=== PATIENT | female | born 1950 | race Caucasian/White ===

== ENCOUNTER 2022-09-12 08:32 | Outpatient (OUT) | payer MEDICARE, OTHER, SELFPAY ==
[2022-09-12 09:19] LABS: Basophils Absolute Auto 0.1 10^3/uL (0.0-0.1); Basophils Percent Auto 0.8 % (0.2-2.0); Eosinophils Percent Auto 0.2 % (0.9-7.0); Hematocrit 40.2 % (36.0-48.0); Hemoglobin 13.4 g/dL (12.0-16.0); Immature Granulocytes Abs Auto 0.03 10^3/uL (0.00-0.03); Immature Granulocytes Pct Auto 0.5 % (0.0-0.5); Lymphocytes Percent Auto 15.3 % (20.5-60.0); Mean Corpuscular HGB Conc 33.3 g/dL (29.9-35.2); Mean Corpuscular Hemoglobin 30.2 pg (26.7-34.0); Mean Corpuscular Volume 90.5 fL (81.0-99.0); Mean Platelet Volume 10.3 fL (9.5-13.5); Monocytes Absolute Auto 0.7 10^3/uL (0.3-0.8); Neutrophils Absolute Auto 4.8 10^3/uL (1.4-6.5); Neutrophils Percent Auto 73.2 % (43.0-75.0); Platelet Count 203 10^3/uL (150-450); Red Blood Count 4.44 10^6/uL (4.20-5.40); Red Cell Distribution Width 14.5 % (11.0-15.0); White Blood Count 6.6 10^3/uL (4.0-11.0)
--- NOTE | 2022-09-12 09:48 | MM_ITS ---
Patient: ALEXANDRA GARDNER Exam Date: 09/12/2022 : 1950 Gender:F Ordering : DR Danyell Kelly M.D. Admission #: [id number] Family : Order #: [id number] CLICK HERE TO VIEW EXAM RADIOLOGY REPORT PROCEDURE: MM TOMOSYNTHESIS SCREENING BI COMPARISON: MG MAMM SCREEN 3D [place] CAD, 05/22/2021. MG MAMM SCREEN [place] W CAD, 05/19/2018. MG MAMM SCREEN [place] W CAD, 05/16/2017. MG MAMM [place] SCRN W CAD DIG, 03/28/2015. INDICATIONS: Screening Calculator Name NCI Breast Cancer Risk Assessment Tool 5 Year Breast Cancer Risk 2.20% Lifetime Breast Cancer Risk 5.00% Personal Breast Cancer No Personal Ovarian Cancer No Treatments None Family Cancers None LOCATION: [facility] BREAST COMPOSITION: Scattered areas fibroglandular density. FINDINGS: DIAGNOSTIC CATEGORY 2--BENIGN FINDING: RIGHT BREAST: No significant suspicious finding. Stable asymmetries and lymph node. No significant change has occurred. LEFT BREAST: No significant suspicious finding. No significant change has occurred. RECOMMENDATIONS: ROUTINE MAMMOGRAM AND CLINICAL EVALUATION IN 12 MONTHS. PLEASE NOTE: A NORMAL MAMMOGRAM DOES NOT EXCLUDE THE POSSIBILITY OF BREAST CANCER. A CLINICALLY SUSPICIOUS PALPABLE LUMP SHOULD BE BIOPSIED. Dictated by: Valente Sandhu M.D. on 09/13/2022 at 15:37 Approved by: Valente Sandhu M.D. on 09/13/2022 at 15:41
--- NOTE | 2022-09-12 09:49 | XR_ITS ---
The [address] [address] Patient Name: ALEXANDRA GARDNER MRN: [id number] date: 1950 Sex: F Assigned Patient Location: [facility] Current Patient Location: [facility] Accession/Order Number: [id number] Exam Date: 09/12/2022 10:00 Report Date: 09/12/2022 11:01 At the request of: LAURITA MORALES Procedure: XR foot RT min 3V PROCEDURE: XR foot RT min 3V HISTORY: Pain In Right Foot M79.671 COMPARISON: None. FINDINGS: BONES:No fracture, acute abnormality, or significant arthropathy. SOFT TISSUES:Mild soft tissue swelling. EFFUSION:None visible. OTHER: Negative. XR/XR foot RT min 3V IMPRESSION: 1. No acute bone abnormality. Minimal degenerative changes. 2. Mild/moderate soft tissue swelling of uncertain etiology. Electronically authenticated by: FUENTES BARRETO Date: 09/12/2022 11:01
[2022-09-12 10:29] LABS: Alanine Aminotransferase 32 U/L (14-59); Albumin Level 3.8 g/dL (3.4-5.0); Alkaline Phosphatase 80 U/L (46-116); Anion Gap 11.9; Aspartate Amino Transferase 21 U/L (15-37); BUN Creatinine Ratio 13.2; Bilirubin Total 0.5 mg/dL (0.2-1.0); Calcium 9.1 mg/dL (8.5-10.1); Chloride 105 mmol/L (98-107); Chol HDL Ratio 3.3; Cholesterol 189 mg/dL (<=200); Estimated GFR (African America >60 (>=60); Estimated GFR (Non-African Ame >60 (>=60); Globulin 3.7 g/dL; Glucose 114 mg/dL (74-106); HDL Cholesterol 57 mg/dL (40-60); LDL Cholesterol Calculated 107.8 mg/dL; Potassium 3.9 mmol/L (3.5-5.1); Sodium 137 mmol/L (136-145); Thyroid Stimulating Hormone 1.772 uIU/mL (0.358-3.740); Total Protein 7.5 g/dL (6.4-8.2); Triglycerides 121 mg/dL (<=150); VLDL CHOLESTEROL 24.2 mg/dL
[2022-09-12 10:34] LABS: Free T4 1.07 ng/dL (0.76-1.46)
== END 2022-09-12 08:33 | disposition home or self-care (01) ==
LOC: MAMMO 08:32
PROVIDERS: PCP Family Medicine; Visit Provider Family Medicine
DX: Z12.31 Encounter for screening mammogram for malignant neoplasm of breast (principal); E03.9 Hypothyroidism, unspecified; E78.5 Hyperlipidemia, unspecified; M79.671 Pain in right foot
CPT/HCPCS: 36415; 73630; 77063; 77067; 80053; 80061; 84439; 84443; 85025

== ENCOUNTER 2022-09-26 14:48 | Outpatient (OUT) | payer MEDICARE, OTHER, SELFPAY ==
--- NOTE | 2022-09-26 | XR_ITS ---
The [address] [address] Patient Name: ALEXANDRA GARDNER MRN: [id number] date: 1950 Sex: F Assigned Patient Location: [facility] Current Patient Location: Accession/Order Number: [id number] Exam Date: 09/26/2022 15:19 Report Date: 09/27/2022 10:33 At the request of: ADA ROLLINS Procedure: XR foot RT min 3V PROCEDURE: XR foot RT min 3V DATE: 09/26/2022 2:19 PM CDT COMPARISONS: 09/12/2022 CLINICAL INDICATION: RIGHT FOOT PAIN FINDINGS: There is no evidence of fractures or other acute osseous abnormalities. There is small spur off the posterior inferior os calcis, stable. XR/XR foot RT min 3V IMPRESSION: Right foot radiographs show no evidence of acute abnormalities. Stable heel spur is noted. Electronically authenticated by: BOLA SCHWARTZ Date: 09/27/2022 10:33
== END 2022-09-26 14:49 | disposition home or self-care (01) ==
LOC: RAD 14:49
PROVIDERS: PCP Family Medicine; Visit Provider Podiatrist Foot & Ankle Surgery
DX: M79.671 Pain in right foot (principal)
CPT/HCPCS: 73630

== ENCOUNTER 2022-10-10 08:20 | Outpatient (RCR) | payer MEDICARE, OTHER, SELFPAY | END 2022-10-11 11:34 | disposition home or self-care (01) | LOC: PT 08:20 | PROVIDERS: PCP Family Medicine; Visit Provider Podiatrist Foot & Ankle Surgery | DX: M19.071 Primary osteoarthritis, right ankle and foot (principal); M79.671 Pain in right foot; R26.89 Other abnormalities of gait and mobility; R26.9 Unspecified abnormalities of gait and mobility | CPT/HCPCS: 97110; 97161 ==

== ENCOUNTER 2023-02-09 11:00 | Emergency (ER) | payer MEDICARE, OTHER, SELFPAY ==
[2023-02-09 11:08] VITALS: BP 119/64; PULSE 74; RESP 18; TEMP 36.5; O2SAT 96; BMI 33.4
--- NOTE | 2023-02-09 11:16 | XR_ITS ---
The [address] [address] Patient Name: ALEXANDRA GARDNER MRN: [id number] date: 1950 Sex: F Assigned Patient Location: ED[facility]MAIN Current Patient Location: ED[facility]MAIN Accession/Order Number: [id number] Exam Date: 02/09/2023 11:30 Report Date: 02/09/2023 12:30 At the request of: MELITA LAGOS Procedure: XR knee LT 4V EXAM: XR knee LT 4V HISTORY: Pain COMPARISON: None FINDINGS: There are mild degenerative changes with joint space narrowing, subchondral sclerosis and osteophyte formation. There is no evidence of an acute fracture, subluxation or bony destruction. Chondrocalcinosis of the menisci is observed. XR/XR knee LT 4V IMPRESSION: Mild degenerative joint disease. Electronically authenticated by: BEBO DURHAM Date: 02/09/2023 12:30
[2023-02-09] MEDS: KETOROLAC TROMETHAMINE 30 MG/ML VIAL 15 MG IM (13:08)
[2023-02-09 13:17] VITALS: BP 148/86; PULSE 78; RESP 18
--- NOTE | 2023-02-10 07:34 | ED_ITS ---
HPI - General Adult General Chief complaint: Extremity Injury, Lower Stated complaint: LOWER EXTREMITY INJURY R KNEE Time Seen by Provider: 02/09/23 11:27 Source: patient Mode of arrival: walk-in Limitations: no limitations History of Present Illness HPI narrative: The patient is coming to the ER with a left knee pain that started hurting when she was trying to get into the bathroom she mentioned that her knee buckled. She had no fall no other injuries and she is able to walk but still with pain in her knee no other complaints Related Data Previous Rx's Medication Instructions Recorded meloxicam 7.5 mg tablet 7.5 mg PO DAILY PRN pain #10 tabs 02/09/23 Allergies Allergy/AdvReac Type Severity Reaction Status Date / Time No Known Drug Allergies Allergy Verified 02/09/23 11:10 Review of Systems ROS Status of ROS 10 or more systems reviewed and unremark able except as noted in history and below Exam Narrative Exam Narrative: Nurses notes and vital signs reviewed and patient is not hypoxic. General: Well-appearing and in no apparent distress. Skin: Warm, dry, no pallor noted. No rash. Head: Normocephalic, atraumatic. Neck: Supple, non-tender. Eye: Pupils are equal, round and EOMI. No scleral icterus. Ears, Nose, Mouth, and Throat: TM are clear, no nasal mucosal hypertrophy. Oral mucosa is moist, no posterior oropharynx erythema, uvula is mid-line Cardiovascular: Regular Rate and Rhythm without murmur, gallop or rub. Respiratory: No accessory muscle use or respiratory distress. Lungs are clear to auscultation, no wheezing, rales or rhonchi Chest Wall: no tenderness Back: No midline thoracic or lumbar vertebral tenderness. No CVA tenderness Musculoskeletal: Right knee examination benign left knee examination showed that the patient have tenderness on flexion of the knee but other than this the patient have no significant pathology. GI: Abdomen is soft, non-distended. Normal bowel sounds. No masses appreciated. No tenderness to palpation. No rebound, guarding, or rigidity noted. Neurological: A&O x4. No cranial nerve dysfunction observed. No truncal ataxia. Moves all extremities. Sensation intact. Psychiatric: Cooperative and interactive. Normal mood and affect. Constitutional Vital Signs, click to edit/add: Last Vital Signs Temp 97.7 F 02/09/23 11:08 Pulse 78 02/09/23 13:17 Resp 18 02/09/23 13:17 BP 148/86 H 02/09/23 13:17 Pulse Ox 96 02/09/23 11:08 O2 Del Method Room Air 02/09/23 11:08 Course Vital Signs Vital signs: Vital Signs Temperature 97.7 F 02/09/23 11:08 Pulse Rate 74 02/09/23 11:08 Respiratory Rate 18 02/09/23 11:08 Blood Pressure 119/64 02/09/23 11:08 Pulse Oximetry 96 02/09/23 11:08 Oxygen Delivery Method Room Air 02/09/23 11:08 Temperature 97.7 F 02/09/23 11:08 Pulse Rate 78 02/09/23 13:17 Respiratory Rate 18 02/09/23 13:17 Blood Pressure 148/86 H 02/09/23 13:17 Pulse Oximetry 96 02/09/23 11:08 Oxygen Delivery Method Room Air 02/09/23 11:08 Medical Decision Making MDM Narrative Medical decision making narrative: The patient x-ray showed no acute pathology and the patient will be treated as possible knee sprain with knee immobilizer and Mobic for pain Patient referred to orthopedic as outpatient The patient is to follow up with primary care physician in next 2-3 days or to return to the emergency department should any of the signs or symptoms worsen or new symptoms develop. The patient agrees with the following Diagnosis and Treatment plan and the patient will be discharged home. Discharge Plan Discharge Chief Complaint: Extremity Injury, Lower Clinical Impression: Acute knee pain Qualifiers: Laterality: left Qualified Code(s): M25.562 - Pain in left knee Patient Disposition: Home, Self-Care Time of Disposition Decision: 12:59 Condition: Good Prescriptions / Home Meds: New meloxicam 7.5 mg tablet 7.5 mg PO DAILY PRN (Reason: pain ) Qty: 10 0RF Instructions: Knee Pain (ED) Stand Alone Forms: Portal Instructions Referrals: Danyell Kelly MD [Primary Care Provider] - 1 week Valente Marino MD [Physician] - 1 week Discharge Date/Time: 02/09/23 13:19
== END 2023-02-09 13:19 | disposition home or self-care (01) ==
PROVIDERS: Emergency Provider Emergency Medicine; PCP Family Medicine
DX: M25.562 Pain in left knee (principal)
CPT/HCPCS: 73564; 96372; 99284

== ENCOUNTER 2023-04-01 09:32 | Outpatient (OUT) | payer MEDICARE, OTHER, SELFPAY ==
--- NOTE | 2023-04-01 | XR_ITS ---
The [address] [address] Patient Name: ALEXANDRA GARDNER MRN: [id number] date: 1950 Sex: F Assigned Patient Location: Current Patient Location: Accession/Order Number: [id number] Exam Date: 04/01/2023 09:38 Report Date: 04/01/2023 10:11 At the request of: FUENTES BURTON Procedure: XR knee RT 4V EXAM: XR knee RT 4V HISTORY: RIGHT KNEE PAIN COMPARISON: None. TECHNIQUE: 4 views FINDINGS: No acute fracture or dislocation. Mild degenerative change of the lateral compartment the knee joint. Unremarkable soft tissues. XR/XR knee RT 4V IMPRESSION: Mild degenerative changes as above. Electronically authenticated by: PETRA HINES Date: 04/01/2023 10:11
--- OUTSIDE RECORDS SUMMARY | 2023-04-01 09:37 | XMS_ITS | CCD ---
Author Name Unknown Address [address] [facility] [address] [place] [address] Organization [facility] Care Team Providers Care Wildlife Manager Name Role Phone MD Cy Sears Attending Provider [phone] MD Laurita Morales Primary Care Provider LAURITA MORALES Primary Care Physician DO Luis Gutierrez Attending Provider Capri ROA Attending Unavailable SALAM, Capri Attending Unavailable SALAM, Capri Attending Unavailable MORALES, DR LAURITA Solis Attending Unavailable MORALES, DR LAURITA Solis Admitting Unavailable MORALES, DR LAURITA Solis Primary Care Unavailable ESTEVAN, DR FUENTES Salas Consulting Unavailable MORALES, DR LAURITA Solis Consulting Unavailable MORALES, DR LAURITA Solis Attending Unavailable MORALES, DR LAURITA Solis Admitting Unavailable MORALES, DR LAURITA Solis Primary Care Unavailable MORALES, DR LAURITA Solis Consulting Unavailable SALAM, CAPRI Consulting Unavailable SALAM, CAPRI Admitting Unavailable SALAM, CAPRI Attending Unavailable MORALES, DR LAURITA Solis Primary Care Unavailable MORALES, DR LAURITA Solis Primary Care Unavailable MORALES, DR LAURITA Solis Admitting Unavailable MORALES, DR LAURITA Solis Consulting Unavailable MORALES, DR LAURITA Solis Attending Unavailable MORALES, DR LAURITA Solis Primary Care Unavailable ESEQUIEL, DR RADHA Whitfield Admitting Unavailable IRAHETA, DR RADHA Whitfield Attending Unavailable IRAHETA, DR RADHA Whitfield Consulting Unavailable MORALES, DR LAURITA Solis Attending Unavailable MORALES, DR LAURITA Solis Admitting Unavailable MORALES, DR LAURITA Solis Consulting Unavailable MORALES, DR LAURITA Solis Primary Care Unavailable MORALES, DR LAURITA Solis Primary Care Unavailable IRAHETA, DR RADHA Whitfield Attending Unavailable IRAHETA, DR RADHA Whitfield Admitting Unavailable MCNALLYROBERTO MANE Consulting Unavailable SALAM, CAPRI Admitting Unavailable MORALES, DR LAURITA Solis Primary Care Unavailable SALAM, CAPRI Attending Unavailable MURDR LUIS WONG Consulting Unavailable MORALES, DR LAURITA Solis Primary Care Unavailable MORALES, DR LAURITA Solis Admitting Unavailable MORALES, DR LAURITA Solis Attending Unavailable MARION CENTER, DR LONNY Wiggins Consulting Unavailable MORALES, DR LAURITA Solis Consulting Unavailable MORALES, DR LAURITA Solis Primary Care Unavailable IRAHETA, DR RADHA Whitfield Attending Unavailable ESEQUIEL, DR RADHA Whitfield Consulting Unavailable ESEQUIEL, DR RADHA Whitfield Admitting Unavailable SABINA STONE Consulting Unavailable MORALES, DR LAURITA Solis Primary Care Unavailable ESEQUIEL, DR RADHA Whitfield Admitting Unavailable ESEQUIEL, DR RADHA Whitfield Attending Unavailable ROBERTO MCNALLY Consulting Unavailable MORALES, DR LAURITA Solis Primary Care Unavailable IRAHETA, DR RADHA Whitfield Attending Unavailable IRAHETA, DR RADHA Whitfield Admitting Unavailable MORALES, DR LAURITA Solis Primary Care Unavailable IRAHETA, DR RADHA Whitfield Admitting Unavailable IRAHETA, DR RADHA Whitifeld Attending Unavailable IRAHETA, DR RADHA Whitfield Consulting Unavailable MCNALLY, ROBERTO Consulting Unavailable ULI, ROBERTO Consulting Unavailable MORALES, DR LAURITA Solis Primary Care Unavailable IRAHETA, DR RADHA Whitfield Attending Unavailable ESEQUIEL, DR RADHA Whitfield Admitting Unavailable MORALES, DR LAURITA Solis Primary Care Unavailable ESEQUIEL, DR RADHA Whitfield Attending Unavailable ESEQUIEL, DR RADHA Whitfield Admitting Unavailable SALAM, CAPRI Admitting Unavailable MORALES, DR LAURITA Solis Primary Care Unavailable SALAM, CAPRI Attending Unavailable SALAM, CAPRI Consulting Unavailable MORALES, DR LAURITA Solis Primary Care Unavailable MISC, DR HIDALGO Admitting Unavailable MISC, DR HIDALGO Attending Unavailable MISC, DR HIDALGO Consulting Unavailable Luis Gutierrez Admitting Unavailable Laurita Morales Primary Care Unavailable Luis Gutierrez Attending Unavailable DeRamish, Cy Attending Unavailable Cy Sears Admitting Unavailable Laurita Morales Primary Care Unavailable Morales, Laurita Solis Primary Care Unavailable Luis Gutierrez Attending Unavailable Luis Gutierrez Admitting Unavailable Morales Laurita Unavailable Allergies Allergy Classification Reported Allergen(s) Allergy Type Date of Onset Reaction(s) Facility (4 sources) [facility] Allergy Unknown [employer] Other Medications Current Medications Medication Drug Class(es) Dates Sig (Normalized) Sig (Original) ALPRAZolam 0.5 mg oral tablet (7 sources) Benzodiazepine Start: 02-27-2023 Start: 09-03-2022 ALPRAZolam 0.5 mg TAKE ONE TABLET BY MOUTH TWICE A DAY NEEDED FOR 30 DAYS for 30 Aug, Active Start: 03-01-2022 take 1 tablet by maia th twice daily as needed ALPRAZolam 0.5 mg TAKE ONE TABLET BY MOUTH TWICE A DAY NEEDED for 30 Feb, Active Start: 05-26-2021 take 0.5 mg by mouth twice shakira ly Alprazolam Active 0.5 MG PO Twice daily May 26, 2021 2:53pm Start: 01-28-2020 alprazolam Ora l, Refills(s) 0 Start Date: 01/28/20 Status: Ordered baclofen 10 mg oral tablet (3 sources) gamma-Aminobutyric Acid-ergic Agonist Start: 05-26-2021 take 10 mg by mouth twice daily Baclofen Active 10 MG PO Twice daily May 26, 2021 2:53pm Start: 01-28-2020 baclofen Oral, TID, Refills(s) 0, Muscle pain Start Date: 01/28/20 Status: Ordered calcium citrate 950 mg oral tablet (2 sources) Start: 01-28-2020 take 1 mg by mouth twice daily calcium (as calcium citrate) 200 mg oral tablet mg tab(s), Oral, BID, Refills(s) 0, Prophylaxis Start Date: 01/28/20 Status: Ordered diclofenac sodium 75 mg delayed release oral tablet (2 sources) Nonsteroidal Anti-inflammatory Drug Start: 05-26-2021 take 75 mg by mouth twice daily Diclofenac Sodium Active 75 MG PO Twice daily May 26, 2021 2:53pm take 1 tablet by maia th twice daily at mealtime as needed Diclofenac Potassium 50 MG 1 tablet with food or milk as needed Orally Twice a day Active escitalopram 20 mg oral tablet (7 sources) Serotonin Reuptake Inhibitor Start: 05-26-2021 take 20 mg by mouth once daily in the morning Escitalopram Oxalate Active 20 MG PO Every morning May 26, 2021 2:53pm Start: 01-28-2020 escitalopram O ral, Daily, Refills(s) 0 Start Date: 01/28/20 Status: Ordered Eye Vitamin (1 source) Start: 05-26-2021 take 1 tablet by mouth once daily Eye Vitamin Active 1 TAB PO Daily May 26, 2021 2:53pm folic acid 1 mg oral tablet (2 sources) Start: 07-25-2020 take 1 tablet by mouth once daily Folate 1 mg Tab 1 mg = 1 tab(s), Oral, Daily, # 30 tab(s), Refills(s) 0, Pharmacy: [id number], 150, cm, 07/25/20 14:29:00 EDT, Height/Length Dosing, 69.9, kg, 07/25/20 14:29:00 EDT, Weight Dosing Start Date: 07/25/20 Status: Ordered Glucoamine (1 source) Start: 05-26-2021 take 1 mg by mouth twice daily Glucoamine Active MG PO Twice daily May 26, 2021 2:53pm glucosamine 500 mg oral tablet (2 sources) Start: 01-28-2020 take 1 tablet by mouth three times daily glucosamine 500 mg oral tablet 500 mg = 1 tab(s), Oral, TID, # 90 tab(s), Refills(s) 0 Start Date: 01/28/20 Status: Ordered levothyroxine sodium 0.075 mg oral tablet (7 sources) l-Thyroxi ne Start: 05-26-2021 take 75 ug by mouth once daily in the morning Levothyroxine Active 75 MCG PO Every morning May 26, 2021 2:53pm Start: 01-28-2020 levothyroxine Daily, Refills(s) 0 Start Date: 01/28/20 Status: Ordered take 1 tablet by [facility] once daily Levothyroxine Sodium 75 MCG TAKE ONE TABLET BY MOUTH ONCE DAILY for 30 Active Magnesium (1 source) Start: 05-26-2021 take 400 mg by mouth once daily Magnesium Active 400 MG PO Daily May 26, 2021 2:53pm methocarbamol 750 mg oral tablet (1 source) Muscle Relaxant Methocarbamol 75 0 MG Orally Four times a day Active Multivitamin (Multi-Day) Tablet (1 source) Start: 05-26-2021 take 1 tablet by mouth once daily Multivitamin (Multi-Day) Tablet Active 1 TAB PO Daily May 26, 2021 2:53pm NuLYTELY [place] oral powder for reconstitution (1 source) Start: 01-28-2020 take 1 dose by mouth once NuLYTELY [place] oral powder for reconstitution See Instructions, 1 EA, Refill(s) 0, PER PHYS INSRTUCTIONS, [facility], 150, cm, 01/28/20 10:49:00 EST, Height/Length Dosing, 69.9, kg, 01/28/20 10:49:00 EST, Weight Dosing Start Date: 01/28/20 Status: Ordered omeprazole 40 mg delayed release oral capsule (7 sources) Proton Pump Inhibitor Start: 05-26-2021 take 40 mg by mouth once daily at bedtime Omeprazole Active 40 MG PO Daily at bedtime May 26, 2021 2:53pm Start: 01-28-2020 omeprazole Ora l, Daily, Refills(s) 0, Control of stomach acid Start Date: 01/28/20 Status: Ordered Omeprazole 20 MG Orally Once a day Active polyethylene glycol 3350 923183 mg / potassium chloride 1480 mg / sodium bicarbonate 5720 mg / sodium chloride 34866 mg powder for oral solution (1 source) Osmotic Laxative Start: 01-28-2020 take 1 dose by mouth once NuLYTELY [place] oral powder for reconstitution See Instructions, 1 EA, Refill(s) 0, PER PHYS INSRTUCTIONS, [facility], 150, cm, 01/28/20 10:49:00 EST, Height/Length Dosing, 69.9, kg, 01/28/20 10:49:00 EST, Weight Dosing Start Date: 01/28/20 Status: Ordered simvastatin 40 mg oral tablet (7 sources) HMG-CoA Reductase Inhibitor Start: 05-26-2021 take 40 mg by mouth once daily at bedtime Simvastatin Active 40 MG PO Daily at bedtime May 26, 2021 2:53pm Start: 01-28-2020 simvastatin Or al, Refills(s) 0, High cholesterol Start Date: 01/28/20 Status: Ordered sulfaSALAzine 500 mg oral tablet (7 sources) Aminosalicylate Start: 05-26-2021 take 500 mg by mouth four times daily Sulfasalazine Active 500 MG PO Four times daily May 26, 2021 2:53pm Start: 05-10-2021 take 2 tablets by mo uth three times daily sulfasalazine 500 mg Tab 1,000 mg = 2 tab(s), Oral, TID, # 180 tab(s), Refills(s) 11, Pharmacy: [facility]/pharmacy #[id number], 150, cm, 05/10/21 11:13:00 EDT, Height/Length Dosing, 71, kg, 05/10/21 11:13:00 EDT, Weight Dosing Start Date: 05/10/21 Status: Ordered take 1 tablet by maia th every twenty-four hours Vitamin D And Calcium (1 source) Start: 05-26-2021 Vitamin D And Calcium Active PO Twice daily May 26, 2021 2:53pm Completed/Discontinued Medications Medication Drug Class(es) Dates Sig (Normalized) Sig (Original) benzonatate 100 mg oral capsule (1 source) Non-narcotic Antitussive Start: 09-19-2013 take 1 capsule by mouth every eight hours as needed for cough Benzonatate 100 MG 1 capsule as needed Orally every 8 hours as needed for cough for 5 days Sep, Not-Taking clarithromycin 500 mg oral tablet (1 source) Macrolide Antimicrobial Start: 09-19-2013 take 1 tablet by mouth twice daily Biaxin 500 MG 1 tablet Orally Twice a day for 10 day(s) Sep, Not-Taking Problems Active Problems Problem Classification Problem Date Documented Date Episodic/Chronic Abdominal pain (3 sources) Abdominal pain; Translations: [Unspecified abdominal pain] Episodic Anxiety disorders (11 sources) Mixed anxiety and depressive disorder; Translations: [Other specified anxiety disorders] Onset: 02-13-2018 Chronic Disorders of lipid metabolism (11 sources) Hyperlipidemia, unspecified; Translations: [Hyperlipoproteinemia] Onset: 09-27-2021 Chronic Esophageal disorders (8 sources) Gastroesophageal reflux disease; Translations: [Gastro-esophageal reflux disease without esophagitis] Onset: 07-10-2018 Chronic Noninfectious gastroenteritis (7 sources) Chronic diarrhea; Translations: [Noninfective gastroenteritis and colitis, unspecified] Episodic Nonmalignant breast conditions (3 sources) Breast signs and symptoms; Translations: [Other signs and symptoms in breast] Episodic Osteoarthritis (3 sources) Osteoarthritis; Translations: [Unspecified osteoarthritis, unspecified site] Onset: 02-13-2018 Chronic Other circulatory disease (3 sources) Elevated blood-pressure reading without diagnosis of hypertension; Translations: [Elevated blood-pressure reading, without diagnosis of hypertension] Episodic Other connective tissue disease (4 sources) Other muscle spasm; Translations: [OTHER MUSCLE SPASM] Onset: 01-18-2022 Episodic Other connective tissue disease (2 sources) Pain in right foot Episodic Other connective tissue disease (1 source) Iliotibial band syndrome, left leg Episodic Other lower respiratory disease (3 sources) Lung field abnormal; Translations: [Other nonspecific abnormal finding of lung field] Episodic Other nervous system disorders (3 sources) Carpal tunnel syndrome; Translations: [Carpal tunnel syndrome, unspecified upper limb] Onset: 02-13-2018 Chronic Other nutritional; endocrine; and metabolic disorders (4 sources) Body mass index 30+ - obesity; Translations: [Body mass index (BMI) 35.0-35.9, adult] Chronic Other nutritional; endocrine; and metabolic disorders (3 sources) Obese class II; Translations: [Body mass index (BMI) 35.0-35.9, adult] Chronic Other screening for suspected conditions (not mental disorders or infectious disease) (5 sources) Encounter for screening mammogram for malignant neoplasm of breast; Translations: [ENC SCR MAMMO MALIG NEOPLASM BREAST] Onset: 05-22-2021 Episodic Other upper respiratory disease (3 sources) Seasonal allergic rhinitis; Translations: [Other seasonal allergic rhinitis] Onset: 02-13-2018 Chronic Regional enteritis and ulcerative colitis (8 sources) Chronic ulcerative pancolitis; Translations: [Ulcerative (chronic) pancolitis without complications] Onset: 05-10-2021 Chronic Spondylosis; intervertebral disc disorders; other back problems (6 sources) Spondylosis without myelopathy or radiculopathy, lumbar region; Translations: [Other intervertebral disc degeneration, lumbar region] Onset: 09-06-2021 Chronic Substance-related disorders (7 sources) Nicotine dependence, cigarettes, uncomplicated; Translations: [Tobacco user] Onset: 03-23-2021 Chronic Thyroid disorders (16 sources) Nontoxic goiter, unspecified; Translations: [Hypothyroidism, unspecified] Onset: 02-13-2018 Chronic Unclassified (4 sources) LOW BACK PAIN, UNSPECIFIED; Translations: [LOW BACK PAIN, UNSPECIFIED] Onset: 09-27-2021 Unclassified (1 source) CONTACT W/AND (SUSP) EXPOS COVID-19; Translations: [CONTACT W/AND (SUSP) EXPOS COVID-19] Onset: 09-25-2021 Unclassified (1 source) E04.9 - Nontoxic goiter, unspecified; Translations: [E04.9 - Nontoxic goiter, unspecified] Onset: 05-31-2021 Unclassified (1 source) Z01.812 - Encounter for preprocedural laboratory examination; Translations: [Z01.812 - Encounter for preprocedural laboratory examination] Onset: 05-26-2021 Unclassified (1 source) K22.9 - Disease of esophagus, unspecified; Translations: [K22.9 - Disease of esophagus, unspecified] Onset: 05-04-2021 Past or Other Problems Problem Classification Problem Date Documented Da te Episodic/Chronic Other circulatory disease (3 sources) Orthostatic hypotension; Translations: [Orthostatic hypotension] Onset: 02-13-2018 Episodic Other connective tissue disease (3 sources) Pain in right foot; Translations: [Pain in right foot] Onset: 02-13-2018 Episodic Other lower respiratory disease (4 sources) Other nonspecific abnormal finding of lung field; Translations: [OTH NONSPECIFIC ABN FIND LNG FIELD] Onset: 04-01-2021 Episodic Other lower respiratory disease (3 sources) Dyspnea; Translations: [Other forms of dyspnea] Onset: 06-17-2018 Episodic Other nervous system disorders (3 sources) Paresthesia; Translations: [Paresthesia of skin] Onset: 02-13-2018 Episodic Other non-traumatic joint disorders (1 source) Pain in left hip; Translations: [PAIN IN LEFT HIP] Onset: 04-21-2021 Episodic Spondylosis; intervertebral disc disorders; other back problems (7 sources) Muscle spasm of back; Translations: [Low back pain] Onset: 02-13-2018 Episodic Unclassified (1 source) LOW BACK PAIN, UNSPECIFIED; Translations: [LOW BACK PAIN, UNSPECIFIED] Onset: 09-26-2021 Results Test Name Value Interpretation Reference Range Facility CBC AUTO DIFFon 11-21-2021 BASO # 0.1 103/ul Normal 0.0-0.1 [facility] Comment on above: Performed By: #### C BC #### [facility] [address] [place] [address] Dr. Scooby Irvin Basophils/100 WBC (Bld) 0.5 % Normal 0.2-2.0 [facility] Comment on above: Performed By: #### C BC #### [facility] [address] [place] [address] Dr. Scooby Irvin EO # 0.0 103/ul Normal 0.0-0.7 [facility] Comment on above: Performed By: #### C BC #### [facility] [address] [place] [address] Dr. Scooby Irvin Eosinophils/100 WBC (Bld) 0.1 % Critically low 0.9-7.0 [facility] Comment on above: Performed By: #### C BC #### [facility] [address] [place] [address] Dr. Scooby Irvin Erythrocyte distribution width (RBC) [Ratio] 15.1 % Critically high 11.0-15.0 [facility] Comment on above: Performed By: #### C BC #### [facility] [address] [place] [address] Dr. Scooby Irvin Hematocrit (Bld) [Volume fraction] 39.4 % Normal 36.0-48.0 [facility] Comment on above: Performed By: #### C BC #### [facility] [address] [place] [address] Dr. Scooby Irvin Hemoglobin (Bld) [Mass/Vol] 12.6 g/dL Normal 12.0-16.0 [facility] Comment on above: Performed By: #### C BC #### [facility] [address] [place] [address] Dr. Scooby Irvin IG # 0.05 10e3/ul Critically high 0.00-0.03 [facility] Comment on above: Performed By: #### C BC #### [facility] [address] [place] [address] Dr. Scooby Irvin IG % 0.5 % Normal 0.0-0.5 [facility] Comment on above: Performed By: #### C BC #### [facility] [address] [place] [address] Dr. Scooby Irvin LYMPH # 1.3 103/ul Normal 1.2-3.8 [facility] Comment on above: Performed By: #### C BC #### [facility] [address] [place] [address] Dr. Scooby Irvin Lymphocytes/100 WBC (Bld) 13.2 % Critically low 20.5-60.0 [facility] Comment on above: Performed By: #### C BC #### [facility] [address] [place] [address] Dr. Scooby Irvin MANUAL DIFF REQ NO Normal [facility] Comment on above: Performed By: #### C BC #### [facility] [address] [place] [address] Dr. Scooby Irvin MCH (RBC) [Entitic mass] 30.0 pg Normal 26.7-34.0 [facility] Comment on above: Performed By: #### C BC #### [facility] [address] [place] [address] Dr. Scooby Irvin MCHC (RBC) [Mass/Vol] 32.0 g/dL Normal 29.9-35.2 [facility] Comment on above: Performed By: #### C BC #### [facility] [address] [place] [address] Dr. Scooby Irvin MCV (RBC) [Entitic vol] 93.8 fL Normal 81.0-99.0 [facility] Comment on above: Performed By: #### C BC #### [facility] [address] [place] [address] Dr. Scooby Irvin MONO # 0.7 103/ul Normal 0.3-0.8 [facility] Comment on above: Performed By: #### C BC #### [facility] [address] [place] [address] Dr. Scooby Irvin Monocytes/100 WBC (Bld) 7.2 % Normal 1.7-12.0 [facility] Comment on above: Performed By: #### C BC #### [facility] [address] [place] [address] Dr. Scooby Irvin NEUT # 7.5 103/ul Critically high 1.4-6.5 [facility] Comment on above: Performed By: #### C BC #### [facility] [address] [place] [address] Dr. Scooby Irvin Neutrophils/100 WBC (Bld) 78.5 % Critically high 43.0-75.0 [facility] Comment on above: Performed By: #### C BC #### [facility] [address] [place] [address] Dr. Scooby Irvin Platelet mean volume (Bld) [Entitic vol] 9.9 fL Normal 9.5-13.5 [facility] Comment on above: Performed By: #### C BC #### [facility] [address] [place] [address] Dr. Scooby Irvin PLT 230 103/ul Normal 150-450 [facility] Comment on above: Performed By: #### C BC #### [facility] [address] [place] [address] Dr. Scooby Irvin RBC 4.20 106/ul Normal 4.20-5.40 [facility] Comment on above: Performed By: #### C BC #### [facility] [address] [place] [address] Dr. Scooby Irvin WBC 9.5 103/ul Normal 4.0-11.0 [facility] Comment on above: Performed By: #### C BC #### [facility] [address] [place] [address] Dr. Scooby Irvin PROF 14(COMP METB)on 022 Albumin [Mass/Vol] 3.9 g/dL Normal 3.4-5.0 [facility] Comment on above: Performed By: #### C BC #### [facility] [address] [place] [address] Dr. Scooby Irvin Albumin/Globulin [Mass ratio] 1.0 {ratio} Normal [facility] Comment on above: Performed By: #### C BC #### [facility] [address] [place] [address] Dr. Scooby Irvin ALP [Catalytic activity/Vol] 87 U/L Normal 46-116 [facility] Comment on above: Performed By: #### C BC #### [facility] [address] [place] [address] Dr. Scooby Irvin ALT [Catalytic activity/Vol] 29 U/L Normal 14-59 [facility] Comment on above: Performed By: #### C BC #### [facility] [address] [place] [address] Dr. Scooby Irvin Anion gap [Moles/Vol] 14.1 mmol/L Normal [facility] Comment on above: Performed By: #### C BC #### [facility] [address] [address] [address] Scooby Irvin AST [Catalytic activity/Vol] 38 U/L Critically high 15-37 [facility] Comment on above: Performed By: #### C BC #### [facility] [address] [address] [address] Scooby Irvin Bilirubin [Mass/Vol] 0.5 mg/dL Normal 0.2-1.0 [facility] Comment on above: Performed By: #### C BC #### [facility] [address] [address] [address] Scooby Irvin Calcium [Mass/Vol] 9.2 mg/dL Normal 8.5-10.1 [facility] Comment on above: Performed By: #### C BC #### [facility] [address] [address] [address] Scooby Irvin Chloride [Moles/Vol] 102 mmol/L Normal 98-107 [facility] Comment on above: Performed By: #### C BC #### [facility] [address] [address] [address] Scooby Irvin CO2 [Moles/Vol] 25.7 mmol/L Normal 21.0-32.0 [facility] Comment on above: Performed By: #### C BC #### [facility] [address] [address] [address] Scooby Irvin Creatinine [Mass/Vol] 0.76 mg/dL Normal 0.55-1.02 [facility] Comment on above: Performed By: #### C BC #### [facility] [address] [address] [address] Scooby Irvin EGFR-AF HAITIAN >60 Normal >=60 [facility] Comment on above: Performed By: #### C BC #### [facility] [address] [address] [address] Scooby Irvin EGFR-NON AF HAITIAN >60 Normal >=60 [facility] Comment on above: Performed By: #### C BC #### [facility] [address] [address] [address] Scooby Irvin Globulin (S) [Mass/Vol] 3.8 g/dL Normal [facility] Comment on above: Performed By: #### C BC #### [facility] [address] [address] [address] Scooby Irvin Glucose [Mass/Vol] 104 mg/dL Normal 74-106 [facility] Comment on above: Performed By: #### C BC #### [facility] [address] [address] [address] Scooby Irvin Potassium [Moles/Vol] 4.8 mmol/L Normal 3.5-5.1 [facility] Comment on above: Performed By: #### C BC #### [facility] [address] [address] Dr. Scooby Irvin Protein [Mass/Vol] 7.7 g/dL Normal 6.4-8.2 [facility] Comment on above: Performed By: #### C BC #### [facility] [address] [address] [address] Scooby Irvin Sodium [Moles/Vol] 137 mmol/L Normal 136-145 [facility] Comment on above: Performed By: #### C BC #### [facility] [address] [address] [address] Scooby Irvin Urea nitrogen [Mass/Vol] 9.0 mg/dL Normal 7.0-18.0 [facility] Comment on above: Performed By: #### C BC #### [facility] [address] [address] [address] Scooby Irvin Urea nitrogen/Creatinine [Mass ratio] 11.8 mg/mg Normal [facility] Comment on above: Performed By: #### C BC #### [facility] [address] [address] [address] Scooby Irvin Gastroenterology Office/Clin ic Noteon 11-11-2021 Gastroenterology Office/Clinic Note Chief Complaint 6 mon f/u HPI Staff Alexandra is a 71 y.o female here for 6 month follow up chronic pancolonic UC. She is currently taking sulfasalazine History of Present Illness Alexandra Cervantes is a 71-year-old white female presents today with a history of chronic pancolonic ulcerative colitis diagnosed more than 30 years ago. She was not on any treatment until 2020 when she was started on mesalamine, but it was declined by her insurance. She was switched to sulfasalazine and folic acid. Alexandra would like to know if there is any more affordable than the sulfasalazine. She reports that she was taking 4 tablets of sulfasalazine per day, but when she went to 6 tablets as prescribed, she became constipated. Since than she has decreased her dose back down to 4 tablets per day. She denies diarrhea or hematochezia. The only time she will have diarrhea is if she eats a large amount of nuts. She had blood work done for her thyroid and cholesterol at [place]. Alexandra denies having any other GI concerns at this time. 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 A CT scan and PET scan were both completed as well. Review of Systems PHQ Score Initial Depression Screen Score: 2 Constitutional: no fever, no chills, no sweats, no weakness Skin: no Jaundice, no rash, no lesions, no petechiae ENMT: no ear pain, no sore throat, no congestion, no hoarseness Respiratory: no shortness of breath, no cough, no orthopnea, no wheezing Cardiovascular: no chest pain, no palpitations, no edema Gastrointestinal: no nausea, no vomiting, no diarrhea, no constipation, no GI bleeding, no abdominal pain, no dysphagia, no bloating, no heartburn Genitourinary: no dysuria, no hematuria, no discharge, no pain Musculoskeletal: no back pain, no trauma Neurologic: no numbness, no sleeping problems Additional ROS info: Except as noted in the above Review of Systems and in the History of Present Illness all other systems have been reviewed and are negative or noncontributory. Physical Exam Vitals & Measurements HR: 78(Peripheral) RR: 16 BP: 148/74 HT: 59 in HT: 150 cm WT: 71.6 kg WT: 157.52 lb BMI: 31.82 Constitutional: Appearance: well developed Skin: Inspection: no rashes, ulcers, icterus, or telangiectasias. Eyes: Conjunctivae/lids: normal conjunctivae and lids. ENMT: Hearing: within normal limits. Lips/Teeth/Gums: normal oral mucosa Neck: Neck: normal motion, central trachea Respiratory: Percussion: thorax normoresonant. Auscultation: normal breath sounds; no rubs, wheezes, rale or ronchi. Cardiovascular: Auscultation: normal rhythm, S1 and S2; no rubs, murmurs or gallop. Peripheral: no edema Gastrointestinal/Ab domen: Abdomen: normal consistency and bowel sounds; no tenderness or masses. Liver/Spleen: normal size and consistency, not palpable. Rectal: deferred Musculoskeletal: Gait/station: normal gait Assessment/Plan 1. Chronic pancolonic ulcerative colitis (K51.00: Ulcerative (chronic) pancolitis without complications) This was diagnosed more than 30 years ago. She was not on any treatment until 2020. She was started on mesalamine, but declined by her insurance. She was started on sulfasalazine and folic acid. She achieved clinical remission. She has no more diarrhea or bleeding. We will repeat CBC and CMP every 6 months and repeat a colonoscopy now to assess for mucosal healing. The patient was advised to continue with sulfasalazine, folic acid, and to consider adding turmeric supplements daily. ATTESTATION: Documentation services were performed after patient or guardian consented to allow Uzma Phani Celeste to record this visit. JASS analysis specialist and provider reviewed before signing. JASS: Telma Kaufman Follow-up No qualifying data available Problem List/Past Medical History Ongoing Chronic pancolonic ulcerative colitis Historical No qualifying data Procedure/Surgical History Colonoscopy, flexible; with biopsy, single or multiple (02/16/2020), Colonoscopy. Medications alprazolam, Oral baclofen, Oral, TID calcium (as calcium citrate) 200 mg oral tablet, Oral, BID escitalopram, Oral, Daily Folate 1 mg Tab, 1 mg= 1 tab(s), Oral, Daily glucosamine 500 mg oral tablet, 500 mg= 1 tab(s), Oral, TID levothyroxine, Daily NuLYTELY [place] oral powder for reconstitution, See Instructions omeprazole, Oral, Daily simvastatin, Oral sulfasalazine 500 mg Tab, 1000 mg= 2 tab(s), Oral, TID, 11 refills Allergies No Known Allergies Social History Tobacco 10 or more cigarettes (1/2 pack or more)/day in last 30 days Tobacco Use:. Cigarettes, Yes, 11/08/2021 Family History Crohn's disease: Other Relationship. Diabetes mellitus type 1: Father. Immunizations Vaccine Date Status Comments influenza virus vaccine, inactivated - Not Given Patient Refuses influenza virus vaccine, inactivated 11/2020 Recorded Normal [facility] Comment on above: Result Comment: Elec tronically Signed By: Capri ROA MD\.br\Date and Time Signed: 11/11/21 10:45 EDT\.br\Electronically Co-Signed By: Telma Maya\.br\Date and Time Co-Signed: 11/08/21 10:54 EDT Ambulatory Visit Summaryon 0 11-08-2021 Ambulatory Visit Summary ALEXANDRA CERVANTES :1950 Visit Date:11/08/2021 Ambulatory Visit Instructions Your Diagnosis Chronic pancolonic ulcerative colitis Your Care Team Attending Physician - Capri ROA MD Primary Care Physician - LAURITA MORALES MD This Is Your Medications List Contact prescribing physician if questions or concerns alprazolam baclofen calcium citrate (calcium (as calcium citrate) 200 mg oral tablet) escitalopram folic acid (Folate 1 mg Tab) glucosamine (glucosamine 500 mg oral tablet) levothyroxine omeprazole polyethylene glycol 3350 with electrolytes (NuLYTELY [place] oral powder for reconstitution) simvastatin sulfasalazine (sulfasalazine 500 mg Tab) Procedures Performed Colonoscopy, flexible; with biopsy, single or multiple (02/16/2020), Colonoscopy. Discharge Vitals Heart Rate (Peripheral) 78 Respiratory Rate 16 Blood Pressure 148/74 Height 59 in Height 150 cm Weight 157.52 lb Weight 71.6 kg BMI 31.82 Medications What How Much When Why Instructions Unchanged alprazolam By Mouth Contact prescribing physician if questions or concerns Unchanged baclofen By Mouth 3 times a day Contact prescribing physician if questions or concerns Unchanged calcium citrate (calcium (as calcium citrate) 200 mg oral tablet) By Mouth 2 times a day Contact prescribing physician if questions or concerns Unchanged escitalopram By Mouth Every day Contact prescribing physician if questions or concerns Unchanged folic acid (Folate 1 mg Tab) 1 Tablets By Mouth Every day Chronic pancolonic ulcerative colitis Contact prescribing physician if questions or concerns Unchanged glucosamine (glucosamine 500 mg oral tablet) 1 Tablets By Mouth 3 times a day Contact prescribing physician if questions or concerns Unchanged levothyroxine Every day Contact prescribing physician if questions or concerns Unchanged omeprazole By Mouth Every day Contact prescribing physician if questions or concerns Unchanged polyethylene glycol 3350 with electrolytes (NuLYTELY [place] oral powder for reconstitution) See instructions PER PHYS INSRTUCTIONS Contact prescribing physician if questions or concerns Unchanged simvastatin By Mouth Contact prescribing physician if questions or concerns Unchanged sulfasalazine (sulfasalazine 500 mg Tab) 2 Tablets By Mouth 3 times a day Contact prescribing physician if questions or concerns Medications and Immunizations Administered Not Given influenza virus vaccine, inactivated, Patient Refuses Allergies No Known Allergies Problems Ongoing - Any problem that you are currently receiving treatment for. Chronic pancolonic ulcerative colitis Normal [facility] LIPID PROFILEon 09-27-2021 CHOL-HDL RATIO NORM SEE BELOW Normal [facility] Comment on above: Result Comment: 3.3 - 4.4 LOW RISK 4.4 - 7.1 AVERAGE RISK 7.1 - 11.0 MODERATE RISK >11.0 HIGH RISK Performed By: #### C MP, LIPID #### [facility] [address] [address] [address] Scooby Irvin Cholesterol [Mass/Vol] 235 mg/dL Critically high <=200 [facility] Comment on above: Performed By: #### C MP, LIPID #### [facility] [address] [address] [address] Scooby Irvin Cholesterol in HDL [Mass/Vol] 65 mg/dL Critically high 40-60 [facility] Comment on above: Performed By: #### C MP, LIPID #### [facility] [address] [address] [address] Scooby Irvin Cholesterol in LDL [Mass/Vol] 156.8 mg/dL Normal [facility] Comment on above: Performed By: #### C MP, LIPID #### [facility] [address] [address] [address] Scooby Irvin Cholesterol.total/Rachel sterol in HDL [Mass ratio] 3.6 {ratio} Normal [facility] Comment on above: Performed By: #### C MP, LIPID #### [facility] [address] [place] [address] Dr. Scooby Irvin HDL NORMAL > or = 60 mg/dl - LOW CARDIOVASCULAR RISK <40 mg/dl - HIGH CARDIOVASCULAR RISK Normal [facility] Comment on above: Performed By: #### C MP, LIPID #### [facility] [address] [place] [address] Dr. Scooby Irvin LDL CALC NORMAL SEE BELOW Normal [facility] Comment on above: Result Comment: <100 mg/dl OPTIMAL 100 - 129 mg/dl NEAR OR ABOVE OPTIMAL 130 - 159 mg/dl BORDERLINE HIGH 160 - 189 mg/dl HIGH >190 mg/dl VERY HIGH Performed By: #### C MP, LIPID #### [facility] [address] [place] [address] Dr. Scooby Irvin Triglyceride [Mass/Vol] 66 mg/dL Normal <=150 [facility] Comment on above: Performed By: #### C MP, LIPID #### [facility] [address] [place] [address] Dr. Scooby Irvin VLDL CALC 13.2 mg/dL Normal [facility] Comment on above: Performed By: #### C MP, LIPID #### [facility] [address] [place] [address] Dr. Scooby Irvin PROF 14(COMP METB)on 022 Albumin [Mass/Vol] 3.9 g/dL Normal 3.4-5.0 [facility] Comment on above: Performed By: #### C MP, LIPID #### [facility] [address] [place] [address] Dr. Scooby Irvin Albumin/Globulin [Mass ratio] 1.1 {ratio} Normal [facility] Comment on above: Performed By: #### C MP, LIPID #### [facility] [address] [place] [address] Dr. Scooby Irvin ALP [Catalytic activity/Vol] 87 U/L Normal 46-116 [facility] Comment on above: Performed By: #### C MP, LIPID #### [facility] [address] [place] [address] Dr. Scooby Irvin ALT [Catalytic activity/Vol] 27 U/L Normal 14-59 [facility] Comment on above: Performed By: #### C MP, LIPID #### [facility] [address] [place] [address] Dr. Scooby Irvin Anion gap [Moles/Vol] 16.9 mmol/L Normal [facility] Comment on above: Performed By: #### C MP, LIPID #### [facility] [address] [place] [address] Dr. Scooby Irvin AST [Catalytic activity/Vol] 21 U/L Normal 15-37 [facility] Comment on above: Performed By: #### C MP, LIPID #### [facility] [address] [place] [address] Dr. Scooby Irvin Bilirubin [Mass/Vol] 0.4 mg/dL Normal 0.2-1.0 [facility] Comment on above: Performed By: #### C MP, LIPID #### [facility] [address] [place] [address] Dr. Scooby Irvin Calcium [Mass/Vol] 8.7 mg/dL Normal 8.5-10.1 [facility] Comment on above: Performed By: #### C MP, LIPID #### [facility] [address] [place] [address] Dr. Scooby Irvin Chloride [Moles/Vol] 102 mmol/L Normal 98-107 [facility] Comment on above: Performed By: #### C MP, LIPID #### [facility] [address] [place] [address] Dr. Scooby Irvin CO2 [Moles/Vol] 22.0 mmol/L Normal 21.0-32.0 [facility] Comment on above: Performed By: #### C MP, LIPID #### [facility] [address] [place] [address] Dr. Scooby Irvin Creatinine [Mass/Vol] 0.73 mg/dL Normal 0.55-1.02 [facility] Comment on above: Performed By: #### C MP, LIPID #### [facility] [address] [place] [address] Dr. Scooby Irvin EGFR-AF HAITIAN >60 Normal >=60 [facility] Comment on above: Performed By: #### C MP, LIPID #### [facility] [address] [place] [address] Dr. Scooby Irvin EGFR-NON AF HAITIAN >60 Normal >=60 [facility] Comment on above: Performed By: #### C MP, LIPID #### [facility] [address] [address] [address] Scooby Irvin Globulin (S) [Mass/Vol] 3.7 g/dL Normal T [facility] Comment on above: Performed By: #### C MP, LIPID #### [facility] [address] [address] [address] Scooby Irvin Glucose [Mass/Vol] 105 mg/dL Normal 74-106 [facility] Comment on above: Performed By: #### C MP, LIPID #### [facility] [address] [place] [address] Dr. Scooby Irvin Potassium [Moles/Vol] 3.9 mmol/L Normal 3.5-5.1 [facility] Comment on above: Performed By: #### C MP, LIPID #### [facility] [address] [place] [address] Dr. Scooby Irvin Protein [Mass/Vol] 7.6 g/dL Normal 6.4-8.2 [facility] Comment on above: Performed By: #### C MP, LIPID #### [facility] [address] [place] [address] Dr. Scooby Irvin Sodium [Moles/Vol] 137 mmol/L Normal 136-145 [facility] Comment on above: Performed By: #### C MP, LIPID #### [facility] [address] [place] [address] Dr. Scooby Irvin Urea nitrogen [Mass/Vol] 11.0 mg/dL Normal 7.0-18.0 [facility] Comment on above: Performed By: #### C MP, LIPID #### [facility] [address] [place] [address] Dr. Scooby Irvin Urea nitrogen/Creatinine [Mass ratio] 15.1 mg/mg Normal [facility] Comment on above: Performed By: #### C MP, LIPID #### [facility] [address] [place] [address] Dr. Scooby Irvin TSHon 09-27-2021 TSH 2.198 uIU/mL Normal 0.358-3.740 [facility] Comment on above: Performed By: #### T SH #### [facility] [address] [place] [address] Dr. Scooby Irvin Covid-19 PCR ([facility])on 09-11 SARS-CoV-2 (COVID-19) RNA ADELITA+probe Ql (Unsp spec) Not detected Normal NOT DETECTED [facility] Comment on above: Result Comment: This test is not yet approved or cleared by the [place] FDA. When there are no FDA-approved or cleared tests available, and other criteria are met, FDA can make tests available under an emergency access mechanism called an Emergency Use Authorization (EUA). The EUA for this test is supported by the [employer] of Health and Human Service's (HHS's) declaration that circumstances exist to justify the emergency use of in vitro diagnostics for the detection and/or diagnosis of the virus that causes COVID-19. This EUA will remain in effect (meaning this test can be used) for the duration of the COVID-19 declaration justifying emergency of IVDs, unless it is terminated or revoked by FDA (after which the test may no longer be used). When diagnostic testing is negative, the possibility of a false negative should be considered in the context of a patient's recent exposures and the presence of clinical signs and symptoms consistent with SARS-CoV-2. Performed By: #### C BC #### [facility] [address] [place] [address] [address] [address] Scooby Irvin TSHon 06-22-2021 TSH 2.326 uIU/mL Normal 0.358-3.740 [facility] Comment on above: Performed By: #### C BC #### [facility] [address] [place] [address] [address] [address] Scooby Irvin TSH RANGE SEE BELOW Normal [facility] Comment on above: Result Comment: <0.3 4 UIU/ml HYPERTHYROID 0.34-5.60 UIU/ml EUTHYROID >5.60 UIU/ml HYPOTHYROID Performed By: #### C #### [facility] [address] [address] [address] Scooby Irvin ABO/Rh Retypeon 05-31-2021 ABO/RH Recheck Result Positive Normal [facility] Comment on above: Result Comment: PERF ORMED BY: [facility] [place] [address] PATHOLOGIST CONTENT CREATION MANAGER TRICIA Yin 05-31-2021 L Specimen: [id number] Received: 05/31/21 Status: LIDIA Miriam Num: [id number] Spec Type: Surgical Subm Dr: Luis Gutierrez DO Tissues: A Parathyroid Gland (R/O PARATHYROID) B THYROID - Lobe (R SUBSTERNAL THYROID) Procedures: HE Stain/8, Gross/Micro L5, Gross/Micro L4 Patient Age/Sex Location Account Attending Physician Alexandra Cervantes 71/F [place] [id number] Luis Gutierrez DO SPEC NUM: [id number] RECD: 05/31/21 STATUS: LIDIA PINEDA NUM: [id number] KATHY: 05/31/21- SUBM DR: Luis Gutierrez DO ENTERED: 05/31/[address]: LANCE TYPE: Surgical DEPT: S ORDERED: HE Stain/8, Gross/Micro L5, Gross/Micro L4 ORDERED: HE Stain/8, Gross/Micro L5, Gross/Micro L4 Pathological Diagnosis A. Soft tissue, rule out parathyroid , biopsy: - Benign parathyroid tissue - Concurs with the frozen section diagnosis B. Right substernal thyroid gland, excision: - Adenomatoid nodules - One hypercellular parathyroid gland - One benign lymph node (0/1) Clinical Information Thyroid goiter Gross Description A. Received fresh and subsequently fixed in 10% neutral buffered formalin, labeled with the patient's name, number and rule out parathyroid is a less than 100 mg, 0.4 cm piedra-brown tissue fragment, which is entirely taken for frozen section as A1FS . Entirely submitted in one cassette labeled A1. (TERRANCE/MELLISSA) B. Received in 10% neutral buffered formalin, labeled with the patient's name, number and right substernal thyroid is a 7.9 g lobulated portion of thyroid that measures 4.2 x 3.8 x 1.6 cm. There is an attached suture designated per the requisition slip as the mediastinal mass. This nodular area is 2.6 x 1.8 x 1.6 cm. The presumed posterior surface is inked black and the presumed anterior surface is inked blue. Sectioning of the sutured nodule Specimen: [id number] Received: 05/31/21 Status: LIDIA Reyesduong Num: [id number] Spec Type: Surgical Subm Dr: Luis Gutierrez DO Tissues: A Parathyroid Gland (R/O PARATHYROID) B THYROID - Lobe (R SUBSTERNAL THYROID) Procedures: HERBERT Stain/8, Gross/Micro L5, Gross/Micro L4 Patient: AmyantoninaAlexandra [id number] (Continued) Specimen: Received: 05/31/21 (Continued) Gross Description (Continued) Signed (signatur e on file) Tricia Oshea MD 06/01/21 1913 Specimen: Received: 05/31/21 Status: LIDIA Pineda Num: [id number] Spec Type: Surgical Subm Dr: Luis Gutierrez DO Tissues: A Parathyroid Gland (R/O PARATHYROID) B THYROID - Lobe (R SUBSTERNAL THYROID) Procedures: HE Stain/8, Gross/Micro L5, Gross/Micro L4 Patient: Alexandra Cervantes [id number] (Continued) Specimen: Received: 05/31/21 (Continued) Gross Description (Continued) demonstrates piedra-pink, gelatinous and lobulated cut surfaces. Sectioning of the presumed thyroid demonstrates red thyroid parenchyma with multiple nodules measuring up to 0.8 cm. Some nodules are present at the inked external surface. Entirely submitted in 7 cassettes as follows: B1-B3 - Sutured mediastinal mass B4-B7 - Thyroid gland, sequentially submitted (SM/JS) Intraoperative Diagnosis A. Soft tissue, rule out parathyroid , biopsy: - Benign parathyroid tissue - The diagnosis is conveyed to Dr. Gutierrez by Dr. Oshea at 10:30 AM on 05/31/2021 Microscopic Description A. Three glass slides with H E stained material including two frozen section slides, and one touch imprints stained with Diff Quik have been examined. The microscopic findings support the above pathologic diagnosis. B. Seven glass slides with H E stained material have been examined. The microscopic findings support the above pathologic diagnosis. [id number] Specimen: [id number] Received: (more content not included)... Normal [facility] LeukoReduced RBCon 2 LeukoReduced RBC READY Normal [facility] Type and Screenon 05-31-2021 ABO and Rh group Nom (Bld) Blood group O Rh(D) positive Normal [facility] Comment on above: Order Comment: Trans fuse now? N Result Comment: PERF ORMED BY: [place] [address] PATHOLOGIST CONTENT CREATION MANAGER TRICIA OSHEA M.D. Basic Metabolic Panelon 05-12 Calcium [Mass/Vol] 9.5 mg/dL Normal 8.2-10.2 [facility] Comment on above: Result Comment: PERF ORMED BY: [facility] [address] [place] [address] PATHOLOGIST CONTENT CREATION MANAGER TRICIA OSHEA M.D. Performed By: #### C BC, BMP #### [facility] [address] [place] [address] [place] Chloride [Moles/Vol] 105 mmol/L Normal 95-114 [facility] Comment on above: Performed By: #### C BC, BMP #### [facility] [address] CO2 [Moles/Vol] 23.0 mmol/L Normal 22.0-30.0 [facility] Comment on above: Performed By: #### C BC, BMP #### [address] Creatinine [Mass/Vol] 0.66 mg/dL Normal 0.44-1.03 [facility] Comment on above: Performed By: #### C BC, BMP #### [address] Estimated GFR ( Traci > 60 [facility] Comment on above: Result Comment: GFR estimated reference range: According to KDOQI guidelines, <60 ml/min/1.73m2 is sufficient to diagnose a patient with chronic kidney disease. Performed By: #### C BC, BMP #### [address] Estimated GFR (Non- Am > 60 [facility] Comment on above: Performed By: #### C BC, BMP #### [address] Glucose [Mass/Vol] 89 mg/dL Normal 70-100 [facility] Comment on above: Result Comment: [place] om Glucose Reference Range is dependent on time and content of last meal. Glucose of more than 200 mg/dL in a nonstressed, ambulatory subject supports the diagnosis of Diabetes Mellitus. ADA recommended reference range Performed By: #### C BC, BMP #### [place] [address] [place] Potassium [Moles/Vol] 4.0 mmol/L Normal 3.5-5.1 [facility] Comment on above: Performed By: #### C BC, BMP #### [address] Sodium [Moles/Vol] 137 mmol/L Normal 136-146 [facility] Comment on above: Performed By: #### C BC, BMP #### [place] [address] [place] Urea nitrogen [Mass/Vol] 10 mg/dL Normal 9-23 [facility] Comment on above: Performed By: #### C BC, BMP #### [facility] [address] Basophils Auto (Bld) [#/Vol] Ordered By: Luis Gutierrez on 05-26-2021 Basophils (Bld) [#/Vol] 0.1 10*3/uL 0.0-0.2 [facility] Basophils/100 WBC Auto (Bld) Ordered By: Luis Gutierrez on 05-26-2021 Basophils/100 WBC (Bld) 0.9 % F [facility] Blood hemoglobin measurement (mass/volume)Ordered By: Luis Gutierrez on 05-26-2021 Hemoglobin (Bld) [Mass/Vol] 12.4 g/dL 11.8-15.4 [facility] Blood leukocytes automated c ount (number/volume)Ordered By: Lusi Gutierrez on 05-26-2021 WBC (Bld) [#/Vol] 8.8 10*3/uL 4.5-11.0 [facility] COVID-19 FRMCon 05-26-2021 SARS-CoV-2 (COVID-19) RNA ADELITA+probe Ql (Unsp spec) Negative Normal Negative [facility] Comment on above: Order Comment: Healt hcare Worker?: N Result Comment: Testing for SARS-CoV-2 by RT-PCR This test was developed and its performance characteristics determined by [employer] and validated at the [facility]. This test has not been FDA cleared or approved. This test has been authorized by FDA under an Emergency Use Authorization (EUA). This test has been validated in accordance with the FDA's Guidance Document (Policy for Diagnostics Testing in Laboratories Certified to Perform High Complexity Testing under CLIA prior to Emergency Use Authorization for Coronavirus Disease-2019 during the Public Health Emergency) issued on May 14, 2019. This test is only authorized for the duration of time the declaration that circumstances exist justifying the authorization of the emergency use of in vitro diagnostic tests for detection of SARS-CoV-2 virus and/or diagnosis of COVID-19 infection under section 564(b)(1) of the Act, 21 U.S.C. 360bbb-3(b)(1), unless the authorization is terminated or revoked sooner. PERFORMED BY: [place] [address] PATHOLOGIST CONTENT CREATION MANAGER TRICIA OSHEA M.D. Performed By: #### C OVID 19 [facility] #### [facility] [address] COVID-19 Positive/NegativeOr dered By: Luis Gutierrez on 05-26-2021 SARS-CoV-2 (COVID-19) N gene ADELITA+probe Ql (Resp) Negative Negative [facility] Comment on above: Testing for SARS-CoV -2 by RT-PCRThis test was developed and its performance characteristics determined by [employer] and validated at the [facility]. This test has not been FDA cleared or approved. This test has been authorized by FDA under an Emergency Use Authorization (EUA). This test has been validated in accordance with the FDA's Guidance Document (Policy for Diagnostics Testing in Laboratories Certified to Perform High Complexity Testing under CLIA prior to Emergency Use Authorization for Coronavirus Disease-2019 during the Public Health Emergency) issued on May 14, 2019. This test is only authorized for the duration of time the declaration that circumstances exist justifying the authorization of the emergency use of in vitro diagnostic tests for detection of SARS-CoV-2 virus and/or diagnosis of COVID-19 infection under section 564(b)(1) of the Act, 21 U.S.C. 360bbb-3(b)(1), unless the authorization is terminated or revoked sooner. Calciumon 05-26-2021 Calcium [Mass/Vol] 9.4 mg/dL Normal 8.2-10.2 [facility] Comment on above: Performed By: #### C A, TSH3, PTH #### [facility] [address] [place] [address] Complete Blood Count Auto Di ffon 05-26-2021 Basophils (Bld) [#/Vol] 0.1 10*3/uL Normal 0.0-0.2 [facility] Comment on above: Result Comment: PERF ORMED BY: [place] [address] PATHOLOGIST CONTENT CREATION MANAGER TRICIA OSHEA M.D. Performed By: #### C BC, BMP #### [address] Basophils/100 WBC (Bld) 0.9 % Normal . [facility] Comment on above: Performed By: #### C BC, BMP #### [address] Eosinophils (Bld) [#/Vol] 0.0 10*3/uL Normal 0.0-0.45 [facility] Comment on above: Performed By: #### C BC, BMP #### [address] Eosinophils/100 WBC (Bld) 0.2 % Normal . [facility] Comment on above: Performed By: #### C BC, BMP #### [address] Erythrocyte distribution width (RBC) [Ratio] 16.1 % High 11.9-15.3 [facility] Comment on above: Performed By: #### C BC, BMP #### [address] Hematocrit (Bld) [Volume fraction] 37.5 % Normal 34.0-46.4 [facility] Comment on above: Performed By: #### C BC, BMP #### [address] Hemoglobin (Bld) [Mass/Vol] 12.4 g/dL Normal 11.8-15.4 [facility] Comment on above: Performed By: #### C BC, BMP #### [address] Lymphocytes (Bld) [#/Vol] 1.4 10*3/uL Normal 1.00-4.8 [facility] Comment on above: Performed By: #### C BC, BMP #### [place] [address] [place] Lymphocytes/100 WBC (Bld) 15.8 % Normal . [facility] Comment on above: Performed By: #### C BC, BMP #### [facility] [address] MCH (RBC) [Entitic mass] 29.2 pg Normal 24.7-34.3 [facility] Comment on above: Performed By: #### C BC, BMP #### [facility] [address] MCV (RBC) [Entitic vol] 88.3 fL Normal 80-100 F [facility] Comment on above: Performed By: #### C BC, BMP #### [facility] [address] Mean Corpuscular HGB Conc 33.1 g/dL Normal 32.0-35.0 [facility] Comment on above: Performed By: #### C BC, BMP #### [address] Monocytes (Bld) [#/Vol] 0.7 10*3/uL Normal 0.0-0.8 [facility] Comment on above: Performed By: #### C BC, BMP #### [facility] [address] Monocytes/100 WBC (Bld) 7.7 % Normal . [facility] Comment on above: Performed By: #### C BC, BMP #### [facility] [address] [place] [address] [place] Neutrophils (Bld) [#/Vol] 6.7 10*3/uL Normal 1.8-7.7 [facility] Comment on above: Performed By: #### C BC, BMP #### [facility] [address] [place] [address] [place] Neutrophils/100 WBC (Bld) 75.4 % Normal . [facility] Comment on above: Performed By: #### C BC, BMP #### [facility] [address] [place] [address] [place] Nucleated RBC/100 WBC (Bld) [Ratio] 0.1 % Normal 0-0.5 [facility] Comment on above: Performed By: #### C BC, BMP #### [facility] [address] Platelet mean volume (Bld) [Entitic vol] 8.6 fL Normal 6.3-10.7 [facility] Comment on above: Performed By: #### C BC, BMP #### [facility] [address] [place] [address] [place] Platelets (Bld) [#/Vol] 241 10*3/uL Normal 150-450 [facility] Comment on above: Performed By: #### C BC, BMP #### [facility] [address] RBC (Bld) [#/Vol] 4.24 10*6/uL Normal 3.60-5.00 [facility] Comment on above: Performed By: #### C KELSEY, BMP #### [facility] [address] WBC (Bld) [#/Vol] 8.8 10*3/uL Normal 4.5-11.0 [facility] Comment on above: Performed By: #### C KELSEY, BMP #### [address] Creatinine and Glomerular fi ltration rate.predicted panel (S/P/Bld)Ordered By: Luis Gutierrez on 05-26-2021 Creatinine [Mass/Vol] 0.66 mg/dL 0.44-1.03 [facility] ECG 12 lead ECGon 05-26-2021 ECG 12 lead ECG [facility] [address] [place] [address] [place] [address] Electrocardiograph Report Signed Patient: Alexandra Cervantes MR#: [id number] 2 : 1950 Acct:[id number] Age/Sex: 71 / F ADM Date: 05/26/21 Loc: Room: Type: [facility] Attending Dr: Luis Gutierrez DO Ordering Provider: Luis Gutierrez DO Date of Service: 05/26/21 ECG/ECG 12 lead ECG: PST Copies to: Test Reason : Blood Pressure : / mmHG Vent. Rate : 078 BPM Atrial Rate : 078 BPM P-R Int : 148 ms QRS Dur : 078 ms QT Int : 402 ms P-R-T Axes : 062 000 030 degrees QTc Int : 458 ms Normal sinus rhythm Normal ECG No previous ECGs available Confirmed by FREDI HAINES DO ([id number]) on 05/27/2021 8:48:58 AM Referred By: SHANKAR Electronically Signed By:FREDI HAINES DO Transcribed By: IBRAHIMA Signed By Fredi Haines DO 05/27 0848 Normal [facility] Eosinophils Auto (Bld) [#/Vo l]Ordered By: Luis Gutiererz on 05-26-2021 Eosinophils (Bld) [#/Vol] 0.0 10*3/uL 0.0-0.45 [facility] Eosinophils/100 WBC Auto (Bl d)Ordered By: Luis Gutierrez on 05-26-2021 Eosinophils/100 WBC (Bld) 0.2 % [facility] Erythrocyte distribution wid th Auto (RBC) [Ratio]Ordered By: Luis Gutierrez on 05-26-2021 Erythrocyte distribution width (RBC) [Ratio] 16.1 % 11.9-15.3 [facility] Estimated glomerular filtrat ion rate (GFR) non- AmericanOrdered By: Luis Gutierrez on 05-26-2021 GFR/1.73 sq M.predicted among non-blacks MDRD (S/P/Bld) [Vol rate/Area] > 60 mL/Min [facility] Hematocrit Auto (Bld) [Volum e fraction]Ordered By: Luis Gutierrez on 05-26-2021 Hematocrit (Bld) [Volume fraction] 37.5 % 34.0-46.4 [facility] Laboratory - Hematology and Cell countsOrdered By: Luis Gutierrez on 05-26-2021 Nucleated RBC/100 WBC (Bld) [Ratio] 0.1 % 0-0.5 [facility] Lymphocytes Auto (Bld) [#/Vo l]Ordered By: Luis Gutierrez on 05-26-2021 Lymphocytes (Bld) [#/Vol] 1.4 10*3/uL 1.00-4.8 [facility] Lymphocytes/100 WBC Auto (Bl d)Ordered By: Luis Gutierrez on 05-26-2021 Lymphocytes/100 WBC (Bld) 15.8 % [facility] MCH Auto (RBC) [Entitic mass ]Ordered By: Luis Gutierrez on 05-26-2021 MCH (RBC) [Entitic mass] 29.2 pg 24.7-34.3 [facility] MCHC Auto (RBC) [Mass/Vol]Or dered By: Luis Gutierrez on 05-26-2021 MCHC (RBC) [Mass/Vol] 33.1 g/dL 32.0-35.0 [facility] MCV Auto (RBC) [Entitic vol] Ordered By: Luis Gutierrez on 05-26-2021 MCV (RBC) [Entitic vol] 88.3 fL 80-100 F [facility] Monocytes Auto (Bld) [#/Vol] Ordered By: Luis Gutierrez on 05-26-2021 Monocytes (Bld) [#/Vol] 0.7 10*3/uL 0.0-0.8 [facility] Monocytes/100 WBC Auto (Bld) Ordered By: Luis Gutierrez on 05-26-2021 Monocytes/100 WBC (Bld) 7.7 % [facility] Neutrophils Auto (Bld) [#/Vo l]Ordered By: Luis Gutierrez on 05-26-2021 Neutrophils (Bld) [#/Vol] 6.7 10*3/uL 1.8-7.7 [facility] Neutrophils/100 WBC Auto (Bl d)Ordered By: Luis Gutierrez on 05-26-2021 Neutrophils/100 WBC (Bld) 75.4 % [facility] No Panel InformationOrdered By: Luis Gutierrez on 05-26-2021 Estimated GFR () > 60 mL/Min [facility] Comment on above: GFR estimated refere nce range: According to KDOQI guidelines, <60 ml/min/1.73m2 is sufficient to diagnose a patient with chronic kidney disease. Pharmacy Creatinine Clearance (Chem N/A [facility] Parathyroid Hormone Intacton 05-26-2021 Parathyroid Hormone Intact 31.2 pg/mL Normal [facility] Comment on above: Result Comment: PERF ORMED BY: [facility] [address] [place] [address] PATHOLOGIST CONTENT CREATION MANAGER TRICIA OSHEA M.D. Performed By: #### C BC, BMP #### [facility] [address] Platelet mean volume Auto (B ld) [Entitic vol]Ordered By: Luis Gutierrez on 05-26-2021 Platelet mean volume (Bld) [Entitic vol] 8.6 fL 6.3-10.7 [facility] Platelets Auto (Bld) [#/Vol] Ordered By: Luis Gutierrez on 05-26-2021 Platelets (Bld) [#/Vol] 241 10*3/uL 150-450 [facility] RBC Auto (Bld) [#/Vol]Ordere d By: Luis Gutierrez on 05-26-2021 RBC (Bld) [#/Vol] 4.24 10*6/uL 3.60-5.00 [facility] Serum or plasma calcium joseph urement (mass/volume)Ordered By: Luis Gutierrez on 05-26-2021 Calcium [Mass/Vol] 9.4 mg/dL 8.2-10.2 [facility] Serum or plasma chloride liv surement (moles/volume)Ordered By: Luis Gutierrez on 05-26-2021 Chloride [Moles/Vol] 105 mmol/L 95-114 [facility] Serum or plasma glucose joseph urement (mass/volume)Ordered By: Luis Gutierrez on 05-26-2021 Glucose [Mass/Vol] 89 mg/dL 70-100 [facility] Comment on above: ADA recommended refe rence rangeRandom Glucose Reference Range is dependent on time and content of last meal. Glucose of more than 200 mg/dL in a nonstressed, ambulatory subject supports the diagnosis of Diabetes Mellitus. Serum or plasma intact parat hyroid hormone measurement (mass/volume)Ordered By: Luis Gutierrez on 05-26-2021 Parathyrin.intact [Mass/Vol] 31.2 pg/mL [facility] Serum or plasma potassium me asurement (moles/volume)Ordered By: Luis Gutierrez on 05-26-2021 Potassium [Moles/Vol] 4.0 mmol/L 3.5-5.1 [facility] Serum or plasma sodium measu rement (moles/volume)Ordered By: Luis Gutierrez on 05-26-2021 Sodium [Moles/Vol] 137 mmol/L 136-146 [facility] Serum or plasma total carbon dioxide measurement (moles/volume)Ordered By: Luis Gutierrez on 05-26-2021 CO2 [Moles/Vol] 23.0 mmol/L 22.0-30.0 [facility] Serum or plasma urea nitroge n measurement (mass/volume)Ordered By: Luis Gutierrez on 05-26-2021 Urea nitrogen [Mass/Vol] 10 mg/dL 11-03 [facility] TSH DL <= 0.005 mIU/L QnOrde red By: Luis Gutierrez on 05-26-2021 TSH Qn 0.86 m[IU]/L 0.45-5.33 [facility] Thyroid Stimulating Hormoneo n 05-26-2021 TSH Qn 0.86 m[IU]/L Normal 0.45-5.33 [facility] Comment on above: Performed By: #### C A, TSH3, PTH #### [address] MG MAMM SCREEN 3D GEORGES CADon 05-22-2021 MG MAMM SCREEN 3D GEORGES CAD Patient: ALEXANDRA CERVANTES Exam Date: 05/22/2021 : 1950 Gender:F Ordering : DR LAURITA MORALES M.D. Admission #: [id number] Family : Order #: [id number] CLICK HERE TO VIEW EXAM RADIOLOGY REPORT PROCEDURE: MAMMOGRAM SCREENING 3D BILATERAL CAD COMPARISON: MG MAMM SCREEN GEORGES W CAD, 05/16/2017. MG MAMM SCREEN GEORGES W CAD, 05/19/2018. INDICATIONS: Screening mammography Calculator Name NCI Breast Cancer Risk Assessment Tool 5 Year Breast Cancer Risk 2.20% Lifetime Breast Cancer Risk 5.30% Personal Breast Cancer No Personal Ovarian Cancer No Treatments None Family Cancers None LOCATION: [facility] BREAST COMPOSITION: Scattered areas fibroglandular density. FINDINGS: DIAGNOSTIC CATEGORY 2--BENIGN FINDING. NO CHANGE FROM COMPARISON. Scattered benign-appearing nodules are present. Scattered benign-appearing calcifications are present. Scattered benign-appearing lymph nodes are present. RIGHT BREAST: Stable focal asymmetry upper outer quadrant. LEFT BREAST: No significant suspicious finding. RECOMMENDATIONS: ROUTINE MAMMOGRAM AND CLINICAL EVALUATION IN 12 MONTHS. PLEASE NOTE: A NORMAL MAMMOGRAM DOES NOT EXCLUDE THE POSSIBILITY OF BREAST CANCER. A CLINICALLY SUSPICIOUS PALPABLE LUMP SHOULD BE BIOPSIED. Dictated by: Lonny Killian MD on 05/22/2021 at 12:04 Approved by: Lonny Killian MD on 05/22/2021 at 12:06 Normal [facility] CT Chest w/Contraston 2021 CT Chest w/Contrast Please see CT neck report dated: 05/17/2021. Report reported and signed by Fuentes Lion on 05/22/2021 1528 Normal [facility] CT Soft Tissue Neck w/ Contr ast*on 05-17-2021 CT Soft Tissue Neck w/ Contrast* CLINICAL HISTORY: Mediastinal mass. COMPARISON: CT 04/01/[address] 03/23/2021. TECHNIQUE: Multiple contiguous axial images of the neck and chest were obtained following IV administration of 100 mL Isovue 300. Multiplanar reformats were acquired. All CT scans at this facility use dose modulation, iterative reconstruction, and/or weight based dosing when appropriate to reduce radiation dose to as low as reasonably achievable. FINDINGS: An approximately 2.5 x 1.8 x 1.4 cm (sagittal, transverse, and AP dimension) ovoid well-defined mildly enhancing mass to the right the superior thoracic esophagus at the thoracic inlet, is isodense to the thyroid gland with a suspected narrow band like extension to the inferior right thyroid lobe, and appears unchanged from the prior studies. There is no other significant change identified elsewhere. Moderate degenerative changes of the cervical spine, with moderate central spinal stenosis and neuroforaminal narrowing at C5-6, and to a lesser extent elsewhere. Moderate changes of the thoracic spine are again noted. Densely calcified left lung granulomas measuring up to approximately 1 cm with an the posterolateral left lower lobe and coarse left hilar calcifications appear unchanged. Mild probable atelectasis is visualized lung bases. There are no developing pulmonary infiltrates, other significant lymphadenopathy, pleural or pericardial effusions or other significant changes identified. The thoracic aorta is normal in caliber with mild carotid plaquing. IMPRESSION: STABLE APPROXIMATELY 2.5 CM PROBABLE EXOPHYTIC RIGHT THYROID NODULE FROM PRIOR STUDIES. OTHER STABLE CHRONIC FINDINGS, NOTED. Report reported and signed by Fuentes Lion on 05/22/2021 1528 Normal [facility] [employer] Specialist Gastroenterology Office/Clin ic Noteon 05-11-2021 Gastroenterology Office/Clinic Note Chief Complaint 6 month follow up HPI Staff Alexandra is a 71 y.o. female here for 6 month follow up chronic pancolonic ulcerative colitis History of Present Illness Alexandra Cervantes is a 71-year-old white female who presents today for a follow-up. She was last seen in 07/2020. She has a history of ulcerative colitis diagnosed more than 30 years ago. She was not on any treatment until 12/2019 when a colonoscopy revealed active severe ulcerative colitis. We started her on a tapering dose of prednisone. Mesalamine was not approved by her insurance, so we started her on sulfasalazine. The patient states she has been out of sulfasalazine for 1 month. She called our office for refills, but was told by our staff that the medication could not be refilled since she had not been seen for her annual follow-up. She reports that she did have improvement of her symptoms while taking the sulfasalazine. She denies any symptoms currently. She is compliant with folic acid supplements. Review of Systems PHQ Score Initial Depression Screen Score: 2 Constitutional: no fever, no chills, no sweats, no weakness Skin: no Jaundice, no rash, no lesions, no petechiae ENMT: no ear pain, no sore throat, no congestion, no hoarseness Respiratory: no shortness of breath, no cough, no orthopnea, no wheezing Cardiovascular: no chest pain, no palpitations, no edema Gastrointestinal: no nausea, no vomiting, no diarrhea, no constipation, no GI bleeding, no dysphagia, no bloating, no heartburn Genitourinary: no dysuria, no hematuria, no discharge, no pain Musculoskeletal: no back pain, no trauma Neurologic: no numbness, no sleeping problems Additional ROS info: Except as noted in the above Review of Systems and in the History of Present Illness all other systems have been reviewed and are negative or noncontributory. Physical Exam Vitals & Measurements BP: 180/90 HT: 150.0 cm HT: 150 cm WT: 71.0 kg WT: 71 kg BMI: 31.56 Constitutional: Appearance: well developed Skin: Inspection: no rashes, ulcers, icterus, or telangiectasias. Eyes: Conjunctivae/lids: normal conjunctivae and lids. ENMT: Hearing: within normal limits. Lips/Teeth/Gums: normal oral mucosa Neck: Neck: normal motion, central trachea Respiratory: Percussion: thorax normoresonant. Auscultation: normal breath sounds; no rubs, wheezes, rale or ronchi. Cardiovascular: Auscultation: normal rhythm, S1 and S2; no rubs, murmurs or gallop. Peripheral: no edema Gastrointestinal/Ab domen: Abdomen: normal consistency and bowel sounds; no tenderness or masses. Liver/Spleen: normal size and consistency, not palpable. Rectal: deferred Musculoskeletal: Gait/station: normal gait Assessment/Plan 1. Chronic pancolonic ulcerative colitis (K51.00: Ulcerative (chronic) pancolitis without complications) This was diagnosed more than 30 years ago. She was not on any treatment until she starts seeing me in 2020. Mesalamine was not approved by her insurance. She was started on sulfasalazine, but she ran out of medication recently. She reports no evidence of flare up, rectal bleeding, or diarrhea. We will restart her on sulfasalazine together with folic acid. She will repeat a colonoscopy in 1 year somewhere around 12/2021 to confirm mucosal healing. ATTESTATION: Documentation services were performed after patient or guardian consented to allow [employer] to record this visit. JASS analysis specialist and provider reviewed before signing. JASS: Lillie Santiago. Follow-up With When Contact Information JANINA ALARCON, LENORE Farooq MED Within [address] [facility] [address] [place] [address]- Additional Instructions: Problem List/Past Medical History Ongoing Chronic pancolonic ulcerative colitis Historical No qualifying data Procedure/Surgical History Colonoscopy, flexible; with biopsy, single or multiple (02/16/2020), Colonoscopy. Medications alprazolam, Oral baclofen, Oral, TID calcium (as calcium citrate) 200 mg oral tablet, Oral, BID escitalopram, Oral, Daily Folate 1 mg Tab, 1 mg= 1 tab(s), Oral, Daily glucosamine 500 mg oral tablet, 500 mg= 1 tab(s), Oral, TID levothyroxine, Daily Nu[employer]ELY [place] oral powder for reconstitution, See Instructions omeprazole, Oral, Daily simvastatin, Oral sulfasalazine 500 mg Tab, 1000 mg= 2 tab(s), Oral, TID, 11 refills Allergies No Known Allergies Social History Tobacco 10 or more cigarettes (1/2 pack or more)/day in last 30 days Tobacco Use:. Cigarettes, Yes, 05/10/2021 Family History Diabetes mellitus type 1: Father. Immunizations Vaccine Date Status influenza virus vaccine, inactivated 11/2020 Recorded Normal [facility] Comment on above: Result Comment: Elec tronically Signed By: Capri ROA MD\.br\Date and Time Signed: 05/11/21 13:57 EDT\.br\Electronically Co-Signed By: Lillie Santiago\.br\Date and Time Co-Signed: 05/10/21 13:28 EDT Ambulatory Visit Summaryon 0 05-10-2021 Ambulatory Visit Summary ALEXANDRA CERVANTES :1950 Visit Date:05/10/2021 Ambulatory Visit Instructions Your Diagnosis Chronic pancolonic ulcerative colitis Your Care Team Attending Physician - Capri ROA MD Primary Care Physician - LAURITA MORALES MD This Is Your Medications List sulfasalazine (sulfasalazine 500 mg Tab) Contact prescribing physician if questions or concerns alprazolam baclofen calcium citrate (calcium (as calcium citrate) 200 mg oral tablet) escitalopram folic acid (Folate 1 mg Tab) glucosamine (glucosamine 500 mg oral tablet) levothyroxine omeprazole polyethylene glycol 3350 with electrolytes (NuLYTELY [place] oral powder for reconstitution) simvastatin Procedures Performed Colonoscopy, flexible; with biopsy, single or multiple (02/16/2020), Colonoscopy. Discharge Vitals Blood Pressure 180/90 Height 150.0 cm Height 150 cm Weight 71.0 kg Weight 71 kg BMI 31.56 What to do next You Need to Schedule the Following Appointments Follow Up with JANINA ALARCON, [facility], [facility] When: Within 6 months Where: [facility] [address] [place] [address]- Medications What How Much When Why Instructions Changed sulfasalazine (sulfasalazine 500 mg Tab) 2 Tablets By Mouth 3 times a day Pickup at [facility]/pharmacy #[id number] Unchanged alprazolam By Mouth Contact prescribing physician if questions or concerns Unchanged baclofen By Mouth 3 times a day Contact prescribing physician if questions or concerns Unchanged calcium citrate (calcium (as calcium citrate) 200 mg oral tablet) By Mouth 2 times a day Contact prescribing physician if questions or concerns Unchanged escitalopram By Mouth Every day Contact prescribing physician if questions or concerns Unchanged folic acid (Folate 1 mg Tab) 1 Tablets By Mouth Every day Chronic pancolonic ulcerative colitis Contact prescribing physician if questions or concerns Unchanged glucosamine (glucosamine 500 mg oral tablet) 1 Tablets By Mouth 3 times a day Contact prescribing physician if questions or concerns Unchanged levothyroxine Every day Contact prescribing physician if questions or concerns Unchanged omeprazole By Mouth Every day Contact prescribing physician if questions or concerns Unchanged polyethylene glycol 3350 with electrolytes (NuLYTELY [place] oral powder for reconstitution) See instructions PER PHYS INSRTUCTIONS Contact prescribing physician if questions or concerns Unchanged simvastatin By Mouth Contact prescribing physician if questions or concerns Pharmacy Information [facility]/pharmacy #[id number]: [address], [place] [id number] [phone] Allergies No Known Allergies Problems Ongoing - Any problem that you are currently receiving treatment for. Chronic pancolonic ulcerative colitis Normal [facility] esophaguson 05-04-2021 NE esophagus [facility] [place] [address] [place] [id number] Fluoroscopy Report Signed Patient: Alexandra Cervantes MR#: [id number] 2 : 1950 Acct:[id number] Age/Sex: 71 / F ADM Date: 05/04/21 Loc: XD Room: Type: [facility] Attending Dr: Cy Sears MD Ordering Provider: Cy Sears MD Date of Service: 05/04/21 NE/NE esophagus: K22.9 Copies to: Cy Sears MD Esophagram 05/04/2021. CLINICAL DATA: Dysphagia. Disease of esophagus. FINDINGS: A single-contrast esophagram was performed with fluoroscopic evaluation. 13 fluoroscopic spot images were stored and subsequent radiographs of the esophagus were obtained. Fluoroscopy time was 1 minute and 18 seconds. The swallowing mechanism is relatively intact. No aspiration of contrast is observed. There is mild esophageal dysmotility. No stricture, filling defect, or other evidence of an esophageal mass is identified. A 13 mm barium tablet was swallowed and passed through the esophagus into the stomach without obstruction. No esophageal dilatation or diverticulum is seen. Specifically, no Zenker diverticulum is visualized. There is no hiatal hernia. Despite various maneuvers, no gastroesophageal reflux was observed during the exam. FL/FL esophagus IMPRESSION: 1. Mild esophageal dysmotility. 2. Otherwise unremarkable esophagram. 3. No visible Zenker diverticulum. Impression dictated by: Selvin Kitchen Jr., M.D.05/04/2021 3:37 PM Dictation Location: [place] [address] Transcribed By: [facility] 05/04/211536 Dictated By: Selvin Kitchen Jr, MD 05/04/211531 Signed By: 05/04/21 1537 Normal [facility] Lab Reportson 04-26-2021 Lab Reports [id number]:[id number] Normal [facility] CBC AUTO DIFFon 04-20-2021 BASO # 0.1 103/ul Normal 0.0-0.1 [facility] Comment on above: Performed By: #### C BC #### [facility] [address] [place] [address] Dr. Scooby Irvin Basophils/100 WBC (Bld) 0.4 % Normal 0.2-2.0 [facility] Comment on above: Performed By: #### C BC #### [facility] [address] [place] [address] Dr. Scooby Irvin EO # 0.0 103/ul Normal 0.0-0.7 [facility] Comment on above: Performed By: #### C BC #### [facility] [address] [place] [address] Dr. Scooby Irvin Eosinophils/100 WBC (Bld) 0.2 % Critically low 0.9-7.0 [facility] Comment on above: Performed By: #### C BC #### [facility] [address] [place] [address] Dr. Scooby Irvin Erythrocyte distribution width (RBC) [Ratio] 16.7 % Critically high 11.0-15.0 [facility] Comment on above: Performed By: #### C BC #### [facility] [address] [place] [address] Dr. Scooby Irvin Hematocrit (Bld) [Volume fraction] 37.6 % Normal 36.0-48.0 [facility] Comment on above: Performed By: #### C BC #### [facility] [address] [place] [address] Dr. Scooby Irvin Hemoglobin (Bld) [Mass/Vol] 12.0 g/dL Normal 12.0-16.0 [facility] Comment on above: Performed By: #### C BC #### [facility] [address] [place] [address] Dr. Scooby Irvin IG # 0.02 10e3/ul Normal 0.00-0.03 [facility] Comment on above: Performed By: #### C BC #### [facility] [address] [place] [address] Dr. Scooby Irvin IG % 0.2 % Normal 0.0-0.5 [facility] Comment on above: Performed By: #### C BC #### [facility] [address] [place] [address] Dr. Scooby Irvin LYMPH # 1.6 103/ul Normal 1.2-3.8 [facility] Comment on above: Performed By: #### C BC #### [facility] [address] [place] [address] Dr. Scooby Irvin Lymphocytes/100 WBC (Bld) 13.6 % Critically low 20.5-60.0 [facility] Comment on above: Performed By: #### C BC #### [facility] [address] [place] [address] Dr. Scooby Irvin MANUAL DIFF REQ NO Normal [facility] Comment on above: Performed By: #### C BC #### [facility] [address] [address] [address] Scooby Irvin MCH (RBC) [Entitic mass] 28.6 pg Normal 26.7-34.0 [facility] Comment on above: Performed By: #### C BC #### [facility] [address] [address] [address] Scooby Irvin MCHC (RBC) [Mass/Vol] 31.9 g/dL Normal 29.9-35.2 [facility] Comment on above: Performed By: #### C BC #### [facility] [address] [place] [address] Dr. Scooby Irvin MCV (RBC) [Entitic vol] 89.5 fL Normal 81.0-99.0 [facility] Comment on above: Performed By: #### C BC #### [facility] [address] [place] [address] Dr. Scooby Irvin MONO # 0.7 103/ul Normal 0.3-0.8 [facility] Comment on above: Performed By: #### C BC #### [facility] [address] [place] [address] Dr. Scooby Irvin Monocytes/100 WBC (Bld) 5.8 % Normal 1.7-12.0 [facility] Comment on above: Performed By: #### C BC #### [facility] [address] [place] [address] Dr. Scooby Irvin NEUT # 9.1 103/ul Critically high 1.4-6.5 [facility] Comment on above: Performed By: #### C BC #### [facility] [address] [place] [address] Dr. Scooby Irvin Neutrophils/100 WBC (Bld) 79.8 % Critically high 43.0-75.0 [facility] Comment on above: Performed By: #### C BC #### [facility] [address] [place] [address] Dr. Scooby Irvin Platelet mean volume (Bld) [Entitic vol] 10.2 fL Normal 9.5-13.5 [facility] Comment on above: Performed By: #### C BC #### [facility] [address] [place] [address] [address] Scooby Irvin PLT 217 103/ul Normal 150-450 [facility] Comment on above: Performed By: #### C BC #### [facility] [address] [place] [address] Dr. Scooby Irvin RBC 4.20 106/ul Normal 4.20-5.40 [facility] Comment on above: Performed By: #### C BC #### [facility] [address] [place] [address] [address] Scooby Irvin WBC 11.4 103/ul Critically high 4.0-11.0 [facility] Comment on above: Performed By: #### C BC #### [facility] [address] [place] [address] Dr. Scooby Irvin PROF 14(COMP METB)on 022 Albumin [Mass/Vol] 3.9 g/dL Normal 3.5-5.0 [facility] Comment on above: Performed By: #### C MP #### [facility] [address] [place] [address] Dr. Scooby Irvin Albumin/Globulin [Mass ratio] 1.1 {ratio} Normal [facility] Comment on above: Performed By: #### C MP #### [facility] [address] [place] [address] Dr. Scooby Irvin ALP [Catalytic activity/Vol] 72 U/L Normal 38-126 [facility] Comment on above: Performed By: #### C MP #### [facility] [address] [place] [address] Dr. Scooby Irvin ALT [Catalytic activity/Vol] 23 U/L Normal 9-52 [facility] Comment on above: Performed By: #### C MP #### [facility] [address] [place] [address] Dr. Scooby Irvin Anion gap [Moles/Vol] 10.2 mmol/L Normal [facility] Comment on above: Performed By: #### C MP #### [facility] [address] [place] [address] [address] Scooby Irvin AST [Catalytic activity/Vol] 20 U/L Normal 14-36 [facility] Comment on above: Performed By: #### C MP #### [facility] [address] [place] [address] [address] Scooby Irvin Bilirubin [Mass/Vol] 0.5 mg/dL Normal 0.2-1.3 [facility] Comment on above: Performed By: #### C MP #### [facility] [address] [place] [address] Dr. Scooby Irvin Calcium [Mass/Vol] 8.8 mg/dL Normal 8.4-10.2 [facility] Comment on above: Performed By: #### C MP #### [facility] [address] [place] [address] Dr. Scooby Irvin Chloride [Moles/Vol] 104 mmol/L Normal 98-107 [facility] Comment on above: Performed By: #### C MP #### [facility] [address] [place] [address] Dr. Scooby Irvin CO2 [Moles/Vol] 28.0 mmol/L Normal 22.0-30.0 [facility] Comment on above: Performed By: #### C MP #### [facility] [address] [place] [address] Dr. Scooby Irvin Creatinine [Mass/Vol] 0.87 mg/dL Normal 0.52-1.04 [facility] Comment on above: Performed By: #### C MP #### [facility] [address] [place] [address] Dr. Scooby Irvin EGFR-AF HAITIAN >60 Normal >=60 [facility] Comment on above: Performed By: #### C MP #### [facility] [address] [place] [address] Dr. Scooby Irvin EGFR-NON AF HAITIAN >60 Normal >=60 [facility] Comment on above: Performed By: #### C MP #### [facility] [address] [place] [address] Dr. Scooby Irvin Globulin (S) [Mass/Vol] 3.5 g/dL Normal [facility] Comment on above: Performed By: #### C MP #### [facility] [address] [place] [address] Dr. Scooby Irvin Glucose [Mass/Vol] 93 mg/dL Normal 74-106 [facility] Comment on above: Performed By: #### C MP #### [facility] [address] [place] [address] Dr. Scooby Irvin Potassium [Moles/Vol] 4.2 mmol/L Normal 3.4-5.0 [facility] Comment on above: Performed By: #### C MP #### [facility] [address] [place] [address] Dr. Scooby Irvin Protein [Mass/Vol] 7.4 g/dL Normal 6.1-8.2 [facility] Comment on above: Performed By: #### C MP #### [facility] [address] [place] [address] Dr. Scooby Irvin Sodium [Moles/Vol] 138 mmol/L Normal 137-145 [facility] Comment on above: Performed By: #### C MP #### [facility] [address] [place] [address] Dr. Scooby Irvin Urea nitrogen [Mass/Vol] 15.0 mg/dL Normal 7.0-17.0 [facility] Comment on above: Performed By: #### C MP #### [facility] [address] [place] [address] Dr. Scooby Irvin Urea nitrogen/Creatinine [Mass ratio] 17.2 mg/mg Normal [facility] Comment on above: Performed By: #### C MP #### [facility] [address] [place] [address] Dr[address] CT SKULL BASE MID THIGHo n 04-07-[address] SKULL BASE MID THIGH EXAMINATION: PET CT SKULL BASE MID THIGH HISTORY: Lung field abnormal COMPARISON: CT lung cancer screening to 1021 TECHNIQUE: After obtaining the patient's consent, F-18 FDG was administered intravenously. PET/CT imaging was performed from skull to thigh with multi-planar imaging without oral or intravenous contrast material, using a dedicated integrated PET/CT scanner. FINDINGS: HEAD/NECK: Normal. No pathologic FDG activity. LUNGS: No pathologic FDG activity. No suspicious nodules on CT imaging. Evidence of chronic granulomatous disease. MEDIASTINUM/MICHAEL: Stable 2.5 cm round mass within the upper mediastinum along the right margin of the esophagus. No pathologic FDG activity within the lesion. CHEST WALL/AXILLA: Normal. No pathologic FDG activity. ABDOMEN: Cholelithiasis without inflammatory changes. No pathologic FDG activity. PELVIS: Normal. No pathologic FDG activity. BONES: Normal. No pathologic FDG activity. No suspicious lesions on CT imaging. OTHER: Negative. IMPRESSION: 1. No increased FDG activity within the upper mediastinal right paraesophageal mass versus lymph node; nonspecific but this favors benign etiology. 2. No additional or suspicious findings. Electronically authenticated by: FUENTES BARRETO Date: 2021-04-07 08:23 Normal [facility] CT LUNG CANCER SCREENINGon 0 03-23-2021 CT LUNG CANCER SCREENING EXAMINATION: CT LUNG CANCER SCREENING HISTORY: Tobacco dependence caused by cigarettes COMPARISON: No relevant comparison available. TECHNIQUE: Axial, Coronal, and Sagittal images were created without the administration of IV contrast material. Dose reduction techniques were achieved by using automated exposure control and/or adjustment of mA and/or kV according to patient size and/or use of iterative reconstruction technique. FINDINGS: LUNGS: Small amount of scarring versus discoid atelectasis within lung bases. A few calcified granulomas scattered within the lungs. PLEURA: No mass, effusion, or pneumothorax. VASCULATURE: No abnormality. MICHAEL: Calcified left hilar lymph nodes consistent with chronic granulomatous disease. MEDIASTINUM: 2.5 x 2.1 x 1.6 cm oval slightly hyperdense mass versus enlarged lymph node within the upper mediastinum above the level of the aortic arch, along the right side of the esophagus. CARDIAC: No enlargement, pericardial thickening, or significant calcification. AORTA: No aneurysm or dissection. CHEST WALL: Asymmetric fibroglandular tissue versus mass within the right breast. BONES: No bone lesion or fracture. LIMITED ABDOMEN: No suspicious findings. Limited images of the upper abdomen. OTHER: Negative. IMPRESSION: 1. LUNG SCREENING: Lung-RADS Category 4B- Suspicious. Findings for which additional diagnostic testing and/ or tissue sampling is recommended. Chest CT with contrast, PET/CT and/ or tissue sampling depending on the * probability of malignancy and comorbidities. PET/CT may be used when there is a >= 8 mm solid component. 2. Suspicious mass versus enlarged lymph node along the right margin of the esophagus within the upper mediastinum. PET imaging is recommended for further evaluation. No suspicious lung nodules. 3. Asymmetric fibroglandular tissue versus mass within the right breast; incompletely included on today's study. Diagnostic mammography is recommended. 4. Chronic granulomatous disease. Electronically authenticated by: FUENTES BARRETO Date: 2021-03-23 09:57 Normal [facility] CBC AUTO DIFFon 03-09-2021 BASO # 0.1 103/ul Normal 0.0-0.1 [facility] Comment on above: Performed By: #### C BC #### [facility] [address] [place] [address] Dr. Scooby Irvin Basophils/100 WBC (Bld) 1.2 % Normal 0.2-2.0 [facility] Comment on above: Performed By: #### C BC #### [facility] [address] [place] [address] Dr. Scooby Irvin EO # 0.1 103/ul Normal 0.0-0.7 [facility] Comment on above: Performed By: #### C BC #### [facility] [address] [place] [address] Dr. Scooby Irvin Eosinophils/100 WBC (Bld) 1.4 % Normal 0.9-7.0 [facility] Comment on above: Performed By: #### C BC #### [facility] [address] [place] [address] Dr. Scooby Irvin Erythrocyte distribution width (RBC) [Ratio] 16.3 % Critically high 11.0-15.0 [facility] Comment on above: Performed By: #### C BC #### [facility] [address] [place] [address] Dr. Scooby Irvin Hematocrit (Bld) [Volume fraction] 39.6 % Normal 36.0-48.0 [facility] Comment on above: Performed By: #### C BC #### [facility] [address] [place] [address] Dr. Scooby Irvin Hemoglobin (Bld) [Mass/Vol] 12.6 g/dL Normal 12.0-16.0 [facility] Comment on above: Performed By: #### C BC #### [facility] [address] [place] [address] Dr. Scooby Irvin IG # 0.01 10e3/ul Normal 0.00-0.03 [facility] Comment on above: Performed By: #### C BC #### [facility] [address] [place] [address] Dr. Scooby Irvin IG % 0.2 % Normal 0.0-0.5 [facility] Comment on above: Performed By: #### C BC #### [facility] [address] [place] [address] Dr. Scooby Irvin LYMPH # 1.6 103/ul Normal 1.2-3.8 [facility] Comment on above: Performed By: #### C BC #### [facility] [address] [place] [address] Dr. Scooby Irvin Lymphocytes/100 WBC (Bld) 30.7 % Normal 20.5-60.0 [facility] Comment on above: Performed By: #### C BC #### [facility] [address] [place] [address] Dr. Scooby Irvin MANUAL DIFF REQ NO Normal [facility] Comment on above: Performed By: #### C BC #### [facility] [address] [place] [address] Dr. Scooby Irvin MCH (RBC) [Entitic mass] 28.4 pg Normal 26.7-34.0 [facility] Comment on above: Performed By: #### C BC #### [facility] [address] [place] [address] Dr. Scooby Irvin MCHC (RBC) [Mass/Vol] 31.8 g/dL Normal 29.9-35.2 [facility] Comment on above: Performed By: #### C BC #### [facility] [address] [place] [address] Dr. Scooby Irvin MCV (RBC) [Entitic vol] 89.2 fL Normal 81.0-99.0 [facility] Comment on above: Performed By: #### C BC #### [facility] [address] [place] [address] Dr. cSooby Irvin MONO # 0.6 103/ul Normal 0.3-0.8 [facility] Comment on above: Performed By: #### C BC #### [facility] [address] [place] [address] Dr. Scooby Irvin Monocytes/100 WBC (Bld) 11.5 % Normal 1.7-12.0 [facility] Comment on above: Performed By: #### C BC #### [facility] [address] [place] [address] Dr. Scooby Irvin NEUT # 2.8 103/ul Normal 1.4-6.5 [facility] Comment on above: Performed By: #### C BC #### [facility] [address] [place] [address] Dr. Scooby Irvin Neutrophils/100 WBC (Bld) 55.0 % Normal 43.0-75.0 [facility] Comment on above: Performed By: #### C BC #### [facility] [address] [place] [address] Dr. Scooby Irvin Platelet mean volume (Bld) [Entitic vol] 10.3 fL Normal 9.5-13.5 [facility] Comment on above: Performed By: #### C BC #### [facility] [address] [place] [address] Dr. Scooby Irvin PLT 208 103/ul Normal 150-450 [facility] Comment on above: Performed By: #### C BC #### [facility] [address] [place] [address] Dr. Scooby Irvin RBC 4.44 106/ul Normal 4.20-5.40 [facility] Comment on above: Performed By: #### C BC #### [facility] [address] [place] [address] Dr. Scooby Irvin WBC 5.1 103/ul Normal 4.0-11.0 [facility] Comment on above: Performed By: #### C BC #### [facility] [address] [address] [address] Scooby Irvin FREE T4on 03-09-2021 Free T4 [Mass/Vol] 1.15 ng/dL Normal 0.78-2.19 [facility] Comment on above: Performed By: #### C BC #### [facility] [address] [address] [address] Scooby Irvin LIPID PROFILEon 03-09-2021 CHOL-HDL RATIO NORM SEE BELOW Normal [facility] Comment on above: Result Comment: 3.3 - 4.4 LOW RISK 4.4 - 7.1 AVERAGE RISK 7.1 - 11.0 MODERATE RISK >11.0 HIGH RISK Performed By: #### L IPID, CMP, TSH #### [facility] [address] [address] [address] Scooby Irvin Cholesterol [Mass/Vol] 227 mg/dL Critically high <=200 [facility] Comment on above: Performed By: #### L IPID, CMP, TSH #### [facility] [address] [address] [address] Scooby Irvin Cholesterol in HDL [Mass/Vol] 65 mg/dL Normal [facility] Comment on above: Performed By: #### L IPID, CMP, TSH #### [facility] [address] [address] [address] Scooby Irvin Cholesterol in LDL [Mass/Vol] 142.6 mg/dL Normal [facility] Comment on above: Performed By: #### L IPID, CMP, TSH #### [facility] [address] [address] [address] Scooby Irvin Cholesterol.total/Rachel sterol in HDL [Mass ratio] 3.5 {ratio} Normal [facility] Comment on above: Performed By: #### L IPID, CMP, TSH #### [facility] [address] [address] [address] Scooby Irvin HDL NORMAL > or = 60 mg/dl - LOW CARDIOVASCULAR RISK <40 mg/dl - HIGH CARDIOVASCULAR RISK Normal [facility] Comment on above: Performed By: #### L IPID, CMP, TSH #### [facility] [address] [address] [address] Scooby Irvin LDL CALC NORMAL SEE BELOW Normal [facility] Comment on above: Result Comment: <100 mg/dl OPTIMAL 100 - 129 mg/dl NEAR OR ABOVE OPTIMAL 130 - 159 mg/dl BORDERLINE HIGH 160 - 189 mg/dl HIGH >190 mg/dl VERY HIGH Performed By: #### L IPID, CMP, TSH #### [facility] [address] [address] [address] Scooby Irvin Triglyceride [Mass/Vol] 97 mg/dL Normal <=150 [facility] Comment on above: Performed By: #### L IPID, CMP, TSH #### [facility] [address] [address] [address] Scooby Irvin VLDL CALC 19.4 mg/dL Normal [facility] Comment on above: Performed By: #### L IPID, CMP, TSH #### [facility] [address] [address] [address] Scooby Irvin PROF 14(COMP METB)on 022 Albumin [Mass/Vol] 4.0 g/dL Normal 3.5-5.0 [facility] Comment on above: Performed By: #### L IPID, CMP, TSH #### [facility] [address] [address] [address] Scooby Irvin Albumin/Globulin [Mass ratio] 1.1 {ratio} Normal [facility] Comment on above: Performed By: #### L IPID, CMP, TSH #### [facility] [address] [address] [address] Scooby Irvin ALP [Catalytic activity/Vol] 80 U/L Normal 38-126 [facility] Comment on above: Performed By: #### L IPID, CMP, TSH #### [facility] [address] [address] [address] Scooby Irvin ALT [Catalytic activity/Vol] 35 U/L Normal 9-52 [facility] Comment on above: Performed By: #### L IPID, CMP, TSH #### [facility] [address] [address] [address] Scooby Irvin Anion gap [Moles/Vol] 11.8 mmol/L Normal [facility] Comment on above: Performed By: #### L IPID, CMP, TSH #### [facility] [address] [address] [address] Scooby Irvin AST [Catalytic activity/Vol] 24 U/L Normal 14-36 [facility] Comment on above: Performed By: #### L IPID, CMP, TSH #### [facility] [address] [address] [address] Scooby Irvin Bilirubin [Mass/Vol] 0.5 mg/dL Normal 0.2-1.3 [facility] Comment on above: Performed By: #### L IPID, CMP, TSH #### [facility] [address] [place] [address] Dr. Scooby Irvin Calcium [Mass/Vol] 9.3 mg/dL Normal 8.4-10.2 [facility] Comment on above: Performed By: #### L IPID, CMP, TSH #### [facility] [address] [place] [address] Dr. Scooby Irvin Chloride [Moles/Vol] 105 mmol/L Normal 98-107 [facility] Comment on above: Performed By: #### L IPID, CMP, TSH #### [facility] [address] [address] [address] Scooby Irvin CO2 [Moles/Vol] 26.2 mmol/L Normal 22.0-30.0 [facility] Comment on above: Performed By: #### L IPID, CMP, TSH #### [facility] [address] [place] [address] Dr. Scooby Irvin Creatinine [Mass/Vol] 0.83 mg/dL Normal 0.52-1.04 [facility] Comment on above: Performed By: #### L IPID, CMP, TSH #### [facility] [address] [address] [address] Scooby Irvin EGFR-AF HAITIAN >60 Normal >=60 [facility] Comment on above: Performed By: #### L IPID, CMP, TSH #### [facility] [address] [place] [address] Dr. Scooby Irvin EGFR-NON AF HAITIAN >60 Normal >=60 [facility] Comment on above: Performed By: #### L IPID, CMP, TSH #### [facility] [address] [address] [address] Scooby Irvin Globulin (S) [Mass/Vol] 3.8 g/dL Normal [facility] Comment on above: Performed By: #### L IPID, CMP, TSH #### [facility] [address] [place] [address] Dr. Scooby Irvin Glucose [Mass/Vol] 112 mg/dL Critically high 74-106 [facility] Comment on above: Performed By: #### L IPID, CMP, TSH #### [facility] [address] [place] [address] Dr. Scooby Irvin Potassium [Moles/Vol] 4.0 mmol/L Normal 3.4-5.0 [facility] Comment on above: Performed By: #### L IPID, CMP, TSH #### [facility] [address] [place] [address] Dr. Scooby Irvin Protein [Mass/Vol] 7.8 g/dL Normal 6.1-8.2 [facility] Comment on above: Performed By: #### L IPID, CMP, TSH #### [facility] [address] [place] [address] Dr. Scooby Irvin Sodium [Moles/Vol] 139 mmol/L Normal 137-145 [facility] Comment on above: Performed By: #### L IPID, CMP, TSH #### [facility] [address] [place] [address] Dr. Scooby Irvin Urea nitrogen [Mass/Vol] 15.0 mg/dL Normal 7.0-17.0 [facility] Comment on above: Performed By: #### L IPID, CMP, TSH #### [facility] [address] [address] [address] Scooby Irvin Urea nitrogen/Creatinine [Mass ratio] 18.1 mg/mg Normal [facility] Comment on above: Performed By: #### L IPID, CMP, TSH #### [facility] [address] [place] [address] Dr. Scooby Irvin TSHon 03-09-2021 TSH 2.761 uIU/mL Normal 0.470-4.680 [facility] Comment on above: Performed By: #### L IPID, CMP, TSH #### [facility] [address] [address] [address] Scooby Irvin TSH RANGE SEE BELOW Normal [facility] Comment on above: Result Comment: <0.3 4 UIU/ml HYPERTHYROID 0.34-5.60 UIU/ml EUTHYROID >5.60 UIU/ml HYPOTHYROID Performed By: #### L IPID, CMP, TSH #### [facility] [address] [place] [address] Dr. Scooby Irvin Vital Signs Date Time Vital Sign Value Performing Clinician Facility 09-04-2022 09:00-0400 Body height 140.97 cm Laurita Morales Other [employer] Other 09-04-2022 09:00-0400 Body mass index (BMI) [Ratio] 36.74 kg/m2 Laurita Morales Other [employer] Other 09-04-2022 09:00-0400 Body weight 73.03 kg Laurita Morales Other [employer] Other 09-04-2022 09:00-0400 Diastolic blood pressure 78 mm[Hg] Laurita Morales Other [employer] Other 09-04-2022 09:00-0400 SaO2% (BldA) [Mass fraction] 97 % Laurita Morales Other [employer] Other 09-04-2022 09:00-0400 Systolic blood pressure 132 mm[Hg] Laurita Morales Other [employer] Other 03-01-2022 10:30-0500 Body height 140.97 cm Laurita Morales Other [employer] Other 03-01-2022 10:30-0500 Body mass index (BMI) [Ratio] 36.06 kg/m2 Laurita Morales Other [employer] Other 03-01-2022 10:30-0500 Body weight 71.67 kg Laurita Morales Other [employer] Other 03-01-2022 10:30-0500 Diastolic blood pressure 84 mm[Hg] Laurita Morales Other [employer] Other 03-01-2022 10:30-0500 SaO2% (BldA) [Mass fraction] 98 % Laurita Morales Other [employer] Other 03-01-2022 10:30-0500 Systolic blood pressure 132 mm[Hg] Laurita Morales Other [employer] Other 11-08-2021 10:17-0400 Diastolic blood pressure 74 mm[Hg] Farooq SALAM [facility] 11-08-2021 10:17-0400 Mean blood pressure 99 mm[Hg] Farooq SALAM [facility] 11-08-2021 10:17-0400 Systolic blood pressure 148 mm[Hg] Farooq SALAM [facility] 11-08-2021 10:15-0400 Blood Pressure Location Farooq SALAM [facility] 11-08-2021 10:15-0400 Diastolic blood pressure 95 mm[Hg] Farooq SALAM [facility] 11-08-2021 10:15-0400 Heart rate 78 /min Farooq SALAM [facility] 11-08-2021 10:15-0400 Respiratory rate 16 /min Farooq SALAM [facility] 11-08-2021 10:15-0400 Systolic blood pressure 159 mm[Hg] Farooq SALAM [facility] 05-10-2021 11:11-0400 Diastolic blood pressure 90 mm[Hg] Farooq SALAM [facility] 05-10-2021 11:11-0400 Systolic blood pressure 180 mm[Hg] Farooq SALAM [facility] Encounters Encounter Date Encounter Type Care Provider Facility Start: 03-07-2023 End: 03-07-2023 ambulatory Laurita Morales Other [employer] Other Start: 03-07-2023 Office outpatient vi sit 15 minutes Laurita Morales [facility] Start: 09-20-2022 End: 09-20-2022 ambulatory Laurita Morales Other [employer] Other Start: 09-20-2022 Telephone encounter Laurita Morales [facility] Start: 09-04-2022 End: 09-04-2022 ambulatory Laurita Morales Other [employer] Other Start: 09-04-2022 Patient encounter procedure Laurita Morales [facility] Start: 04-19-[address] LAURITA MORALES Facil ity:[facility] Start: 03-01-2022 End: 03-01-2022 ambulatory Laurita Morales Other [employer] Other Start: 03-01-2022 Office outpatient vi sit 15 minutes Laurita Morales [facility] Start: 01-18-2022 End: 01-19-[address] LAURITA MORALES Facility:[facility] Start: 11-21-2021 End: 11-22-2021 ambulatory CAPRI ROA Facility:[facility] Start: 11-08-2021 End: 11-09-2021 [facility] Start: 11-08-2021 End: 11-08-2021 Patient encounter procedure [facility] Start: 10-19-2021 End: 10-20-[address] LAURITA MORALES Facility:[facility] Start: 09-27-2021 End: 09-28-[address] LAURITA MORALES Facility:[facility] Start: 09-26-2021 End: 09-26-[address] LAURITA MORALES Facility:[facility] Start: 09-25-2021 Encounter for preprocedural laboratory examination DR RADHA IRAHETA [facility] Start: 09-22-2021 End: 09-23-[address] LAURITA MORALES Facility:[facility] Start: 09-22-2021 End: 09-23-2021 Encounter for preprocedural laboratory examination DR LAURITA MORALES Facility:[facility] Start: 09-11-[address] LAURITA MORALES Facil ity:[facility] Start: 09-06-2021 End: 09-07-2021 ambulatory ROBERTO MCNALLY Facility:[facility] Start: 08-30-2021 Adult health examination Malia Morales Other [employer] Other Start: 06-22-2021 End: 06-23-2021 ambulatory CAPRI ROA Facility:[facility] Start: 05-31-2021 End: 05-31-2021 ambulatory Luis Gutierrez Facility:[facility] Start: 05-26-2021 End: 05-26-2021 ambulatory Laurita Morales Facility:[facility] Start: 05-26-2021 End: 05-26-2021 Patient encounter procedure MD Cy Sears Work Phone: [facility] Start: 05-22-2021 End: 05-23-[address] LAURITA MORALES Facility:[facility] Start: 05-10-2021 ambulatory Farooq SALAM Facility:[facility] Start: 05-10-2021 End: 05-11-2021 ambulatory [facility] Start: 05-10-2021 End: 05-10-2021 Patient encounter procedure [facility] SAL[facility] Start: 05-09-2021 ambulatory Farooq SALAM Facility:[facility] Start: 05-04-2021 End: 05-04-2021 ambulatory Cy Sears Facility:[facility] Start: 05-04-2021 End: 05-04-2021 Patient encounter procedure MD Cy Sears Work Phone: [facility] [place] Start: 04-20-2021 End: 04-21-2021 ambulatory FAROOQ SALAM Facility:[facility] Start: 04-05-2021 ambulatory Farooqsabrina ROA Facility:[facility] Start: 04-01-2021 End: 04-02-[address] LAURITA MORALES Facility:[facility] Start: 03-23-2021 End: 03-24-[address] LAURITA MORALES Facility:[facility] Start: 03-09-2021 End: 03-10-[address] LAURITA MORALES Facility:[facility] Start: 01-24-2021 ambulatory Farooqsabrina ROA [facility] Procedures Date Procedure Procedure Detail Performing Clinician Start: 05-31-2021 Antibody screen Keylaami tobias Gutierrez Comment on above: Order Comment: Trans fuse now? N Result Comment: PERF ORMED BY: [facility] [address] [place] [address] PATHOLOGIST [employer]ATION MANAGER TRICIA OSHEA M.D. Start: 02-16-2020 Colonoscopy w/biopsy single/multiple Farooq SALAM Colonoscopy Farooq SALAM Screening for malign ant neoplasm of breast Laurita Morales Other Immunizations Immunization Date Immunization Notes Care Provider Lorrie ng 12-09-2020 COVID-19 mRNA-1273 (Moderna) MD Cy Sears Work Phone: [facility] 11-15-2020 influenza virus vaccine, split virus (incl. purified surface antigen) Laurita Morales Other [facility] [employer] Other 11-11-2020 [facility], [facility] 04-26-2020 COVID-19 mRNA-1273 (Moderna) MD Cy Sears Work Phone: [facility] 03-23-2020 COVID-19 mRNA-1273 (Moderna) MD yC Sears Work Phone: [facility] 11-20-2019 influenza virus vaccine, split virus (incl. purified surface antigen) Laurita Morales Other [employer] Other 10-24-2016 influenza virus vaccine, split virus (incl. purified surface antigen) Laurita Morales Other [employer] Other 10-24-2016 pneumococcal conjuga te vaccine, 13 valent Laurita Morales Other [employer] Other 08-31-2014 tetanus toxoid, reduced diphtheria toxoid, and acellular pertussis vaccine, adsorbed Laurita Morales Other [employer] Other 11-30-2013 pneumococcal polysaccharide vaccine, 23 valent Laurita Morales Other [employer] Other NEGATED: Highlighted row has not occurred!11-08-2021 influenza virus vaccine, unspecified formulation Capri ROA [facility] Payers Date Payer Category Payer Self-pay [id number] 1961 Medicare [id number] 1961 Unknown [id number] 1948 Unknown [id number] 2.16.8 40.1.579971.3.579.2.727 1948 Unknown [id number] 2.16.8 40.1.362921.3.579.2.727 1948 Unknown [id number] 2.16.84 0.1.756909.3.579.2.727 1948 Unknown [id number] 2.16.84 0.1.661714.3.579.2.593 1948 Unknown [id number] 2.16.84 0.1.897561.3.579.2.593 1948 Unknown [id number] 2.16.84 0.1.070721.3.579.2.593 1948 Unknown [id number] 2.16.84 0.1.273387.3.579.2.593 1948 Unknown [id number] 2.16.84 0.1.130048.3.579.2.593 1948 Unknown [id number] 2.16.84 0.1.996041.3.579.2.593 1948 Unknown [id number] 2.16.84 0.1.543427.3.579.2.593 1948 Unknown [id number] 2.16.84 0.1.683350.3.579.2.593 1948 Unknown [id number] 2.16.84 0.1.004437.3.579.2.593 1948 Unknown [id number] 2.16.84 0.1.891180.3.579.2.593 1948 Unknown [id number] 2.16.84 0.1.496606.3.579.2.593 1948 Unknown [id number] 2.16.84 0.1.139731.3.579.2.593 1948 Unknown [id number] 2.16.84 0.1.969637.3.579.2.593 1948 Unknown [id number] 2.16.84 0.1.919217.3.579.2.593 1948 Unknown [id number] 2.16.84 0.1.102243.3.579.2.593 1948 Unknown [id number] 2.16.84 0.1.481502.3.579.2.593 1948 Unknown [id number] 2.16.84 0.1.400387.3.579.2.593 Medicare Self Pay [id number] Private Health Insurance CLI [id number] 2.16.840.1.535679.19 Unknown [id number] 2.16.8 40.1.063285.3.579.2.531 Unknown [id number] 2.16.8 40.1.558076.3.579.2.531 Unknown [id number] 2.16.8 40.1.435106.3.579.2.531 Social History Date Type Detail [facility] Work Phone: Start: 1950 Sex Assigned At Female F [facility] Start: 05-10-2021 End: 11-08-2021 Tobacco smoking status Heavy tobacco smoker (finding) [facility] Sex Assigned At Female [facility] Start: 05-26-2021 Tobacco smoking stat us NHIS Smoker (finding) [facility] Functional Status Date Assessment Result Facility 11-08-2021 Functional Status N/A [facility] Clinical Notes 01-24-2021 to 03-07-2023 Note Date & Type Note Facility 03-07-2023 Evaluation note Encounter Date Diagnosis Assessment Notes Feb, Dyslipidemia (ICD-10 - E78.5) Check labs as indicated in the summer. Take medication as prescribed, keep follow up appointments, get any testing that's been ordered done in a timely fashion. Do not smoke. Call if any questions or problems. For Cholesterol: Patient is advised to work on healthy diet choices and appropriate servings, weight control, regular exercise as directed, and reduce fat intake. Feb, Hypothyroidism, unspecified (ICD-10 - E03.9) Asymptomatic at this time, Denies any unexplained weight change, hair loss or fatigue. Patient to continue with above medication and we will continue to monitor through routine blood work [employer] Other 08-10-2023 Evaluation note* Encounter Date Diagnosis Assessment Notes Treatment Notes Treatment Clinical Notes Sep, Right foot pain (ICD-10 - M79.671) [facility] [employer] Other 07-25-2023 Evaluation note* Encounter Date Diagnosis Assessment Notes Treatment Notes Treatment Clinical Notes Aug, Medicare annual wellness visit, subsequent (ICD-10 - Z00.00) Personalized health advice was given to the beneficiary including a written plan for screenings discussed and provided. Advanced care planning reviewed and/or information given as requested. Additional counseling was provided here today in regards to, [ ]. The above visit was performed by [ ], under direct supervision of [ ]. Document reviewed and amended by provider signed below. Aug, Right foot pain (ICD-10 - M79.671) Check xray to r/o stress fracture - consider podiatry referral. Aug, Iliotibial band syndrome, left leg (ICD-10 - M76.32) order given to pt for PT. Aug, Iliotibial band syndrome, left leg (ICD-10 - M76.32) order given to pt for PT. Aug, Iliotibial band syndrome, left leg (ICD-10 - M76.32) order given to pt for PT. Aug, Iliotibial band syndrome, left leg (ICD-10 - M76.32) order given to pt for PT. Aug, Dyslipidemia (ICD-10 - E78.5) Due for labs - continue present med Aug, Screening mammogram for breast cancer (ICD-10 - Z12.31) Feb, Hypothyroidism, unspecified (ICD-10 - E03.9) Chronic problem due for labs. [employer] Other 01-19-2023 Evaluation note* Encounter Date Diagnosis Assessment Notes Treatment Notes Treatment Clinical Notes Feb, Hypothyroidism, unspecified type (ICD-10 - E03.9) Reviewed labs stable on present dose Feb, Depression with anxi ety (ICD-10 - F41.8) Increased symptoms in winter overall doing well Feb, Gastroesophageal ref lux disease, unspecified whether esophagitis present (ICD-10 - K21.9) Stable on present medicines Feb, Acquired hyperlipoproteinemia (ICD-10 - E78.5) Due for labs in summer. [employer] Other 12-08-2022 NoteCONSULTATION PROCEDURE DATE: 01/18/2022 PREOPERATIVE DIAGNOSIS: Left lumbar paravertebral spasm. POSTOPERATIVE DIAGNOSIS: Left lumbar paravertebral spasm. PROCEDURE: Left lumbar trigger point injection. Subsequent to obtaining informed consent, the patient was placed in an upright standing forward flexion position. Alcohol prep was used to sterilize the site. A 25 gauge needle with 0.125% Marcaine and 40 mg of Kenalog was placed to rest inside the muscle. Negative heme. Medication was injected in a slow, fan- like pattern, and patient tolerated the procedure well. She will be followed up in the office.[facility] [id number] NoteCONSULTATION CONSULTATION DATE: 01/18/2022 HISTORY OF PRESENT ILLNESS: This is a 71-year-old female returning to the clinic for a three month follow up for chronic lower back pain. Today, she presents with left lower lumbar pain. She describes as 5/10 and a deep ache. Patient had radiofrequency ablation on the left side on 09/26/2021. At her last office visit on 10/19/2021, she did receive a left lumbar trigger point injection which did gain her some short term relief. Medications include Zanaflex 4 mg q.h.s., Mobic 15 mg daily and Xanax as needed. Activities that aggravate her left lower lumbar pain include prolonged standing, walking, vacuuming the house, housework and lifting. She does sit in her hot tub and use heat application, which decreases her pain. Patient's REVIEW OF SYSTEMS / PAST MEDICAL HISTORY / ALLERGIES and IMAGES have been reviewed and noted on the chart. PHYSICAL EXAM: VITAL SIGNS: Blood pressure 159/78, heart rate is 79. She is 4'10 , weighs 71 kg. GENERAL APPEARANCE: Pleasant, appropriate, no acute distress. FOCUSED EXAM - BACK: Range of motion is functional in lateral rotation and flexion/extension. Paravertebral muscles are taut with a trigger point identified to the left lower erector spinae muscle. Compression in that area reproduces the patient's pain symptomatology. No spinal axial pain to direct compression along the lumbar facets. Pain is non-radiating. MUSCULOSKELETAL: Motor is 4/5 bilaterally. Patient walks unassisted with a stable gait. NEUROLOGICAL: Radicular sensory is intact. Reflexes are +2 bilaterally. DIAGNOSIS: Left lumbar paravertebral spasm, lumbar spondylosis, lumbar degenerative disc disease. PLAN: Patient will receive a left lumbar trigger point injection in the clinic, which she does consent to. I recommended a deep tissue massage and to continue with her heat and stretches. Patient will be seen in the clinic in three months' time, unless otherwise indicated.[facility] [id number] Evaluation + Plan note Diagnostic Tests Pending * CBC w/ Auto Diff 11/08/21 * Comprehensive Metabolic Panel 11/08/21 [facility] 09-08-2022 NoteCONSULTATION PROCEDURE DATE: 11/16/2021 PRE AND POSTOPERATIVE DIAGNOSIS: Left lumbar paravertebral spasm. PROCEDURE: Left lumbar trigger point injection. Subsequent to obtaining informed consent, the patient was placed in the upright standing forward flexion position. Alcohol prep was used to sterilize the site. 25-gauge needle with 0.125% Marcaine and 40 mg of Kenalog for a total volume of 3 cc was placed to rest inside the trigger zone. Negative heme. Medication was injected in a slow and steady pattern and the patient tolerated the procedure well. She will be followed up in the office.[facility] 10-19-2021 NoteCONSULTATION CONSULTATION DATE: 10/19/2021 This is a 71-year-old female who returns to the clinic status post left-sided lumbar RFA of L2, L3 and L4, L5 completed on 09/26/2021. The patient states at this time it has given her 50% relief but she is complaining of left lower lumbar tightness. She states it radiates to her hip with activities such as standing, transitioning positions, and walking. She currently diffuses heat very sparingly at this time. Current medications include Zanaflex 4 mg q.h.s., Mobic 50 mg q. day. She denies any new vasomotor weakness. REVIEW OF SYSTEMS, PAST MEDICAL HISTORY, ALLERGIES AND IMAGES: Have been reviewed and noted in the chart. PHYSICAL EXAM: VITAL SIGNS: Blood pressure 149/71, heart rate is 74. Height is 4'10 , weighs 71 kg. GENERAL APPEARANCE: Appropriate, in no acute distress FOCUSED EXAM: BACK: Range of motion is functional, lateral rotation and flexion/extension. No reproduction of spinoaxial pain indicative of successful RFA. Left lower lumbar paravertebral muscles are taut with trigger point identified. Positive jump response. Kalpana's point is nontender. MUSCULOSKELETAL: Motor is intact 4 out of 5 bilaterally. The patient walks with a stable gait, does not use assistive device. NEUROLOGICAL: Radicular sensory is intact. Negative polyneuropathy. Intact patellar reflexes, +2 bilaterally. DIAGNOSIS: Left lumbar spine, lumbar spondylosis, lumbar degenerative disk disease. PLAN: The patient will receive a left lumbar trigger point injection in the clinic which she does agree to. Stretches were discussed and demonstrated and the patient is to use heat and menthol heat rub 2-3 times daily. Nutrition and vitamin importance was discussed. The patient will follow-up at the clinic in three months' time unless otherwise indicated.[facility] [id number] NoteCONSULTATION CONSULTATION DATE: 09/06/2021 HISTORY OF PRESENT ILLNESS: This is a 71-year-old female returning to the clinic for a four month follow up for her chronic lower back and buttock pain. She was last seen on 04/20/2021 and was, at that time, doing well on diclofenac, tizanidine and her vitamins. She reports taking baclofen 10 mg three times a day. She complains of depression today and increased pain. She rates her pain 8/10. She has been following up with [facility] and had a benign fibroid tumor removal this past spring. Current medications include Ceftin, Vitamin D, phosphorus, Alprazolam, Lexapro and tizanidine. She no longer takes diclofenac but takes Advil p.r.n. Activities such as standing, sleeping and bending greatly aggravate her pain. Mitigating factors include sitting, icing and swimming in her pool. She did have a successful lumbar radiofrequency ablation over a year ago, and patient reports her pain symptomatology is very similar to her prior lumbar pain. Patient's REVIEW OF SYSTEMS / PAST MEDICAL HISTORY / ALLERGIES / IMAGES have been reviewed and they are noted in the chart. PHYSICAL EXAM: GENERAL APPEARANCE: Pleasant, appropriate, flat affect. Uncomfortable in the chair. FOCUSED EXAM - BACK: Range of motion is guarded in lateral rotation and flexion/extension. Paravertebral muscles are taut but non-spasmodic, left greater than right. Reproduction of spinal axial pain to compression along the lumbar facets of L2, L3 and L4, L5 bilaterally, left greater than the right. Kalpana's point is non-tender with no radiating pain. MUSCULOSKELETAL: Motor is 4/5 bilaterally. She will occasionally use a cane to assist with ambulation. No obvious foot drop or leg drag. Weakness noted bilaterally to anterior tibialis and peroneus longus. NEUROLOGICALLY: Radicular sensory is intact. +1 bilateral patellar and Achilles reflexes. DIAGNOSIS: Lumbar spondylosis, lumbar degenerative disc disease, spinal axial lower back pain. PLAN: We will gain authorization to repeat radiofrequency ablation on the left lumbar side only of L2, L3 and L4, L5. We will add meloxicam 15 mg daily to help with her pain. I discussed with her regarding her depression and the medication use. She is to stop her baclofen t.i.d. during the day and just continue with tizanidine 4 mg at bedtime. She is directed to stop Xanax at bedtime as well. She will follow up in the clinic post procedure, and patient agrees to move forward.[facility] [id number] NoteCONSULTATION PAIN MANAGEMENT CONSULTATION HISTORY: This is a pleasant, 71-year-old female returning to the clinic for a three month appointment. She has chronic lower back pain, lumbar spondylosis and left hip pain. Today, she rates her pain as a 3-4/10 and just a constant ache. She did have successful RFAs to L2, L3 and L4, L5 in November and December of 2020. Overall, she feels her back is doing quite well, but has residual left hip pain. It is non-bursa related but believed to be originating from her lumbar spine. Activities that aggravate her pain are pushing, pulling, stairs and bending. The use of heat and sitting still decrease her pain. She is currently having other medical workups with eye issues and having a PET scan resulting in a benign spot on her chest. Medications include baclofen 10 mg q.h.s., diclofenac 50 mg b.i.d. The patient feels the baclofen is not very helpful and has stopped taking it. She has replaced it with ibuprofen p.r.n. Patient's REVIEW OF SYSTEMS / PAST MEDICAL HISTORY / ALLERGIES and IMAGES have been reviewed and are noted in the chart. PHYSICAL EXAM: VITALS: Blood pressure is 132/74, heart rate is 71. Height is 4'10 and weighs 71 kg. GENERAL APPEARANCE: No acute distress, pleasant and appropriate. BACK: Reproduction of minor spinal axial pain noted to direct compression on the left side of L4, L5 with radiating to her left hip and buttock, concordant facet arthropathy, lumbar spondylosis to the left. Paravertebral muscles supple. Range of motion - Lateral rotation, flexion/extension within functional limits. Kalpana's point bilaterally non-tender. MUSCULOSKELETAL: Motor is intact, 4/5 bilaterally. Ambulates with steady gait. Does not use assistive device. NEUROLOGICAL: Radicular sensory is intact. Negative polyneuropathy. IMPRESSION: Lumbar spondylosis, lumbar degenerative disc disease, left hip pain. PLAN: We will change her muscle relaxer to tizanidine 4 mg q.h.s. Patient was instructed to stop her baclofen. She is to continue using Advil 400-600 mg q. 6 p.r.n. as needed and to stop the diclofenac. Nutrition and vitamin importance was stressed today and she is compliant with her vitamin regimen. Patient prefers to call for the next needed appointment, but was explained we will need it within six months' time to maintain her medications. Patient agrees with the plan of care and will call when needed. [facility] Signed and Approved by: ROBERTO MCNALLY . 04/27/2021 12:41:00[facility]12-14-2021 Hospital Discharge instructions Follow Up Care 01/24/2021 10:04:31 With:JANINA ALARCON, LENORE Farooq, [facility] Address: [facility] Care [address] [place], [place] [address]hung [place] [address]- When:6 months [facility] Evaluation + Plan note Future Appointments Appointment Date:11/08/2021 10:15:00 AM Scheduled Provider:Capri ROA MD Location:[facility] Appointment Type:[facility] Follow Up Future Scheduled Tests Laboratory* CBC w/ Indices 07/25/20 * Comprehensive Metabolic Panel 07/25/20 [facility] Evaluation noteNo assessment information available [facility] Work Phone: [facility] Narrative - Reported* Type Description Date Medical History GERD Medical History Hypothyroid Medical History Depression Surgical History Appendectomy Surgical History Tubal Ligation Surgical History Right carpal tunnel Surgical History Right finger Surgical History 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 Hospitalization History See past surgical hx [employer] Other Hospital course Narrative No data available for this section [facility] Hospital Discharge instructions No data available for this section [facility] Progress note No data available for this section [facility] Chief Complaint and Reason for Visit Chief Complaint Esophageal Mass Chief Complaint Esophageal Mass Right Substernal Thyroid Goiter Advance Directives Advance Directive Response Recorded Date/ Time Advance Directives No March 23rd, 2 022 9:14am Summary Purpose Family History Relationship Condition Age at Onset Recorded Date/T michelle father Diabetes mellitus Unknown Cerebrovascular accident (CVA) Unknown Reason for Referral Reason *FU 09/27 R foot p ain. Had Xray Diagnosis 1 Right foot pain (M79 .671) Referral Organization [facility] Referring Provider First Name Laurita Referring Provider Last Name Robin Referring Provider Specialty Family [facility] Referred Organization [facility] Referred Provider Seymour Johnson Referred Address [address], [place],[address] Referred Provider Specialty Podiatry - S urgical Chiropody Referral Priority Routine General Notes Traci Lema 03:01:16 PM >received today, attachments made, notes locked, referral faxed Additional Source Comments Care Teams (unrecognized sec tion and content) Team Status: Inactive Member Role Status Dates Cy Sears MD Attending Provider Active Laurita Morales MD Primary Care Provider Active Team Status: Active Member Role Status Dates Laurita Morales MD Primary Care Provider Active Team Status: Inactive Member Role Status Dates Laurita Morales MD Primary Care Provider Active Luis Gutierrez DO Attending Provider Active Goals (unrecognized section and content) Goals may be documented in a n alternate section No data available for this sectionGoals may be documented in an alternate section No data available for this sectionNo InformationNo InformationNo InformationNo Information INFORMATION SOURCE (unrecogn ized section and content) DATE CREATED AUTHOR 05/23/2021 [facility] dical Specialist DATE CREATED AUTHOR AUTHOR'S ORGANIZ ATION 11/14/2021 [facility] DATE CREATED AUTHOR AUTHOR'S ORGANIZ ATION 01/23/2022 [facility] DATE CREATED AUTHOR AUTHOR'S ORGANIZ ATION 03/17/2022 [facility] REASON FOR VISIT (unrecogniz ed section and content) 6 MONTH CHECK UP [facility] xray6 month Follow up FOR RECORDS PERTAINING TO PATIENTS WHO ARE OR HAVE BEEN ENROLLED IN A CHEMICAL DEPENDENCY/SUBSTANCEABUSE PROGRAM, SOME INFORMATION MAY BE OMITTED. This clinical summary was aggregated from multiple sources. Caution should be exercised in using it in the provision of clinical care. This summary normalizes information from multiple sources, and as a consequence, information in this document may materially change the coding, format and clinical context of patient data. In addition, data may be omitted in some cases. CLINICAL DECISIONS SHOULD BE BASED ON THE PRIMARY CLINICAL RECORDS. [facility] [employer] [facility] provides no warranty or guarantee of the accuracy or completeness of information in this document.
== END 2023-04-01 09:33 | disposition home or self-care (01) ==
LOC: EC 09:33
PROVIDERS: PCP Family Medicine; Visit Provider Orthopaedic Surgery
DX: M25.561 Pain in right knee (principal)
CPT/HCPCS: 73564

== ENCOUNTER 2023-05-07 09:03 | Outpatient (OUT) | payer MEDICARE, OTHER, SELFPAY ==
[2023-05-07 10:37] LABS: Alanine Aminotransferase 39 U/L (14-59); Albumin Level 3.7 g/dL (3.4-5.0); Alkaline Phosphatase 82 U/L (46-116); Aspartate Amino Transferase 34 U/L (15-37); Bilirubin Direct 0.1 mg/dL (0.0-0.2); Bilirubin Total 0.8 mg/dL (0.2-1.0); Estimated GFR (African America >60 (>=60); Estimated GFR (Non-African Ame >60 (>=60); Globulin 3.6 g/dL; Total Protein 7.3 g/dL (6.4-8.2)
== END 2023-05-07 09:04 | disposition home or self-care (01) ==
LOC: LAB 09:03
PROVIDERS: PCP Family Medicine; Visit Provider Orthopaedic Surgery
DX: Z79.1 Long term (current) use of non-steroidal anti-inflammatories (NSAID) (principal)
CPT/HCPCS: 36415; 80076; 82565; 84520

== ENCOUNTER 2023-06-04 11:26 | Outpatient (OUT) | payer MEDICARE, OTHER, SELFPAY ==
--- NOTE | 2023-06-04 | XR_ITS ---
The [address] [address] Patient Name: ALEXANDRA GARDNER MRN: [id number] date: 1950 Sex: F Assigned Patient Location: Current Patient Location: Accession/Order Number: [id number] Exam Date: 06/04/2023 11:31 Report Date: 06/04/2023 13:35 At the request of: ADA ROLLINS Procedure: XR foot RT min 3V PROCEDURE: XR ankle RT min 3V, XR foot RT min 3V COMPARISON: 09/26/2022 HISTORY: RIGHT ANKLE PAIN FINDINGS: BONES:No acute fracture or dislocation. Moderate enthesopathic spurring of the calcaneus at the plantar insertion. 3 mm corticated calcific density medial to the medial cuneiform likely remote injury or degenerative change SOFT TISSUES:Mild bimalleolar soft tissue swelling EFFUSION:None visible. OTHER: Negative. XR/XR foot RT min 3V IMPRESSION: Bimalleolar soft tissue swelling No acute fracture of the foot or ankle Electronically authenticated by: LONNY CULLEN Date: 06/04/2023 13:35
--- NOTE | 2023-06-04 | XR_ITS ---
The [address] [address] Patient Name: ALEXANDRA GARDNER MRN: [id number] date: 1950 Sex: F Assigned Patient Location: Current Patient Location: Accession/Order Number: [id number] Exam Date: 06/04/2023 11:31 Report Date: 06/04/2023 13:35 At the request of: ADA ROLLINS Procedure: XR ankle RT min 3V PROCEDURE: XR ankle RT min 3V, XR foot RT min 3V COMPARISON: 09/26/2022 HISTORY: RIGHT ANKLE PAIN FINDINGS: BONES:No acute fracture or dislocation. Moderate enthesopathic spurring of the calcaneus at the plantar insertion. 3 mm corticated calcific density medial to the medial cuneiform likely remote injury or degenerative change SOFT TISSUES:Mild bimalleolar soft tissue swelling EFFUSION:None visible. OTHER: Negative. XR/XR ankle RT min 3V IMPRESSION: Bimalleolar soft tissue swelling No acute fracture of the foot or ankle Electronically authenticated by: LONNY CULLEN Date: 06/04/2023 13:35
== END 2023-06-04 11:27 | disposition home or self-care (01) ==
LOC: EC 11:27
PROVIDERS: PCP Family Medicine; Visit Provider Podiatrist Foot & Ankle Surgery
DX: M79.671 Pain in right foot (principal); M25.571 Pain in right ankle and joints of right foot; M25.471 Effusion, right ankle
CPT/HCPCS: 73610; 73630

== ENCOUNTER 2023-06-10 12:09 | Outpatient (RCR) | payer MEDICARE, OTHER, SELFPAY | END 2023-06-20 12:40 | disposition home or self-care (01) | LOC: PT 12:09 | PROVIDERS: PCP Family Medicine; Visit Provider Podiatrist Foot & Ankle Surgery | DX: M76.71 Peroneal tendinitis, right leg (principal) | CPT/HCPCS: 97110; 97161 ==

== ENCOUNTER 2023-08-19 07:46 | Outpatient (OUT) | payer MEDICARE, OTHER, SELFPAY ==
--- OUTSIDE RECORDS SUMMARY | 2023-08-19 07:49 | XMS_ITS | CCD ---
Author Organization [facility] Care Team Providers Care Solution Analyst Name Role Phone MD Cy Sears Attending Provider MD Danyell Morales Primary Care Provider DANYELL MORALES Primary Care Physician [phone] DO Luis Gutierrez Attending Provider [phone] Capri ROA Attending Unavailable SALAM, Capri Attending Unavailable SALAM, Capri Attending Unavailable MORALES, DR DANYELL Solis Attending Unavailable MORALES, DR DANYELL Solis Admitting Unavailable MORALES, DR DANYELL Solis Primary Care Unavailable ESTEVAN, DR VALENTE Salas Consulting Unavailable MORALES, DR DANYELL Solis Consulting Unavailable MORALES, DR DANYELL Solis Attending Unavailable MORALES, DR DANYELL Solis Admitting Unavailable MORALES, DR DANYELL Solis Primary Care Unavailable MORALES, DR DANYELL Solis Consulting Unavailable SALAM, CAPRI Consulting Unavailable SALAM, CAPRI Admitting Unavailable SALAM, CAPRI Attending Unavailable MORALES, DR DANYELL Solis Primary Care Unavailable MORALES, DR DANYELL Solis Primary Care Unavailable MORALES, DR DANYELL Solis Admitting Unavailable MORALES, DR DANYELL Solis Consulting Unavailable MORALES, DR DANYELL Solis Attending Unavailable MORALES, DR DANYELL Solis Primary Care Unavailable ESEQUIEL, DR RADHA Whitfield Admitting Unavailable IRAHETA, DR RADHA Whitfield Attending Unavailable ESEQUIEL, DR RADHA Whitfield Consulting Unavailable MORALES, DR DANYELL Solis Attending Unavailable MORALES, DR DANYELL Solis Admitting Unavailable MORALES, DR DANYELL Solis Consulting Unavailable MORALES, DR DANYELL Solis Primary Care Unavailable MORALES, DR DANYELL Solis Primary Care Unavailable IRAHETA, DR RADHA Whitfield Attending Unavailable IRAHETA, DR RADHA Whitfield Admitting Unavailable ROBERTO MCNALLY Consulting Unavailable SALAM, CAPRI Admitting Unavailable MORALES, DR DANYELL Solis Primary Care Unavailable SALAM, CAPRI Attending Unavailable DR LUIS GUTIERREZ Consulting Unavailable MORALES, DR DANYELL Solis Primary Care Unavailable MORALES, DR DANYELL Solis Admitting Unavailable MORALES, DR DANYELL Solis Attending Unavailable SWENGEL, DR LONNY Wiggins Consulting Unavailable MORALES, DR DANYELL Solis Consulting Unavailable MORALES, DR DANYELL Solis Primary Care Unavailable ESEQUIEL, DR RADHA Whitfield Attending Unavailable ESEQUIEL, DR RADHA Whitfield Consulting Unavailable ESEQUIEL, DR RADHA Whitfield Admitting Unavailable SABINA STONE Consulting Unavailable MORALES, DR DANYELL Solis Primary Care Unavailable ESEQUIEL, DR RADHA Whitfield Admitting Unavailable ESEQUIEL, DR RADHA Whitfield Attending Unavailable ROBERTO MCNALLY Consulting Unavailable MORALES, DR DANYELL Solis Primary Care Unavailable IRAHETA, DR RADHA Whitfield Attending Unavailable IRAHETA, DR RADHA Whitfield Admitting Unavailable MORALES, DR DANYELL Solis Primary Care Unavailable IRAHETA, DR RADHA Whitfield Admitting Unavailable IRAHETA, DR RADHA Whitfield Attending Unavailable IRAHETA, DR RADHA Whitfield Consulting Unavailable ULI, ROBERTO Consulting Unavailable ULI, ROBERTO Consulting Unavailable MORALES, DR DANYELL Solis Primary Care Unavailable IRAHETA, DR RADHA Whitfield Attending Unavailable ESEQUIEL, DR RADHA Whitfield Admitting Unavailable MORALES, DR DANYELL Solis Primary Care Unavailable ESEQUIEL, DR RADHA Whitfield Attending Unavailable ESEQUIEL, DR RADHA Whitfield Admitting Unavailable SALAMCAPRI Admitting Unavailable MORALES, DR DANYELL Solis Primary Care Unavailable SALAM, CAPRI Attending Unavailable SALAM, CAPRI Consulting Unavailable MORALES, DR DANYELL Solis Primary Care Unavailable MISC, DR HIDALGO Admitting Unavailable MISC, DR HIDALGO Attending Unavailable MISC, DR HIDALGO Consulting Unavailable Luis Gutierrez Admitting Unavailable Danyell Morales Primary Care Unavailable Luis Gutierrez Attending Unavailable DeRCy wellington Attending Unavailable Cy Sears Admitting Unavailable Danyell Morales Primary Care Unavailable Danyell Morales Primary Care Unavailable Luis Gutierrez Attending Unavailable Luis Gutierrez Admitting Unavailable Morales Danyell Unavailable Allergies Allergy Classification Reported Allergen(s) Allergy Type Date of Onset Reaction(s) Facility (4 sources) varenicline Drug Allergy Unknown Rental Kharma Other Medications Current Medications Medication Drug Class(es) [...] 2021 2:53pm take 1 tablet by maia twice daily at mealtime as needed Diclofenac [...] 01/28/20 Status: Ordered take 1 tablet by maia once daily Levothyroxine Sodium 75 MCG TAKE [...] PO Daily May 26, 2021 2:53pm NuLYTELY [place] oral powder for reconstitution (1 source) Start: 01-28-2020 take 1 dose by mouth once NuLYTELY [place] oral powder for reconstitution See Instructions, 1 [...] Once a day Active polyethylene glycol 3350 [id number] mg / potassium chloride 1480 mg / sodium bicarbonate 5720 mg / sodium chloride 93274 mg powder for oral solution (1 source) Osmotic Laxative Start: 01-28-2020 take 1 dose by mouth once NuLYTELY [place] oral powder for reconstitution See Instructions, 1 [...] Start: 05-10-2021 take 2 tablets by mo [facility] three times daily sulfasalazine 500 mg Tab 1,000 mg = 2 tab(s), Oral, TID, # 180 tab(s), Refills(s) 11, Pharmacy: [facility]/pharmacy #[id number], 150, cm, 05/10/21 11:13:00 EDT, Height/Length [...] 11-21-2021 BASO # 0.1 103/ul Normal 0.0-0.1 [facility] Comment on above: Performed By: #### C BC #### [facility] [address] [place] [address] Dr. Scooby Irvin Basophils/100 WBC (Bld) 0.5 % Normal 0.2-2.0 [facility] Comment on above: Performed By: #### C BC #### [facility] [address] [place] [address] Dr. Scooby Irvin EO # 0.0 103/ul Normal 0.0-0.7 [facility] Comment on above: Performed By: #### C BC #### [facility] [address] [place] [address] Dr. Scooby Irvin Eosinophils/100 WBC (Bld) 0.1 % Critically low 0.9-7.0 [facility] Comment on above: Performed By: #### C BC #### [facility] [address] [place] [address] Dr. Scooby Irvin Erythrocyte distribution width (RBC) [Ratio] 15.1 % Critically high 11.0-15.0 [facility] Comment on above: Performed By: #### C BC #### [facility] [address] [place] [address] Dr. Scooby Irvin Hematocrit (Bld) [Volume fraction] 39.4 % Normal 36.0-48.0 [facility] Comment on above: Performed By: #### C BC #### [facility] [address] [place] [address] Dr. Scooby Irvin Hemoglobin (Bld) [Mass/Vol] 12.6 g/dL Normal 12.0-16.0 [facility] Comment on above: Performed By: #### C BC #### [facility] [address] [place] [address] Dr. Scooby Irvin IG # 0.05 10e3/ul Critically high 0.00-0.03 [facility] Comment on above: Performed By: #### C BC #### [facility] [address] [place] [address] Dr. Scooby Irvin IG % 0.5 % Normal 0.0-0.5 [facility] Comment on above: Performed By: #### C BC #### [facility] [address] [place] [address] Dr. Scooby Irvin LYMPH # 1.3 103/ul Normal 1.2-3.8 [facility] Comment on above: Performed By: #### C BC #### [facility] [address] [place] [address] Dr. Scooby Irvin Lymphocytes/100 WBC (Bld) 13.2 % Critically low 20.5-60.0 [facility] Comment on above: Performed By: #### C BC #### [facility] [address] [place] [address] Dr. Scooby Irvin MANUAL DIFF REQ NO Normal [facility] Comment on above: Performed By: #### C BC #### [facility] [address] [place] [address] Dr. Scooby Irvin MCH (RBC) [Entitic mass] 30.0 pg Normal 26.7-34.0 [facility] Comment on above: Performed By: #### C BC #### [facility] [address] [place] [address] Dr. Scooby Irvin MCHC (RBC) [Mass/Vol] 32.0 g/dL Normal 29.9-35.2 [facility] Comment on above: Performed By: #### C BC #### [facility] [address] [place] [address] Dr. Scooby Irvin MCV (RBC) [Entitic vol] 93.8 fL Normal 81.0-99.0 [facility] Comment on above: Performed By: #### C BC #### [facility] [address] [place] [address] Dr. Scooby Irvin MONO # 0.7 103/ul Normal 0.3-0.8 [facility] Comment on above: Performed By: #### C BC #### [facility] [address] [place] [address] Dr. Scooby Irvin Monocytes/100 WBC (Bld) 7.2 % Normal 1.7-12.0 [facility] Comment on above: Performed By: #### C BC #### [facility] [address] [place] [address] Dr. Scooby Irvin NEUT # 7.5 103/ul Critically high 1.4-6.5 [facility] Comment on above: Performed By: #### C BC #### [facility] [address] [place] [address] Dr. Scooby Irvin Neutrophils/100 WBC (Bld) 78.5 % Critically high 43.0-75.0 [facility] Comment on above: Performed By: #### C BC #### [facility] [address] [place] [address] Dr. Scooby Irvin Platelet mean volume (Bld) [Entitic vol] 9.9 fL Normal 9.5-13.5 [facility] Comment on above: Performed By: #### C BC #### [facility] [address] [place] [address] Dr. Scooby Irvin PLT 230 103/ul Normal 150-450 [facility] Comment on above: Performed By: #### C BC #### [facility] [address] [place] [address] Dr. Scooby Irvin RBC 4.20 106/ul Normal 4.20-5.40 [facility] Comment on above: Performed By: #### C BC #### [facility] [address] [place] [address] Dr. Scooby Irvin WBC 9.5 103/ul Normal 4.0-11.0 [facility] Comment on above: Performed By: #### C BC #### [facility] [address] [place] [address] Dr. Scooby Irvin PROF 14(COMP METB)on 022 Albumin [Mass/Vol] 3.9 g/dL Normal 3.4-5.0 [facility] Comment on above: Performed By: #### C BC #### [facility] [address] [place] [address] Dr. Scooby Irvin Albumin/Globulin [Mass ratio] 1.0 {ratio} Normal [facility] Comment on above: Performed By: #### C BC #### [facility] [address] [place] [address] Dr. Scooby Irvin ALP [Catalytic activity/Vol] 87 U/L Normal 46-116 [facility] Comment on above: Performed By: #### C BC #### [facility] [address] [place] [address] Dr. Scooby Irvin ALT [Catalytic activity/Vol] 29 U/L Normal 14-59 [facility] Comment on above: Performed By: #### C BC #### [facility] [address] [place] [address] Dr. Scooby Irvin Anion gap [Moles/Vol] 14.1 mmol/L Normal [facility] Comment on above: Performed By: #### C BC #### [facility] [address] [place] [address] Dr. Scooby Irvin AST [Catalytic activity/Vol] 38 U/L Critically high 15-37 [facility] Comment on above: Performed By: #### C BC #### [facility] [address] [address] [address] Scooby Irvin Bilirubin [Mass/Vol] 0.5 mg/dL Normal 0.2-1.0 [facility] Comment on above: Performed By: #### C BC #### [facility] [address] [address] [address] Scooby Irvin Calcium [Mass/Vol] 9.2 mg/dL Normal 8.5-10.1 [facility] Comment on above: Performed By: #### C BC #### [facility] [address] [place] [address] Dr. Scooby Irvin Chloride [Moles/Vol] 102 mmol/L Normal 98-107 [facility] Comment on above: Performed By: #### C BC #### [facility] [address] [place] [address] Dr. Scooby Irvin CO2 [Moles/Vol] 25.7 mmol/L Normal 21.0-32.0 [facility] Comment on above: Performed By: #### C BC #### [facility] [address] [place] [address] Dr. Scooby Irvin Creatinine [Mass/Vol] 0.76 mg/dL Normal 0.55-1.02 [facility] Comment on above: Performed By: #### C BC #### [facility] [address] [address] [address] Scooby Irvin EGFR-AF TURKISH >60 Normal >=60 [facility] Comment on above: Performed By: #### C BC #### [facility] [address] [place] [address] Dr. Scooby Irvin EGFR-NON AF TURKISH >60 Normal >=60 [facility] Comment on above: Performed By: #### C BC #### [facility] [address] [address] [address] Scooby Irvin Globulin (S) [Mass/Vol] 3.8 g/dL Normal [facility] Comment on above: Performed By: #### C BC #### [facility] [address] [address] [address] Scooby Irvin Glucose [Mass/Vol] 104 mg/dL Normal 74-106 [facility] Comment on above: Performed By: #### C BC #### [facility] [address] [address] [address] Scooby Irvin Potassium [Moles/Vol] 4.8 mmol/L Normal 3.5-5.1 [facility] Comment on above: Performed By: #### C BC #### [facility] [address] [place] [address] Dr. Scooby Irvin Protein [Mass/Vol] 7.7 g/dL Normal 6.4-8.2 [facility] Comment on above: Performed By: #### C BC #### [facility] [address] [place] [address] Dr. Scooby Irvin Sodium [Moles/Vol] 137 mmol/L Normal 136-145 [facility] Comment on above: Performed By: #### C BC #### [facility] [address] [place] [address] Dr. Scooby Irvin Urea nitrogen [Mass/Vol] 9.0 mg/dL Normal 7.0-18.0 [facility] Comment on above: Performed By: #### C BC #### [facility] [address] [place] [address] Dr. Scooby Irvin Urea nitrogen/Creatinine [Mass ratio] 11.8 mg/mg Normal [facility] Comment on above: Performed By: #### C BC #### [facility] [address] [place] [address] Dr. Scooby Irvin Gastroenterology Office/Clin ic Noteon 11-11-2021 Gastroenterology Office/Clinic Note Chief Complaint 6 mon f/u HPI Staff Giles is a 71 y.o female here for [...] done for her thyroid and cholesterol at [facility]. Alexandra denies having any other GI concerns [...] patient or guardian consented to allow Uzma Celeste to record this visit. JASS financial retirement plan specialist and provider reviewed before signing. JASS: [...] 1 tab(s), Oral, TID levothyroxine, Daily NuLYTELY [place] oral powder for reconstitution, See Instructions omeprazole, [...] virus vaccine, inactivated 11/2020 Recorded Normal [facility] Comment on above: Result Comment: Elec [...] Capri ROA MD Primary Care Physician - DANYELL MORALES MD This Is Your Medications List Contact prescribing physician if questions or concerns alprazolam baclofen calcium citrate (calcium (as calcium citrate) 200 mg oral tablet) escitalopram folic acid (Folate 1 mg Tab) glucosamine (glucosamine 500 mg oral tablet) levothyroxine omeprazole polyethylene glycol 3350 with electrolytes (NuLYTELY [place] oral powder for reconstitution) simvastatin sulfasalazine (sulfasalazine [...] Unchanged polyethylene glycol 3350 with electrolytes (NuLYTELY [place] oral powder for reconstitution) See instructions PER [...] treatment for. Chronic pancolonic ulcerative colitis Normal [facility] LIPID PROFILEon 09-27-2021 CHOL-HDL RATIO NORM SEE BELOW Normal [facility] Comment on above: Result Comment: 3.3 - 4.4 LOW RISK 4.4 - 7.1 AVERAGE RISK 7.1 - 11.0 MODERATE RISK >11.0 HIGH RISK Performed By: #### C MP, LIPID #### [facility] [address] [address] [address] Scooby Irvin Cholesterol [Mass/Vol] 235 mg/dL Critically high <=200 [facility] Comment on above: Performed By: #### C MP, LIPID #### [facility] [address] [address] [address] Scooby Irvin Cholesterol in HDL [Mass/Vol] 65 mg/dL Critically high 40-60 [facility] Comment on above: Performed By: #### C MP, LIPID #### [facility] [address] [address] [address] Scooby Irvin Cholesterol in LDL [Mass/Vol] 156.8 mg/dL Normal [facility] Comment on above: Performed By: #### C MP, LIPID #### [facility] [address] [address] [address] Scooby Irvin Cholesterol.total/Rachel sterol in HDL [Mass ratio] 3.6 {ratio} Normal [facility] Comment on above: Performed By: #### C MP, LIPID #### [facility] [address] [address] [address] Scooby Irvin HDL NORMAL > or = 60 mg/dl - LOW CARDIOVASCULAR RISK <40 mg/dl - HIGH CARDIOVASCULAR RISK Normal [facility] Comment on above: Performed By: #### C MP, LIPID #### [facility] [address] [address] [address] Scooby Irvin LDL CALC NORMAL SEE BELOW Normal [facility] Comment on above: Result Comment: <100 mg/dl OPTIMAL 100 - 129 mg/dl NEAR OR ABOVE OPTIMAL 130 - 159 mg/dl BORDERLINE HIGH 160 - 189 mg/dl HIGH >190 mg/dl VERY HIGH Performed By: #### C MP, LIPID #### [facility] [address] [address] [address] Scooby Irvin Triglyceride [Mass/Vol] 66 mg/dL Normal <=150 T [facility] Comment on above: Performed By: #### C MP, LIPID #### [facility] [address] [address] [address] Scooby Irvin VLDL CALC 13.2 mg/dL Normal [facility] Comment on above: Performed By: #### C MP, LIPID #### [facility] [address] [address] [address] Scooby Irvin PROF 14(COMP METB)on 022 Albumin [Mass/Vol] 3.9 g/dL Normal 3.4-5.0 [facility] Comment on above: Performed By: #### C MP, LIPID #### [facility] [address] [address] [address] Scooby Irvin Albumin/Globulin [Mass ratio] 1.1 {ratio} Normal [facility] Comment on above: Performed By: #### C MP, LIPID #### [facility] [address] [address] [address] Scooby Irvin ALP [Catalytic activity/Vol] 87 U/L Normal 46-116 [facility] Comment on above: Performed By: #### C MP, LIPID #### [facility] [address] [address] [address] Scooby Irvin ALT [Catalytic activity/Vol] 27 U/L Normal 14-59 [facility] Comment on above: Performed By: #### C MP, LIPID #### [facility] [address] [address] [address] Scooby Irvin Anion gap [Moles/Vol] 16.9 mmol/L Normal Th [facility] Comment on above: Performed By: #### C MP, LIPID #### [facility] [address] [address] [address] Scooby Irvin AST [Catalytic activity/Vol] 21 U/L Normal 15-37 [facility] Comment on above: Performed By: #### C MP, LIPID #### [facility] [address] [address] [address] Scooby Irvin Bilirubin [Mass/Vol] 0.4 mg/dL Normal 0.2-1.0 [facility] Comment on above: Performed By: #### C MP, LIPID #### [facility] [address] [address] [address] Scooby Irvin Calcium [Mass/Vol] 8.7 mg/dL Normal 8.5-10.1 [facility] Comment on above: Performed By: #### C MP, LIPID #### [facility] [address] [address] [address] Scooby Irvin Chloride [Moles/Vol] 102 mmol/L Normal 98-107 [facility] Comment on above: Performed By: #### C MP, LIPID #### [facility] [address] [address] [address] Scooby Irvin CO2 [Moles/Vol] 22.0 mmol/L Normal 21.0-32.0 [facility] Comment on above: Performed By: #### C MP, LIPID #### [facility] [address] [address] [address] Scooby Irvin Creatinine [Mass/Vol] 0.73 mg/dL Normal 0.55-1.02 [facility] Comment on above: Performed By: #### C MP, LIPID #### [facility] [address] [address] [address] Scooby Irvin EGFR-AF TURKISH >60 Normal >=60 [facility] Comment on above: Performed By: #### C MP, LIPID #### [facility] [address] [address] [address] Scooby Irvin EGFR-NON AF TURKISH >60 Normal >=60 [facility] Comment on above: Performed By: #### C MP, LIPID #### [facility] [address] [address] [address] Scooby Irvin Globulin (S) [Mass/Vol] 3.7 g/dL Normal T [facility] Comment on above: Performed By: #### C MP, LIPID #### [facility] [address] [address] [address] Scooby Irvin Glucose [Mass/Vol] 105 mg/dL Normal 74-106 [facility] Comment on above: Performed By: #### C MP, LIPID #### [facility] [address] [address] [address] Scooby Irvin Potassium [Moles/Vol] 3.9 mmol/L Normal 3.5-5.1 [facility] Comment on above: Performed By: #### C MP, LIPID #### [facility] [address] [address] [address] Scooby Irvin Protein [Mass/Vol] 7.6 g/dL Normal 6.4-8.2 [facility] Comment on above: Performed By: #### C MP, LIPID #### [facility] [address] [address] [address] Scooby Irvin Sodium [Moles/Vol] 137 mmol/L Normal 136-145 [facility] Comment on above: Performed By: #### C MP, LIPID #### [facility] [address] [address] [address] Scooby Irvin Urea nitrogen [Mass/Vol] 11.0 mg/dL Normal 7.0-18.0 [facility] Comment on above: Performed By: #### C MP, LIPID #### [facility] [address] [address] [address] Scooby Irvin Urea nitrogen/Creatinine [Mass ratio] 15.1 mg/mg Normal [facility] Comment on above: Performed By: #### C MP, LIPID #### [facility] [address] [place], [place] [address] Dr. Scooby Irvin TSHon 09-27-2021 TSH 2.198 uIU/mL Normal 0.358-3.740 [facility] Comment on above: Performed By: #### T SH #### [facility] [address] [place], [place] [address] Dr. Scooby Irvin Covid-19 PCR ([facility])on 09-11 SARS-CoV-2 (COVID-19) RNA ADELITA+probe Ql (Unsp spec) Not detected Normal NOT DETECTED [facility] Comment on above: Result Comment: This test is not yet approved or cleared by the [place] FDA. When there are no FDA-approved or cleared tests available, and other criteria are met, FDA can make tests available under an emergency access mechanism called an Emergency Use Authorization (EUA). The EUA for this test is supported by the [place] of Health and Human Service's (HHS's) declaration [...] SARS-CoV-2. Performed By: #### C BC #### [facility] [address] [place], [place] [address] Dr. Scooby Irvin TSHon 06-22-2021 TSH 2.326 uIU/mL Normal 0.358-3.740 [facility] Comment on above: Performed By: #### C BC #### [facility] [address] [place], [place] [address] Dr. Scooby Irvin TSH RANGE SEE BELOW Normal [facility] Comment on above: Result Comment: <0.3 4 UIU/ml HYPERTHYROID 0.34-5.60 UIU/ml EUTHYROID >5.60 UIU/ml HYPOTHYROID Performed By: #### C #### [facility] [address] [place] [address] Dr. Scooby Irvin ABO/Rh Retypeon 05-31-2021 ABO/RH Recheck Result Positive Normal [facility] Comment on above: Result Comment: PERF ORMED BY: [facility] [address] [place] [address] PATHOLOGIST TELEVISION SCRIPT WRITER TRICIA Yin 05-31-2021 L Specimen: [id number] Received: 05/31/21 Status: LIDIA Pineda Num: [id number] Spec Type: Surgical Subm Dr: Luis Gutierrez DO Tissues: A Parathyroid Gland (R/O PARATHYROID) B THYROID - Lobe (R SUBSTERNAL THYROID) Procedures: HE Stain/8, Gross/Micro L5, Gross/Micro L4 Patient Age/Sex Location Account Attending Physician Alexandra Cervantes 71/F DC [id number] Luis Gutierrez, SPEC NUM: [id number] RECD: 05/31/21 STATUS: LIDIA PINEDA NUM: [id number] KATHY: 05/31/21- SUBM DR: Luis Gutierrez DO [...] blue. Sectioning of the sutured nodule Specimen: Received: 05/31/21 Status: LIDIA Pineda Num: [id number] Spec Type: Surgical Subm Dr: Luis Gutierrez DO Tissues: A Parathyroid Gland (R/O PARATHYROID) B THYROID - Lobe (R SUBSTERNAL THYROID) Procedures: HE Stain/8, Gross/Micro L5, Gross/Micro L4 Patient: Jey Cervantesha [id number] (Continued) Specimen: Received: 05/31/21 (Continued) Gross Description (Continued) Signed (signatur e on file) Tricia Oshea MD 06/01/21 1913 Specimen: [id number] Received: 05/31/21 Status: LIDIA Pineda Num: [id number] Spec Type: Surgical Subm Dr: Luis Gutierrez DO Tissues: A Parathyroid Gland (R/O PARATHYROID) B THYROID - Lobe (R SUBSTERNAL THYROID) Procedures: HE Stain/8, Gross/Micro L5, Gross/Micro L4 Patient: Alexandra Cervantes [id number] (Continued) Specimen: Received: 05/31/21 (Continued) Gross Description [...] microscopic findings support the above pathologic diagnosis. [id number], [id number] Specimen: [id number] Received: (more content not included)... Normal [facility] LeukoReduced RBCon LeukoReduced RBC READY Normal [facility] Type and Screenon 05-31-2021 ABO and Rh group Nom (Bld) Blood group O Rh(D) positive Normal [facility] Comment on above: Order Comment: Trans fuse now? N Result Comment: PERF ORMED BY: [facility] [address] [place] [address] PATHOLOGIST TELEVISION SCRIPT WRITER TRICIA OSHEA M.D. Basic Metabolic Panelon 05-12 Calcium [Mass/Vol] 9.5 mg/dL Normal 8.2-10.2 [facility] Comment on above: Result Comment: PERF ORMED BY: [facility] [address] [place] [address] PATHOLOGIST TELEVISION SCRIPT WRITER TRCIIA OSHEA M.D. Performed By: #### C BC, BMP #### [facility] [address] [place] [address] [place] Chloride [Moles/Vol] 105 mmol/L Normal 95-114 [facility] Comment on above: Performed By: #### C BC, BMP #### [facility] [address] [place] [address] [place] CO2 [Moles/Vol] 23.0 mmol/L Normal 22.0-30.[address] [facility] Comment on above: Performed By: #### C BC, BMP #### [facility] [address] Creatinine [Mass/Vol] 0.66 mg/dL Normal 0.44-1.03 [facility] Comment on above: Performed By: #### C BC, BMP #### [place] [address] [place] Estimated GFR ( Traci > 60 Normal [facility] Comment on above: Result Comment: GFR estimated reference range: According to KDOQI guidelines, <60 ml/min/1.73m2 is sufficient to diagnose a patient with chronic kidney disease. Performed By: #### C BC, BMP #### [facility] [address] Estimated GFR (Non- Am > 60 Normal [facility] Comment on above: Performed By: #### C BC, BMP #### [address] Glucose [Mass/Vol] 89 mg/dL Normal 70-100 [facility] Comment on above: Result Comment: Donie om Glucose Reference Range is dependent on time and content of last meal. Glucose of more than 200 mg/dL in a nonstressed, ambulatory subject supports the diagnosis of Diabetes Mellitus. ADA recommended reference range Performed By: #### C BC, BMP #### [place] [id number] [place] Potassium [Moles/Vol] 4.0 mmol/L Normal 3.5-5.1 [facility] Comment on above: Performed By: #### C BC, BMP #### [facility] [address] [place] [id number] [place] Sodium [Moles/Vol] 137 mmol/L Normal 136-146 [facility] Comment on above: Performed By: #### C BC, BMP #### [place] [id number] [place] Urea nitrogen [Mass/Vol] 10 mg/dL Normal 9-23 [facility] Comment on above: Performed By: #### C BC, BMP #### [facility] [address] Basophils Auto (Bld) [#/Vol] Ordered By: Luis Gutierrez on 05-26-2021 Basophils (Bld) [#/Vol] 0.1 10*3/uL 0.0-0.2 [facility] Basophils/100 WBC Auto (Bld) Ordered By: Luis Gutierrez on 05-26-2021 Basophils/100 WBC (Bld) 0.9 % F [facility] Blood hemoglobin measurement (mass/volume)Ordered By: Luis Gutierrez on 05-26-2021 Hemoglobin (Bld) [Mass/Vol] 12.4 g/dL 11.8-15.4 [facility] Blood leukocytes automated c ount (number/volume)Ordered By: Luis Gutierrez on 05-26-2021 WBC (Bld) [#/Vol] 8.8 10*3/uL 4.5-11.0 [facility] COVID-19 FRMCon 05-26-2021 SARS-CoV-2 (COVID-19) RNA ADELITA+probe Ql (Unsp spec) Negative Normal Negative [facility] Comment on above: Order Comment: 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 This test has not been FDA cleared [...] is terminated or revoked sooner. PERFORMED BY: [facility] [address] [place] [address] PATHOLOGIST TELEVISION SCRIPT WRITER TRICIA OSHEA M.D. Performed By: #### C OVID 19 [facility] #### [facility] [address] COVID-19 Positive/NegativeOr dered By: Luis Gutierrez on 05-26-2021 SARS-CoV-2 (COVID-19) N gene ADELITA+probe Ql (Resp) Negative Negative [facility] Comment on above: Testing for SARS-CoV -2 by RT-PCRThis test was developed and its performance characteristics determined by [employer] and validated at the [facility]. This test has not been FDA cleared [...] 05-26-2021 Calcium [Mass/Vol] 9.4 mg/dL Normal 8.2-10.2 [facility] Comment on above: Performed By: #### C A, TSH3, PTH #### [facility] [address] Complete Blood Count Auto Di ffon 05-26-2021 Basophils (Bld) [#/Vol] 0.1 10*3/uL Normal 0.0-0.2 [facility] Comment on above: Result Comment: PERF ORMED BY: [facility] [address] [place] [address] PATHOLOGIST TELEVISION SCRIPT WRITER TRICIA OSHEA M.D. Performed By: #### C BC, BMP #### [facility] [address] [place] [address] [place] Basophils/100 WBC (Bld) 0.9 % Normal . F [facility] Comment on above: Performed By: #### C BC, BMP #### [facility] [address] [place] [address] [place] Eosinophils (Bld) [#/Vol] 0.0 10*3/uL Normal 0.0-0.45 [facility] Comment on above: Performed By: #### C BC, BMP #### [facility] [address] Eosinophils/100 WBC (Bld) 0.2 % Normal . [facility] Comment on above: Performed By: #### C BC, BMP #### [facility] [address] Erythrocyte distribution width (RBC) [Ratio] 16.1 % High 11.9-15.3 [facility] Comment on above: Performed By: #### C BC, BMP #### [facility] [address] Hematocrit (Bld) [Volume fraction] 37.5 % Normal 34.0-46.4 [facility] Comment on above: Performed By: #### C BC, BMP #### [facility] [address] [place] [address] [place] Hemoglobin (Bld) [Mass/Vol] 12.4 g/dL Normal 11.8-15.4 [facility] Comment on above: Performed By: #### C BC, BMP #### [facility] [address] [place] [address] [place] Lymphocytes (Bld) [#/Vol] 1.4 10*3/uL Normal 1.00-4.8 [facility] Comment on above: Performed By: #### C BC, BMP #### [facility] [address] [place] [address] [place] Lymphocytes/100 WBC (Bld) 15.8 % Normal . [facility] Comment on above: Performed By: #### C BC, BMP #### [facility] [address] MCH (RBC) [Entitic mass] 29.2 pg Normal 24.7-34.3 [facility] Comment on above: Performed By: #### C BC, BMP #### [facility] [address] MCV (RBC) [Entitic vol] 88.3 fL Normal 80-100 F [facility] Comment on above: Performed By: #### C BC, BMP #### [facility] [address] Mean Corpuscular HGB Conc 33.1 g/dL Normal 32.0-35.0 [facility] Comment on above: Performed By: #### C BC, BMP #### [facility] [address] [place] [address] [place] Monocytes (Bld) [#/Vol] 0.7 10*3/uL Normal 0.0-0.8 [facility] Comment on above: Performed By: #### C BC, BMP #### [facility] [address] [place] [address] [place] Monocytes/100 WBC (Bld) 7.7 % Normal . F [facility] Comment on above: Performed By: #### C BC, BMP #### [facility] [address] [place] [address] [place] Neutrophils (Bld) [#/Vol] 6.7 10*3/uL Normal 1.8-7.7 [facility] Comment on above: Performed By: #### C BC, BMP #### [facility] [address] [place] [id number] [place] Neutrophils/100 WBC (Bld) 75.4 % Normal . [facility] Comment on above: Performed By: #### C BC, BMP #### [facility] [address] [place] [address] [place] Nucleated RBC/100 WBC (Bld) [Ratio] 0.1 % Normal 0-0.5 [facility] Comment on above: Performed By: #### C BC, BMP #### [facility] [address] [place] [id number] [place] Platelet mean volume (Bld) [Entitic vol] 8.6 fL Normal 6.3-10.7 [facility] Comment on above: Performed By: #### C BC, BMP #### [facility] [address] [place] [address] [place] Platelets (Bld) [#/Vol] 241 10*3/uL Normal 150-450 [facility] Comment on above: Performed By: #### C KELSEY, BMP #### [facility] [address] [place] [address] [place] RBC (Bld) [#/Vol] 4.24 10*6/uL Normal 3.60-5.00 [facility] Comment on above: Performed By: #### C KELSEY, BMP #### [facility] [address] [place] [id number] [facility] WBC (Bld) [#/Vol] 8.8 10*3/uL Normal 4.5-11.0 [facility] Comment on above: Performed By: #### C KELSEY, BMP #### [facility] [address] Creatinine and Glomerular fi ltration rate.predicted panel (S/P/Bld)Ordered By: Luis Gutierrez on 05-26-2021 Creatinine [Mass/Vol] 0.66 mg/dL 0.44-1.03 [facility] ECG 12 lead ECGon 05-26-2021 ECG 12 lead ECG [facility] Main [place] [address] [place] [address] Electrocardiograph Report Signed Patient: Alexandra Cervantes MR#: [id number] 2 : 1950 Acct:[id number] Age/Sex: 71 / F ADM Date: 05/26/21 Loc: PS [facility]: [facility] Attending Dr: Luis Gutierrez DO Ordering Provider: [...] ECG No previous ECGs available Confirmed by ASHLEY HAINES DO ([id number]) on 05/27/2021 8:48:58 AM Referred By: MATT Electronically Signed By:ASHLEY HAINES DO Transcribed By: IBRAHIMA Signed By Ashley Haines DO 05/27 0848 Normal [facility] Eosinophils Auto (Bld) [#/Vo l]Ordered By: Luis Gutierrez on 05-26-2021 Eosinophils (Bld) [#/Vol] 0.0 10*3/uL 0.0-0.45 [facility] Eosinophils/100 WBC Auto (Bl d)Ordered By: Luis Gutierrez on 05-26-2021 Eosinophils/100 WBC (Bld) 0.2 % [facility] Erythrocyte distribution wid th Auto (RBC) [Ratio]Ordered By: Luis Gutierrez on 05-26-2021 Erythrocyte distribution width (RBC) [Ratio] 16.1 % 11.9-15.3 [facility] Estimated glomerular filtrat ion rate (GFR) non- AmericanOrdered By: Luis Gutierrez on 05-26-2021 GFR/1.73 sq M.predicted among non-blacks MDRD (S/P/Bld) [Vol rate/Area] > 60 mL/Min [facility] Hematocrit Auto (Bld) [Volum e fraction]Ordered By: Luis Gutierrez on 05-26-2021 Hematocrit (Bld) [Volume fraction] 37.5 % 34.0-46.4 [facility] Laboratory - Hematology and Cell countsOrdered By: Luis Gutierrez on 05-26-2021 Nucleated RBC/100 WBC (Bld) [Ratio] 0.1 % 0-0.5 [facility] Lymphocytes Auto (Bld) [#/Vo l]Ordered By: Luis Gutierrez on 05-26-2021 Lymphocytes (Bld) [#/Vol] 1.4 10*3/uL 1.00-4.8 [facility] Lymphocytes/100 WBC Auto (Bl d)Ordered By: Luis Gutierrez on 05-26-2021 Lymphocytes/100 WBC (Bld) 15.8 % [facility] MCH Auto (RBC) [Entitic mass ]Ordered By: Luis Gutierrez on 05-26-2021 MCH (RBC) [Entitic mass] 29.2 pg 24.7-34.3 [facility] MCHC Auto (RBC) [Mass/Vol]Or dered By: Luis Gutierrez on 05-26-2021 MCHC (RBC) [Mass/Vol] 33.1 g/dL 32.0-35.0 [facility]ir [facility] MCV Auto (RBC) [Entitic vol] Ordered By: Luis Gutierrez on 05-26-2021 MCV (RBC) [Entitic vol] 88.3 fL 80-100 [facility] Monocytes Auto (Bld) [#/Vol] Ordered By: Luis Gutierrez on 05-26-2021 Monocytes (Bld) [#/Vol] 0.7 10*3/uL 0.0-0.8 [facility] Monocytes/100 WBC Auto (Bld) Ordered By: Luis Gutierrez on 05-26-2021 Monocytes/100 WBC (Bld) 7.7 % F [facility] Neutrophils Auto (Bld) [#/Vo l]Ordered By: Luis Gutierrez on 05-26-2021 Neutrophils (Bld) [#/Vol] 6.7 10*3/uL 1.8-7.7 [facility] Neutrophils/100 WBC Auto (Bl d)Ordered By: Luis Gutierrez on 05-26-2021 Neutrophils/100 WBC (Bld) 75.4 % [facility] No Panel InformationOrdered By: Luis Gutierrez on 05-26-2021 Estimated GFR () > 60 mL/Min [facility] Comment on above: GFR estimated refere nce range: According to KDOQI guidelines, <60 ml/min/1.73m2 is sufficient to diagnose a patient with chronic kidney disease. Pharmacy Creatinine Clearance (Chem N/A [facility] Parathyroid Hormone Intacton 05-26-2021 Parathyroid Hormone Intact 31.2 pg/mL Normal 12-88 [facility] Comment on above: Result Comment: PERF ORMED BY: [facility] [address] [place] [address] PATHOLOGIST TELEVISION SCRIPT WRITER TRICIA OSHEA M.D. Performed By: #### C BC, BMP #### [address] Platelet mean volume Auto (B ld) [Entitic vol]Ordered By: Luis Gutierrez on 05-26-2021 Platelet mean volume (Bld) [Entitic vol] 8.6 fL 6.3-10.7 [facility] Platelets Auto (Bld) [#/Vol] Ordered By: Luis Gutierrez on 05-26-2021 Platelets (Bld) [#/Vol] 241 10*3/uL 150-450 [facility] RBC Auto (Bld) [#/Vol]Ordere d By: Luis Gutierrez on 05-26-2021 RBC (Bld) [#/Vol] 4.24 10*6/uL 3.60-5.00 [facility] Serum or plasma calcium joseph urement (mass/volume)Ordered By: Luis Gutierrez on 05-26-2021 Calcium [Mass/Vol] 9.4 mg/dL 8.2-10.2 [facility] Serum or plasma chloride liv surement (moles/volume)Ordered By: Luis Gutierrez on 05-26-2021 Chloride [Moles/Vol] 105 mmol/L 95-114 [facility] Serum or plasma glucose joseph urement (mass/volume)Ordered By: Luis Gutierrez on 05-26-2021 Glucose [Mass/Vol] 89 mg/dL 70-100 [facility] Comment on above: ADA recommended refe rence rangeRandom Glucose Reference Range is dependent on time and content of last meal. Glucose of more than 200 mg/dL in a nonstressed, ambulatory subject supports the diagnosis of Diabetes Mellitus. Serum or plasma intact parat hyroid hormone measurement (mass/volume)Ordered By: Lusi Gutierrez on 05-26-2021 Parathyrin.intact [Mass/Vol] 31.2 pg/mL [facility] Serum or plasma potassium me asurement (moles/volume)Ordered By: Luis Gutierrez on 05-26-2021 Potassium [Moles/Vol] 4.0 mmol/L 3.5-5.1 [facility] Serum or plasma sodium measu rement (moles/volume)Ordered By: Luis Gutierrez on 05-26-2021 Sodium [Moles/Vol] 137 mmol/L 136-146 [facility] Serum or plasma total carbon dioxide measurement (moles/volume)Ordered By: Luis Gutierrez on 05-26-2021 CO2 [Moles/Vol] 23.0 mmol/L 22.0-30.[address] [facility] Serum or plasma urea nitroge n measurement (mass/volume)Ordered By: Luis Gutierrez on 05-26-2021 Urea nitrogen [Mass/Vol] 10 mg/dL - [facility] TSH DL <= 0.005 mIU/L QnOrde red By: Luis Gutierrez on 05-26-2021 TSH Qn 0.86 m[IU]/L 0.45-5.33 [facility] Thyroid Stimulating Hormoneo n 05-26-2021 TSH Qn 0.86 m[IU]/L Normal 0.45-5.33 [facility] Comment on above: Performed By: #### C A, TSH3, PTH #### [address] MG MAMM SCREEN 3D GEORGES CADon 05-22-2021 MG MAMM SCREEN 3D GEORGES CAD Patient: ALEXANDRA CERVANTES Exam Date: 05/22/2021 : 1950 Gender:F Ordering : DR DANYELL MORALES M.D. Admission #: [id number] Family : Order #: [id number] CLICK HERE TO VIEW EXAM RADIOLOGY REPORT [...] Treatments None Family Cancers None LOCATION: [facility] BREAST COMPOSITION: Scattered areas fibroglandular density. FINDINGS: [...] Killian MD on 05/22/2021 at 12:06 Normal [facility] CT Chest w/Contraston 2021 CT Chest w/Contrast Please see CT neck report dated: 05/17/2021. Report reported and signed by Valente Lion on 05/22/2021 [address] [facility] CT Soft Tissue Neck w/ Contr ast*on [...] FINDINGS, NOTED. Report reported and signed by Valente Lion on 05/22/2021 1528 Normal [facility] Insurance Sales Manager Gastroenterology Office/Clin ic Noteon 05-11-2021 Gastroenterology Office/Clinic [...] after patient or guardian consented to allow [employer] to record this visit. JASS financial retirement plan specialist and provider reviewed before signing. JASS: Lillie Santiago. Follow-up With When Contact Information JANINA ALARCON, LENORE Farooq MED Within 6 months [facility] [address] [place] [address]- Additional Instructions: Problem List/Past Medical [...] 1 tab(s), Oral, TID levothyroxine, Daily NuLYTELY [place] oral powder for reconstitution, See Instructions omeprazole, [...] influenza virus vaccine, inactivated 11/2020 Recorded Normal [facility] Comment on above: Result Comment: Elec [...] Capri ROA MD Primary Care Physician - DANYELL MORALES MD This Is Your Medications List sulfasalazine (sulfasalazine 500 mg Tab) Contact prescribing physician if questions or concerns alprazolam baclofen calcium citrate (calcium (as calcium citrate) 200 mg oral tablet) escitalopram folic acid (Folate 1 mg Tab) glucosamine (glucosamine 500 mg oral tablet) levothyroxine omeprazole polyethylene glycol 3350 with electrolytes (NuLYTELY [place] oral powder for reconstitution) simvastatin Procedures Performed Colonoscopy, flexible; with biopsy, single or multiple (02/16/2020), Colonoscopy. Discharge Vitals Blood Pressure 180/90 Height 150.0 cm Height 150 cm Weight 71.0 kg Weight 71 kg BMI 31.56 What to do next You Need to Schedule the Following Appointments Follow Up with JANINA ALARCON, LENORE Farooq, [facility] When: Within 6 months Where: [facility] [place] [address]- Medications What How Much When Why Instructions Changed sulfasalazine (sulfasalazine 500 mg Tab) 2 Tablets By Mouth 3 times a day Pickup at [facility]/pharmacy #[id number] Unchanged alprazolam By Mouth Contact prescribing [...] Unchanged polyethylene glycol 3350 with electrolytes (NuLYTELY [place] oral powder for reconstitution) See instructions PER PHYS INSRTUCTIONS Contact prescribing physician if questions or concerns Unchanged simvastatin By Mouth Contact prescribing physician if questions or concerns Pharmacy Information [facility]/pharmacy #[id number]: [address], [place] [id number] [phone] Allergies No Known Allergies Problems Ongoing - Any problem that you are currently receiving treatment for. Chronic pancolonic ulcerative colitis Normal [facility] esophaguson 05-04-2021 [place] esophagus [facility] Main [place] [id number] Fluoroscopy Report Signed Patient: Alexandra Cervantes MR#: [id number] 2 : 1950 Acct:[id number] Age/Sex: 71 / F ADM Date: 05/04/21 Loc: XD Room: Type: [facility] Attending Dr: Cy Sears MD Ordering Provider: Cy Sears MD Date of Service: 05/04/21 KS/KS esophagus: K22.9 Copies to: Cy Sears MD [...] Kitchen Jr., M.D.05/04/2021 3:37 PM Dictation Location: [place] [address] Transcribed By: [facility] 05/04/211536 Dictated By: Selvin Kitchen Jr, MD 05/04/211531 Signed By: 05/04/21 153 Normal [facility] Lab Reportson 04-26-2021 Lab Reports [id number]:[id number] Normal [facility] CBC AUTO DIFFon 04-20-2021 BASO # 0.1 103/ul Normal 0.0-0.1 [facility] Comment on above: Performed By: #### C BC #### [facility] [address] [place] [address] Dr. Scooby Irvin Basophils/100 WBC (Bld) 0.4 % Normal 0.2-2.0 [facility] Comment on above: Performed By: #### C BC #### [facility] [address] [place] [address] Dr. Scooby Irvin EO # 0.0 103/ul Normal 0.0-0.7 [facility] Comment on above: Performed By: #### C BC #### [facility] [address] [place] [address] Dr. Scooby Irvin Eosinophils/100 WBC (Bld) 0.2 % Critically low 0.9-7.0 [facility] Comment on above: Performed By: #### C BC #### [facility] [address] [place] [address] Dr. Scooby Irvin Erythrocyte distribution width (RBC) [Ratio] 16.7 % Critically high 11.0-15.0 [facility] Comment on above: Performed By: #### C BC #### [facility] [address] [place] [address] Dr. Scooby Irvin Hematocrit (Bld) [Volume fraction] 37.6 % Normal 36.0-48.0 [facility] Comment on above: Performed By: #### C BC #### [facility] [address] [place] [address] Dr. Scooby Irvin Hemoglobin (Bld) [Mass/Vol] 12.0 g/dL Normal 12.0-16.0 [facility] Comment on above: Performed By: #### C BC #### [facility] [address] [place] [address] Dr. Scooby Irvin IG # 0.02 10e3/ul Normal 0.00-0.03 [facility] Comment on above: Performed By: #### C BC #### [facility] [address] [place] [address] Dr. Scooby Irvin IG % 0.2 % Normal 0.0-0.5 [facility] Comment on above: Performed By: #### C BC #### [facility] [address] [place] [address] Dr. Scooby Irvin LYMPH # 1.6 103/ul Normal 1.2-3.8 [facility] Comment on above: Performed By: #### C BC #### [facility] [address] [place] [address] Dr. Scooby Irvin Lymphocytes/100 WBC (Bld) 13.6 % Critically low 20.5-60.0 [facility] Comment on above: Performed By: #### C BC #### [facility] [address] [place] [address] Dr. Scooby Irvin MANUAL DIFF REQ NO Normal [facility] Comment on above: Performed By: #### C BC #### [facility] [address] [place] [address] [address] Scooby Irvin MCH (RBC) [Entitic mass] 28.6 pg Normal 26.7-34.0 [facility] Comment on above: Performed By: #### C BC #### [facility] [address] [place] [address] Dr. Scooby Irvin MCHC (RBC) [Mass/Vol] 31.9 g/dL Normal 29.9-35.2 [facility] Comment on above: Performed By: #### C BC #### [facility] [address] [place] [address] Dr. Scooby Irvin MCV (RBC) [Entitic vol] 89.5 fL Normal 81.0-99.0 [facility] Comment on above: Performed By: #### C BC #### [facility] [address] [place] [address] Dr. Scooby Irvin MONO # 0.7 103/ul Normal 0.3-0.8 [facility] Comment on above: Performed By: #### C BC #### [facility] [address] [place] [address] Dr. Scooby Irvin Monocytes/100 WBC (Bld) 5.8 % Normal 1.7-12.0 [facility] Comment on above: Performed By: #### C BC #### [facility] [address] [place] [address] Dr. Scooby Irvin NEUT # 9.1 103/ul Critically high 1.4-6.5 [facility] Comment on above: Performed By: #### C BC #### [facility] [address] [place] [address] Dr. Scooby Irvin Neutrophils/100 WBC (Bld) 79.8 % Critically high 43.0-75.0 [facility] Comment on above: Performed By: #### C BC #### [facility] [address] [place] [address] Dr. Scooby Irvin Platelet mean volume (Bld) [Entitic vol] 10.2 fL Normal 9.5-13.5 [facility] Comment on above: Performed By: #### C BC #### [facility] [address] [place] [address] Dr. Scooby Irvin PLT 217 103/ul Normal 150-450 [facility] Comment on above: Performed By: #### C BC #### [facility] [address] [place] [address] Dr. Scooby Irvin RBC 4.20 106/ul Normal 4.20-5.40 [facility] Comment on above: Performed By: #### C BC #### [facility] [address] [place] [address] Dr. Scooby Irvin WBC 11.4 103/ul Critically high 4.0-11.0 [facility] Comment on above: Performed By: #### C BC #### [facility] [address] [place] [address] Dr. Scooby Irvin PROF 14(COMP METB)on 022 Albumin [Mass/Vol] 3.9 g/dL Normal 3.5-5.0 [facility] Comment on above: Performed By: #### C MP #### [facility] [address] [place] [address] Dr. Scooby Irvin Albumin/Globulin [Mass ratio] 1.1 {ratio} Normal [facility] Comment on above: Performed By: #### C MP #### [facility] [address] [place] [address] Dr. Scooby Irvin ALP [Catalytic activity/Vol] 72 U/L Normal 38-126 [facility] Comment on above: Performed By: #### C MP #### [facility] [address] [place] [address] Dr. Scooby Irvin ALT [Catalytic activity/Vol] 23 U/L Normal 9-52 [facility] Comment on above: Performed By: #### C MP #### [facility] [address] [place] [address] Dr. Scooby Irvin Anion gap [Moles/Vol] 10.2 mmol/L Normal [facility] Comment on above: Performed By: #### C MP #### [facility] [address] [place] [address] Dr. Scooby Irvin AST [Catalytic activity/Vol] 20 U/L Normal 14-36 [facility] Comment on above: Performed By: #### C MP #### [facility] [address] [address] [address] Scooby Irvin Bilirubin [Mass/Vol] 0.5 mg/dL Normal 0.2-1.3 [facility] Comment on above: Performed By: #### C MP #### [facility] [address] [address] [address] Scooby Irvin Calcium [Mass/Vol] 8.8 mg/dL Normal 8.4-10.2 [facility] Comment on above: Performed By: #### C MP #### [facility] [address] [place] [address] Dr. Scooby Irvin Chloride [Moles/Vol] 104 mmol/L Normal 98-107 [facility] Comment on above: Performed By: #### C MP #### [facility] [address] [address] [address] Scooby Irvin CO2 [Moles/Vol] 28.0 mmol/L Normal 22.0-30.0 [facility] Comment on above: Performed By: #### C MP #### [facility] [address] [place] [address] Dr. Scooby Irvin Creatinine [Mass/Vol] 0.87 mg/dL Normal 0.52-1.04 [facility] Comment on above: Performed By: #### C MP #### [facility] [address] [place] [address] Dr. Scooby Irvin EGFR-AF TURKISH >60 Normal >=60 [facility] Comment on above: Performed By: #### C MP #### [facility] [address] [place] [address] Dr. Scooby Irvin EGFR-NON AF TURKISH >60 Normal >=60 [facility] Comment on above: Performed By: #### C MP #### [facility] [address] [place] [address] Dr. Scooby Irvin Globulin (S) [Mass/Vol] 3.5 g/dL Normal T [facility] Comment on above: Performed By: #### C MP #### [facility] [address] [address] [address] Scooby Irvin Glucose [Mass/Vol] 93 mg/dL Normal 74-106 [facility] Comment on above: Performed By: #### C MP #### [facility] [address] [address] [address] Scooby Irvin Potassium [Moles/Vol] 4.2 mmol/L Normal 3.4-5.0 [facility] Comment on above: Performed By: #### C MP #### [facility] [address] [address] [address] Scooby Irvin Protein [Mass/Vol] 7.4 g/dL Normal 6.1-8.2 [facility] Comment on above: Performed By: #### C MP #### [facility] [address] [address] [address] Scooby Irvin Sodium [Moles/Vol] 138 mmol/L Normal 137-145 [facility] Comment on above: Performed By: #### C MP #### [facility] [address] [address] [address] Scooby Irvin Urea nitrogen [Mass/Vol] 15.0 mg/dL Normal 7.0-17.0 [facility] Comment on above: Performed By: #### C MP #### [facility] [address] [address] [address] Scooby Irvin Urea nitrogen/Creatinine [Mass ratio] 17.2 mg/mg Normal [facility] Comment on above: Performed By: #### C MP #### [facility] [address] [address] [address] Scooby Irvin PET CT SKULL BASE [...] additional or suspicious findings. Electronically authenticated by: VALENTE BARRETO Date: 2021-04-07 08:23 Normal [facility] CT LUNG CANCER SCREENINGon 0 03-23-2021 CT [...] 4. Chronic granulomatous disease. Electronically authenticated by: VALENTE BARRETO Date: 2021-03-23 09:57 Normal [facility] CBC AUTO DIFFon 03-09-2021 BASO # 0.1 103/ul Normal 0.0-0.1 [facility] Comment on above: Performed By: #### C BC #### [facility] [address] [place] [address] Dr. Scooby Irvin Basophils/100 WBC (Bld) 1.2 % Normal 0.2-2.0 [facility] Comment on above: Performed By: #### C BC #### [facility] [address] [place] [address] Dr. Scooby Irvin EO # 0.1 103/ul Normal 0.0-0.7 [facility] Comment on above: Performed By: #### C BC #### [facility] [address] [place] [address] Dr. Scooby Irvin Eosinophils/100 WBC (Bld) 1.4 % Normal 0.9-7.0 [facility] Comment on above: Performed By: #### C BC #### [facility] [address] [place] [address] Dr. Scooby Irvin Erythrocyte distribution width (RBC) [Ratio] 16.3 % Critically high 11.0-15.0 [facility] Comment on above: Performed By: #### C BC #### [facility] [address] [place] [address] Dr. Scooby Irvin Hematocrit (Bld) [Volume fraction] 39.6 % Normal 36.0-48.0 [facility] Comment on above: Performed By: #### C BC #### [facility] [address] [place] [address] Dr. Scooby Irvin Hemoglobin (Bld) [Mass/Vol] 12.6 g/dL Normal 12.0-16.0 [facility] Comment on above: Performed By: #### C BC #### [facility] [address] [place] [address] Dr. Scooby Irvin IG # 0.01 10e3/ul Normal 0.00-0.03 [facility] Comment on above: Performed By: #### C BC #### [facility] [address] [place] [address] Dr. Scooby Irvin IG % 0.2 % Normal 0.0-0.5 [facility] Comment on above: Performed By: #### C BC #### [facility] [address] [place] [address] Dr. Scooby Irvin LYMPH # 1.6 103/ul Normal 1.2-3.8 [facility] Comment on above: Performed By: #### C BC #### [facility] [address] [place] [address] Dr. Scooby Irvin Lymphocytes/100 WBC (Bld) 30.7 % Normal 20.5-60.0 [facility] Comment on above: Performed By: #### C BC #### [facility] [address] [place] [address] Dr. Scooby Irvin MANUAL DIFF REQ NO Normal [facility] Comment on above: Performed By: #### C BC #### [facility] [address] [place] [address] Dr. Scooby Irvin MCH (RBC) [Entitic mass] 28.4 pg Normal 26.7-34.0 [facility] Comment on above: Performed By: #### C BC #### [facility] [address] [place] [address] Dr. Scooby Irvin MCHC (RBC) [Mass/Vol] 31.8 g/dL Normal 29.9-35.2 [facility] Comment on above: Performed By: #### C BC #### [facility] [address] [place] [address] Dr. Scooby Irvin MCV (RBC) [Entitic vol] 89.2 fL Normal 81.0-99.0 [facility] Comment on above: Performed By: #### C BC #### [facility] [address] [place] [address] Dr. Scooby Irvin MONO # 0.6 103/ul Normal 0.3-0.8 [facility] Comment on above: Performed By: #### C BC #### [facility] [address] [place] [address] Dr. Scooby Irvin Monocytes/100 WBC (Bld) 11.5 % Normal 1.7-12.0 [facility] Comment on above: Performed By: #### C BC #### [facility] [address] [place] [address] Dr. Scooby Irvin NEUT # 2.8 103/ul Normal 1.4-6.5 [facility] Comment on above: Performed By: #### C BC #### [facility] [address] [place] [address] Dr. Scooby Irvin Neutrophils/100 WBC (Bld) 55.0 % Normal 43.0-75.0 [facility] Comment on above: Performed By: #### C BC #### [facility] [address] [place] [address] Dr. Scooby Irvin Platelet mean volume (Bld) [Entitic vol] 10.3 fL Normal 9.5-13.5 [facility] Comment on above: Performed By: #### C BC #### [facility] [address] [place] [address] Dr. Scooby Irvin PLT 208 103/ul Normal 150-450 [facility] Comment on above: Performed By: #### C BC #### [facility] [address] [place] [address] Dr. Scooby Irvin RBC 4.44 106/ul Normal 4.20-5.40 [facility] Comment on above: Performed By: #### C BC #### [facility] [address] [place] [address] Dr. Scooby Irvin WBC 5.1 103/ul Normal 4.0-11.0 [facility] Comment on above: Performed By: #### C BC #### [facility] [address] [address] [address] Scooby Irvin FREE T4on 03-09-2021 Free T4 [Mass/Vol] 1.15 ng/dL Normal 0.78-2.19 [facility] Comment on above: Performed By: #### C BC #### [facility] [address] [address] [address] Scooby Irvin LIPID PROFILEon 03-09-2021 CHOL-HDL RATIO NORM SEE BELOW Normal [facility] Comment on above: Result Comment: 3.3 - 4.4 LOW RISK 4.4 - 7.1 AVERAGE RISK 7.1 - 11.0 MODERATE RISK >11.0 HIGH RISK Performed By: #### L IPID, CMP, TSH #### [facility] [address] [address] [address] Scooby Irvin Cholesterol [Mass/Vol] 227 mg/dL Critically high <=200 [facility] Comment on above: Performed By: #### L IPID, CMP, TSH #### [facility] [address] [address] [address] Scooby Irvin Cholesterol in HDL [Mass/Vol] 65 mg/dL Normal [facility] Comment on above: Performed By: #### L IPID, CMP, TSH #### [facility] [address] [address] [address] Scooby Irvin Cholesterol in LDL [Mass/Vol] 142.6 mg/dL Normal [facility] Comment on above: Performed By: #### L IPID, CMP, TSH #### [facility] [address] [address] [address] Scooby Irvin Cholesterol.total/Rachel sterol in HDL [Mass ratio] 3.5 {ratio} Normal [facility] Comment on above: Performed By: #### L IPID, CMP, TSH #### [facility] [address] [address] [address] Scooby Irvin HDL NORMAL > or = 60 mg/dl - LOW CARDIOVASCULAR RISK <40 mg/dl - HIGH CARDIOVASCULAR RISK Normal [facility] Comment on above: Performed By: #### L IPID, CMP, TSH #### [facility] [address] [address] [address] Scooby Irvin LDL CALC NORMAL SEE BELOW Normal [facility] Comment on above: Result Comment: <100 mg/dl OPTIMAL 100 - 129 mg/dl NEAR OR ABOVE OPTIMAL 130 - 159 mg/dl BORDERLINE HIGH 160 - 189 mg/dl HIGH >190 mg/dl VERY HIGH Performed By: #### L IPID, CMP, TSH #### [facility] [address] [address] [address] Scooby Irvin Triglyceride [Mass/Vol] 97 mg/dL Normal <=150 T [facility] Comment on above: Performed By: #### L IPID, CMP, TSH #### [facility] [address] [address] [address] Scooby Irvin VLDL CALC 19.4 mg/dL Normal [facility] Comment on above: Performed By: #### L IPID, CMP, TSH #### [facility] [address] [place] [address] Dr. Scooby Irvin PROF 14(COMP METB)on 022 Albumin [Mass/Vol] 4.0 g/dL Normal 3.5-5.0 [facility] Comment on above: Performed By: #### L IPID, CMP, TSH #### [facility] [address] [place] [address] Dr. Scooby Irvin Albumin/Globulin [Mass ratio] 1.1 {ratio} Normal [facility] Comment on above: Performed By: #### L IPID, CMP, TSH #### [facility] [address] [place] [address] Dr. Scooby Irvni ALP [Catalytic activity/Vol] 80 U/L Normal 38-126 [facility] Comment on above: Performed By: #### L IPID, CMP, TSH #### [facility] [address] [place] [address] Dr. Scooby Irvin ALT [Catalytic activity/Vol] 35 U/L Normal 9-52 [facility] Comment on above: Performed By: #### L IPID, CMP, TSH #### [facility] [address] [address] [address] Scooby Irvin Anion gap [Moles/Vol] 11.8 mmol/L Normal [facility] Comment on above: Performed By: #### L IPID, CMP, TSH #### [facility] [address] [address] [address] Scooby Irvin AST [Catalytic activity/Vol] 24 U/L Normal 14-36 [facility] Comment on above: Performed By: #### L IPID, CMP, TSH #### [facility] [address] [address] [address] Scooby Irvin Bilirubin [Mass/Vol] 0.5 mg/dL Normal 0.2-1.3 [facility] Comment on above: Performed By: #### L IPID, CMP, TSH #### [facility] [address] [address] [address] Scooby Irvin Calcium [Mass/Vol] 9.3 mg/dL Normal 8.4-10.2 [facility] Comment on above: Performed By: #### L IPID, CMP, TSH #### [facility] [address] [address] [address] Scooby Irvin Chloride [Moles/Vol] 105 mmol/L Normal 98-107 [facility] Comment on above: Performed By: #### L IPID, CMP, TSH #### [facility] [address] [address] [address] Scooby Irvin CO2 [Moles/Vol] 26.2 mmol/L Normal 22.0-30.0 [facility] Comment on above: Performed By: #### L IPID, CMP, TSH #### [facility] [address] [address] [address] Scooby Irvin Creatinine [Mass/Vol] 0.83 mg/dL Normal 0.52-1.04 [facility] Comment on above: Performed By: #### L IPID, CMP, TSH #### [facility] [address] [address] [address] Scooby Irvin EGFR-AF TURKISH >60 Normal >=60 [facility] Comment on above: Performed By: #### L IPID, CMP, TSH #### [facility] [address] [address] [address] Scooby Irvin EGFR-NON AF TURKISH >60 Normal >=60 [facility] Comment on above: Performed By: #### L IPID, CMP, TSH #### [facility] [address] [address] [address] Scooby Irvin Globulin (S) [Mass/Vol] 3.8 g/dL Normal [facility] Comment on above: Performed By: #### L IPID, CMP, TSH #### [facility] [address] [place] [address] Dr. Scooby Irvin Glucose [Mass/Vol] 112 mg/dL Critically high 74-106 [facility] Comment on above: Performed By: #### L IPID, CMP, TSH #### [facility] [address] [place] [address] Dr. Scooby Irvin Potassium [Moles/Vol] 4.0 mmol/L Normal 3.4-5.0 [facility] Comment on above: Performed By: #### L IPID, CMP, TSH #### [facility] [address] [address] [address] Scooby Irvin Protein [Mass/Vol] 7.8 g/dL Normal 6.1-8.2 [facility] Comment on above: Performed By: #### L IPID, CMP, TSH #### [facility] [address] [address] [address] Scooby Irvin Sodium [Moles/Vol] 139 mmol/L Normal 137-145 [facility] Comment on above: Performed By: #### L IPID, CMP, TSH #### [facility] [address] [place] [address] Dr. Scooby Irvin Urea nitrogen [Mass/Vol] 15.0 mg/dL Normal 7.0-17.0 [facility] Comment on above: Performed By: #### L IPID, CMP, TSH #### [facility] [address] [place] [address] Dr. Scooby Irvin Urea nitrogen/Creatinine [Mass ratio] 18.1 mg/mg Normal [facility] Comment on above: Performed By: #### L IPID, CMP, TSH #### [facility] [address] [address] [address] Scooby Irvin TSHon 03-09-2021 TSH 2.761 uIU/mL Normal 0.470-4.680 [facility] Comment on above: Performed By: #### L IPID, CMP, TSH #### [facility] [address] [address] [address] Scooby Irvin TSH RANGE SEE BELOW Normal [facility] Comment on above: Result Comment: <0.3 4 UIU/ml HYPERTHYROID 0.34-5.60 UIU/ml EUTHYROID >5.60 UIU/ml HYPOTHYROID Performed By: #### L IPID, CMP, TSH #### [facility] [address] [address] [address] Scooby Irvin Vital Signs Date Time Vital Sign Value Performing Clinician Facility 09-04-2022 09:00-0400 Body height 140.97 cm Danyell Morales Other [facility] Other 09-04-2022 09:00-0400 Body mass index (BMI) [Ratio] 36.74 kg/m2 Danyell Morales Other [facility] Other 09-04-2022 09:00-0400 Body weight 73.03 kg Danyell Morales Other [facility] Other 09-04-2022 09:00-0400 Diastolic blood pressure 78 mm[Hg] Danyell Morales Other [facility] Other 09-04-2022 09:00-0400 SaO2% (BldA) [Mass fraction] 97 % Danyell Morales Other [facility] Other 09-04-2022 09:00-0400 Systolic blood pressure 132 mm[Hg] Danyell Morales Other [facility] Other 03-01-2022 10:30-0500 Body height 140.97 cm Danyell Morales Other [facility] Other 03-01-2022 10:30-0500 Body mass index (BMI) [Ratio] 36.06 kg/m2 Danyell Morales Other [facility] Other 03-01-2022 10:30-0500 Body weight 71.67 kg Danyell Morales Other [facility] Other 03-01-2022 10:30-0500 Diastolic blood pressure 84 mm[Hg] Danyell Morales Other [facility] Other 03-01-2022 10:30-0500 SaO2% (BldA) [Mass fraction] 98 % Danyell Morales Other [facility] Other 03-01-2022 10:30-0500 Systolic blood pressure 132 mm[Hg] Danyell Morales Other [facility] Other 11-08-2021 10:17-0400 Diastolic blood pressure 74 mm[Hg] Farooq SALAM [facility] 11-08-2021 10:17-0400 Mean blood pressure 99 mm[Hg] Farooq SALAM [facility] 11-08-2021 10:17-0400 Systolic blood pressure 148 mm[Hg] Farooq SALAM [facility] 11-08-2021 10:15-0400 Blood Pressure Location Farooq SALAM [facility] 11-08-2021 10:15-0400 Diastolic blood pressure 95 mm[Hg] Farooq SALAM [facility] 11-08-2021 10:15-0400 Heart rate 78 /min Farooq SALAM [facility] 11-08-2021 10:15-0400 Respiratory rate 16 /min Farooq SALAM [facility] 11-08-2021 10:15-0400 Systolic blood pressure 159 mm[Hg] Farooq SALAM [facility] 05-10-2021 11:11-0400 Diastolic blood pressure 90 mm[Hg] Farooq SALAM [facility] 05-10-2021 11:11-0400 Systolic blood pressure 180 mm[Hg] Farooq SALAM [facility] Encounters Encounter Date Encounter Type Care Provider Facility Start: 03-07-2023 End: 03-07-2023 ambulatory Danyell Morales Other [facility] Other Start: 03-07-2023 Office outpatient vi sit 15 minutes Danyell Morales [facility] Start: 09-20-2022 End: 09-20-2022 ambulatory Danyell Morales Other [facility] Other Start: 09-20-2022 Telephone encounter Danyell Morales [facility] Start: 09-04-2022 End: 09-04-2022 ambulatory Danyell Morales Other [facility] Other Start: 09-04-2022 Patient encounter procedure Danyell Morales [facility] Start: 04-19-[address] DANYELL MORALES Facil ity:[facility] Start: 03-01-2022 End: 03-01-2022 ambulatory Danyell Morales Other [facility] Other Start: 03-01-2022 Office outpatient vi sit 15 minutes Danyell Morales [facility] Start: 01-18-2022 End: 01-19-[address] DANYELL MORALES Facility:[facility] Start: 11-21-2021 End: 11-22-2021 ambulatory CAPRI SYEDAM Facility:[facility] Start: 11-08-2021 End: 11-09-2021 ambulatory [facility] Facility:[facility] Start: 11-08-2021 End: 11-08-2021 Patient encounter procedure Farooq SALAM [facility] Start: 10-19-2021 End: 10-20-[address] DANYELL MORALES Facility:[facility] Start: 09-27-2021 End: 09-28-[address] DANYELL MORALES Facility:[facility] Start: 09-26-2021 End: 09-26-[address] DANYELL MORALES Facility:[facility] Start: 09-25-2021 Encounter for preprocedural laboratory examination DR RADHA IRAHETA [facility] Start: 09-22-2021 End: 09-23-[address] DANYELL MORALES Facility:[facility] Start: 09-22-2021 End: 09-23-2021 Encounter for preprocedural laboratory examination DR DANYELL MORALES Facility:[facility] Start: 09-11-[address] DANYELL MORALES Facil ity:[facility] Start: 09-06-2021 End: 09-07-2021 ambulatory ROBERTO MCNALLY Facility:[facility] Start: 08-30-2021 Adult health examination Malia Morales Other [facility] Other Start: 06-22-2021 End: 06-23-2021 ambulatory CAPRI ROA Facility:[facility] Start: 05-31-2021 End: 05-31-2021 ambulatory Luis Gutierrez Facility:[facility] Start: 05-26-2021 End: 05-26-2021 ambulatory Danyell Morales Facility:[facility] Start: 05-26-2021 End: 05-26-2021 Patient encounter procedure MD Cy Sears Work Phone: [facility] Start: 05-22-2021 End: 05-23-[address] DANYELL MORALES Facility:[facility] Start: 05-10-2021 ambulatory Farooq SALAM [facility] Start: 05-10-2021 End: 05-11-2021 ambulatory Farooq SALAM [facility] Start: 05-10-2021 End: 05-10-2021 Patient encounter procedure Farooq SALAM [facility] Start: 05-09-2021 ambulatory Farooq SALAM [facility] Start: 05-04-2021 End: 05-04-2021 ambulatory Cy Sears Facility:[facility] Start: 05-04-2021 End: 05-04-2021 Patient encounter procedure MD Cy Sears Work Phone: [facility] Start: 04-20-2021 End: 04-21-2021 ambulatory FAROOQ SALAM Facility:[facility] Start: 04-05-2021 ambulatory Farooqsabrina ROA Facility:[facility] Start: 04-01-2021 End: 04-02-[address] DANYELL MORALES Facility:[facility] Start: 03-23-2021 End: 03-24-[address] DANYELL MORALES Facility:[facility] Start: 03-09-2021 End: 03-10-[address] DANYELL MORALES Facility:[facility] Start: 01-24-2021 ambulatory Farooq SALAM Facility: [facility] Procedures Date Procedure Procedure Detail Performing Clinician Start: 05-31-2021 Antibody screen Benjami n Matt Comment on above: Order Comment: Trans fuse now? N Result Comment: PERF ORMED BY: [facility] [address] [place] [address] PATHOLOGIST TELEVISION SCRIPT WRITER TRICIA OSHEA M.D. Start: 02-16-2020 Colonoscopy w/biopsy single/multiple Farooq SALAM Colonoscopy Farooq SALAM Screening for malign ant neoplasm of breast Danyell Morales Other Immunizations Immunization Date Immunization Notes Care Provider Lorrie ng 12-09-2020 COVID-19 mRNA-1273 (Moderna) MD Cy Sears Work Phone: [facility] 11-15-2020 influenza virus vaccine, split virus (incl. purified surface antigen) Danyell Morales Other [facility] Other 11-11-2020 influenza virus vaccine, unspecified formulation [facility] 04-26-2020 COVID-19 mRNA-1273 (Moderna) MD Cy Sears Work Phone: [facility] 03-23-2020 COVID-19 mRNA-1273 (Moderna) MD Cy Sears Work Phone: [facility] 11-20-2019 influenza virus vaccine, split virus (incl. purified surface antigen) Danyell Morales Other [facility] Other 10-24-2016 influenza virus vaccine, split virus (incl. purified surface antigen) Danyell Morales Other [facility] Other 10-24-2016 pneumococcal conjuga te vaccine, 13 valent Danyell Morales Other [facility] Other 08-31-2014 tetanus toxoid, reduced diphtheria toxoid, and acellular pertussis vaccine, adsorbed Danyell Morales Other [facility] Other 11-30-2013 pneumococcal polysaccharide vaccine, 23 valent Danyell Morales Other [facility] Other NEGATED: Highlighted row has not occurred!11-08-2021 influenza virus vaccine, unspecified formulation Farooq SALAM [facility] Payers Date Payer Category Payer Self-pay [id number] 1961 Medicare [id number] 1959 Unknown [id number] 1948 Unknown [id number] 2.16.8 40.1.465924.3.579.2.727 1948 Unknown [id number] 2.16.8 40.1.967577.3.579.2.727 1948 Unknown [id number] 2.16.84 0.1.202505.3.579.2.727 1948 Unknown [id number] 2.16.84 0.1.134915.3.579.2.593 1948 Unknown [id number] 2.16.84 0.1.629263.3.579.2.593 1948 Unknown [id number] 2.16.84 0.1.013392.3.579.2.593 1948 Unknown [id number] 2.16.84 0.1.249978.3.579.2.593 1948 Unknown [id number] 2.16.84 0.1.020474.3.579.2.593 1948 Unknown [id number] 2.16.84 0.1.412747.3.579.2.593 1948 Unknown [id number] 2.16.84 0.1.300563.3.579.2.593 1948 Unknown [id number] 2.16.84 0.1.216935.3.579.2.593 1948 Unknown [id number] 2.16.84 0.1.282168.3.579.2.593 1948 Unknown [id number] 2.16.84 0.1.950041.3.579.2.593 1948 Unknown [id number] 2.16.84 0.1.547232.3.579.2.593 1948 Unknown [id number] 2.16.84 0.1.817360.3.579.2.593 1948 Unknown [id number] 2.16.84 0.1.254784.3.579.2.593 1948 Unknown [id number] 2.16.84 0.1.590625.3.579.2.593 1948 Unknown [id number] 2.16.84 0.1.344610.3.579.2.593 1948 Unknown [id number] 2.16.84 0.1.143123.3.579.2.593 1948 Unknown [id number] 2.16.84 0.1.236942.3.579.2.593 Medicare Self Pay [id number] Private Health Insurance CLI [id number] 2.16.840.1.693321.19 Unknown [id number] 2.16.8 40.1.637254.3.579.2.531 Unknown [id number] 2.16.8 40.1.072983.3.579.2.531 Unknown [id number] 2.16.8 40.1.164841.3.579.2.531 Social History Date Type Detail [facility] Work Phone: Start: 1950 Sex Assigned At Female F [facility] Start: 05-10-2021 End: 11-08-2021 Tobacco smoking status Heavy tobacco smoker (finding) [facility] Sex Assigned At Female [facility] Start: 05-26-2021 Tobacco smoking stat us NHIS Smoker (finding) [facility] Functional Status Date Assessment Result Facility 11-08-2021 Functional Status N/A [facility] Clinical Notes 01-24-2021 to 03-07-2023 [...] continue to monitor through routine blood work [facility] Other 08-10-2023 Evaluation note* Encounter Date Diagnosis Assessment Notes Treatment Notes Treatment Clinical Notes Sep, Right foot pain (ICD-10 - M79.671) [facility] Other 07-25-2023 Evaluation note* Encounter Date Diagnosis [...] - E03.9) Chronic problem due for labs. [facility] Other 01-19-2023 Evaluation note* Encounter Date Diagnosis [...] - E78.5) Due for labs in summer. [facility] Other 12-08-2022 NoteCONSULTATION PROCEDURE DATE: 01/18/2022 PREOPERATIVE [...] will be followed up in the office.[id number] NoteCONSULTATION CONSULTATION DATE: 01/18/2022 HISTORY OF PRESENT [...] in three months' time, unless otherwise indicated.[id number] Evaluation + Plan note Diagnostic Tests Pending * CBC w/ Auto Diff 11/08/21 * Comprehensive Metabolic Panel 11/08/21 [facility] 09-08-2022 NoteCONSULTATION PROCEDURE DATE: 11/16/2021 [...] will be followed up in the office.[facility] 10-19-2021 NoteCONSULTATION CONSULTATION DATE: 10/19/2021 This is [...] in three months' time unless otherwise indicated.[id number] NoteCONSULTATION CONSULTATION DATE: 09/06/2021 HISTORY OF PRESENT [...] 8/10. She has been following up with [facility] and had a benign fibroid tumor removal [...] procedure, and patient agrees to move forward.[id number] NoteCONSULTATION PAIN MANAGEMENT CONSULTATION HISTORY: This is [...] of care and will call when needed. [facility] Signed and Approved by: ROBERTO MCNALLY . 04/27/2021 12:41:00[id number] Hospital Discharge instructions Follow Up Care 01/24/2021 10:04:31 With:JANINA ALARCON, LENORE Farooq, [facility] Address: [facility] [address], [place] [address]- When:6 months [facility] Evaluation + Plan note Future Appointments Appointment Date:11/08/2021 10:15:00 AM Scheduled Provider:Capri ROA MD Location:[facility] Appointment Type:[facility] Follow Up Future Scheduled Tests Laboratory* CBC w/ Indices 07/25/20 * Comprehensive Metabolic Panel 07/25/20 [facility] Evaluation noteNo assessment information available [facility] Work Phone: [facility] Narrative - Reported* Type Description Date Medical History GERD Medical History Hypothyroid Medical History Depression Surgical History Appendectomy Surgical History Tubal Ligation Surgical History Right carpal tunnel Surgical History Right finger Surgical History 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 Hospitalization History See past surgical hx [facility] Other Hospital course Narrative No data available for this section [facility] Hospital Discharge instructions No data available for this section [facility] Progress note No data available for this section [facility] Chief Complaint and Reason for Visit Chief Complaint Esophageal Mass 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 Had Xray Diagnosis 1 Right foot pain (M79 .671) Referral Organization [facility] Referring Provider First Name Danyell Referring Provider Last Name Robin Referring Provider Specialty [facility] Referred Organization [facility] Referred Provider Seymour Johnson Referred Address [address] [facility],[place], [place],[address] Referred Provider Specialty Podiatry - S urgical Chiropody Referral Priority Routine General Notes Traci Lema 03:01:16 PM >received today, attachments made, notes locked, referral faxed Additional Source Comments Care Teams (unrecognized sec tion and content) Team Status: Inactive Member Role Status Dates Cy Sears MD Attending Provider Active Danyell Morales MD Primary Care Provider Active Team Status: Active Member Role Status Dates Danyell Morales MD Primary Care Provider Active Team Status: Inactive Member Role Status Dates Danyell Morales MD Primary Care Provider Active Luis Gutierrez DO Attending Provider Active Goals (unrecognized section and content) Goals may be documented in a n alternate section No data available for this sectionGoals may be documented in an alternate section No data available for this sectionNo InformationNo InformationNo InformationNo Information INFORMATION SOURCE (unrecogn ized section and content) DATE CREATED AUTHOR 05/23/2021 [facility] dical Specialist DATE CREATED AUTHOR AUTHOR'S ORGANIZ ATION 11/14/2021 [facility] DATE CREATED AUTHOR AUTHOR'S ORGANIZ ATION 01/23/2022 [facility] DATE CREATED AUTHOR AUTHOR'S ORGANIZ ATION 03/17/2022 [facility] REASON FOR VISIT (unrecogniz ed section and [...] BE BASED ON THE PRIMARY CLINICAL RECORDS. [facility]. provides no warranty or guarantee of the accuracy or completeness of information in this document.
--- NOTE | 2023-08-19 08:10 | MR_ITS ---
The [address] [address] Patient Name: ALEXANDRA GARDNER MRN: [id number] date: 1950 Sex: F Assigned Patient Location: MRI Current Patient Location: Accession/Order Number: [id number] Exam Date: 08/19/2023 09:03 Report Date: 08/20/2023 13:01 At the request of: AMY GAGE Procedure: MR ankle RT wo con EXAM: MR ankle RT wo con HISTORY: Right Peroneal Tendonitis COMPARISON: 06/04/2023 TECHNIQUE: MRI images obtained with multiple sequences. MRI of the right ankle without contrast. Sequences obtained by standard department protocol. FINDINGS: Mild degeneration of the second, third and fourth tarsometatarsal joints. No significant degeneration of the ankle joint or subtalar joint. Achilles tendon and plantar fascia are intact. No ankle joint effusion. No acute fracture or dislocation. Extensor, flexor and peroneal tendons are intact. Anterior and posterior syndesmotic ligaments are intact. Anterior talofibular, posterior talofibular and calcaneofibular ligaments are intact. Deltoid ligament fibers are intact. No abnormal signal of the plantar musculature. MR/MR ankle RT wo con IMPRESSION: 1. No acute tendinous or ligamentous abnormality. 2. Achilles tendon is intact. 3. Mild degeneration at the second through fourth tarsometatarsal joints. Electronically authenticated by: NENO CAGLE Date: 08/20/2023 13:01
== END 2023-08-19 07:47 | disposition home or self-care (01) ==
LOC: MRI 07:46
PROVIDERS: PCP Family Medicine; Visit Provider Physician Assistant
DX: M76.71 Peroneal tendinitis, right leg (principal)
CPT/HCPCS: 73721

== ENCOUNTER 2023-08-19 07:49 | Outpatient (OUT) | payer MEDICARE, OTHER, SELFPAY ==
--- OUTSIDE RECORDS SUMMARY | 2023-08-19 07:55 | XMS_ITS ---
Patient Summarization (C-CDA 2.1 CCD) Created on: August 19, 2023 ALEXANDRA CERVANTES : 1950 Sex: Female Author Organization Sample organization Care Team Providers Care Quality Improvement Analyst Name Role Phone MD Cy Sears Attending Provider [phone] MD Danyell Morales Primary Care Provider DANYELL MORALES Primary Care Physician [phone] DO Luis Gutierrez Attending Provider Capri ROA [...] Unavailable ESEQUIEL, DR RADHA Whitfield Admitting Unavailable ROBERTO MCNALLY Consulting Unavailable SALAM, CAPRI Admitting Unavailable MORALES, DR DANYELL Solis Primary Care Unavailable SALAM, CAPRI Attending Unavailable SHANKAR, DR SCHRADER Consulting Unavailable MORALES, DR DANYELL Solis Primary Care Unavailable MORALES, DR DANYELL Solis Admitting Unavailable MORALES, DR DANYELL Solis Attending Unavailable WEST, DR LONNY Wiggins Consulting Unavailable MORALES, DR DANYELL Solis Consulting Unavailable MORALES, DR DANYELL Solis Primary Care Unavailable ESEQUIEL, DR RADHA Whitfield Attending Unavailable ESEQUIEL, DR RADHA Whitfield Consulting Unavailable ESEQUIEL, DR RADHA Whitfield Admitting Unavailable SABINA STONE Consulting Unavailable MORALES, DR DANYELL Solis Primary Care Unavailable IRAHETA, DR RADHA Whitfield Admitting Unavailable IRAHETA, DR RADHA Whitfield Attending Unavailable MCNALLY, ROBERTO Consulting Unavailable MORALES, DR DANYELL Solis Primary Care Unavailable IRAHETA, DR RADHA Whitfield Attending Unavailable IRAHETA, DR RADHA Whitfield Admitting Unavailable MORALES, DR DANYELL Solis Primary Care Unavailable IRAHETA, DR RADHA Whitfield Admitting Unavailable IRAHETA, DR RADHA Whitfield Attending Unavailable IRAHETA, DR RADHA Whitfield Consulting Unavailable MCNALLY, ROBERTO Consulting Unavailable MCNALLY, ROBERTO Consulting Unavailable MORALES, DR DANYELL Solis Primary Care Unavailable IRAHETA, DR RADHA Whitfield Attending Unavailable IRAHETA, DR RADHA Whitfield Admitting Unavailable MORALES, DR DANYELL Solis Primary Care Unavailable IRAHETA, DR RADHA Whitfield Attending Unavailable ESEQUIEL, DR RADHA Whitfield Admitting Unavailable SALAM, CAPRI Admitting Unavailable MORALES, DR DANYELL Solis Primary Care Unavailable SALAM, FAROOQ Attending Unavailable SALAM, FAROOQ Consulting Unavailable MORALES, DR DANYELL Solis Primary Care Unavailable MISC, DR HIDALGO Admitting Unavailable MISC, DR HIDALGO Attending Unavailable MISC, DR HIDALGO Consulting Unavailable Luis Gutierrez Admitting Unavailable Danyell Morales Primary Care Unavailable Luis Gutierrez Attending Unavailable DeRamish, Cy Attending Unavailable Cy Sears Admitting Unavailable Danyell Morales Primary Care Unavailable Danyell Morales Primary Care Unavailable Luis Gutierrez Attending Unavailable Luis Gutierrez Admitting Unavailable Morales, Danyell Unavailable Allergies Allergy Classification Reported Allergen(s) Allergy Type Date of Onset Reaction(s) Facility (4 sources) varenicline Drug Allergy Unknown [facility] Other Encounters Encounter Date Encounter Type Care Provider Facility Start: 03-07-2023 End: 03-07-2023 ambulatory Danyell Morales Other [facility] Other Start: 03-07-2023 Office outpatient vi sit 15 minutes Danyell Morales [facility] Start: 09-20-2022 End: 09-20-2022 ambulatory Danyell Morales Other [facility] Other Start: 09-20-2022 Telephone encounter Danyell Morales [facility] Start: 09-04-2022 End: 09-04-2022 ambulatory Danyell Morales Other [facility] Other Start: 09-04-2022 Patient encounter procedure Danyell Morales [facility] Start: 04-19-[address] DANYELL MORALES Facil ity:[facility] Start: 03-01-2022 End: 03-01-2022 ambulatory Danyell Morales Other [facility] Other Start: 03-01-2022 Office outpatient vi sit 15 minutes Danyell Morales [facility] Start: 01-18-2022 End: 01-19-[address] DANYELL MORALES Facility:[facility] Start: 11-21-2021 End: 11-22-2021 ambulatory FAROOQPARRISH SYED Facility:[facility] Start: 11-08-2021 End: 11-09-2021 ambulatory [facility] Facility[facility] Start: 11-08-2021 End: 11-08-2021 Patient encounter procedure [facility] Start: 10-19-2021 End: 10-20-[address] DANYELL MORALES Facility:[facility] Start: 09-27-2021 End: 09-28-[address] DANYELL MORALES Facility:[facility] Start: 09-26-2021 End: 09-26-[address] DANYELL MORALES Facility:[facility] Start: 09-25-2021 Encounter for preprocedural laboratory examination DR RADHA IRAHETA [facility] Start: 09-22-2021 End: 09-23-[address] DANYELL MORALES Facility:[facility] Start: 09-22-2021 End: 09-23-2021 Encounter for preprocedural laboratory examination DR DANYELL MORALES Facility:[facility] Start: 09-11-[address] DANYELL MORALES Facil ity:[facility] Start: 09-06-2021 End: 09-07-2021 ambulatory ROBERTO MOURAIS Facility:[facility] Start: 08-30-2021 Adult health examination Malia Morales Other [facility] Other Start: 06-22-2021 End: 06-23-2021 ambulatory CAPRI ROA Facility:[facility] Start: 05-31-2021 End: 05-31-2021 ambulatory Luis Gutierrez Facility:[facility] Start: 05-26-2021 End: 05-26-2021 ambulatory Danyell Morales Facility:[facility] Start: 05-26-2021 End: 05-26-2021 Patient encounter procedure MD Cy Sears Work Phone: [facility] Start: 05-22-2021 End: 05-23-[address] DANYELL MORALES Facility:[facility] Start: 05-10-2021 ambulatory Capri ROA Facility:[facility] Start: 05-10-2021 End: 05-11-2021 ambulatory Farooq SALAM Facility:[facility] Start: 05-10-2021 End: 05-10-2021 Patient encounter procedure Farooq SALAM [facility] Start: 05-09-2021 ambulatory Farooqparrish ROA Facility:[facility] Start: 05-04-2021 End: 05-04-2021 ambulatory Cy Sears Facility:[facility] Start: 05-04-2021 End: 05-04-2021 Patient encounter procedure MD Cy Sears Work Phone: [facility] [place] Start: 04-20-2021 End: 04-21-2021 ambulatory CAPRI ROA Facility:[facility] Start: 04-05-2021 ambulatory Capri ROA Facility:[facility] Start: 04-01-2021 End: 04-02-[address] DANYELL MORALES Facility:[facility] Start: 03-23-2021 End: 03-24-[address] DANYELL MORALES Facility:[facility] Start: 03-09-2021 End: 03-10-[address] DANYELL MORALES Facility:[facility] Start: 01-24-2021 ambulatory [facility] Facility:[facility] Immunizations Immunization Date Immunization Notes Care Provider Lorrie ng 12-09-2020 COVID-19 mRNA-1273 (Moderna) MD Cy Sears Work Phone: [facility] 11-15-2020 influenza virus vaccine, split virus (incl. purified surface antigen) Danyell Morales Other [facility] Other 11-11-2020 influenza virus vaccine, unspecified formulation [facility] 04-26-2020 COVID-19 mRNA-1273 (Moderna) MD Cy Sears Work Phone: [facility] 03-23-2020 COVID-19 mRNA-1272 (Moderna) MD Cy Sears Work Phone: [facility] 11-20-2019 influenza virus vaccine, split virus (incl. purified surface antigen) Danyell Morales Other [facility] Other 10-24-2016 influenza virus vaccine, split virus (incl. purified surface antigen) Danyell Morales Other [facility] Other 10-24-2016 pneumococcal conjuga te vaccine, 13 valent Danyell Morales Other [facility] Other 08-31-2014 tetanus toxoid, reduced diphtheria toxoid, and acellular pertussis vaccine, adsorbed Danyell Morales Other [facility] Other 11-30-2013 pneumococcal polysaccharide vaccine, 23 valent Danyell Morales Other [facility] Other NEGATED: Highlighted row has not occurred!11-08-2021 influenza virus vaccine, unspecified formulation Capri ROA [facility] Medications Current Medications Medication Drug Class(es) Dates Sig (Normalized) Sig (Original) ALPRAZolam 0.5 mg oral tablet (7 sources) Benzodiazepine Start: 02-27-2023 Start: 09-03-2022 ALPRAZolam 0.5 mg TAKE ONE TABLET BY MOUTH TWICE A DAY NEEDED FOR 30 DAYS for Aug, Active Start: 03-01-2022 take 1 tablet [...] Daily, # 30 tab(s), Refills(s) 0, Pharmacy: [facility] 1155, 150, cm, 07/25/20 14:29:00 EDT, Height/Length [...] Ordered take 1 tablet by maia th once daily Levothyroxine Sodium 75 MCG TAKE [...] PO Daily May 26, 2021 2:53pm NuLYTELY [place] oral powder for reconstitution (1 source) Start: 01-28-2020 take 1 dose by mouth once NuLYTELY [place] oral powder for reconstitution See Instructions, 1 EA, Refill(s) 0, PER [facility] [employer] [facility], 150, cm, 01/28/20 10:49:00 [...] Once a day Active polyethylene glycol 3350 419321 mg / potassium chloride 1480 mg / sodium bicarbonate 5720 mg / sodium chloride 30014 mg powder for oral solution (1 source) Osmotic Laxative Start: 01-28-2020 take 1 dose by mouth once NuLYTELY [place] oral powder for reconstitution See Instructions, 1 [...] Start: 05-10-2021 take 2 tablets by mo [facility] three times daily sulfasalazine 500 mg Tab 1,000 mg = 2 tab(s), Oral, TID, # 180 tab(s), Refills(s) 11, Pharmacy: [facility]/pharmacy #[id number], 150, cm, 05/10/21 11:13:00 EDT, Height/Length Dosing, 71, kg, 05/10/21 11:13:00 EDT, Weight Dosing Start Date: 05/10/21 Status: Ordered take 1 tablet by maia every twenty-four hours Vitamin D And Calcium [...] a day for 10 day(s) Sep, Not-Taking Payers Date Payer Category Payer Self-pay [id number] 1961 Medicare [id number] 1961 Unknown [id number] 1950 Unknown [id number] 2.16.8 40.1.308154.3.579.2.727 1950 Unknown [id number] 2.16.8 40.1.190728.3.579.2.727 1950 Unknown [id number] 2.16.84 0.1.509220.3.579.2.727 1950 Unknown [id number] 2.16.84 0.1.565657.3.579.2.593 1950 Unknown [id number] 2.16.84 0.1.804654.3.579.2.593 1950 Unknown [id number] 2.16.84 0.1.443505.3.579.2.593 1950 Unknown [id number] 2.16.84 0.1.944947.3.579.2.593 1950 Unknown [id number] 2.16.84 0.1.175592.3.579.2.593 1950 Unknown [id number] 2.16.84 0.1.446736.3.579.2.593 1950 Unknown [id number] 2.16.84 0.1.085093.3.579.2.593 1950 Unknown [id number] 2.16.84 0.1.223888.3.579.2.593 1950 Unknown [id number] 2.16.84 0.1.398318.3.579.2.593 1950 Unknown [id number] 2.16.84 0.1.171742.3.579.2.593 1950 Unknown [id number] 2.16.84 0.1.648676.3.579.2.593 1950 Unknown [id number] 2.16.84 0.1.098607.3.579.2.593 1950 Unknown [id number] 2.16.84 0.1.043970.3.579.2.593 1950 Unknown [id number] 2.16.84 0.1.606634.3.579.2.593 1950 Unknown [id number] 2.16.84 0.1.694061.3.579.2.593 1950 Unknown [id number] 2.16.84 0.1.387034.3.579.2.593 1950 Unknown [id number] 2.16.84 0.1.593000.3.579.2.593 Medicare Self Pay [id number] Private Health Insurance CLI [id number] 2.16.840.1.400314.19 Unknown [id number] 2.16.8 40.1.214242.3.579.2.531 Unknown [id number] 2.16.8 40.1.563343.3.579.2.531 Unknown [id number] 2.16.8 40.1.635407.3.579.2.531 Problems Active Problems Problem Classification Problem Date [...] Translations: [LOW BACK PAIN, UNSPECIFIED] Onset: 09-26-2021 Procedures Date Procedure Procedure Detail Performing Clinician Start: 05-31-2021 Antibody screen Adeline Gutierrez Comment on above: Order Comment: Trans fuse now? N Result Comment: PERF ORMED BY: [address] [place] [address] PATHOLOGIST [employer] APPRAISER TRICIA OSHEA M.D. Start: 02-16-2020 Colonoscopy w/biopsy single/multiple Vyatta Colonoscopy [facility] [employer] Screening for malign ant neoplasm of breast Danyell Morales Other Results Test Name Value Interpretation Reference Range Facility CBC AUTO DIFFon 11-21-2021 BASO # 0.1 103/ul Normal 0.0-0.1 [facility] Comment on above: Performed By: #### C BC #### [facility] [address] [address] [address] Scooby Irvin Basophils/100 WBC (Bld) 0.5 % Normal 0.2-2.0 [facility] Comment on above: Performed By: #### C BC #### [facility] [address] [address] [address] Scooby Irvin EO # 0.0 103/ul Normal 0.0-0.7 [facility] Comment on above: Performed By: #### C BC #### [facility] [address] [address] [address] Scooby Irvin Eosinophils/100 WBC (Bld) 0.1 % Critically low 0.9-7.0 [facility] Comment on above: Performed By: #### C BC #### [facility] [address] [place] [address] Dr. Scooby Irvin Erythrocyte distribution width (RBC) [Ratio] 15.1 % Critically high 11.0-15.0 [facility] Comment on above: Performed By: #### C BC #### [facility] [address] [place] [address] Dr. Scooby Irvin Hematocrit (Bld) [Volume fraction] 39.4 % Normal 36.0-48.0 [facility] Comment on above: Performed By: #### C BC #### [facility] [address] [place] [address] Dr. Scooby Irvin Hemoglobin (Bld) [Mass/Vol] 12.6 g/dL Normal 12.0-16.0 [facility] Comment on above: Performed By: #### C BC #### [facility] [address] [address] [address] Scooby Irvin IG # 0.05 10e3/ul Critically high 0.00-0.03 [facility] Comment on above: Performed By: #### C BC #### [facility] [address] [place] [address] Dr. Scooby Irvin IG % 0.5 % Normal 0.0-0.5 [facility] Comment on above: Performed By: #### C BC #### [facility] [address] [address] [address] Scooby Irvin LYMPH # 1.3 103/ul Normal 1.2-3.8 [facility] Comment on above: Performed By: #### C BC #### [facility] [address] [place] [address] Dr. Scooby Irvin Lymphocytes/100 WBC (Bld) 13.2 % Critically low 20.5-60.0 [facility] Comment on above: Performed By: #### C BC #### [facility] [address] [place] [address] Dr. Scooby Irvin MANUAL DIFF REQ NO Normal [facility] Comment on above: Performed By: #### C BC #### [facility] [address] [place] [address] Dr. Scooby Irvin MCH (RBC) [Entitic mass] 30.0 pg Normal 26.7-34.0 [facility] Comment on above: Performed By: #### C BC #### [facility] [address] [place] [address] Dr. Scooby Irvin MCHC (RBC) [Mass/Vol] 32.0 g/dL Normal 29.9-35.2 [facility] Comment on above: Performed By: #### C BC #### [facility] [address] [place] [address] Dr. Scooby Irvin MCV (RBC) [Entitic vol] 93.8 fL Normal 81.0-99.0 [facility] Comment on above: Performed By: #### C BC #### [facility] [address] [place] [address] Dr. Scooby Irvin MONO # 0.7 103/ul Normal 0.3-0.8 [facility] Comment on above: Performed By: #### C BC #### [facility] [address] [place] [address] Dr. Scooby Irvin Monocytes/100 WBC (Bld) 7.2 % Normal 1.7-12.0 [facility] Comment on above: Performed By: #### C BC #### [facility] [address] [address] [address] Scooby Irvin NEUT # 7.5 103/ul Critically high 1.4-6.5 [facility] Comment on above: Performed By: #### C BC #### [facility] [address] [place] [address] Dr. Scooby Irvin Neutrophils/100 WBC (Bld) 78.5 % Critically high 43.0-75.0 [facility] Comment on above: Performed By: #### C BC #### [facility] [address] [place] [address] Dr. Scooby Irvin Platelet mean volume (Bld) [Entitic vol] 9.9 fL Normal 9.5-13.5 [facility] Comment on above: Performed By: #### C BC #### [facility] [address] [place] [address] Dr. Scooby Irvin PLT 230 103/ul Normal 150-450 [facility] Comment on above: Performed By: #### C BC #### [facility] [address] [place] [address] Dr. Scooby Irvin RBC 4.20 106/ul Normal 4.20-5.40 [facility] Comment on above: Performed By: #### C BC #### [facility] [address] [place] [address] Dr. Scooby Irvin WBC 9.5 103/ul Normal 4.0-11.0 [facility] Comment on above: Performed By: #### C BC #### [facility] [address] [place] [address] Dr. Scooby Irvin PROF 14(COMP METB)on 022 Albumin [Mass/Vol] 3.9 g/dL Normal 3.4-5.0 [facility] Comment on above: Performed By: #### C BC #### [facility] [address] [place] [address] Dr. Scooby Irvin Albumin/Globulin [Mass ratio] 1.0 {ratio} Normal [facility] Comment on above: Performed By: #### C BC #### [facility] [address] [address] [address] Scooby Irvin ALP [Catalytic activity/Vol] 87 U/L Normal 46-116 [facility] Comment on above: Performed By: #### C BC #### [facility] [address] [address] [address] Scooby Irvin ALT [Catalytic activity/Vol] 29 U/L Normal 14-59 [facility] Comment on above: Performed By: #### C BC #### [facility] [address] [address] [address] Scooby Irvin Anion gap [Moles/Vol] 14.1 mmol/L Normal [facility] Comment on above: Performed By: #### C BC #### [facility] [address] [place] [address] Dr. Scooby Irvin AST [Catalytic activity/Vol] 38 U/L Critically high 15-37 [facility] Comment on above: Performed By: #### C BC #### [facility] [address] [place] [address] Dr. Scooby Irvin Bilirubin [Mass/Vol] 0.5 mg/dL Normal 0.2-1.0 [facility] Comment on above: Performed By: #### C BC #### [facility] [address] [place] [address] Dr. Scooby Irvin Calcium [Mass/Vol] 9.2 mg/dL Normal 8.5-10.1 [facility] Comment on above: Performed By: #### C BC #### [facility] [address] [place] [address] Dr. Scooby Irvin Chloride [Moles/Vol] 102 mmol/L Normal 98-107 [facility] Comment on above: Performed By: #### C BC #### [facility] [address] [address] [address] Scooby Irvin CO2 [Moles/Vol] 25.7 mmol/L Normal 21.0-32.0 [facility] Comment on above: Performed By: #### C BC #### [facility] [address] [place] [address] Dr. Scooby Irvin Creatinine [Mass/Vol] 0.76 mg/dL Normal 0.55-1.02 [facility] Comment on above: Performed By: #### C BC #### [facility] [address] [place] [address] Dr. Scooby Irvin EGFR-AF ROMANIAN >60 Normal >=60 [facility] Comment on above: Performed By: #### C BC #### [facility] [address] [place] [address] Dr. Scooby Irvin EGFR-NON AF ROMANIAN >60 Normal >=60 [facility] Comment on above: Performed By: #### C BC #### [facility] [address] [place] [address] Dr. Scooby Irvin Globulin (S) [Mass/Vol] 3.8 g/dL Normal T [facility] Comment on above: Performed By: #### C BC #### [facility] [address] [place] [address] Dr. Scooby Irvin Glucose [Mass/Vol] 104 mg/dL Normal 74-106 [facility] Comment on above: Performed By: #### C BC #### [facility] [address] [place] [address] Dr. Scooby Irvin Potassium [Moles/Vol] 4.8 mmol/L Normal 3.5-5.1 [facility] Comment on above: Performed By: #### C BC #### [facility] [address] [place] [address] Dr. Scooby Irvin Protein [Mass/Vol] 7.7 g/dL Normal 6.4-8.2 [facility] Comment on above: Performed By: #### C BC #### [facility] [address] [place] [address] Dr. Scooby Irvin Sodium [Moles/Vol] 137 mmol/L Normal 136-145 [facility] Comment on above: Performed By: #### C BC #### [facility] [address] [place] [address] Dr. Scooby Irvin Urea nitrogen [Mass/Vol] 9.0 mg/dL Normal 7.0-18.0 [facility] Comment on above: Performed By: #### C BC #### [facility] [address] [place], [place] [address] Dr. Scooby Irvin Urea nitrogen/Creatinine [Mass ratio] 11.8 mg/mg Normal [facility] Comment on above: Performed By: #### C BC #### [facility] [address] [place], [place] [address] Dr. Scooby Irvin Gastroenterology Office/Clin ic Noteon [...] done for her thyroid and cholesterol at [place]. Alexandra denies having any other GI concerns [...] Phani Celeste to record this visit. JASS waste specialist and provider reviewed before signing. JASS: [...] 1 tab(s), Oral, TID levothyroxine, Daily NuLYTELY [place] oral powder for reconstitution, See Instructions omeprazole, [...] influenza virus vaccine, inactivated 11/2020 Recorded Normal [facility] Comment on above: Result Comment: Elec [...] omeprazole polyethylene glycol 3350 with electrolytes (NuLYTELY [place] oral powder for reconstitution) simvastatin sulfasalazine (sulfasalazine [...] Unchanged polyethylene glycol 3350 with electrolytes (NuLYTELY [place] oral powder for reconstitution) See instructions PER [...] treatment for. Chronic pancolonic ulcerative colitis Normal [facility] LIPID PROFILEon 09-27-2021 CHOL-HDL RATIO NORM SEE BELOW Normal [facility] Comment on above: Result Comment: 3.3 - 4.4 LOW RISK 4.4 - 7.1 AVERAGE RISK 7.1 - 11.0 MODERATE RISK >11.0 HIGH RISK Performed By: #### C MP, LIPID #### [facility] [address] [place], [place] [address] Dr. Scooby Irvin Cholesterol [Mass/Vol] 235 mg/dL Critically high <=200 [facility] Comment on above: Performed By: #### C MP, LIPID #### [facility] [address] [place], [place] [address] Dr. Scooby Irvin Cholesterol in HDL [Mass/Vol] 65 mg/dL Critically high 40-60 [facility] Comment on above: Performed By: #### C MP, LIPID #### [facility] [address] [address] [address] Scooby Irvin Cholesterol in LDL [Mass/Vol] 156.8 mg/dL Normal [facility] Comment on above: Performed By: #### C MP, LIPID #### [facility] [address] [place] [address] Dr[address] Scooby Irvin Cholesterol.total/Rachel sterol in HDL [Mass ratio] 3.6 {ratio} Normal [facility] Comment on above: Performed By: #### C MP, LIPID #### [facility] [address] [place] [address] Dr. Scooby Irvin HDL NORMAL > or = 60 mg/dl - LOW CARDIOVASCULAR RISK <40 mg/dl - HIGH CARDIOVASCULAR RISK Normal [facility] Comment on above: Performed By: #### C MP, LIPID #### [facility] [address] [place] [address] Dr. Scooby Irvin LDL CALC NORMAL SEE BELOW Normal [facility] Comment on above: Result Comment: <100 mg/dl OPTIMAL 100 - 129 mg/dl NEAR OR ABOVE OPTIMAL 130 - 159 mg/dl BORDERLINE HIGH 160 - 189 mg/dl HIGH >190 mg/dl VERY HIGH Performed By: #### C MP, LIPID #### [facility] [address] [place] [address] Dr. Scooby Irvin Triglyceride [Mass/Vol] 66 mg/dL Normal <=150 T [facility] Comment on above: Performed By: #### C MP, LIPID #### [facility] [address] [place] [address] Dr. Scooby Irvin VLDL CALC 13.2 mg/dL Normal [facility] Comment on above: Performed By: #### C MP, LIPID #### [facility] [address] [place] [address] Dr. Scooby Irvin PROF 14(COMP METB)on 022 Albumin [Mass/Vol] 3.9 g/dL Normal 3.4-5.0 [facility] Comment on above: Performed By: #### C MP, LIPID #### [facility] [address] [place] [address] Dr. Scooby Irvin Albumin/Globulin [Mass ratio] 1.1 {ratio} Normal [facility] Comment on above: Performed By: #### C MP, LIPID #### [facility] [address] [place] [address] Dr. Scooby Irvin ALP [Catalytic activity/Vol] 87 U/L Normal 46-116 [facility] Comment on above: Performed By: #### C MP, LIPID #### [facility] [address] [place] [address] Dr. Scooby Irvin ALT [Catalytic activity/Vol] 27 U/L Normal 14-59 [facility] Comment on above: Performed By: #### C MP, LIPID #### [facility] [address] [place] [address] Dr. Scooby Irvin Anion gap [Moles/Vol] 16.9 mmol/L Normal [facility] Comment on above: Performed By: #### C MP, LIPID #### [facility] [address] [place] [address] Dr. Scooby Irvin AST [Catalytic activity/Vol] 21 U/L Normal 15-37 [facility] Comment on above: Performed By: #### C MP, LIPID #### [facility] [address] [place] [address] Dr. Scooby Irvin Bilirubin [Mass/Vol] 0.4 mg/dL Normal 0.2-1.0 [facility] Comment on above: Performed By: #### C MP, LIPID #### [facility] [address] [place] [address] Dr. Scooby Irvin Calcium [Mass/Vol] 8.7 mg/dL Normal 8.5-10.1 [facility] Comment on above: Performed By: #### C MP, LIPID #### [facility] [address] [place] [address] Dr. Scooby Irvin Chloride [Moles/Vol] 102 mmol/L Normal 98-107 [facility] Comment on above: Performed By: #### C MP, LIPID #### [facility] [address] [place] [address] Dr. Scooby Irvin CO2 [Moles/Vol] 22.0 mmol/L Normal 21.0-32.0 [facility] Comment on above: Performed By: #### C MP, LIPID #### [facility] [address] [place] [address] Dr. Scooby Irvin Creatinine [Mass/Vol] 0.73 mg/dL Normal 0.55-1.02 [facility] Comment on above: Performed By: #### C MP, LIPID #### [facility] [address] [place] [address] Dr. Scooby Irvin EGFR-AF ROMANIAN >60 Normal >=60 [facility] Comment on above: Performed By: #### C MP, LIPID #### [facility] [address] [place] [address] Dr. Scooby Irvin EGFR-NON AF ROMANIAN >60 Normal >=60 [facility] Comment on above: Performed By: #### C MP, LIPID #### [facility] [address] [place] [address] Dr. Scooby Irvin Globulin (S) [Mass/Vol] 3.7 g/dL Normal [facility] Comment on above: Performed By: #### C MP, LIPID #### [facility] [address] [place] [address] Dr. Scooby Irvin Glucose [Mass/Vol] 105 mg/dL Normal 74-106 [facility] Comment on above: Performed By: #### C MP, LIPID #### [facility] [address] [place] [address] Dr. Scooby Irvin Potassium [Moles/Vol] 3.9 mmol/L Normal 3.5-5.1 [facility] Comment on above: Performed By: #### C MP, LIPID #### [facility] [address] [place] [address] Dr. Scooby Irvin Protein [Mass/Vol] 7.6 g/dL Normal 6.4-8.2 [facility] Comment on above: Performed By: #### C MP, LIPID #### [facility] [address] [place] [address] Dr. Scooby Irvin Sodium [Moles/Vol] 137 mmol/L Normal 136-145 [facility] Comment on above: Performed By: #### C MP, LIPID #### [facility] [address] [place] [address] Dr. Scooby Irvin Urea nitrogen [Mass/Vol] 11.0 mg/dL Normal 7.0-18.0 [facility] Comment on above: Performed By: #### C MP, LIPID #### [facility] [address] [place] [address] Dr. Scooby Irvin Urea nitrogen/Creatinine [Mass ratio] 15.1 mg/mg Normal [facility] Comment on above: Performed By: #### C MP, LIPID #### [facility] [address] [place] [address] Dr. Scooby Irvin TSHon 09-27-2021 TSH 2.198 uIU/mL Normal 0.358-3.740 [facility] Comment on above: Performed By: #### T SH #### [facility] [address] [place] [address] Dr. Scooby Irvin Covid-19 PCR (CVDTB)on 09-11 SARS-CoV-2 (COVID-19) RNA ADELITA+probe Ql (Unsp spec) Not detected Normal NOT DETECTED [facility] Comment on above: Result Comment: This test is not yet approved or cleared by the [place] FDA. When there are no FDA-approved or cleared tests available, and other criteria are met, FDA can make tests available under an emergency access mechanism called an Emergency Use Authorization (EUA). The EUA for this test is supported by the Chiropractic Assistant of Health and Human Service's (HHS's) declaration [...] SARS-CoV-2. Performed By: #### C BC #### [facility] [address] [place] [address] [address] Scooby Irvin TSHon 06-22-2021 TSH 2.326 uIU/mL Normal 0.358-3.740 [facility] Comment on above: Performed By: #### C BC #### [facility] [id number] Scooby Irvin TSH RANGE SEE BELOW Normal [facility] Comment on above: Result Comment: <0.3 4 UIU/ml HYPERTHYROID 0.34-5.60 UIU/ml EUTHYROID >5.60 UIU/ml HYPOTHYROID Performed By: #### C BC #### [facility] [address] [place] [address] Dr. Scooby Irvin ABO/Rh Retypeon 05-31-2021 ABO/RH Recheck Result Positive Normal [facility] Comment on above: Result Comment: PERF ORMED BY: [facility] [address] [place] [address] PATHOLOGIST RETURNED TELEPHONE EQUIPMENT APPRAISER TRICIA Yin 05-31-2021 L Specimen: [id number] Received: 05/31/21 Status: LIDIA Pineda Num: [id number] Spec Type: Surgical Subm Dr: Luis Gutierrez DO Tissues: A Parathyroid Gland (R/O PARATHYROID) B THYROID - Lobe (R SUBSTERNAL THYROID) Procedures: HE Stain/8, Gross/Micro L5, Gross/Micro L4 Patient Age/Sex Location Account Attending Physician Alexandra Cervantes 71/F [place] [id number] Luis Gutierrez DO SPEC NUM: [id number] RECD: 05/31/21 STATUS: LIDIA MIRIAM NUM: [id number] KATHY: 05/31/21- SUBM DR: Luis Gutierrez DO ENTERED: 05/31/21-[address] [facility] [address]: LANCE TYPE: Surgical DEPT: S ORDERED: [...] Specimen: Received: 05/31/21 Status: LIDIA Pineda Num: [id number] Spec Type: Surgical Subm Dr: Luis Gutierrez DO Tissues: A Parathyroid Gland (R/O PARATHYROID) B THYROID - Lobe (R SUBSTERNAL THYROID) Procedures: HE Stain/8, Gross/Micro L5, Gross/Micro L4 Patient: AmyJey sarkarha [id number] (Continued) Specimen: Received: 05/31/21 (Continued) Gross Description (Continued) Signed (signatur e on file) Tricia Oshea MD 06/01/211912 Specimen: [id number] Received: 05/31/21 Status: LIDIA Miriam Num: [id number] Spec Type: Surgical Subm Dr: Luis Gutierrez DO Tissues: A Parathyroid Gland (R/O PARATHYROID) B THYROID - Lobe (R SUBSTERNAL THYROID) Procedures: HE Stain/8, Gross/Micro L5, Gross/Micro L4 Patient: Alexandra Cervantes [id number] (Continued) Specimen: [id number] Received: 05/31/21 (Continued) Gross Description (Continued) demonstrates [...] microscopic findings support the above pathologic diagnosis. [id number] Specimen: [id number] Received: (more content not included)... Normal [facility] LeukoReduced RBCon 2 LeukoReduced RBC READY Normal [facility] Type and Screenon 05-31-2021 ABO and Rh group Nom (Bld) Blood group O Rh(D) positive Normal [facility] Comment on above: Order Comment: Trans fuse now? N Result Comment: PERF ORMED BY: [facility] [address] [place] [address] PATHOLOGIST RETURNED TELE[employer] EQUIPMENT APPRAISER TRICIA OSHEA M.D. Basic Metabolic Panelon 05-12 Calcium [Mass/Vol] 9.5 mg/dL Normal 8.2-10.2 [facility] Comment on above: Result Comment: PERF ORMED BY: [place] [address] PATHOLOGIST RETURNED TELEPHONE EQUIPMENT APPRAISER TRICIA OSHEA M.D. Performed By: #### C BC, BMP #### [facility] [address] [place] [address] [place] Chloride [Moles/Vol] 105 mmol/L Normal 95-114 [facility] Comment on above: Performed By: #### C BC, BMP #### [facility] [address] [place] [address] [place] CO2 [Moles/Vol] 23.0 mmol/L Normal 22.0-30.0 [facility] Comment on above: Performed By: #### C BC, BMP #### [address] Creatinine [Mass/Vol] 0.66 mg/dL Normal 0.44-1.03 [facility] Comment on above: Performed By: #### C BC, BMP #### [address] Estimated GFR ( Traci > 60 [facility] Comment on above: Result Comment: GFR estimated reference range: According to KDOQI guidelines, <60 ml/min/1.73m2 is sufficient to diagnose a patient with chronic kidney disease. Performed By: #### C BC, BMP #### [address] Estimated GFR (Non- Am > 60 [facility] Comment on above: Performed By: #### C BC, BMP #### [place] [address] [place] Glucose [Mass/Vol] 89 mg/dL Normal 70-100 [facility] Comment on above: Result Comment: [place] Glucose Reference Range is dependent on time and content of last meal. Glucose of more than 200 mg/dL in a nonstressed, ambulatory subject supports the diagnosis of Diabetes Mellitus. ADA recommended reference range Performed By: #### C BC, BMP #### [facility] [address] [place] [address] [place] Potassium [Moles/Vol] 4.0 mmol/L Normal 3.5-5.1 [facility] Comment on above: Performed By: #### C BC, BMP #### [facility] [address] Sodium [Moles/Vol] 137 mmol/L Normal 136-146 [facility] Comment on above: Performed By: #### C BC, BMP #### [facility] [address] Urea nitrogen [Mass/Vol] 10 mg/dL Normal 9-23 [facility] Comment on above: Performed By: #### C KELSEY, BMP #### [facility] [address] Basophils Auto (Bld) [#/Vol] Ordered By: Luis Gutierrez on 05-26-2021 Basophils (Bld) [#/Vol] 0.1 10*3/uL 0.0-0.2 [facility] Basophils/100 WBC Auto (Bld) Ordered By: Luis Gutierrez on 05-26-2021 Basophils/100 WBC (Bld) 0.9 % [facility] Blood hemoglobin measurement (mass/volume)Ordered By: Luis Gutierrez on 05-26-2021 Hemoglobin (Bld) [Mass/Vol] 12.4 g/dL 11.8-15.4 [facility] Blood leukocytes automated c ount (number/volume)Ordered By: Luis Gutierrez on 05-26-2021 WBC (Bld) [#/Vol] 8.8 10*3/uL 4.5-11.0 [facility] COVID-19 FRMCon 05-26-2021 SARS-CoV-2 (COVID-19) RNA ADELITA+probe Ql (Unsp spec) Negative Normal Negative [facility] Comment on above: Order Comment: Healt hcare Worker?: N Result Comment: Testing for SARS-CoV-2 by RT-PCR This test was developed and its performance characteristics determined by [employer]) and validated at the [facility]. This test has not been FDA cleared [...] is terminated or revoked sooner. PERFORMED BY: [place] [address] PATHOLOGIST RETURNED TELEPHONE EQUIPMENT APPRAISER TRICIA OSHEA M.D. Performed By: #### C OVID 19 [facility] #### [address] COVID-19 Positive/NegativeOr dered By: Luis Gutierrez on 05-26-2021 SARS-CoV-2 (COVID-19) N gene ADELITA+probe Ql (Resp) Negative Negative [facility] Comment on above: Testing for SARS-CoV -2 by RT-PCRThis test was developed and its performance characteristics determined by [employer] and validated at the [facility]. This test has not been FDA cleared [...] 05-26-2021 Calcium [Mass/Vol] 9.4 mg/dL Normal 8.2-10.2 [facility] Comment on above: Performed By: #### C A, TSH3, PTH #### [address] Complete Blood Count Auto Di ffon 05-26-2021 Basophils (Bld) [#/Vol] 0.1 10*3/uL Normal 0.0-0.2 [facility] Comment on above: Result Comment: PERF ORMED BY: [place] [address] PATHOLOGIST RETURNED TELEPHONE EQUIPMENT APPRAISER TRICIA OSHEA M.D. Performed By: #### C BC, BMP #### [address] Basophils/100 WBC (Bld) 0.9 % Normal . [facility] Comment on above: Performed By: #### C BC, BMP #### [address] Eosinophils (Bld) [#/Vol] 0.0 10*3/uL Normal 0.0-0.45 [facility] Comment on above: Performed By: #### C BC, BMP #### [address] Eosinophils/100 WBC (Bld) 0.2 % Normal . [facility] Comment on above: Performed By: #### C BC, BMP #### [address] Erythrocyte distribution width (RBC) [Ratio] 16.1 % High 11.9-15.3 [facility] Comment on above: Performed By: #### C BC, BMP #### [address] Hematocrit (Bld) [Volume fraction] 37.5 % Normal 34.0-46.4 [facility] Comment on above: Performed By: #### C BC, BMP #### [address] Hemoglobin (Bld) [Mass/Vol] 12.4 g/dL Normal 11.8-15.4 [facility] Comment on above: Performed By: #### C BC, BMP #### [address] Lymphocytes (Bld) [#/Vol] 1.4 10*3/uL Normal 1.00-4.8 [facility] Comment on above: Performed By: #### C BC, BMP #### [address] Lymphocytes/100 WBC (Bld) 15.8 % Normal . [facility] Comment on above: Performed By: #### C KELSEY, BMP #### [address] MCH (RBC) [Entitic mass] 29.2 pg Normal 24.7-34.3 [facility] Comment on above: Performed By: #### C KELSEY, BMP #### [address] MCV (RBC) [Entitic vol] 88.3 fL Normal 80-100 [facility] Comment on above: Performed By: #### C KELSEY, BMP #### [address] Mean Corpuscular HGB Conc 33.1 g/dL Normal 32.0-35.0 [facility] Comment on above: Performed By: #### C BC, BMP #### [address] Monocytes (Bld) [#/Vol] 0.7 10*3/uL Normal 0.0-0.8 [facility] Comment on above: Performed By: #### C BC, BMP #### [address] Monocytes/100 WBC (Bld) 7.7 % Normal . [facility] Comment on above: Performed By: #### C BC, BMP #### [address] Neutrophils (Bld) [#/Vol] 6.7 10*3/uL Normal 1.8-7.7 [facility] Comment on above: Performed By: #### C KELSEY, BMP #### [facility] [address] Neutrophils/100 WBC (Bld) 75.4 % Normal . [facility] Comment on above: Performed By: #### C KELSEY, BMP #### [facility] [address] Nucleated RBC/100 WBC (Bld) [Ratio] 0.1 % Normal 0-0.5 [facility] Comment on above: Performed By: #### C KELSEY, BMP #### [facility] [address] Platelet mean volume (Bld) [Entitic vol] 8.6 fL Normal 6.3-10.7 [facility] Comment on above: Performed By: #### C KELSEY, BMP #### [facility] [address] Platelets (Bld) [#/Vol] 241 10*3/uL Normal 150-450 [facility] Comment on above: Performed By: #### C KELSEY, BMP #### [facility] [address] RBC (Bld) [#/Vol] 4.24 10*6/uL Normal 3.60-5.00 [facility] Comment on above: Performed By: #### C KELSEY, BMP #### [facility] [address] WBC (Bld) [#/Vol] 8.8 10*3/uL Normal 4.5-11.0 [facility] Comment on above: Performed By: #### C KELSEY, BMP #### [address] Creatinine and Glomerular fi ltration rate.predicted panel (S/P/Bld)Ordered By: Luis Gutierrez on 05-26-2021 Creatinine [Mass/Vol] 0.66 mg/dL 0.44-1.03 [facility] ECG 12 lead ECGon 05-26-2021 ECG [address] [facility] [place] [address] Electrocardiograph Report Signed Patient: Alexandra Cervantes MR#: [id number] 2 : 1950 Acct:[id number] Age/Sex: 71 / F ADM Date: 05/26/21 Loc: PS Room: Type: [facility] CLI Attending Dr: Luis Gutierrez DO Ordering Provider: [...] 8:48:58 AM Referred By: SHANKAR Electronically Signed By:ASHLEY HAINES DO Transcribed By: MUS Signed By Ashley Haines DO 05/27 0848 Normal [facility] Eosinophils Auto (Bld) [#/Vo l]Ordered By: Luis Gutierrez on 05-26-2021 Eosinophils (Bld) [#/Vol] 0.0 10*3/uL 0.0-0.45 [facility] Eosinophils/100 WBC Auto (Bl d)Ordered By: Luis Gutierrez on 05-26-2021 Eosinophils/100 WBC (Bld) 0.2 % [facility] Erythrocyte distribution wid th Auto (RBC) [Ratio]Ordered By: Luis Gutierrez on 05-26-2021 Erythrocyte distribution width (RBC) [Ratio] 16.1 % 11.9-15.3 [facility] Estimated glomerular filtrat ion rate (GFR) non- AmericanOrdered By: Luis Gutierrez on 05-26-2021 GFR/1.73 sq M.predicted among non-blacks MDRD (S/P/Bld) [Vol rate/Area] > 60 mL/Min [facility] Hematocrit Auto (Bld) [Volum e fraction]Ordered By: Luis Gutierrez on 05-26-2021 Hematocrit (Bld) [Volume fraction] 37.5 % 34.0-46.4 [facility] Laboratory - Hematology and Cell countsOrdered By: Luis Gutierrez on 05-26-2021 Nucleated RBC/100 WBC (Bld) [Ratio] 0.1 % 0-0.5 [facility] Lymphocytes Auto (Bld) [#/Vo l]Ordered By: Luis Gutierrez on 05-26-2021 Lymphocytes (Bld) [#/Vol] 1.4 10*3/uL 1.00-4.8 [facility] Lymphocytes/100 WBC Auto (Bl d)Ordered By: Luis Gutierrez on 05-26-2021 Lymphocytes/100 WBC (Bld) 15.8 % [facility] MCH Auto (RBC) [Entitic mass ]Ordered By: Luis Gutierrez on 05-26-2021 MCH (RBC) [Entitic mass] 29.2 pg 24.7-34.3 [facility] MCHC Auto (RBC) [Mass/Vol]Or dered By: Luis Gutierrez on 05-26-2021 MCHC (RBC) [Mass/Vol] 33.1 g/dL 32.0-35.0 [facility] MCV Auto (RBC) [Entitic vol] Ordered By: Luis Gutierrez on 05-26-2021 MCV (RBC) [Entitic vol] 88.3 fL 80-100 [facility] Monocytes Auto (Bld) [#/Vol] Ordered By: Luis Gutierrez on 05-26-2021 Monocytes (Bld) [#/Vol] 0.7 10*3/uL 0.0-0.8 [facility] Monocytes/100 WBC Auto (Bld) Ordered By: Luis Gutierrez on 05-26-2021 Monocytes/100 WBC (Bld) 7.7 % [facility] Neutrophils Auto (Bld) [#/Vo l]Ordered By: Luis Gutierrez on 05-26-2021 Neutrophils (Bld) [#/Vol] 6.7 10*3/uL 1.8-7.7 [facility] Neutrophils/100 WBC Auto (Bl d)Ordered By: Luis Gutierrez on 05-26-2021 Neutrophils/100 WBC (Bld) 75.4 % [facility] No Panel InformationOrdered By: Luis Gutierrez on 05-26-2021 Estimated GFR () > 60 mL/Min [facility] Comment on above: GFR estimated refere nce range: According to KDOQI guidelines, <60 ml/min/1.73m2 is sufficient to diagnose a patient with chronic kidney disease. Pharmacy Creatinine Clearance (Chem N/A [facility] Parathyroid Hormone Intacton 05-26-2021 Parathyroid Hormone Intact 31.2 pg/mL Normal 12-88 [facility] Comment on above: Result Comment: PERF ORMED BY: [place] [address] PATHOLOGIST RETURNED TELEPHONE EQUIPMENT APPRAISER TRICIA OSHEA M.D. Performed By: #### C BC, BMP #### [address] Platelet mean volume Auto (B ld) [Entitic vol]Ordered By: Luis Gutierrez on 05-26-2021 Platelet mean volume (Bld) [Entitic vol] 8.6 fL 6.3-10.7 [facility] Platelets Auto (Bld) [#/Vol] Ordered By: Luis Gutierrez on 05-26-2021 Platelets (Bld) [#/Vol] 241 10*3/uL 150-450 [facility] RBC Auto (Bld) [#/Vol]Ordere d By: Luis Gutierrez on 05-26-2021 RBC (Bld) [#/Vol] 4.24 10*6/uL 3.60-5.00 [facility] Serum or plasma calcium joseph urement (mass/volume)Ordered By: Luis Gutierrez on 05-26-2021 Calcium [Mass/Vol] 9.4 mg/dL 8.2-10.2 [facility] Serum or plasma chloride liv surement (moles/volume)Ordered By: Luis Gutierrez on 05-26-2021 Chloride [Moles/Vol] 105 mmol/L 95-114 [facility] Serum or plasma glucose joseph urement (mass/volume)Ordered By: Luis Gutierrez on 05-26-2021 Glucose [Mass/Vol] 89 mg/dL 70-100 [facility] Comment on above: ADA recommended refe rence rangeRandom Glucose Reference Range is dependent on time and content of last meal. Glucose of more than 200 mg/dL in a nonstressed, ambulatory subject supports the diagnosis of Diabetes Mellitus. Serum or plasma intact parat hyroid hormone measurement (mass/volume)Ordered By: Luis Gutierrez on 05-26-2021 Parathyrin.intact [Mass/Vol] 31.2 pg/mL [facility] Serum or plasma potassium me asurement (moles/volume)Ordered By: Luis Gutierrez on 05-26-2021 Potassium [Moles/Vol] 4.0 mmol/L 3.5-5.1 [facility] Serum or plasma sodium measu rement (moles/volume)Ordered By: Luis Gutierrez on 05-26-2021 Sodium [Moles/Vol] 137 mmol/L 136-146 [facility] Serum or plasma total carbon dioxide measurement (moles/volume)Ordered By: Luis Gutierrez on 05-26-2021 CO2 [Moles/Vol] 23.0 mmol/L 22.0-30.0 [facility] Serum or plasma urea nitroge n measurement (mass/volume)Ordered By: Luis Gutierrez on 05-26-2021 Urea nitrogen [Mass/Vol] 10 mg/dL - [facility] TSH DL <= 0.005 mIU/L QnOrde red By: Luis Gutierrez on 05-26-2021 TSH Qn 0.86 m[IU]/L 0.45-5.33 [facility] Thyroid Stimulating Hormoneo n 05-26-2021 TSH Qn 0.86 m[IU]/L Normal 0.45-5.33 [facility] Comment on above: Performed By: #### C A, TSH3, PTH #### [address] MG MAMM SCREEN 3D GEORGES CADon 05-22-2021 MG MAMM SCREEN 3D GEORGES CAD Patient: ALEXANDRA CERVANTES L. Exam Date: 05/22/2021 : 1950 Gender:F Ordering : DR DANYELL MORALES M.D. Admission #: [id number] Family : Order #: [id number] CLICK HERE TO VIEW EXAM RADIOLOGY REPORT [...] No Treatments None Family Cancers None LOCATION: [facility] BREAST COMPOSITION: Scattered areas fibroglandular density. FINDINGS: [...] on 05/22/2021 at 12:06 Normal [facility] CT Chest w/Contraston 2021 CT Chest w/Contrast Please see CT neck report dated: 05/17/2021. Report reported and signed by Valente Lion on 05/22/2021 1528 Normal [facility] CT Soft Tissue Neck w/ Contr ast*on [...] by Valente Lion on 05/22/2021 1528 Normal [facility] Specialist Gastroenterology Office/Clin ic Noteon 05-11-2021 Gastroenterology [...] after patient or guardian consented to allow [employer] to record this visit. JASS waste specialist and provider reviewed before signing. JASS: Lillie Santiago. Follow-up With When Contact Information JANINA ALARCON, LENORE Farooq, MED Within 6 months [facility] [address] [place] [address]- Additional Instructions: Problem List/Past Medical History Ongoing [...] 1 tab(s), Oral, TID levothyroxine, Daily NuLYTELY [place] oral powder for reconstitution, See Instructions omeprazole, [...] influenza virus vaccine, inactivated 11/2020 Recorded Normal [facility] Comment on above: Result Comment: Elec tronically Signed By: Capri ROA MD\.br\Date and Time Signed: 05/11/21 13:57 EDT\.br\Electronically Co-Signed By: Lillie Santiago\.br\Date and Time Co-Signed: 05/10/21 13:28 EDT Ambulatory Visit Summaryon 0 05-10-2021 Ambulatory Visit Summary ALEXANDRA CERVANTES Karthik :1950 Visit Date:05/10/2021 Ambulatory Visit Instructions Your Diagnosis Chronic pancolonic ulcerative colitis Your Care Team Attending Physician - JANINA ALARCON, Capri Primary Care Physician - DANYELL MORALES MD This Is Your Medications List sulfasalazine (sulfasalazine 500 mg Tab) Contact prescribing physician if questions or concerns alprazolam baclofen calcium citrate (calcium (as calcium citrate) 200 mg oral tablet) escitalopram folic acid (Folate 1 mg Tab) glucosamine (glucosamine 500 mg oral tablet) levothyroxine omeprazole polyethylene glycol 3350 with electrolytes (NuLYTELY [place] oral powder for reconstitution) simvastatin Procedures Performed Colonoscopy, flexible; with biopsy, single or multiple (02/16/2020), Colonoscopy. Discharge Vitals Blood Pressure 180/90 Height 150.0 cm Height 150 cm Weight 71.0 kg Weight 71 kg BMI 31.56 What to do next You Need to Schedule the Following Appointments Follow Up with JANINA ALARCON, LENORE Farooq, BEVERLY When: Within 6 months Where: [facility] [address] [place] [address]- Medications What How Much When Why Instructions Changed sulfasalazine (sulfasalazine 500 mg Tab) 2 Tablets By Mouth 3 times a day Pickup at [id number] Unchanged alprazolam By Mouth Contact prescribing physician [...] Unchanged polyethylene glycol 3350 with electrolytes (NuLYTELY [place] oral powder for reconstitution) See instructions PER PHYS INSRTUCTIONS Contact prescribing physician if questions or concerns Unchanged simvastatin By Mouth Contact prescribing physician if questions or concerns Pharmacy Information [id number]: [address], [place] [id number] [phone] Allergies No Known Allergies Problems Ongoing - Any problem that you are currently receiving treatment for. Chronic pancolonic ulcerative colitis Normal [facility] [place] esophaguson 05-04-[address] [facility] [address] [place] [address] [place] [address] Fluoroscopy Report Signed Patient: Alexandra Cervantes MR#: [id number] 2 : 1950 Acct:[id number] Age/Sex: 71 / F ADM Date: 05/04/21 Loc: XD Room: Type: [facility] Attending Dr: Cy Sears MD Ordering Provider: Cy Sears MD Date of Service: 05/04/21 FL/FL esophagus: K22.9 Copies to: Cy Sears MD [...] Kitchen Jr., M.D.05/04/2021 3:37 PM Dictation Location: [place] [address] Transcribed By: [facility] 05/04/21 153 Dictated By: Selvin Kitchen Jr, MD 05/04/21 153 Signed By: 05/04/21 1537 [facility] Lab Reportson 04-26-2021 Lab Reports [id number]:127 Normal [facility] CBC AUTO DIFFon 04-20-2021 BASO # 0.1 103/ul Normal 0.0-0.1 [facility] Comment on above: Performed By: #### C BC #### [facility] [address] [place] [address] Dr. Scooby Irvin Basophils/100 WBC (Bld) 0.4 % Normal 0.2-2.0 [facility] Comment on above: Performed By: #### C BC #### [facility] [address] [place] [address] Dr. Scooby Irvin EO # 0.0 103/ul Normal 0.0-0.7 [facility] Comment on above: Performed By: #### C BC #### [facility] [address] [place] [address] Dr. Scooby Irvin Eosinophils/100 WBC (Bld) 0.2 % Critically low 0.9-7.0 [facility] Comment on above: Performed By: #### C BC #### [facility] [address] [place] [address] Dr. Scooby Irvin Erythrocyte distribution width (RBC) [Ratio] 16.7 % Critically high 11.0-15.0 [facility] Comment on above: Performed By: #### C BC #### [facility] [address] [place] [address] Dr. Scooby Irvin Hematocrit (Bld) [Volume fraction] 37.6 % Normal 36.0-48.0 [facility] Comment on above: Performed By: #### C BC #### [facility] [address] [place] [address] Dr. Scooby Irvin Hemoglobin (Bld) [Mass/Vol] 12.0 g/dL Normal 12.0-16.0 [facility] Comment on above: Performed By: #### C BC #### [facility] [address] [place] [address] Dr. Scooby Irvin IG # 0.02 10e3/ul Normal 0.00-0.03 [facility] Comment on above: Performed By: #### C BC #### [facility] [address] [place] [address] Dr. Scooby Irvin IG % 0.2 % Normal 0.0-0.5 [facility] Comment on above: Performed By: #### C BC #### [facility] [address] [place] [address] Dr. Scooby Irvin LYMPH # 1.6 103/ul Normal 1.2-3.8 [facility] Comment on above: Performed By: #### C BC #### [facility] [address] [place] [address] Dr. Scooby Irvin Lymphocytes/100 WBC (Bld) 13.6 % Critically low 20.5-60.0 [facility] Comment on above: Performed By: #### C BC #### [facility] [address] [place] [address] Dr. Scooby Irvin MANUAL DIFF REQ NO Normal [facility] Comment on above: Performed By: #### C BC #### [facility] [address] [place] [address] Dr. Scooby Irvin MCH (RBC) [Entitic mass] 28.6 pg Normal 26.7-34.0 [facility] Comment on above: Performed By: #### C BC #### [facility] [address] [place] [address] Dr. Scooby Irvin MCHC (RBC) [Mass/Vol] 31.9 g/dL Normal 29.9-35.2 [facility] Comment on above: Performed By: #### C BC #### [facility] [address] [place] [address] Dr. Scooby Irvin MCV (RBC) [Entitic vol] 89.5 fL Normal 81.0-99.0 [facility] Comment on above: Performed By: #### C BC #### [facility] [address] [place] [address] Dr. Scooby Irvin MONO # 0.7 103/ul Normal 0.3-0.8 [facility] Comment on above: Performed By: #### C BC #### [facility] [address] [place] [address] Dr. Scooby Irvin Monocytes/100 WBC (Bld) 5.8 % Normal 1.7-12.0 [facility] Comment on above: Performed By: #### C BC #### [facility] [address] [place] [address] Dr. Scooby Irvin NEUT # 9.1 103/ul Critically high 1.4-6.5 [facility] Comment on above: Performed By: #### C BC #### [facility] [address] [address] [address] Scooby Irvin Neutrophils/100 WBC (Bld) 79.8 % Critically high 43.0-75.0 [facility] Comment on above: Performed By: #### C BC #### [facility] [address] [place] [address] [address] Scooby Irvin Platelet mean volume (Bld) [Entitic vol] 10.2 fL Normal 9.5-13.5 [facility] Comment on above: Performed By: #### C BC #### [facility] [address] [place] [address] Dr. Scooby Irvin PLT 217 103/ul Normal 150-450 [facility] Comment on above: Performed By: #### C BC #### [facility] [address] [place] [address] Dr. Scooby Irvin RBC 4.20 106/ul Normal 4.20-5.40 [facility] Comment on above: Performed By: #### C BC #### [facility] [address] [place] [address] [address] Scooby Irvin WBC 11.4 103/ul Critically high 4.0-11.0 [facility] Comment on above: Performed By: #### C BC #### [facility] [address] [place] [address] Dr. Scooby Irvin PROF 14(COMP METB)on 022 Albumin [Mass/Vol] 3.9 g/dL Normal 3.5-5.0 [facility] Comment on above: Performed By: #### C MP #### [facility] [address] [place] [address] Dr. Scooby Irvin Albumin/Globulin [Mass ratio] 1.1 {ratio} Normal [facility] Comment on above: Performed By: #### C MP #### [facility] [address] [address] [address] Scooby Irvin ALP [Catalytic activity/Vol] 72 U/L Normal 38-126 [facility] Comment on above: Performed By: #### C MP #### [facility] [address] [place] [address] [address] Scooby Irvin ALT [Catalytic activity/Vol] 23 U/L Normal 9-52 [facility] Comment on above: Performed By: #### C MP #### [facility] [address] [place] [address] [address] Scooby Irvin Anion gap [Moles/Vol] 10.2 mmol/L Normal [facility] Comment on above: Performed By: #### C MP #### [facility] [address] [place] [address] [address] Scooby Irvin AST [Catalytic activity/Vol] 20 U/L Normal 14-36 [facility] Comment on above: Performed By: #### C MP #### [facility] [address] [place] [address] Dr. Scooby Irvin Bilirubin [Mass/Vol] 0.5 mg/dL Normal 0.2-1.3 [facility] Comment on above: Performed By: #### C MP #### [facility] [address] [address] [address] Scooby Irvin Calcium [Mass/Vol] 8.8 mg/dL Normal 8.4-10.2 [facility] Comment on above: Performed By: #### C MP #### [facility] [address] [place] [address] Dr. Scooby Irvin Chloride [Moles/Vol] 104 mmol/L Normal 98-107 [facility] Comment on above: Performed By: #### C MP #### [facility] [address] [address] [address] Scooby Irvin CO2 [Moles/Vol] 28.0 mmol/L Normal 22.0-30.0 [facility] Comment on above: Performed By: #### C MP #### [facility] [address] [address] [address] Scooby Irvin Creatinine [Mass/Vol] 0.87 mg/dL Normal 0.52-1.04 [facility] Comment on above: Performed By: #### C MP #### [facility] [address] [address] [address] Scooby Irvin EGFR-AF ROMANIAN >60 Normal >=60 [facility] Comment on above: Performed By: #### C MP #### [facility] [address] [place] [address] [address] Scooby Irvin EGFR-NON AF ROMANIAN >60 Normal >=60 [facility] Comment on above: Performed By: #### C MP #### [facility] [address] [address] [address] Scooby Irvin Globulin (S) [Mass/Vol] 3.5 g/dL Normal [facility] Comment on above: Performed By: #### C MP #### [facility] [address] [address] [address] Scooby Irvin Glucose [Mass/Vol] 93 mg/dL Normal 74-106 [facility] Comment on above: Performed By: #### C MP #### [facility] [address] [address] [address] Scooby Irvin Potassium [Moles/Vol] 4.2 mmol/L Normal 3.4-5.0 [facility] Comment on above: Performed By: #### C MP #### [facility] [address] [place] [address] Dr. Scooby Irvin Protein [Mass/Vol] 7.4 g/dL Normal 6.1-8.2 [facility] Comment on above: Performed By: #### C MP #### [facility] [address] [address] [address] Scooby Irvin Sodium [Moles/Vol] 138 mmol/L Normal 137-145 [facility] Comment on above: Performed By: #### C MP #### [facility] [address] [place] [address] Dr. Scooby Irvin Urea nitrogen [Mass/Vol] 15.0 mg/dL Normal 7.0-17.0 [facility] Comment on above: Performed By: #### C MP #### [facility] [address] [place] [address] Dr. Scooby Irvin Urea nitrogen/Creatinine [Mass ratio] 17.2 mg/mg Normal [facility] Comment on above: Performed By: #### C #### [facility] [address] [place], [place] [address] Dr[address] Scooby Irvin PET CT SKULL BASE [...] by: VALENTE BARRETO Date: 2021-04-07 08:23 Normal [facility] LUNG CANCER SCREENINGon 0 03-23-2021 CT [...] by: VALENTE BARRETO Date: 2021-03-23 09:57 Normal [facility] CBC AUTO DIFFon 03-09-2021 BASO # 0.1 103/ul Normal 0.0-0.1 [facility] Comment on above: Performed By: #### C BC #### [facility] [address] [address] [address] Scooby Irvin Basophils/100 WBC (Bld) 1.2 % Normal 0.2-2.0 [facility] Comment on above: Performed By: #### C BC #### [facility] [address] [address] [address] Scooby Irvin EO # 0.1 103/ul Normal 0.0-0.7 [facility] Comment on above: Performed By: #### C BC #### [facility] [address] [address] [address] Scooby Irvin Eosinophils/100 WBC (Bld) 1.4 % Normal 0.9-7.0 [facility] Comment on above: Performed By: #### C BC #### [facility] [address] [place] [address] Dr. Scooby Irvin Erythrocyte distribution width (RBC) [Ratio] 16.3 % Critically high 11.0-15.0 [facility] Comment on above: Performed By: #### C BC #### [facility] [address] [place] [address] Dr. Scoboy Irvin Hematocrit (Bld) [Volume fraction] 39.6 % Normal 36.0-48.0 [facility] Comment on above: Performed By: #### C BC #### [facility] [address] [place] [address] Dr. Scooby Irvin Hemoglobin (Bld) [Mass/Vol] 12.6 g/dL Normal 12.0-16.0 [facility] Comment on above: Performed By: #### C BC #### [facility] [address] [place] [address] Dr. Scooby Irvin IG # 0.01 10e3/ul Normal 0.00-0.03 [facility] Comment on above: Performed By: #### C BC #### [facility] [address] [place] [address] Dr. Scooby Irvin IG % 0.2 % Normal 0.0-0.5 [facility] Comment on above: Performed By: #### C BC #### [facility] [address] [place] [address] Dr. Scooby Irvin LYMPH # 1.6 103/ul Normal 1.2-3.8 [facility] Comment on above: Performed By: #### C BC #### [facility] [address] [place] [address] Dr. Scooby Irvin Lymphocytes/100 WBC (Bld) 30.7 % Normal 20.5-60.0 [facility] Comment on above: Performed By: #### C BC #### [facility] [address] [place] [address] Dr. Scooby Irvin MANUAL DIFF REQ NO Normal [facility] Comment on above: Performed By: #### C BC #### [facility] [address] [place] [address] Dr. Scooby Irvin MCH (RBC) [Entitic mass] 28.4 pg Normal 26.7-34.0 [facility] Comment on above: Performed By: #### C BC #### [facility] [address] [place] [address] Dr. Scooby Irvin MCHC (RBC) [Mass/Vol] 31.8 g/dL Normal 29.9-35.2 [facility] Comment on above: Performed By: #### C BC #### [facility] [address] [place] [address] Dr. Scooby Irvin MCV (RBC) [Entitic vol] 89.2 fL Normal 81.0-99.0 [facility] Comment on above: Performed By: #### C BC #### [facility] [address] [place] [address] Dr. Scooby Irvin MONO # 0.6 103/ul Normal 0.3-0.8 [facility] Comment on above: Performed By: #### C BC #### [facility] [address] [place] [address] Dr. Scooby Irvin Monocytes/100 WBC (Bld) 11.5 % Normal 1.7-12.0 [facility] Comment on above: Performed By: #### C BC #### [facility] [address] [place] [address] Dr. Scooby Irvin NEUT # 2.8 103/ul Normal 1.4-6.5 [facility] Comment on above: Performed By: #### C BC #### [facility] [address] [place] [address] Dr. Scooby Irvin Neutrophils/100 WBC (Bld) 55.0 % Normal 43.0-75.0 [facility] Comment on above: Performed By: #### C BC #### [facility] [address] [place] [address] Dr. Scooby Irvin Platelet mean volume (Bld) [Entitic vol] 10.3 fL Normal 9.5-13.5 [facility] Comment on above: Performed By: #### C BC #### [facility] [address] [place] [address] Dr. Scooby Irvin PLT 208 103/ul Normal 150-450 [facility] Comment on above: Performed By: #### C BC #### [facility] [address] [address] [address] Scooby Irvin RBC 4.44 106/ul Normal 4.20-5.40 [facility] Comment on above: Performed By: #### C BC #### [facility] [address] [address] [address] Scooby Irvin WBC 5.1 103/ul Normal 4.0-11.0 [facility] Comment on above: Performed By: #### C BC #### [facility] [address] [place] [address] Dr. Scooby Irvin FREE T4on 03-09-2021 Free T4 [Mass/Vol] 1.15 ng/dL Normal 0.78-2.19 [facility] Comment on above: Performed By: #### C BC #### [facility] [address] [place] [address] Dr. Scooby Irvin LIPID PROFILEon 03-09-2021 CHOL-HDL RATIO NORM SEE BELOW Normal [facility] Comment on above: Result Comment: 3.3 - 4.4 LOW RISK 4.4 - 7.1 AVERAGE RISK 7.1 - 11.0 MODERATE RISK >11.0 HIGH RISK Performed By: #### L IPID, CMP, TSH #### [facility] [address] [place] [address] Dr. Scooby Irvin Cholesterol [Mass/Vol] 227 mg/dL Critically high <=200 [facility] Comment on above: Performed By: #### L IPID, CMP, TSH #### [facility] [address] [place] [address] Dr. Scooby Irvin Cholesterol in HDL [Mass/Vol] 65 mg/dL Normal [facility] Comment on above: Performed By: #### L IPID, CMP, TSH #### [facility] [address] [place] [address] Dr. Scooby Irvin Cholesterol in LDL [Mass/Vol] 142.6 mg/dL Normal [facility] Comment on above: Performed By: #### L IPID, CMP, TSH #### [facility] [address] [address] [address] Scooby Irvin Cholesterol.total/Rachel sterol in HDL [Mass ratio] 3.5 {ratio} Normal [facility] Comment on above: Performed By: #### L IPID, CMP, TSH #### [facility] [address] [address] [address] Scooby Irvin HDL NORMAL > or = 60 mg/dl - LOW CARDIOVASCULAR RISK <40 mg/dl - HIGH CARDIOVASCULAR RISK Normal [facility] Comment on above: Performed By: #### L IPID, CMP, TSH #### [facility] [address] [place] [address] Dr. Scooby Irvin LDL CALC NORMAL SEE BELOW Normal [facility] Comment on above: Result Comment: <100 mg/dl OPTIMAL 100 - 129 mg/dl NEAR OR ABOVE OPTIMAL 130 - 159 mg/dl BORDERLINE HIGH 160 - 189 mg/dl HIGH >190 mg/dl VERY HIGH Performed By: #### L IPID, CMP, TSH #### [facility] [address] [address] [address] Scooby Irvin Triglyceride [Mass/Vol] 97 mg/dL Normal <=150 [facility] Comment on above: Performed By: #### L IPID, CMP, TSH #### [facility] [address] [place] [address] Dr. Scooby Irvin VLDL CALC 19.4 mg/dL Normal [facility] Comment on above: Performed By: #### L IPID, CMP, TSH #### [facility] [address] [place] [address] Dr. Scooby Irvin PROF 14(COMP METB)on 022 Albumin [Mass/Vol] 4.0 g/dL Normal 3.5-5.0 [facility] Comment on above: Performed By: #### L IPID, CMP, TSH #### [facility] [address] [place] [address] Dr. Scooby Irvin Albumin/Globulin [Mass ratio] 1.1 {ratio} Normal [facility] Comment on above: Performed By: #### L IPID, CMP, TSH #### [facility] [address] [address] [address] Scooby Irvin ALP [Catalytic activity/Vol] 80 U/L Normal 38-126 [facility] Comment on above: Performed By: #### L IPID, CMP, TSH #### [facility] [address] [address] Dr. Scooby Irvin ALT [Catalytic activity/Vol] 35 U/L Normal 9-52 [facility] Comment on above: Performed By: #### L IPID, CMP, TSH #### [facility] [address] [address] [address] Scooby Irvin Anion gap [Moles/Vol] 11.8 mmol/L Normal [facility] Comment on above: Performed By: #### L IPID, CMP, TSH #### [facility] [address] [address] [address] Scooby Irvin AST [Catalytic activity/Vol] 24 U/L Normal 14-36 [facility] Comment on above: Performed By: #### L IPID, CMP, TSH #### [facility] [address] [address] [address] Scooby Irvin Bilirubin [Mass/Vol] 0.5 mg/dL Normal 0.2-1.3 [facility] Comment on above: Performed By: #### L IPID, CMP, TSH #### [facility] [address] [address] [address] Scooby Irvin Calcium [Mass/Vol] 9.3 mg/dL Normal 8.4-10.2 [facility] Comment on above: Performed By: #### L IPID, CMP, TSH #### [facility] [address] [address] [address] Scooby Irvin Chloride [Moles/Vol] 105 mmol/L Normal 98-107 [facility] Comment on above: Performed By: #### L IPID, CMP, TSH #### [facility] [address] [address] [address] Scooby Irvin CO2 [Moles/Vol] 26.2 mmol/L Normal 22.0-30.0 [facility] Comment on above: Performed By: #### L IPID, CMP, TSH #### [facility] [address] [address] [address] Scooby Irvin Creatinine [Mass/Vol] 0.83 mg/dL Normal 0.52-1.04 [facility] Comment on above: Performed By: #### L IPID, CMP, TSH #### [facility] [address] [address] [address] Scooby Irvin EGFR-AF ROMANIAN >60 Normal >=60 [facility] Comment on above: Performed By: #### L IPID, CMP, TSH #### [facility] [address] [address] [address] Scooby Irvin EGFR-NON AF ROMANIAN >60 Normal >=60 [facility] Comment on above: Performed By: #### L IPID, CMP, TSH #### [facility] [address] [address] [address] Scooby Irvin Globulin (S) [Mass/Vol] 3.8 g/dL Normal [facility] Comment on above: Performed By: #### L IPID, CMP, TSH #### [facility] [address] [address] [address] Scooby Irvin Glucose [Mass/Vol] 112 mg/dL Critically high 74-106 [facility] Comment on above: Performed By: #### L IPID, CMP, TSH #### [facility] [address] [address] [address] Scooby Irvin Potassium [Moles/Vol] 4.0 mmol/L Normal 3.4-5.0 [facility] Comment on above: Performed By: #### L IPID, CMP, TSH #### [facility] [address] [address] [address] Scooby Irvin Protein [Mass/Vol] 7.8 g/dL Normal 6.1-8.2 [facility] Comment on above: Performed By: #### L IPID, CMP, TSH #### [facility] [address] [address] [address] Scooby Irvin Sodium [Moles/Vol] 139 mmol/L Normal 137-145 [facility] Comment on above: Performed By: #### L IPID, CMP, TSH #### [facility] [address] [address] [address] Scooby Irvin Urea nitrogen [Mass/Vol] 15.0 mg/dL Normal 7.0-17.0 [facility] Comment on above: Performed By: #### L IPID, CMP, TSH #### [facility] [address] [address] [address] Scooby Irvin Urea nitrogen/Creatinine [Mass ratio] 18.1 mg/mg Normal [facility] Comment on above: Performed By: #### L IPID, CMP, TSH #### [facility] [address] [address] [address] Scooby Irvin TSHon 03-09-2021 TSH 2.761 uIU/mL Normal 0.470-4.680 [facility] Comment on above: Performed By: #### L IPID, CMP, TSH #### [facility] [address] [address] [address] Scooby Irvin TSH RANGE SEE BELOW Normal [facility] Comment on above: Result Comment: <0.3 4 UIU/ml HYPERTHYROID 0.34-5.60 UIU/ml EUTHYROID >5.60 UIU/ml HYPOTHYROID Performed By: #### L IPID, CMP, TSH #### [facility] [address] [address] [address] Scooby Irvin Social History Date Type Detail Facility Start: 05-26-2021 Tobacco smoking stat NHIS Smoker (finding) [facility] Start: 05-10-2021 End: 11-08-2021 Tobacco smoking status Heavy tobacco smoker (finding) [facility] Start: 1950 Sex Assigned At Female [facility] Work Phone: Sex Assigned At Female [facility] Vital Signs Date Time Vital Sign Value Performing Clinician Facility 09-04-2022 09:00-0400 Body height 140.97 cm Danyell Morales Other [facility] Other 09-04-2022 09:00-0400 Body mass index (BMI) [Ratio] 36.74 kg/m2 Danyell Morales Other [facility] Other 09-04-2022 09:00-0400 Body weight 73.03 kg Danyell Morales Other [facility] Other 09-04-2022 09:00-0400 Diastolic blood pressure 78 mm[Hg] Danyell Morales Other [facility] Other 09-04-2022 09:00-0400 SaO2% (BldA) [Mass fraction] 97 % Danyell Morales Other [facility] Other 09-04-2022 09:00-0400 Systolic blood pressure 132 mm[Hg] Danyell Morales Other [facility] Other 03-01-2022 10:30-0500 Body height 140.97 cm Danyell Morales Other [facility] Other 03-01-2022 10:30-0500 Body mass index (BMI) [Ratio] 36.06 kg/m2 Danyell Morales Other [facility] Other 03-01-2022 10:30-0500 Body weight 71.67 kg Danyell Morales Other [facility] Other 03-01-2022 10:30-0500 Diastolic blood pressure 84 mm[Hg] Danyell Morales Other [facility] Other 03-01-2022 10:30-0500 SaO2% (BldA) [Mass fraction] 98 % Danyell Morales Other [facility] Other 03-01-2022 10:30-0500 Systolic blood pressure 132 mm[Hg] Danyell Morales Other [facility] Other 11-08-2021 10:17-0400 Diastolic blood pressure 74 mm[Hg] Farooq SALAM [facility] 11-08-2021 10:17-0400 Mean blood pressure 99 mm[Hg] Farooq SALAM [facility] 11-08-2021 10:17-0400 Systolic blood pressure 148 mm[Hg] Farooq SALAM [facility] 11-08-2021 10:15-0400 Blood Pressure Location Farooq SALAM [facility] 11-08-2021 10:15-0400 Diastolic blood pressure 95 mm[Hg] Farooq SALAM [facility] 11-08-2021 10:15-0400 Heart rate 78 /min Farooq SALAM [facility] 11-08-2021 10:15-0400 Respiratory rate 16 /min Farooq SALAM [facility] 11-08-2021 10:15-0400 Systolic blood pressure 159 mm[Hg] Farooq SALAM [facility] 05-10-2021 11:11-0400 Diastolic blood pressure 90 mm[Hg] Farooq SALAM [facility] 05-10-2021 11:11-0400 Systolic blood pressure 180 mm[Hg] Capri ROA [facility] Functional Status Date Assessment Result Facility 11-08-2021 [...] continue to monitor through routine blood work [facility] Other 08-10-2023 Evaluation note* Encounter Date Diagnosis Assessment Notes Treatment Notes Treatment Clinical Notes Sep, Right foot pain (ICD-10 - M79.671) [facility] Other 07-25-2023 Evaluation note* Encounter Date Diagnosis [...] - E03.9) Chronic problem due for labs. [facility] Other 01-19-2023 Evaluation note* Encounter Date Diagnosis [...] - E78.5) Due for labs in summer. [facility] Other 12-08-2022 NoteCONSULTATION PROCEDURE DATE: 01/18/2022 PREOPERATIVE [...] will be followed up in the office.[id number] NoteCONSULTATION CONSULTATION DATE: 01/18/2022 HISTORY OF PRESENT [...] in three months' time, unless otherwise indicated.[id number] Evaluation + Plan note Diagnostic Tests Pending * CBC w/ Auto Diff 11/08/21 * Comprehensive Metabolic Panel 11/08/21 [facility] 09-08-2022 NoteCONSULTATION PROCEDURE DATE: 11/16/2021 [...] will be followed up in the office.[facility] 10-19-2021 NoteCONSULTATION CONSULTATION DATE: 10/19/2021 This is [...] in three months' time unless otherwise indicated.[id number] NoteCONSULTATION CONSULTATION DATE: 09/06/2021 HISTORY OF PRESENT [...] 8/10. She has been following up with [facility] and had a benign fibroid tumor [...] procedure, and patient agrees to move forward.[id number] NoteCONSULTATION PAIN MANAGEMENT CONSULTATION HISTORY: This is [...] of care and will call when needed. [facility] Signed and Approved by: ROBERTO MCNALLY . 04/27/2021 12:41:00The [id number] Hospital Discharge instructions Follow Up Care 01/24/2021 10:04:31 With:JANINA ALARCON, LENORE Farooq, [facility] Address: [facility] [address] [place] [address]- When:6 months [facility] Evaluation + Plan note Future Appointments Appointment Date:11/08/2021 10:15:00 AM Scheduled Provider:Capri ROA MD Location:[facility] Appointment Type:[facility] Follow Up Future Scheduled Tests Laboratory* CBC w/ Indices 07/25/20 * Comprehensive Metabolic Panel 07/25/20 [facility] Evaluation noteNo assessment information available [facility] Work Phone: [facility] general Narrative - Reported* Type Description Date Medical History GERD Medical History Hypothyroid Medical History Depression Surgical History Appendectomy Surgical History Tubal Ligation Surgical History Right carpal tunnel Surgical History Right finger Surgical History 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 Hospitalization History See past surgical hx [facility] Other Hospital course Narrative No data available for this section [facility] Hospital Discharge instructions No data available for this section [facility] Progress note No data available for this section [facility] Chief Complaint and Reason for Visit Chief Complaint Esophageal Mass Chief Complaint Esophageal Mass Right Substernal Thyroid Goiter Advance Directives Advance Directive Response Recorded Date/ Time Advance Directives No May 03, 2 022 9:14am Summary Purpose Family History Relationship Condition Age at Onset Recorded Date/T michelle father Diabetes mellitus Unknown Cerebrovascular accident (CVA) Unknown Reason for Referral Reason *FU 09/27 R foot p ain. Had Xray Diagnosis 1 Right foot pain (M79 .671) Referral Organization [facility] Referring Provider First Name Danyell Referring Provider Last Name Robin Referring Provider Specialty Family [facility] Referred Organization [facility] Referred Provider Seymour Johnson Referred Address [address] [place], [place],[address] Referred Provider Specialty Podiatry - S urgical Chiropody Referral Priority Routine General Notes Traci Lema 03:01:16 PM >received today, attachments made, notes locked, referral faxed Additional Source Comments Care Teams (unrecognized sec tion and content) Team Status: Inactive Member Role Status Dates Cy Sears MD Attending Provider Active Danyell Moraels MD Primary Care Provider Active Team Status: [...] section and content) DATE CREATED AUTHOR 05/23/2021 [facility] dical Specialist DATE CREATED AUTHOR AUTHOR'S ORGANIZ ATION 11/14/2021 [facility] DATE CREATED AUTHOR AUTHOR'S ORGANIZ ATION 01/23/2022 [facility] DATE CREATED AUTHOR AUTHOR'S ORGANIZ ATION 03/17/2022 [facility] REASON FOR VISIT (unrecogniz ed section and [...] BE BASED ON THE PRIMARY CLINICAL RECORDS. [facility]. provides no warranty or guarantee of the accuracy or completeness of information in this document.
[2023-08-19 08:26] LABS: Basophils Absolute Auto 0.1 10^3/uL (0.0-0.1); Basophils Percent Auto 0.5 % (0.2-2.0); Eosinophils Percent Auto 0.2 % (0.9-7.0); Hematocrit 44.3 % (36.0-48.0); Hemoglobin 14.6 g/dL (12.0-16.0); Immature Granulocytes Abs Auto 0.05 10^3/uL (0.00-0.03); Immature Granulocytes Pct Auto 0.4 % (0.0-0.5); Lymphocytes Absolute Auto 1.2 10^3/uL (1.2-3.8); Mean Corpuscular Hemoglobin 29.8 pg (26.7-34.0); Mean Corpuscular Volume 90.4 fL (81.0-99.0); Mean Platelet Volume 9.6 fL (9.5-13.5); Monocytes Absolute Auto 0.8 10^3/uL (0.3-0.8); Monocytes Percent Auto 6.3 % (1.7-12.0); Neutrophils Absolute Auto 10.8 10^3/uL (1.4-6.5); Neutrophils Percent Auto 83.6 % (43.0-75.0); Platelet Count 241 10^3/uL (150-450); Red Cell Distribution Width 13.1 % (11.0-15.0); White Blood Count 12.9 10^3/uL (4.0-11.0)
[2023-08-19 08:35] LABS: Anion Gap 11.8; Carbon Dioxide 27.3 mmol/L (21.0-32.0); Chloride 103 mmol/L (98-107); Glucose 120 mg/dL (74-106); Potassium 4.1 mmol/L (3.5-5.1); Sodium 138 mmol/L (136-145)
[2023-08-19 08:36] LABS: Alanine Aminotransferase 28 U/L (14-59); Albumin Level 3.8 g/dL (3.4-5.0); Alkaline Phosphatase 84 U/L (46-116); Aspartate Amino Transferase 18 U/L (15-37); BUN Creatinine Ratio 17.3; Bilirubin Total 0.7 mg/dL (0.2-1.0); Estimated GFR (African America >60 (>=60); Estimated GFR (Non-African Ame >60 (>=60); Globulin 3.9 g/dL; Total Protein 7.7 g/dL (6.4-8.2)
[2023-08-19 08:37] LABS: Chol HDL Ratio 3.2; Cholesterol 196 mg/dL (<=200); HDL Cholesterol 61 mg/dL (40-60); TSH W/ REFLEX FT4 1.476 uIU/mL (0.358-3.740); Triglycerides 119 mg/dL (<=150); VLDL CHOLESTEROL 23.8 mg/dL
== END 2023-08-19 07:50 | disposition home or self-care (01) ==
LOC: LAB 07:49
PROVIDERS: PCP Family Medicine; Visit Provider Family Medicine
DX: E03.9 Hypothyroidism, unspecified (principal); E78.5 Hyperlipidemia, unspecified
CPT/HCPCS: 36415; 80053; 80061; 84443; 85025

== ENCOUNTER 2023-09-03 08:14 | Outpatient (OUT) | payer MEDICARE, OTHER, SELFPAY ==
--- NOTE | 2023-09-03 08:17 | MR_ITS ---
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 TECHNIQUE: A complete multi-planar MRI was performed. FINDINGS:a MEDIAL COMPARTMENT MEDIAL MENISCUS: Prominent intrasubstance degeneration throughout the disc with possible undersurface tear involving anterior junction. CARTILAGE: Moderate thinning with focal defects suspected along the tibial plateau. BONES: Several small areas of subtle subchondral edema within medial tibial plateau. MCL AND MEDIAL CAPSULE: Grade I sprain of the medial collateral ligament. LATERAL COMPARTMENT LATERAL MENISCUS: No visible tear or significant degeneration. CARTILAGE: No visible defect. BONES: Several small areas of subchondral edema adjacent the tibial plateau without appreciable overlying cartilage defect. Edema within lateral aspect of the lateral femoral condyle near collateral ligament attachment. LCL/POSTEROLAT COMPLEX: Normal lateral collateral ligament, fascicles, lateral capsule and ligaments. ANTERIOR COMPARTMENT PATELLA: Small focus of subchondral edema and suspect overlying cartilage defect involving superior pole apex of patella. CARTILAGE: Thinning over apex. TENDONS: Normal. EFFUSION: Small joint effusion. ACL: No convincing tear. PCL: Normal appearing ligament. MENISCOFEMORAL: Normal meniscofemoral ligaments. OTHER: Moderate size Noe's cyst. MR/MR knee LT wo con IMPRESSION: 1. Multifocal cartilage thinning/small defects with mild subchondral edema. 2. Medial meniscus intrasubstance degeneration. Possible small undersurface tear involving anterior junction, although I suspect this is intrasubstance degeneration. 3. Small joint effusion. 4. Noe's cyst. Electronically authenticated by: FUENTES BARRETO Date: 09/04/2023 06:08
--- OUTSIDE RECORDS SUMMARY | 2023-09-03 08:18 | XMS_ITS | CCD ---
Author Organization [facility] Care Team Providers Care Manager Fine Dining Name Role Phone MD Cy Sears Attending Provider MD Danyell Morales Primary Care Provider DANYELL MORALES Primary Care Physician [phone] DO Luis Gutierrez Attending Provider [phone] Capri ROA Attending Unavailable SALAM, Capri Attending [...] Unavailable MORALES, DR DANYELL Solis Attending Unavailable ALKOL, DR LONNY Wiggins Consulting Unavailable MORALES, DR [...] Primary Care Unavailable Luis Gutierrez Attending Unavailable DeRiso, Cy Attending Unavailable Cy Sears Admitting Unavailable Danyell Morales Primary Care Unavailable Danyell Morales Primary Care Unavailable Luis Gutierrez Attending Unavailable Luis Gutierrez Admitting Unavailable Robin Danyell Unavailable JASIEL BRYANT Attending Unavailable JASIEL BRYANT Referring Unavailable Allergies Allergy Classification Reported Allergen(s) Allergy Type Date of Onset Reaction(s) Facility (4 sources) varenicline Drug Allergy Unknown Betterment Other Medications Current Medications Medication Drug Class(es) [...] PO Daily May 26, 2021 2:53pm NuLYTELY Hustler oral powder for reconstitution (1 source) Start: 01-28-2020 take 1 dose by mouth once NuLYTELY Hustler oral powder for reconstitution See Instructions, 1 [...] Once a day Active polyethylene glycol 3350 588554 mg / potassium chloride 1480 mg / sodium bicarbonate 5720 mg / sodium chloride 10606 mg powder for oral solution (1 source) Osmotic Laxative Start: 01-28-2020 take 1 dose by mouth once NuLYTELY Hustler oral powder for reconstitution See Instructions, 1 [...] TID, # 180 tab(s), Refills(s) 11, Pharmacy: [facility]/pharmacy #[id number], 150, cm, 05/10/21 11:13:00 EDT, [...] 11-21-2021 BASO # 0.1 103/ul Normal 0.0-0.1 [facility] Comment on above: Performed By: #### C BC #### [facility] [address] [place] [address] Dr. Scooby Irvin Basophils/100 WBC (Bld) 0.5 % Normal 0.2-2.0 [facility] Comment on above: Performed By: #### C BC #### [facility] [address] [place] [address] Dr. Scooby Irvin EO # 0.0 103/ul Normal 0.0-0.7 [facility] Comment on above: Performed By: #### C BC #### [facility] [address] [place] [address] Dr. Scooby Irvin Eosinophils/100 WBC (Bld) 0.1 % Critically low 0.9-7.0 [facility] Comment on above: Performed By: #### C BC #### [facility] [address] [place] [address] Dr. Scooby Irvin Erythrocyte distribution width (RBC) [Ratio] 15.1 % Critically high 11.0-15.0 [facility] Comment on above: Performed By: #### C BC #### [facility] [address] [place] [address] Dr. Scooby Irvin Hematocrit (Bld) [Volume fraction] 39.4 % Normal 36.0-48.0 [facility] Comment on above: Performed By: #### C BC #### [facility] [address] [place] [address] Dr. Scooby Irvin Hemoglobin (Bld) [Mass/Vol] 12.6 g/dL Normal 12.0-16.0 [facility] Comment on above: Performed By: #### C BC #### [facility] [address] [place] [address] Dr. Scooby Irvin IG # 0.05 10e3/ul Critically high 0.00-0.03 [facility] Comment on above: Performed By: #### C BC #### [facility] [address] [place] [address] Dr. Scooby Irvin IG % 0.5 % Normal 0.0-0.5 [facility] Comment on above: Performed By: #### C BC #### [facility] [address] [place] [address] Dr. Scooby Irvin LYMPH # 1.3 103/ul Normal 1.2-3.8 [facility] Comment on above: Performed By: #### C BC #### [facility] [address] [place] [address] Dr. Scooby Irvin Lymphocytes/100 WBC (Bld) 13.2 % Critically low 20.5-60.0 [facility] Comment on above: Performed By: #### C BC #### [facility] [address] [place] [address] Dr. Scooby Irvin MANUAL DIFF REQ NO Normal [facility] Comment on above: Performed By: #### C BC #### [facility] [address] [place] [address] Dr. Scooby Irvin MCH (RBC) [Entitic mass] 30.0 pg Normal 26.7-34.0 [facility] Comment on above: Performed By: #### C BC #### [facility] [address] [place] [address] Dr. Scooby Irvin MCHC (RBC) [Mass/Vol] 32.0 g/dL Normal 29.9-35.2 [facility] Comment on above: Performed By: #### C BC #### [facility] [address] [place] [address] Dr. Scooby Irvin MCV (RBC) [Entitic vol] 93.8 fL Normal 81.0-99.0 [facility] Comment on above: Performed By: #### C BC #### [facility] [address] [place] [address] Dr. Scooby Irvin MONO # 0.7 103/ul Normal 0.3-0.8 [facility] Comment on above: Performed By: #### C BC #### [facility] [address] [place] [address] Dr. Scooby Irvin Monocytes/100 WBC (Bld) 7.2 % Normal 1.7-12.0 [facility] Comment on above: Performed By: #### C BC #### [facility] [address] [place] [address] Dr. Scooby Irvin NEUT # 7.5 103/ul Critically high 1.4-6.5 [facility] Comment on above: Performed By: #### C BC #### [facility] [address] [place] [address] Dr. Scooby Irvin Neutrophils/100 WBC (Bld) 78.5 % Critically high 43.0-75.0 [facility] Comment on above: Performed By: #### C BC #### [facility] [address] [place] [address] Dr. Scooby Irvin Platelet mean volume (Bld) [Entitic vol] 9.9 fL Normal 9.5-13.5 [facility] Comment on above: Performed By: #### C BC #### [facility] [address] [place] [address] Dr. Scooby Irvin PLT 230 103/ul Normal 150-450 [facility] Comment on above: Performed By: #### C BC #### [facility] [address] [place] [address] Dr. Scooby Irvin RBC 4.20 106/ul Normal 4.20-5.40 [facility] Comment on above: Performed By: #### C BC #### [facility] [address] [place] [address] Dr. Scooby Irvin WBC 9.5 103/ul Normal 4.0-11.0 [facility] Comment on above: Performed By: #### C BC #### [facility] [address] [place] [address] Dr. Scooby Irvin PROF 14(COMP METB)on 022 Albumin [Mass/Vol] 3.9 g/dL Normal 3.4-5.0 [facility] Comment on above: Performed By: #### C BC #### [facility] [address] [place] [address] Dr. Scooby Irvin Albumin/Globulin [Mass ratio] 1.0 {ratio} Normal [facility] Comment on above: Performed By: #### C BC #### [facility] [address] [place] [address] Dr. Scooby Irvin ALP [Catalytic activity/Vol] 87 U/L Normal 46-116 [facility] Comment on above: Performed By: #### C BC #### [facility] [address] [place] [address] Dr. Scooby Irvin ALT [Catalytic activity/Vol] 29 U/L Normal 14-59 [facility] Comment on above: Performed By: #### C BC #### [facility] [address] [place] [address] Dr. Scooby Irvin Anion gap [Moles/Vol] 14.1 mmol/L Normal [facility] Comment on above: Performed By: #### C BC #### [facility] [address] [address] [address] Scooby Irvin AST [Catalytic activity/Vol] 38 U/L Critically high 15-37 [facility] Comment on above: Performed By: #### C BC #### [facility] [address] [address] [address] Scooby Irvin Bilirubin [Mass/Vol] 0.5 mg/dL Normal 0.2-1.0 [facility] Comment on above: Performed By: #### C BC #### [facility] [address] [address] [address] Scooby Irvin Calcium [Mass/Vol] 9.2 mg/dL Normal 8.5-10.1 [facility] Comment on above: Performed By: #### C BC #### [facility] [address] [address] [address] Scooby Irvin Chloride [Moles/Vol] 102 mmol/L Normal 98-107 [facility] Comment on above: Performed By: #### C BC #### [facility] [address] [address] [address] Scooby Irvin CO2 [Moles/Vol] 25.7 mmol/L Normal 21.0-32.0 [facility] Comment on above: Performed By: #### C BC #### [facility] [address] [address] [address] Scooby Irvin Creatinine [Mass/Vol] 0.76 mg/dL Normal 0.55-1.02 [facility] Comment on above: Performed By: #### C BC #### [facility] [address] [place] [address] Dr. Scooby Irvin EGFR-AF TURKISH >60 Normal >=60 [facility] Comment on above: Performed By: #### C BC #### [facility] [address] [address] [address] Scooby Irvin EGFR-NON AF TURKISH >60 Normal >=60 [facility] Comment on above: Performed By: #### C BC #### [facility] [address] [address] [address] Scooby Irvin Globulin (S) [Mass/Vol] 3.8 g/dL Normal [facility] Comment on above: Performed By: #### C BC #### [facility] [address] [address] [address] Scooby Irvin Glucose [Mass/Vol] 104 mg/dL Normal 74-106 [facility] Comment on above: Performed By: #### C BC #### [facility] [address] [address] [address] Scooby Irvin Potassium [Moles/Vol] 4.8 mmol/L Normal 3.5-5.1 [facility] Comment on above: Performed By: #### C BC #### [facility] [address] [address] [address] Scooby Irvin Protein [Mass/Vol] 7.7 g/dL Normal 6.4-8.2 [facility] Comment on above: Performed By: #### C BC #### [facility] [address] [address] [address] Scooby Irvin Sodium [Moles/Vol] 137 mmol/L Normal 136-145 [facility] Comment on above: Performed By: #### C BC #### [facility] [address] [address] [address] Scooby Irvin Urea nitrogen [Mass/Vol] 9.0 mg/dL Normal 7.0-18.0 [facility] Comment on above: Performed By: #### C BC #### [facility] [address] [address] [address] Scooby Irvin Urea nitrogen/Creatinine [Mass ratio] 11.8 mg/mg Normal [facility] Comment on above: Performed By: #### C BC #### [facility] [address] [address] [address] Scooby Irvin Gastroenterology Office/Clin ic Noteon [...] done for her thyroid and cholesterol at [place]. Alexandra denies having any other GI concerns [...] Phani Celeste to record this visit. JASS interactive digital media specialist and provider reviewed before signing. JASS: [...] 1 tab(s), Oral, TID levothyroxine, Daily NuLYTELY Hustler oral powder for reconstitution, See Instructions omeprazole, [...] influenza virus vaccine, inactivated 11/2020 Recorded Normal [facility] Comment on above: Result Comment: [...] omeprazole polyethylene glycol 3350 with electrolytes (NuLYTELY Hustler oral powder for reconstitution) simvastatin sulfasalazine (sulfasalazine [...] Unchanged polyethylene glycol 3350 with electrolytes (NuLYTELY Hustler oral powder for reconstitution) See instructions PER [...] treatment for. Chronic pancolonic ulcerative colitis Normal [facility] LIPID PROFILEon 09-27-2021 CHOL-HDL RATIO NORM SEE BELOW Normal [facility] Comment on above: Result Comment: 3.3 - 4.4 LOW RISK 4.4 - 7.1 AVERAGE RISK 7.1 - 11.0 MODERATE RISK >11.0 HIGH RISK Performed By: #### C MP, LIPID #### [facility] [address] [address] [address] Scooby Irvin Cholesterol [Mass/Vol] 235 mg/dL Critically high <=200 [facility] Comment on above: Performed By: #### C MP, LIPID #### [facility] [address] [address] [address] Scooby Irvin Cholesterol in HDL [Mass/Vol] 65 mg/dL Critically high 40-60 [facility] Comment on above: Performed By: #### C MP, LIPID #### [facility] [address] [address] [address] Scooby Irvin Cholesterol in LDL [Mass/Vol] 156.8 mg/dL Normal [facility] Comment on above: Performed By: #### C MP, LIPID #### [facility] [address] [address] [address] Scooby Irvin Cholesterol.total/Rachel sterol in HDL [Mass ratio] 3.6 {ratio} Normal [facility] Comment on above: Performed By: #### C MP, LIPID #### [facility] [address] [place] [address] Dr. Scooby Irvin HDL NORMAL > or = 60 mg/dl - LOW CARDIOVASCULAR RISK <40 mg/dl - HIGH CARDIOVASCULAR RISK Normal [facility] Comment on above: Performed By: #### C MP, LIPID #### [facility] [address] [address] [address] Scooby Irvin LDL CALC NORMAL SEE BELOW Normal [facility] Comment on above: Result Comment: <100 mg/dl OPTIMAL 100 - 129 mg/dl NEAR OR ABOVE OPTIMAL 130 - 159 mg/dl BORDERLINE HIGH 160 - 189 mg/dl HIGH >190 mg/dl VERY HIGH Performed By: #### C MP, LIPID #### [facility] [address] [place] [address] Dr. Scooby Irvin Triglyceride [Mass/Vol] 66 mg/dL Normal <=150 [facility] Comment on above: Performed By: #### C MP, LIPID #### [facility] [address] [place] [address] Dr. Scooby Irvin VLDL CALC 13.2 mg/dL Normal [facility] Comment on above: Performed By: #### C MP, LIPID #### [facility] [address] [place] [address] Dr. Scooby Irvin PROF 14(COMP METB)on 022 Albumin [Mass/Vol] 3.9 g/dL Normal 3.4-5.0 [facility] Comment on above: Performed By: #### C MP, LIPID #### [facility] [address] [place] [address] Dr. Scooby Irvin Albumin/Globulin [Mass ratio] 1.1 {ratio} Normal [facility] Comment on above: Performed By: #### C MP, LIPID #### [facility] [address] [place] [address] Dr. Scooby Irvin ALP [Catalytic activity/Vol] 87 U/L Normal 46-116 [facility] Comment on above: Performed By: #### C MP, LIPID #### [facility] [address] [place] [address] Dr. Scooby Irvin ALT [Catalytic activity/Vol] 27 U/L Normal 14-59 [facility] Comment on above: Performed By: #### C MP, LIPID #### [facility] [address] [place] [address] Dr. Scooby Irvin Anion gap [Moles/Vol] 16.9 mmol/L Normal Th [facility] Comment on above: Performed By: #### C MP, LIPID #### [facility] [address] [place] [address] Dr. Scooby Irvin AST [Catalytic activity/Vol] 21 U/L Normal 15-37 [facility] Comment on above: Performed By: #### C MP, LIPID #### [facility] [address] [place] [address] Dr. Scooby Irvin Bilirubin [Mass/Vol] 0.4 mg/dL Normal 0.2-1.0 [facility] Comment on above: Performed By: #### C MP, LIPID #### [facility] [address] [place] [address] Dr. Scooby Irvin Calcium [Mass/Vol] 8.7 mg/dL Normal 8.5-10.1 [facility] Comment on above: Performed By: #### C MP, LIPID #### [facility] [address] [place] [address] Dr. Scooby Irvin Chloride [Moles/Vol] 102 mmol/L Normal 98-107 [facility] Comment on above: Performed By: #### C MP, LIPID #### [facility] [address] [place] [address] Dr. Scooby Irvin CO2 [Moles/Vol] 22.0 mmol/L Normal 21.0-32.0 [facility] Comment on above: Performed By: #### C MP, LIPID #### [facility] [address] [place] [address] Dr. Scooby Irvin Creatinine [Mass/Vol] 0.73 mg/dL Normal 0.55-1.02 [facility] Comment on above: Performed By: #### C MP, LIPID #### [facility] [address] [place] [address] Dr. Scooby Irvin EGFR-AF TURKISH >60 Normal >=60 [facility] Comment on above: Performed By: #### C MP, LIPID #### [facility] [address] [address] [address] Scooby Irvin EGFR-NON AF TURKISH >60 Normal >=60 [facility] Comment on above: Performed By: #### C MP, LIPID #### [facility] [address] [address] [address] Scooby Irvin Globulin (S) [Mass/Vol] 3.7 g/dL Normal T [facility] Comment on above: Performed By: #### C MP, LIPID #### [facility] [address] [address] [address] Scooby Irvin Glucose [Mass/Vol] 105 mg/dL Normal 74-106 [facility] Comment on above: Performed By: #### C MP, LIPID #### [facility] [address] [place] [address] Dr. Scooby Irvin Potassium [Moles/Vol] 3.9 mmol/L Normal 3.5-5.1 [facility] Comment on above: Performed By: #### C MP, LIPID #### [facility] [address] [place] [address] Dr. Scooby Irvin Protein [Mass/Vol] 7.6 g/dL Normal 6.4-8.2 [facility] Comment on above: Performed By: #### C MP, LIPID #### [facility] [address] [place] [address] Dr. Scooby Irvin Sodium [Moles/Vol] 137 mmol/L Normal 136-145 [facility] Comment on above: Performed By: #### C MP, LIPID #### [facility] [address] [address] [address] Scooby Irvin Urea nitrogen [Mass/Vol] 11.0 mg/dL Normal 7.0-18.0 [facility] Comment on above: Performed By: #### C MP, LIPID #### [facility] [address] [address] [address] Scooby Irvin Urea nitrogen/Creatinine [Mass ratio] 15.1 mg/mg Normal [facility] Comment on above: Performed By: #### C MP, LIPID #### [facility] [address] [place] [address] Dr. Scooby KIRKLANDon 09-27-2021 TSH 2.198 uIU/mL Normal 0.358-3.740 [facility] Comment on above: Performed By: #### T SH #### [facility] [address] [place] [address] Dr. Scooby Irvin Covid-19 PCR ([facility])on 09-11 SARS-CoV-2 (COVID-19) RNA ADELITA+probe Ql (Unsp spec) Not detected Normal NOT DETECTED [facility] Comment on above: Result Comment: This test is not yet approved or cleared by the [place] FDA. When there are no FDA-approved or cleared tests available, and other criteria are met, FDA can make tests available under an emergency access mechanism called an Emergency Use Authorization (EUA). The EUA for this test is supported by the [place] of Health and Human Service's (HHS's) declaration [...] SARS-CoV-2. Performed By: #### C BC #### [facility] [address] [place] [address] [address] [address] Scooby Irvin TSHon 06-22-2021 TSH 2.326 uIU/mL Normal 0.358-3.740 [facility] Comment on above: Performed By: #### C BC #### [facility] [address] [place] [address] Dr. Scooby Irvin TSH RANGE SEE BELOW Normal [facility] Comment on above: Result Comment: <0.3 4 UIU/ml HYPERTHYROID 0.34-5.60 UIU/ml EUTHYROID >5.60 UIU/ml HYPOTHYROID Performed By: #### C #### [facility] [address] [place] [address] [address] [address] Scooby Irvin ABO/Rh Retypeon 05-31-2021 ABO/RH Recheck Result Positive Normal [facility] Comment on above: Result Comment: PERF ORMED BY: [facility] [place] [address] PATHOLOGIST REGISTERED DIETICIAN TRICIA Yin 05-31-2021 L Specimen: [id number] Received: 05/31/21 Status: LIDIA Miriam Num: [id number] Spec Type: Surgical Subm Dr: Luis Gutierrez DO Tissues: A Parathyroid Gland (R/O PARATHYROID) B THYROID - Lobe (R SUBSTERNAL THYROID) Procedures: HE Stain/8, Gross/Micro L5, Gross/Micro L4 Patient Age/Sex Location Account Attending Physician Alexandra Cervantes 71/F [place] [id number] Luis Gutierrez, SPEC NUM: [id number] RECD: 05/31/21 STATUS: LIDIA PINEDA NUM: [id number] KATHY: 05/31/21- SUBM DR: Luis Gutierrez DO [...] Specimen: Received: 05/31/21 Status: LIDIA Pineda Num: [id number] Spec Type: Surgical Subm Dr: Luis Gutierrez DO Tissues: A Parathyroid Gland (R/O PARATHYROID) B THYROID - Lobe (R SUBSTERNAL THYROID) Procedures: HERBERT Stain/8, Gross/Micro L5, Gross/Micro L4 Patient: Jey Cervantesha [id number] (Continued) Specimen: Received: 05/31/21 (Continued) Gross Description (Continued) Signed (signatur e on file) Tricia Oshea MD 06/01/211912 Specimen: Received: 05/31/21 Status: LIDIA Pineda Num: [id number] Spec Type: Surgical Subm Dr: Luis Gutierrez, Tissues: A Parathyroid Gland (R/O PARATHYROID) B THYROID - Lobe (R SUBSTERNAL THYROID) Procedures: HE Stain/8, Gross/Micro L5, Gross/Micro L4 Patient: Alexandra Cervantes [id number] (Continued) Specimen: Received: 05/31/21 (Continued) Gross Description [...] microscopic findings support the above pathologic diagnosis. [id number], [id number], [id number] Specimen: [id number] Received: (more content not included)... Normal [facility] LeukoReduced RBCon 2 LeukoReduced RBC READY Normal [facility] Type and Screenon 05-31-2021 ABO and Rh group Nom (Bld) Blood group O Rh(D) positive Normal [facility] Comment on above: Order Comment: Trans fuse now? N Result Comment: PERF ORMED BY: [place] [address] PATHOLOGIST REGISTERED DIETICIAN TRICIA OSHEA M.D. Basic Metabolic Panelon 05-12 Calcium [Mass/Vol] 9.5 mg/dL Normal 8.2-10.2 [facility] Comment on above: Result Comment: PERF ORMED BY: [facility] [address] [place] [address] PATHOLOGIST REGISTERED DIETICIAN TRICIA OSHEA M.D. Performed By: #### C BC, BMP #### [facility] [address] [place], [place] [id number] [facility] Chloride [Moles/Vol] 105 mmol/L Normal 95-114 [facility] Comment on above: Performed By: #### C BC, BMP #### [facility] [address] CO2 [Moles/Vol] 23.0 mmol/L Normal 22.0-30.0 [facility] Comment on above: Performed By: #### C BC, BMP #### [address] Creatinine [Mass/Vol] 0.66 mg/dL Normal 0.44-1.03 [facility] Comment on above: Performed By: #### C BC, BMP #### [address] Estimated GFR ( Traci > 60 Normal [facility] Comment on above: Result Comment: GFR estimated reference range: According to KDOQI guidelines, <60 ml/min/1.73m2 is sufficient to diagnose a patient with chronic kidney disease. Performed By: #### C BC, BMP #### [address] Estimated GFR (Non- Am > 60 Normal [facility] Comment on above: Performed By: #### C BC, BMP #### [address] Glucose [Mass/Vol] 89 mg/dL Normal 70-100 [facility] Comment on above: Result Comment: [place] om Glucose Reference Range is dependent on time and content of last meal. Glucose of more than 200 mg/dL in a nonstressed, ambulatory subject supports the diagnosis of Diabetes Mellitus. ADA recommended reference range Performed By: #### C BC, BMP #### [place] [address] [place] Potassium [Moles/Vol] 4.0 mmol/L Normal 3.5-5.1 [facility] Comment on above: Performed By: #### C BC, BMP #### [place] [address] [place] Sodium [Moles/Vol] 137 mmol/L Normal 136-146 [facility] Comment on above: Performed By: #### C BC, BMP #### [address] Urea nitrogen [Mass/Vol] 10 mg/dL Normal 9-23 [facility] Comment on above: Performed By: #### C BC, [facility] #### [facility] [address] Basophils Auto (Bld) [#/Vol] Ordered By: Luis Gutierrez on 05-26-2021 Basophils (Bld) [#/Vol] 0.1 10*3/uL 0.0-0.2 [facility] Basophils/100 WBC Auto (Bld) Ordered By: Luis Gutierrez on 05-26-2021 Basophils/100 WBC (Bld) 0.9 % F [facility] Blood hemoglobin measurement (mass/volume)Ordered By: Luis Gutierrez on 05-26-2021 Hemoglobin (Bld) [Mass/Vol] 12.4 g/dL 11.8-15.4 [facility] Blood leukocytes automated c ount (number/volume)Ordered By: Luis Gutierrez on 05-26-2021 WBC (Bld) [#/Vol] 8.8 10*3/uL 4.5-11.0 [facility] COVID-19 FRMCon 05-26-2021 SARS-CoV-2 (COVID-19) RNA ADELITA+probe Ql (Unsp spec) Negative Normal Negative [facility] Comment on above: Order Comment: Healt hcare Worker?: N Result Comment: Testing for SARS-CoV-2 by RT-PCR This test was developed and its performance characteristics determined by [employer]) and validated at the [facility]. This test has not been FDA cleared [...] is terminated or revoked sooner. PERFORMED BY: [place] [address] PATHOLOGIST REGISTERED DIETICIAN TRICIA OSHEA M.D. Performed By: #### C OVID 19 [facility] #### [facility] [address] COVID-19 Positive/NegativeOr dered By: Luis Gutierrez on 05-26-2021 SARS-CoV-2 (COVID-19) N gene ADELITA+probe Ql (Resp) Negative Negative [facility] Comment on above: Testing for SARS-CoV -2 by RT-PCRThis test was developed and its performance characteristics determined by [employer], [employer]) and validated at the [facility]. This test has not been FDA cleared [...] 05-26-2021 Calcium [Mass/Vol] 9.4 mg/dL Normal 8.2-10.2 [facility] Comment on above: Performed By: #### C A, TSH3, PTH #### [facility] [address] [place] [address] Complete Blood Count Auto Di ffon 05-26-2021 Basophils (Bld) [#/Vol] 0.1 10*3/uL Normal 0.0-0.2 [facility] Comment on above: Result Comment: PERF ORMED BY: [place] [address] PATHOLOGIST REGISTERED DIETICIAN TRICIA OSHEA M.D. Performed By: #### C BC, BMP #### [address] Basophils/100 WBC (Bld) 0.9 % Normal . [facility] Comment on above: Performed By: #### C BC, BMP #### [address] Eosinophils (Bld) [#/Vol] 0.0 10*3/uL Normal 0.0-0.45 [facility] Comment on above: Performed By: #### C BC, BMP #### [address] Eosinophils/100 WBC (Bld) 0.2 % Normal . [facility] Comment on above: Performed By: #### C BC, BMP #### [address] Erythrocyte distribution width (RBC) [Ratio] 16.1 % High 11.9-15.3 [facility] Comment on above: Performed By: #### C BC, BMP #### [address] Hematocrit (Bld) [Volume fraction] 37.5 % Normal 34.0-46.4 [facility] Comment on above: Performed By: #### C BC, BMP #### [address] Hemoglobin (Bld) [Mass/Vol] 12.4 g/dL Normal 11.8-15.4 [facility] Comment on above: Performed By: #### C BC, BMP #### [place] [address] [place] Lymphocytes (Bld) [#/Vol] 1.4 10*3/uL Normal 1.00-4.8 [facility] Comment on above: Performed By: #### C BC, BMP #### [place] [address] [place] Lymphocytes/100 WBC (Bld) 15.8 % Normal . [facility] Comment on above: Performed By: #### C BC, BMP #### [facility] [address] MCH (RBC) [Entitic mass] 29.2 pg Normal 24.7-34.3 [facility] Comment on above: Performed By: #### C BC, BMP #### [facility] [address] MCV (RBC) [Entitic vol] 88.3 fL Normal 80-100 [facility] Comment on above: Performed By: #### C BC, BMP #### [facility] [address] Mean Corpuscular HGB Conc 33.1 g/dL Normal 32.0-35.0 [facility] Comment on above: Performed By: #### C BC, BMP #### [facility] [address] [place] [address] [place] Monocytes (Bld) [#/Vol] 0.7 10*3/uL Normal 0.0-0.8 [facility] Comment on above: Performed By: #### C BC, BMP #### [facility] [address] [place] [address] [place] Monocytes/100 WBC (Bld) 7.7 % Normal . [facility] Comment on above: Performed By: #### C BC, BMP #### [facility] [address] [place] [address] [place] Neutrophils (Bld) [#/Vol] 6.7 10*3/uL Normal 1.8-7.7 [facility] Comment on above: Performed By: #### C BC, BMP #### [facility] [address] [place] [address] [place] Neutrophils/100 WBC (Bld) 75.4 % Normal . [facility] Comment on above: Performed By: #### C BC, BMP #### [facility] [address] [place] [address] [place] Nucleated RBC/100 WBC (Bld) [Ratio] 0.1 % Normal 0-0.5 [facility] Comment on above: Performed By: #### C BC, BMP #### [facility] [address] Platelet mean volume (Bld) [Entitic vol] 8.6 fL Normal 6.3-10.7 [facility] Comment on above: Performed By: #### C BC, BMP #### [facility] [address] [place] [address] [place] Platelets (Bld) [#/Vol] 241 10*3/uL Normal 150-450 [facility] Comment on above: Performed By: #### C BC, BMP #### [facility] [address] RBC (Bld) [#/Vol] 4.24 10*6/uL Normal 3.60-5.00 [facility] Comment on above: Performed By: #### C BC, BMP #### [facility] [address] WBC (Bld) [#/Vol] 8.8 10*3/uL Normal 4.5-11.0 [facility] Comment on above: Performed By: #### C BC, BMP #### [facility] [address] Creatinine and Glomerular fi ltration rate.predicted panel (S/P/Bld)Ordered By: Luis Gutierrez on 05-26-2021 Creatinine [Mass/Vol] 0.66 mg/dL 0.44-1.03 [facility] ECG 12 lead ECGon 05-26-2021 ECG 12 lead ECG [facility] [place] [address] [place] [address] Electrocardiograph Report Signed Patient: Alexandra Cervantes MR#: [id number] 2 : 1950 Acct:[id number] Age/Sex: 71 / F ADM Date: 05/26/21 Loc: Room: Type: [facility] Attending Dr: Luis Gutierrez DO Ordering Provider: [...] By Ashley Haines DO 05/27 0848 Normal [facility] Eosinophils Auto (Bld) [#/Vo l]Ordered By: Luis Gutierrez on 05-26-2021 Eosinophils (Bld) [#/Vol] 0.0 10*3/uL 0.0-0.45 [facility] Eosinophils/100 WBC Auto (Bl d)Ordered By: Luis Gutierrez on 05-26-2021 Eosinophils/100 WBC (Bld) 0.2 % [facility] Erythrocyte distribution wid th Auto (RBC) [Ratio]Ordered By: Luis Gutierrez on 05-26-2021 Erythrocyte distribution width (RBC) [Ratio] 16.1 % 11.9-15.3 [facility] Estimated glomerular filtrat ion rate (GFR) non- AmericanOrdered By: Luis Gutierrez on 05-26-2021 GFR/1.73 sq M.predicted among non-blacks MDRD (S/P/Bld) [Vol rate/Area] > 60 mL/Min [facility] Hematocrit Auto (Bld) [Volum e fraction]Ordered By: Luis Gutierrez on 05-26-2021 Hematocrit (Bld) [Volume fraction] 37.5 % 34.0-46.4 [facility] Laboratory - Hematology and Cell countsOrdered By: Luis Gutierrez on 05-26-2021 Nucleated RBC/100 WBC (Bld) [Ratio] 0.1 % 0-0.5 [facility] Lymphocytes Auto (Bld) [#/Vo l]Ordered By: Luis Gutierrez on 05-26-2021 Lymphocytes (Bld) [#/Vol] 1.4 10*3/uL 1.00-4.8 [facility] Lymphocytes/100 WBC Auto (Bl d)Ordered By: Luis Gutierrez on 05-26-2021 Lymphocytes/100 WBC (Bld) 15.8 % [facility] MCH Auto (RBC) [Entitic mass ]Ordered By: Luis Gutierrez on 05-26-2021 MCH (RBC) [Entitic mass] 29.2 pg 24.7-34.3 [facility] MCHC Auto (RBC) [Mass/Vol]Or dered By: Luis Gutierrez on 05-26-2021 MCHC (RBC) [Mass/Vol] 33.1 g/dL 32.0-35.0 [facility] MCV Auto (RBC) [Entitic vol] Ordered By: Luis Gutierrez on 05-26-2021 MCV (RBC) [Entitic vol] 88.3 fL 80-100 [facility] Monocytes Auto (Bld) [#/Vol] Ordered By: Luis Gutierrez on 05-26-2021 Monocytes (Bld) [#/Vol] 0.7 10*3/uL 0.0-0.8 [facility] Monocytes/100 WBC Auto (Bld) Ordered By: Luis Gutierrez on 05-26-2021 Monocytes/100 WBC (Bld) 7.7 % [facility] Neutrophils Auto (Bld) [#/Vo l]Ordered By: Luis Gutierrez on 05-26-2021 Neutrophils (Bld) [#/Vol] 6.7 10*3/uL 1.8-7.7 [facility] Neutrophils/100 WBC Auto (Bl d)Ordered By: Luis Gutierrez on 05-26-2021 Neutrophils/100 WBC (Bld) 75.4 % [facility] No Panel InformationOrdered By: Luis Gutierrez on 05-26-2021 Estimated GFR () > 60 mL/Min [facility] Comment on above: GFR estimated refere nce range: According to KDOQI guidelines, <60 ml/min/1.73m2 is sufficient to diagnose a patient with chronic kidney disease. Pharmacy Creatinine Clearance (Chem N/A [facility] Parathyroid Hormone Intacton 05-26-2021 Parathyroid Hormone Intact 31.2 pg/mL Normal [facility] Comment on above: Result Comment: PERF ORMED BY: [place] [address] PATHOLOGIST REGISTERED DIETICIAN TRICIA OSHEA M.D. Performed By: #### C BC, BMP #### [address] Platelet mean volume Auto (B ld) [Entitic vol]Ordered By: Luis Gutierrez on 05-26-2021 Platelet mean volume (Bld) [Entitic vol] 8.6 fL 6.3-10.7 [facility] Platelets Auto (Bld) [#/Vol] Ordered By: Luis Gutierrez on 05-26-2021 Platelets (Bld) [#/Vol] 241 10*3/uL 150-450 [facility] RBC Auto (Bld) [#/Vol]Ordere d By: Luis Gutierrez on 05-26-2021 RBC (Bld) [#/Vol] 4.24 10*6/uL 3.60-5.00 [facility] Serum or plasma calcium joseph urement (mass/volume)Ordered By: Luis Gutierrez on 05-26-2021 Calcium [Mass/Vol] 9.4 mg/dL 8.2-10.2 [facility] Serum or plasma chloride liv surement (moles/volume)Ordered By: Luis Gutierrez on 05-26-2021 Chloride [Moles/Vol] 105 mmol/L 95-114 [facility] Serum or plasma glucose joseph urement (mass/volume)Ordered By: Luis Gutierrez on 05-26-2021 Glucose [Mass/Vol] 89 mg/dL 70-100 [facility] Comment on above: ADA recommended refe rence rangeRandom Glucose Reference Range is dependent on time and content of last meal. Glucose of more than 200 mg/dL in a nonstressed, ambulatory subject supports the diagnosis of Diabetes Mellitus. Serum or plasma intact parat hyroid hormone measurement (mass/volume)Ordered By: Luis Gutierrez on 05-26-2021 Parathyrin.intact [Mass/Vol] 31.2 pg/mL [facility] Serum or plasma potassium me asurement (moles/volume)Ordered By: Luis Gutierrez on 05-26-2021 Potassium [Moles/Vol] 4.0 mmol/L 3.5-5.1 [facility] Serum or plasma sodium measu rement (moles/volume)Ordered By: Luis Gutierrez on 05-26-2021 Sodium [Moles/Vol] 137 mmol/L 136-146 [facility] Serum or plasma total carbon dioxide measurement (moles/volume)Ordered By: Luis Gutierrez on 05-26-2021 CO2 [Moles/Vol] 23.0 mmol/L 22.0-30.0 [facility] Serum or plasma urea nitroge n measurement (mass/volume)Ordered By: Luis Gutierrez on 05-26-2021 Urea nitrogen [Mass/Vol] 10 mg/dL 11-03 [facility] TSH DL <= 0.005 mIU/L QnOrde red By: Luis Gutierrez on 05-26-2021 TSH Qn 0.86 m[IU]/L 0.45-5.33 [facility] Thyroid Stimulating Hormoneo n 05-26-2021 TSH Qn 0.86 m[IU]/L Normal 0.45-5.33 [facility] Comment on above: Performed By: #### C A, TSH3, PTH #### [address] MG MAMM SCREEN 3D GEORGES CADon 05-22-2021 MG MAMM SCREEN 3D GEORGES CAD Patient: ALEXANDRA CERVANTES Exam Date: 05/22/2021 : 1950 Gender:F Ordering : DR DANYELL MORALES M.D. Admission #: [id number] Family : Order #: [id number] CLICK HERE TO VIEW EXAM RADIOLOGY REPORT [...] Treatments None Family Cancers None LOCATION: [facility] BREAST COMPOSITION: Scattered areas fibroglandular density. [...] Killian MD on 05/22/2021 at 12:06 Normal [facility] CT Chest w/Contraston 2021 CT Chest w/Contrast Please see CT neck report dated: 05/17/2021. Report reported and signed by Valente Lion on 05/22/2021 1528 Normal [facility] CT Soft Tissue Neck w/ Contr [...] by Valente Lion on 05/22/2021 1528 Normal [facility] Manager Safe Gastroenterology Office/Clin ic Noteon 05-11-2021 Gastroenterology Office/Clinic [...] after patient or guardian consented to allow [employer] to record this visit. JASS interactive digital media specialist and provider reviewed before signing. JASS: Lillie Santiago. Follow-up With When Contact Information JANINA ALARCON, LENORE Farooq MED Within 6 months [facility] [address] [place] [address]- Additional Instructions: Problem List/Past Medical History Ongoing [...] 1 tab(s), Oral, TID levothyroxine, Daily NuLYTELY Hustler oral powder for reconstitution, See Instructions omeprazole, [...] influenza virus vaccine, inactivated 11/2020 Recorded Normal [facility] Comment on above: Result Comment: [...] omeprazole polyethylene glycol 3350 with electrolytes (NuLYTELY Hustler oral powder for reconstitution) simvastatin Procedures Performed Colonoscopy, flexible; with biopsy, single or multiple (02/16/2020), Colonoscopy. Discharge Vitals Blood Pressure 180/90 Height 150.0 cm Height 150 cm Weight 71.0 kg Weight 71 kg BMI 31.56 What to do next You Need to Schedule the Following Appointments Follow Up with JANINA ALARCON, LENORE Farooq, [facility] When: Within 6 months Where: [facility] [address] [place] [address]- Medications What How Much When Why Instructions Changed sulfasalazine (sulfasalazine 500 mg Tab) 2 Tablets By Mouth 3 times a day Pickup at [facility]/pharmacy #[id number] Unchanged alprazolam By Mouth Contact [...] Unchanged polyethylene glycol 3350 with electrolytes (NuLYTELY Hustler oral powder for reconstitution) See instructions PER PHYS INSRTUCTIONS Contact prescribing physician if questions or concerns Unchanged simvastatin By Mouth Contact prescribing physician if questions or concerns Pharmacy Information [facility]/pharmacy #[id number]: [address], [place] [id number] [phone] Allergies No Known Allergies Problems Ongoing - Any problem that you are currently receiving treatment for. Chronic pancolonic ulcerative colitis Normal [facility] [place] esophaguson 05-04-2021 [place] esophagus [facility] [place] [address] [place] [address] Fluoroscopy Report Signed Patient: Alexandra Cervantes MR#: [id number] 2 : 1950 Acct:[id number] Age/Sex: 71 / F ADM Date: 05/04/21 Loc: XD Room: Type: [facility] Attending Dr: Cy Sears MD Ordering Provider: Cy Sears MD Date of Service: 05/04/21 [place] esophagus: K22.9 Copies to: Cy Sears MD [...] Kitchen Jr., M.D.05/04/2021 3:37 PM Dictation Location: [place] [address] Transcribed By: [facility] 05/04/211536 Dictated By: Selvin Kitchen Jr, MD 05/04/211531 Signed By: 05/04/21 1537 Normal [facility] Lab Reportson 04-26-2021 Lab Reports [id number]:[id number] Normal [facility] CBC AUTO DIFFon 04-20-2021 BASO # 0.1 103/ul Normal 0.0-0.1 [facility] Comment on above: Performed By: #### C BC #### [facility] [address] [place] [address] Dr. Scooby Irvin Basophils/100 WBC (Bld) 0.4 % Normal 0.2-2.0 [facility] Comment on above: Performed By: #### C BC #### [facility] [address] [place] [address] Dr. Scooby Irvin EO # 0.0 103/ul Normal 0.0-0.7 [facility] Comment on above: Performed By: #### C BC #### [facility] [address] [place] [address] Dr. Scooby Irvin Eosinophils/100 WBC (Bld) 0.2 % Critically low 0.9-7.0 [facility] Comment on above: Performed By: #### C BC #### [facility] [address] [place] [address] Dr. Scooby Irvin Erythrocyte distribution width (RBC) [Ratio] 16.7 % Critically high 11.0-15.0 [facility] Comment on above: Performed By: #### C BC #### [facility] [address] [place] [address] Dr. Scooby Irvin Hematocrit (Bld) [Volume fraction] 37.6 % Normal 36.0-48.0 [facility] Comment on above: Performed By: #### C BC #### [facility] [address] [place] [address] Dr. Scooby Irvin Hemoglobin (Bld) [Mass/Vol] 12.0 g/dL Normal 12.0-16.0 [facility] Comment on above: Performed By: #### C BC #### [facility] [address] [place] [address] Dr. Scooby Irvin IG # 0.02 10e3/ul Normal 0.00-0.03 [facility] Comment on above: Performed By: #### C BC #### [facility] [address] [place] [address] Dr. Scooby Irvin IG % 0.2 % Normal 0.0-0.5 [facility] Comment on above: Performed By: #### C BC #### [facility] [address] [place] [address] Dr. Scooby Irvin LYMPH # 1.6 103/ul Normal 1.2-3.8 [facility] Comment on above: Performed By: #### C BC #### [facility] [address] [place] [address] Dr. Scooby Irvin Lymphocytes/100 WBC (Bld) 13.6 % Critically low 20.5-60.0 [facility] Comment on above: Performed By: #### C BC #### [facility] [address] [place] [address] Dr. Scooby Irvni MANUAL DIFF REQ NO Normal [facility] Comment on above: Performed By: #### C BC #### [facility] [address] [address] [address] Scooby Irvin MCH (RBC) [Entitic mass] 28.6 pg Normal 26.7-34.0 [facility] Comment on above: Performed By: #### C BC #### [facility] [address] [address] [address] Scooby Irvin MCHC (RBC) [Mass/Vol] 31.9 g/dL Normal 29.9-35.2 [facility] Comment on above: Performed By: #### C BC #### [facility] [address] [address] [address] Scooby Irvin MCV (RBC) [Entitic vol] 89.5 fL Normal 81.0-99.0 [facility] Comment on above: Performed By: #### C BC #### [facility] [address] [place] [address] Dr. Scooby Irvin MONO # 0.7 103/ul Normal 0.3-0.8 [facility] Comment on above: Performed By: #### C BC #### [facility] [address] [address] [address] Scooby Irvin Monocytes/100 WBC (Bld) 5.8 % Normal 1.7-12.0 [facility] Comment on above: Performed By: #### C BC #### [facility] [address] [address] [address] Scooby Irvin NEUT # 9.1 103/ul Critically high 1.4-6.5 [facility] Comment on above: Performed By: #### C BC #### [facility] [address] [address] [address] Scooby Irvin Neutrophils/100 WBC (Bld) 79.8 % Critically high 43.0-75.0 [facility] Comment on above: Performed By: #### C BC #### [facility] [address] [place] [address] Dr. Scooby Irvin Platelet mean volume (Bld) [Entitic vol] 10.2 fL Normal 9.5-13.5 [facility] Comment on above: Performed By: #### C BC #### [facility] [address] [address] [address] Scooby Irvin PLT 217 103/ul Normal 150-450 [facility] Comment on above: Performed By: #### C BC #### [facility] [address] [address] [address] Scooby Irvin RBC 4.20 106/ul Normal 4.20-5.40 [facility] Comment on above: Performed By: #### C BC #### [facility] [facility] [address] [address] [address] Scooby Irvin WBC 11.4 103/ul Critically high 4.0-11.0 [facility] Comment on above: Performed By: #### C BC #### [facility] [address] [place] [address] Dr. Scooby Irvin PROF 14(COMP METB)on 022 Albumin [Mass/Vol] 3.9 g/dL Normal 3.5-5.0 [facility] Comment on above: Performed By: #### C MP #### [facility] [address] [place] [address] Dr. Scooby Irvin Albumin/Globulin [Mass ratio] 1.1 {ratio} Normal [facility] Comment on above: Performed By: #### C MP #### [facility] [address] [place] [address] Dr. Scooby Irvin ALP [Catalytic activity/Vol] 72 U/L Normal 38-126 [facility] Comment on above: Performed By: #### C MP #### [facility] [address] [place] [address] Dr. Scooby Irvin ALT [Catalytic activity/Vol] 23 U/L Normal 9-52 [facility] Comment on above: Performed By: #### C MP #### [facility] [address] [place] [address] Dr. Scooby Irvin Anion gap [Moles/Vol] 10.2 mmol/L Normal [facility] Comment on above: Performed By: #### C MP #### [facility] [address] [place] [address] Dr. Scooby Irvin AST [Catalytic activity/Vol] 20 U/L Normal 14-36 [facility] Comment on above: Performed By: #### C MP #### [facility] [address] [place] [address] Dr. Scooby Irvin Bilirubin [Mass/Vol] 0.5 mg/dL Normal 0.2-1.3 [facility] Comment on above: Performed By: #### C MP #### [facility] [address] [place] [address] Dr. Scooby Irvin Calcium [Mass/Vol] 8.8 mg/dL Normal 8.4-10.2 [facility] Comment on above: Performed By: #### C MP #### [facility] [address] [place] [address] Dr. Scooby Irvin Chloride [Moles/Vol] 104 mmol/L Normal 98-107 [facility] Comment on above: Performed By: #### C MP #### [facility] [address] [place] [address] Dr. Scooby Irvin CO2 [Moles/Vol] 28.0 mmol/L Normal 22.0-30.0 [facility] Comment on above: Performed By: #### C MP #### [facility] [address] [place] [address] Dr. Scooby Irvin Creatinine [Mass/Vol] 0.87 mg/dL Normal 0.52-1.04 [facility] Comment on above: Performed By: #### C MP #### [facility] [address] [place] [address] Dr. Scooby Irvin EGFR-AF TURKISH >60 Normal >=60 [facility] Comment on above: Performed By: #### C MP #### [facility] [address] [place] [address] Dr. Scooby Irvin EGFR-NON AF TURKISH >60 Normal >=60 [facility] Comment on above: Performed By: #### C MP #### [facility] [address] [place] [address] Dr. Scooby Irvin Globulin (S) [Mass/Vol] 3.5 g/dL Normal [facility] Comment on above: Performed By: #### C MP #### [facility] [address] [place] [address] Dr. Scooby Irvin Glucose [Mass/Vol] 93 mg/dL Normal 74-106 [facility] Comment on above: Performed By: #### C MP #### [facility] [address] [address] [address] Scooby Irvin Potassium [Moles/Vol] 4.2 mmol/L Normal 3.4-5.0 [facility] Comment on above: Performed By: #### C MP #### [facility] [address] [place] [address] Dr. Scooby Irvin Protein [Mass/Vol] 7.4 g/dL Normal 6.1-8.2 [facility] Comment on above: Performed By: #### C MP #### [facility] [address] [place] [address] Dr. Scooby Irvin Sodium [Moles/Vol] 138 mmol/L Normal 137-145 [facility] Comment on above: Performed By: #### C MP #### [facility] [address] [place] [address] Dr. Scooby Irvin Urea nitrogen [Mass/Vol] 15.0 mg/dL Normal 7.0-17.0 [facility] Comment on above: Performed By: #### C MP #### [facility] [address] [place] [address] Dr. Scooby Irvin Urea nitrogen/Creatinine [Mass ratio] 17.2 mg/mg Normal [facility] Comment on above: Performed By: #### C MP #### [facility] [address] [place] [address] Dr[address] SKULL BASE [...] or suspicious findings. Electronically authenticated by: VALENTE BARERTO Date: 2021-04-07 08:23 Normal [facility] CT LUNG CANCER SCREENINGon 0 03-23-2021 [...] VALENTE BARRETO Date: 2021-03-23 09:57 Normal [facility] CBC AUTO DIFFon 03-09-2021 BASO # 0.1 103/ul Normal 0.0-0.1 [facility] Comment on above: Performed By: #### C BC #### [facility] [address] [place] [address] Dr. Scooby Irvin Basophils/100 WBC (Bld) 1.2 % Normal 0.2-2.0 [facility] Comment on above: Performed By: #### C BC #### [facility] [address] [place] [address] Dr. Scooby Irvin EO # 0.1 103/ul Normal 0.0-0.7 [facility] Comment on above: Performed By: #### C BC #### [facility] [address] [place] [address] Dr. Scooby Irvin Eosinophils/100 WBC (Bld) 1.4 % Normal 0.9-7.0 [facility] Comment on above: Performed By: #### C BC #### [facility] [address] [place] [address] Dr. Scooby Irvin Erythrocyte distribution width (RBC) [Ratio] 16.3 % Critically high 11.0-15.0 [facility] Comment on above: Performed By: #### C BC #### [facility] [address] [place] [address] Dr. Scooby Irvin Hematocrit (Bld) [Volume fraction] 39.6 % Normal 36.0-48.0 [facility] Comment on above: Performed By: #### C BC #### [facility] [address] [place] [address] Dr. Scooby Irvin Hemoglobin (Bld) [Mass/Vol] 12.6 g/dL Normal 12.0-16.0 [facility] Comment on above: Performed By: #### C BC #### [facility] [address] [place] [address] Dr. Scooby Irvin IG # 0.01 10e3/ul Normal 0.00-0.03 [facility] Comment on above: Performed By: #### C BC #### [facility] [address] [place] [address] Dr. Scooby Irvin IG % 0.2 % Normal 0.0-0.5 [facility] Comment on above: Performed By: #### C BC #### [facility] [address] [place] [address] Dr. Scooby Irvin LYMPH # 1.6 103/ul Normal 1.2-3.8 [facility] Comment on above: Performed By: #### C BC #### [facility] [address] [place] [address] Dr. Scooby Irvin Lymphocytes/100 WBC (Bld) 30.7 % Normal 20.5-60.0 [facility] Comment on above: Performed By: #### C BC #### [facility] [address] [place] [address] Dr. Scooby Irvin MANUAL DIFF REQ NO Normal [facility] Comment on above: Performed By: #### C BC #### [facility] [address] [place] [address] Dr. Scooby Irvin MCH (RBC) [Entitic mass] 28.4 pg Normal 26.7-34.0 [facility] Comment on above: Performed By: #### C BC #### [facility] [address] [place] [address] Dr. Scooby Irvin MCHC (RBC) [Mass/Vol] 31.8 g/dL Normal 29.9-35.2 [facility] Comment on above: Performed By: #### C BC #### [facility] [address] [place] [address] Dr. Scooby Irvin MCV (RBC) [Entitic vol] 89.2 fL Normal 81.0-99.0 [facility] Comment on above: Performed By: #### C BC #### [facility] [address] [place] [address] Dr. Scooby Irvin MONO # 0.6 103/ul Normal 0.3-0.8 [facility] Comment on above: Performed By: #### C BC #### [facility] [address] [place] [address] Dr. Scooby Irvin Monocytes/100 WBC (Bld) 11.5 % Normal 1.7-12.0 [facility] Comment on above: Performed By: #### C BC #### [facility] [address] [place] [address] Dr. Scooby Irvin NEUT # 2.8 103/ul Normal 1.4-6.5 [facility] Comment on above: Performed By: #### C BC #### [facility] [address] [place] [address] Dr. Scooby Irvin Neutrophils/100 WBC (Bld) 55.0 % Normal 43.0-75.0 [facility] Comment on above: Performed By: #### C BC #### [facility] [address] [place] [address] Dr. Scooby Irvin Platelet mean volume (Bld) [Entitic vol] 10.3 fL Normal 9.5-13.5 [facility] Comment on above: Performed By: #### C BC #### [facility] [address] [place] [address] Dr. Scooby Irvin PLT 208 103/ul Normal 150-450 [facility] Comment on above: Performed By: #### C BC #### [facility] [address] [place] [address] Dr. Scooby Irvin RBC 4.44 106/ul Normal 4.20-5.40 [facility] Comment on above: Performed By: #### C BC #### [facility] [address] [place] [address] Dr. Scooby Irvin WBC 5.1 103/ul Normal 4.0-11.0 [facility] Comment on above: Performed By: #### C BC #### [facility] [address] [place], [place] [address] Dr. Scooby Irvin FREE T4on 03-09-2021 Free T4 [Mass/Vol] 1.15 ng/dL Normal 0.78-2.19 [facility] Comment on above: Performed By: #### C BC #### [facility] [address] [address] [address] Scooby Irvin LIPID PROFILEon 03-09-2021 CHOL-HDL RATIO NORM SEE BELOW Normal [facility] Comment on above: Result Comment: 3.3 - 4.4 LOW RISK 4.4 - 7.1 AVERAGE RISK 7.1 - 11.0 MODERATE RISK >11.0 HIGH RISK Performed By: #### L IPID, CMP, TSH #### [facility] [address] [address] [address] Scooby Irvin Cholesterol [Mass/Vol] 227 mg/dL Critically high <=200 [facility] Comment on above: Performed By: #### L IPID, CMP, TSH #### [facility] [address] [address] [address] Scooby Irvin Cholesterol in HDL [Mass/Vol] 65 mg/dL Normal [facility] Comment on above: Performed By: #### L IPID, CMP, TSH #### [facility] [address] [address] [address] Scooby Irvin Cholesterol in LDL [Mass/Vol] 142.6 mg/dL Normal [facility] Comment on above: Performed By: #### L IPID, CMP, TSH #### [facility] [address] [address] [address] Scooby Irvin Cholesterol.total/Rachel sterol in HDL [Mass ratio] 3.5 {ratio} Normal [facility] Comment on above: Performed By: #### L IPID, CMP, TSH #### [facility] [address] [address] [address] Scooby Irvin HDL NORMAL > or = 60 mg/dl - LOW CARDIOVASCULAR RISK <40 mg/dl - HIGH CARDIOVASCULAR RISK Normal [facility] Comment on above: Performed By: #### L IPID, CMP, TSH #### [facility] [address] [address] [address] Scooby Irvin LDL CALC NORMAL SEE BELOW Normal [facility] Comment on above: Result Comment: <100 mg/dl OPTIMAL 100 - 129 mg/dl NEAR OR ABOVE OPTIMAL 130 - 159 mg/dl BORDERLINE HIGH 160 - 189 mg/dl HIGH >190 mg/dl VERY HIGH Performed By: #### L IPID, CMP, TSH #### [facility] [address] [address] [address] Scooby Irvin Triglyceride [Mass/Vol] 97 mg/dL Normal <=150 T [facility] Comment on above: Performed By: #### L IPID, CMP, TSH #### [facility] [address] [address] [address] Scooby Irvin VLDL CALC 19.4 mg/dL Normal [facility] Comment on above: Performed By: #### L IPID, CMP, TSH #### [facility] [address] [address] [address] Scooby Irvin PROF 14(COMP METB)on 022 Albumin [Mass/Vol] 4.0 g/dL Normal 3.5-5.0 [facility] Comment on above: Performed By: #### L IPID, CMP, TSH #### [facility] [address] [address] [address] Scooby Irvin Albumin/Globulin [Mass ratio] 1.1 {ratio} Normal [facility] Comment on above: Performed By: #### L IPID, CMP, TSH #### [facility] [address] [address] [address] Scooby Irvin ALP [Catalytic activity/Vol] 80 U/L Normal 38-126 [facility] Comment on above: Performed By: #### L IPID, CMP, TSH #### [facility] [address] [address] [address] Scooby Irvin ALT [Catalytic activity/Vol] 35 U/L Normal 9-52 [facility] Comment on above: Performed By: #### L IPID, CMP, TSH #### [facility] [address] [address] [address] Scooby Irvin Anion gap [Moles/Vol] 11.8 mmol/L Normal [facility] Comment on above: Performed By: #### L IPID, CMP, TSH #### [facility] [address] [address] [address] Scooby Irvin AST [Catalytic activity/Vol] 24 U/L Normal 14-36 [facility] Comment on above: Performed By: #### L IPID, CMP, TSH #### [facility] [address] [address] [address] Scooby Irvin Bilirubin [Mass/Vol] 0.5 mg/dL Normal 0.2-1.3 [facility] Comment on above: Performed By: #### L IPID, CMP, TSH #### [facility] [address] [place] [address] Dr. Scooby Irvin Calcium [Mass/Vol] 9.3 mg/dL Normal 8.4-10.2 [facility] Comment on above: Performed By: #### L IPID, CMP, TSH #### [facility] [address] [address] [address] Scooby Irvin Chloride [Moles/Vol] 105 mmol/L Normal 98-107 [facility] Comment on above: Performed By: #### L IPID, CMP, TSH #### [facility] [address] [address] [address] Scooby Irvin CO2 [Moles/Vol] 26.2 mmol/L Normal 22.0-30.0 [facility] Comment on above: Performed By: #### L IPID, CMP, TSH #### [facility] [address] [address] [address] Scooby Irvin Creatinine [Mass/Vol] 0.83 mg/dL Normal 0.52-1.04 [facility] Comment on above: Performed By: #### L IPID, CMP, TSH #### [facility] [address] [address] [address] Scooby Irvin EGFR-AF TURKISH >60 Normal >=60 [facility] Comment on above: Performed By: #### L IPID, CMP, TSH #### [facility] [address] [address] [address] Scooby Irvin EGFR-NON AF TURKISH >60 Normal >=60 [facility] Comment on above: Performed By: #### L IPID, CMP, TSH #### [facility] [address] [address] [address] Scooby Irvin Globulin (S) [Mass/Vol] 3.8 g/dL Normal [facility] Comment on above: Performed By: #### L IPID, CMP, TSH #### [facility] [address] [address] [address] Scooby Irvin Glucose [Mass/Vol] 112 mg/dL Critically high 74-106 [facility] Comment on above: Performed By: #### L IPID, CMP, TSH #### [facility] [address] [place] [address] Dr. Scooby Irvin Potassium [Moles/Vol] 4.0 mmol/L Normal 3.4-5.0 [facility] Comment on above: Performed By: #### L IPID, CMP, TSH #### [facility] [address] [place] [address] Dr. Scooby Irvin Protein [Mass/Vol] 7.8 g/dL Normal 6.1-8.2 [facility] Comment on above: Performed By: #### L IPID, CMP, TSH #### [facility] [address] [address] [address] Scooby Irvin Sodium [Moles/Vol] 139 mmol/L Normal 137-145 [facility] Comment on above: Performed By: #### L IPID, CMP, TSH #### [facility] [address] [place] [address] Dr. Scooby Irvin Urea nitrogen [Mass/Vol] 15.0 mg/dL Normal 7.0-17.0 [facility] Comment on above: Performed By: #### L IPID, CMP, TSH #### [facility] [address] [place], [place] [id number] Dr. Scooby Irvin Urea nitrogen/Creatinine [Mass ratio] 18.1 mg/mg Normal [facility] Comment on above: Performed By: #### L IPID, CMP, TSH #### [facility] [address] [place] [address] Dr. Scooby Irvin TSHon 03-09-2021 TSH 2.761 uIU/mL Normal 0.470-4.680 [facility] Comment on above: Performed By: #### L IPID, CMP, TSH #### [facility] [address] [address] [address] Scooby Irvin TSH RANGE SEE BELOW Normal [facility] Comment on above: Result Comment: <0.3 4 UIU/ml HYPERTHYROID 0.34-5.60 UIU/ml EUTHYROID >5.60 UIU/ml HYPOTHYROID Performed By: #### L IPID, CMP, TSH #### [facility] [address] [place] [address] Dr. Scooby Irvin Vital Signs Date Time Vital Sign Value Performing Clinician Facility 09-04-2022 09:00-0400 Body height 140.97 cm Danyell Morales Other [facility] 09-04-2022 09:00-0400 Body mass index (BMI) [Ratio] 36.74 kg/m2 Danyell Morales Other [facility] 09-04-2022 09:00-0400 Body weight 73.03 kg Danyell Morales Other [facility] 09-04-2022 09:00-0400 Diastolic blood pressure 78 mm[Hg] Daynell Morales Other [facility] Other 09-04-2022 09:00-0400 SaO2% (BldA) [Mass fraction] 97 % Danyell Morales Other [facility] 09-04-2022 09:00-0400 Systolic blood pressure 132 mm[Hg] Danyell Morales Other [facility] Other 03-01-2022 10:30-0500 Body height 140.97 cm Danyell Morales Other [facility] Other 03-01-2022 10:30-0500 Body mass index (BMI) [Ratio] 36.06 kg/m2 Danyell Morales Other [facility] 03-01-2022 10:30-0500 Body weight 71.67 kg Danyell Morales Other [facility] Other 03-01-2022 10:30-0500 Diastolic blood pressure 84 mm[Hg] Danyell Morales Other [facility] Other 03-01-2022 10:30-0500 SaO2% (BldA) [Mass fraction] 98 % Danyell Morales Other [facility] 03-01-2022 10:30-0500 Systolic blood pressure 132 mm[Hg] Danyell Morales Other [facility] 11-08-2021 10:17-0400 Diastolic blood pressure 74 mm[Hg] Farooq SALAM [facility] 11-08-2021 10:17-0400 Mean blood pressure 99 mm[Hg] Farooq SALAM [facility] 11-08-2021 10:17-0400 Systolic blood pressure 148 mm[Hg] Farooq SALAM [facility] 11-08-2021 10:15-0400 Blood Pressure Location Farooq SALAM [facility] 11-08-2021 10:15-0400 Diastolic blood pressure 95 mm[Hg] Farooq SALAM [facility] 11-08-2021 10:15-0400 Heart rate 78 /min Farooq SALAM [facility] 11-08-2021 10:15-0400 Respiratory rate 16 /min Farooq SALAM [facility] 11-08-2021 10:15-0400 Systolic blood pressure 159 mm[Hg] Farooq SALAM [facility] 05-10-2021 11:11-0400 Diastolic blood pressure 90 mm[Hg] Farooq SALAM [facility] 05-10-2021 11:11-0400 Systolic blood pressure 180 mm[Hg] Farooq SALAM [facility] Encounters Encounter Date Encounter Type Care Provider Facility Start: 08-26-2023 End: 08-26-2023 ambulatory JASIEL BRYANT Not Available Start: 03-07-2023 End: 03-07-2023 ambulatory Danyell Morales Other [facility] Start: 03-07-2023 Office outpatient vi sit 15 minutes Danyell Morales [facility] Start: 09-20-2022 End: 09-20-2022 ambulatory Danyell Morales Other [facility] Start: 09-20-2022 Telephone encounter Danyell Morales [facility] Start: 09-04-2022 End: 09-04-2022 ambulatory Danyell Morales Other [facility] Start: 09-04-2022 Patient encounter procedure Danyell Morales [facility] Start: 03-09-[address] DANYELL MORALES Facil ity:[facility] Start: 03-01-2022 End: 03-01-2022 ambulatory Danyell Morales Other [facility] Start: 03-01-2022 Office outpatient vi sit 15 minutes Danyell Morales [facility] Start: 01-18-2022 End: 01-19-[address] DANYELL MORALES Facility:[facility] Start: 11-21-2021 End: 11-22-2021 ambulatory [facility] ROA Facility:[facility] Start: 11-08-2021 End: 11-09-2021 ambulatory [facility] Facility:[facility] Start: 11-08-2021 End: 11-08-2021 [facility] [place] [facility] Start: 10-19-2021 End: 10-20-[address] DANYELL MORALES Facility:[facility] Start: 09-27-2021 End: 09-28-[address] DANYELL MORALES Facility:[facility] Start: 09-26-2021 End: 09-26-[address] DANYELL MORALES Facility:[facility] Start: 09-25-2021 Encounter for preprocedural laboratory examination DR RADHA IRAHETA [facility] Start: 09-22-2021 End: 09-23-[address] DANYELL MORALES Facility:[facility] Start: 09-22-2021 End: 09-23-2021 Encounter for preprocedural laboratory examination DR DANYELL MORALES Facility:[facility] Start: 09-11-[address] DANYELL MORALES Facil ity:[facility] Start: 09-06-2021 End: 09-07-2021 ambulatory ROBERTO MCNALLY Facility:[facility] Start: 08-30-2021 Adult health examination Malia Morales Other [facility] Other Start: 06-22-2021 End: 06-23-2021 ambulatory CAPRI ROA Facility:[facility] Start: 05-31-2021 End: 05-31-2021 ambulatory Luis Gutierrez [facility] Start: 05-26-2021 End: 05-26-2021 ambulatory Danyell Morales Facility:[facility] Start: 05-26-2021 End: 05-26-2021 Patient encounter procedure MD Cy Sears Work Phone: [id number] Start: 05-22-2021 End: 05-23-[address] DANYELL MORALES Facility:[facility] Start: 05-10-2021 ambulatory Farooq SALAM Facility:[facility] Start: 05-10-2021 End: 05-11-2021 [facility] Start: 05-10-2021 End: 05-10-2021 Patient encounter procedure [facility] SAL [facility] [place] [facility] Start: 05-09-2021 ambulatory Farooq SALAM Facility:[facility] Start: 05-04-2021 End: 05-04-2021 ambulatory Cy Sears Facility:[facility] Start: 05-04-2021 End: 05-04-2021 Patient encounter procedure MD Cy Sears Work Phone: [facility] Start: 04-20-2021 End: 04-21-2021 ambulatory FAROOQ SALAM Facility:[facility] Start: 04-05-2021 ambulatory Farooq SALAM Facility:[facility] Start: 04-01-2021 End: 04-02-[address] DANYELL MORALES Facility:[facility] Start: 03-23-2021 End: 03-24-[address] DANYELL MORALES Facility:[facility] Start: 03-09-2021 End: 03-10-[address] DANYELL MORALES Facility:[facility] Start: 01-24-2021 [facility] Date Procedure Procedure Detail Performing Clinician Start: 05-31-2021 Antibody screen Adeline Gutierrez Comment on above: Order Comment: Trans fuse now? N Result Comment: PERF ORMED BY: [facility] [address] [place] [address] PATHOLOGIST REGISTERED DIETICIAN TRICIA OSHEA M.D. Start: 02-16-2020 Colonoscopy w/biopsy single/multiple Farooqsabrina ROA Colonoscopy Capri ROA Screening for malign ant neoplasm of breast Danyell Morales Other Immunizations Immunization Date Immunization Notes Care Provider [facility] 12-09-2020 COVID-19 mRNA-1273 (Moderna) MD Cy Sears Work Phone: [facility] 11-15-2020 influenza virus vaccine, split virus (incl. purified surface antigen) Danyell Morales Other [facility] Other 11-11-2020 influenza virus vaccine, unspecified formulation Capri ROA [facility] 04-26-2020 COVID-19 mRNA-1273 (Moderna) MD Cy Sears Work Phone: [facility] 03-23-2020 COVID-19 mRNA-1273 (Moderna) MD Cy Sears Work Phone: [facility] 11-20-2019 influenza virus vaccine, split virus (incl. purified surface antigen) Danyell Morales Other [facility] Other 10-24-2016 influenza virus vaccine, split virus (incl. purified surface antigen) Danyell Morales Other [facility] Other 10-24-2016 pneumococcal conjuga te vaccine, 13 valent Danyell Morales Other [facility] Other 08-31-2014 tetanus toxoid, reduced diphtheria toxoid, and acellular pertussis vaccine, adsorbed Danyell Morales Other [facility] Other 11-30-2013 pneumococcal polysaccharide vaccine, 23 valent Danyell Morales Other [facility] Other NEGATED: Highlighted row has not occurred!11-08-2021 influenza virus vaccine, unspecified formulation Capri ROA [facility] Payers Date Payer Category Payer Self-pay [id number] 2021 Private Health Insurance [facility] [id number] 1959 Medicare [id number] 1959 Unknown [id number] 1948 Unknown [id number] 2.16.8 40.1.190361.3.579.2.727 1948 Unknown [id number] 2.16.8 40.1.885609.3.579.2.727 1948 Unknown [id number] 2.16.84 0.1.317064.3.579.2.727 1948 Unknown [id number] 2.16.84 0.1.843128.3.579.2.593 1948 Unknown [id number] 2.16.84 0.1.743635.3.579.2.593 1948 Unknown [id number] 2.16.84 0.1.991523.3.579.2.593 1948 Unknown [id number] 2.16.84 0.1.700506.3.579.2.593 1948 Unknown [id number] 2.16.84 0.1.744067.3.579.2.593 1948 Unknown [id number] 2.16.84 0.1.399876.3.579.2.593 1948 Unknown [id number] 2.16.84 0.1.525483.3.579.2.593 1948 Unknown [id number] 2.16.84 0.1.691833.3.579.2.593 1948 Unknown [id number] 2.16.84 0.1.381404.3.579.2.593 1948 Unknown [id number] 2.16.84 0.1.949074.3.579.2.593 1948 Unknown [id number] 2.16.84 0.1.244224.3.579.2.593 1948 Unknown [id number] 2.16.84 0.1.060566.3.579.2.593 1948 Unknown [id number] 2.16.84 0.1.113407.3.579.2.593 1948 Unknown [id number] 2.16.84 0.1.354389.3.579.2.593 1948 Unknown [id number] 2.16.84 0.1.129202.3.579.2.593 1948 Unknown [id number] 2.16.84 0.1.893838.3.579.2.593 1948 Unknown [id number] 2.16.84 0.1.065557.3.579.2.593 1948 Unknown [id number] 2.16.84 0.1.517191.3.579.2.1259 1948 Unknown [id number] 2.16.84 0.1.204278.3.579.2.1259 Medicare Self Pay [id number] Unknown [id number] 2.16.8 40.1.691291.3.579.2.531 Unknown [id number] 2.16.8 40.1.037483.3.579.2.531 Unknown [id number] 2.16.8 40.1.911472.3.579.2.531 Social History Date Type Detail Facility Tobacco smoking stat [facility] Unknown if ever smoked [facility] Work Phone: Start: 1950 Sex Assigned At Female F [facility] Start: 05-10-2021 End: 11-08-2021 Tobacco smoking status Heavy tobacco smoker (finding) [facility] Sex Assigned At Female [facility] Start: 05-26-2021 Tobacco smoking stat [facility] Smoker (finding) [facility] Functional Status Date Assessment Result Facility 11-08-2021 Functional Status N/A [facility] Clinical Notes 01-24-2021 to [...] continue to monitor through routine blood work [facility] Other 08-10-2023 Evaluation note* Encounter Date Diagnosis Assessment Notes Treatment Notes Treatment Clinical Notes Sep, Right foot pain (ICD-10 - M79.671) [facility] Other 07-25-2023 Evaluation note* Encounter Date Diagnosis [...] - E03.9) Chronic problem due for labs. [facility] Other 01-19-2023 Evaluation note* Encounter Date Diagnosis [...] - E78.5) Due for labs in summer. [facility] Other 12-08-2022 NoteCONSULTATION PROCEDURE DATE: 01/18/2022 PREOPERATIVE [...] will be followed up in the office.[facility] [id number] NoteCONSULTATION CONSULTATION DATE: 01/18/2022 HISTORY OF PRESENT [...] in three months' time, unless otherwise indicated.[facility] [id number] Evaluation + Plan note Diagnostic Tests Pending * CBC w/ Auto Diff 11/08/21 * Comprehensive Metabolic Panel 11/08/21 [facility] 09-08-2022 NoteCONSULTATION PROCEDURE DATE: 11/16/2021 [...] will be followed up in the office.[facility] 10-19-2021 NoteCONSULTATION CONSULTATION DATE: 10/19/2021 This [...] in three months' time unless otherwise indicated.[facility] [id number] NoteCONSULTATION CONSULTATION DATE: 09/06/2021 HISTORY OF PRESENT [...] 8/10. She has been following up with [facility] and had a benign fibroid tumor [...] procedure, and patient agrees to move forward.[facility] [id number] NoteCONSULTATION PAIN MANAGEMENT CONSULTATION HISTORY: This is [...] of care and will call when needed. [facility] Signed and Approved by: ROBERTO MCNALLY . 04/27/2021 12:41:00[facility]12-14-2021 Hospital Discharge instructions Follow Up Care 01/24/2021 10:04:31 With:JANINA ALARCON, Capri [facility], [facility] Address: [facility] [address] [place] [id number]- When:6 months [facility] Evaluation + Plan note Future Appointments Appointment Date:11/08/2021 10:15:00 AM Scheduled Provider:Capri ROA MD [facility] Appointment Type:[facility] Follow Up Future Scheduled Tests Laboratory* CBC w/ Indices 07/25/20 * Comprehensive Metabolic Panel 07/25/20 [facility] Evaluation noteNo assessment information available [facility] Work Phone: [facility] Narrative - Reported* Type Description Date Medical History GERD Medical History Hypothyroid Medical History Depression Surgical History Appendectomy Surgical History Tubal Ligation Surgical History Right carpal tunnel Surgical History Right finger Surgical History 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 Hospitalization History See past surgical hx [facility] Other Hospital course Narrative No data available for this section [facility] Hospital Discharge instructions No data available for this section [facility] Progress note No data available for this section [facility] Chief Complaint and Reason for Visit Chief Complaint Esophageal Mass Chief Complaint Esophageal Mass Right Substernal Thyroid Goiter Advance Directives No Advanced Directives Records Found Advance Directive Response Recorded Date/ Time Advance Directives No May 03, 2 022 9:14am Summary Purpose Family History No Family History Records Found Relationship Condition Age at Onset Recorded Date/T michelle father Diabetes mellitus Unknown Cerebrovascular accident (CVA) Unknown Reason for Referral Reason *FU 09/27 R foot p ain. Had Xray Diagnosis 1 Right foot pain (M79 .671) Referral Organization [facility] Referring Provider First Name Danyell Referring Provider Last Name Robin Referring Provider Specialty Family [facility] Referred Organization [facility] Referred Provider Seymour Johnson Referred Address [address], [place],[address] Referred Provider Specialty Podiatry - S urgical [...] section and content) DATE CREATED AUTHOR 05/23/2021 [facility] dical Specialist DATE CREATED AUTHOR AUTHOR'S ORGANIZ ATION 11/14/2021 [facility] DATE CREATED AUTHOR AUTHOR'S ORGANIZ ATION 01/23/2022 [facility] DATE CREATED AUTHOR AUTHOR'S ORGANIZ ATION 03/17/2022 [facility] DATE CREATED AUTHOR AUTHOR'S ANGEL KLINE 09/02/2023 [facility] dical Specialists EPIC REASON FOR VISIT (unrecogniz ed section and content) 6 MONTH CHECK UP Libby johnstonnancy xray6 month Follow up FOR RECORDS PERTAINING [...] BE BASED ON THE PRIMARY CLINICAL RECORDS. [employer] provides no warranty or guarantee of the accuracy or completeness of information in this document.
== END 2023-09-03 08:15 | disposition home or self-care (01) ==
LOC: MRI 08:14
PROVIDERS: PCP Family Medicine; Visit Provider Nurse Practitioner Family
DX: M23.92 Unspecified internal derangement of left knee (principal); M25.462 Effusion, left knee; M71.22 Synovial cyst of popliteal space [Baker], left knee
CPT/HCPCS: 73721

== ENCOUNTER 2023-09-10 12:15 | Outpatient (OUT) | payer MEDICARE, OTHER, SELFPAY ==
--- NOTE | 2023-09-10 | CONS_ITS ---
CONSULTATION DATE: 09/10/2023 TO: Danyell Kelly M.D., Seymour Johnson, VELASQUEZ HISTORY: Patient returns today complaining of pain in her right foot area, in the area of her right lateral ankle. She describes the pain as being 4-7/10 pain, a deep, aching pain which is increased with activities such as standing, walking and performing transitioning maneuvers. She feels most comfortable in the semi-recumbent position. Denies any change in bowel and bladder habits, but reports that she has been having some weakness of her right lower extremity. EXAM: Her examination is notable for the patient having mild hypoesthesia along the right L4 dermatome, weakness of the right quadriceps and anterior tibialis, depressed right patellar reflex. Her strength is 3/5 in her right quadriceps and her right anterior tibialis. Straight leg raise was equivocal positive at 90 degrees. She had no clinical myelopathy involving the lower extremities. She also presents with significant myofascial spasm of the right gastrocnemius muscle. IMPRESSION: Our impression is patient chronic pain secondary to right L4 radiculopathy. RECOMMENDATIONS: I recommend she undergo lumbosacral plain films, as well as lumbosacral MRI, aquatic therapy. Patient is on Zonegran 50 mg at h.s. and also asked to maintain baclofen 10 mg pills, half a pill to one pill at bedtime, and will see the patient back in the office in 4-6 weeks, sooner if needed. As part of providing excellent, safe, comprehensive care, the following was completed at our patient's visit: 1. A medication reconciliation and review to ensure accurate knowledge of current/active medications, including asking our patients to inform us about any [id number] medications or herbal remedies/nutritional supplements/alternative remedies. 2. A review to specifically ensure our patients have had annual screening for: elevated body mass index (BMI, see intake chart for exact total), tobacco use, screening for depression, and screening for unhealthy alcohol use. When screening is concerning, patients are provided with education and the specific recommendation to discuss the concerning health issue and treatment options with their primary care provider. LAINEY
--- OUTSIDE RECORDS SUMMARY | 2023-09-10 12:30 | XMS_ITS | CCD ---
Author Organization [facility] Care Team Providers Care Air Intercept Controller Supervisor Name Role Phone MD Cy Sears Attending Provider [phone] MD Danyell Morales Primary Care Provider DANYELL MORALES Primary Care Physician DO Luis Gutierrez Attending Provider [phone] [address]ri ROA Attending Unavailable SALAM, Capri Attending [...] Unavailable MORALES, DR DANYELL Solis Attending Unavailable [place], DR LONNY Wiggins Consulting Unavailable MORALES, DR [...] Facility (4 sources) varenicline Drug Allergy Unknown [facility] Other Medications Current Medications Medication Drug Class(es) [...] PO Daily May 26, 2021 2:53pm NuLYTELY Lawrence oral powder for reconstitution (1 source) Start: 01-28-2020 take 1 dose by mouth once NuLYTELY Lawrence oral powder for reconstitution See Instructions, 1 [...] Once a day Active polyethylene glycol 3350 811716 mg / potassium chloride 1480 mg / sodium bicarbonate 5720 mg / sodium chloride 28822 mg powder for oral solution (1 source) Osmotic Laxative Start: 01-28-2020 take 1 dose by mouth once NuLYTELY Lawrence oral powder for reconstitution See Instructions, 1 [...] TID, # 180 tab(s), Refills(s) 11, Pharmacy: [facility]/pharmacy #[id number], 150, cm, 05/10/21 11:13:00 EDT, Height/Length [...] 11-21-2021 BASO # 0.1 103/ul Normal 0.0-0.1 [facility] Comment on above: Performed By: #### C BC #### [facility] [address] [place] [address] Dr. Scooby Irvin Basophils/100 WBC (Bld) 0.5 % Normal 0.2-2.0 [facility] Comment on above: Performed By: #### C BC #### [facility] [address] [place] [address] Dr. Scooby Irvin EO # 0.0 103/ul Normal 0.0-0.7 [facility] Comment on above: Performed By: #### C BC #### [facility] [address] [place] [address] Dr. Scooby Irvin Eosinophils/100 WBC (Bld) 0.1 % Critically low 0.9-7.0 [facility] Comment on above: Performed By: #### C BC #### [facility] [address] [place] [address] Dr. Scooby Irvin Erythrocyte distribution width (RBC) [Ratio] 15.1 % Critically high 11.0-15.0 [facility] Comment on above: Performed By: #### C BC #### [facility] [address] [place] [address] Dr. Scooby Irvin Hematocrit (Bld) [Volume fraction] 39.4 % Normal 36.0-48.0 [facility] Comment on above: Performed By: #### C BC #### [facility] [address] [place] [address] Dr. Scooby Irvin Hemoglobin (Bld) [Mass/Vol] 12.6 g/dL Normal 12.0-16.0 [facility] Comment on above: Performed By: #### C BC #### [facility] [address] [place] [address] Dr. Scooby Irvin IG # 0.05 10e3/ul Critically high 0.00-0.03 [facility] Comment on above: Performed By: #### C BC #### [facility] [address] [place] [address] Dr. Scooby Irvin IG % 0.5 % Normal 0.0-0.5 [facility] Comment on above: Performed By: #### C BC #### [facility] [address] [place] [address] Dr. Scoboy Irvin LYMPH # 1.3 103/ul Normal 1.2-3.8 [facility] Comment on above: Performed By: #### C BC #### [facility] [address] [place] [address] Dr. Scooby Irvin Lymphocytes/100 WBC (Bld) 13.2 % Critically low 20.5-60.0 [facility] Comment on above: Performed By: #### C BC #### [facility] [address] [place] [address] Dr. Scooby Irvin MANUAL DIFF REQ NO Normal [facility] Comment on above: Performed By: #### C BC #### [facility] [address] [place] [address] Dr. Scooby Irvin MCH (RBC) [Entitic mass] 30.0 pg Normal 26.7-34.0 [facility] Comment on above: Performed By: #### C BC #### [facility] [address] [place] [address] Dr. Scooby Irvin MCHC (RBC) [Mass/Vol] 32.0 g/dL Normal 29.9-35.2 [facility] Comment on above: Performed By: #### C BC #### [facility] [address] [place] [address] Dr. Scooby Irvin MCV (RBC) [Entitic vol] 93.8 fL Normal 81.0-99.0 [facility] Comment on above: Performed By: #### C BC #### [facility] [address] [place] [address] Dr. Scooby Irvin MONO # 0.7 103/ul Normal 0.3-0.8 [facility] Comment on above: Performed By: #### C BC #### [facility] [address] [place] [address] Dr. Scooby Irvin Monocytes/100 WBC (Bld) 7.2 % Normal 1.7-12.0 [facility] Comment on above: Performed By: #### C BC #### [facility] [address] [place] [address] Dr. Scooby Irvin NEUT # 7.5 103/ul Critically high 1.4-6.5 [facility] Comment on above: Performed By: #### C BC #### [facility] [address] [place] [address] Dr. Scooby Irvin Neutrophils/100 WBC (Bld) 78.5 % Critically high 43.0-75.0 [facility] Comment on above: Performed By: #### C BC #### [facility] [address] [place] [address] Dr. Scooby Irvin Platelet mean volume (Bld) [Entitic vol] 9.9 fL Normal 9.5-13.5 [facility] Comment on above: Performed By: #### C BC #### [facility] [address] [place] [address] Dr. Scooby Irvin PLT 230 103/ul Normal 150-450 [facility] Comment on above: Performed By: #### C BC #### [facility] [address] [place] [address] Dr. Scooby Irvin RBC 4.20 106/ul Normal 4.20-5.40 [facility] Comment on above: Performed By: #### C BC #### [facility] [address] [place] [address] Dr. Scooby Irvin WBC 9.5 103/ul Normal 4.0-11.0 [facility] Comment on above: Performed By: #### C BC #### [facility] [address] [place] [address] Dr. Scooby Irvin PROF 14(COMP METB)on 022 Albumin [Mass/Vol] 3.9 g/dL Normal 3.4-5.0 [facility] Comment on above: Performed By: #### C BC #### [facility] [address] [place] [address] Dr. Scooby Irvin Albumin/Globulin [Mass ratio] 1.0 {ratio} Normal [facility] Comment on above: Performed By: #### C BC #### [facility] [address] [place] [address] Dr. Scooby Irvin ALP [Catalytic activity/Vol] 87 U/L Normal 46-116 [facility] Comment on above: Performed By: #### C BC #### [facility] [address] [place] [address] Dr. Scooby Irvin ALT [Catalytic activity/Vol] 29 U/L Normal 14-59 [facility] Comment on above: Performed By: #### C BC #### [facility] [address] [place] [address] Dr. Scooby Irvin Anion gap [Moles/Vol] 14.1 mmol/L Normal [facility] Comment on above: Performed By: #### C BC #### [facility] [address] [address] [address] Scooby Irvin AST [Catalytic activity/Vol] 38 U/L Critically high 15-37 [facility] Comment on above: Performed By: #### C BC #### [facility] [address] [address] [address] Scooby Irvin Bilirubin [Mass/Vol] 0.5 mg/dL Normal 0.2-1.0 [facility] Comment on above: Performed By: #### C BC #### [facility] [address] [address] [address] Scooby Irvin Calcium [Mass/Vol] 9.2 mg/dL Normal 8.5-10.1 [facility] Comment on above: Performed By: #### C BC #### [facility] [address] [address] [address] Scooby Irvin Chloride [Moles/Vol] 102 mmol/L Normal 98-107 [facility] Comment on above: Performed By: #### C BC #### [facility] [address] [address] [address] Scooby Irvin CO2 [Moles/Vol] 25.7 mmol/L Normal 21.0-32.0 [facility] Comment on above: Performed By: #### C BC #### [facility] [address] [address] [address] Scooby Irvin Creatinine [Mass/Vol] 0.76 mg/dL Normal 0.55-1.02 [facility] Comment on above: Performed By: #### C BC #### [facility] [address] [place] [address] Dr. Scooby Irvin EGFR-AF ZAMBIAN >60 Normal >=60 [facility] Comment on above: Performed By: #### C BC #### [facility] [address] [address] [address] Scooby Irvin EGFR-NON AF ZAMBIAN >60 Normal >=60 [facility] Comment on above: Performed By: #### C BC #### [facility] [address] [address] [address] Scooby Irvin Globulin (S) [Mass/Vol] 3.8 g/dL Normal [facility] Comment on above: Performed By: #### C BC #### [facility] [address] [address] [address] Scooby Irvin Glucose [Mass/Vol] 104 mg/dL Normal 74-106 [facility] Comment on above: Performed By: #### C BC #### [facility] [address] [address] [address] Scooby Irvin Potassium [Moles/Vol] 4.8 mmol/L Normal 3.5-5.1 [facility] Comment on above: Performed By: #### C BC #### [facility] [address] [address] [address] Scooby Irvin Protein [Mass/Vol] 7.7 g/dL Normal 6.4-8.2 [facility] Comment on above: Performed By: #### C BC #### [facility] [address] [address] [address] Scooby Irvin Sodium [Moles/Vol] 137 mmol/L Normal 136-145 [facility] Comment on above: Performed By: #### C BC #### [facility] [address] [address] [address] Scooby Irvin Urea nitrogen [Mass/Vol] 9.0 mg/dL Normal 7.0-18.0 [facility] Comment on above: Performed By: #### C BC #### [facility] [address] [address] [address] Scooby Irvin Urea nitrogen/Creatinine [Mass ratio] 11.8 mg/mg Normal [facility] Comment on above: Performed By: #### C BC #### [facility] [address] [address] [address] Scooby Irvin Gastroenterology Office/Clin ic Noteon [...] done for her thyroid and cholesterol at [facility]. Alexandra denies having any other GI concerns [...] Phani Celeste to record this visit. JASS electrical system specialist and provider reviewed before signing. JASS: [...] 1 tab(s), Oral, TID levothyroxine, Daily NuLYTELY Lawrence oral powder for reconstitution, See Instructions omeprazole, [...] influenza virus vaccine, inactivated 11/2020 Recorded Normal [facility] Comment on above: Result Comment: Elec [...] omeprazole polyethylene glycol 3350 with electrolytes (NuLYTELY Lawrence oral powder for reconstitution) simvastatin sulfasalazine (sulfasalazine [...] Unchanged polyethylene glycol 3350 with electrolytes (NuLYTELY Lawrence oral powder for reconstitution) See instructions PER [...] Chronic pancolonic ulcerative colitis Normal [facility] LIPID PROFILEon 09-27-2021 CHOL-HDL RATIO NORM SEE BELOW Normal [facility] Comment on above: Result Comment: 3.3 - 4.4 LOW RISK 4.4 - 7.1 AVERAGE RISK 7.1 - 11.0 MODERATE RISK >11.0 HIGH RISK Performed By: #### C MP, LIPID #### [facility] [address] [address] [address] Scooby Irvin Cholesterol [Mass/Vol] 235 mg/dL Critically high <=200 [facility] Comment on above: Performed By: #### C MP, LIPID #### [facility] [address] [address] [address] cSooby Irvin Cholesterol in HDL [Mass/Vol] 65 mg/dL Critically high 40-60 [facility] Comment on above: Performed By: #### C MP, LIPID #### [facility] [address] [address] [address] Scooby Irvin Cholesterol in LDL [Mass/Vol] 156.8 mg/dL Normal [facility] Comment on above: Performed By: #### C MP, LIPID #### [facility] [address] [address] [address] Scooby Irvin Cholesterol.total/Rachel sterol in HDL [Mass ratio] 3.6 {ratio} Normal [facility] Comment on above: Performed By: #### C MP, LIPID #### [facility] [address] [place] [address] Dr. Scooby Irvin HDL NORMAL > or = 60 mg/dl - LOW CARDIOVASCULAR RISK <40 mg/dl - HIGH CARDIOVASCULAR RISK Normal [facility] Comment on above: Performed By: #### C MP, LIPID #### [facility] [address] [address] [address] Scooby Irvin LDL CALC NORMAL SEE BELOW Normal [facility] Comment on above: Result Comment: <100 mg/dl OPTIMAL 100 - 129 mg/dl NEAR OR ABOVE OPTIMAL 130 - 159 mg/dl BORDERLINE HIGH 160 - 189 mg/dl HIGH >190 mg/dl VERY HIGH Performed By: #### C MP, LIPID #### [facility] [address] [place] [address] Dr. Scooby Irvin Triglyceride [Mass/Vol] 66 mg/dL Normal <=150 [facility] Comment on above: Performed By: #### C MP, LIPID #### [facility] [address] [place] [address] Dr. Scooby Irvin VLDL CALC 13.2 mg/dL Normal [facility] Comment on above: Performed By: #### C MP, LIPID #### [facility] [address] [place] [address] Dr. Scooby Irvin PROF 14(COMP METB)on 022 Albumin [Mass/Vol] 3.9 g/dL Normal 3.4-5.0 [facility] Comment on above: Performed By: #### C MP, LIPID #### [facility] [address] [place] [address] Dr. Scooby Irvin Albumin/Globulin [Mass ratio] 1.1 {ratio} Normal [facility] Comment on above: Performed By: #### C MP, LIPID #### [facility] [address] [place] [address] Dr. Scooby Irvin ALP [Catalytic activity/Vol] 87 U/L Normal 46-116 [facility] Comment on above: Performed By: #### C MP, LIPID #### [facility] [address] [place] [address] Dr. Scooby Irvin ALT [Catalytic activity/Vol] 27 U/L Normal 14-59 [facility] Comment on above: Performed By: #### C MP, LIPID #### [facility] [address] [place] [address] Dr. Scooby Irvin Anion gap [Moles/Vol] 16.9 mmol/L Normal [facility] Comment on above: Performed By: #### C MP, LIPID #### [facility] [address] [place] [address] Dr. Scooby Irvin AST [Catalytic activity/Vol] 21 U/L Normal 15-37 [facility] Comment on above: Performed By: #### C MP, LIPID #### [facility] [address] [place] [address] Dr. Scooby Irvin Bilirubin [Mass/Vol] 0.4 mg/dL Normal 0.2-1.0 [facility] Comment on above: Performed By: #### C MP, LIPID #### [facility] [address] [place] [address] Dr. Scooby Irvin Calcium [Mass/Vol] 8.7 mg/dL Normal 8.5-10.1 [facility] Comment on above: Performed By: #### C MP, LIPID #### [facility] [address] [place] [address] Dr. Scooby Irvin Chloride [Moles/Vol] 102 mmol/L Normal 98-107 [facility] Comment on above: Performed By: #### C MP, LIPID #### [facility] [address] [place] [address] Dr. Scooby Irvin CO2 [Moles/Vol] 22.0 mmol/L Normal 21.0-32.0 [facility] Comment on above: Performed By: #### C MP, LIPID #### [facility] [address] [place] [address] Dr. Scooby Irvin Creatinine [Mass/Vol] 0.73 mg/dL Normal 0.55-1.02 [facility] Comment on above: Performed By: #### C MP, LIPID #### [facility] [address] [place] [address] Dr. Scooby Irvin EGFR-AF ZAMBIAN >60 Normal >=60 [facility] Comment on above: Performed By: #### C MP, LIPID #### [facility] [address] [address] [address] Scooby Irvin EGFR-NON AF ZAMBIAN >60 Normal >=60 [facility] Comment on above: Performed By: #### C MP, LIPID #### [facility] [address] [address] [address] Scooby Irvin Globulin (S) [Mass/Vol] 3.7 g/dL Normal T [facility] Comment on above: Performed By: #### C MP, LIPID #### [facility] [address] [address] [address] Scooby Irvin Glucose [Mass/Vol] 105 mg/dL Normal 74-106 [facility] Comment on above: Performed By: #### C MP, LIPID #### [facility] [address] [place] [address] Dr. Scooby Irvin Potassium [Moles/Vol] 3.9 mmol/L Normal 3.5-5.1 [facility] Comment on above: Performed By: #### C MP, LIPID #### [facility] [address] [place] [address] Dr. Scooby Irvin Protein [Mass/Vol] 7.6 g/dL Normal 6.4-8.2 [facility] Comment on above: Performed By: #### C MP, LIPID #### [facility] [address] [place] [address] Dr. Scooby Irvin Sodium [Moles/Vol] 137 mmol/L Normal 136-145 [facility] Comment on above: Performed By: #### C MP, LIPID #### [facility] [address] [address] [address] Scooby Irvin Urea nitrogen [Mass/Vol] 11.0 mg/dL Normal 7.0-18.0 [facility] Comment on above: Performed By: #### C MP, LIPID #### [facility] [address] [address] [address] Scooby Irvin Urea nitrogen/Creatinine [Mass ratio] 15.1 mg/mg Normal [facility] Comment on above: Performed By: #### C MP, LIPID #### [facility] [address] [place] [address] Dr. Scooby KIRKLANDon 09-27-2021 TSH 2.198 uIU/mL Normal 0.358-3.740 [facility] Comment on above: Performed By: #### T SH #### [facility] [address] [place] [address] Dr. Scooby Irvin Covid-19 PCR ([facility])on 09-11 SARS-CoV-2 (COVID-19) RNA ADELITA+probe Ql (Unsp spec) Not detected Normal NOT DETECTED [facility] Comment on above: Result Comment: This test is not yet approved or cleared by the [place] FDA. When there are no FDA-approved or cleared tests available, and other criteria are met, FDA can make tests available under an emergency access mechanism called an Emergency Use Authorization (EUA). The EUA for this test is supported by the [place] of Health and Human Service's (HHS's) declaration [...] SARS-CoV-2. Performed By: #### C BC #### [facility] [address] [place] [address] Scooby Irvin TSHon 06-22-2021 TSH 2.326 uIU/mL Normal 0.358-3.740 [facility] Comment on above: Performed By: #### C BC #### [facility] [address] [place] [address] Dr. Scooby Irvin TSH RANGE SEE BELOW Normal [facility] Comment on above: Result Comment: <0.3 4 UIU/ml HYPERTHYROID 0.34-5.60 UIU/ml EUTHYROID >5.60 UIU/ml HYPOTHYROID Performed By: #### C #### [facility] [address] [place] [address] [address] Scooby Irvin ABO/Rh Retypeon 05-31-2021 ABO/RH Recheck Result Positive Normal [facility] Comment on above: Result Comment: PERF ORMED BY: [facility] [place] [address] PATHOLOGIST MACHINE CLERICAL VERIFIER TRICIA Yin 05-31-2021 L Specimen: [id number] Received: 05/31/21 Status: LIDIA Miriam Num: [id number] Spec Type: Surgical Subm Dr: Luis Gutierrez DO Tissues: A Parathyroid Gland (R/O PARATHYROID) B THYROID - Lobe (R SUBSTERNAL THYROID) Procedures: HE Stain/8, Gross/Micro L5, Gross/Micro L4 Patient Age/Sex Location Account Attending Physician Alexandra Cervantes 71/F [place] [id number] Luis Gutierrez, SPEC NUM: [id number] RECD: 05/31/21 STATUS: LIDIA PINEDA NUM: [id number] KATHY: 05/31/21- SUBM DR: Luis Gutierrez DO [...] Specimen: Received: 05/31/21 Status: LIDIA Pineda Num: [id number] Spec Type: Surgical Subm Dr: Luis Gutierrez DO Tissues: A Parathyroid Gland (R/O PARATHYROID) B THYROID - Lobe (R SUBSTERNAL THYROID) Procedures: HERBERT Stain/8, Gross/Micro L5, Gross/Micro L4 Patient: Jey Cervantesha [id number] (Continued) Specimen: Received: 05/31/21 (Continued) Gross Description (Continued) Signed (signatur e on file) Tricia Oshea MD 06/01/211912 Specimen: Received: 05/31/21 Status: LIDIA Pineda Num: [id number] Spec Type: Surgical Subm Dr: Luis Gutierrez, Tissues: A Parathyroid Gland (R/O PARATHYROID) B THYROID - Lobe (R SUBSTERNAL THYROID) Procedures: HE Stain/8, Gross/Micro L5, Gross/Micro L4 Patient: Alexandra Cervantes [id number] (Continued) Specimen: Received: 05/31/21 (Continued) Gross Description [...] microscopic findings support the above pathologic diagnosis. [id number], [id number], [id number] Specimen: [id number] Received: (more content not included)... Normal [facility] LeukoReduced RBCon 2 LeukoReduced RBC READY Normal [facility] Type and Screenon 05-31-2021 ABO and Rh group Nom (Bld) Blood group O Rh(D) positive Normal [facility] Comment on above: Order Comment: Trans fuse now? N Result Comment: PERF ORMED BY: [place] [address] PATHOLOGIST MACHINE CLERICAL VERIFIER TRICIA OSHEA M.D. Basic Metabolic Panelon 05-12 Calcium [Mass/Vol] 9.5 mg/dL Normal 8.2-10.2 [facility] Comment on above: Result Comment: PERF ORMED BY: [facility] [address] [place] [address] PATHOLOGIST MACHINE CLERICAL VERIFIER TRICIA OSHEA M.D. Performed By: #### C BC, BMP #### [facility] [address] [place], [place] [id number] [facility] Chloride [Moles/Vol] 105 mmol/L Normal 95-114 [facility] Comment on above: Performed By: #### C BC, BMP #### [facility] [address] CO2 [Moles/Vol] 23.0 mmol/L Normal 22.0-30.0 [facility] Comment on above: Performed By: #### C BC, BMP #### [address] Creatinine [Mass/Vol] 0.66 mg/dL Normal 0.44-1.03 [facility] Comment on above: Performed By: #### C BC, BMP #### [address] Estimated GFR ( Traci > 60 Normal [facility] Comment on above: Result Comment: GFR estimated reference range: According to KDOQI guidelines, <60 ml/min/1.73m2 is sufficient to diagnose a patient with chronic kidney disease. Performed By: #### C BC, BMP #### [address] Estimated GFR (Non- Am > 60 Normal [facility] Comment on above: Performed By: #### C BC, BMP #### [address] Glucose [Mass/Vol] 89 mg/dL Normal 70-100 [facility] Comment on above: Result Comment: [place] om Glucose Reference Range is dependent on time and content of last meal. Glucose of more than 200 mg/dL in a nonstressed, ambulatory subject supports the diagnosis of Diabetes Mellitus. ADA recommended reference range Performed By: #### C BC, BMP #### [place] [address] [place] Potassium [Moles/Vol] 4.0 mmol/L Normal 3.5-5.1 [facility] Comment on above: Performed By: #### C BC, BMP #### [place] [address] [place] Sodium [Moles/Vol] 137 mmol/L Normal 136-146 [facility] Comment on above: Performed By: #### C BC, BMP #### [address] Urea nitrogen [Mass/Vol] 10 mg/dL Normal 9-23 [facility] Comment on above: Performed By: #### C BC, [facility] #### [facility] [address] Basophils Auto (Bld) [#/Vol] Ordered By: Luis Gutierrez on 05-26-2021 Basophils (Bld) [#/Vol] 0.1 10*3/uL 0.0-0.2 [facility] Basophils/100 WBC Auto (Bld) Ordered By: Luis Gutierrez on 05-26-2021 Basophils/100 WBC (Bld) 0.9 % F [facility] Blood hemoglobin measurement (mass/volume)Ordered By: Luis Gutierrez on 05-26-2021 Hemoglobin (Bld) [Mass/Vol] 12.4 g/dL 11.8-15.4 [facility] Blood leukocytes automated c ount (number/volume)Ordered By: Luis Gutierrez on 05-26-2021 WBC (Bld) [#/Vol] 8.8 10*3/uL 4.5-11.0 [facility] COVID-19 FRMCon 05-26-2021 SARS-CoV-2 (COVID-19) RNA ADELITA+probe Ql (Unsp spec) Negative Normal Negative [facility] Comment on above: Order Comment: Healt hcare Worker?: N Result Comment: Testing for SARS-CoV-2 by RT-PCR This test was developed and its performance characteristics determined by [employer]) and validated at the [facility]. This test has not been FDA [...] is terminated or revoked sooner. PERFORMED BY: [place] [address] PATHOLOGIST MACHINE CLERICAL VERIFIER TRICIA OSHEA M.D. Performed By: #### C OVID 19 [facility] #### [facility] [address] COVID-19 Positive/NegativeOr dered By: Luis Gutierrez on 05-26-2021 SARS-CoV-2 (COVID-19) N gene ADELITA+probe Ql (Resp) Negative Negative [facility] Comment on above: Testing for SARS-CoV -2 by RT-PCRThis test was developed and its performance characteristics determined by [employer] and validated at the [facility]. This test has not been FDA [...] 05-26-2021 Calcium [Mass/Vol] 9.4 mg/dL Normal 8.2-10.2 [facility] Comment on above: Performed By: #### C A, TSH3, PTH #### [facility] [address] [place] [address] Complete Blood Count Auto Di ffon 05-26-2021 Basophils (Bld) [#/Vol] 0.1 10*3/uL Normal 0.0-0.2 [facility] Comment on above: Result Comment: PERF ORMED BY: [place] [address] PATHOLOGIST MACHINE CLERICAL VERIFIER TRICIA OSHEA M.D. Performed By: #### C BC, BMP #### [address] Basophils/100 WBC (Bld) 0.9 % Normal . F [facility] Comment on above: Performed By: #### C BC, BMP #### [address] Eosinophils (Bld) [#/Vol] 0.0 10*3/uL Normal 0.0-0.45 [facility] Comment on above: Performed By: #### C BC, BMP #### [address] Eosinophils/100 WBC (Bld) 0.2 % Normal . [facility] Comment on above: Performed By: #### C BC, BMP #### [address] Erythrocyte distribution width (RBC) [Ratio] 16.1 % High 11.9-15.3 [facility] Comment on above: Performed By: #### C BC, BMP #### [address] Hematocrit (Bld) [Volume fraction] 37.5 % Normal 34.0-46.4 [facility] Comment on above: Performed By: #### C BC, BMP #### [address] Hemoglobin (Bld) [Mass/Vol] 12.4 g/dL Normal 11.8-15.4 [facility] Comment on above: Performed By: #### C BC, BMP #### [place] [address] [place] Lymphocytes (Bld) [#/Vol] 1.4 10*3/uL Normal 1.00-4.8 [facility] Comment on above: Performed By: #### C BC, BMP #### [place] [address] [place] Lymphocytes/100 WBC (Bld) 15.8 % Normal . [facility] Comment on above: Performed By: #### C BC, BMP #### [facility] [address] MCH (RBC) [Entitic mass] 29.2 pg Normal 24.7-34.3 [facility] Comment on above: Performed By: #### C BC, BMP #### [facility] [address] MCV (RBC) [Entitic vol] 88.3 fL Normal 80-100 [facility] Comment on above: Performed By: #### C BC, BMP #### [facility] [address] Mean Corpuscular HGB Conc 33.1 g/dL Normal 32.0-35.0 [facility] Comment on above: Performed By: #### C BC, BMP #### [facility] [address] [place] [address] [place] Monocytes (Bld) [#/Vol] 0.7 10*3/uL Normal 0.0-0.8 [facility] Comment on above: Performed By: #### C BC, BMP #### [facility] [address] [place] [address] [place] Monocytes/100 WBC (Bld) 7.7 % Normal . F [facility] Comment on above: Performed By: #### C BC, BMP #### [facility] [address] [place] [address] [place] Neutrophils (Bld) [#/Vol] 6.7 10*3/uL Normal 1.8-7.7 [facility] Comment on above: Performed By: #### C BC, BMP #### [facility] [address] [place] [address] [place] Neutrophils/100 WBC (Bld) 75.4 % Normal . [facility] Comment on above: Performed By: #### C BC, BMP #### [facility] [address] [place] [address] [place] Nucleated RBC/100 WBC (Bld) [Ratio] 0.1 % Normal 0-0.5 [facility] Comment on above: Performed By: #### C BC, BMP #### [facility] [address] Platelet mean volume (Bld) [Entitic vol] 8.6 fL Normal 6.3-10.7 [facility] Comment on above: Performed By: #### C BC, BMP #### [facility] [address] [place] [address] [place] Platelets (Bld) [#/Vol] 241 10*3/uL Normal 150-450 [facility] Comment on above: Performed By: #### C BC, BMP #### [facility] [address] RBC (Bld) [#/Vol] 4.24 10*6/uL Normal 3.60-5.00 [facility] Comment on above: Performed By: #### C BC, BMP #### [facility] [address] WBC (Bld) [#/Vol] 8.8 10*3/uL Normal 4.5-11.0 [facility] Comment on above: Performed By: #### C BC, BMP #### [facility] [address] Creatinine and Glomerular fi ltration rate.predicted panel (S/P/Bld)Ordered By: Luis Gutierrez on 05-26-2021 Creatinine [Mass/Vol] 0.66 mg/dL 0.44-1.03 [facility] ECG 12 lead ECGon 05-26-2021 ECG 12 lead ECG [facility] [address] [place] [address] Electrocardiograph Report Signed Patient: Alexandra Cervantes MR#: [id number] 2 : 1950 Acct:[id number] Age/Sex: 71 / F ADM Date: 05/26/21 Loc: Room: Type: [facility] Attending Dr: Luis Gutierrez DO Ordering Provider: [...] By Ashley Haines DO 05/27 0848 Normal [facility] Eosinophils Auto (Bld) [#/Vo l]Ordered By: Luis Gutierrez on 05-26-2021 Eosinophils (Bld) [#/Vol] 0.0 10*3/uL 0.0-0.45 [facility] Eosinophils/100 WBC Auto (Bl d)Ordered By: Luis Gutierrez on 05-26-2021 Eosinophils/100 WBC (Bld) 0.2 % [facility] Erythrocyte distribution wid th Auto (RBC) [Ratio]Ordered By: Luis Gutierrez on 05-26-2021 Erythrocyte distribution width (RBC) [Ratio] 16.1 % 11.9-15.3 [facility] Estimated glomerular filtrat ion rate (GFR) non- AmericanOrdered By: Luis Gutierrez on 05-26-2021 GFR/1.73 sq M.predicted among non-blacks MDRD (S/P/Bld) [Vol rate/Area] > 60 mL/Min [facility] Hematocrit Auto (Bld) [Volum e fraction]Ordered By: Luis Gutierrez on 05-26-2021 Hematocrit (Bld) [Volume fraction] 37.5 % 34.0-46.4 [facility] Laboratory - Hematology and Cell countsOrdered By: Luis Gutierrez on 05-26-2021 Nucleated RBC/100 WBC (Bld) [Ratio] 0.1 % 0-0.5 [facility] Lymphocytes Auto (Bld) [#/Vo l]Ordered By: Luis Gutierrez on 05-26-2021 Lymphocytes (Bld) [#/Vol] 1.4 10*3/uL 1.00-4.8 [facility] Lymphocytes/100 WBC Auto (Bl d)Ordered By: Luis Gutierrez on 05-26-2021 Lymphocytes/100 WBC (Bld) 15.8 % [facility] MCH Auto (RBC) [Entitic mass ]Ordered By: Luis Gutierrez on 05-26-2021 MCH (RBC) [Entitic mass] 29.2 pg 24.7-34.3 [facility] MCHC Auto (RBC) [Mass/Vol]Or dered By: Luis Gutierrez on 05-26-2021 MCHC (RBC) [Mass/Vol] 33.1 g/dL 32.0-35.0 [facility] MCV Auto (RBC) [Entitic vol] Ordered By: Luis Gutierrez on 05-26-2021 MCV (RBC) [Entitic vol] 88.3 fL 80-100 [facility] Monocytes Auto (Bld) [#/Vol] Ordered By: Luis Gutierrez on 05-26-2021 Monocytes (Bld) [#/Vol] 0.7 10*3/uL 0.0-0.8 [facility] Monocytes/100 WBC Auto (Bld) Ordered By: Luis Gutierrez on 05-26-2021 Monocytes/100 WBC (Bld) 7.7 % F [facility] Neutrophils Auto (Bld) [#/Vo l]Ordered By: Luis Gutierrez on 05-26-2021 Neutrophils (Bld) [#/Vol] 6.7 10*3/uL 1.8-7.7 [facility] Neutrophils/100 WBC Auto (Bl d)Ordered By: Luis Gutierrez on 05-26-2021 Neutrophils/100 WBC (Bld) 75.4 % [facility] No Panel InformationOrdered By: Luis Gutierrez on 05-26-2021 Estimated GFR () > 60 mL/Min [facility] Comment on above: GFR estimated refere nce range: According to KDOQI guidelines, <60 ml/min/1.73m2 is sufficient to diagnose a patient with chronic kidney disease. Pharmacy Creatinine Clearance (Chem N/A [facility] Parathyroid Hormone Intacton 05-26-2021 Parathyroid Hormone Intact 31.2 pg/mL Normal [facility] Comment on above: Result Comment: PERF ORMED BY: [place] [address] PATHOLOGIST MACHINE CLERICAL VERIFIER TRICIA OSHEA M.D. Performed By: #### C BC, BMP #### [address] Platelet mean volume Auto (B ld) [Entitic vol]Ordered By: Luis Gutierrez on 05-26-2021 Platelet mean volume (Bld) [Entitic vol] 8.6 fL 6.3-10.7 [facility] Platelets Auto (Bld) [#/Vol] Ordered By: Luis Gutierrez on 05-26-2021 Platelets (Bld) [#/Vol] 241 10*3/uL 150-450 [facility] RBC Auto (Bld) [#/Vol]Ordere d By: Luis Gutierrez on 05-26-2021 RBC (Bld) [#/Vol] 4.24 10*6/uL 3.60-5.00 [facility] Serum or plasma calcium joseph urement (mass/volume)Ordered By: Luis Gutierrez on 05-26-2021 Calcium [Mass/Vol] 9.4 mg/dL 8.2-10.2 [facility] Serum or plasma chloride liv surement (moles/volume)Ordered By: Luis Gutierrez on 05-26-2021 Chloride [Moles/Vol] 105 mmol/L 95-114 [facility] Serum or plasma glucose joseph urement (mass/volume)Ordered By: Luis Gutierrez on 05-26-2021 Glucose [Mass/Vol] 89 mg/dL 70-100 [facility] Comment on above: ADA recommended refe rence rangeRandom Glucose Reference Range is dependent on time and content of last meal. Glucose of more than 200 mg/dL in a nonstressed, ambulatory subject supports the diagnosis of Diabetes Mellitus. Serum or plasma intact parat hyroid hormone measurement (mass/volume)Ordered By: Luis Gutierrez on 05-26-2021 Parathyrin.intact [Mass/Vol] 31.2 pg/mL [facility] Serum or plasma potassium me asurement (moles/volume)Ordered By: Luis Gutierrez on 05-26-2021 Potassium [Moles/Vol] 4.0 mmol/L 3.5-5.1 [facility] Serum or plasma sodium measu rement (moles/volume)Ordered By: Luis Gutierrez on 05-26-2021 Sodium [Moles/Vol] 137 mmol/L 136-146 [facility] Serum or plasma total carbon dioxide measurement (moles/volume)Ordered By: Luis Gutierrez on 05-26-2021 CO2 [Moles/Vol] 23.0 mmol/L 22.0-30.0 [facility] Serum or plasma urea nitroge n measurement (mass/volume)Ordered By: Luis Gutierrez on 05-26-2021 Urea nitrogen [Mass/Vol] 10 mg/dL 11-03 [facility] TSH DL <= 0.005 mIU/L QnOrde red By: Luis Gutierrez on 05-26-2021 TSH Qn 0.86 m[IU]/L 0.45-5.33 [facility] Thyroid Stimulating Hormoneo n 05-26-2021 TSH Qn 0.86 m[IU]/L Normal 0.45-5.33 [facility] Comment on above: Performed By: #### C A, TSH3, PTH #### [address] MG MAMM SCREEN 3D GEORGES CADon 05-22-2021 MG MAMM SCREEN 3D GEORGES CAD Patient: ALEXANDRA CERVANTES Exam Date: 05/22/2021 : 1950 Gender:F Ordering : DR DANYELL MORALES M.D. Admission #: [id number] Family : Order #: [id number] CLICK HERE TO VIEW EXAM RADIOLOGY REPORT [...] Treatments None Family Cancers None LOCATION: [facility] BREAST COMPOSITION: Scattered areas fibroglandular density. [...] Killian MD on 05/22/2021 at 12:06 Normal [facility] CT Chest w/Contraston 2021 CT Chest w/Contrast Please see CT neck report dated: 05/17/2021. Report reported and signed by Valente Lion on 05/22/2021 1528 Normal [facility] CT Soft Tissue Neck w/ Contr [...] by Valente Lion on 05/22/2021 1528 Normal [facility] Senior Designer/Art Director Gastroenterology Office/Clin ic Noteon 05-11-2021 Gastroenterology Office/Clinic [...] after patient or guardian consented to allow [employer] to record this visit. JASS electrical system specialist and provider reviewed before signing. JASS: Lillie Santiago. Follow-up With When Contact Information JANINA ALARCON, LENORE Farooq MED Within 6 months [facility] [address] [place] [address]- Additional Instructions: Problem List/Past Medical History Ongoing [...] 1 tab(s), Oral, TID levothyroxine, Daily NuLYTELY Lawrence oral powder for reconstitution, See Instructions omeprazole, [...] influenza virus vaccine, inactivated 11/2020 Recorded Normal [facility] Comment on above: Result Comment: Elec [...] omeprazole polyethylene glycol 3350 with electrolytes (NuLYTELY Lawrence oral powder for reconstitution) simvastatin Procedures Performed Colonoscopy, flexible; with biopsy, single or multiple (02/16/2020), Colonoscopy. Discharge Vitals Blood Pressure 180/90 Height 150.0 cm Height 150 cm Weight 71.0 kg Weight 71 kg BMI 31.56 What to do next You Need to Schedule the Following Appointments Follow Up with JANINA ALARCON, LENORE Farooq, [facility] When: Within 6 months Where: [facility] [address] [place] [address]- Medications What How Much When Why Instructions Changed sulfasalazine (sulfasalazine 500 mg Tab) 2 Tablets By Mouth 3 times a day Pickup at [facility]pharmacy #[id number] Unchanged alprazolam By Mouth Contact prescribing [...] Unchanged polyethylene glycol 3350 with electrolytes (NuLYTELY Lawrence oral powder for reconstitution) See instructions PER PHYS INSRTUCTIONS Contact prescribing physician if questions or concerns Unchanged simvastatin By Mouth Contact prescribing physician if questions or concerns Pharmacy Information [facility]/pharmacy #[id number]: [address], [place] [id number] [phone] Allergies No Known Allergies Problems Ongoing - Any problem that you are currently receiving treatment for. Chronic pancolonic ulcerative colitis Normal [facility] [place] esophaguson 05-04-2021 [place] esophagus [facility] [address] [place] [address] Fluoroscopy Report Signed Patient: Alexandra Cervantes MR#: [id number] 2 : 1950 Acct:[id number] Age/Sex: 71 / F ADM Date: 05/04/21 Loc: XD Room: Type: [facility] Attending Dr: Cy Sears MD Ordering Provider: Cy Sears MD Date of Service: 05/04/21 [place] esophagus: K22.9 Copies to: Cy Sears MD [...] Kitchen Jr., M.D.05/04/2021 3:37 PM Dictation Location: [place] [address] Transcribed By: [facility] 05/04/211536 Dictated By: Selvin Kitchen Jr, MD 05/04/211531 Signed By: 05/04/21 1537 Normal [facility] Lab Reportson 04-26-2021 Lab Reports [id number] Normal [facility] CBC AUTO DIFFon 04-20-2021 BASO # 0.1 103/ul Normal 0.0-0.1 [facility] Comment on above: Performed By: #### C BC #### [facility] [address] [place] [address] Dr. Scooby Irvin Basophils/100 WBC (Bld) 0.4 % Normal 0.2-2.0 [facility] Comment on above: Performed By: #### C BC #### [facility] [address] [place] [address] Dr. Scooby Irvin EO # 0.0 103/ul Normal 0.0-0.7 [facility] Comment on above: Performed By: #### C BC #### [facility] [address] [place] [address] Dr. Scooby Irvin Eosinophils/100 WBC (Bld) 0.2 % Critically low 0.9-7.0 [facility] Comment on above: Performed By: #### C BC #### [facility] [address] [place] [address] Dr. Scooby Irvin Erythrocyte distribution width (RBC) [Ratio] 16.7 % Critically high 11.0-15.0 [facility] Comment on above: Performed By: #### C BC #### [facility] [address] [place] [address] Dr. Scooby Irvin Hematocrit (Bld) [Volume fraction] 37.6 % Normal 36.0-48.0 [facility] Comment on above: Performed By: #### C BC #### [facility] [address] [place] [address] Dr. Scooby Irvin Hemoglobin (Bld) [Mass/Vol] 12.0 g/dL Normal 12.0-16.0 [facility] Comment on above: Performed By: #### C BC #### [facility] [address] [place] [address] Dr. Scooby Irvin IG # 0.02 10e3/ul Normal 0.00-0.03 [facility] Comment on above: Performed By: #### C BC #### [facility] [address] [place] [address] Dr. Scooby Irvin IG % 0.2 % Normal 0.0-0.5 [facility] Comment on above: Performed By: #### C BC #### [facility] [address] [place] [address] Dr. Scooby Irvin LYMPH # 1.6 103/ul Normal 1.2-3.8 [facility] Comment on above: Performed By: #### C BC #### [facility] [address] [place] [address] Dr. Scooby Irvin Lymphocytes/100 WBC (Bld) 13.6 % Critically low 20.5-60.0 [facility] Comment on above: Performed By: #### C BC #### [facility] [address] [place] [address] Dr. Scooby Irvin MANUAL DIFF REQ NO Normal [facility] Comment on above: Performed By: #### C BC #### [facility] [address] [place] [address] [address] Scooby Irvin MCH (RBC) [Entitic mass] 28.6 pg Normal 26.7-34.0 [facility] Comment on above: Performed By: #### C BC #### [facility] [address] [address] [address] Scooby Irvin MCHC (RBC) [Mass/Vol] 31.9 g/dL Normal 29.9-35.2 [facility] Comment on above: Performed By: #### C BC #### [facility] [address] [place] [address] [address] Scooby Irvin MCV (RBC) [Entitic vol] 89.5 fL Normal 81.0-99.0 [facility] Comment on above: Performed By: #### C BC #### [facility] [address] [place] [address] Dr. Scooby Irvin MONO # 0.7 103/ul Normal 0.3-0.8 [facility] Comment on above: Performed By: #### C BC #### [facility] [address] [address] [address] Scooby Irvin Monocytes/100 WBC (Bld) 5.8 % Normal 1.7-12.0 [facility] Comment on above: Performed By: #### C BC #### [facility] [address] [place] [address] [address] Scooby Irvin NEUT # 9.1 103/ul Critically high 1.4-6.5 [facility] Comment on above: Performed By: #### C BC #### [facility] [address] [place] [address] [address] Scooby Irvin Neutrophils/100 WBC (Bld) 79.8 % Critically high 43.0-75.0 [facility] Comment on above: Performed By: #### C BC #### [facility] [address] [place] [address] Dr. Scooby Irvin Platelet mean volume (Bld) [Entitic vol] 10.2 fL Normal 9.5-13.5 [facility] Comment on above: Performed By: #### C BC #### [facility] [address] [address] [address] Scooby Irvin PLT 217 103/ul Normal 150-450 [facility] Comment on above: Performed By: #### C BC #### [facility] [address] [place] [address] [address] Scooby Irvin RBC 4.20 106/ul Normal 4.20-5.40 [facility] Comment on above: Performed By: #### C BC #### [facility] [address] [place] [address] [address] Scooby Irvin WBC 11.4 103/ul Critically high 4.0-11.0 [facility] Comment on above: Performed By: #### C BC #### [facility] [address] [place] [address] Dr. Scooby Irvin PROF 14(COMP METB)on 022 Albumin [Mass/Vol] 3.9 g/dL Normal 3.5-5.0 [facility] Comment on above: Performed By: #### C MP #### [facility] [address] [place] [address] Dr. Scooby Irvin Albumin/Globulin [Mass ratio] 1.1 {ratio} Normal [facility] Comment on above: Performed By: #### C MP #### [facility] [address] [place] [address] Dr. Scooby Irvin ALP [Catalytic activity/Vol] 72 U/L Normal 38-126 [facility] Comment on above: Performed By: #### C MP #### [facility] [address] [place] [address] Dr. Scooby Irvin ALT [Catalytic activity/Vol] 23 U/L Normal 9-52 [facility] Comment on above: Performed By: #### C MP #### [facility] [address] [place] [address] Dr. Scooby Irvin Anion gap [Moles/Vol] 10.2 mmol/L Normal [facility] Comment on above: Performed By: #### C MP #### [facility] [address] [place] [address] Dr. Scooby Irvin AST [Catalytic activity/Vol] 20 U/L Normal 14-36 [facility] Comment on above: Performed By: #### C MP #### [facility] [address] [place] [address] Dr. Scooby Irvin Bilirubin [Mass/Vol] 0.5 mg/dL Normal 0.2-1.3 [facility] Comment on above: Performed By: #### C MP #### [facility] [address] [place] [address] Dr. Scooby Irvin Calcium [Mass/Vol] 8.8 mg/dL Normal 8.4-10.2 [facility] Comment on above: Performed By: #### C MP #### [facility] [address] [place] [address] Dr. Scooby Irvin Chloride [Moles/Vol] 104 mmol/L Normal 98-107 [facility] Comment on above: Performed By: #### C MP #### [facility] [address] [place] [address] Dr. Scooby Irvin CO2 [Moles/Vol] 28.0 mmol/L Normal 22.0-30.0 [facility] Comment on above: Performed By: #### C MP #### [facility] [address] [place] [address] Dr. Scooby Irvin Creatinine [Mass/Vol] 0.87 mg/dL Normal 0.52-1.04 [facility] Comment on above: Performed By: #### C MP #### [facility] [address] [place] [address] Dr. Scooby Irvin EGFR-AF ZAMBIAN >60 Normal >=60 [facility] Comment on above: Performed By: #### C MP #### [facility] [address] [place] [address] Dr. Scooby Irvin EGFR-NON AF ZAMBIAN >60 Normal >=60 [facility] Comment on above: Performed By: #### C MP #### [facility] [address] [place] [address] Dr. Scooby Irvin Globulin (S) [Mass/Vol] 3.5 g/dL Normal [facility] [facility] Comment on above: Performed By: #### C MP #### [facility] [address] [place] [address] Dr. Scooby Irvin Glucose [Mass/Vol] 93 mg/dL Normal 74-106 [facility] [place] Comment on above: Performed By: #### C MP #### [facility] [address] [address] [address] Scooby Irvin Potassium [Moles/Vol] 4.2 mmol/L Normal 3.4-5.0 [facility] Comment on above: Performed By: #### C MP #### [facility] [address] [place] [address] Dr. Scooby Irvin Protein [Mass/Vol] 7.4 g/dL Normal 6.1-8.2 [facility] [place] Comment on above: Performed By: #### C MP #### [facility] [address] [place] [address] Dr. Scooby Irvin Sodium [Moles/Vol] 138 mmol/L Normal 137-145 [facility] [place] Comment on above: Performed By: #### C MP #### [facility] [address] [place] [address] Dr. Scooby Irvin Urea nitrogen [Mass/Vol] 15.0 mg/dL Normal 7.0-17.0 [facility] Comment on above: Performed By: #### C MP #### [facility] [address] [place] [address] Dr. Scooby Irvin Urea nitrogen/Creatinine [Mass ratio] 17.2 mg/mg Normal [facility] Comment on above: Performed By: #### C MP #### [facility] [address] [place] [address] Dr[address] SKULL BASE [...] by: VALENTE BARRETO Date: 2021-04-07 08:23 Normal [facility] CT LUNG CANCER SCREENINGon 0 03-23-2021 CT [...] VALENTE BARRETO Date: 2021-03-23 09:57 Normal [facility] CBC AUTO DIFFon 03-09-2021 BASO # 0.1 103/ul Normal 0.0-0.1 [facility] Comment on above: Performed By: #### C BC #### [facility] [address] [place] [address] Dr. Scooby Irvin Basophils/100 WBC (Bld) 1.2 % Normal 0.2-2.0 [facility] Comment on above: Performed By: #### C BC #### [facility] [address] [place] [address] Dr. Scooby Irvin EO # 0.1 103/ul Normal 0.0-0.7 [facility] Comment on above: Performed By: #### C BC #### [facility] [address] [place] [address] Dr. Scooby Irvin Eosinophils/100 WBC (Bld) 1.4 % Normal 0.9-7.0 [facility] Comment on above: Performed By: #### C BC #### [facility] [address] [place] [address] Dr. Scooby Irvin Erythrocyte distribution width (RBC) [Ratio] 16.3 % Critically high 11.0-15.0 [facility] Comment on above: Performed By: #### C BC #### [facility] [address] [place] [address] Dr. Scooby Irvin Hematocrit (Bld) [Volume fraction] 39.6 % Normal 36.0-48.0 [facility] Comment on above: Performed By: #### C BC #### [facility] [address] [place] [address] Dr. Scooby Irvin Hemoglobin (Bld) [Mass/Vol] 12.6 g/dL Normal 12.0-16.0 [facility] Comment on above: Performed By: #### C BC #### [facility] [address] [place] [address] Dr. Scooby Irvin IG # 0.01 10e3/ul Normal 0.00-0.03 [facility] Comment on above: Performed By: #### C BC #### [facility] [address] [place] [address] Dr. Scooby Irvin IG % 0.2 % Normal 0.0-0.5 [facility] Comment on above: Performed By: #### C BC #### [facility] [address] [place] [address] Dr. Scooby Irvin LYMPH # 1.6 103/ul Normal 1.2-3.8 [facility] Comment on above: Performed By: #### C BC #### [facility] [address] [place] [address] Dr. Scooby Irvin Lymphocytes/100 WBC (Bld) 30.7 % Normal 20.5-60.0 [facility] Comment on above: Performed By: #### C BC #### [facility] [address] [place] [address] Dr. Scooby Irvin MANUAL DIFF REQ NO Normal [facility] Comment on above: Performed By: #### C BC #### [facility] [address] [place] [address] Dr. Scooby Irvin MCH (RBC) [Entitic mass] 28.4 pg Normal 26.7-34.0 [facility] Comment on above: Performed By: #### C BC #### [facility] [address] [place] [address] Dr. Scooby Irvin MCHC (RBC) [Mass/Vol] 31.8 g/dL Normal 29.9-35.2 [facility] Comment on above: Performed By: #### C BC #### [facility] [address] [place] [address] Dr. Scooby Irvin MCV (RBC) [Entitic vol] 89.2 fL Normal 81.0-99.0 [facility] Comment on above: Performed By: #### C BC #### [facility] [address] [place] [address] Dr. Scooby Irvin MONO # 0.6 103/ul Normal 0.3-0.8 [facility] Comment on above: Performed By: #### C BC #### [facility] [address] [place] [address] Dr. Scooby Irvin Monocytes/100 WBC (Bld) 11.5 % Normal 1.7-12.0 [facility] Comment on above: Performed By: #### C BC #### [facility] [address] [place] [address] Dr. Scooby Irvin NEUT # 2.8 103/ul Normal 1.4-6.5 [facility] Comment on above: Performed By: #### C BC #### [facility] [address] [place] [address] Dr. Scooby Irvin Neutrophils/100 WBC (Bld) 55.0 % Normal 43.0-75.0 [facility] Comment on above: Performed By: #### C BC #### [facility] [address] [place] [address] Dr. Scooby Irvin Platelet mean volume (Bld) [Entitic vol] 10.3 fL Normal 9.5-13.5 [facility] Comment on above: Performed By: #### C BC #### [facility] [address] [place] [address] Dr. Scooby Irvin PLT 208 103/ul Normal 150-450 [facility] Comment on above: Performed By: #### C BC #### [facility] [address] [place] [address] Dr. Scooby Irvin RBC 4.44 106/ul Normal 4.20-5.40 [facility] Comment on above: Performed By: #### C BC #### [facility] [address] [place] [address] Dr. Scooby Irvin WBC 5.1 103/ul Normal 4.0-11.0 [facility] Comment on above: Performed By: #### C BC #### [facility] [address] [place], [place] [address] Dr. Scooby Irvin FREE T4on 03-09-2021 Free T4 [Mass/Vol] 1.15 ng/dL Normal 0.78-2.19 [facility] [place] Comment on above: Performed By: #### C BC #### [facility] [address] [address] [address] Scooby Irvin LIPID PROFILEon 03-09-2021 CHOL-HDL RATIO NORM SEE BELOW Normal [facility] Comment on above: Result Comment: 3.3 - 4.4 LOW RISK 4.4 - 7.1 AVERAGE RISK 7.1 - 11.0 MODERATE RISK >11.0 HIGH RISK Performed By: #### L IPID, CMP, TSH #### [facility] [address] [address] [address] Scooby Irvin Cholesterol [Mass/Vol] 227 mg/dL Critically high <=200 [facility] Comment on above: Performed By: #### L IPID, CMP, TSH #### [facility] [address] [address] [address] Scooby Irvin Cholesterol in HDL [Mass/Vol] 65 mg/dL Normal [facility] Comment on above: Performed By: #### L IPID, CMP, TSH #### [facility] [address] [address] [address] Scooby Irvin Cholesterol in LDL [Mass/Vol] 142.6 mg/dL Normal [facility] Comment on above: Performed By: #### L IPID, CMP, TSH #### [facility] [address] [address] [address] Scooby Irvin Cholesterol.total/Rachel sterol in HDL [Mass ratio] 3.5 {ratio} Normal [facility] Comment on above: Performed By: #### L IPID, CMP, TSH #### [facility] [address] [address] [address] Scooby Irvin HDL NORMAL > or = 60 mg/dl - LOW CARDIOVASCULAR RISK <40 mg/dl - HIGH CARDIOVASCULAR RISK Normal [facility] Comment on above: Performed By: #### L IPID, CMP, TSH #### [facility] [address] [address] [address] Scooby Irvin LDL CALC NORMAL SEE BELOW Normal [facility] Comment on above: Result Comment: <100 mg/dl OPTIMAL 100 - 129 mg/dl NEAR OR ABOVE OPTIMAL 130 - 159 mg/dl BORDERLINE HIGH 160 - 189 mg/dl HIGH >190 mg/dl VERY HIGH Performed By: #### L IPID, CMP, TSH #### [facility] [address] [address] [address] Scooby Irvin Triglyceride [Mass/Vol] 97 mg/dL Normal <=150 [facility] Comment on above: Performed By: #### L IPID, CMP, TSH #### [facility] [address] [address] [address] Scooby Irvin VLDL CALC 19.4 mg/dL Normal [facility] Comment on above: Performed By: #### L IPID, CMP, TSH #### [facility] [address] [address] [address] Scooby Irvin PROF 14(COMP METB)on 022 Albumin [Mass/Vol] 4.0 g/dL Normal 3.5-5.0 [facility] [place] Comment on above: Performed By: #### L IPID, CMP, TSH #### [facility] [address] [address] [address] Scooby Irvin Albumin/Globulin [Mass ratio] 1.1 {ratio} Normal [facility] Comment on above: Performed By: #### L IPID, CMP, TSH #### [facility] [address] [address] [address] Scooby Irvin ALP [Catalytic activity/Vol] 80 U/L Normal 38-126 [facility] Comment on above: Performed By: #### L IPID, CMP, TSH #### [facility] [address] [address] [address] Scooby Irvin ALT [Catalytic activity/Vol] 35 U/L Normal 9-52 [facility] Comment on above: Performed By: #### L IPID, CMP, TSH #### [facility] [address] [address] [address] Scooby Irvin Anion gap [Moles/Vol] 11.8 mmol/L Normal [facility] Comment on above: Performed By: #### L IPID, CMP, TSH #### [facility] [address] [address] [address] Scooby Irvin AST [Catalytic activity/Vol] 24 U/L Normal 14-36 [facility] Comment on above: Performed By: #### L IPID, CMP, TSH #### [facility] [address] [address] [address] Scooby Irvin Bilirubin [Mass/Vol] 0.5 mg/dL Normal 0.2-1.3 [facility] Comment on above: Performed By: #### L IPID, CMP, TSH #### [facility] [address] [place] [address] Dr. Scooby Irvin Calcium [Mass/Vol] 9.3 mg/dL Normal 8.4-10.2 [facility] [place] Comment on above: Performed By: #### L IPID, CMP, TSH #### [facility] [address] [address] [address] Scooby Irvin Chloride [Moles/Vol] 105 mmol/L Normal 98-107 [facility] Comment on above: Performed By: #### L IPID, CMP, TSH #### [facility] [address] [address] [address] Scooby Irvin CO2 [Moles/Vol] 26.2 mmol/L Normal 22.0-30.0 [facility] Comment on above: Performed By: #### L IPID, CMP, TSH #### [facility] [address] [address] [address] Scooby Irvin Creatinine [Mass/Vol] 0.83 mg/dL Normal 0.52-1.04 [facility] Comment on above: Performed By: #### L IPID, CMP, TSH #### [facility] [address] [address] [address] Scooby Irvin EGFR-AF ZAMBIAN >60 Normal >=60 [facility] Comment on above: Performed By: #### L IPID, CMP, TSH #### [facility] [address] [address] [address] Scooby Irvin EGFR-NON AF ZAMBIAN >60 Normal >=60 [facility] Comment on above: Performed By: #### L IPID, CMP, TSH #### [facility] [address] [address] [address] Scooby Irvin Globulin (S) [Mass/Vol] 3.8 g/dL Normal [facility] Comment on above: Performed By: #### L IPID, CMP, TSH #### [facility] [address] [address] [address] Scooby Irvin Glucose [Mass/Vol] 112 mg/dL Critically high 74-106 [facility] Comment on above: Performed By: #### L IPID, CMP, TSH #### [facility] [address] [place] [address] Dr. Scooby Irvin Potassium [Moles/Vol] 4.0 mmol/L Normal 3.4-5.0 [facility] Comment on above: Performed By: #### L IPID, CMP, TSH #### [facility] [address] [place] [address] Dr. Scooby Irvin Protein [Mass/Vol] 7.8 g/dL Normal 6.1-8.2 [facility] [place] Comment on above: Performed By: #### L IPID, CMP, TSH #### [facility] [address] [address] [address] Scooby Irvin Sodium [Moles/Vol] 139 mmol/L Normal 137-145 [facility] Comment on above: Performed By: #### L IPID, CMP, TSH #### [facility] [address] [place] [address] Dr. Scooby Irvin Urea nitrogen [Mass/Vol] 15.0 mg/dL Normal 7.0-17.0 [facility] Comment on above: Performed By: #### L IPID, CMP, TSH #### [facility] [address] [place], [place] [id number] Dr. Scooby Irvin Urea nitrogen/Creatinine [Mass ratio] 18.1 mg/mg Normal [facility] Comment on above: Performed By: #### L IPID, CMP, TSH #### [facility] [address] [place] [address] Dr. Scooby Irvin TSHon 03-09-2021 TSH 2.761 uIU/mL Normal 0.470-4.680 [facility] Comment on above: Performed By: #### L IPID, CMP, TSH #### [facility] [address] [address] [address] Scooby Irvin TSH RANGE SEE BELOW Normal [facility] Comment on above: Result Comment: <0.3 4 UIU/ml HYPERTHYROID 0.34-5.60 UIU/ml EUTHYROID >5.60 UIU/ml HYPOTHYROID Performed By: #### L IPID, CMP, TSH #### [facility] [address] [place] [address] Dr. Scooby Irvin Vital Signs Date Time Vital Sign Value Performing Clinician Facility 09-04-2022 09:00-0400 Body height 140.97 cm Danyell Morales Other [facility] Other 09-04-2022 09:00-0400 Body mass index (BMI) [Ratio] 36.74 kg/m2 Danyell Morales Other [facility] Other 09-04-2022 09:00-0400 Body weight 73.03 kg Danyell Morales Other [facility] Other 09-04-2022 09:00-0400 Diastolic blood pressure 78 mm[Hg] Danyell Morales Other [facility] Other 09-04-2022 09:00-0400 SaO2% (BldA) [Mass fraction] 97 % Danyell Morales Other [facility] Other 09-04-2022 09:00-0400 Systolic blood pressure 132 mm[Hg] Danyell Morales Other [facility] Other 03-01-2022 10:30-0500 Body height 140.97 cm Danyell Morales Other [facility] Other 03-01-2022 10:30-0500 Body mass index (BMI) [Ratio] 36.06 kg/m2 Danyell Morales Other [facility] Other 03-01-2022 10:30-0500 Body weight 71.67 kg Danyell Morales Other [facility] Other 03-01-2022 10:30-0500 Diastolic blood pressure 84 mm[Hg] Danyell Morales Other [facility] Other 03-01-2022 10:30-0500 SaO2% (BldA) [Mass fraction] 98 % Danyell Morales Other [facility] Other 03-01-2022 10:30-0500 Systolic blood pressure 132 mm[Hg] Danyell Morales Other [facility] Other 11-08-2021 10:17-0400 Diastolic blood pressure 74 mm[Hg] Farooq SALAM [facility] 11-08-2021 10:17-0400 Mean blood pressure 99 mm[Hg] Farooq SALAM [facility] 11-08-2021 10:17-0400 Systolic blood pressure 148 mm[Hg] Farooq SALAM [facility] 11-08-2021 10:15-0400 Blood Pressure Location Farooq SALAM [facility] 11-08-2021 10:15-0400 Diastolic blood pressure 95 mm[Hg] Farooq SALAM [facility] 11-08-2021 10:15-0400 Heart rate 78 /min Farooq SALAM [facility] 11-08-2021 10:15-0400 Respiratory rate 16 /min Farooq SALAM [facility] 11-08-2021 10:15-0400 Systolic blood pressure 159 mm[Hg] Farooq SALAM [facility] 05-10-2021 11:11-0400 Diastolic blood pressure 90 mm[Hg] Farooq SALAM [facility] 05-10-2021 11:11-0400 Systolic blood pressure 180 mm[Hg] Farooq SALAM [facility] Encounters Encounter Date Encounter Type Care Provider Facility Start: 08-26-2023 End: 08-26-2023 ambulatory JASIEL BRYANT Not Available Start: 03-07-2023 End: 03-07-2023 ambulatory Danyell Morales Other [facility] Other Start: 03-07-2023 Office outpatient vi sit 15 minutes Danyell Morales [facility] Start: 09-20-2022 End: 09-20-2022 ambulatory Danyell Morales Other [facility] Other Start: 09-20-2022 Telephone encounter Danyell Morales [facility] Start: 09-04-2022 End: 09-04-2022 ambulatory Danyell Morales Other [facility] Other Start: 09-04-2022 Patient encounter procedure Danyell Morales [facility] Start: 03-09-[address] DANYELL MORALES Facil ity:[facility] Start: 03-01-2022 End: 03-01-2022 ambulatory Danyell Morales Other [facility] Other Start: 03-01-2022 Office outpatient vi sit 15 minutes Danyell Morales [facility] Start: 01-18-2022 End: 01-19-[address] DANYELL MORALES Facility:[facility] Start: 11-21-2021 End: 11-22-2021 ambulatory CAPRI ROA Facility:[facility] Start: 11-08-2021 End: 11-09-2021 ambulatory [facility] Facility:[facility] Start: 11-08-2021 End: 11-08-2021 [facility] Start: 10-19-2021 End: 10-20-[address] DANYELL MORALES Facility:[facility] Start: 09-27-2021 End: 09-28-[address] DANYELL MORALES Facility:[facility] Start: 09-26-2021 End: 09-26-[address] DANYELL MORALES Facility:[facility] Start: 09-25-2021 Encounter for preprocedural laboratory examination DR RADHA IRAHETA [facility] Start: 09-22-2021 End: 09-23-[address] DANYELL MORALES Facility:[facility] Start: 09-22-2021 End: 09-23-2021 Encounter for preprocedural laboratory examination DR DANYELL MORALES Facility:[facility] Start: 09-11-[address] DANYELL MORALES Facil ity:[facility] Start: 09-06-2021 End: 09-07-2021 ambulatory ROBERTO MCNALLY Facility:[facility] Start: 08-30-2021 Adult health examination Malia Morales Other [facility] Other Start: 06-22-2021 End: 06-23-2021 ambulatory CAPRI ROA Facility:[facility] Start: 05-31-2021 End: 05-31-2021 ambulatory Luis Gutierrez Facility:[facility] Start: 05-26-2021 End: 05-26-2021 ambulatory Danyell Morales Facility:[facility] Start: 05-26-2021 End: 05-26-2021 Patient encounter procedure MD Cy Sears Work Phone: [facility] Start: 05-22-2021 End: 05-23-[address] DANYELL MORALES Facility:[facility] Start: 05-10-2021 ambulatory Farooq SALAM [facility] Start: 05-10-2021 End: 05-11-2021 [facility] Start: 05-10-2021 End: 05-10-2021 Patient encounter procedure [facility] SAL [facility] Start: 05-09-2021 ambulatory Farooq SALAM [facility] Start: 05-04-2021 End: 05-04-2021 ambulatory Cy Sears Facility:[facility] Start: 05-04-2021 End: 05-04-2021 Patient encounter procedure MD Cy Sears Work Phone: [facility] Start: 04-20-2021 End: 04-21-2021 ambulatory FAROOQ SALAM Facility:[facility] Start: 04-05-2021 ambulatory Farooq SALAM [facility] Start: 04-01-2021 End: 04-02-[address] DANYELL MORALES Facility:[facility] Start: 03-23-2021 End: 03-24-[address] DANYELL MORALES Facility:[facility] Start: 03-09-2021 End: 03-10-[address] DANYELL MORALES Facility:[facility] Start: 01-24-2021 [facility]ulatory [facility] Date Procedure Procedure Detail Performing Clinician Start: 05-31-2021 Antibody screen Adeline Gutierrez Comment on above: Order Comment: Trans fuse now? N Result Comment: PERF ORMED BY: [facility] [address] [place] [address] PATHOLOGIST MACHINE CLERICAL VERIFIER TRICIA OSHEA M.D. Start: 02-16-2020 Colonoscopy w/biopsy single/multiple Farooqsabrina ROA Colonoscopy Capri ROA Screening for malign ant neoplasm of breast Danyell Morales Other Immunizations Immunization Date Immunization Notes Care Provider Fa [facility] 12-09-2020 COVID-19 mRNA-1273 (Moderna) MD Cy Sears Work Phone: [facility] 11-15-2020 influenza virus vaccine, split virus (incl. purified surface antigen) Danyell Morales Other [facility] Other 11-11-2020 influenza virus vaccine, unspecified formulation Capri ROA [facility] 04-26-2020 COVID-19 mRNA-1273 (Moderna) MD Cy Sears Work Phone: [facility] 03-23-2020 COVID-19 mRNA-1273 (Moderna) MD Cy Sears Work Phone: [facility] 11-20-2019 influenza virus vaccine, split virus (incl. purified surface antigen) Danyell Morales Other [facility] Other 10-24-2016 influenza virus vaccine, split virus (incl. purified surface antigen) Danyell Morales Other [facility] Other 10-24-2016 pneumococcal conjuga te vaccine, 13 valent Danyell Morales Other [facility] Other 08-31-2014 tetanus toxoid, reduced diphtheria toxoid, and acellular pertussis vaccine, adsorbed Danyell Morales Other [facility] Other 11-30-2013 pneumococcal polysaccharide vaccine, 23 valent Danyell Morales Other [facility] Other NEGATED: Highlighted row has not occurred!11-08-2021 influenza virus vaccine, unspecified formulation Capri ROA [facility] Payers Date Payer Category Payer Self-pay [id number] 2021 Private Health Insurance [facility] [id number] 1959 Medicare [id number] 1959 Unknown [id number] 1948 Unknown [id number] 2.16.8 [id number] 1948 Unknown [id number] 2.16.8 [id number] 1948 Unknown [id number] 2.16.84 0.1.992036.3.579.2.727 1948 Unknown [id number] 2.16.84 0.1.179969.3.579.2.593 1948 Unknown [id number] 2.16.84 0.1.351876.3.579.2.593 1948 Unknown [id number] 2.16.84 0.1.212950.3.579.2.593 1948 Unknown [id number] 2.16.84 0.1.060118.3.579.2.593 1948 Unknown [id number] 2.16.84 0.1.806719.3.579.2.593 1948 Unknown [id number] 2.16.84 0.1.040365.3.579.2.593 1948 Unknown [id number] 2.16.84 0.1.806976.3.579.2.593 1948 Unknown [id number] 2.16.84 0.1.316001.3.579.2.593 1948 Unknown [id number] 2.16.84 0.1.686173.3.579.2.593 1948 Unknown [id number] 2.16.84 0.1.187177.3.579.2.593 1948 Unknown [id number] 2.16.84 0.1.000705.3.579.2.593 1948 Unknown [id number] 2.16.84 0.1.963365.3.579.2.593 1948 Unknown [id number] 2.16.84 0.1.331105.3.579.2.593 1948 Unknown [id number] 2.16.84 0.1.213033.3.579.2.593 1948 Unknown [id number] 2.16.84 0.1.445772.3.579.2.593 1948 Unknown [id number] 2.16.84 [id number] 1950 Unknown [id number] 2.16.84 [id number] 1950 Unknown [id number] 2.16.84 [id number] 1950 Unknown [id number] 2.16.84 [id number] Medicare Self Pay [id number] Unknown [id number] 2.16.8 [id number] Unknown [id number] 2.16.8 [id number] Unknown [id number] 2.16.8 [id number] Social History Date Type Detail Facility Tobacco smoking stat [facility] Unknown if ever smoked [facility] Work Phone: Start: 1950 Sex Assigned At Female F [facility] Start: 05-10-2021 End: 11-08-2021 Tobacco smoking status Heavy tobacco smoker (finding) [facility] Sex Assigned At Female [facility] Start: 05-26-2021 Tobacco smoking stat [facility] Smoker (finding) [facility] Functional Status Date Assessment Result Facility 11-08-2021 Functional Status N/A [facility] Clinical Notes 01-24-2021 to [...] continue to monitor through routine blood work [facility] Other 08-10-2023 Evaluation note* Encounter Date Diagnosis Assessment Notes Treatment Notes Treatment Clinical Notes Sep, Right foot pain (ICD-10 - M79.671) [facility] Other 07-25-2023 Evaluation note* Encounter Date Diagnosis [...] - E03.9) Chronic problem due for labs. [facility] Other 01-19-2023 Evaluation note* Encounter Date Diagnosis [...] - E78.5) Due for labs in summer. [facility] Other 12-08-2022 NoteCONSULTATION PROCEDURE DATE: 01/18/2022 PREOPERATIVE [...] will be followed up in the office.[facility] [id number] NoteCONSULTATION CONSULTATION DATE: 01/18/2022 HISTORY OF PRESENT [...] in three months' time, unless otherwise indicated.[facility] [id number] Evaluation + Plan note Diagnostic Tests Pending * CBC w/ Auto Diff 11/08/21 * Comprehensive Metabolic Panel 11/08/21 [facility] 09-08-2022 NoteCONSULTATION PROCEDURE DATE: [...] will be followed up in the office.[facility] 10-19-2021 NoteCONSULTATION CONSULTATION DATE: 10/19/2021 This [...] in three months' time unless otherwise indicated.[facility] [id number] NoteCONSULTATION CONSULTATION DATE: 09/06/2021 HISTORY OF PRESENT [...] 8/10. She has been following up with [facility] and had a benign fibroid tumor [...] procedure, and patient agrees to move forward.[facility] [id number] NoteCONSULTATION PAIN MANAGEMENT CONSULTATION HISTORY: This is [...] and Approved by: ROBERTO MCNALLY . 04/27/2021 12:41:00[facility]12-14-2021 Hospital Discharge instructions Follow Up Care 01/24/2021 10:04:31 With:JANINA ALARCON, [facility] Address: [facility] [address] [place] [id number]- When:6 months [facility] Evaluation + Plan note Future Appointments Appointment Date:11/08/2021 10:15:00 AM Scheduled Provider:Capri ROA MD Location:[facility] Appointment Type:[facility] Follow Up Future Scheduled Tests Laboratory* CBC w/ Indices 07/25/20 * Comprehensive Metabolic Panel 07/25/20 [facility] Evaluation noteNo assessment information available [facility] Work Phone: [facility] Narrative - Reported* Type Description Date Medical History GERD Medical History Hypothyroid Medical History Depression Surgical History Appendectomy Surgical History Tubal Ligation Surgical History Right carpal tunnel Surgical History Right finger Surgical History 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 Hospitalization History See past surgical hx [facility] Other Hospital course Narrative No data available for this section [facility] Hospital Discharge instructions No data available for this section [facility] Progress note No data available for this section [facility] Chief Complaint and Reason [...] Right foot pain (M79 .671) Referral Organization [facility] Referring Provider First Name Danyell Referring Provider Last Name Robin Referring Provider Specialty Family [facility] Referred Organization [facility] Referred Provider Seymour Johnson Referred Address [address] [place], [place],[address] Referred Provider Specialty Podiatry - S urgical [...] section and content) DATE CREATED AUTHOR 05/23/2021 [facility] dical Specialist DATE CREATED AUTHOR AUTHOR'S ORGANIZ ATION 11/14/2021 [facility] DATE CREATED AUTHOR AUTHOR'S ORGANIZ ATION 01/23/2022 [facility] DATE CREATED AUTHOR AUTHOR'S ORGANIZ ATION 03/17/2022 [facility] DATE CREATED AUTHOR AUTHOR'S ANGEL KLINE 09/02/2023 [facility] dical Specialists EPIC REASON FOR [...] BE BASED ON THE PRIMARY CLINICAL RECORDS. [employer] provides no warranty or guarantee of the accuracy or completeness of information in this document.
== END 2023-09-10 12:16 | disposition home or self-care (01) ==
LOC: PM 12:15
PROVIDERS: PCP Family Medicine; Visit Provider Anesthesiology Pain Medicine
DX: M54.50 Low back pain, unspecified (principal); M54.16 Radiculopathy, lumbar region
CPT/HCPCS: G0463

== ENCOUNTER 2023-09-17 08:46 | Outpatient (OUT) | payer MEDICARE, OTHER, SELFPAY ==
--- OUTSIDE RECORDS SUMMARY | 2023-09-17 08:50 | XMS_ITS | CCD ---
Author Organization [facility] Care Team Providers Care Honing Machine Operator Name Role Phone MD Cy Sears Attending Provider MD Danyell Morales Primary Care Provider DANYELL MORALES Primary Care Physician DO Luis Gutierrez Attending Provider Capri ROA Attending Unavailable SALAM, Capri Attending Unavailable SALAM, Cpari Attending Unavailable MORALES, DR DANYELL Solis Attending [...] Solis Primary Care Unavailable ESEQUIEL, DR RADHA Sonw Admitting Unavailable IRAHETA, DR RADHA Snow Attending Unavailable ESEQUIEL, DR RADHA Snow Consulting Unavailable MORALES, DR DANYELL Solis Attending Unavailable MORALES, DR DANYELL Solis Admitting Unavailable MORALES, DR DANYELL Solis Consulting Unavailable MORALES, DR DANYELL Solis Primary Care Unavailable MORALES, DR DANYELL Solis Primary Care Unavailable IRAHETA, DR RADHA Snow Attending Unavailable IRAHETA, DR RADHA Snow Admitting Unavailable ROBERTO MCNALLY Consulting Unavailable SALAM, CAPRI Admitting Unavailable MORALES, DR DANYELL Solis Primary Care Unavailable SALAM, CAPRI Attending Unavailable SHANKAR, DR SCHRADER Consulting Unavailable MORALES, DR DANYELL Solis Primary Care Unavailable MORALES, DR DANYELL Solis Admitting Unavailable MORALES, DR DANYELL Solis Attending Unavailable WARSAW, DR LONNY Wiggins Consulting Unavailable MORALES, DR DANYELL Solis Consulting Unavailable MORALES, DR DANYELL Solis Primary Care Unavailable ESEQUIEL, DR RADHA Snow Attending Unavailable ESEQUIEL, DR RADHA Snow Consulting Unavailable ESEQUIEL, DR RADHA Snow Admitting Unavailable SABINA STONE Consulting Unavailable MORALSE, DR DANYELL Solis Primary Care Unavailable ESEQUIEL, DR RADHA Snow Admitting Unavailable ESEQUIEL, DR RADHA Snow Attending Unavailable ROBERTO MCNALLY Consulting Unavailable MORALES, DR DANYELL Solis Primary Care Unavailable IRAHETA, DR RADHA Snow Attending Unavailable IRAHETA, DR RADHA Snow Admitting Unavailable MORALES, DR DANYELL Solis Primary Care Unavailable IRAHETA, DR RADHA Snow Admitting Unavailable IRAHETA, DR RADHA Snow Attending Unavailable IRAHETA, DR RADHA Snow Consulting Unavailable MCNALLY, ROBERTO Consulting Unavailable MCNALLY, ROBERTO Consulting Unavailable MORALES, DR DANYELL Solis Primary Care Unavailable ESEQUIEL, DR RADHA Snow Attending Unavailable ESEQUIEL, DR RADHA Snow Admitting Unavailable MORALES, DR DANYELL Solis Primary Care Unavailable ESEQUIEL, DR RADHA Snow Attending Unavailable ESEQUIEL, DR RADHA Snow Admitting Unavailable SALAMCAPRI Admitting Unavailable MORALES, DR [...] BRYANT Attending Unavailable JASIEL BRYANT Referring Unavailable DANIELLE LOPEZ Attending Unavailable Allergies Allergy Classification Reported Allergen(s) Allergy Type Date of Onset Reaction(s) Facility (4 sources) v[facility]icline Drug Allergy Unknown [facility] Other Medications Current Medications Medication Drug Class(es) Dates Sig (Normalized) Sig (Original) ALPRAZolam 0.5 mg oral tablet (7 sources) Benzodiazepine Start: 02-27-2023 Start: 09-03-2022 ALPRAZolam 0.5 mg TAKE ONE TABLET BY MOUTH TWICE A DAY NEEDED FOR 30 DAYS for 30 24 Aug,3 Active Start: 03-01-2022 take 1 tablet by maia th twice daily as needed ALPRAZolam 0.5 mg TAKE ONE TABLET BY MOUTH TWICE A DAY NEEDED for Feb, Active Start: 05-26-2021 take 0.5 mg [...] PO Daily May 26, 2021 2:53pm NuLYTELY Cedar oral powder for reconstitution (1 source) Start: 01-28-2020 take 1 dose by mouth once NuLYTELY Cedar oral powder for reconstitution See Instructions, 1 [...] Once a day Active polyethylene glycol 3350 422355 mg / potassium chloride 1480 mg / sodium bicarbonate 5720 mg / sodium chloride 81084 mg powder for oral solution (1 source) Osmotic Laxative Start: 01-28-2020 take 1 dose by mouth once NuLYTELY Cedar oral powder for reconstitution See Instructions, 1 [...] TID, # 180 tab(s), Refills(s) 11, Pharmacy: [facility]/pharmacy #[id number], 150, cm, 05/10/21 11:13:00 EDT, [...] 11-21-2021 BASO # 0.1 103/ul Normal 0.0-0.1 [facility] Comment on above: Performed By: #### C BC #### [facility] [address] [address] [address] Scooby Irvin Basophils/100 WBC (Bld) 0.5 % Normal 0.2-2.0 T [facility] Comment on above: Performed By: #### C BC #### [facility] [address] [address] [address] Scooby Irvin EO # 0.0 103/ul Normal 0.0-0.7 [facility] Comment on above: Performed By: #### C BC #### [facility] [address] [address] [address] Scooby Irvin Eosinophils/100 WBC (Bld) 0.1 % Critically low 0.9-7.0 [facility] Comment on above: Performed By: #### C BC #### [facility] [address] [place] [address] Dr. Scooby Irvin Erythrocyte distribution width (RBC) [Ratio] 15.1 % Critically high 11.0-15.0 [facility] Comment on above: Performed By: #### C BC #### [facility] [address] [place] [address] Dr. Scooby Irvin Hematocrit (Bld) [Volume fraction] 39.4 % Normal 36.0-48.0 [facility] Comment on above: Performed By: #### C BC #### [facility] [address] [place] [address] Dr. Scooby Irvin Hemoglobin (Bld) [Mass/Vol] 12.6 g/dL Normal 12.0-16.0 [facility] Comment on above: Performed By: #### C BC #### [facility] [address] [place] [address] Dr. Scooby Irvin IG # 0.05 10e3/ul Critically high 0.00-0.03 [facility] Comment on above: Performed By: #### C BC #### [facility] [address] [place] [address] Dr. Scooby Irvin IG % 0.5 % Normal 0.0-0.5 [facility] Comment on above: Performed By: #### C BC #### [facility] [address] [place] [address] Dr. Scooby Irvin LYMPH # 1.3 103/ul Normal 1.2-3.8 [facility] Comment on above: Performed By: #### C BC #### [facility] [address] [place] [address] Dr. Scooby Irvin Lymphocytes/100 WBC (Bld) 13.2 % Critically low 20.5-60.0 [facility] Comment on above: Performed By: #### C BC #### [facility] [address] [place] [address] Dr. Scooby Irvin MANUAL DIFF REQ NO Normal [facility] Comment on above: Performed By: #### C BC #### [facility] [address] [place] [address] Dr. Scooby Irvin MCH (RBC) [Entitic mass] 30.0 pg Normal 26.7-34.0 [facility] Comment on above: Performed By: #### C BC #### [facility] [address] [place] [address] Dr. Scooby Irvin MCHC (RBC) [Mass/Vol] 32.0 g/dL Normal 29.9-35.2 [facility] Comment on above: Performed By: #### C BC #### [facility] [address] [place] [address] Dr. Scooby Irvin MCV (RBC) [Entitic vol] 93.8 fL Normal 81.0-99.0 [facility] Comment on above: Performed By: #### C BC #### [facility] [address] [place] [address] Dr. Scooby Irvin MONO # 0.7 103/ul Normal 0.3-0.8 [facility] Comment on above: Performed By: #### C BC #### [facility] [address] [place] [address] Dr. Scooby Irvin Monocytes/100 WBC (Bld) 7.2 % Normal 1.7-12.0 [facility] Comment on above: Performed By: #### C BC #### [facility] [address] [place] [address] Dr. Scooby Irvin NEUT # 7.5 103/ul Critically high 1.4-6.5 [facility] Comment on above: Performed By: #### C BC #### [facility] [address] [place] [address] Dr. Scooby Irvin Neutrophils/100 WBC (Bld) 78.5 % Critically high 43.0-75.0 [facility] Comment on above: Performed By: #### C BC #### [facility] [address] [place] [address] Dr. Scooby Irvin Platelet mean volume (Bld) [Entitic vol] 9.9 fL Normal 9.5-13.5 [facility] Comment on above: Performed By: #### C BC #### [facility] [address] [place] [address] Dr. Scooby Irvin PLT 230 103/ul Normal 150-450 [facility] Comment on above: Performed By: #### C BC #### [facility] [address] [place] [address] Dr. Scooby Irvin RBC 4.20 106/ul Normal 4.20-5.40 [facility] Comment on above: Performed By: #### C BC #### [facility] [address] [place] [address] Dr. Scooby Irvin WBC 9.5 103/ul Normal 4.0-11.0 [facility] Comment on above: Performed By: #### C BC #### [facility] [address] [place] [address] Dr. Scooby Irvin PROF 14(COMP METB)on 022 Albumin [Mass/Vol] 3.9 g/dL Normal 3.4-5.0 [facility] Comment on above: Performed By: #### C BC #### [facility] [address] [place] [address] Dr. Scooby Irvin Albumin/Globulin [Mass ratio] 1.0 {ratio} Normal [facility] Comment on above: Performed By: #### C BC #### [facility] [address] [place] [address] Dr. Scooby Irvin ALP [Catalytic activity/Vol] 87 U/L Normal 46-116 [facility] Comment on above: Performed By: #### C BC #### [facility] [address] [place] [address] Dr. Scooby Irvin ALT [Catalytic activity/Vol] 29 U/L Normal 14-59 [facility] Comment on above: Performed By: #### C BC #### [facility] [address] [address] [address] Scooby Irvin Anion gap [Moles/Vol] 14.1 mmol/L Normal [facility] Comment on above: Performed By: #### C BC #### [facility] [address] [address] [address] Scooby Irvin AST [Catalytic activity/Vol] 38 U/L Critically high 15-37 [facility] Comment on above: Performed By: #### C BC #### [facility] [address] [address] [address] Scooby Irvin Bilirubin [Mass/Vol] 0.5 mg/dL Normal 0.2-1.0 [facility] Comment on above: Performed By: #### C BC #### [facility] [address] [place] [address] Dr. Scooby Irvin Calcium [Mass/Vol] 9.2 mg/dL Normal 8.5-10.1 [facility] Comment on above: Performed By: #### C BC #### [facility] [address] [place] [address] Dr. Scooby Irvin Chloride [Moles/Vol] 102 mmol/L Normal 98-107 [facility] Comment on above: Performed By: #### C BC #### [facility] [address] [place] [address] Dr. Scooby Irvin CO2 [Moles/Vol] 25.7 mmol/L Normal 21.0-32.0 [facility] Comment on above: Performed By: #### C BC #### [facility] [address] [place] [address] Dr. Scooby Irvin Creatinine [Mass/Vol] 0.76 mg/dL Normal 0.55-1.02 [facility] Comment on above: Performed By: #### C BC #### [facility] [address] [address] [address] Scooby Irvin EGFR-AF PAKISTANI >60 Normal >=60 [facility] Comment on above: Performed By: #### C BC #### [facility] [address] [place] [address] Dr. Scooby Irvin EGFR-NON AF PAKISTANI >60 Normal >=60 [facility] Comment on above: Performed By: #### C BC #### [facility] [address] [place] [address] Dr. Scooby Irvin Globulin (S) [Mass/Vol] 3.8 g/dL Normal T [facility] Comment on above: Performed By: #### C BC #### [facility] [address] [address] [address] Scooby Irvin Glucose [Mass/Vol] 104 mg/dL Normal 74-106 [facility] Comment on above: Performed By: #### C BC #### [facility] [address] [place] [address] Dr. Scooby Irvin Potassium [Moles/Vol] 4.8 mmol/L Normal 3.5-5.1 [facility] Comment on above: Performed By: #### C BC #### [facility] [address] [place] [address] Dr. Scooby Irvin Protein [Mass/Vol] 7.7 g/dL Normal 6.4-8.2 [facility] Comment on above: Performed By: #### C BC #### [facility] [address] [place] [address] Dr. Scooby Irvin Sodium [Moles/Vol] 137 mmol/L Normal 136-145 [facility] Comment on above: Performed By: #### C BC #### [facility] [address] [place] [address] Dr. Scooby Irvin Urea nitrogen [Mass/Vol] 9.0 mg/dL Normal 7.0-18.0 [facility] Comment on above: Performed By: #### C BC #### [facility] [address] [place] [address] Dr. Scooby Irvin Urea nitrogen/Creatinine [Mass ratio] 11.8 mg/mg Normal [facility] Comment on above: Performed By: #### C BC #### [facility] [address] [place] [address] Dr. Scooby Irvin Gastroenterology Office/Clin ic Noteon [...] done for her thyroid and cholesterol at [facility]. Alexandra denies having any other GI concerns [...] patient or guardian consented to allow [employer] to record this visit. JASS inclusion specialist and provider reviewed before signing. JASS: [...] 1 tab(s), Oral, TID levothyroxine, Daily NuLYTELY Cedar oral powder for reconstitution, See Instructions omeprazole, [...] influenza virus vaccine, inactivated 11/2020 Recorded Normal [facility] Comment on above: Result Comment: Elec tronically [...] omeprazole polyethylene glycol 3350 with electrolytes (NuLYTELY Cedar oral powder for reconstitution) simvastatin sulfasalazine (sulfasalazine [...] Unchanged polyethylene glycol 3350 with electrolytes (NuLYTELY Cedar oral powder for reconstitution) See instructions PER [...] treatment for. Chronic pancolonic ulcerative colitis Normal [facility] LIPID PROFILEon 09-27-2021 CHOL-HDL RATIO NORM SEE BELOW Normal [facility] Comment on above: Result Comment: 3.3 - 4.4 LOW RISK 4.4 - 7.1 AVERAGE RISK 7.1 - 11.0 MODERATE RISK >11.0 HIGH RISK Performed By: #### C MP, LIPID #### [facility] [address] [address] [address] Scooby Irvin Cholesterol [Mass/Vol] 235 mg/dL Critically high <=200 [facility] Comment on above: Performed By: #### C MP, LIPID #### [facility] [address] [address] [address] Scooby Irvin Cholesterol in HDL [Mass/Vol] 65 mg/dL Critically high 40-60 [facility] Comment on above: Performed By: #### C MP, LIPID #### [facility] [address] [address] [address] Scooby Irvin Cholesterol in LDL [Mass/Vol] 156.8 mg/dL Normal [facility] Comment on above: Performed By: #### C MP, LIPID #### [facility] [address] [address] [address] Scooby Irvin Cholesterol.total/Rachel sterol in HDL [Mass ratio] 3.6 {ratio} Normal [facility] Comment on above: Performed By: #### C MP, LIPID #### [facility] [address] [place] [address] Dr. Scooby Irvin HDL NORMAL > or = 60 mg/dl - LOW CARDIOVASCULAR RISK <40 mg/dl - HIGH CARDIOVASCULAR RISK Normal [facility] Comment on above: Performed By: #### C MP, LIPID #### [facility] [address] [place] [address] Dr. Scooby Irvin LDL CALC NORMAL SEE BELOW Normal [facility] Comment on above: Result Comment: <100 mg/dl OPTIMAL 100 - 129 mg/dl NEAR OR ABOVE OPTIMAL 130 - 159 mg/dl BORDERLINE HIGH 160 - 189 mg/dl HIGH >190 mg/dl VERY HIGH Performed By: #### C MP, LIPID #### [facility] [address] [place] [address] Dr. Scooby Irvin Triglyceride [Mass/Vol] 66 mg/dL Normal <=150 [facility] Comment on above: Performed By: #### C MP, LIPID #### [facility] [address] [place] [address] Dr. Scooby Irvin VLDL CALC 13.2 mg/dL Normal [facility] Comment on above: Performed By: #### C MP, LIPID #### [facility] [address] [place] [address] Dr. Scooby Irvin PROF 14(COMP METB)on 022 Albumin [Mass/Vol] 3.9 g/dL Normal 3.4-5.0 [facility] Comment on above: Performed By: #### C MP, LIPID #### [facility] [address] [place] [address] Dr. Scooby Irvin Albumin/Globulin [Mass ratio] 1.1 {ratio} Normal [facility] Comment on above: Performed By: #### C MP, LIPID #### [facility] [address] [place] [address] Dr. Scooby Irvin ALP [Catalytic activity/Vol] 87 U/L Normal 46-116 [facility] Comment on above: Performed By: #### C MP, LIPID #### [facility] [address] [place] [address] Dr. Scooby Irvin ALT [Catalytic activity/Vol] 27 U/L Normal 14-59 [facility] Comment on above: Performed By: #### C MP, LIPID #### [facility] [address] [address] [address] Scooby Irvin Anion gap [Moles/Vol] 16.9 mmol/L Normal [facility] Comment on above: Performed By: #### C MP, LIPID #### [facility] [address] [address] [address] Scooby Irvin AST [Catalytic activity/Vol] 21 U/L Normal 15-37 [facility] Comment on above: Performed By: #### C MP, LIPID #### [facility] [address] [place] [address] Dr. Scooby Irvin Bilirubin [Mass/Vol] 0.4 mg/dL Normal 0.2-1.0 [facility] Comment on above: Performed By: #### C MP, LIPID #### [facility] [address] [place] [address] Dr. Scooby Irvin Calcium [Mass/Vol] 8.7 mg/dL Normal 8.5-10.1 [facility] Comment on above: Performed By: #### C MP, LIPID #### [facility] [address] [place] [address] Dr. Scooby Irvin Chloride [Moles/Vol] 102 mmol/L Normal 98-107 [facility] Comment on above: Performed By: #### C MP, LIPID #### [facility] [address] [place] [address] Dr. Scooby Irvin CO2 [Moles/Vol] 22.0 mmol/L Normal 21.0-32.0 [facility] Comment on above: Performed By: #### C MP, LIPID #### [facility] [address] [place] [address] Dr. Scooby Irvin Creatinine [Mass/Vol] 0.73 mg/dL Normal 0.55-1.02 [facility] Comment on above: Performed By: #### C MP, LIPID #### [facility] [address] [place] [address] Dr. Scooby Irvin EGFR-AF PAKISTANI >60 Normal >=60 [facility] Comment on above: Performed By: #### C MP, LIPID #### [facility] [address] [place] [address] Dr. Scooby Irvin EGFR-NON AF PAKISTANI >60 Normal >=60 [facility] Comment on above: Performed By: #### C MP, LIPID #### [facility] [address] [place] [address] Dr. Scooby Irvin Globulin (S) [Mass/Vol] 3.7 g/dL Normal [facility] Comment on above: Performed By: #### C MP, LIPID #### [facility] [address] [place] [address] Dr. Scooby Irvin Glucose [Mass/Vol] 105 mg/dL Normal 74-106 [facility] Comment on above: Performed By: #### C MP, LIPID #### [facility] [address] [place] [address] Dr. Scooby Irvin Potassium [Moles/Vol] 3.9 mmol/L Normal 3.5-5.1 [facility] Comment on above: Performed By: #### C MP, LIPID #### [facility] [address] [place] [address] Dr. Scooby Irvin Protein [Mass/Vol] 7.6 g/dL Normal 6.4-8.2 [facility] Comment on above: Performed By: #### C MP, LIPID #### [facility] [address] [place] [address] Dr. Scooby Irvin Sodium [Moles/Vol] 137 mmol/L Normal 136-145 [facility] Comment on above: Performed By: #### C MP, LIPID #### [facility] [address] [place] [address] Dr. Scooby Irvin Urea nitrogen [Mass/Vol] 11.0 mg/dL Normal 7.0-18.0 [facility] Comment on above: Performed By: #### C MP, LIPID #### [facility] [address] [place] [address] Dr. Scooby Irvin Urea nitrogen/Creatinine [Mass ratio] 15.1 mg/mg Normal [facility] Comment on above: Performed By: #### C MP, LIPID #### [facility] [address] [place] [address] Dr. Scooby Irvin TSHon 09-27-2021 TSH 2.198 uIU/mL Normal 0.358-3.740 [facility] Comment on above: Performed By: #### T SH #### [facility] [address] [address] [address] Scooby Irvin [facility]11 SARS-CoV-2 (COVID-19) RNA ADELITA+probe Ql (Unsp spec) Not detected Normal NOT DETECTED [facility] Comment on above: Result Comment: This test is not yet approved or cleared by the [place] FDA. When there are no FDA-approved or cleared tests available, and other criteria are met, FDA can make tests available under an emergency access mechanism called an Emergency Use Authorization (EUA). The EUA for this test is supported by the [place] of Health and Human Service's (HHS's) declaration [...] SARS-CoV-2. Performed By: #### C BC #### [facility] [address] [place], [place] [address] Dr. Scooby Irvin TSHon 06-22-2021 TSH 2.326 uIU/mL Normal 0.358-3.740 [facility] Comment on above: Performed By: #### C BC #### [facility] [address] [address] [address] Scooby Irvin TSH RANGE SEE BELOW Normal [facility] Comment on above: Result Comment: <0.3 4 UIU/ml HYPERTHYROID 0.34-5.60 UIU/ml EUTHYROID >5.60 UIU/ml HYPOTHYROID Performed By: #### C #### [facility] [address] [place], [place] [address] Dr. Scooby Irvin ABO/Rh Retypeon 05-31-2021 ABO/RH Recheck Result Positive Normal [facility] Comment on above: Result Comment: PERF ORMED BY: [facility] [address] [place] [address] PATHOLOGIST DEV OPS ENGINEER TRICIA Yin 05-31-2021 L Specimen: [id number] Received: 05/31/21 Status: LIDIA Pineda Num: [id number] Spec Type: Surgical Subm Dr: Luis Gutierrez DO Tissues: A Parathyroid Gland (R/O PARATHYROID) B THYROID - Lobe (R SUBSTERNAL THYROID) Procedures: HE Stain/8, Gross/Micro L5, Gross/Micro L4 Patient Age/Sex Location Account Attending Physician Alexandra Cervantes 71/F [place] [id number] Luis Gutierrez DO SPEC NUM: [id number] RECD: 05/31/21 STATUS: LIDIA PINEDA NUM: [id number] KATHY: 05/31/21- SUBM DR: Luis Gutierrez DO ENTERED: 05/31/21-1057 [facility] DR: LANCE TYPE: Surgical DEPT: S ORDERED: [...] Specimen: Received: 05/31/21 Status: LIDIA Pineda Num: [id number] Spec Type: Surgical Subm Dr: Luis Gutierrez DO Tissues: A Parathyroid Gland (R/O PARATHYROID) B THYROID - Lobe (R SUBSTERNAL THYROID) Procedures: HE Stain/8, Gross/Micro L5, Gross/Micro L4 Patient: Alexandra Cervantes [id number] (Continued) Specimen: Received: 05/31/21 (Continued) Gross Description (Continued) Signed (signatur e on file) Tricia Oshea MD 06/01/21 1913 Specimen: Received: 05/31/21 Status: LIDIA Pineda Num: [id number] Spec Type: Surgical Subm Dr: Luis Gutierrez DO Tissues: A Parathyroid Gland (R/O PARATHYROID) B THYROID - Lobe (R SUBSTERNAL THYROID) Procedures: HE Stain/8, Gross/Micro L5, Gross/Micro L4 Patient: Alexandra Cervantes [id number] (Continued) Specimen: Received: 05/31/21 (Continued) Gross Description [...] microscopic findings support the above pathologic diagnosis. [id number], [id number] Specimen: [id number] Received: (more content not included)... Normal [facility] LeukoReduced RBCon 2 LeukoReduced RBC READY Normal [facility] Type and Screenon 05-31-2021 ABO and Rh group Nom (Bld) Blood group O Rh(D) positive Normal [facility] Comment on above: Order Comment: Trans fuse now? N Result Comment: PERF ORMED BY: [place] [address] PATHOLOGIST DEV OPS ENGINEER TRICIA OSHEA M.D. Basic Metabolic Panelon 05-12 Calcium [Mass/Vol] 9.5 mg/dL Normal 8.2-10.2 [facility] Comment on above: Result Comment: PERF ORMED BY: [facility] [address] [place] [address] PATHOLOGIST DEV OPS ENGINEER TRICIA OSHEA M.D. Performed By: #### C BC, BMP #### [facility] [address] [place] [address] [place] Chloride [Moles/Vol] 105 mmol/L Normal 95-114 [facility] Comment on above: Performed By: #### C BC, BMP #### [facility] [address] CO2 [Moles/Vol] 23.0 mmol/L Normal 22.0-30.0 [facility] Comment on above: Performed By: #### C BC, BMP #### [facility] [address] Creatinine [Mass/Vol] 0.66 mg/dL Normal 0.44-1.03 [facility] Comment on above: Performed By: #### C BC, BMP #### [facility] [address] [place] [address] [place] Estimated GFR ( Traci > 60 Normal [facility] Comment on above: Result Comment: GFR estimated reference range: According to KDOQI guidelines, <60 ml/min/1.73m2 is sufficient to diagnose a patient with chronic kidney disease. Performed By: #### C BC, BMP #### [address] Estimated GFR (Non- Am > 60 Normal [facility] Comment on above: Performed By: #### C BC, BMP #### [place] [address] [place] Glucose [Mass/Vol] 89 mg/dL Normal 70-100 [facility] Comment on above: Result Comment: [place] om Glucose Reference Range is dependent on time and content of last meal. Glucose of more than 200 mg/dL in a nonstressed, ambulatory subject supports the diagnosis of Diabetes Mellitus. ADA recommended reference range Performed By: #### C BC, BMP #### [place] [address] [place] Potassium [Moles/Vol] 4.0 mmol/L Normal 3.5-5.1 [facility] Comment on above: Performed By: #### C BC, BMP #### [place] [address] [place] Sodium [Moles/Vol] 137 mmol/L Normal 136-146 [facility] Comment on above: Performed By: #### C BC, BMP #### [place] [address] [place] Urea nitrogen [Mass/Vol] 10 mg/dL Normal 9-23 [facility] Comment on above: Performed By: #### C BC, BMP #### [facility] [address] [place] [address] [facility] Basophils Auto (Bld) [#/Vol] Ordered By: Luis Gutierrez on 05-26-2021 Basophils (Bld) [#/Vol] 0.1 10*3/uL 0.0-0.2 [facility] Basophils/100 WBC Auto (Bld) Ordered By: Luis Gutierrez on 05-26-2021 Basophils/100 WBC (Bld) 0.9 % [facility] Blood hemoglobin measurement (mass/volume)Ordered By: Luis Gutierrez on 05-26-2021 Hemoglobin (Bld) [Mass/Vol] 12.4 g/dL 11.8-15.4 [facility] Blood leukocytes automated c ount (number/volume)Ordered By: Luis Gutierrez on 05-26-2021 WBC (Bld) [#/Vol] 8.8 10*3/uL 4.5-11.0 [facility] COVID-19 FRMCon 05-26-2021 SARS-CoV-2 (COVID-19) RNA ADELITA+probe Ql (Unsp spec) Negative Normal Negative [facility] Comment on above: Order Comment: Healt hcare Worker?: N Result Comment: Testing for SARS-CoV-2 by RT-PCR This test was developed and its performance characteristics determined by [employer]) and validated at the [facility]. This test has not been [...] is terminated or revoked sooner. PERFORMED BY: [place] [address] PATHOLOGIST DEV OPS ENGINEER TRICIA OSHEA M.D. Performed By: #### C OVID 19 [facility] [place] #### [facility] [address] COVID-19 Positive/NegativeOr dered By: Luis Gutierrez on 05-26-2021 SARS-CoV-2 (COVID-19) N gene ADELITA+probe Ql (Resp) Negative Negative [facility] Comment on above: Testing for SARS-CoV -2 by RT-PCRThis test was developed and its performance characteristics determined by [employer]) and validated at the [facility]. This test has not been [...] 05-26-2021 Calcium [Mass/Vol] 9.4 mg/dL Normal 8.2-10.2 [facility] Comment on above: Performed By: #### C A, TSH3, PTH #### [address] Complete Blood Count Auto Di ffon 05-26-2021 Basophils (Bld) [#/Vol] 0.1 10*3/uL Normal 0.0-0.2 [facility] Comment on above: Result Comment: PERF ORMED BY: [place] [address] PATHOLOGIST DEV OPS ENGINEER TRICIA OSHEA M.D. Performed By: #### C BC, BMP #### [address] Basophils/100 WBC (Bld) 0.9 % Normal . [facility] Comment on above: Performed By: #### C BC, BMP #### [address] Eosinophils (Bld) [#/Vol] 0.0 10*3/uL Normal 0.0-0.45 [facility] Comment on above: Performed By: #### C BC, BMP #### [address] Eosinophils/100 WBC (Bld) 0.2 % Normal . [facility] Comment on above: Performed By: #### C BC, BMP #### [address] Erythrocyte distribution width (RBC) [Ratio] 16.1 % High 11.9-15.3 [facility] Comment on above: Performed By: #### C BC, BMP #### [address] Hematocrit (Bld) [Volume fraction] 37.5 % Normal 34.0-46.4 [facility] Comment on above: Performed By: #### C BC, BMP #### [address] Hemoglobin (Bld) [Mass/Vol] 12.4 g/dL Normal 11.8-15.4 [facility] Comment on above: Performed By: #### C BC, BMP #### [address] Lymphocytes (Bld) [#/Vol] 1.4 10*3/uL Normal 1.00-4.8 [facility] Comment on above: Performed By: #### C BC, BMP #### [address] Lymphocytes/100 WBC (Bld) 15.8 % Normal . [facility] Comment on above: Performed By: #### C BC, BMP #### [facility] [address] MCH (RBC) [Entitic mass] 29.2 pg Normal 24.7-34.3 [facility] Comment on above: Performed By: #### C BC, BMP #### [facility] [address] MCV (RBC) [Entitic vol] 88.3 fL Normal 80-100 [facility] Comment on above: Performed By: #### C BC, BMP #### [address] Mean Corpuscular HGB Conc 33.1 g/dL Normal 32.0-35.0 [facility] Comment on above: Performed By: #### C BC, BMP #### [address] Monocytes (Bld) [#/Vol] 0.7 10*3/uL Normal 0.0-0.8 [facility] Comment on above: Performed By: #### C BC, BMP #### [address] Monocytes/100 WBC (Bld) 7.7 % Normal . [facility] Comment on above: Performed By: #### C BC, BMP #### [address] Neutrophils (Bld) [#/Vol] 6.7 10*3/uL Normal 1.8-7.7 [facility] Comment on above: Performed By: #### C BC, BMP #### [address] Neutrophils/100 WBC (Bld) 75.4 % Normal . [facility] Comment on above: Performed By: #### C BC, BMP #### [address] Nucleated RBC/100 WBC (Bld) [Ratio] 0.1 % Normal 0-0.5 [facility] Comment on above: Performed By: #### C BC, BMP #### [facility] [address] Platelet mean volume (Bld) [Entitic vol] 8.6 fL Normal 6.3-10.7 [facility] Comment on above: Performed By: #### C KELSEY, BMP #### [facility] [address] [place] [address] [place] Platelets (Bld) [#/Vol] 241 10*3/uL Normal 150-450 [facility] Comment on above: Performed By: #### C KELSEY, BMP #### [facility] [address] RBC (Bld) [#/Vol] 4.24 10*6/uL Normal 3.60-5.00 [facility] Comment on above: Performed By: #### C KELSEY, BMP #### [facility] [address] WBC (Bld) [#/Vol] 8.8 10*3/uL Normal 4.5-11.0 [facility] Comment on above: Performed By: #### C KELSEY, BMP #### [address] Creatinine and Glomerular fi ltration rate.predicted panel (S/P/Bld)Ordered By: Luis Gutierrez on 05-26-2021 Creatinine [Mass/Vol] 0.66 mg/dL 0.44-1.03 [facility] ECG 12 lead ECGon 05-26-2021 ECG 12 lead ECG [facility] [address] [place] [address] Electrocardiograph Report Signed Patient: Alexandra Cervantes MR#: [id number] 2 : 1950 Acct:[id number] Age/Sex: 71 / F ADM Date: 05/26/21 Loc: Room: Type: [facility] Attending Dr: Luis Gutierrez DO Ordering Provider: [...] By Ashley Haines DO 05/27 0848 Normal [facility] Eosinophils Auto (Bld) [#/Vo l]Ordered By: Luis Gutierrez on 05-26-2021 Eosinophils (Bld) [#/Vol] 0.0 10*3/uL 0.0-0.45 [facility] Eosinophils/100 WBC Auto (Bl d)Ordered By: Luis Gutierrez on 05-26-2021 Eosinophils/100 WBC (Bld) 0.2 % [facility] Erythrocyte distribution wid th Auto (RBC) [Ratio]Ordered By: Luis Gutierrez on 05-26-2021 Erythrocyte distribution width (RBC) [Ratio] 16.1 % 11.9-15.3 [facility] Estimated glomerular filtrat ion rate (GFR) non- AmericanOrdered By: Luis Gutierrez on 05-26-2021 GFR/1.73 sq M.predicted among non-blacks MDRD (S/P/Bld) [Vol rate/Area] > 60 mL/Min [facility] Hematocrit Auto (Bld) [Volum e fraction]Ordered By: Luis Gutierrez on 05-26-2021 Hematocrit (Bld) [Volume fraction] 37.5 % 34.0-46.4 [facility] Laboratory - Hematology and Cell countsOrdered By: Luis Gutierrez on 05-26-2021 Nucleated RBC/100 WBC (Bld) [Ratio] 0.1 % 0-0.5 [facility] Lymphocytes Auto (Bld) [#/Vo l]Ordered By: Luis Gutierrez on 05-26-2021 Lymphocytes (Bld) [#/Vol] 1.4 10*3/uL 1.00-4.8 [facility] Lymphocytes/100 WBC Auto (Bl d)Ordered By: Luis Gutierrez on 05-26-2021 Lymphocytes/100 WBC (Bld) 15.8 % [facility] MCH Auto (RBC) [Entitic mass ]Ordered By: Luis Gutierrez on 05-26-2021 MCH (RBC) [Entitic mass] 29.2 pg 24.7-34.3 [facility] MCHC Auto (RBC) [Mass/Vol]Or dered By: Luis Gutierrez on 05-26-2021 MCHC (RBC) [Mass/Vol] 33.1 g/dL 32.0-35.[address] [facility] MCV Auto (RBC) [Entitic vol] Ordered By: Luis Gutierrez on 05-26-2021 MCV (RBC) [Entitic vol] 88.3 fL 80-100 [facility] Monocytes Auto (Bld) [#/Vol] Ordered By: Luis Gutierrez on 05-26-2021 Monocytes (Bld) [#/Vol] 0.7 10*3/uL 0.0-0.8 [facility] Monocytes/100 WBC Auto (Bld) Ordered By: Luis Gutierrez on 05-26-2021 Monocytes/100 WBC (Bld) 7.7 % [facility] Neutrophils Auto (Bld) [#/Vo l]Ordered By: Luis Gutierrez on 05-26-2021 Neutrophils (Bld) [#/Vol] 6.7 10*3/uL 1.8-7.7 [facility] Neutrophils/100 WBC Auto (Bl d)Ordered By: Luis Gutierrez on 05-26-2021 Neutrophils/100 WBC (Bld) 75.4 % [facility] No Panel InformationOrdered By: Luis Gutierrez on 05-26-2021 Estimated GFR () > 60 mL/Min [facility] Comment on above: GFR estimated refere nce range: According to KDOQI guidelines, <60 ml/min/1.73m2 is sufficient to diagnose a patient with chronic kidney disease. Pharmacy Creatinine Clearance (Chem N/A [facility] Parathyroid Hormone Intacton 05-26-2021 Parathyroid Hormone Intact 31.2 pg/mL Normal 12-88 [facility] Comment on above: Result Comment: PERF ORMED BY: [facility] [address] [place] [address] PATHOLOGIST DEV OPS ENGINEER TRICIA OSHEA M.D. Performed By: #### C BC, BMP #### [address] Platelet mean volume Auto (B ld) [Entitic vol]Ordered By: Luis Gutierrez on 05-26-2021 Platelet mean volume (Bld) [Entitic vol] 8.6 fL 6.3-10.7 [facility] Platelets Auto (Bld) [#/Vol] Ordered By: Luis Gutierrez on 05-26-2021 Platelets (Bld) [#/Vol] 241 10*3/uL 150-450 [facility] RBC Auto (Bld) [#/Vol]Ordere d By: Luis Gutierrez on 05-26-2021 RBC (Bld) [#/Vol] 4.24 10*6/uL 3.60-5.00 [facility] Serum or plasma calcium joseph urement (mass/volume)Ordered By: Luis Gutierrez on 05-26-2021 Calcium [Mass/Vol] 9.4 mg/dL 8.2-10.2 [facility] Serum or plasma chloride liv surement (moles/volume)Ordered By: Luis Gutierrez on 05-26-2021 Chloride [Moles/Vol] 105 mmol/L 95-114 [facility] Serum or plasma glucose joseph urement (mass/volume)Ordered By: Luis Gutierrez on 05-26-2021 Glucose [Mass/Vol] 89 mg/dL 70-100 [facility] Comment on above: ADA recommended refe rence rangeRandom Glucose Reference Range is dependent on time and content of last meal. Glucose of more than 200 mg/dL in a nonstressed, ambulatory subject supports the diagnosis of Diabetes Mellitus. Serum or plasma intact parat hyroid hormone measurement (mass/volume)Ordered By: Luis Gutierrez on 05-26-2021 Parathyrin.intact [Mass/Vol] 31.2 pg/mL 12-88 [facility] Serum or plasma potassium me asurement (moles/volume)Ordered By: Luis Gutierrez on 05-26-2021 Potassium [Moles/Vol] 4.0 mmol/L 3.5-5.1 [facility] Serum or plasma sodium measu rement (moles/volume)Ordered By: Luis Gutierrez on 05-26-2021 Sodium [Moles/Vol] 137 mmol/L 136-146 [facility] Serum or plasma total carbon dioxide measurement (moles/volume)Ordered By: Luis Gutierrez on 05-26-2021 CO2 [Moles/Vol] 23.0 mmol/L 22.0-30.0 [facility] Serum or plasma urea nitroge n measurement (mass/volume)Ordered By: Luis Gutierrez on 05-26-2021 Urea nitrogen [Mass/Vol] 10 mg/dL 11-03 [facility] TSH DL <= 0.005 mIU/L QnOrde red By: Luis Gutierrez on 05-26-2021 TSH Qn 0.86 m[IU]/L 0.45-5.33 [facility] Thyroid Stimulating Hormoneo n 05-26-2021 TSH Qn 0.86 m[IU]/L Normal 0.45-5.33 [facility] Comment on above: Performed By: #### C A, TSH3, PTH #### [address] MG MAMM SCREEN 3D GEORGES CADon 05-22-2021 MG MAMM SCREEN 3D GEORGES CAD Patient: ALEXANDRA CERVANTES Exam Date: 05/22/2021 : 1950 Gender:F Ordering : DR DANYELL MORALES M.D. Admission #: [id number] Family : Order #: [id number] CLICK HERE TO VIEW EXAM RADIOLOGY REPORT [...] Treatments None Family Cancers None LOCATION: [facility] BREAST COMPOSITION: Scattered areas fibroglandular density. [...] Killian MD on 05/22/2021 at 12:[address] [facility] [address] Chest w/Contraston 2021 CT Chest w/Contrast Please see CT neck report dated: 05/17/2021. Report reported and signed by Valente Lion on 05/22/2021 1528 Normal [facility] CT Soft Tissue Neck w/ Contr [...] by Valente Lion on 05/22/2021 1528 Normal [facility] Office/Clin ic Noteon 05-11-2021 Gastroenterology Office/Clinic [...] Phani Celeste to record this visit. JASS inclusion specialist and provider reviewed before signing. JASS: Lillie Santiago. Follow-up With When Contact Information JANINA ALARCON, LENORE Farooq MED Within 6 months [facility] [address] [place] [address]- Additional Instructions: Problem List/Past Medical History Ongoing [...] 1 tab(s), Oral, TID levothyroxine, Daily NuLYTELY Cedar oral powder for reconstitution, See Instructions omeprazole, [...] influenza virus vaccine, inactivated 11/2020 Recorded Normal [facility] Comment on above: Result Comment: Elec tronically [...] omeprazole polyethylene glycol 3350 with electrolytes (NuLYTELY Cedar oral powder for reconstitution) simvastatin Procedures Performed Colonoscopy, flexible; with biopsy, single or multiple (02/16/2020), Colonoscopy. Discharge Vitals Blood Pressure 180/90 Height 150.0 cm Height 150 cm Weight 71.0 kg Weight 71 kg BMI 31.56 What to do next You Need to Schedule the Following Appointments Follow Up with JANINA ALARCON, Farooq, GAS, MED When: Within 6 months Where: [facility] [address] [place] [address]- Medications What How Much When Why Instructions Changed sulfasalazine (sulfasalazine 500 mg Tab) 2 Tablets By Mouth 3 times a day Pickup at [id number] Unchanged alprazolam By Mouth Contact prescribing [...] Unchanged polyethylene glycol 3350 with electrolytes (NuLYTELY Cedar oral powder for reconstitution) See instructions PER PHYS INSRTUCTIONS Contact prescribing physician if questions or concerns Unchanged simvastatin By Mouth Contact prescribing physician if questions or concerns Pharmacy Information [facility] #[id number]: [address], [place] [id number] [phone] Allergies No Known Allergies Problems Ongoing - Any problem that you are currently receiving treatment for. Chronic pancolonic ulcerative colitis Normal [facility] [place] esophaguson 05-04-2021 [place] esophagus [facility] [address] [place] [id number] Fluoroscopy Report Signed Patient: Alexandra Cervantes MR#: [id number] 2 : 1950 Acct:[id number] Age/Sex: 71 / F ADM Date: 05/04/21 Loc: XD Room: Type: [facility] Attending Dr: Cy Sears MD Ordering [...] Kitchen Jr., M.D.05/04/2021 3:37 PM Dictation Location: [place] [address] Transcribed By: [facility] 05/04/211536 Dictated By: Selvin Kitchen Jr, MD 05/04/21 153 Signed By: 05/04/21 1537 Normal [facility] Lab Reportson 04-26-2021 Lab Reports [id number]:[id number] Normal [facility] CBC AUTO DIFFon 04-20-2021 BASO # 0.1 103/ul Normal 0.0-0.1 [facility] Comment on above: Performed By: #### C BC #### [facility] [address] [place] [address] Dr. Scooby Irvin Basophils/100 WBC (Bld) 0.4 % Normal 0.2-2.0 [facility] Comment on above: Performed By: #### C BC #### [facility] [address] [place] [address] Dr. Scooby Irvin EO # 0.0 103/ul Normal 0.0-0.7 [facility] Comment on above: Performed By: #### C BC #### [facility] [address] [place] [address] Dr. Scooby Irvin Eosinophils/100 WBC (Bld) 0.2 % Critically low 0.9-7.0 [facility] Comment on above: Performed By: #### C BC #### [facility] [address] [place] [address] Dr. Scooby Irvin Erythrocyte distribution width (RBC) [Ratio] 16.7 % Critically high 11.0-15.0 [facility] Comment on above: Performed By: #### C BC #### [facility] [address] [place] [address] Dr. Scooby Irvin Hematocrit (Bld) [Volume fraction] 37.6 % Normal 36.0-48.0 [facility] Comment on above: Performed By: #### C BC #### [facility] [address] [place] [address] Dr. Scooby Irvin Hemoglobin (Bld) [Mass/Vol] 12.0 g/dL Normal 12.0-16.0 [facility] Comment on above: Performed By: #### C BC #### [facility] [address] [place] [address] Dr. Scooby Irvin IG # 0.02 10e3/ul Normal 0.00-0.03 [facility] Comment on above: Performed By: #### C BC #### [facility] [address] [place] [address] Dr. Scooby Irvin IG % 0.2 % Normal 0.0-0.5 [facility] Comment on above: Performed By: #### C BC #### [facility] [address] [place] [address] Dr. Scooby Irvin LYMPH # 1.6 103/ul Normal 1.2-3.8 [facility] Comment on above: Performed By: #### C BC #### [facility] [address] [place] [address] Dr. Scooby Irvin Lymphocytes/100 WBC (Bld) 13.6 % Critically low 20.5-60.0 [facility] Comment on above: Performed By: #### C BC #### [facility] [address] [place] [address] Dr. Scooby Irvin MANUAL DIFF REQ NO Normal [facility] Comment on above: Performed By: #### C BC #### [facility] [address] [address] [address] Scooby Irvin MCH (RBC) [Entitic mass] 28.6 pg Normal 26.7-34.0 [facility] Comment on above: Performed By: #### C BC #### [facility] [address] [address] [address] Scooby Irvin MCHC (RBC) [Mass/Vol] 31.9 g/dL Normal 29.9-35.2 [facility] Comment on above: Performed By: #### C BC #### [facility] [address] [address] [address] Scooby Irvin MCV (RBC) [Entitic vol] 89.5 fL Normal 81.0-99.0 [facility] Comment on above: Performed By: #### C BC #### [facility] [address] [place] [address] Dr. Scooby Irvin MONO # 0.7 103/ul Normal 0.3-0.8 [facility] Comment on above: Performed By: #### C BC #### [facility] [address] [place] [address] Dr. Scooby Irvin Monocytes/100 WBC (Bld) 5.8 % Normal 1.7-12.0 [facility] Comment on above: Performed By: #### C BC #### [facility] [address] [place] [address] Dr. Scooby Irvin NEUT # 9.1 103/ul Critically high 1.4-6.5 [facility] Comment on above: Performed By: #### C BC #### [facility] [address] [place] [address] Dr. Scooby Irvin Neutrophils/100 WBC (Bld) 79.8 % Critically high 43.0-75.0 [facility] Comment on above: Performed By: #### C BC #### [facility] [address] [place] [address] Dr. Scooby Irvin Platelet mean volume (Bld) [Entitic vol] 10.2 fL Normal 9.5-13.5 [facility] Comment on above: Performed By: #### C BC #### [facility] [address] [place] [address] Dr. Scooby Irvin PLT 217 103/ul Normal 150-450 [facility] Comment on above: Performed By: #### C BC #### [facility] [address] [place] [address] Dr. Scooby Irvin RBC 4.20 106/ul Normal 4.20-5.40 [facility] Comment on above: Performed By: #### C BC #### [facility] [address] [place] [address] Dr. Scooby Irvin WBC 11.4 103/ul Critically high 4.0-11.0 [facility] Comment on above: Performed By: #### C BC #### [facility] [address] [place] [address] Dr. Scooby Irvin PROF 14(COMP METB)on 022 Albumin [Mass/Vol] 3.9 g/dL Normal 3.5-5.0 [facility] Comment on above: Performed By: #### C MP #### [facility] [address] [place] [address] Dr. Scooby Irvin Albumin/Globulin [Mass ratio] 1.1 {ratio} Normal [facility] Comment on above: Performed By: #### C MP #### [facility] [address] [place] [address] Dr. Scooby Irvin ALP [Catalytic activity/Vol] 72 U/L Normal 38-126 [facility] Comment on above: Performed By: #### C MP #### [facility] [address] [place] [address] Dr. Scooby Irvin ALT [Catalytic activity/Vol] 23 U/L Normal 9-52 [facility] Comment on above: Performed By: #### C MP #### [facility] [address] [place] [address] Dr. Scooby Irvin Anion gap [Moles/Vol] 10.2 mmol/L Normal [facility] Comment on above: Performed By: #### C MP #### [facility] [address] [address] [address] Scooby Irvin AST [Catalytic activity/Vol] 20 U/L Normal 14-36 [facility] Comment on above: Performed By: #### C MP #### [facility] [address] [address] [address] Scooby Irvin Bilirubin [Mass/Vol] 0.5 mg/dL Normal 0.2-1.3 [facility] Comment on above: Performed By: #### C MP #### [facility] [address] [address] [address] Scooby Irvni Calcium [Mass/Vol] 8.8 mg/dL Normal 8.4-10.2 [facility] Comment on above: Performed By: #### C MP #### [facility] [address] [address] [address] Scooby Irvin Chloride [Moles/Vol] 104 mmol/L Normal 98-107 [facility] Comment on above: Performed By: #### C MP #### [facility] [address] [address] [address] Scooby Irvin CO2 [Moles/Vol] 28.0 mmol/L Normal 22.0-30.0 [facility] Comment on above: Performed By: #### C MP #### [facility] [address] [address] [address] Scooby Irvin Creatinine [Mass/Vol] 0.87 mg/dL Normal 0.52-1.04 [facility] Comment on above: Performed By: #### C MP #### [facility] [address] [address] [address] Scooby Irvin EGFR-AF PAKISTANI >60 Normal >=60 [facility] Comment on above: Performed By: #### C MP #### [facility] [address] [place] [address] Dr. Scooby Irvin EGFR-NON AF PAKISTANI >60 Normal >=60 [facility] Comment on above: Performed By: #### C MP #### [facility] [address] [place] [address] Dr. Scooby Irvin Globulin (S) [Mass/Vol] 3.5 g/dL Normal T [facility] Comment on above: Performed By: #### C MP #### [facility] [address] [place] [address] Dr. Scooby Irvin Glucose [Mass/Vol] 93 mg/dL Normal 74-106 [facility] Comment on above: Performed By: #### C MP #### [facility] [address] [place] [address] Dr. Scooby Irvin Potassium [Moles/Vol] 4.2 mmol/L Normal 3.4-5.0 [facility] Comment on above: Performed By: #### C MP #### [facility] [address] [place] [address] Dr. Scooby Irvin Protein [Mass/Vol] 7.4 g/dL Normal 6.1-8.2 [facility] Comment on above: Performed By: #### C MP #### [facility] [address] [place] [address] Dr. Scooby Irvin Sodium [Moles/Vol] 138 mmol/L Normal 137-145 [facility] Comment on above: Performed By: #### C MP #### [facility] [address] [place] [address] Dr. Scooby Irvin Urea nitrogen [Mass/Vol] 15.0 mg/dL Normal 7.0-17.0 [facility] Comment on above: Performed By: #### C MP #### [facility] [address] [place] [address] Dr. Scooby Irvin Urea nitrogen/Creatinine [Mass ratio] 17.2 mg/mg Normal [facility] Comment on above: Performed By: #### C MP #### [facility] [address] [place] [address] Dr[address] SKULL BASE [...] by: VALENTE BARRETO Date: 2021-04-07 08:[address] [facility] [address] LUNG CANCER SCREENINGon 0 03-23-2021 [...] VALENTE BARRETO Date: 2021-03-23 09:57 Normal [facility] CBC AUTO DIFFon 03-09-2021 BASO # 0.1 103/ul Normal 0.0-0.1 [facility] [facility] Comment on above: Performed By: #### C BC #### [facility] [address] [place] [address] Dr. Scooby Irvin Basophils/100 WBC (Bld) 1.2 % Normal 0.2-2.0 [facility] Comment on above: Performed By: #### C BC #### [facility] [address] [place] [address] Dr. Scooby Irvin EO # 0.1 103/ul Normal 0.0-0.7 [facility] Comment on above: Performed By: #### C BC #### [facility] [address] [place] [address] Dr. Scooby Irvin Eosinophils/100 WBC (Bld) 1.4 % Normal 0.9-7.0 [facility] Comment on above: Performed By: #### C BC #### [facility] [address] [place] [address] Dr. Scooby Irvin Erythrocyte distribution width (RBC) [Ratio] 16.3 % Critically high 11.0-15.0 [facility] Comment on above: Performed By: #### C BC #### [facility] [address] [place] [address] Dr. Scooby Irvin Hematocrit (Bld) [Volume fraction] 39.6 % Normal 36.0-48.0 [facility] Comment on above: Performed By: #### C BC #### [facility] [address] [place] [address] Dr. Scooby Irvin Hemoglobin (Bld) [Mass/Vol] 12.6 g/dL Normal 12.0-16.0 [facility] Comment on above: Performed By: #### C BC #### [facility] [address] [place] [address] Dr. Scooby Irvin IG # 0.01 10e3/ul Normal 0.00-0.03 [facility] Comment on above: Performed By: #### C BC #### [facility] [address] [place] [address] Dr. Scooby Irvin IG % 0.2 % Normal 0.0-0.5 [facility] Comment on above: Performed By: #### C BC #### [facility] [address] [place] [address] Dr. Scooby Irvin LYMPH # 1.6 103/ul Normal 1.2-3.8 [facility] Comment on above: Performed By: #### C BC #### [facility] [address] [place] [address] Dr. Scooby Irvin Lymphocytes/100 WBC (Bld) 30.7 % Normal 20.5-60.0 [facility] Comment on above: Performed By: #### C BC #### [facility] [address] [place] [address] Dr. Scooby Irvin MANUAL DIFF REQ NO Normal [facility] Comment on above: Performed By: #### C BC #### [facility] [address] [place] [address] Dr. Scooby Irvin MCH (RBC) [Entitic mass] 28.4 pg Normal 26.7-34.0 [facility] Comment on above: Performed By: #### C BC #### [facility] [address] [place] [address] Dr. Scooby Irvin MCHC (RBC) [Mass/Vol] 31.8 g/dL Normal 29.9-35.2 [facility] Comment on above: Performed By: #### C BC #### [facility] [address] [place] [address] Dr. Scooby Irvin MCV (RBC) [Entitic vol] 89.2 fL Normal 81.0-99.0 [facility] Comment on above: Performed By: #### C BC #### [facility] [address] [place] [address] Dr. Scooby Irvin MONO # 0.6 103/ul Normal 0.3-0.8 [facility] Comment on above: Performed By: #### C BC #### [facility] [address] [place] [address] Dr. Scooby Irvin Monocytes/100 WBC (Bld) 11.5 % Normal 1.7-12.0 [facility] Comment on above: Performed By: #### C BC #### [facility] [address] [place] [address] Dr. Scooby Irvin NEUT # 2.8 103/ul Normal 1.4-6.5 [facility] Comment on above: Performed By: #### C BC #### [facility] [address] [place] [address] Dr. Scooby Irvin Neutrophils/100 WBC (Bld) 55.0 % Normal 43.0-75.0 [facility] Comment on above: Performed By: #### C BC #### [facility] [address] [place] [address] Dr. Scooby Irvin Platelet mean volume (Bld) [Entitic vol] 10.3 fL Normal 9.5-13.5 [facility] Comment on above: Performed By: #### C BC #### [facility] [address] [place] [address] Dr. Scooby Irvin PLT 208 103/ul Normal 150-450 [facility] Comment on above: Performed By: #### C BC #### [facility] [address] [place] [address] Dr. Scooby Irvin RBC 4.44 106/ul Normal 4.20-5.40 [facility] Comment on above: Performed By: #### C BC #### [facility] [address] [place] [address] Dr. Scooby Irvin WBC 5.1 103/ul Normal 4.0-11.0 [facility] Comment on above: Performed By: #### C BC #### [facility] [address] [place], [place] [address] Dr. Scooby Irvin FREE T4on 03-09-2021 Free T4 [Mass/Vol] 1.15 ng/dL Normal 0.78-2.19 [facility] Comment on above: Performed By: #### C BC #### [facility] [address] [place] [address] [address] Scooby Irvin LIPID PROFILEon 03-09-2021 CHOL-HDL RATIO NORM SEE BELOW Normal [facility] Comment on above: Result Comment: 3.3 - 4.4 LOW RISK 4.4 - 7.1 AVERAGE RISK 7.1 - 11.0 MODERATE RISK >11.0 HIGH RISK Performed By: #### L IPID, CMP, TSH #### [facility] [address] [address] [address] Scooby Irvin Cholesterol [Mass/Vol] 227 mg/dL Critically high <=200 [facility] Comment on above: Performed By: #### L IPID, CMP, TSH #### [facility] [address] [address] [address] Scooby Irvin Cholesterol in HDL [Mass/Vol] 65 mg/dL Normal [facility] Comment on above: Performed By: #### L IPID, CMP, TSH #### [facility] [address] [address] [address] Scooby Irvin Cholesterol in LDL [Mass/Vol] 142.6 mg/dL Normal [facility] Comment on above: Performed By: #### L IPID, CMP, TSH #### [facility] [address] [place], [place] [address] Dr. Scooby Irvin Cholesterol.total/Rachel sterol in HDL [Mass ratio] 3.5 {ratio} Normal [facility] Comment on above: Performed By: #### L IPID, CMP, TSH #### [facility] [address] [address] [address] Scooby Irvin HDL NORMAL > or = 60 mg/dl - LOW CARDIOVASCULAR RISK <40 mg/dl - HIGH CARDIOVASCULAR RISK Normal [facility] Comment on above: Performed By: #### L IPID, CMP, TSH #### [facility] [address] [address] [address] Scooby Irvin LDL CALC NORMAL SEE BELOW Normal [facility] Comment on above: Result Comment: <100 mg/dl OPTIMAL 100 - 129 mg/dl NEAR OR ABOVE OPTIMAL 130 - 159 mg/dl BORDERLINE HIGH 160 - 189 mg/dl HIGH >190 mg/dl VERY HIGH Performed By: #### L IPID, CMP, TSH #### [facility] [address] [address] [address] Scooby Irvin Triglyceride [Mass/Vol] 97 mg/dL Normal <=150 T [facility] Comment on above: Performed By: #### L IPID, CMP, TSH #### [facility] [address] [address] [address] Scooby Irvin VLDL CALC 19.4 mg/dL Normal [facility] Comment on above: Performed By: #### L IPID, CMP, TSH #### [facility] [address] [place] [address] Dr. Scooby Irvin PROF 14(COMP METB)on 022 Albumin [Mass/Vol] 4.0 g/dL Normal 3.5-5.0 [facility] Comment on above: Performed By: #### L IPID, CMP, TSH #### [facility] [address] [address] [address] Scooby Irvin Albumin/Globulin [Mass ratio] 1.1 {ratio} Normal [facility] Comment on above: Performed By: #### L IPID, CMP, TSH #### [facility] [address] [address] [address] Scooby Irvin ALP [Catalytic activity/Vol] 80 U/L Normal 38-126 [facility] Comment on above: Performed By: #### L IPID, CMP, TSH #### [facility] [address] [address] [address] Scooby Irvin ALT [Catalytic activity/Vol] 35 U/L Normal 9-52 [facility] Comment on above: Performed By: #### L IPID, CMP, TSH #### [facility] [address] [address] [address] Scooby Irvin Anion gap [Moles/Vol] 11.8 mmol/L Normal Th [facility] Comment on above: Performed By: #### L IPID, CMP, TSH #### [facility] [address] [place] [address] Dr. Scooby Irvin AST [Catalytic activity/Vol] 24 U/L Normal 14-36 [facility] Comment on above: Performed By: #### L IPID, CMP, TSH #### [facility] [address] [place] [address] Dr. Scooby Irvin Bilirubin [Mass/Vol] 0.5 mg/dL Normal 0.2-1.3 [facility] Comment on above: Performed By: #### L IPID, CMP, TSH #### [facility] [address] [place] [address] Dr. Scooby Irvin Calcium [Mass/Vol] 9.3 mg/dL Normal 8.4-10.2 [facility] Comment on above: Performed By: #### L IPID, CMP, TSH #### [facility] [address] [place] [address] Dr. Scooby Irvin Chloride [Moles/Vol] 105 mmol/L Normal 98-107 [facility] Comment on above: Performed By: #### L IPID, CMP, TSH #### [facility] [address] [place] [address] Dr. Scooby Irvin CO2 [Moles/Vol] 26.2 mmol/L Normal 22.0-30.0 [facility] Comment on above: Performed By: #### L IPID, CMP, TSH #### [facility] [address] [place] [address] Dr. Scooby Irvin Creatinine [Mass/Vol] 0.83 mg/dL Normal 0.52-1.04 [facility] Comment on above: Performed By: #### L IPID, CMP, TSH #### [facility] [address] [place] [address] Dr. Scooby Irvin EGFR-AF PAKISTANI >60 Normal >=60 [facility] Comment on above: Performed By: #### L IPID, CMP, TSH #### [facility] [address] [place] [address] Dr. Scooby Irvin EGFR-NON AF PAKISTANI >60 Normal >=60 [facility] Comment on above: Performed By: #### L IPID, CMP, TSH #### [facility] [address] [place] [address] Dr. Scooby Irvin Globulin (S) [Mass/Vol] 3.8 g/dL Normal [facility] Comment on above: Performed By: #### L IPID, CMP, TSH #### [facility] [address] [place] [address] Dr. Scooby Irvin Glucose [Mass/Vol] 112 mg/dL Critically high 74-106 [facility] Comment on above: Performed By: #### L IPID, CMP, TSH #### [facility] [address] [place] [address] Dr. Scooby Irvin Potassium [Moles/Vol] 4.0 mmol/L Normal 3.4-5.0 [facility] Comment on above: Performed By: #### L IPID, CMP, TSH #### [facility] [address] [place] [address] Dr. Scooby Irvin Protein [Mass/Vol] 7.8 g/dL Normal 6.1-8.2 [facility] Comment on above: Performed By: #### L IPID, CMP, TSH #### [facility] [address] [place] [address] Dr. Scooby Irvin Sodium [Moles/Vol] 139 mmol/L Normal 137-145 [facility] Comment on above: Performed By: #### L IPID, CMP, TSH #### [facility] [address] [place] [address] Dr. Scooby Irvin Urea nitrogen [Mass/Vol] 15.0 mg/dL Normal 7.0-17.0 [facility] Comment on above: Performed By: #### L IPID, CMP, TSH #### [facility] [address] [address] [address] Scooby Irvin Urea nitrogen/Creatinine [Mass ratio] 18.1 mg/mg Normal [facility] Comment on above: Performed By: #### L IPID, CMP, TSH #### [facility] [address] [address] [address] Scooby Irvin TSHon 03-09-2021 TSH 2.761 uIU/mL Normal 0.470-4.680 [facility] Comment on above: Performed By: #### L IPID, CMP, TSH #### [facility] [address] [address] [address] Scooby Irvin TSH RANGE SEE BELOW Normal [facility] Comment on above: Result Comment: <0.3 4 UIU/ml HYPERTHYROID 0.34-5.60 UIU/ml EUTHYROID >5.60 UIU/ml HYPOTHYROID Performed By: #### L IPID, CMP, TSH #### [facility] [address] [address] [address] Scooby Irvin Vital Signs Date Time Vital Sign Value Performing Clinician Facility 09-04-2022 09:00-0400 Body height 140.97 cm Danyell Morales Other [facility] Other 09-04-2022 09:00-0400 Body mass index (BMI) [Ratio] 36.74 kg/m2 Danyell Morales Other [facility] Other 09-04-2022 09:00-0400 Body weight 73.03 kg Danyell Morales Other [facility] Other 09-04-2022 09:00-0400 Diastolic blood pressure 78 mm[Hg] Danyell Morales Other [facility] Other 09-04-2022 09:00-0400 SaO2% (BldA) [Mass fraction] 97 % Danyell Morales Other [facility] Other 09-04-2022 09:00-0400 Systolic blood pressure 132 mm[Hg] Danyell Morales Other [facility] Other 03-01-2022 10:30-0500 Body height 140.97 cm Dnayell Morales Other [facility] Other 03-01-2022 10:30-0500 Body mass index (BMI) [Ratio] 36.06 kg/m2 Danyell Morales Other [facility] Other 03-01-2022 10:30-0500 Body weight 71.67 kg Danyell Morales Other [facility] Other 03-01-2022 10:30-0500 Diastolic blood pressure 84 mm[Hg] Danyell Morales Other [facility] Other 03-01-2022 10:30-0500 SaO2% (BldA) [Mass fraction] 98 % Danyell Morales Other [facility] Other 03-01-2022 10:30-0500 Systolic blood pressure 132 mm[Hg] Danyell Morales Other [facility] Other 11-08-2021 10:17-0400 Diastolic blood pressure 74 mm[Hg] Farooq SALAM [facility] 11-08-2021 10:17-0400 Mean blood pressure 99 mm[Hg] Farooq SALAM [facility] 11-08-2021 10:17-0400 Systolic blood pressure 148 mm[Hg] Farooq SALAM [facility] 11-08-2021 10:15-0400 Blood Pressure Location Farooq SALAM [facility] 11-08-2021 10:15-0400 Diastolic blood pressure 95 mm[Hg] Farooq SALAM [facility] 11-08-2021 10:15-0400 Heart rate 78 /min Farooq SALAM [facility] 11-08-2021 10:15-0400 Respiratory rate 16 /min Farooq SALAM [facility] 11-08-2021 10:15-0400 Systolic blood pressure 159 mm[Hg] Farooq SALAM [facility] 05-10-2021 11:11-0400 Diastolic blood pressure 90 mm[Hg] Farooq SALAM [facility] 05-10-2021 11:11-0400 Systolic blood pressure 180 mm[Hg] Farooq SALAM [facility] Encounters Encounter Date Encounter Type Care Provider Facility Start: 09-10-2023 End: 09-10-2023 ambulatory DANIELLE LOPEZ Not Available Start: 08-26-2023 End: 08-26-2023 ambulatory JASIEL BRYANT Not Available Start: 03-07-2023 End: 03-07-2023 ambulatory Danyell Morales Other [facility] Other Start: 03-07-2023 Office outpatient vi sit 15 minutes Danyell Morales [facility] [place] [facility] Start: 09-20-2022 End: 09-20-2022 ambulatory Danyell Morales Other [facility] Other Start: 09-20-2022 Telephone encounter Danyell Morales [facility] [place] [facility] Start: 09-04-2022 End: 09-04-2022 ambulatory Danyell Morales Other [facility] Other Start: 09-04-2022 Patient encounter procedure Danyell Morales [facility] Start: 04-19-[address] DANYELL MORALES Facil ity:[facility] Start: 03-01-2022 End: 03-01-2022 ambulatory Danyell Morales Other [facility] Other Start: 03-01-2022 Office outpatient vi sit 15 minutes Danyell Morales [facility] [place] [facility] Start: 01-18-2022 End: 01-19-[address] DANYELL MORALES Facility:[facility] Start: 11-21-2021 End: 11-22-2021 ambulatory FAROOQ SALAM Facility:[facility] Start: 11-08-2021 End: 11-09-2021 ambulatory [facility] Facility:[facility] Start: 11-08-2021 End: 11-08-2021 Patient encounter procedure [facility] Start: 10-19-2021 End: 10-20-[address] DANYELL MORALES Facility:[facility] Start: 09-27-2021 End: 09-28-[address] DANYELL MORALES Facility:[facility] Start: 09-26-2021 End: 09-26-[address] DANYELL MORALES Facility:[facility] Start: 09-25-2021 Encounter for preprocedural laboratory examination DR RADHA IRAHETA [facility] Start: 09-22-2021 End: 09-23-[address] DANYELL MORALES Facility:[facility] Start: 09-22-2021 End: 09-23-2021 Encounter for preprocedural laboratory examination DR DANYELL MORALES Facility:[facility] Start: 09-11-[address] DANYELL MORALES Facil ity:[facility] Start: 09-06-2021 End: 09-07-2021 ambulatory ROBERTO MCNALLY Facility:[facility] Start: 08-30-2021 Adult health examination Malia Morales Other [facility] Other Start: 06-22-2021 End: 06-23-2021 ambulatory CAPRI ROA Facility:[facility] Start: 05-31-2021 End: 05-31-2021 ambulatory Luis Gutierrez Facility:[facility] Start: 05-26-2021 End: 05-26-2021 ambulatory Danyell Morales Facility:[facility] Start: 05-26-2021 End: 05-26-2021 Patient encounter procedure MD Cy Sears Work Phone: [facility] Start: 05-22-2021 End: 05-23-[address] DANYELL MORALES Facility:[facility] Start: 05-10-2021 ambulatory Farooq SALAM [facility] Start: 05-10-2021 End: 05-11-2021 ambulatory Farooq [facility] Facility:[facility] Start: 05-10-2021 End: 05-10-2021 Patient encounter procedure Farooq SAL [facility] Start: 05-09-2021 ambulatory Farooqsabrina SYEDAM [facility] Start: 05-04-2021 End: 05-04-2021 ambulatory Cy Sears Facility:[facility] Start: 05-04-2021 End: 05-04-2021 Patient encounter procedure MD Cy Sears Work Phone: [facility] Start: 04-20-2021 End: 04-21-2021 ambulatory FAROOQ SALAM Facility:[facility] Start: 04-05-2021 ambulatory Capri SYEDAM [facility] Start: 04-01-2021 End: 04-02-[address] DANYELL MORALES Facility:[facility] Start: 03-23-2021 End: 03-24-[address] DANYELL MORALES Facility:[facility] Start: 03-09-2021 End: 03-10-[address] DANYELL MORALES Facility:[facility] Start: 01-24-2021 ambulatory Capri ROA Facility:[facility] Procedures Date Procedure Procedure Detail Performing Clinician Start: 05-31-2021 Antibody screen Benjconstance Gutierrez Comment on above: Order Comment: Trans fuse now? N Result Comment: PERF ORMED BY: [facility] [place] [address] PATHOLOGIST DEV OPS ENGINEER TRICIA OSHEA M.D. Start: 02-16-2020 Colonoscopy w/biopsy single/multiple Trendy Mondays Colonoscopy Farooq SALAM Screening for malign ant neoplasm of breast Danyell Morales Other Immunizations Immunization Date Immunization Notes Care Provider Fa cili 12-09-2020 COVID-19 mRNA-1273 (Moderna) MD Cy Sears Work Phone: [facility] 11-15-2020 influenza virus vaccine, split virus (incl. purified surface antigen) Danyell Morales Other [facility] Other 11-11-2020 influenza virus [facility], unspecified [facility] 04-26-2020 COVID-19 mRNA-1273 (Moderna) MD Cy Sears Work Phone: [facility] 03-23-2020 COVID-19 mRNA-1273 (Moderna) MD Cy Sears Work Phone: [facility] 11-20-2019 influenza virus vaccine, split virus (incl. purified surface antigen) Danyell Morales Other [facility] Other 10-24-2016 influenza virus vaccine, split virus (incl. purified surface antigen) Danyell Morales Other [facility] Other 10-24-2016 pneumococcal conjuga te vaccine, 13 valent Danyell Morales Other [facility] Other 08-31-2014 tetanus toxoid, reduced diphtheria toxoid, and acellular pertussis vaccine, adsorbed Danyell Morales Other [facility] Other 11-30-2013 pneumococcal polysaccharide vaccine, 23 valent Danyell Robin Other [facility] Other NEGATED: Highlighted row has not occurred!11-08-2021 influenza virus vaccine, unspecified formulation Capri ROA [facility] Payers Date Payer Category Payer Self-pay [id number] 2021 Private Health Insurance CLI [id number] 1961 Medicare [id number] 1961 Unknown [id number] 1948 Unknown [id number] 2.16.8 40.1.078139.3.579.2.727 1948 Unknown [id number] 2.16.8 40.1.104874.3.579.2.727 1948 Unknown [id number] 2.16.84 0.1.002965.3.579.2.727 1948 Unknown [id number] 2.16.84 0.1.499467.3.579.2.593 1948 Unknown [id number] 2.16.84 0.1.963751.3.579.2.593 1948 Unknown [id number] 2.16.84 0.1.291108.3.579.2.593 1948 Unknown [id number] 2.16.84 0.1.183871.3.579.2.593 1948 Unknown [id number] 2.16.84 0.1.405924.3.579.2.593 1948 Unknown [id number] 2.16.84 0.1.961698.3.579.2.593 1948 Unknown [id number] 2.16.84 0.1.242803.3.579.2.593 1948 Unknown [id number] 2.16.84 0.1.843770.3.579.2.593 1948 Unknown [id number] 2.16.84 0.1.586780.3.579.2.593 1948 Unknown [id number] 2.16.84 0.1.426575.3.579.2.593 1948 Unknown [id number] 2.16.84 0.1.907313.3.579.2.593 1948 Unknown [id number] 2.16.84 0.1.199193.3.579.2.593 1948 Unknown [id number] 2.16.84 0.1.296890.3.579.2.593 1948 Unknown [id number] 2.16.84 0.1.753975.3.579.2.593 1948 Unknown [id number] 2.16.84 0.1.020145.3.579.2.593 1948 Unknown [id number] 2.16.84 0.1.408378.3.579.2.593 1948 Unknown [id number] 2.16.84 0.1.750028.3.579.2.593 1948 Unknown [id number] 2.16.84 0.1.033270.3.579.2.1259 1948 Unknown [id number] 2.16.84 0.1.398304.3.579.2.1259 1948 Unknown [id number] 2.16.84 0.1.848417.3.579.2.1259 Medicare Self Pay [id number] Unknown [id number] 2.16.8 40.1.174494.3.579.2.531 Unknown [id number] 2.16.8 40.1.006090.3.579.2.531 Unknown [id number] 2.16.8 40.1.275228.3.579.2.531 Social History Date Type Detail Facility Tobacco smoking stat [facility] Unknown if ever smoked [facility] Work Phone: Start: 1950 Sex Assigned At Female F [facility] Start: 05-10-2021 End: 11-08-2021 Tobacco smoking status Heavy tobacco smoker (finding) [facility] Sex Assigned At Female [facility] Start: 05-26-2021 Tobacco smoking stat [facility] Smoker (finding) [facility] Functional Status Date Assessment Result Facility 11-08-2021 Functional Status N/A [facility] Clinical Notes 01-24-2021 to [...] continue to monitor through routine blood work [facility] Other 08-10-2023 Evaluation note* Encounter Date Diagnosis Assessment Notes Treatment Notes Treatment Clinical Notes Sep, Right foot pain (ICD-10 - M79.671) [facility] Other 07-25-2023 Evaluation note* Encounter Date Diagnosis [...] - E03.9) Chronic problem due for labs. [facility] Other 01-19-2023 Evaluation note* Encounter Date Diagnosis [...] - E78.5) Due for labs in summer. [facility] Other 12-08-2022 NoteCONSULTATION PROCEDURE DATE: 01/18/2022 PREOPERATIVE [...] will be followed up in the office.[id number] NoteCONSULTATION CONSULTATION DATE: 01/18/2022 HISTORY OF PRESENT [...] in three months' time, unless otherwise indicated.[facility] [id number] Evaluation + Plan note Diagnostic Tests Pending * CBC w/ Auto Diff 11/08/21 * Comprehensive Metabolic Panel 11/08/21 [facility] 09-08-2022 NoteCONSULTATION PROCEDURE DATE: [...] will be followed up in the office.[facility] 10-19-2021 NoteCONSULTATION CONSULTATION DATE: 10/19/2021 This is [...] in three months' time unless otherwise indicated.[facility] [id number] NoteCONSULTATION CONSULTATION DATE: 09/06/2021 HISTORY OF PRESENT [...] 8/10. She has been following up with [facility] and had a benign fibroid [...] procedure, and patient agrees to move forward.[facility] [id number] NoteCONSULTATION PAIN MANAGEMENT CONSULTATION HISTORY: This is [...] of care and will call when needed. IF Signed and Approved by: ROBERTO MCNALLY . 04/27/2021 12:41:00[facility]12-14-2021 Hospital Discharge instructions Follow Up Care 01/24/2021 10:04:31 With:JANINA ALARCON, Capri, [facility] Address: [facility] [address] [place] [address] [place] [address]- When:6 months [facility] Evaluation + Plan note Future Appointments Appointment Date:11/08/2021 10:15:00 AM Scheduled Provider:Capri ROA MD Location:[facility] Appointment Type:[facility] Follow Up Future Scheduled Tests Laboratory* CBC w/ Indices 07/25/20 * Comprehensive Metabolic Panel 07/25/20 [facility] Evaluation noteNo assessment information available [facility] Work Phone: History general Narrative - Reported* Type Description Date Medical History GERD Medical History Hypothyroid Medical History Depression Surgical History Appendectomy Surgical History Tubal Ligation Surgical History Right carpal tunnel Surgical History Right finger Surgical History 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 Hospitalization History See past surgical hx [facility] Other Hospital course Narrative No data available for this section [facility] Hospital Discharge instructions No data available for this section [facility] Progress note No data available for this section [facility] Chief Complaint and Reason for Visit Chief Complaint Esophageal Mass Chief Complaint Esophageal Mass Right Substernal Thyroid Goiter Advance Directives No Advanced Directives Records Found Advance Directive Response Recorded Date/ Time Advance Directives No May 03 9:14am Summary Purpose Family History No Family History Records Found Relationship Condition Age at Onset Recorded Date/T michelle father Diabetes mellitus Unknown Cerebrovascular accident (CVA) Unknown Reason for Referral Reason *FU 09/27 R foot p ain. Had Xray Diagnosis 1 Right foot pain (M79 .671) Referral Organization [facility] Referring Provider First Name Danyell Referring Provider Last Name Robin Referring Provider Specialty Family [facility] Referred Organization [facility] Referred Provider Seymour Johnson Referred Address [address], [place],[address] Referred Provider Specialty Podiatry - S urgical Chiropody Referral Priority Routine General Notes DarrickTraci bennett 03:01:16 PM >received today, attachments made, notes [...] section and content) DATE CREATED AUTHOR 05/23/2021 [facility] dical Specialist DATE CREATED AUTHOR AUTHOR'S ORGANIZ ATION 11/14/2021 [facility] DATE CREATED AUTHOR AUTHOR'S ORGANIZ ATION 01/23/2022 [facility] DATE CREATED AUTHOR AUTHOR'S ORGANIZ ATION 03/17/2022 [facility] DATE CREATED AUTHOR AUTHOR'S ORGANIZ ATION 09/12/2023 [facility] dical Specialists EPIC REASON FOR VISIT (unrecogniz [...] BE BASED ON THE PRIMARY CLINICAL RECORDS. [employer] provides no warranty or guarantee of the accuracy or completeness of information in this document.
--- NOTE | 2023-09-17 08:53 | MR_ITS ---
[address] [address] Patient Name: ALEXANDRA GARDNER MRN: [id number] date: 1950 Sex: F Assigned Patient Location: MRI Current Patient Location: MRI Accession/Order Number: [id number] Exam Date: 09/17/2023 09:00 Report Date: 09/18/2023 11:19 At the request of: TOBIN RIGGS Procedure: MR lumbar spine wo con EXAMINATION: MR lumbar spine wo con HISTORY: Lumbar Radiculopathy ; chronic low back and right leg pain COMPARISON: XR lumbar spine 09/17/2023 TECHNIQUE: A variety of imaging planes and parameters were utilized for visualization of suspected pathology. FINDINGS: For the purposes of numbering, sagittal T2 image # extends from the vertebral body superiorly to the level inferiorly. PARASPINAL AREA: Numerous stones within noninflamed gallbladder. BONES: 3 mm retrolisthesis of L1 on 2 along with Modic type I edematous degenerative endplate changes at this level. 3 mm anterior listhesis of L4 on 5. There is 6 mm anterior listhesis of L5 on S1 secondary to bilateral pars interarticularis defects. CORD/CAUDA EQUINA: Normal caliber, contour, and signal intensity. DISC LEVELS: 12-L1: Early degenerative disc disease is present without focal protrusion or neural impingement. L1-L2: Mild central canal narrowing. Moderate to marked foramen narrowing bilaterally. Grade 1 retrolisthesis of L1 on 2, mild diffuse disc bulging with moderate disc height reduction, and edematous degenerative endplate changes, and mild bilateral facet arthropathy. L2-L3: Mild central canal narrowing. Moderate left, mild right foramen narrowing. L3-L4: Early degenerative disc disease is present without focal protrusion or neural impingement. L4-L5: Mild central canal and moderate bilateral foramen narrowing. Grade 1 anterolisthesis of L4 on 5 mild posterior pseudodisc bulging and mild disc at reduction. Moderate degenerative facet arthropathy bilaterally. L5-S1: Mild central canal and marked bilateral foramen narrowing. Grade 1, bordering on grade 2 anterior listhesis of L5 on S1 with prominent posterior central disc bulging and moderate disc height reduction. Marked degenerative facet arthropathy bilaterally. MR/MR lumbar spine wo con IMPRESSION: 1. Marked foramen narrowing at L5-S1 bilaterally likely contributing to patient's symptoms. 2. In addition there is moderate or slightly greater foramen narrowing at multiple levels secondary to overall moderate degenerative disc disease and facet arthropathy. Multilevel mild central canal narrowing. 3. Multilevel listhesis, greatest at L5-S1 where there is 6 mm (borderline Grade II) anterior listhesis. 4. Cholelithiasis. Electronically authenticated by: FUENTES BARRETO Date: 09/18/2023 11:19
--- NOTE | 2023-09-17 08:54 | XR_ITS ---
[place] [address] Patient Name: ALEXANDRA GARDNER MRN: [id number] date: 1950 Sex: F Assigned Patient Location: MRI Current Patient Location: Accession/Order Number: [id number] Exam Date: 09/17/2023 09:04 Report Date: 09/18/2023 06:21 At the request of: TOBIN RIGGS Procedure: XR lumbar spine 6V w bending EXAMINATION: XR lumbar spine 6V w bending HISTORY: Lumbar Radiculopathy ; chronic back pain, right foot pain COMPARISON: XR L-spine 08/22/2020 FINDINGS: BONES: Mild grade 1 retrolisthesis of L1 on 2. 7 mm anterior listhesis of L5 on S1. No change in alignment at either level between flexion, extension, neutral positions. No fracture. Moderate degenerative facet arthropathy L3-L4 through L5-S1. DISC SPACES: Marked narrowing L1-L2 and L5-S1. Moderate narrowing L4-L5. PARASPINOUS: r OTHER: Negative. XR/XR lumbar spine 6V w bending IMPRESSION: 1. Multilevel degenerative changes with most significant progression involving L5-S1. 2. Grade 1 anterior listhesis at L1-L2 and grade 2 anterior listhesis at L5-S1; stable between flexion, extension, neutral. Electronically authenticated by: FUENTES BARRETO Date: 09/18/2023 06:21
== END 2023-09-17 08:47 | disposition home or self-care (01) ==
LOC: MRI 08:46
PROVIDERS: PCP Family Medicine; Visit Provider Anesthesiology Pain Medicine
DX: M51.16 Intervertebral disc disorders with radiculopathy, lumbar region (principal); M47.26 Other spondylosis with radiculopathy, lumbar region; K80.20 Calculus of gallbladder without cholecystitis without obstruction
CPT/HCPCS: 72114; 72148

== ENCOUNTER 2023-10-23 10:46 | Outpatient (OUT) | payer MEDICARE, OTHER, SELFPAY ==
--- OUTSIDE RECORDS SUMMARY | 2023-10-23 11:09 | XMS_ITS | CCD ---
Author Organization [facility] Care Team Providers Care Dealer Sales Manager Name Role Phone MD Cy Sears Attending Provider MD Danyell Morales Primary Care Provider DANYELL MORALES Primary Care Physician DO Luis Gutierrez Attending Provider [phone] Capri ROA Attending Unavailable SALAM, Capri Attending Unavailable SALAM, Capri Attending Unavailable MORAELS, DR DANYELL Solis Attending Unavailable MORALES, DR [...] MORALES, DR DANYELL Solis Primary Care Unavailable MORAELS, DR DANYELL Solis Admitting Unavailable MORALES, DR DANYELL Solis Consulting Unavailable MORALES, DR DANYELL Solis Attending Unavailable MORALES, DR DANYELL Solis Primary Care Unavailable ESEQUIEL, DR RADHA Snow Admitting Unavailable IRAHETA, DR [...] Unavailable MORALES, DR DANYELL Solis Attending Unavailable PENROSE, DR LONNY Wiggins Consulting Unavailable MORALES, DR DANYELL Solis Consulting Unavailable MORALES, DR DANYELL Solis Primary Care Unavailable ESEQUIEL, DR RADHA Snow Attending Unavailable ESEQUIEL, DR RADHA Snow Consulting Unavailable ESEQUIEL, DR RADHA Snow Admitting Unavailable SABINA STONE Consulting Unavailable MORALES, DR DANEYLL Solis Primary Care Unavailable ESEQUIEL, DR RADHA [...] Care Unavailable SALAM, FAROOQ Attending Unavailable SALAM, CAPRI Consulting Unavailable MORALES, DR DANYELL Solis Primary Care Unavailable MISC, DR HIDALGO Admitting Unavailable MISC, DR HIDALGO Attending Unavailable MISC, DR HIDALGO Consulting Unavailable Luis Gutierrez Admitting Unavailable Danyell Morales Primary Care Unavailable Luis Gutierrez Attending Unavailable DeRiso, Cy Attending Unavailable DeRCy [place] Admitting Unavailable Danyell Morales Primary Care Unavailable Robin, Danyell Solis Primary Care Unavailable Luis Gutierrez Attending Unavailable Luis Gutierrez Admitting Unavailable Robin Danyell Unavailable JASIEL BRYANT Attending Unavailable JASIEL BRYANT Referring Unavailable DANIELLE LOPEZ Attending Unavailable JASIEL BRYANT Attending Unavailable Allergies Allergy Classification Reported Allergen(s) Allergy Type Date of Onset Reaction(s) Facility (4 sources) varenicline Drug Allergy Unknown Modebo Other Medications Current Medications Medication Drug Class(es) [...] PO Daily May 26, 2021 2:53pm NuLYTELY [place] oral powder for reconstitution (1 source) Start: 01-28-2020 take 1 dose by mouth once NuLYTELY [place] oral powder for reconstitution See Instructions, 1 [...] Once a day Active polyethylene glycol 3350 292000 mg / potassium chloride 1480 mg / sodium bicarbonate 5720 mg / sodium chloride 74134 mg powder for oral solution (1 source) Osmotic Laxative Start: 01-28-2020 take 1 dose by mouth once NuLYTELY [place] oral powder for reconstitution See Instructions, 1 [...] # 180 tab(s), Refills(s) 11, Pharmacy: [facility]/pharmacy #[id number], 150, cm, 05/10/21 11:13:00 EDT, [...] 11-21-2021 BASO # 0.1 103/ul Normal 0.0-0.1 [facility] Comment on above: Performed By: #### C BC #### [facility] [address] [address] [address] Scooby Irvin Basophils/100 WBC (Bld) 0.5 % Normal 0.2-2.0 [facility] Comment on above: Performed By: #### C BC #### [facility] [address] [address] [address] Scooby Irvin EO # 0.0 103/ul Normal 0.0-0.7 [facility] Comment on above: Performed By: #### C BC #### [facility] [address] [place] [address] Dr. Scooby Irvin Eosinophils/100 WBC (Bld) 0.1 % Critically low 0.9-7.0 [facility] Comment on above: Performed By: #### C BC #### [facility] [address] [place] [address] Dr. Scooby Irvin Erythrocyte distribution width (RBC) [Ratio] 15.1 % Critically high 11.0-15.0 [facility] Comment on above: Performed By: #### C BC #### [facility] [address] [place] [address] Dr. Scooby Irvin Hematocrit (Bld) [Volume fraction] 39.4 % Normal 36.0-48.0 [facility] Comment on above: Performed By: #### C BC #### [facility] [address] [place] [address] Dr. Scooby Irvin Hemoglobin (Bld) [Mass/Vol] 12.6 g/dL Normal 12.0-16.0 [facility] Comment on above: Performed By: #### C BC #### [facility] [address] [place] [address] Dr. Scooby Irvin IG # 0.05 10e3/ul Critically high 0.00-0.03 [facility] Comment on above: Performed By: #### C BC #### [facility] [address] [place] [address] Dr. Scooby Irvin IG % 0.5 % Normal 0.0-0.5 [facility] Comment on above: Performed By: #### C BC #### [facility] [address] [place] [address] Dr. Scooby Irvin LYMPH # 1.3 103/ul Normal 1.2-3.8 [facility] Comment on above: Performed By: #### C BC #### [facility] [address] [place] [address] Dr. Scooby Irvin Lymphocytes/100 WBC (Bld) 13.2 % Critically low 20.5-60.0 [facility] Comment on above: Performed By: #### C BC #### [facility] [address] [place] [address] Dr. Scooby Irvin MANUAL DIFF REQ NO Normal [facility] Comment on above: Performed By: #### C BC #### [facility] [address] [place] [address] Dr. Scooby Irvin MCH (RBC) [Entitic mass] 30.0 pg Normal 26.7-34.0 [facility] Comment on above: Performed By: #### C BC #### [facility] [address] [place] [address] Dr. Scooby Irvin MCHC (RBC) [Mass/Vol] 32.0 g/dL Normal 29.9-35.2 [facility] Comment on above: Performed By: #### C BC #### [facility] [address] [place] [address] Dr. Scooby Irvin MCV (RBC) [Entitic vol] 93.8 fL Normal 81.0-99.0 [facility] Comment on above: Performed By: #### C BC #### [facility] [address] [place] [address] Dr. Scooby Irvin MONO # 0.7 103/ul Normal 0.3-0.8 [facility] Comment on above: Performed By: #### C BC #### [facility] [address] [place] [address] Dr. Scooby Irvin Monocytes/100 WBC (Bld) 7.2 % Normal 1.7-12.0 [facility] Comment on above: Performed By: #### C BC #### [facility] [address] [place] [address] Dr. Scooby Irvin NEUT # 7.5 103/ul Critically high 1.4-6.5 [facility] Comment on above: Performed By: #### C BC #### [facility] [address] [place] [address] Dr. Scooby Irvin Neutrophils/100 WBC (Bld) 78.5 % Critically high 43.0-75.0 [facility] Comment on above: Performed By: #### C BC #### [facility] [address] [address] [address] Scooby Irvin Platelet mean volume (Bld) [Entitic vol] 9.9 fL Normal 9.5-13.5 [facility] Comment on above: Performed By: #### C BC #### [facility] [address] [place] [address] Dr. Scooby Irvin PLT 230 103/ul Normal 150-450 [facility] Comment on above: Performed By: #### C BC #### [facility] [address] [place] [address] Dr. Scooby Irvin RBC 4.20 106/ul Normal 4.20-5.40 [facility] Comment on above: Performed By: #### C BC #### [facility] [address] [place] [address] Dr. Scooby Irvin WBC 9.5 103/ul Normal 4.0-11.0 [facility] Comment on above: Performed By: #### C BC #### [facility] [address] [place] [address] Dr. Scooby Irvin PROF 14(COMP METB)on 022 Albumin [Mass/Vol] 3.9 g/dL Normal 3.4-5.0 [facility] Comment on above: Performed By: #### C BC #### [facility] [address] [place] [address] Dr. Scooby Irvin Albumin/Globulin [Mass ratio] 1.0 {ratio} Normal [facility] Comment on above: Performed By: #### C BC #### [facility] [address] [place] [address] Dr. Scooby Irvin ALP [Catalytic activity/Vol] 87 U/L Normal 46-116 [facility] Comment on above: Performed By: #### C BC #### [facility] [address] [place] [address] Dr. Scooby Irvin ALT [Catalytic activity/Vol] 29 U/L Normal 14-59 [facility] Comment on above: Performed By: #### C BC #### [facility] [address] [address] [address] Scooby Irvin Anion gap [Moles/Vol] 14.1 mmol/L Normal [facility] Comment on above: Performed By: #### C BC #### [facility] [address] [address] [address] Scooby Irvin AST [Catalytic activity/Vol] 38 U/L Critically high 15-37 [facility] Comment on above: Performed By: #### C BC #### [facility] [address] [place] [address] Dr. Scooby Irvin Bilirubin [Mass/Vol] 0.5 mg/dL Normal 0.2-1.0 [facility] Comment on above: Performed By: #### C BC #### [facility] [address] [place] [address] Dr. Scooby Irvin Calcium [Mass/Vol] 9.2 mg/dL Normal 8.5-10.1 [facility] Comment on above: Performed By: #### C BC #### [facility] [address] [place] [address] Dr. Scooby Irvin Chloride [Moles/Vol] 102 mmol/L Normal 98-107 [facility] Comment on above: Performed By: #### C BC #### [facility] [address] [place] [address] Dr. Scooby Irvin CO2 [Moles/Vol] 25.7 mmol/L Normal 21.0-32.0 [facility] Comment on above: Performed By: #### C BC #### [facility] [address] [place] [address] Dr. Scooby Irvin Creatinine [Mass/Vol] 0.76 mg/dL Normal 0.55-1.02 [facility] Comment on above: Performed By: #### C BC #### [facility] [address] [place] [address] Dr. Scooby Irvin EGFR-AF [place]THER[place] >60 Normal >=60 [facility] Comment on above: Performed By: #### C BC #### [facility] [address] [place] [address] Dr. Scooby Irvin EGFR-NON AF [place] >60 Normal >=60 [facility] Comment on above: Performed By: #### C BC #### [facility] [address] [place] [address] Dr. Scooby Irvin Globulin (S) [Mass/Vol] 3.8 g/dL Normal [facility] Comment on above: Performed By: #### C BC #### [facility] [address] [place] [address] Dr. Scooby Irvin Glucose [Mass/Vol] 104 mg/dL Normal 74-106 [facility] Comment on above: Performed By: #### C BC #### [facility] [address] [place] [address] Dr. Scooby Irvin Potassium [Moles/Vol] 4.8 mmol/L Normal 3.5-5.1 [facility] Comment on above: Performed By: #### C BC #### [facility] [address] [place] [address] Dr. Scooby Irvin Protein [Mass/Vol] 7.7 g/dL Normal 6.4-8.2 [facility] Comment on above: Performed By: #### C BC #### [facility] [address] [place] [address] Dr. Scooby Irvin Sodium [Moles/Vol] 137 mmol/L Normal 136-145 [facility] Comment on above: Performed By: #### C BC #### [facility] [address] [place] [address] Dr. Scooby Irvin Urea nitrogen [Mass/Vol] 9.0 mg/dL Normal 7.0-18.0 [facility] Comment on above: Performed By: #### C BC #### [facility] [address] [place] [address] Dr. Scooby Irvin Urea nitrogen/Creatinine [Mass ratio] 11.8 mg/mg Normal [facility] Comment on above: Performed By: #### C BC #### [facility] [address] [place] [address] Dr. Scooby Irvin Gastroenterology Office/Clin ic Noteon [...] done for her thyroid and cholesterol at [place]. Alexandra denies having any other GI concerns [...] Jeronimo eXperience to record this visit. JASS client resource specialist and provider reviewed before signing. JASS: [...] 1 tab(s), Oral, TID levothyroxine, Daily NuLYTELY [place] oral powder for reconstitution, See Instructions omeprazole, [...] vaccine, inactivated 11/2020 Recorded Normal [facility] Comment on above: Result Comment: Elec [...] omeprazole polyethylene glycol 3350 with electrolytes (NuLYTELY [place] oral powder for reconstitution) simvastatin sulfasalazine (sulfasalazine [...] Unchanged polyethylene glycol 3350 with electrolytes (NuLYTELY [place] oral powder for reconstitution) See instructions PER [...] treatment for. Chronic pancolonic ulcerative colitis Normal [facility] LIPID PROFILEon 09-27-2021 CHOL-HDL RATIO NORM SEE BELOW Normal [facility] Comment on above: Result Comment: 3.3 - 4.4 LOW RISK 4.4 - 7.1 AVERAGE RISK 7.1 - 11.0 MODERATE RISK >11.0 HIGH RISK Performed By: #### C MP, LIPID #### [facility] [address] [address] [address] Scooby Irvin Cholesterol [Mass/Vol] 235 mg/dL Critically high <=200 [facility] Comment on above: Performed By: #### C MP, LIPID #### [facility] [address] [address] [address] Scooby Irvin Cholesterol in HDL [Mass/Vol] 65 mg/dL Critically high 40-60 [facility] Comment on above: Performed By: #### C MP, LIPID #### [facility] [address] [address] [address] Scooby Irvin Cholesterol in LDL [Mass/Vol] 156.8 mg/dL Normal [facility] Comment on above: Performed By: #### C MP, LIPID #### [facility] [address] [address] [address] Scooby Irvin Cholesterol.total/Rachel sterol in HDL [Mass ratio] 3.6 {ratio} Normal [facility] Comment on above: Performed By: #### C MP, LIPID #### [facility] [address] [address] [address] Scooby Irvin HDL NORMAL > or = 60 mg/dl - LOW CARDIOVASCULAR RISK <40 mg/dl - HIGH CARDIOVASCULAR RISK Normal [facility] Comment on above: Performed By: #### C MP, LIPID #### [facility] [address] [address] [address] Scooby Irvin LDL CALC NORMAL SEE BELOW Normal [facility] Comment on above: Result Comment: <100 mg/dl OPTIMAL 100 - 129 mg/dl NEAR OR ABOVE OPTIMAL 130 - 159 mg/dl BORDERLINE HIGH 160 - 189 mg/dl HIGH >190 mg/dl VERY HIGH Performed By: #### C MP, LIPID #### [facility] [address] [place] [address] Dr. Scooby Irvin Triglyceride [Mass/Vol] 66 mg/dL Normal <=150 [facility] Comment on above: Performed By: #### C MP, LIPID #### [facility] [address] [place] [address] Dr. Scooby Irvin VLDL CALC 13.2 mg/dL Normal [facility] Comment on above: Performed By: #### C MP, LIPID #### [facility] [address] [place] [address] Dr. Scooby Irvin PROF 14(COMP METB)on 022 Albumin [Mass/Vol] 3.9 g/dL Normal 3.4-5.0 [facility] Comment on above: Performed By: #### C MP, LIPID #### [facility] [address] [place] [address] Dr. Scooby Irvin Albumin/Globulin [Mass ratio] 1.1 {ratio} Normal [facility] Comment on above: Performed By: #### C MP, LIPID #### [facility] [address] [place] [address] Dr. Scooby Irvin ALP [Catalytic activity/Vol] 87 U/L Normal 46-116 [facility] Comment on above: Performed By: #### C MP, LIPID #### [facility] [address] [address] [address] Scooby Irvin ALT [Catalytic activity/Vol] 27 U/L Normal 14-59 [facility] Comment on above: Performed By: #### C MP, LIPID #### [facility] [address] [place] [address] Dr. Scooby Irvin Anion gap [Moles/Vol] 16.9 mmol/L Normal [facility] Comment on above: Performed By: #### C MP, LIPID #### [facility] [address] [address] [address] Scooby Irvin AST [Catalytic activity/Vol] 21 U/L Normal 15-37 [facility] Comment on above: Performed By: #### C MP, LIPID #### [facility] [address] [place] [address] Dr. Scooby Irvin Bilirubin [Mass/Vol] 0.4 mg/dL Normal 0.2-1.0 [facility] Comment on above: Performed By: #### C MP, LIPID #### [facility] [address] [place] [address] Dr. Scooby Irvin Calcium [Mass/Vol] 8.7 mg/dL Normal 8.5-10.1 [facility] Comment on above: Performed By: #### C MP, LIPID #### [facility] [address] [place] [address] Dr. Scooby Irvin Chloride [Moles/Vol] 102 mmol/L Normal 98-107 [facility] Comment on above: Performed By: #### C MP, LIPID #### [facility] [address] [place] [address] Dr. Scooby Irvin CO2 [Moles/Vol] 22.0 mmol/L Normal 21.0-32.0 [facility] Comment on above: Performed By: #### C MP, LIPID #### [facility] [address] [place] [address] Dr. Scooby Irvin Creatinine [Mass/Vol] 0.73 mg/dL Normal 0.55-1.02 [facility] Comment on above: Performed By: #### C MP, LIPID #### [facility] [address] [address] [address] Scooby Irvin EGFR-AF [place] >60 Normal >=60 [facility] Comment on above: Performed By: #### C MP, LIPID #### [facility] [address] [address] [address] Scooby Irvin EGFR-NON AF [place] >60 Normal >=60 [facility] Comment on above: Performed By: #### C MP, LIPID #### [facility] [address] [address] [address] Scooby Irvin Globulin (S) [Mass/Vol] 3.7 g/dL Normal [facility] Comment on above: Performed By: #### C MP, LIPID #### [facility] [address] [place] [address] Dr. Scooby Irvin Glucose [Mass/Vol] 105 mg/dL Normal 74-106 [facility] Comment on above: Performed By: #### C MP, LIPID #### [facility] [address] [place] [address] Dr. Scooby Irvin Potassium [Moles/Vol] 3.9 mmol/L Normal 3.5-5.1 [facility] Comment on above: Performed By: #### C MP, LIPID #### [facility] [address] [place] [address] Dr. Scooby Irvin Protein [Mass/Vol] 7.6 g/dL Normal 6.4-8.2 [facility] Comment on above: Performed By: #### C MP, LIPID #### [facility] [address] [place] [address] Dr. Scooby Irvin Sodium [Moles/Vol] 137 mmol/L Normal 136-145 [facility] Comment on above: Performed By: #### C MP, LIPID #### [facility] [address] [place] [address] Dr. Scooby Irvin Urea nitrogen [Mass/Vol] 11.0 mg/dL Normal 7.0-18.0 [facility] Comment on above: Performed By: #### C MP, LIPID #### [facility] [address] [place] [address] Dr. Scooby Irvin Urea nitrogen/Creatinine [Mass ratio] 15.1 mg/mg Normal [facility] Comment on above: Performed By: #### C MP, LIPID #### [facility] [address] [place] [address] Dr. Scooby Irvin TSHon 09-27-2021 TSH 2.198 uIU/mL Normal 0.358-3.740 [facility] Comment on above: Performed By: #### T SH #### [facility] [address] [address] [address] Scooby Irvin Covid-19 PCR ([facility])on 09-11 SARS-CoV-2 (COVID-19) RNA ADELITA+probe Ql [...] for this test is supported by the [employer] Vice President of Health and Human Service's (HHS's) declaration [...] [facility] [address] [address] [address] Scooby Irvin TSHon 06-22-2021 TSH 2.326 uIU/mL Normal 0.358-3.740 [facility] Comment on above: Performed By: #### C BC #### [facility] [address] [address] [address] Scooby Irvin TSH RANGE SEE BELOW Normal [facility] Comment on above: Result Comment: <0.3 4 UIU/ml HYPERTHYROID 0.34-5.60 UIU/ml EUTHYROID >5.60 UIU/ml HYPOTHYROID Performed By: #### C BC #### [facility] [address] [place], [place] [address] Dr. Scooby Irvin ABO/Rh Retypeon 05-31-2021 ABO/RH Recheck Result Positive Normal [facility] Comment on above: Result Comment: PERF ORMED BY: [facility] [address] [place] [address] PATHOLOGIST METAL HANGER TRICIA Yin 05-31-2021 L Specimen: [id number] Received: 05/31/21 Status: LIDIA Pineda Num: [id number] Spec Type: Surgical Subm Dr: Luis Gutierrez DO Tissues: A Parathyroid Gland (R/O PARATHYROID) B THYROID - Lobe (R SUBSTERNAL THYROID) Procedures: HE Stain/8, Gross/Micro L5, Gross/Micro L4 Patient Age/Sex Location Account Attending Physician Alexandra Cervantes 71/F [place] [id number] Luis Gutierrez DO SPEC NUM: [id number] RECD: 05/31/21 STATUS: LIDIA PINEDA NUM: [id number] KATHY: 05/31/21- SUBM DR: Luis Gutierrez DO ENTERED: 05/31/21-[address] [facility] DR: LANCE TYPE: Surgical DEPT: [...] Specimen: Received: 05/31/21 Status: LIDIA Pineda Num: [id number] Spec Type: Surgical Subm Dr: Luis Gutierrez DO Tissues: A Parathyroid Gland (R/O PARATHYROID) B THYROID - Lobe (R SUBSTERNAL THYROID) Procedures: HE Stain/8, Gross/Micro L5, Gross/Micro L4 Patient: Alexandra Cervantes [id number] (Continued) Specimen: Received: 05/31/21 (Continued) Gross Description (Continued) Signed (signatur e on file) Tricia Oshea MD 06/01/211912 Specimen: Received: 05/31/21 Status: LIDIA Pineda Num: [id number] Spec Type: Surgical Subm Dr: Luis Gutierrez DO Tissues: A Parathyroid Gland (R/O PARATHYROID) B THYROID - Lobe (R SUBSTERNAL THYROID) Procedures: HE Stain/8, Gross/Micro L5, Gross/Micro L4 Patient: Alexandra Cervantes [id number] (Continued) Specimen: Received: 05/31/21 (Continued) Gross Description [...] microscopic findings support the above pathologic diagnosis. [id number], [id number], [id number] Specimen: [id number] Received: (more content not included)... Normal [facility] LeukoReduced RBCon 2 LeukoReduced RBC READY Normal [facility] Type and Screenon 05-31-2021 ABO and Rh group Nom (Bld) Blood group O Rh(D) positive [facility] Comment on above: Order Comment: Trans fuse now? N Result Comment: PERF ORMED BY: [facility] [address] [place] [address] PATHOLOGIST METAL HANGER TRICIA OSHEA M.D. Basic Metabolic Panelon 05-12 Calcium [Mass/Vol] 9.5 mg/dL Normal 8.2-10.2 [facility] [facility] Comment on above: Result Comment: PERF ORMED BY: [facility] [address] [place] [address] PATHOLOGIST METAL HANGER TRICIA OSHEA M.D. Performed By: #### C KELSEY, BMP #### [facility] [address] [place] [address] [facility] Chloride [Moles/Vol] 105 mmol/L Normal 95-114 [facility] Comment on above: Performed By: #### C BC, BMP #### [facility] [address] CO2 [Moles/Vol] 23.0 mmol/L Normal 22.0-30.0 [facility] Comment on above: Performed By: #### C BC, BMP #### [facility] [address] Creatinine [Mass/Vol] 0.66 mg/dL Normal 0.44-1.03 [facility] Comment on above: Performed By: #### C BC, BMP #### [facility] [address] Estimated GFR ( Traci > 60 Normal [facility] Comment on above: Result Comment: GFR estimated reference range: According to KDOQI guidelines, <60 ml/min/1.73m2 is sufficient to diagnose a patient with chronic kidney disease. Performed By: #### C BC, BMP #### [facility] [address] Estimated GFR (Non- Am > 60 Normal [facility] Comment on above: Performed By: #### C BC, BMP #### [facility] [address] Glucose [Mass/Vol] 89 mg/dL Normal 70-100 [facility] Comment on above: Result Comment: [place]bert Glucose Reference Range is dependent on time and content of last meal. Glucose of more than 200 mg/dL in a nonstressed, ambulatory subject supports the diagnosis of Diabetes Mellitus. ADA recommended reference range Performed By: #### C BC, BMP #### [facility] [address] [place] [address] [place] Potassium [Moles/Vol] 4.0 mmol/L Normal 3.5-5.1 [facility] Comment on above: Performed By: #### C BC, BMP #### [facility] [address] Sodium [Moles/Vol] 137 mmol/L Normal 136-146 [facility] Comment on above: Performed By: #### C BC, BMP #### [facility] [address] Urea nitrogen [Mass/Vol] 10 mg/dL Normal 9-23 [facility] Comment on above: Performed By: #### C BC, BMP #### [facility] [address] Basophils Auto (Bld) [#/Vol] Ordered By: Luis Gutierrez on 05-26-2021 Basophils (Bld) [#/Vol] 0.1 10*3/uL 0.0-0.2 [facility] Basophils/100 WBC Auto (Bld) Ordered By: Luis Gutierrez on 05-26-2021 Basophils/100 WBC (Bld) 0.9 % [facility] Blood hemoglobin measurement (mass/volume)Ordered By: Luis Gutierrez on 05-26-2021 Hemoglobin (Bld) [Mass/Vol] 12.4 g/dL 11.8-15.4 [facility] Blood leukocytes automated c ount (number/volume)Ordered By: Luis Gutierrez on 05-26-2021 WBC (Bld) [#/Vol] 8.8 10*3/uL 4.5-11.0 [facility] COVID-19 FRMCon 05-26-2021 SARS-CoV-2 (COVID-19) RNA ADELITA+probe Ql (Unsp spec) Negative Normal Negative [facility] Comment on above: Order Comment: Healt hcare Worker?: N Result Comment: Testing for SARS-CoV-2 by RT-PCR This test was developed and its performance characteristics determined by [employer] system, [employer] (Kromatid) and validated at the [facility]. This test has not been FDA [...] is terminated or revoked sooner. PERFORMED BY: [place] [address] PATHOLOGIST METAL HANGER TRICIA OSHEA M.D. Performed By: #### C OVID 19 [facility] #### [facility] [address] COVID-19 Positive/NegativeOr dered By: Luis Gutierrez on 05-26-2021 SARS-CoV-2 (COVID-19) N gene ADELITA+probe Ql (Resp) Negative Negative [facility] Comment on above: Testing for SARS-CoV -2 by RT-PCRThis test was developed and its performance characteristics determined by [employer] system, [employer] (Krom[employer]id) and validated at the [facility]. This test has not been FDA [...] 05-26-2021 Calcium [Mass/Vol] 9.4 mg/dL Normal 8.2-10.2 [facility] Comment on above: Performed By: #### C A, TSH3, PTH #### [facility] [address] [place] [address] Complete Blood Count Auto Di ffon 05-26-2021 Basophils (Bld) [#/Vol] 0.1 10*3/uL Normal 0.0-0.2 [facility] Comment on above: Result Comment: PERF ORMED BY: [place] [address] PATHOLOGIST METAL HANGER TRICIA OSHEA M.D. Performed By: #### C BC, BMP #### [address] Basophils/100 WBC (Bld) 0.9 % Normal . [facility] Comment on above: Performed By: #### C BC, BMP #### [address] Eosinophils (Bld) [#/Vol] 0.0 10*3/uL Normal 0.0-0.45 [facility] Comment on above: Performed By: #### C BC, BMP #### [address] Eosinophils/100 WBC (Bld) 0.2 % Normal . [facility] Comment on above: Performed By: #### C BC, BMP #### [address] Erythrocyte distribution width (RBC) [Ratio] 16.1 % High 11.9-15.3 [facility] Comment on above: Performed By: #### C BC, BMP #### [address] Hematocrit (Bld) [Volume fraction] 37.5 % Normal 34.0-46.4 [facility] Comment on above: Performed By: #### C BC, BMP #### [address] Hemoglobin (Bld) [Mass/Vol] 12.4 g/dL Normal 11.8-15.4 [facility] Comment on above: Performed By: #### C BC, BMP #### [address] Lymphocytes (Bld) [#/Vol] 1.4 10*3/uL Normal 1.00-4.8 [facility] Comment on above: Performed By: #### C BC, BMP #### [address] Lymphocytes/100 WBC (Bld) 15.8 % Normal . [facility] Comment on above: Performed By: #### C BC, BMP #### [address] MCH (RBC) [Entitic mass] 29.2 pg Normal 24.7-34.3 [facility] Comment on above: Performed By: #### C BC, BMP #### [address] MCV (RBC) [Entitic vol] 88.3 fL Normal 80-100 [facility] Comment on above: Performed By: #### C BC, BMP #### [address] Mean Corpuscular HGB Conc 33.1 g/dL Normal 32.0-35.0 [facility] Comment on above: Performed By: #### C BC, BMP #### [address] Monocytes (Bld) [#/Vol] 0.7 10*3/uL Normal 0.0-0.8 [facility] Comment on above: Performed By: #### C BC, BMP #### [address] Monocytes/100 WBC (Bld) 7.7 % Normal . [facility] Comment on above: Performed By: #### C BC, BMP #### [address] Neutrophils (Bld) [#/Vol] 6.7 10*3/uL Normal 1.8-7.7 [facility] Comment on above: Performed By: #### C BC, BMP #### [address] Neutrophils/100 WBC (Bld) 75.4 % Normal . [facility] Comment on above: Performed By: #### C BC, BMP #### [place] [address] [place] Nucleated RBC/100 WBC (Bld) [Ratio] 0.1 % Normal 0-0.5 [facility] Comment on above: Performed By: #### C KELSEY, BMP #### [facility] [address] [place] [address] [place] Platelet mean volume (Bld) [Entitic vol] 8.6 fL Normal 6.3-10.7 [facility] Comment on above: Performed By: #### C KELSEY, BMP #### [facility] [address] [place] [address] [place] Platelets (Bld) [#/Vol] 241 10*3/uL Normal 150-450 [facility] Comment on above: Performed By: #### C KELSEY, BMP #### [facility] [address] RBC (Bld) [#/Vol] 4.24 10*6/uL Normal 3.60-5.00 [facility] Comment on above: Performed By: #### C KELSEY, BMP #### [facility] [address] WBC (Bld) [#/Vol] 8.8 10*3/uL Normal 4.5-11.0 [facility] Comment on above: Performed By: #### C KELSEY, BMP #### [place] [address] [place] Creatinine and Glomerular fi ltration rate.predicted panel (S/P/Bld)Ordered By: Luis Gutierrez on 05-26-2021 Creatinine [Mass/Vol] 0.66 mg/dL 0.44-1.03 [facility] ECG 12 lead ECGon 05-26-2021 [address] [facility] [place] [address] [place] [address] Electrocardiograph Report Signed Patient: Alexandra Cervantes MR#: [id number] 2 : 1950 Acct:[id number] Age/Sex: 71 / F ADM Date: 05/26/21 Loc: Room: [facility] Attending Dr: Luis Gutierrez DO Ordering Provider: [...] By Ashley Haines DO 05/27 0848 Normal [facility] Eosinophils Auto (Bld) [#/Vo l]Ordered By: Luis Gutierrez on 05-26-2021 Eosinophils (Bld) [#/Vol] 0.0 10*3/uL 0.0-0.45 [facility] Eosinophils/100 WBC Auto (Bl d)Ordered By: Luis Gutierrez on 05-26-2021 Eosinophils/100 WBC (Bld) 0.2 % [facility] Erythrocyte distribution wid th Auto (RBC) [Ratio]Ordered By: Luis Gutierrez on 05-26-2021 Erythrocyte distribution width (RBC) [Ratio] 16.1 % 11.9-15.3 [facility] Estimated glomerular filtrat ion rate (GFR) non- AmericanOrdered By: Luis Gutierrez on 05-26-2021 GFR/1.73 sq M.predicted among non-blacks MDRD (S/P/Bld) [Vol rate/Area] > 60 mL/Min [facility] Hematocrit Auto (Bld) [Volum e fraction]Ordered By: Luis Gutierrez on 05-26-2021 Hematocrit (Bld) [Volume fraction] 37.5 % 34.0-46.4 [facility] Laboratory - Hematology and Cell countsOrdered By: Luis Gutierrez on 05-26-2021 Nucleated RBC/100 WBC (Bld) [Ratio] 0.1 % 0-0.5 [facility] Lymphocytes Auto (Bld) [#/Vo l]Ordered By: Luis Gutierrez on 05-26-2021 Lymphocytes (Bld) [#/Vol] 1.4 10*3/uL 1.00-4.8 [facility] Lymphocytes/100 WBC Auto (Bl d)Ordered By: Luis Gutierrez on 05-26-2021 Lymphocytes/100 WBC (Bld) 15.8 % [facility] MCH Auto (RBC) [Entitic mass ]Ordered By: Luis Gutierrez on 05-26-2021 MCH (RBC) [Entitic mass] 29.2 pg 24.7-34.3 [facility] MCHC Auto (RBC) [Mass/Vol]Or dered By: Luis Gutierrez on 05-26-2021 MCHC (RBC) [Mass/Vol] 33.1 g/dL 32.0-35.0 [facility] MCV Auto (RBC) [Entitic vol] Ordered By: Luis Gutierrez on 05-26-2021 MCV (RBC) [Entitic vol] 88.3 fL 80-100 [facility] Monocytes Auto (Bld) [#/Vol] Ordered By: Luis Gutierrez on 05-26-2021 Monocytes (Bld) [#/Vol] 0.7 10*3/uL 0.0-0.8 [facility] Monocytes/100 WBC Auto (Bld) Ordered By: Luis Gutierrez on 05-26-2021 Monocytes/100 WBC (Bld) 7.7 % [facility] Neutrophils Auto (Bld) [#/Vo l]Ordered By: Luis Gutierrez on 05-26-2021 Neutrophils (Bld) [#/Vol] 6.7 10*3/uL 1.8-7.7 [facility] Neutrophils/100 WBC Auto (Bl d)Ordered By: Luis Gutierrez on 05-26-2021 Neutrophils/100 WBC (Bld) 75.4 % [facility] No Panel InformationOrdered By: Luis Gutierrez on 05-26-2021 Estimated GFR () > 60 mL/Min [facility] Comment on above: GFR estimated refere nce range: According to KDOQI guidelines, <60 ml/min/1.73m2 is sufficient to diagnose a patient with chronic kidney disease. Pharmacy Creatinine Clearance (Chem N/A [facility] Parathyroid Hormone Intacton 05-26-2021 Parathyroid Hormone Intact 31.2 pg/mL Normal 12-88 [facility] Comment on above: Result Comment: PERF ORMED BY: [place] [address] PATHOLOGIST METAL HANGER TRICIA OSHEA M.D. Performed By: #### C BC, BMP #### [address] Platelet mean volume Auto (B ld) [Entitic vol]Ordered By: Luis Gutierrez on 05-26-2021 Platelet mean volume (Bld) [Entitic vol] 8.6 fL 6.3-10.7 [facility] Platelets Auto (Bld) [#/Vol] Ordered By: Luis Gutierrez on 05-26-2021 Platelets (Bld) [#/Vol] 241 10*3/uL 150-450 [facility] RBC Auto (Bld) [#/Vol]Ordere d By: Luis Gutierrez on 05-26-2021 RBC (Bld) [#/Vol] 4.24 10*6/uL 3.60-5.00 [facility] Serum or plasma calcium joseph urement (mass/volume)Ordered By: Luis Gutierrez on 05-26-2021 Calcium [Mass/Vol] 9.4 mg/dL 8.2-10.2 [facility] Serum or plasma chloride liv surement (moles/volume)Ordered By: Luis Gutierrez on 05-26-2021 Chloride [Moles/Vol] 105 mmol/L 95-114 [facility] Serum or plasma glucose joseph urement (mass/volume)Ordered By: Luis Gutierrez on 05-26-2021 Glucose [Mass/Vol] 89 mg/dL 70-100 [facility] Comment on above: ADA recommended refe rence rangeRandom Glucose Reference Range is dependent on time and content of last meal. Glucose of more than 200 mg/dL in a nonstressed, ambulatory subject supports the diagnosis of Diabetes Mellitus. Serum or plasma intact parat hyroid hormone measurement (mass/volume)Ordered By: Luis Gutierrez on 05-26-2021 Parathyrin.intact [Mass/Vol] 31.2 pg/mL [facility] Serum or plasma potassium me asurement (moles/volume)Ordered By: Luis Gutierrez on 05-26-2021 Potassium [Moles/Vol] 4.0 mmol/L 3.5-5.1 [facility] Serum or plasma sodium measu rement (moles/volume)Ordered By: Luis Gutierrez on 05-26-2021 Sodium [Moles/Vol] 137 mmol/L 136-146 [facility] Serum or plasma total carbon dioxide measurement (moles/volume)Ordered By: Luis Gutierrez on 05-26-2021 CO2 [Moles/Vol] 23.0 mmol/L 22.0-30.0 [facility] Serum or plasma urea nitroge n measurement (mass/volume)Ordered By: Luis Gutierrez on 05-26-2021 Urea nitrogen [Mass/Vol] 10 mg/dL 11-03 [facility] TSH DL <= 0.005 mIU/L QnOrde red By: Luis Gutierrez on 05-26-2021 TSH Qn 0.86 m[IU]/L 0.45-5.33 [facility] Thyroid Stimulating Hormoneo n 05-26-2021 TSH Qn 0.86 m[IU]/L Normal 0.45-5.33 [facility] Comment on above: Performed By: #### C A, TSH3, PTH #### [facility] [address] [place] [address] MG MAMM SCREEN 3D GEORGES CADon 05-22-2021 MG MAMM SCREEN 3D GEORGES CAD Patient: ALEXANDRA CERVANTES Exam Date: 05/22/2021 : 1950 Gender:F Ordering : DR DANYELL MORALES M.D. Admission #: [id number] Family : Order #: [id number] CLICK HERE TO VIEW EXAM RADIOLOGY REPORT [...] Killian MD on 05/22/2021 at 12:06 Normal [facility] CT Chest w/Contraston 2021 CT Chest w/Contrast Please see CT neck report dated: 05/17/2021. Report reported and signed by Valente Lion on 05/22/2021 1528 Normal [facility] CT Soft Tissue Neck w/ Contr ast*on [...] by Valente Lion on 05/22/[address] [facility] Specialist Gastroenterology Office/Clin ic Noteon 05-11-2021 [...] or guardian consented to allow Uzma Jeronimo Booker to record this visit. JASS client resource specialist and provider reviewed before signing. JASS: Lillie Santiago. Follow-up With When Contact Information AJNINA ALARCON, LENORE Farooq MED Within 6 months [facility] [address] [place] [address]- Additional Instructions: Problem List/Past Medical History Ongoing [...] 1 tab(s), Oral, TID levothyroxine, Daily NuLYTELY [place] oral powder for reconstitution, See Instructions omeprazole, [...] influenza virus vaccine, inactivated 11/2020 Recorded Normal [facility] Comment on above: Result Comment: [...] omeprazole polyethylene glycol 3350 with electrolytes (NuLYTELY [place] oral powder for reconstitution) simvastatin Procedures Performed Colonoscopy, flexible; with biopsy, single or multiple (02/16/2020), Colonoscopy. Discharge Vitals Blood Pressure 180/90 Height 150.0 cm Height 150 cm Weight 71.0 kg Weight 71 kg BMI 31.56 What to do next You Need to Schedule the Following Appointments Follow Up with Capri ROA MD, GAS, MED When: Within 6 months Where: [facility] [address] [place] [address]- Medications What How Much When Why Instructions Changed sulfasalazine (sulfasalazine 500 mg Tab) 2 Tablets By Mouth 3 times a day Pickup at [facility]/pharmacy #[id number] Unchanged alprazolam By Mouth Contact prescribing physician [...] Unchanged polyethylene glycol 3350 with electrolytes (NuLYTELY [place] oral powder for reconstitution) See instructions PER PHYS INSRTUCTIONS Contact prescribing physician if questions or concerns Unchanged simvastatin By Mouth Contact prescribing physician if questions or concerns Pharmacy Information [facility]/pharmacy #[id number]: [address], [place] [id number] [phone] Allergies No Known Allergies Problems Ongoing - Any problem that you are currently receiving treatment for. Chronic pancolonic ulcerative colitis Normal [facility] esophaguson 05-04-[address] [facility] [place] [address] [place] [address] Fluoroscopy Report Signed Patient: Alexandra Cervantes MR#: [id number] 2 : 1950 Acct:[id number] Age/Sex: 71 / F ADM Date: 05/04/21 Loc: XD Room: Type: [facility] Attending Dr: Cy Sears MD Ordering Provider: Cy Sears MD Date of Service: 05/04/21 IN/IN esophagus: K22.9 Copies to: Cy Sears MD [...] Kitchen Jr., M.D.05/04/2021 3:37 PM Dictation Location: [place] [address] Transcribed By: [facility] 05/04/211536 Dictated By: Selvin Kitchen Jr, MD 05/04/211531 Signed By: 05/04/21 1537 Normal [facility] Lab Reportson 04-26-2021 Lab Reports [id number]:[id number] Normal [facility] CBC AUTO DIFFon 04-20-2021 BASO # 0.1 103/ul Normal 0.0-0.1 [facility] Comment on above: Performed By: #### C BC #### [facility] [address] [place] [address] Dr. Scooby Irvin Basophils/100 WBC (Bld) 0.4 % Normal 0.2-2.0 [facility] Comment on above: Performed By: #### C BC #### [facility] [address] [place] [address] Dr. Scooby Irvin EO # 0.0 103/ul Normal 0.0-0.7 [facility] Comment on above: Performed By: #### C BC #### [facility] [address] [place] [address] Dr. Scooyb Irvin Eosinophils/100 WBC (Bld) 0.2 % Critically low 0.9-7.0 [facility] Comment on above: Performed By: #### C BC #### [facility] [address] [place] [address] Dr. Scooby Irvin Erythrocyte distribution width (RBC) [Ratio] 16.7 % Critically high 11.0-15.0 [facility] Comment on above: Performed By: #### C BC #### [facility] [address] [place] [address] Dr. Scooby Irvin Hematocrit (Bld) [Volume fraction] 37.6 % Normal 36.0-48.0 [facility] Comment on above: Performed By: #### C BC #### [facility] [address] [place] [address] Dr. Scooby Irvin Hemoglobin (Bld) [Mass/Vol] 12.0 g/dL Normal 12.0-16.0 [facility] Comment on above: Performed By: #### C BC #### [facility] [address] [place] [address] Dr. Scooby Irvin IG # 0.02 10e3/ul Normal 0.00-0.03 [facility] Comment on above: Performed By: #### C BC #### [facility] [address] [place] [address] Dr. Scooby Irvin IG % 0.2 % Normal 0.0-0.5 [facility] Comment on above: Performed By: #### C BC #### [facility] [address] [place] [address] Dr. Scooby Irvin LYMPH # 1.6 103/ul Normal 1.2-3.8 [facility] Comment on above: Performed By: #### C BC #### [facility] [address] [place] [address] Dr. Scooby Irvin Lymphocytes/100 WBC (Bld) 13.6 % Critically low 20.5-60.0 [facility] Comment on above: Performed By: #### C BC #### [facility] [address] [place] [address] Dr. Scooby Irvin MANUAL DIFF REQ NO Normal [facility] Comment on above: Performed By: #### C BC #### [facility] [address] [place] [address] Dr. Scooby Irvin MCH (RBC) [Entitic mass] 28.6 pg Normal 26.7-34.0 [facility] Comment on above: Performed By: #### C BC #### [facility] [address] [place] [address] Dr. Scooby Irvin MCHC (RBC) [Mass/Vol] 31.9 g/dL Normal 29.9-35.2 [facility] Comment on above: Performed By: #### C BC #### [facility] [address] [place] [address] Dr. Scooby Irvin MCV (RBC) [Entitic vol] 89.5 fL Normal 81.0-99.0 [facility] Comment on above: Performed By: #### C BC #### [facility] [address] [place] [address] Dr. Scooby Irvin MONO # 0.7 103/ul Normal 0.3-0.8 [facility] Comment on above: Performed By: #### C BC #### [facility] [address] [place] [address] Dr. Scooby Irvin Monocytes/100 WBC (Bld) 5.8 % Normal 1.7-12.0 [facility] Comment on above: Performed By: #### C BC #### [facility] [address] [place] [address] Dr. Scooby Irvin NEUT # 9.1 103/ul Critically high 1.4-6.5 [facility] Comment on above: Performed By: #### C BC #### [facility] [address] [place] [address] Dr. Scooby Irvin Neutrophils/100 WBC (Bld) 79.8 % Critically high 43.0-75.0 [facility] Comment on above: Performed By: #### C BC #### [facility] [address] [place] [address] Dr. Scooby Irvin Platelet mean volume (Bld) [Entitic vol] 10.2 fL Normal 9.5-13.5 [facility] Comment on above: Performed By: #### C BC #### [facility] [address] [place] [address] Dr. Scooby Irvin PLT 217 103/ul Normal 150-450 [facility] Comment on above: Performed By: #### C BC #### [facility] [address] [place] [address] [address] Scooby Irvin RBC 4.20 106/ul Normal 4.20-5.40 [facility] Comment on above: Performed By: #### C BC #### [facility] [address] [place] [address] [address] Scooby Irvin WBC 11.4 103/ul Critically high 4.0-11.0 [facility] Comment on above: Performed By: #### C BC #### [facility] [address] [place] [address] Dr. Scooby Irvin PROF 14(COMP METB)on 022 Albumin [Mass/Vol] 3.9 g/dL Normal 3.5-5.0 [facility] Comment on above: Performed By: #### C MP #### [facility] [address] [place] [address] Dr. Scooby Irvin Albumin/Globulin [Mass ratio] 1.1 {ratio} Normal [facility] Comment on above: Performed By: #### C MP #### [facility] [address] [place] [address] Dr. Scooby Irvin ALP [Catalytic activity/Vol] 72 U/L Normal 38-126 [facility] Comment on above: Performed By: #### C MP #### [facility] [address] [place] [address] Dr. Scooby Irvin ALT [Catalytic activity/Vol] 23 U/L Normal 9-52 [facility] Comment on above: Performed By: #### C MP #### [facility] [address] [place] [address] Dr. Scooby Irvin Anion gap [Moles/Vol] 10.2 mmol/L Normal [facility] Comment on above: Performed By: #### C MP #### [facility] [address] [place] [address] [address] Scooby Irvin AST [Catalytic activity/Vol] 20 U/L Normal 14-36 [facility] Comment on above: Performed By: #### C MP #### [facility] [address] [place] [address] [address] Scooby Irvin Bilirubin [Mass/Vol] 0.5 mg/dL Normal 0.2-1.3 [facility] Comment on above: Performed By: #### C MP #### [facility] [address] [address] [address] Scooby Irvin Calcium [Mass/Vol] 8.8 mg/dL Normal 8.4-10.2 [facility] Comment on above: Performed By: #### C MP #### [facility] [address] [address] [address] Scooby Irvin Chloride [Moles/Vol] 104 mmol/L Normal 98-107 [facility] Comment on above: Performed By: #### C MP #### [facility] [address] [address] [address] Scooby Irvin CO2 [Moles/Vol] 28.0 mmol/L Normal 22.0-30.0 [facility] Comment on above: Performed By: #### C MP #### [facility] [address] [address] [address] Scooby Irvin Creatinine [Mass/Vol] 0.87 mg/dL Normal 0.52-1.04 [facility] Comment on above: Performed By: #### C MP #### [facility] [address] [address] [address] Scooby Irvin EGFR-AF [place] >60 Normal >=60 [facility] Comment on above: Performed By: #### C MP #### [facility] [address] [address] [address] Scooby Irvin EGFR-NON AF [place] >60 Normal >=60 [facility] Comment on above: Performed By: #### C MP #### [facility] [address] [address] [address] Scooby Irvin Globulin (S) [Mass/Vol] 3.5 g/dL Normal [facility] Comment on above: Performed By: #### C MP #### [facility] [address] [place] [address] Dr. Scooby Irvin Glucose [Mass/Vol] 93 mg/dL Normal 74-106 [facility] Comment on above: Performed By: #### C MP #### [facility] [address] [place] [address] Dr. Scooby Irvin Potassium [Moles/Vol] 4.2 mmol/L Normal 3.4-5.0 [facility] Comment on above: Performed By: #### C MP #### [facility] [address] [place] [address] Dr. Scooby Irvin Protein [Mass/Vol] 7.4 g/dL Normal 6.1-8.2 [facility] Comment on above: Performed By: #### C MP #### [facility] [address] [place] [address] Dr. Scooby Irvin Sodium [Moles/Vol] 138 mmol/L Normal 137-145 [facility] Comment on above: Performed By: #### C MP #### [facility] [address] [place] [address] Dr. Scooby Irvin Urea nitrogen [Mass/Vol] 15.0 mg/dL Normal 7.0-17.0 [facility] Comment on above: Performed By: #### C MP #### [facility] [address] [place] [address] Dr. Scooby Irvin Urea nitrogen/Creatinine [Mass ratio] 17.2 mg/mg Normal [facility] Comment on above: Performed By: #### C MP #### [facility] [address] [place] [address] Dr. Sco[address]vin PET CT SKULL BASE MID THIGHo n 04-07-[address] SKULL BASE MID THIGH EXAMINATION: PET CT SKULL BASE MID THIGH HISTORY: Lung field abnormal COMPARISON: CT lung cancer screening to 1022 TECHNIQUE: After obtaining the patient's consent, F-[id number] [...] by: VALENTE BARRETO Date: 2021-04-07 08:[address] [facility] [address] LUNG CANCER SCREENINGon 0 03-23-2021 [...] 03-09-2021 BASO # 0.1 103/ul Normal 0.0-0.1 [facility] Comment on above: Performed By: #### C BC #### [facility] [address] [place] [address] Dr. Scooby Irvin Basophils/100 WBC (Bld) 1.2 % Normal 0.2-2.0 [facility] Comment on above: Performed By: #### C BC #### [facility] [address] [place] [address] Dr. Scooby Irvin EO # 0.1 103/ul Normal 0.0-0.7 [facility] Comment on above: Performed By: #### C BC #### [facility] [address] [address] [address] Scooby Irvin Eosinophils/100 WBC (Bld) 1.4 % Normal 0.9-7.0 [facility] Comment on above: Performed By: #### C BC #### [facility] [address] [address] [address] Scooby Irvin Erythrocyte distribution width (RBC) [Ratio] 16.3 % Critically high 11.0-15.0 [facility] Comment on above: Performed By: #### C BC #### [facility] [address] [place] [address] Dr. Scooby Irvin Hematocrit (Bld) [Volume fraction] 39.6 % Normal 36.0-48.0 [facility] Comment on above: Performed By: #### C BC #### [facility] [address] [place] [address] Dr. Scooby Irvin Hemoglobin (Bld) [Mass/Vol] 12.6 g/dL Normal 12.0-16.0 [facility] Comment on above: Performed By: #### C BC #### [facility] [address] [place] [address] Dr. Scooby Irvin IG # 0.01 10e3/ul Normal 0.00-0.03 [facility] Comment on above: Performed By: #### C BC #### [facility] [address] [place] [address] Dr. Scooby Irvin IG % 0.2 % Normal 0.0-0.5 [facility] Comment on above: Performed By: #### C BC #### [facility] [address] [place] [address] Dr. Scooby Irvin LYMPH # 1.6 103/ul Normal 1.2-3.8 [facility] Comment on above: Performed By: #### C BC #### [facility] [address] [place] [address] Dr. Scooby Irvin Lymphocytes/100 WBC (Bld) 30.7 % Normal 20.5-60.0 [facility] Comment on above: Performed By: #### C BC #### [facility] [address] [place] [address] Dr. Scooby Irvin MANUAL DIFF REQ NO Normal [facility] Comment on above: Performed By: #### C BC #### [facility] [address] [place] [address] Dr. Scooby Irvin MCH (RBC) [Entitic mass] 28.4 pg Normal 26.7-34.0 [facility] Comment on above: Performed By: #### C BC #### [facility] [address] [place] [address] Dr. Scooby Irvin MCHC (RBC) [Mass/Vol] 31.8 g/dL Normal 29.9-35.2 [facility] Comment on above: Performed By: #### C BC #### [facility] [address] [place], [place] [id number] Dr. Scooby Irvin MCV (RBC) [Entitic vol] 89.2 fL Normal 81.0-99.0 [facility] Comment on above: Performed By: #### C BC #### [facility] [address] [place] [address] Dr. Scooby Irvin MONO # 0.6 103/ul Normal 0.3-0.8 [facility] Comment on above: Performed By: #### C BC #### [facility] [address] [place] [address] Dr. Scooby Irvin Monocytes/100 WBC (Bld) 11.5 % Normal 1.7-12.0 [facility] Comment on above: Performed By: #### C BC #### [facility] [address] [place] [address] Dr. Scooby Irvin NEUT # 2.8 103/ul Normal 1.4-6.5 [facility] Comment on above: Performed By: #### C BC #### [facility] [address] [place] [address] Dr. Scooby Irvin Neutrophils/100 WBC (Bld) 55.0 % Normal 43.0-75.0 [facility] Comment on above: Performed By: #### C BC #### [facility] [address] [place] [address] Dr. Scooby Irvin Platelet mean volume (Bld) [Entitic vol] 10.3 fL Normal 9.5-13.5 [facility] Comment on above: Performed By: #### C BC #### [facility] [address] [place] [address] Dr. Scooby Irvin PLT 208 103/ul Normal 150-450 [facility] Comment on above: Performed By: #### C BC #### [facility] [address] [place] [address] Dr. Scooby Irvin RBC 4.44 106/ul Normal 4.20-5.40 [facility] Comment on above: Performed By: #### C BC #### [facility] [address] [place] [address] Dr. Scooby Irvin WBC 5.1 103/ul Normal 4.0-11.0 [facility] Comment on above: Performed By: #### C BC #### [facility] [address] [address] [address] Scooby Irvin FREE T4on 03-09-2021 Free T4 [Mass/Vol] 1.15 ng/dL Normal 0.78-2.19 [facility] Comment on above: Performed By: #### C BC #### [facility] [address] [address] [address] Scooby Irvin LIPID PROFILEon 03-09-2021 CHOL-HDL RATIO NORM SEE BELOW Normal [facility] Comment on above: Result Comment: 3.3 - 4.4 LOW RISK 4.4 - 7.1 AVERAGE RISK 7.1 - 11.0 MODERATE RISK >11.0 HIGH RISK Performed By: #### L IPID, CMP, TSH #### [facility] [address] [address] [address] Scooby Irvin Cholesterol [Mass/Vol] 227 mg/dL Critically high <=200 [facility] Comment on above: Performed By: #### L IPID, CMP, TSH #### [facility] [address] [address] [address] Scooby Irvin Cholesterol in HDL [Mass/Vol] 65 mg/dL Normal [facility] Comment on above: Performed By: #### L IPID, CMP, TSH #### [facility] [address] [address] [address] Scooby Irvin Cholesterol in LDL [Mass/Vol] 142.6 mg/dL Normal [facility] Comment on above: Performed By: #### L IPID, CMP, TSH #### [facility] [address] [address] [address] Scooby Irvin Cholesterol.total/Rachel sterol in HDL [Mass ratio] 3.5 {ratio} Normal [facility] Comment on above: Performed By: #### L IPID, CMP, TSH #### [facility] [address] [address] [address] Scooby Irvin HDL NORMAL > or = 60 mg/dl - LOW CARDIOVASCULAR RISK <40 mg/dl - HIGH CARDIOVASCULAR RISK Normal [facility] Comment on above: Performed By: #### L IPID, CMP, TSH #### [facility] [address] [address] [address] Scooby Irvin LDL CALC NORMAL SEE BELOW Normal [facility] Comment on above: Result Comment: <100 mg/dl OPTIMAL 100 - 129 mg/dl NEAR OR ABOVE OPTIMAL 130 - 159 mg/dl BORDERLINE HIGH 160 - 189 mg/dl HIGH >190 mg/dl VERY HIGH Performed By: #### L IPID, CMP, TSH #### [facility] [address] [address] [address] Scooby Irvin Triglyceride [Mass/Vol] 97 mg/dL Normal <=150 [facility] Comment on above: Performed By: #### L IPID, CMP, TSH #### [facility] [address] [address] [address] Scooby Irvin VLDL CALC 19.4 mg/dL Normal [facility] Comment on above: Performed By: #### L IPID, CMP, TSH #### [facility] [address] [address] [address] Scooby Irvin PROF 14(COMP METB)on 022 Albumin [Mass/Vol] 4.0 g/dL Normal 3.5-5.0 [facility] Comment on above: Performed By: #### L IPID, CMP, TSH #### [facility] [address] [address] [address] Scooby Irvin Albumin/Globulin [Mass ratio] 1.1 {ratio} Normal [facility] Comment on above: Performed By: #### L IPID, CMP, TSH #### [facility] [address] [address] [address] Scooby Irvin ALP [Catalytic activity/Vol] 80 U/L Normal 38-126 [facility] Comment on above: Performed By: #### L IPID, CMP, TSH #### [facility] [address] [address] [address] Scooby Irvin ALT [Catalytic activity/Vol] 35 U/L Normal 9-52 [facility] Comment on above: Performed By: #### L IPID, CMP, TSH #### [facility] [address] [address] [address] Scooby Irvin Anion gap [Moles/Vol] 11.8 mmol/L Normal [facility] Comment on above: Performed By: #### L IPID, CMP, TSH #### [facility] [address] [address] [address] Scooby Irvin AST [Catalytic activity/Vol] 24 U/L Normal 14-36 [facility] Comment on above: Performed By: #### L IPID, CMP, TSH #### [facility] [address] [address] [address] Scooby Irvin Bilirubin [Mass/Vol] 0.5 mg/dL Normal 0.2-1.3 [facility] Comment on above: Performed By: #### L IPID, CMP, TSH #### [facility] [address] [address] [address] Scooby Irvin Calcium [Mass/Vol] 9.3 mg/dL Normal 8.4-10.2 [facility] Comment on above: Performed By: #### L IPID, CMP, TSH #### [facility] [address] [address] [address] Scooby Irvin Chloride [Moles/Vol] 105 mmol/L Normal 98-107 [facility] Comment on above: Performed By: #### L IPID, CMP, TSH #### [facility] [address] [address] [address] Scooby Irvin CO2 [Moles/Vol] 26.2 mmol/L Normal 22.0-30.0 [facility] Comment on above: Performed By: #### L IPID, CMP, TSH #### [facility] [address] [address] [address] Scooby Irvin Creatinine [Mass/Vol] 0.83 mg/dL Normal 0.52-1.04 [facility] Comment on above: Performed By: #### L IPID, CMP, TSH #### [facility] [address] [address] [address] Scooby Irvin EGFR-AF [place] >60 Normal >=60 [facility] Comment on above: Performed By: #### L IPID, CMP, TSH #### [facility] [address] [address] [address] Scooby Irvin EGFR-NON AF [place] >60 Normal >=60 [facility] Comment on above: Performed By: #### L IPID, CMP, TSH #### [facility] [address] [address] [address] Scooby Irvin Globulin (S) [Mass/Vol] 3.8 g/dL Normal [facility] Comment on above: Performed By: #### L IPID, CMP, TSH #### [facility] [address] [address] [address] Scooby Irvin Glucose [Mass/Vol] 112 mg/dL Critically high 74-106 [facility] Comment on above: Performed By: #### L IPID, CMP, TSH #### [facility] [address] [place] [address] Dr. Scooby Irvin Potassium [Moles/Vol] 4.0 mmol/L Normal 3.4-5.0 [facility] Comment on above: Performed By: #### L IPID, CMP, TSH #### [facility] [address] [place] [address] Dr. Scooby Irvin Protein [Mass/Vol] 7.8 g/dL Normal 6.1-8.2 [facility] Comment on above: Performed By: #### L IPID, CMP, TSH #### [facility] [address] [place] [address] Dr. Scooby Irvin Sodium [Moles/Vol] 139 mmol/L Normal 137-145 [facility] Comment on above: Performed By: #### L IPID, CMP, TSH #### [facility] [address] [place] [address] Dr. Scooby Irvin Urea nitrogen [Mass/Vol] 15.0 mg/dL Normal 7.0-17.0 [facility] Comment on above: Performed By: #### L IPID, CMP, TSH #### [facility] [address] [place], [place] [address] Dr. Scooby Irvin Urea nitrogen/Creatinine [Mass ratio] 18.1 mg/mg Normal [facility] Comment on above: Performed By: #### L IPID, CMP, TSH #### [facility] [address] [place], [place] [address] Dr. Scooby Irvin TSHon 03-09-2021 TSH 2.761 uIU/mL Normal 0.470-4.680 [facility] Comment on above: Performed By: #### L IPID, CMP, TSH #### [facility] [address] [address] [address] Scooby Irvin TSH RANGE SEE BELOW Normal [facility] Comment on above: Result Comment: <0.3 4 UIU/ml HYPERTHYROID 0.34-5.60 UIU/ml EUTHYROID >5.60 UIU/ml HYPOTHYROID Performed By: #### L IPID, CMP, TSH #### [facility] [address] [address] [address] Scooby Irvin Vital Signs Date Time Vital Sign Value Performing Clinician Facility 09-04-2022 09:00-0400 Body height 140.97 cm Danyell Morales Other [facility] Other 09-04-2022 09:00-0400 Body mass index (BMI) [Ratio] 36.74 kg/m2 Danyell Morales Other [facility] Other 09-04-2022 09:00-0400 Body weight 73.03 kg Danyell Morales Other [facility] Other 09-04-2022 09:00-0400 Diastolic blood pressure 78 mm[Hg] Danyell Morales Other [facility] Other 09-04-2022 09:00-0400 SaO2% (BldA) [Mass fraction] 97 % Danyell Morales Other [facility] Other 09-04-2022 09:00-0400 Systolic blood pressure 132 mm[Hg] Danyell Morales Other [facility] Other 03-01-2022 10:30-0500 Body height 140.97 cm Danyell Morales Other [facility] Other 03-01-2022 10:30-0500 Body mass index (BMI) [Ratio] 36.06 kg/m2 Danyell Morales Other [facility] Other 03-01-2022 10:30-0500 Body weight 71.67 kg Danyell Morales Other [facility] Other 03-01-2022 10:30-0500 Diastolic blood pressure 84 mm[Hg] Danyell Morales Other [facility] Other 03-01-2022 10:30-0500 SaO2% (BldA) [Mass fraction] 98 % Danyell Morales Other [facility] Other 03-01-2022 10:30-0500 Systolic blood pressure 132 mm[Hg] Danyell Morales Other [facility] Other 11-08-2021 10:17-0400 Diastolic blood pressure 74 mm[Hg] Farooq SALAM [facility] 11-08-2021 10:17-0400 Mean blood pressure 99 mm[Hg] Farooq SALAM [facility] 11-08-2021 10:17-0400 Systolic blood pressure 148 mm[Hg] Farooq SALAM [facility] 11-08-2021 10:15-0400 Blood Pressure Location Farooq SALAM [facility] 11-08-2021 10:15-0400 Diastolic blood pressure 95 mm[Hg] Farooq SALAM [facility] 11-08-2021 10:15-0400 Heart rate 78 /min Farooq SALAM [facility] 11-08-2021 10:15-0400 Respiratory rate 16 /min Farooq SALAM [facility] 11-08-2021 10:15-0400 Systolic blood pressure 159 mm[Hg] Farooq SALAM [facility] 05-10-2021 11:11-0400 Diastolic blood pressure 90 mm[Hg] Farooq SALAM [facility] 05-10-2021 11:11-0400 Systolic blood pressure 180 mm[Hg] Farooq SALAM [facility] Encounters Encounter Date Encounter Type Care Provider Facility Start: 10-16-2023 End: 10-16-2023 ambulatory JASIEL B APLING Not Available Start: 09-10-2023 End: 09-10-2023 ambulatory DANIELLE LOPEZ Not Available Start: 08-26-2023 End: 08-26-2023 ambulatory JASIEL B APLING Not Available Start: 03-07-2023 End: 03-07-2023 ambulatory Danyell Morales Other [facility] Other Start: 03-07-2023 Office outpatient vi sit 15 minutes Danyell Morales [facility] Start: 09-20-2022 End: 09-20-2022 ambulatory Danyell Morales Other [facility] Other Start: 09-20-2022 Telephone encounter Danyell Morales [facility] Start: 09-04-2022 End: 09-04-2022 ambulatory Danyell Morales Other [facility] Other Start: 09-04-2022 Patient encounter procedure Danyell Morales [facility] Start: 04-19-[address] DANYELL MORALES Facil ity:[facility] Start: 03-01-2022 End: 03-01-2022 ambulatory Danyell Morales Other [facility] Other Start: 03-01-2022 Office outpatient vi sit 15 minutes Danyell Morales [facility] Start: 01-18-2022 End: 01-19-[address] DANYELL MORALES Facility:[facility] Start: 11-21-2021 End: 11-22-2021 ambulatory CAPRI ROA Facility:[facility] Start: 11-08-2021 End: 11-09-[address] [facility] Facility:[facility] Start: 11-08-2021 End: 11-08-[address] [facility] Start: 10-19-2021 End: 10-20-[address] DANYELL MORALES Facility:[facility] Start: 09-27-2021 End: 09-28-[address] DANYELL MORALES Facility:[facility] Start: 09-26-2021 End: 09-26-[address] DANYELL MORALES Facility:[facility] Start: 09-25-2021 Encounter for preprocedural laboratory examination DR RADHA IRAHETA [facility] Start: 09-22-2021 End: 09-23-[address] DANYELL MORALES Facility:[facility] Start: 09-22-2021 End: 09-23-2021 Encounter for preprocedural laboratory examination DR DANYELL MORALES Facility:[facility] Start: 09-11-[address] DANYELL MORALES Facil ity:[facility] Start: 09-06-2021 End: 09-07-2021 ambulatory ROBERTO MCNALLY Facility:[facility] Start: 08-30-2021 Adult health examination Malia Morales Other [facility] Other Start: 06-22-2021 End: 06-23-2021 ambulatory FAROOQ KUNALAM Facility:[facility] Start: 05-31-2021 End: 05-31-2021 ambulatory Luis Gutierrez Facility:[facility] Start: 05-26-2021 End: 05-26-2021 ambulatory Danyell Morales Facility:[facility] Start: 05-26-2021 End: 05-26-2021 Patient encounter procedure MD Cy Sears Work Phone: [facility] Start: 05-22-2021 End: 05-23-[address] DANYELL MORALES Facility:[facility] Start: 05-10-2021 ambulatory Farooqsabrina SYEDAM [facility] Start: 05-10-2021 End: 05-11-2021 ambulatory Farooq SALAM Facility:[facility] Start: 05-10-2021 End: 05-10-2021 Patient encounter procedure Farooq SALAM [facility] Start: 05-09-2021 ambulatory Farooqsabrina ROA [facility] Start: 05-04-2021 End: 05-04-2021 ambulatory Cy Sears Facility:[facility] Start: 05-04-2021 End: 05-04-2021 Patient encounter procedure MD Cy Sears Work Phone: [facility] [place] Start: 04-20-2021 End: 04-21-2021 ambulatory FAROOQ SALAM Facility:[facility] Start: 04-05-2021 ambulatory Farooqsabrina ROA [facility] Start: 04-01-2021 End: 04-02-[address] DANYELL MORALES Facility:[facility] Start: 03-23-2021 End: 03-24-[address] DANYELL MORALES Facility:[facility] Start: 03-09-2021 End: 03-10-[address] DANYELL MORALES Facility:[facility] Start: 01-24-2021 ambulatory Farooq KUNALAM Facility:[facility] Procedures Date Procedure Procedure Detail Performing Clinician Start: 05-31-2021 Antibody screen Benjami n Murcek Comment on above: Order Comment: Trans fuse now? N Result Comment: PERF ORMED BY: [facility] [place] [address] PATHOLOGIST [employer] TRICIA OSHEA M.D. Start: 02-16-2020 Colonoscopy w/biopsy single/multiple [facility] Farooq Flotype Screening for malign ant neoplasm of breast Danyell Morales Other Immunizations Immunization Date Immunization Notes Care Provider Fa cili 12-09-2020 COVID-19 mRNA-1273 (Moderna) MD Cy Sears Work Phone: [facility] 11-15-2020 influenza virus vaccine, split virus (incl. purified surface antigen) Danyell Morales Other [facility] Other 11-11-2020 influenza virus vaccine, unspecified formulation Farooq Flotype [facility] 04-26-2020 COVID-19 mRNA-1273 (Moderna) MD Cy Sears Work Phone: [facility] 03-23-2020 COVID-19 mRNA-1273 (Moderna) MD Cy Sears Work Phone: [facility] 11-20-2019 influenza virus vaccine, split virus (incl. purified surface antigen) Danyell Morales Other [facility] Other 10-24-2016 influenza virus vaccine, split virus (incl. purified surface antigen) Danyell Morales Other [facility] Other 10-24-2016 pneumococcal conjuga te vaccine, 13 valent Danyell Morales Other [facility] Other 08-31-2014 tetanus toxoid, reduced diphtheria toxoid, and acellular pertussis vaccine, adsorbed Danyell Morales Other [facility] Other 11-30-2013 pneumococcal polysaccharide vaccine, 23 valent Danyell Morales Other [facility] Other NEGATED: Highlighted row has not occurred!11-08-2021 influenza virus vaccine, unspecified formulation [facility] Payers Date Payer Category Payer Self-pay [id number] 2021 Private Health Insurance CLI [id number] 1961 Medicare [id number] 1961 Unknown [id number] 1950 Unknown [id number] 1950 Unknown [id number] 2.16.8 40.1.776310.3.579.2.727 1950 Unknown [id number] 2.16.84 0.1.603026.3.579.2.727 1948 Unknown [id number] 2.16.84 0.1.332300.3.579.2.593 1948 Unknown [id number] 2.16.84 0.1.877302.3.579.2.593 1948 Unknown [id number] 2.16.84 0.1.338543.3.579.2.593 1948 Unknown [id number] 2.16.84 0.1.291875.3.579.2.593 1948 Unknown [id number] 2.16.84 0.1.788720.3.579.2.593 1948 Unknown [id number] 2.16.84 0.1.767059.3.579.2.593 1948 Unknown [id number] 2.16.84 0.1.493045.3.579.2.593 1948 Unknown [id number] 2.16.84 0.1.032036.3.579.2.593 1948 Unknown [id number] 2.16.84 0.1.918228.3.579.2.593 1948 Unknown [id number] 2.16.84 0.1.658015.3.579.2.593 1948 Unknown [id number] 2.16.84 0.1.890857.3.579.2.593 1948 Unknown [id number] 2.16.84 0.1.458744.3.579.2.593 1948 Unknown [id number] 2.16.84 0.1.492839.3.579.2.593 1948 Unknown [id number] 2.16.84 0.1.409184.3.579.2.593 1948 Unknown [id number] 2.16.84 0.1.866724.3.579.2.593 1948 Unknown [id number] 2.16.84 0.1.313301.3.579.2.593 1948 Unknown [id number] 2.16.84 0.1.831197.3.579.2.593 1948 Unknown [id number] 2.16.84 0.1.996625.3.579.2.1259 1948 Unknown [id number] 2.16.84 0.1.092154.3.579.2.1259 1948 Unknown [id number] 2.16.84 0.1.415434.3.579.2.1259 1948 Unknown [id number] 2.16.84 0.1.513557.3.579.2.1259 Medicare Self Pay [id number] Unknown [id number] 2.16.8 40.1.697511.3.579.2.531 Unknown [id number] 2.16.8 40.1.553296.3.579.2.531 Unknown [id number] 2.16.8 40.1.718050.3.579.2.531 Social History Date Type Detail Facility Tobacco smoking stat [facility] Unknown if ever smoked [facility] Work Phone: Start: 1950 Sex Assigned At Female F [facility] Start: 05-10-2021 End: 11-08-2021 Tobacco smoking status Heavy tobacco smoker (finding) [facility] Sex Assigned At Female [facility] Start: 05-26-2021 Tobacco smoking stat [facility] Smoker (finding) [facility] Functional Status Date Assessment Result Facility 11-08-2021 Functional Status N/A [facility] Clinical Notes 01-24-2021 to 03-07-2023 [...] continue to monitor through routine blood work [facility] Other 08-10-2023 Evaluation note* Encounter Date Diagnosis Assessment Notes Treatment Notes Treatment Clinical Notes Sep, Right foot pain (ICD-10 - M79.671) [facility] Other 07-25-2023 Evaluation note* Encounter Date Diagnosis [...] - E03.9) Chronic problem due for labs. [facility] Other 01-19-2023 Evaluation note* Encounter Date Diagnosis [...] - E78.5) Due for labs in summer. [facility] Other [id number] NoteCONSULTATION PROCEDURE DATE: 01/18/2022 PREOPERATIVE DIAGNOSIS: Left [...] in the office.[facility] [id number] NoteCONSULTATION CONSULTATION DATE: 01/18/2022 HISTORY OF PRESENT [...] unless otherwise indicated.[facility] [id number] Evaluation + Plan note Diagnostic Tests Pending * CBC w/ Auto Diff 11/08/21 * Comprehensive Metabolic Panel 11/08/21 [facility] [id number] NoteCONSULTATION PROCEDURE DATE: 11/16/2021 PRE AND POSTOPERATIVE [...] unless otherwise indicated.[facility] [id number] NoteCONSULTATION CONSULTATION DATE: 09/06/2021 HISTORY OF PRESENT [...] 8/10. She has been following up with [facility] and had a benign fibroid [...] to move forward.[facility] [id number] NoteCONSULTATION PAIN MANAGEMENT CONSULTATION HISTORY: This is [...] of care and will call when needed. [facility] Signed and Approved by: ROBERTO MCNALLY . 04/27/2021 12:41:00[facility]12-14-2021 Hospital Discharge instructions Follow Up Care 01/24/2021 10:04:31 With:Capri ROA MD, [facility], [facility] Address: [facility] [address] [place] [address] [place] [address]- When:6 months [facility] Evaluation + Plan note Future Appointments Appointment Date:11/08/2021 10:15:00 AM Scheduled Provider:Capri ROA MD Location:[facility] Appointment Type:[facility] Follow Up Future Scheduled Tests Laboratory* CBC w/ Indices 07/25/20 * Comprehensive Metabolic Panel 07/25/20 [facility] Evaluation noteNo assessment information available [facility] Work Phone: [facility] general Narrative - Reported* Type Description Date Medical History GERD Medical History Hypothyroid Medical History Depression Surgical History Appendectomy Surgical History Tubal Ligation Surgical History Right carpal tunnel Surgical History Right finger Surgical History 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 Hospitalization History See past surgical hx [facility] Other Hospital course Narrative No data available for this section [facility] Hospital Discharge instructions No data available for this section [facility] Progress note No data available for this section [facility] Chief Complaint and Reason [...] pain (M79 .671) Referral Organization [facility] Referring Provider First Name Danyell Referring Provider Last Name Robin Referring Provider Specialty [facility] Referred Organization [facility] Referred Provider Seymour Johnson Referred Address [address] [place] [phone] Referred Provider Specialty Podiatry - S urgical [...] section and content) DATE CREATED AUTHOR 05/23/2021 [facility] DATE CREATED AUTHOR AUTHOR'S ORGANIZ ATION 11/14/2021 [facility] DATE CREATED AUTHOR AUTHOR'S ORGANIZ ATION 01/23/2022 [facility] DATE CREATED AUTHOR AUTHOR'S ORGANIZ ATION 03/17/2022 [facility] DATE CREATED AUTHOR AUTHOR'S ORGANIZ ATION 10/17/2023 [facility] EPIC REASON FOR VISIT (unrecogniz [...] BE BASED ON THE PRIMARY CLINICAL RECORDS. [employer] provides no warranty or guarantee of the accuracy or completeness of information in this document.
--- NOTE | 2023-10-23 11:25 | P.CN_ITS ---
Consult Note: HPI Data of Consult Patient: known to practice within the last 3 years Requesting Physician: Renee Bernal NP Primary Care Provider: Danyell Kelly MD Consult Narrative Reason for consult: MRI f/u Narrative: Tisha guerra pleasant 73 year old female presents for evaluation of chronic right foot pain secondary to lumbar radiculopathy. Patient has failed to benefit from >6 weeks of PT, tylenol, nsaids, and topical voltaren cream. Patient currently utilizing aleve PRN, baclofen. tried zonegran 50mg HS for 1 week without benefit no side effects but she stopped taking it. Patient recently underwent lumbar MRI and is here to review the results. cc:: CC: Renee Bernal NP Review of Systems ROS Status of ROS 10 or more systems reviewed and unremark able except as noted in history and below Musculoskeletal Reports: back pain, extremity pain and joint pain Meds Home Medications and Allergies Home Medications ?Medication ?Instructions ?Recorded ?Confirmed ?Type alprazolam 0.5 mg tablet 0.5 mg PO DAILY 09/10/23 09/10/23 History baclofen 10 mg tablet 10 mg PO DAILY PRN spasms 09/10/23 09/10/23 History escitalopram oxalate 20 mg tablet 20 mg PO DAILY 09/10/23 09/10/23 History ibuprofen 400 mg tablet 400 mg PO TID 09/10/23 09/10/23 History levothyroxine 75 mcg tablet 75 mcg PO DAILY 09/10/23 09/10/23 History omeprazole 40 mg capsule,delayed 40 mg PO DAILY 09/10/23 09/10/23 History release simvastatin 40 mg tablet 40 mg PO DAILY 09/10/23 09/10/23 History sulfasalazine 500 mg tablet 0.5 g PO DAILY 09/10/23 09/10/23 History zonisamide 50 mg capsule 50 mg PO DAILY 09/10/23 09/10/23 History Allergies Allergy/AdvReac Type Severity Reaction Status Date / Time No Known Drug Allergies Allergy Verified 02/09/23 11:10 Exam Constitutional Documenting provider has reviewed patient's vital signs: yes Common normals: no apparent distress, oriented x3, healthy appearing, alert and well nourished General appearance: cooperative HENMT Common normals: normocephalic, hearing grossly normal bilaterally and moist oral mucous membranes Head and scalp: normocephalic Eye Common normals: PERRL Pupil: PERRL Neck & C-Spine Common normals: full ROM General: normal visual inspection Chest Common normals: inspection of chest normal Respiratory Common normals: normal respiratory effort, no retractions and no use of accessory muscles Back & Pelvis Lumbar spine/lower back: ROM limited, pain with ROM and straight leg raise positive right Sacroiliac joints: SI joints normal Other: positive facet loading strength 4/5 in RLE 5/5 in LLE altered sensation to l5/s1 in left foot/ankle Neuro Common normals: oriented x3, CN's II-XII intact bilaterally, moves all extremities, no focal motor deficits, no sensory deficits noted and deep tendon reflexes 2+ bilaterally Sensorium/orientation: alert Motor exam: strength 5/5 throughout and no movement abnormalities noted Psych Common normals: mental status grossly normal, thought process normal, cooperative, affect normal, speech normal and activity/motor behavior normal Speech: normal speech Thought process: normal thought process Results Imaging Lumbar MRI: Attestation: I have reviewed the pertinent imaging results. Radiologist's impression: For the purposes of numbering, sagittal T2 image # extends from the vertebral body superiorly to the level inferiorly. PARASPINAL AREA: Numerous stones within noninflamed gallbladder. BONES: 3 mm retrolisthesis of L1 on 2 along with Modic type I edematous degenerative endplate changes at this level. 3 mm anterior listhesis of L4 on 5. There is 6 mm anterior listhesis of L5 on S1 secondary to bilateral pars interarticularis defects. CORD/CAUDA EQUINA: Normal caliber, contour, and signal intensity. DISC LEVELS: 12-L1: Early degenerative disc disease is present without focal protrusion or neural impingement. L1-L2: Mild central canal narrowing. Moderate to marked foramen narrowing bilaterally. Grade 1 retrolisthesis of L1 on 2, mild diffuse disc bulging with moderate disc height reduction, and edematous degenerative endplate changes, and mild bilateral facet arthropathy. L2-L3: Mild central canal narrowing. Moderate left, mild right foramen narrowing. L3-L4: Early degenerative disc disease is present without focal protrusion or neural impingement. L4-L5: Mild central canal and moderate bilateral foramen narrowing. Grade 1 anterolisthesis of L4 on 5 mild posterior pseudodisc bulging and mild disc at reduction. Moderate degenerative facet arthropathy bilaterally. L5-S1: Mild central canal and marked bilateral foramen narrowing. Grade 1, bordering on grade 2 anterior listhesis of L5 on S1 with prominent posterior central disc bulging and moderate disc height reduction. Marked degenerative facet arthropathy bilaterally. Additional Findings Additional findings: If on a controlled substance or opioids, I have checked an [place] report on this patient and there are no aberrancies noted in the prescribing history.??If on a controlled substance or opioid a drug screen was completed and reviewed within the last year, and if there has not been a drug screen completed we ordered one today to monitor higher risk, state monitored pain medication use. As part of providing excellent, safe, comprehensive care, the following was completed at our patient's visit: 1. A medication reconciliation and review to ensure accurate knowledge of current/active medications, including asking our patients to inform us about any [id number] medications or herbal remedies/nutritional supplements/alternative remedies. 2. A review to specifically ensure our patients have had annual screening for screening for depression, screening for tobacco use, and screening for unhealthy alcohol use. For concerning screenings had a discussion with the patient, provided patient education, and recommended follow-up with primary care provider when appropriate. If patient noted with a risk of falling, they received education on strength, gait, and balance training to prevent future risk of falling. Assessment and Plan Assessment and Plan (1) Lumbar radiculopathy: (2) Lumbar degenerative disc disease: (3) Spondylolisthesis: Assessment and Plan: defer NS evaluation per pt request, continue to monitor with xrays with flexion Plan MRI reviewed with patient proceed with L5-S1 TAMMY under fluoroscopy for lumbar radiculopathy lumbar DDD, risks vs benefits reviewed continue HEP as tolerated 1 fall without injury in the last year increase zonegran 100mg HS, risks vs benefits reviewed f/u 2 weeks after TAMMY
== END 2023-10-23 10:47 | disposition home or self-care (01) ==
LOC: PM 10:46
PROVIDERS: PCP Family Medicine; Visit Provider Nurse Practitioner
DX: M54.16 Radiculopathy, lumbar region (principal); M51.36 Other intervertebral disc degeneration, lumbar region; M43.16 Spondylolisthesis, lumbar region
CPT/HCPCS: G0463

== ENCOUNTER 2023-10-29 08:58 | Day surgery (SDC) | payer MEDICARE, OTHER, SELFPAY ==
--- OUTSIDE RECORDS SUMMARY | 2023-10-29 09:21 | XMS_ITS | CCD ---
Author Organization [facility] Care Team Providers Care Specialist Field Engineer Name Role Phone MD Cy Sears Attending Provider MD Danyell Morales Primary Care Provider [phone] DANYELL MORALES Primary Care Physician DO Luis Gutierrez Attending Provider Capri ROA Attending Unavailable SALAM, Capri Attending Unavailable SALAM, Capri Attending Unavailable MORALES, DR DANYELL Solis Attending Unavailable MORALES, DR DANYELL Solis Admitting Unavailable MORALES, DR DANYELL Solis Primary Care Unavailable ESTEVAN, DR VALENTE Salas Consulting Unavailable MORALES, DR DANYELL Solis Consulting Unavailable MORALES, DR DANYELL Solis Attending Unavailable OMRALES, DR DANYELL Solis Admitting Unavailable MORALES, DR [...] Unavailable MORALES, DR DANYELL Solis Attending Unavailable COOLIDGE, DR LONNY Wiggins Consulting Unavailable MORALES, DR [...] Facility (4 sources) varenicline Drug Allergy Unknown Servoyant Other Medications Current Medications Medication Drug Class(es) [...] PO Daily May 26, 2021 2:53pm NuLYTELY [place] oral powder for reconstitution (1 source) Start: 01-28-2020 take 1 dose by mouth once NuLYTELY [place] oral powder for reconstitution See Instructions, 1 [...] Once a day Active polyethylene glycol 3350 764306 mg / potassium chloride 1480 mg / sodium bicarbonate 5720 mg / sodium chloride 59548 mg powder for oral solution (1 source) Osmotic Laxative Start: 01-28-2020 take 1 dose by mouth once NuLYTELY [place] oral powder for reconstitution See Instructions, 1 [...] # 180 tab(s), Refills(s) 11, Pharmacy: [facility]/pharmacy #[id number], 150, cm, 05/10/21 11:13:00 EDT, [...] 11-21-2021 BASO # 0.1 103/ul Normal 0.0-0.1 [facility] Comment on above: Performed By: #### C BC #### [facility] [address] [address] [address] Scooby Irvin Basophils/100 WBC (Bld) 0.5 % Normal 0.2-2.0 [facility] Comment on above: Performed By: #### C BC #### [facility] [address] [address] [address] Scooby Irvin EO # 0.0 103/ul Normal 0.0-0.7 [facility] Comment on above: Performed By: #### C BC #### [facility] [address] [place] [address] Dr. Scooby Irvin Eosinophils/100 WBC (Bld) 0.1 % Critically low 0.9-7.0 [facility] Comment on above: Performed By: #### C BC #### [facility] [address] [place] [address] Dr. Scooby Irvin Erythrocyte distribution width (RBC) [Ratio] 15.1 % Critically high 11.0-15.0 [facility] Comment on above: Performed By: #### C BC #### [facility] [address] [place] [address] Dr. Scooby Irvin Hematocrit (Bld) [Volume fraction] 39.4 % Normal 36.0-48.0 [facility] Comment on above: Performed By: #### C BC #### [facility] [address] [place] [address] Dr. Scooby Irvin Hemoglobin (Bld) [Mass/Vol] 12.6 g/dL Normal 12.0-16.0 [facility] Comment on above: Performed By: #### C BC #### [facility] [address] [place] [address] Dr. Scooby Irvin IG # 0.05 10e3/ul Critically high 0.00-0.03 [facility] Comment on above: Performed By: #### C BC #### [facility] [address] [place] [address] Dr. Scooby Irvin IG % 0.5 % Normal 0.0-0.5 [facility] Comment on above: Performed By: #### C BC #### [facility] [address] [place] [address] Dr. Scooby Irvin LYMPH # 1.3 103/ul Normal 1.2-3.8 [facility] Comment on above: Performed By: #### C BC #### [facility] [address] [place] [address] Dr. Scooby Irvin Lymphocytes/100 WBC (Bld) 13.2 % Critically low 20.5-60.0 [facility] Comment on above: Performed By: #### C BC #### [facility] [address] [place] [address] Dr. Scooby Irvin MANUAL DIFF REQ NO Normal [facility] Comment on above: Performed By: #### C BC #### [facility] [address] [place] [address] Dr. Scooby Irvin MCH (RBC) [Entitic mass] 30.0 pg Normal 26.7-34.0 [facility] Comment on above: Performed By: #### C BC #### [facility] [address] [place] [address] Dr. Scooby Irvin MCHC (RBC) [Mass/Vol] 32.0 g/dL Normal 29.9-35.2 [facility] Comment on above: Performed By: #### C BC #### [facility] [address] [place] [address] Dr. Scooby Irvin MCV (RBC) [Entitic vol] 93.8 fL Normal 81.0-99.0 [facility] Comment on above: Performed By: #### C BC #### [facility] [address] [place] [address] Dr. Scooby Irvin MONO # 0.7 103/ul Normal 0.3-0.8 [facility] Comment on above: Performed By: #### C BC #### [facility] [address] [place] [address] Dr. Scooby Irvin Monocytes/100 WBC (Bld) 7.2 % Normal 1.7-12.0 [facility] Comment on above: Performed By: #### C BC #### [facility] [address] [place] [address] Dr. Scooby Irvin NEUT # 7.5 103/ul Critically high 1.4-6.5 [facility] Comment on above: Performed By: #### C BC #### [facility] [address] [place] [address] Dr. Scooby Irvin Neutrophils/100 WBC (Bld) 78.5 % Critically high 43.0-75.0 [facility] Comment on above: Performed By: #### C BC #### [facility] [address] [address] [address] Scooby Irvin Platelet mean volume (Bld) [Entitic vol] 9.9 fL Normal 9.5-13.5 [facility] Comment on above: Performed By: #### C BC #### [facility] [address] [place] [address] Dr. Scooby Irvin PLT 230 103/ul Normal 150-450 [facility] Comment on above: Performed By: #### C BC #### [facility] [address] [place] [address] Dr. Scooby Irvin RBC 4.20 106/ul Normal 4.20-5.40 [facility] Comment on above: Performed By: #### C BC #### [facility] [address] [place] [address] Dr. Scooby Irvin WBC 9.5 103/ul Normal 4.0-11.0 [facility] Comment on above: Performed By: #### C BC #### [facility] [address] [place] [address] Dr. Scooby Irvin PROF 14(COMP METB)on 022 Albumin [Mass/Vol] 3.9 g/dL Normal 3.4-5.0 [facility] Comment on above: Performed By: #### C BC #### [facility] [address] [place] [address] Dr. Scooby Irvin Albumin/Globulin [Mass ratio] 1.0 {ratio} Normal [facility] Comment on above: Performed By: #### C BC #### [facility] [address] [place] [address] Dr. Scooby Irvin ALP [Catalytic activity/Vol] 87 U/L Normal 46-116 [facility] Comment on above: Performed By: #### C BC #### [facility] [address] [place] [address] Dr. Scooby Irvin ALT [Catalytic activity/Vol] 29 U/L Normal 14-59 [facility] Comment on above: Performed By: #### C BC #### [facility] [address] [address] [address] Scooby Irvin Anion gap [Moles/Vol] 14.1 mmol/L Normal [facility] Comment on above: Performed By: #### C BC #### [facility] [address] [address] [address] Scooby Irvin AST [Catalytic activity/Vol] 38 U/L Critically high 15-37 [facility] Comment on above: Performed By: #### C BC #### [facility] [address] [place] [address] Dr. Scooby Irvin Bilirubin [Mass/Vol] 0.5 mg/dL Normal 0.2-1.0 [facility] Comment on above: Performed By: #### C BC #### [facility] [address] [place] [address] Dr. Scooby Irvin Calcium [Mass/Vol] 9.2 mg/dL Normal 8.5-10.1 [facility] Comment on above: Performed By: #### C BC #### [facility] [address] [place] [address] Dr. Scooby Irvin Chloride [Moles/Vol] 102 mmol/L Normal 98-107 [facility] Comment on above: Performed By: #### C BC #### [facility] [address] [place] [address] Dr. Scooby Irvin CO2 [Moles/Vol] 25.7 mmol/L Normal 21.0-32.0 [facility] Comment on above: Performed By: #### C BC #### [facility] [address] [place] [address] Dr. Scooby Irvin Creatinine [Mass/Vol] 0.76 mg/dL Normal 0.55-1.02 [facility] Comment on above: Performed By: #### C BC #### [facility] [address] [place] [address] Dr. Scooby Irvin EGFR-AF [place] >60 Normal >=60 [facility] Comment on above: Performed By: #### C BC #### [facility] [address] [place] [address] Dr. Scooby Irvin EGFR-NON AF [place] >60 Normal >=60 [facility] Comment on above: Performed By: #### C BC #### [facility] [address] [place] [address] Dr. Scooby Irvin Globulin (S) [Mass/Vol] 3.8 g/dL Normal T [facility] Comment on above: Performed By: #### C BC #### [facility] [address] [place] [address] Dr. Scooby Irvin Glucose [Mass/Vol] 104 mg/dL Normal 74-106 [facility] Comment on above: Performed By: #### C BC #### [facility] [address] [place] [address] Dr. Scooby Irvin Potassium [Moles/Vol] 4.8 mmol/L Normal 3.5-5.1 [facility] Comment on above: Performed By: #### C BC #### [facility] [address] [place] [address] Dr. Scooby Irvin Protein [Mass/Vol] 7.7 g/dL Normal 6.4-8.2 [facility] Comment on above: Performed By: #### C BC #### [facility] [address] [place] [address] Dr. Scooby Irvin Sodium [Moles/Vol] 137 mmol/L Normal 136-145 [facility] Comment on above: Performed By: #### C BC #### [facility] [address] [place] [address] Dr. Scooby Irvin Urea nitrogen [Mass/Vol] 9.0 mg/dL Normal 7.0-18.0 [facility] Comment on above: Performed By: #### C BC #### [facility] [address] [place] [address] Dr. Scooby Irvin Urea nitrogen/Creatinine [Mass ratio] 11.8 mg/mg Normal [facility] Comment on above: Performed By: #### C BC #### [facility] [address] [place] [address] Dr. Scooby Irvin Gastroenterology Office/Clin ic Noteon [...] done for her thyroid and cholesterol at [place]. Alexandra denies having any other GI concerns [...] Jeronimo eXperience to record this visit. JASS presales senior specialist and provider reviewed before signing. JASS: [...] 1 tab(s), Oral, TID levothyroxine, Daily NuLYTELY [place] oral powder for reconstitution, See Instructions omeprazole, [...] virus vaccine, inactivated 11/2020 Recorded Normal [facility] Comment on above: Result Comment: Elec [...] omeprazole polyethylene glycol 3350 with electrolytes (NuLYTELY [place] oral powder for reconstitution) simvastatin sulfasalazine (sulfasalazine [...] Unchanged polyethylene glycol 3350 with electrolytes (NuLYTELY [place] oral powder for reconstitution) See instructions PER [...] treatment for. Chronic pancolonic ulcerative colitis Normal [facility] LIPID PROFILEon 09-27-2021 CHOL-HDL RATIO NORM SEE BELOW Normal [facility] Comment on above: Result Comment: 3.3 - 4.4 LOW RISK 4.4 - 7.1 AVERAGE RISK 7.1 - 11.0 MODERATE RISK >11.0 HIGH RISK Performed By: #### C MP, LIPID #### [facility] [address] [address] [address] Scooby Irvin Cholesterol [Mass/Vol] 235 mg/dL Critically high <=200 [facility] Comment on above: Performed By: #### C MP, LIPID #### [facility] [address] [address] [address] Scooby Irvin Cholesterol in HDL [Mass/Vol] 65 mg/dL Critically high 40-60 [facility] Comment on above: Performed By: #### C MP, LIPID #### [facility] [address] [address] [address] Scooby Irvin Cholesterol in LDL [Mass/Vol] 156.8 mg/dL Normal [facility] Comment on above: Performed By: #### C MP, LIPID #### [facility] [address] [address] [address] Scooby Irvin Cholesterol.total/Rachel sterol in HDL [Mass ratio] 3.6 {ratio} Normal [facility] Comment on above: Performed By: #### C MP, LIPID #### [facility] [address] [address] [address] Scooby Irvin HDL NORMAL > or = 60 mg/dl - LOW CARDIOVASCULAR RISK <40 mg/dl - HIGH CARDIOVASCULAR RISK Normal [facility] Comment on above: Performed By: #### C MP, LIPID #### [facility] [address] [address] [address] Scooby Irvin LDL CALC NORMAL SEE BELOW Normal [facility] Comment on above: Result Comment: <100 mg/dl OPTIMAL 100 - 129 mg/dl NEAR OR ABOVE OPTIMAL 130 - 159 mg/dl BORDERLINE HIGH 160 - 189 mg/dl HIGH >190 mg/dl VERY HIGH Performed By: #### C MP, LIPID #### [facility] [address] [place] [address] Dr. Scooby Irvin Triglyceride [Mass/Vol] 66 mg/dL Normal <=150 T [facility] Comment on above: Performed By: #### C MP, LIPID #### [facility] [address] [place] [address] Dr. Scooby Irvin VLDL CALC 13.2 mg/dL Normal [facility] Comment on above: Performed By: #### C MP, LIPID #### [facility] [address] [place] [address] Dr. Scooby Irvin PROF 14(COMP METB)on 022 Albumin [Mass/Vol] 3.9 g/dL Normal 3.4-5.0 [facility] Comment on above: Performed By: #### C MP, LIPID #### [facility] [address] [place] [address] Dr. Scooby Irvin Albumin/Globulin [Mass ratio] 1.1 {ratio} Normal [facility] Comment on above: Performed By: #### C MP, LIPID #### [facility] [address] [place] [address] Dr. Scooby Irvin ALP [Catalytic activity/Vol] 87 U/L Normal 46-116 [facility] Comment on above: Performed By: #### C MP, LIPID #### [facility] [address] [address] [address] Scooby Irvin ALT [Catalytic activity/Vol] 27 U/L Normal 14-59 [facility] Comment on above: Performed By: #### C MP, LIPID #### [facility] [address] [place] [address] Dr. Scooby Irvin Anion gap [Moles/Vol] 16.9 mmol/L Normal [facility] Comment on above: Performed By: #### C MP, LIPID #### [facility] [address] [address] [address] Scooby Irvin AST [Catalytic activity/Vol] 21 U/L Normal 15-37 [facility] Comment on above: Performed By: #### C MP, LIPID #### [facility] [address] [place] [address] Dr. Scooby Irvin Bilirubin [Mass/Vol] 0.4 mg/dL Normal 0.2-1.0 [facility] Comment on above: Performed By: #### C MP, LIPID #### [facility] [address] [place] [address] Dr. Scooby Irvin Calcium [Mass/Vol] 8.7 mg/dL Normal 8.5-10.1 [facility] Comment on above: Performed By: #### C MP, LIPID #### [facility] [address] [place] [address] Dr. Scooby Irvin Chloride [Moles/Vol] 102 mmol/L Normal 98-107 [facility] Comment on above: Performed By: #### C MP, LIPID #### [facility] [address] [place] [address] Dr. Scooby Irvin CO2 [Moles/Vol] 22.0 mmol/L Normal 21.0-32.[address] [facility] Comment on above: Performed By: #### C MP, LIPID #### [facility] [address] [place] [address] Dr. Scooby Irvin Creatinine [Mass/Vol] 0.73 mg/dL Normal 0.55-1.02 [facility] Comment on above: Performed By: #### C MP, LIPID #### [facility] [address] [address] [address] Scooby Irvin EGFR-AF [place] >60 Normal >=[address] [facility] Comment on above: Performed By: #### C MP, LIPID #### [facility] [address] [address] [address] Scooby Irvin EGFR-NON AF [place] >60 Normal >=60 [facility] Comment on above: Performed By: #### C MP, LIPID #### [facility] [address] [address] [address] Scooby Irvin Globulin (S) [Mass/Vol] 3.7 g/dL Normal T [facility] Comment on above: Performed By: #### C MP, LIPID #### [facility] [address] [place] [address] Dr. Scooby Irvin Glucose [Mass/Vol] 105 mg/dL Normal 74-106 [facility] Comment on above: Performed By: #### C MP, LIPID #### [facility] [address] [place] [address] Dr. Scooby Irvin Potassium [Moles/Vol] 3.9 mmol/L Normal 3.5-5.1 [facility] Comment on above: Performed By: #### C MP, LIPID #### [facility] [address] [place] [address] Dr. Scooby Irvin Protein [Mass/Vol] 7.6 g/dL Normal 6.4-8.2 [facility] Comment on above: Performed By: #### C MP, LIPID #### [facility] [address] [place] [address] Dr. Scooby Irvin Sodium [Moles/Vol] 137 mmol/L Normal 136-145 [facility] Comment on above: Performed By: #### C MP, LIPID #### [facility] [address] [place] [address] Dr. Scooby Irvin Urea nitrogen [Mass/Vol] 11.0 mg/dL Normal 7.0-18.0 [facility] Comment on above: Performed By: #### C MP, LIPID #### [facility] [address] [place] [address] Dr. Scooby Irvin Urea nitrogen/Creatinine [Mass ratio] 15.1 mg/mg Normal [facility] Comment on above: Performed By: #### C MP, LIPID #### [facility] [address] [place] [address] Dr. Scooby Irvin TSHon 09-27-2021 TSH 2.198 uIU/mL Normal 0.358-3.740 [facility] Comment on above: Performed By: #### T SH #### [facility] [address] [address] [address] Scooby Irvin Covid-19 PCR ([facility])on 09-11 SARS-CoV-2 (COVID-19) RNA ADELITA+probe Ql (Unsp spec) Not detected Normal NOT DETECTED [facility] Comment on above: Result Comment: This test is not yet approved or cleared by the [place] FDA. When there are no FDA-approved or cleared tests available, and other criteria are met, FDA can make tests available under an emergency access mechanism called an Emergency Use Authorization (EUA). The EUA for this test is supported by the [employer] of Health and Human Service's (HHS's) declaration [...] SARS-CoV-2. Performed By: #### C BC #### [facility] [address] [address] [address] Scooby Irvin TSHon 06-22-2021 TSH 2.326 uIU/mL Normal 0.358-3.740 [facility] Comment on above: Performed By: #### C BC #### [facility] [address] [address] [address] Scooby Irvin TSH RANGE SEE BELOW Normal [facility] Comment on above: Result Comment: <0.3 4 UIU/ml HYPERTHYROID 0.34-5.60 UIU/ml EUTHYROID >5.60 UIU/ml HYPOTHYROID Performed By: #### C BC #### [facility] [address] [place], [place] [address] Dr. Scooby Irvin ABO/Rh Retypeon 05-31-2021 ABO/RH Recheck Result Positive Normal [facility] Comment on above: Result Comment: PERF ORMED BY: [facility] [address] [place] [address] PATHOLOGIST PULLEY MORTISER OPERATOR TRICIA Yin 05-31-2021 L Specimen: [id number] Received: 05/31/21 Status: LIDIA Pineda Num: [id number] Spec Type: Surgical Subm Dr: Luis Gutierrez DO Tissues: A Parathyroid Gland (R/O PARATHYROID) B THYROID - Lobe (R SUBSTERNAL THYROID) Procedures: HE Stain/8, Gross/Micro L5, Gross/Micro L4 Patient Age/Sex Location Account Attending Physician Alexandra Cervantes 71/F [place] [id number] Luis Gutierrez DO SPEC NUM: [id number] RECD: 05/31/21 STATUS: LIDIA PINEDA NUM: [id number] KATHY: 05/31/21- SUBM DR: Luis Gutierrez DO ENTERED: 05/31/21-1057 [facility] DR: LANCE TYPE: Surgical DEPT: S [...] Specimen: Received: 05/31/21 Status: LIDIA Pineda Num: [id number] Spec Type: Surgical Subm Dr: Luis Gutierrez DO Tissues: A Parathyroid Gland (R/O PARATHYROID) B THYROID - Lobe (R SUBSTERNAL THYROID) Procedures: HE Stain/8, Gross/Micro L5, Gross/Micro L4 Patient: Alexandra Cervantes [id number] (Continued) Specimen: Received: 05/31/21 (Continued) Gross Description (Continued) Signed (signatur e on file) Tricia Oshea MD 06/01/211912 Specimen: Received: 05/31/21 Status: LIDIA Pineda Num: [id number] Spec Type: Surgical Subm Dr: Luis Gutierrez DO Tissues: A Parathyroid Gland (R/O PARATHYROID) B THYROID - Lobe (R SUBSTERNAL THYROID) Procedures: HE Stain/8, Gross/Micro L5, Gross/Micro L4 Patient: Alexandra Cervantes [id number] (Continued) Specimen: Received: 05/31/21 (Continued) Gross Description [...] microscopic findings support the above pathologic diagnosis. [id number], [id number], [id number] Specimen: [id number] Received: (more content not included)... Normal [facility] LeukoReduced RBCon 2 LeukoReduced RBC READY Normal [facility] Type and Screenon 05-31-2021 ABO and Rh group Nom (Bld) Blood group O Rh(D) positive [place] Comment on above: Order Comment: Trans fuse now? N Result Comment: PERF ORMED BY: [facility] [address] [place] [address] PATHOLOGIST PULLEY MORTISER OPERATOR TRICIA OSHEA M.D. Basic Metabolic Panelon 05-12 Calcium [Mass/Vol] 9.5 mg/dL Normal 8.2-10.2 [facility] Comment on above: Result Comment: PERF ORMED BY: [facility] [address] [place] [address] PATHOLOGIST PULLEY MORTISER OPERATOR TRICIA OSHEA M.D. Performed By: #### C KELSEY, BMP #### [facility] [address] [place] [address] [facility] Chloride [Moles/Vol] 105 mmol/L Normal 95-114 [facility] Comment on above: Performed By: #### C BC, BMP #### [facility] [address] CO2 [Moles/Vol] 23.0 mmol/L Normal 22.0-30.0 [facility] Comment on above: Performed By: #### C BC, BMP #### [facility] [address] Creatinine [Mass/Vol] 0.66 mg/dL Normal 0.44-1.03 [facility] Comment on above: Performed By: #### C BC, BMP #### [facility] [address] Estimated GFR ( Traci > 60 Normal [facility] Comment on above: Result Comment: GFR estimated reference range: According to KDOQI guidelines, <60 ml/min/1.73m2 is sufficient to diagnose a patient with chronic kidney disease. Performed By: #### C BC, BMP #### [facility] [address] Estimated GFR (Non- Am > 60 Normal [facility] Comment on above: Performed By: #### C BC, BMP #### [facility] [address] Glucose [Mass/Vol] 89 mg/dL Normal 70-100 [facility] Comment on above: Result Comment: [place] Glucose Reference Range is dependent on time and content of last meal. Glucose of more than 200 mg/dL in a nonstressed, ambulatory subject supports the diagnosis of Diabetes Mellitus. ADA recommended reference range Performed By: #### C BC, BMP #### [facility] [address] [place] [address] [place] Potassium [Moles/Vol] 4.0 mmol/L Normal 3.5-5.1 [facility] Comment on above: Performed By: #### C BC, BMP #### [facility] [address] Sodium [Moles/Vol] 137 mmol/L Normal 136-146 [facility] Comment on above: Performed By: #### C BC, BMP #### [facility] [address] Urea nitrogen [Mass/Vol] 10 mg/dL Normal 9-23 [facility] Comment on above: Performed By: #### C BC, BMP #### [facility] [address] Basophils Auto (Bld) [#/Vol] Ordered By: Luis Gutierrez on 05-26-2021 Basophils (Bld) [#/Vol] 0.1 10*3/uL 0.0-0.2 [facility] Basophils/100 WBC Auto (Bld) Ordered By: Luis Gutierrez on 05-26-2021 Basophils/100 WBC (Bld) 0.9 % F [facility] Blood hemoglobin measurement (mass/volume)Ordered By: Luis Gutierrez on 05-26-2021 Hemoglobin (Bld) [Mass/Vol] 12.4 g/dL 11.8-15.4 [facility] Blood leukocytes automated c ount (number/volume)Ordered By: Luis Gutierrez on 05-26-2021 WBC (Bld) [#/Vol] 8.8 10*3/uL 4.5-11.0 [facility] COVID-19 FRMCon 05-26-2021 SARS-CoV-2 (COVID-19) RNA ADELITA+probe Ql (Unsp spec) Negative Normal Negative [facility] Comment on above: Order Comment: Healt hcare Worker?: N Result Comment: Testing for SARS-CoV-2 by RT-PCR This test was developed and its performance characteristics determined by [employer], [email or web address] ([employer]) and validated at the [facility]. This test has not been FDA cleared [...] is terminated or revoked sooner. PERFORMED BY: [place] [address] PATHOLOGIST PULLEY MORTISER OPERATOR TRICIA OSHEA M.D. Performed By: #### C OVID 19 [facility] #### [facility] [address] COVID-19 Positive/NegativeOr dered By: Luis Gutierrez on 05-26-2021 SARS-CoV-2 (COVID-19) N gene ADELITA+probe Ql (Resp) Negative Negative [facility] Comment on above: Testing for SARS-CoV -2 by RT-PCRThis test was developed and its performance characteristics determined by [employer], [employer] ([employer]) and validated at the [facility]. This test has not been FDA cleared [...] 05-26-2021 Calcium [Mass/Vol] 9.4 mg/dL Normal 8.2-10.2 [facility] Comment on above: Performed By: #### C A, TSH3, PTH #### [facility] [address] [place] [address] Complete Blood Count Auto Di ffon 05-26-2021 Basophils (Bld) [#/Vol] 0.1 10*3/uL Normal 0.0-0.2 [facility] Comment on above: Result Comment: PERF ORMED BY: [place] [address] PATHOLOGIST PULLEY MORTISER OPERATOR TRICIA OSHEA M.D. Performed By: #### C BC, BMP #### [address] Basophils/100 WBC (Bld) 0.9 % Normal . F [facility] Comment on above: Performed By: #### C BC, BMP #### [address] Eosinophils (Bld) [#/Vol] 0.0 10*3/uL Normal 0.0-0.45 [facility] Comment on above: Performed By: #### C BC, BMP #### [address] Eosinophils/100 WBC (Bld) 0.2 % Normal . [facility] Comment on above: Performed By: #### C BC, BMP #### [address] Erythrocyte distribution width (RBC) [Ratio] 16.1 % High 11.9-15.3 [facility] Comment on above: Performed By: #### C BC, BMP #### [address] Hematocrit (Bld) [Volume fraction] 37.5 % Normal 34.0-46.4 [facility] Comment on above: Performed By: #### C BC, BMP #### [address] Hemoglobin (Bld) [Mass/Vol] 12.4 g/dL Normal 11.8-15.4 [facility] Comment on above: Performed By: #### C BC, BMP #### [address] Lymphocytes (Bld) [#/Vol] 1.4 10*3/uL Normal 1.00-4.8 [facility] Comment on above: Performed By: #### C BC, BMP #### [address] Lymphocytes/100 WBC (Bld) 15.8 % Normal . [facility] Comment on above: Performed By: #### C BC, BMP #### [address] MCH (RBC) [Entitic mass] 29.2 pg Normal 24.7-34.3 [facility] Comment on above: Performed By: #### C BC, BMP #### [address] MCV (RBC) [Entitic vol] 88.3 fL Normal 80-100 [facility] Comment on above: Performed By: #### C BC, BMP #### [address] Mean Corpuscular HGB Conc 33.1 g/dL Normal 32.0-35.0 [facility] Comment on above: Performed By: #### C BC, BMP #### [address] Monocytes (Bld) [#/Vol] 0.7 10*3/uL Normal 0.0-0.8 [facility] Comment on above: Performed By: #### C BC, BMP #### [address] Monocytes/100 WBC (Bld) 7.7 % Normal . [facility] Comment on above: Performed By: #### C BC, BMP #### [address] Neutrophils (Bld) [#/Vol] 6.7 10*3/uL Normal 1.8-7.7 [facility] Comment on above: Performed By: #### C BC, BMP #### [address] Neutrophils/100 WBC (Bld) 75.4 % Normal . [facility] Comment on above: Performed By: #### C BC, BMP #### [place] [address] [place] Nucleated RBC/100 WBC (Bld) [Ratio] 0.1 % Normal 0-0.5 [facility] Comment on above: Performed By: #### C KELSEY, BMP #### [facility] [address] [place] [address] [place] Platelet mean volume (Bld) [Entitic vol] 8.6 fL Normal 6.3-10.7 [facility] Comment on above: Performed By: #### C KELSEY, BMP #### [facility] [address] [place] [address] [place] Platelets (Bld) [#/Vol] 241 10*3/uL Normal 150-450 [facility] Comment on above: Performed By: #### C KELSEY, BMP #### [facility] [address] RBC (Bld) [#/Vol] 4.24 10*6/uL Normal 3.60-5.00 [facility] Comment on above: Performed By: #### C KELSEY, BMP #### [facility] [address] WBC (Bld) [#/Vol] 8.8 10*3/uL Normal 4.5-11.0 [facility] Comment on above: Performed By: #### C KELSEY, BMP #### [place] [address] [place] Creatinine and Glomerular fi ltration rate.predicted panel (S/P/Bld)Ordered By: Luis Gutierrez on 05-26-2021 Creatinine [Mass/Vol] 0.66 mg/dL 0.44-1.03 [facility] ECG 12 lead ECGon 05-26-2021 ECG 12 lead ECG [facility] Main [place] [address] [place] [address] Electrocardiograph Report Signed Patient: Alexandra Cervantes MR#: [id number] 2 : 1950 Acct:[id number] Age/Sex: 71 / F ADM Date: 05/26/21 Loc: [facility]: [facility] Attending Dr: Luis Gutierrez DO Ordering [...] By Ashley Haines DO 05/27 0848 Normal [facility] Eosinophils Auto (Bld) [#/Vo l]Ordered By: Luis Gutierrez on 05-26-2021 Eosinophils (Bld) [#/Vol] 0.0 10*3/uL 0.0-0.45 [facility] Eosinophils/100 WBC Auto (Bl d)Ordered By: Luis Gutierrez on 05-26-2021 Eosinophils/100 WBC (Bld) 0.2 % [facility] Erythrocyte distribution wid th Auto (RBC) [Ratio]Ordered By: Luis Gutierrez on 05-26-2021 Erythrocyte distribution width (RBC) [Ratio] 16.1 % 11.9-15.3 [facility] Estimated glomerular filtrat ion rate (GFR) non- AmericanOrdered By: Luis Gutiererz on 05-26-2021 GFR/1.73 sq M.predicted among non-blacks MDRD (S/P/Bld) [Vol rate/Area] > 60 mL/Min [facility] Hematocrit Auto (Bld) [Volum e fraction]Ordered By: Luis Gutierrez on 05-26-2021 Hematocrit (Bld) [Volume fraction] 37.5 % 34.0-46.4 [facility] Laboratory - Hematology and Cell countsOrdered By: Luis Gutierrez on 05-26-2021 Nucleated RBC/100 WBC (Bld) [Ratio] 0.1 % 0-0.5 [facility] Lymphocytes Auto (Bld) [#/Vo l]Ordered By: Luis Gutierrez on 05-26-2021 Lymphocytes (Bld) [#/Vol] 1.4 10*3/uL 1.00-4.8 [facility] Lymphocytes/100 WBC Auto (Bl d)Ordered By: Luis Gutierrez on 05-26-2021 Lymphocytes/100 WBC (Bld) 15.8 % [facility] MCH Auto (RBC) [Entitic mass ]Ordered By: Luis Gutierrez on 05-26-2021 MCH (RBC) [Entitic mass] 29.2 pg 24.7-34.3 [facility] MCHC Auto (RBC) [Mass/Vol]Or dered By: Luis Gutierrez on 05-26-2021 MCHC (RBC) [Mass/Vol] 33.1 g/dL 32.0-35.0 [facility] MCV Auto (RBC) [Entitic vol] Ordered By: Luis Gutierrez on 05-26-2021 MCV (RBC) [Entitic vol] 88.3 fL 80-100 [facility] Monocytes Auto (Bld) [#/Vol] Ordered By: Luis Gutierrez on 05-26-2021 Monocytes (Bld) [#/Vol] 0.7 10*3/uL 0.0-0.8 [facility] Monocytes/100 WBC Auto (Bld) Ordered By: Luis Gutierrez on 05-26-2021 Monocytes/100 WBC (Bld) 7.7 % F [facility] Neutrophils Auto (Bld) [#/Vo l]Ordered By: Luis Gutierrez on 05-26-2021 Neutrophils (Bld) [#/Vol] 6.7 10*3/uL 1.8-7.7 [facility] Neutrophils/100 WBC Auto (Bl d)Ordered By: Luis Gutierrez on 05-26-2021 Neutrophils/100 WBC (Bld) 75.4 % [facility] No Panel InformationOrdered By: Luis Gutierrez on 05-26-2021 Estimated GFR () > 60 mL/Min [facility] Comment on above: GFR estimated refere nce range: According to KDOQI guidelines, <60 ml/min/1.73m2 is sufficient to diagnose a patient with chronic kidney disease. Pharmacy Creatinine Clearance (Chem N/A [facility] Parathyroid Hormone Intacton 05-26-2021 Parathyroid Hormone Intact 31.2 pg/mL Normal 12-88 [facility] Comment on above: Result Comment: PERF ORMED BY: [place] [address] PATHOLOGIST PULLEY MORTISER OPERATOR TRICIA OSHAE M.D. Performed By: #### C BC, BMP #### [address] Platelet mean volume Auto (B ld) [Entitic vol]Ordered By: Luis Gutierrez on 05-26-2021 Platelet mean volume (Bld) [Entitic vol] 8.6 fL 6.3-10.7 [facility] Platelets Auto (Bld) [#/Vol] Ordered By: Luis Gutierrez on 05-26-2021 Platelets (Bld) [#/Vol] 241 10*3/uL 150-450 [facility] RBC Auto (Bld) [#/Vol]Ordere d By: Luis Gutierrez on 05-26-2021 RBC (Bld) [#/Vol] 4.24 10*6/uL 3.60-5.00 [facility] Serum or plasma calcium joseph urement (mass/volume)Ordered By: Luis Gutierrez on 05-26-2021 Calcium [Mass/Vol] 9.4 mg/dL 8.2-10.2 [facility] Serum or plasma chloride liv surement (moles/volume)Ordered By: Luis Gutierrez on 05-26-2021 Chloride [Moles/Vol] 105 mmol/L 95-114 [facility] Serum or plasma glucose joseph urement (mass/volume)Ordered By: Luis Gutierrez on 05-26-2021 Glucose [Mass/Vol] 89 mg/dL 70-100 [facility] Comment on above: ADA recommended refe rence rangeRandom Glucose Reference Range is dependent on time and content of last meal. Glucose of more than 200 mg/dL in a nonstressed, ambulatory subject supports the diagnosis of Diabetes Mellitus. Serum or plasma intact parat hyroid hormone measurement (mass/volume)Ordered By: Luis Gutierrez on 05-26-2021 Parathyrin.intact [Mass/Vol] 31.2 pg/mL [facility] Serum or plasma potassium me asurement (moles/volume)Ordered By: Luis Gutierrez on 05-26-2021 Potassium [Moles/Vol] 4.0 mmol/L 3.5-5.1 [facility] Serum or plasma sodium measu rement (moles/volume)Ordered By: Luis Gutierrez on 05-26-2021 Sodium [Moles/Vol] 137 mmol/L 136-146 [facility] Serum or plasma total carbon dioxide measurement (moles/volume)Ordered By: Luis Gutierrez on 05-26-2021 CO2 [Moles/Vol] 23.0 mmol/L 22.0-30.0 [facility] Serum or plasma urea nitroge n measurement (mass/volume)Ordered By: Luis Gutierrez on 05-26-2021 Urea nitrogen [Mass/Vol] 10 mg/dL 11-03 [facility] TSH DL <= 0.005 mIU/L QnOrde red By: Luis Gutierrez on 05-26-2021 TSH Qn 0.86 m[IU]/L 0.45-5.33 [facility] Thyroid Stimulating Hormoneo n 05-26-2021 TSH Qn 0.86 m[IU]/L Normal 0.45-5.33 [facility] Comment on above: Performed By: #### C A, TSH3, PTH #### [facility] [address] [place] [address] MG MAMM SCREEN 3D GEORGES CADon 05-22-2021 MG MAMM SCREEN 3D GEORGES CAD Patient: ALEXANDRA CERVANTES Exam Date: 05/22/2021 : 1950 Gender:F Ordering : DR DANYELL MORALES M.D. Admission #: [id number] Family : Order #: [id number] CLICK HERE TO VIEW EXAM RADIOLOGY REPORT [...] Treatments None Family Cancers None LOCATION: [facility] BREAST COMPOSITION: Scattered areas fibroglandular density. [...] Killian MD on 05/22/2021 at 12:06 Normal [facility] CT Chest w/Contraston 2021 CT Chest w/Contrast Please see CT neck report dated: 05/17/2021. Report reported and signed by Valente Lion on 05/22/2021 1528 Normal [facility] CT Soft Tissue Neck w/ Contr [...] by Valente Lion on 05/22/2021 1528 Normal [facility] Specialist Gastroenterology Office/Clin ic Noteon 05-11-2021 [...] Jeronimo Booker to record this visit. JASS presales senior specialist and provider reviewed before signing. JASS: Lillie Santiago. Follow-up With When Contact Information JANINA ALARCON, LENORE Farooq MED Within 6 months [facility] [address] [place] [address]- Additional Instructions: Problem List/Past Medical History Ongoing [...] 1 tab(s), Oral, TID levothyroxine, Daily NuLYTELY [place] oral powder for reconstitution, See Instructions omeprazole, [...] influenza virus vaccine, inactivated 11/2020 Recorded Normal [facility] Comment on above: Result Comment: Elec [...] omeprazole polyethylene glycol 3350 with electrolytes (NuLYTELY [place] oral powder for reconstitution) simvastatin Procedures Performed Colonoscopy, flexible; with biopsy, single or multiple (02/16/2020), Colonoscopy. Discharge Vitals Blood Pressure 180/90 Height 150.0 cm Height 150 cm Weight 71.0 kg Weight 71 kg BMI 31.56 What to do next You Need to Schedule the Following Appointments Follow Up with Capri ROA MD, GAS, MED When: Within 6 months Where: [facility] [address] [place] [address]- Medications What How Much When Why Instructions Changed sulfasalazine (sulfasalazine 500 mg Tab) 2 Tablets By Mouth 3 times a day Pickup at [facility]/pharmacy #[id number] Unchanged alprazolam By Mouth Contact prescribing physician [...] Unchanged polyethylene glycol 3350 with electrolytes (NuLYTELY [place] oral powder for reconstitution) See instructions PER PHYS INSRTUCTIONS Contact prescribing physician if questions or concerns Unchanged simvastatin By Mouth Contact prescribing physician if questions or concerns Pharmacy Information [facility]/pharmacy #[id number]: [address], [place] [phone] Allergies No Known Allergies Problems Ongoing - Any problem that you are currently receiving treatment for. Chronic pancolonic ulcerative colitis Normal [facility] esophaguson 05-04-2021 SD esophagus [facility] Main [place] [address] [place] [address] Fluoroscopy Report Signed Patient: Alexandra Cervantes MR#: [id number] 2 : 1950 Acct:[id number] Age/Sex: 71 / F ADM Date: 05/04/21 Loc: XD Room: Type: [facility] Attending Dr: Cy Sears MD Ordering Provider: Cy Sears MD Date of Service: 05/04/21 SD/SD esophagus: K22.9 Copies to: Cy Sears MD [...] Kitchen Jr., M.D.05/04/2021 3:37 PM Dictation Location: [place] [address] Transcribed By: [facility] 05/04/211536 Dictated By: Selvin Kitchen Jr, MD 05/04/211531 Signed By: 05/04/21 1537 Normal [facility] Lab Reportson 04-26-2021 Lab Reports [id number]:[id number] Normal [facility] CBC AUTO DIFFon 04-20-2021 BASO # 0.1 103/ul Normal 0.0-0.1 [facility] Comment on above: Performed By: #### C BC #### [facility] [address] [place] [address] Dr. Scooby Irvin Basophils/100 WBC (Bld) 0.4 % Normal 0.2-2.0 [facility] Comment on above: Performed By: #### C BC #### [facility] [address] [place] [address] Dr. Scooby Irvin EO # 0.0 103/ul Normal 0.0-0.7 [facility] Comment on above: Performed By: #### C BC #### [facility] [address] [place] [address] Dr. Scooby Irvin Eosinophils/100 WBC (Bld) 0.2 % Critically low 0.9-7.0 [facility] Comment on above: Performed By: #### C BC #### [facility] [address] [place] [address] Dr. Scooby Irvin Erythrocyte distribution width (RBC) [Ratio] 16.7 % Critically high 11.0-15.0 [facility] Comment on above: Performed By: #### C BC #### [facility] [address] [place] [address] Dr. Scooby Irvin Hematocrit (Bld) [Volume fraction] 37.6 % Normal 36.0-48.0 [facility] Comment on above: Performed By: #### C BC #### [facility] [address] [place] [address] Dr. Scooby Irvin Hemoglobin (Bld) [Mass/Vol] 12.0 g/dL Normal 12.0-16.0 [facility] Comment on above: Performed By: #### C BC #### [facility] [address] [place] [address] Dr. Scooby Irvni IG # 0.02 10e3/ul Normal 0.00-0.03 [facility] Comment on above: Performed By: #### C BC #### [facility] [address] [place] [address] Dr. Scooby Irvin IG % 0.2 % Normal 0.0-0.5 [facility] Comment on above: Performed By: #### C BC #### [facility] [address] [place] [address] Dr. Scooby Irvin LYMPH # 1.6 103/ul Normal 1.2-3.8 [facility] Comment on above: Performed By: #### C BC #### [facility] [address] [place] [address] Dr. Scooby Irvin Lymphocytes/100 WBC (Bld) 13.6 % Critically low 20.5-60.0 [facility] Comment on above: Performed By: #### C BC #### [facility] [address] [place] [address] Dr. Scooby Irvin MANUAL DIFF REQ NO Normal [facility] Comment on above: Performed By: #### C BC #### [facility] [address] [place] [address] Dr. Scooby Irvin MCH (RBC) [Entitic mass] 28.6 pg Normal 26.7-34.0 [facility] Comment on above: Performed By: #### C BC #### [facility] [address] [place] [address] Dr. Scooby Irvin MCHC (RBC) [Mass/Vol] 31.9 g/dL Normal 29.9-35.2 [facility] Comment on above: Performed By: #### C BC #### [facility] [address] [place] [address] Dr. Scooby Irvin MCV (RBC) [Entitic vol] 89.5 fL Normal 81.0-99.0 [facility] Comment on above: Performed By: #### C BC #### [facility] [address] [place] [address] Dr. Scooby Irvin MONO # 0.7 103/ul Normal 0.3-0.8 [facility] Comment on above: Performed By: #### C BC #### [facility] [address] [place] [address] Dr. Scooby Irvin Monocytes/100 WBC (Bld) 5.8 % Normal 1.7-12.0 [facility] Comment on above: Performed By: #### C BC #### [facility] [address] [place] [address] Dr. Scooby Irvin NEUT # 9.1 103/ul Critically high 1.4-6.5 [facility] Comment on above: Performed By: #### C BC #### [facility] [address] [place] [address] Dr. Scooby Irvin Neutrophils/100 WBC (Bld) 79.8 % Critically high 43.0-75.0 [facility] Comment on above: Performed By: #### C BC #### [facility] [address] [place] [address] Dr. Scooby Irvin Platelet mean volume (Bld) [Entitic vol] 10.2 fL Normal 9.5-13.5 [facility] Comment on above: Performed By: #### C BC #### [facility] [address] [place] [address] Dr. Scooby Irvin PLT 217 103/ul Normal 150-450 [facility] Comment on above: Performed By: #### C BC #### [facility] [address] [address] [address] Scooby Irvin RBC 4.20 106/ul Normal 4.20-5.40 [facility] Comment on above: Performed By: #### C BC #### [facility] [address] [address] [address] Scooby Irvin WBC 11.4 103/ul Critically high 4.0-11.[address] [facility] Comment on above: Performed By: #### C BC #### [facility] [address] [place] [address] Dr. Scooby Irvin PROF 14(COMP METB)on 022 Albumin [Mass/Vol] 3.9 g/dL Normal 3.5-5.0 [facility] Comment on above: Performed By: #### C MP #### [facility] [address] [place] [address] Dr. Scooby Irvin Albumin/Globulin [Mass ratio] 1.1 {ratio} Normal [facility] Comment on above: Performed By: #### C MP #### [facility] [address] [place] [address] Dr. Scooby Irvin ALP [Catalytic activity/Vol] 72 U/L Normal 38-126 [facility] Comment on above: Performed By: #### C MP #### [facility] [address] [place] [address] Dr. Scooby Irvin ALT [Catalytic activity/Vol] 23 U/L Normal 9-52 [facility] Comment on above: Performed By: #### C MP #### [facility] [address] [place] [address] Dr. Scooby Irvin Anion gap [Moles/Vol] 10.2 mmol/L Normal [facility] Comment on above: Performed By: #### C MP #### [facility] [address] [address] [address] Scooby Irvin AST [Catalytic activity/Vol] 20 U/L Normal 14-36 [facility] Comment on above: Performed By: #### C MP #### [facility] [address] [address] [address] Scooby Irvin Bilirubin [Mass/Vol] 0.5 mg/dL Normal 0.2-1.3 [facility] Comment on above: Performed By: #### C MP #### [facility] [address] [address] [address] Scooby Irvin Calcium [Mass/Vol] 8.8 mg/dL Normal 8.4-10.2 [facility] Comment on above: Performed By: #### C MP #### [facility] [address] [address] [address] Scooby Irvin Chloride [Moles/Vol] 104 mmol/L Normal 98-107 [facility] Comment on above: Performed By: #### C MP #### [facility] [address] [address] [address] Scooby Irvin CO2 [Moles/Vol] 28.0 mmol/L Normal 22.0-30.[address] [facility] Comment on above: Performed By: #### C MP #### [facility] [address] [address] [address] Scooby Irvin Creatinine [Mass/Vol] 0.87 mg/dL Normal 0.52-1.04 [facility] Comment on above: Performed By: #### C MP #### [facility] [address] [address] [address] Scooby Irvin EGFR-AF CAPE VERDEAN >60 Normal >=60 [facility] Comment on above: Performed By: #### C MP #### [facility] [address] [address] [address] Scooby Irvin EGFR-NON AF [place]AN >60 Normal >=60 [facility] Comment on above: Performed By: #### C MP #### [facility] [address] [address] [address] Scooby Irvin Globulin (S) [Mass/Vol] 3.5 g/dL Normal T [facility] Comment on above: Performed By: #### C MP #### [facility] [address] [place] [address] Dr. Scooby Irvin Glucose [Mass/Vol] 93 mg/dL Normal 74-106 [facility] Comment on above: Performed By: #### C MP #### [facility] [address] [place] [address] Dr. Scooby Irvin Potassium [Moles/Vol] 4.2 mmol/L Normal 3.4-5.0 [facility] Comment on above: Performed By: #### C MP #### [facility] [address] [place] [address] Dr. Scooby Irvin Protein [Mass/Vol] 7.4 g/dL Normal 6.1-8.2 [facility] Comment on above: Performed By: #### C MP #### [facility] [address] [place] [address] Dr. Scooby Irvin Sodium [Moles/Vol] 138 mmol/L Normal 137-145 [facility] Comment on above: Performed By: #### C MP #### [facility] [address] [place] [address] Dr. Scooby Irvin Urea nitrogen [Mass/Vol] 15.0 mg/dL Normal 7.0-17.0 [facility] Comment on above: Performed By: #### C MP #### [facility] [address] [place] [address] Dr. Scooby Irvin Urea nitrogen/Creatinine [Mass ratio] 17.2 mg/mg Normal [facility] Comment on above: Performed By: #### C MP #### [facility] [address] [place] [address] Dr. Scooby Irvin PET CT SKULL BASE [...] by: VALENTE BARRETO Date: 2021-04-07 08:23 Normal [facility] CT LUNG CANCER SCREENINGon 0 03-23-2021 [...] VALENTE BARRETO Date: 2021-03-23 09:57 Normal [facility] CBC AUTO DIFFon 03-09-2021 BASO # 0.1 103/ul Normal 0.0-0.1 [facility] Comment on above: Performed By: #### C BC #### [facility] [address] [place] [address] Dr. Scooby Irvin Basophils/100 WBC (Bld) 1.2 % Normal 0.2-2.0 [facility] Comment on above: Performed By: #### C BC #### [facility] [address] [place] [address] Dr. Scooby Irvin EO # 0.1 103/ul Normal 0.0-0.7 [facility] Comment on above: Performed By: #### C BC #### [facility] [address] [address] [address] Scooby Irvin Eosinophils/100 WBC (Bld) 1.4 % Normal 0.9-7.0 [facility] Comment on above: Performed By: #### C BC #### [facility] [address] [address] [address] Scooby Irvin Erythrocyte distribution width (RBC) [Ratio] 16.3 % Critically high 11.0-15.0 [facility] Comment on above: Performed By: #### C BC #### [facility] [address] [place] [address] Dr. Scooby Irvin Hematocrit (Bld) [Volume fraction] 39.6 % Normal 36.0-48.0 [facility] Comment on above: Performed By: #### C BC #### [facility] [address] [place] [address] Dr. Scooby Irvin Hemoglobin (Bld) [Mass/Vol] 12.6 g/dL Normal 12.0-16.0 [facility] Comment on above: Performed By: #### C BC #### [facility] [address] [place] [address] Dr. Scooby Irvin IG # 0.01 10e3/ul Normal 0.00-0.03 [facility] Comment on above: Performed By: #### C BC #### [facility] [address] [place] [address] Dr. Scooby Irvin IG % 0.2 % Normal 0.0-0.5 [facility] Comment on above: Performed By: #### C BC #### [facility] [address] [place] [address] Dr. Scooby Irvin LYMPH # 1.6 103/ul Normal 1.2-3.8 [facility] Comment on above: Performed By: #### C BC #### [facility] [address] [place] [address] Dr. Scooby Irvin Lymphocytes/100 WBC (Bld) 30.7 % Normal 20.5-60.0 [facility] Comment on above: Performed By: #### C BC #### [facility] [address] [place] [address] Dr. Scooby Irvin MANUAL DIFF REQ NO Normal [facility] Comment on above: Performed By: #### C BC #### [facility] [address] [place] [address] Dr. Scooby Irvin MCH (RBC) [Entitic mass] 28.4 pg Normal 26.7-34.0 [facility] Comment on above: Performed By: #### C BC #### [facility] [address] [place] [address] Dr. Scooby Irvin MCHC (RBC) [Mass/Vol] 31.8 g/dL Normal 29.9-35.2 [facility] Comment on above: Performed By: #### C BC #### [facility] [address] [place], [place] [id number] Dr. Scooby Irvin MCV (RBC) [Entitic vol] 89.2 fL Normal 81.0-99.0 [facility] Comment on above: Performed By: #### C BC #### [facility] [address] [place] [address] Dr. Scooby Irvin MONO # 0.6 103/ul Normal 0.3-0.8 [facility] Comment on above: Performed By: #### C BC #### [facility] [address] [place] [address] Dr. Scooby Irvin Monocytes/100 WBC (Bld) 11.5 % Normal 1.7-12.0 [facility] Comment on above: Performed By: #### C BC #### [facility] [address] [place] [address] Dr. Scooby Irvin NEUT # 2.8 103/ul Normal 1.4-6.5 [facility] Comment on above: Performed By: #### C BC #### [facility] [address] [place] [address] Dr. Scooby Irvin Neutrophils/100 WBC (Bld) 55.0 % Normal 43.0-75.0 [facility] Comment on above: Performed By: #### C BC #### [facility] [address] [place] [address] Dr. Scooby Irvin Platelet mean volume (Bld) [Entitic vol] 10.3 fL Normal 9.5-13.5 [facility] Comment on above: Performed By: #### C BC #### [facility] [address] [place] [address] Dr. Scooby Irvin PLT 208 103/ul Normal 150-450 [facility] Comment on above: Performed By: #### C BC #### [facility] [address] [place] [address] Dr. Scooby Irvin RBC 4.44 106/ul Normal 4.20-5.40 [facility] Comment on above: Performed By: #### C BC #### [facility] [address] [place] [address] Dr. Scooby Irvin WBC 5.1 103/ul Normal 4.0-11.0 [facility] Comment on above: Performed By: #### C BC #### [facility] [address] [address] [address] Scooby Irvin FREE T4on 03-09-2021 Free T4 [Mass/Vol] 1.15 ng/dL Normal 0.78-2.19 [facility] Comment on above: Performed By: #### C BC #### [facility] [address] [address] [address] Scooby Irvin LIPID PROFILEon 03-09-2021 CHOL-HDL RATIO NORM SEE BELOW Normal [facility] Comment on above: Result Comment: 3.3 - 4.4 LOW RISK 4.4 - 7.1 AVERAGE RISK 7.1 - 11.0 MODERATE RISK >11.0 HIGH RISK Performed By: #### L IPID, CMP, TSH #### [facility] [address] [address] [address] Scooby Irvin Cholesterol [Mass/Vol] 227 mg/dL Critically high <=200 [facility] Comment on above: Performed By: #### L IPID, CMP, TSH #### [facility] [address] [address] [address] Scooby Irvin Cholesterol in HDL [Mass/Vol] 65 mg/dL Normal [facility] Comment on above: Performed By: #### L IPID, CMP, TSH #### [facility] [address] [address] [address] Scooby Irvin Cholesterol in LDL [Mass/Vol] 142.6 mg/dL Normal [facility] Comment on above: Performed By: #### L IPID, CMP, TSH #### [facility] [address] [address] [address] Scooby Irvin Cholesterol.total/Rachel sterol in HDL [Mass ratio] 3.5 {ratio} Normal [facility] Comment on above: Performed By: #### L IPID, CMP, TSH #### [facility] [address] [address] [address] Scooby Irvin HDL NORMAL > or = 60 mg/dl - LOW CARDIOVASCULAR RISK <40 mg/dl - HIGH CARDIOVASCULAR RISK Normal [facility] Comment on above: Performed By: #### L IPID, CMP, TSH #### [facility] [address] [address] [address] Scooby Ivrin LDL CALC NORMAL SEE BELOW Normal [facility] Comment on above: Result Comment: <100 mg/dl OPTIMAL 100 - 129 mg/dl NEAR OR ABOVE OPTIMAL 130 - 159 mg/dl BORDERLINE HIGH 160 - 189 mg/dl HIGH >190 mg/dl VERY HIGH Performed By: #### L IPID, CMP, TSH #### [facility] [address] [address] [address] Scooby Irvin Triglyceride [Mass/Vol] 97 mg/dL Normal <=150 T [facility] Comment on above: Performed By: #### L IPID, CMP, TSH #### [facility] [address] [address] [address] Scooby Irvin VLDL CALC 19.4 mg/dL Normal [facility] Comment on above: Performed By: #### L IPID, CMP, TSH #### [facility] [address] [address] [address] Scooby Irvin PROF 14(COMP METB)on 022 Albumin [Mass/Vol] 4.0 g/dL Normal 3.5-5.0 [facility] Comment on above: Performed By: #### L IPID, CMP, TSH #### [facility] [address] [address] [address] Scooby Irvin Albumin/Globulin [Mass ratio] 1.1 {ratio} Normal [facility] Comment on above: Performed By: #### L IPID, CMP, TSH #### [facility] [address] [address] [address] Scooby Irvin ALP [Catalytic activity/Vol] 80 U/L Normal 38-126 [facility] Comment on above: Performed By: #### L IPID, CMP, TSH #### [facility] [address] [address] [address] Scooby Irvin ALT [Catalytic activity/Vol] 35 U/L Normal 9-52 [facility] Comment on above: Performed By: #### L IPID, CMP, TSH #### [facility] [address] [address] [address] Scooby Irvin Anion gap [Moles/Vol] 11.8 mmol/L Normal Th [facility] Comment on above: Performed By: #### L IPID, CMP, TSH #### [facility] [address] [address] [address] Scooby Irvin AST [Catalytic activity/Vol] 24 U/L Normal 14-36 [facility] Comment on above: Performed By: #### L IPID, CMP, TSH #### [facility] [address] [address] [address] Scooby Irvin Bilirubin [Mass/Vol] 0.5 mg/dL Normal 0.2-1.3 [facility] Comment on above: Performed By: #### L IPID, CMP, TSH #### [facility] [address] [address] [address] Scooby Irvin Calcium [Mass/Vol] 9.3 mg/dL Normal 8.4-10.2 [facility] Comment on above: Performed By: #### L IPID, CMP, TSH #### [facility] [address] [address] [address] Scooby Irvin Chloride [Moles/Vol] 105 mmol/L Normal 98-107 [facility] Comment on above: Performed By: #### L IPID, CMP, TSH #### [facility] [address] [address] [address] Scooby Irvin CO2 [Moles/Vol] 26.2 mmol/L Normal 22.0-30.[address] [facility] Comment on above: Performed By: #### L IPID, CMP, TSH #### [facility] [address] [address] [address] Scooby Irvin Creatinine [Mass/Vol] 0.83 mg/dL Normal 0.52-1.04 [facility] Comment on above: Performed By: #### L IPID, CMP, TSH #### [facility] [address] [address] [address] Scooby Irvin EGFR-AF [place] >60 Normal >=[address] [facility] Comment on above: Performed By: #### L IPID, CMP, TSH #### [facility] [address] [address] [address] Scooby Irvin EGFR-NON AF [place]DEAN >60 Normal >=60 [facility] Comment on above: Performed By: #### L IPID, CMP, TSH #### [facility] [address] [address] [address] Scooby Irvin Globulin (S) [Mass/Vol] 3.8 g/dL Normal [facility] Comment on above: Performed By: #### L IPID, CMP, TSH #### [facility] [address] [address] [address] Scooby Irvin Glucose [Mass/Vol] 112 mg/dL Critically high 74-106 [facility] Comment on above: Performed By: #### L IPID, CMP, TSH #### [facility] [address] [place] [address] Dr. Scooby Irvin Potassium [Moles/Vol] 4.0 mmol/L Normal 3.4-5.0 [facility] Comment on above: Performed By: #### L IPID, CMP, TSH #### [facility] [address] [place] [address] Dr. Scooby Irvin Protein [Mass/Vol] 7.8 g/dL Normal 6.1-8.2 [facility] Comment on above: Performed By: #### L IPID, CMP, TSH #### [facility] [address] [place] [address] Dr. Scooby Irvin Sodium [Moles/Vol] 139 mmol/L Normal 137-145 [facility] Comment on above: Performed By: #### L IPID, CMP, TSH #### [facility] [address] [place] [address] Dr. Scooby Irvin Urea nitrogen [Mass/Vol] 15.0 mg/dL Normal 7.0-17.0 [facility] Comment on above: Performed By: #### L IPID, CMP, TSH #### [facility] [address] [place], [place] [address] Dr. Scooby Irvin Urea nitrogen/Creatinine [Mass ratio] 18.1 mg/mg Normal [facility] Comment on above: Performed By: #### L IPID, CMP, TSH #### [facility] [address] [place], [place] [address] Dr. Scooby Irvin TSHon 03-09-2021 TSH 2.761 uIU/mL Normal 0.470-4.680 [facility] Comment on above: Performed By: #### L IPID, CMP, TSH #### [facility] [address] [address] [address] Scooby Irvin TSH RANGE SEE BELOW Normal [facility] Comment on above: Result Comment: <0.3 4 UIU/ml HYPERTHYROID 0.34-5.60 UIU/ml EUTHYROID >5.60 UIU/ml HYPOTHYROID Performed By: #### L IPID, CMP, TSH #### [facility] [address] [address] [address] Scooby Irvin Vital Signs Date Time Vital Sign Value Performing Clinician Facility 09-04-2022 09:00-0400 Body height 140.97 cm Danyell Morales Other [facility] Other 09-04-2022 09:00-0400 Body mass index (BMI) [Ratio] 36.74 kg/m2 Danyell Morales Other [facility] Other 09-04-2022 09:00-0400 Body weight 73.03 kg Danyell Morales Other [facility] Other 09-04-2022 09:00-0400 Diastolic blood pressure 78 mm[Hg] Danyell Morales Other [facility] Other 09-04-2022 09:00-0400 SaO2% (BldA) [Mass fraction] 97 % Danyell Morales Other [facility] Other 09-04-2022 09:00-0400 Systolic blood pressure 132 mm[Hg] Danyell Morales Other [facility] Other 03-01-2022 10:30-0500 Body height 140.97 cm Danyell Morales Other [facility] Other 03-01-2022 10:30-0500 Body mass index (BMI) [Ratio] 36.06 kg/m2 Danyell Morales Other [facility] Other 03-01-2022 10:30-0500 Body weight 71.67 kg Danyell Morales Other [facility] Other 03-01-2022 10:30-0500 Diastolic blood pressure 84 mm[Hg] Danyell Morales Other [facility] Other 03-01-2022 10:30-0500 SaO2% (BldA) [Mass fraction] 98 % Danyell Morales Other [facility] Other 03-01-2022 10:30-0500 Systolic blood pressure 132 mm[Hg] Danyell Morales Other [facility] Other 11-08-2021 10:17-0400 Diastolic blood pressure 74 mm[Hg] Farooq SALAM [facility] 11-08-2021 10:17-0400 Mean blood pressure 99 mm[Hg] Farooq SALAM [facility] 11-08-2021 10:17-0400 Systolic blood pressure 148 mm[Hg] Farooq SALAM [facility] 11-08-2021 10:15-0400 Blood Pressure Location Farooq SALAM [facility] 11-08-2021 10:15-0400 Diastolic blood pressure 95 mm[Hg] Farooq SALAM [facility] 11-08-2021 10:15-0400 Heart rate 78 /min Faroqo SALAM [facility] 11-08-2021 10:15-0400 Respiratory rate 16 /min Farooq SALAM [facility] 11-08-2021 10:15-0400 Systolic blood pressure 159 mm[Hg] Farooq SALAM [facility] 05-10-2021 11:11-0400 Diastolic blood pressure 90 mm[Hg] Farooq SALAM [facility] 05-10-2021 11:11-0400 Systolic blood pressure 180 mm[Hg] Farooq SALAM [facility] Encounters Encounter Date Encounter Type Care Provider Facility Start: 10-16-2023 End: 10-16-2023 ambulatory JASIEL B APLING Not Available Start: 09-10-2023 End: 09-10-2023 ambulatory DANIELLE LOPEZ Not Available Start: 08-26-2023 End: 08-26-2023 ambulatory JASIEL B APLING Not Available Start: 03-07-2023 End: 03-07-2023 ambulatory Danyell Morales Other [facility] Other Start: 03-07-2023 Office outpatient vi sit 15 minutes Danyell Morales [facility] Start: 09-20-2022 End: 09-20-2022 ambulatory Danyell Morales Other [facility] Other Start: 09-20-2022 Telephone encounter Danyell Morales [facility] Start: 09-04-2022 End: 09-04-2022 ambulatory Danyell Morales Other [facility] Other Start: 09-04-2022 Patient encounter procedure Danyell Morales [facility] Start: 04-19-[address] DANYELL MORALES Facil ity:[facility] Start: 03-01-2022 End: 03-01-2022 ambulatory Danyell Morales Other [facility] Other Start: 03-01-2022 Office outpatient vi sit 15 minutes Danyell Morales [facility] Start: 01-18-2022 End: 01-19-[address] DANYELL MORALES Facility:[facility] Start: 11-21-2021 End: 11-22-2021 ambulatory CAPRI ROA Facility:[facility] Start: 11-08-2021 End: 11-09-2021 ambulatory [facility] Facility:[facility] Start: 11-08-2021 End: 11-08-2021 Patient encounter procedure [facility] Start: 10-19-2021 End: 10-20-[address] DANYELL MORALES Facility:[facility] Start: 09-27-2021 End: 09-28-[address] DANYELL MORALES Facility:[facility] Start: 09-26-2021 End: 09-26-[address] DANYELL MORALES Facility:[facility] Start: 09-25-2021 Encounter for preprocedural laboratory examination DR RADHA IRAHETA [facility] Start: 09-22-2021 End: 09-23-[address] DANYELL MORALES Facility:[facility] Start: 09-22-2021 End: 09-23-2021 Encounter for preprocedural laboratory examination DR DANYELL MORALES Facility:[facility] Start: 09-11-[address] DANYELL MORALES Facil ity:[facility] Start: 09-06-2021 End: 09-07-2021 ambulatory ROBERTO MCNALLY Facility:[facility] Start: 08-30-2021 Adult health examination Malia Morales Other [facility] Other Start: 06-22-2021 End: 06-23-2021 ambulatory FAROOQ KUNALAM Facility:[facility] Start: 05-31-2021 End: 05-31-2021 ambulatory Luis Gutierrez Facility:[facility] Start: 05-26-2021 End: 05-26-2021 ambulatory Danyell Morales Facility:[facility] Start: 05-26-2021 End: 05-26-2021 Patient encounter procedure MD Cy Sears Work Phone: [facility] Start: 05-22-2021 End: 05-23-[address] DANYELL MORALES Facility:[facility] Start: 05-10-2021 ambulatory Farooqsabrina SYEDAM [facility] Start: 05-10-2021 End: 05-11-2021 ambulatory Farooq SALAM Facility:[facility] Start: 05-10-2021 End: 05-10-2021 Patient encounter procedure Farooq SALAM [facility] Start: 05-09-2021 ambulatory Farooqsabrina ROA [facility] Start: 05-04-2021 End: 05-04-2021 ambulatory Cy Sears Facility:[facility] Start: 05-04-2021 End: 05-04-2021 Patient encounter procedure MD Cy Sears Work Phone: [facility] [place] Start: 04-20-2021 End: 04-21-2021 ambulatory FAROOQ SALAM [...] now? N Result Comment: PERF ORMED BY: [facility] [place] [address] PATHOLOGIST PULLEY MORTISER OPERATOR TRICIA OSHEA M.D. Start: 02-16-2020 Colonoscopy w/biopsy single/multiple TRAFI Colonoscopy Farooq Epigami Screening for malign ant neoplasm of breast Danyell Morales Other Immunizations Immunization Date Immunization Notes Care Provider Fa cili 12-09-2020 COVID-19 mRNA-1273 (Moderna) MD Cy Sears Work Phone: [facility] 11-15-2020 influenza virus vaccine, split virus (incl. purified surface antigen) Danyell Morales Other [facility] Other 11-11-2020 influenza virus vaccine, unspecified formulation Farooq Epigami [facility] 04-26-2020 COVID-19 mRNA-1273 (Moderna) MD Cy Sears Work Phone: [facility] 03-23-2020 COVID-19 mRNA-1273 (Moderna) MD Cy Sears Work Phone: [facility] 11-20-2019 influenza virus vaccine, split virus (incl. purified surface antigen) Danyell Morales Other [facility] Other 10-24-2016 influenza virus vaccine, split virus (incl. purified surface antigen) Danyell Morales Other [facility] Other 10-24-2016 pneumococcal conjuga te vaccine, 13 valent Danyell Morales Other [facility] Other 08-31-2014 tetanus toxoid, reduced diphtheria toxoid, and acellular pertussis vaccine, adsorbed Danyell Morales Other [facility] Other 11-30-2013 pneumococcal polysaccharide vaccine, 23 valent Danyell Morales Other [facility] Other NEGATED: Highlighted row has not occurred!11-08-2021 influenza virus vaccine, unspecified formulation TRAFI [facility] Payers Date Payer Category Payer Self-pay [id number] 2021 Private Health Insurance CLI [id number] 1961 Medicare [id number] 1961 Unknown [id number] 1948 Unknown [id number] 1948 Unknown [id number] 1948 Unknown [id number] 1948 Unknown [id number] 1948 Unknown [id number] 2.16.84 0.1.085840.3.579.2.593 1950 Unknown [id number] 2.16.84 0.1.141522.3.579.2.593 1948 Unknown [id number] 2.16.84 0.1.765214.3.579.2.593 1948 Unknown [id number] 2.16.84 0.1.914276.3.579.2.593 1948 Unknown [id number] 2.16.84 0.1.362386.3.579.2.593 1948 Unknown [id number] 2.16.84 0.1.010997.3.579.2.593 1948 Unknown [id number] 2.16.84 0.1.391883.3.579.2.593 1948 Unknown [id number] 2.16.84 0.1.343994.3.579.2.593 1948 Unknown [id number] 2.16.84 0.1.485341.3.579.2.593 1948 Unknown [id number] 2.16.84 0.1.523739.3.579.2.593 1948 Unknown [id number] 2.16.84 0.1.905873.3.579.2.593 1948 Unknown [id number] 2.16.84 0.1.266338.3.579.2.593 1948 Unknown [id number] 2.16.84 0.1.243367.3.579.2.593 1948 Unknown [id number] 2.16.84 0.1.611240.3.579.2.593 1948 Unknown [id number] 2.16.84 0.1.273247.3.579.2.593 1948 Unknown [id number] 2.16.84 0.1.697489.3.579.2.593 1948 Unknown [id number] 2.16.84 0.1.703588.3.579.2.1259 1948 Unknown [id number] 2.16.84 0.1.515696.3.579.2.1259 1948 Unknown [id number] 2.16.84 0.1.174321.3.579.2.1259 1948 Unknown [id number] 2.16.84 0.1.352064.3.579.2.1259 Medicare Self Pay [id number] Unknown [id number] 2.16.8 40.1.467554.3.579.2.531 Unknown [id number] 2.16.8 40.1.824604.3.579.2.531 Unknown [id number] 2.16.8 40.1.994656.3.579.2.531 Social History Date Type Detail Facility Tobacco smoking stat [facility] Unknown if ever smoked [facility] Work Phone: Start: 1950 Sex Assigned At Female F [facility] Start: 05-10-2021 End: 11-08-2021 Tobacco smoking status Heavy tobacco smoker (finding) [facility] Sex Assigned At Female [facility] Start: 05-26-2021 Tobacco smoking stat [facility] Smoker (finding) [facility] Functional Status Date Assessment Result Facility 11-08-2021 Functional Status N/A [facility] Clinical Notes 01-24-2021 to [...] continue to monitor through routine blood work [facility] 08-10-2023 Evaluation note* Encounter Date Diagnosis Assessment Notes Treatment Notes Treatment Clinical Notes Sep, Right foot pain (ICD-10 - M79.671) [facility] 07-25-2023 Evaluation note* Encounter Date Diagnosis [...] - E03.9) Chronic problem due for labs. [facility] 01-19-2023 Evaluation note* Encounter Date Diagnosis [...] - E78.5) Due for labs in summer. [facility] [id number] NoteCONSULTATION PROCEDURE DATE: 01/18/2022 PREOPERATIVE DIAGNOSIS: Left [...] will be followed up in the office.[facility] [id number] NoteCONSULTATION CONSULTATION DATE: 01/18/2022 HISTORY OF PRESENT [...] in three months' time, unless otherwise indicated.[facility] [id number] Evaluation + Plan note Diagnostic Tests Pending * CBC w/ Auto Diff 11/08/21 * Comprehensive Metabolic Panel 11/08/21 [facility] [id number] NoteCONSULTATION PROCEDURE DATE: 11/16/2021 PRE AND POSTOPERATIVE [...] will be followed up in the office.[facility] 10-19-2021 NoteCONSULTATION CONSULTATION DATE: 10/19/2021 This [...] in three months' time unless otherwise indicated.[facility] [id number] NoteCONSULTATION CONSULTATION DATE: 09/06/2021 HISTORY OF PRESENT [...] 8/10. She has been following up with [facility] and had a benign fibroid tumor [...] procedure, and patient agrees to move forward.[facility] [id number] NoteCONSULTATION PAIN MANAGEMENT CONSULTATION HISTORY: This is [...] of care and will call when needed. [facility] Signed and Approved by: ROBERTO MCNALLY . 04/27/2021 12:41:00[facility]12-14-2021 Hospital Discharge instructions Follow Up Care 01/24/2021 10:04:31 With:Capri ROA MD, [facility], [facility] Address: [facility] [address] [place] [address] [place] [address]- When:6 months [facility] Evaluation + Plan note Future Appointments Appointment Date:11/08/2021 10:15:00 AM Scheduled Provider:Capri ROA MD Location:[facility] Appointment Type:[facility] Follow Up Future Scheduled Tests Laboratory* CBC w/ Indices 07/25/20 * Comprehensive Metabolic Panel 07/25/20 [facility] Evaluation noteNo assessment information available [facility] Work Phone: His[facility]db[facility] general Narrative - Reported* Type Description Date Medical History GERD Medical History Hypothyroid Medical History Depression Surgical History Appendectomy Surgical History Tubal Ligation Surgical History Right carpal tunnel Surgical History Right finger Surgical History 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 Hospitalization History See past surgical hx [facility] Hospital course Narrative No data available for this section [facility] Hospital Discharge instructions No data available for this section [facility] Progress note No data available for this section [facility] Chief Complaint and Reason for Visit Chief Complaint Esophageal Mass Chief Complaint Esophageal Mass Right Substernal Thyroid Goiter Advance Directives No Advanced Directives Records Found Advance Directive Response Recorded Date/ Time Advance Directives No May 03 9:14am Summary Purpose Family History No Family History Records Found Relationship Condition Age at Onset Recorded Date/T mcihelle father Diabetes mellitus Unknown Cerebrovascular accident (CVA) Unknown Reason for Referral Reason *FU 09/27 R foot p ain. Had Xray Diagnosis 1 Right foot pain (M79 .671) Referral Organization [facility] Referring Provider First Name Danyell Referring Provider Last Name Robin Referring Provider Specialty [facility] Referred Organization [facility] Referred Provider Seymour Johnson Referred Address [address] [place] [phone] Referred Provider Specialty Podiatry - S urgical [...] section and content) DATE CREATED AUTHOR 05/23/2021 [facility] dical Specialist DATE CREATED AUTHOR AUTHOR'S ORGANIZ ATION 11/14/2021 [facility] DATE CREATED AUTHOR AUTHOR'S ORGANIZ ATION 01/23/2022 [facility] DATE CREATED AUTHOR AUTHOR'S ORGANIZ ATION 03/17/2022 [facility] DATE CREATED AUTHOR AUTHOR'S ORGANIZ ATION 10/17/2023 [facility] dical Specialists EPIC REASON FOR VISIT [...] BE BASED ON THE PRIMARY CLINICAL RECORDS. [employer] provides no warranty or guarantee of the accuracy or completeness of information in this document.
[2023-10-29 09:22] VITALS: BP 152/82; PULSE 80; TEMP 36.6; O2SAT 96
[2023-10-29 09:57] VITALS: BP 148/65; PULSE 77; O2SAT 91
[2023-10-29] MEDS: BUPIVACAINE HCL 0.25% PF 25 MG/10 ML VIAL INJ (09:57)
[2023-10-29] MEDS: METHYLPREDNISOLONE ACETATE 80 MG/ML VIAL INJ (09:58)
[2023-10-29] MEDS: 0.9 % SODIUM CHLORIDE 10 ML SYRINGE - SALINE FLUSH INJ (09:58)
[2023-10-29] MEDS: LIDOCAINE HCL 2% 400 MG/20 ML MDV 5 ML INJ (09:59)
[2023-10-29] MEDS: IOHEXOL 240 MG/ML - 10 ML VIAL INJ (09:59)
[2023-10-29 10:00] VITALS: BP 158/72; PULSE 78; O2SAT 90
--- NOTE | 2023-10-29 10:46 | P.ON_ITS ---
Date of procedure: 10/29/23 Pre-op diagnosis: Lumbar radiculopathy Post-op diagnosis: same as pre-op Procedure: Lumbar 5/sacral 1 Epidural Steroid Injection Under fluoroscopic guidance Immediate complications none Solution used for injection: Marcaine 0.25% 2mL, 2cc Normal saline, Depo-Medrol 80mg Omnipaque 3 mL Anesthesia local 2% lidocaine up to 4ml Timeout process compliant After informed consent obtained. Patient brought to the procedure room placed in the prone position. Skin overlying the area was prepped and draped in a sterile fashion using betadine. 25 gauge needle used to raise a skin wheel with local anesthetic over the target area identified under fluoroscopy. A 17 gauge Touhy needle Was inserted over the anesthetized area and directed towards the inter- space under fluoroscopic guidance. Epidural space was identified with loss of resistance technique to air. Needle Tip placement confirmed with injection of contrast solution in AP and Lateral views. Steroid solution was then injected. Anesthesia: Local Surgeon: Selene Musa Condition: stable
== END 2023-10-29 10:07 | disposition home or self-care (01) ==
LOC: SURGOUT 08:59
PROVIDERS: PCP Family Medicine; Visit Provider Anesthesiology Pain Medicine
DX: M54.16 Radiculopathy, lumbar region (principal)
CPT/HCPCS: 62323; J0665; J1010; Q9966

== ENCOUNTER 2023-11-13 09:42 | Outpatient (OUT) | payer MEDICARE, OTHER, SELFPAY ==
--- OUTSIDE RECORDS SUMMARY | 2023-11-13 10:02 | XMS_ITS | CCD ---
Author Organization [facility] Care Team Providers Care Histology Technician Name Role Phone MD Cy Sears Attending Provider MD Danyell Morales Primary Care Provider [phone] DANYELL MORALES Primary Care Physician DO Luis [...] Unavailable MORALES, DR DANYELL Solis Attending Unavailable [place], DR LONNY Wiggins Consulting Unavailable MORALES, DR [...] Facility (4 sources) varenicline Drug Allergy Unknown Embrane Other Medications Current Medications Medication Drug Class(es) [...] PO Daily May 26, 2021 2:53pm NuLYTELY [place] oral powder for reconstitution (1 source) Start: 01-28-2020 take 1 dose by mouth once NuLYTELY [place] oral powder for reconstitution See Instructions, 1 [...] Once a day Active polyethylene glycol 3350 276418 mg / potassium chloride 1480 mg / sodium bicarbonate 5720 mg / sodium chloride 55959 mg powder for oral solution (1 source) Osmotic Laxative Start: 01-28-2020 take 1 dose by mouth once NuLYTELY [place] oral powder for reconstitution See Instructions, 1 [...] TID, # 180 tab(s), Refills(s) 11, Pharmacy: [facility]/pharmacy #[id number], 150, cm, 05/10/21 11:13:00 EDT, [...] # 0.1 103/ul Normal 0.0-0.1 [facility] Comment on above: Performed By: #### C BC #### [facility] [address] [address] [address] Scooby Irvin Basophils/100 WBC (Bld) 0.5 % Normal 0.2-2.0 [facility] Comment on above: Performed By: #### C BC #### [facility] [address] [address] [address] Scooby Irvin EO # 0.0 103/ul Normal 0.0-0.7 [facility] Comment on above: Performed By: #### C BC #### [facility] [address] [place] [address] Dr. Scooby Irvin Eosinophils/100 WBC (Bld) 0.1 % Critically low 0.9-7.0 [facility] Comment on above: Performed By: #### C BC #### [facility] [address] [place] [address] Dr. Scooby Irvin Erythrocyte distribution width (RBC) [Ratio] 15.1 % Critically high 11.0-15.0 [facility] Comment on above: Performed By: #### C BC #### [facility] [address] [place] [address] Dr. Scooby Irvin Hematocrit (Bld) [Volume fraction] 39.4 % Normal 36.0-48.0 [facility] Comment on above: Performed By: #### C BC #### [facility] [address] [place] [address] Dr. Scooby Irvin Hemoglobin (Bld) [Mass/Vol] 12.6 g/dL Normal 12.0-16.0 [facility] Comment on above: Performed By: #### C BC #### [facility] [address] [place] [address] Dr. Scooby Irvin IG # 0.05 10e3/ul Critically high 0.00-0.03 [facility] Comment on above: Performed By: #### C BC #### [facility] [address] [place] [address] Dr. Scooby Irvin IG % 0.5 % Normal 0.0-0.5 [facility] Comment on above: Performed By: #### C BC #### [facility] [address] [place] [address] Dr. Scooby Irvin LYMPH # 1.3 103/ul Normal 1.2-3.8 [facility] Comment on above: Performed By: #### C BC #### [facility] [address] [place] [address] Dr. Scooby Irvin Lymphocytes/100 WBC (Bld) 13.2 % Critically low 20.5-60.0 [facility] Comment on above: Performed By: #### C BC #### [facility] [address] [place] [address] Dr. Scooby Irvin MANUAL DIFF REQ NO Normal [facility] Comment on above: Performed By: #### C BC #### [facility] [address] [place] [address] Dr. Scooby Irvin MCH (RBC) [Entitic mass] 30.0 pg Normal 26.7-34.0 [facility] Comment on above: Performed By: #### C BC #### [facility] [address] [place] [address] Dr. Scooby Irvin MCHC (RBC) [Mass/Vol] 32.0 g/dL Normal 29.9-35.2 [facility] Comment on above: Performed By: #### C BC #### [facility] [address] [place] [address] Dr. Scooby Irvin MCV (RBC) [Entitic vol] 93.8 fL Normal 81.0-99.0 [facility] Comment on above: Performed By: #### C BC #### [facility] [address] [place] [address] Dr. Scooby Irvin MONO # 0.7 103/ul Normal 0.3-0.8 [facility] Comment on above: Performed By: #### C BC #### [facility] [address] [place] [address] Dr. Scooby Irvin Monocytes/100 WBC (Bld) 7.2 % Normal 1.7-12.0 [facility] Comment on above: Performed By: #### C BC #### [facility] [address] [place] [address] Dr. Scooby Irvin NEUT # 7.5 103/ul Critically high 1.4-6.5 [facility] Comment on above: Performed By: #### C BC #### [facility] [address] [place] [address] Dr. Scooby Irvin Neutrophils/100 WBC (Bld) 78.5 % Critically high 43.0-75.0 [facility] Comment on above: Performed By: #### C BC #### [facility] [address] [address] [address] Scooby Irvin Platelet mean volume (Bld) [Entitic vol] 9.9 fL Normal 9.5-13.5 [facility] Comment on above: Performed By: #### C BC #### [facility] [address] [place] [address] Dr. Scooby Irvin PLT 230 103/ul Normal 150-450 [facility] Comment on above: Performed By: #### C BC #### [facility] [address] [place] [address] Dr. Scooby Irvin RBC 4.20 106/ul Normal 4.20-5.40 [facility] Comment on above: Performed By: #### C BC #### [facility] [address] [place] [address] Dr. Scooby Irvin WBC 9.5 103/ul Normal 4.0-11.0 [facility] Comment on above: Performed By: #### C BC #### [facility] [address] [place] [address] Dr. Scooby Irvin PROF 14(COMP METB)on 022 Albumin [Mass/Vol] 3.9 g/dL Normal 3.4-5.0 [facility] Comment on above: Performed By: #### C BC #### [facility] [address] [place] [address] Dr. Scooby Irvin Albumin/Globulin [Mass ratio] 1.0 {ratio} Normal [facility] Comment on above: Performed By: #### C BC #### [facility] [address] [place] [address] Dr. Scooby Irvin ALP [Catalytic activity/Vol] 87 U/L Normal 46-116 [facility] Comment on above: Performed By: #### C BC #### [facility] [address] [place] [address] Dr. Scooby Irvin ALT [Catalytic activity/Vol] 29 U/L Normal 14-59 [facility] Comment on above: Performed By: #### C BC #### [facility] [address] [address] [address] Scooby Irvin Anion gap [Moles/Vol] 14.1 mmol/L Normal [facility] Comment on above: Performed By: #### C BC #### [facility] [address] [address] [address] Scooby Irvin AST [Catalytic activity/Vol] 38 U/L Critically high 15-37 [facility] Comment on above: Performed By: #### C BC #### [facility] [address] [place] [address] Dr. Scooby Irvin Bilirubin [Mass/Vol] 0.5 mg/dL Normal 0.2-1.0 [facility] Comment on above: Performed By: #### C BC #### [facility] [address] [place] [address] Dr. Scooby Irvin Calcium [Mass/Vol] 9.2 mg/dL Normal 8.5-10.1 [facility] Comment on above: Performed By: #### C BC #### [facility] [address] [place] [address] Dr. Scooby Irvin Chloride [Moles/Vol] 102 mmol/L Normal 98-107 [facility] Comment on above: Performed By: #### C BC #### [facility] [address] [place] [address] Dr. Scooby Irvin CO2 [Moles/Vol] 25.7 mmol/L Normal 21.0-32.0 [facility] Comment on above: Performed By: #### C BC #### [facility] [address] [place] [address] Dr. Scooby Irvin Creatinine [Mass/Vol] 0.76 mg/dL Normal 0.55-1.02 [facility] Comment on above: Performed By: #### C BC #### [facility] [address] [place] [address] Dr. Scooby Irvin EGFR-AF LITHUANIAN >60 Normal >=60 [facility] Comment on above: Performed By: #### C BC #### [facility] [address] [place] [address] Dr. Scooby Irvin EGFR-NON AF LITHUANIAN >60 Normal >=60 [facility] Comment on above: Performed By: #### C BC #### [facility] [address] [place] [address] Dr. Scooby Irvin Globulin (S) [Mass/Vol] 3.8 g/dL Normal T [facility] Comment on above: Performed By: #### C BC #### [facility] [address] [place] [address] Dr. Scooby Irvin Glucose [Mass/Vol] 104 mg/dL Normal 74-106 [facility] Comment on above: Performed By: #### C BC #### [facility] [address] [place] [address] Dr. Scooby Irvin Potassium [Moles/Vol] 4.8 mmol/L Normal 3.5-5.1 [facility] Comment on above: Performed By: #### C BC #### [facility] [address] [place] [address] Dr. Scooby Irvin Protein [Mass/Vol] 7.7 g/dL Normal 6.4-8.2 [facility] Comment on above: Performed By: #### C BC #### [facility] [address] [place] [address] Dr. Scooby Irvin Sodium [Moles/Vol] 137 mmol/L Normal 136-145 [facility] Comment on above: Performed By: #### C BC #### [facility] [address] [place] [address] Dr. Scooby Irvin Urea nitrogen [Mass/Vol] 9.0 mg/dL Normal 7.0-18.0 [facility] Comment on above: Performed By: #### C BC #### [facility] [address] [place] [address] Dr. Scooby Irvin Urea nitrogen/Creatinine [Mass ratio] 11.8 mg/mg Normal [facility] Comment on above: Performed By: #### C BC #### [facility] [address] [place] [address] Dr. Scooby Irvin Gastroenterology Office/Clin ic Noteon [...] done for her thyroid and cholesterol at [place]. Alexandra denies having any other GI concerns [...] Jeronimo eXperience to record this visit. JASS market development specialist and provider reviewed before signing. JASS: [...] 1 tab(s), Oral, TID levothyroxine, Daily NuLYTELY [place] oral powder for reconstitution, See Instructions omeprazole, [...] virus vaccine, inactivated 11/2020 Recorded Normal [facility] Comment on above: Result Comment: Elec [...] omeprazole polyethylene glycol 3350 with electrolytes (NuLYTELY [place] oral powder for reconstitution) simvastatin sulfasalazine (sulfasalazine [...] Unchanged polyethylene glycol 3350 with electrolytes (NuLYTELY [place] oral powder for reconstitution) See instructions PER [...] treatment for. Chronic pancolonic ulcerative colitis Normal [facility] LIPID PROFILEon 09-27-2021 CHOL-HDL RATIO NORM SEE BELOW Normal [facility] Comment on above: Result Comment: 3.3 - 4.4 LOW RISK 4.4 - 7.1 AVERAGE RISK 7.1 - 11.0 MODERATE RISK >11.0 HIGH RISK Performed By: #### C MP, LIPID #### [facility] [address] [address] [address] Scooby Irvin Cholesterol [Mass/Vol] 235 mg/dL Critically high <=200 [facility] Comment on above: Performed By: #### C MP, LIPID #### [facility] [address] [address] [address] Scooby Irvin Cholesterol in HDL [Mass/Vol] 65 mg/dL Critically high 40-60 [facility] Comment on above: Performed By: #### C MP, LIPID #### [facility] [address] [address] [address] Scooby Irvin Cholesterol in LDL [Mass/Vol] 156.8 mg/dL Normal [facility] Comment on above: Performed By: #### C MP, LIPID #### [facility] [address] [address] [address] Scooby Irvin Cholesterol.total/Rachel sterol in HDL [Mass ratio] 3.6 {ratio} Normal [facility] Comment on above: Performed By: #### C MP, LIPID #### [facility] [address] [address] [address] Scooby Irvin HDL NORMAL > or = 60 mg/dl - LOW CARDIOVASCULAR RISK <40 mg/dl - HIGH CARDIOVASCULAR RISK Normal [facility] Comment on above: Performed By: #### C MP, LIPID #### [facility] [address] [address] [address] Scooby Irvin LDL CALC NORMAL SEE BELOW Normal [facility] Comment on above: Result Comment: <100 mg/dl OPTIMAL 100 - 129 mg/dl NEAR OR ABOVE OPTIMAL 130 - 159 mg/dl BORDERLINE HIGH 160 - 189 mg/dl HIGH >190 mg/dl VERY HIGH Performed By: #### C MP, LIPID #### [facility] [address] [place] [address] Dr. Scooby Irvin Triglyceride [Mass/Vol] 66 mg/dL Normal <=150 T [facility] Comment on above: Performed By: #### C MP, LIPID #### [facility] [address] [place] [address] Dr. Scooby Irvin VLDL CALC 13.2 mg/dL Normal [facility] Comment on above: Performed By: #### C MP, LIPID #### [facility] [address] [place] [address] Dr. Scooby Irvin PROF 14(COMP METB)on 022 Albumin [Mass/Vol] 3.9 g/dL Normal 3.4-5.0 [facility] Comment on above: Performed By: #### C MP, LIPID #### [facility] [address] [place] [address] Dr. Scooby Irvin Albumin/Globulin [Mass ratio] 1.1 {ratio} Normal [facility] Comment on above: Performed By: #### C MP, LIPID #### [facility] [address] [place] [address] Dr. Scooby Irvin ALP [Catalytic activity/Vol] 87 U/L Normal 46-116 [facility] Comment on above: Performed By: #### C MP, LIPID #### [facility] [address] [address] [address] Scooby Irvin ALT [Catalytic activity/Vol] 27 U/L Normal 14-59 [facility] Comment on above: Performed By: #### C MP, LIPID #### [facility] [address] [place] [address] Dr. Scooby Irvin Anion gap [Moles/Vol] 16.9 mmol/L Normal [facility] Comment on above: Performed By: #### C MP, LIPID #### [facility] [address] [address] [address] Scooby Irvin AST [Catalytic activity/Vol] 21 U/L Normal 15-37 [facility] Comment on above: Performed By: #### C MP, LIPID #### [facility] [address] [place] [address] Dr. Scooby Irvin Bilirubin [Mass/Vol] 0.4 mg/dL Normal 0.2-1.0 [facility] Comment on above: Performed By: #### C MP, LIPID #### [facility] [address] [place] [address] Dr. Scooby Irvin Calcium [Mass/Vol] 8.7 mg/dL Normal 8.5-10.1 [facility] Comment on above: Performed By: #### C MP, LIPID #### [facility] [address] [place] [address] Dr. Scooby Irvin Chloride [Moles/Vol] 102 mmol/L Normal 98-107 [facility] Comment on above: Performed By: #### C MP, LIPID #### [facility] [address] [place] [address] Dr. Scooby Irvin CO2 [Moles/Vol] 22.0 mmol/L Normal 21.0-32.[address] [facility] Comment on above: Performed By: #### C MP, LIPID #### [facility] [address] [place] [address] Dr. Scooby Irvin Creatinine [Mass/Vol] 0.73 mg/dL Normal 0.55-1.02 [facility] Comment on above: Performed By: #### C MP, LIPID #### [facility] [address] [address] [address] Scooby Irvin EGFR-AF LITHUANIAN >60 Normal >=[address] [facility] Comment on above: Performed By: #### C MP, LIPID #### [facility] [address] [address] [address] Scooby Irvin EGFR-NON AF LITHUANIAN >60 Normal >=60 [facility] Comment on above: Performed By: #### C MP, LIPID #### [facility] [address] [address] [address] cSooby Irvin Globulin (S) [Mass/Vol] 3.7 g/dL Normal T [facility] Comment on above: Performed By: #### C MP, LIPID #### [facility] [address] [place] [address] Dr. Scooby Irvin Glucose [Mass/Vol] 105 mg/dL Normal 74-106 [facility] Comment on above: Performed By: #### C MP, LIPID #### [facility] [address] [place] [address] Dr. Scooby Irvin Potassium [Moles/Vol] 3.9 mmol/L Normal 3.5-5.1 [facility] Comment on above: Performed By: #### C MP, LIPID #### [facility] [address] [place] [address] Dr. Scooby Irvin Protein [Mass/Vol] 7.6 g/dL Normal 6.4-8.2 [facility] Comment on above: Performed By: #### C MP, LIPID #### [facility] [address] [place] [address] Dr. Scooby Irvin Sodium [Moles/Vol] 137 mmol/L Normal 136-145 [facility] Comment on above: Performed By: #### C MP, LIPID #### [facility] [address] [place] [address] Dr. Scooby Irvin Urea nitrogen [Mass/Vol] 11.0 mg/dL Normal 7.0-18.0 [facility] Comment on above: Performed By: #### C MP, LIPID #### [facility] [address] [place] [address] Dr. Scooby Irvin Urea nitrogen/Creatinine [Mass ratio] 15.1 mg/mg Normal [facility] Comment on above: Performed By: #### C MP, LIPID #### [facility] [address] [place] [address] Dr. Scooby Irvin TSHon 09-27-2021 TSH 2.198 uIU/mL Normal 0.358-3.740 [facility] Comment on above: Performed By: #### T SH #### [facility] [address] [address] [address] Scooby Irvin Covid-19 PCR ([facility])on 09-11 SARS-CoV-2 (COVID-19) RNA ADELITA+probe Ql (Unsp spec) Not detected Normal NOT DETECTED [facility] Comment on above: Result Comment: This test is not yet approved or cleared by the [place] FDA. When there are no FDA-approved or cleared tests available, and other criteria are met, FDA can make tests available under an emergency access mechanism called an Emergency Use Authorization (EUA). The EUA for this test is supported by the Strategy Manager of Health and Human Service's (HHS's) declaration [...] SARS-CoV-2. Performed By: #### C BC #### [facility] [address] [address] [address] Scooby Irvin TSHon 06-22-2021 TSH 2.326 uIU/mL Normal 0.358-3.740 [facility] Comment on above: Performed By: #### C BC #### [facility] [address] [address] [address] Scooby Irvin TSH RANGE SEE BELOW Normal [facility] Comment on above: Result Comment: <0.3 4 UIU/ml HYPERTHYROID 0.34-5.60 UIU/ml EUTHYROID >5.60 UIU/ml HYPOTHYROID Performed By: #### C BC #### [facility] [address] [place], [place] [address] Dr. Scooby Irvin ABO/Rh Retypeon 05-31-2021 ABO/RH Recheck Result Positive Normal [facility] Comment on above: Result Comment: PERF ORMED BY: [facility] [address] [place] [address] PATHOLOGIST [employer] MANAGER TRICIA Yin 05-31-2021 L Specimen: [id number] Received: 05/31/21 Status: LIDIA Pineda Num: [id number] Spec Type: Surgical Subm Dr: Luis Gutierrez DO Tissues: A Parathyroid Gland (R/O PARATHYROID) B THYROID - Lobe (R SUBSTERNAL THYROID) Procedures: HE Stain/8, Gross/Micro L5, Gross/Micro L4 Patient Age/Sex Location Account Attending Physician Alexandra Cervantes 71/F [place] [id number] Luis Gutierrez DO SPEC NUM: [id number] RECD: 05/31/21 STATUS: LIDIA PINEDA NUM: [id number] KATHY: 05/31/21- SUBM DR: Luis Gutierrez DO ENTERED: 05/31/21-[address] [facility] [address]: LANCE TYPE: Surgical DEPT: S [...] Specimen: Received: 05/31/21 Status: LIDIA Pineda Num: [id number] Spec Type: Surgical Subm Dr: Luis Gutierrez DO Tissues: A Parathyroid Gland (R/O PARATHYROID) B THYROID - Lobe (R SUBSTERNAL THYROID) Procedures: HE Stain/8, Gross/Micro L5, Gross/Micro L4 Patient: Alexandra Cervantes [id number] (Continued) Specimen: Received: 05/31/21 (Continued) Gross Description (Continued) Signed (signatur e on file) Tricia Oshea MD 06/01/211912 Specimen: Received: 05/31/21 Status: LIDIA Pineda Num: [id number] Spec Type: Surgical Subm Dr: Luis Gutierrez DO Tissues: A Parathyroid Gland (R/O PARATHYROID) B THYROID - Lobe (R SUBSTERNAL THYROID) Procedures: HE Stain/8, Gross/Micro L5, Gross/Micro L4 Patient: Alexandra Cervantes [id number] (Continued) Specimen: Received: 05/31/21 (Continued) Gross Description [...] microscopic findings support the above pathologic diagnosis. [id number], [id number], [id number] Specimen: [id number] Received: (more content not included)... Normal [facility] LeukoReduced RBCon 2 LeukoReduced RBC READY Normal [facility] Type and Screenon 05-31-2021 ABO and Rh group Nom (Bld) Blood group O Rh(D) positive [facility] Comment on above: Order Comment: Trans fuse now? N Result Comment: PERF ORMED BY: [facility] [address] [place] [address] PATHOLOGIST [employer] MANAGER TRICIA OSHEA M.D. Basic Metabolic Panelon 05-12 Calcium [Mass/Vol] 9.5 mg/dL Normal 8.2-10.2 [facility] Comment on above: Result Comment: PERF ORMED BY: [facility] [address] [place] [address] PATHOLOGIST [employer] MANAGER TRICIA OSHEA M.D. Performed By: #### C KELSEY, BMP #### [facility] [address] [place] [address] [facility] Chloride [Moles/Vol] 105 mmol/L Normal 95-114 [facility] Comment on above: Performed By: #### C BC, BMP #### [facility] [address] CO2 [Moles/Vol] 23.0 mmol/L Normal 22.0-30.0 [facility] Comment on above: Performed By: #### C BC, BMP #### [facility] [address] Creatinine [Mass/Vol] 0.66 mg/dL Normal 0.44-1.03 [facility] Comment on above: Performed By: #### C BC, BMP #### [facility] [address] Estimated GFR ( Traci > 60 Normal [facility] Comment on above: Result Comment: GFR estimated reference range: According to KDOQI guidelines, <60 ml/min/1.73m2 is sufficient to diagnose a patient with chronic kidney disease. Performed By: #### C BC, BMP #### [facility] [address] Estimated GFR (Non- Am > 60 Normal [facility] Comment on above: Performed By: #### C BC, BMP #### [facility] [address] Glucose [Mass/Vol] 89 mg/dL Normal 70-100 [facility] Comment on above: Result Comment: [place] Glucose Reference Range is dependent on time and content of last meal. Glucose of more than 200 mg/dL in a nonstressed, ambulatory subject supports the diagnosis of Diabetes Mellitus. ADA recommended reference range Performed By: #### C BC, BMP #### [facility] [address] [place] [address] [place] Potassium [Moles/Vol] 4.0 mmol/L Normal 3.5-5.1 [facility] Comment on above: Performed By: #### C BC, BMP #### [facility] [address] Sodium [Moles/Vol] 137 mmol/L Normal 136-146 [facility] Comment on above: Performed By: #### C BC, BMP #### [facility] [address] Urea nitrogen [Mass/Vol] 10 mg/dL Normal 9-23 [facility] Comment on above: Performed By: #### C BC, BMP #### [facility] [address] Basophils Auto (Bld) [#/Vol] Ordered By: Luis Gutierrez on 05-26-2021 Basophils (Bld) [#/Vol] 0.1 10*3/uL 0.0-0.2 [facility] Basophils/100 WBC Auto (Bld) Ordered By: Luis Gutierrez on 05-26-2021 Basophils/100 WBC (Bld) 0.9 % [facility] Blood hemoglobin measurement (mass/volume)Ordered By: Luis Gutierrez on 05-26-2021 Hemoglobin (Bld) [Mass/Vol] 12.4 g/dL 11.8-15.4 [facility] Blood leukocytes automated c ount (number/volume)Ordered By: Luis Gutierrez on 05-26-2021 WBC (Bld) [#/Vol] 8.8 10*3/uL 4.5-11.0 [facility] COVID-19 FRMCon 05-26-2021 SARS-CoV-2 (COVID-19) RNA ADELITA+probe Ql (Unsp spec) Negative Normal Negative [facility] Comment on above: Order Comment: Healt hcare Worker?: N Result Comment: Testing for SARS-CoV-2 by RT-PCR This test was developed and its performance characteristics determined by [employer] ([employer]) and validated at the [facility]. This test has not been FDA [...] is terminated or revoked sooner. PERFORMED BY: [place] [address] PATHOLOGIST [employer] MANAGER TRICIA OSHEA M.D. Performed By: #### C OVID 19 [place] [facility] [place] #### [facility] [address] COVID-19 Positive/NegativeOr dered By: Luis Gutierrez on 05-26-2021 SARS-CoV-2 (COVID-19) N gene ADELITA+probe Ql (Resp) Negative Negative [facility] Comment on above: Testing for SARS-CoV -2 by RT-PCRThis test was developed and its performance characteristics determined by [employer] ([employer]) and validated at the [facility]. This test has not been FDA [...] 05-26-2021 Calcium [Mass/Vol] 9.4 mg/dL Normal 8.2-10.2 [facility] Comment on above: Performed By: #### C A, TSH3, PTH #### [facility] [address] [place] [address] Complete Blood Count Auto Di ffon 05-26-2021 Basophils (Bld) [#/Vol] 0.1 10*3/uL Normal 0.0-0.2 [facility] Comment on above: Result Comment: PERF ORMED BY: [place] [address] PATHOLOGIST [employer] MANAGER TRICIA OSHEA M.D. Performed By: #### C BC, BMP #### [address] Basophils/100 WBC (Bld) 0.9 % Normal . [facility] Comment on above: Performed By: #### C BC, BMP #### [address] Eosinophils (Bld) [#/Vol] 0.0 10*3/uL Normal 0.0-0.45 [facility] Comment on above: Performed By: #### C BC, BMP #### [address] Eosinophils/100 WBC (Bld) 0.2 % Normal . [facility] Comment on above: Performed By: #### C BC, BMP #### [address] Erythrocyte distribution width (RBC) [Ratio] 16.1 % High 11.9-15.3 [facility] Comment on above: Performed By: #### C BC, BMP #### [address] Hematocrit (Bld) [Volume fraction] 37.5 % Normal 34.0-46.4 [facility] Comment on above: Performed By: #### C BC, BMP #### [address] Hemoglobin (Bld) [Mass/Vol] 12.4 g/dL Normal 11.8-15.4 [facility] Comment on above: Performed By: #### C BC, BMP #### [address] Lymphocytes (Bld) [#/Vol] 1.4 10*3/uL Normal 1.00-4.8 [facility] Comment on above: Performed By: #### C BC, BMP #### [address] Lymphocytes/100 WBC (Bld) 15.8 % Normal . [facility] Comment on above: Performed By: #### C BC, BMP #### [address] MCH (RBC) [Entitic mass] 29.2 pg Normal 24.7-34.3 [facility] Comment on above: Performed By: #### C BC, BMP #### [address] MCV (RBC) [Entitic vol] 88.3 fL Normal 80-100 [facility] Comment on above: Performed By: #### C BC, BMP #### [address] Mean Corpuscular HGB Conc 33.1 g/dL Normal 32.0-35.0 [facility] Comment on above: Performed By: #### C BC, BMP #### [address] Monocytes (Bld) [#/Vol] 0.7 10*3/uL Normal 0.0-0.8 [facility] Comment on above: Performed By: #### C BC, BMP #### [address] Monocytes/100 WBC (Bld) 7.7 % Normal . [facility] Comment on above: Performed By: #### C BC, BMP #### [address] Neutrophils (Bld) [#/Vol] 6.7 10*3/uL Normal 1.8-7.7 [facility] Comment on above: Performed By: #### C BC, BMP #### [address] Neutrophils/100 WBC (Bld) 75.4 % Normal . [facility] Comment on above: Performed By: #### C BC, BMP #### [place] [address] [place] Nucleated RBC/100 WBC (Bld) [Ratio] 0.1 % Normal 0-0.5 [facility] Comment on above: Performed By: #### C KELSEY, BMP #### [facility] [address] [place] [address] [place] Platelet mean volume (Bld) [Entitic vol] 8.6 fL Normal 6.3-10.7 [facility] Comment on above: Performed By: #### C KELSEY, BMP #### [facility] [address] [place] [address] [place] Platelets (Bld) [#/Vol] 241 10*3/uL Normal 150-450 [facility] Comment on above: Performed By: #### C KELSEY, BMP #### [facility] [address] RBC (Bld) [#/Vol] 4.24 10*6/uL Normal 3.60-5.00 [facility] Comment on above: Performed By: #### C KELSEY, BMP #### [facility] [address] WBC (Bld) [#/Vol] 8.8 10*3/uL Normal 4.5-11.0 [facility] Comment on above: Performed By: #### C KELSEY, BMP #### [place] [address] [place] Creatinine and Glomerular fi ltration rate.predicted panel (S/P/Bld)Ordered By: Luis Gutierrez on 05-26-2021 Creatinine [Mass/Vol] 0.66 mg/dL 0.44-1.03 [facility] ECG 12 lead ECGon 05-26-2021 ECG 12 lead ECG [facility] [place] [address] [place] [address] Electrocardiograph Report Signed Patient: Alexandra Cervantes MR#: [id number] 2 : 1950 Acct:[id number] Age/Sex: 71 / F ADM Date: 05/26/21 Loc: [facility]: [facility] Attending Dr: Luis Gutierrez DO [...] By Ashley Haines DO 05/27 0848 Normal [facility] Eosinophils Auto (Bld) [#/Vo l]Ordered By: Luis Gutierrez on 05-26-2021 Eosinophils (Bld) [#/Vol] 0.0 10*3/uL 0.0-0.45 [facility] Eosinophils/100 WBC Auto (Bl d)Ordered By: Luis Gutierrez on 05-26-2021 Eosinophils/100 WBC (Bld) 0.2 % [facility] Erythrocyte distribution wid th Auto (RBC) [Ratio]Ordered By: Luis Gutierrez on 05-26-2021 Erythrocyte distribution width (RBC) [Ratio] 16.1 % 11.9-15.3 [facility] Estimated glomerular filtrat ion rate (GFR) non- AmericanOrdered By: Luis Gutierrez on 05-26-2021 GFR/1.73 sq M.predicted among non-blacks MDRD (S/P/Bld) [Vol rate/Area] > 60 mL/Min [facility] Hematocrit Auto (Bld) [Volum e fraction]Ordered By: Luis Gutierrez on 05-26-2021 Hematocrit (Bld) [Volume fraction] 37.5 % 34.0-46.4 [facility] Laboratory - Hematology and Cell countsOrdered By: Luis Gutierrez on 05-26-2021 Nucleated RBC/100 WBC (Bld) [Ratio] 0.1 % 0-0.5 [facility] Lymphocytes Auto (Bld) [#/Vo l]Ordered By: Luis Gutierrez on 05-26-2021 Lymphocytes (Bld) [#/Vol] 1.4 10*3/uL 1.00-4.8 [facility] Lymphocytes/100 WBC Auto (Bl d)Ordered By: Luis Gutierrez on 05-26-2021 Lymphocytes/100 WBC (Bld) 15.8 % [facility] MCH Auto (RBC) [Entitic mass ]Ordered By: Luis Gutierrez on 05-26-2021 MCH (RBC) [Entitic mass] 29.2 pg 24.7-34.3 [facility] MCHC Auto (RBC) [Mass/Vol]Or dered By: Luis Gutierrez on 05-26-2021 MCHC (RBC) [Mass/Vol] 33.1 g/dL 32.0-35.0 [facility] MCV Auto (RBC) [Entitic vol] Ordered By: Luis Gutierrez on 05-26-2021 MCV (RBC) [Entitic vol] 88.3 fL 80-100 [facility] Monocytes Auto (Bld) [#/Vol] Ordered By: Luis Gutierrez on 05-26-2021 Monocytes (Bld) [#/Vol] 0.7 10*3/uL 0.0-0.8 [facility] Monocytes/100 WBC Auto (Bld) Ordered By: Luis Gutierrez on 05-26-2021 Monocytes/100 WBC (Bld) 7.7 % [facility] Neutrophils Auto (Bld) [#/Vo l]Ordered By: Luis Gutierrez on 05-26-2021 Neutrophils (Bld) [#/Vol] 6.7 10*3/uL 1.8-7.7 [facility] Neutrophils/100 WBC Auto (Bl d)Ordered By: Luis Gutierrez on 05-26-2021 Neutrophils/100 WBC (Bld) 75.4 % [facility] No Panel InformationOrdered By: Luis Gutierrez on 05-26-2021 Estimated GFR () > 60 mL/Min [facility] Comment on above: GFR estimated refere nce range: According to KDOQI guidelines, <60 ml/min/1.73m2 is sufficient to diagnose a patient with chronic kidney disease. Pharmacy Creatinine Clearance (Chem N/A [facility] Parathyroid Hormone Intacton 05-26-2021 Parathyroid Hormone Intact 31.2 pg/mL Normal 12-88 [facility] Comment on above: Result Comment: PERF ORMED BY: [place] [address] PATHOLOGIST [employer] MANAGER TRICIA OSHEA M.D. Performed By: #### C BC, BMP #### [address] Platelet mean volume Auto (B ld) [Entitic vol]Ordered By: Luis Gutierrez on 05-26-2021 Platelet mean volume (Bld) [Entitic vol] 8.6 fL 6.3-10.7 [facility] Platelets Auto (Bld) [#/Vol] Ordered By: Luis Gutierrez on 05-26-2021 Platelets (Bld) [#/Vol] 241 10*3/uL 150-450 [facility] RBC Auto (Bld) [#/Vol]Ordere d By: Luis Gutierrez on 05-26-2021 RBC (Bld) [#/Vol] 4.24 10*6/uL 3.60-5.00 [facility] Serum or plasma calcium joseph urement (mass/volume)Ordered By: Luis Gutierrez on 05-26-2021 Calcium [Mass/Vol] 9.4 mg/dL 8.2-10.2 [facility] Serum or plasma chloride liv surement (moles/volume)Ordered By: Luis Gutierrez on 05-26-2021 Chloride [Moles/Vol] 105 mmol/L 95-114 [facility] Serum or plasma glucose joseph urement (mass/volume)Ordered By: Luis Gutierrez on 05-26-2021 Glucose [Mass/Vol] 89 mg/dL 70-100 [facility] Comment on above: ADA recommended refe rence rangeRandom Glucose Reference Range is dependent on time and content of last meal. Glucose of more than 200 mg/dL in a nonstressed, ambulatory subject supports the diagnosis of Diabetes Mellitus. Serum or plasma intact parat hyroid hormone measurement (mass/volume)Ordered By: Luis Gutierrez on 05-26-2021 Parathyrin.intact [Mass/Vol] 31.2 pg/mL [facility] Serum or plasma potassium me asurement (moles/volume)Ordered By: Luis Gutierrez on 05-26-2021 Potassium [Moles/Vol] 4.0 mmol/L 3.5-5.1 [facility] Serum or plasma sodium measu rement (moles/volume)Ordered By: Luis Gutierrez on 05-26-2021 Sodium [Moles/Vol] 137 mmol/L 136-146 [facility] Serum or plasma total carbon dioxide measurement (moles/volume)Ordered By: Luis Gutierrez on 05-26-2021 CO2 [Moles/Vol] 23.0 mmol/L 22.0-30.0 [facility] Serum or plasma urea nitroge n measurement (mass/volume)Ordered By: Luis Gutierrez on 05-26-2021 Urea nitrogen [Mass/Vol] 10 mg/dL 11-03 [facility] TSH DL <= 0.005 mIU/L QnOrde red By: Luis Gutierrez on 05-26-2021 TSH Qn 0.86 m[IU]/L 0.45-5.33 [facility] Thyroid Stimulating Hormoneo n 05-26-2021 TSH Qn 0.86 m[IU]/L Normal 0.45-5.33 [facility] Comment on above: Performed By: #### C A, TSH3, PTH #### [facility] [address] [place] [address] MG MAMM SCREEN 3D GEORGES CADon 05-22-2021 MG MAMM SCREEN 3D GEORGES CAD Patient: ALEXANDRA CERVANTES Exam Date: 05/22/2021 : 1950 Gender:F Ordering : DR DANYELL MORALES M.D. Admission #: [id number] Family : Order #: [id number] CLICK HERE TO VIEW EXAM RADIOLOGY REPORT [...] Treatments None Family Cancers None LOCATION: [facility] BREAST COMPOSITION: Scattered areas fibroglandular density. [...] Killian MD on 05/22/2021 at 12:06 Normal [facility] CT Chest w/Contraston 2021 CT Chest w/Contrast [...] by Valente Lion on 05/22/2021 1528 Normal [facility] Specialist Gastroenterology Office/Clin ic Noteon 05-11-2021 [...] Jeronimo Booker to record this visit. JASS market development specialist and provider reviewed before signing. JASS: Lillie Santiago. Follow-up With When Contact Information JANINA ALARCON, LENORE Farooq MED Within 6 months [facility] [address] [place] [address]- Additional Instructions: Problem List/Past Medical History Ongoing [...] 1 tab(s), Oral, TID levothyroxine, Daily NuLYTELY [place] oral powder for reconstitution, See Instructions omeprazole, [...] influenza virus vaccine, inactivated 11/2020 Recorded Normal [facility] Comment on above: Result Comment: Elec [...] omeprazole polyethylene glycol 3350 with electrolytes (NuLYTELY [place] oral powder for reconstitution) simvastatin Procedures Performed Colonoscopy, flexible; with biopsy, single or multiple (02/16/2020), Colonoscopy. Discharge Vitals Blood Pressure 180/90 Height 150.0 cm Height 150 cm Weight 71.0 kg Weight 71 kg BMI 31.56 What to do next You Need to Schedule the Following Appointments Follow Up with Capri ROA MD, GAS, MED When: Within 6 months Where: [facility] [address] [place] [address]- Medications What How Much When Why Instructions Changed sulfasalazine (sulfasalazine 500 mg Tab) 2 Tablets By Mouth 3 times a day Pickup at [facility]/pharmacy #[id number] Unchanged alprazolam By Mouth Contact prescribing physician [...] Unchanged polyethylene glycol 3350 with electrolytes (NuLYTELY [place] oral powder for reconstitution) See instructions PER PHYS INSRTUCTIONS Contact prescribing physician if questions or concerns Unchanged simvastatin By Mouth Contact prescribing physician if questions or concerns Pharmacy Information [facility]/pharmacy #[id number]: [address], [place] [id number] [phone] Allergies No Known Allergies Problems Ongoing - Any problem that you are currently receiving treatment for. Chronic pancolonic ulcerative colitis Normal [facility] esophaguson 05-04-2021 [place] esophagus [facility] [place] [address] [place] [id number] Fluoroscopy Report Signed Patient: Alexandra Cervantes MR#: [id number] 2 : 1950 Acct:[id number] Age/Sex: 71 / F ADM Date: 05/04/21 Loc: XD Room: Type: [facility] Attending Dr: Cy Sears MD Ordering Provider: Cy Sears MD Date of Service: 05/04/21 [place] esophagus: K22.9 Copies to: Cy Sears MD [...] Kitchen Jr., M.D.05/04/2021 3:37 PM Dictation Location: [place] [address] Transcribed By: [facility] 05/04/211536 Dictated By: Selvin Kitchen Jr, MD 05/04/211531 Signed By: 05/04/21 1537 Normal [facility] Lab Reportson 04-26-2021 Lab Reports [id number]:127 Normal [facility] CBC AUTO DIFFon 04-20-2021 BASO # 0.1 103/ul Normal 0.0-0.1 [facility] Comment on above: Performed By: #### C BC #### [facility] [address] [place] [address] Dr. Scooby Irvin Basophils/100 WBC (Bld) 0.4 % Normal 0.2-2.0 [facility] Comment on above: Performed By: #### C BC #### [facility] [address] [place] [address] Dr. Scooby Irvin EO # 0.0 103/ul Normal 0.0-0.7 [facility] Comment on above: Performed By: #### C BC #### [facility] [address] [place] [address] Dr. Scooby Irvin Eosinophils/100 WBC (Bld) 0.2 % Critically low 0.9-7.0 [facility] Comment on above: Performed By: #### C BC #### [facility] [address] [place] [address] Dr. Scooby Irvin Erythrocyte distribution width (RBC) [Ratio] 16.7 % Critically high 11.0-15.0 [facility] Comment on above: Performed By: #### C BC #### [facility] [address] [place] [address] Dr. Scooby Irvin Hematocrit (Bld) [Volume fraction] 37.6 % Normal 36.0-48.0 [facility] Comment on above: Performed By: #### C BC #### [facility] [address] [place] [address] Dr. Scooby Irvin Hemoglobin (Bld) [Mass/Vol] 12.0 g/dL Normal 12.0-16.0 [facility] Comment on above: Performed By: #### C BC #### [facility] [address] [place] [address] Dr. Scooby Irvin IG # 0.02 10e3/ul Normal 0.00-0.03 [facility] Comment on above: Performed By: #### C BC #### [facility] [address] [place] [address] Dr. Scooby Irvin IG % 0.2 % Normal 0.0-0.5 [facility] Comment on above: Performed By: #### C BC #### [facility] [address] [place] [address] Dr. Scooby Irvin LYMPH # 1.6 103/ul Normal 1.2-3.8 [facility] Comment on above: Performed By: #### C BC #### [facility] [address] [place] [address] Dr. Scooby Irvin Lymphocytes/100 WBC (Bld) 13.6 % Critically low 20.5-60.0 [facility] Comment on above: Performed By: #### C BC #### [facility] [address] [place] [address] Dr. Scooby Irvin MANUAL DIFF REQ NO Normal [facility] Comment on above: Performed By: #### C BC #### [facility] [address] [place] [address] Dr. Scooby Irvin MCH (RBC) [Entitic mass] 28.6 pg Normal 26.7-34.0 [facility] Comment on above: Performed By: #### C BC #### [facility] [address] [place] [address] Dr. Scooby Irvin MCHC (RBC) [Mass/Vol] 31.9 g/dL Normal 29.9-35.2 [facility] Comment on above: Performed By: #### C BC #### [facility] [address] [place] [address] Dr. Scooby Irvin MCV (RBC) [Entitic vol] 89.5 fL Normal 81.0-99.0 [facility] Comment on above: Performed By: #### C BC #### [facility] [address] [place] [address] Dr. Scooby Irvin MONO # 0.7 103/ul Normal 0.3-0.8 [facility] Comment on above: Performed By: #### C BC #### [facility] [address] [place] [address] Dr. Scooby Irvin Monocytes/100 WBC (Bld) 5.8 % Normal 1.7-12.0 [facility] Comment on above: Performed By: #### C BC #### [facility] [address] [place] [address] Dr. Scooby Irvin NEUT # 9.1 103/ul Critically high 1.4-6.5 [facility] Comment on above: Performed By: #### C BC #### [facility] [address] [place] [address] Dr. Scooby Irvin Neutrophils/100 WBC (Bld) 79.8 % Critically high 43.0-75.0 [facility] Comment on above: Performed By: #### C BC #### [facility] [address] [place] [address] Dr. Scooby Irvin Platelet mean volume (Bld) [Entitic vol] 10.2 fL Normal 9.5-13.5 [facility] Comment on above: Performed By: #### C BC #### [facility] [address] [place] [address] Dr. Scooby Irvin PLT 217 103/ul Normal 150-450 [facility] Comment on above: Performed By: #### C BC #### [facility] [address] [place] [address] [address] Scooby Irvin RBC 4.20 106/ul Normal 4.20-5.40 [facility] Comment on above: Performed By: #### C BC #### [facility] [address] [place] [address] [address] Scooby Irvin WBC 11.4 103/ul Critically high 4.0-11.[address] [facility] Comment on above: Performed By: #### C BC #### [facility] [address] [place] [address] Dr. Scooby Irvin PROF 14(COMP METB)on 022 Albumin [Mass/Vol] 3.9 g/dL Normal 3.5-5.0 [facility] Comment on above: Performed By: #### C MP #### [facility] [address] [place] [address] Dr. Scooby Irvin Albumin/Globulin [Mass ratio] 1.1 {ratio} Normal [facility] Comment on above: Performed By: #### C MP #### [facility] [address] [place] [address] Dr. Scooby Irvin ALP [Catalytic activity/Vol] 72 U/L Normal 38-126 [facility] Comment on above: Performed By: #### C MP #### [facility] [address] [place] [address] Dr. Scooby Irvin ALT [Catalytic activity/Vol] 23 U/L Normal 9-52 [facility] Comment on above: Performed By: #### C MP #### [facility] [address] [place] [address] Dr. Scooby Irvin Anion gap [Moles/Vol] 10.2 mmol/L Normal [facility] Comment on above: Performed By: #### C MP #### [facility] [address] [place] [address] [address] Scooby Irvin AST [Catalytic activity/Vol] 20 U/L Normal 14-36 [facility] Comment on above: Performed By: #### C MP #### [facility] [address] [place] [address] [address] Scooby Irvin Bilirubin [Mass/Vol] 0.5 mg/dL Normal 0.2-1.3 [facility] Comment on above: Performed By: #### C MP #### [facility] [address] [place] [address] [address] Scooby Irvin Calcium [Mass/Vol] 8.8 mg/dL Normal 8.4-10.2 [facility] Comment on above: Performed By: #### C MP #### [facility] [address] [place] [address] [address] Scooby Irvin Chloride [Moles/Vol] 104 mmol/L Normal 98-107 [facility] Comment on above: Performed By: #### C MP #### [facility] [address] [place] [address] [address] Scooby Irvin CO2 [Moles/Vol] 28.0 mmol/L Normal 22.0-30.[address] [facility] Comment on above: Performed By: #### C MP #### [facility] [address] [place] [address] [address] Scooby Irvin Creatinine [Mass/Vol] 0.87 mg/dL Normal 0.52-1.04 [facility] Comment on above: Performed By: #### C MP #### [facility] [address] [place] [address] [address] Scooby Irvin EGFR-AF LITHUANIAN >60 Normal >=60 [facility] Comment on above: Performed By: #### C MP #### [facility] [address] [place] [address] [address] Scooby Irvin EGFR-NON AF LITHUANIAN >60 Normal >=60 [facility] Comment on above: Performed By: #### C MP #### [facility] [address] [place] [address] [address] Scooby Irvin Globulin (S) [Mass/Vol] 3.5 g/dL Normal T [facility] Comment on above: Performed By: #### C MP #### [facility] [address] [place] [address] Dr. Scooby Irvin Glucose [Mass/Vol] 93 mg/dL Normal 74-106 [facility] Comment on above: Performed By: #### C MP #### [facility] [address] [place] [address] Dr. Scooby Irvin Potassium [Moles/Vol] 4.2 mmol/L Normal 3.4-5.0 [facility] Comment on above: Performed By: #### C MP #### [facility] [address] [place] [address] Dr. Scooby Irvin Protein [Mass/Vol] 7.4 g/dL Normal 6.1-8.2 [facility] Comment on above: Performed By: #### C MP #### [facility] [address] [place] [address] Dr. Scooby Irvin Sodium [Moles/Vol] 138 mmol/L Normal 137-145 [facility] Comment on above: Performed By: #### C MP #### [facility] [address] [place] [address] Dr. Scooby Irvin Urea nitrogen [Mass/Vol] 15.0 mg/dL Normal 7.0-17.0 [facility] Comment on above: Performed By: #### C MP #### [facility] [address] [place] [address] Dr. Scooby Irvin Urea nitrogen/Creatinine [Mass ratio] 17.2 mg/mg Normal [facility] Comment on above: Performed By: #### C MP #### [facility] [address] [place] [address] Dr. Sc[address] PET CT SKULL BASE [...] by: VALENTE BARRETO Date: 2021-04-07 08:23 Normal [facility] CT LUNG CANCER SCREENINGon 0 03-23-2021 CT [...] VALENTE BARRETO Date: 2021-03-23 09:57 Normal [facility] CBC AUTO DIFFon 03-09-2021 BASO # 0.1 103/ul Normal 0.0-0.1 [facility] Comment on above: Performed By: #### C BC #### [facility] [address] [place] [address] Dr. Scooby Irvin Basophils/100 WBC (Bld) 1.2 % Normal 0.2-2.0 [facility] Comment on above: Performed By: #### C BC #### [facility] [address] [place] [address] Dr. Scooby Irvin EO # 0.1 103/ul Normal 0.0-0.7 [facility] Comment on above: Performed By: #### C BC #### [facility] [address] [address] [address] Scooby Irvin Eosinophils/100 WBC (Bld) 1.4 % Normal 0.9-7.0 [facility] Comment on above: Performed By: #### C BC #### [facility] [address] [address] [address] Scooby Irvin Erythrocyte distribution width (RBC) [Ratio] 16.3 % Critically high 11.0-15.0 [facility] Comment on above: Performed By: #### C BC #### [facility] [address] [place] [address] Dr. Scooby Irvin Hematocrit (Bld) [Volume fraction] 39.6 % Normal 36.0-48.0 [facility] Comment on above: Performed By: #### C BC #### [facility] [address] [place] [address] Dr. Scooby Irvin Hemoglobin (Bld) [Mass/Vol] 12.6 g/dL Normal 12.0-16.0 [facility] Comment on above: Performed By: #### C BC #### [facility] [address] [place] [address] Dr. Scooby Irvin IG # 0.01 10e3/ul Normal 0.00-0.03 [facility] Comment on above: Performed By: #### C BC #### [facility] [address] [place] [address] Dr. Scooby Irvin IG % 0.2 % Normal 0.0-0.5 [facility] Comment on above: Performed By: #### C BC #### [facility] [address] [place] [address] Dr. Scooby Irvin LYMPH # 1.6 103/ul Normal 1.2-3.8 [facility] Comment on above: Performed By: #### C BC #### [facility] [address] [place] [address] Dr. Scooby Irvin Lymphocytes/100 WBC (Bld) 30.7 % Normal 20.5-60.0 [facility] Comment on above: Performed By: #### C BC #### [facility] [address] [place] [address] Dr. Scooby Irvin MANUAL DIFF REQ NO Normal [facility] Comment on above: Performed By: #### C BC #### [facility] [address] [place] [address] Dr. Scooby Irvin MCH (RBC) [Entitic mass] 28.4 pg Normal 26.7-34.0 [facility] Comment on above: Performed By: #### C BC #### [facility] [address] [place] [address] Dr. Scooby Irvin MCHC (RBC) [Mass/Vol] 31.8 g/dL Normal 29.9-35.2 [facility] Comment on above: Performed By: #### C BC #### [facility] [address] [place], [place] [id number] Dr. Scooby Irvin MCV (RBC) [Entitic vol] 89.2 fL Normal 81.0-99.0 [facility] Comment on above: Performed By: #### C BC #### [facility] [address] [place] [address] Dr. Scooby Irvin MONO # 0.6 103/ul Normal 0.3-0.8 [facility] Comment on above: Performed By: #### C BC #### [facility] [address] [place] [address] Dr. Scooby Irvin Monocytes/100 WBC (Bld) 11.5 % Normal 1.7-12.0 [facility] Comment on above: Performed By: #### C BC #### [facility] [address] [place] [address] Dr. Scooby Irvin NEUT # 2.8 103/ul Normal 1.4-6.5 [facility] Comment on above: Performed By: #### C BC #### [facility] [address] [place] [address] Dr. Scooby Irvin Neutrophils/100 WBC (Bld) 55.0 % Normal 43.0-75.0 [facility] Comment on above: Performed By: #### C BC #### [facility] [address] [place] [address] Dr. Scooby Irvin Platelet mean volume (Bld) [Entitic vol] 10.3 fL Normal 9.5-13.5 [facility] Comment on above: Performed By: #### C BC #### [facility] [address] [place] [address] Dr. Scooby Irvin PLT 208 103/ul Normal 150-450 [facility] Comment on above: Performed By: #### C BC #### [facility] [address] [place] [address] Dr. Scooby Irvin RBC 4.44 106/ul Normal 4.20-5.40 [facility] Comment on above: Performed By: #### C BC #### [facility] [address] [place] [address] Dr. Scooby Irvin WBC 5.1 103/ul Normal 4.0-11.0 [facility] Comment on above: Performed By: #### C BC #### [facility] [address] [address] [address] Scooby Irvin FREE T4on 03-09-2021 Free T4 [Mass/Vol] 1.15 ng/dL Normal 0.78-2.19 [facility] Comment on above: Performed By: #### C BC #### [facility] [address] [address] [address] Scooby Irvin LIPID PROFILEon 03-09-2021 CHOL-HDL RATIO NORM SEE BELOW Normal [facility] Comment on above: Result Comment: 3.3 - 4.4 LOW RISK 4.4 - 7.1 AVERAGE RISK 7.1 - 11.0 MODERATE RISK >11.0 HIGH RISK Performed By: #### L IPID, CMP, TSH #### [facility] [address] [address] [address] Scooby Irvin Cholesterol [Mass/Vol] 227 mg/dL Critically high <=200 [facility] Comment on above: Performed By: #### L IPID, CMP, TSH #### [facility] [address] [address] [address] Scooby Irvin Cholesterol in HDL [Mass/Vol] 65 mg/dL Normal [facility] Comment on above: Performed By: #### L IPID, CMP, TSH #### [facility] [address] [address] [address] Scooby Irvin Cholesterol in LDL [Mass/Vol] 142.6 mg/dL Normal [facility] Comment on above: Performed By: #### L IPID, CMP, TSH #### [facility] [address] [address] [address] Scooby Irvin Cholesterol.total/Rachel sterol in HDL [Mass ratio] 3.5 {ratio} Normal [facility] Comment on above: Performed By: #### L IPID, CMP, TSH #### [facility] [address] [address] [address] Scooby Irvin HDL NORMAL > or = 60 mg/dl - LOW CARDIOVASCULAR RISK <40 mg/dl - HIGH CARDIOVASCULAR RISK Normal [facility] Comment on above: Performed By: #### L IPID, CMP, TSH #### [facility] [address] [address] [address] Scooby Irvin LDL CALC NORMAL SEE BELOW Normal [facility] Comment on above: Result Comment: <100 mg/dl OPTIMAL 100 - 129 mg/dl NEAR OR ABOVE OPTIMAL 130 - 159 mg/dl BORDERLINE HIGH 160 - 189 mg/dl HIGH >190 mg/dl VERY HIGH Performed By: #### L IPID, CMP, TSH #### [facility] [address] [address] [address] Scooby Irvin Triglyceride [Mass/Vol] 97 mg/dL Normal <=150 T [facility] Comment on above: Performed By: #### L IPID, CMP, TSH #### [facility] [address] [address] [address] Scooby Irvin VLDL CALC 19.4 mg/dL Normal [facility] Comment on above: Performed By: #### L IPID, CMP, TSH #### [facility] [address] [address] [address] Scooby Irvin PROF 14(COMP METB)on 022 Albumin [Mass/Vol] 4.0 g/dL Normal 3.5-5.0 [facility] Comment on above: Performed By: #### L IPID, CMP, TSH #### [facility] [address] [address] [address] Scooby Irvin Albumin/Globulin [Mass ratio] 1.1 {ratio} Normal [facility] Comment on above: Performed By: #### L IPID, CMP, TSH #### [facility] [address] [address] [address] Scooby Irvin ALP [Catalytic activity/Vol] 80 U/L Normal 38-126 [facility] Comment on above: Performed By: #### L IPID, CMP, TSH #### [facility] [address] [address] [address] Scooby Irvin ALT [Catalytic activity/Vol] 35 U/L Normal 9-52 [facility] Comment on above: Performed By: #### L IPID, CMP, TSH #### [facility] [address] [address] [address] Scooby Irvin Anion gap [Moles/Vol] 11.8 mmol/L Normal [facility] Comment on above: Performed By: #### L IPID, CMP, TSH #### [facility] [address] [address] [address] Scooby Irvin AST [Catalytic activity/Vol] 24 U/L Normal 14-36 [facility] Comment on above: Performed By: #### L IPID, CMP, TSH #### [facility] [address] [address] [address] Scooby Irvin Bilirubin [Mass/Vol] 0.5 mg/dL Normal 0.2-1.3 [facility] Comment on above: Performed By: #### L IPID, CMP, TSH #### [facility] [address] [address] [address] Scooby Irvin Calcium [Mass/Vol] 9.3 mg/dL Normal 8.4-10.2 [facility] Comment on above: Performed By: #### L IPID, CMP, TSH #### [facility] [address] [address] [address] Scooby Irvin Chloride [Moles/Vol] 105 mmol/L Normal 98-107 [facility] Comment on above: Performed By: #### L IPID, CMP, TSH #### [facility] [address] [address] [address] Scooby Irvin CO2 [Moles/Vol] 26.2 mmol/L Normal 22.0-30.[address] [facility] Comment on above: Performed By: #### L IPID, CMP, TSH #### [facility] [address] [address] [address] Scooby Irvin Creatinine [Mass/Vol] 0.83 mg/dL Normal 0.52-1.04 [facility] Comment on above: Performed By: #### L IPID, CMP, TSH #### [facility] [address] [address] [address] Scooby Irvin EGFR-AF LITHUANIAN >60 Normal >=[address] [facility] Comment on above: Performed By: #### L IPID, CMP, TSH #### [facility] [address] [address] [address] Scooby Irvin EGFR-NON AF LITHUANIAN >60 Normal >=60 [facility] Comment on above: Performed By: #### L IPID, CMP, TSH #### [facility] [address] [address] [address] Scooby Irvin Globulin (S) [Mass/Vol] 3.8 g/dL Normal [facility] Comment on above: Performed By: #### L IPID, CMP, TSH #### [facility] [address] [address] [address] Scooby Irvin Glucose [Mass/Vol] 112 mg/dL Critically high 74-106 [facility] Comment on above: Performed By: #### L IPID, CMP, TSH #### [facility] [address] [place] [address] Dr. Scooby Irvin Potassium [Moles/Vol] 4.0 mmol/L Normal 3.4-5.0 [facility] Comment on above: Performed By: #### L IPID, CMP, TSH #### [facility] [address] [place] [address] Dr. Scooby Irvin Protein [Mass/Vol] 7.8 g/dL Normal 6.1-8.2 [facility] Comment on above: Performed By: #### L IPID, CMP, TSH #### [facility] [address] [place] [address] Dr. Scooby Irvin Sodium [Moles/Vol] 139 mmol/L Normal 137-145 [facility] Comment on above: Performed By: #### L IPID, CMP, TSH #### [facility] [address] [place] [address] Dr. Scooby Irvin Urea nitrogen [Mass/Vol] 15.0 mg/dL Normal 7.0-17.0 [facility] Comment on above: Performed By: #### L IPID, CMP, TSH #### [facility] [address] [place], [place] [address] Dr. Scooby Irvin Urea nitrogen/Creatinine [Mass ratio] 18.1 mg/mg Normal [facility] Comment on above: Performed By: #### L IPID, CMP, TSH #### [facility] [address] [place], [place] [address] Dr. Scooby Irvin TSHon 03-09-2021 TSH 2.761 uIU/mL Normal 0.470-4.680 [facility] Comment on above: Performed By: #### L IPID, CMP, TSH #### [facility] [address] [address] [address] Scooby Irvin TSH RANGE SEE BELOW Normal [facility] Comment on above: Result Comment: <0.3 4 UIU/ml HYPERTHYROID 0.34-5.60 UIU/ml EUTHYROID >5.60 UIU/ml HYPOTHYROID Performed By: #### L IPID, CMP, TSH #### [facility] [address] [address] [address] Scooby Irvin Vital Signs Date Time Vital Sign Value Performing Clinician Facility 09-04-2022 09:00-0400 Body height 140.97 cm Danyell Morales Other [facility] 09-04-2022 09:00-0400 Body mass index (BMI) [Ratio] 36.74 kg/m2 Danyell Morales Other [facility] 09-04-2022 09:00-0400 Body weight 73.03 kg Danyell Morales Other [facility] 09-04-2022 09:00-0400 Diastolic blood pressure 78 mm[Hg] Danyell Morales Other [facility] 09-04-2022 09:00-0400 SaO2% (BldA) [Mass fraction] 97 % Danyell Morales Other [facility] 09-04-2022 09:00-0400 Systolic blood pressure 132 mm[Hg] Danyell Morales Other [facility] 03-01-2022 10:30-0500 Body height 140.97 cm Danyell Morales Other [facility] 03-01-2022 10:30-0500 Body mass index (BMI) [Ratio] 36.06 kg/m2 Danyell Morales Other [facility] 03-01-2022 10:30-0500 Body weight 71.67 kg Danyell Morales Other [facility] 03-01-2022 10:30-0500 Diastolic blood pressure 84 mm[Hg] Danyell Morales Other [facility] 03-01-2022 10:30-0500 SaO2% (BldA) [Mass fraction] 98 % Danyell Morales Other [facility] 03-01-2022 10:30-0500 Systolic blood pressure 132 mm[Hg] Danyell Morales Other [facility] 11-08-2021 10:17-0400 Diastolic blood pressure 74 mm[Hg] Farooq SALAM [facility] 11-08-2021 10:17-0400 Mean blood pressure 99 mm[Hg] Farooq SALAM [facility] 11-08-2021 10:17-0400 Systolic blood pressure 148 mm[Hg] Farooq SALAM [facility] 11-08-2021 10:15-0400 Blood Pressure Location Farooq SALAM [facility] 11-08-2021 10:15-0400 Diastolic blood pressure 95 mm[Hg] Farooq SALAM [facility] 11-08-2021 10:15-0400 Heart rate 78 /min Farooq SALAM [facility] 11-08-2021 10:15-0400 Respiratory rate 16 /min Farooq SALAM [facility] 11-08-2021 10:15-0400 Systolic blood pressure 159 mm[Hg] Farooq SALAM [facility] 05-10-2021 11:11-0400 Diastolic blood pressure 90 mm[Hg] Farooq SALAM [facility] 05-10-2021 11:11-0400 Systolic blood pressure 180 mm[Hg] Farooq SALAM [facility] Encounters Encounter Date Encounter Type Care Provider Facility Start: 10-16-2023 End: 10-16-2023 ambulatory JASIEL B APLING Not Available Start: 09-10-2023 End: 09-10-2023 ambulatory DANIELLE LOPEZ Not Available Start: 08-26-2023 End: 08-26-2023 ambulatory JASIEL B APLING Not Available Start: 03-07-2023 End: 03-07-2023 ambulatory Danyell Morales Other [facility] Start: 03-07-2023 Office outpatient vi sit 15 minutes Danyell Morales [facility] Start: 09-20-2022 End: 09-20-2022 ambulatory Danyell Morales Other [facility] Start: 09-20-2022 Telephone encounter Danyell Morales [facility] Start: 09-04-2022 End: 09-04-2022 ambulatory Danyell Morales Other [facility] Start: 09-04-2022 Patient encounter procedure Danyell Morales [facility] Start: 04-19-[address] DANYELL MORALES Facil ity:[facility] Start: 03-01-2022 End: 03-01-2022 ambulatory Danyell Morales Other [facility] Start: 03-01-2022 Office outpatient vi sit 15 minutes Danyell Morales [facility] Start: 01-18-2022 End: 01-19-[address] DANYELL MORALES Facility:[facility] Start: 11-21-2021 End: 11-22-2021 ambulatory CAPRI ROA Facility:[facility] Start: 11-08-2021 End: 11-09-2021 ambulatory [facility] Facility:[facility] Start: 11-08-2021 End: 11-08-2021 Patient encounter procedure [facility] Start: 10-19-2021 End: 10-20-[address] DANYELL MORALES Facility:[facility] Start: 09-27-2021 End: 09-28-[address] DANYELL MORALES Facility:[facility] Start: 09-26-2021 End: 09-26-[address] DANYELL MORALES Facility:[facility] Start: 09-25-2021 Encounter for preprocedural laboratory examination DR RADHA IRAHETA [facility] Start: 09-22-2021 End: 09-23-[address] DANYELL MORALES Facility:[facility] Start: 09-22-2021 End: 09-23-2021 Encounter for preprocedural laboratory examination DR DANYELL MROALES Facility:[facility] Start: 09-11-[address] DANYELL MORALES Facil ity:[facility] Start: 09-06-2021 End: 09-07-2021 ambulatory ROBERTO MCNALLY Facility:[facility] Start: 08-30-2021 Adult health examination Malia Morales Other [facility] Start: 06-22-2021 End: 06-23-2021 ambulatory FAROOQ KUNALAM Facility:[facility] Start: 05-31-2021 End: 05-31-2021 ambulatory Luis Gutierrez Facility:[facility] Start: 05-26-2021 End: 05-26-2021 ambulatory Danyell Morales Facility:[facility] Start: 05-26-2021 End: 05-26-2021 Patient encounter procedure MD Cy Sears Work Phone: [facility] Start: 05-22-2021 End: 05-23-[address] DANYELL MORALES Facility:[facility] Start: 05-10-2021 ambulatory Farooqsabrina SYEDAM [facility] Start: 05-10-2021 End: 05-11-2021 ambulatory Farooq SALAM [facility] Start: 05-10-2021 End: 05-10-2021 Patient encounter procedure Farooq SALAM [facility] Start: 05-09-2021 ambulatory Farooqsabrina ROA [facility] Start: 05-04-2021 End: 05-04-2021 ambulatory Cy Sears Facility:[facility] Start: 05-04-2021 End: 05-04-2021 Patient encounter procedure MD Cy Sears Work Phone: [facility] [place] Start: 04-20-2021 End: 04-21-2021 ambulatory FAROOQ SALAM [...] now? N Result Comment: PERF ORMED BY: [facility] [place] [address] PATHOLOGIST [employer] TRICIA OSHEA M.D. Start: 02-16-2020 Colonoscopy w/biopsy single/multiple [employer] Colonoscopy [facility]ooq [employer] Screening for malign ant neoplasm of breast Danyell Morales Other Immunizations Immunization Date Immunization Notes Care Provider Fa cili 12-09-2020 COVID-19 mRNA-1273 (Moderna) MD Cy Sears Work Phone: [facility] 11-15-2020 influenza virus vaccine, split virus (incl. purified surface antigen) Danyell Morales Other [facility] 11-11-2020 influenza virus vaccine, unspecified formulation Farooq [employer] [facility] 04-26-2020 COVID-19 mRNA-1273 (Moderna) MD Cy Sears Work Phone: [facility] 03-23-2020 COVID-19 mRNA-1273 (Moderna) MD Cy Sears Work Phone: [facility] 11-20-2019 influenza virus vaccine, split virus (incl. purified surface antigen) Danyell Morales Other [facility] 10-24-2016 influenza virus vaccine, split virus (incl. purified surface antigen) Danyell Morales Other [facility] 10-24-2016 pneumococcal conjuga te vaccine, 13 valent Danyell Morales Other [facility] 08-31-2014 tetanus toxoid, reduced diphtheria toxoid, and acellular pertussis vaccine, adsorbed Danyell Morales Other [facility] 11-30-2013 pneumococcal polysaccharide vaccine, 23 valent Danyell Morales Other [facility] Other NEGATED: Highlighted row has not occurred!11-08-2021 influenza virus vaccine, unspecified formulation [employer] [facility] Payers Date Payer Category Payer Self-pay [id number] 2021 Private Health Insurance CLI [id number] 1961 Medicare [id number] 1961 Unknown [id number] 1948 Unknown [id number] 2.16.8 40.1.209016.3.579.2.727 1948 Unknown [id number] 2.16.8 40.1.125638.3.579.2.727 1948 Unknown [id number] 2.16.84 0.1.443822.3.579.2.727 1948 Unknown [id number] 2.16.84 0.1.543542.3.579.2.593 1948 Unknown [id number] 2.16.84 0.1.635573.3.579.2.593 1948 Unknown [id number] 2.16.84 0.1.170413.3.579.2.593 1948 Unknown [id number] 2.16.84 0.1.759775.3.579.2.593 1948 Unknown [id number] 2.16.84 0.1.675327.3.579.2.593 1948 Unknown [id number] 2.16.84 0.1.023519.3.579.2.593 1948 Unknown [id number] 2.16.84 0.1.863515.3.579.2.593 1948 Unknown [id number] 2.16.84 0.1.568133.3.579.2.593 1948 Unknown [id number] 2.16.84 0.1.954390.3.579.2.593 1948 Unknown [id number] 2.16.84 0.1.956214.3.579.2.593 1948 Unknown [id number] 2.16.84 0.1.162362.3.579.2.593 1948 Unknown [id number] 2.16.84 0.1.687050.3.579.2.593 1948 Unknown [id number] 2.16.84 0.1.138026.3.579.2.593 1948 Unknown [id number] 2.16.84 0.1.974603.3.579.2.593 1948 Unknown [id number] 2.16.84 0.1.919305.3.579.2.593 1948 Unknown [id number] 2.16.84 0.1.218999.3.579.2.593 1948 Unknown [id number] 2.16.84 0.1.085784.3.579.2.593 1948 Unknown [id number] 2.16.84 0.1.204212.3.579.2.1259 1948 Unknown [id number] 2.16.84 0.1.518058.3.579.2.1259 1948 Unknown [id number] 2.16.84 0.1.433519.3.579.2.1259 1948 Unknown [id number] 2.16.84 0.1.736228.3.579.2.1259 Medicare Self Pay [id number] Unknown [id number] 2.16.8 40.1.835267.3.579.2.531 Unknown [id number] 2.16.8 40.1.222912.3.579.2.531 Unknown [id number] 2.16.8 40.1.588466.3.579.2.531 Social History Date Type Detail Facility Tobacco smoking stat [facility] Unknown if ever smoked [facility] Work Phone: Start: 1950 Sex Assigned At Female F [facility] Start: 05-10-2021 End: 11-08-2021 Tobacco smoking status Heavy tobacco smoker (finding) [facility] Sex Assigned At Female [facility] Start: 05-26-2021 Tobacco smoking stat [facility] Smoker (finding) [facility] Functional Status Date Assessment Result Facility 11-08-2021 Functional Status N/A [facility] Clinical Notes 01-24-2021 to 03-07-2023 [...] continue to monitor through routine blood work [facility] Other 08-10-2023 Evaluation note* Encounter Date Diagnosis Assessment Notes Treatment Notes Treatment Clinical Notes Sep, Right foot pain (ICD-10 - M79.671) [facility] 07-25-2023 Evaluation note* Encounter Date Diagnosis [...] - E03.9) Chronic problem due for labs. [facility] Other 01-19-2023 Evaluation note* Encounter Date Diagnosis [...] - E78.5) Due for labs in summer. [facility] Other [id number] NoteCONSULTATION PROCEDURE DATE: 01/18/2022 PREOPERATIVE DIAGNOSIS: Left [...] will be followed up in the office.[id number] NoteCONSULTATION CONSULTATION DATE: 01/18/2022 HISTORY OF PRESENT [...] in three months' time, unless otherwise indicated.[facility] [id number] Evaluation + Plan note Diagnostic Tests Pending * CBC w/ Auto Diff 11/08/21 * Comprehensive Metabolic Panel 11/08/21 [facility] [id number] NoteCONSULTATION PROCEDURE DATE: 11/16/2021 PRE AND POSTOPERATIVE [...] will be followed up in the office.[facility] 10-19-2021 NoteCONSULTATION CONSULTATION DATE: 10/19/2021 This [...] in three months' time unless otherwise indicated.[facility] [id number] NoteCONSULTATION CONSULTATION DATE: 09/06/2021 HISTORY OF PRESENT [...] 8/10. She has been following up with [facility] and had a benign fibroid tumor [...] procedure, and patient agrees to move forward.[facility] [id number] NoteCONSULTATION PAIN MANAGEMENT CONSULTATION HISTORY: This is [...] of care and will call when needed. [facility] Signed and Approved by: ROBERTO MCNALLY . 04/27/2021 12:41:00[facility]12-14-2021 Hospital Discharge instructions Follow Up Care 01/24/2021 10:04:31 With:Capri ROA MD, [facility], [facility] Address: [facility] [address] [place] [address] [place] [address]- When:6 months [facility] Evaluation + Plan note Future Appointments Appointment Date:11/08/2021 10:15:00 AM Scheduled Provider:Capri ROA MD Location:[facility] [place] [place] [facility] Appointment Type:[facility] Follow Up Future Scheduled Tests Laboratory* CBC w/ Indices 07/25/20 * Comprehensive Metabolic Panel 07/25/20 [facility] Evaluation noteNo assessment information available [facility] Work Phone: [facility] Narrative - Reported* Type Description Date Medical History GERD Medical History Hypothyroid Medical History Depression Surgical History Appendectomy Surgical History Tubal Ligation Surgical History Right carpal tunnel Surgical History Right finger Surgical History 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 Hospitalization History See past surgical hx [facility] Other Hospital course Narrative No data available for this section [facility] Hospital Discharge instructions No data available for this section [facility] Progress note No data available for this section [facility] Chief Complaint and Reason for [...] Right foot pain (M79 .671) Referral Organization [facility] [place] Referring Provider First Name Danyell Referring Provider Last Name Robin Referring Provider Specialty [facility] Referred Organization [facility] Referred Provider Seymour Johnson Referred Address [address] [place] [phone] Referred Provider Specialty Podiatry - S urgical [...] section and content) DATE CREATED AUTHOR 05/23/2021 [facility] Special[facility] DATE CREATED AUTHOR AUTHOR'S ORGANIZ ATION 11/14/2021 [facility] DATE CREATED AUTHOR AUTHOR'S ORGANIZ ATION 01/23/2022 [facility] DATE CREATED AUTHOR AUTHOR'S ORGANIZ ATION 03/17/2022 [facility] DATE CREATED AUTHOR AUTHOR'S ORGANIZ ATION 10/17/2023 [facility] Specialists EPIC REASON FOR VISIT [...] BE BASED ON THE PRIMARY CLINICAL RECORDS. [employer] provides no warranty or guarantee of the accuracy or completeness of information in this document.
--- NOTE | 2023-11-13 10:11 | P.CN_ITS ---
Consult Note: HPI Data of Consult Patient: known to practice within the last 3 years Requesting Physician: Renee Bernal NP Primary Care Provider: Danyell Kelly MD Consult Narrative Reason for consult: MRI f/u Narrative: Tisha guerra pleasant 73 year old female presents for evaluation of chronic right foot pain secondary to lumbar radiculopathy. Patient has failed to benefit from >6 weeks of PT, tylenol, nsaids, and topical voltaren cream. Patient currently utilizing aleve PRN, baclofen PRN, zonegran 100mg HS. Patient recently underwent L5/S1 TAMMY with moderate ongoing relief per pt. shes noticing improvement in ability to stand and walk, previous ANTONELLA 24% now 12%. Pain today 4/10 increasing to 6/10 at times. cc:: CC: Renee Bernal NP Review of Systems ROS Status of ROS 10 or more systems reviewed and unremark able except as noted in history and below Musculoskeletal Reports: extremity pain PFSH PFSH Medical History (Updated 10/29/23 @ 10:31 by Carmela Gauthier RN) Hypothyroid ?E03.9 - Hypothyroidism, unspecified (ICD-10) Acid reflux ?K21.9 - Gastro-esophageal reflux disease without esophagitis (ICD-10) Tumor, thyroid ?D49.7 - Neoplasm of unspecified behavior of endocrine glands and other parts of nervous system (ICD-10) Carpal tunnel syndrome ?G56.00 - Carpal tunnel syndrome, unspecified upper limb (ICD-10) Sleep apnea ?G47.30 - Sleep apnea, unspecified (ICD-10) Surgical History History of tubal ligation ?Z98.51 - Tubal ligation status (ICD-10) History of appendectomy ?Z90.49 - Acquired absence of other specified parts of digestive tract (ICD- 10) History of carpal tunnel release ?Z98.890 - Other specified postprocedural states (ICD-10) Meds Home Medications and Allergies Home Medications ?Medication ?Instructions ?Recorded ?Confirmed ?Type alprazolam 0.5 mg tablet 0.5 mg PO DAILY 09/10/23 10/29/23 History baclofen 10 mg tablet 10 mg PO DAILY PRN spasms 09/10/23 10/29/23 History escitalopram oxalate 20 mg tablet 20 mg PO DAILY 09/10/23 10/29/23 History ibuprofen 400 mg tablet 400 mg PO TID 09/10/23 10/29/23 History levothyroxine 75 mcg tablet 75 mcg PO DAILY 09/10/23 10/29/23 History omeprazole 40 mg capsule,delayed 40 mg PO DAILY 09/10/23 10/29/23 History release simvastatin 40 mg tablet 40 mg PO DAILY 09/10/23 10/29/23 History sulfasalazine 500 mg tablet 0.5 g PO DAILY 09/10/23 10/29/23 History zonisamide 50 mg capsule 50 mg PO DAILY 09/10/23 10/29/23 History Allergies Allergy/AdvReac Type Severity Reaction Status Date / Time No Known Drug Allergies Allergy Verified 10/29/23 09:23 Exam Constitutional Documenting provider has reviewed patient's vital signs: yes Common normals: no apparent distress, oriented x3, healthy appearing, alert and well nourished General appearance: cooperative HENMT Common normals: normocephalic, hearing grossly normal bilaterally and moist oral mucous membranes Head and scalp: normocephalic Eye Common normals: PERRL Pupil: PERRL Neck & C-Spine Common normals: full ROM General: normal visual inspection Chest Common normals: inspection of chest normal Respiratory Common normals: normal respiratory effort, no retractions and no use of accessory muscles Back & Pelvis Lumbar spine/lower back: ROM limited, pain with ROM and straight leg raise negative bilaterally Sacroiliac joints: SI joints normal Other: positive facet loading strength 5/5 in BLE sensation intact BLE Neuro Common normals: oriented x3, CN's II-XII intact bilaterally, moves all extremities, no focal motor deficits, no sensory deficits noted and deep tendon reflexes 2+ bilaterally Sensorium/orientation: alert Motor exam: strength 5/5 throughout and no movement abnormalities noted Psych Common normals: mental status grossly normal, thought process normal, cooperative, affect normal, speech normal and activity/motor behavior normal Speech: normal speech Thought process: normal thought process Results Additional Findings Additional findings: If on a controlled substance or opioids, I have checked an [place] report on this patient and there are no aberrancies noted in the prescribing history.??If on a controlled substance or opioid a drug screen was completed and reviewed within the last year, and if there has not been a drug screen completed we ordered one today to monitor higher risk, state monitored pain medication use. As part of providing excellent, safe, comprehensive care, the following was completed at our patient's visit: 1. A medication reconciliation and review to ensure accurate knowledge of current/active medications, including asking our patients to inform us about any [id number] medications or herbal remedies/nutritional supplements/alternative remedies. 2. A review to specifically ensure our patients have had annual screening for screening for depression, screening for tobacco use, and screening for unhealthy alcohol use. For concerning screenings had a discussion with the patient, provided patient education, and recommended follow-up with primary care provider when appropriate. If patient noted with a risk of falling, they received education on strength, gait, and balance training to prevent future risk of falling. Assessment and Plan Assessment and Plan (1) Lumbar radiculopathy: (2) Lumbar degenerative disc disease: (3) Spondylolisthesis: Plan continue current medications f/u 3 months, sooner if needed
== END 2023-11-13 09:43 | disposition home or self-care (01) ==
LOC: PM 09:42
PROVIDERS: PCP Family Medicine; Visit Provider Nurse Practitioner
DX: M54.16 Radiculopathy, lumbar region (principal); M51.369 Other intervertebral disc degeneration, lumbar region without mention of lumbar back pain or lower extremity pain; M43.16 Spondylolisthesis, lumbar region
CPT/HCPCS: G0463

== ENCOUNTER 2023-11-29 09:39 | Emergency (ER) | payer MEDICARE, SELFPAY ==
[2023-11-29 09:52] VITALS: BP 171/71; PULSE 92; TEMP 36.7; O2SAT 96; BMI 30.1
--- OUTSIDE RECORDS SUMMARY | 2023-11-29 09:54 | XMS_ITS | CCD ---
Author Organization [facility] Care Team Providers Care Distiller Name Role Phone MD Cy Sears Attending Provider MD Danyell Morales Primary Care Provider DANYELL MORALES Primary Care Physician DO Luis Gutierrez Attending Provider CARMEN, DR DANYELL Solis Attending Unavailable MORALES, DR [...] DANYELL Solis Attending Unavailable MORALES, DR DANYELL Solsi Admitting Unavailable MORALES, DR DANYELL Solis Consulting [...] Unavailable MORALES, DR DANYELL Solis Attending Unavailable SELBYVILLE, DR LONNY Wiggins Consulting Unavailable MORALES, DR DANYELL Solis Consulting Unavailable MORALES, DR DANYELL Solis Primary Care Unavailable ESEQUIEL, DR RADHA Whitfield Attending Unavailable ESEQUIEL, DR RADHA Whitfield Consulting Unavailable ESEQUIEL, DR RADHA Whitfield Admitting Unavailable SABINA STONE Consulting Unavailable MORALES, DR DANYELL Solis Primary Care Unavailable ESEQUIEL, DR RADHA Whitfield Admitting Unavailable ESEQUIEL, DR RADHA Whitfield Attending Unavailable MCNALLY, ROBERTO [...] ESEQUIEL, DR RADHA Whitfield Admitting Unavailable SALAM, FAROOQ Admitting Unavailable MORALES, DR DANYELL Solis Primary Care Unavailable SALAM, FAROOQ Attending Unavailable SALAM, FAROOQ Consulting Unavailable MORALES, DR DANYELL Solis Primary Care Unavailable MISC, DR HIDALGO Admitting Unavailable MISC, DR HIDALGO Attending Unavailable MISC, DR HIDALGO Consulting Unavailable Luis Gutierrez Admitting Unavailable Danyell Morales Primary Care Unavailable Luis Gutierrez Attending Unavailable Cy Sears Attending Unavailable Cy Sears Admitting Unavailable Danyell Morales Primary Care Unavailable Danyell Morales Primary Care Unavailable Luis Gutierrez Attending Unavailable Luis Gutierrez Admitting Unavailable Danyell Morales Unavailable JASIEL GIORDANO Attending Unavailable JASIEL GIORDANO Referring Unavailable DANIELLE LOPEZ Attending Unavailable JASIEL GIORDANO Attending Unavailable JASIEL GIORDANO Attending Unavailable Danyell Morales MD Primary Care Provider Allergies Allergy Classification Reported Allergen(s) Allergy Type Date of Onset Reaction(s) Facility (7 sources) [facility] Drug Allergy 08-26-2023 Unknown [facility] Medications Current Medications Medication Drug Class(es) Dates Sig (Normalized) Sig (Original) ALPRAZolam 0.5 mg oral tablet (10 sources) Benzodiazepine Start: 06-27-2023 ALPRAZolam (Xanax) 0.5 MG tablet Take 0.5 mg by mouth as needed at bedtime 06/27/2023 Active Start: 02-27-2023 Start: 09-03-2022 ALPRAZolam 0.5 mg [...] Status: Ordered baclofen 10 mg oral tablet (6 sources) gamma-Aminobutyric Acid-ergic Agonist Start: 05-26-2021 take [...] day Active escitalopram 20 mg oral tablet (13 sources) Serotonin Reuptake Inhibitor Start: 05-26-2021 take 20 mg by mouth once daily in the morning Escitalopram Oxalate Active 20 MG PO Every morning May 26, 2021 2:53pm Start: 01-28-2020 escitalopram O ral, Daily, Refills(s) 0 Start Date: 01/28/20 Status: Ordered take 1 tablet by maia th once daily escitalopram (Lexapro) 10 MG tablet Take 10 mg by mouth Daily Active Eye Vitamin (1 source) Start: 05-26-2021 take 1 tablet by mouth once daily Eye Vitamin Active 1 TAB PO Daily May 26, 2021 2:53pm folic acid 1 mg oral tablet (2 sources) Start: 07-25-2020 take 1 tablet by mouth once daily Folate 1 mg Tab 1 mg = 1 tab(s), Oral, Daily, # 30 tab(s), Refills(s) 0, Pharmacy: [id number], 150, cm, 07/25/20 14:29:00 [...] Refills(s) 0 Start Date: 01/28/20 Status: Ordered ibuprofen 200 mg oral tablet (3 sources) Nonsteroidal Anti-inflammatory Drug ibuprofen (Advil) 200 MG tablet every 8 (eight) hours Active levothyroxine sodium 0.075 mg oral tablet (10 sources) l-Thyroxine Start: 05-26-2021 take 75 ug by mouth [...] PO Daily May 26, 2021 2:53pm NuLYTELY [place] oral powder for reconstitution (1 source) Start: 01-28-2020 take 1 dose by mouth once NuLYTELY [place] oral powder for reconstitution See Instructions, 1 EA, Refill(s) 0, PER PHYS INSRTUCTIONS, [facility], 150, cm, 01/28/20 10:49:00 EST, Height/Length Dosing, 69.9, kg, 01/28/20 10:49:00 EST, Weight Dosing Start Date: 01/28/20 Status: Ordered omeprazole 40 mg delayed release oral capsule (13 sources) Proton Pump Inhibitor Start: 08-22-2023 omeprazole (PriLOSEC) [address] capsule 08/22/2023 Active Start: 05-26-2021 take 40 mg by mouth once daily at bedtime Omeprazole Active 40 MG PO Daily at bedtime May 26, 2021 2:53pm Start: 01-28-2020 omeprazole Ora l, Daily, Refills(s) 0, Control of stomach acid Start Date: 01/28/20 Status: Ordered omeprazole (PriL OSEC) [address] capsule 1 (one) time each day at the same time Active polyethylene glycol 3350 507824 mg / potassium chloride 1480 mg / sodium bicarbonate 5720 mg / sodium chloride 36412 mg powder for oral solution (1 source) Osmotic Laxative Start: 01-28-2020 take 1 dose by mouth once NuLYTELY [place] oral powder for reconstitution See Instructions, 1 EA, Refill(s) 0, PER PHYS INSRTUCTION, [facility], 150, cm, 01/28/20 10:49:00 EST, Height/Length Dosing, 69.9, kg, 01/28/20 10:49:00 EST, Weight Dosing Start Date: 01/28/20 Status: Ordered simvastatin 40 mg oral tablet (9 sources) HMG-CoA Reductase Inhibitor Start: 10-24-2023 take 1 tablet by mouth at bedtime simvastatin (Zocor) 40 MG tablet Take 40 mg by mouth at bedtime 10/24/2023 Active Start: 05-26-2021 take 40 mg by mouth once daily at bedtime Simvastatin Active 40 MG PO Daily at bedtime May 26, 2021 2:53pm Start: 01-28-2020 simvastatin Or al, Refills(s) 0, High cholesterol Start Date: 01/28/20 Status: Ordered sulfaSALAzine 500 mg oral tablet (10 sources) Aminosalicylate Start: 05-26-2021 take 500 mg by mouth four times daily Sulfasalazine Active 500 MG PO Four times daily May 26, 2021 2:53pm Start: 05-10-2021 take 2 tablets by mo [facility] three times daily sulfasalazine 500 mg Tab 1,000 mg = 2 tab(s), Oral, TID, # 180 tab(s), Refills(s) 11, Pharmacy: [facility]/pharmacy #[id number], 150, cm, 05/10/21 11:13:00 EDT, Height/Length Dosing, 71, kg, 05/10/21 11:13:00 EDT, Weight Dosing Start Date: 05/10/21 Status: Ordered take 1 tablet by maia once daily sulfaSALAzine (Azulfidine) 500 MG tablet Take 500 mg by mouth 1 (one) time each day at the same time Active Vitamin D And Calcium (1 source) Start: 05-26-2021 Vitamin D And Calcium Active PO Twice daily May 26, 2021 2:53pm zonisamide 50 mg oral capsule (2 sources) Anti-epileptic Agent Start: 10-25-2023 take 2 capsules by mouth once daily at bedtime zonisamide (Zonegran) 50 MG capsule TAKE TWO CAPSULES BY MOUTH DAILY AT BEDTIME 10/25/2023 Active Completed/Discontinued Medications Medication Drug Class(es) Dates Sig [...] Translations: [Unspecified abdominal pain] Episodic Anxiety disorders (14 sources) Mixed anxiety and depressive disorder; Translations: [Other specified anxiety disorders] Onset: 02-13-2018 Chronic Disorders of lipid metabolism (14 sources) Hyperlipidemia, unspecified; Translations: [Hyperlipoproteinemia] Onset: 09-27-2021 Chronic Esophageal disorders (8 sources) Gastroesophageal reflux disease; Translations: [Gastro-esophageal reflux disease without esophagitis] Onset: 07-10-2018 Chronic Noninfectious gastroenteritis (7 sources) Chronic diarrhea; Translations: [Noninfective gastroenteritis and colitis, unspecified] Episodic Nonmalignant breast conditions (3 sources) Breast signs and symptoms; Translations: [Other signs and symptoms in breast] Episodic Osteoarthritis (5 sources) Osteoarthritis; Translations: [Unspecified osteoarthritis, unspecified site] Onset: 02-13-2018 11-06-2023 Chronic Other circulatory disease (3 sources) Elevated [...] 02-13-2018 Chronic Regional enteritis and ulcerative colitis (11 sources) Chronic ulcerative pancolitis; Translations: [Ulcerative (chronic) pancolitis without complications] Onset: 05-10-2021 Chronic Residual codes; unclassified (3 sources) Obstructive sleep apnea syndrome; Translations: [Obstructive sleep apnea (adult) (pediatric)] Onset: 09-04-2023 09-04-2023 Chronic Residual codes; unclassified (2 sources) History of arthroscopy of knee joint; Translations: [Other specified postprocedural states] 11-06-2023 Episodic Spondylosis; intervertebral disc disorders; other back problems (6 sources) Spondylosis without myelopathy or radiculopathy, lumbar region; Translations: [Other intervertebral disc degeneration, lumbar region] Onset: 09-06-2021 Chronic Substance-related disorders (7 sources) Nicotine dependence, cigarettes, uncomplicated; Translations: [Tobacco user] Onset: 03-23-2021 Chronic Thyroid disorders (19 sources) Nontoxic goiter, unspecified; Translations: [Hypothyroidism, unspecified] [...] 11-21-2021 BASO # 0.1 103/ul Normal 0.0-0.1 [facility] Comment on above: Performed By: #### C BC #### [facility] [address] [place] [address] Dr. Scooby Irvin Basophils/100 WBC (Bld) 0.5 % Normal 0.2-2.0 [facility] Comment on above: Performed By: #### C BC #### [facility] [address] [place] [address] Dr. Scooby Irvin EO # 0.0 103/ul Normal 0.0-0.7 [facility] Comment on above: Performed By: #### C BC #### [facility] [address] [place] [address] Dr. Scooby Irvin Eosinophils/100 WBC (Bld) 0.1 % Critically low 0.9-7.0 [facility] Comment on above: Performed By: #### C BC #### [facility] [address] [place] [address] Dr. Scooby Irvin Erythrocyte distribution width (RBC) [Ratio] 15.1 % Critically high 11.0-15.0 [facility] Comment on above: Performed By: #### C BC #### [facility] [address] [place] [address] Dr. Scooby Irvin Hematocrit (Bld) [Volume fraction] 39.4 % Normal 36.0-48.0 [facility] Comment on above: Performed By: #### C BC #### [facility] [address] [place] [address] Dr. Scooby Irvin Hemoglobin (Bld) [Mass/Vol] 12.6 g/dL Normal 12.0-16.0 [facility] Comment on above: Performed By: #### C BC #### [facility] [address] [place] [address] Dr. Scooby Irvin IG # 0.05 10e3/ul Critically high 0.00-0.03 [facility] Comment on above: Performed By: #### C BC #### [facility] [address] [place] [address] Dr. Scooby Irvin IG % 0.5 % Normal 0.0-0.5 [facility] Comment on above: Performed By: #### C BC #### [facility] [address] [place] [address] Dr. Scooby Irvin LYMPH # 1.3 103/ul Normal 1.2-3.8 [facility] Comment on above: Performed By: #### C BC #### [facility] [address] [place] [address] Dr. Scooby Irvin Lymphocytes/100 WBC (Bld) 13.2 % Critically low 20.5-60.0 [facility] Comment on above: Performed By: #### C BC #### [facility] [address] [place] [address] Dr. Scooby Irvin MANUAL DIFF REQ NO Normal [facility] Comment on above: Performed By: #### C BC #### [facility] [address] [place] [address] Dr. Scooby Irvin MCH (RBC) [Entitic mass] 30.0 pg Normal 26.7-34.0 [facility] Comment on above: Performed By: #### C BC #### [facility] [address] [place] [address] Dr. Scooby Irvin MCHC (RBC) [Mass/Vol] 32.0 g/dL Normal 29.9-35.2 [facility] Comment on above: Performed By: #### C BC #### [facility] [address] [place] [address] Dr. Scooby Irvin MCV (RBC) [Entitic vol] 93.8 fL Normal 81.0-99.0 [facility] Comment on above: Performed By: #### C BC #### [facility] [address] [place] [address] Dr. Scooby Irvin MONO # 0.7 103/ul Normal 0.3-0.8 [facility] Comment on above: Performed By: #### C BC #### [facility] [address] [place] [address] Dr. Scooby Irvin Monocytes/100 WBC (Bld) 7.2 % Normal 1.7-12.0 [facility] Comment on above: Performed By: #### C BC #### [facility] [address] [place] [address] Dr. Scooby Irvin NEUT # 7.5 103/ul Critically high 1.4-6.5 [facility] Comment on above: Performed By: #### C BC #### [facility] [address] [place] [address] Dr. Scooby Irvin Neutrophils/100 WBC (Bld) 78.5 % Critically high 43.0-75.0 [facility] Comment on above: Performed By: #### C BC #### [facility] [address] [place] [address] Dr. Scooby Irvin Platelet mean volume (Bld) [Entitic vol] 9.9 fL Normal 9.5-13.5 [facility] Comment on above: Performed By: #### C BC #### [facility] [address] [place] [address] Dr. Scooby Irvin PLT 230 103/ul Normal 150-450 [facility] Comment on above: Performed By: #### C BC #### [facility] [address] [place] [address] Dr. Scooby Irvin RBC 4.20 106/ul Normal 4.20-5.40 [facility] Comment on above: Performed By: #### C BC #### [facility] [address] [place] [address] Dr. Scooby Irvin WBC 9.5 103/ul Normal 4.0-11.0 [facility] Comment on above: Performed By: #### C BC #### [facility] [address] [place] [address] Dr. Scooby Irvin PROF 14(COMP METB)on 022 Albumin [Mass/Vol] 3.9 g/dL Normal 3.4-5.0 [facility] Comment on above: Performed By: #### C BC #### [facility] [address] [place] [address] Dr. Scooby Irvin Albumin/Globulin [Mass ratio] 1.0 {ratio} Normal [facility] Comment on above: Performed By: #### C BC #### [facility] [address] [place] [address] Dr. Scooby Irvin ALP [Catalytic activity/Vol] 87 U/L Normal 46-116 [facility] Comment on above: Performed By: #### C BC #### [facility] [address] [place] [address] Dr. Scooby Irvin ALT [Catalytic activity/Vol] 29 U/L Normal 14-59 [facility] Comment on above: Performed By: #### C BC #### [facility] [address] [place] [address] Dr. Scooby Irvin Anion gap [Moles/Vol] 14.1 mmol/L Normal Th [facility] Comment on above: Performed By: #### C BC #### [facility] [address] [place] [address] Dr. Scooby Irvin AST [Catalytic activity/Vol] 38 U/L Critically high 15-37 [facility] Comment on above: Performed By: #### C BC #### [facility] [address] [place] [address] Dr. Scooby Irvin Bilirubin [Mass/Vol] 0.5 mg/dL Normal 0.2-1.0 [facility] Comment on above: Performed By: #### C BC #### [facility] [address] [place] [address] Dr. Scooby Irvin Calcium [Mass/Vol] 9.2 mg/dL Normal 8.5-10.1 [facility] Comment on above: Performed By: #### C BC #### [facility] [address] [place] [address] Dr. Scooby Irvin Chloride [Moles/Vol] 102 mmol/L Normal 98-107 [facility] Comment on above: Performed By: #### C BC #### [facility] [address] [place] [address] Dr. Scooby Irvin CO2 [Moles/Vol] 25.7 mmol/L Normal 21.0-32.0 [facility] Comment on above: Performed By: #### C BC #### [facility] [address] [place] [address] Dr. Scooby Irvin Creatinine [Mass/Vol] 0.76 mg/dL Normal 0.55-1.02 [facility] Comment on above: Performed By: #### C BC #### [facility] [address] [place] [address] Dr. Scooby Irvin EGFR-AF CITIZEN OF [place] >60 Normal >=60 [facility] Comment on above: Performed By: #### C BC #### [facility] [address] [place] [address] Dr. Scooby Irvin EGFR-NON AF CITIZEN OF [place] >60 Normal >=60 [facility] Comment on above: Performed By: #### C BC #### [facility] [address] [place] [address] Dr. Scooby Irvin Globulin (S) [Mass/Vol] 3.8 g/dL Normal T [facility] Comment on above: Performed By: #### C BC #### [facility] [address] [place] [address] Dr. Scooby Irvin Glucose [Mass/Vol] 104 mg/dL Normal 74-106 [facility] Comment on above: Performed By: #### C BC #### [facility] [address] [address] [address] Scooby Irvin Potassium [Moles/Vol] 4.8 mmol/L Normal 3.5-5.1 [facility] Comment on above: Performed By: #### C BC #### [facility] [address] [address] [address] Scooby Irvin Protein [Mass/Vol] 7.7 g/dL Normal 6.4-8.2 [facility] Comment on above: Performed By: #### C BC #### [facility] [address] [address] [address] Scooby Irvin Sodium [Moles/Vol] 137 mmol/L Normal 136-145 [facility] Comment on above: Performed By: #### C BC #### [facility] [address] [address] [address] Scooby Irvin Urea nitrogen [Mass/Vol] 9.0 mg/dL Normal 7.0-18.0 [facility] Comment on above: Performed By: #### C BC #### [facility] [address] [address] [address] Scooby Irvin Urea nitrogen/Creatinine [Mass ratio] 11.8 mg/mg Normal [facility] Comment on above: Performed By: #### C BC #### [facility] [address] [address] [address] Scooby Irvin LIPID PROFILEon 09-27-2021 CHOL-HDL RATIO NORM SEE BELOW Normal [facility] Comment on above: Result Comment: 3.3 - 4.4 LOW RISK 4.4 - 7.1 AVERAGE RISK 7.1 - 11.0 MODERATE RISK >11.0 HIGH RISK Performed By: #### C MP, LIPID #### [facility] [address] [address] [address] Scooby Irvin Cholesterol [Mass/Vol] 235 mg/dL Critically high <=200 [facility] Comment on above: Performed By: #### C MP, LIPID #### [facility] [address] [address] [address] Scooby Irvin Cholesterol in HDL [Mass/Vol] 65 mg/dL Critically high 40-60 [facility] Comment on above: Performed By: #### C MP, LIPID #### [facility] [address] [place] [address] Dr. Scooby Irvin Cholesterol in LDL [Mass/Vol] 156.8 mg/dL Normal [facility] Comment on above: Performed By: #### C MP, LIPID #### [facility] [address] [place] [address] Dr. Scooby Irvin Cholesterol.total/Rachel sterol in HDL [Mass ratio] 3.6 {ratio} Normal [facility] Comment on above: Performed By: #### C MP, LIPID #### [facility] [address] [place] [address] Dr. Scooby Irvin HDL NORMAL > or = 60 mg/dl - LOW CARDIOVASCULAR RISK <40 mg/dl - HIGH CARDIOVASCULAR RISK Normal [facility] Comment on above: Performed By: #### C MP, LIPID #### [facility] [address] [place] [address] Dr. Scooby Irvin LDL CALC NORMAL SEE BELOW Normal [facility] Comment on above: Result Comment: <100 mg/dl OPTIMAL 100 - 129 mg/dl NEAR OR ABOVE OPTIMAL 130 - 159 mg/dl BORDERLINE HIGH 160 - 189 mg/dl HIGH >190 mg/dl VERY HIGH Performed By: #### C MP, LIPID #### [facility] [address] [place] [address] Dr. Scooby Irvin Triglyceride [Mass/Vol] 66 mg/dL Normal <=150 T [facility] Comment on above: Performed By: #### C MP, LIPID #### [facility] [address] [place] [address] Dr. Scooby Irvin VLDL CALC 13.2 mg/dL Normal [facility] Comment on above: Performed By: #### C MP, LIPID #### [facility] [address] [place] [address] Dr. Scooby Irvin PROF 14(COMP METB)on 022 Albumin [Mass/Vol] 3.9 g/dL Normal 3.4-5.0 [facility] Comment on above: Performed By: #### C MP, LIPID #### [facility] [address] [address] [address] Scooby Irvin Albumin/Globulin [Mass ratio] 1.1 {ratio} Normal [facility] Comment on above: Performed By: #### C MP, LIPID #### [facility] [address] [address] [address] Scooby Irvin ALP [Catalytic activity/Vol] 87 U/L Normal 46-116 [facility] Comment on above: Performed By: #### C MP, LIPID #### [facility] [address] [address] [address] Scooby Irvin ALT [Catalytic activity/Vol] 27 U/L Normal 14-59 [facility] Comment on above: Performed By: #### C MP, LIPID #### [facility] [address] [address] [address] Scooby Irvin Anion gap [Moles/Vol] 16.9 mmol/L Normal [facility] Comment on above: Performed By: #### C MP, LIPID #### [facility] [address] [address] [address] Scooby Irvin AST [Catalytic activity/Vol] 21 U/L Normal 15-37 [facility] Comment on above: Performed By: #### C MP, LIPID #### [facility] [address] [address] [address] Scooby Irvin Bilirubin [Mass/Vol] 0.4 mg/dL Normal 0.2-1.0 [facility] Comment on above: Performed By: #### C MP, LIPID #### [facility] [address] [address] [address] Scooby Irvin Calcium [Mass/Vol] 8.7 mg/dL Normal 8.5-10.1 [facility] Comment on above: Performed By: #### C MP, LIPID #### [facility] [address] [address] [address] Scooby Irvin Chloride [Moles/Vol] 102 mmol/L Normal 98-107 [facility] Comment on above: Performed By: #### C MP, LIPID #### [facility] [address] [address] [address] Scooby Irvin CO2 [Moles/Vol] 22.0 mmol/L Normal 21.0-32.0 [facility] Comment on above: Performed By: #### C MP, LIPID #### [facility] [address] [address] [address] Scooby Irvin Creatinine [Mass/Vol] 0.73 mg/dL Normal 0.55-1.02 [facility] Comment on above: Performed By: #### C MP, LIPID #### [facility] [address] [address] [address] Scooby Irvin EGFR-AF CITIZEN [place] >60 Normal >=60 [facility] Comment on above: Performed By: #### C MP, LIPID #### [facility] [address] [address] [address] Scooby Irvin EGFR-NON AF CITIZEN OF [place] >60 Normal >=60 [facility] Comment on above: Performed By: #### C MP, LIPID #### [facility] [address] [place] [address] Dr. Scooby Irvin Globulin (S) [Mass/Vol] 3.7 g/dL Normal [facility] Comment on above: Performed By: #### C MP, LIPID #### [facility] [address] [address] [address] Scooby Irvin Glucose [Mass/Vol] 105 mg/dL Normal 74-106 [facility] Comment on above: Performed By: #### C MP, LIPID #### [facility] [address] [address] [address] Scooby Irvin Potassium [Moles/Vol] 3.9 mmol/L Normal 3.5-5.1 [facility] Comment on above: Performed By: #### C MP, LIPID #### [facility] [address] [place] [address] Dr. Scooby Irvin Protein [Mass/Vol] 7.6 g/dL Normal 6.4-8.2 [facility] Comment on above: Performed By: #### C MP, LIPID #### [facility] [facility] [address] [address] [address] Scooby Irvin Sodium [Moles/Vol] 137 mmol/L Normal 136-145 [facility] Comment on above: Performed By: #### C MP, LIPID #### [facility] [address] [address] [address] Scooby Irvin Urea nitrogen [Mass/Vol] 11.0 mg/dL Normal 7.0-18.0 [facility] Comment on above: Performed By: #### C MP, LIPID #### [facility] [address] [address] [address] Scooby Irvin Urea nitrogen/Creatinine [Mass ratio] 15.1 mg/mg Normal [facility] Comment on above: Performed By: #### C MP, LIPID #### [facility] [address] [address] [address] Scooby Irvin TSHon 09-27-2021 TSH 2.198 uIU/mL Normal 0.358-3.740 [facility] Comment on above: Performed By: #### T SH #### [facility] [address] [address] [address] Scooby Irvin [facility]11 SARS-CoV-2 (COVID-19) RNA ADELITA+probe Ql (Unsp spec) Not detected Normal NOT DETECTED [facility] Comment on above: Result Comment: This test is not yet approved or cleared by the [place] FDA. When there are no FDA-approved or cleared tests available, and other criteria are met, FDA can make tests available under an emergency access mechanism called an Emergency Use Authorization (EUA). The EUA for this test is supported by the Wet Room Worker of Health and Human Service's (HHS's) declaration [...] SARS-CoV-2. Performed By: #### C BC #### [facility] [address] [place] [address] Dr. Scooby Irvin TSHon 06-22-2021 TSH 2.326 uIU/mL Normal 0.358-3.740 [facility] Comment on above: Performed By: #### C BC #### [facility] [address] [address] [address] Scooby Irvin TSH RANGE SEE BELOW Normal [facility] Comment on above: Result Comment: <0.3 4 UIU/ml HYPERTHYROID 0.34-5.60 UIU/ml EUTHYROID >5.60 UIU/ml HYPOTHYROID Performed By: #### C BC #### [facility] [address] [place] [address] Dr. Scooby Irvin ABO/Rh Retypeon 05-31-2021 ABO/RH Recheck Result Positive Normal [facility] Comment on above: Result Comment: PERF ORMED BY: [facility] [address] [place] [address] PATHOLOGIST PLACING JUDGE TRICIA Yin 05-31-2021 L Specimen: [id number] Received: 05/31/21 Status: LIDIA Pineda Num: [id number] Spec Type: Surgical Subm Dr: Luis Gutierrez DO Tissues: A Parathyroid Gland (R/O PARATHYROID) B THYROID - Lobe (R SUBSTERNAL THYROID) Procedures: HE Stain/8, Gross/Micro L5, Gross/Micro L4 Patient Age/Sex Location Account Attending Physician Alexandra Cervantes 71/F [place] [id number] Luis Gutierrez DO SPEC NUM: [id number] RECD: 05/31/21 STATUS: LIDIA MIRIAM NUM: [id number] KATHY: 05/31/21- [facility] DR: Luis Gutierrez DO ENTERED: 05/31/[address] [facility] [address]: LANCE TYPE: Surgical DEPT: S ORDERED: HE Stain/8, Gross/Micro L5, Gross/Micro L4 ORDERED: HE Stain/8, Gross/Micro L5, Gross/Micro L4 Pathological Diagnosis A. Soft tissue, rule out parathyroid , biopsy: - Benign parathyroid tissue - Concurs with the frozen section diagnosis B. Right substernal thyroid gland, excision: - Adenomatoid nodules - One hypercellular parathyroid gland - One benign lymph node (0) Clinical Information Thyroid goiter Gross Description A. [...] blue. Sectioning of the sutured nodule Specimen: [id number] Received: 05/31/21 Status: LIDIA Pineda Num: [id number] Spec Type: Surgical Subm Dr: Luis Gutierrez DO Tissues: A Parathyroid Gland (R/O PARATHYROID) B THYROID - Lobe (R SUBSTERNAL THYROID) Procedures: HE Stain/8, Gross/Micro L5, Gross/Micro L4 Patient: AmyJey sarkarha [id number] (Continued) Specimen: Received: 05/31/21 (Continued) Gross Description (Continued) Signed (signatur e on file) Tricia Oshea MD 06/01/211912 Specimen: Received: 05/31/21 Status: LIDIA Miriam Num: [id number] Spec Type: Surgical Subm Dr: Luis Gutierrez DO Tissues: A Parathyroid Gland (R/O PARATHYROID) B THYROID - Lobe (R SUBSTERNAL THYROID) Procedures: HE Stain/8, Gross/Micro L5, Gross/Micro L4 Patient: SammyhungAlexandra [id number] (Continued) Specimen: Received: 05/31/21 (Continued) Gross Description [...] microscopic findings support the above pathologic diagnosis. [id number], [id number], [id number] Specimen: [id number] Received: (more content not included)... Normal [facility] LeukoReduced RBCon 2 LeukoReduced RBC READY Normal [facility] Type and Screenon 05-31-2021 ABO and Rh group Nom (Bld) Blood group O Rh(D) positive Normal [facility] Comment on above: Order Comment: Trans fuse now? N Result Comment: PERF ORMED BY: [facility] [address] [place] [address] PATHOLOGIST PLACING JUDGE TRICIA OSHEA M.D. Basic Metabolic Panelon 05-12 Calcium [Mass/Vol] 9.5 mg/dL Normal 8.2-10.2 [facility] Comment on above: Result Comment: PERF ORMED BY: [place] [address] PATHOLOGIST PLACING JUDGE TRICIA OSHEA M.D. Performed By: #### C BC, BMP #### [facility] [address] [place] [address] [place] Chloride [Moles/Vol] 105 mmol/L Normal 95-114 [facility] Comment on above: Performed By: #### C BC, BMP #### [facility] [address] [place] [address] CO2 [Moles/Vol] 23.0 mmol/L Normal 22.0-30.0 [facility] Comment on above: Performed By: #### C BC, BMP #### [address] Creatinine [Mass/Vol] 0.66 mg/dL Normal 0.44-1.03 [facility] Comment on above: Performed By: #### C BC, BMP #### [address] Estimated GFR ( Traci > 60 [facility] Comment on above: Result Comment: GFR estimated reference range: According to KDOQI guidelines, <60 ml/min/1.73m2 is sufficient to diagnose a patient with chronic kidney disease. Performed By: #### C BC, BMP #### [facility] [address] [place] [address] Estimated GFR (Non- Am > 60 [facility] Comment on above: Performed By: #### C BC, BMP #### [facility] [address] [place] [address] [place] Glucose [Mass/Vol] 89 mg/dL Normal 70-100 [facility] Comment on above: Result Comment: [place] Glucose Reference Range is dependent on time and content of last meal. Glucose of more than 200 mg/dL in a nonstressed, ambulatory subject supports the diagnosis of Diabetes Mellitus. ADA recommended reference range Performed By: #### C BC, BMP #### [facility] [address] Potassium [Moles/Vol] 4.0 mmol/L Normal 3.5-5.1 [facility] Comment on above: Performed By: #### C BC, BMP #### [facility] [address] Sodium [Moles/Vol] 137 mmol/L Normal 136-146 [facility] Comment on above: Performed By: #### C BC, BMP #### [facility] [address] Urea nitrogen [Mass/Vol] 10 mg/dL Normal 9-23 [facility] Comment on above: Performed By: #### C BC, BMP #### [facility] [address] Basophils Auto (Bld) [#/Vol] Ordered By: Luis Gutierrez on 05-26-2021 Basophils (Bld) [#/Vol] 0.1 10*3/uL 0.0-0.2 [facility] Basophils/100 WBC Auto (Bld) Ordered By: Luis Gutierrez on 05-26-2021 Basophils/100 WBC (Bld) 0.9 % [facility] Blood hemoglobin measurement (mass/volume)Ordered By: Luis Gutierrez on 05-26-2021 Hemoglobin (Bld) [Mass/Vol] 12.4 g/dL 11.8-15.4 [facility] Blood leukocytes automated c ount (number/volume)Ordered By: Luis Gutierrez on 05-26-2021 WBC (Bld) [#/Vol] 8.8 10*3/uL 4.5-11.0 [facility] COVID-19 FRMCon 05-26-2021 SARS-CoV-2 (COVID-19) RNA ADELITA+probe Ql (Unsp spec) Negative Normal Negative [facility] Comment on above: Order Comment: Healt hcare Worker?: N Result Comment: Testing for SARS-CoV-2 by RT-PCR This test was developed and its performance characteristics determined by [employer] and validated at the [facility]. This test has not been FDA [...] is terminated or revoked sooner. PERFORMED BY: [place] [address] PATHOLOGIST PLACING JUDGE TRICIA OSHEA M.D. Performed By: #### C OVID 19 [facility] #### [address] COVID-19 Positive/NegativeOr dered By: Luis Gutierrez on 05-26-2021 SARS-CoV-2 (COVID-19) N gene ADELITA+probe Ql (Resp) Negative Negative [facility] Comment on above: Testing for SARS-CoV -2 by RT-PCRThis test was developed and its performance characteristics determined by [employer] ([employer]) and validated at the [facility]. This test has not been FDA [...] 05-26-2021 Calcium [Mass/Vol] 9.4 mg/dL Normal 8.2-10.2 [facility] Comment on above: Performed By: #### C A, TSH3, PTH #### [address] Complete Blood Count Auto Di ffon 05-26-2021 Basophils (Bld) [#/Vol] 0.1 10*3/uL Normal 0.0-0.2 [facility] Comment on above: Result Comment: PERF ORMED BY: [place] [address] PATHOLOGIST PLACING JUDGE TRICIA OSHEA M.D. Performed By: #### C BC, BMP #### [address] Basophils/100 WBC (Bld) 0.9 % Normal . [facility] Comment on above: Performed By: #### C BC, BMP #### [address] Eosinophils (Bld) [#/Vol] 0.0 10*3/uL Normal 0.0-0.45 [facility] Comment on above: Performed By: #### C BC, BMP #### [address] Eosinophils/100 WBC (Bld) 0.2 % Normal . [facility] Comment on above: Performed By: #### C BC, BMP #### [address] Erythrocyte distribution width (RBC) [Ratio] 16.1 % High 11.9-15.3 [facility] Comment on above: Performed By: #### C BC, BMP #### [address] Hematocrit (Bld) [Volume fraction] 37.5 % Normal 34.0-46.4 [facility] Comment on above: Performed By: #### C BC, BMP #### [facility] [address] Hemoglobin (Bld) [Mass/Vol] 12.4 g/dL Normal 11.8-15.4 [facility] Comment on above: Performed By: #### C BC, BMP #### [facility] [address] Lymphocytes (Bld) [#/Vol] 1.4 10*3/uL Normal 1.00-4.8 [facility] Comment on above: Performed By: #### C BC, BMP #### [facility] [address] Lymphocytes/100 WBC (Bld) 15.8 % Normal . [facility] Comment on above: Performed By: #### C BC, BMP #### [address] MCH (RBC) [Entitic mass] 29.2 pg Normal 24.7-34.3 [facility] Comment on above: Performed By: #### C BC, BMP #### [address] MCV (RBC) [Entitic vol] 88.3 fL Normal 80-100 [facility] Comment on above: Performed By: #### C BC, BMP #### [address] Mean Corpuscular HGB Conc 33.1 g/dL Normal 32.0-35.0 [facility] Comment on above: Performed By: #### C BC, BMP #### [facility] [address] [place] [address] [place] Monocytes (Bld) [#/Vol] 0.7 10*3/uL Normal 0.0-0.8 [facility] Comment on above: Performed By: #### C BC, BMP #### [place] [address] [place] Monocytes/100 WBC (Bld) 7.7 % Normal . [facility] Comment on above: Performed By: #### C BC, BMP #### [address] [place] [address] [place] Neutrophils (Bld) [#/Vol] 6.7 10*3/uL Normal 1.8-7.7 [facility] Comment on above: Performed By: #### C KELSEY, BMP #### [facility] [address] [id number] [place] Neutrophils/100 WBC (Bld) 75.4 % Normal . [facility] Comment on above: Performed By: #### C KELSEY, BMP #### [facility] [address] [place] [address] [place] Nucleated RBC/100 WBC (Bld) [Ratio] 0.1 % Normal 0-0.5 [facility] Comment on above: Performed By: #### C KELSEY, BMP #### [facility] [address] [place] [address] [place] Platelet mean volume (Bld) [Entitic vol] 8.6 fL Normal 6.3-10.7 [facility] Comment on above: Performed By: #### C KELSEY, BMP #### [facility] [address] [place] [address] [place] Platelets (Bld) [#/Vol] 241 10*3/uL Normal 150-450 [facility] Comment on above: Performed By: #### C KELSEY, BMP #### [facility] [address] [place] [address] [place] RBC (Bld) [#/Vol] 4.24 10*6/uL Normal 3.60-5.00 [facility] Comment on above: Performed By: #### C KELSEY, BMP #### [facility] [address] [place] [address] [place] WBC (Bld) [#/Vol] 8.8 10*3/uL Normal 4.5-11.0 [facility] Comment on above: Performed By: #### C KELSEY, BMP #### [facility] [address] [place] [address] [place] Creatinine and Glomerular fi ltration rate.predicted panel (S/P/Bld)Ordered By: Luis Gutierrez on 05-26-2021 Creatinine [Mass/Vol] 0.66 mg/dL 0.44-1.03 [facility] ECG 12 lead ECGon 05-26-2021 ECG 12 lead ECG [facility] [place] [address] Electrocardiograph Report Signed Patient: Alexandra Cervantes MR#: [id number] 2 : 1950 Acct:[id number] Age/Sex: 71 / F ADM Date: 05/26/21 Loc: PS Room: Type: [facility] Attending Dr: Luis Gutierrez DO Ordering [...] By Ashley Haines DO 05/27 0848 Normal [facility] Eosinophils Auto (Bld) [#/Vo l]Ordered By: Luis Gutierrez on 05-26-2021 Eosinophils (Bld) [#/Vol] 0.0 10*3/uL 0.0-0.45 [facility] Eosinophils/100 WBC Auto (Bl d)Ordered By: Luis Gutierrez on 05-26-2021 Eosinophils/100 WBC (Bld) 0.2 % [facility] Erythrocyte distribution wid th Auto (RBC) [Ratio]Ordered By: Luis Gutierrez on 05-26-2021 Erythrocyte distribution width (RBC) [Ratio] 16.1 % 11.9-15.3 [facility] Estimated glomerular filtrat ion rate (GFR) non- AmericanOrdered By: Luis Gutierrez on 05-26-2021 GFR/1.73 sq M.predicted among non-blacks MDRD (S/P/Bld) [Vol rate/Area] > 60 mL/Min [facility] Hematocrit Auto (Bld) [Volum e fraction]Ordered By: Luis Gutierrez on 05-26-2021 Hematocrit (Bld) [Volume fraction] 37.5 % 34.0-46.4 [facility] - Hematology and Cell countsOrdered By: Luis Gutierrez on 05-26-2021 Nucleated RBC/100 WBC (Bld) [Ratio] 0.1 % 0-0.5 [facility] Lymphocytes Auto (Bld) [#/Vo l]Ordered By: Luis Gutierrez on 05-26-2021 Lymphocytes (Bld) [#/Vol] 1.4 10*3/uL 1.00-4.8 [facility] Lymphocytes/100 WBC Auto (Bl d)Ordered By: Luis Gutierrez on 05-26-2021 Lymphocytes/100 WBC (Bld) 15.8 % [facility] MCH Auto (RBC) [Entitic mass ]Ordered By: Luis Gutierrez on 05-26-2021 MCH (RBC) [Entitic mass] 29.2 pg 24.7-34.3 [facility] MCHC Auto (RBC) [Mass/Vol]Or dered By: Luis Gutierrez on 05-26-2021 MCHC (RBC) [Mass/Vol] 33.1 g/dL 32.0-35.0 [facility] MCV Auto (RBC) [Entitic vol] Ordered By: Luis Gutierrez on 05-26-2021 MCV (RBC) [Entitic vol] 88.3 fL 80-100 [facility] Monocytes Auto (Bld) [#/Vol] Ordered By: Luis Gutierrez on 05-26-2021 Monocytes (Bld) [#/Vol] 0.7 10*3/uL 0.0-0.8 [facility] Monocytes/100 WBC Auto (Bld) Ordered By: Luis Gutierrez on 05-26-2021 Monocytes/100 WBC (Bld) 7.7 % [facility] Neutrophils Auto (Bld) [#/Vo l]Ordered By: Luis Gutierrez on 05-26-2021 Neutrophils (Bld) [#/Vol] 6.7 10*3/uL 1.8-7.7 [facility] Neutrophils/100 WBC Auto (Bl d)Ordered By: Luis Gutierrez on 05-26-2021 Neutrophils/100 WBC (Bld) 75.4 % [facility] No Panel InformationOrdered By: Luis Gutierrez on 05-26-2021 Estimated GFR () > 60 mL/Min [facility] Comment on above: GFR estimated refere nce range: According to KDOQI guidelines, <60 ml/min/1.73m2 is sufficient to diagnose a patient with chronic kidney disease. Pharmacy Creatinine Clearance (Chem N/A [facility] Parathyroid Hormone Intacton 05-26-2021 Parathyroid Hormone Intact 31.2 pg/mL Normal 12-88 [facility] Comment on above: Result Comment: PERF ORMED BY: [place] [address] PATHOLOGIST PLACING JUDGE TRICIA OSHEA M.D. Performed By: #### C BC, BMP #### [address] Platelet mean volume Auto (B ld) [Entitic vol]Ordered By: Luis Gutierrez on 05-26-2021 Platelet mean volume (Bld) [Entitic vol] 8.6 fL 6.3-10.7 [facility] Platelets Auto (Bld) [#/Vol] Ordered By: Luis Gutierrez on 05-26-2021 Platelets (Bld) [#/Vol] 241 10*3/uL 150-450 [facility] RBC Auto (Bld) [#/Vol]Ordere d By: Luis Gutierrez on 05-26-2021 RBC (Bld) [#/Vol] 4.24 10*6/uL 3.60-5.00 [facility] Serum or plasma calcium joseph urement (mass/volume)Ordered By: Luis Gutierrez on 05-26-2021 Calcium [Mass/Vol] 9.4 mg/dL 8.2-10.2 [facility] Serum or plasma chloride liv surement (moles/volume)Ordered By: Luis Gutierrez on 05-26-2021 Chloride [Moles/Vol] 105 mmol/L 95-114 [facility] Serum or plasma glucose joseph urement (mass/volume)Ordered By: Luis Gutierrez on 05-26-2021 Glucose [Mass/Vol] 89 mg/dL 70-100 [facility] Comment on above: ADA recommended refe rence rangeRandom Glucose Reference Range is dependent on time and content of last meal. Glucose of more than 200 mg/dL in a nonstressed, ambulatory subject supports the diagnosis of Diabetes Mellitus. Serum or plasma intact parat hyroid hormone measurement (mass/volume)Ordered By: Luis Gutierrez on 05-26-2021 Parathyrin.intact [Mass/Vol] 31.2 pg/mL 12 [facility] Serum or plasma potassium me asurement (moles/volume)Ordered By: Luis Gutierrez on 05-26-2021 Potassium [Moles/Vol] 4.0 mmol/L 3.5-5.1 [facility] Serum or plasma sodium measu rement (moles/volume)Ordered By: Luis Gutierrez on 05-26-2021 Sodium [Moles/Vol] 137 mmol/L 136-146 [facility] Serum or plasma total carbon dioxide measurement (moles/volume)Ordered By: Luis Gutierrez on 05-26-2021 CO2 [Moles/Vol] 23.0 mmol/L 22.0-30.0 [facility] Serum or plasma urea nitroge n measurement (mass/volume)Ordered By: Luis Gutierrez on 05-26-2021 Urea nitrogen [Mass/Vol] 10 mg/dL 9- [facility] TSH DL <= 0.005 mIU/L QnOrde red By: Luis Gutierrez on 05-26-2021 TSH Qn 0.86 m[IU]/L 0.45-5.33 [facility] Thyroid Stimulating Hormoneo n 05-26-2021 TSH Qn 0.86 m[IU]/L Normal 0.45-5.33 [facility] Comment on above: Performed By: #### C A, TSH3, PTH #### [address] MG MAMM SCREEN 3D GEORGES CADon 05-22-2021 MG MAMM SCREEN 3D GEORGES CAD Patient: ALEXANDRA CERVANTES Exam Date: 05/22/2021 : 1950 Gender:F Ordering : DR DANYELL MORALES M.D. Admission #: [id number] Family : Order #: [id number] CLICK HERE TO VIEW EXAM RADIOLOGY REPORT [...] Treatments None Family Cancers None LOCATION: [facility] BREAST COMPOSITION: Scattered areas fibroglandular density. FINDINGS: [...] Killian MD on 05/22/2021 at 12:06 Normal [facility] CT Chest w/Contraston 2021 CT Chest w/Contrast Please see CT neck report dated: 05/17/2021. Report reported and signed by Valente Lion on 05/22/2021 1528 Normal [facility] Case Worker CT Soft Tissue Neck w/ Contr ast*on [...] by Valente Lion on 05/22/2021 1528 Normal [facility] [place] esophaguson 05-04-2021 OR esophagus [facility] [place] [address] [place] [address] Fluoroscopy Report Signed Patient: Alexandra Cervantes MR#: [id number] 2 : 1950 Acct:[id number] Age/Sex: 71 / F ADM Date: 05/04/21 Loc: XD Room: Type: [facility] Attending Dr: Cy Sears MD Ordering Provider: Cy Sears MD Date of Service: 05/04/21 OR/OR esophagus: K22.9 Copies to: Cy Sears MD [...] Kitchen Jr., M.D.05/04/2021 3:37 PM Dictation Location: [place] [address] Transcribed By: [facility] 05/04/211536 Dictated By: Selvin Kitchen Jr, MD 05/04/211531 Signed By: 05/04/211536 [facility] CBC AUTO DIFFon 04-20-2021 BASO # 0.1 103/ul Normal 0.0-0.1 [facility] Comment on above: Performed By: #### C BC #### [facility] [address] [place] [address] Dr. Scooby Irvin Basophils/100 WBC (Bld) 0.4 % Normal 0.2-2.0 [facility] Comment on above: Performed By: #### C BC #### [facility] [address] [place] [address] Dr. Scooby Irvin EO # 0.0 103/ul Normal 0.0-0.7 [facility] Comment on above: Performed By: #### C BC #### [facility] [address] [place] [address] Dr. Scooby Irvin Eosinophils/100 WBC (Bld) 0.2 % Critically low 0.9-7.0 [facility] Comment on above: Performed By: #### C BC #### [facility] [address] [place] [address] Dr. Scooby Irvin Erythrocyte distribution width (RBC) [Ratio] 16.7 % Critically high 11.0-15.0 [facility] Comment on above: Performed By: #### C BC #### [facility] [address] [place] [address] Dr. Scooby Irvin Hematocrit (Bld) [Volume fraction] 37.6 % Normal 36.0-48.0 [facility] Comment on above: Performed By: #### C BC #### [facility] [address] [place] [address] Dr. Scooby Irvin Hemoglobin (Bld) [Mass/Vol] 12.0 g/dL Normal 12.0-16.0 [facility] Comment on above: Performed By: #### C BC #### [facility] [address] [place] [address] Dr. Scooby Irvin IG # 0.02 10e3/ul Normal 0.00-0.03 [facility] Comment on above: Performed By: #### C BC #### [facility] [address] [place] [address] Dr. Scooby Irvin IG % 0.2 % Normal 0.0-0.5 [facility] Comment on above: Performed By: #### C BC #### [facility] [address] [place] [address] Dr. Scooby Irvin LYMPH # 1.6 103/ul Normal 1.2-3.8 [facility] Comment on above: Performed By: #### C BC #### [facility] [address] [place] [address] Dr. Scooby Irvin Lymphocytes/100 WBC (Bld) 13.6 % Critically low 20.5-60.0 [facility] Comment on above: Performed By: #### C BC #### [facility] [address] [place] [address] Dr. Scooby Irvin MANUAL DIFF REQ NO Normal [facility] Comment on above: Performed By: #### C BC #### [facility] [address] [place] [address] Dr. Scooby Irvin MCH (RBC) [Entitic mass] 28.6 pg Normal 26.7-34.0 [facility] Comment on above: Performed By: #### C BC #### [facility] [address] [place] [address] Dr. Scooby Irvin MCHC (RBC) [Mass/Vol] 31.9 g/dL Normal 29.9-35.2 [facility] Comment on above: Performed By: #### C BC #### [facility] [address] [address] [address] Scooby Irvin MCV (RBC) [Entitic vol] 89.5 fL Normal 81.0-99.0 [facility] Comment on above: Performed By: #### C BC #### [facility] [address] [address] [address] Scooby Irvin MONO # 0.7 103/ul Normal 0.3-0.8 [facility] Comment on above: Performed By: #### C BC #### [facility] [address] [address] [address] Scooby Irvin Monocytes/100 WBC (Bld) 5.8 % Normal 1.7-12.0 [facility] Comment on above: Performed By: #### C BC #### [facility] [address] [address] [address] Scooby Irvin NEUT # 9.1 103/ul Critically high 1.4-6.5 [facility] Comment on above: Performed By: #### C BC #### [facility] [address] [address] [address] Scooby Irvin Neutrophils/100 WBC (Bld) 79.8 % Critically high 43.0-75.0 [facility] Comment on above: Performed By: #### C BC #### [facility] [address] [address] [address] Scooby Irvin Platelet mean volume (Bld) [Entitic vol] 10.2 fL Normal 9.5-13.5 [facility] Comment on above: Performed By: #### C BC #### [facility] [address] [address] [address] Scooby Irvin PLT 217 103/ul Normal 150-450 [facility] Comment on above: Performed By: #### C BC #### [facility] [address] [address] [address] Scooby Irvin RBC 4.20 106/ul Normal 4.20-5.40 [facility] Comment on above: Performed By: #### C BC #### [facility] [address] [address] [address] Scooby Irvin WBC 11.4 103/ul Critically high 4.0-11.0 [facility] Comment on above: Performed By: #### C BC #### [facility] [address] [address] [address] Scooby Irvin PROF 14(COMP METB)on 022 Albumin [Mass/Vol] 3.9 g/dL Normal 3.5-5.0 [facility] Comment on above: Performed By: #### C MP #### [facility] [address] [place] [address] Dr. Scooby Irvin Albumin/Globulin [Mass ratio] 1.1 {ratio} Normal [facility] Comment on above: Performed By: #### C MP #### [facility] [address] [place] [address] Dr. Scooby Irvin ALP [Catalytic activity/Vol] 72 U/L Normal 38-126 [facility] Comment on above: Performed By: #### C MP #### [facility] [address] [place] [address] Dr. Scooby Irvin ALT [Catalytic activity/Vol] 23 U/L Normal 9-52 [facility] Comment on above: Performed By: #### C MP #### [facility] [address] [place] [address] Dr. Scooby Irvin Anion gap [Moles/Vol] 10.2 mmol/L Normal [facility] Comment on above: Performed By: #### C MP #### [facility] [address] [place] [address] Dr. Scooby Irvin AST [Catalytic activity/Vol] 20 U/L Normal 14-36 [facility] Comment on above: Performed By: #### C MP #### [facility] [address] [place] [address] Dr. Scooby Irvin Bilirubin [Mass/Vol] 0.5 mg/dL Normal 0.2-1.3 [facility] Comment on above: Performed By: #### C MP #### [facility] [address] [address] [address] Scooby Irvin Calcium [Mass/Vol] 8.8 mg/dL Normal 8.4-10.2 [facility] Comment on above: Performed By: #### C MP #### [facility] [address] [address] [address] Scooby Irvin Chloride [Moles/Vol] 104 mmol/L Normal 98-107 [facility] Comment on above: Performed By: #### C MP #### [facility] [address] [place] [address] Dr. Scooby Irvin CO2 [Moles/Vol] 28.0 mmol/L Normal 22.0-30.0 [facility] Comment on above: Performed By: #### C MP #### [facility] [address] [place] [address] Dr. Scooby Irvin Creatinine [Mass/Vol] 0.87 mg/dL Normal 0.52-1.04 [facility] Comment on above: Performed By: #### C MP #### [facility] [address] [place] [address] Dr. Scooby Irvin EGFR-AF CITIZEN OF [place] >60 Normal >=60 [facility] Comment on above: Performed By: #### C MP #### [facility] [address] [place] [address] Dr. Scooby Irvin EGFR-NON AF CITIZEN OF [place] >60 Normal >=60 [facility] Comment on above: Performed By: #### C MP #### [facility] [address] [address] [address] Scooby Irvin Globulin (S) [Mass/Vol] 3.5 g/dL Normal T [facility] Comment on above: Performed By: #### C MP #### [facility] [address] [place] [address] Dr. Scooby Irvin Glucose [Mass/Vol] 93 mg/dL Normal 74-106 [facility] Comment on above: Performed By: #### C MP #### [facility] [address] [address] [address] Scooby Irvin Potassium [Moles/Vol] 4.2 mmol/L Normal 3.4-5.0 [facility] Comment on above: Performed By: #### C MP #### [facility] [address] [address] [address] Scooby Irvin Protein [Mass/Vol] 7.4 g/dL Normal 6.1-8.2 [facility] Comment on above: Performed By: #### C MP #### [facility] [address] [address] [address] Scooby Irvin Sodium [Moles/Vol] 138 mmol/L Normal 137-145 [facility] Comment on above: Performed By: #### C MP #### [facility] [address] [address] [address] Scooby Irvin Urea nitrogen [Mass/Vol] 15.0 mg/dL Normal 7.0-17.0 [facility] Comment on above: Performed By: #### C MP #### [facility] [address] [place] [address] Dr. Scooby Irvin Urea nitrogen/Creatinine [Mass ratio] 17.2 mg/mg Normal [facility] Comment on above: Performed By: #### C MP #### [facility] [address] [place] [address] Dr[address] SKULL BASE [...] VALENTE BARRETO Date: 2021-04-07 08:23 Normal [facility] LUNG CANCER SCREENINGon 0 03-23-2021 CT [...] by: VALENTE BARRETO Date: 2021-03-23 09:57 Normal [facility] CBC AUTO DIFFon 03-09-2021 BASO # 0.1 103/ul Normal 0.0-0.1 [facility] Comment on above: Performed By: #### C BC #### [facility] [address] [place] [address] Dr. Scooby Irvin Basophils/100 WBC (Bld) 1.2 % Normal 0.2-2.0 [facility] Comment on above: Performed By: #### C BC #### [facility] [address] [place] [address] Dr. Scooby Irvin EO # 0.1 103/ul Normal 0.0-0.7 [facility] Comment on above: Performed By: #### C BC #### [facility] [address] [place] [address] Dr. Scooby Irvin Eosinophils/100 WBC (Bld) 1.4 % Normal 0.9-7.0 [facility] Comment on above: Performed By: #### C BC #### [facility] [address] [place] [address] Dr. Scooby Irvin Erythrocyte distribution width (RBC) [Ratio] 16.3 % Critically high 11.0-15.0 [facility] Comment on above: Performed By: #### C BC #### [facility] [address] [place] [address] Dr. Scooby Irvin Hematocrit (Bld) [Volume fraction] 39.6 % Normal 36.0-48.0 [facility] Comment on above: Performed By: #### C BC #### [facility] [address] [place] [address] Dr. Scooby Irvin Hemoglobin (Bld) [Mass/Vol] 12.6 g/dL Normal 12.0-16.0 [facility] Comment on above: Performed By: #### C BC #### [facility] [address] [place] [address] Dr. Scooby Irvin IG # 0.01 10e3/ul Normal 0.00-0.03 [facility] Comment on above: Performed By: #### C BC #### [facility] [address] [place] [address] Dr. Scooby Irvin IG % 0.2 % Normal 0.0-0.5 [facility] Comment on above: Performed By: #### C BC #### [facility] [address] [place] [address] Dr. Scooby Irvin LYMPH # 1.6 103/ul Normal 1.2-3.8 [facility] Comment on above: Performed By: #### C BC #### [facility] [address] [place] [address] Dr. Scooby Irvin Lymphocytes/100 WBC (Bld) 30.7 % Normal 20.5-60.0 [facility] Comment on above: Performed By: #### C BC #### [facility] [address] [place] [address] Dr. Scooby Irvin MANUAL DIFF REQ NO Normal [facility] Comment on above: Performed By: #### C BC #### [facility] [address] [place] [address] Dr. Scooby Irvin MCH (RBC) [Entitic mass] 28.4 pg Normal 26.7-34.0 [facility] Comment on above: Performed By: #### C BC #### [facility] [address] [place] [address] Dr. Scooby Irvin MCHC (RBC) [Mass/Vol] 31.8 g/dL Normal 29.9-35.2 [facility] Comment on above: Performed By: #### C BC #### [facility] [address] [place] [address] Dr. Scooby Irvin MCV (RBC) [Entitic vol] 89.2 fL Normal 81.0-99.0 [facility] Comment on above: Performed By: #### C BC #### [facility] [address] [place] [address] Dr. Scooby Irvin MONO # 0.6 103/ul Normal 0.3-0.8 [facility] Comment on above: Performed By: #### C BC #### [facility] [address] [place] [address] Dr. Scooby Irvin Monocytes/100 WBC (Bld) 11.5 % Normal 1.7-12.0 [facility] Comment on above: Performed By: #### C BC #### [facility] [address] [place] [address] Dr. Scooby Irvin NEUT # 2.8 103/ul Normal 1.4-6.5 [facility] Comment on above: Performed By: #### C BC #### [facility] [address] [place] [address] Dr. Scooby Irvin Neutrophils/100 WBC (Bld) 55.0 % Normal 43.0-75.0 [facility] Comment on above: Performed By: #### C BC #### [facility] [address] [place] [address] Dr. Scooby Irvin Platelet mean volume (Bld) [Entitic vol] 10.3 fL Normal 9.5-13.5 [facility] Comment on above: Performed By: #### C BC #### [facility] [address] [place] [address] Dr. Scooby Irvin PLT 208 103/ul Normal 150-450 [facility] Comment on above: Performed By: #### C BC #### [facility] [address] [place] [address] Dr. Scooby Irvin RBC 4.44 106/ul Normal 4.20-5.40 [facility] Comment on above: Performed By: #### C BC #### [facility] [address] [place] [address] Dr. Scooby Irvin WBC 5.1 103/ul Normal 4.0-11.0 [facility] Comment on above: Performed By: #### C BC #### [facility] [address] [place] [address] Dr. Scooby Irvin FREE T4on 03-09-2021 Free T4 [Mass/Vol] 1.15 ng/dL Normal 0.78-2.19 [facility] Comment on above: Performed By: #### C BC #### [facility] [address] [place] [address] Dr. Scooby Irvin LIPID PROFILEon 03-09-2021 CHOL-HDL RATIO NORM SEE BELOW Normal [facility] Comment on above: Result Comment: 3.3 - 4.4 LOW RISK 4.4 - 7.1 AVERAGE RISK 7.1 - 11.0 MODERATE RISK >11.0 HIGH RISK Performed By: #### L IPID, CMP, TSH #### [facility] [address] [address] [address] Scooby Irvin Cholesterol [Mass/Vol] 227 mg/dL Critically high <=200 [facility] Comment on above: Performed By: #### L IPID, CMP, TSH #### [facility] [address] [address] [address] Scooby Irvin Cholesterol in HDL [Mass/Vol] 65 mg/dL Normal [facility] Comment on above: Performed By: #### L IPID, CMP, TSH #### [facility] [address] [address] [address] Scooby Irvin Cholesterol in LDL [Mass/Vol] 142.6 mg/dL Normal [facility] Comment on above: Performed By: #### L IPID, CMP, TSH #### [facility] [address] [address] [address] Scooby Irvin Cholesterol.total/Rachel sterol in HDL [Mass ratio] 3.5 {ratio} Normal [facility] Comment on above: Performed By: #### L IPID, CMP, TSH #### [facility] [address] [address] [address] Scooby Irvin HDL NORMAL > or = 60 mg/dl - LOW CARDIOVASCULAR RISK <40 mg/dl - HIGH CARDIOVASCULAR RISK Normal [facility] Comment on above: Performed By: #### L IPID, CMP, TSH #### [facility] [address] [address] [address] Scooby Irvin LDL CALC NORMAL SEE BELOW Normal [facility] Comment on above: Result Comment: <100 mg/dl OPTIMAL 100 - 129 mg/dl NEAR OR ABOVE OPTIMAL 130 - 159 mg/dl BORDERLINE HIGH 160 - 189 mg/dl HIGH >190 mg/dl VERY HIGH Performed By: #### L IPID, CMP, TSH #### [facility] [address] [address] [address] Scooby Irvin Triglyceride [Mass/Vol] 97 mg/dL Normal <=150 T [facility] Comment on above: Performed By: #### L IPID, CMP, TSH #### [facility] [address] [place] [address] Dr. Scooby Irvin VLDL CALC 19.4 mg/dL Normal [facility] Comment on above: Performed By: #### L IPID, CMP, TSH #### [facility] [address] [address] [address] Scooby Irvin PROF 14(COMP METB)on 022 Albumin [Mass/Vol] 4.0 g/dL Normal 3.5-5.0 [facility] Comment on above: Performed By: #### L IPID, CMP, TSH #### [facility] [address] [place] [address] Dr. Scooby Irvin Albumin/Globulin [Mass ratio] 1.1 {ratio} Normal [facility] Comment on above: Performed By: #### L IPID, CMP, TSH #### [facility] [address] [place] [address] Dr. Scooby Irvin ALP [Catalytic activity/Vol] 80 U/L Normal 38-126 [facility] Comment on above: Performed By: #### L IPID, CMP, TSH #### [facility] [address] [place] [address] Dr. Scooby Irvin ALT [Catalytic activity/Vol] 35 U/L Normal 9-52 [facility] Comment on above: Performed By: #### L IPID, CMP, TSH #### [facility] [address] [place] [address] Dr. Scooby Irvin Anion gap [Moles/Vol] 11.8 mmol/L Normal [facility] Comment on above: Performed By: #### L IPID, CMP, TSH #### [facility] [address] [place] [address] Dr. Scooby Irvin AST [Catalytic activity/Vol] 24 U/L Normal 14-36 [facility] Comment on above: Performed By: #### L IPID, CMP, TSH #### [facility] [address] [place] [address] Dr. Scooby Irvin Bilirubin [Mass/Vol] 0.5 mg/dL Normal 0.2-1.3 [facility] Comment on above: Performed By: #### L IPID, CMP, TSH #### [facility] [address] [place] [address] Dr. Scooby Irvin Calcium [Mass/Vol] 9.3 mg/dL Normal 8.4-10.2 [facility] Comment on above: Performed By: #### L IPID, CMP, TSH #### [facility] [address] [place] [address] Dr. Scooby Irvin Chloride [Moles/Vol] 105 mmol/L Normal 98-107 [facility] Comment on above: Performed By: #### L IPID, CMP, TSH #### [facility] [address] [place] [address] Dr. Scooby Irvin CO2 [Moles/Vol] 26.2 mmol/L Normal 22.0-30.0 [facility] Comment on above: Performed By: #### L IPID, CMP, TSH #### [facility] [address] [place] [address] Dr. Scooby Irvin Creatinine [Mass/Vol] 0.83 mg/dL Normal 0.52-1.04 [facility] Comment on above: Performed By: #### L IPID, CMP, TSH #### [facility] [address] [place] [address] Dr. Scooby Irvin EGFR-AF CITIZ[place] >60 Normal >=60 [facility] Comment on above: Performed By: #### L IPID, CMP, TSH #### [facility] [address] [place] [address] Dr. Scooby Irvin EGFR-NON AF CITIZEN [place] >60 Normal >=60 [facility] Comment on above: Performed By: #### L IPID, CMP, TSH #### [facility] [address] [place] [address] Dr. Scooby Irvin Globulin (S) [Mass/Vol] 3.8 g/dL [facility] Comment on above: Performed By: #### L IPID, CMP, TSH #### [facility] [address] [address] [address] Scooby Irvin Glucose [Mass/Vol] 112 mg/dL Critically high 74-106 [facility] Comment on above: Performed By: #### L IPID, CMP, TSH #### [facility] [address] [address] [address] Scooby Irvin Potassium [Moles/Vol] 4.0 mmol/L Normal 3.4-5.0 [facility] Comment on above: Performed By: #### L IPID, CMP, TSH #### [facility] [address] [place] [address] Dr. Scooby Irvin Protein [Mass/Vol] 7.8 g/dL Normal 6.1-8.2 [facility] Comment on above: Performed By: #### L IPID, CMP, TSH #### [facility] [address] [place] [address] Dr. Scooby Irvin Sodium [Moles/Vol] 139 mmol/L Normal 137-145 [facility] Comment on above: Performed By: #### L IPID, CMP, TSH #### [facility] [address] [place] [address] Dr. Scooby Irvin Urea nitrogen [Mass/Vol] 15.0 mg/dL Normal 7.0-17.0 [facility] Comment on above: Performed By: #### L IPID, CMP, TSH #### [facility] [address] [place] [address] Dr. Scooby Irvin Urea nitrogen/Creatinine [Mass ratio] 18.1 mg/mg Normal [facility] Comment on above: Performed By: #### L IPID, CMP, TSH #### [facility] [address] [place] [address] Dr. Scooby Irvin TSHon 03-09-2021 TSH 2.761 uIU/mL Normal 0.470-4.680 [facility] Comment on above: Performed By: #### L IPID, CMP, TSH #### [facility] [address] [place], [place] [address] Dr. Scooby Irvin TSH RANGE SEE BELOW Normal [facility] Comment on above: Result Comment: <0.3 4 UIU/ml HYPERTHYROID 0.34-5.60 UIU/ml EUTHYROID >5.60 UIU/ml HYPOTHYROID Performed By: #### L IPID, CMP, TSH #### [facility] [address] [address] [address] Scooby Irvin Vital Signs Date Time Vital Sign Value Performing Clinician Facility 09-04-2022 09:00-0400 Body height 140.97 cm Danyell Morales Other [facility] 09-04-2022 09:00-0400 Body mass index (BMI) [Ratio] 36.74 kg/m2 Danyell Morales Other [facility] 09-04-2022 09:00-0400 Body weight 73.03 kg Danyell Morales Other [facility] 09-04-2022 09:00-0400 Diastolic blood pressure 78 mm[Hg] Danyell Morales Other [facility] 09-04-2022 09:00-0400 SaO2% (BldA) [Mass fraction] 97 % Danyell Morales Other [facility] 09-04-2022 09:00-0400 Systolic blood pressure 132 mm[Hg] Danyell Morales Other [facility] 03-01-2022 10:30-0500 Body height 140.97 cm Danyell Morales Other [facility] 03-01-2022 10:30-0500 Body mass index (BMI) [Ratio] 36.06 kg/m2 Danyell Morales Other [facility] 03-01-2022 10:30-0500 Body weight 71.67 kg Danyell Morales Other [facility] 03-01-2022 10:30-0500 Diastolic blood pressure 84 mm[Hg] Danyell Morales Other [facility] 03-01-2022 10:30-0500 SaO2% (BldA) [Mass fraction] 98 % Danyell Morales Other [facility] 03-01-2022 10:30-0500 Systolic blood pressure 132 mm[Hg] Danyell Morales Other [facility] 11-08-2021 10:17-0400 Diastolic blood pressure 74 mm[Hg] Farooq SALAM [facility] 11-08-2021 10:17-0400 Mean blood pressure 99 mm[Hg] Farooq SALAM [facility] 11-08-2021 10:17-0400 Systolic blood pressure 148 mm[Hg] Farooq SALAM [facility] 11-08-2021 10:15-0400 Blood Pressure Location Farooq SALAM [facility] 11-08-2021 10:15-0400 Diastolic blood pressure 95 mm[Hg] Farooq SALAM [facility] 11-08-2021 10:15-0400 Heart rate 78 /min Farooq SALAM [facility] 11-08-2021 10:15-0400 Respiratory rate 16 /min Farooq SALAM [facility] 11-08-2021 10:15-0400 Systolic blood pressure 159 mm[Hg] Farooq SALAM [facility] 05-10-2021 11:11-0400 Diastolic blood pressure 90 mm[Hg] Farooq SALAM [facility] 05-10-2021 11:11-0400 Systolic blood pressure 180 mm[Hg] Farooq SALAM [facility] Encounters Encounter Date Encounter Type Care Provider Facility Start: 11-26-2023 ambulatory Facility:William Varma Start: 11-13-2023 End: 11-13-2023 [employer] Jasiel Malcolming RESERVATIONS CLERK Work Phone: [facility] Start: 11-13-2023 End: 11-13-2023 [employer] Jasiel Pompa Apling RESERVATIONS CLERK Work Phone: [facility] Start: 11-13-2023 End: 11-13-2023 Postop follow up visit related to original px Jasiel Pompa Apling RESERVATIONS CLERK Work Phone: [facility] Comment on above: Arthritis of left kn ee (Primary Dx); S/P left knee arthroscopy Start: 11-13-2023 End: 11-13-2023 ambulatory JASIEL B APLING Not Available Start: 10-16-2023 End: 10-16-2023 ambulatory JASIEL B APLING Not Available Start: 09-10-2023 End: 09-10-2023 ambulatory DANIELLE LOPEZ Not Available Start: 08-26-2023 End: 08-26-2023 ambulatory JASIEL B APLING Not Available Start: 03-07-2023 End: 03-07-2023 ambulatory Danyell Morales Other [facility] Other Start: 03-07-2023 Office outpatient vi sit 15 minutes Danyell Morales [facility] Start: 09-20-2022 End: 08-10-2023 ambulatory Danyell Morales Other [facility] Other Start: 09-20-2022 Telephone encounter Danyell Morales [facility] Start: 09-04-2022 End: 09-04-2022 ambulatory Danyell Morales Other [facility] Other Start: 09-04-2022 Patient encounter procedure Danyell Morales [facility] Start: 04-19-[address] DANYELL MORALES Facil ity:[facility] Start: 03-01-2022 End: 03-01-2022 ambulatory Danyell Morales Other [facility] Other Start: 03-01-2022 Office outpatient vi sit 15 minutes Danyell Morales [facility] Start: 01-18-2022 End: 01-19-[address] DANYELL MORALES Facility:[facility] Start: 11-21-2021 End: 11-22-[address]A Facility:[facility] Start: 11-08-2021 End: 11-08-2021 Patient encounter procedure Capri ROA [facility] Start: 10-19-2021 End: 10-20-[address] DANYELL MORALES Facility:[facility] Start: 09-27-2021 End: 09-28-[address] DANYELL MORALES Facility:[facility] Start: 09-26-2021 End: 09-26-[address] DANYELL MORALES Facility:[facility] Start: 09-25-2021 Encounter for preprocedural laboratory examination DR RADHA IRAHETA [facility] Start: 09-22-2021 End: 09-23-[address] DANYELL MORALES Facility:[facility] Start: 09-22-2021 End: 09-23-2021 Encounter for preprocedural laboratory examination DR DANYELL MORALES Facility:[facility] Start: 09-11-[address] DANYELL MORALES Facil ity:[facility] Start: 09-06-2021 End: 09-07-2021 ambulatory ROBERTO MCNALLY Facility:[facility] Start: 08-30-2021 Adult health examination Malia Morales Other [facility] Other Start: 06-22-2021 End: 06-23-2021 [address]A Facility:[facility] Start: 05-31-2021 End: 05-31-2021 ambulatory Luis Gutierrez Facility:[facility] Start: 05-26-2021 End: 05-26-2021 ambulatory Danyell Morales Facility:[facility] Start: 05-26-2021 End: 05-26-2021 Patient encounter procedure MD Cy Sears Work Phone: [facility] Start: 05-22-2021 End: 05-23-[address] DANYELL MORALES Facility:[facility] Start: 05-10-2021 End: 05-10-2021 Patient encounter procedure Capri ROA [facility] Start: 05-04-2021 End: 05-04-2021 ambulatory Cy Sears Facility:[facility] Start: 05-04-2021 End: 05-04-2021 Patient encounter procedure MD Cy Sears Work Phone: [facility] [place] Start: 04-20-2021 End: 04-21-[address]A Facility:[facility] Start: 04-01-2021 End: 04-02-[address] DANYELL MORALES Facility:[facility] Start: 03-23-2021 End: 03-24-[address] DANYELL MORALES Facility:[facility] Start: 03-09-2021 End: 03-10-[address] DANYELL MORALES Facility:[facility] Procedures Date Procedure Procedure Detail Performing Clinician Start: 09-04-2023 History of thyroidectomy Statu s post total thyroidectomy Jasiel Giordano NP Work Phone: Start: 05-31-2021 Antibody screen Adeline Gutierrez Comment on above: Order Comment: Trans fuse now? N Result Comment: PERF ORMED BY: [facility] [facility] [address] [place] [address] PATHOLOGIST PLACING JUDGE TRICIA OSHEA M.D. Start: 02-16-2020 Colonoscopy Jasiel milligan NP Work Phone: Start: 02-16-2020 Colonoscopy w/biopsy single/multiple Capri ROA Colonoscopy Capri ROA Screening for malign ant neoplasm of breast Danyell Morales Other Plan of Treatment Date Care Activity Detail Author Start: 02-15-2030 Screening for malign ant neoplasm of colon [facility] Start: 11-13-2023 End: 11-13-2023 Patient encounter procedure 11/13/2023 11:45 AM EDT Office Visit [facility] [address] [place] [id number] Jasiel Giordano NP [address] [place] [address] Arthritis of left knee (Primary Dx); S/P left knee arthroscopy [facility] Comment on above: Arthritis of left kn ee (Primary Dx); S/P left knee arthroscopy Start: 10-13-2023 Influenza vaccination Influenza Vacc ine (#1) [facility] Start: 1950 Screening for malign ant neoplasm of colon [facility] Immunizations Immunization Date Immunization Notes Care Provider Fa cility 12-03-2022 ABRYSVO - Respirator y syncytial virus (RSV), vaccine, bivalent, protein subunit RSV prefusion F, diluent reconstituted, 0.5 mL, PF Jasiel Giordano NP Work Phone: [facility] 12-03-2022 SARS-COV-2 (COVID-19 ) vaccine, mRNA, spike protein, LNP, PF, 50 mcg/0.5 mL Jasiel Giordano NP Work Phone: [facility] 11-07-2022 Influenza, Seasonal, Quadrivalent, Adjuvanted Jasiel Giordano NP Work Phone: [facility] 11-07-2022 influenza virus vaccine, unspecified formulation Jasiel Giordano NP Work Phone: [facility] 10-01-2022 zoster vaccine recombinant Jasiel Giordano RESERVATIONS CLERK Work Phone: [facility] 07-18-2022 zoster vaccine recombinant Jasiel Giordano RESERVATIONS CLERK Work Phone: [facility] 11-21-2021 Seasonal trivalent influenza vaccine, adjuvanted, preservative free Jasiel Giordano RESERVATIONS CLERK Work Phone: [facility] 12-09-2020 COVID-19 mRNA-1273 (Moderna) MD Cy Sears Work Phone: [facility] 11-15-2020 influenza virus vaccine, split virus (incl. purified surface antigen) Danyell Morales Other [facility] [employer] Other 11-15-2020 influenza virus vaccine, unspecified formulation Jasiel Giordano RESERVATIONS CLERK Work Phone: [facility] 11-11-2020 influenza virus vaccine, unspecified [facility] 04-26-2020 COVID-19 mRNA-1273 (Moderna) MD Cy Sears Work Phone: [facility] 03-23-2020 COVID-19 mRNA-1273 (Moderna) MD Cy Sears Work Phone: [facility] 11-20-2019 influenza virus vaccine, split virus (incl. purified surface antigen) Danyell Morales Other [facility] [employer] Other 11-20-2019 influenza virus vaccine, unspecified formulation Jasiel Giordano RESERVATIONS CLERK Work Phone: [facility] 07-09-2018 zoster vaccine, live Jasiel verdin RESERVATIONS CLERK Work Phone: [facility] 11-20-2017 pneumococcal polysaccharide vaccine, 23 valent Jasiel Giordano RESERVATIONS CLERK Work Phone: [facility] 11-14-2017 pneumococcal polysaccharide vaccine, 23 valent Jasiel Giordano RESERVATIONS CLERK Work Phone: [facility] 11-14-2017 Seasonal trivalent influenza vaccine, adjuvanted, preservative free Jasiel Giordano RESERVATIONS CLERK Work Phone: [facility] 10-24-2016 influenza virus vaccine, split virus (incl. purified surface antigen) Danyell Morales Other [facility] [employer] Other 10-24-2016 influenza, high dose seasonal, preservative-free Jasiel Giordano RESERVATIONS CLERK Work Phone: [facility] 10-24-2016 pneumococcal conjuga te vaccine, 13 valent Danyell Morales Other [facility] [employer] Other 11-08-2015 Seasonal trivalent influenza vaccine, adjuvanted, preservative free Jasiel Giordano RESERVATIONS CLERK Work Phone: [facility] 11-16-2014 influenza, seasonal, injectable, preservative free Jasiel Giordano RESERVATIONS CLERK Work Phone: [facility] 08-31-2014 tetanus and diphther ia toxoids, adsorbed, preservative free, for adult use (5 Lf of tetanus toxoid and 2 Lf of diphtheria toxoid) Jasiel Giordano RESERVATIONS CLERK Work Phone: [facility] 08-31-2014 tetanus toxoid, reduced diphtheria toxoid, and acellular pertussis vaccine, adsorbed Danyell Morales Other [facility] [employer] Other 11-30-2013 pneumococcal polysaccharide vaccine, 23 valent Danyell Morales Other [facility] [employer] Other 03-24-2013 zoster vaccine, live Jasiel verdin RESERVATIONS CLERK Work Phone: [facility] 11-11-2012 influenza, seasonal, injectable Jasiel Giordano RESERVATIONS CLERK Work Phone: [facility] 01-29-2003 hepatitis B vaccine, adult dosage Jasiel Giordano RESERVATIONS CLERK Work Phone: [facility] 08-10-2002 hepatitis B vaccine, adult dosage Jasiel Giordano RESERVATIONS CLERK Work Phone: [facility] 07-08-2002 hepatitis B vaccine, adult dosage Jasiel Giordano RESERVATIONS CLERK Work Phone: [facility] 07-08-2002 TD(adult) unspecifie d formulation Jasiel Giordano RESERVATIONS CLERK Work Phone: [facility] NEGATED: Highlighted row has not occurred!11-08-2021 influenza virus vaccine, unspecified formulation Farooq SALAM [facility] Payers Date Payer Category Payer Self-pay [id number] 2021 Private Health Insurance AETNA A [place] CITIZ[place] SUPPLEMENT [id number] 2021-Present [address] [place] [address] Supplement [id number] 2021 Private Health Insurance CLI [id number] 2013 Medicare MEDICARE MEDICAR E PART B [id number] 2013-Present [address] [address] [place] [address] Medicare [id number] 1959 Medicare [id number] 1959 Unknown [id number] 1948 Unknown [id number] 2.16.840.1.509315.3.579. 2.593 1948 Unknown [id number] 2.16.840.1.007135.3.579. 2.593 1948 Unknown [id number] 2.16.840.1.006025.3.579. 2.593 1948 Unknown [id number] 2.16.840.1.258396.3.579. 2.593 1948 Unknown [id number] 2.16.840.1.471015.3.579. 2.593 1948 Unknown [id number] 2.16.840.1.644477.3.579. 2.593 1948 Unknown [id number] 2.16.840.1.909102.3.579. 2.593 1948 Unknown [id number] 2.16.840.1.143553.3.579. 2.593 1948 Unknown [id number] 2.16.840.1.703992.3.579. 2.593 1948 Unknown [id number] 2.16.840.1.032925.3.579. 2.593 1948 Unknown [id number] 2.16.840.1.345223.3.579. 2.593 1948 Unknown [id number] 2.16.840.1.960077.3.579. 2.593 1948 Unknown [id number] 2.16.840.1.395820.3.579. 2.593 1948 Unknown [id number] 2.16.840.1.526340.3.579. 2.593 1948 Unknown [id number] 2.16.840.1.418671.3.579. 2.593 1948 Unknown [id number] 2.16.840.1.688903.3.579. 2.593 1948 Unknown [id number] 2.16.840.1.820766.3.579. 2.593 1948 Unknown [id number] 2.16.840.1.081645.3.579. 2.1259 1948 Unknown [id number] 2.16.840.1.378265.3.579. 2.1259 1948 Unknown [id number] 2.16.840.1.488648.3.579. 2.1259 1948 Unknown [id number] 2.16.840.1.479312.3.579. 2.1259 1948 Unknown [id number] 2.16.840.1.984517.3.579. 2.1259 Medicare Self Pay [id number] Unknown [id number] 2.16.840.1.600939.3.579. 2.531 Unknown [id number] 2.16.840.1.800930.3.579. 2.531 Unknown [id number] 2.16.840.1.957850.3.579. 2.531 Social History Date Type Detail Facility Tobacco smoking stat [facility] Unknown if ever smoked [facility] Work Phone: Start: 1950 Sex Assigned At Female F [facility] Start: 05-10-2021 End: 11-08-2021 Tobacco smoking status Heavy tobacco smoker (finding) [facility] Start: 09-10-2023 Sex Assigned At Female F [facility] Start: 05-26-2021 Tobacco smoking stat [email or web address]IS Smoker (finding) [facility] Start: 08-26-2023 Tobacco smoking stat [facility] Smokes tobacco daily [facility] History of tobacco use Cigarette Smoker [facility] Start: 08-26-2023 Tobacco use and exposure Smokeless tobacco non-user [facility] Start: 09-10-2023 Alcoholic beverage intake Current drinker of alcohol (finding) [facility] Start: 09-10-2023 History of Social function [facility] Start: 1950 Sex assigned at Not on file [facility] Functional Status Date Assessment Result Facility 11-08-2021 Functional Status N/A [facility] Clinical Notes 01-24-2021 to 10-09-2023 Jasiel Giordano NP - 11/13/2023 11:45 AM EDT Note Date & Type Note Facility 10-09-2023 History of Presen t illness Narrative Images from the original note were not included. Subjective Patient ID: Alexandra Cervantes is a 73 y.o. female. 5 weeks s/p LT knee medial compartment arthritis, medial meniscectomy, chalky deposits (gout/pseudogout) (DOS 10/09/23) sutures removed. She notes she is doing better since surgery.. Pain at rest 0/10, denies pain recently notes the more she moves the better it feels. she is taking advil prn for the pain in her body not necessarily for the knee. Using ice prn. Using voltaren gel prn. She notes the swelling is improving. Denies N/T. Occas giving out sensation. Objective Ortho Exam Knee Musculoskeletal Exam Inspection Left Erythema: none Edema: mild Ecchymosis: none Previous incision: arthroscopic portals Incision: well-healed Inspection additional comments: Nv intact, negative homans sign, no signs of infection Assessment/Plan Encounter Diagnoses: ICD-10-CM 1. Arthritis of left knee M17.12 2. S/P left knee arthroscopy Z98.890 Activities as tolerated, f/U prn documented in this encounter [facility] 03-07-2023 Evaluation note Encounter Date Diagnosis Assessment [...] continue to monitor through routine blood work [facility] 08-10-2023 Evaluation note* Encounter Date Diagnosis Assessment Notes Treatment Notes Treatment Clinical Notes Sep, Right foot pain (ICD-10 - M79.671) [facility] 07-25-2023 Evaluation note* Encounter Date Diagnosis [...] - E03.9) Chronic problem due for labs. [facility] 01-19-2023 Evaluation note* Encounter Date Diagnosis [...] - E78.5) Due for labs in summer. [facility] [id number] NoteCONSULTATION PROCEDURE DATE: 01/18/2022 PREOPERATIVE DIAGNOSIS: Left [...] will be followed up in the office.[id number] NoteCONSULTATION CONSULTATION DATE: 01/18/2022 HISTORY OF PRESENT [...] in three months' time, unless otherwise indicated.[id number] Evaluation + Plan note Diagnostic Tests Pending * CBC w/ Auto Diff 11/08/21 * Comprehensive Metabolic Panel 11/08/21 [facility] [id number] NoteCONSULTATION PROCEDURE DATE: 11/16/2021 PRE AND POSTOPERATIVE [...] will be followed up in the office.[facility] 10-19-2021 NoteCONSULTATION CONSULTATION DATE: 10/19/2021 This is [...] in three months' time unless otherwise indicated.[id number] NoteCONSULTATION CONSULTATION DATE: 09/06/2021 HISTORY OF PRESENT [...] 8/10. She has been following up with [facility] and had a benign fibroid tumor [...] procedure, and patient agrees to move forward.[id number] NoteCONSULTATION PAIN MANAGEMENT CONSULTATION HISTORY: This is [...] of care and will call when needed. [facility] Signed and Approved by: ROBERTO MCNALLY . 04/27/2021 12:41:00[facility]12-14-2021 Hospital Discharge instructions Follow Up Care 01/24/2021 10:04:31 With:Capri ROA MD, GAS, [facility] Address: [facility] [address] [place], [place] [address] [address]- When:6 months [facility] Evaluation + Plan note Future Appointments Appointment Date:11/08/2021 10:15:00 AM Scheduled Provider:Capri ROA MD Location:[facility] Appointment Type:[facility] Follow Up Future Scheduled Tests Laboratory* CBC w/ Indices 07/25/20 * Comprehensive Metabolic Panel 07/25/20 [facility] Evaluation noteNo assessment information available [facility] Work Phone: Evaluation note* Diagnosis Arthritis of left knee- Primary S/P left knee arthroscopy [facility] this [facility] - Reported* Type Description Date Medical History GERD Medical History Hypothyroid Medical History Depression Surgical History Appendectomy Surgical History Tubal Ligation Surgical History Right carpal tunnel Surgical History Right finger Surgical History 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 Hospitalization History See past surgical hx [facility] Hospital course Narrative No data available for this section [facility] Hospital Discharge instructions No data available for this section [facility] Progress note No data available for this section [facility] Chief Complaint and Reason for [...] Right foot pain (M79 .671) Referral Organization [facility] Referring Provider First Name Danyell Referring Provider Last Name Carmen Referring Provider Specialty [facility] Referred Organization [facility] Referred Provider Seymour Johnson Referred Address [address] [place], [place],[address] Referred Provider Specialty Podiatry - S urgical [...] Active Luis Gutierrez DO Attending Provider Active Distiller Relationship Specialty Start Date End Date Danyell Morales MD [address] [place] [id number] PCP - General Family Medicine 08/26/23 Distiller Relationship Specialty Start Date End Date Danyell Morales MD [address] [place] [id number] PCP - General Family Medicine 08/26/23 Goals (unrecognized section and content) Goals may be documented in a n alternate section No data available for this sectionGoals may be documented in an alternate section No data available for this sectionNo InformationNo InformationNo InformationNo Information INFORMATION SOURCE (unrecogn ized section and content) DATE CREATED AUTHOR 05/23/2021 [facility] Specialist DATE CREATED AUTHOR AUTHOR'S ORGANIZ ATION 01/23/2022 [facility] DATE CREATED AUTHOR AUTHOR'S ORGANIZ ATION 03/17/2022 [facility] DATE CREATED AUTHOR AUTHOR'S ORGANIZ ATION 11/15/2023 [facility] d[facility]ists [facility] DATE CREATED AUTHOR AUTHOR'S ORGANIZ ATION 11/28/2023 [facility] REASON FOR VISIT (unrecogniz ed section and content) Reason Comments Follow-up FOR RECORDS PERTAINING TO PATIENTS WHO ARE [...]
[2023-11-29 10:19] VITALS: O2SAT 98
[2023-11-29 10:36] LABS: Hematocrit 33.6 % (36.0-48.0); Hemoglobin 11.1 g/dL (12.0-16.0); Mean Corpuscular Hemoglobin 27.4 pg (26.7-34.0); Mean Platelet Volume 8.7 fL (9.5-13.5); Platelet Count 425 10^3/uL (150-450); Red Blood Count 4.05 10^6/uL (4.20-5.40); Red Cell Distribution Width 14.6 % (11.0-15.0); White Blood Count 10.7 10^3/uL (4.0-11.0)
--- NOTE | 2023-11-29 10:41 | ED_ITS ---
HPI - Abdominal Pain General Chief Complaint: Abdominal Pain Stated Complaint: BOWEL PROBLEMS Time Seen by Provider: 11/29/23 09:52 Source: patient Mode of arrival: walk-in Limitations: no limitations History of Present Illness HPI narrative: The patient presented to us with no abdominal pain only diarrhea with no nausea no vomiting for the last 3 to 4 weeks She mentioned that she initially had COVID but after that she continued to have symptoms She never seen any blood in stool she also mentioned that she have a history of ulcerative colitis but that was few years ago and she never seen a clinical massage therapist since then There is no fever or any abdominal pain Related Data Home Medications ?Medication ?Instructions ?Recorded ?Confirmed alprazolam 0.5 mg tablet 0.5 mg PO DAILY 09/10/23 11/29/23 baclofen 10 mg tablet 10 mg PO DAILY PRN spasms 09/10/23 10/29/23 escitalopram oxalate 20 mg tablet 20 mg PO DAILY 09/10/23 11/29/23 ibuprofen 400 mg tablet 400 mg PO TID 09/10/23 10/29/23 levothyroxine 75 mcg tablet 75 mcg PO DAILY 09/10/23 11/29/23 omeprazole 40 mg capsule,delayed 40 mg PO DAILY 09/10/23 11/29/23 release simvastatin 40 mg tablet 40 mg PO DAILY 09/10/23 11/29/23 sulfasalazine 500 mg tablet 0.5 g PO DAILY 09/10/23 10/29/23 zonisamide 50 mg capsule 50 mg PO DAILY 09/10/23 11/29/23 Previous Rx's ?Medication ?Instructions ?Recorded magnesium oxide 400 mg PO DAILY #7 caps 11/29/23 potassium chloride 20 mEq oral 40 meq PO DAILY 3 days #6 ea 11/29/23 packet Allergies Allergy/AdvReac Type Severity Reaction Status Date / Time No Known Drug Allergies Allergy Verified 11/29/23 09:51 Review of Systems ROS Status of ROS 10 or more systems reviewed and unremark able except as noted in history and below [facility] Medical History (Updated 11/29/23 @ 11:35 by Nhi Jane MD) Hypothyroid ?E03.9 - Hypothyroidism, unspecified (ICD-10) Acid reflux ?K21.9 - Gastro-esophageal reflux disease without esophagitis (ICD-10) Tumor, thyroid ?D49.7 - Neoplasm of unspecified behavior of endocrine glands and other parts of nervous system (ICD-10) Carpal tunnel syndrome ?G56.00 - Carpal tunnel syndrome, unspecified upper limb (ICD-10) Sleep apnea ?G47.30 - Sleep apnea, unspecified (ICD-10) Surgical History History of tubal ligation ?Z98.51 - Tubal ligation status (ICD-10) History of appendectomy ?Z90.49 - Acquired absence of other specified parts of digestive tract (ICD- 10) History of carpal tunnel release ?Z98.890 - Other specified postprocedural states (ICD-10) Social History Little interest or pleasure in doing things: not at all Feeling down, depressed, or hopeless: not at all Exam Narrative Exam Narrative: Nurses notes and vital signs reviewed and patient is not hypoxic. General: Well-appearing and in no apparent distress. Skin: Warm, dry, no pallor noted. No rash. Head: Normocephalic, atraumatic. Neck: Supple, non-tender. Eye: Pupils are equal, round and EOMI. No scleral icterus. Ears, Nose, Mouth, and Throat: TM are clear, no nasal mucosal hypertrophy. Oral mucosa is moist, no posterior oropharynx erythema, uvula is mid-line Cardiovascular: Regular Rate and Rhythm without murmur, gallop or rub. Respiratory: No accessory muscle use or respiratory distress. Lungs are clear to auscultation, no wheezing, rales or rhonchi Chest Wall: no tenderness Back: No midline thoracic or lumbar vertebral tenderness. No CVA tenderness Musculoskeletal: normal ROM, no calf or popliteal tenderness, no lower extremity edema/swelling GI: Abdomen is soft, non-distended. Normal bowel sounds. No masses appreciated. No tenderness to palpation. No rebound, guarding, or rigidity noted. Neurological: A&O x4. No cranial nerve dysfunction observed. No truncal ataxia. Moves all extremities. Sensation intact. Psychiatric: Cooperative and interactive. Normal mood and affect. Constitutional Vital Signs, click to edit/add: Last Vital Signs Temp 98.1 F 11/29/23 09:52 Pulse 92 H 11/29/23 09:52 Resp 20 11/29/23 09:52 BP 171/71 H 11/29/23 09:52 Pulse Ox 98 11/29/23 10:19 O2 Del Method Room Air 11/29/23 10:19 Course Vital Signs Vital signs: Vital Signs Temperature 98.1 F 11/29/23 09:52 Pulse Rate 92 H 11/29/23 09:52 Respiratory Rate 20 11/29/23 09:52 Blood Pressure 171/71 H 11/29/23 09:52 Pulse Oximetry 96 11/29/23 09:52 Oxygen Delivery Method Room Air 11/29/23 09:52 Temperature 98.1 F 11/29/23 09:52 Pulse Rate 92 H 11/29/23 09:52 Respiratory Rate 20 11/29/23 09:52 Blood Pressure 171/71 H 11/29/23 09:52 Pulse Oximetry 98 11/29/23 10:19 Oxygen Delivery Method Room Air 11/29/23 10:19 MDM - Abdominal Pain MDM Narrative Medical decision making narrative: EKG showing sinus rhythm with a heart rate of [address] elevation or depression The patient blood workup shows a low potassium with the 2.9 potassium that was repleted with p.o. potassium in the ER the EKG did not show any hyperkalemic changes Patient also had a low magnesium that was repleted with p.o. magnesium The patient referred to gastroenterology as outpatient she also was instructed to come back in case of any fever or any pain The patient is to follow up with primary care physician in next 2-3 days or to return to the emergency department should any of the signs or symptoms worsen or new symptoms develop. The patient agrees with the following Diagnosis and Treatment plan and the patient will be discharged home. Lab Data Labs: Lab Results 11/29/23 Range/Units 10:15 WBC 10.7 (4.0-11.0) 10^3/uL RBC 4.05 L (4.20-5.40) 10^6/uL Hgb 11.1 L (12.0-16.0) g/dL Hct 33.6 L (36.0-48.0) % MCV 83.0 (81.0-99.0) fL MCH 27.4 (26.7-34.0) pg MCHC 33.0 (29.9-35.2) g/dL RDW 14.6 (11.0-15.0) % Plt Count 425 (150-450) 10^3/uL MPV 8.7 L (9.5-13.5) fL Seg Neuts % (Manual) 69.0 (43.0-75.0) Band Neutrophils % 5.0 (0-5) % Lymphocytes % (Manual) 11.0 L (20.5-60.0) % Monocytes % (Manual) 10.0 (1.7-12.0) % Eosinophils % (Manual) 0.0 L (0.9-7.0) % Basophils % (Manual) 0.0 L (0.2-2.0) % Metamyelocytes % 4.0 Myelocytes % 1.0 Neutrophils # (Manual) 7.38 H (1.4-6.5) 10^3/uL Band Neutrophils # 0.5 H (0.0-0.3) 10^3/uL Lymphocytes # (Manual) 1.17 L (1.20-3.80) 10^3/uL Monocytes # (Manual) 1.07 H (0.30-0.80) 10^3/uL Eosinophils # (Manual) 0.00 (0.00-0.70) 10^3/uL Basophils # (Manual) 0.00 (0.00-0.10) 10^3/uL Metamyelocytes # 0.42 Myelocytes # 0.10 Toxic Granulation 1+ Dohle Bodies 1+ Sodium 133 L (136-145) mmol/L Potassium 2.9 L* (3.5-5.1) mmol/L Chloride 97 L (98-107) mmol/L Carbon Dioxide 24.7 (21.0-32.0) mmol/L Anion Gap 14.2 BUN 5.0 L (7.0-18.0) mg/dL Creatinine 0.78 (0.55-1.02) mg/dL Est GFR ( Amer) >60 (>=60 mL/min/1.73m^2) Est GFR (Non-Af Amer) >60 (>=60 mL/min/1.73m^2) BUN/Creatinine Ratio 6.4 Glucose 173 H (74-106) mg/dL Calcium 8.8 (8.5-10.1) mg/dL Magnesium 1.7 L (1.8-2.4) mg/dL Total Bilirubin 0.5 (0.2-1.0) mg/dL AST 26 (15-37) U/L ALT 31 (14-59) U/L Alkaline Phosphatase 113 (46-116) U/L Total Protein 7.0 (6.4-8.2) g/dL Albumin 1.9 L (3.4-5.0) g/dL Globulin 5.1 g/dL Albumin/Globulin Ratio 0.4 Discharge Plan Discharge Chief Complaint: Abdominal Pain Clinical Impression: Chronic diarrhea, Hypomagnesemia, Hypokalemia Patient Disposition: Home, Self-Care Time of Disposition Decision: 11:35 Condition: Good Prescriptions / Home Meds: New potassium chloride 20 mEq packet 40 meq PO DAILY 3 Days Qty: 6 0RF magnesium oxide 400 mg magnesium capsule 400 mg PO DAILY Qty: 7 0RF No Action omeprazole 40 mg capsule,delayed release(DR/EC) 40 mg PO DAILY simvastatin 40 mg tablet 40 mg PO DAILY baclofen 10 mg tablet 10 mg PO DAILY PRN (Reason: spasms) levothyroxine 75 mcg tablet 75 mcg PO DAILY alprazolam 0.5 mg tablet 0.5 mg PO DAILY escitalopram oxalate 20 mg tablet 20 mg PO DAILY sulfasalazine 500 mg tablet 0.5 g PO DAILY Rx Instructions: give with food (meal/snack) ibuprofen 400 mg tablet 400 mg PO TID zonisamide 50 mg capsule 50 mg PO DAILY Print Language: Iranian Instructions: Hypokalemia (ED), Chronic Diarrhea (DC) Referrals: Dr Reynaldo Morgan [Other] - [address] Capri Fuller [Other] - 1 week Danyell Kelly MD [Primary Care Provider] - 1 week Discharge Date/Time: 11/29/23 11:58
[2023-11-29 10:52] LABS: Alanine Aminotransferase 31 U/L (14-59); Albumin Globulin Ratio 0.4; Albumin Level 1.9 g/dL (3.4-5.0); Alkaline Phosphatase 113 U/L (46-116); Anion Gap 14.2; Aspartate Amino Transferase 26 U/L (15-37); BUN Creatinine Ratio 6.4; Bilirubin Total 0.5 mg/dL (0.2-1.0); Calcium 8.8 mg/dL (8.5-10.1); Carbon Dioxide 24.7 mmol/L (21.0-32.0); Chloride 97 mmol/L (98-107); Estimated GFR (African America >60 (>=60 mL/min/1.73m^2); Estimated GFR (Non-African Ame >60 (>=60 mL/min/1.73m^2); Globulin 5.1 g/dL; Glucose 173 mg/dL (74-106); Magnesium 1.7 mg/dL (1.8-2.4); Sodium 133 mmol/L (136-145)
[2023-11-29 10:58] LABS: Potassium 2.9 mmol/L (3.5-5.1)
--- NOTE | 2023-11-29 10:58 | ECG_ITS ---
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
[2023-11-29] MEDS: POTASSIUM BICARBONATE/CIT 25 MEQ TABLET EFF 50 MEQ PO (11:09)
[2023-11-29 11:15] LABS: Band Neutrophils Absolute 0.5 10^3/uL (0.0-0.3); Lymphocytes Absolute Manual 1.17 10^3/uL (1.20-3.80); Monocytes Absolute Manual 1.07 10^3/uL (0.30-0.80); Segmented Neut Absolute Manual 7.38 10^3/uL (1.4-6.5)
[2023-11-29 11:16] LABS: Metamyelocytes Absolute Manual 0.42; Toxic Granulation 1+
[2023-11-29 11:17] LABS: Dohle Bodies 1+
== END 2023-11-29 11:58 | disposition home or self-care (01) ==
PROVIDERS: Emergency Provider Emergency Medicine; PCP Family Medicine
DX: K52.9 Noninfective gastroenteritis and colitis, unspecified (principal); E83.42 Hypomagnesemia; E87.6 Hypokalemia
CPT/HCPCS: 36415; 80053; 83735; 85007; 85027; 93005; 99284

== ENCOUNTER 2024-02-20 09:28 | Outpatient (OUT) | payer MEDICARE, OTHER, SELFPAY ==
--- NOTE | 2024-02-20 10:07 | P.CN_ITS ---
Consult Note: HPI Data of Consult Patient: known to practice within the last 3 years Requesting Physician: Renee Bernal NP Primary Care Provider: Danyell Kelly MD Consult Narrative Reason for consult: MRI f/u Narrative: Tisha Cervantes a pleasant 73 year old female presents for evaluation of chronic right foot pain secondary to lumbar radiculopathy. Patient has failed to benefit from >6 weeks of PT, tylenol, nsaids, and topical voltaren cream. Patient currently utilizing aleve PRN, baclofen PRN, zonegran 100mg HS. Patient previously underwent L5/S1 TAMMY with moderate ongoing relief per pt. shes noticing improvement in ability to stand and walk. Pain today 2/10 increasing to 4/10 at times. cc:: CC: Renee Bernal NP Review of Systems ROS Status of ROS 10 or more systems reviewed and unremark able except as noted in history and below Musculoskeletal Reports: extremity pain PFSH PFSH Medical History (Updated 11/29/23 @ 11:35 by Nhi Jane MD) Hypothyroid ?E03.9 - Hypothyroidism, unspecified (ICD-10) Acid reflux ?K21.9 - Gastro-esophageal reflux disease without esophagitis (ICD-10) Tumor, thyroid ?D49.7 - Neoplasm of unspecified behavior of endocrine glands and other parts of nervous system (ICD-10) Carpal tunnel syndrome ?G56.00 - Carpal tunnel syndrome, unspecified upper limb (ICD-10) Sleep apnea ?G47.30 - Sleep apnea, unspecified (ICD-10) Surgical History History of tubal ligation ?Z98.51 - Tubal ligation status (ICD-10) History of appendectomy ?Z90.49 - Acquired absence of other specified parts of digestive tract (ICD- 10) History of carpal tunnel release ?Z98.890 - Other specified postprocedural states (ICD-10) Social History Little interest or pleasure in doing things: not at all Feeling down, depressed, or hopeless: not at all Meds Home Medications and Allergies Home Medications ?Medication ?Instructions ?Recorded ?Confirmed ?Type alprazolam 0.5 mg tablet 0.5 mg PO DAILY 09/10/23 11/29/23 History baclofen 10 mg tablet 10 mg PO DAILY PRN spasms 09/10/23 10/29/23 History escitalopram oxalate 20 mg tablet 20 mg PO DAILY 09/10/23 11/29/23 History ibuprofen 400 mg tablet 400 mg PO TID 09/10/23 10/29/23 History levothyroxine 75 mcg tablet 75 mcg PO DAILY 09/10/23 11/29/23 History omeprazole 40 mg capsule,delayed 40 mg PO DAILY 09/10/23 11/29/23 History release simvastatin 40 mg tablet 40 mg PO DAILY 09/10/23 11/29/23 History sulfasalazine 500 mg tablet 0.5 g PO DAILY 09/10/23 10/29/23 History zonisamide 50 mg capsule 50 mg PO DAILY 09/10/23 11/29/23 History magnesium oxide 400 mg PO DAILY #7 caps 11/29/23 Rx potassium chloride 20 mEq oral 40 meq PO DAILY 3 days #6 ea 11/29/23 Rx packet Allergies Allergy/AdvReac Type Severity Reaction Status Date / Time No Known Drug Allergies Allergy Verified 11/29/23 09:51 Exam Constitutional Documenting provider has reviewed patient's vital signs: yes Common normals: no apparent distress, oriented x3, healthy appearing, alert and well nourished General appearance: cooperative HENMT Common normals: normocephalic, hearing grossly normal bilaterally and moist oral mucous membranes Head and scalp: normocephalic Eye Common normals: PERRL Pupil: PERRL Neck & C-Spine Common normals: full ROM General: normal visual inspection Chest Common normals: inspection of chest normal Respiratory Common normals: normal respiratory effort, no retractions and no use of accessory muscles Back & Pelvis Lumbar spine/lower back: ROM limited, pain with ROM and straight leg raise negative bilaterally Sacroiliac joints: SI joints normal Other: positive facet loading strength 5/5 in BLE sensation intact BLE Neuro Common normals: oriented x3, CN's II-XII intact bilaterally, moves all extremities, no focal motor deficits, no sensory deficits noted and deep tendon reflexes 2+ bilaterally Sensorium/orientation: alert Motor exam: strength 5/5 throughout and no movement abnormalities noted Psych Common normals: mental status grossly normal, thought process normal, cooperati ve, affect normal, speech normal and activity/motor behavior normal Speech: normal speech Thought process: normal thought process Results Additional Findings Additional findings: If on a controlled substance or opioids, I have checked an [place] report on this patient and there are no aberrancies noted in the prescribing history.??If on a controlled substance or opioid a drug screen was completed and reviewed within the last year, and if there has not been a drug screen completed we ordered one today to monitor higher risk, state monitored pain medication use. As part of providing excellent, safe, comprehensive care, the following was completed at our patient's visit: 1. A medication reconciliation and review to ensure accurate knowledge of current/active medications, including asking our patients to inform us about any [id number] medications or herbal remedies/nutritional supplements/alternative remedies. 2. A review to specifically ensure our patients have had annual screening for screening for depression, screening for tobacco use, and screening for unhealthy alcohol use. For concerning screenings had a discussion with the patient, provided patient education, and recommended follow-up with primary care provider when appropriate. If patient noted with a risk of falling, they received education on strength, gait, and balance training to prevent future risk of falling. Assessment and Plan Assessment and Plan (1) Lumbar radiculopathy: (2) Lumbar degenerative disc disease: (3) Spondylolisthesis: Plan continue current medications f/u 6 months, sooner if needed
== END 2024-02-20 09:29 | disposition home or self-care (01) ==
LOC: PM 09:29
PROVIDERS: PCP Family Medicine; Visit Provider Nurse Practitioner
DX: M54.16 Radiculopathy, lumbar region (principal); M51.369 Other intervertebral disc degeneration, lumbar region without mention of lumbar back pain or lower extremity pain; M43.16 Spondylolisthesis, lumbar region
CPT/HCPCS: G0463

== ENCOUNTER 2024-02-25 08:23 | Outpatient (OUT) | payer MEDICARE, OTHER, SELFPAY ==
--- NOTE | 2024-02-25 08:27 | MR_ITS ---
[place] [id number] Patient Name: ALEXANDRA GARDNER MRN: [id number] date: 1950 Sex: F Assigned Patient Location: MRI Current Patient Location: MRI Accession/Order Number: [id number] Exam Date: 02/25/2024 08:45 Report Date: 02/25/2024 10:02 At the request of: JASIEL Pompa APLING Procedure: MR knee LT wo con EXAM: MR knee LT wo con HISTORY: Internal Derangement Of Left Knee COMPARISON: 09/03/2023 TECHNIQUE: MRI images obtained with multiple sequences. MRI of the left knee without contrast. Sequences obtained by standard department protocol. FINDINGS: Anterior cruciate and posterior cruciate ligaments are intact. Medial collateral ligament and lateral supporting structures are intact. Radial tear through the posterior root of the medial meniscus (sagittal PD fat-sat image 19, coronal PD fat-sat image 19). Chondral thinning of the medial compartment. Lateral meniscus is intact. Lateral compartment articular cartilage is preserved. Extensor mechanism is intact. Full-thickness chondral fissuring at the patellar median ridge. Trochlear articular cartilage is preserved. Small to moderate popliteal cyst. Nonspecific subcutaneous soft tissue edema anterior to the knee joint. Small knee joint effusion. MR/MR knee LT wo con IMPRESSION: 1. Anterior cruciate and posterior cruciate ligaments are intact. 2. Radial tear through the posterior root of the medial meniscus (sagittal PD fat-sat image 19, coronal PD fat-sat image 19). 3. Full-thickness chondral fissure at the patellar median ridge. 4. Small knee joint effusion. Electronically authenticated by: NENO CAGLE Date: 02/25/2024 10:02
== END 2024-02-25 08:24 | disposition home or self-care (01) ==
LOC: MRI 08:23
PROVIDERS: PCP Family Medicine; Visit Provider Nurse Practitioner Family
DX: M23.92 Unspecified internal derangement of left knee (principal); S83.242A Other tear of medial meniscus, current injury, left knee, initial encounter; M25.462 Effusion, left knee
CPT/HCPCS: 73721

== ENCOUNTER 2024-03-25 14:36 | Outpatient (OUT) | payer MEDICARE, OTHER, SELFPAY ==
--- OUTSIDE RECORDS SUMMARY | 2024-03-25 14:55 | XMS_ITS | CCD ---
Author Organization [facility] Care Team Providers Care Human Resources Clerk Name Role Phone MD Cy Sears Attending Provider [phone] MD Laurita Morales Primary Care Provider LAURITA MORALES Primary Care Physician [phone] DO Luis Gutierrez Attending Provider CARMEN, DR LAURITA Persaud Attending Unavailable MORALES, DR LAURITA Persaud Admitting Unavailable MORALES, DR LAURITA Persaud Primary Care Unavailable ESTEVAN, DR FUENTES Salas Consulting Unavailable MORALES, DR LAURITA Persaud Consulting Unavailable MORALES, DR LAURITA Persaud Attending Unavailable MORALES, DR LAURITA Persaud Admitting Unavailable MORALES, DR LAURITA Persaud Primary Care Unavailable MORALES, DR LAURITA Persaud Consulting Unavailable SALAM, CAPRI Consulting Unavailable SALAM, CAPRI Admitting Unavailable SALAM, CAPRI Attending Unavailable MORALES, DR LAURITA Persaud Primary Care Unavailable MORALES, DR LAURITA Persaud Primary Care Unavailable MORALES, DR LAURITA Persaud Admitting Unavailable MORALES, DR LAURITA Persaud Consulting Unavailable MORALES, DR LAURITA Persaud Attending Unavailable MORALES, DR LAURITA Persaud Primary Care Unavailable ESEQUIEL, DR RADHA Whitfield Admitting Unavailable IRAHETA, DR RADHA Whitfield Attending Unavailable ESEQUIEL, DR RADHA Whitfield Consulting Unavailable MORALES, DR LAURITA Persaud Attending Unavailable MORALES, DR LAURITA Persaud Admitting Unavailable MORALES, DR LAURITA Persaud Consulting Unavailable MORALES, DR LAURITA Persaud Primary Care Unavailable MORALES, DR LAURITA Persaud Primary Care Unavailable ESEQUIEL, DR RADHA Whitfield Attending Unavailable ESEQUIEL, DR RADHA Whitfield Admitting Unavailable ROBERTO MCNALLY Consulting Unavailable SALAM, CAPRI Admitting Unavailable MORALES, DR LAURITA Persaud Primary Care Unavailable SALAM, CAPRI Attending Unavailable DR LUIS GUTIERREZ Consulting Unavailable MORALES, DR LAURITA Persaud Primary Care Unavailable MORALES, DR LAURITA Persaud Admitting Unavailable MORALES, DR LAURITA Persaud Attending Unavailable PADRONI, DR LONNY Wiggins Consulting Unavailable MORALES, DR LAURITA Persaud Consulting Unavailable MORALES, DR LAURITA Persaud Primary Care Unavailable ESEQUIEL, DR RADHA Whitfield Attending Unavailable ESEQUIEL, DR RADHA Whitfield Consulting Unavailable ESEQUIEL, DR RADHA Whitfield Admitting Unavailable SABINA STONE Consulting Unavailable MORALES, DR LAURITA Persaud Primary Care Unavailable ESEQUIEL, DR RADHA Whitfield Admitting Unavailable IRAHETA, DR RADHA Whitfield Attending Unavailable MCNALLY, ROBERTO Consulting Unavailable MORALES, DR LAURITA Persaud Primary Care Unavailable ESEQUIEL, DR RADHA Whitfield Attending Unavailable ESEQUIEL, DR RADHA Whitfield Admitting Unavailable MORALES, DR LAURITA Persaud Primary Care Unavailable IRAHETA, DR RADHA Whitfield Admitting Unavailable IRAHETA, DR RADHA Whitfield Attending Unavailable IRAHETA, DR RADHA Whitfield Consulting Unavailable MCNALLY, ROBERTO Consulting Unavailable MCNALLY, ROBERTO Consulting Unavailable MORALES, DR LAURITA Persaud Primary Care Unavailable ESEQUIEL, DR RADHA Whitfield Attending Unavailable ESEQUIEL, DR RADHA Whitfield Admitting Unavailable MORALES, DR LAURITA Persaud Primary Care Unavailable IRAHETA, DR RADHA Whitfield Attending Unavailable ESEQUIEL, DR RADHA Whitfield Admitting Unavailable SALAM, FAROOQ Admitting Unavailable MORALES, DR LAURITA Persaud Primary Care Unavailable SALAM, FAROOQ Attending Unavailable SALAM, FAROOQ Consulting Unavailable MORALES, DR LAURITA Persaud Primary Care Unavailable MISC, DOCTOR Admitting Unavailable MISC, DR HIDALGO Attending Unavailable MISC, DR HIDALGO Consulting Unavailable Luis Gutierrez Admitting Unavailable Laurita Morales Primary Care Unavailable Luis Gutierrez Attending Unavailable Cy Sears Attending Unavailable Cy Sears Admitting Unavailable Laurita Moraels Primary Care Unavailable Laurita Morales Primary Care Unavailable Luis Gutierrez Attending Unavailable Luis Gutierrez Admitting Unavailable Laurita Morales Unavailable Laurita Morales MD Primary Care Provider [phone] Martin Tatum Attending Unavaila ble Sarmini, Martin Felicianoal Admitting Unavaila ble Sarmini, Martin Talal Attending Unavaila ble Sarmini, Martin Khan Attending Unavaila ble Sarmini, Martin Talal Admitting Unavaila ble Sarmini, Martin Khan Attending Unavaila ble Sarmini, Martin Talal Admitting Unavaila ble Sarmini, Martin Talgail Attending Unavaila pato GUERRERO JR., GEORGE C Attending Unavaila ADALI Martin Attending Unavailable ADALI GIORDANO Referring Unavailable DANIELLE CURRAN Attending Unavailable ADALI GIORDANO Attending Unavailable ADALI GIORDANO Attending Unavailable ABHI RAMIRES Attending Unavailable ADALI GIORDANO Attending Unavailable ADALI GIORDANO Attending Unavailable Martin Tatum Attending Unavaila ble Allergies Allergy Classification Reported Allergen(s) Allergy Type Date of Onset Reaction(s) Facility (20 sources) varenicline; Translations: [varenicline] Drug Allergy 08-25-2023 Unknown [facility] Comment on above: Outside Source Comme nt: Other Reaction(s): Unknown Medications Current Medications Medication Drug Class(es) Dates Sig (Normalized) Sig (Original) acetaminophen 325 mg / HYDROcodone bitartrate 5 mg oral tablet (1 source) Opioid Agonist Start: 10-08-2023 End: 10-11-2023 take 1 tablet by mouth every six hours for pain HYDROcodone-acetami nophen ([place]) 5-325 MG tablet Indications: Post-op pain Take 1 tablet by mouth every 6 (six) hours if needed for severe pain for up to 3 days 12 tablet 10/08/2023 10/11/2023 Active Alive Women's 50+ Complete Multivitamin (6 sources) Start: 12-04-2023 Alive Women's 50+ Complete Multivitamin Oral, Daily, Refill(s) 0, Prophylaxis Start Date: 12/04/23 Status: Ordered Start: 12-04-2023 Alive Women's 50+ Complete Multivitamin Oral, Daily, Refill(s) 0 Start Date: 12/04/23 Status: Ordered ALPRAZolam 0.5 mg oral tablet (20 sources) Benzodiazepine Start: 06-27-2023 ALPRAZolam (Xa nax) 0.5 MG tablet Take 0.5 mg by mouth as needed at bedtime 06/27/2023 Active Start: 02-27-2023 Start: 09-03-2022 ALPRAZolam 0.5 mg TAKE ONE TABLET BY MOUTH TWICE A DAY NEEDED FOR 30 DAYS for Aug, Active Start: 03-01-2022 take 1 tablet by maia twice daily as needed ALPRAZolam 0.5 mg TAKE ONE TABLET BY MOUTH TWICE A DAY NEEDED for Feb, Active Start: 05-26-2021 take 0.5 mg by mouth twice shakira ly Alprazolam Active 0.5 MG PO Twice daily May 26, 2021 2:53pm Start: 01-28-2020 alprazolam Ora l, Refills(s) 0, Anxiety Start Date: 01/28/20 Status: Ordered Start: 01-28-2020 alprazolam Ora l, Refills(s) 0 Start Date: 01/28/20 Status: Ordered Ascorbic Acid / Beta Carotene / cuprous oxide / Lutein / sodium selenate / Vitamin E / Zinc Oxide (6 sources) Vitamin C Start: 12-04-2023 Ocuvite Adult 50+ Refill(s) 0, Prophylaxis Start Date: 12/04/23 Status: Ordered Start: 12-04-2023 Ocuvite Adult 50+ Refill(s) 0 Start Date: 12/04/23 Status: Ordered baclofen 10 mg oral tablet (20 sources) gamma-Aminobutyric Acid-ergic Agonist Start: 05-26-2021 take 10 mg by mouth twice daily Baclofen Active 10 MG PO Twice daily May 26, 2021 2:53pm Start: 01-28-2020 baclofen Oral, TID, Refills(s) 0, Muscle pain Start Date: 01/28/20 Status: Ordered busPIRone hydrochloride 15 m g oral tablet (3 sources) Start: 03-20-2024 busPIRone 15 m g Tab Refills(s) 0 Start Date: 03/20/24 Status: Ordered Start: 02-19-2024 take 1 tablet by maia th in the morning busPIRone (Buspar) 15 MG tablet Take 15 mg by mouth in the morning and 15 mg before bedtime. 02/19/2024 Active calcium citrate 950 mg oral tablet (8 sources) Start: 01-28-2020 take 1 mg by [...] day Active escitalopram 20 mg oral tablet (20 sources) Serotonin Reuptake Inhibitor Start: 05-26-2021 take [...] Daily, # 30 tab(s), Refills(s) 0, Pharmacy: [facility], 150, cm, 07/25/20 14:29:00 EDT, Height/Length Dosing, 69.9, kg, 07/25/20 14:29:00 EDT, Weight Dosing Start Date: 07/25/20 Status: Ordered Glucoamine (1 source) Start: 05-26-2021 take 1 mg by mouth twice daily Glucoamine Active MG PO Twice daily May 26, 2021 2:53pm glucosamine 500 mg oral tablet (8 sources) Start: 01-28-2020 take 1 tablet by mouth three times daily glucosamine 500 mg oral tablet 500 mg = 1 tab(s), Oral, TID, # 90 tab(s), Refills(s) 0 Start Date: 01/28/20 Status: Ordered ibuprofen 200 mg oral capsule (20 sources) Nonsteroidal Anti-inflammatory Drug Start: 12-04-2023 take 1 mg by mouth every six hours ibuprofen 200 mg oral capsule mg cap(s), Oral, q6hr, Refills(s) 0 Start Date: 12/04/23 Status: Ordered ibuprofen (Advil ) 200 MG tablet every 8 (eight) hours Active levothyroxine sodium 0.075 mg oral tablet (20 sources) l-Thyroxine Start: 05-26-2021 take 75 ug by mouth once daily in the morning Levothyroxine Active 75 MCG PO Every morning May 26, 2021 2:53pm Start: 01-28-2020 levothyroxine Daily, Refills(s) 0, Thyroid Start Date: 01/28/20 Status: Ordered Start: 01-28-2020 levothyroxine Daily, Refills(s) 0 Start Date: 01/28/20 Status: Ordered take 1 tablet by maia th once daily Levothyroxine Sodium 75 MCG TAKE ONE TABLET BY MOUTH ONCE DAILY for 30 Active Magnesium (1 source) Start: 05-26-2021 take 400 mg by mouth once daily Magnesium Active 400 MG PO Daily May 26, 2021 2:53pm mesalamine 1200 mg delayed release oral tablet (5 sources) Aminosalicylate Start: 01-31-2024 take 4 tablets by mouth once daily mesalamine (Lialda) 1.2 g EC tablet TAKE FOUR TABLETS BY MOUTH DAILY 01/31/2024 Active methocarbamol 750 mg oral tablet (1 source) Muscle Relaxant Methocarbamol 75 0 MG Orally Four times a day Active methylPREDNISolone (11 sources) Corticosteroid Start: 12-31-2023 methylPREDNISolone (Medrol Dospak) 4 MG tablets Indications: S/P left knee arthroscopy , Left knee pain, unspecified chronicity Follow schedule on package instructions 21 tablet 12/31/2023 Active Multivitamin (Multi-Day) Tablet (1 source) Start: 05-26-2021 take 1 tablet by mouth once daily Multivitamin (Multi-Day) Tablet Active 1 TAB PO Daily May 26, 2021 2:53pm Aleve (1 source) Nonsteroidal Anti-inflammatory Drug Start: 03-20-2024 take 1 mg by mouth every twelve hours Aleve mg, Oral, q12hr, Refills(s) 0 Start Date: 03/20/24 Status: Ordered NuLYTELY [place] oral powder for reconstitution (1 source) Start: 01-28-2020 take 1 dose by mouth once NuLYTELY [place] oral powder for reconstitution See Instructions, 1 EA, Refill(s) 0, PER PHYS INSRTUCTIONS, [facility], 150, cm, 01/28/20 10:49:00 EST, Height/Length Dosing, 69.9, kg, 01/28/20 10:49:00 EST, Weight Dosing Start Date: 01/28/20 Status: Ordered omeprazole 40 mg delayed release oral capsule (20 sources) Proton Pump Inhibitor Start: 03-20-2024 omeprazole 40 mg Cap-DR Refills(s) 0 Start Date: 03/20/24 Status: Ordered Start: 08-22-2023 omeprazole (Pr iLOSEC) [address] capsule 08/22/2023 Active Start: [...] the same time Active polyethylene glycol 3350 [id number] mg / potassium chloride 1480 mg / sodium bicarbonate 5720 mg / sodium chloride 97759 mg powder for oral solution (1 source) Osmotic Laxative Start: 01-28-2020 take 1 dose by mouth once NuLYTELY [place] oral powder for reconstitution See Instructions, 1 EA, Refill(s) 0, PER PHYS INSRTUCTIONS, [facility], 150, cm, 01/28/20 10:49:00 EST, Height/Length Dosing, 69.9, kg, 01/28/20 10:49:00 EST, Weight Dosing Start Date: 01/28/20 Status: Ordered predniSONE 5 mg oral tablet (9 sources) Start: 01-16-2024 predniSONE (Deltasone) 5 MG tablet START WITH 40MG (8 TABS) BY MOUTH FOR 7 DAYS, THEN DECREASE BY 5MG (1 TAB) EVERY 7 DAYS UNTIL FINISHED 01/16/2024 Active Start: 01-16-2024 predniSONE 5 m g Tab See Instructions, Start with 40mg x1 week and decrease by 5mg every week until finished, # 252 tab(s), Refills(s) 0, Pharmacy: [facility], 69, kg, 01/15/24 9:14:00 EST, Weight Dosing Start Date: 01/16/24 Status: Ordered simvastatin 40 mg oral tablet (20 sources) HMG-CoA Reductase Inhibitor Start: 10-24-2023 take [...] Status: Ordered sulfaSALAzine 500 mg oral tablet (20 sources) Aminosalicylate Start: 03-20-2024 End: 03-15-2025 take 2 tablets by mouth three times daily sulfasalazine 500 mg Tab 1,000 mg = 2 tab(s), Oral, TID, X 90 day(s), # 540 tab(s), Refills(s) 3, Pharmacy: [facility], 150, cm, 03/20/24 11:03:00 EST, Height/Length Dosing, 74.6, kg, 03/20/24 11:03:00 EST, Weight Dosing Start Date: 03/20/24 Stop Date: 03/15/25 Status: Ordered Start: 05-26-2021 take 500 mg by mouth four times daily Sulfasalazine Active 500 MG PO Four times daily May 26, 2021 2:53pm Start: 05-10-2021 take 2 tablets by mo [facility] three times daily sulfasalazine 500 mg [...] 2021 2:53pm zonisamide 50 mg oral capsule (14 sources) Anti-epileptic Agent Start: 10-25-2023 take 2 [...] Problem Date Documented Date Episodic/Chronic Abdominal pain (9 sources) Abdominal pain; Translations: [Unspecified abdominal pain] 12-03-2023 Episodic Anxiety disorders (20 sources) Mixed anxiety and depressive disorder; Translations: [Other specified anxiety disorders] Onset: 02-13-2018 Chronic Disorders of lipid metabolism (20 sources) Hyperlipidemia, unspecified; Translations: [Hyperlipoproteinemia] Onset: 09-27-2021 Chronic Esophageal disorders (17 sources) Gastroesophageal reflux disease; Translations: [Gastro-esophageal reflux disease without esophagitis] Onset: 07-10-2018 Chronic Fluid and electrolyte disorders (6 sources) Hypokalemia 12-03-2023 Episodic Joint disorders and dislocations; trauma-related (6 sources) Derangement of left knee; Translations: [Unspecified internal derangement of left knee] 02-17-2024 Chronic Neoplasms of unspecified nature or uncertain behavior (6 sources) Neoplasm of thyroid gland 12-03-2023 Episodic Noninfectious gastroenteritis (17 sources) Chronic diarrhea; Translations: [Noninfective gastroenteritis and colitis, unspecified] Onset: 12-03-2023 Episodic Nonmalignant breast conditions (3 sources) Breast signs and symptoms; Translations: [Other signs and symptoms in breast] Episodic Osteoarthritis (19 sources) Osteoarthritis; Translations: [Unspecified osteoarthritis, unspecified site] [...] lung field] Episodic Other nervous system disorders (9 sources) Carpal tunnel syndrome; Translations: [Carpal tunnel syndrome, unspecified upper limb] Onset: 02-13-2018 12-03-2023 Chronic Other non-traumatic joint disorders (8 sources) Pain in left knee; Translations: [Pain in joint, lower leg] 12-31-2023 Episodic Other nutritional; endocrine; and metabolic disorders (4 sources) Body mass index 30+ - obesity; Translations: [Body mass index (BMI) 35.0-35.9, adult] Chronic Other nutritional; endocrine; and metabolic disorders (9 sources) Obese class II; Translations: [Body mass index (BMI) 35.0-35.9, adult] 12-03-2023 Chronic Other nutritional; endocrine; and metabolic disorders (6 sources) Hypomagnesemia 12-03-2023 Chronic Other screening for suspected conditions (not mental disorders or infectious disease) (5 sources) Encounter for screening mammogram for malignant neoplasm of breast; Translations: [ENC SCR MAMMO MALIG NEOPLASM BREAST] Onset: 05-22-2021 Episodic Other upper respiratory disease (3 sources) Seasonal allergic rhinitis; Translations: [Other seasonal allergic rhinitis] Onset: 02-13-2018 Chronic Regional enteritis and ulcerative colitis (20 sources) Chronic ulcerative pancolitis; Translations: [Ulcerative (chronic) pancolitis without complications] Onset: 05-10-2021 Chronic Residual codes; unclassified (20 sources) Obstructive sleep apnea syndrome; Translations: [Obstructive sleep apnea (adult) (pediatric)] Onset: 09-04-2023 09-04-2023 Chronic Residual codes; unclassified (10 sources) History of arthroscopy of knee joint; Translations: [Other specified postprocedural states] 11-06-2023 Episodic Spondylosis; intervertebral disc disorders; other back problems (6 sources) Spondylosis without myelopathy or radiculopathy, lumbar region; Translations: [Other intervertebral disc degeneration, lumbar region] Onset: 09-06-2021 Chronic Substance-related disorders (7 sources) Nicotine dependence, cigarettes, uncomplicated; Translations: [Tobacco user] Onset: 03-23-2021 Chronic Thyroid disorders (20 sources) Nontoxic goiter, unspecified; Translations: [Hypothyroidism, unspecified] [...] Other Problems Problem Classification Problem Date Documented Date Episodic/Chronic Other circulatory disease (3 sources) Orthostatic hypotension; Translations: [Orthostatic hypotension] Onset: 02-13-2018 Episodic Other connective tissue disease (3 sources) Pain in right foot; Translations: [Pain in right foot] Onset: 02-13-2018 Episodic Other lower respiratory disease (4 sources) Other nonspecific abnormal finding of lung field; Translations: [OTH NONSPECIFIC ABN FIND LNG FIELD] Onset: 04-01-2021 Episodic Other lower respiratory disease (9 sources) Dyspnea; Translations: [Other forms of dyspnea] Onset: 06-17-2018 12-03-2023 Episodic Other nervous system disorders (3 sources) Paresthesia; Translations: [Paresthesia of skin] Onset: 02-13-2018 Episodic Other nervous system disorders (1 source) Postoperative pain ; Translations: [Other acute postprocedural pain] 10-08-2023 Episodic Other non-traumatic joint disorders (1 source) Pain in left hip; Translations: [PAIN IN LEFT HIP] Onset: 04-21-2021 Episodic Residual codes; unclassified (6 sources) Tobacco user Onset: 03-23-2021 12-03-2023 Episodic Spondylosis; intervertebral disc disorders; other back problems (13 sources) Muscle spasm of back; Translations: [Low back pain] Onset: 02-13-2018 Episodic Unclassified (1 source) LOW BACK PAIN, UNSPECIFIED; Translations: [LOW BACK PAIN, UNSPECIFIED] Onset: 09-26-2021 Results Test Name Value Interpretation Reference Range Facility Gastroenterology Office/Clin ic Noteon 03-20-2024 Gastroenterology Office/Clinic Note Gastroenterology Office/Clinic Note Chief Complaint Checkup HPI Staff Patient is a(n) 74 year old female who presents today for a(n) 2 month follow-up. IBD Current Symptoms: No How many bowel movements a day: 4 Other issues want to discuss today: Insurance does not cover Lialda now, wants to discuss switching medication Insurance will cover: Mesalamine ER 0.375, Balsalazide, Sulfasalazine Laboratory Results CBC CMP Basophil Absolute: 0.1 E9/L (01/15/24) A/G Ratio: 1 Low (01/15/24) Basophil Auto: 0.5 % (01/15/24) AGAP: 15 mEq/L (01/15/24) Eos Absolute: 0.1 E9/L (01/15/24) Albumin Lvl: 3.7 gm/dL (01/15/24) Eos Auto: 0.7 % (01/15/24) Alk Phos: 84 Int._Unit/L (01/15/24) Hct: 36.7 % (01/15/24) ALT: 15 Int._Unit/L (01/15/24) HGB: 12.6 gm/dL (01/15/24) AST: 14 Int._Unit/L (01/15/24) Lymph Absolute: 1.1 E9/L (01/15/24) Bili Total: 0.7 mg/dL (01/15/24) Lymph Auto: 11 % Low (01/15/24) BUN: 7 mg/dL (01/15/24) MCH: 29.3 pg (01/15/24) BUN/Creat Ratio: 12 (01/15/24) MCHC: 34.3 gm/dL (01/15/24) Calcium Lvl: 9.2 mg/dL (01/15/24) MCV: 85.6 fL (01/15/24) Chloride: 100 mmol/L Low (01/15/24) [place] Absolute: 1.1 E9/L High (01/15/24) CO2: 23 mmol/L (01/15/24) [place] Auto: 10.6 % (01/15/24) Creatinine: 0.6 mg/dL (01/15/24) MPV: 7.5 fL (01/15/24) Globulin: 3.7 gm/dL (01/15/24) Neutro Absolute: 7.7 E9/L High (01/15/24) Glucose Lvl: 91 mg/dL (01/15/24) Neutro Auto: 77.2 % High (01/15/24) Potassium Lvl: 3.5 mmol/L (01/15/24) Platelet: 324 E9/L (01/15/24) Sodium Lvl: 134 mmol/L Low (01/15/24) RBC: 4.3 E12/L (01/15/24) Total Protein: 7.4 gm/dL (01/15/24) RDW: 18.3 % High (01/15/24) WBC: 10 E9/L (01/15/24) Hep Bs Ab: Reactive (01/15/24) Hep Bs Ag: Negative (01/15/24) Hep B Core Ab Total: Negative (01/15/24) CRP: 6.0 High (01/15/24) QuantiFERON TB: Negative (01/15/24) Stool Studies Campylobacter group: Not Detected (01/15/24) Clostridium difficile by PCR: NEGATIVE1 (01/15/24) Norovirus GI/GII: Not Detected (01/15/24) Ova/Para Exam Rt: Final report (12/06/23) Result 1: Comment (12/06/23) Rotavirus A: Not Detected (01/15/24) Salmonella species: Not Detected (01/15/24) Shiga Tox Interp: NEGATIVE1 (01/15/24) Shiga Toxin 1: Not Detected (01/15/24) Shiga Toxin 2: Not Detected (01/15/24) Shigella species: Not Detected (01/15/24) Vibrio Group: Not Detected (01/15/24) Yersinia enterocolitica: Not Detected (01/15/24) Celiac Panel Antigliadin IgA: 4 (12/04/23) Antigliadin Ig (12/04/23) Endomysial Antibody IgA: Negative (12/04/23) IgA Quant: 248 (12/04/23) t-Transglutaminase IgA: <2 (12/04/23) t-Transglutaminase Ig (12/04/23) History of Present Illness Reviewed HPI collected by staff Review of Systems PHQ Score Initial Depression Screen Score: 0 SCORE All systems reviewed, negative; Except for above Physical Exam Vitals & Measurements HR: 71(Peripheral) BP: 129/74 HT: 59 in HT: 150 cm WT: 74.6 kg WT: 164.465 lb BMI: 33.16 General: in Nad Abdomen: Soft, NTND Procedure EGD 01/15/24: Impression and Plan 1. Esophageal landmarks identified, normal examined esophagus 2. Minimal nonspecific patchy erythema in the antrum of the stomach, otherwise normal examined stomach. Random biopsies were taken to rule out H. pylori 3. Normal examined duodenum 4. Normal examined proximal jejunum Colonoscopy 01/15/24: Impression and Plan 1. Diffuse colitis in the colon and the whole colon with patchy erythema in the rectum, afterwards and small clean-based ulcers, afterwards more diffuse inflammation more severe in the left colon gradually improves to the right colon characterized by spontaneous bleeding, ulceration and erosions, Mayes score 3, Random biopsies were taken for histology and to rule out CMV, also stool sample was sent for C. difficile and enteric panel random biopsies were taken to rule out CMV 2. Normal Terminal ileum 3. Small internal hemorrhoids Overall we have to rule out infectious etiologies, would start prednisone taper and get IBD labs, will discuss biologic therapy, Entyvio is likely the best next step, awaiting final pathology results Recommendations: Repeat colonoscopy:: Based on path Pathology: Final Diagnosis ( Modified ) A: STOMACH, BIOPSY: ??? GASTRIC ANTRAL MUCOSA WITH MILD CHRONIC INACTIVE GASTRITIS, COMPATIBLE WITH REACTIVE GASTROPATHY. ??? NO INTESTINAL METAPLASIA. ??? NO H. PYLORI MICROORGANISMS IDENTIFIED WITH IMMUNOSTAIN. B: COLON, RANDOM BIOPSY: ??? COLONIC MUCOSA WITH MILD ACTIVE CHRONIC INFLAMMATION IN LAMINA PROPRIA AND MILD GLANDULAR DISTORTION. ??? NO GRANULOMA OR DYSPLASIA IDENTIFIED (SEE COMMENT). Diagnosis Comment ( Auth (Verified) ) B. No viral effects are identified on submitted sections. Clinical correlation is indicated for etiology. Assessment/Plan 1. Chronic pancolonic ulcerative colitis (K51.00: Ulcerative (chronic) pancolitis without complications) diagnosed > 30 years, pereira (more content not included)... Normal [facility] Comment on above: Result Comment: Elec tronically Signed By: Martin Tatum MD\.br\Date and Time Signed: 03/20/24 11:30 EST\.br\Electronically Co-Signed By: Jacquie Gauthier MA\.br\Date and Time Co-Signed: 03/20/24 11:29 EST Ambulatory Visit Summaryon 1 04-01-2023 Ambulatory Visit Summary Ambulatory Visit Summary ALEXANDRA CERVANTES :1950 Visit Date:01/30/2024 Ambulatory Visit Instructions Your Diagnosis Chronic pancolonic ulcerative colitis Chronic diarrhea Gastroesophageal reflux disease Your Care Team Attending Physician - Martin Tatum MD Primary Care Physician - LAURITA MORALES MD This Is Your Medications List Contact prescribing physician if questions or concerns alprazolam baclofen calcium citrate (calcium (as calcium citrate) 200 mg oral tablet) escitalopram glucosamine (glucosamine 500 mg oral tablet) ibuprofen (ibuprofen 200 mg oral capsule) levothyroxine multivitamin with minerals (Alive Women's 50+ Complete Multivitamin) multivitamin with minerals (Ocuvite Adult 50+) omeprazole predniSONE (predniSONE 5 mg Tab) simvastatin sulfasalazine (sulfasalazine 500 mg Tab) Procedures Performed Colonoscopy (01/15/2024), Esophagogastroduodenoscopy (01/15/2024), Torn meniscus (09/12/2023), Colonoscopy, flexible; with biopsy, single or multiple (02/16/2020), Colonoscopy, History of appendectomy, History of thyroidectomy. Discharge Vitals Heart Rate (Peripheral) 80 Blood Pressure 148/82 Height 59 in Height 150 cm Weight 153.662 lb Weight 69.7 kg BMI 30.98 What to do next Scheduled Follow-Up Appointments Saturday 9:15 AM EDT With: Martin Tatum MD Where: [facility] [address] [place] [phone] You Need to Complete the Following Calprotectin, Fecal, Stool, Routine collect, 01/30/24, Order for future visit, Nurse collect, Chronic pancolonic ulcerative colitis, Not Required, Print Label By Order Location Medications What How Much When Instructions Unchanged alprazolam By Mouth Contact prescribing [...] prescribing physician if questions or concerns Unchanged ibuprofen (ibuprofen 200 mg oral capsule) By Mouth Every 6 hours Contact prescribing physician if questions or concerns Unchanged levothyroxine Every day Contact prescribing physician if questions or concerns Unchanged multivitamin with minerals (Alive Women's 50+ Complete Multivitamin) By Mouth Every day Contact prescribing physician if questions or concerns Unchanged multivitamin with minerals (Ocuvite Adult 50+) Contact prescribing physician if questions or concerns Unchanged omeprazole By Mouth Every day Contact prescribing physician if questions or concerns Unchanged predniSONE (predniSONE 5 mg Tab) See instructions Start with 40mg x1 week and decrease by 5mg every week until finished Contact prescribing physician if questions or concerns Unchanged simvastatin By Mouth Contact prescribing physician if questions or concerns Unchanged sulfasalazine (sulfasalazine 500 mg Tab) 2 Tablets By Mouth 3 times a day Contact prescribing physician if questions or concerns Allergies varenicline (Unknown) Problems Ongoing - Any problem that you are currently receiving treatment for. Abdominal pain Anxiety Carpal tunnel syndrome Chronic diarrhea Chronic pancolonic ulcerative colitis Dyspnea Gastroesophageal reflux disease History of thyroidectomy Hyperlipidemia Hyperlipoproteinemia Hypokalemia Hypomagnesemia Hypothyroidism Low back pain Neoplasm of thyroid gland Obese class II Obstructive sleep apnea syndrome Osteoarthritis Tobacco user Patient Survey You may receive a survey via text or e-mail asking about your office visit. Please share your experience with us by completing your survey. We appreciate your feedback and thank you for choosing us for your care. Normal [facility] Gastroenterology Office/Clin ic Noteon 01-30-2024 Gastroenterology Office/Clinic Note Gastroenterology Office/Clinic Note Chief Complaint EGD and colonoscopy resutls. HPI Staff Patient is a(n) 73 year old female who presents today for a follow-up to EGD & Colonoscopy on 01/15/24. Still taking Sulfasalazine? Yes Effective? Yes Need to discuss upgrading treatment. Any blood thinners? no Any GLP-1 agonists? no Last visit 12/04/23 w/Dr. Tatum: Assessment/Plan 1. Chronic pancolonic ulcerative colitis (K51.00: Ulcerative (chronic) pancolitis without complications) diagnosed > 30 years, mesalamine was covered by insurance taking sulfasalazine, but not continuously, she said she stopped it for almost a year and now she started taking it back remained in endoscopic remission for long time Last colonoscopy [address] Fuller took Covid vaccine ~ a month ago and since then she is having diarrhea, > 10 bm, gradually improved, went to ED, only had blood work Differential includes infectious colitis, vaccine associated side effect, acute ulcerative colitis We will proceed with blood work and stool testing, EGD and colonoscopy, if stool test is negative for infection we can use Imodium as needed carefully since she is going to go on a vacation 2. Chronic diarrhea (K52.9: Noninfective gastroenteritis and colitis, unspecified) 3. Gastroesophageal reflux disease (K21.9: Gastro-esophageal reflux disease without esophagitis) EGD: Impression and Plan 1. Esophageal landmarks identified, normal examined esophagus 2. Minimal nonspecific patchy erythema in the antrum of the stomach, otherwise normal examined stomach. Random biopsies were taken to rule out H. pylori 3. Normal examined duodenum 4. Normal examined proximal jejunum Colonoscopy: Impression and Plan 1. Diffuse colitis in the colon and the whole colon with patchy erythema in the rectum, afterwards and small clean-based ulcers, afterwards more diffuse inflammation more severe in the left colon gradually improves to the right colon characterized by spontaneous bleeding, ulceration and erosions, Mayes score 3, Random biopsies were taken for histology and to rule out CMV, also stool sample was sent for C. difficile and enteric panel random biopsies were taken to rule out CMV 2. Normal Terminal ileum 3. Small internal hemorrhoids Overall we have to rule out infectious etiologies, would start prednisone taper and get IBD labs, will discuss biologic therapy, Entyvio is likely the best next step, awaiting final pathology results Recommendations: Repeat colonoscopy:: Based on path Pathology: Final Diagnosis ( Modified ) A: STOMACH, BIOPSY: ??? GASTRIC ANTRAL MUCOSA WITH MILD CHRONIC INACTIVE GASTRITIS, COMPATIBLE WITH REACTIVE GASTROPATHY. ??? NO INTESTINAL METAPLASIA. ??? NO H. PYLORI MICROORGANISMS IDENTIFIED WITH IMMUNOSTAIN. B: COLON, RANDOM BIOPSY: ??? COLONIC MUCOSA WITH MILD ACTIVE CHRONIC INFLAMMATION IN LAMINA PROPRIA AND MILD GLANDULAR DISTORTION. ??? NO GRANULOMA OR DYSPLASIA IDENTIFIED (SEE COMMENT). Diagnosis Comment ( Auth (Verified) ) B. No viral effects are identified on submitted sections. Clinical correlation is indicated for etiology. Celiac Panel Antigliadin IgA: 4 (12/04/23) Antigliadin Ig (12/04/23) Endomysial Antibody IgA: Negative (12/04/23) IgA Quant: 248 (12/04/23) t-Transglutaminase IgA: <2 (12/04/23) t-Transglutaminase Ig (12/04/23) TSH: 1.76 mcIU/mL (12/04/23 10:30:00) Stool Studies Campylobacter group: Not Detected (01/15/24) Clostridium difficile by PCR: NEGATIVE1 (01/15/24) Norovirus GI/GII: Not Detected (01/15/24) Ova/Para Exam Rt: Final report (12/06/23) Result 1: Comment (12/06/23) Rotavirus A: Not Detected (01/15/24) Salmonella species: Not Detected (01/15/24) Shiga Tox Interp: NEGATIVE1 (01/15/24) Shiga Toxin 1: Not Detected (01/15/24) Shiga Toxin 2: Not Detected (01/15/24) Shigella species: Not Detected (01/15/24) Vibrio Group: Not Detected (01/15/24) Yersinia enterocolitica: Not Detected (01/15/24) Review of Systems PHQ Score Initial Depression Screen Score: 2 SCORE Physical Exam Vitals & Measurements HR: 80(Peripheral) BP: 148/82 HT: 59 in HT: 150 cm WT: 69.7 kg WT: 153.662 lb BMI: 30.98 Assessment/Plan 1. Chronic pancolonic ulcerative colitis (K51.00: Ulcerative (chronic) pancolitis without complications) diagnosed > 30 years, mesalamine was covered by insurance taking sulfasalazine, but not continuously, she said she stopped it for almost a year and now she started taking it back remained in endoscopic remission for long time Last colonoscopy [address] Fuller took Covid vaccine ~ a month ago and since then she is having diarrhea, > 10 bm, gradually improved, went to ED, only had blood work Colonoscopy with me showed colitis, it seems he was patchy in some places in the colon with ulcers raising the concern for Crohn's colitis Biopsies showing chronic active colitis Normal TI negative stool testing, TB negative, immune for h (more content not included)... Normal [facility] Comment on above: Result Comment: Elec tronically Signed By: Deepti ALARCON, Martin Khan\.br\Date and Time Signed: 01/30/24 14:13 EST Surgical Pathology Reporton 01-22-2024 Surgical Pathology Report [facility] [address] [place] [address]- Surgical Pathology Report Collected Date/Time: 01/15/2024 12:33 EST Pathologist: Albaro ALARCON PhD, Scooby Angeles Received Date/Time: 01/16/2024 08:04 EST Deepti ALARCON, Martin Tatum MD, Martin Khan 07 Surgical Pathology Report - 01/22/2024 14:25 EST - Auth (Verified) Final Diagnosis A: STOMACH, BIOPSY: - GASTRIC ANTRAL MUCOSA WITH MILD CHRONIC INACTIVE GASTRITIS, COMPATIBLE WITH REACTIVE GASTROPATHY. - NO INTESTINAL METAPLASIA. - NO H. PYLORI MICROORGANISMS IDENTIFIED WITH IMMUNOSTAIN. B: COLON, RANDOM BIOPSY: - COLONIC MUCOSA WITH MILD ACTIVE CHRONIC INFLAMMATION IN LAMINA PROPRIA AND MILD GLANDULAR DISTORTION. - NO GRANULOMA OR DYSPLASIA IDENTIFIED (SEE COMMENT). (Electronic Signature) Scooby Irvin MD PhD 01/22/2024 14:25 Diagnosis Comment B. No viral effects are identified on submitted sections. Clinical correlation is indicated for etiology. Clinical Information Gerd, diarrhea, chronic ulcerative colitis Pre-Op Diagnosis: Gerd, diarrhea, chronic ulcerative colitis Procedure: EGD, colonoscopy Post-Op Diagnosis: 1. Esophageal landmarks identified, normal examined esophagus 2. Minimal nonspecific patchy erythema in the antrum of the stomach, otherwise normal examined stomach. Random biopsies were taken to rule out H. pylori 3. Normal examined duodenum 4. Normal examined proximal jejunum 5. Diffuse colitis in the colon and the whole colon with patchy erythema in the rectum, afterwards and small clean-based ulcers, afterwards more diffuse inflammation more severe in the left colon gradually improves to the right colon characterized by spontaneous bleeding, ulceration and erosions, Mayes score 3, Random biopsies were taken for histology and to rule out CMV, also stool sample was sent for C. difficile and enteric panel random biopsies were taken to rule out CMV 6. Normal Terminal ileum 7. Small internal hemorrhoids Specimen(s) Received A.Gastric biopsy B.Random colon biopsy Gross Description A: Received in formalin labeled with patient name, number, and gastric biopsy are three fragments of piedra tissue ranging from less than 0.1 cm up to 0.3 cm in greatest dimension. Specimen is entirely submitted in one cassette. Surgical Pathology Report Collected Date/Time: 01/15/2024 12:33 EST Pathologist: Albaro ALARCON PhD, Scooby Angeles Received Date/Time: 01/16/2024 08:04 WIL Tatum MD, Martin Tatum MD, Martin Khan Gross Description B: Received in formalin labeled with patient name, number, and random colon biopsy are multiple fragments of piedra tissue ranging from less than 0.1 cm up to 0.5 cm in greatest dimension. Specimen is entirely submitted in one cassette. (DC) DC:MCA Microscopic Description Microscopic examination performed unless gross only specified. The use of one or more reagents in the above tests is regulated as an analyte specific reagent (ASR). The test or tests are ordered following initial H&E microscopic examination. The performance characteristics were determined by the [facility]. They have not been cleared or approved by the US Food and Drug Administration. The FDA has determined that such clearance or approval is not necessary. These tests are used for clinical purposes. They should not be regarded as investigational or for research. Appropriate positive and negative controls are performed and are acceptable. Normal [facility] Comment on above: Performed By: #### 4 [id number] #### [facility] [address] [place] [address] Quantiferon-TB Plus (Client Incubated)on 01-17-2024 Gamma interferon background IA Qn (Bld) 0.02 International_Unit/mL Invalid Interpretation Code [facility] Comment on above: Performed By: #### 1 [id number] #### [facility] [address] [place] [address] M. tuberculosis stim IFN-g by CD4+ CD8+ T-cells corrected for background Qn (Bld) 0.05 International_Unit/mL Invalid Interpretation Code [facility] Comment on above: Performed By: #### 1 [id number] #### [facility] [address] [place] [address] M. tuberculosis stim IFN-g by CD4+ T-cells corrected for background Qn (Bld) 0.02 International_Unit/mL Invalid Interpretation Code [facility] Comment on above: Performed By: #### 1 [id number] #### [facility] [address] [place] [address] M. tuberculosis stim IFN-g Ql (Bld) [Interp] Negative Invalid Interpretation Code Negative [facility] Comment on above: Result Comment: No r esponse to M tuberculosis antigens detected. Infection with M tuberculosis is unlikely, but high risk individuals should be considered for additional testing (ATS/IDSA/CDC Clinical Practice Guidelines, 2017). The reference range is an Antigen minus Nil result of <0.35 IU/mL. The specimen received for QuantiFERON testing was incubated by the ordering institution. Specific procedures outlined in our Directory of Services and in the package insert for the QuantiFERON Gold (In Tube) test must be followed to enable for proper stimulation of cells for the production of interferon gamma. Chemiluminescence immunoassay methodology Performed at: [facility] [id number] PhD Kirk Cm Performed By: #### 1 [id number] #### [facility] [address] [place] [address] Mitogen stimulated gamma interferon corrected for background Qn (Bld) >10.00 Invalid Interpretation Code [facility] Comment on above: Performed By: #### 1 [id number] #### [facility] [address] [place] [address] Service comment (Unsp spec) [Interp] Comment Invalid Interpretation Code [facility] Comment on above: Result Comment: Terry tiFERON-TB Gold Plus is a qualitative indirect test for M tuberculosis infection (including disease) and is intended for use in conjunction with risk assessment, radiography, and other medical and diagnostic evaluations. The QuantiFERON-TB Gold Plus result is determined by subtracting the Nil value from either TB antigen (Ag) value. The Mitogen tube serves as a control for the test. Performed By: #### 1 [id number] #### [facility] [address] [place] [address] Enteric Panel by PCRon 01-15 Enteric Panel by PCR Shiga Tox Interp Negative for Shiga Toxin producing E. coli Normal [facility] CHEMISTRYOrdered By: SYSTEM SYSTEM on 01-15-2024 Albumin [Mass/Vol] 3.7 g/dL Normal 3.3 - 5.0 gm/dL Remisol Chem Albumin/Globulin [Mass ratio] 1.0 {ratio} Low 1.1 - 2.2 Remisol Chem ALP [Catalytic activity/Vol] 84 [iU]/d Normal 21 - 98 Int._Unit/ L Remisol Chem ALT No additional P-5'-P [Catalytic activity/Vol] 15 [iU]/d Normal 6 - 46 Int._Unit/ L Remisol Chem Anion gap [Moles/Vol] 15 mmol/L Normal 6 - 16 mEq/L Remisol Chem AST [Catalytic activity/Vol] 14 [iU]/d Normal 5 - 43 Int._Unit/ L Remisol Chem Bilirubin [Mass/Vol] 0.7 mg/dL Normal 0.0 - 1 .1 mg/dL Remisol Chem Calcium [Mass/Vol] 9.2 mg/dL Normal 8.9 - 11. 1 mg/dL Remisol Chem Chloride [Moles/Vol] 100 mmol/L Low 101 - 1 11 mmol/L Remisol Chem CO2 [Moles/Vol] 23 mmol/L Normal 21 - 31 mmol/L Remisol Chem Creatinine [Mass/Vol] 0.6 mg/dL Normal 0.5 - 1.3 mg/dL Remisol Chem CRP [Mass/Vol] 6.0 mg/dL High <=1.9mg/dL Remisol Chem eGFR 93 mL/min/1.73 m2 Normal >=59mL/min /1.73 m2 Remisol Chem Globulin (S) [Mass/Vol] 3.7 g/dL Normal 1.4 - 4.0 gm/dL Remisol Chem Glucose [Mass/Vol] 91 mg/dL Normal 55 - 199 mg/dL Remisol Chem Potassium [Moles/Vol] 3.5 mmol/L Normal 3.5 - 5.3 mmol/L Remisol Chem Protein [Mass/Vol] 7.4 g/dL Normal 6.0 - 7.8 gm/dL Remisol Chem Sodium [Moles/Vol] 134 mmol/L Low 135 - 145 mmol/L Remisol Chem Urea nitrogen [Mass/Vol] 7 mg/dL Normal 5 - 21 mg/dL Remisol Chem Urea nitrogen/Creatinine [Mass ratio] 12 mg/mg Normal 10 - 20 Remisol Chem HEMATOLOGYOrdered By: Samantha Silva on 01-15-2024 Basophils/100 WBC (Bld) 0.5 % Normal 0.0 - 2.0 % Remisol Heme Basophils/Leukocytes Auto (Bld) [Pure # fraction] 0.1 E9/L Normal 0.0 - 0.2 E9/L Remisol Heme Eosinophils (Bld) [#/Vol] 0.1 E9/L Normal 0.0 - 0.5 E9/L Remisol Heme Eosinophils/100 WBC (Bld) 0.7 % Normal 0.0 - 8.0 % Remisol Heme Erythrocyte distribution width (RBC) [Ratio] 18.3 % High 10.9 - 14.2 % Remisol Heme Hematocrit (Bld) [Volume fraction] 36.7 % Normal 34.0 - 46.0 % Remisol Heme Hemoglobin (Bld) [Mass/Vol] 12.6 g/dL Normal 12.0 - 16.0 gm/dL Remisol Heme Lymphocytes (Bld) [#/Vol] 1.1 E9/L Normal 1.0 - 4.0 E9/L Remisol Heme Lymphocytes/100 WBC (Bld) 11.0 % Low 14.0 - 50.0 % Remisol Heme MCH (RBC) [Entitic mass] 29.3 pg Normal 27.0 - 34.0 pg Remisol Heme MCHC (RBC) [Mass/Vol] 34.3 g/dL Normal 31.4 - 36.0 gm/dL Remisol Heme MCV (RBC) [Entitic vol] 85.6 fL Normal 80.0 - 100.0 fL Remisol Heme Monocytes (Bld) [#/Vol] 1.1 E9/L High 0.2 - 1.0 E9/L Remisol Heme Monocytes/100 WBC (Bld) 10.6 % Normal 4.0 - 14.0 % Remisol Heme Neutrophils (Bld) [#/Vol] 7.7 E9/L High 2.0 - 7.5 E9/L Remisol Heme Neutrophils/100 WBC (Bld) 77.2 % High 36.0 - 75.0 % Remisol Heme Platelet mean volume (Bld) [Entitic vol] 7.5 fL Normal 6.4 - 10.8 fL Remisol Heme Platelets (Bld) [#/Vol] 324.0 E9/L Normal 150.0 - 500.0 E9/L Remisol Heme RBC (Bld) [#/Vol] 4.3 E12/L Normal 4.3 - 5.9 E12/L Remisol Heme WBC corrected for nucl RBC Auto (Bld) [#/Vol] 10.0 E9/L Normal 4.0 - 11.0 E9/L Remisol Heme C. diff by PCRon 12-06-2023 C. diff by PCR Clostridium difficil e by PCR Specimen Negative for toxigenic C. difficile by DNA amplification. Duplicate specimens will not be accepted on this patient for the next 7 days. Published data on the sensitivity of molecular assays suggest there is no diagnostic value in repeat testing of samples in close time sequence. Normal Negative [facility] Comment on above: Result Comment: This test result should be correlated with clinical presentations and medical history by a healthcare provider to determine its clinical significance.\.br\.br\ Other Comment: Order added by Discern Expert. Clostridium difficile by PCR Negative Normal Negative [facility] Comment on above: Order Comment: Order added by Discern Expert. Result Comment: This test result should be correlated with clinical presentations and medical history by a healthcare provider to determine its clinical significance. Performed By: #### 4 [id number] #### [facility] [address] [place] [address] CDiff PCRon 12-06-2023 C. difficile toxin A+B Ql (Stl) No, PCR to follow Normal [facility] Comment on above: Performed By: #### 3 [id number] #### [facility] [address] [place] [address] CDiff PCR Order Cancelled Specimen has been found to be acceptable for C. difficile testing. Normal [facility] Enteric Panel by PCRon 12-05 C. coli+jejuni+upsalien sis DNA ADELITA+non-probe Ql (Stl) Not detected Normal [facility] Comment on above: Result Comment: Test ing was performed utilizing reverse ornament maker hand (RT), polymerase chain reaction (PCR), and array hybridization to detect specific gastrointestinal microbial nucleic acid gene sequences associated with the following pathogenic bacteria and viruses:Campylobacter Group (composed of C. coli, C. jejuni, and C. olimpia), Salmonella species, Shigella species (including S. dysenteriae, S. boydii, S. sonnei and S. flexneri), Vibrio Group (composed of V. cholera and V. parahaemolyticus), Yersinia enterocolitica, Norovirus GI/GII, and Rotavirus A. In addition, EPdetects Shiga toxin 1 gene and Shiga toxin 2 gene virulence markers. Shiga toxin producing E. coli (STEC) typically harbor one or both genes that encode for Shiga toxins 1 and 2. Campylobacter group, Salmonella species, Shigella species, Vibrio group, Rotavirus A, Shiga Toxin 1, Shiga Toxin 2, Norovirus GI/GII, and Yersinia enterocolitica were tested by Verigene nulcleic acid test. Performed By: #### 1 [id number] #### [facility] [address] [place] [id number] E. coli stx1+stx2 genes ADELITA+non-probe Ql (Stl) Negative [facility] Comment on above: Performed By: #### 1 [id number] #### [facility] [address] [place] [address] Enteric Panel by PCR Shiga Tox Interp Negative for Shiga Toxin producing E. coli Normal [facility] Enteric Panel Intrl QC Pass Normal [facility] Comment on above: Result Comment: Test ing was performed utilizing reverse ornament maker hand (RT), polymerase chain reaction (PCR), and array hybridization to detect specific gastrointestinal microbial nucleic acid gene sequences associated with the following pathogenic bacteria and viruses:Campylobacter Group (composed of C. coli, C. jejuni, and C. olimpia), Salmonella species, Shigella species (including S. dysenteriae, S. boydii, S. sonnei and S. flexneri), Vibrio Group (composed of V. cholera and V. parahaemolyticus), Yersinia enterocolitica, Norovirus GI/GII, and Rotavirus A. In addition, EPdetects Shiga toxin 1 gene and Shiga toxin 2 gene virulence markers. Shiga toxin producing E. coli (STEC) typically harbor one or both genes that encode for Shiga toxins 1 and 2. Performed By: #### 1 [id number] #### [facility] [address] [place] [address] Norovirus genogroup I+II RNA ADELITA+non-probe Ql (Stl) Not detected Normal [facility] Comment on above: Performed By: #### 1 [id number] #### [facility] [address] [place] [address] Rotavirus A RNA ADELITA+non-probe Ql (Stl) Not detected Normal [facility] Comment on above: Performed By: #### 1 [id number] #### [facility] [address] [place] [address] S. enterica+bongori DNA ADELITA+non-probe Ql (Stl) Not detected Normal [facility] Comment on above: Result Comment: This test result should be correlated with clinical presentations and medical history by a healthcare provider to determine its clinical significance. Performed By: #### 1 [id number] #### [facility] [address] [place] [address] Shigella species+EIEC invasion plasmid antigen H ipaH gene ADELITA+non-probe Ql (Stl) Not detected Normal [facility] Comment on above: Performed By: #### 1 [id number] #### [facility] [address] [place] [address] V. cholerae+parahaemoly ticus+vulnificus DNA ADELITA+non-probe Ql (Stl) Not detected Normal [facility] Comment on above: Performed By: #### 1 [id number] #### [facility] [address] [place] [address] Y. enterocolitica DNA ADELITA+non-probe Ql (Stl) Not detected Normal [facility] Comment on above: Performed By: #### 1 [id number] #### [facility] [address] [place] [address] Celiac Disease Comprehensive on 12-05-2023 Endomysium IgA Ql (S) Negative Invalid Interpretation Code Negative [facility] Comment on above: Performed By: #### 1 [id number] #### [facility] [address] [place] [address] Gliadin peptide IgA Qn (S) 4 unit(s) Invalid Interpretation Code 0-19 [facility] Comment on above: Result Comment: Nega tive 0 - 19 Weak Positive 20 - 30 Moderate to Strong Positive >30 Performed By: #### 1 [id number] #### [facility] [address] [place] [address] Gliadin peptide IgG Qn (S) 3 unit(s) Invalid Interpretation Code 0-19 [facility] Comment on above: Result Comment: Nega tive 0 - 19 Weak Positive 20 - 30 Moderate to Strong Positive >30 Performed By: #### 1 [id number] #### [facility] [address] [place] [address] IgA [Mass/Vol] 248 mg/dL Invalid Interpretation Code 64-422 [facility] Comment on above: Result Comment: Perf ormed at: [facility] [address] [id number] PhD Kirk Cm Performed By: #### 1 [id number] #### [facility] [address] [place] [address] tTG IgA Qn (S) <2 Invalid Interpretation Code 0-3 [facility] Comment on above: Result Comment: Nega tive 0 - 3 Weak Positive 4 - 10 Positive >10 Tissue Transglutaminase (tTG) has been identified as the endomysial antigen. Studies have demonstr- ated that endomysial IgA antibodies have over 99% specificity for gluten sensitive enteropathy. Performed By: #### 1 [id number] #### [facility] [address] [place] [address] tTG IgG Qn (S) 5 unit/mL Invalid Interpretation Code 0-5 [facility] Comment on above: Result Comment: Nega tive 0 - 5 Weak Positive 6 - 9 Positive >9 Performed By: #### 1 [id number] #### [facility] [address] [place] [address] CHEMISTRYOrdered By: SYSTEM SYSTEM on 12-04-2023 TSH Qn 1.76 m[IU]/L Normal 0.34 - 5.60 mcIU/mL Remisol Chem TSHon 12-04-2023 TSH Qn 1.76 m[IU]/L Normal 0.34-5.60 [facility] Comment on above: Performed By: #### 2 [id number] #### [facility] [address] [place] [address] CBC AUTO DIFFon 11-21-2021 BASO # 0.1 103/ul Normal 0.0-0.1 [facility] Comment on above: Performed By: #### C BC #### [facility] [address] [place] [address] Dr. Scooby Irvin Basophils/100 WBC (Bld) 0.5 % Normal 0.2-2.0 [facility] Comment on above: Performed By: #### C BC #### [facility] [address] [place] [address] Dr. Scooby Irvin EO # 0.0 103/ul Normal 0.0-0.7 [facility] Comment on above: Performed By: #### C BC #### [facility] [address] [place] [address] Dr. Scooby Irvin Eosinophils/100 WBC (Bld) 0.1 % Critically low 0.9-7.0 [facility] Comment on above: Performed By: #### C BC #### [facility] [address] [place] [address] Dr. Scooby Irvin Erythrocyte distribution width (RBC) [Ratio] 15.1 % Critically high 11.0-15.0 [facility] Comment on above: Performed By: #### C BC #### [facility] [address] [place] [address] Dr. Scooby Irvin Hematocrit (Bld) [Volume fraction] 39.4 % Normal 36.0-48.0 [facility] Comment on above: Performed By: #### C BC #### [facility] [address] [place] [address] Dr. Scooby Irvin Hemoglobin (Bld) [Mass/Vol] 12.6 g/dL Normal 12.0-16.0 [facility] Comment on above: Performed By: #### C BC #### [facility] [address] [place] [address] Dr. Scooby Irvin IG # 0.05 10e3/ul Critically high 0.00-0.03 [facility] Comment on above: Performed By: #### C BC #### [facility] [address] [place] [address] Dr. Scooby Irvin IG % 0.5 % Normal 0.0-0.5 [facility] Comment on above: Performed By: #### C BC #### [facility] [address] [place] [address] Dr. Scooby Irvin LYMPH # 1.3 103/ul Normal 1.2-3.8 [facility] Comment on above: Performed By: #### C BC #### [facility] [address] [place] [address] Dr. Scooby Irvin Lymphocytes/100 WBC (Bld) 13.2 % Critically low 20.5-60.0 [facility] Comment on above: Performed By: #### C BC #### [facility] [address] [place] [address] Dr. Scooby Irvin MANUAL DIFF REQ NO Normal [facility] Comment on above: Performed By: #### C BC #### [facility] [address] [place] [address] Dr. Scooby Irvin MCH (RBC) [Entitic mass] 30.0 pg Normal 26.7-34.0 [facility] Comment on above: Performed By: #### C BC #### [facility] [address] [place] [address] Dr. Scooby Irvin MCHC (RBC) [Mass/Vol] 32.0 g/dL Normal 29.9-35.2 [facility] Comment on above: Performed By: #### C BC #### [facility] [address] [place] [address] Dr. Scooby Irvin MCV (RBC) [Entitic vol] 93.8 fL Normal 81.0-99.0 [facility] Comment on above: Performed By: #### C BC #### [facility] [address] [place] [address] Dr. Scooby Irvin MONO # 0.7 103/ul Normal 0.3-0.8 [facility] Comment on above: Performed By: #### C BC #### [facility] [address] [place] [address] Dr. Scooby Irvin Monocytes/100 WBC (Bld) 7.2 % Normal 1.7-12.0 [facility] Comment on above: Performed By: #### C BC #### [facility] [address] [place] [address] Dr. Scooby Irvin NEUT # 7.5 103/ul Critically high 1.4-6.5 [facility] Comment on above: Performed By: #### C BC #### [facility] [address] [place] [address] Dr. Scooby Irvin Neutrophils/100 WBC (Bld) 78.5 % Critically high 43.0-75.0 [facility] Comment on above: Performed By: #### C BC #### [facility] [address] [place] [address] Dr. Scooby Irvin Platelet mean volume (Bld) [Entitic vol] 9.9 fL Normal 9.5-13.5 [facility] Comment on above: Performed By: #### C BC #### [facility] [address] [place] [address] Dr. Scooby Irvin PLT 230 103/ul Normal 150-450 [facility] Comment on above: Performed By: #### C BC #### [facility] [address] [place] [address] Dr. Scooby Irvin RBC 4.20 106/ul Normal 4.20-5.40 [facility] Comment on above: Performed By: #### C BC #### [facility] [address] [place] [address] Dr. Scooby Irvin WBC 9.5 103/ul Normal 4.0-11.0 [facility] Comment on above: Performed By: #### C BC #### [facility] [address] [place] [address] Dr. Scooby Irvin PROF 14(COMP METB)on 022 Albumin [Mass/Vol] 3.9 g/dL Normal 3.4-5.0 [facility] Comment on above: Performed By: #### C BC #### [facility] [address] [place] [address] Dr. Scooby Irvin Albumin/Globulin [Mass ratio] 1.0 {ratio} Normal [facility] Comment on above: Performed By: #### C BC #### [facility] [address] [place] [address] Dr. Scooby Irvin ALP [Catalytic activity/Vol] 87 U/L Normal 46-116 [facility] Comment on above: Performed By: #### C BC #### [facility] [address] [place] [address] Dr. Scooby Irvin ALT [Catalytic activity/Vol] 29 U/L Normal 14-59 [facility] Comment on above: Performed By: #### C BC #### [facility] [address] [place] [address] Dr. Scooby Irvin Anion gap [Moles/Vol] 14.1 mmol/L Normal [facility] Comment on above: Performed By: #### C BC #### [facility] [address] [place] [address] Dr. Scooby Irvin AST [Catalytic activity/Vol] 38 U/L Critically high 15-37 [facility] Comment on above: Performed By: #### C BC #### [facility] [address] [place] [address] Dr. Scooby Irvin Bilirubin [Mass/Vol] 0.5 mg/dL Normal 0.2-1.0 [facility] Comment on above: Performed By: #### C BC #### [facility] [address] [place] [address] Dr. Scooby Irvin Calcium [Mass/Vol] 9.2 mg/dL Normal 8.5-10.1 [facility] Comment on above: Performed By: #### C BC #### [facility] [address] [place] [address] Dr. Scooby Irvin Chloride [Moles/Vol] 102 mmol/L Normal 98-107 [facility] Comment on above: Performed By: #### C BC #### [facility] [address] [place] [address] Dr. Scooby Irvin CO2 [Moles/Vol] 25.7 mmol/L Normal 21.0-32.0 [facility] Comment on above: Performed By: #### C BC #### [facility] [address] [place] [address] Dr. Scooby Irvin Creatinine [Mass/Vol] 0.76 mg/dL Normal 0.55-1.02 [facility] Comment on above: Performed By: #### C BC #### [facility] [address] [place] [address] Dr. Scooby Irvin EGFR-AF SENEGALESE >60 Normal >=60 [facility] Comment on above: Performed By: #### C BC #### [facility] [address] [place] [address] Dr. Scooby Irvin EGFR-NON AF SENEGALESE >60 Normal >=60 [facility] Comment on above: Performed By: #### C BC #### [facility] [address] [place] [address] Dr. Scooby Irvin Globulin (S) [Mass/Vol] 3.8 g/dL Normal [facility] Comment on above: Performed By: #### C BC #### [facility] [address] [address] [address] Scooby Irvin Glucose [Mass/Vol] 104 mg/dL Normal 74-106 [facility] Comment on above: Performed By: #### C BC #### [facility] [address] [address] [address] Scooby Irvin Potassium [Moles/Vol] 4.8 mmol/L Normal 3.5-5.1 [facility] Comment on above: Performed By: #### C BC #### [facility] [address] [address] [address] Scooby Irvin Protein [Mass/Vol] 7.7 g/dL Normal 6.4-8.2 [facility] Comment on above: Performed By: #### C BC #### [facility] [address] [address] [address] Scooby Irvin Sodium [Moles/Vol] 137 mmol/L Normal 136-145 [facility] Comment on above: Performed By: #### C BC #### [facility] [address] [address] [address] Scooby Irvin Urea nitrogen [Mass/Vol] 9.0 mg/dL Normal 7.0-18.0 [facility] Comment on above: Performed By: #### C BC #### [facility] [address] [address] [address] Scooby Irvin Urea nitrogen/Creatinine [Mass ratio] 11.8 mg/mg Normal [facility] Comment on above: Performed By: #### C BC #### [facility] [address] [address] [address] Scooby Irvin LIPID PROFILEon 09-27-2021 CHOL-HDL RATIO NORM SEE BELOW Normal [facility] Comment on above: Result Comment: 3.3 - 4.4 LOW RISK 4.4 - 7.1 AVERAGE RISK 7.1 - 11.0 MODERATE RISK >11.0 HIGH RISK Performed By: #### C MP, LIPID #### [facility] [address] [address] [address] Scooby Irvin Cholesterol [Mass/Vol] 235 mg/dL Critically high <=200 [facility] Comment on above: Performed By: #### C MP, LIPID #### [facility] [address] [address] [address] Scooby Irvin Cholesterol in HDL [Mass/Vol] 65 mg/dL Critically high 40-60 [facility] Comment on above: Performed By: #### C MP, LIPID #### [facility] [address] [address] [address] Scooby Irvin Cholesterol in LDL [Mass/Vol] 156.8 mg/dL Normal [facility] Comment on above: Performed By: #### C MP, LIPID #### [facility] [address] [place] [address] Dr. Scooby Irvin Cholesterol.total/Ch olesterol in HDL [Mass ratio] 3.6 {ratio} Normal [facility] Comment on above: Performed By: #### C MP, LIPID #### [facility] [address] [place] [address] Dr. Scooby Irvin HDL NORMAL > or = 60 mg/dl - LO W CARDIOVASCULAR RISK <40 mg/dl - HIGH CARDIOVASCULAR RISK Normal [facility] Comment on above: Performed By: #### C MP, LIPID #### [facility] [address] [place] [address] Dr. Scooby Irvin LDL CALC NORMAL SEE BELOW Normal [facility] Comment on above: Result Comment: <100 mg/dl OPTIMAL 100 - 129 mg/dl NEAR OR ABOVE OPTIMAL 130 - 159 mg/dl BORDERLINE HIGH 160 - 189 mg/dl HIGH >190 mg/dl VERY HIGH Performed By: #### C MP, LIPID #### [facility] [address] [place] [address] Dr. Scooby Irvin Triglyceride [Mass/Vol] 66 mg/dL Normal <=150 [facility] Comment on above: Performed By: #### C MP, LIPID #### [facility] [address] [place] [address] Dr. Scooby Irvin VLDL CALC 13.2 mg/dL Normal [facility] Comment on above: Performed By: #### C MP, LIPID #### [facility] [address] [address] [address] Scooby Irvin PROF 14(COMP METB)on 022 Albumin [Mass/Vol] 3.9 g/dL Normal 3.4-5.0 [facility] Comment on above: Performed By: #### C MP, LIPID #### [facility] [address] [address] [address] Scooby Irvin Albumin/Globulin [Mass ratio] 1.1 {ratio} Normal [facility] Comment on above: Performed By: #### C MP, LIPID #### [facility] [address] [address] [address] Scooby Irvin ALP [Catalytic activity/Vol] 87 U/L Normal 46-116 [facility] Comment on above: Performed By: #### C MP, LIPID #### [facility] [address] [place] [address] Dr. Scooby Irvin ALT [Catalytic activity/Vol] 27 U/L Normal 14-59 [facility] Comment on above: Performed By: #### C MP, LIPID #### [facility] [address] [place] [address] Dr. Scooby Irvin Anion gap [Moles/Vol] 16.9 mmol/L Normal [facility] Comment on above: Performed By: #### C MP, LIPID #### [facility] [address] [place] [address] Dr. Scooby Irvin AST [Catalytic activity/Vol] 21 U/L Normal 15-37 [facility] Comment on above: Performed By: #### C MP, LIPID #### [facility] [address] [place] [address] Dr. Scooby Irvin Bilirubin [Mass/Vol] 0.4 mg/dL Normal 0.2-1.0 [facility] Comment on above: Performed By: #### C MP, LIPID #### [facility] [address] [place] [address] Dr. Scooby Irvin Calcium [Mass/Vol] 8.7 mg/dL Normal 8.5-10.1 [facility] Comment on above: Performed By: #### C MP, LIPID #### [facility] [address] [place] [address] Dr. Scooby Irvin Chloride [Moles/Vol] 102 mmol/L Normal 98-107 [facility] Comment on above: Performed By: #### C MP, LIPID #### [facility] [address] [place] [address] Dr. Scooby Irvin CO2 [Moles/Vol] 22.0 mmol/L Normal 21.0-32.0 [facility] Comment on above: Performed By: #### C MP, LIPID #### [facility] [address] [place] [address] Dr. Scooby Irvin Creatinine [Mass/Vol] 0.73 mg/dL Normal 0.55-1.02 [facility] Comment on above: Performed By: #### C MP, LIPID #### [facility] [address] [place] [address] Dr. Scooby Irvin EGFR-AF SENEGALESE >60 Normal >=60 [facility] Comment on above: Performed By: #### C MP, LIPID #### [facility] [address] [place] [address] Dr. Scooby Irvin EGFR-NON AF SENEGALESE >60 Normal >=60 [facility] Comment on above: Performed By: #### C MP, LIPID #### [facility] [address] [place] [address] Dr. Scooby Irvin Globulin (S) [Mass/Vol] 3.7 g/dL Normal [facility] Comment on above: Performed By: #### C MP, LIPID #### [facility] [address] [place] [address] Dr. Scooby Irvin Glucose [Mass/Vol] 105 mg/dL Normal 74-106 [facility] Comment on above: Performed By: #### C MP, LIPID #### [facility] [address] [place] [address] Dr. Scooby Irvin Potassium [Moles/Vol] 3.9 mmol/L Normal 3.5-5.1 [facility] Comment on above: Performed By: #### C MP, LIPID #### [facility] [address] [place] [address] Dr. Scooby Irvin Protein [Mass/Vol] 7.6 g/dL Normal 6.4-8.2 [facility] Comment on above: Performed By: #### C MP, LIPID #### [facility] [address] [address] [address] Scooby Irvin Sodium [Moles/Vol] 137 mmol/L Normal 136-145 [facility] Comment on above: Performed By: #### C MP, LIPID #### [facility] [address] [address] [address] Scooby Irvin Urea nitrogen [Mass/Vol] 11.0 mg/dL Normal 7.0-18.0 [facility] Comment on above: Performed By: #### C MP, LIPID #### [facility] [address] [place] [address] Dr. Scooby Irvin Urea nitrogen/Creatinine [Mass ratio] 15.1 mg/mg Normal [facility] Comment on above: Performed By: #### C MP, LIPID #### [facility] [address] [place] [address] Dr. Scooby Irvin TSHon 09-27-2021 TSH 2.198 uIU/mL Normal 0.358-3.74 0 [facility] Comment on above: Performed By: #### T SH #### [facility] [address] [place] [address] Dr. Scooby Irvin [facility]11 SARS-CoV-2 (COVID-19) RNA ADELITA+probe Ql (Unsp spec) Not detected Normal NOT DETECTED [facility] Comment on above: Result Comment: This test is not yet approved or cleared by the [place] FDA. When there are no FDA-approved or cleared tests available, and other criteria are met, FDA can make tests available under an emergency access mechanism called an Emergency Use Authorization (EUA). The EUA for this test is supported by the [place] of Health and Human Service's (HHS's) declaration [...] SARS-CoV-2. Performed By: #### C BC #### [facility] [address] [place] [address] Dr. Scooby Irvin TSHon 06-22-2021 TSH 2.326 uIU/mL Normal 0.358-3.74 0 [facility] Comment on above: Performed By: #### C BC #### [facility] [address] [place] [address] Dr. Scooby Irvin TSH RANGE SEE BELOW Normal [facility] Comment on above: Result Comment: <0.3 4 UIU/ml HYPERTHYROID 0.34-5.60 UIU/ml EUTHYROID >5.60 UIU/ml HYPOTHYROID Performed By: #### C BC #### [facility] [address] [place] [address] Dr. Scooby Irvin ABO/Rh Retypeon 05-31-2021 ABO/RH Recheck Result Positive Normal [facility] Comment on above: Result Comment: PERF ORMED BY: [facility] [address] [place] [address] PATHOLOGIST PESTICIDE USE MEDICAL COORDINATOR TRICIA Yin 05-31-2021 L -------- -------- Specimen: [id number] Received: 05/31/21 Status: LIDIA Pineda Num: [id number] Spec Type: Surgical Subm Dr: Luis Gutierrez DO Tissues: A Parathyroid Gland (R/O PARATHYROID) B THYROID - Lobe (R SUBSTERNAL THYROID) Procedures: HE Stain/8, Gross/Micro L5, Gross/Micro L4 -------- Patient Age/Sex Location Account Attending Physician -------- Alexandra Cervantes 71/F [place] [id number] Luis Gutierrez DO -------- SPEC NUM: [id number] RECD: 05/31/21 STATUS: LIDIA PINEDA NUM: [id number] KATHY: 05/31/21- SUBM DR: Luis Gutierrez DO ENTERED: 05/31/[address] [facility] [address]: LANCE TYPE: Surgical DEPT: S ORDERED: [...] Entirely submitted in one cassette labeled A1. (SM/JS) B. Received in 10% neutral buffered formalin, [...] inked blue. Sectioning of the sutured nodule -------- Specimen: [id number] Received: 05/31/21 Status: LIDIA Pineda Num: [id number] Spec Type: Surgical Subm Dr: Luis Gutierrez DO Tissues: A Parathyroid Gland (R/O PARATHYROID) B THYROID - Lobe (R SUBSTERNAL THYROID) Procedures: HE Stain/8, Gross/Micro L5, Gross/Micro L4 -------- Patient: SammyJey persaudha [id number] (Continued) -------- Specimen: Received: 05/31/21 (Continued) Gross Description (Continued) Signed (signature on file) Tricia Oshea MD 06/01/211912 -------- Specimen: Received: 05/31/21 Status: LIDIA Pineda Num: [id number] Spec Type: Surgical Subm Dr: Luis Gutierrez DO Tissues: A Parathyroid Gland (R/O PARATHYROID) B THYROID - Lobe (R SUBSTERNAL THYROID) Procedures: HE Stain/8, Gross/Micro L5, Gross/Micro L4 -------- Patient: Alexandra Cervantes [id number] (Continued) -------- Specimen: Received: 05/31/21 (Continued) Gross Description (Continued) [...] microscopic findings support the above pathologic diagnosis. [id number], [id number], [id number] -------- -------- Specimen: Received: (more content not included)... Normal [facility] LeukoReduced RBCon 2 LeukoReduced RBC READY Normal [facility] Type and Screenon 05-31-2021 ABO and Rh group Nom (Bld) Blood group O Rh(D) positive Normal [facility] Comment on above: Order Comment: Trans fuse now? N Result Comment: PERF ORMED BY: [address] [address] PATHOLOGIST PESTICIDE USE MEDICAL COORDINATOR TRICIA OSHEA M.D. Basic Metabolic Panelon 05-12 Calcium [Mass/Vol] 9.5 mg/dL Normal 8.2-10.[address] [facility] Comment on above: Result Comment: PERF ORMED BY: [facility] [address] [facility] [address] PATHOLOGIST PESTICIDE USE MEDICAL COORDINATOR TRICIA OSHEA M.D. Performed By: #### C BC, BMP #### [facility] [address] [place] [address] [place] Chloride [Moles/Vol] 105 mmol/L Normal 95-114 [facility] Comment on above: Performed By: #### C BC, BMP #### [address] CO2 [Moles/Vol] 23.0 mmol/L Normal 22.0-30.0 [facility] Comment on above: Performed By: #### C BC, BMP #### [facility] [address] [place] [address] [place] Creatinine [Mass/Vol] 0.66 mg/dL Normal 0.44-1.03 [facility] Comment on above: Performed By: #### C BC, BMP #### [facility] [address] [place] [address] [place] Estimated GFR ( Traci > 60 Normal [facility] Comment on above: Result Comment: GFR estimated reference range: According to KDOQI guidelines, <60 ml/min/1.73m2 is sufficient to diagnose a patient with chronic kidney disease. Performed By: #### C BC, BMP #### [facility] [address] [place] [address] [place] Estimated GFR (Non- Am > 60 Normal [facility] Comment on above: Performed By: #### C BC, BMP #### [facility] [address] [id number] [place] Glucose [Mass/Vol] 89 mg/dL Normal 70-[address] [facility] Comment on above: Result Comment: [place] om Glucose Reference Range is dependent on time and content of last meal. Glucose of more than 200 mg/dL in a nonstressed, ambulatory subject supports the diagnosis of Diabetes Mellitus. ADA recommended reference range Performed By: #### C BC, BMP #### [facility] [address] Potassium [Moles/Vol] 4.0 mmol/L Normal 3.5-5.1 [facility] Comment on above: Performed By: #### C BC, BMP #### [facility] [address] Sodium [Moles/Vol] 137 mmol/L Normal 136-[address] [facility] Comment on above: Performed By: #### C KELSEY, BMP #### [facility] [address] Urea nitrogen [Mass/Vol] 10 mg/dL Normal 9-23 [facility] Comment on above: Performed By: #### C KELSEY, BMP #### [facility] [address] Basophils Auto (Bld) [#/Vol] Ordered By: Luis Gutierrez on 05-26-2021 Basophils (Bld) [#/Vol] 0.1 10*3/uL 0.0-0.2 [facility] Basophils/100 WBC Auto (Bld) Ordered By: Luis Gutierrez on 05-26-2021 Basophils/100 WBC (Bld) 0.9 % [facility] Blood hemoglobin measurement (mass/volume)Ordered By: Luis Gutierrez on 05-26-2021 Hemoglobin (Bld) [Mass/Vol] 12.4 g/dL 11.8-15.4 [facility] Blood leukocytes automated c ount (number/volume)Ordered By: Luis Gutierrez on 05-26-2021 WBC (Bld) [#/Vol] 8.8 10*3/uL 4.5-11.[address] [facility] COVID-19 FRMCon 05-26-2021 SARS-CoV-2 (COVID-19) RNA ADELITA+probe Ql (Unsp spec) Negative Normal Negative [facility] Comment on above: Order Comment: Healt hcare Worker?: N Result Comment: Testing for SARS-CoV-2 by RT-PCR This test was developed and its performance characteristics determined by [employer] (BD) and validated at the [facility]. This test has not been FDA [...] is terminated or revoked sooner. PERFORMED BY: [place] [address] PATHOLOGIST PESTICIDE USE MEDICAL COORDINATOR TRCIIA OSHEA M.D. Performed By: #### C OVID 19 [facility] #### [address] COVID-19 Positive/NegativeOr dered By: Luis Gutierrez on 05-26-2021 SARS-CoV-2 (COVID-19) N gene ADELITA+probe Ql (Resp) Negative Negative [facility] Comment on above: Testing for SARS-CoV -2 by RT-PCRThis test was developed and its performance characteristics determined by [employer]) and validated at the [facility]. This test has not been FDA [...] 05-26-2021 Calcium [Mass/Vol] 9.4 mg/dL Normal 8.2-10.[address] [facility] Comment on above: Performed By: #### C A, TSH3, PTH #### [address] Complete Blood Count Auto Di ffon 05-26-2021 Basophils (Bld) [#/Vol] 0.1 10*3/uL Normal 0.0-0.2 [facility] Comment on above: Result Comment: PERF ORMED BY: [place] [address] PATHOLOGIST PESTICIDE USE MEDICAL COORDINATOR TRICIA OSHEA M.D. Performed By: #### C BC, BMP #### [address] Basophils/100 WBC (Bld) 0.9 % Normal . [facility] Comment on above: Performed By: #### C BC, BMP #### [address] Eosinophils (Bld) [#/Vol] 0.0 10*3/uL Normal 0.0-0.45 [facility] Comment on above: Performed By: #### C BC, BMP #### [address] Eosinophils/100 WBC (Bld) 0.2 % Normal . [facility] Comment on above: Performed By: #### C BC, BMP #### [address] Erythrocyte distribution width (RBC) [Ratio] 16.1 % High 11.9-15.3 [facility] Comment on above: Performed By: #### C BC, BMP #### [place] [address] [place] Hematocrit (Bld) [Volume fraction] 37.5 % Normal 34.0-46.4 [facility] Comment on above: Performed By: #### C BC, BMP #### [address] Hemoglobin (Bld) [Mass/Vol] 12.4 g/dL Normal 11.8-15.4 [facility] Comment on above: Performed By: #### C BC, BMP #### [address] Lymphocytes (Bld) [#/Vol] 1.4 10*3/uL Normal 1.00-4.8 [facility] Comment on above: Performed By: #### C BC, BMP #### [address] Lymphocytes/100 WBC (Bld) 15.8 % Normal . [facility] Comment on above: Performed By: #### C BC, BMP #### [address] MCH (RBC) [Entitic mass] 29.2 pg Normal 24.7-34.3 [facility] Comment on above: Performed By: #### C BC, BMP #### [address] MCV (RBC) [Entitic vol] 88.3 fL Normal 80-100 [facility] Comment on above: Performed By: #### C BC, BMP #### [address] Mean Corpuscular HGB Conc 33.1 g/dL Normal 32.0-35.0 [facility] Comment on above: Performed By: #### C BC, BMP #### [address] Monocytes (Bld) [#/Vol] 0.7 10*3/uL Normal 0.0-0.8 [facility] Comment on above: Performed By: #### C BC, BMP #### [address] Monocytes/100 WBC (Bld) 7.7 % Normal . [facility] Comment on above: Performed By: #### C BC, BMP #### [facility] [address] [place] [address] [place] Neutrophils (Bld) [#/Vol] 6.7 10*3/uL Normal 1.8-7.7 [facility] Comment on above: Performed By: #### C BC, BMP #### [facility] [address] Neutrophils/100 WBC (Bld) 75.4 % Normal . [facility] Comment on above: Performed By: #### C BC, BMP #### [facility] [address] Nucleated RBC/100 WBC (Bld) [Ratio] 0.1 % Normal 0-0.5 [facility] Comment on above: Performed By: #### C BC, BMP #### [facility] [address] [place] [address] [place] Platelet mean volume (Bld) [Entitic vol] 8.6 fL Normal 6.3-10.7 [facility] Comment on above: Performed By: #### C BC, BMP #### [facility] [address] [place] [address] [place] Platelets (Bld) [#/Vol] 241 10*3/uL Normal 150-450 [facility] Comment on above: Performed By: #### C BC, BMP #### [facility] [address] [place] [address] [place] RBC (Bld) [#/Vol] 4.24 10*6/uL Normal 3.60-5.00 [facility] Comment on above: Performed By: #### C BC, BMP #### [facility] [address] [place] [address] [place] WBC (Bld) [#/Vol] 8.8 10*3/uL Normal 4.5-11.[address] [facility] Comment on above: Performed By: #### C BC, BMP #### [facility] [address] [place] [address] [place] Creatinine and Glomerular fi ltration rate.predicted panel (S/P/Bld)Ordered By: Luis Gutierrez on 05-26-2021 Creatinine [Mass/Vol] 0.66 mg/dL 0.44-1.03 [facility] ECG 12 lead ECGon 05-26-2021 ECG 12 lead ECG [facility] [address] [place] [address] [place] [address] Electrocardiograph Report Signed Patient: Alexandra Cervantes MR#: [id number] 2 : 1950 Acct:[id number] Age/Sex: 71 / F ADM Date: 05/26/21 Loc: Room: Type: [facility] Attending Dr: Luis Gutierrez DO Ordering [...] Electronically Signed By:FREDI HAINES DO Transcribed By: MUS Signed By Fredi Haines DO 05/27 0848 Normal [facility] Eosinophils Auto (Bld) [#/Vo l]Ordered By: Luis Gutierrez on 05-26-2021 Eosinophils (Bld) [#/Vol] 0.0 10*3/uL 0.0-0.45 [facility] Eosinophils/100 WBC Auto (Bl d)Ordered By: Luis Gutierrez on 05-26-2021 Eosinophils/100 WBC (Bld) 0.2 % [facility] Erythrocyte distribution wid th Auto (RBC) [Ratio]Ordered By: Luis Gutierrez on 05-26-2021 Erythrocyte distribution width (RBC) [Ratio] 16.1 % 11.9-15.3 [facility] Estimated glomerular filtrat ion rate (GFR) non- AmericanOrdered By: Luis Gutierrez on 05-26-2021 GFR/1.73 sq M.predicted among non-blacks MDRD (S/P/Bld) [Vol rate/Area] > 60 mL/Min [facility] Hematocrit Auto (Bld) [Volum e fraction]Ordered By: Luis Gutierrez on 05-26-2021 Hematocrit (Bld) [Volume fraction] 37.5 % 34.0-46.4 [facility] Laboratory - Hematology and Cell countsOrdered By: Luis Gutierrez on 05-26-2021 Nucleated RBC/100 WBC (Bld) [Ratio] 0.1 % 0-0.5 [facility] Lymphocytes Auto (Bld) [#/Vo l]Ordered By: Luis Gutierrez on 05-26-2021 Lymphocytes (Bld) [#/Vol] 1.4 10*3/uL 1.00-4.8 [facility] Lymphocytes/100 WBC Auto (Bl d)Ordered By: Luis Gutierrez on 05-26-2021 Lymphocytes/100 WBC (Bld) 15.8 % [facility] MCH Auto (RBC) [Entitic mass ]Ordered By: Luis Gutierrez on 05-26-2021 MCH (RBC) [Entitic mass] 29.2 pg 24.7-34.3 [facility] MCHC Auto (RBC) [Mass/Vol]Or dered By: Luis Gutierrez on 05-26-2021 MCHC (RBC) [Mass/Vol] 33.1 g/dL 32.0-35.0 [facility] MCV Auto (RBC) [Entitic vol] Ordered By: Luis Gutierrez on 05-26-2021 MCV (RBC) [Entitic vol] 88.3 fL 80-100 [facility] Monocytes Auto (Bld) [#/Vol] Ordered By: Luis Gutierrez on 05-26-2021 Monocytes (Bld) [#/Vol] 0.7 10*3/uL 0.0-0.8 [facility] Monocytes/100 WBC Auto (Bld) Ordered By: Luis Gutierrez on 05-26-2021 Monocytes/100 WBC (Bld) 7.7 % [facility] Neutrophils Auto (Bld) [#/Vo l]Ordered By: Luis Gutierrez on 05-26-2021 Neutrophils (Bld) [#/Vol] 6.7 10*3/uL 1.8-7.7 [facility] Neutrophils/100 WBC Auto (Bl d)Ordered By: Luis Gutierrez on 05-26-2021 Neutrophils/100 WBC (Bld) 75.4 % [facility] No Panel InformationOrdered By: Luis Gutierrez on 05-26-2021 Estimated GFR () > 60 mL/Min [facility] Comment on above: GFR estimated refere nce range: According to KDOQI guidelines, <60 ml/min/1.73m2 is sufficient to diagnose a patient with chronic kidney disease. Pharmacy Creatinine Clearance (Chem N/A [facility] Parathyroid Hormone Intacton 05-26-2021 Parathyroid Hormone Intact 31.2 pg/mL Normal 12-88 [facility] Comment on above: Result Comment: PERF ORMED BY: [place] [address] PATHOLOGIST PESTICIDE USE MEDICAL COORDINATOR TRICIA OSHEA M.D. Performed By: #### C BC, BMP #### [address] Platelet mean volume Auto (B ld) [Entitic vol]Ordered By: Luis Gutierrez on 05-26-2021 Platelet mean volume (Bld) [Entitic vol] 8.6 fL 6.3-10.7 [facility] Platelets Auto (Bld) [#/Vol] Ordered By: Luis Gutierrez on 05-26-2021 Platelets (Bld) [#/Vol] 241 10*3/uL 150-450 [facility] RBC Auto (Bld) [#/Vol]Ordere d By: Luis Gutierrez on 05-26-2021 RBC (Bld) [#/Vol] 4.24 10*6/uL 3.60-5.00 [facility] Serum or plasma calcium joseph urement (mass/volume)Ordered By: Luis Gutierrez on 05-26-2021 Calcium [Mass/Vol] 9.4 mg/dL 8.2-10.[address] [facility] Serum or plasma chloride liv surement (moles/volume)Ordered By: Luis Gutierrez on 05-26-2021 Chloride [Moles/Vol] 105 mmol/L 95-114 [facility] Serum or plasma glucose joseph urement (mass/volume)Ordered By: Luis Gutierrez on 05-26-2021 Glucose [Mass/Vol] 89 mg/dL 70-[address] [facility] Comment on above: ADA recommended refe rence rangeRandom Glucose Reference Range is dependent on time and content of last meal. Glucose of more than 200 mg/dL in a nonstressed, ambulatory subject supports the diagnosis of Diabetes Mellitus. Serum or plasma intact parat hyroid hormone measurement (mass/volume)Ordered By: Luis Gutierrez on 05-26-2021 Parathyrin.intact [Mass/Vol] 31.2 pg/mL 12 [facility] Serum or plasma potassium me asurement (moles/volume)Ordered By: Luis Gutierrez on 05-26-2021 Potassium [Moles/Vol] 4.0 mmol/L 3.5-5.1 [facility] Serum or plasma sodium measu rement (moles/volume)Ordered By: Luis Gutierrez on 05-26-2021 Sodium [Moles/Vol] 137 mmol/L 136-[address] [facility] Serum or plasma total carbon dioxide measurement (moles/volume)Ordered By: Luis Gutierrez on 05-26-2021 CO2 [Moles/Vol] 23.0 mmol/L 22.0-30.0 [facility] Serum or plasma urea nitroge n measurement (mass/volume)Ordered By: Luis Gutierrez on 05-26-2021 Urea nitrogen [Mass/Vol] 10 mg/dL 11-03 [facility] TSH DL <= 0.005 mIU/L QnOrde red By: Luis Guteirrez on 05-26-2021 TSH Qn 0.86 m[IU]/L 0.45-5.33 [facility] Thyroid Stimulating Hormoneo n 05-26-2021 TSH Qn 0.86 m[IU]/L Normal 0.45-5.33 [facility] Comment on above: Performed By: #### C A, TSH3, PTH #### [facility] [address] MG MAMM SCREEN 3D GEORGES CADon 05-22-2021 MG MAMM SCREEN 3D GEORGES CAD Patient: ALEXANDRA CERVANTES Exam Date: 05/22/2021 : 1950 Gender:F Ordering : DR LAURITA MORALES M.D. Admission #: [id number] Family : Order #: [id number] CLICK HERE TO VIEW EXAM RADIOLOGY REPORT [...] No Treatments None Family Cancers None LOCATION: [facility] BREAST COMPOSITION: Scattered areas fibroglandular density. FINDINGS: [...] Killian MD on 05/22/2021 at 12:06 Normal [facility] CT Chest w/Contraston 2021 CT Chest w/Contrast Please see CT neck r eport dated: 05/17/2021. Report reported and signed by Fuentes Lion on 05/22/2021 1528 Normal [facility] Ent Physician CT Soft Tissue Neck w/ Contr ast*on [...] by Fuentes Lion on 05/22/2021 1528 Normal [facility] [place] esophaguson 05-04-2021 [place] esophagus [facility] [place] [address] Fluoroscopy Report Signed Patient: Alexandra Cervantes MR#: [id number] 2 : 1950 Acct:[id number] Age/Sex: 71 / F ADM Date: 05/04/21 Loc: XD Room: Type: [facility] Attending Dr: Cy Sears MD Ordering Provider: [...] Kitchen Jr., M.D.05/04/2021 3:37 PM Dictation Location: [place] [address] Transcribed By: [facility] 05/04/211536 Dictated By: Selvin Kitchen Jr, MD 05/04/211531 Signed By: 05/04/211536 [facility] CBC AUTO DIFFon 04-20-2021 BASO # 0.1 103/ul Normal 0.0-0.1 [facility] Comment on above: Performed By: #### C BC #### [facility] [address] [place] [address] Dr. Scooby Irvin Basophils/100 WBC (Bld) 0.4 % Normal 0.2-2.0 [facility] Comment on above: Performed By: #### C BC #### [facility] [address] [place] [address] Dr. Scooby Irvin EO # 0.0 103/ul Normal 0.0-0.7 [facility] Comment on above: Performed By: #### C BC #### [facility] [address] [place] [address] Dr. Scooby Irvin Eosinophils/100 WBC (Bld) 0.2 % Critically low 0.9-7.0 [facility] Comment on above: Performed By: #### C BC #### [facility] [address] [place] [address] Dr. Scooby Irvin Erythrocyte distribution width (RBC) [Ratio] 16.7 % Critically high 11.0-15.0 [facility] Comment on above: Performed By: #### C BC #### [facility] [address] [place] [address] Dr. Scooby Irvin Hematocrit (Bld) [Volume fraction] 37.6 % Normal 36.0-48.0 [facility] Comment on above: Performed By: #### C BC #### [facility] [address] [place] [address] Dr. Scooby Irvin Hemoglobin (Bld) [Mass/Vol] 12.0 g/dL Normal 12.0-16.0 [facility] Comment on above: Performed By: #### C BC #### [facility] [address] [place] [address] Dr. Scooby Irvin IG # 0.02 10e3/ul Normal 0.00-0.03 [facility] Comment on above: Performed By: #### C BC #### [facility] [address] [place] [address] Dr. Scooby Irvin IG % 0.2 % Normal 0.0-0.5 [facility] Comment on above: Performed By: #### C BC #### [facility] [address] [place] [address] Dr. Scooby Irvin LYMPH # 1.6 103/ul Normal 1.2-3.8 [facility] Comment on above: Performed By: #### C BC #### [facility] [address] [place] [address] Dr. Scooby Irvin Lymphocytes/100 WBC (Bld) 13.6 % Critically low 20.5-60.0 [facility] Comment on above: Performed By: #### C BC #### [facility] [address] [place] [address] Dr. Scooby Irvin MANUAL DIFF REQ NO Normal [facility] Comment on above: Performed By: #### C BC #### [facility] [address] [place] [address] Dr. Scooby Irvin MCH (RBC) [Entitic mass] 28.6 pg Normal 26.7-34.0 [facility] Comment on above: Performed By: #### C BC #### [facility] [address] [place] [address] Dr. Scooby Irvin MCHC (RBC) [Mass/Vol] 31.9 g/dL Normal 29.9-35.2 [facility] Comment on above: Performed By: #### C BC #### [facility] [address] [place] [address] [address] Scooby Irvin MCV (RBC) [Entitic vol] 89.5 fL Normal 81.0-99.0 [facility] Comment on above: Performed By: #### C BC #### [facility] [address] [place] [address] [address] Scooby Irvin MONO # 0.7 103/ul Normal 0.3-0.8 [facility] Comment on above: Performed By: #### C BC #### [facility] [address] [place] [address] Dr. Scooby Irvin Monocytes/100 WBC (Bld) 5.8 % Normal 1.7-12.0 [facility] Comment on above: Performed By: #### C BC #### [facility] [address] [place] [address] Dr. Scooby Irvin NEUT # 9.1 103/ul Critically high 1.4-6.5 [facility] Comment on above: Performed By: #### C BC #### [facility] [address] [place] [address] Dr. Scooby Irvin Neutrophils/100 WBC (Bld) 79.8 % Critically high 43.0-75.0 [facility] Comment on above: Performed By: #### C BC #### [facility] [address] [place] [address] Dr. Scooby Irvin Platelet mean volume (Bld) [Entitic vol] 10.2 fL Normal 9.5-13.5 [facility] Comment on above: Performed By: #### C BC #### [facility] [address] [place] [address] Dr. Scooby Irvin PLT 217 103/ul Normal 150-450 [facility] Comment on above: Performed By: #### C BC #### [facility] [address] [place] [address] [address] Scooby Irvin RBC 4.20 106/ul Normal 4.20-5.40 [facility] Comment on above: Performed By: #### C BC #### [facility] [address] [place] [address] Dr. Scooby Irvin WBC 11.4 103/ul Critically high 4.0-11.0 [facility] Comment on above: Performed By: #### C BC #### [facility] [address] [place] [address] Dr. Scooby Irvin PROF 14(COMP METB)on 022 Albumin [Mass/Vol] 3.9 g/dL Normal 3.5-5.0 [facility] Comment on above: Performed By: #### C MP #### [facility] [address] [place] [address] Dr. Scooby Irvin Albumin/Globulin [Mass ratio] 1.1 {ratio} Normal [facility] Comment on above: Performed By: #### C MP #### [facility] [address] [place] [address] Dr. Scooby Irvin ALP [Catalytic activity/Vol] 72 U/L Normal 38-126 [facility] Comment on above: Performed By: #### C MP #### [facility] [address] [place] [address] Dr. Scooby Irvin ALT [Catalytic activity/Vol] 23 U/L Normal 9-52 [facility] Comment on above: Performed By: #### C MP #### [facility] [address] [place] [address] Dr. Scooby Irvin Anion gap [Moles/Vol] 10.2 mmol/L Normal [facility] Comment on above: Performed By: #### C MP #### [facility] [address] [place] [address] Dr. Scooby Irvin AST [Catalytic activity/Vol] 20 U/L Normal 14-36 [facility] Comment on above: Performed By: #### C MP #### [facility] [address] [place] [address] Dr. Scooby Irvin Bilirubin [Mass/Vol] 0.5 mg/dL Normal 0.2-1.3 [facility] Comment on above: Performed By: #### C MP #### [facility] [address] [place] [address] Dr. Scooby Irvin Calcium [Mass/Vol] 8.8 mg/dL Normal 8.4-10.2 [facility] Comment on above: Performed By: #### C MP #### [facility] [address] [place] [address] Dr. Scooby Irvin Chloride [Moles/Vol] 104 mmol/L Normal 98-107 [facility] Comment on above: Performed By: #### C MP #### [facility] [address] [place] [address] Dr. Scooby Irvin CO2 [Moles/Vol] 28.0 mmol/L Normal 22.0-30.0 [facility] Comment on above: Performed By: #### C MP #### [facility] [address] [place] [address] Dr. Scooby Irvin Creatinine [Mass/Vol] 0.87 mg/dL Normal 0.52-1.04 [facility] Comment on above: Performed By: #### C MP #### [facility] [address] [place] [address] Dr. Scoboy Irvin EGFR-AF SENEGALESE >60 Normal >=60 [facility] Comment on above: Performed By: #### C MP #### [facility] [address] [place] [address] Dr. Scooby Irvin EGFR-NON AF SENEGALESE >60 Normal >=60 [facility] Comment on above: Performed By: #### C MP #### [facility] [address] [place] [address] Dr. Scooby Irvin Globulin (S) [Mass/Vol] 3.5 g/dL Normal [facility] Comment on above: Performed By: #### C MP #### [facility] [address] [place] [address] Dr. Scooby Irvin Glucose [Mass/Vol] 93 mg/dL Normal 74-106 [facility] Comment on above: Performed By: #### C MP #### [facility] [address] [place] [address] [address] Scooby Irvin Potassium [Moles/Vol] 4.2 mmol/L Normal 3.4-5.0 [facility] Comment on above: Performed By: #### C MP #### [facility] [address] [place] [address] [address] Scooby Irvin Protein [Mass/Vol] 7.4 g/dL Normal 6.1-8.2 [facility] Comment on above: Performed By: #### C MP #### [facility] [address] [place] [address] [address] Scooby Irvin Sodium [Moles/Vol] 138 mmol/L Normal 137-145 [facility] Comment on above: Performed By: #### C MP #### [facility] [address] [place] [address] [address] Scooby Irvin Urea nitrogen [Mass/Vol] 15.0 mg/dL Normal 7.0-17.0 [facility] Comment on above: Performed By: #### C MP #### [facility] [address] [place] [address] [address] Scooby Irvin Urea nitrogen/Creatinine [Mass ratio] 17.2 mg/mg Normal [facility] Comment on above: Performed By: #### C MP #### [facility] [address] [place] [address] [address] Scooby Irvin PET CT SKULL BASE MID THIGHo n 04-07-[address] SKULL BASE MID THIGH EXAMINATION: PET CT SKULL BASE MID THIGH HISTORY: Lung field abnormal COMPARISON: [facility] TECHNIQUE: After obtaining the patient's consent, [id number] [...] by: FUENTES BARRETO Date: 2021-04-07 08:23 Normal [facility] CT LUNG CANCER SCREENINGon 0 03-23-2021 CT [...] FUENTES BARRETO Date: 2021-03-23 09:57 Normal [facility] CBC AUTO DIFFon 03-09-2021 BASO # 0.1 103/ul Normal 0.0-0.1 [facility] Comment on above: Performed By: #### C BC #### [facility] [address] [place] [address] [address] Scooby Irvin Basophils/100 WBC (Bld) 1.2 % Normal 0.2-2.0 [facility] Comment on above: Performed By: #### C BC #### [place] [facility] [address] [address] [address] Scooby Irvin EO # 0.1 103/ul Normal 0.0-0.7 [facility] Comment on above: Performed By: #### C BC #### [facility] [address] [place] [address] Dr. Scooby Irvin Eosinophils/100 WBC (Bld) 1.4 % Normal 0.9-7.0 [facility] Comment on above: Performed By: #### C BC #### [facility] [address] [address] [address] Scooby Irvin Erythrocyte distribution width (RBC) [Ratio] 16.3 % Critically high 11.0-15.0 [facility] Comment on above: Performed By: #### C BC #### [facility] [address] [place] [address] Dr. Scooby Irvin Hematocrit (Bld) [Volume fraction] 39.6 % Normal 36.0-48.0 [facility] Comment on above: Performed By: #### C BC #### [facility] [address] [address] [address] Scooby Irvin Hemoglobin (Bld) [Mass/Vol] 12.6 g/dL Normal 12.0-16.0 [facility] Comment on above: Performed By: #### C BC #### [facility] [address] [address] [address] Scooby Irvin IG # 0.01 10e3/ul Normal 0.00-0.03 [facility] Comment on above: Performed By: #### C BC #### [facility] [address] [place] [address] Dr. Scooby Irvin IG % 0.2 % Normal 0.0-0.5 [facility] Comment on above: Performed By: #### C BC #### [facility] [address] [place] [address] Dr. Scooby Irvin LYMPH # 1.6 103/ul Normal 1.2-3.8 [facility] Comment on above: Performed By: #### C BC #### [facility] [address] [place] [address] Dr. Scooby Irvin Lymphocytes/100 WBC (Bld) 30.7 % Normal 20.5-60.0 [facility] Comment on above: Performed By: #### C BC #### [facility] [address] [place] [address] Dr. Scooby Irvin MANUAL DIFF REQ NO Normal [facility] Comment on above: Performed By: #### C BC #### [facility] [address] [place] [address] Dr. Scooby Irvin MCH (RBC) [Entitic mass] 28.4 pg Normal 26.7-34.0 [facility] Comment on above: Performed By: #### C BC #### [facility] [address] [place] [address] Dr. Scooby Irvin MCHC (RBC) [Mass/Vol] 31.8 g/dL Normal 29.9-35.2 [facility] Comment on above: Performed By: #### C BC #### [facility] [address] [place] [address] Dr. Scooby Irvin MCV (RBC) [Entitic vol] 89.2 fL Normal 81.0-99.0 [facility] Comment on above: Performed By: #### C BC #### [facility] [address] [place] [address] Dr. Scooby Irvin MONO # 0.6 103/ul Normal 0.3-0.8 [facility] Comment on above: Performed By: #### C BC #### [facility] [address] [place] [address] Dr. Scooby Irvin Monocytes/100 WBC (Bld) 11.5 % Normal 1.7-12.0 [facility] Comment on above: Performed By: #### C BC #### [facility] [address] [place] [address] Dr. Scooby Irvin NEUT # 2.8 103/ul Normal 1.4-6.5 [facility] Comment on above: Performed By: #### C BC #### [facility] [address] [place] [address] Dr. Scooby Irvin Neutrophils/100 WBC (Bld) 55.0 % Normal 43.0-75.0 [facility] Comment on above: Performed By: #### C BC #### [facility] [address] [place] [address] Dr. Scooby Irvin Platelet mean volume (Bld) [Entitic vol] 10.3 fL Normal 9.5-13.5 [facility] Comment on above: Performed By: #### C BC #### [facility] [address] [place] [address] Dr. Scooby Irvin PLT 208 103/ul Normal 150-450 [facility] Comment on above: Performed By: #### C BC #### [facility] [address] [place] [address] Dr. Scooby Irvin RBC 4.44 106/ul Normal 4.20-5.40 [facility] Comment on above: Performed By: #### C BC #### [facility] [address] [place] [address] Dr. Scooby Irvin WBC 5.1 103/ul Normal 4.0-11.0 [facility] Comment on above: Performed By: #### C BC #### [facility] [address] [place] [address] Dr. Scooby Irvin FREE T4on 03-09-2021 Free T4 [Mass/Vol] 1.15 ng/dL Normal 0.78-2.19 [facility] Comment on above: Performed By: #### C BC #### [facility] [address] [place] [address] Dr. Scooby Irvin LIPID PROFILEon 03-09-2021 CHOL-HDL RATIO NORM SEE BELOW Normal [facility] Comment on above: Result Comment: 3.3 - 4.4 LOW RISK 4.4 - 7.1 AVERAGE RISK 7.1 - 11.0 MODERATE RISK >11.0 HIGH RISK Performed By: #### L IPID, CMP, TSH #### [facility] [address] [place] [address] Dr. Scooby Irvin Cholesterol [Mass/Vol] 227 mg/dL Critically high <=200 [facility] Comment on above: Performed By: #### L IPID, CMP, TSH #### [facility] [address] [place] [address] Dr. Scooby Irvin Cholesterol in HDL [Mass/Vol] 65 mg/dL Normal [facility] Comment on above: Performed By: #### L IPID, CMP, TSH #### [facility] [address] [place] [address] Dr. Scooby Irvin Cholesterol in LDL [Mass/Vol] 142.6 mg/dL Normal [facility] Comment on above: Performed By: #### L IPID, CMP, TSH #### [facility] [address] [place] [address] Dr. Scooby Irvin Cholesterol.total/Ch olesterol in HDL [Mass ratio] 3.5 {ratio} Normal [facility] Comment on above: Performed By: #### L IPID, CMP, TSH #### [facility] [address] [place] [address] Dr. Scooby Irvin HDL NORMAL > or = 60 mg/dl - LO W CARDIOVASCULAR RISK <40 mg/dl - HIGH CARDIOVASCULAR RISK Normal [facility] Comment on above: Performed By: #### L IPID, CMP, TSH #### [facility] [address] [place] [address] Dr. Scooby Irvin LDL CALC NORMAL SEE BELOW Normal [facility] Comment on above: Result Comment: <100 mg/dl OPTIMAL 100 - 129 mg/dl NEAR OR ABOVE OPTIMAL 130 - 159 mg/dl BORDERLINE HIGH 160 - 189 mg/dl HIGH >190 mg/dl VERY HIGH Performed By: #### L IPID, CMP, TSH #### [facility] [address] [address] [address] Scooby Irvin Triglyceride [Mass/Vol] 97 mg/dL Normal <=150 [facility] Comment on above: Performed By: #### L IPID, CMP, TSH #### [facility] [address] [address] [address] Scooby Irvin VLDL CALC 19.4 mg/dL Normal [facility] Comment on above: Performed By: #### L IPID, CMP, TSH #### [facility] [address] [address] [address] Scooby Irvin PROF 14(COMP METB)on 022 Albumin [Mass/Vol] 4.0 g/dL Normal 3.5-5.0 [facility] Comment on above: Performed By: #### L IPID, CMP, TSH #### [facility] [address] [place] [address] Dr. Scooby Irvin Albumin/Globulin [Mass ratio] 1.1 {ratio} Normal [facility] Comment on above: Performed By: #### L IPID, CMP, TSH #### [facility] [address] [place] [address] Dr. Scooby Irvin ALP [Catalytic activity/Vol] 80 U/L Normal 38-126 [facility] Comment on above: Performed By: #### L IPID, CMP, TSH #### [facility] [address] [address] [address] Scooby Irvin ALT [Catalytic activity/Vol] 35 U/L Normal 9-52 [facility] Comment on above: Performed By: #### L IPID, CMP, TSH #### [facility] [address] [address] [address] Scooby Irvin Anion gap [Moles/Vol] 11.8 mmol/L Normal [facility] Comment on above: Performed By: #### L IPID, CMP, TSH #### [facility] [address] [place] [address] Dr. Scooby Irvin AST [Catalytic activity/Vol] 24 U/L Normal 14-36 [facility] Comment on above: Performed By: #### L IPID, CMP, TSH #### [facility] [address] [place] [address] Dr. Scooby Irvin Bilirubin [Mass/Vol] 0.5 mg/dL Normal 0.2-1.3 [facility] Comment on above: Performed By: #### L IPID, CMP, TSH #### [facility] [address] [place] [address] Dr. Scooby Irvin Calcium [Mass/Vol] 9.3 mg/dL Normal 8.4-10.2 [facility] Comment on above: Performed By: #### L IPID, CMP, TSH #### [facility] [address] [place] [address] Dr. Scooby Irvin Chloride [Moles/Vol] 105 mmol/L Normal 98-107 [facility] Comment on above: Performed By: #### L IPID, CMP, TSH #### [facility] [address] [place] [address] Dr. Scooby Irvin CO2 [Moles/Vol] 26.2 mmol/L Normal 22.0-30.0 [facility] Comment on above: Performed By: #### L IPID, CMP, TSH #### [facility] [address] [place] [address] Dr. Scooby Irvin Creatinine [Mass/Vol] 0.83 mg/dL Normal 0.52-1.04 [facility] Comment on above: Performed By: #### L IPID, CMP, TSH #### [facility] [address] [place] [address] Dr. Scooby Irvin EGFR-AF SENEGALESE >60 Normal >=60 [facility] Comment on above: Performed By: #### L IPID, CMP, TSH #### [facility] [address] [place] [address] Dr. Scooby Irvin EGFR-NON AF SENEGALESE >60 Normal >=60 [facility] Comment on above: Performed By: #### L IPID, CMP, TSH #### [facility] [address] [place] [address] Dr. Scooby Irvin Globulin (S) [Mass/Vol] 3.8 g/dL Normal [facility] Comment on above: Performed By: #### L IPID, CMP, TSH #### [facility] [address] [address] [address] Scooby Irvin Glucose [Mass/Vol] 112 mg/dL Critically high 74-106 [facility] Comment on above: Performed By: #### L IPID, CMP, TSH #### [facility] [address] [place] [address] Dr. Scooby Irvin Potassium [Moles/Vol] 4.0 mmol/L Normal 3.4-5.0 [facility] Comment on above: Performed By: #### L IPID, CMP, TSH #### [facility] [address] [place] [address] Dr. Scooby Irvin Protein [Mass/Vol] 7.8 g/dL Normal 6.1-8.2 [facility] Comment on above: Performed By: #### L IPID, CMP, TSH #### [facility] [address] [place] [address] Dr. Scooby Irvin Sodium [Moles/Vol] 139 mmol/L Normal 137-145 [facility] Comment on above: Performed By: #### L IPID, CMP, TSH #### [facility] [address] [place] [address] Dr. Scooby Irvin Urea nitrogen [Mass/Vol] 15.0 mg/dL Normal 7.0-17.0 [facility] Comment on above: Performed By: #### L IPID, CMP, TSH #### [facility] [address] [place] [address] Dr. Scooby Irvin Urea nitrogen/Creatinine [Mass ratio] 18.1 mg/mg Normal [facility] Comment on above: Performed By: #### L IPID, CMP, TSH #### [facility] [address] [place] [address] Dr. Scooby Irvin TSHon 03-09-2021 TSH 2.761 uIU/mL Normal 0.470-4.68 0 [facility] Comment on above: Performed By: #### L IPID, CMP, TSH #### [facility] [address] [place], [place] [address] Dr. Scooby Irvin TSH RANGE SEE BELOW Normal [facility] Comment on above: Result Comment: <0.3 4 UIU/ml HYPERTHYROID 0.34-5.60 UIU/ml EUTHYROID >5.60 UIU/ml HYPOTHYROID Performed By: #### L IPID, CMP, TSH #### [facility] [address] [place], [place] [address] Dr. Scooby Irvin Vital Signs Date Time Vital Sign Value Performing Clinician Facility 03-20-2024 10:54-0500 Blood Pressure Location Salazar Sar[facility] 03-20-2024 10:54-0500 Diastolic blood pressure 74 mm[Hg] Salazar Sar[facility] 03-20-2024 10:54-0500 Heart rate 71 /min Salazar Sar[facility] 03-20-2024 10:54-0500 Systolic blood pressure 129 mm[Hg] Salazar Sar[facility] 01-30-2024 13:46-0500 Diastolic blood pressure 82 mm[Hg] Salazar Sar[facility] 01-30-2024 13:46-0500 Mean blood pressure 104 mm[Hg] Salazar Sar[facility] 01-30-2024 13:46-0500 Systolic blood pressure 148 mm[Hg] Salazar Sarmini [facility] 01-30-2024 13:41-0500 Blood Pressure Location Salazar Sarmini [facility] 01-30-2024 13:41-0500 Diastolic blood pressure 85 mm[Hg] Salazar Sar[facility] 01-30-2024 13:41-0500 Heart rate 80 /min Salazar Sar[facility] 01-30-2024 13:41-0500 Systolic blood pressure 157 mm[Hg] Salazar Sar[facility] 01-15-2024 13:25-0500 Diastolic blood pressure 86 mm[Hg] Salazar Sarmini [facility] 01-15-2024 13:25-0500 Heart rate 79 /min Salazar Sarmini [facility] 01-15-2024 13:25-0500 Mean blood pressure 108 mm[Hg] Salazar Sarmini [facility] 01-15-2024 13:25-0500 Respiratory rate 17 /min Salazar Sarmini [facility] 01-15-2024 13:25-0500 SaO2% (BldA) [Mass fraction] 96 % Salazar Sarmini [facility] 01-15-2024 13:25-0500 Systolic blood pressure 153 mm[Hg] Salazar Sarmini [facility] 01-15-2024 13:15-0500 Diastolic blood pressure 81 mm[Hg] Salazar Sarmini [facility] 01-15-2024 13:15-0500 Heart rate 79 /min Salazar Sarmini [facility] 01-15-2024 13:15-0500 Mean blood pressure 103 mm[Hg] Salazar Sarmini [facility] 01-15-2024 13:15-0500 Respiratory rate 17 /min Salazar Sarmini [facility] 01-15-2024 13:15-0500 SaO2% (BldA) [Mass fraction] 96 % Salazar Sarmini [facility] 01-15-2024 13:15-0500 Systolic blood pressure 148 mm[Hg] Salazar Sarmini [facility] 01-15-2024 13:00-0500 Diastolic blood pressure 70 mm[Hg] Salazar Sarmini [facility] 01-15-2024 13:00-0500 Heart rate 72 /min Salazar Sarmini [facility] 01-15-2024 13:00-0500 Mean blood pressure 93 mm[Hg] Salazar Sarmini [facility] 01-15-2024 13:00-0500 SaO2% (BldA) [Mass fraction] 97 % Salazar Sarmini [facility] 01-15-2024 13:00-0500 Systolic blood pressure 140 mm[Hg] Salazar Sarmini [facility] 01-15-2024 12:50-0500 Body temperature 98.24 [degF] Salazar Sarmini [facility] 01-15-2024 12:44-0500 Respiratory rate 18 /min Salazar Sarmini [facility] 01-15-2024 12:40-0500 Respiratory rate 19 /min Salazar Sarmini [facility] 01-15-2024 12:35-0500 Respiratory rate 19 /min Salazar Sarmini [facility] 01-15-2024 10:59-0500 Blood Pressure Location Salazar Sarmini [facility] 01-15-2024 10:59-0500 Body temperature 98.24 [degF] Salazar Sarmini [facility] 12-04-2023 08:58-0400 Blood Pressure Location Salazar Sar[facility] 12-04-2023 08:58-0400 Diastolic blood pressure 84 mm[Hg] Salazar Sar[facility] 12-04-2023 08:58-0400 Heart rate 84 /min Salazar Sar[facility] 12-04-2023 08:58-0400 Respiratory rate 16 /min Salazar Sar[facility] 12-04-2023 08:58-0400 Systolic blood pressure 156 mm[Hg] Salazar Sar[facility] 12-04-2023 08:49-0400 Blood Pressure Location Salazar Sarmini [facility] 12-04-2023 08:49-0400 Respiratory rate 16 /min Salazar Sar[facility] 09-04-2022 09:00-0400 Body height 140.97 cm Laurita Morales Other [employer] Other 09-04-2022 09:00-0400 Body mass index (BMI) [Ratio] 36.74 kg/m2 Laurita Morales Other [employer] Other 09-04-2022 09:00-0400 Body weight 73.03 kg Laurita Morales Other [employer] Other 09-04-2022 09:00-0400 Diastolic blood pressure 78 mm[Hg] Laurita Morales Other [employer] Other 09-04-2022 09:00-0400 SaO2% (BldA) [Mass fraction] 97 % Laurita Morales Other [employer] Other 09-04-2022 09:00-0400 Systolic blood pressure 132 mm[Hg] Laurita Morales Other [employer] Other 03-01-2022 10:30-0500 Body height 140.97 cm Laurita Morales Other [employer] Other 03-01-2022 10:30-0500 Body mass index (BMI) [Ratio] 36.06 kg/m2 Laurita Morales Other [employer] Other 03-01-2022 10:30-0500 Body weight 71.67 kg Laurita Morales Other [employer] Other 03-01-2022 10:30-0500 Diastolic blood pressure 84 mm[Hg] Laurita Morales Other [employer] Other 03-01-2022 10:30-0500 SaO2% (BldA) [Mass fraction] 98 % Laurita Morales Other [employer] Other 03-01-2022 10:30-0500 Systolic blood pressure 132 mm[Hg] Laurita Morales Other [employer] Other 11-08-2021 10:17-0400 Diastolic blood pressure 74 mm[Hg] Farooq SALAM [facility] 11-08-2021 10:17-0400 Mean blood pressure 99 mm[Hg] Farooq SALAM [facility] 11-08-2021 10:17-0400 Systolic blood pressure 148 mm[Hg] Farooq SALAM [facility] 11-08-2021 10:15-0400 Blood Pressure Location Farooq SALAM [facility] 11-08-2021 10:15-0400 Diastolic blood pressure 95 mm[Hg] Farooq SALAM [facility] 11-08-2021 10:15-0400 Heart rate 78 /min Farooq SALAM [facility] 11-08-2021 10:15-0400 Respiratory rate 16 /min Farooq SALAM [facility] 11-08-2021 10:15-0400 Systolic blood pressure 159 mm[Hg] Farooq SALAM [facility] 05-10-2021 11:11-0400 Diastolic blood pressure 90 mm[Hg] Farooq SALAM [facility] 05-10-2021 11:11-0400 Systolic blood pressure 180 mm[Hg] Farooq SALAM [facility] Encounters Encounter Date Encounter Type Care Provider Facility Start: 03-20-2024 End: 03-20-2024 ambulatory Martin Tatum Facility:[facility] Start: 03-20-2024 End: 03-20-2024 Patient encounter procedure Salazar Talal Sarmini [facility] Start: 03-18-2024 End: 03-18-2024 Office outpatient visit 15 minutes Jr. Larissa Guerrero DO Work Phone: [facility] Comment on above: Left knee pain, unsp ecified chronicity (Primary Dx); Internal derangement of left knee; Arthritis of left knee Start: 03-18-2024 End: 03-18-2024 ambulatory JR., LARISSA GUERRERO Not Available Start: 03-02-2024 End: 03-02-2024 Telephone encounter Adali Giordano TRAVEL ADMINISTRATOR Work Phone: [facility] Comment on above: MRI Start: 02-17-2024 End: 02-17-2024 Bamboo flowsheet Adali Malcolming TRAVEL ADMINISTRATOR Work Phone: [facility] Start: 02-17-2024 End: 02-17-2024 Bamboo flowsheet Adali Pompa Apling TRAVEL ADMINISTRATOR Work Phone: [facility] Start: 02-17-2024 End: 02-17-2024 Office outpatient visit 15 minutes Adali Malcolming TRAVEL ADMINISTRATOR Work Phone: [facility] Comment on above: S/P left knee arthro scopy (Primary Dx); Left knee pain, unspecified chronicity; Arthritis of left knee; Internal derangement of left knee Start: 02-17-2024 End: 02-17-2024 ambulatory ADALI Pompa APLING Not Available Start: 01-30-2024 End: 01-30-2024 ambulatory Salazar Talal Sarmini Facility:[facility] Start: 01-30-2024 End: 01-30-2024 Patient encounter procedure Salazar Talal Sarmini [facility] Start: 01-20-2024 End: 01-20-2024 Bamboo flowsheet Adali Pompa Apling TRAVEL ADMINISTRATOR Work Phone: [facility] Start: 01-20-2024 End: 01-20-2024 Bamboo flowsheet Adali Pompa Goldmoise TRAVEL ADMINISTRATOR Work Phone: [facility] Start: 01-20-2024 End: 01-20-2024 Office outpatient visit 25 minutes Adali Pompa Pasquale TRAVEL ADMINISTRATOR Work Phone: [facility] Comment on above: S/P left knee arthro scopy (Primary Dx); Left knee pain, unspecified chronicity; Arthritis of left knee Start: 01-20-2024 End: 01-20-2024 ambulatory ADALI Pompa PASQUALE Not Available Start: 01-15-2024 End: 01-15-2024 Patient encounter procedure Salazar Talal Sarmini [facility] Start: 12-31-2023 End: 12-31-2023 Bamboo flowsheet Abhi Ramires TRAVEL ADMINISTRATOR Work Phone: [facility] Start: 12-31-2023 End: 12-31-2023 Bamboo flowsheet Abhi Ramires TRAVEL ADMINISTRATOR Work Phone: [facility] Start: 12-31-2023 End: 12-31-2023 Postop follow up visit related to original px Abhi Ramires TRAVEL ADMINISTRATOR Work Phone: [facility] Comment on above: S/P left knee arthro scopy (Primary Dx); Left knee pain, unspecified chronicity Start: 12-31-2023 End: 12-31-2023 ambulatory ABHI RAMIRES Not Available Start: 12-06-2023 End: 12-06-2023 ambulatory Salazar Talal Sarmini Facility:[facility] Start: 12-06-2023 End: 12-06-2023 Lab Drop off Salazar Talal Sarmini [facility] Start: 12-04-2023 End: 12-04-2023 ambulatory Salazar Talal Levymini Facility:[facility] Start: 12-04-2023 End: 12-04-2023 Patient encounter procedure Salazar Talal Levymini [facility] Start: 12-04-2023 ambulatory Salazar Talal Levymini Facility:[facility] Start: 12-04-2023 End: 12-04-2023 Patient encounter procedure Salazar Talal Levymini [facility] Start: 11-26-2023 ambulatory Salazar Levymini Facili ty:[facility] Start: 11-13-2023 End: 11-13-2023 Bamboo [employer] Adali Pompa Apling TRAVEL ADMINISTRATOR Work Phone: [facility] Start: 11-13-2023 End: 11-13-2023 Bamboo flowsheet Adali B Apling TRAVEL ADMINISTRATOR Work Phone: [facility] Start: 11-13-2023 End: 11-13-2023 Postop follow up visit related to original px Adali B Apling TRAVEL ADMINISTRATOR Work Phone: [facility] Comment on above: Arthritis of left kn ee (Primary Dx); S/P left knee arthroscopy Start: 11-13-2023 End: 11-13-2023 ambulatory ADALI Pompa APLING Not Available Start: 10-16-2023 End: 10-16-2023 Bamboo flowsheet Adali B Apling TRAVEL ADMINISTRATOR Work Phone: [facility] Start: 10-16-2023 End: 10-16-2023 Bamboo flowsheet Adali B Apling TRAVEL ADMINISTRATOR Work Phone: [facility] Start: 10-16-2023 End: 10-16-2023 Postop follow up visit related to original px Adali B Apling TRAVEL ADMINISTRATOR Work Phone: [facility] Comment on above: Arthritis of left kn ee (Primary Dx); S/P left knee arthroscopy Start: 10-16-2023 End: 10-16-2023 ambulatory ADALI Pompa APLING Not Available Start: 10-08-2023 End: 10-08-2023 Refill Abhi Ramires TRAVEL ADMINISTRATOR Work Phone: [facility] Comment on above: Post-op pain (Primar y Dx) Start: 09-10-2023 End: 09-10-2023 ambulatory DANIELLE Fish JOHN Not Available Start: 08-26-2023 End: 08-26-2023 ambulatory ADALI Pompa APLING Not Available Start: 03-07-2023 End: 03-07-2023 ambulatory Laurita Morales Other [employer] Other Start: 03-07-2023 Office outpatient vi sit 15 minutes Laurita Morales [facility] Start: 09-20-2022 End: 09-20-2022 ambulatory Laurita Morales [facility] [employer] Other Start: 09-20-2022 Telephone encounter Laurita Morales [facility] Start: 09-04-2022 End: 09-04-2022 ambulatory Laurita Morales [facility] [employer] [employer] Other Start: 09-04-2022 Patient encounter procedure Laurita Morales [facility] Start: 04-19-[address] LAURITA MORALES Facil ity:H1 Start: 03-01-2022 End: 03-01-2022 ambulatory Laurita Morales [facility] [employer] [employer] Other Start: 03-01-2022 Office outpatient vi sit 15 minutes Laurita Morales [facility] Start: 01-18-2022 End: 01-19-[address] LAURITA MORALES Facility:[facility]1 Start: 11-21-2021 End: 11-22-2021 ambulatory CAPRI FULLER Facility:[facility]1 Start: 11-08-2021 End: 11-08-2021 Patient encounter procedure Capri FULLER [facility] Start: 10-19-2021 End: 10-20-[address] LAURITA MORALES Facility:[facility]1 Start: 09-27-2021 End: 09-28-[address] LAURITA MORALES Facility:[facility] Start: 09-26-2021 End: 09-26-[address] LAURITA MORALES Facility:[facility] Start: 09-25-2021 Encounter for preprocedural laboratory examination DR RADHA IRAHETA [facility] Start: 09-22-2021 End: 09-23-[address] LAURITA MORALES Facility:[facility]1 Start: 09-22-2021 End: 09-23-2021 Encounter for preprocedural laboratory examination DR LAURITA MORALES Facility:[facility] Start: 09-11-[address] LAURITA MORALES Facil ity:[facility]1 Start: 09-06-2021 End: 09-07-2021 ambulatory ROBERTO MCNALLY Facility:[facility]1 Start: 08-30-2021 Adult health examination Malia Morales [facility] [employer] Other Start: 06-22-2021 End: 06-23-2021 ambulatory CAPRI FULLER Facility:[facility] Start: 05-31-2021 End: 05-31-2021 ambulatory Luis Gutierrez Facility:[facility] Start: 05-26-2021 End: 05-26-2021 ambulatory Laurita Morales Facility:[facility] Start: 05-26-2021 End: 05-26-2021 Patient encounter procedure MD Cy Sears Work Phone: [facility] Start: 05-22-2021 End: 05-23-[address] LAURITA MORALES Facility:[facility]1 Start: 05-10-2021 End: 05-10-2021 Patient encounter procedure Capri FULLER [facility] Start: 05-04-2021 End: 05-04-2021 ambulatory Cy Sears Facility:[facility] Start: 05-04-2021 End: 05-04-2021 Patient encounter procedure MD Cy Sears Work Phone: [facility] [place] Start: 04-20-2021 End: 04-21-2021 ambulatory CAPRI FULLER Facility:[facility] Start: 04-01-2021 End: 04-02-[address] LAURITA MORALES Facility:[facility] Start: 03-23-2021 End: 03-24-[address] LAURITA MORALES Facility:[facility] Start: 03-09-2021 End: 03-10-[address] LAURITA MORALES Facility:[facility] Procedures Date Procedure Procedure Detail Performing Clinician Start: 01-15-2024 Colonoscopy Adali Giordano TRAVEL ADMINISTRATOR Work Phone: Start: 01-15-2024 Colonoscopy Salazar Coltoni Start: 01-15-2024 Esophagogastroduodenoscopy Martin Huff ini Start: 09-12-2023 Tear of meniscus of knee (disorder) Martin Lockettmini Start: 09-04-2023 History of thyroidectomy Status post total thyroidectomy Abhi Ramires TRAVEL ADMINISTRATOR Work Phone: Start: 05-31-2021 Antibody screen Luis Gutierrez Comment on above: Order Comment: Transfuse now? N Result Comment: PERF ORMED BY: [address] [place] [address] PATHOLOGIST PESTICIDE USE MEDICAL COORDINATOR TRICIA OSHEA M.D. Start: 02-16-2020 Colonoscopy Abhi Ramires TRAVEL ADMINISTRATOR Work Phone: Start: 02-16-2020 Colonoscopy w/biopsy single/multiple Farooq SALAM Colonoscopy Farooq SALAM History of appendectomy Muha mmad Sarmini History of thyroidectomy Muh ammad Sarmini Screening for malign ant neoplasm of breast Laurita Morales Other Plan of Treatment Date Care Activity Detail Author Start: 01-14-2034 Screening for malignant neoplasm of colon [facility] Start: 02-15-2030 Screening for malignant neoplasm of colon [facility] Start: 05-13-2024 End: 05-13-2024 Patient encounter procedure 05/13/2024 10:30 AM EDT Office Visit [facility] [address] [place] [address] Jr. Larissa Guerrero DO [address] [place] [address] [facility] Start: 02-17-2024 End: 02-16-2025 MR Knee - left WO contrast MR knee left wo IV contrast Imaging Routine Internal derangement of left knee Expected: 02/17/2024 (Approximate), Expires: 02/16/2025 [facility] Work Phone: Comment on above: Expected: 02/17/2024 (Approximate), Expires: 02/16/2025 Start: 02-17-2024 End: 02-17-2024 Patient encounter procedure 02/17/2024 9:45 AM EST Office Visit [facility] [address] [place] [id number] Adali Giordano NP [address] [place] [address] S/P left knee arthroscopy (Primary Dx); Left knee pain, unspecified chronicity; Arthritis of left knee [facility] Comment on above: S/P left knee arthro scopy (Primary Dx); Left knee pain, unspecified chronicity; Arthritis of left knee Start: 01-20-2024 End: 01-20-2024 Patient encounter procedure [facility] Comment on above: S/P left knee arthro scopy (Primary Dx); Left knee pain, unspecified chronicity; Arthritis of left knee Start: 12-31-2023 End: 12-31-2023 Patient encounter procedure 12/31/2023 10:45 AM EST Office Visit [facility] [address] [place] [address] Abhi Ramires NP [address] [place] [address] Arrived [facility] Comment on above: Arrived Start: 11-13-2023 End: 11-13-2023 Patient encounter procedure [facility] Comment on above: Arthritis of left kn ee (Primary Dx); S/P left knee arthroscopy Start: 10-16-2023 End: 10-16-2023 Patient encounter procedure [facility] Comment on above: Arrived Start: 10-13-2023 Influenza vaccination Influenza Vacc ine (#1) [facility] Start: 10-09-2023 End: 10-09-2023 Patient encounter procedure 10/09/2023 11:30 AM EDT Procedure Visit [facility] Danielle Curran, [address] [facility] [address] [place] [address] [facility] Start: 1950 Screening for malignant neoplasm of colon [facility] Immunizations Immunization Date Immunization Notes Care Provider Fa cility 11-13-2023 influenza virus vaccine, unspecified formulation Martin Tatum [facility] 12-03-2022 ABRYSVO - Respirator y syncytial virus (RSV), vaccine, bivalent, protein subunit RSV prefusion F, diluent reconstituted, 0.5 mL, PF Abhi Ramires TRAVEL ADMINISTRATOR Work Phone: [facility] 12-03-2022 SARS-COV-2 (COVID-19 ) vaccine, mRNA, spike protein, LNP, PF, 50 mcg/0.5 mL Abhi Ramires NP Work Phone: [facility] 11-07-2022 Influenza, Seasonal, Quadrivalent, Adjuvanted Abhi Ramires TRAVEL ADMINISTRATOR Work Phone: [facility] 11-07-2022 influenza virus vaccine, unspecified formulation Abhi Ramires TRAVEL ADMINISTRATOR Work Phone: [facility] 10-01-2022 zoster vaccine recombinant Abhi Ramires NP Work Phone: [facility] 07-18-2022 zoster vaccine recombinant Abhi Ramires TRAVEL ADMINISTRATOR Work Phone: [facility] 11-21-2021 influenza virus vaccine, unspecified formulation Martin Tatum [facility] 11-21-2021 Seasonal trivalent influenza vaccine, adjuvanted, preservative free Abhi Ramires TRAVEL ADMINISTRATOR Work Phone: [facility] 10-27-2021 SARS-CoV-2 (COVID-19 ) [id number] Martin Tatum [facility] Comment on above: Result Comment: 2023: [id number] 12-09-2020 COVID-19 mRNA-1273 (Moderna) MD Cy Sears Work Phone: [facility] Comment on above: Result Comment: 2023: [id number] 11-15-2020 influenza virus vaccine, split virus (incl. purified surface antigen) Laurita Morales Other [employer] Other 11-15-2020 influenza virus vaccine, unspecified formulation Abhi Ramires TRAVEL ADMINISTRATOR Work Phone: [facility] 11-11-2020 influenza virus vaccine, unspecified formulation Capri FULLER [facility] 04-26-2020 COVID-19 mRNA-1273 (Modernmari) MD Cy Sears Work Phone: [facility] 03-31-2020 SARS-CoV-2 (COVID-19 ) mRNA-1273 vaccine Martin Tatum [facility] 03-23-2020 COVID-19 mRNA-1273 (Moderna) MD Cy Sears Work Phone: [facility] 11-20-2019 influenza virus vaccine, split virus (incl. purified surface antigen) Laurita Morales Other [employer] [facility] [employer] Other 11-20-2019 influenza virus vaccine, unspecified formulation Abhi Katie TRAVEL ADMINISTRATOR Work Phone: [facility] 07-09-2018 zoster vaccine, live Abhi Nina daly TRAVEL ADMINISTRATOR Work Phone: [facility] 11-20-2017 pneumococcal polysaccharide vaccine, 23 valent Abhi Ramires TRAVEL ADMINISTRATOR Work Phone: [facility] 11-14-2017 influenza virus vaccine, unspecified formulation Salazar Sarmini [facility] 11-14-2017 pneumococcal polysaccharide vaccine, 23 valent Abhi Ramires TRAVEL ADMINISTRATOR Work Phone: [facility] 11-14-2017 Seasonal trivalent influenza vaccine, adjuvanted, preservative free Abhi Katie TRAVEL ADMINISTRATOR Work Phone: [facility] 10-24-2016 influenza virus vaccine, split virus (incl. purified surface antigen) Laurita Morales Other [employer] [facility] [employer] Other 10-24-2016 influenza virus vaccine, unspecified formulation Salazar Sarmini [facility] 10-24-2016 influenza, high dose seasonal, preservative-free Abhi Ramires TRAVEL ADMINISTRATOR Work Phone: [facility] 10-24-2016 pneumococcal conjuga te vaccine, 13 valent Laurita Morales Other [employer] [facility] [employer] Other 11-08-2015 influenza virus vaccine, unspecified formulation Salazar Sarmini [facility] 11-08-2015 Seasonal trivalent influenza vaccine, adjuvanted, preservative free Abhi Ramires TRAVEL ADMINISTRATOR Work Phone: [facility] 11-16-2014 influenza virus vaccine, unspecified formulation Salazar Sarmini [facility] 11-16-2014 influenza, seasonal, injectable, preservative free Abhi Ramires NP Work Phone: [facility] 08-31-2014 tetanus and diphther ia toxoids, adsorbed, preservative free, for adult use (5 Lf of tetanus toxoid and 2 Lf of diphtheria toxoid) Abhi Ramires TRAVEL ADMINISTRATOR Work Phone: [facility] 08-31-2014 tetanus toxoid, reduced diphtheria toxoid, and acellular pertussis vaccine, adsorbed Laurita Morales Other [facility] [employer] Other 11-30-2013 pneumococcal polysaccharide vaccine, 23 valent Laurita Morales Other [facility] [employer] Other 03-24-2013 zoster vaccine, live Abhi daly TRAVEL ADMINISTRATOR Work Phone: [facility] 11-11-2012 influenza virus vaccine, unspecified formulation Martin Tatum [facility] 11-11-2012 influenza, seasonal, injectable Abhi Ramires NP Work Phone: [facility] 01-29-2003 hepatitis B vaccine, adult dosage Abhi Ramires NP Work Phone: [facility] 08-10-2002 hepatitis B vaccine, adult dosage Abhi Ramires NP Work Phone: [facility] 07-08-2002 hepatitis B vaccine, adult dosage Abhi Ramires NP Work Phone: [facility] 07-08-2002 TD(adult) unspecifie d formulation; Translations: [Td(adult) unspecified formulation] Abhi Ramires TRAVEL ADMINISTRATOR Work Phone: [facility] NEGATED: Highlighted row has not occurred!11-08-2021 influenza virus vaccine, unspecified formulation Capri FULLER [facility] Payers Date Payer Category Payer Self-pay [id number] 2021 Private Health Insurance [id number] 2021 Private Health Insurance CLI [id number] 2013 Medicare [id number] 1959 Medicare [id number] 1959 Unknown [id number] 1948 Unknown [id number] 2.16.84 0.1.542329.3.579.2.593 1948 Unknown [id number] 2.16.84 0.1.033569.3.579.2.593 1948 Unknown [id number] 2.16.84 0.1.760546.3.579.2.593 1948 Unknown [id number] 2.16.84 0.1.291087.3.579.2.593 1948 Unknown [id number] 2.16.84 0.1.386155.3.579.2.593 1948 Unknown [id number] 2.16.84 0.1.393520.3.579.2.593 1948 Unknown [id number] 2.16.84 0.1.954361.3.579.2.593 1948 Unknown [id number] 2.16.84 0.1.597582.3.579.2.593 1948 Unknown [id number] 2.16.84 0.1.977850.3.579.2.593 1948 Unknown [id number] 2.16.84 0.1.890457.3.579.2.593 1948 Unknown [id number] 2.16.84 0.1.394010.3.579.2.593 1948 Unknown [id number] 2.16.84 0.1.191846.3.579.2.593 1948 Unknown [id number] 2.16.84 0.1.950929.3.579.2.593 1948 Unknown [id number] 2.16.84 0.1.169288.3.579.2.593 1948 Unknown [id number] 2.16.84 0.1.485439.3.579.2.593 1948 Unknown [id number] 2.16.84 0.1.844569.3.579.2.593 1948 Unknown [id number] 2.16.84 0.1.034191.3.579.2.593 1948 Unknown [id number] 2.16.8 40.1.550608.3.579.2.727 1948 Unknown [id number] 2.16.8 40.1.644924.3.579.2.727 1948 Unknown [id number] 2.16.8 40.1.738087.3.579.2.727 1948 Unknown [id number] 2.16.84 0.1.660737.3.579.2.1259 1948 Unknown [id number] 2.16.84 0.1.716445.3.579.2.1259 1948 Unknown [id number] 2.16.84 0.1.149448.3.579.2.1259 1948 Unknown [id number] 2.16.84 0.1.601854.3.579.2.1259 1948 Unknown [id number] 2.16.84 0.1.404115.3.579.2.1259 1948 Unknown [id number] 2.16.84 0.1.122193.3.579.2.1259 1948 Unknown [id number] 2.16.84 0.1.800953.3.579.2.1259 1948 Unknown [id number] 2.16.84 0.1.905245.3.579.2.1259 1948 Unknown [id number] 2.16.84 0.1.205943.3.579.2.1259 1948 Unknown [id number] 2.16.8 40.1.313074.3.579.2.727 Medicare Self Pay [id number] Unknown [id number] 2.16.8 40.1.577907.3.579.2.531 Unknown [id number] 2.16.8 40.1.383689.3.579.2.531 Unknown [id number] 2.16.8 40.1.421789.3.579.2.531 Social History Date Type Detail Facility Tobacco smoking stat [facility] Unknown if ever smoked [facility] Work Phone: Start: 1950 Sex Assigned At Female F [facility] Start: 05-10-2021 End: 03-20-2024 Tobacco smoking status Heavy tobacco smoker (finding) [facility] Start: 09-10-2023 End: 03-18-2024 Sex Assigned At Female [facility] Start: 05-26-2021 Tobacco smoking stat us OHIS Smoker (finding) [facility] Start: 08-26-2023 Tobacco smoking stat [facility] Smokes tobacco daily [facility] History of tobacco use Cigarette Smoker [facility] Start: 08-26-2023 Tobacco use and exposure Smokeless tobacco non-user [facility] Start: 09-10-2023 End: 03-18-2024 Alcoholic beverage intake Current drinker of alcohol (finding) [facility] Start: 09-10-2023 End: 03-18-2024 History of Social function [facility] Start: 1950 Sex assigned at Not on file N [facility] Tobacco smoking status Never [facility] Functional Status Date Assessment Result Facility 03-20-2024 Functional Status N/A [facility] 01-30-2024 Functional Status N/A [facility] 01-15-2024 Functional Status N/A [facility] 12-04-2023 Functional Status N/A [facility] 11-08-2021 Functional Status N/A [facility] Clinical Notes 01-24-2021 to 03-18-2024 Jr. Larissa Guerrero, DO - 03/18/2024 10:45 AM ESTTelephone Encounter - Tyra Feliz - 03/02/2024 10:12 AM ESTTelephone Encounter - Tyramari Priceer - 03/02/2024 10:12 AM ESTLaboratory Note Date & Type Note Facility 03-18-2024 History of Presen t illness Narrative Images from the original note were not included. HISTORY OF PRESENT ILLNESS: EST PT Alexandra Cervantes is an 74 y.o. @ female. (EST PT) (LAST APPT WITH [facility]) - RECHECK (L) KNEE S/P MRI [facility] (02/25/24) ; S/P (L) KNEE SCOPE (DR. CURRAN) (10/09/23) (5 MONTHS, 1 WK, 1 DAY) XRAY B/L KNEE 08/26/23 IN EPIC XRAY (L) KNEE (02/09/23) IN CHANGE MRI @[facility] 02/25/24 MDP 12/31/23 (50% IMPROVEMENT) CORTISONE INJ (01/20/24) (70-80% IMPROVEMENT) NO PT PAIN MANAGEMENT @ [facility] (BACK) STATES INJECTION 01/20/24 ONLY LASTED 2-3 WKS. WILL HAVE PAIN ANTERIOR AND POSTERIOR KNEE. STATES KNEE ISN'T TOO BAD NOW. DENIES RADIATION. +ALEVE DAILY (FOR FOOT). DENIES N/T, SWELLING. DENIES POPPING/GRINDING. RARELY HAS GIVING OUT SENSATION. DOES NOT WAKE AT HS. DENIES ISSUES WALKING. RONDA: 12/22/23, WENT ON VACATION AND WALKED A LOT. HX (L) KNEE SCOPE 10/09/23 (DR. CURRAN) ALLERGIES: Allergies Allergen Reactions Varenicline Other Reaction(s): Unknown HOME MEDICATIONS: Current Outpatient Medications Medication Instructions ALPRAZolam (XANAX) 0.5 mg, Nightly PRN baclofen (LIORESAL) 10 mg, 3 times daily busPIRone (BUSPAR) 15 mg, 2 times daily escitalopram (LEXAPRO) 20 mg, Daily escitalopram (LEXAPRO) 10 mg, Daily ibuprofen (Advil) 200 MG tablet Every 8 hours levothyroxine (Synthroid, Levoxyl) 75 MCG tablet Every 24 hours mesalamine (Lialda) 1.2 g EC tablet TAKE FOUR TABLETS BY MOUTH DAILY methylPREDNISolone (Medrol Dospak) 4 MG tablets Follow schedule on package instructions omeprazole (PriLOSEC) [address] capsule Every 24 hours omeprazole (PriLOSEC) [address] capsule predniSONE (Deltasone) 5 MG tablet START WITH 40MG (8 TABS) BY MOUTH FOR 7 DAYS, THEN DECREASE BY 5MG (1 TAB) EVERY 7 DAYS UNTIL FINISHED simvastatin (ZOCOR) 40 mg, Nightly sulfaSALAzine (AZULFIDINE) 500 mg, Every 24 hours zonisamide (Zonegran) 50 MG capsule TAKE TWO CAPSULES BY MOUTH DAILY AT BEDTIME PHYSICAL EXAM: Knee Musculoskeletal Exam Inspection Left Erythema: none Effusion: none Edema: mild Ecchymosis: none Palpation Left Crepitus: patellofemoral Tenderness: present Medial joint line: moderate Range of Motion Left Active extension: 0 Active flexion: 115 Instability Left Medial Celestine test: negative Vitals: There is no height or weight on file to calculate BMI. Tobacco Use: High Risk (03/18/2024) Patient History Smoking Tobacco Use: Every Day Smokeless Tobacco Use: Never Passive Exposure: Not on file Alcohol Use: Not on file IMAGING: Procedures No orders of the defined types were placed in this encounter. ASSESSMENT: ICD-10-CM 1. Left knee pain, unspecified chronicity M25.562 2. Internal derangement of left knee M23.92 3. Arthritis of left knee M17.12 PLAN: We have discussed her case with her at length. She may have a new medial meniscus tear, but feels she is functioning too well at this point considering any Surgical intervention. We have discussed her home exercise program and restrictions. We have discussed her MRI results. We'll see her back in 8 weeks. If her symptoms persist or worsen, we may recommend physical therapy and/or arthroscopy of left knee. Questions answered in laymen terms at the bedside. The diagnosis, home exercise plan and any ongoing restrictions/ recommendations reviewed. If unable to be reached in office, I recommend evaluation at nearest Emergency Room if any symptoms worsened or new symptoms develop for requiring urgent evaluation. documented in this encounter [facility] 03-02-2024 Miscellaneous Notes Patient called and left requesting a call for here MRI results. documented in this encounter [facility] 03-02-2024 Telephone encounter Note Patient called and left requesting a call for here MRI results. [facility] 02-17-2024 History of Presen t illness Narrative HISTORY OF PRESENT ILLNESS: Alexandra Cervantes is an 74 y.o. @ female. LT knee 12/31/23 by Abhi and given a MDP (12/31/23) with 50% improvement 4 weeks s/p Depo medrol injection (01/20/24) with 70-80% improvement. Started bothering her again last week. 17 weeks and 5 days s/p LT knee medial compartment arthritis, medial meniscectomy, chalky deposits (gout/pseudogout) (DOS 10/09/23). States she was doing well until (week of 2023). Went on vacation, unsure if from dragging her luggage around. Sometimes it aches and sometimes it doesn't. Will be anterior or posterior. Not constant. Denies radiation. Taking aleve prn. Denies topicals. Denies N/T, swelling. Denies popping/grinding. Denies giving out. Does not wake at HS. Pain posterior today. Pain is 4-5/10 today, states it is not too bad. Pain is bearable. ALLERGIES: Allergies Allergen Reactions Varenicline Other Reaction(s): Unknown HOME MEDICATIONS: Current Outpatient Medications Medication Instructions ALPRAZolam (XANAX) 0.5 mg, Nightly PRN baclofen (LIORESAL) 10 mg, 3 times daily escitalopram (LEXAPRO) 20 mg, Daily escitalopram (LEXAPRO) 10 mg, Daily ibuprofen (Advil) 200 MG tablet Every 8 hours levothyroxine (Synthroid, Levoxyl) 75 MCG tablet Every 24 hours mesalamine (Lialda) 1.2 g EC tablet TAKE FOUR TABLETS BY MOUTH DAILY methylPREDNISolone (Medrol Dospak) 4 MG tablets Follow schedule on package instructions omeprazole (PriLOSEC) [address] capsule Every 24 hours omeprazole (PriLOSEC) [address] capsule predniSONE (Deltasone) 5 MG tablet START WITH 40MG (8 TABS) BY MOUTH FOR 7 DAYS, THEN DECREASE BY 5MG (1 TAB) EVERY 7 DAYS UNTIL FINISHED simvastatin (ZOCOR) 40 mg, Nightly sulfaSALAzine (AZULFIDINE) 500 mg, Every 24 hours zonisamide (Zonegran) 50 MG capsule TAKE TWO CAPSULES BY MOUTH DAILY AT BEDTIME PHYSICAL EXAM: Knee Musculoskeletal Exam Inspection Left Erythema: none Effusion: none Edema: mild Ecchymosis: none Palpation Left Crepitus: patellofemoral Tenderness: present Medial joint line: moderate Range of Motion Left Active extension: 0 Active flexion: 115 Instability Left Medial Celestine test: positive Vitals: There is no height or weight on file to calculate BMI. ASSESSMENT: ICD-10-CM 1. S/P left knee arthroscopy Z98.890 2. Left knee pain, unspecified chronicity M25.562 3. Arthritis of left knee M17.12 4. Internal derangement of left knee M23.92 MR knee left wo IV contrast discussion of due to failure of conservative treatment would recommend an MRI of the left knee without contrast, activities as tolerated, f/u s/p MRI to be done at [facility] documented in this encounter [facility] 01-30-2024 Evaluation + Plan note Future Scheduled TestsCalprotectin, Fecal 01/30/24Calprotectin, Fecal 03/17/24Clostridium Difficile PCR 03/17/24Quantiferon-TB Plus (Client Incubated) 03/17/24Enteric Panel by PCR 03/17/24CBC w/ Auto Diff 03/20/24CBC w/ Auto Diff 03/17/24Comprehensive Metabolic Panel 03/20/24Comprehensive Metabolic Panel 03/17/24C-Reactive Protein 03/20/24C-Reactive Protein 03/17/24Hepatitis B Surface Antibody 03/17/24Hepatitis B Surface Antigen 03/17/24 [facility] 01-20-2024 History of Presen t illness Narrative HISTORY OF PRESENT ILLNESS: Alexandra Cervantes is an 73 y.o. @ female. Seen on 12/31/23 by Abhi and given a MDP (12/31/23) with 50% improvement 13 weeks and 5 days s/p LT knee medial compartment arthritis, medial meniscectomy, chalky deposits (gout/pseudogout) (DOS 10/09/23). States she was doing well until (week of 2023). Went on vacation, unsure if from dragging her luggage around. Pain mostly posterior. Taking TYL prn, does not help much. Using heat or ice prn. Denies N/T. Has not paid attention to swelling. Denies popping/grinding. Feels like knee could give out. Does not wake at HS. States she is taking prednisone for her bowels (started Saturday). ALLERGIES: Allergies Allergen Reactions Varenicline Other Reaction(s): Unknown HOME MEDICATIONS: Current Outpatient Medications Medication Instructions ALPRAZolam (XANAX) 0.5 mg, Oral, Nightly PRN baclofen (LIORESAL) 10 mg, Oral, 3 times daily escitalopram (LEXAPRO) 20 mg, Oral, Daily escitalopram (LEXAPRO) 10 mg, Oral, Daily ibuprofen (Advil) 200 MG tablet Every 8 hours levothyroxine (Synthroid, Levoxyl) 75 MCG tablet Every 24 hours methylPREDNISolone (Medrol Dospak) 4 MG tablets Follow schedule on package instructions omeprazole (PriLOSEC) [address] capsule Every 24 hours omeprazole (PriLOSEC) [address] capsule simvastatin (ZOCOR) 40 mg, Oral, Nightly sulfaSALAzine (AZULFIDINE) 500 mg, Oral, Every 24 hours zonisamide (Zonegran) 50 MG capsule TAKE TWO CAPSULES BY MOUTH DAILY AT BEDTIME PHYSICAL EXAM: Knee Musculoskeletal Exam Inspection Left Erythema: none Effusion: none Edema: none Ecchymosis: none Palpation Left Crepitus: patellofemoral Tenderness: present Medial joint line: moderate Range of Motion Left Active extension: 0 Active flexion: 110 Instability Left Medial Celestine test: positive Vitals: There is no height or weight on file to calculate BMI. ASSESSMENT: ICD-10-CM 1. S/P left knee arthroscopy Z98.890 2. Left knee pain, unspecified chronicity M25.562 3. Arthritis of left knee M17.12 Discussion of options, pt notes she would like an injection, side effects of bleeding and infection discussed, would like to proceed with the injection, using aspectic technique 40 mg of depo medrol was injected into the left lateral knee, pt tolerated well, bandaid applied, may do activities as tolerated, f/u in 3-4 weeks. We discussed if not much improvement would recommend an MRI and she understands this. documented in this encounter [facility] 01-15-2024 Hospital Discharg e instructions Patient Education 01/15/2024 13:05:31 Gastritis, Adult, Tens-wd-Zkxz Gastritis, Adult Gastritis is irritation and swelling (inflammation) of the stomach. There are two kinds of gastritis: Acute gastritis. This kind develops quickly. Chronic gastritis. This kind is much more common. It develops slowly and lasts for a long time. It is important to get help for this condition. If you do not get help, your stomach can bleed, and you can get sores (ulcers) in your stomach. What are the causes? This condition may be caused by: Germs that get to your stomach and cause an infection. Drinking too much alcohol. Medicines you are taking. Having too much acid in the stomach. Having a disease of the stomach. Other causes may include: An allergic reaction. Some cancer treatments (radiation). Smoking cigarettes or using products that contain nicotine or tobacco. In some cases, the cause of this condition is not known. What increases the risk? Having a disease of the intestines. Having Crohn's disease. Using aspirin or ibuprofen and other NSAIDs to treat other conditions. Stress. What are the signs or symptoms? Pain in your stomach. A burning feeling in your stomach. Feeling like you may vomit (nauseous). Vomiting or vomiting blood. Feeling too full after you eat. Weight loss. Bad breath. Blood in your poop (stool). In some cases, there are no symptoms. How is this treated? This condition is treated with medicines. The medicines that are used depend on what caused the condition. You may be given: Antibiotic medicine, if your condition was caused by an infection from germs. H2 blockers and similar medicines, if your condition was caused by too much acid in the stomach. Treatment may also include stopping the use of certain medicines, such as aspirin or ibuprofen. Follow these instructions at home: Medicines Take zonz-rze-ueuasno and prescription medicines only as told by your doctor. If you were prescribed an antibiotic medicine, take it as told by your doctor. Do not stop taking it even if you start to feel better. Alcohol use Do not drink alcohol if: ?Your doctor tells you not to drink. ?You are , may be , or are planning to become . If you drink alcohol: ?Limit your use to: ?0 1 drink a day for women. ?0 2 drinks a day for men. ?Know how much alcohol is in your drink. In the [place] one drink equals one 12 oz bottle of beer (355 mL), one 5 oz glass of wine (148 mL), or one 1 oz glass of hard liquor (44 mL). General instructions Eat small meals often, instead of large meals. Avoid foods and drinks that make you feel worse. Drink enough fluid to keep your pee (urine) pale yellow. Talk with your doctor about ways to manage stress. You can exercise or do deep breathing, meditation, or yoga. Do not smoke or use any products that contain nicotine or tobacco. If you need help quitting, ask your doctor. Keep all follow-up visits. Contact a doctor if: Your symptoms get worse. Your stomach pain gets worse. Your symptoms go away and then come back. You have a fever. Get help right away if: You vomit blood or something that looks like coffee grounds. You have black or dark red poop. You throw up any time you try to drink fluids. These symptoms may be an emergency. Get help right away. Call your local emergency services (911 in the [place] Do not wait to see if the symptoms will go away. Do not drive yourself to the hospital. Summary Gastritis is irritation and swelling (inflammation) of the stomach. You must get help for this condition. If you do not get help, your stomach can bleed, and you can get sores (ulcers) in your stomach. You can be treated with medicines for germs or medicines to block too much acid in your stomach. This information is not intended to replace advice given to you by your health care provider. Make sure you discuss any questions you have with your health care provider. Document Revised: 06/03/2021 Document Reviewed: 06/03/2021 [employer] Patient Education 2023 [employer]. 01/15/2024 13:05:27 Endoscopy, Care After Procedure [facility] ([facility]) Endoscopy Care After Procedure Please read the instructions outlined below and refer to this sheet in the next few weeks. These discharge instructions provide you with general information on caring for yourself after you leave the hospital. Your doctor may also give you specific instructions. While your treatment has been planned according to the most current medical practices available, unavoidable complications occasionally occur. If you have any problems or questions after discharge, please call your doctor. ACTIVITY You may resume your regular activity but move at a slower pace for the next 24 hours. Take frequent rest periods for the next 24 hours. Walking will help expel (get rid of) the air and reduce the bloated feeling in your abdomen. No driving for 24 hours (because of the anesthesia (medicine) used during the test). You may shower. Do not sign any important legal documents or operate any machinery for 24 hours (because of the anesthesia used during the test). NUTRITION Drink plenty of fluids. You may resume your normal diet. Begin with a light meal and progress to your normal diet. Avoid alcoholic beverages for 24 hours or as instructed by your caregiver. MEDICATIONS You may resume your normal medications unless your caregiver tells you otherwise. WHAT YOU CAN EXPECT TODAY You may experience abdominal discomfort such as a feeling of fullness or gas pains. FOLLOW-UP Your doctor will discuss the results of your test with you. SEEK IMMEDIATE MEDICAL ATTENTION IF ANY OF THE FOLLOWING OCCUR: Excessive nausea (feeling sick to your stomach) and/or vomiting. Severe abdominal pain and distention (swelling). Trouble swallowing. Temperature over 100 F (37.8 C). Rectal bleeding or vomiting of blood. Document Released: 09/11/2004 Document Re-Released: 07/22/2006 [facility] Patient Information 2010 [employer]. 01/15/2024 13:05:22 Hemorrhoids, Dvem-wc-Ywye Hemorrhoids Hemorrhoids are swollen veins that may form: In the butt (rectum). These are called internal hemorrhoids. Around the opening of the butt (anus). These are called external hemorrhoids. Most hemorrhoids do not cause very bad problems. They often get better with changes to your lifestyle and what you eat. What are the causes? Having trouble pooping (constipation) or watery poop (diarrhea). Pushing too hard when you poop. . Being very overweight (obese). Sitting for too long. Riding a bike for a long time. Heavy lifting or other things that take a lot of effort. Anal sex. What are the signs or symptoms? Pain. Itching or soreness in the butt. Bleeding from the butt. Leaking poop. Swelling. One or more lumps around the opening of your butt. How is this treated? In most cases, hemorrhoids can be treated at home. You may be told to: Change what you eat. Make changes to your lifestyle. If these treatments do not help, you may need to have a procedure done. Your doctor may need to: Place rubber bands at the bottom of the hemorrhoids to make them fall off. Put medicine into the hemorrhoids to shrink them. Shine a type of light on the hemorrhoids to cause them to fall off. Do surgery to get rid of the hemorrhoids. Follow these instructions at home: Medicines Take zumo-mer-zxgqaps and prescription medicines only as told by your doctor. Use creams with medicine in them or medicines that you put in your butt as told by your doctor. Eating and drinking Eat foods that have a lot of fiber in them. These include whole grains, beans, nuts, fruits, and vegetables. Ask your doctor about taking products that have fiber added to them (fibersupplements). Take in less fat. You can do this by: ?Eating low-fat dairy products. ?Eating less red meat. ?Staying away from processed foods. Drink enough fluid to keep your pee (urine) pale yellow. Managing pain and swelling Take a warm-water bath (sitz bath) for 20 minutes to ease pain. Do this 3 4 times a day. You may do this in a bathtub. You may also use a portable sitz bath that fits over the toilet. If told, put ice on the painful area. It may help to use ice between your warm baths. ?Put ice in a plastic bag. ?Place a towel between your skin and the bag. ?Leave the ice on for 20 minutes, 2 3 times a day. If your skin turns bright red, take off the ice right away to prevent skin damage. The risk of damage is higher if you cannot feel pain, heat, or cold. General instructions Exercise. Ask your doctor how much and what kind of exercise is best for you. Go to the bathroom when you need to poop. Do not wait. Try not to push too hard when you poop. Keep your butt dry and clean. Use wet toilet paper or moist towelettes after you poop. Do not sit on the toilet for a long time. Contact a doctor if: You have pain and swelling that do not get better with treatment. You have trouble pooping. You cannot poop. You have pain or swelling outside the area of the hemorrhoids. Get help right away if: You have bleeding from the butt that will not stop. This information is not intended to replace advice given to you by your health care provider. Make sure you discuss any questions you have with your health care provider. Document Revised: 10/10/2022 Document Reviewed: 10/10/2022 [employer] Patient Education 2023 [employer]. 01/15/2024 13:05:13 Ulcerative Colitis, Adult Ulcerative Colitis, Adult Ulcerative colitis is long-term (chronic) inflammation of the large intestine (colon) and rectum. Sores (ulcers) may also form in these areas. Ulcerative colitis, along with a closely related condition called Crohn's disease, is often referred to as inflammatory bowel disease. What are the causes? This condition may be caused by increased activity of the immune system in the intestines. The immune system is the system that protects the body against harmful bacteria, viruses, fungi, and other things that can make you sick. The cause of the increased activity of the immune system is not known. What increases the risk? The following factors may make you more likely to develop this condition: Being under 30 years old. Having a family history of ulcerative colitis. What are the signs or symptoms? Symptoms vary depending on how severe the condition is. Common symptoms include: Rectal bleeding. Diarrhea, often with blood or pus in the stool. Other symptoms can include: Pain or cramping in the abdomen. Fever. Tiredness (fatigue). Nausea, loss of appetite, or weight loss. Rectal pain. A strong and sudden need to have a bowel movement (bowel urgency). Anemia. Yellowing of the skin (jaundice) from liver dysfunction or skin rashes. Symptoms can range from mild to severe. They may come and go. How is this diagnosed? This condition may be diagnosed based on: Your symptoms and medical history. A physical exam. Tests, including: ?Blood tests and stool tests. ?X-rays. ?CT scan. ?MRI. ?Colonoscopy. For this test, a flexible tube is inserted into your anus, and your colon is examined. ?Biopsy. In this test, a tissue sample is taken from your colon and examined under a microscope. How is this treated? There is no cure for this condition, but it can be managed. Treatment depends on the severity of the disease. Treatment for this condition may include medicines to: Decrease swelling and inflammation. Control your immune system. Treat infections. Relieve pain. Control diarrhea. Severe flare-ups may need to be treated at a hospital. Treatment in a hospital may involve: Resting the bowel. This involves not eating or drinking for a period of time. Getting medicines through an IV. Getting fluids and nutrition through: ?An IV. ?A tube that is passed through the nose and into the stomach (nasogastric or NG tube). Surgery to remove the affected part of the colon. This may be done if other treatments are not helping. This condition increases the risk of colon cancer. Adults with this condition will need to be checked for colon cancer throughout life. Follow these instructions at home: Medicines and vitamins Take bmcu-wor-esupnuh and prescription medicines only as told by your health care provider. Do not take aspirin. If you were prescribed an antibiotic medicine, take it as told by your health care provider. Do not stop taking the antibiotic even if you start to feel better. Ask your health care provider if you should take any vitamins or supplements. You may need to take: ?Calcium and vitamin D for bone health. ?Iron to help treat anemia. Lifestyle Exercise regularly. Work with your health care provider to manage your condition and educate yourself about your condition. Do not use any products that contain nicotine or tobacco. These products include cigarettes, chewing tobacco, and vaping devices, such as e-cigarettes. If you need help quitting, ask your health care provider. If you drink alcohol: ?Limit how much you have to: ?0 1 drink a day for women who are not . ? 0 2 drinks a day for men. ?Know how much alcohol is in a drink. In the [place] one drink equals one 12 oz bottle of beer (355 mL), one 5 oz glass of wine (148 mL), or one 1 oz glass of hard liquor (44 mL). Eating and drinking Keep a food diary. This may help you identify and avoid any foods that trigger your symptoms. Drink enough fluid to keep your urine pale yellow. Follow a well-balanced diet as told by your health care provider. This may include: ?Avoiding carbonated drinks. ?Avoiding popcorn, vegetable skins, nuts, and other high-fiber foods. ?Avoiding high-fat foods. ?Eating smaller meals, but more often. ?Limiting sugary drinks. ?Limiting caffeine. Follow food safety recommendations as told by your health care provider. This may include making sure you: ?Avoid eating raw or undercooked meat, fish, or eggs. ?Do not eat or drink spoiled or foods and drinks. General instructions Wash your hands often with soap and water for at least 20 seconds. If soap and water are not available, use hand campaign analyst. Stay up to date on your vaccinations, including a yearly (annual) flu shot. Ask your health care provider which vaccines you should get. Have cancer screening tests as told by your health care provider. Ulcerative colitis may place you at increased risk for colon cancer. Keep all follow-up visits. This is important. Where to find more information You can find some helpful and educational information about ulcerative colitis at the National [place] of Diabetes and Digestive and Kidney Diseases online here: www.niddk.nih.gov Contact a health care provider if: Your symptoms do not improve or they get worse with treatment. You continue to lose weight. You have constant cramps or loose stools. You develop a new skin rash, skin sores, or eye problems. You have a fever or chills. Get help right away if: You have bloody diarrhea. You have severe bleeding from the rectum. You feel that your heart is racing. You have severe pain in your abdomen. Your abdomen swells (abdominal distension). Your abdomen is tender to the touch. You vomit. Summary Ulcerative colitis is long-lasting (chronic) inflammation of the large intestine (colon) and rectum. Sores (ulcers) may also form in these areas. Follow instructions from your health care provider about medicines, lifestyle changes, and eating and drinking. Contact your health care provider if symptoms do not improve or they get worse with treatment. Get help right away if you have severe abdominal pain, abdominal swelling, or severe bleeding from the rectum. Keep all follow-up visits. This is important. This information is not intended to replace advice given to you by your health care provider. Make sure you discuss any questions you have with your health care provider. Document Revised: 10/04/2020 Document Reviewed: 10/04/2020 [employer] Patient Education 2023 [employer]. 01/15/2024 13:05:09 Colonoscopy, Care After Surgery [facility] ([facility]) Colonoscopy Care After Surgery Please read the instructions outlined below and refer to this sheet in the next few weeks. These discharge instructions provide you with general information on caring for yourself after you leave the hospital. Your doctor may also give you specific instructions. While your treatment has been planned according to the most current medical practices available, unavoidable complications occasionally occur. If you have any problems or questions after discharge, please call your doctor. ACTIVITY You may resume your regular activity, but move at a slower pace for the next 24 hours. Take frequent rest periods for the next 24 hours. Walking will help get rid of the air and reduce the bloated feeling in your abdomen (belly). No driving for 24 hours (because of the anesthesia (medicine) used during the test). You may shower. Do not sign any important legal documents or operate any machinery for 24 hours (because of the anesthesia used during the test). NUTRITION Drink plenty of fluids. You may resume your normal diet as instructed by your doctor. Begin with a light meal and progress to your normal diet. Heavy or fried foods are harder to digest and may make you feel nauseated (sick to your stomach). Avoid alcoholic beverages for 24 hours or as instructed. MEDICATIONS You may resume your normal medications unless your doctor tells you otherwise. WHAT YOU CAN EXPECT TODAY Some feelings of bloating in the abdomen. Passage of more gas than usual. Spotting of blood in your stool or on the toilet paper. FOLLOW-UP Your doctor will discuss the results of your test with you. SEEK IMMEDIATE MEDICAL ATTENTION IF: There is more than a spotting of blood in your stool. There is abdominal distention (your abdomen is swollen). There is vomiting. You have a temperature over 101.5 F. There is abdominal pain or discomfort that is severe or gets worse throughout the day. [facility] 01-15-2024 Evaluation + Plan note Extrac javier from: Title:ANES Post-operative Note---General Author: Danielle Garcia MD. Date:01/15/24 Plan Transfer/Discharge: Transfer/Discharge Discharge when meets criteria ( To home ). Extracted from: Title:ANES Pre-operative Note 2022 Author:Danielle Ha Date:01/15/24 Plan [place] [employer] (ASA) physical status classification: Class II. Anesthetic Preoperative Plan: Anesthesia General. Extracted from: Title:1Preop H&P Author:Martin Tatum MD Date:01/15/24 Impression and Plan Impression: Ulcerative colitis, chronic diarrhea Plan: -EGD and Colonoscopy Future Appointments Appointment Date:01/30/2024 01:45:00 PM Scheduled Provider:Martin Tatum MD Location:[facility] Digestive Health Appointment Type:[facility] Follow Up Diagnostic Tests Pending * Enteric Panel by PCR 01/15/24 * Clostridium Difficile PCR 01/15/24 * Hep B Core Ab, Tot 01/15/24 * Hepatitis B Surface Antibody 01/15/24 * Hepatitis B Surface Antigen 01/15/24 * Quantiferon-TB Plus (Client Incubated) 01/15/24 [facility] [id number] History of Present illness Narrative* Abhi Ramires NP - 12/31/2023 10:45 AM EST Images from the original note were not included. Chief Complaint Patient presents with Left Knee - Pain HISTORY OF PRESENT ILLNESS: Alexandra Cervantes is an 73 y.o. @ female. 11 weeks 6 days s/p LT knee medial compartment arthritis, medial meniscectomy, chalky deposits (gout/pseudogout) (DOS 10/09/23). States she was doing well until last week. Went on vacation, unsure if from dragging her luggage around. Pain mostly posterior and lateral. Taking TYL and using voltaren. Tried ice and heat. Denies N/T, swelling. Denies popping/grinding. Denies giving out. Does not wake at HS. ALLERGIES: Allergies Allergen Reactions Varenicline Other Reaction(s): Unknown HOME MEDICATIONS: Current Outpatient Medications Medication Instructions ALPRAZolam (XANAX) 0.5 mg, Oral, Nightly PRN baclofen (LIORESAL) 10 mg, Oral, 3 times daily escitalopram (LEXAPRO) 20 mg, Oral, Daily escitalopram (LEXAPRO) 10 mg, Oral, Daily ibuprofen (Advil) 200 MG tablet Every 8 hours levothyroxine (Synthroid, Levoxyl) 75 MCG tablet Every 24 hours methylPREDNISolone (Medrol Dospak) 4 MG tablets Follow schedule on package instructions omeprazole (PriLOSEC) [address] capsule Every 24 hours omeprazole (PriLOSEC) [address] capsule simvastatin (ZOCOR) 40 mg, Oral, Nightly sulfaSALAzine (AZULFIDINE) 500 mg, Oral, Every 24 hours zonisamide (Zonegran) 50 MG capsule TAKE TWO CAPSULES BY MOUTH DAILY AT BEDTIME PHYSICAL EXAM: Left Knee Exam Tenderness Left knee tenderness location: posterior knee pain. Range of Motion Extension: 0 Flexion: 100 Tests Varus: negative Valgus: negative Other Erythema: absent Sensation: normal Pulse: present Swelling: mild Vitals: There is no height or weight on file to calculate BMI. IMAGING: ASSESSMENT: ICD-10-CM 1. S/P left knee arthroscopy Z98.890 methylPREDNISolone (Medrol Dospak) 4 MG tablets 2. Left knee pain, unspecified chronicity M25.562 methylPREDNISolone (Medrol Dospak) 4 MG tablets Procedures PLAN: Patient is 11 weeks 6 days s/p LT knee arthroscopy and was found to have medial compartment arthritis, chalky deposits (gout/pseudogout) and medial meniscectomy was completed. I reviewed exam findings with the patient and discussed treatment options, answered questions. I believe that she strained her knee while on vacation and recommend a MDP to help decreased swelling. She will follow up in 2 weeks for RCK with Adali Edwards. Questions answered in laymen terms at the bedside. The diagnosis, home exercise plan and any ongoing restrictions/ recommendations reviewed. If unable to be reached in office, I recommend evaluation at nearest Emergency Room if any symptoms worsened or new symptoms develop for requiring urgent evaluation. Abhi Ramires APRN-FIELD CONTACT TECHNICIAN documented in this encounterSam[facility] [id number] History of Present illness Narrative* Adali Giordano NP - 10/16/2023 10:15 AM EDT Images from the original note were not included. Subjective Patient ID: Alexandra Cervantes is a 73 y.o. female. 1 week s/p LT knee arthroscopy (DOS 10/09/23) sutures intact. She notes she is doing better since surgery. Denies fevers/chills/drainage. Pain at rest 0/10 with activities 4-5/10 she is taking advil prn for the pain. Using ice prn. Not using anything topical. She notes the swelling is improving. Denies N/T. Objective Ortho Exam Knee Musculoskeletal Exam Inspection Left Erythema: none Edema: mild Ecchymosis: none Previous incision: arthroscopic portals Incision: clean and dry Inspection additional comments: Nv intact, negative homans sign, no signs of infection, sutures removed in office, steri strips applied Assessment/Plan Encounter Diagnoses: ICD-10-CM 1. Arthritis of left knee M17.12 2. S/P left knee arthroscopy Z98.890 There were no pictures available to go over from surgery. We discussed the intraoperative findings,post op treatment plan, and future expectations. f/u in 4 weeks, she may do activities as tolerated. documented in this encounterNOMS [id number] History of Present illness Narrative* Adali Giordano NP - 11/13/2023 11:45 AM EDT Images from the original note were not [...] feels. she is taking advil prn for thepain in her body not necessarily for the knee. Using ice prn. Using voltaren gel prn. She notes theswelling is improving. Denies N/T. Occas giving out [...] as tolerated, f/U prn documented in this [facility]08-27-2024 Telephone encounter Note* Telephone Encounter - Abhi Ramires NP - 10/08/2023 3:02 PM EDT Post op pain rx. PDMP reviewed [facility] [id number] Miscellaneous Notes* Telephone Encounter - Abhi Ramires NP - 10/08/2023 3:02 PM EDT Post op pain rx. PDMP reviewed documented in this [facility]01-25-2024 Evaluation note* Encounter Date Diagnosis Assessment Notes Treatment Notes Treatment Clinical Notes Feb, Dyslipidemia (ICD-10 - E78.5) Check [...] continue to monitor through routine blood work [facility] Other 08-10-2023 Evaluation note* Encounter Date Diagnosis Assessment Notes Treatment Notes Treatment Clinical Notes Sep, Right foot pain (ICD-10 - M79.671) [facility] Other 07-25-2023 Evaluation note* Encounter Date Diagnosis [...] - E03.9) Chronic problem due for labs. [facility] Other 01-19-2023 Evaluation note* Encounter Date Diagnosis [...] - E78.5) Due for labs in summer. [facility] Other 12-08-2022 NoteCONSULTATION PROCEDURE DATE: 01/18/2022 PREOPERATIVE [...] will be followed up in the office.[id number] NoteCONSULTATION CONSULTATION DATE: 01/18/2022 HISTORY OF PRESENT [...] in three months' time, unless otherwise indicated.[facility] [id number] Evaluation + Plan note Diagnostic Tests Pending * CBC w/ Auto Diff 11/08/21 * Comprehensive Metabolic Panel 11/08/21 [facility] 09-08-2022 NoteCONSULTATION PROCEDURE DATE: [...] will be followed up in the office.[facility] 10-19-2021 NoteCONSULTATION CONSULTATION DATE: 10/19/2021 [...] in three months' time unless otherwise indicated.[facility] [id number] NoteCONSULTATION CONSULTATION DATE: 09/06/2021 HISTORY OF PRESENT [...] 8/10. She has been following up with [facility] and had a benign fibroid tumor [...] procedure, and patient agrees to move forward.[facility] [id number] NoteCONSULTATION PAIN MANAGEMENT CONSULTATION HISTORY: This is [...] and will call when needed. [facility] Signed and Approved by: ROBERTO MCNALLY . 04/27/2021 12:41:00[facility]12-14-2021 Hospital Discharge instructions Follow Up Care 01/24/2021 10:04:31 With:JANINA ALARCON, LENORE Farooq, [facility] Address: [facility] Care [facility] [place] [address]- When:6 months [facility] Evaluation + Plan note Future Appointments Appointment Date:11/08/2021 10:15:00 AM Scheduled Provider:Capri FULLER MD Location:[facility] Appointment Type:[facility] Follow Up Future Scheduled Tests Laboratory* CBC w/ Indices 07/25/20 * Comprehensive Metabolic Panel 07/25/20 [facility] Evaluation + Plan note Future Appointments Appointment Date:01/15/2024 12:00:00 PM Scheduled Provider: Location:[facility] Appointment Type:Surgery FT Appointment Date:01/30/2024 01:45:00 PM Scheduled Provider:Martin Tatum MD Location:[facility] Appointment Type:[facility] Follow Up Future Scheduled Tests Laboratory* O & P Exam, Routine 12/04/23 * Clostridium Difficile PCR 12/04/23 * Enteric Panel by PCR 12/04/23 [facility] Evaluation + Plan note Future Appointments Appointment Date:01/15/2024 12:00:00 PM Scheduled Provider: Location:[facility] Appointment Type:Surgery FT Appointment Date:01/30/2024 01:45:00 PM Scheduled Provider:Martin Tatum MD Location:[facility] Appointment Type:[facility] Follow Up Diagnostic Tests Pending * Celiac Disease Comprehensive 12/04/23 Future Scheduled Tests Laboratory* O & P Exam, Routine 12/04/23 * Clostridium Difficile PCR 12/04/23 * Enteric Panel by PCR 12/04/23 [facility] Evaluation + Plan note Future Appointments Appointment Date:01/15/2024 12:00:00 PM Scheduled Provider: Location:[facility] Appointment Type:Surgery FT Appointment Date:01/30/2024 01:45:00 PM Scheduled Provider:Martin Tatum MD Location:[facility] Appointment Type:[facility] Follow Up Diagnostic Tests Pending * O & P Exam, Routine 12/06/23 [facility] Evaluation + Plan note Future Appointments Appointment Date:04/29/2024 09:15:00 AM Scheduled Provider:Martin Tatum MD Location:[facility] Appointment Type:[facility] Follow Up Future Scheduled Tests Laboratory* Calprotectin, Fecal 01/30/24 [facility] Evaluation noteNo assessment information available [facility] Work Phone: Evaluation note* Diagnosis Arthritis of left knee- Primary S/P left knee arthroscopy documented [facility] Diagnosis S/P left knee arthroscopy- Primary Left knee pain, unspecified chronicity documented in [facility]* Diagnosis S/P left knee arthroscopy- Primary Left knee pain, unspecified chronicity Arthritis of left knee documented [facility]* Diagnosis Post-op pain- Primary Other acute postoperative pain documented in this [facility]* Diagnosis Arthritis of left knee- Primary S/P left knee arthroscopy documented [facility]* Diagnosis S/P left knee arthroscopy- Primary Left knee pain, unspecified chronicity Arthritis of left knee Internal derangement of left knee documented [facility]* Diagnosis Left knee pain, unspecified chronicity- Primary Internal derangement of left knee Arthritis of left knee documented in this encounter [facility] HealthcareHistory general Narrative - Reported* Type Description Date Medical History GERD Medical History Hypothyroid Medical History Depression Surgical History Appendectomy Surgical History Tubal Ligation Surgical History Right carpal tunnel Surgical History Right finger Surgical History Tumor removal right thyroid 3/ 022 Hospitalization History See past surgical hx [facility] Other Hospital course Narrative No data available for this section [facility] Hospital Discharge instructions No data available for this section [facility] Progress note No data available for this section [facility] Chief Complaint and Reason [...] Right foot pain (M79 .671) Referral Organization [facility] Referring Provider First Name Laurita Referring Provider Last Name Carmen Referring Provider Specialty [facility] Referred Organization [facility] Referred Provider Seymour Johnson Referred Address [address] [place], [place],[address] Referred Provider Specialty Podiatry - S urgical [...] Active Luis Gutierrez DO Attending Provider Active Human Resources Clerk Relationship Specialty Start Date End Date Laurita Morales MD [address] [place] [id number] PCP - General Family Medicine 08/26/23 Human Resources Clerk Relationship Specialty Start Date End Date Laurita Morales MD [address] [place] [phone] PCP - General Family Medicine 08/26/23 Human Resources Clerk Relationship Specialty Start Date End Date Laurita Morales MD [address] [place] [address] PCP - General Family Medicine 08/26/23 Human Resources Clerk Relationship Specialty Start Date End Date Laurita Morales MD [address] [facility] [place] [address] PCP - General Family Medicine 08/26/23 Human Resources Clerk Relationship Specialty Start Date End Date Laurita Morales MD [address] [facility] [place] [address] PCP - General Family Medicine 08/26/23 Human Resources Clerk Relationship Specialty Start Date End Date Laurita Morales MD [address] [facility] [place] [address] PCP - General Family Medicine 08/26/23 Human Resources Clerk Relationship Specialty Start Date End Date Laurita Morales MD [address] [facility] [place] [address] PCP - General Family Medicine 08/26/23 Human Resources Clerk Relationship Specialty Start Date End Date Laurita Morales MD [address] [facility] [place] [address] PCP - General Family Medicine 08/26/23 Human Resources Clerk Relationship Specialty Start Date End Date Laurita Morales MD [address] [facility] [place] [address] PCP - General Family Medicine 08/26/23 Human Resources Clerk Relationship Specialty Start Date End Date Laurita Morales MD [address] [facility] [place] [address] PCP - General Family Medicine 08/26/23 Human Resources Clerk Relationship Specialty Start Date End Date Laurita Morales MD [facility] [place] [address] PCP - General Family Medicine 08/26/23 Goals (unrecognized section and content) Goals may be documented in a n alternate section No data available for this sectionGoals may be documented in an alternate section No data available for this sectionNo InformationNo InformationNo InformationNo Information No data available for this section No data available for this section No data available for this section No data available for this section No data available for this section No data available for this section INFORMATION SOURCE (unrecogn ized section and content) DATE CREATED AUTHOR 05/23/2021 [facility]ical Specialist DATE CREATED AUTHOR AUTHOR'S ORGANIZ ATION 01/23/2022 [facility] DATE CREATED AUTHOR AUTHOR'S ORGANIZ ATION 03/17/2022 [facility] DATE CREATED AUTHOR AUTHOR'S ORGANIZ ATION 12/03/2023 [facility] DATE CREATED AUTHOR AUTHOR'S ORGANIZ ATION 12/08/2023 [facility] DATE CREATED AUTHOR AUTHOR'S ORGANIZ ATION 12/10/2023 [facility] DATE CREATED AUTHOR AUTHOR'S ORGANIZ ATION 12/12/2023 [facility] DATE CREATED AUTHOR AUTHOR'S ORGANIZ ATION 01/23/2024 [facility] DATE CREATED AUTHOR AUTHOR'S ORGANIZ ATION 01/25/2024 [facility] DATE CREATED AUTHOR AUTHOR'S ORGANIZ ATION 02/03/2024 [facility] DATE CREATED AUTHOR AUTHOR'S ORGANIZ ATION 03/20/2024 [facility] d[facility] Special[facility] DATE CREATED AUTHOR AUTHOR'S ORGANIZ ATION 03/22/2024 [facility] REASON FOR VISIT (unrecogniz ed section and content) Reason Comments Follow-up Reason Comments Pain Reason Comments Follow-up Reason Onset Date Comments MRI 03/02/2024 FOR RECORDS PERTAINING TO PATIENTS WHO ARE [...] BE BASED ON THE PRIMARY CLINICAL RECORDS. [facility] provides no warranty or guarantee of the accuracy or completeness of information in this document.
--- NOTE | 2024-03-25 15:16 | P.CN_ITS ---
Consult Note: HPI Data of Consult Patient: known to practice within the last 3 years Requesting Physician: Renee Bernal NP Primary Care Provider: Danyell Kelly MD Consult Narrative Reason for consult: MRI f/u Narrative: Tisha Cervantes a pleasant 73 year old female presents for evaluation of chronic right foot pain secondary to lumbar radiculopathy. Patient has failed to benefit from >6 weeks of PT, tylenol, nsaids, and topical voltaren cream. Patient currently utilizing aleve and baclofen PRN. now stating shes not sure when she last took zonegran. Patient previously underwent L5/S1 TAMMY with >50% improvement for 3 months and would like to discuss repeating. Pain today 4-5/10 increasing with standing, walking, housework and activity. Pain improved with sitting lying and sleep. cc:: CC: Renee Bernal NP Review of Systems ROS Status of ROS 10 or more systems reviewed and unremark able except as noted in history and below Musculoskeletal Reports: extremity pain PFSH PFSH Medical History (Updated 11/29/23 @ 11:35 by Nhi Jane MD) Hypothyroid ?E03.9 - Hypothyroidism, unspecified (ICD-10) Acid reflux ?K21.9 - Gastro-esophageal reflux disease without esophagitis (ICD-10) Tumor, thyroid ?D49.7 - Neoplasm of unspecified behavior of endocrine glands and other parts of nervous system (ICD-10) Carpal tunnel syndrome ?G56.00 - Carpal tunnel syndrome, unspecified upper limb (ICD-10) Sleep apnea ?G47.30 - Sleep apnea, unspecified (ICD-10) Surgical History History of tubal ligation ?Z98.51 - Tubal ligation status (ICD-10) History of appendectomy ?Z90.49 - Acquired absence of other specified parts of digestive tract (ICD- 10) History of carpal tunnel release ?Z98.890 - Other specified postprocedural states (ICD-10) Social History Little interest or pleasure in doing things: not at all Feeling down, depressed, or hopeless: not at all Meds Home Medications and Allergies Home Medications ?Medication ?Instructions ?Recorded ?Confirmed ?Type alprazolam 0.5 mg tablet 0.5 mg PO DAILY 09/10/23 11/29/23 History baclofen 10 mg tablet 10 mg PO DAILY PRN spasms 09/10/23 10/29/23 History escitalopram oxalate 20 mg tablet 20 mg PO DAILY 09/10/23 11/29/23 History ibuprofen 400 mg tablet 400 mg PO TID 09/10/23 10/29/23 History levothyroxine 75 mcg tablet 75 mcg PO DAILY 09/10/23 11/29/23 History omeprazole 40 mg capsule,delayed 40 mg PO DAILY 09/10/23 11/29/23 History release simvastatin 40 mg tablet 40 mg PO DAILY 09/10/23 11/29/23 History sulfasalazine 500 mg tablet 0.5 g PO DAILY 09/10/23 10/29/23 History zonisamide 50 mg capsule 50 mg PO DAILY 09/10/23 11/29/23 History magnesium oxide 400 mg PO DAILY #7 caps 11/29/23 Rx potassium chloride 20 mEq oral 40 meq PO DAILY 3 days #6 ea 11/29/23 Rx packet Allergies Allergy/AdvReac Type Severity Reaction Status Date / Time No Known Drug Allergies Allergy Verified 11/29/23 09:51 Exam Constitutional Documenting provider has reviewed patient's vital signs: yes Common normals: no apparent distress, oriented x3, healthy appearing, alert and well nourished General appearance: cooperative HENHI Common normals: normocephalic, hearing grossly normal bilaterally and moist oral mucous membranes Head and scalp: normocephalic Eye Common normals: PERRL Pupil: PERRL Neck & C-Spine Common normals: full ROM General: normal visual inspection Chest Common normals: inspection of chest normal Respiratory Common normals: normal respiratory effort, no retractions and no use of accessory muscles Back & Pelvis Lumbar spine/lower back: ROM limited, pain with ROM and straight leg raise positive right Sacroiliac joints: SI joints normal Other: positive facet loading strength 5/5 in BLE altered sensation to right L5,S1 Neuro Common normals: oriented x3, CN's II-XII intact bilaterally, moves all extremities, no focal motor deficits, no sensory deficits noted and deep tendon reflexes 2+ bilaterally Sensorium/orientation: alert Motor exam: strength 5/5 throughout and no movement abnormalities noted Psych Common normals: mental status grossly normal, thought process normal, cooperative, affect normal, speech normal and activity/motor behavior normal Speech: normal speech Thought process: normal thought process Results Additional Findings Additional findings: If on a controlled substance or opioids, I have checked an [place] report on this patient and there are no aberrancies noted in the prescribing history.??If on a controlled substance or opioid a drug screen was completed and reviewed within the last year, and if there has not been a drug screen completed we ordered one today to monitor higher risk, state monitored pain medication use. As part of providing excellent, safe, comprehensive care, the following was completed at our patient's visit: 1. A medication reconciliation and review to ensure accurate knowledge of current/active medications, including asking our patients to inform us about any hdam-fxi-czchnst medications or herbal remedies/nutritional supplements/alternative remedies. 2. A review to specifically ensure our patients have had annual screening for screening for depression, screening for tobacco use, and screening for unhealthy alcohol use. For concerning screenings had a discussion with the patient, provided patient education, and recommended follow-up with primary care provider when appropriate. If patient noted with a risk of falling, they received education on strength, gait, and balance training to prevent future risk of falling. Assessment and Plan Assessment and Plan (1) Lumbar radiculopathy: (2) Lumbar degenerative disc disease: (3) Spondylolisthesis: Plan repeat L5-S1 TAMMY under fluoroscopy continue HEP as tolerated continue current medications f/u 2 weeks after injection
== END 2024-03-25 14:37 | disposition home or self-care (01) ==
LOC: PM 14:36
PROVIDERS: PCP Family Medicine; Visit Provider Nurse Practitioner
DX: M54.16 Radiculopathy, lumbar region (principal); M51.369 Other intervertebral disc degeneration, lumbar region without mention of lumbar back pain or lower extremity pain; M43.16 Spondylolisthesis, lumbar region
CPT/HCPCS: G0463

== ENCOUNTER 2024-03-31 07:22 | Day surgery (SDC) | payer MEDICARE, OTHER, SELFPAY ==
--- OUTSIDE RECORDS SUMMARY | 2024-03-31 07:25 | XMS_ITS | CCD ---
Author Organization [facility] Care Team Providers Care Automatic Blocker Name Role Phone MD Cy Sears Attending Provider MD Laurita Morales Primary Care Provider LAURITA MORALES Primary Care Physician DO Luis Gutierrez Attending Provider [phone] CARMEN, DR LAURITA Solis Attending Unavailable MORALES, DR [...] DR RADHA Whitfield Attending Unavailable ESEQUIEL, DR RAHDA Whitfield Admitting Unavailable ROBERTO MCNALLY Consulting Unavailable SALAM, CAPRI Admitting Unavailable MORALES, DR LAURITA Solis Primary Care Unavailable SALAM, CAPRI Attending Unavailable DR LUIS GUTIERREZ Consulting Unavailable MORALES, DR LAURITA Solis Primary Care Unavailable MORALES, DR LAURITA Solis Admitting Unavailable MORALES, DR LAURITA Solis Attending Unavailable HOBART, DR LONNY Wiggins Consulting Unavailable MORALES, DR [...] MCNALLY, ROBERTO Consulting Unavailable MORALES, DR LAURITA Solis Primary Care Unavailable ESEQUIEL, DR RADHA Whitfield Attending Unavailable ESEQUIEL, DR RADHA Whitfield Admitting Unavailable MORALES, DR LAURITA Solis Primary Care Unavailable IRAHETA, DR RADHA Whitfield Admitting Unavailable IRAHETA, DR RADHA Whitfield Attending Unavailable IRAHETA, DR RADHA Whitfield Consulting Unavailable MCNALLY, ROBERTO Consulting Unavailable MCNALLY, ROBERTO Consulting Unavailable MORALES, DR LAURITA Solis Primary Care Unavailable ESEQUIEL, DR RADHA Whitfield Attending Unavailable SEEQUIEL, DR RADHA Whitfield Admitting Unavailable MORALES, DR LAURITA Solis Primary Care Unavailable IRAHETA, DR RADHA Whitfield Attending Unavailable ESEQUIEL, DR RADHA Whitfield Admitting Unavailable SALAM, FAROOQ Admitting Unavailable MORALES, DR LAURITA Solis Primary Care Unavailable SALAM, FAROOQ Attending Unavailable SALAM, FAROOQ Consulting Unavailable MORALES, DR LAURITA Solis Primary Care Unavailable MISC, DOCTOR Admitting Unavailable MISC, DR HIDALGO Attending Unavailable MISC, DR HIDALGO Consulting Unavailable Luis Gutierrez Admitting Unavailable Laurita Morales Primary Care Unavailable Luis Gutierrez Attending Unavailable Cy Sears Attending Unavailable Cy Sears Admitting Unavailable Laurita Morales Primary Care Unavailable Laurita Morales Primary Care Unavailable Luis Gutierrez Attending Unavailable Luis Gutierrez Admitting Unavailable Laurita Morales Unavailable Laurita Morales MD Primary Care Provider [phone] Martin Tatum Attending Unavaila ble Sarmini, Martin Felicianoal Admitting Unavaila ble Sarmini, Martin Talal Attending Unavaila ble Sarmini, Martin Khan Attending Unavaila ble Sarmini, Martin Talal Admitting Unavaila ble Sarmini, Martin Khan Attending Unavaila ble Sarmini, Martin Talal Admitting Unavaila ble Sarmini, Martin Talgail Attending Unavaila pato GUERRERO JR., GEORGE C Attending Unavaila ADALI Martin Attending Unavailable ADALI GIORDANO Referring Unavailable DNAIELLE CURRAN Attending Unavailable ADALI GIORDANO Attending Unavailable [...] every six hours for pain HYDROcodone-acetami nophen ([place]) 5-325 MG tablet Indications: Post-op pain Take [...] Daily, # 30 tab(s), Refills(s) 0, Pharmacy: [facility] 1155, 150, cm, 07/25/20 14:29:00 EDT, Height/Length [...] 0 Start Date: 03/20/24 Status: Ordered NuLYTELY [place] oral powder for reconstitution (1 source) Start: 01-28-2020 take 1 dose by mouth once NuLYTELY [place] oral powder for reconstitution See Instructions, 1 [...] the same time Active polyethylene glycol 3350 702457 mg / potassium chloride 1480 mg / sodium bicarbonate 5720 mg / sodium chloride 08427 mg powder for oral solution (1 source) Osmotic Laxative Start: 01-28-2020 take 1 dose by mouth once NuLYTELY [place] oral powder for reconstitution See Instructions, 1 [...] finished, # 252 tab(s), Refills(s) 0, Pharmacy: [facility] 1155, 69, kg, 01/15/24 9:14:00 EST, Weight [...] day(s), # 540 tab(s), Refills(s) 3, Pharmacy: [facility] 1155, 150, cm, 03/20/24 11:03:00 EST, Height/Length Dosing, 74.6, kg, 03/20/24 11:03:00 EST, Weight Dosing Start Date: 03/20/24 Stop Date: 03/15/25 Status: Ordered Start: 05-26-2021 take 500 mg by mouth four times daily Sulfasalazine Active 500 MG PO Four times daily May 26, 2021 2:53pm Start: 05-10-2021 take 2 tablets by mo [facility] three times daily sulfasalazine 500 mg Tab 1,000 mg = 2 tab(s), Oral, TID, # 180 tab(s), Refills(s) 11, Pharmacy: [facility]/pharmacy #[id number], 150, cm, 05/10/21 [...] Test Name Value Interpretation Reference Range Facility Reminderson 03-24-2024 Reminders Reminders From: Radha Dominguez To: Radha Dominguez; Ramonita Keller; Sent: 03/24/2024 12:57:41 EST Show up: 05/22/2024 13:57:00 EDT Subject: Ambulatory Reminder Due Date/Time: 06/21/2024 13:57:00 EDT Reminder Please call the patient in May to schedule her colonoscopy late May/June, with Dr Deepti Solorio [facility] Gastroenterology Office/Clin ic Noteon 03-20-2024 Gastroenterology Office/Clinic [...] fL (01/15/24) Chloride: 100 mmol/L Low (01/15/24) [place] Absolute: 1.1 E9/L High (01/15/24) CO2: 23 mmol/L (01/15/24) [place] Auto: 10.6 % (01/15/24) Creatinine: 0.6 mg/dL [...] years, pereira (more content not included)... Normal [facility] Comment on above: Result Comment: Elec tronically Signed By: Deepti ALARCON, Martin Khan\.br\Date and Time Signed: 03/20/24 11:30 EST\.br\Electronically Co-Signed By: Jacquie Gauthier MA\.br\Date and Time Co-Signed: 03/20/24 11:29 EST Ambulatory Visit Summaryon 1 04-01-2023 Ambulatory Visit Summary Ambulatory Visit Summary ALEXANDRA CERVANTES [place] :1950 Visit Date:01/30/2024 Ambulatory Visit Instructions Your [...] Follow-Up Appointments Saturday 9:15 AM EDT With: Deepti ALARCON, Martin Khan Where: [facility] [address] [place], [place] [id number]- You Need to Complete the Following Calprotectin, [...] for choosing us for your care. Normal [facility] Gastroenterology Office/Clin ic Noteon 01-30-2024 Gastroenterology Office/Clinic [...] for h (more content not included)... Normal [facility] Comment on above: Result Comment: Elec tronically Signed By: Deepti ALARCON, Martin Khan\.br\Date and Time Signed: 01/30/24 14:13 EST Surgical Pathology Reporton 01-22-2024 Surgical Pathology Report [facility] [address] [place] [address]- Surgical Pathology Report Collected Date/Time: 01/15/2024 12:33 EST Pathologist: Albaro ALARCON PhD, Scooby Valdez Date/Time: 01/16/2024 08:04 EST Deepti ALARCON, Martin [...] is entirely submitted in one cassette. (DC) DC:[facility] Microscopic Description Microscopic examination performed unless gross only specified. The use of one or more reagents in the above tests is regulated as an analyte specific reagent (ASR). The test or tests are ordered following initial H&E microscopic examination. The performance characteristics were determined by the [facility] Surgical Pathology. They have not been cleared or approved by the US Food and Drug Administration. The FDA has determined that such clearance or approval is not necessary. These tests are used for clinical purposes. They should not be regarded as investigational or for research. Appropriate positive and negative controls are performed and are acceptable. Normal [facility] Comment on above: Performed By: #### 4 [id number] #### [facility] [address] [place] [address] Quantiferon-TB Plus (Client Incubated)on 01-17-2024 Gamma interferon background IA Qn (Bld) 0.02 International_Unit/mL Invalid Interpretation Code [facility] Comment on above: Performed By: #### 1 [id number] #### [facility] [address] [place] [address] M. tuberculosis stim IFN-g by CD4+ CD8+ T-cells corrected for background Qn (Bld) 0.05 International_Unit/mL Invalid Interpretation Code [facility] Comment on above: Performed By: #### 1 [id number] #### [facility] [address] [place] [address] M. tuberculosis stim IFN-g by CD4+ T-cells corrected for background Qn (Bld) 0.02 International_Unit/mL Invalid Interpretation Code [facility] Comment on above: Performed By: #### 1 [id number] #### [facility] [address] [place] [address] M. tuberculosis stim IFN-g Ql (Bld) [Interp] Negative Invalid Interpretation Code Negative [facility] Comment on above: Result Comment: No r [...] interferon gamma. Chemiluminescence immunoassay methodology Performed at: [address] [id number] PhD Kirk Cm Performed By: #### 1 [id number] #### [facility] [address] [place] [address] Mitogen stimulated gamma interferon corrected for background Qn (Bld) >10.00 Invalid Interpretation Code [facility] Comment on above: Performed By: #### 1 [id number] #### [facility] [address] [place] [address] Service comment (Unsp spec) [Interp] Comment Invalid Interpretation Code [facility] Comment on above: Result Comment: Terry tiFERON-TB [...] for the test. Performed By: #### 1 [id number] #### [facility] [address] [place] [address] Enteric Panel by PCRon 01-15 Enteric Panel by PCR Shiga Tox Interp Negative for Shiga Toxin producing E. coli Normal [facility] CHEMISTRYOrdered By: SYSTEM SYSTEM on 01-15-2024 Albumin [...] samples in close time sequence. Normal Negative [facility] Comment on above: Result Comment: This test result should be correlated with clinical presentations and medical history by a healthcare provider to determine its clinical significance.\.br\.br\ Other Comment: Order added by Discern Expert. Clostridium difficile by PCR Negative Normal Negative [facility] Comment on above: Order Comment: Order added by Discern Expert. Result Comment: This test result should be correlated with clinical presentations and medical history by a healthcare provider to determine its clinical significance. Performed By: #### 4 [id number] #### [facility] [address] [place] [address] CDiff PCRon 12-06-2023 C. difficile toxin A+B Ql (Stl) No, PCR to follow Normal [facility] Comment on above: Performed By: #### 3 [id number] #### [facility] [address] [place] [address] CDiff PCR Order Cancelled Specimen has been found to be acceptable for C. difficile testing. Normal [facility] Enteric Panel by PCRon 12-05 C. coli+jejuni+upsalien sis DNA ADELITA+non-probe Ql (Stl) Not detected Normal [facility] Comment on above: Result Comment: Test ing was performed utilizing reverse supervisor audit clerks (RT), polymerase chain reaction (PCR), and array [...] nulcleic acid test. Performed By: #### 1 [id number] #### [facility] [address] [place] [address] E. coli stx1+stx2 genes ADELIAT+non-probe Ql (Stl) Negative Normal [facility] Comment on above: Performed By: #### 1 [id number] #### [facility] [address] [place] [address] Enteric Panel by PCR Shiga Tox Interp Negative for Shiga Toxin producing E. coli Normal [facility] Enteric Panel Intrl QC Pass Normal [facility] Comment on above: Result Comment: Test ing was performed utilizing reverse supervisor audit clerks (RT), polymerase chain reaction (PCR), and array [...] 1 and 2. Performed By: #### 1 [id number] #### [facility] [address] [place] [address] Norovirus genogroup I+II RNA ADELITA+non-probe Ql (Stl) Not detected Normal [facility] Comment on above: Performed By: #### 1 [id number] #### [facility] [address] [place] [address] Rotavirus A RNA ADELITA+non-probe Ql (Stl) Not detected Normal [facility] Comment on above: Performed By: #### 1 [id number] #### [facility] [address] [place] [address] S. enterica+bongori DNA ADELITA+non-probe Ql (Stl) Not detected Normal [facility] Comment on above: Result Comment: This test result should be correlated with clinical presentations and medical history by a healthcare provider to determine its clinical significance. Performed By: #### 1 [id number] #### [facility] [address] [place] [address] Shigella species+EIEC invasion plasmid antigen H ipaH gene ADELITA+non-probe Ql (Stl) Not detected Normal [facility] Comment on above: Performed By: #### 1 [id number] #### [facility] [address] [place] [address] V. cholerae+parahaemoly ticus+vulnificus DNA ADELITA+non-probe Ql (Stl) Not detected Normal [facility] Comment on above: Performed By: #### 1 [id number] #### [facility] [address] [place] [address] Y. enterocolitica DNA ADELITA+non-probe Ql (Stl) Not detected Normal [facility] Comment on above: Performed By: #### 1 [id number] #### [facility] [address] [place] [address] Celiac Disease Comprehensive on 12-05-2023 Endomysium IgA Ql (S) Negative Invalid Interpretation Code Negative [facility] Comment on above: Performed By: #### 1 [id number] #### [facility] [address] [place] [address] Gliadin peptide IgA Qn (S) 4 unit(s) Invalid Interpretation Code 0- [facility] Comment on above: Result Comment: Nega tive 0 - 19 Weak Positive 20 - 30 Moderate to Strong Positive >30 Performed By: #### 1 [id number] #### [facility] [address] [place] [address] Gliadin peptide IgG Qn (S) 3 unit(s) Invalid Interpretation Code 0-19 [facility] Comment on above: Result Comment: Nega tive 0 - 19 Weak Positive 20 - 30 Moderate to Strong Positive >30 Performed By: #### 1 [id number] #### [facility] [address] [place] [address] IgA [Mass/Vol] 248 mg/dL Invalid Interpretation Code 6[address] [facility] Comment on above: Result Comment: Perf ormed at: [facility] [address] [id number] PhD Kirk Cm Performed By: #### 1 [id number] #### [facility] [address] [place] [address] tTG IgA Qn (S) <2 Invalid Interpretation Code 0-3 [facility] Comment on above: Result Comment: Nega tive 0 - 3 Weak Positive 4 - 10 Positive >10 Tissue Transglutaminase (tTG) has been identified as the endomysial antigen. Studies have demonstr- ated that endomysial IgA antibodies have over 99% specificity for gluten sensitive enteropathy. Performed By: #### 1 [id number] #### [facility] [address] [place] [address] tTG IgG Qn (S) 5 unit/mL Invalid Interpretation Code 0-5 [facility] Comment on above: Result Comment: Nega tive 0 - 5 Weak Positive 6 - 9 Positive >9 Performed By: #### 1 [id number] #### [facility] [address] [place] [address] CHEMISTRYOrdered By: SYSTEM SYSTEM on 12-04-2023 TSH Qn 1.76 m[IU]/L Normal 0.34 - 5.60 mcIU/mL Remisol Chem TSHon 12-04-2023 TSH Qn 1.76 m[IU]/L Normal 0.34-5.60 [facility] Comment on above: Performed By: #### 2 [id number] #### [facility] [address] [place] [address] CBC AUTO DIFFon 11-21-2021 BASO # 0.1 103/ul Normal 0.0-0.1 [facility] Comment on above: Performed By: #### C BC #### [facility] [address] [address] [address] Scooby Irvin Basophils/100 WBC (Bld) 0.5 % Normal 0.2-2.0 [facility] Comment on above: Performed By: #### C BC #### [facility] [address] [place] [address] Dr. Scooby Irvin EO # 0.0 103/ul Normal 0.0-0.7 [facility] Comment on above: Performed By: #### C BC #### [facility] [address] [place] [address] Dr. Scooby Irvin Eosinophils/100 WBC (Bld) 0.1 % Critically low 0.9-7.0 [facility] Comment on above: Performed By: #### C BC #### [facility] [address] [place] [address] Dr. Scooby Irvin Erythrocyte distribution width (RBC) [Ratio] 15.1 % Critically high 11.0-15.0 [facility] Comment on above: Performed By: #### C BC #### [facility] [address] [place] [address] Dr. Scooby Irvin Hematocrit (Bld) [Volume fraction] 39.4 % Normal 36.0-48.0 [facility] Comment on above: Performed By: #### C BC #### [facility] [address] [place] [address] Dr. Scooby Irvin Hemoglobin (Bld) [Mass/Vol] 12.6 g/dL Normal 12.0-16.0 [facility] Comment on above: Performed By: #### C BC #### [facility] [address] [place] [address] Dr. Scooby Irvin IG # 0.05 10e3/ul Critically high 0.00-0.03 [facility] Comment on above: Performed By: #### C BC #### [facility] [address] [place] [address] Dr. Scooby Irvin IG % 0.5 % Normal 0.0-0.5 [facility] Comment on above: Performed By: #### C BC #### [facility] [address] [place] [address] Dr. Scooby Irvin LYMPH # 1.3 103/ul Normal 1.2-3.8 [facility] Comment on above: Performed By: #### C BC #### [facility] [address] [place] [address] Dr. Scooby Irvin Lymphocytes/100 WBC (Bld) 13.2 % Critically low 20.5-60.0 [facility] Comment on above: Performed By: #### C BC #### [facility] [address] [place] [address] Dr. Scooby Irvin MANUAL DIFF REQ NO Normal [facility] Comment on above: Performed By: #### C BC #### [facility] [address] [place] [address] Dr. Scooby Irvin MCH (RBC) [Entitic mass] 30.0 pg Normal 26.7-34.0 [facility] Comment on above: Performed By: #### C BC #### [facility] [address] [place] [address] Dr. Scooby Irvin MCHC (RBC) [Mass/Vol] 32.0 g/dL Normal 29.9-35.2 [facility] Comment on above: Performed By: #### C BC #### [facility] [address] [place] [address] Dr. Scooby Irvin MCV (RBC) [Entitic vol] 93.8 fL Normal 81.0-99.0 [facility] Comment on above: Performed By: #### C BC #### [facility] [address] [place] [address] Dr. Scooby Irvin MONO # 0.7 103/ul Normal 0.3-0.8 [facility] Comment on above: Performed By: #### C BC #### [facility] [address] [place] [address] Dr. Scooby Irvin Monocytes/100 WBC (Bld) 7.2 % Normal 1.7-12.0 [facility] Comment on above: Performed By: #### C BC #### [facility] [address] [place] [address] Dr. Scooby Irvin NEUT # 7.5 103/ul Critically high 1.4-6.5 [facility] Comment on above: Performed By: #### C BC #### [facility] [address] [place] [address] Dr. Scooby Irvin Neutrophils/100 WBC (Bld) 78.5 % Critically high 43.0-75.0 [facility] Comment on above: Performed By: #### C BC #### [facility] [address] [place] [address] Dr. Scooby Irvin Platelet mean volume (Bld) [Entitic vol] 9.9 fL Normal 9.5-13.5 [facility] Comment on above: Performed By: #### C BC #### [facility] [address] [place] [address] Dr. Scooby Irvin PLT 230 103/ul Normal 150-450 [facility] Comment on above: Performed By: #### C BC #### [facility] [address] [place] [address] Dr. Scooby Irvin RBC 4.20 106/ul Normal 4.20-5.40 [facility] Comment on above: Performed By: #### C BC #### [facility] [address] [place] [address] Dr. Scooby Irvin WBC 9.5 103/ul Normal 4.0-11.0 [facility] Comment on above: Performed By: #### C BC #### [facility] [address] [place] [address] Dr. Scooby Irvin PROF 14(COMP METB)on 022 Albumin [Mass/Vol] 3.9 g/dL Normal 3.4-5.0 [facility] Comment on above: Performed By: #### C BC #### [facility] [address] [place] [address] Dr. Scooby Irvin Albumin/Globulin [Mass ratio] 1.0 {ratio} Normal [facility] Comment on above: Performed By: #### C BC #### [facility] [address] [place] [address] Dr. Scooby Irvin ALP [Catalytic activity/Vol] 87 U/L Normal 46-116 [facility] Comment on above: Performed By: #### C BC #### [facility] [address] [place] [address] Dr. Scooby Irvin ALT [Catalytic activity/Vol] 29 U/L Normal 14-59 [facility] Comment on above: Performed By: #### C BC #### [facility] [address] [address] [address] Scooby Irvin Anion gap [Moles/Vol] 14.1 mmol/L Normal [facility] Comment on above: Performed By: #### C BC #### [facility] [address] [address] [address] Scooby Irvin AST [Catalytic activity/Vol] 38 U/L Critically high 15-37 [facility] Comment on above: Performed By: #### C BC #### [facility] [address] [place] [address] Dr. Scooby Irvin Bilirubin [Mass/Vol] 0.5 mg/dL Normal 0.2-1.0 [facility] Comment on above: Performed By: #### C BC #### [facility] [address] [place] [address] Dr. Scooby Irvin Calcium [Mass/Vol] 9.2 mg/dL Normal 8.5-10.1 [facility] Comment on above: Performed By: #### C BC #### [facility] [address] [place] [address] Dr. Scooby Irvin Chloride [Moles/Vol] 102 mmol/L Normal 98-107 [facility] Comment on above: Performed By: #### C BC #### [facility] [address] [place] [address] Dr. Scooby Irvin CO2 [Moles/Vol] 25.7 mmol/L Normal 21.0-32.0 [facility] Comment on above: Performed By: #### C BC #### [facility] [address] [place] [address] Dr. Scooby Irvin Creatinine [Mass/Vol] 0.76 mg/dL Normal 0.55-1.02 [facility] Comment on above: Performed By: #### C BC #### [facility] [address] [place] [address] Dr. Scooby Irvin EGFR-AF TURKMEN >60 Normal >=60 [facility] Comment on above: Performed By: #### C BC #### [facility] [address] [address] [address] Scooby Irvin EGFR-NON AF TURKMEN >60 Normal >=60 [facility] Comment on above: Performed By: #### C BC #### [facility] [address] [address] [address] Scooby Irvin Globulin (S) [Mass/Vol] 3.8 g/dL Normal [facility] Comment on above: Performed By: #### C BC #### [facility] [address] [address] [address] Scooby Irvin Glucose [Mass/Vol] 104 mg/dL Normal 74-106 [facility] Comment on above: Performed By: #### C BC #### [facility] [address] [place] [address] Dr. Scooby Irvin Potassium [Moles/Vol] 4.8 mmol/L Normal 3.5-5.1 [facility] Comment on above: Performed By: #### C BC #### [facility] [address] [place] [address] Dr. Scooby Irvin Protein [Mass/Vol] 7.7 g/dL Normal 6.4-8.2 [facility] Comment on above: Performed By: #### C BC #### [facility] [address] [place] [address] Dr. Scooby Irvin Sodium [Moles/Vol] 137 mmol/L Normal 136-145 [facility] Comment on above: Performed By: #### C BC #### [facility] [address] [place] [address] Dr. Scooyb Irvin Urea nitrogen [Mass/Vol] 9.0 mg/dL Normal 7.0-18.0 [facility] Comment on above: Performed By: #### C BC #### [facility] [address] [place] [address] Dr. Scooby Irvin Urea nitrogen/Creatinine [Mass ratio] 11.8 mg/mg Normal [facility] Comment on above: Performed By: #### C BC #### [facility] [address] [address] [address] Scooby Irvin LIPID PROFILEon 09-27-2021 CHOL-HDL RATIO NORM SEE BELOW Normal [facility] Comment on above: Result Comment: 3.3 - 4.4 LOW RISK 4.4 - 7.1 AVERAGE RISK 7.1 - 11.0 MODERATE RISK >11.0 HIGH RISK Performed By: #### C MP, LIPID #### [facility] [address] [address] [address] Scooby Irvin Cholesterol [Mass/Vol] 235 mg/dL Critically high <=200 [facility] Comment on above: Performed By: #### C MP, LIPID #### [facility] [address] [address] [address] Scooby Irvin Cholesterol in HDL [Mass/Vol] 65 mg/dL Critically high 40-60 [facility] Comment on above: Performed By: #### C MP, LIPID #### [facility] [address] [address] [address] Scooby Irvin Cholesterol in LDL [Mass/Vol] 156.8 mg/dL Normal [facility] Comment on above: Performed By: #### C MP, LIPID #### [facility] [address] [address] [address] Scooby Irvin Cholesterol.total/Ch olesterol in HDL [Mass ratio] 3.6 {ratio} Normal [facility] Comment on above: Performed By: #### C MP, LIPID #### [facility] [address] [address] [address] Scooby Irvin HDL NORMAL > or = 60 mg/dl - LO W CARDIOVASCULAR RISK <40 mg/dl - HIGH CARDIOVASCULAR RISK Normal [facility] Comment on above: Performed By: #### C MP, LIPID #### [facility] [address] [address] [address] Scooby Irvin LDL CALC NORMAL SEE BELOW Normal [facility] Comment on above: Result Comment: <100 mg/dl OPTIMAL 100 - 129 mg/dl NEAR OR ABOVE OPTIMAL 130 - 159 mg/dl BORDERLINE HIGH 160 - 189 mg/dl HIGH >190 mg/dl VERY HIGH Performed By: #### C MP, LIPID #### [facility] [address] [place] [address] Dr. Scooby Irvin Triglyceride [Mass/Vol] 66 mg/dL Normal <=150 [facility] Comment on above: Performed By: #### C MP, LIPID #### [facility] [address] [address] [address] Scooby Irvin VLDL CALC 13.2 mg/dL Normal [facility] Comment on above: Performed By: #### C MP, LIPID #### [facility] [address] [place] [address] Dr. Scooby Irvin PROF 14(COMP METB)on 022 Albumin [Mass/Vol] 3.9 g/dL Normal 3.4-5.0 [facility] Comment on above: Performed By: #### C MP, LIPID #### [facility] [address] [place] [address] Dr. Scooby Irvin Albumin/Globulin [Mass ratio] 1.1 {ratio} Normal [facility] Comment on above: Performed By: #### C MP, LIPID #### [facility] [address] [place] [address] Dr. Scooby Irvin ALP [Catalytic activity/Vol] 87 U/L Normal 46-116 [facility] Comment on above: Performed By: #### C MP, LIPID #### [facility] [address] [place] [address] Dr. Scooby Irvin ALT [Catalytic activity/Vol] 27 U/L Normal 14-59 [facility] Comment on above: Performed By: #### C MP, LIPID #### [facility] [address] [place] [address] Dr. Scooby Irvin Anion gap [Moles/Vol] 16.9 mmol/L Normal [facility] Comment on above: Performed By: #### C MP, LIPID #### [facility] [address] [place] [address] Dr. Scooby Irvin AST [Catalytic activity/Vol] 21 U/L Normal 15-37 [facility] Comment on above: Performed By: #### C MP, LIPID #### [facility] [address] [place] [address] Dr. Scooby Irvin Bilirubin [Mass/Vol] 0.4 mg/dL Normal 0.2-1.0 [facility] Comment on above: Performed By: #### C MP, LIPID #### [facility] [address] [address] [address] Scooby Irvin Calcium [Mass/Vol] 8.7 mg/dL Normal 8.5-10.1 [facility] Comment on above: Performed By: #### C MP, LIPID #### [facility] [address] [place] [address] Dr. Scooby Irvin Chloride [Moles/Vol] 102 mmol/L Normal 98-107 [facility] Comment on above: Performed By: #### C MP, LIPID #### [facility] [address] [place] [address] Dr. Scooby Irvin CO2 [Moles/Vol] 22.0 mmol/L Normal 21.0-32.0 [facility] Comment on above: Performed By: #### C MP, LIPID #### [facility] [address] [place] [address] Dr. Scooby Irvin Creatinine [Mass/Vol] 0.73 mg/dL Normal 0.55-1.02 [facility] Comment on above: Performed By: #### C MP, LIPID #### [facility] [address] [place] [address] Dr. Scooby Irvin EGFR-AF TURKMEN >60 Normal >=60 [facility] Comment on above: Performed By: #### C MP, LIPID #### [facility] [address] [place] [address] Dr. Scooby Irvin EGFR-NON AF TURKMEN >60 Normal >=60 [facility] Comment on above: Performed By: #### C MP, LIPID #### [facility] [address] [place] [address] Dr. Scooby Irvin Globulin (S) [Mass/Vol] 3.7 g/dL Normal [facility] Comment on above: Performed By: #### C MP, LIPID #### [facility] [address] [address] [address] Scooby Irvin Glucose [Mass/Vol] 105 mg/dL Normal 74-106 [facility] Comment on above: Performed By: #### C MP, LIPID #### [facility] [address] [place] [address] Dr. Scooby Irvin Potassium [Moles/Vol] 3.9 mmol/L Normal 3.5-5.1 [facility] Comment on above: Performed By: #### C MP, LIPID #### [facility] [address] [place] [address] Dr. Scooby Irvin Protein [Mass/Vol] 7.6 g/dL Normal 6.4-8.2 [facility] Comment on above: Performed By: #### C MP, LIPID #### [facility] [address] [place] [address] Dr. Scooby Irvin Sodium [Moles/Vol] 137 mmol/L Normal 136-145 [facility] Comment on above: Performed By: #### C MP, LIPID #### [facility] [address] [place] [address] Dr. Scooby Irvin Urea nitrogen [Mass/Vol] 11.0 mg/dL Normal 7.0-18.0 [facility] Comment on above: Performed By: #### C MP, LIPID #### [facility] [address] [place] [address] Dr. Scooby Irvin Urea nitrogen/Creatinine [Mass ratio] 15.1 mg/mg Normal [facility] Comment on above: Performed By: #### C MP, LIPID #### [facility] [address] [place] [address] Dr. Scooby Irvin TSHon 09-27-2021 TSH 2.198 uIU/mL Normal 0.358-3.74 0 [facility] Comment on above: Performed By: #### T SH #### [facility] [address] [place] [address] Dr. Scooby Irvin [facility] SARS-CoV-2 (COVID-19) RNA ADELITA+probe Ql (Unsp spec) Not detected Normal NOT DETECTED [facility] Comment on above: Result Comment: This test is not yet approved or cleared by the [place] FDA. When there are no FDA-approved or cleared tests available, and other criteria are met, FDA can make tests available under an emergency access mechanism called an Emergency Use Authorization (EUA). The EUA for this test is supported by the [employer] of Health and Human Service's (HHS's) declaration [...] SARS-CoV-2. Performed By: #### C BC #### [facility] [address] [address] [address] Scooby Irvin TSHon 06-22-2021 TSH 2.326 uIU/mL Normal 0.358-3.74 0 [facility] Comment on above: Performed By: #### C BC #### [facility] [address] [address] [address] Scooby Irvin TSH RANGE SEE BELOW Normal [facility] Comment on above: Result Comment: <0.3 4 UIU/ml HYPERTHYROID 0.34-5.60 UIU/ml EUTHYROID >5.60 UIU/ml HYPOTHYROID Performed By: #### C BC #### [facility] [address] [place], [place] [address] Dr. Scooby Irvin ABO/Rh Retypeon 05-31-2021 ABO/RH Recheck Result Positive Normal [facility] Comment on above: Result Comment: PERF ORMED BY: [facility] [place] [address] PATHOLOGIST AGRISCIENCE TEACHER TRICIA Yin 05-31-2021 L -------- -------- Specimen: Received: 05/31/21 Status: LIDIA Pineda Num: [id number] Spec Type: Surgical Subm Dr: Luis Gutierrez DO Tissues: A Parathyroid Gland (R/O PARATHYROID) B THYROID - Lobe (R SUBSTERNAL THYROID) Procedures: HE Stain/8, Gross/Micro L5, Gross/Micro L4 -------- Patient Age/Sex Location Account Attending Physician -------- Alexandra Cervantes 71/F [place] [id number] Luis Gutierrez DO -------- SPEC NUM: [id number] RECD: 05/31/21 STATUS: LIDIA PINEDA NUM: [id number] KATHY: 05/31/21- SUBM DR: Luis Gutierrez,DO ENTERED: 05/31/[address] [facility] [address]: SPEC TYPE: Surgical DEPT: S ORDERED: HE Stain/8, Gross/Micro L5, Gross/Micro L4 ORDERED: HE Stain/8, Gross/Micro L5, Gross/Micro L4 Pathological Diagnosis A. Soft tissue, rule out parathyroid , biopsy: - Benign parathyroid tissue - Concurs with the frozen section diagnosis B. Right substernal thyroid gland, excision: - Adenomatoid nodules - One hypercellular parathyroid gland - One benign lymph node (0/) Clinical Information Thyroid goiter Gross Description A. [...] Sectioning of the sutured nodule -------- Specimen: [id number] Received: 05/31/21 Status: LIDIA Pineda Num: [id number] Spec Type: Surgical Subm Dr: Luis Gutierrez DO Tissues: A Parathyroid Gland (R/O PARATHYROID) B THYROID - Lobe (R SUBSTERNAL THYROID) Procedures: HE Stain/8, Gross/Micro L5, Gross/Micro L4 -------- Patient: Alexandra Cervantes [id number] (Continued) -------- Specimen: Received: 05/31/21 (Continued) Gross Description (Continued) Signed (signature on file) Tricia Oshea MD 06/01/21 1913 -------- Specimen: Received: 05/31/21 Status: LIDIA Pineda Num: [id number] Spec Type: Surgical Subm Dr: Luis Gutierrez DO Tissues: A Parathyroid Gland (R/O PARATHYROID) B THYROID - Lobe (R SUBSTERNAL THYROID) Procedures: HE Stain/8, Gross/Micro L5, Gross/Micro L4 -------- Patient: Alexandra Cervantes [id number] (Continued) -------- Specimen: [id number] Received: 05/31/21 (Continued) Gross Description (Continued) demonstrates piedra-pink, gelatinous and lobulated cut surfaces. Sectioning of the presumed thyroid demonstrates red thyroid parenchyma with multiple nodules measuring up to 0.8 cm. Some nodules are present at the inked external surface. Entirely submitted in 7 cassettes as follows: B1-B3 - Sutured mediastinal mass B4-B7 - Thyroid gland, sequentially submitted (SM/MELLISSA) Intraoperative Diagnosis A. Soft tissue, rule out [...] microscopic findings support the above pathologic diagnosis. [id number], [id number], 9[address]21 -------- -------- Specimen: [id number] Received: (more content not included)... Normal [facility] LeukoReduced RBCon 2 LeukoReduced RBC READY Normal [facility] Type and Screenon 05-31-2021 ABO and Rh group Nom (Bld) Blood group O Rh(D) positive Normal [facility] Comment on above: Order Comment: Trans fuse now? N Result Comment: PERF ORMED BY: [place] [address] PATHOLOGIST AGRISCIENCE TEACHER TRICIA OSHEA M.D. Basic Metabolic Panelon 05-12 Calcium [Mass/Vol] 9.5 mg/dL Normal 8.2-10.2 [facility] Comment on above: Result Comment: PERF ORMED BY: [facility] [address] [place] [address] PATHOLOGIST AGRISCIENCE TEACHER TRICIA OSHEA M.D. Performed By: #### C BC, BMP #### [facility] [address] [place] [address] [place] Chloride [Moles/Vol] 105 mmol/L Normal 95-114 [facility] Comment on above: Performed By: #### C BC, BMP #### [facility] [address] [id number] [place] CO2 [Moles/Vol] 23.0 mmol/L Normal 22.0-30.0 [facility] Comment on above: Performed By: #### C BC, BMP #### [facility] [address] [id number] [place] Creatinine [Mass/Vol] 0.66 mg/dL Normal 0.44-1.03 [facility] Comment on above: Performed By: #### C BC, BMP #### [facility] [address] [id number] [place] Estimated GFR ( Traci > 60 Normal [facility] Comment on above: Result Comment: GFR estimated reference range: According to KDOQI guidelines, <60 ml/min/1.73m2 is sufficient to diagnose a patient with chronic kidney disease. Performed By: #### C BC, BMP #### [address] Estimated GFR (Non- Am > 60 Normal [facility] Comment on above: Performed By: #### C BC, BMP #### [facility] [address] Glucose [Mass/Vol] 89 mg/dL Normal 70-100 [facility] Comment on above: Result Comment: [facility] Glucose Reference Range is dependent on time and content of last meal. Glucose of more than 200 mg/dL in a nonstressed, ambulatory subject supports the diagnosis of Diabetes Mellitus. ADA recommended reference range Performed By: #### C KELSEY, BMP #### [address] Potassium [Moles/Vol] 4.0 mmol/L Normal 3.5-5.1 [facility] Comment on above: Performed By: #### C KELSEY, BMP #### [address] Sodium [Moles/Vol] 137 mmol/L Normal 136-146 [facility] Comment on above: Performed By: #### C KELSEY, BMP #### [address] Urea nitrogen [Mass/Vol] 10 mg/dL Normal 9-23 [facility] Comment on above: Performed By: #### C KELSEY, BMP #### [place] [address] [place] Basophils Auto (Bld) [#/Vol] Ordered By: Luis Gutierrez on 05-26-2021 Basophils (Bld) [#/Vol] 0.1 10*3/uL 0.0-0.2 [facility] Basophils/100 WBC Auto (Bld) Ordered By: Luis Gutierrez on 05-26-2021 Basophils/100 WBC (Bld) 0.9 % [facility] Blood hemoglobin measurement (mass/volume)Ordered By: Luis Gutierrez on 04-15-2022 Hemoglobin (Bld) [Mass/Vol] 12.4 g/dL 11.8-15.4 [facility] Blood leukocytes automated c ount (number/volume)Ordered By: Luis Gutierrez on 05-26-2021 WBC (Bld) [#/Vol] 8.8 10*3/uL 4.5-11.0 [facility] COVID-19 FRon 05-26-2021 SARS-CoV-2 (COVID-19) RNA ADELITA+probe Ql (Unsp spec) Negative Normal Negative [facility] Comment on above: Order Comment: Healt hcare Worker?: N Result Comment: Testing for SARS-CoV-2 by RT-PCR This test was developed and its performance characteristics determined by [employer] and validated at the [facility]. This test has not been FDA [...] is terminated or revoked sooner. PERFORMED BY: [place] [address] PATHOLOGIST AGRISCIENCE TEACHER TRICIA OSHEA M.D. Performed By: #### C OVID 19 [facility] #### [address] COVID-19 Positive/NegativeOr dered By: Luis Gutierrez on 05-26-2021 SARS-CoV-2 (COVID-19) N gene ADELITA+probe Ql (Resp) Negative Negative [facility] Comment on above: Testing for SARS-CoV -2 by RT-PCRThis test was developed and its performance characteristics determined by [employer] ([employer]) and validated at the [facility]. This test has not been FDA [...] 05-26-2021 Calcium [Mass/Vol] 9.4 mg/dL Normal 8.2-10.2 [facility] Comment on above: Performed By: #### C A, TSH3, PTH #### [address] Complete Blood Count Auto Di ffon 05-26-2021 Basophils (Bld) [#/Vol] 0.1 10*3/uL Normal 0.0-0.2 [facility] Comment on above: Result Comment: PERF ORMED BY: [place] [address] PATHOLOGIST AGRISCIENCE TEACHER TRICIA OSHEA M.D. Performed By: #### C BC, BMP #### [address] Basophils/100 WBC (Bld) 0.9 % Normal . [facility] Comment on above: Performed By: #### C BC, BMP #### [address] Eosinophils (Bld) [#/Vol] 0.0 10*3/uL Normal 0.0-0.45 [facility] Comment on above: Performed By: #### C BC, BMP #### [address] Eosinophils/100 WBC (Bld) 0.2 % Normal . [facility] Comment on above: Performed By: #### C BC, BMP #### [address] Erythrocyte distribution width (RBC) [Ratio] 16.1 % High 11.9-15.3 [facility] Comment on above: Performed By: #### C BC, BMP #### [address] Hematocrit (Bld) [Volume fraction] 37.5 % Normal 34.0-46.4 [facility] Comment on above: Performed By: #### C BC, BMP #### [address] Hemoglobin (Bld) [Mass/Vol] 12.4 g/dL Normal 11.8-15.4 [facility] Comment on above: Performed By: #### C BC, BMP #### [address] Lymphocytes (Bld) [#/Vol] 1.4 10*3/uL Normal 1.00-4.8 [facility] Comment on above: Performed By: #### C BC, BMP #### [address] Lymphocytes/100 WBC (Bld) 15.8 % Normal . [facility] Comment on above: Performed By: #### C BC, BMP #### [address] MCH (RBC) [Entitic mass] 29.2 pg Normal 24.7-34.3 [facility] Comment on above: Performed By: #### C BC, BMP #### [address] MCV (RBC) [Entitic vol] 88.3 fL Normal 80-100 [facility] Comment on above: Performed By: #### C BC, BMP #### [address] Mean Corpuscular HGB Conc 33.1 g/dL Normal 32.0-35.0 [facility] Comment on above: Performed By: #### C BC, BMP #### [address] Monocytes (Bld) [#/Vol] 0.7 10*3/uL Normal 0.0-0.8 [facility] Comment on above: Performed By: #### C BC, BMP #### [address] Monocytes/100 WBC (Bld) 7.7 % Normal . [facility] Comment on above: Performed By: #### C KELSEY, BMP #### [address] Neutrophils (Bld) [#/Vol] 6.7 10*3/uL Normal 1.8-7.7 [facility] Comment on above: Performed By: #### C KELSEY, BMP #### [address] Neutrophils/100 WBC (Bld) 75.4 % Normal . [facility] Comment on above: Performed By: #### C KELSEY, BMP #### [address] Nucleated RBC/100 WBC (Bld) [Ratio] 0.1 % Normal 0-0.5 [facility] Comment on above: Performed By: #### C KELSEY, BMP #### [address] Platelet mean volume (Bld) [Entitic vol] 8.6 fL Normal 6.3-10.7 [facility] Comment on above: Performed By: #### C BC, BMP #### [place] [address] [place] Platelets (Bld) [#/Vol] 241 10*3/uL Normal 150-450 [facility] Comment on above: Performed By: #### C BC, BMP #### [place] [address] [place] RBC (Bld) [#/Vol] 4.24 10*6/uL Normal 3.60-5.00 [facility] Comment on above: Performed By: #### C BC, BMP #### [facility] [address] WBC (Bld) [#/Vol] 8.8 10*3/uL Normal 4.5-11.0 [facility] Comment on above: Performed By: #### C BC, BMP #### [facility] [address] Creatinine and Glomerular fi ltration rate.predicted panel (S/P/Bld)Ordered By: Luis Gutierrez on 05-26-2021 Creatinine [Mass/Vol] 0.66 mg/dL 0.44-1.03 [facility] ECG 12 lead ECGon 05-26-2021 ECG 12 lead ECG [facility] [place] [address] [place] [address] Electrocardiograph Report Signed Patient: Alexandra Cervantes MR#: [id number] 2 : 1950 Acct:[id number] Age/Sex: 71 / F ADM Date: 05/26/21 Loc: Room: Type: [facility] Attending Dr: Luis Gutierrez DO Ordering [...] By Fredi Haines DO 05/27 0848 Normal [facility] Eosinophils Auto (Bld) [#/Vo l]Ordered By: Luis Gutierrez on 05-26-2021 Eosinophils (Bld) [#/Vol] 0.0 10*3/uL 0.0-0.45 [facility] Eosinophils/100 WBC Auto (Bl d)Ordered By: Luis Gutierrez on 05-26-2021 Eosinophils/100 WBC (Bld) 0.2 % [facility] Erythrocyte distribution wid th Auto (RBC) [Ratio]Ordered By: Luis Gutierrez on 05-26-2021 Erythrocyte distribution width (RBC) [Ratio] 16.1 % 11.9-15.3 [facility] Estimated glomerular filtrat ion rate (GFR) non- AmericanOrdered By: Luis Gutierrez on 05-26-2021 GFR/1.73 sq M.predicted among non-blacks MDRD (S/P/Bld) [Vol rate/Area] > 60 mL/Min [facility] Hematocrit Auto (Bld) [Volum e fraction]Ordered By: Luis Gutierrez on 05-26-2021 Hematocrit (Bld) [Volume fraction] 37.5 % 34.0-46.4 [facility] - Hematology and Cell countsOrdered By: Luis Gutierrez on 05-26-2021 Nucleated RBC/100 WBC (Bld) [Ratio] 0.1 % 0-0.5 [facility] Lymphocytes Auto (Bld) [#/Vo l]Ordered By: Luis Gutierrez on 05-26-2021 Lymphocytes (Bld) [#/Vol] 1.4 10*3/uL 1.00-4.8 [facility] Lymphocytes/100 WBC Auto (Bl d)Ordered By: Luis Gutierrez on 05-26-2021 Lymphocytes/100 WBC (Bld) 15.8 % [facility] MCH Auto (RBC) [Entitic mass ]Ordered By: Luis Gutierrez on 05-26-2021 MCH (RBC) [Entitic mass] 29.2 pg 24.7-34.3 [facility] MCHC Auto (RBC) [Mass/Vol]Or dered By: Luis Gutierrez on 05-26-2021 MCHC (RBC) [Mass/Vol] 33.1 g/dL 32.0-35.0 [facility] MCV Auto (RBC) [Entitic vol] Ordered By: Luis Gutierrez on 05-26-2021 MCV (RBC) [Entitic vol] 88.3 fL 80-100 [facility] Monocytes Auto (Bld) [#/Vol] Ordered By: Luis Gutierrez on 05-26-2021 Monocytes (Bld) [#/Vol] 0.7 10*3/uL 0.0-0.8 [facility] Monocytes/100 WBC Auto (Bld) Ordered By: Luis Gutierrez on 05-26-2021 Monocytes/100 WBC (Bld) 7.7 % [facility] Neutrophils Auto (Bld) [#/Vo l]Ordered By: Luis Gutierrez on 05-26-2021 Neutrophils (Bld) [#/Vol] 6.7 10*3/uL 1.8-7.7 [facility] Neutrophils/100 WBC Auto (Bl d)Ordered By: Luis Gutierrez on 05-26-2021 Neutrophils/100 WBC (Bld) 75.4 % [facility] No Panel InformationOrdered By: Luis Gutierrez on 05-26-2021 Estimated GFR () > 60 mL/Min [facility] Comment on above: GFR estimated refere nce range: According to KDOQI guidelines, <60 ml/min/1.73m2 is sufficient to diagnose a patient with chronic kidney disease. Pharmacy Creatinine Clearance (Chem N/A [facility] Parathyroid Hormone [place] 05-26-2021 Parathyroid Hormone Intact 31.2 pg/mL Normal 12-88 [facility] Comment on above: Result Comment: PERF ORMED BY: [place] [address] PATHOLOGIST AGRISCIENCE TEACHER TRICIA OSHEA M.D. Performed By: #### C BC, BMP #### [address] Platelet mean volume Auto (B ld) [Entitic vol]Ordered By: Luis Gutierrez on 05-26-2021 Platelet mean volume (Bld) [Entitic vol] 8.6 fL 6.3-10.7 [facility] Platelets Auto (Bld) [#/Vol] Ordered By: Luis Gutierrez on 05-26-2021 Platelets (Bld) [#/Vol] 241 10*3/uL 150-450 [facility] RBC Auto (Bld) [#/Vol]Ordere d By: Luis Gutierrez on 05-26-2021 RBC (Bld) [#/Vol] 4.24 10*6/uL 3.60-5.00 [facility] Serum or plasma calcium joseph urement (mass/volume)Ordered By: Luis Gutierrez on 05-26-2021 Calcium [Mass/Vol] 9.4 mg/dL 8.2-10.2 [facility] Serum or plasma chloride liv surement (moles/volume)Ordered By: Luis Gutierrez on 05-26-2021 Chloride [Moles/Vol] 105 mmol/L 95-114 [facility] Serum or plasma glucose joseph urement (mass/volume)Ordered By: Luis Gutierrez on 05-26-2021 Glucose [Mass/Vol] 89 mg/dL 70-100 [facility] Comment on above: ADA recommended refe rence rangeRandom Glucose Reference Range is dependent on time and content of last meal. Glucose of more than 200 mg/dL in a nonstressed, ambulatory subject supports the diagnosis of Diabetes Mellitus. Serum or plasma intact parat hyroid hormone measurement (mass/volume)Ordered By: Luis Gutierrez on 05-26-2021 Parathyrin.intact [Mass/Vol] 31.2 pg/mL 12-88 [facility] Serum or plasma potassium me asurement (moles/volume)Ordered By: Luis Gutierrez on 05-26-2021 Potassium [Moles/Vol] 4.0 mmol/L 3.5-5.1 [facility] Serum or plasma sodium measu rement (moles/volume)Ordered By: Luis Gutierrez on 05-26-2021 Sodium [Moles/Vol] 137 mmol/L 136-146 [facility] Serum or plasma total carbon dioxide measurement (moles/volume)Ordered By: Luis Gutierrez on 05-26-2021 CO2 [Moles/Vol] 23.0 mmol/L 22.0-30.0 [facility] Serum or plasma urea nitroge n measurement (mass/volume)Ordered By: Luis Gutierrez on 05-26-2021 Urea nitrogen [Mass/Vol] 10 mg/dL 9- [facility] TSH DL <= 0.005 mIU/L QnOrde red By: Luis Gutierrez on 05-26-2021 TSH Qn 0.86 m[IU]/L 0.45-5.33 [facility] Thyroid Stimulating Hormoneo n 05-26-2021 TSH Qn 0.86 m[IU]/L Normal 0.45-5.33 [facility] Comment on above: Performed By: #### C A, TSH3, PTH #### [facility] [address] MG MAMM SCREEN 3D GEORGES CADon 05-22-2021 MG MAMM SCREEN 3D GEORGES CAD Patient: ALEXANDRA CERVANTES Exam Date: 05/22/2021 : 1950 Gender:F Ordering : DR LAURITA MORALES M.D. Admission #: [id number] Family : Order #: [id number] CLICK HERE TO VIEW EXAM RADIOLOGY REPORT [...] Treatments None Family Cancers None LOCATION: [facility] BREAST COMPOSITION: Scattered areas fibroglandular [...] MD on 05/22/2021 at 12:06 Normal [facility] CT Chest w/Contraston 2021 CT Chest w/Contrast Please see CT neck r eport dated: 05/17/2021. Report reported and signed by Fuentes Lion on 05/22/2021 1528 Normal [facility] CT Soft Tissue Neck w/ Contr [...] by Fuentes Lion on 05/22/2021 1528 Normal [facility] Specialist [place] esophaguson 05-04-2021 [place] esophagus [facility] [address] [place] [id number] Fluoroscopy Report Signed Patient: Alexandra Cervantes MR#: [id number] 2 : 1950 Acct:[id number] Age/Sex: 71 / F ADM Date: 05/04/21 Loc: XD Room: Type: [facility] Attending Dr: Cy Sears MD Ordering Provider: [...] Kitchen Jr., M.D.05/04/2021 3:37 PM Dictation Location: [place] [address] Transcribed By: [facility] 05/04/211536 Dictated By: Selvin Kitchen Jr, MD 05/04/211531 Signed By: 05/04/211536 [facility] CBC AUTO DIFFon 04-20-2021 BASO # 0.1 103/ul Normal 0.0-0.1 [facility] Comment on above: Performed By: #### C BC #### [facility] [address] [place] [address] [address] Scooby Irvin Basophils/100 WBC (Bld) 0.4 % Normal 0.2-2.0 [facility] Comment on above: Performed By: #### C BC #### [facility] [address] [place] [address] [address] Scooby Irvin EO # 0.0 103/ul Normal 0.0-0.7 [facility] Comment on above: Performed By: #### C BC #### [facility] [address] [place] [address] Dr. Scooby Irvin Eosinophils/100 WBC (Bld) 0.2 % Critically low 0.9-7.0 [facility] Comment on above: Performed By: #### C BC #### [facility] [address] [place] [address] Dr. Scooby Irvin Erythrocyte distribution width (RBC) [Ratio] 16.7 % Critically high 11.0-15.0 [facility] Comment on above: Performed By: #### C BC #### [facility] [address] [place] [address] Dr. Scooby Irvin Hematocrit (Bld) [Volume fraction] 37.6 % Normal 36.0-48.0 [facility] Comment on above: Performed By: #### C BC #### [facility] [address] [place] [address] Dr. Scooby Irvin Hemoglobin (Bld) [Mass/Vol] 12.0 g/dL Normal 12.0-16.0 [facility] Comment on above: Performed By: #### C BC #### [facility] [address] [place] [address] Dr. Scooby Irvin IG # 0.02 10e3/ul Normal 0.00-0.03 [facility] Comment on above: Performed By: #### C BC #### [facility] [address] [place] [address] Dr. Scooby Irvin IG % 0.2 % Normal 0.0-0.5 [facility] Comment on above: Performed By: #### C BC #### [facility] [address] [place] [address] Dr. Scooby Irvin LYMPH # 1.6 103/ul Normal 1.2-3.8 [facility] Comment on above: Performed By: #### C BC #### [facility] [address] [place] [address] Dr. Scooby Irvin Lymphocytes/100 WBC (Bld) 13.6 % Critically low 20.5-60.0 [facility] Comment on above: Performed By: #### C BC #### [facility] [address] [place] [address] Dr. Scooby Irvin MANUAL DIFF REQ NO Normal [facility] Comment on above: Performed By: #### C BC #### [facility] [address] [place] [address] Dr. Scooby Irvin MCH (RBC) [Entitic mass] 28.6 pg Normal 26.7-34.0 [facility] Comment on above: Performed By: #### C BC #### [facility] [address] [place] [address] Dr. Scooby Irvin MCHC (RBC) [Mass/Vol] 31.9 g/dL Normal 29.9-35.2 [facility] Comment on above: Performed By: #### C BC #### [facility] [address] [place] [address] Dr. Scooby Irvin MCV (RBC) [Entitic vol] 89.5 fL Normal 81.0-99.0 [facility] Comment on above: Performed By: #### C BC #### [facility] [address] [place] [address] Dr. Scooby Irvin MONO # 0.7 103/ul Normal 0.3-0.8 [facility] Comment on above: Performed By: #### C BC #### [facility] [address] [place] [address] Dr. Scooby Irvin Monocytes/100 WBC (Bld) 5.8 % Normal 1.7-12.0 [facility] Comment on above: Performed By: #### C BC #### [facility] [address] [place] [address] Dr. Scooby Irvin NEUT # 9.1 103/ul Critically high 1.4-6.5 [facility] Comment on above: Performed By: #### C BC #### [facility] [address] [place] [address] Dr. Scooby Irvin Neutrophils/100 WBC (Bld) 79.8 % Critically high 43.0-75.0 [facility] Comment on above: Performed By: #### C BC #### [facility] [address] [place] [address] Dr. Scooby Irvin Platelet mean volume (Bld) [Entitic vol] 10.2 fL Normal 9.5-13.5 [facility] Comment on above: Performed By: #### C BC #### [facility] [address] [place] [address] Dr. Scooby Irvin PLT 217 103/ul Normal 150-450 [facility] Comment on above: Performed By: #### C BC #### [facility] [address] [place] [address] Dr. Scooby Irvin RBC 4.20 106/ul Normal 4.20-5.40 [facility] Comment on above: Performed By: #### C BC #### [facility] [address] [place] [address] Dr. Scooby Irvin WBC 11.4 103/ul Critically high 4.0-11.0 [facility] Comment on above: Performed By: #### C BC #### [facility] [address] [place] [address] Dr. Scooby Irvin PROF 14(COMP METB)on 022 Albumin [Mass/Vol] 3.9 g/dL Normal 3.5-5.0 [facility] Comment on above: Performed By: #### C MP #### [facility] [address] [place] [address] Dr. Scooby Irvin Albumin/Globulin [Mass ratio] 1.1 {ratio} Normal [facility] Comment on above: Performed By: #### C MP #### [facility] [address] [place] [address] Dr. Scooby Irvin ALP [Catalytic activity/Vol] 72 U/L Normal 38-126 [facility] Comment on above: Performed By: #### C MP #### [facility] [address] [place] [address] Dr. Scooby Irvin ALT [Catalytic activity/Vol] 23 U/L Normal 9-52 [facility] Comment on above: Performed By: #### C MP #### [facility] [address] [place] [address] Dr. Scooby Irvin Anion gap [Moles/Vol] 10.2 mmol/L Normal [facility] Comment on above: Performed By: #### C MP #### [facility] [address] [place] [address] Dr. Scooby Irvin AST [Catalytic activity/Vol] 20 U/L Normal 14-36 [facility] Comment on above: Performed By: #### C MP #### [facility] [address] [place] [address] Dr. Scooby Irvin Bilirubin [Mass/Vol] 0.5 mg/dL Normal 0.2-1.3 [facility] Comment on above: Performed By: #### C MP #### [facility] [address] [place] [address] Dr. Scooby Irvin Calcium [Mass/Vol] 8.8 mg/dL Normal 8.4-10.2 [facility] Comment on above: Performed By: #### C MP #### [facility] [address] [place] [address] Dr. Scooby Irvin Chloride [Moles/Vol] 104 mmol/L Normal 98-107 [facility] Comment on above: Performed By: #### C MP #### [facility] [address] [place] [address] Dr. Scooby Irvin CO2 [Moles/Vol] 28.0 mmol/L Normal 22.0-30.0 [facility] Comment on above: Performed By: #### C MP #### [facility] [address] [place] [address] Dr. Scooby Irvin Creatinine [Mass/Vol] 0.87 mg/dL Normal 0.52-1.04 [facility] Comment on above: Performed By: #### C MP #### [facility] [address] [place] [address] Dr. Scooby Irvin EGFR-AF TURKMEN >60 Normal >=60 [facility] Comment on above: Performed By: #### C MP #### [facility] [address] [place] [address] Dr. Scooby Irvin EGFR-NON AF TURKMEN >60 Normal >=60 [facility] Comment on above: Performed By: #### C MP #### [facility] [address] [place] [address] [address] Scooby Irvin Globulin (S) [Mass/Vol] 3.5 g/dL Normal [facility] Comment on above: Performed By: #### C MP #### [facility] [address] [place] [address] [address] Scooby Irvin Glucose [Mass/Vol] 93 mg/dL Normal 74-106 [facility] Comment on above: Performed By: #### C MP #### [facility] [address] [place] [address] [address] Scooby Irvin Potassium [Moles/Vol] 4.2 mmol/L Normal 3.4-5.0 [facility] Comment on above: Performed By: #### C MP #### [facility] [address] [place] [address] Dr. Scooby Irvin Protein [Mass/Vol] 7.4 g/dL Normal 6.1-8.2 [facility] Comment on above: Performed By: #### C MP #### [facility] [address] [place] [address] [address] Scooby Irvin Sodium [Moles/Vol] 138 mmol/L Normal 137-145 [facility] Comment on above: Performed By: #### C MP #### [facility] [address] [place] [address] Dr. Scooby Irvin Urea nitrogen [Mass/Vol] 15.0 mg/dL Normal 7.0-17.0 [facility] Comment on above: Performed By: #### C MP #### [facility] [address] [place] [address] [address] Scooby Irvin Urea nitrogen/Creatinine [Mass ratio] 17.2 mg/mg Normal [facility] Comment on above: Performed By: #### C MP #### [facility] [address] [place] [address] [address] Scooby Irvin PET CT SKULL BASE [...] by: FUENTES BARRETO Date: 2021-04-07 08:23 Normal [facility] CT LUNG CANCER SCREENINGon 0 [...] FUENTES BARRETO Date: 2021-03-23 09:57 Normal [facility] CBC AUTO DIFFon 03-09-2021 BASO # 0.1 103/ul Normal 0.0-0.1 [facility] Comment on above: Performed By: #### C BC #### [facility] [address] [place] [address] [address] Scooby Irvin Basophils/100 WBC (Bld) 1.2 % Normal 0.2-2.0 [facility] Comment on above: Performed By: #### C BC #### [facility] [address] [place] [address] [address] Scooby Irvin EO # 0.1 103/ul Normal 0.0-0.7 [facility] Comment on above: Performed By: #### C BC #### [facility] [address] [place] [address] [address] Scooby Irvin Eosinophils/100 WBC (Bld) 1.4 % Normal 0.9-7.0 [facility] Comment on above: Performed By: #### C BC #### [facility] [address] [place] [address] [address] Scooby Irvin Erythrocyte distribution width (RBC) [Ratio] 16.3 % Critically high 11.0-15.0 [facility] Comment on above: Performed By: #### C BC #### [facility] [address] [place] [address] Dr. Scooby Irvin Hematocrit (Bld) [Volume fraction] 39.6 % Normal 36.0-48.0 [facility] Comment on above: Performed By: #### C BC #### [facility] [address] [place] [address] Dr. Scooby Irvin Hemoglobin (Bld) [Mass/Vol] 12.6 g/dL Normal 12.0-16.0 [facility] Comment on above: Performed By: #### C BC #### [facility] [address] [place] [address] Dr. Scooby Irvin IG # 0.01 10e3/ul Normal 0.00-0.03 [facility] Comment on above: Performed By: #### C BC #### [facility] [address] [place] [address] Dr. Scooby Irvin IG % 0.2 % Normal 0.0-0.5 [facility] Comment on above: Performed By: #### C BC #### [facility] [address] [place] [address] Dr. Scooby Irvin LYMPH # 1.6 103/ul Normal 1.2-3.8 [facility] Comment on above: Performed By: #### C BC #### [facility] [address] [place] [address] Dr. Scooby Irvin Lymphocytes/100 WBC (Bld) 30.7 % Normal 20.5-60.0 [facility] Comment on above: Performed By: #### C BC #### [facility] [address] [place] [address] Dr. Scooby Irvin MANUAL DIFF REQ NO Normal [facility] Comment on above: Performed By: #### C BC #### [facility] [address] [place] [address] Dr. Scooby Irvin MCH (RBC) [Entitic mass] 28.4 pg Normal 26.7-34.0 [facility] Comment on above: Performed By: #### C BC #### [facility] [address] [place] [address] Dr. Scooby Irvin MCHC (RBC) [Mass/Vol] 31.8 g/dL Normal 29.9-35.2 [facility] Comment on above: Performed By: #### C BC #### [facility] [address] [address] [address] Scooby Irvin MCV (RBC) [Entitic vol] 89.2 fL Normal 81.0-99.0 [facility] Comment on above: Performed By: #### C BC #### [facility] [address] [address] [address] Scooby Irvin MONO # 0.6 103/ul Normal 0.3-0.8 [facility] Comment on above: Performed By: #### C BC #### [facility] [address] [address] [address] Scooby Irvin Monocytes/100 WBC (Bld) 11.5 % Normal 1.7-12.0 [facility] Comment on above: Performed By: #### C BC #### [facility] [address] [place] [address] Dr. Scooby Irvin NEUT # 2.8 103/ul Normal 1.4-6.5 [facility] Comment on above: Performed By: #### C BC #### [facility] [address] [place] [address] Dr. Scooby Irvin Neutrophils/100 WBC (Bld) 55.0 % Normal 43.0-75.0 [facility] Comment on above: Performed By: #### C BC #### [facility] [address] [place] [address] Dr. Scooby Irvin Platelet mean volume (Bld) [Entitic vol] 10.3 fL Normal 9.5-13.5 [facility] Comment on above: Performed By: #### C BC #### [facility] [address] [place] [address] Dr. Scooby Irvin PLT 208 103/ul Normal 150-450 [facility] Comment on above: Performed By: #### C BC #### [facility] [address] [place] [address] Dr. Scooby Irvin RBC 4.44 106/ul Normal 4.20-5.40 [facility] Comment on above: Performed By: #### C BC #### [facility] [address] [address] [address] Scooby Irvin WBC 5.1 103/ul Normal 4.0-11.0 [facility] Comment on above: Performed By: #### C BC #### [facility] [address] [place] [address] Dr. Scooby Irvin FREE T4on 03-09-2021 Free T4 [Mass/Vol] 1.15 ng/dL Normal 0.78-2.19 [facility] Comment on above: Performed By: #### C BC #### [facility] [address] [place] [address] Dr. Scooby Irvin LIPID PROFILEon 03-09-2021 CHOL-HDL RATIO NORM SEE BELOW Normal [facility] Comment on above: Result Comment: 3.3 - 4.4 LOW RISK 4.4 - 7.1 AVERAGE RISK 7.1 - 11.0 MODERATE RISK >11.0 HIGH RISK Performed By: #### L IPID, CMP, TSH #### [facility] [address] [place] [address] Dr. Scooby Irvin Cholesterol [Mass/Vol] 227 mg/dL Critically high <=200 [facility] Comment on above: Performed By: #### L IPID, CMP, TSH #### [facility] [address] [place] [address] Dr. Scooby Irvin Cholesterol in HDL [Mass/Vol] 65 mg/dL Normal [facility] Comment on above: Performed By: #### L IPID, CMP, TSH #### [facility] [address] [place] [address] Dr. Scooby Irvin Cholesterol in LDL [Mass/Vol] 142.6 mg/dL Normal [facility] Comment on above: Performed By: #### L IPID, CMP, TSH #### [facility] [address] [place] [address] Dr. Scooby Irvin Cholesterol.total/Ch olesterol in HDL [Mass ratio] 3.5 {ratio} Normal [facility] Comment on above: Performed By: #### L IPID, CMP, TSH #### [facility] [address] [place] [address] Dr. Scooby Irvin HDL NORMAL > or = 60 mg/dl - LO W CARDIOVASCULAR RISK <40 mg/dl - HIGH CARDIOVASCULAR RISK Normal [facility] Comment on above: Performed By: #### L IPID, CMP, TSH #### [facility] [address] [address] [address] Scooby Irvin LDL CALC NORMAL SEE BELOW Normal [facility] Comment on above: Result Comment: <100 mg/dl OPTIMAL 100 - 129 mg/dl NEAR OR ABOVE OPTIMAL 130 - 159 mg/dl BORDERLINE HIGH 160 - 189 mg/dl HIGH >190 mg/dl VERY HIGH Performed By: #### L IPID, CMP, TSH #### [facility] [address] [address] [address] Scooby Irvin Triglyceride [Mass/Vol] 97 mg/dL Normal <=150 [facility] Comment on above: Performed By: #### L IPID, CMP, TSH #### [facility] [address] [place] [address] Dr. Scooby Irvin VLDL CALC 19.4 mg/dL Normal [facility] Comment on above: Performed By: #### L IPID, CMP, TSH #### [facility] [address] [place] [address] Dr. Scooby Irvin PROF 14(COMP METB)on 022 Albumin [Mass/Vol] 4.0 g/dL Normal 3.5-5.0 [facility] Comment on above: Performed By: #### L IPID, CMP, TSH #### [facility] [address] [place] [address] Dr. Scooby Irvin Albumin/Globulin [Mass ratio] 1.1 {ratio} Normal [facility] Comment on above: Performed By: #### L IPID, CMP, TSH #### [facility] [address] [place] [address] Dr. Scooby Irvin ALP [Catalytic activity/Vol] 80 U/L Normal 38-126 [facility] Comment on above: Performed By: #### L IPID, CMP, TSH #### [facility] [address] [place] [address] Dr. Scooby Irvin ALT [Catalytic activity/Vol] 35 U/L Normal 9-52 [facility] Comment on above: Performed By: #### L IPID, CMP, TSH #### [facility] [address] [place] [address] Dr. Scooby Irvin Anion gap [Moles/Vol] 11.8 mmol/L Normal [facility] Comment on above: Performed By: #### L IPID, CMP, TSH #### [facility] [address] [place] [address] Dr. Scooby Irvin AST [Catalytic activity/Vol] 24 U/L Normal 14-36 [facility] Comment on above: Performed By: #### L IPID, CMP, TSH #### [facility] [address] [place] [address] Dr. Scooby Irvin Bilirubin [Mass/Vol] 0.5 mg/dL Normal 0.2-1.3 [facility] Comment on above: Performed By: #### L IPID, CMP, TSH #### [facility] [address] [place] [address] Dr. Scooby Irvin Calcium [Mass/Vol] 9.3 mg/dL Normal 8.4-10.2 [facility] Comment on above: Performed By: #### L IPID, CMP, TSH #### [facility] [address] [place] [address] Dr. Scooby Irvin Chloride [Moles/Vol] 105 mmol/L Normal 98-107 [facility] Comment on above: Performed By: #### L IPID, CMP, TSH #### [facility] [address] [place] [address] Dr. Scooby Irvin CO2 [Moles/Vol] 26.2 mmol/L Normal 22.0-30.0 [facility] Comment on above: Performed By: #### L IPID, CMP, TSH #### [facility] [address] [place] [address] Dr. Scooby Irvin Creatinine [Mass/Vol] 0.83 mg/dL Normal 0.52-1.04 [facility] Comment on above: Performed By: #### L IPID, CMP, TSH #### [facility] [address] [address] [address] Scooby Irvin EGFR-AF TURKMEN >60 Normal >=60 [facility] Comment on above: Performed By: #### L IPID, CMP, TSH #### [facility] [address] [address] [address] Scooby Irvin EGFR-NON AF TURKMEN >60 Normal >=60 [facility] Comment on above: Performed By: #### L IPID, CMP, TSH #### [facility] [address] [address] [address] Scooby Irvin Globulin (S) [Mass/Vol] 3.8 g/dL Normal [facility] Comment on above: Performed By: #### L IPID, CMP, TSH #### [facility] [address] [address] [address] Scooby Irvin Glucose [Mass/Vol] 112 mg/dL Critically high 74-106 [facility] Comment on above: Performed By: #### L IPID, CMP, TSH #### [facility] [address] [address] [address] Scooby Irvin Potassium [Moles/Vol] 4.0 mmol/L Normal 3.4-5.0 [facility] Comment on above: Performed By: #### L IPID, CMP, TSH #### [facility] [address] [address] [address] Scooby Irvin Protein [Mass/Vol] 7.8 g/dL Normal 6.1-8.2 [facility] Comment on above: Performed By: #### L IPID, CMP, TSH #### [facility] [address] [address] [address] Scooby Irvin Sodium [Moles/Vol] 139 mmol/L Normal 137-145 [facility] Comment on above: Performed By: #### L IPID, CMP, TSH #### [facility] [address] [address] [address] Scooby Irvin Urea nitrogen [Mass/Vol] 15.0 mg/dL Normal 7.0-17.0 [facility] Comment on above: Performed By: #### L IPID, CMP, TSH #### [facility] [address] [place], [place] [address] Dr. Scooby Irvin Urea nitrogen/Creatinine [Mass ratio] 18.1 mg/mg Normal [facility] Comment on above: Performed By: #### L IPID, CMP, TSH #### [facility] [address] [place], [place] [address] Dr. Scooby Irvin TSHon 03-09-2021 TSH 2.761 uIU/mL Normal 0.470-4.68 0 [facility] Comment on above: Performed By: #### L IPID, CMP, TSH #### [facility] [address] [address] [address] Scooby Irvin TSH RANGE SEE BELOW Normal [facility] Comment on above: Result Comment: <0.3 4 UIU/ml HYPERTHYROID 0.34-5.60 UIU/ml EUTHYROID >5.60 UIU/ml HYPOTHYROID Performed By: #### L IPID, CMP, TSH #### [facility] [address] [place], [place] [address] Dr. Scooby Irvin Vital Signs Date Time Vital Sign Value Performing Clinician Facility 03-20-2024 10:54-0500 Blood Pressure Location [facility] [facility] 03-20-2024 10:54-0500 Diastolic blood pressure 74 mm[Hg] Salazar Sarmini [facility] 03-20-2024 10:54-0500 Heart rate 71 /min Salazar Sarmini [facility] 03-20-2024 10:54-0500 Systolic blood pressure 129 mm[Hg] Salazar Sarmini [facility] 01-30-2024 13:46-0500 Diastolic blood pressure 82 mm[Hg] Salazar Sarmini [facility] 01-30-2024 13:46-0500 Mean blood pressure 104 mm[Hg] Salazar Sarmini [facility] 01-30-2024 13:46-0500 Systolic blood pressure 148 mm[Hg] Salazar Sarmini [facility] 01-30-2024 13:41-0500 Blood Pressure Location Salazar Sarmini [facility] 01-30-2024 13:41-0500 Diastolic blood pressure 85 mm[Hg] Salazar Sarmini [facility] 01-30-2024 13:41-0500 Heart rate 80 /min Salazar Sarmini [facility] 01-30-2024 13:41-0500 Systolic blood pressure 157 mm[Hg] Salazar Sarmini [facility] 01-15-2024 13:25-0500 Diastolic blood pressure 86 mm[Hg] Salazar Sarmini [facility] 01-15-2024 13:25-0500 Heart rate 79 /min Salazar Sarmini [facility] 01-15-2024 13:25-0500 Mean blood pressure 108 mm[Hg] Salazar Sarmini [facility] 01-15-2024 13:25-0500 Respiratory rate 17 /min Salazar Sarmini [facility] 01-15-2024 13:25-0500 SaO2% (BldA) [Mass fraction] 96 % Saalzar Sarmini [facility] 01-15-2024 13:25-0500 Systolic blood pressure 153 mm[Hg] Salazar Sarmini [facility] 01-15-2024 13:15-0500 Diastolic blood pressure 81 mm[Hg] Salazar Sarmini [facility] 01-15-2024 13:15-0500 Heart rate 79 /min Salazar Sarmini [facility] 01-15-2024 13:15-0500 Mean blood pressure 103 mm[Hg] Salazar Sarmini [facility] 01-15-2024 13:15-0500 Respiratory rate 17 /min Salazar Sarmini [facility] 01-15-2024 13:15-0500 SaO2% (BldA) [Mass fraction] 96 % Salazar Sarmini [facility] 01-15-2024 13:15-0500 Systolic blood pressure 148 mm[Hg] Salazar Sarmini [facility] 01-15-2024 13:00-0500 Diastolic blood pressure 70 mm[Hg] Salazar Sarmini [facility] 01-15-2024 13:00-0500 Heart rate 72 /min Salazar Sarmini [facility] 01-15-2024 13:00-0500 Mean blood pressure 93 mm[Hg] Salazar Sarmini [facility] 01-15-2024 13:00-0500 SaO2% (BldA) [Mass fraction] 97 % Salazar Sarmini [facility] 01-15-2024 13:00-0500 Systolic blood pressure 140 mm[Hg] Salazar Sarmini [facility] 01-15-2024 12:50-0500 Body temperature 98.24 [degF] Salazar Sarmini [facility] 01-15-2024 12:44-0500 Respiratory rate 18 /min Salazar Sarmini [facility] 01-15-2024 12:40-0500 Respiratory rate 19 /min Salazar Sarmini [facility] 01-15-2024 12:35-0500 Respiratory rate 19 /min Salazar Sarmini [facility] 01-15-2024 10:59-0500 Blood Pressure Location Salazar Sarmini [facility] 01-15-2024 10:59-0500 Body temperature 98.24 [degF] Salazar Sarmini [facility] 12-04-2023 08:58-0400 Blood Pressure Location Salazar Sarmini [facility] 12-04-2023 08:58-0400 Diastolic blood pressure 84 mm[Hg] Salazar Sarmini [facility] 12-04-2023 08:58-0400 Heart rate 84 /min Salazar Sarmini [facility] 12-04-2023 08:58-0400 Respiratory rate 16 /min Salazar Sarmini [facility] 12-04-2023 08:58-0400 Systolic blood pressure 156 mm[Hg] Salazar Sarmini [facility] 12-04-2023 08:49-0400 Blood Pressure Location Salazar Sarmini [facility] 12-04-2023 08:49-0400 Respiratory rate 16 /min Martin Tatum [facility] 09-04-2022 09:00-0400 Body height 140.97 cm Luarita Morales Other [employer] Other 09-04-2022 09:00-0400 Body mass index (BMI) [Ratio] 36.74 kg/m2 Laurita Morales Other [employer] Other 09-04-2022 09:00-0400 Body weight 73.03 kg Laurita Morales Other [employer] Other 09-04-2022 09:00-0400 Diastolic blood pressure 78 mm[Hg] Laurita Morales Other [employer] Other 09-04-2022 09:00-0400 SaO2% (BldA) [Mass fraction] 97 % Laurita Morales Other [employer] Other 09-04-2022 09:00-0400 Systolic blood pressure 132 mm[Hg] Laurita Morales Other [employer] Other 03-01-2022 10:30-0500 Body height 140.97 cm Laurita Morales Other [employer] Other 03-01-2022 10:30-0500 Body mass index (BMI) [Ratio] 36.06 kg/m2 Laurita Morales Other [employer] Other 03-01-2022 10:30-0500 Body weight 71.67 kg Laurita Morales Other [employer] Other 03-01-2022 10:30-0500 Diastolic blood pressure 84 mm[Hg] Laurita Morales Other [employer] Other 03-01-2022 10:30-0500 SaO2% (BldA) [Mass fraction] 98 % Laurita Morales Other [employer] Other 03-01-2022 10:30-0500 Systolic blood pressure 132 mm[Hg] Laurita Morales Other [employer] Other 11-08-2021 10:17-0400 Diastolic blood pressure 74 mm[Hg] Farooq SALAM [facility] 11-08-2021 10:17-0400 Mean blood pressure 99 mm[Hg] Farooq SALAM [facility] 11-08-2021 10:17-0400 Systolic blood pressure 148 mm[Hg] Farooq SALAM [facility] 11-08-2021 10:15-0400 Blood Pressure Location Farooq SALAM [facility] 11-08-2021 10:15-0400 Diastolic blood pressure 95 mm[Hg] Farooq SALAM [facility] 11-08-2021 10:15-0400 Heart rate 78 /min Farooq SALAM [facility] 11-08-2021 10:15-0400 Respiratory rate 16 /min Farooq SALAM [facility] 11-08-2021 10:15-0400 Systolic blood pressure 159 mm[Hg] Farooq SALAM [facility] 05-10-2021 11:11-0400 Diastolic blood pressure 90 mm[Hg] Farooq SALAM [facility] 05-10-2021 11:11-0400 Systolic blood pressure 180 mm[Hg] Capri FULLER [facility] Encounters Encounter Date Encounter Type Care Provider Facility Start: 03-20-2024 End: 03-20-2024 ambulatory Martin Felicianoal Levymini Facility:[facility] Start: 03-20-2024 End: 03-20-2024 Patient encounter procedure Martin Felicianoal Coltoni [facility] Start: 03-18-2024 End: 03-18-2024 Office outpatient visit 15 minutes Jr. Larissa Guerrero DO Work Phone: [facility] Comment on above: Left knee pain, unsp ecified chronicity (Primary Dx); Internal derangement of left knee; Arthritis of left knee Start: 03-18-2024 End: 03-18-2024 ambulatory LARISSA CABRERA Not Available Start: 03-02-2024 End: 03-02-2024 Telephone encounter Adali Giordano NP Work Phone: [facility] Comment on above: MRI Start: 02-17-2024 End: 02-17-2024 Bamboo flowsheet Adali Giordano RN DISCHARGE Work Phone: [facility] Start: 02-17-2024 End: 02-17-2024 Bamboo flowsheet Adali Giordano RN DISCHARGE Work Phone: [facility] Start: 02-17-2024 End: 02-17-2024 Office outpatient visit 15 minutes Adali Giordano RN DISCHARGE Work Phone: [facility] Comment on above: S/P left knee arthro scopy (Primary Dx); Left knee pain, unspecified chronicity; Arthritis of left knee; Internal derangement of left knee Start: 02-17-2024 End: 02-17-2024 ambulatory ADALI Pompa APLING Not Available Start: 01-30-2024 End: 01-30-2024 ambulatory Salazar Talal Coltoni Facility:[facility] Start: 01-30-2024 End: 01-30-2024 Patient encounter procedure Martin Tatum [facility] Start: 01-20-2024 End: 01-20-2024 Bamboo flowsheet Adali Peña Apling RN DISCHARGE Work Phone: [facility] Start: 01-20-2024 End: 01-20-2024 Bamboo flowsheet Adali Peña Apling RN DISCHARGE Work Phone: [facility] Start: 01-20-2024 End: 01-20-2024 Office outpatient visit 25 minutes Adali Giordano RN DISCHARGE Work Phone: [facility] Comment on above: S/P left knee arthro scopy (Primary Dx); Left knee pain, unspecified chronicity; Arthritis of left knee Start: 01-20-2024 End: 01-20-2024 ambulatory ADALI B APLING Not Available Start: 01-15-2024 End: 01-15-2024 Patient encounter procedure Martin Tatum [facility] Start: 12-31-2023 End: 12-31-2023 Bamboo flowsheet Abhi Ramires RN DISCHARGE Work Phone: [facility] Start: 12-31-2023 End: 12-31-2023 Bamboo flowsheet Abhi Ramires RN DISCHARGE Work Phone: [facility] Start: 12-31-2023 End: 12-31-2023 Postop follow up visit related to original px Abhi Ramires NP Work Phone: [facility] Comment on above: S/P left knee arthro scopy (Primary Dx); Left knee pain, unspecified chronicity Start: 12-31-2023 End: 12-31-2023 ambulatory ABHI RAMIRES Not Available Start: 12-06-2023 End: 12-06-2023 ambulatory Salazar Talal Sarmini Facility:[facility] Start: 12-06-2023 End: 12-06-2023 Lab Drop off Salazar Talal Sarmini [facility] Start: 12-04-2023 End: 12-04-2023 ambulatory Salazar Talal Sarmini Facility:[facility] Start: 12-04-2023 End: 12-04-2023 Patient encounter procedure Salazar Talal Sarmini [facility] Start: 12-04-2023 ambulatory Salazar Talal Sarmini Facility:[facility] Start: 12-04-2023 End: 12-04-2023 Patient encounter procedure Salazar Talal Sarmini [facility] Start: 11-26-2023 ambulatory Salazar Sarmini Facili ty:[facility] Start: 11-13-2023 End: 11-13-2023 Bamboo flowsheet Adali Giordano RN DISCHARGE Work Phone: [facility] Start: 11-13-2023 End: 11-13-2023 Bamboo flowsheet Adali Giordano RN DISCHARGE Work Phone: [facility] Start: 11-13-2023 End: 11-13-2023 Postop follow up visit related to original px Adali Giordano RN DISCHARGE Work Phone: [facility] Comment on above: Arthritis of left kn ee (Primary Dx); S/P left knee arthroscopy Start: 11-13-2023 End: 11-13-2023 ambulatory ADALI GIORDANO Not Available Start: 10-16-2023 End: 10-16-2023 Bamboo flowsheet Adali Giordano RN DISCHARGE Work Phone: [facility] Start: 10-16-2023 End: 10-16-2023 Bamboo flowsheet Adali Giordano RN DISCHARGE Work Phone: [facility] Start: 10-16-2023 End: 10-16-2023 Postop follow up visit related to original px Adali Gioradno RN DISCHARGE Work Phone: [facility] Comment on above: Arthritis of left kn ee (Primary Dx); S/P left knee arthroscopy Start: 10-16-2023 End: 10-16-2023 ambulatory ADALI GIORDANO Not Available Start: 10-08-2023 End: 10-08-2023 Refill Abhi Ramires RN DISCHARGE Work Phone: [facility] Comment on above: Post-op pain (Primar y Dx) Start: 09-10-2023 End: 09-10-2023 ambulatory DANIELLE CURRAN Not Available Start: 08-26-2023 End: 08-26-2023 ambulatory ADALI GIORDANO Not Available Start: 03-07-2023 End: 03-07-2023 ambulatory Laurita Morales Other [employer] Other Start: 03-07-2023 Office outpatient vi sit 15 minutes Laurita Morales [facility] Start: 09-20-2022 End: 09-20-2022 ambulatory Laurita Morales Other [employer] Other Start: 09-20-2022 Telephone encounter Laurita Morales [facility] Start: 09-04-2022 End: 09-04-2022 ambulatory Laurita Morales Other [employer] Other Start: 09-04-2022 Patient encounter procedure Laurita Morales [facility] Start: 04-19-[address] LAURITA MORALES Facil ity:[facility] Start: 03-01-2022 End: 03-01-2022 ambulatory Laurita Morales Other [employer] Other Start: 03-01-2022 Office outpatient vi sit 15 minutes Laurita Morales [facility] Start: 01-18-2022 End: 01-19-[address] LAURITA MORALES Facility:[facility] Start: 11-21-2021 End: 11-22-2021 ambulatory CAPRI FULLER Facility:[facility] Start: 11-08-2021 End: 11-08-2021 Patient encounter procedure Capri FULLER [facility] Start: 10-19-2021 End: 10-20-[address] LAURITA MORALES Facility:[facility] Start: 09-27-2021 End: 09-28-[address] LAURITA MORALES Facility:[facility] Start: 09-26-2021 End: 09-26-[address] LAURITA MORALES Facility:[facility] Start: 09-25-2021 Encounter for preprocedural laboratory examination DR RADHA IRAHETA [facility] Start: 09-22-2021 End: 09-23-[address] LAURITA MORALES Facility:[facility] Start: 09-22-2021 End: 09-23-2021 Encounter for preprocedural laboratory examination DR LAURITA MORALES Facility:[facility] Start: 09-11-[address] LAURITA MORALES Facil ity:[facility] Start: 09-06-2021 End: 09-07-2021 ambulatory ROBERTO MCNALLY Facility:[facility] Start: 08-30-2021 Adult health examination Malia Morales Other [facility] [employer] Other Start: 06-22-2021 End: 06-23-2021 ambulatory CAPRI FULLER Facility:[facility] Start: 05-31-2021 End: 05-31-2021 ambulatory Luis Gutierrez Facility:[facility] Start: 05-26-2021 End: 05-26-2021 ambulatory Laurita Morales Facility:[facility] Start: 05-26-2021 End: 05-26-2021 Patient encounter procedure MD Cy Sears Work Phone: [id number] Start: 05-22-2021 End: 05-23-[address] LAURITA MORALES Facility:[facility] Start: 05-10-2021 End: 05-10-2021 Patient encounter procedure Capri FULLER [facility] Start: 05-04-2021 End: 05-04-2021 ambulatory Cy Sears Facility:[facility] Start: 05-04-2021 End: 05-04-2021 Patient encounter procedure MD Cy Sears Work Phone: [facility] [place] Start: 04-20-2021 End: 04-21-2021 ambulatory CAPRI FULLER Facility:[facility] Start: 04-01-2021 End: 04-02-[address] LAURITA MORALES Facility:[facility] Start: 03-23-2021 End: 03-24-[address] LAURITA MORALES Facility:[facility] Start: 03-09-2021 End: 03-10-[address] LAURITA MORALES Facility:[facility] Procedures Date Procedure Procedure Detail Performing Clinician Start: 01-15-2024 Colonoscopy Adali Giordano RN DISCHARGE Work Phone: Start: 01-15-2024 Colonoscopy Martin Tatum Start: 01-15-2024 Esophagogastroduodenoscopy Martin Lockettsabrina inmeera Start: 09-12-2023 Tear of meniscus of knee (disorder) Martin Levylindeni Start: 09-04-2023 History of thyroidectomy Status post total thyroidectomy Abhi Ramires NP Work Phone: Start: 05-31-2021 Antibody screen Luis Dengbrandoziggy Comment on above: Order Comment: Transfuse now? N Result Comment: PERF ORMED BY: [facility] [address] [place] [address] PATHOLOGIST A[employer]ISCIENCE TE[employer]ER TRICIA OSHEA M.D. Start: 02-16-2020 Colonoscopy Abhi Ramires NP Work Phone: Start: 02-16-2020 Colonoscopy w/biopsy single/multiple Capri FULLER Colonoscopy Capri FULLER History of appendectomy Sherwin Tatum History of thyroidectomy Tari Tatum Screening for malign ant neoplasm of breast Laurita Morales Other Plan of Treatment Date Care Activity Detail Author Start: 01-14-2034 Screening for malignant neoplasm of colon [facility] Start: 02-15-2030 Screening for malignant neoplasm of colon [facility] Start: 05-13-2024 End: 05-13-2024 Patient encounter procedure 05/13/2024 10:30 AM EDT Office Visit [facility] [address] [place] [id number] Jr. Larissa Guerrero DO [address] [place] [address] [facility] Start: 02-17-2024 End: 02-16-2025 MR Knee - left WO contrast MR knee left wo IV contrast Imaging Routine Internal derangement of left knee Expected: 02/17/2024 (Approximate), Expires: 02/16/2025 [facility] Work Phone: Comment on above: Expected: 02/17/2024 (Approximate), Expires: 02/16/2025 Start: 02-17-2024 End: 02-17-2024 Patient encounter procedure 02/17/2024 9:45 AM EST Office Visit [facility] [address] [place] [id number] Adali Giordano NP [address] [place] [address] S/P left knee arthroscopy (Primary Dx); Left knee pain, unspecified chronicity; Arthritis of left knee [facility] Comment on above: S/P left knee arthro scopy (Primary Dx); Left knee pain, unspecified chronicity; Arthritis of left knee Start: 01-20-2024 End: 01-20-2024 Patient encounter procedure [facility] Comment on above: S/P left knee arthro scopy (Primary Dx); Left knee pain, unspecified chronicity; Arthritis of left knee Start: 12-31-2023 End: 12-31-2023 Patient encounter procedure 12/31/2023 10:45 AM EST Office Visit [facility] [address] [place] [id number] Abhi Ramires, MACI [address] [place] [address] Arrived [facility] Comment on above: Arrived Start: 11-13-2023 End: 11-13-2023 Patient encounter procedure [facility] Comment on above: Arthritis of left kn ee (Primary Dx); S/P left knee arthroscopy Start: 10-16-2023 End: 10-16-2023 Patient encounter procedure [facility] Comment on above: Arrived Start: 10-13-2023 Influenza vaccination Influenza Vacc ine (#1) [facility] Start: 10-09-2023 End: 10-09-2023 Patient encounter procedure 10/09/2023 11:30 AM EDT Procedure Visit [facility] Danielle Curran DO [address] [place] [address] [facility] Start: 1950 Screening for malignant neoplasm of colon [facility] Immunizations Immunization Date Immunization Notes Care Provider Fa cili 11-13-2023 influenza virus vaccine, unspecified formulation Martin Tatum [facility] 12-03-2022 ABRYSVO - Respirator y syncytial virus (RSV), vaccine, bivalent, protein subunit RSV prefusion F, diluent reconstituted, 0.5 mL, PF Abhi Ramires RN DISCHARGE Work Phone: [facility] 12-03-2022 SARS-COV-2 (COVID-19 ) vaccine, mRNA, spike protein, LNP, PF, 50 mcg/0.5 mL Abhi Ramires RN DISCHARGE Work Phone: [facility] 11-07-2022 Influenza, Seasonal, Quadrivalent, Adjuvanted Abhi Ramires RN DISCHARGE Work Phone: [facility] 11-07-2022 influenza virus vaccine, unspecified formulation Abhi Ramires RN DISCHARGE Work Phone: [facility] 10-01-2022 zoster vaccine recombinant Abhi Katie RN DISCHARGE Work Phone: [facility] 07-18-2022 zoster vaccine recombinant Abhi Ramires RN DISCHARGE Work Phone: [facility] 11-21-2021 influenza virus vaccine, unspecified formulation Martin Segurai [facility] 11-21-2021 Seasonal trivalent influenza vaccine, adjuvanted, preservative free Abhi Ramires RN DISCHARGE Work Phone: [facility] 10-27-2021 SARS-CoV-2 (COVID-19 ) [id number] Martin Lockettmini [facility] Comment on above: Result Comment: 2023: [id number] 12-09-2020 COVID-19 mRNA-1273 (Chicho) MD Cy Sears Work Phone: [facility] Comment on above: Result Comment: 2023: [id number] 11-15-2020 influenza virus vaccine, split virus (incl. purified surface antigen) Laurita Morales Other [employer] Other 11-15-2020 influenza virus vaccine, unspecified formulation Abhi Rmaires RN DISCHARGE Work Phone: [facility] 11-11-2020 influenza virus vaccine, unspecified formulation Capri FULLER [facility] 04-26-2020 COVID-19 mRNA-1273 (Moderna) MD Cy Sears Work Phone: [facility] 03-31-2020 SARS-CoV-2 (COVID-19 ) mRNA-1273 vaccine Salazar Sarmini [facility] 03-23-2020 COVID-19 mRNA-1273 (Moderna) MD Cy Sears Work Phone: [facility] 11-20-2019 influenza virus vaccine, split virus (incl. purified surface antigen) Laurita Morales Other [employer] [facility] [employer] Other 11-20-2019 influenza virus vaccine, unspecified formulation Abhi Katie RN DISCHARGE Work Phone: [facility] 07-09-2018 zoster vaccine, live Abhi O sonalen RN DISCHARGE Work Phone: [facility] 11-20-2017 pneumococcal polysaccharide vaccine, 23 valent Abhi Ramires RN DISCHARGE Work Phone: [facility] 11-14-2017 influenza virus vaccine, unspecified formulation Salazar Sarmini [facility] 11-14-2017 pneumococcal polysaccharide vaccine, 23 valent Abhi Ramires RN DISCHARGE Work Phone: [facility] 11-14-2017 Seasonal trivalent influenza vaccine, adjuvanted, preservative free Abhi Ramires RN DISCHARGE Work Phone: [facility] 10-24-2016 influenza virus vaccine, split virus (incl. purified surface antigen) Laurita Morales Other [employer] [facility] [employer] Other 10-24-2016 influenza virus vaccine, unspecified formulation Salazar Sarmini [facility] 10-24-2016 influenza, high dose seasonal, preservative-free Abhi Ramires RN DISCHARGE Work Phone: [facility] 10-24-2016 pneumococcal conjuga te vaccine, 13 valent Laurita Morales Other [employer] [facility] [employer] Other 11-08-2015 influenza virus vaccine, unspecified formulation Martin Segurameera [facility] 11-08-2015 Seasonal trivalent influenza vaccine, adjuvanted, preservative free Abhi Ramires NP Work Phone: [facility] 11-16-2014 influenza virus vaccine, unspecified formulation Salazar Levymini [facility] 11-16-2014 influenza, seasonal, injectable, preservative free Abhi Ramires RN DISCHARGE Work Phone: [facility] 08-31-2014 tetanus and diphther ia toxoids, adsorbed, preservative free, for adult use (5 Lf of tetanus toxoid and 2 Lf of diphtheria toxoid) Abhi Ramires RN DISCHARGE Work Phone: [facility] 08-31-2014 tetanus toxoid, reduced diphtheria toxoid, and acellular pertussis vaccine, adsorbed Laurita Morales Other [facility] [employer] Other 11-30-2013 pneumococcal polysaccharide vaccine, 23 valent Laurita Morales Other [facility] [employer] Other 03-24-2013 zoster vaccine, live Abhi daly NP Work Phone: [facility] 11-11-2012 influenza virus vaccine, unspecified formulation Salazar Levyminmeera [facility] 11-11-2012 influenza, seasonal, injectable Abhi Ramires RN DISCHARGE Work Phone: [facility] 01-29-2003 hepatitis B vaccine, adult dosage Abhi Ramires NP Work Phone: [facility] 08-10-2002 hepatitis B vaccine, adult dosage Abhi Ramires RN DISCHARGE Work Phone: [facility] 07-08-2002 hepatitis B vaccine, adult dosage Abhi Ramires RN DISCHARGE Work Phone: [facility] 07-08-2002 TD(adult) unspecifie d formulation; Translations: [Td(adult) unspecified formulation] Abhi Ramires NP Work Phone: [facility] NEGATED: Highlighted row has not occurred!11-08-2021 influenza virus vaccine, unspecified formulation Capri FULLER [facility] Payers Date Payer Category Payer Self-pay [id number] 2021 Private Health Insurance [id number] 2021 Private Health Insurance CLI [id number] 2013 Medicare [id number] 1959 Medicare [id number] 1959 Unknown [id number] 1948 Unknown [id number] 2.16.84 [id number] 1948 Unknown [id number] 2.16.84 [id number] 1948 Unknown [id number] 2.16.84 [id number] 1948 Unknown [id number] 2.16.84 [id number] 1948 Unknown [id number] 2.16.84 [id number] 1948 Unknown [id number] 2.16.84 [id number] 1948 Unknown [id number] 2.16.84 [id number] 1948 Unknown [id number] 2.16.84 [id number] 1948 Unknown [id number] 2.16.84 [id number] 1948 Unknown [id number] 2.16.84 [id number] 1948 Unknown [id number] 2.16.84 [id number] 1948 Unknown [id number] 2.16.84 [id number] 1948 Unknown [id number] 2.16.84 0.1.035918.3.579.2.593 1950 Unknown [id number] 2.16.84 0.1.866753.3.579.2.593 1950 Unknown [id number] 2.16.84 0.1.334506.3.579.2.593 1948 Unknown [id number] 2.16.84 0.1.305871.3.579.2.593 1948 Unknown [id number] 2.16.84 0.1.600975.3.579.2.593 1948 Unknown [id number] 2.16.8 40.1.147054.3.579.2.727 1950 Unknown [id number] 2.16.8 40.1.982491.3.579.2.727 1948 Unknown [id number] 2.16.8 40.1.907241.3.579.2.727 1948 Unknown [id number] 2.16.84 0.1.312449.3.579.2.1259 1948 Unknown [id number] 2.16.84 0.1.073098.3.579.2.1259 1948 Unknown [id number] 2.16.84 0.1.445941.3.579.2.125 1948 Unknown [id number] 2.16.84 0.1.176285.3.579.2.1258 1948 Unknown [id number] 2.16.84 0.1.799807.3.579.2.1258 1948 Unknown [id number] 2.16.84 0.1.137144.3.579.2.125 1948 Unknown [id number] 2.16.84 0.1.937458.3.579.2.1258 1948 Unknown [id number] 2.16.84 0.1.516795.3.579.2.125 1948 Unknown [id number] 2.16.84 0.1.315964.3.579.2.1258 1948 Unknown [id number] 2.16.8 40.1.224428.3.579.2.727 Medicare Self Pay [id number] Unknown [id number] 2.16.8 40.1.120532.3.579.2.531 Unknown [id number] 2.16.8 40.1.206300.3.579.2.531 Unknown [id number] 2.16.8 40.1.350267.3.579.2.531 Social History Date Type Detail Facility [facility] Work Phone: Start: 1950 Sex Assigned At Female [facility] Start: 05-10-2021 End: 03-20-2024 Tobacco smoking status Heavy tobacco smoker (finding) [facility] Start: 09-10-2023 End: 03-18-2024 Sex Assigned At Female [facility] Start: 05-26-2021 [facility] Start: 08-26-2023 Tobacco smoking stat [facility] Smokes tobacco daily [facility] History of tobacco use Cigarette Smoker [facility] Start: 08-26-2023 Tobacco use and exposure Smokeless tobacco non-user [facility] Start: 09-10-2023 End: 03-18-2024 Alcoholic beverage intake Current drinker of alcohol (finding) [facility] Start: 09-10-2023 End: 03-18-2024 History of Social function [facility] Start: 1950 Sex assigned at Not on file N [facility] Tobacco smoking status Never [facility] Functional Status Date Assessment Result Facility 03-20-2024 Functional Status N/A [facility] 01-30-2024 Functional Status N/A [facility] 01-15-2024 Functional Status N/A [facility] 12-04-2023 Functional Status N/A [facility] 11-08-2021 Functional Status N/A [facility] Clinical Notes 01-24-2021 to 03-18-2024 Jr. Larissa Guerrero, DO - 03/18/2024 10:45 AM ESTTelephone Encounter - Tyra Gabrielgger - 03/02/2024 10:12 AM ESTTelephone Encounter - Tyra Tray - 03/02/2024 10:12 AM ESTLaboratory Note Date & Type Note Facility 03-18-2024 History of Presen t illness Narrative Images from the original note were not included. HISTORY OF PRESENT ILLNESS: EST PT Alexandra Cervantes is an 74 y.o. @ female. (EST PT) (LAST APPT WITH [facility]) - RECHECK (L) KNEE S/P MRI @[facility] (02/25/24) ; S/P (L) KNEE SCOPE (DR. CURRAN) (10/09/23) (5 MONTHS, 1 WK, 1 DAY) XRAY B/L KNEE 08/26/23 IN EPIC XRAY (L) KNEE (02/09/23) IN CHANGE MRI @[facility] 02/25/24 MDP 12/31/23 (50% IMPROVEMENT) CORTISONE INJ (01/20/24) (70-80% IMPROVEMENT) NO PT PAIN MANAGEMENT @ [facility] (BACK) STATES INJECTION 01/20/24 ONLY LASTED 2-3 [...] requiring urgent evaluation. documented in this encounter [facility] 03-02-2024 Miscellaneous Notes Patient called and left requesting a call for here MRI results. documented in this encounter [facility] 03-02-2024 Telephone encounter Note Patient called and left requesting a call for here MRI results. [facility] 02-17-2024 History of Presen t illness Narrative [...] f/u s/p MRI to be done at [facility] documented in this encounter [facility] 01-30-2024 Evaluation + Plan note Future Scheduled TestsCalprotectin, Fecal 01/30/24Calprotectin, Fecal 03/17/24Clostridium Difficile PCR 03/17/24Quantiferon-TB Plus (Client Incubated) 03/17/24Enteric Panel by PCR 03/17/24CBC w/ Auto Diff 03/20/24CBC w/ Auto Diff 03/17/24Comprehensive Metabolic Panel 03/20/24Comprehensive Metabolic Panel 03/17/24C-Reactive Protein 03/20/24C-Reactive Protein 03/17/24Hepatitis B Surface Antibody 03/17/24Hepatitis B Surface Antigen 03/17/24 [facility] 01-20-2024 History of Presen [...] she understands this. documented in this encounter [facility] 01-15-2024 Hospital Discharg e instructions Patient Education 01/15/2024 13:05:31 Gastritis, Adult, Joqr-bm-Ksal Gastritis, Adult Gastritis is irritation and swelling [...] Follow these instructions at home: Medicines Take ztlv-mgv-znmtkhv and prescription medicines only as told by [...] provider. Document Revised: 06/03/2021 Document Reviewed: 06/03/2021 [employer] Patient Education 2023 [employer]. 01/15/2024 13:05:27 Endoscopy, Care After Procedure [facility]) Endoscopy Care After Procedure Please read the [...] blood. Document Released: 09/11/2004 Document Re-Released: 07/22/2006 [employer] Patient Information [place]. 01/15/2024 13:05:22 Hemorrhoids, Gwii-ah-Zfio Hemorrhoids Hemorrhoids are swollen veins that may [...] Follow these instructions at home: Medicines Take meud-gca-oaxuxab and prescription medicines only as told by [...] provider. Document Revised: 10/10/2022 Document Reviewed: 10/10/2022 [employer] Patient Education 2023 [employer]. 01/15/2024 13:05:13 Ulcerative Colitis, Adult Ulcerative Colitis, [...] instructions at home: Medicines and vitamins Take txat-vms-ntkjogq and prescription medicines only as told by [...] and water are not available, use hand sales solutions associate. Stay up to date on your vaccinations, [...] information about ulcerative colitis at the National [place] of Diabetes and Digestive and Kidney Diseases [...] provider. Document Revised: 10/04/2020 Document Reviewed: 10/04/2020 [employer] Patient Education 2023 [employer] 01/15/2024 13:05:09 Colonoscopy, Care After Surgery Salam [...] severe or gets worse throughout the day. [facility] 01-15-2024 Evaluation + Plan note Extrac javier from: Title:ANES Post-operative Note---General Author: Danielle Garcia MD Date:01/15/24 Plan Transfer/Discharge: Transfer/Discharge Discharge when meets criteria ( To home ). Extracted from: Title:ANES Pre-operative Note 2022 Author:Danielle Ha. Date:01/15/24 Plan [place] [employer] Anesthesiologists (ASA) physical status classification: Class II. Anesthetic Preoperative Plan: Anesthesia General. Extracted from: Title:1Preop H&P Author:Deepti ALARCON, Martin reynolds Date:01/15/24 Impression and Plan Impression: Ulcerative colitis, chronic diarrhea Plan: -EGD and Colonoscopy Future Appointments Appointment Date:01/30/2024 01:45:00 PM Scheduled Provider:Martin Tatum MD Location:[facility] Appointment Type:[facility] Follow Up Diagnostic Tests Pending * Enteric Panel by PCR 01/15/24 * Clostridium Difficile PCR 01/15/24 * Hep B Core Ab, Tot 01/15/24 * Hepatitis B Surface Antibody 01/15/24 * Hepatitis B Surface Antigen 01/15/24 * Quantiferon-TB Plus (Client Incubated) 01/15/24 [facility] 11-19-2024 History of Present illness Narrative* bAhi Ramires, MACI - 12/31/2023 10:45 AM EST Images from [...] develop for requiring urgent evaluation. Abhi Ramires APRN-ALBERENE STONE SETTER documented in this [facility] [id number] History of Present illness Narrative* Adali Giordano [...] do activities as tolerated. documented in this encounterN[facility] [id number] History of Present illness Narrative* Adali Giordano [...] as tolerated, f/U prn documented in this encounterN[facility] [id number] Telephone encounter Note* Telephone Encounter - Abhi Ramires NP - 10/08/2023 3:02 PM EDT Post op pain rx. PDMP reviewed [facility] [id number] Miscellaneous Notes* Telephone Encounter - Abhi Ramires NP - 10/08/2023 3:02 PM EDT Post op pain rx. PDMP reviewed documented in this encounterNevada [facility] Medical [id number] Evaluation note* Encounter Date Diagnosis Assessment Notes [...] continue to monitor through routine blood work [facility] Other 08-10-2023 Evaluation note* Encounter Date Diagnosis Assessment Notes Treatment Notes Treatment Clinical Notes Sep, Right foot pain (ICD-10 - M79.671) [facility] [employer] Other 07-25-2023 Evaluation note* Encounter Date Diagnosis [...] - E03.9) Chronic problem due for labs. [facility] Other 01-19-2023 Evaluation note* Encounter Date Diagnosis [...] - E78.5) Due for labs in summer. [facility] Other 12-08-2022 NoteCONSULTATION PROCEDURE DATE: 01/18/2022 PREOPERATIVE [...] will be followed up in the office.[facility] [id number] NoteCONSULTATION CONSULTATION DATE: 01/18/2022 HISTORY OF PRESENT [...] in three months' time, unless otherwise indicated.[facility] [id number] Evaluation + Plan note Diagnostic Tests Pending * CBC w/ Auto Diff 11/08/21 * Comprehensive Metabolic Panel 11/08/21 [facility] 09-08-2022 NoteCONSULTATION PROCEDURE DATE: [...] will be followed up in the office.[facility] 10-19-2021 NoteCONSULTATION CONSULTATION DATE: [...] in three months' time unless otherwise indicated.[facility] [id number] NoteCONSULTATION CONSULTATION DATE: 09/06/2021 HISTORY OF PRESENT [...] 8/10. She has been following up with [facility] and had a benign fibroid tumor [...] procedure, and patient agrees to move forward.[facility] [id number] NoteCONSULTATION PAIN MANAGEMENT CONSULTATION HISTORY: This is [...] by: ROBERTO MCNALLY . 04/27/2021 12:41:00[facility]12-14-2021 Hospital Discharge instructions Follow Up Care 01/24/2021 10:04:31 With:JANINA ALARCON, LENORE Farooq, [facility] Address: [address] [place] [address]- When:6 months [facility] Evaluation + Plan note Future Appointments Appointment Date:11/08/2021 10:15:00 AM Scheduled Provider:Capri FULLER MD Location:[facility] Appointment Type:[facility] Follow Up Future Scheduled Tests Laboratory* CBC w/ Indices 07/25/20 * Comprehensive Metabolic Panel 07/25/20 [facility] Evaluation + Plan note Future Appointments Appointment Date:01/15/2024 12:00:00 PM Scheduled Provider: Location:[facility] Appointment Type:Surgery FT Appointment Date:01/30/2024 01:45:00 PM Scheduled Provider:Martin Tatum MD Location:[facility] Appointment Type:[facility] Follow Up Future Scheduled Tests Laboratory* O & P Exam, Routine 12/04/23 * Clostridium Difficile PCR 12/04/23 * Enteric Panel by PCR 12/04/23 [facility] Evaluation + Plan note Future Appointments Appointment Date:01/15/2024 12:00:00 PM Scheduled Provider: Location:[facility] Appointment Type:Surgery FT Appointment Date:01/30/2024 01:45:00 PM Scheduled Provider:Martin Tatum MD Location:[facility] Appointment Type:BAD Follow Up Diagnostic Tests Pending * Celiac Disease Comprehensive 12/04/23 Future Scheduled Tests Laboratory* O & P Exam, Routine 12/04/23 * Clostridium Difficile PCR 12/04/23 * Enteric Panel by PCR 12/04/23 [facility] evaluation + Plan note Future Appointments Appointment Date:01/15/2024 12:00:00 PM Scheduled Provider: Location:[facility] Appointment Type:Surgery FT Appointment Date:01/30/2024 01:45:00 PM Scheduled Provider:Martin Tatum MD Location:[facility] Appointment Type:BAD Follow Up Diagnostic Tests Pending * O & P Exam, Routine 12/06/23 [facility] evaluation + Plan note Future Appointments Appointment Date:04/29/2024 09:15:00 AM Scheduled Provider:Martin Tatum MD Location:[facility] Appointment Type:[facility] Follow Up Future Scheduled Tests Laboratory* Calprotectin, Fecal 01/30/24 [facility] Evaludgttc noteNo assessment information available [facility] Work Phone: Evfrvozxgv note* Diagnosis Arthritis of left knee- Primary [...] 04/12 Hospitalization History See past surgical hx [facility] Other Hospital course Narrative No data available for this section [facility] Hospital Discharge instructions No data available for this section [facility] Progress note No data available for this section [facility] Chief Complaint and Reason [...] Right foot pain (M79 .671) Referral Organization [facility] Referring Provider First Name Laurita Referring Provider Last Name Carmen Referring Provider Specialty [facility] Referred Organization [facility] Referred Provider Seymour Johnson Referred Address [address], [place],[address] Referred Provider Specialty Podiatry - S urgical [...] Active Luis Gutierrez DO Attending Provider Active Automatic Blocker Relationship Specialty Start Date End Date Laurita Morales MD [address] [place] [address] PCP - General Family Medicine 08/26/23 Automatic Blocker Relationship Specialty Start Date End Date Laurita Morales MD [address] [facility] [place] [address] PCP - General Family Medicine 08/26/23 Automatic Blocker Relationship Specialty Start Date End Date Laurita Morales MD [address] [facility] [place] [address] PCP - General Family Medicine 08/26/23 Automatic Blocker Relationship Specialty Start Date End Date Laurita Morales MD [address] [facility] [place] [address] PCP - General Family Medicine 08/26/23 Automatic Blocker Relationship Specialty Start Date End Date Laurita Morales MD [address] [facility] [place] [address] PCP - General Family Medicine 08/26/23 Automatic Blocker Relationship Specialty Start Date End Date Laurita Morales MD [address] [facility] [place] [address] PCP - General Family Medicine 08/26/23 Automatic Blocker Relationship Specialty Start Date End Date Laurita Morales MD [address] [facility] [place] [address] PCP - General Family Medicine 08/26/23 Automatic Blocker Relationship Specialty Start Date End Date Laurita Morales MD [address] [facility] [place] [address] PCP - General Family Medicine 08/26/23 Automatic Blocker Relationship Specialty Start Date End Date Laurita Morales MD [address] [facility] [place] [address] PCP - General Family Medicine 08/26/23 Automatic Blocker Relationship Specialty Start Date End Date Laurita Morales MD [address] [facility] [place] [address] PCP - General Family Medicine 08/26/23 Automatic Blocker Relationship Specialty Start Date End Date Laurita Morales MD [address] [facility] [place] [address] PCP - General Family Medicine 08/26/23 Goals [...] section and content) DATE CREATED AUTHOR 05/23/2021 [facility] DATE CREATED AUTHOR AUTHOR'S ORGANIZ ATION 01/23/2022 [facility] DATE CREATED AUTHOR AUTHOR'S ORGANIZ ATION 03/17/2022 [facility] DATE CREATED AUTHOR AUTHOR'S ORGANIZ ATION 12/03/2023 [facility] DATE CREATED AUTHOR AUTHOR'S ORGANIZ ATION 12/08/2023 [facility] DATE CREATED AUTHOR AUTHOR'S ORGANIZ ATION 12/10/2023 [facility] DATE CREATED AUTHOR AUTHOR'S ORGANIZ ATION 12/12/2023 [facility] DATE CREATED AUTHOR AUTHOR'S ORGANIZ ATION 01/23/2024 [facility] DATE CREATED AUTHOR AUTHOR'S ORGANIZ ATION 01/25/2024 [facility] DATE CREATED AUTHOR AUTHOR'S ORGANIZ ATION 02/03/[address] [facility] DATE CREATED AUTHOR AUTHOR'S ORGANIZ ATION 03/20/2024 [facility] DATE CREATED AUTHOR AUTHOR'S ORGANIZ ATION 03/26/2024 [facility] REASON FOR VISIT (unrecogniz ed section and [...] BE BASED ON THE PRIMARY CLINICAL RECORDS. [facility] [employer] provides no warranty or guarantee of the accuracy or completeness of information in this document.
[2024-03-31 07:32] VITALS: BP 174/79; PULSE 88; TEMP 36.5; O2SAT 98
[2024-03-31 08:23] VITALS: BP 190/90; PULSE 81; O2SAT 94
[2024-03-31 08:24] VITALS: BP 170/75; PULSE 82; O2SAT 92
[2024-03-31] MEDS: 0.9 % SODIUM CHLORIDE 10 ML SYRINGE - SALINE FLUSH 2 ML INJ (08:32)
[2024-03-31] MEDS: LIDOCAINE HCL 2% 400 MG/20 ML MDV 8 ML INJ (08:33)
[2024-03-31] MEDS: METHYLPREDNISOLONE ACETATE 80 MG/ML VIAL INJ (08:33)
[2024-03-31] MEDS: BUPIVACAINE HCL 0.25% PF 25 MG/10 ML VIAL 2 ML INJ (08:33)
[2024-03-31] MEDS: IOHEXOL 240 MG/ML - 10 ML VIAL 48 MG INJ (08:33)
--- NOTE | 2024-03-31 09:04 | P.ON_ITS ---
Date of procedure: 03/31/24 Pre-op diagnosis: Lumbar radiculopathy Post-op diagnosis: same as pre-op Procedure: Lumbar 5/sacral 1 Epidural Steroid Injection Under fluoroscopic guidance Immediate complications none Solution used for injection: Marcaine 0.25% 2mL, 2cc Normal saline, Depo-Medrol 80mg Omnipaque 3 mL Anesthesia local 2% lidocaine up to 4ml Timeout process compliant After informed consent obtained. Patient brought to the procedure room placed in the prone position. Skin overlying the area was prepped and draped in a sterile fashion using betadine. 25 gauge needle used to raise a skin wheel with local anesthetic over the target area identified under fluoroscopy. A 17 gauge Touhy needle Was inserted over the anesthetized area and directed towards the inter- space under fluoroscopic guidance. Epidural space was identified with loss of resistance technique to air. Needle Tip placement confirmed with injection of contrast solution in AP and Lateral views. Steroid solution was then injected. Anesthesia: Local Surgeon: Selene Musa Condition: stable
== END 2024-03-31 08:37 | disposition home or self-care (01) ==
LOC: SURGOUT 07:23
PROVIDERS: PCP Family Medicine; Visit Provider Anesthesiology Pain Medicine
DX: M54.16 Radiculopathy, lumbar region (principal)
CPT/HCPCS: 62323; J0665; J1010; Q9966

== ENCOUNTER 2024-04-09 10:20 | Outpatient (OUT) | payer MEDICARE, OTHER, SELFPAY ==
--- NOTE | 2024-04-09 10:36 | PM.CN ---
Consult Note: HPI Data of Consult Patient: known to practice within the last 3 years Requesting Physician: Renee Bernal NP Primary Care Provider: Danyell Kelly MD Consult Narrative Reason for consult: MRI f/u Narrative: Tisha Cervantes a pleasant 73 year old female presents for evaluation of chronic right foot pain secondary to lumbar radiculopathy. Patient has failed to benefit from >6 weeks of PT, tylenol, nsaids, and topical voltaren cream. Patient currently utilizing aleve and baclofen PRN. Pain today 4-5/10 increasing with standing, walking, housework and activity. Pain improved with sitting lying and sleep. recent L5-S1 TAMMY providing no significant improvement per pt. cc:: CC: Renee Bernal NP Review of Systems ROS Status of ROS 10 or more systems reviewed and unremarkable except as noted in history and below Musculoskeletal Reports: extremity pain PFSH PFSH Medical History (Updated 11/29/23 @ 11:35 by Nhi Jane MD) Hypothyroid ?E03.9 - Hypothyroidism, unspecified (ICD-10) Acid reflux ?K21.9 - Gastro-esophageal reflux disease without esophagitis (ICD-10) Tumor, thyroid ?D49.7 - Neoplasm of unspecified behavior of endocrine glands and other parts of nervous system (ICD-10) Carpal tunnel syndrome ?G56.00 - Carpal tunnel syndrome, unspecified upper limb (ICD-10) Sleep apnea ?G47.30 - Sleep apnea, unspecified (ICD-10) Surgical History History of tubal ligation ?Z98.51 - Tubal ligation status (ICD-10) History of appendectomy ?Z90.49 - Acquired absence of other specified parts of digestive tract (ICD-10) History of carpal tunnel release ?Z98.890 - Other specified postprocedural states (ICD-10) Social History Little interest or pleasure in doing things: not at all Feeling down, depressed, or hopeless: not at all Meds Home Medications and Allergies Home Medications ?Medication ?Instructions ?Recorded ?Confirmed ?Type alprazolam 0.5 mg tablet 0.5 mg PO DAILY 09/10/23 03/31/24 History baclofen 10 mg tablet 10 mg PO DAILY PRN spasms 09/10/23 03/31/24 History escitalopram oxalate 20 mg tablet 20 mg PO DAILY 09/10/23 03/31/24 History ibuprofen 400 mg tablet 400 mg PO TID 09/10/23 03/31/24 History levothyroxine 75 mcg tablet 75 mcg PO DAILY 09/10/23 03/31/24 History omeprazole 40 mg capsule,delayed 40 mg PO DAILY 09/10/23 03/31/24 History release simvastatin 40 mg tablet 40 mg PO DAILY 09/10/23 03/31/24 History sulfasalazine 500 mg tablet 0.5 g PO DAILY 09/10/23 03/31/24 History zonisamide 50 mg capsule 50 mg PO DAILY 09/10/23 03/31/24 History magnesium oxide 400 mg PO DAILY #7 caps 11/29/23 03/31/24 Rx potassium chloride 20 mEq oral 40 meq PO DAILY 3 days #6 ea 11/29/23 03/31/24 Rx packet Allergies Allergy/AdvReac Type Severity Reaction Status Date / Time No Known Drug Allergies Allergy Verified 03/31/24 07:39 Exam Constitutional Documenting provider has reviewed patient's vital signs: yes Common normals: no apparent distress, oriented x3, healthy appearing, alert and well nourished General appearance: cooperative HENND Common normals: normocephalic, hearing grossly normal bilaterally and moist oral mucous membranes Head and scalp: normocephalic Eye Common normals: PERRL Pupil: PERRL Neck & C-Spine Common normals: full ROM General: normal visual inspection Chest Common normals: inspection of chest normal Respiratory Common normals: normal respiratory effort, no retractions and no use of accessory muscles Back & Pelvis Lumbar spine/lower back: ROM limited, pain with ROM and straight leg raise positive right Sacroiliac joints: SI joints normal Other: positive facet loading strength 5/5 in BLE altered sensation to right L4,L5,S1 Neuro Common normals: oriented x3, CN's II-XII intact bilaterally, moves all extremities, no focal motor deficits, no sensory deficits noted and deep tendon reflexes 2+ bilaterally Sensorium/orientation: alert Motor exam: strength 5/5 throughout and no movement abnormalities noted Psych Common normals: mental status grossly normal, thought process normal, cooperative, affect normal, speech normal and activity/motor behavior normal Speech: normal speech Thought process: normal thought process Results Additional Findings Additional findings: If on a controlled substance or opioids, I have checked an [place]AR[place] report on this patient and there are no aberrancies noted in the prescribing history.??If on a controlled substance or opioid a drug screen was completed and reviewed within the last year, and if there has not been a drug screen completed we ordered one today to monitor higher risk, state monitored pain medication use. As part of providing excellent, safe, comprehensive care, the following was completed at our patient's visit: 1. A medication reconciliation and review to ensure accurate knowledge of current/active medications, including asking our patients to inform us about any fxks-gel-tqndqtz medications or herbal remedies/nutritional supplements/alternative remedies. 2. A review to specifically ensure our patients have had annual screening for screening for depression, screening for tobacco use, and screening for unhealthy alcohol use. For concerning screenings had a discussion with the patient, provided patient education, and recommended follow-up with primary care provider when appropriate. If patient noted with a risk of falling, they received education on strength, gait, and balance training to prevent future risk of falling. Portions of this note may have been carried over from the previous visit and updated as appropriate. Please note this office utilizes paper charting in addition to the electronic medical record. A list of current medications, vitals, and PMH is available there as the clinical staff outside of myself do not have access to [employer] charting during the clinic day operations. As part of providing quality comprehensive care the current medications, vitals, and PMH were reviewed in the paper chart. Assessment and Plan Assessment and Plan (1) Lumbar radiculopathy: (2) Lumbar degenerative disc disease: (3) Spondylolisthesis: Plan right L4-5 L5-S1 TFESI under fluoroscopy with Dr Cook continue HEP as tolerated continue current medications f/u 2 weeks after injection
--- OUTSIDE RECORDS SUMMARY | 2024-04-09 10:36 | XMS_ITS | CCD ---
Author Organization [facility] Care Team Providers Care Linemarker Name Role Phone MD Cy Sears Attending Provider [phone] MD Laurita Morales Primary Care Provider LAURITA MORALES Primary Care Physician DO Luis Gutierrez Attending Provider CARMEN, DR LAURITA Solis Attending Unavailable MROALES, DR LAURITA Solis Admitting Unavailable MORALES, DR [...] LAURITA Solis Admitting Unavailable MORALES, DR LAURITA Solsi Consulting Unavailable MORALES, DR LAURITA Solis Primary [...] Unavailable MORALES, DR LAURITA Solis Attending Unavailable [place], DR LONNY Wiggins Consulting Unavailable MORALES, DR [...] Unavailable SALAM, FAROOQ Admitting Unavailable MORALES, DR LAUIRTA Solis Primary Care Unavailable SALAM, FAROOQ Attending [...] Unavailable Laurita Morales MD Primary Care Provider Martin Tatum Attending Unavaila ble Sarmini, Martin [...] every six hours for pain HYDROcodone-acetami nophen (Soper) 5-325 MG tablet Indications: Post-op pain Take [...] Daily, # 30 tab(s), Refills(s) 0, Pharmacy: [facility], 150, cm, 07/25/20 14:29:00 EDT, [...] 01/28/20 Status: Ordered take 1 tablet by maai th once daily Levothyroxine Sodium 75 MCG [...] 0 Start Date: 03/20/24 Status: Ordered NuLYTELY [place] oral powder for reconstitution (1 source) Start: 01-28-2020 take 1 dose by mouth once NuLYTELY [place] oral powder for reconstitution See Instructions, 1 [...] the same time Active polyethylene glycol 3350 929208 mg / potassium chloride 1480 mg / sodium bicarbonate 5720 mg / sodium chloride 60414 mg powder for oral solution (1 source) Osmotic Laxative Start: 01-28-2020 take 1 dose by mouth once NuLYTELY [place] oral powder for reconstitution See Instructions, 1 [...] finished, # 252 tab(s), Refills(s) 0, Pharmacy: [facility], 69, kg, 01/15/24 9:14:00 EST, Weight [...] day(s), # 540 tab(s), Refills(s) 3, Pharmacy: [facility], 150, cm, 03/20/24 11:03:00 EST, Height/Length Dosing, 74.6, kg, 03/20/24 11:03:00 EST, Weight Dosing Start Date: 03/20/24 Stop Date: 03/15/25 Status: Ordered Start: 05-26-2021 take 500 mg by mouth four times daily Sulfasalazine Active 500 MG PO Four times daily May 26, 2021 2:53pm Start: 05-10-2021 take 2 tablets by mo [facility] three times daily sulfasalazine 500 mg Tab 1,000 mg = 2 tab(s), Oral, TID, # 180 tab(s), Refills(s) 11, Pharmacy: [facility]/pharmacy #[id number], 150, cm, 05/10/21 11:13:00 [...] colonoscopy late May/June, with Dr Deepti Solorio [facility] Gastroenterology Office/Clin ic Noteon 03-20-2024 Gastroenterology [...] fL (01/15/24) Chloride: 100 mmol/L Low (01/15/24) [place] Absolute: 1.1 E9/L High (01/15/24) CO2: 23 mmol/L (01/15/24) [place] Auto: 10.6 % (01/15/24) Creatinine: 0.6 mg/dL [...] years, pereira (more content not included)... Normal [facility] Comment on above: Result Comment: Elec tronically Signed By: Deepti ALARCON, Martin Khan\.br\Date and Time Signed: 03/20/24 11:30 EST\.br\Electronically Co-Signed By: Jacquie Gauthier MA\.br\Date and Time Co-Signed: 03/20/24 11:29 EST Ambulatory Visit Summaryon 1 04-01-2023 Ambulatory Visit Summary Ambulatory Visit Summary ALEXANDRA CERVANTES Karthik :1950 Visit Date:01/30/2024 Ambulatory Visit Instructions Your [...] EDT With: Deepti ALARCON, Martin Khan Where: [facility] [address] [place], [place] [id number]- You Need to Complete the Following Calprotectin, [...] choosing us for your care. Normal [facility] Gastroenterology Office/Clin ic Noteon 01-30-2024 Gastroenterology [...] for h (more content not included)... Normal [facility] Comment on above: Result Comment: Elec tronically Signed By: Deepti ALARCON, Martin Khan\.br\Date and Time Signed: 01/30/24 14:13 EST Surgical Pathology Reporton 01-22-2024 Surgical Pathology Report [facility] [address] [facility] [place] [address]- Surgical Pathology Report Collected Date/Time: 01/15/2024 12:33 [...] is entirely submitted in one cassette. (DC) DC:[facility] Microscopic Description Microscopic examination performed unless gross only specified. The use of one or more reagents in the above tests is regulated as an analyte specific reagent (ASR). The test or tests are ordered following initial H&E microscopic examination. The performance characteristics were determined by the Laboratory of [facility] Surgical Pathology. They have not been cleared or approved by the [place] Food and Drug Administration. The FDA has determined that such clearance or approval is not necessary. These tests are used for clinical purposes. They should not be regarded as investigational or for research. Appropriate positive and negative controls are performed and are acceptable. Normal [facility] Comment on above: Performed By: #### 4 [id number] #### [facility] [address] [place] [address] Quantiferon-TB Plus (Client Incubated)on 01-17-2024 Gamma interferon background IA Qn (Bld) 0.02 International_Unit/mL Invalid Interpretation Code [facility] Comment on above: Performed By: #### 1 [id number] #### [facility] [address] [place] [address] M. tuberculosis stim IFN-g by CD4+ CD8+ T-cells corrected for background Qn (Bld) 0.05 International_Unit/mL Invalid Interpretation Code [facility] Comment on above: Performed By: #### 1 [id number] #### [facility] [address] [place] [address] M. tuberculosis stim IFN-g by CD4+ T-cells corrected for background Qn (Bld) 0.02 International_Unit/mL Invalid Interpretation Code [facility] Comment on above: Performed By: #### 1 [id number] #### [facility] [address] [place] [address] M. tuberculosis stim IFN-g Ql (Bld) [Interp] Negative Invalid Interpretation Code Negative [facility] Comment on above: Result Comment: No [...] interferon gamma. Chemiluminescence immunoassay methodology Performed at: [address] [id number] PhD Kirk Cm Performed By: #### 1 [id number] #### [facility] [address] [place] [address] Mitogen stimulated gamma interferon corrected for background Qn (Bld) >10.00 Invalid Interpretation Code [facility] Comment on above: Performed By: #### 1 [id number] #### [facility] [address] [place] [address] Service comment (Unsp spec) [Interp] Comment Invalid Interpretation Code [facility] Comment on above: Result Comment: Terry [...] for the test. Performed By: #### 1 [id number] #### [facility] [address] [place] [address] Enteric Panel by PCRon 01-15 Enteric Panel by PCR Shiga Tox Interp Negative for Shiga Toxin producing E. coli Normal [facility] CHEMISTRYOrdered By: SYSTEM SYSTEM on 01-15-2024 [...] samples in close time sequence. Normal Negative [facility] Comment on above: Result Comment: This test result should be correlated with clinical presentations and medical history by a healthcare provider to determine its clinical significance.\.br\.br\ Other Comment: Order added by Discern Expert. Clostridium difficile by PCR Negative Normal Negative [facility] Comment on above: Order Comment: Order added by Discern Expert. Result Comment: This test result should be correlated with clinical presentations and medical history by a healthcare provider to determine its clinical significance. Performed By: #### 4 [id number] #### [facility] [address] [place] [address] CDiff PCRon 12-06-2023 C. difficile toxin A+B Ql (Stl) No, PCR to follow Normal [facility] Comment on above: Performed By: #### 3 [id number] #### [facility] [address] [place] [address] CDiff PCR Order Cancelled Specimen has been found to be acceptable for C. difficile testing. Normal [facility] Enteric Panel by PCRon 12-05 C. coli+jejuni+upsalien sis DNA ADELITA+non-probe Ql (Stl) Not detected Normal [facility] Comment on above: Result Comment: Test ing was performed utilizing reverse burglary investigator (RT), polymerase chain reaction (PCR), and array [...] nulcleic acid test. Performed By: #### 1 [id number] #### [facility] [address] [place] [address] E. coli stx1+stx2 genes ADELITA+non-probe Ql (Stl) Negative Normal [facility] Comment on above: Performed By: #### 1 [id number] #### [facility] [address] [place] [address] Enteric Panel by PCR Shiga Tox Interp Negative for Shiga Toxin producing E. coli Normal [facility] Enteric Panel Intrl QC Pass Normal [facility] Comment on above: Result Comment: Test ing was performed utilizing reverse burglary investigator (RT), polymerase chain reaction (PCR), and array [...] 1 and 2. Performed By: #### 1 [id number] #### [facility] [address] [place] [address] Norovirus genogroup I+II RNA ADELITA+non-probe Ql (Stl) Not detected Normal [facility] Comment on above: Performed By: #### 1 [id number] #### [facility] [address] [place] [address] Rotavirus A RNA ADELITA+non-probe Ql (Stl) Not detected Normal [facility] Comment on above: Performed By: #### 1 [id number] #### [facility] [address] [place] [address] S. enterica+bongori DNA ADELITA+non-probe Ql (Stl) Not detected Normal [facility] Comment on above: Result Comment: This test result should be correlated with clinical presentations and medical history by a healthcare provider to determine its clinical significance. Performed By: #### 1 [id number] #### [facility] [address] [place] [address] Shigella species+EIEC invasion plasmid antigen H ipaH gene ADELITA+non-probe Ql (Stl) Not detected Normal [facility] Comment on above: Performed By: #### 1 [id number] #### [facility] [address] [place] [address] V. cholerae+parahaemoly ticus+vulnificus DNA ADELITA+non-probe Ql (Stl) Not detected Normal [facility] Comment on above: Performed By: #### 1 [id number] #### [facility] [address] [place] [address] Y. enterocolitica DNA ADELITA+non-probe Ql (Stl) Not detected Normal [facility] Comment on above: Performed By: #### 1 [id number] #### [facility] [address] [place] [address] Celiac Disease Comprehensive on 12-05-2023 Endomysium IgA Ql (S) Negative Invalid Interpretation Code Negative [facility] Comment on above: Performed By: #### 1 [id number] #### [facility] [address] [place] [address] Gliadin peptide IgA Qn (S) 4 unit(s) Invalid Interpretation Code 0- [facility] Comment on above: Result Comment: Nega tive 0 - 19 Weak Positive 20 - 30 Moderate to Strong Positive >30 Performed By: #### 1 [id number] #### [facility] [address] [place] [address] Gliadin peptide IgG Qn (S) 3 unit(s) Invalid Interpretation Code 0-19 [facility] Comment on above: Result Comment: Nega tive 0 - 19 Weak Positive 20 - 30 Moderate to Strong Positive >30 Performed By: #### 1 [id number] #### [facility] [address] [place] [address] IgA [Mass/Vol] 248 mg/dL Invalid Interpretation Code 6[address] [facility] Comment on above: Result Comment: Perf ormed at: [facility] [address] [id number] PhD Kirk Cm Performed By: #### 1 [id number] #### [facility] [address] [place] [address] tTG IgA Qn (S) <2 Invalid Interpretation Code 0-3 [facility] Comment on above: Result Comment: Nega tive 0 - 3 Weak Positive 4 - 10 Positive >10 Tissue Transglutaminase (tTG) has been identified as the endomysial antigen. Studies have demonstr- ated that endomysial IgA antibodies have over 99% specificity for gluten sensitive enteropathy. Performed By: #### 1 [id number] #### [facility] [address] [place] [address] tTG IgG Qn (S) 5 unit/mL Invalid Interpretation Code 0-5 [facility] Comment on above: Result Comment: Nega tive 0 - 5 Weak Positive 6 - 9 Positive >9 Performed By: #### 1 [id number] #### [facility] [address] [place] [address] CHEMISTRYOrdered By: SYSTEM SYSTEM on 12-04-2023 TSH Qn 1.76 m[IU]/L Normal 0.34 - 5.60 mcIU/mL Remisol Chem TSHon 12-04-2023 TSH Qn 1.76 m[IU]/L Normal 0.34-5.60 [facility] Comment on above: Performed By: #### 2 [id number] #### [facility] [address] [place] [address] CBC AUTO DIFFon 11-21-2021 BASO # 0.1 103/ul Normal 0.0-0.1 [facility] Comment on above: Performed By: #### C BC #### [facility] [address] [address] [address] Scooby Irvin Basophils/100 WBC (Bld) 0.5 % Normal 0.2-2.0 [facility] Comment on above: Performed By: #### C BC #### [facility] [address] [place] [address] Dr. Scooby Irvin EO # 0.0 103/ul Normal 0.0-0.7 [facility] Comment on above: Performed By: #### C BC #### [facility] [address] [place] [address] Dr. Scooby Irvin Eosinophils/100 WBC (Bld) 0.1 % Critically low 0.9-7.0 [facility] Comment on above: Performed By: #### C BC #### [facility] [address] [place] [address] Dr. Scooby Irvin Erythrocyte distribution width (RBC) [Ratio] 15.1 % Critically high 11.0-15.0 [facility] Comment on above: Performed By: #### C BC #### [facility] [address] [place] [address] Dr. Scooby Irvin Hematocrit (Bld) [Volume fraction] 39.4 % Normal 36.0-48.0 [facility] Comment on above: Performed By: #### C BC #### [facility] [address] [place] [address] Dr. Scooby Irvin Hemoglobin (Bld) [Mass/Vol] 12.6 g/dL Normal 12.0-16.0 [facility] Comment on above: Performed By: #### C BC #### [facility] [address] [place] [address] Dr. Scooby Irvin IG # 0.05 10e3/ul Critically high 0.00-0.03 [facility] Comment on above: Performed By: #### C BC #### [facility] [address] [place] [address] Dr. Scooby Irvin IG % 0.5 % Normal 0.0-0.5 [facility] Comment on above: Performed By: #### C BC #### [facility] [address] [place] [address] Dr. Scooby Irvin LYMPH # 1.3 103/ul Normal 1.2-3.8 [facility] Comment on above: Performed By: #### C BC #### [facility] [address] [place] [address] Dr. Scooby Irvin Lymphocytes/100 WBC (Bld) 13.2 % Critically low 20.5-60.0 [facility] Comment on above: Performed By: #### C BC #### [facility] [address] [place] [address] Dr. Scooby Irvin MANUAL DIFF REQ NO Normal [facility] Comment on above: Performed By: #### C BC #### [facility] [address] [place] [address] Dr. Scooby Irvin MCH (RBC) [Entitic mass] 30.0 pg Normal 26.7-34.0 [facility] Comment on above: Performed By: #### C BC #### [facility] [address] [place] [address] Dr. Scooby Irvin MCHC (RBC) [Mass/Vol] 32.0 g/dL Normal 29.9-35.2 [facility] Comment on above: Performed By: #### C BC #### [facility] [address] [place] [address] Dr. Scooby Irvin MCV (RBC) [Entitic vol] 93.8 fL Normal 81.0-99.0 [facility] Comment on above: Performed By: #### C BC #### [facility] [address] [place] [address] Dr. Scooby Irvin MONO # 0.7 103/ul Normal 0.3-0.8 [facility] Comment on above: Performed By: #### C BC #### [facility] [address] [place] [address] Dr. Scooby Irvin Monocytes/100 WBC (Bld) 7.2 % Normal 1.7-12.0 [facility] Comment on above: Performed By: #### C BC #### [facility] [address] [place] [address] Dr. Scooby Irvin NEUT # 7.5 103/ul Critically high 1.4-6.5 [facility] Comment on above: Performed By: #### C BC #### [facility] [address] [place] [address] Dr. Scooby Irvin Neutrophils/100 WBC (Bld) 78.5 % Critically high 43.0-75.0 [facility] Comment on above: Performed By: #### C BC #### [facility] [address] [place] [address] Dr. Scooby Irvin Platelet mean volume (Bld) [Entitic vol] 9.9 fL Normal 9.5-13.5 [facility] Comment on above: Performed By: #### C BC #### [facility] [address] [place] [address] Dr. Scooby Irvin PLT 230 103/ul Normal 150-450 [facility] Comment on above: Performed By: #### C BC #### [facility] [address] [place] [address] Dr. Scooby Irvin RBC 4.20 106/ul Normal 4.20-5.40 [facility] Comment on above: Performed By: #### C BC #### [facility] [address] [place] [address] Dr. Scooby Irvin WBC 9.5 103/ul Normal 4.0-11.0 [facility] Comment on above: Performed By: #### C BC #### [facility] [address] [place] [address] Dr. Scooby Irvin PROF 14(COMP METB)on 022 Albumin [Mass/Vol] 3.9 g/dL Normal 3.4-5.0 [facility] Comment on above: Performed By: #### C BC #### [facility] [address] [place] [address] Dr. Scooby Irvin Albumin/Globulin [Mass ratio] 1.0 {ratio} Normal [facility] Comment on above: Performed By: #### C BC #### [facility] [address] [place] [address] Dr. Scooby Irvin ALP [Catalytic activity/Vol] 87 U/L Normal 46-116 [facility] Comment on above: Performed By: #### C BC #### [facility] [address] [place] [address] Dr. Scooby Irvin ALT [Catalytic activity/Vol] 29 U/L Normal 14-59 [facility] Comment on above: Performed By: #### C BC #### [facility] [address] [address] [address] Scooby Irvin Anion gap [Moles/Vol] 14.1 mmol/L Normal [facility] Comment on above: Performed By: #### C BC #### [facility] [address] [address] [address] Scooby Irvin AST [Catalytic activity/Vol] 38 U/L Critically high 15-37 [facility] Comment on above: Performed By: #### C BC #### [facility] [address] [place] [address] Dr. Scooby Irvin Bilirubin [Mass/Vol] 0.5 mg/dL Normal 0.2-1.0 [facility] Comment on above: Performed By: #### C BC #### [facility] [address] [place] [address] Dr. Scooby Irvin Calcium [Mass/Vol] 9.2 mg/dL Normal 8.5-10.1 [facility] Comment on above: Performed By: #### C BC #### [facility] [address] [place] [address] Dr. Scooby Irvin Chloride [Moles/Vol] 102 mmol/L Normal 98-107 [facility] Comment on above: Performed By: #### C BC #### [facility] [address] [place] [address] Dr. Scooby Irvin CO2 [Moles/Vol] 25.7 mmol/L Normal 21.0-32.0 [facility] Comment on above: Performed By: #### C BC #### [facility] [address] [place] [address] Dr. Scooby Irvin Creatinine [Mass/Vol] 0.76 mg/dL Normal 0.55-1.02 [facility] Comment on above: Performed By: #### C BC #### [facility] [address] [place] [address] Dr. Scooby Irvin EGFR-AF AUSTRALIAN >60 Normal >=60 [facility] Comment on above: Performed By: #### C BC #### [facility] [address] [address] [address] Scooby Irvin EGFR-NON AF AUSTRALIAN >60 Normal >=60 [facility] Comment on above: Performed By: #### C BC #### [facility] [address] [address] [address] Scooby Irvin Globulin (S) [Mass/Vol] 3.8 g/dL Normal [facility] Comment on above: Performed By: #### C BC #### [facility] [address] [address] [address] Scooby Irvin Glucose [Mass/Vol] 104 mg/dL Normal 74-106 [facility] Comment on above: Performed By: #### C BC #### [facility] [address] [place] [address] Dr. Scooby Irvin Potassium [Moles/Vol] 4.8 mmol/L Normal 3.5-5.1 [facility] Comment on above: Performed By: #### C BC #### [facility] [address] [place] [address] Dr. Scooby Irvin Protein [Mass/Vol] 7.7 g/dL Normal 6.4-8.2 [facility] Comment on above: Performed By: #### C BC #### [facility] [address] [place] [address] Dr. Scooby Irvin Sodium [Moles/Vol] 137 mmol/L Normal 136-145 [facility] Comment on above: Performed By: #### C BC #### [facility] [address] [place] [address] Dr. Scooby Irvin Urea nitrogen [Mass/Vol] 9.0 mg/dL Normal 7.0-18.0 [facility] Comment on above: Performed By: #### C BC #### [facility] [address] [place] [address] Dr. Scooby Irvin Urea nitrogen/Creatinine [Mass ratio] 11.8 mg/mg Normal [facility] Comment on above: Performed By: #### C BC #### [facility] [address] [address] [address] Scooby Irvin LIPID PROFILEon 09-27-2021 CHOL-HDL RATIO NORM SEE BELOW Normal [facility] Comment on above: Result Comment: 3.3 - 4.4 LOW RISK 4.4 - 7.1 AVERAGE RISK 7.1 - 11.0 MODERATE RISK >11.0 HIGH RISK Performed By: #### C MP, LIPID #### [facility] [address] [address] [address] Scooby Irvin Cholesterol [Mass/Vol] 235 mg/dL Critically high <=200 [facility] Comment on above: Performed By: #### C MP, LIPID #### [facility] [address] [address] [address] Scooby Irvin Cholesterol in HDL [Mass/Vol] 65 mg/dL Critically high 40-60 [facility] Comment on above: Performed By: #### C MP, LIPID #### [facility] [address] [address] [address] Scooby Irvin Cholesterol in LDL [Mass/Vol] 156.8 mg/dL Normal [facility] Comment on above: Performed By: #### C MP, LIPID #### [facility] [address] [address] [address] Scooby Irvin Cholesterol.total/Ch olesterol in HDL [Mass ratio] 3.6 {ratio} Normal [facility] Comment on above: Performed By: #### C MP, LIPID #### [facility] [address] [address] [address] Scooby Irvin HDL NORMAL > or = 60 mg/dl - LO W CARDIOVASCULAR RISK <40 mg/dl - HIGH CARDIOVASCULAR RISK Normal [facility] Comment on above: Performed By: #### C MP, LIPID #### [facility] [address] [address] [address] Scooby Irvin LDL CALC NORMAL SEE BELOW Normal [facility] Comment on above: Result Comment: <100 mg/dl OPTIMAL 100 - 129 mg/dl NEAR OR ABOVE OPTIMAL 130 - 159 mg/dl BORDERLINE HIGH 160 - 189 mg/dl HIGH >190 mg/dl VERY HIGH Performed By: #### C MP, LIPID #### [facility] [address] [place] [address] Dr. Scooby Irvin Triglyceride [Mass/Vol] 66 mg/dL Normal <=150 [facility] Comment on above: Performed By: #### C MP, LIPID #### [facility] [address] [address] [address] Scooby Irvin VLDL CALC 13.2 mg/dL Normal [facility] Comment on above: Performed By: #### C MP, LIPID #### [facility] [address] [place] [address] Dr. Scooby Irvin PROF 14(COMP METB)on 022 Albumin [Mass/Vol] 3.9 g/dL Normal 3.4-5.0 [facility] Comment on above: Performed By: #### C MP, LIPID #### [facility] [address] [place] [address] Dr. Scooby Irvin Albumin/Globulin [Mass ratio] 1.1 {ratio} Normal [facility] Comment on above: Performed By: #### C MP, LIPID #### [facility] [address] [place] [address] Dr. Scooby Irvin ALP [Catalytic activity/Vol] 87 U/L Normal 46-116 [facility] Comment on above: Performed By: #### C MP, LIPID #### [facility] [address] [place] [address] Dr. Scooby Irvin ALT [Catalytic activity/Vol] 27 U/L Normal 14-59 [facility] Comment on above: Performed By: #### C MP, LIPID #### [facility] [address] [place] [address] Dr. Scooby Irvin Anion gap [Moles/Vol] 16.9 mmol/L Normal [facility] Comment on above: Performed By: #### C MP, LIPID #### [facility] [address] [place] [address] Dr. Scooby Irvin AST [Catalytic activity/Vol] 21 U/L Normal 15-37 [facility] Comment on above: Performed By: #### C MP, LIPID #### [facility] [address] [place] [address] Dr. Scooby Irvin Bilirubin [Mass/Vol] 0.4 mg/dL Normal 0.2-1.0 [facility] Comment on above: Performed By: #### C MP, LIPID #### [facility] [address] [address] [address] Scooby Irvin Calcium [Mass/Vol] 8.7 mg/dL Normal 8.5-10.1 [facility] Comment on above: Performed By: #### C MP, LIPID #### [facility] [address] [place] [address] Dr. Scooby Irvin Chloride [Moles/Vol] 102 mmol/L Normal 98-107 [facility] Comment on above: Performed By: #### C MP, LIPID #### [facility] [address] [place] [address] Dr. Scooby Irvin CO2 [Moles/Vol] 22.0 mmol/L Normal 21.0-32.0 [facility] Comment on above: Performed By: #### C MP, LIPID #### [facility] [address] [place] [address] Dr. Scooby Irvin Creatinine [Mass/Vol] 0.73 mg/dL Normal 0.55-1.02 [facility] Comment on above: Performed By: #### C MP, LIPID #### [facility] [address] [place] [address] Dr. Scooby Irvin EGFR-AF AUSTRALIAN >60 Normal >=60 [facility] Comment on above: Performed By: #### C MP, LIPID #### [facility] [address] [place] [address] Dr. Scooby Irvin EGFR-NON AF AUSTRALIAN >60 Normal >=60 [facility] Comment on above: Performed By: #### C MP, LIPID #### [facility] [address] [place] [address] Dr. Scooby Irvin Globulin (S) [Mass/Vol] 3.7 g/dL Normal [facility] Comment on above: Performed By: #### C MP, LIPID #### [facility] [address] [address] [address] Scooby Irvin Glucose [Mass/Vol] 105 mg/dL Normal 74-106 [facility] Comment on above: Performed By: #### C MP, LIPID #### [facility] [address] [place] [address] Dr. Scooby Irvin Potassium [Moles/Vol] 3.9 mmol/L Normal 3.5-5.1 [facility] Comment on above: Performed By: #### C MP, LIPID #### [facility] [address] [place] [address] Dr. Scooby Irvin Protein [Mass/Vol] 7.6 g/dL Normal 6.4-8.2 [facility] Comment on above: Performed By: #### C MP, LIPID #### [facility] [address] [place] [address] Dr. Scooby Irvin Sodium [Moles/Vol] 137 mmol/L Normal 136-145 [facility] Comment on above: Performed By: #### C MP, LIPID #### [facility] [address] [place] [address] Dr. Scooby Irvin Urea nitrogen [Mass/Vol] 11.0 mg/dL Normal 7.0-18.0 [facility] Comment on above: Performed By: #### C MP, LIPID #### [facility] [address] [place] [address] Dr. Scooby Irvin Urea nitrogen/Creatinine [Mass ratio] 15.1 mg/mg Normal [facility] Comment on above: Performed By: #### C MP, LIPID #### [facility] [address] [place] [address] Dr. Scooby Irvin TSHon 09-27-2021 TSH 2.198 uIU/mL Normal 0.358-3.74 0 [facility] Comment on above: Performed By: #### T SH #### [facility] [address] [place] [address] Dr. Scooby Irvin [facility] SARS-CoV-2 (COVID-19) RNA ADELITA+probe Ql (Unsp spec) Not detected Normal NOT DETECTED [facility] Comment on above: Result Comment: This test is not yet approved or cleared by the [place] FDA. When there are no FDA-approved or cleared tests available, and other criteria are met, FDA can make tests available under an emergency access mechanism called an Emergency Use Authorization (EUA). The EUA for this test is supported by the [employer] of Health and Human Service's (HHS's) declaration [...] Performed By: #### C BC #### [facility] [address] [address] [address] Scooby Irvin TSHon 06-22-2021 TSH 2.326 uIU/mL Normal 0.358-3.74 0 [facility] Comment on above: Performed By: #### C BC #### [facility] [address] [address] [address] Scooby Irvin TSH RANGE SEE BELOW Normal [facility] Comment on above: Result Comment: <0.3 4 UIU/ml HYPERTHYROID 0.34-5.60 UIU/ml EUTHYROID >5.60 UIU/ml HYPOTHYROID Performed By: #### C BC #### [facility] [address] [place], [place] [address] Dr. Scooby Irvin ABO/Rh Retypeon 05-31-2021 ABO/RH Recheck Result Positive Normal [facility] Comment on above: Result Comment: PERF ORMED BY: [facility] [place] [address] PATHOLOGIST ASTRONAUTICAL ENGINEER TRICIA Yin 05-31-2021 L -------- -------- Specimen: Received: 05/31/21 Status: LIDIA Pineda Num: [id number] Spec Type: Surgical Subm Dr: Luis Gutierrez DO Tissues: A Parathyroid Gland (R/O PARATHYROID) B THYROID - Lobe (R SUBSTERNAL THYROID) Procedures: HE Stain/8, Gross/Micro L5, Gross/Micro L4 -------- Patient Age/Sex Location Account Attending Physician -------- Alexandra Cervantes 71/F [place] [id number] Luis Gutierrez DO -------- SPEC NUM: [id number] RECD: 05/31/21 STATUS: LIDIA PINEDA NUM: [id number] KATHY: 05/31/21- SUBM DR: Luis Gutierrez,DO ENTERED: 05/31/[address] [facility] [address]: SPEC TYPE: Surgical DEPT: S ORDERED: [...] Sectioning of the sutured nodule -------- Specimen: [id number] Received: 05/31/21 Status: LIDIA Pineda Num: [id number] Spec Type: Surgical Subm Dr: Luis Gutierrez DO Tissues: A Parathyroid Gland (R/O PARATHYROID) B THYROID - Lobe (R SUBSTERNAL THYROID) Procedures: HE Stain/8, Gross/Micro L5, Gross/Micro L4 -------- Patient: Alexandra Cervantes [id number] (Continued) -------- Specimen: Received: 05/31/21 (Continued) Gross Description (Continued) Signed (signature on file) Tricia Oshea MD 06/01/21 1913 -------- Specimen: Received: 05/31/21 Status: LIDIA Pineda Num: [id number] Spec Type: Surgical Subm Dr: Luis Gutierrez DO Tissues: A Parathyroid Gland (R/O PARATHYROID) B THYROID - Lobe (R SUBSTERNAL THYROID) Procedures: HE Stain/8, Gross/Micro L5, Gross/Micro L4 -------- Patient: Alexandra Cervantes [id number] (Continued) -------- Specimen: [id number] Received: 05/31/21 (Continued) Gross Description (Continued) demonstrates [...] microscopic findings support the above pathologic diagnosis. 07970, 26025, [address]70 -------- -------- Specimen: [id number] Received: (more content not included)... Normal [facility] LeukoReduced RBCon 2 LeukoReduced RBC READY Normal [facility] Type and Screenon 05-31-2021 ABO and Rh group Nom (Bld) Blood group O Rh(D) positive Normal [facility] Comment on above: Order Comment: Trans fuse now? N Result Comment: PERF ORMED BY: [place] [address] PATHOLOGIST ASTRONAUTICAL ENGINEER TRICIA OSHEA M.D. Basic Metabolic Panelon 05-12 Calcium [Mass/Vol] 9.5 mg/dL Normal 8.2-10.2 [facility] Comment on above: Result Comment: PERF ORMED BY: [facility] [address] [place] [address] PATHOLOGIST ASTRONAUTICAL ENGINEER TRICIA OSHEA M.D. Performed By: #### C BC, BMP #### [facility] [address] [place] [address] [place] Chloride [Moles/Vol] 105 mmol/L Normal 95-114 [place] Comment on above: Performed By: #### C BC, BMP #### [facility] [address] [address] [place] CO2 [Moles/Vol] 23.0 mmol/L Normal 22.0-30.0 [facility] Comment on above: Performed By: #### C BC, BMP #### [facility] [address] [address] [place] Creatinine [Mass/Vol] 0.66 mg/dL Normal 0.44-1.03 [facility] Comment on above: Performed By: #### C BC, BMP #### [facility] [address] [address] [place] Estimated GFR ( Traci > 60 Normal [facility] Comment on above: Result Comment: GFR estimated reference range: According to KDOQI guidelines, <60 ml/min/1.73m2 is sufficient to diagnose a patient with chronic kidney disease. Performed By: #### C BC, BMP #### [address] Estimated GFR (Non- Am > 60 Normal [facility] Comment on above: Performed By: #### C BC, BMP #### [facility] [address] Glucose [Mass/Vol] 89 mg/dL Normal 70-100 [facility] Comment on above: Result Comment: [facility] Glucose Reference Range is dependent on time and content of last meal. Glucose of more than 200 mg/dL in a nonstressed, ambulatory subject supports the diagnosis of Diabetes Mellitus. ADA recommended reference range Performed By: #### C KELSEY, BMP #### [address] Potassium [Moles/Vol] 4.0 mmol/L Normal 3.5-5.1 [facility] Comment on above: Performed By: #### C KELSEY, BMP #### [address] Sodium [Moles/Vol] 137 mmol/L Normal 136-146 [facility] Comment on above: Performed By: #### C KELSEY, BMP #### [address] Urea nitrogen [Mass/Vol] 10 mg/dL Normal 9-23 [facility] Comment on above: Performed By: #### C KELSEY, BMP #### [place] [address] [place] Basophils Auto (Bld) [#/Vol] Ordered By: Luis Gutierrez on 05-26-2021 Basophils (Bld) [#/Vol] 0.1 10*3/uL 0.0-0.2 [facility] Basophils/100 WBC Auto (Bld) Ordered By: Lusi Gutierrez on 05-26-2021 Basophils/100 WBC (Bld) 0.9 % [facility] Blood hemoglobin measurement (mass/volume)Ordered By: Luis Gutierrez on 04-15-2022 Hemoglobin (Bld) [Mass/Vol] 12.4 g/dL 11.8-15.4 [facility] Blood leukocytes automated c ount (number/volume)Ordered By: Luis Gutierrez on 05-26-2021 WBC (Bld) [#/Vol] 8.8 10*3/uL 4.5-11.0 [facility] COVID-19 FRon 05-26-2021 SARS-CoV-2 (COVID-19) RNA ADELITA+probe Ql (Unsp spec) Negative Normal Negative [facility] Comment on above: Order Comment: Healt hcare Worker?: N Result Comment: Testing for SARS-CoV-2 by RT-PCR This test was developed and its performance characteristics determined by [employer] and validated at the [facility]. This test has not been [...] is terminated or revoked sooner. PERFORMED BY: [place] [address] PATHOLOGIST ASTRONAUTICAL ENGINEER TRICIA OSHEA M.D. Performed By: #### C OVID 19 [facility] [place] [place] #### [address] COVID-19 Positive/NegativeOr dered By: Luis Gutierrez on 05-26-2021 SARS-CoV-2 (COVID-19) N gene ADELITA+probe Ql (Resp) Negative Negative [facility] Comment on above: Testing for SARS-CoV -2 by RT-PCRThis test was developed and its performance characteristics determined by [employer] ([employer]) and validated at the [facility]. This test has not been [...] 05-26-2021 Calcium [Mass/Vol] 9.4 mg/dL Normal 8.2-10.2 [facility] Comment on above: Performed By: #### C A, TSH3, PTH #### [address] Complete Blood Count Auto Di ffon 05-26-2021 Basophils (Bld) [#/Vol] 0.1 10*3/uL Normal 0.0-0.2 [facility] Comment on above: Result Comment: PERF ORMED BY: [place] [address] PATHOLOGIST ASTRONAUTICAL ENGINEER TRICIA OSHEA M.D. Performed By: #### C BC, BMP #### [address] Basophils/100 WBC (Bld) 0.9 % Normal . [facility] Comment on above: Performed By: #### C BC, BMP #### [address] Eosinophils (Bld) [#/Vol] 0.0 10*3/uL Normal 0.0-0.45 [facility] Comment on above: Performed By: #### C BC, BMP #### [address] Eosinophils/100 WBC (Bld) 0.2 % Normal . [facility] Comment on above: Performed By: #### C BC, BMP #### [address] Erythrocyte distribution width (RBC) [Ratio] 16.1 % High 11.9-15.3 [facility] Comment on above: Performed By: #### C BC, BMP #### [address] Hematocrit (Bld) [Volume fraction] 37.5 % Normal 34.0-46.4 [facility] Comment on above: Performed By: #### C BC, BMP #### [address] Hemoglobin (Bld) [Mass/Vol] 12.4 g/dL Normal 11.8-15.4 [facility] Comment on above: Performed By: #### C BC, BMP #### [address] Lymphocytes (Bld) [#/Vol] 1.4 10*3/uL Normal 1.00-4.8 [facility] Comment on above: Performed By: #### C BC, BMP #### [address] Lymphocytes/100 WBC (Bld) 15.8 % Normal . [facility] Comment on above: Performed By: #### C BC, BMP #### [address] MCH (RBC) [Entitic mass] 29.2 pg Normal 24.7-34.3 [facility] Comment on above: Performed By: #### C BC, BMP #### [address] MCV (RBC) [Entitic vol] 88.3 fL Normal 80-100 [facility] Comment on above: Performed By: #### C BC, BMP #### [address] Mean Corpuscular HGB Conc 33.1 g/dL Normal 32.0-35.0 [facility] Comment on above: Performed By: #### C BC, BMP #### [address] Monocytes (Bld) [#/Vol] 0.7 10*3/uL Normal 0.0-0.8 [facility] Comment on above: Performed By: #### C BC, BMP #### [address] Monocytes/100 WBC (Bld) 7.7 % Normal . [facility] Comment on above: Performed By: #### C KELSEY, BMP #### [address] Neutrophils (Bld) [#/Vol] 6.7 10*3/uL Normal 1.8-7.7 [facility] Comment on above: Performed By: #### C KELSEY, BMP #### [address] Neutrophils/100 WBC (Bld) 75.4 % Normal . [facility] Comment on above: Performed By: #### C KELSEY, BMP #### [address] Nucleated RBC/100 WBC (Bld) [Ratio] 0.1 % Normal 0-0.5 [facility] Comment on above: Performed By: #### C KELSEY, BMP #### [address] Platelet mean volume (Bld) [Entitic vol] 8.6 fL Normal 6.3-10.7 [facility] Comment on above: Performed By: #### C BC, BMP #### [place] [address] [place] Platelets (Bld) [#/Vol] 241 10*3/uL Normal 150-450 [facility] Comment on above: Performed By: #### C BC, BMP #### [place] [address] [place] RBC (Bld) [#/Vol] 4.24 10*6/uL Normal 3.60-5.00 [facility] Comment on above: Performed By: #### C BC, BMP #### [facility] [address] WBC (Bld) [#/Vol] 8.8 10*3/uL Normal 4.5-11.0 [facility] Comment on above: Performed By: #### C BC, BMP #### [facility] [address] Creatinine and Glomerular fi ltration rate.predicted panel (S/P/Bld)Ordered By: Luis Gutierrez on 05-26-2021 Creatinine [Mass/Vol] 0.66 mg/dL 0.44-1.03 [facility] ECG 12 lead ECGon 05-26-2021 ECG 12 lead ECG [facility] [place] [address] [place] [address] Electrocardiograph Report Signed Patient: Alexandra Cervantes MR#: [id number] 2 : 1950 Acct:[id number] Age/Sex: 71 / F ADM Date: 05/26/21 Loc: Room: Type: [facility] Attending Dr: Luis Gutierrez DO Ordering Provider: [...] By Fredi Haines DO 05/27 0848 Normal [facility] Eosinophils Auto (Bld) [#/Vo l]Ordered By: Luis Gutierrez on 05-26-2021 Eosinophils (Bld) [#/Vol] 0.0 10*3/uL 0.0-0.45 [facility] Eosinophils/100 WBC Auto (Bl d)Ordered By: Luis Gutierrez on 05-26-2021 Eosinophils/100 WBC (Bld) 0.2 % [facility] Erythrocyte distribution wid th Auto (RBC) [Ratio]Ordered By: Luis Gutierrez on 05-26-2021 Erythrocyte distribution width (RBC) [Ratio] 16.1 % 11.9-15.3 [facility] Estimated glomerular filtrat ion rate (GFR) non- AmericanOrdered By: Luis Gutierrez on 05-26-2021 GFR/1.73 sq M.predicted among non-blacks MDRD (S/P/Bld) [Vol rate/Area] > 60 mL/Min [facility] Hematocrit Auto (Bld) [Volum e fraction]Ordered By: Luis Gutierrez on 05-26-2021 Hematocrit (Bld) [Volume fraction] 37.5 % 34.0-46.4 [facility] Laboratory - Hematology and Cell countsOrdered By: Luis Gutierrez on 05-26-2021 Nucleated RBC/100 WBC (Bld) [Ratio] 0.1 % 0-0.5 [facility] Lymphocytes Auto (Bld) [#/Vo l]Ordered By: Luis Gutierrez on 05-26-2021 Lymphocytes (Bld) [#/Vol] 1.4 10*3/uL 1.00-4.8 [facility] Lymphocytes/100 WBC Auto (Bl d)Ordered By: Luis Gutierrez on 05-26-2021 Lymphocytes/100 WBC (Bld) 15.8 % [facility] MCH Auto (RBC) [Entitic mass ]Ordered By: Luis Gutierrez on 05-26-2021 MCH (RBC) [Entitic mass] 29.2 pg 24.7-34.3 [facility] MCHC Auto (RBC) [Mass/Vol]Or dered By: Luis Gutierrez on 05-26-2021 MCHC (RBC) [Mass/Vol] 33.1 g/dL 32.0-35.0 [facility] MCV Auto (RBC) [Entitic vol] Ordered By: Luis Gutierrez on 05-26-2021 MCV (RBC) [Entitic vol] 88.3 fL 80-100 [facility] Monocytes Auto (Bld) [#/Vol] Ordered By: Luis Gutierrez on 05-26-2021 Monocytes (Bld) [#/Vol] 0.7 10*3/uL 0.0-0.8 [facility] Monocytes/100 WBC Auto (Bld) Ordered By: Luis Gutierrez on 05-26-2021 Monocytes/100 WBC (Bld) 7.7 % [facility] Neutrophils Auto (Bld) [#/Vo l]Ordered By: Luis Gutierrez on 05-26-2021 Neutrophils (Bld) [#/Vol] 6.7 10*3/uL 1.8-7.7 [facility] Neutrophils/100 WBC Auto (Bl d)Ordered By: Luis Gutierrez on 05-26-2021 Neutrophils/100 WBC (Bld) 75.4 % [facility] No Panel InformationOrdered By: Luis Gutierrez on 05-26-2021 Estimated GFR () > 60 mL/Min [facility] Comment on above: GFR estimated refere nce range: According to KDOQI guidelines, <60 ml/min/1.73m2 is sufficient to diagnose a patient with chronic kidney disease. Pharmacy Creatinine Clearance (Chem N/A [facility] Parathyroid Hormone Intacton 05-26-2021 Parathyroid Hormone Intact 31.2 pg/mL Normal 12-88 [facility] Comment on above: Result Comment: PERF ORMED BY: [place] [address] PATHOLOGIST ASTRONAUTICAL ENGINEER TRICIA OSHEA M.D. Performed By: #### C BC, BMP #### [address] Platelet mean volume Auto (B ld) [Entitic vol]Ordered By: Luis Gutierrez on 05-26-2021 Platelet mean volume (Bld) [Entitic vol] 8.6 fL 6.3-10.7 [facility] Platelets Auto (Bld) [#/Vol] Ordered By: Luis Gutierrez on 05-26-2021 Platelets (Bld) [#/Vol] 241 10*3/uL 150-450 [facility] RBC Auto (Bld) [#/Vol]Ordere d By: Luis Gutierrez on 05-26-2021 RBC (Bld) [#/Vol] 4.24 10*6/uL 3.60-5.00 [facility] Serum or plasma calcium joseph urement (mass/volume)Ordered By: Luis Gutierrez on 05-26-2021 Calcium [Mass/Vol] 9.4 mg/dL 8.2-10.2 [facility] Serum or plasma chloride liv surement (moles/volume)Ordered By: Luis Gutierrez on 05-26-2021 Chloride [Moles/Vol] 105 mmol/L 95-114 [place] Serum or plasma glucose joseph urement (mass/volume)Ordered By: Luis Gutierrez on 05-26-2021 Glucose [Mass/Vol] 89 mg/dL 70-100 [facility] Comment on above: ADA recommended refe rence rangeRandom Glucose Reference Range is dependent on time and content of last meal. Glucose of more than 200 mg/dL in a nonstressed, ambulatory subject supports the diagnosis of Diabetes Mellitus. Serum or plasma intact parat hyroid hormone measurement (mass/volume)Ordered By: Luis Gutierrez on 05-26-2021 Parathyrin.intact [Mass/Vol] 31.2 pg/mL 12-88 [facility] Serum or plasma potassium me asurement (moles/volume)Ordered By: Luis Gutierrez on 05-26-2021 Potassium [Moles/Vol] 4.0 mmol/L 3.5-5.1 [facility] Serum or plasma sodium measu rement (moles/volume)Ordered By: Luis Gutierrez on 05-26-2021 Sodium [Moles/Vol] 137 mmol/L 136-146 [facility] Serum or plasma total carbon dioxide measurement (moles/volume)Ordered By: Luis Gutierrez on 05-26-2021 CO2 [Moles/Vol] 23.0 mmol/L 22.0-30.0 [facility] Serum or plasma urea nitroge n measurement (mass/volume)Ordered By: Luis Gutierrez on 05-26-2021 Urea nitrogen [Mass/Vol] 10 mg/dL 9- [facility] TSH DL <= 0.005 mIU/L QnOrde red By: Luis Gutierrez on 05-26-2021 TSH Qn 0.86 m[IU]/L 0.45-5.33 [facility] Thyroid Stimulating Hormoneo n 05-26-2021 TSH Qn 0.86 m[IU]/L Normal 0.45-5.33 [facility] Comment on above: Performed By: #### C A, TSH3, PTH #### [facility] [address] MG MAMM SCREEN 3D [place]ES CADon 05-22-2021 MG MAMM SCREEN 3D [place] CAD Patient: ALEXANDRA CERVANTES Exam Date: 05/22/2021 : 1950 Gender:F Ordering : DR LAURITA MORALES M.D. Admission #: [id number] Family : Order #: [id number] CLICK HERE TO VIEW EXAM RADIOLOGY REPORT [...] None Family Cancers None LOCATION: [facility] BREAST COMPOSITION: Scattered areas fibroglandular density. [...] MD on 05/22/2021 at 12:06 Normal [facility] CT Chest w/Contraston 2021 CT Chest w/Contrast Please see CT neck r eport dated: 05/17/2021. Report reported and signed by Fuentes Lion on 05/22/2021 1528 Normal [facility] CT Soft Tissue Neck w/ Contr [...] by Fuentes Lion on 05/22/2021 1528 Normal [facility] Specialist [place] esophaguson 05-04-2021 DE esophagus [facility] Main [place] [id number] Fluoroscopy Report Signed Patient: Alexandra Cervantes MR#: [id number] 2 : 1950 Acct:[id number] Age/Sex: 71 / F ADM Date: 05/04/21 Loc: XD Room: Type: [facility] Attending Dr: Cy Sears MD Ordering Provider: [...] Kitchen Jr., M.D.05/04/2021 3:37 PM Dictation Location: [place] [address] Transcribed By: [facility] 05/04/211536 Dictated By: Selvin Kitchen Jr, MD 05/04/211531 Signed By: 05/04/211536 [facility] CBC AUTO DIFFon 04-20-2021 BASO # 0.1 103/ul Normal 0.0-0.1 [facility] Comment on above: Performed By: #### C BC #### [facility] [address] [address] [address] Scooby Irvin Basophils/100 WBC (Bld) 0.4 % Normal 0.2-2.0 [facility] Comment on above: Performed By: #### C BC #### [facility] [address] [address] [address] Scooby Irvin EO # 0.0 103/ul Normal 0.0-0.7 [facility] Comment on above: Performed By: #### C BC #### [facility] [address] [place] [address] Dr. Scooby Irvin Eosinophils/100 WBC (Bld) 0.2 % Critically low 0.9-7.0 [facility] Comment on above: Performed By: #### C BC #### [facility] [address] [place] [address] Dr. Scooby Irvin Erythrocyte distribution width (RBC) [Ratio] 16.7 % Critically high 11.0-15.0 [facility] Comment on above: Performed By: #### C BC #### [facility] [address] [place] [address] Dr. Scooby Irvin Hematocrit (Bld) [Volume fraction] 37.6 % Normal 36.0-48.0 [facility] Comment on above: Performed By: #### C BC #### [facility] [address] [place] [address] Dr. Scooby Irvin Hemoglobin (Bld) [Mass/Vol] 12.0 g/dL Normal 12.0-16.0 [facility] Comment on above: Performed By: #### C BC #### [facility] [address] [place] [address] Dr. Scooby Irvin IG # 0.02 10e3/ul Normal 0.00-0.03 [facility] Comment on above: Performed By: #### C BC #### [facility] [address] [place] [address] Dr. Scooby Irvin IG % 0.2 % Normal 0.0-0.5 [facility] Comment on above: Performed By: #### C BC #### [facility] [address] [place] [address] Dr. Scooby Irvin LYMPH # 1.6 103/ul Normal 1.2-3.8 [facility] Comment on above: Performed By: #### C BC #### [facility] [address] [place] [address] Dr. Scooby Irvin Lymphocytes/100 WBC (Bld) 13.6 % Critically low 20.5-60.0 [facility] Comment on above: Performed By: #### C BC #### [facility] [address] [place] [address] Dr. Scooby Irvin MANUAL DIFF REQ NO Normal [facility] Comment on above: Performed By: #### C BC #### [facility] [address] [place] [address] Dr. Scooby Irvin MCH (RBC) [Entitic mass] 28.6 pg Normal 26.7-34.0 [facility] Comment on above: Performed By: #### C BC #### [facility] [address] [place] [address] Dr. Scooby Irvin MCHC (RBC) [Mass/Vol] 31.9 g/dL Normal 29.9-35.2 [facility] Comment on above: Performed By: #### C BC #### [facility] [address] [place] [address] Dr. Scooby Irvin MCV (RBC) [Entitic vol] 89.5 fL Normal 81.0-99.0 [facility] Comment on above: Performed By: #### C BC #### [facility] [address] [place] [address] Dr. Scooby Irvin MONO # 0.7 103/ul Normal 0.3-0.8 [facility] Comment on above: Performed By: #### C BC #### [facility] [address] [place] [address] Dr. Scooby Irvin Monocytes/100 WBC (Bld) 5.8 % Normal 1.7-12.0 [facility] Comment on above: Performed By: #### C BC #### [facility] [address] [place] [address] Dr. Scooby Irvin NEUT # 9.1 103/ul Critically high 1.4-6.5 [facility] Comment on above: Performed By: #### C BC #### [facility] [address] [place] [address] Dr. Scooby Irvin Neutrophils/100 WBC (Bld) 79.8 % Critically high 43.0-75.0 [facility] Comment on above: Performed By: #### C BC #### [facility] [address] [place] [address] Dr. Scooby Irvin Platelet mean volume (Bld) [Entitic vol] 10.2 fL Normal 9.5-13.5 [facility] Comment on above: Performed By: #### C BC #### [facility] [address] [place] [address] Dr. Scooby Irvin PLT 217 103/ul Normal 150-450 [facility] Comment on above: Performed By: #### C BC #### [facility] [address] [place] [address] Dr. Scooby Irvin RBC 4.20 106/ul Normal 4.20-5.40 [facility] Comment on above: Performed By: #### C BC #### [facility] [address] [place] [address] Dr. Scooby Irvin WBC 11.4 103/ul Critically high 4.0-11.0 [facility] Comment on above: Performed By: #### C BC #### [facility] [address] [place] [address] Dr. Scooby Irvin PROF 14(COMP METB)on 022 Albumin [Mass/Vol] 3.9 g/dL Normal 3.5-5.0 [facility] Comment on above: Performed By: #### C MP #### [facility] [address] [place] [address] Dr. Scooby Irvin Albumin/Globulin [Mass ratio] 1.1 {ratio} Normal [facility] Comment on above: Performed By: #### C MP #### [facility] [address] [place] [address] Dr. Scooby Irvin ALP [Catalytic activity/Vol] 72 U/L Normal 38-126 [facility] Comment on above: Performed By: #### C MP #### [facility] [address] [place] [address] Dr. Scooby Irvin ALT [Catalytic activity/Vol] 23 U/L Normal 9-52 [facility] Comment on above: Performed By: #### C MP #### [facility] [address] [place] [address] Dr. Scooby Irvin Anion gap [Moles/Vol] 10.2 mmol/L Normal [facility] Comment on above: Performed By: #### C MP #### [facility] [address] [place] [address] Dr. Scooby Irvin AST [Catalytic activity/Vol] 20 U/L Normal 14-36 [facility] Comment on above: Performed By: #### C MP #### [facility] [address] [place] [address] Dr. Scooby Irvin Bilirubin [Mass/Vol] 0.5 mg/dL Normal 0.2-1.3 [facility] Comment on above: Performed By: #### C MP #### [facility] [address] [place] [address] Dr. Scooby Irvin Calcium [Mass/Vol] 8.8 mg/dL Normal 8.4-10.2 [facility] Comment on above: Performed By: #### C MP #### [facility] [address] [place] [address] Dr. Scooby Irvin Chloride [Moles/Vol] 104 mmol/L Normal 98-107 [facility] Comment on above: Performed By: #### C MP #### [facility] [address] [place] [address] Dr. Scooby Ivrin CO2 [Moles/Vol] 28.0 mmol/L Normal 22.0-30.0 [facility] Comment on above: Performed By: #### C MP #### [facility] [address] [place] [address] Dr. Scooby Irvin Creatinine [Mass/Vol] 0.87 mg/dL Normal 0.52-1.04 [facility] Comment on above: Performed By: #### C MP #### [facility] [address] [place] [address] Dr. Scooby Irvin EGFR-AF AUSTRALIAN >60 Normal >=60 [facility] Comment on above: Performed By: #### C MP #### [facility] [address] [place] [address] Dr. Scooby Irvin EGFR-NON AF AUSTRALIAN >60 Normal >=60 [facility] Comment on above: Performed By: #### C MP #### [facility] [address] [address] [address] Scooby Irvin Globulin (S) [Mass/Vol] 3.5 g/dL Normal [facility] Comment on above: Performed By: #### C MP #### [facility] [address] [address] [address] Scooby Irvin Glucose [Mass/Vol] 93 mg/dL Normal 74-106 [facility] Comment on above: Performed By: #### C MP #### [facility] [address] [address] [address] Scooby Irvin Potassium [Moles/Vol] 4.2 mmol/L Normal 3.4-5.0 [facility] Comment on above: Performed By: #### C MP #### [facility] [address] [place] [address] Dr. Scooby Irvin Protein [Mass/Vol] 7.4 g/dL Normal 6.1-8.2 [facility] Comment on above: Performed By: #### C MP #### [facility] [address] [address] [address] Scooby Irvin Sodium [Moles/Vol] 138 mmol/L Normal 137-145 [facility] Comment on above: Performed By: #### C MP #### [facility] [address] [place] [address] Dr. Scooby Irvin Urea nitrogen [Mass/Vol] 15.0 mg/dL Normal 7.0-17.0 [facility] Comment on above: Performed By: #### C MP #### [facility] [address] [address] [address] Scooby Irvin Urea nitrogen/Creatinine [Mass ratio] 17.2 mg/mg Normal [facility] Comment on above: Performed By: #### C MP #### [facility] [address] [address] [address] Scooby Irvin PET CT SKULL BASE [...] by: FUENTES BARRETO Date: 2021-04-07 08:[address] [facility] [address] LUNG CANCER SCREENINGon 0 03-23-2021 CT [...] FUENTES BARRETO Date: 2021-03-23 09:57 Normal [facility] CBC AUTO DIFFon 03-09-2021 BASO # 0.1 103/ul Normal 0.0-0.1 [facility] Comment on above: Performed By: #### C BC #### [facility] [address] [address] [address] Scooby Irvin Basophils/100 WBC (Bld) 1.2 % Normal 0.2-2.0 [facility] Comment on above: Performed By: #### C BC #### [facility] [address] [address] [address] Scooby Irvin EO # 0.1 103/ul Normal 0.0-0.7 [facility] Comment on above: Performed By: #### C BC #### [facility] [address] [address] [address] Scooby Irvin Eosinophils/100 WBC (Bld) 1.4 % Normal 0.9-7.0 [facility] Comment on above: Performed By: #### C BC #### [facility] [address] [address] [address] Scooby Irvin Erythrocyte distribution width (RBC) [Ratio] 16.3 % Critically high 11.0-15.0 [facility] Comment on above: Performed By: #### C BC #### [facility] [address] [place] [address] Dr. Scooby Irvin Hematocrit (Bld) [Volume fraction] 39.6 % Normal 36.0-48.0 [facility] Comment on above: Performed By: #### C BC #### [facility] [address] [place] [address] Dr. Scooby Irvin Hemoglobin (Bld) [Mass/Vol] 12.6 g/dL Normal 12.0-16.0 [facility] Comment on above: Performed By: #### C BC #### [facility] [address] [place] [address] Dr. Scooby Irvin IG # 0.01 10e3/ul Normal 0.00-0.03 [facility] Comment on above: Performed By: #### C BC #### [facility] [address] [place] [address] Dr. Scooby Irvin IG % 0.2 % Normal 0.0-0.5 [facility] Comment on above: Performed By: #### C BC #### [facility] [address] [place] [address] Dr. Scooby Irvin LYMPH # 1.6 103/ul Normal 1.2-3.8 [facility] Comment on above: Performed By: #### C BC #### [facility] [address] [place] [address] Dr. Scooby Irvin Lymphocytes/100 WBC (Bld) 30.7 % Normal 20.5-60.0 [facility] Comment on above: Performed By: #### C BC #### [facility] [address] [place] [address] Dr. Scooby Irvin MANUAL DIFF REQ NO Normal [facility] Comment on above: Performed By: #### C BC #### [facility] [address] [place] [address] Dr. Scooby Irvin MCH (RBC) [Entitic mass] 28.4 pg Normal 26.7-34.0 [facility] Comment on above: Performed By: #### C BC #### [facility] [address] [place] [address] Dr. Scooby Irvin MCHC (RBC) [Mass/Vol] 31.8 g/dL Normal 29.9-35.2 [facility] Comment on above: Performed By: #### C BC #### [facility] [address] [address] [address] Scooby Irvin MCV (RBC) [Entitic vol] 89.2 fL Normal 81.0-99.0 [facility] Comment on above: Performed By: #### C BC #### [facility] [address] [address] [address] Scooby Irvin MONO # 0.6 103/ul Normal 0.3-0.8 [facility] Comment on above: Performed By: #### C BC #### [facility] [address] [address] [address] Scooby Irvin Monocytes/100 WBC (Bld) 11.5 % Normal 1.7-12.0 [facility] Comment on above: Performed By: #### C BC #### [facility] [address] [place] [address] Dr. Scooby Irvin NEUT # 2.8 103/ul Normal 1.4-6.5 [facility] Comment on above: Performed By: #### C BC #### [facility] [address] [place] [address] Dr. Scooby Irvin Neutrophils/100 WBC (Bld) 55.0 % Normal 43.0-75.0 [facility] Comment on above: Performed By: #### C BC #### [facility] [address] [place] [address] Dr. Scooby Irvin Platelet mean volume (Bld) [Entitic vol] 10.3 fL Normal 9.5-13.5 [facility] Comment on above: Performed By: #### C BC #### [facility] [address] [place] [address] Dr. Scooby Irvin PLT 208 103/ul Normal 150-450 [facility] Comment on above: Performed By: #### C BC #### [facility] [address] [place] [address] Dr. Scooby Irvin RBC 4.44 106/ul Normal 4.20-5.40 [facility] Comment on above: Performed By: #### C BC #### [facility] [address] [address] [address] Scooby Irvin WBC 5.1 103/ul Normal 4.0-11.0 [facility] Comment on above: Performed By: #### C BC #### [facility] [address] [place] [address] Dr. Scooby Irvin FREE T4on 03-09-2021 Free T4 [Mass/Vol] 1.15 ng/dL Normal 0.78-2.19 [facility] Comment on above: Performed By: #### C BC #### [facility] [address] [place] [address] Dr. Scooby Irvin LIPID PROFILEon 03-09-2021 CHOL-HDL RATIO NORM SEE BELOW Normal [facility] Comment on above: Result Comment: 3.3 - 4.4 LOW RISK 4.4 - 7.1 AVERAGE RISK 7.1 - 11.0 MODERATE RISK >11.0 HIGH RISK Performed By: #### L IPID, CMP, TSH #### [facility] [address] [place] [address] Dr. Scooby Irvin Cholesterol [Mass/Vol] 227 mg/dL Critically high <=200 [facility] Comment on above: Performed By: #### L IPID, CMP, TSH #### [facility] [address] [place] [address] Dr. Scooby Irvin Cholesterol in HDL [Mass/Vol] 65 mg/dL Normal [facility] Comment on above: Performed By: #### L IPID, CMP, TSH #### [facility] [address] [place] [address] Dr. Scooby Irvin Cholesterol in LDL [Mass/Vol] 142.6 mg/dL Normal [facility] Comment on above: Performed By: #### L IPID, CMP, TSH #### [facility] [address] [place] [address] Dr. Scooby Irvin Cholesterol.total/Ch olesterol in HDL [Mass ratio] 3.5 {ratio} Normal [facility] Comment on above: Performed By: #### L IPID, CMP, TSH #### [facility] [address] [place] [address] Dr. Scooby Irvin HDL NORMAL > or = 60 mg/dl - LO W CARDIOVASCULAR RISK <40 mg/dl - HIGH CARDIOVASCULAR RISK Normal [facility] Comment on above: Performed By: #### L IPID, CMP, TSH #### [facility] [address] [address] [address] Scooby Irvin LDL CALC NORMAL SEE BELOW Normal [facility] Comment on above: Result Comment: <100 mg/dl OPTIMAL 100 - 129 mg/dl NEAR OR ABOVE OPTIMAL 130 - 159 mg/dl BORDERLINE HIGH 160 - 189 mg/dl HIGH >190 mg/dl VERY HIGH Performed By: #### L IPID, CMP, TSH #### [facility] [address] [address] [address] Scooby Irvin Triglyceride [Mass/Vol] 97 mg/dL Normal <=150 [facility] Comment on above: Performed By: #### L IPID, CMP, TSH #### [facility] [address] [place] [address] Dr. Scooby Irvin VLDL CALC 19.4 mg/dL Normal [facility] Comment on above: Performed By: #### L IPID, CMP, TSH #### [facility] [address] [place] [address] Dr. Scooby Irvin PROF 14(COMP METB)on 022 Albumin [Mass/Vol] 4.0 g/dL Normal 3.5-5.0 [facility] Comment on above: Performed By: #### L IPID, CMP, TSH #### [facility] [address] [place] [address] Dr. Scooby Irvin Albumin/Globulin [Mass ratio] 1.1 {ratio} Normal [facility] Comment on above: Performed By: #### L IPID, CMP, TSH #### [facility] [address] [place] [address] Dr. Scooby Irvin ALP [Catalytic activity/Vol] 80 U/L Normal 38-126 [facility] Comment on above: Performed By: #### L IPID, CMP, TSH #### [facility] [address] [place] [address] Dr. Scooby Irvin ALT [Catalytic activity/Vol] 35 U/L Normal 9-52 [facility] Comment on above: Performed By: #### L IPID, CMP, TSH #### [facility] [address] [place] [address] Dr. Scooby Irvin Anion gap [Moles/Vol] 11.8 mmol/L Normal [facility] Comment on above: Performed By: #### L IPID, CMP, TSH #### [facility] [address] [place] [address] Dr. Scooby Irvin AST [Catalytic activity/Vol] 24 U/L Normal 14-36 [facility] Comment on above: Performed By: #### L IPID, CMP, TSH #### [facility] [address] [place] [address] Dr. Scooby Irvin Bilirubin [Mass/Vol] 0.5 mg/dL Normal 0.2-1.3 [facility] Comment on above: Performed By: #### L IPID, CMP, TSH #### [facility] [address] [place] [address] Dr. Scooby Irvin Calcium [Mass/Vol] 9.3 mg/dL Normal 8.4-10.2 [facility] Comment on above: Performed By: #### L IPID, CMP, TSH #### [facility] [address] [place] [address] Dr. Scooby Irvin Chloride [Moles/Vol] 105 mmol/L Normal 98-107 [facility] Comment on above: Performed By: #### L IPID, CMP, TSH #### [facility] [address] [place] [address] Dr. Scooby Irvin CO2 [Moles/Vol] 26.2 mmol/L Normal 22.0-30.0 [facility] Comment on above: Performed By: #### L IPID, CMP, TSH #### [facility] [address] [place] [address] Dr. Scooby Irvin Creatinine [Mass/Vol] 0.83 mg/dL Normal 0.52-1.04 [facility] Comment on above: Performed By: #### L IPID, CMP, TSH #### [facility] [address] [address] [address] Scooby Irvin EGFR-AF AUSTRALIAN >60 Normal >=60 [facility] Comment on above: Performed By: #### L IPID, CMP, TSH #### [facility] [address] [address] [address] Scooby Irvin EGFR-NON AF AUSTRALIAN >60 Normal >=60 [facility] Comment on above: Performed By: #### L IPID, CMP, TSH #### [facility] [address] [address] [address] Scooby Irvin Globulin (S) [Mass/Vol] 3.8 g/dL Normal [facility] Comment on above: Performed By: #### L IPID, CMP, TSH #### [facility] [address] [address] [address] Scooby Irvin Glucose [Mass/Vol] 112 mg/dL Critically high 74-106 [facility] Comment on above: Performed By: #### L IPID, CMP, TSH #### [facility] [address] [address] [address] Scooby Irvin Potassium [Moles/Vol] 4.0 mmol/L Normal 3.4-5.0 [facility] Comment on above: Performed By: #### L IPID, CMP, TSH #### [facility] [address] [address] [address] Scooby Irvin Protein [Mass/Vol] 7.8 g/dL Normal 6.1-8.2 [facility] Comment on above: Performed By: #### L IPID, CMP, TSH #### [facility] [address] [address] [address] Scooby Irvin Sodium [Moles/Vol] 139 mmol/L Normal 137-145 [facility] Comment on above: Performed By: #### L IPID, CMP, TSH #### [facility] [address] [address] [address] Scooby Irvin Urea nitrogen [Mass/Vol] 15.0 mg/dL Normal 7.0-17.0 [facility] Comment on above: Performed By: #### L IPID, CMP, TSH #### [facility] [address], [place] [address] Dr. Scooby Irvin Urea nitrogen/Creatinine [Mass ratio] 18.1 mg/mg Normal [facility] Comment on above: Performed By: #### L IPID, CMP, TSH #### [facility] [address] [place], [place] [address] Dr. Scooby Irvin TSHon 03-09-2021 TSH 2.761 uIU/mL Normal 0.470-4.68 0 [facility] Comment on above: Performed By: #### L IPID, CMP, TSH #### [facility] [address] [address] [address] Scooby Irvin TSH RANGE SEE BELOW Normal [facility] Comment on above: Result Comment: <0.3 4 UIU/ml HYPERTHYROID 0.34-5.60 UIU/ml EUTHYROID >5.60 UIU/ml HYPOTHYROID Performed By: #### L IPID, CMP, TSH #### [facility] [address] [place], [place] [address] Dr. Scooby Irvin Vital Signs Date Time Vital Sign Value Performing Clinician Facility 03-20-2024 10:54-0500 Blood Pressure Location Salazar Sarmini [facility] 03-20-2024 10:54-0500 Diastolic blood pressure 74 mm[Hg] Salazar Sarmini [facility] 03-20-2024 10:54-0500 Heart rate 71 /min Salazar Sarmini [facility] 03-20-2024 10:54-0500 Systolic blood pressure 129 mm[Hg] Salazar Sarmini [facility] 01-30-2024 13:46-0500 Diastolic blood pressure 82 mm[Hg] Salazar Sarmini [facility] 01-30-2024 13:46-0500 Mean blood pressure 104 mm[Hg] Salazar Sarmini [facility] 01-30-2024 13:46-0500 Systolic blood pressure 148 mm[Hg] Salazar Sarmini [facility] 01-30-2024 13:41-0500 Blood Pressure Location Salazar Sarmini [facility] 01-30-2024 13:41-0500 Diastolic blood pressure 85 mm[Hg] Salazar Sarmini [facility] 01-30-2024 13:41-0500 Heart rate 80 /min Salazar Sarmini [facility] 01-30-2024 13:41-0500 Systolic blood pressure 157 mm[Hg] Salazar Sarmini [facility] 01-15-2024 13:25-0500 Diastolic blood pressure 86 mm[Hg] Salazar Sarmini [facility] 01-15-2024 13:25-0500 Heart rate 79 /min Salazar Sarmini [facility] 01-15-2024 13:25-0500 Mean blood pressure 108 mm[Hg] Salazar Sarmini [facility] 01-15-2024 13:25-0500 Respiratory rate 17 /min Salazar Sarmini [facility] 01-15-2024 13:25-0500 SaO2% (BldA) [Mass fraction] 96 % Salazar Sarmini [facility] 01-15-2024 13:25-0500 Systolic blood pressure 153 mm[Hg] Salazar Sarmini [facility] 01-15-2024 13:15-0500 Diastolic blood pressure 81 mm[Hg] Salazar Sarmini [facility] 01-15-2024 13:15-0500 Heart rate 79 /min Salazar Sarmini [facility] 01-15-2024 13:15-0500 Mean blood pressure 103 mm[Hg] Salazar Sarmini [facility] 01-15-2024 13:15-0500 Respiratory rate 17 /min Salazar Sarmini [facility] 01-15-2024 13:15-0500 SaO2% (BldA) [Mass fraction] 96 % Salazar Sarmini [facility] 01-15-2024 13:15-0500 Systolic blood pressure 148 mm[Hg] Salazar Sarmini [facility] 01-15-2024 13:00-0500 Diastolic blood pressure 70 mm[Hg] Salazar Sarmini [facility] 01-15-2024 13:00-0500 Heart rate 72 /min Salazar Sarmini [facility] 01-15-2024 13:00-0500 Mean blood pressure 93 mm[Hg] Salazar Sarmini [facility] 01-15-2024 13:00-0500 SaO2% (BldA) [Mass fraction] 97 % Salazar Sarmini [facility] 01-15-2024 13:00-0500 Systolic blood pressure 140 mm[Hg] Salazar Sarmini [facility] 01-15-2024 12:50-0500 Body temperature 98.24 [degF] Salazar Sarmini [facility] 01-15-2024 12:44-0500 Respiratory rate 18 /min Salazar Sarmini [facility] 01-15-2024 12:40-0500 Respiratory rate 19 /min [facility] [facility] 01-15-2024 12:35-0500 Respiratory rate 19 /min Salazar Sar[facility] 01-15-2024 10:59-0500 Blood Pressure Location Salazar Sar[facility] 01-15-2024 10:59-0500 Body temperature 98.24 [degF] Salazar Sar[facility] 12-04-2023 08:58-0400 Blood Pressure Location Salazar Sarmini [facility] 12-04-2023 08:58-0400 Diastolic blood pressure 84 mm[Hg] Salazar Sarmini [facility] 12-04-2023 08:58-0400 Heart rate 84 /min Salazar Sarmini [facility] 12-04-2023 08:58-0400 Respiratory rate 16 /min Salazar Sarmini [facility] 12-04-2023 08:58-0400 Systolic blood pressure 156 mm[Hg] Salazar Sarmini [facility] 12-04-2023 08:49-0400 Blood Pressure Location Salazar Sarmini [facility] 12-04-2023 08:49-0400 Respiratory rate 16 /min Martin Tatum [facility] 09-04-2022 09:00-0400 Body height 140.97 cm Laurita Morales Other [facility] Other 09-04-2022 09:00-0400 Body mass index (BMI) [Ratio] 36.74 kg/m2 Laurita Morales Other [facility] Other 09-04-2022 09:00-0400 Body weight 73.03 kg Laurita Morales Other [facility] Other 09-04-2022 09:00-0400 Diastolic blood pressure 78 mm[Hg] Laurita Morales Other [facility] Other 09-04-2022 09:00-0400 SaO2% (BldA) [Mass fraction] 97 % Laurita Morales Other [facility] Other 09-04-2022 09:00-0400 Systolic blood pressure 132 mm[Hg] Laurita Morales Other [facility] Other 03-01-2022 10:30-0500 Body height 140.97 cm Laurita Morales Other [facility] Other 03-01-2022 10:30-0500 Body mass index (BMI) [Ratio] 36.06 kg/m2 Laurita Morales Other [facility] Other 03-01-2022 10:30-0500 Body weight 71.67 kg Laurita Morales Other [facility] Other 03-01-2022 10:30-0500 Diastolic blood pressure 84 mm[Hg] Laurita Morales Other [facility] Other 03-01-2022 10:30-0500 SaO2% (BldA) [Mass fraction] 98 % Laurita Morales Other [facility] Other 03-01-2022 10:30-0500 Systolic blood pressure 132 mm[Hg] Laurita Morales Other [facility] Other 11-08-2021 10:17-0400 Diastolic blood pressure 74 mm[Hg] Farooq SALAM [facility] 11-08-2021 10:17-0400 Mean blood pressure 99 mm[Hg] Farooq SALAM [facility] 11-08-2021 10:17-0400 Systolic blood pressure 148 mm[Hg] Farooq SALAM [facility] 11-08-2021 10:15-0400 Blood Pressure Location Farooq SALAM [facility] 11-08-2021 10:15-0400 Diastolic blood pressure 95 mm[Hg] Farooq SALAM [facility] 11-08-2021 10:15-0400 Heart rate 78 /min Farooq SALAM [facility] 11-08-2021 10:15-0400 Respiratory rate 16 /min Farooq SALAM [facility] 11-08-2021 10:15-0400 Systolic blood pressure 159 mm[Hg] Farooq SALAM [facility] 05-10-2021 11:11-0400 Diastolic blood pressure 90 mm[Hg] Farooq SALAM [facility] 05-10-2021 11:11-0400 Systolic blood pressure 180 mm[Hg] Capri FULLER [facility] Encounters Encounter Date Encounter Type Care Provider Facility Start: 03-20-2024 End: 03-20-2024 ambulatory Martin Felicianoal Levymini Facility:[facility] Start: 03-20-2024 End: 03-20-2024 Patient encounter procedure Martin Felicianoal Coltoni [facility] Start: 03-18-2024 End: 03-18-2024 Office outpatient visit 15 minutes Jr. Larissa Guerrero DO Work Phone: [facility] Comment on above: Left knee pain, unsp ecified chronicity (Primary Dx); Internal derangement of left knee; Arthritis of left knee Start: 03-18-2024 End: 03-18-2024 ambulatory LARISSA CABRERA Not Available Start: 03-02-2024 End: 03-02-2024 Telephone encounter Adali Giordano NP Work Phone: [facility] Comment on above: MRI Start: 02-17-2024 End: 02-17-2024 Bamboo flowsheet Adali Giordano MEDICATION TECH Work Phone: [facility] Start: 02-17-2024 End: 02-17-2024 Bamboo flowsheet Adali Giordano MEDICATION TECH Work Phone: [facility] Start: 02-17-2024 End: 02-17-2024 Office outpatient visit 15 minutes Adali Giordano MEDICATION TECH Work Phone: [facility] Comment on above: S/P left knee arthro scopy (Primary Dx); Left knee pain, unspecified chronicity; Arthritis of left knee; Internal derangement of left knee Start: 02-17-2024 End: 02-17-2024 ambulatory ADALI Pompa APLING Not Available Start: 01-30-2024 End: 01-30-2024 ambulatory Salazar Talal Coltoni Facility:[facility] Start: 01-30-2024 End: 01-30-2024 Patient encounter procedure Martin Tatum [facility] Start: 01-20-2024 End: 01-20-2024 Bamboo flowsheet Adali Peña Apling MEDICATION TECH Work Phone: [facility] Start: 01-20-2024 End: 01-20-2024 Bamboo flowsheet Adali Peña Apling MEDICATION TECH Work Phone: [facility] Start: 01-20-2024 End: 01-20-2024 Office outpatient visit 25 minutes Adali Giordano MEDICATION TECH Work Phone: [facility] Comment on above: S/P left knee arthro scopy (Primary Dx); Left knee pain, unspecified chronicity; Arthritis of left knee Start: 01-20-2024 End: 01-20-2024 ambulatory ADALI B APLING Not Available Start: 01-15-2024 End: 01-15-2024 Patient encounter procedure Martin Tatum [facility] Start: 12-31-2023 End: 12-31-2023 Bamboo flowsheet Abhi Ramires MEDICATION TECH Work Phone: [facility] Start: 12-31-2023 End: 12-31-2023 Bamboo flowsheet Abhi Ramires MEDICATION TECH Work Phone: [facility] Start: 12-31-2023 End: 12-31-2023 Postop follow up visit related to original px Abhi Ramires NP Work Phone: [facility] Comment on above: S/P left knee arthro scopy (Primary Dx); Left knee pain, unspecified chronicity Start: 12-31-2023 End: 12-31-2023 ambulatory ABHI RAMIRES Not Available Start: 12-06-2023 End: 12-06-2023 ambulatory Salazar Talal Sarmini Facility:[facility] Start: 12-06-2023 End: 12-06-2023 Lab Drop off Salazar Talal Sar[facility] Start: 12-04-2023 End: 12-04-2023 ambulatory Salazar Talal Sarmini Facility:[facility] Start: 12-04-2023 End: 12-04-2023 Patient encounter procedure Salazar Talal Sarmini [facility] Start: 12-04-2023 ambulatory Salazar Talal Sarmini Facility:[facility] Start: 12-04-2023 End: 12-04-2023 Patient encounter procedure Salazar Talal Sarmini [facility] Start: 11-26-2023 ambulatory Salazar Sarmini Facili ty:[facility] Start: 11-13-2023 End: 11-13-2023 Bamboo flowsheet Adali Giordano MEDICATION TECH Work Phone: [facility] Start: 11-13-2023 End: 11-13-2023 Bamboo flowsheet Adali Giordano MEDICATION TECH Work Phone: [facility] Start: 11-13-2023 End: 11-13-2023 Postop follow up visit related to original px Adali Giordano MEDICATION TECH Work Phone: [facility] Comment on above: Arthritis of left kn ee (Primary Dx); S/P left knee arthroscopy Start: 11-13-2023 End: 11-13-2023 ambulatory ADALI GIORDANO Not Available Start: 10-16-2023 End: 10-16-2023 Bamboo flowsheet Adali Giordano MEDICATION TECH Work Phone: [facility] Start: 10-16-2023 End: 10-16-2023 Bamboo flowsheet Adali Giordano MEDICATION TECH Work Phone: [facility] Start: 10-16-2023 End: 10-16-2023 Postop follow up visit related to original px Adali Giordano MEDICATION TECH Work Phone: [facility] Comment on above: Arthritis of left kn ee (Primary Dx); S/P left knee arthroscopy Start: 10-16-2023 End: 10-16-2023 ambulatory ADALI GIORDANO Not Available Start: 10-08-2023 End: 10-08-2023 Refill Abhi Ramires MEDICATION TECH Work Phone: [facility] Comment on above: Post-op pain (Primar y Dx) Start: 09-10-2023 End: 09-10-2023 ambulatory DANIELLE CURRAN Not Available Start: 08-26-2023 End: 08-26-2023 ambulatory ADALI GIORDANO Not Available Start: 03-07-2023 End: 03-07-2023 ambulatory Laurita Morales Other [facility] Other Start: 03-07-2023 Office outpatient vi sit 15 minutes Laurita Morales [facility] Start: 09-20-2022 End: 09-20-2022 ambulatory Laurita Morales Other [facility] Other Start: 09-20-2022 Telephone encounter Laurita Morales [facility] Start: 09-04-2022 End: 09-04-2022 ambulatory Laurita Morales Other [facility] Other Start: 09-04-2022 Patient encounter procedure Laurita Morales [facility] Start: 04-19-[address] LAURITA MORALES Facil ity:[facility] Start: 03-01-2022 End: 03-01-2022 ambulatory Laurita Morales Other [facility] Other Start: 03-01-2022 Office outpatient vi sit 15 minutes Laurita Morales [facility] Start: 01-18-2022 End: 01-19-[address] LAURITA MORALES Facility:[facility] Start: 11-21-2021 End: 11-22-2021 ambulatory CAPRI FULLER Facility:[facility] Start: 11-08-2021 End: 11-08-2021 Patient encounter procedure Capri FULLER [facility] Start: 10-19-2021 End: 10-20-[address] LAURITA MORALES Facility:[facility] Start: 09-27-2021 End: 09-28-[address] LAURITA MORALES Facility:[facility] Start: 09-26-2021 End: 09-26-[address] LAURITA MORALES Facility:[facility] Start: 09-25-2021 Encounter for preprocedural laboratory examination DR RADHA IRAHETA [facility] Start: 09-22-2021 End: 09-23-[address] LAURITA MORALES Facility:[facility] Start: 09-22-2021 End: 09-23-2021 Encounter for preprocedural laboratory examination DR LAURITA MORALES Facility:[facility] Start: 09-11-[address] LAURITA MORALES Facil ity:[facility] Start: 09-06-2021 End: 09-07-2021 ambulatory ROBERTO MCNALLY Facility:[facility] Start: 08-30-2021 Adult health examination Malia Morales Other [facility] [employer] Other Start: 06-22-2021 End: 06-23-2021 ambulatory CAPRI FULLER Facility:[facility] Start: 05-31-2021 End: 05-31-2021 ambulatory Luis Gutierrez Facility:[facility] Start: 05-26-2021 End: 05-26-2021 ambulatory Laurita Morales Facility:[facility] Start: 05-26-2021 End: 05-26-2021 Patient encounter procedure MD Cy Sears Work Phone: [facility] Start: 05-22-2021 End: 05-23-[address] LAURITA MORALES Facility:[facility] Start: 05-10-2021 End: 05-10-2021 Patient encounter procedure Capri FULLER [facility] Start: 05-04-2021 End: 05-04-2021 ambulatory Cy Sears Facility:[facility] Start: 05-04-2021 End: 05-04-2021 Patient encounter procedure MD Cy Sears Work Phone: [facility] [place] Start: 04-20-2021 End: 04-21-2021 ambulatory CAPRI FULLER Facility:[facility] Start: 04-01-2021 End: 04-02-[address] LAURITA MORALES Facility:[facility] Start: 03-23-2021 End: 03-24-[address] LAURITA MORALES Facility:[facility] Start: 03-09-2021 End: 03-10-[address] LAURITA MORALES Facility:[facility] Procedures Date Procedure Procedure Detail Performing Clinician Start: 01-15-2024 Colonoscopy Adali Giordano MEDICATION TECH Work Phone: Start: 01-15-2024 Colonoscopy Martin Tatum Start: 01-15-2024 Esophagogastroduodenoscopy Mratin Lockettsabrina inmeera Start: 09-12-2023 Tear of meniscus of knee (disorder) Martin Levylindeni Start: 09-04-2023 History of thyroidectomy Status post total thyroidectomy Abhi Ramires NP Work Phone: Start: 05-31-2021 Antibody screen Luis Dengbrandoziggy Comment on above: Order Comment: Transfuse now? N Result Comment: PERF ORMED BY: [facility] [address] [place] [address] PATHOLOGIST ASTRONAUTICAL ENGINEER TRICIA OSHEA M.D. Start: 02-16-2020 Colonoscopy Abhi Ramires NP Work Phone: Start: 02-16-2020 Colonoscopy w/biopsy single/multiple Capri FULLER Colonoscopy Capri FULLER History of appendectomy Sherwin Tatum History of thyroidectomy Tari Tatum Screening for malign ant neoplasm of breast Laurita Morales Other Plan of Treatment Date Care Activity Detail Author Start: 01-14-2034 Screening for malignant neoplasm of colon [facility] Start: 02-15-2030 Screening for malignant neoplasm of colon [facility] Start: 05-13-2024 End: 05-13-2024 Patient encounter procedure 05/13/2024 10:30 AM EDT Office Visit [facility] [address] [place] [id number] Jr. Larissa Guerrero DO [address] [place] [address] [facility] Start: 02-17-2024 End: 02-16-2025 MR Knee - left WO contrast MR knee left wo IV contrast Imaging Routine Internal derangement of left knee Expected: 02/17/2024 (Approximate), Expires: 02/16/2025 [facility] Work Phone: Comment on above: Expected: 02/17/2024 (Approximate), Expires: 02/16/2025 Start: 02-17-2024 End: 02-17-2024 Patient encounter procedure 02/17/2024 9:45 AM EST Office Visit [facility] [address] [place] [id number] Adali Giordano NP [address] [place] [address] S/P left knee arthroscopy (Primary Dx); Left knee pain, unspecified chronicity; Arthritis of left knee [facility] Comment on above: S/P left knee arthro scopy (Primary Dx); Left knee pain, unspecified chronicity; Arthritis of left knee Start: 01-20-2024 End: 01-20-2024 Patient encounter procedure [facility] Comment on above: S/P left knee arthro scopy (Primary Dx); Left knee pain, unspecified chronicity; Arthritis of left knee Start: 12-31-2023 End: 12-31-2023 Patient encounter procedure 12/31/2023 10:45 AM EST Office Visit [facility] [address] [place] [id number] Abhi Ramires, MACI [address] [place] [address] Arrived [facility] Comment on above: Arrived Start: 11-13-2023 End: 11-13-2023 Patient encounter procedure [facility] Comment on above: Arthritis of left kn ee (Primary Dx); S/P left knee arthroscopy Start: 10-16-2023 End: 10-16-2023 Patient encounter procedure [facility] Comment on above: Arrived Start: 10-13-2023 Influenza vaccination Influenza Vacc ine (#1) [facility] Start: 10-09-2023 End: 10-09-2023 Patient encounter procedure 10/09/2023 11:30 AM EDT Procedure Visit [facility] Danielle Curran DO [address] [place] [address] [facility] Start: 1950 Screening for malignant neoplasm of colon [facility] Immunizations Immunization Date Immunization Notes Care Provider Fa cili 11-13-2023 influenza virus vaccine, unspecified formulation Martin Tatum [facility] 12-03-2022 ABRYSVO - Respirator y syncytial virus (RSV), vaccine, bivalent, protein subunit RSV prefusion F, diluent reconstituted, 0.5 mL, PF Abhi Ramires MEDICATION TECH Work Phone: [facility] 12-03-2022 SARS-COV-2 (COVID-19 ) vaccine, mRNA, spike protein, LNP, PF, 50 mcg/0.5 mL Abhi Ramires MEDICATION TECH Work Phone: [facility] 11-07-2022 Influenza, Seasonal, Quadrivalent, Adjuvanted Abhi Ramires MEDICATION TECH Work Phone: [facility] 11-07-2022 influenza virus vaccine, unspecified formulation Abhi Ramires MEDICATION TECH Work Phone: [facility] 10-01-2022 zoster vaccine recombinant Abhi Katie MEDICATION TECH Work Phone: [facility] 07-18-2022 zoster vaccine recombinant Abhi Ramires MEDICATION TECH Work Phone: [facility] 11-21-2021 influenza virus vaccine, unspecified formulation Martin Segurai [facility] 11-21-2021 Seasonal trivalent influenza vaccine, adjuvanted, preservative free Abhi Ramires MEDICATION TECH Work Phone: [facility] 10-27-2021 SARS-CoV-2 (COVID-19 ) [id number] Martin Lockettmini [facility] Comment on above: Result Comment: 2023: [id number] 12-09-2020 COVID-19 mRNA-1273 (Chicho) MD Cy Sears Work Phone: [facility] Comment on above: Result Comment: 2023: TPV70 11-15-2020 influenza virus vaccine, split virus (incl. purified surface antigen) Laurita Morales Other [employer] Other 11-15-2020 influenza virus vaccine, unspecified formulation Abhi Ramires MEDICATION TECH Work Phone: [facility] 11-11-2020 influenza virus vaccine, unspecified formulation Capri FULLER [facility] 04-26-2020 COVID-19 mRNA-1273 (Moderna) MD Cy Sears Work Phone: [facility] 03-31-2020 SARS-CoV-2 (COVID-19 ) mRNA-1273 vaccine Salazar Sarmini [facility] 03-23-2020 COVID-19 mRNA-1273 (Moderna) MD Cy Sears Work Phone: [facility] 11-20-2019 influenza virus vaccine, split virus (incl. purified surface antigen) Laurita Morales Other [facility] [employer] Other 11-20-2019 influenza virus vaccine, unspecified formulation Abhi Katie MEDICATION TECH Work Phone: [facility] 07-09-2018 zoster vaccine, live Abhi O sonalen MEDICATION TECH Work Phone: [facility] 11-20-2017 pneumococcal polysaccharide vaccine, 23 valent Abhi Ramires MEDICATION TECH Work Phone: [facility] 11-14-2017 influenza virus vaccine, unspecified formulation Salazar Sarmini [facility] 11-14-2017 pneumococcal polysaccharide vaccine, 23 valent Abhi Ramires MEDICATION TECH Work Phone: [facility] 11-14-2017 Seasonal trivalent influenza vaccine, adjuvanted, preservative free Abhi Ramires MEDICATION TECH Work Phone: [facility] 10-24-2016 influenza virus vaccine, split virus (incl. purified surface antigen) Laurita Morales Other [facility] [employer] Other 10-24-2016 influenza virus vaccine, unspecified formulation Salazar Sarmini [facility] 10-24-2016 influenza, high dose seasonal, preservative-free Abhi Ramires MEDICATION TECH Work Phone: [facility] 10-24-2016 pneumococcal conjuga te vaccine, 13 valent Laurita Morales Other [facility] [employer] Other 11-08-2015 influenza virus vaccine, unspecified formulation Martin Segurameera [facility] 11-08-2015 Seasonal trivalent influenza vaccine, adjuvanted, preservative free Abhi Ramires NP Work Phone: [facility] 11-16-2014 influenza virus vaccine, unspecified formulation Salazar Levymini [facility] 11-16-2014 influenza, seasonal, injectable, preservative free Abhi Ramires MEDICATION TECH Work Phone: [facility] 08-31-2014 tetanus and diphther ia toxoids, adsorbed, preservative free, for adult use (5 Lf of tetanus toxoid and 2 Lf of diphtheria toxoid) Abhi Ramires MEDICATION TECH Work Phone: [facility] 08-31-2014 tetanus toxoid, reduced diphtheria toxoid, and acellular pertussis vaccine, adsorbed Laurita Morales Other [facility] [employer] Other 11-30-2013 pneumococcal polysaccharide vaccine, 23 valent Laurita Morales Other [facility] [employer] Other 03-24-2013 zoster vaccine, live Abhi daly NP Work Phone: [facility] 11-11-2012 influenza virus vaccine, unspecified formulation Salazar Levyminmeera [facility] 11-11-2012 influenza, seasonal, injectable Abhi Ramires MEDICATION TECH Work Phone: [facility] 01-29-2003 hepatitis B vaccine, adult dosage Abhi Ramires NP Work Phone: [facility] 08-10-2002 hepatitis B vaccine, adult dosage Abhi Ramires MEDICATION TECH Work Phone: [facility] 07-08-2002 hepatitis B vaccine, adult dosage Abhi Ramires MEDICATION TECH Work Phone: [facility] 07-08-2002 TD(adult) unspecifie d formulation; Translations: [Td(adult) unspecified formulation] Abhi Ramires NP Work Phone: [facility] NEGATED: Highlighted row has not occurred!11-08-2021 influenza virus vaccine, unspecified formulation Capri FULLER [facility] Payers Date Payer Category Payer Self-pay [id number] 2021 Private Health Insurance [id number] 2021 Private Health Insurance CLI [id number] 2013 Medicare [id number] 1959 Medicare [id number] 1959 Unknown [id number] 1948 Unknown [id number] 2.16.84 0.1.306075.3.579.2.593 1948 Unknown [id number] 2.16.84 0.1.714280.3.579.2.593 1948 Unknown [id number] 2.16.84 0.1.296502.3.579.2.593 1948 Unknown [id number] 2.16.84 0.1.634768.3.579.2.593 1948 Unknown [id number] 2.16.84 0.1.441448.3.579.2.593 1948 Unknown [id number] 2.16.84 0.1.315222.3.579.2.593 1948 Unknown [id number] 2.16.84 0.1.168586.3.579.2.593 1948 Unknown [id number] 2.16.84 0.1.659351.3.579.2.593 1948 Unknown [id number] 2.16.84 0.1.282990.3.579.2.593 1948 Unknown [id number] 2.16.84 0.1.159688.3.579.2.593 1948 Unknown [id number] 2.16.84 0.1.973504.3.579.2.593 1948 Unknown [id number] 2.16.84 0.1.549304.3.579.2.593 1948 Unknown [id number] 2.16.84 0.1.016056.3.579.2.593 1948 Unknown [id number] 2.16.84 0.1.495199.3.579.2.593 1948 Unknown [id number] 2.16.84 0.1.277307.3.579.2.593 1948 Unknown [id number] 2.16.84 0.1.622747.3.579.2.593 1948 Unknown [id number] 2.16.84 0.1.059021.3.579.2.593 1948 Unknown [id number] 2.16.8 40.1.171485.3.579.2.727 1948 Unknown [id number] 2.16.8 40.1.359180.3.579.2.727 1948 Unknown [id number] 2.16.8 40.1.410895.3.579.2.727 1948 Unknown [id number] 2.16.84 0.1.804302.3.579.2.1259 1948 Unknown [id number] 2.16.84 0.1.047713.3.579.2.1259 1948 Unknown [id number] 2.16.84 0.1.267709.3.579.2.125 1948 Unknown [id number] 2.16.84 0.1.758288.3.579.2.1258 1948 Unknown [id number] 2.16.84 0.1.805884.3.579.2.1258 1948 Unknown [id number] 2.16.84 0.1.158643.3.579.2.125 1948 Unknown [id number] 2.16.84 0.1.106964.3.579.2.1258 1948 Unknown [id number] 2.16.84 0.1.280376.3.579.2.125 1948 Unknown [id number] 2.16.84 0.1.613938.3.579.2.1258 1948 Unknown [id number] 2.16.8 40.1.271601.3.579.2.727 Medicare Self Pay [id number] Unknown [id number] 2.16.8 40.1.777718.3.579.2.531 Unknown [id number] 2.16.8 40.1.528184.3.579.2.531 Unknown [id number] 2.16.8 40.1.605553.3.579.2.531 Social History Date Type Detail [facility] Work Phone: Start: 1950 Sex Assigned At Female F [facility] Start: 05-10-2021 End: 03-20-2024 Tobacco smoking status Heavy tobacco smoker (finding) [facility] Start: 09-10-2023 End: 03-18-2024 Sex Assigned At Female [facility] Start: 05-26-2021 [facility] Start: 08-26-2023 Tobacco smoking stat [facility] Smokes tobacco daily [facility] History of tobacco use Cigarette Smoker [facility] Start: 08-26-2023 Tobacco use and exposure Smokeless tobacco non-user [facility] Start: 09-10-2023 End: 03-18-2024 Alcoholic beverage intake Current drinker of alcohol (finding) [facility] Start: 09-10-2023 End: 03-18-2024 History of Social function [facility] Start: 1950 Sex assigned at Not on file N [facility] Tobacco smoking status Never [facility] Functional Status Date Assessment Result Facility 03-20-2024 Functional Status N/A [facility] 01-30-2024 Functional Status N/A [facility] 01-15-2024 Functional Status N/A [facility] 12-04-2023 Functional Status N/A [facility] 11-08-2021 Functional Status N/A [facility] Clinical Notes 01-24-2021 to 03-18-2024 [...] TURNER) - RECHECK (L) KNEE S/P MRI @[place] [facility] (02/25/24) ; S/P (L) KNEE SCOPE (DR. CURRAN) (10/09/23) (5 MONTHS, 1 WK, 1 DAY) XRAY B/L KNEE 08/26/23 IN EPIC XRAY (L) KNEE (02/09/23) IN CHANGE MRI @[facility] 02/25/24 MDP 12/31/23 (50% IMPROVEMENT) CORTISONE INJ (01/20/24) (70-80% IMPROVEMENT) NO PT PAIN MANAGEMENT @ [facility] (BACK) STATES INJECTION 01/20/24 ONLY LASTED [...] requiring urgent evaluation. documented in this encounter [facility] 03-02-2024 Miscellaneous Notes Patient called and left requesting a call for here MRI results. documented in this encounter [facility] 03-02-2024 Telephone encounter Note Patient called and left requesting a call for here MRI results. [facility] 02-17-2024 History of Presen t illness [...] f/u s/p MRI to be done at [facility] documented in this encounter [facility] 01-30-2024 Evaluation + Plan note Future Scheduled TestsCalprotectin, Fecal 01/30/24Calprotectin, Fecal 03/17/24Clostridium Difficile PCR 03/17/24Quantiferon-TB Plus (Client Incubated) 03/17/24Enteric Panel by PCR 03/17/24CBC w/ Auto Diff 03/20/24CBC w/ Auto Diff 03/17/24Comprehensive Metabolic Panel 03/20/24Comprehensive Metabolic Panel 03/17/24C-Reactive Protein 03/20/24C-Reactive Protein 03/17/24Hepatitis B Surface Antibody 03/17/24Hepatitis B Surface Antigen 03/17/24 [facility] 01-20-2024 History of Presen t [...] she understands this. documented in this encounter [facility] 01-15-2024 Hospital Discharg e instructions Patient Education 01/15/2024 13:05:31 Gastritis, Adult, Tcvr-rf-Xohr Gastritis, Adult Gastritis is irritation and swelling [...] Follow these instructions at home: Medicines Take vjap-gwq-togklox and prescription medicines only as told by [...] provider. Document Revised: 06/03/2021 Document Reviewed: 06/03/2021 [employer] Patient Education 2023 [employer]. 01/15/2024 13:05:27 Endoscopy, Care After Procedure [facility] ([facility]) Endoscopy Care After Procedure Please [...] blood. Document Released: 09/11/2004 Document Re-Released: 07/22/2006 [employer] Patient Information Snapchat. 01/15/2024 13:05:22 Hemorrhoids, Mbze-wl-Yhhs Hemorrhoids Hemorrhoids are swollen veins that may [...] Follow these instructions at home: Medicines Take cfrv-nau-mfaltbg and prescription medicines only as told by [...] provider. Document Revised: 10/10/2022 Document Reviewed: 10/10/2022 [employer] Patient Education 2023 [employer]. 01/15/2024 13:05:13 Ulcerative Colitis, Adult Ulcerative Colitis, [...] instructions at home: Medicines and vitamins Take zyra-mcl-xvagtba and prescription medicines only as told by [...] and water are not available, use hand software administrator. Stay up to date on your vaccinations, [...] information about ulcerative colitis at the National [place] of Diabetes and Digestive and Kidney Diseases [...] provider. Document Revised: 10/04/2020 Document Reviewed: 10/04/2020 [employer] Patient Education 2023 [employer] 01/15/2024 13:05:09 Colonoscopy, Care After Surgery [...] severe or gets worse throughout the day. [facility] 01-15-2024 Evaluation + Plan note Extrac javier from: Title:ANES Post-operative Note---General Author: Danielle Garcia MD Date:01/15/24 Plan Transfer/Discharge: Transfer/Discharge Discharge when meets criteria ( To home ). Extracted from: Title:ANES Pre-operative Note 2022 Author:Danielle Ha. Date:01/15/24 Plan [place] [employer] Anesthesiologists (ASA) physical status classification: Class II. Anesthetic Preoperative Plan: Anesthesia General. Extracted from: Title:1Preop H&P Author:Deepti ALARCON, Martin reynolds Date:01/15/24 Impression and Plan Impression: Ulcerative colitis, chronic diarrhea Plan: -EGD and Colonoscopy Future Appointments Appointment Date:01/30/2024 01:45:00 PM Scheduled Provider:Martin Tatum MD Location:[facility] Appointment Type:[facility] Follow Up Diagnostic Tests Pending * Enteric Panel by PCR 01/15/24 * Clostridium Difficile PCR 01/15/24 * Hep B Core Ab, Tot 01/15/24 * Hepatitis B Surface Antibody 01/15/24 * Hepatitis B Surface Antigen 01/15/24 * Quantiferon-TB Plus (Client Incubated) 01/15/24 [facility] 11-19-2024 History of Present illness Narrative* Abhi Ramires, MACI - 12/31/2023 10:45 AM EST [...] develop for requiring urgent evaluation. Abhi Ramires APRN-PLANT OPERATIONS WORKER documented in this encounterChristian [id number] History of Present illness Narrative* Adali Giordano [...] do activities as tolerated. documented in this encounterChristian [id number] History of Present illness Narrative* Adali Giordano [...] as tolerated, f/U prn documented in this encounterChristian [id number] Telephone encounter Note* Telephone Encounter - Abhi Ramires NP - 10/08/2023 3:02 PM EDT Post op pain rx. PDMP reviewed [facility] [id number] Miscellaneous Notes* Telephone Encounter - Abhi Ramires NP - 10/08/2023 3:02 PM EDT Post op pain rx. PDMP reviewed documented in this encounterChristian [id number] Evaluation note* Encounter Date Diagnosis Assessment Notes [...] continue to monitor through routine blood work [employer] Other 08-10-2023 Evaluation note* Encounter Date Diagnosis Assessment Notes Treatment Notes Treatment Clinical Notes Sep, Right foot pain (ICD-10 - M79.671) [facility] [employer] Other 07-25-2023 Evaluation note* Encounter Date Diagnosis [...] - E03.9) Chronic problem due for labs. [employer] Other 01-19-2023 Evaluation note* Encounter Date Diagnosis [...] - E78.5) Due for labs in summer. [employer] Other 12-08-2022 NoteCONSULTATION PROCEDURE DATE: 01/18/2022 PREOPERATIVE [...] be followed up in the office.[facility] [id number] NoteCONSULTATION CONSULTATION DATE: 01/18/2022 HISTORY OF PRESENT [...] three months' time, unless otherwise indicated.[facility] [id number] Evaluation + Plan note Diagnostic Tests Pending * CBC w/ Auto Diff 11/08/21 * Comprehensive Metabolic Panel 11/08/21 [facility] 09-08-2022 NoteCONSULTATION PROCEDURE [...] be followed up in the office.[facility] 10-19-2021 NoteCONSULTATION CONSULTATION DATE: 10/19/2021 This [...] three months' time unless otherwise indicated.[facility] [id number] NoteCONSULTATION CONSULTATION DATE: 09/06/2021 HISTORY OF PRESENT [...] and patient agrees to move forward.[facility] [id number] NoteCONSULTATION PAIN MANAGEMENT CONSULTATION HISTORY: This is [...] and Approved by: ROBERTO MCNALLY . 04/27/2021 12:41:00[facility]12-14-2021 Hospital Discharge instructions Follow Up Care 01/24/2021 10:04:31 With:JANINA ALARCON, LENORE Farooq, [facility] Address: [address] [place] [address]- When:6 months [facility] Evaluation + Plan note Future Appointments Appointment Date:11/08/2021 10:15:00 AM Scheduled Provider:Capri FULLER MD Location:[facility] Appointment Type:[facility] Follow Up Future Scheduled Tests Laboratory* CBC w/ Indices 07/25/20 * Comprehensive Metabolic Panel 07/25/20 [facility] Evaluation + Plan note Future Appointments Appointment Date:01/15/2024 12:00:00 PM Scheduled Provider: Location:[facility] Appointment Type:Surgery FT Appointment Date:01/30/2024 01:45:00 PM Scheduled Provider:Martin Tatum MD Location:[facility] Appointment Type:[facility] Follow Up Future Scheduled Tests Laboratory* O & P Exam, Routine 12/04/23 * Clostridium Difficile PCR 12/04/23 * Enteric Panel by PCR 12/04/23 [facility] Evaluation + Plan note Future Appointments Appointment Date:01/15/2024 12:00:00 PM Scheduled Provider: Location:[facility] Appointment Type:Surgery FT Appointment Date:01/30/2024 01:45:00 PM Scheduled Provider:Martin Tatum MD Location:[facility] Appointment Type:BAD Follow Up Diagnostic Tests Pending * Celiac Disease Comprehensive 12/04/23 Future Scheduled Tests Laboratory* O & P Exam, Routine 12/04/23 * Clostridium Difficile PCR 12/04/23 * Enteric Panel by PCR 12/04/23 [facility] evaluation + Plan note Future Appointments Appointment Date:01/15/2024 12:00:00 PM Scheduled Provider: Location:[facility] Appointment Type:Surgery FT Appointment Date:01/30/2024 01:45:00 PM Scheduled Provider:Martin Tatum MD Location:[facility] Appointment Type:BAD Follow Up Diagnostic Tests Pending * O & P Exam, Routine 12/06/23 [facility] evaluation + Plan note Future Appointments Appointment Date:04/29/2024 09:15:00 AM Scheduled Provider:Martin Tatum MD Location:[facility] Appointment Type:[facility] Follow Up Future Scheduled Tests Laboratory* Calprotectin, Fecal 01/30/24 [facility] Evalukzcyi noteNo assessment information available [facility] Work Phone: Evxnxkdvrs note* Diagnosis Arthritis of left knee- Primary [...] 04/12 Hospitalization History See past surgical hx [employer] Other Hospital course Narrative No data available for this section [facility] Hospital Discharge instructions No data available for this section [facility] Progress note No data available for this section [facility] Chief Complaint and Reason for [...] Right foot pain (M79 .671) Referral Organization [facility] Referring Provider First Name Laurita Referring Provider Last Name Carmen Referring Provider Specialty [facility] Referred Organization [facility] Referred Provider Seymour Johnson Referred Address [address] [place], [place],[address] Referred Provider Specialty Podiatry - S urgical [...] Active Luis Gutierrez DO Attending Provider Active Linemarker Relationship Specialty Start Date End Date Laurita Morales MD [address] [place] [address] PCP - General Family Medicine 08/26/23 [employer] Relationship Specialty Start Date End Date Laurita Morales MD [address] [facility] [place] [address] PCP - General Family Medicine 08/26/23 [employer] Relationship Specialty Start Date End Date Laurita Morales MD [address] [facility] [place] [address] PCP - General Family Medicine 08/26/23 [employer]emarker Relationship Specialty Start Date End Date Laurita Morales MD [address] [facility] [address] PCP - General Family Medicine 08/26/23 [employer]emarker Relationship Specialty Start Date End Date Laurita Morales MD [address] [facility] [place] [address] PCP - General Family Medicine 08/26/23 [employer]emarker Relationship Specialty Start Date End Date Laurita Morales MD [address] [facility] [address] PCP - General Family Medicine 08/26/23 [employer] Relationship Specialty Start Date End Date Laurita Morales MD [address] [facility] [place] [address] PCP - General Family Medicine 08/26/23 [employer]emarker Relationship Specialty Start Date End Date Laurita Morales MD [address] [facility] [place] [address] PCP - General Family Medicine 08/26/23 [employer] Relationship Specialty Start Date End Date Laurita Morales MD [address] [facility] [address] PCP - General Family Medicine 08/26/23 [employer] Relationship Specialty Start Date End Date Laurita Morales MD [address] [facility] [address] PCP - General Family Medicine 08/26/23 [employer] Relationship Specialty Start Date End Date Laurita Morales MD [address] [facility] [address] PCP - General Family Medicine 08/26/23 Goals [...] section and content) DATE CREATED AUTHOR 05/23/2021 [facility] dical Specialist DATE CREATED AUTHOR AUTHOR'S ORGANIZ ATION 01/23/2022 [facility] DATE CREATED AUTHOR AUTHOR'S ORGANIZ ATION 03/17/2022 [facility] DATE CREATED AUTHOR AUTHOR'S ORGANIZ ATION 12/03/2023 [facility] DATE CREATED AUTHOR AUTHOR'S ORGANIZ ATION 12/08/2023 [facility] DATE CREATED AUTHOR AUTHOR'S ORGANIZ ATION 12/10/2023 [facility] DATE CREATED AUTHOR AUTHOR'S ORGANIZ ATION 12/12/2023 [facility] DATE CREATED AUTHOR AUTHOR'S ORGANIZ ATION 01/23/2024 [facility] DATE CREATED AUTHOR AUTHOR'S ORGANIZ ATION 01/25/2024 [facility] DATE CREATED AUTHOR AUTHOR'S ORGANIZ ATION 02/03/2024 [facility] DATE CREATED AUTHOR AUTHOR'S ORGANIZ ATION 03/20/2024 [facility] dical Specialists [facility] DATE CREATED AUTHOR AUTHOR'S ORGANIZ ATION 03/26/2024 [facility] REASON FOR VISIT (unrecogniz ed [...] BE BASED ON THE PRIMARY CLINICAL RECORDS. [facility] [employer] provides no warranty or guarantee of the accuracy or completeness of information in this document.
== END 2024-04-09 10:21 | disposition home or self-care (01) ==
LOC: PM 10:20
PROVIDERS: PCP Family Medicine; Visit Provider Nurse Practitioner
DX: M54.16 Radiculopathy, lumbar region (principal); M51.369 Other intervertebral disc degeneration, lumbar region without mention of lumbar back pain or lower extremity pain; M43.16 Spondylolisthesis, lumbar region
CPT/HCPCS: G0463

== ENCOUNTER 2024-04-24 09:33 | Outpatient (OUT) | payer MEDICARE, OTHER, SELFPAY ==
--- NOTE | 2024-04-24 09:35 | MR_ITS ---
The [place] [id number] Patient Name: ALEXANDRA GARDNER MRN: [id number] date: 1950 Sex: F Assigned Patient Location: MRI Current Patient Location: [facility] Accession/Order Number: [id number] Exam Date: 04/24/2024 15:41 Report Date: 04/24/2024 15:46 At the request of: LARISSA MONK DO Procedure: MR knee RT wo con EXAMINATION: MRI OF THE RIGHT KNEE CLINICAL DATA: Chronic right anterior knee pain. COMPARISON: Right knee series 04/01/2023 TECHNIQUE: Multiecho, multiplanar imaging was performed with use of an extremity coil. No contrast was administered. FINDINGS: Joint:Moderate joint effusion with associated Noe's cyst. Bone marrow edema and cystic changes involving the lateral tibial plateau. No acute fracture line is seen. Soft tissues: Soft tissue swelling is present predominantly anteriorly. Quadriceps/Patellar tendon/retinaculum: Normal Muscles: Normal ACL:Normal PCL:Normal Medial Meniscus:Normal Lateral Meniscus:Complex tear/degeneration anterior horn. MCL:Normal LCL complex: Normal MR/MR knee RT wo con IMPRESSION: MODERATE JOINT EFFUSION WITH ASSOCIATED NOE'S CYST. BONE MARROW EDEMA AND CYSTIC CHANGES INVOLVING THE LATERAL TIBIAL PLATEAU WITH A COMPLEX TEAR/DEGENERATION INVOLVING THE ANTERIOR HORN OF THE LATERAL MENISCUS. Impression dictated by: Pa Osullivan Jr., D.O.04/24/2024 3:46 PM Dictation Location: [place] [address] Electronically authenticated by: [id number] Y Date: 04/24/2024 15:46
--- OUTSIDE RECORDS SUMMARY | 2024-04-24 09:44 | XMS_ITS | CCD ---
Author Organization [facility]ini[facility] Care Team Providers Care Customer Equipment Engineer Name Role Phone MD Cy Sears Attending Provider MD Laurita Morales Primary Care Provider [phone] LAURITA MORALES Primary Care Physician DO Luis Gutierrez Attending Provider [phone] CARMEN, DR LAURITA Solis Attending Unavailable MORALES, [...] Primary Care Unavailable SALAM, FAROOQ Attending Unavailable DR LUIS GUTIERREZ Consulting Unavailable MORALES, DR LAURITA Solis Primary Care Unavailable MORALES, DR LAURITA Solis Admitting Unavailable MORALES, DR LAURITA Solis Attending Unavailable [place], DR LONNY Wiggins Consulting Unavailable MORALES, DR [...] Admitting Unavailable Laurita Morales Primary Care Unavailable MurLuis humphrey Attending Unavailable DeRiso, Cy Attending Unavailable DeRamish Cy Admitting Unavailable Laurita Morales Primary Care Unavailable Morales, Laurita E Primary Care Unavailable MurLuis humphrey Attending Unavailable MurLuis humphrey Admitting Unavailable Alfonzo Morales[place] Unavailable Laurita Morales MD Primary Care Provider Martin Tatum Attending Unavaila ble Sarmini, Martin Talal Admitting Unavaila ble Sarmini, Martin Felicianoal Attending Unavaila ble Sarmini, Martin Felicianoal Attending Unavaila ble Sarmini, Martin Talal Admitting Unavaila ble Sarmini, Martin Felicianoal Attending Unavaila ble Sarmini, Martin Talal Admitting Unavaila ble Sarmini, Martin Felicianoal Attending Unavaila pato Tatum, Martin Khan Attending Unavaila pato GUERRERO JR., LARISSA Hurley Attending Unavaila pato GUERRERO JR., LARISSA Hurley Attending Unavaila pato GUERRERO JR., LARISSA Hurley Referring Unavaila ADALI Martin Attending Unavailable ADALI GIORDANO Referring Unavailable DANIELLE CURRAN Attending Unavailable ADALI GIORDANO Attending Unavailable ADALI GIORDANO Attending Unavailable ABHI RAMIRES Attending Unavailable ADALI GIORDANO Attending Unavailable ADALI GIORDANO Attending Unavailable Allergies Allergy Classification Reported Allergen(s) [...] every six hours for pain HYDROcodone-acetami nophen ([place]) 5-325 MG tablet Indications: Post-op pain Take [...] mg oral tablet (20 sources) Benzodiazepine Start: 04-25-2023 End: 04-21-2024 take 1 tablet by mouth twice daily as needed for anxiety Alprazolam 0.5 mg tablet Active 0.5 MG PO Twice daily as needed for anxiety 50 April 21, 2024 9:17am Start: 02-27-2023 Start: 09-03-2022 ALPRAZolam 0.5 mg TAKE ONE TABLET BY MOUTH TWICE A DAY NEEDED FOR 30 DAYS for 30 Aug, Active Start: 03-01-2022 take 1 tablet by maia twice daily as needed ALPRAZolam 0.5 mg TAKE ONE TABLET BY MOUTH TWICE A DAY NEEDED for 30 Feb, Active Start: 05-26-2021 End: 04-25-2023 take 0.5 mg by mouth twice daily Alprazolam Active 0.5 MG PO Twice daily [...] Refill(s) 0 Start Date: 12/04/23 Status: Ordered busPIRone hydrochloride 15 mg oral tablet (8 sources) Start: 02-19-2024 take 1 tablet by mouth in the morning busPIRone (Buspar) 15 MG tablet Take 15 mg by mouth in the morning and 15 mg before bedtime. 02/19/2024 Active Start: 02-18-2024 take 1 tablet by maia th twice daily Buspirone 15 mg tablet Active 0 .ROUTE .COMPLEX 60 February 18, 2024 9:46am TAKE ONE TABLET BY MOUTH TWICE A DAY Start: 01-20-2024 End: 02-18-2024 take 1 tablet by mouth twice daily Buspirone 15 mg tablet Discontinued 15 MG PO Twice daily January 20, 2024 1:00am February 18, 2024 9:46am calcium citrate 950 mg oral tablet (8 sources) Start: 01-28-2020 take 1 mg by mouth twice daily calcium (as calcium citrate) 200 mg oral tablet mg tab(s), Oral, BID, Refills(s) 0, Prophylaxis Start Date: 01/28/20 Status: Ordered diclofenac sodium 75 mg delayed release oral tablet (3 sources) Nonsteroidal Anti-inflammatory Drug Start: 05-26-2021 End: 07-03-2023 take 75 mg by mouth twice daily Diclofenac Sodium Active 75 MG PO Twice daily May 26, 2021 2:53pm take 1 tablet by maia th twice daily at mealtime as needed Diclofenac Potassium 50 MG 1 tablet with food or milk as needed Orally Twice a day Active escitalopram 20 mg oral tablet (20 sources) Serotonin Reuptake Inhibitor Start: 01-22-2024 take 1 tablet by mouth once daily Escitalopram Oxalate 20 mg tablet Active 0 .ROUTE .COMPLEX January 22, 2024 9:32am TAKE ONE TABLET BY MOUTH DAILY 30 Start: 05-26-2021 End: 01-22-2024 take 20 mg by mouth once daily in the morning Escitalopram Oxalate Active 20 MG PO Every morning May 26, 2021 2:53pm Start: 01-28-2020 escitalopram O ral, Daily, Refills(s) 0 Start Date: 01/28/20 Status: Ordered take 1 tablet by maia th once daily escitalopram (Lexapro) 10 MG tablet Take 10 mg by mouth Daily Active Eye Vitamin (2 sources) Start: 05-26-2021 take 1 tablet by maia th once daily Eye Vitamin Active 1 TAB PO Daily May 26, 2021 2:53pm Start: 05-26-2021 take 1 tablet by mouth once da katia Eye Vitamin Active 1 TAB PO Daily May 26, 2021 12:00am folic acid 1 mg oral tablet (2 sources) Start: 07-25-2020 take 1 tablet by mouth once daily Folate 1 mg Tab 1 mg = 1 tab(s), Oral, Daily, # 30 tab(s), Refills(s) 0, Pharmacy: [facility], 150, cm, 07/25/20 14:29:00 EDT, Height/Length Dosing, 69.9, kg, 07/25/20 14:29:00 EDT, Weight Dosing Start Date: 07/25/20 Status: Ordered Glucoamine (2 sources) Start: 05-26-2021 take 1 mg by mouth twice daily Glucoamine Active MG PO Twice daily May 26, 2021 2:53pm Start: 05-26-2021 take 1 mg by mouth twice daily Glucoamine Active MG PO Twice daily May 26, 2021 12:00am glucosamine 500 mg oral tablet (8 sources) [...] tablet every 8 (eight) hours Active levothyroxine (20 sources) l-Thyroxine Start: 02-20-2024 take 1 tablet by mouth once daily Levothyroxine 75 mcg tablet Active 0 .ROUTE .COMPLEX February 20, 2024 9:23am TAKE ONE TABLET BY MOUTH ONCE DAILY Start: 09-27-2023 End: 02-20-2024 take 1 tablet by mouth once daily Levothyroxine 75 mcg tablet Discontinued 0 .ROUTE .COMPLEX September 27, 2023 7:50am February 20, 2024 9:23am TAKE ONE TABLET BY MOUTH ONCE DAILY Start: 05-26-2021 End: 09-27-2023 take 75 ug by mouth once daily [...] MOUTH ONCE DAILY for 30 Active Magnesium (2 sources) Start: 05-26-2021 take 400 mg by mouth once daily Magnesium Active 400 MG PO Daily May 26, 2021 2:53pm Start: 05-26-2021 End: 07-03-2023 take 2 tablets by mouth once daily Magnesium 200 mg Tablet Discontinued 400 MG PO Daily May 26, 2021 12:00am July 03, 2023 9:06am mesalamine 1200 mg delayed release oral tablet (8 sources) Aminosalicylate Start: 01-31-2024 take 4 tablets by mouth once daily mesalamine (Lialda) 1.2 g EC tablet TAKE FOUR TABLETS BY MOUTH DAILY 01/31/2024 Active methocarbamol 750 mg oral tablet (1 source) Muscle Relaxant Methocarbamol 75 0 MG Orally Four times a day Active methylPREDNISolone (16 sources) Corticosteroid Start: 04-15-2024 methylPREDNISolone (Medrol Dospak) 4 MG tablets Indications: Acute pain of left knee Follow schedule on package instructions 21 tablet 04/15/2024 Active Start: 12-31-2023 methylPREDNISo lone (Medrol Dospak) 4 MG tablets Indications: S/P left knee arthroscopy , Left knee pain, unspecified chronicity Follow schedule on package instructions 21 tablet 12/31/2023 Active Multivitamin (Multi-Day) Tablet (1 source) Start: 05-26-2021 take 1 tablet by mouth once daily Multivitamin (Multi-Day) Tablet Active 1 TAB PO Daily May 26, 2021 2:53pm Multivitamin Tablet (1 source) Start: 05-26-2021 take 1 tablet by mouth once daily Multivitamin Tablet Active 1 TAB PO Daily May 26, 2021 12:00am Aleve (1 source) Nonsteroidal Anti-inflammatory Drug Start: 03-20-2024 take 1 mg by mouth every twelve hours Aleve mg, Oral, q12hr, Refills(s) 0 Start Date: 03/20/24 Status: Ordered NuLYTELY [place] oral powder for reconstitution (1 source) Start: 01-28-2020 take 1 dose by mouth once NuLYTELY [place] oral powder for reconstitution See Instructions, 1 EA, Refill(s) 0, PER PHYS INSRTUCTIONS, [facility], 150, cm, 01/28/20 10:49:00 EST, Height/Length Dosing, 69.9, kg, 01/28/20 10:49:00 EST, Weight Dosing Start Date: 01/28/20 Status: Ordered polyethylene glycol 3350 568514 mg / potassium chloride 1480 mg / sodium bicarbonate 5720 mg / sodium chloride 96583 mg powder for oral solution (1 source) Osmotic Laxative Start: 01-28-2020 take 1 dose by mouth once NuLYTELY [place] oral powder for reconstitution See Instructions, 1 EA, Refill(s) 0, PER PHYS INSRTUCTIONS, [facility], 150, cm, 01/28/20 10:49:00 EST, Height/Length Dosing, 69.9, kg, 01/28/20 10:49:00 EST, Weight Dosing Start Date: 01/28/20 Status: Ordered predniSONE 5 mg oral tablet (12 sources) Start: 01-16-2024 predniSONE (Deltasone) 5 MG tablet START WITH 40MG (8 TABS) BY MOUTH FOR 7 DAYS, THEN DECREASE BY 5MG (1 TAB) EVERY 7 DAYS UNTIL FINISHED 01/16/2024 Active Start: 01-16-2024 predniSONE 5 m g Tab See Instructions, Start with 40mg x1 week and decrease by 5mg every week until finished, # 252 tab(s), Refills(s) 0, Pharmacy: [facility], 69, kg, 01/15/24 9:14:00 EST, Weight Dosing Start Date: 01/16/24 Status: Ordered simvastatin 40 mg oral tablet (20 sources) HMG-CoA Reductase Inhibitor Start: 12-26-2023 take 1 tablet by mouth once daily at bedtime Simvastatin 40 mg tablet Active 0 .ROUTE .COMPLEX December 26, 2023 2:15pm TAKE ONE TABLET BY MOUTH ONCE DAILY AT BEDTIME Start: 10-24-2023 take 1 tablet by maia th at bedtime simvastatin (Zocor) 40 MG tablet Take 40 mg by mouth at bedtime 10/24/2023 Active Start: 05-26-2021 End: 12-26-2023 take 40 mg by mouth once daily [...] day(s), # 540 tab(s), Refills(s) 3, Pharmacy: [facility], 150, cm, 03/20/24 11:03:00 EST, Height/Length Dosing, 74.6, kg, 03/20/24 11:03:00 EST, Weight Dosing Start Date: 03/20/24 Stop Date: 03/15/25 Status: Ordered Start: 05-26-2021 End: 07-03-2023 take 500 mg by mouth four times daily Sulfasalazine Active 500 MG PO Four times daily May 26, 2021 2:53pm Start: 05-10-2021 [facility] sulfasalazine 500 mg Tab 1,000 mg = 2 tab(s), Oral, TID, # 180 tab(s), Refills(s) 11, Pharmacy: [facility]/pharmacy #[id number], 150, cm, 05/10/21 11:13:00 EDT, Height/Length Dosing, 71, kg, 05/10/21 11:13:00 EDT, Weight Dosing Start Date: 05/10/21 Status: Ordered take 1 tablet by maia once daily sulfaSALAzine (Azulfidine) 500 MG tablet Take 500 mg by mouth 1 (one) time each day at the same time Active Vitamin D And Calcium (2 sources) Start: 05-26-2021 Vitamin D And Calcium Active PO Twice daily May 26, 2021 2:53pm Start: 05-26-2021 Vitamin D And Calcium Active PO Twice daily May 26, 2021 12:00am zonisamide 50 mg oral capsule (17 sources) Anti-epileptic Agent Start: 10-25-2023 take 2 capsules by mouth once daily at bedtime zonisamide (Zonegran) 50 MG capsule TAKE TWO CAPSULES BY MOUTH DAILY AT BEDTIME 10/25/2023 Active Completed/Discontinued Medications Medication Drug Class(es) Dates Sig (Normalized) Sig (Original) baclofen 10 mg oral tablet (20 sources) gamma-Aminobutyri c Acid-ergic Agonist Start: 09-09-2023 End: 01-20-2024 take 1 tablet by mouth once daily as needed Baclofen 10 mg tablet Discontinued 10 MG PO Daily as needed September 09, 2023 12:00am January 20, 2024 2:04pm Start: 05-06-2023 End: 07-03-2023 take 1 tablet by mouth three times daily as needed Baclofen 10 mg tablet Discontinued 0 .ROUTE .COMPLEX 90 May 06, 2023 4:38pm July 03, 2023 9:05am TAKE ONE TABLET BY MOUTH THREE TIMES A DAY NEEDED Start: 05-26-2021 End: 05-06-2023 take 10 mg by mouth twice daily Baclofen Active 10 MG PO Twice daily May 26, 2021 2:53pm Start: 01-28-2020 baclofen Oral, TID, Refills(s) 0, Muscle pain Start Date: 01/28/20 Status: Ordered benzonatate 100 mg oral capsule (1 source) [...] a day for 10 day(s) Sep, Not-Taking omeprazole 40 mg delayed release oral capsule (20 sources) Proton Pump Inhibitor Start: 08-22-2023 End: 01-24-2024 take 1 capsule by mouth once daily Omeprazole 40 mg capsule,delayed release(DR/EC) Discontinued 40 MG PO Daily January 24, 2024 1:00am January 24, 2024 12:01pm Start: 05-26-2021 End: 09-09-2023 take 40 mg by mouth once daily at bedtime Omeprazole Active 40 MG PO Daily at bedtime May 26, 2021 2:53pm Start: 01-28-2020 omeprazole Ora l, Daily, Refills(s) 0, Control of stomach acid Start Date: 01/28/20 Status: Ordered omeprazole (PriL OSEC) [address] capsule 1 (one) time each day at the same time Active Problems Active Problems Problem Classification Problem Date Documented Date Episodic/Chronic Abdominal pain (9 sources) Abdominal pain; Translations: [Unspecified abdominal pain] 12-03-2023 Episodic Anxiety disorders (20 sources) Mixed anxiety and depressive disorder; Translations: [Other specified anxiety disorders] Onset: 02-13-2018 Chronic Comment on above: Problem List clean-u p per request of Phys. EHR Cmte Disorders of lipid metabolism (20 sources) Hyperlipidemia, unspecified; Translations: [Hyperlipoproteinemia] Onset: 09-27-2021 Chronic Esophageal disorders (17 sources) Gastroesophageal reflux disease; Translations: [Gastro-esophageal reflux disease without esophagitis] Onset: 07-10-2018 Chronic Fluid and electrolyte disorders (6 sources) Hypokalemia 12-03-2023 Episodic Joint disorders and dislocations; trauma-related (6 sources) Derangement of left knee; Translations: [Unspecified internal derangement of left knee] 02-17-2024 Chronic Joint disorders and dislocations; trauma-related (2 sources) Acute tear of medial meniscus of right knee; Translations: [Other tear of medial meniscus, current injury, right knee, initial encounter] 04-15-2024 Episodic Neoplasms of unspecified nature or uncertain behavior [...] Iliotibial band syndrome, left leg Episodic Other connective tissue disease (1 source) Foot pain; Translations: [Pain in right foot] 07-03-2023 Episodic Other lower respiratory disease (3 sources) Lung field abnormal; Translations: [Other nonspecific abnormal finding of lung field] Episodic Other nervous system disorders (9 sources) Carpal tunnel syndrome; Translations: [Carpal tunnel syndrome, unspecified upper limb] Onset: 02-13-2018 12-03-2023 Chronic Other non-traumatic joint disorders (10 sources) Pain in left knee; Translations: [Pain in joint, lower leg] 12-31-2023 Episodic Other non-traumatic joint disorders (2 sources) Pain in right knee; Translations: [Pain in joint, lower leg] 04-15-2024 Episodic Other nutritional; endocrine; and metabolic disorders [...] conditions (not mental disorders or infectious disease) (6 sources) Encounter for screening mammogram for malignant neoplasm of breast; Translations: [Patient encounter status] Onset: 05-22-2021 Episodic Other upper respiratory disease [...] Test Name Value Interpretation Reference Range Facility XR Knee - left 1 or 2 Viewso n 04-15-2024 Imaging Result: X-rays AP and lateral of left knee show mild degenerative changes with mild flattening of the articular surfaces to the medial joint line with decreased joint space height to the medial joint line. Lateral joint line appeared to be well preserved there was subchondral sclerosis noted at the medial joint line and patellofemoral joint. There is no evidence of fracture or dislocation. Bony structures visualized appeared to be adequately ossified. [facility] Radiology Study observation (narrative) [facility] Reminderson 03-24-2024 Reminders Reminders From: Radha Dominguez To: Radha Dominguez; Ramonita Keller; Sent: 03/24/2024 12:57:41 EST Show up: 05/22/2024 13:57:00 EDT Subject: Ambulatory Reminder Due Date/Time: 06/21/2024 13:57:00 EDT Reminder Please call the patient in May to schedule her colonoscopy late , with Dr Deepti Solorio [facility] Gastroenterology Office/Clin ic Noteon 03-20-2024 Gastroenterology [...] fL (01/15/24) Chloride: 100 mmol/L Low (01/15/24) [place] Absolute: 1.1 E9/L High (01/15/24) CO2: 23 mmol/L (01/15/24) [place] Auto: 10.6 % (01/15/24) Creatinine: 0.6 mg/dL [...] years, pereira (more content not included)... Normal [facility] Comment on above: Result Comment: Elec [...] EDT With: Deepti ALARCON, Martin Khan Where: [facility] [address] Medical [place] [id number]- You Need to Complete the Following Calprotectin, [...] you for choosing us for your care. Lyndsey Lawrence [facility] Gastroenterology Office/Clin ic Noteon 01-30-2024 Gastroenterology [...] for h (more content not included)... Normal [facility] Comment on above: Result Comment: Elec tronically Signed By: Deepti ALARCON, Martin Khan\.br\Date and Time Signed: 01/30/24 14:13 EST Surgical Pathology Reporton 01-22-2024 Surgical Pathology Report [facility] [address] [place] [address]- Surgical Pathology Report Collected Date/Time: 01/15/2024 12:33 [...] is entirely submitted in one cassette. (DC) DC:[facility] Microscopic Description Microscopic examination performed unless gross only specified. The use of one or more reagents in the above tests is regulated as an analyte specific reagent (ASR). The test or tests are ordered following initial H&E microscopic examination. The performance characteristics were determined by the Laboratory of [facility] Surgical Pathology. They have not been cleared or approved by the US Food and Drug Administration. The FDA has determined that such clearance or approval is not necessary. These tests are used for clinical purposes. They should not be regarded as investigational or for research. Appropriate positive and negative controls are performed and are acceptable. Normal [facility] Comment on above: Performed By: #### 4 [id number] #### [facility] [address] [place] [address] Quantiferon-TB Plus (Client Incubated)on 01-17-2024 Gamma interferon background IA Qn (Bld) 0.02 International_Unit/mL Invalid Interpretation Code [facility] Comment on above: Performed By: #### 1 [id number] #### [facility] [address] [place] [address] M. tuberculosis stim IFN-g by CD4+ CD8+ T-cells corrected for background Qn (Bld) 0.05 International_Unit/mL Invalid Interpretation Code [facility] Comment on above: Performed By: #### 1 [id number] #### [facility] [address] [place] [address] M. tuberculosis stim IFN-g by CD4+ T-cells corrected for background Qn (Bld) 0.02 International_Unit/mL Invalid Interpretation Code [facility] Comment on above: Performed By: #### 1 [id number] #### [facility] [address] [place] [address] M. tuberculosis stim IFN-g Ql (Bld) [Interp] Negative Invalid Interpretation Code Negative [facility] Comment on above: Result Comment: No [...] interferon gamma. Chemiluminescence immunoassay methodology Performed at: [facility] [address] [place] [address] [id number] PhD Kirk Cm Performed By: #### 1 [id number] #### [facility] [address] [place] [address] Mitogen stimulated gamma interferon corrected for background Qn (Bld) >10.00 Invalid Interpretation Code [facility] Comment on above: Performed By: #### 1 [id number] #### [facility] [address] [place] [address] Service comment (Unsp spec) [Interp] Comment Invalid Interpretation Code [facility] Comment on above: Result Comment: Terry [...] for the test. Performed By: #### 1 [id number] #### [facility] [address] [place] [address] Enteric Panel by PCRon 01-15 Enteric Panel by PCR Shiga Tox Interp Negative for Shiga Toxin producing E. coli Normal [facility] CHEMISTRYOrdered By: SYSTEM SYSTEM on 01-15-2024 [...] samples in close time sequence. Normal Negative [facility] Comment on above: Result Comment: This test result should be correlated with clinical presentations and medical history by a healthcare provider to determine its clinical significance.\.br\.br\ Other Comment: Order added by Discern Expert. Clostridium difficile by PCR Negative Normal Negative [facility] Comment on above: Order Comment: Order added by Discern Expert. Result Comment: This test result should be correlated with clinical presentations and medical history by a healthcare provider to determine its clinical significance. Performed By: #### 4 [id number] #### [facility] [address] [place] [address] CDiff PCRon 12-06-2023 C. difficile toxin A+B Ql (Stl) No, PCR to follow Normal [facility] Comment on above: Performed By: #### 3 [id number] #### [facility] [address] [place] [address] CDiff PCR Order Cancelled Specimen has been found to be acceptable for C. difficile testing. Normal [facility] Enteric Panel by PCRon 12-05 C. coli+jejuni+upsalien sis DNA ADELITA+non-probe Ql (Stl) Not detected Normal [facility] Comment on above: Result Comment: Test ing was performed utilizing reverse certified family mediator (RT), polymerase chain reaction (PCR), and array [...] nulcleic acid test. Performed By: #### 1 [id number] #### [facility] [address] [place] [address] E. coli stx1+stx2 genes ADELITA+non-probe Ql (Stl) Negative Normal [facility] Comment on above: Performed By: #### 1 [id number] #### [facility] [address] [place] [address] Enteric Panel by PCR Shiga Tox Interp Negative for Shiga Toxin producing E. coli Normal [facility] Enteric Panel Intrl QC Pass Normal [facility] Comment on above: Result Comment: Test ing was performed utilizing reverse certified family mediator (RT), polymerase chain reaction (PCR), and array [...] 1 and 2. Performed By: #### 1 [id number] #### [facility] [address] [place] [address] Norovirus genogroup I+II RNA ADELITA+non-probe Ql (Stl) Not detected Normal [facility] Comment on above: Performed By: #### 1 [id number] #### [facility] [address] [place] [address] Rotavirus A RNA ADELITA+non-probe Ql (Stl) Not detected Normal [facility] Comment on above: Performed By: #### 1 [id number] #### [facility] [address] [place] [address] S. enterica+bongori DNA ADELITA+non-probe Ql (Stl) Not detected Normal [facility] Comment on above: Result Comment: This test result should be correlated with clinical presentations and medical history by a healthcare provider to determine its clinical significance. Performed By: #### 1 [id number] #### [facility] [address] [place] [address] Shigella species+EIEC invasion plasmid antigen H ipaH gene ADELITA+non-probe Ql (Stl) Not detected Normal [facility] Comment on above: Performed By: #### 1 [id number] #### [facility] [address] [place] [address] V. cholerae+parahaemoly ticus+vulnificus DNA ADELITA+non-probe Ql (Stl) Not detected Normal [facility] Comment on above: Performed By: #### 1 [id number] #### [facility] [address] [place] [address] Y. enterocolitica DNA ADELITA+non-probe Ql (Stl) Not detected Normal [facility] Comment on above: Performed By: #### 1 [id number] #### [facility] [address] [place] [address] Celiac Disease Comprehensive on 12-05-2023 Endomysium IgA Ql (S) Negative Invalid Interpretation Code Negative [facility] Comment on above: Performed By: #### 1 [id number] #### [facility] [address] [place] [address] Gliadin peptide IgA Qn (S) 4 unit(s) Invalid Interpretation Code 0-19 [facility] Comment on above: Result Comment: Nega tive 0 - 19 Weak Positive 20 - 30 Moderate to Strong Positive >30 Performed By: #### 1 [id number] #### [facility] [address] [place] [address] Gliadin peptide IgG Qn (S) 3 unit(s) Invalid Interpretation Code 0-19 [facility] Comment on above: Result Comment: Nega tive 0 - 19 Weak Positive 20 - 30 Moderate to Strong Positive >30 Performed By: #### 1 [id number] #### [facility] [address] [place] [address] IgA [Mass/Vol] 248 mg/dL Invalid Interpretation Code 64-422 [facility] Comment on above: Result Comment: Perf ormed at: [facility] [address] [id number] PhD Kirk Cm Performed By: #### 1 [id number] #### [facility] [address] [place] [address] tTG IgA Qn (S) <2 Invalid Interpretation Code 0-3 [facility] Comment on above: Result Comment: Nega tive 0 - 3 Weak Positive 4 - 10 Positive >10 Tissue Transglutaminase (tTG) has been identified as the endomysial antigen. Studies have demonstr- ated that endomysial IgA antibodies have over 99% specificity for gluten sensitive enteropathy. Performed By: #### 1 [id number] #### [facility] [address] [place] [address] tTG IgG Qn (S) 5 unit/mL Invalid Interpretation Code 0-5 [facility] Comment on above: Result Comment: Nega tive 0 - 5 Weak Positive 6 - 9 Positive >9 Performed By: #### 1 [id number] #### [facility] [address] [place] [address] CHEMISTRYOrdered By: SYSTEM SYSTEM on 12-04-2023 TSH Qn 1.76 m[IU]/L Normal 0.34 - 5.60 mcIU/mL Remisol Chem TSHon 12-04-2023 TSH Qn 1.76 m[IU]/L Normal 0.34-5.60 [facility] Comment on above: Performed By: #### 2 [id number] #### [facility] [address] [place] [address] CBC AUTO DIFFon 11-21-2021 BASO # 0.1 103/ul Normal 0.0-0.1 [facility] Comment on above: Performed By: #### C BC #### [facility] [address] [place] [address] Dr. Scooby Irvin Basophils/100 WBC (Bld) 0.5 % Normal 0.2-2.0 [facility] Comment on above: Performed By: #### C BC #### [facility] [address] [place] [address] Dr. Scooby Irvin EO # 0.0 103/ul Normal 0.0-0.7 [facility] Comment on above: Performed By: #### C BC #### [facility] [address] [place] [address] Dr. Scooby Irvin Eosinophils/100 WBC (Bld) 0.1 % Critically low 0.9-7.0 [facility] Comment on above: Performed By: #### C BC #### [facility] [address] [place] [address] Dr. Scooby Irvin Erythrocyte distribution width (RBC) [Ratio] 15.1 % Critically high 11.0-15.0 [facility] Comment on above: Performed By: #### C BC #### [facility] [address] [place] [address] Dr. Scooby Irvin Hematocrit (Bld) [Volume fraction] 39.4 % Normal 36.0-48.0 [facility] Comment on above: Performed By: #### C BC #### [facility] [address] [place] [address] Dr. Scooby Irivn Hemoglobin (Bld) [Mass/Vol] 12.6 g/dL Normal 12.0-16.0 [facility] Comment on above: Performed By: #### C BC #### [facility] [address] [place] [address] Dr. Scooby Irvin IG # 0.05 10e3/ul Critically high 0.00-0.03 [facility] Comment on above: Performed By: #### C BC #### [facility] [address] [place] [address] Dr. Scooby Irvin IG % 0.5 % Normal 0.0-0.5 [facility] Comment on above: Performed By: #### C BC #### [facility] [address] [place] [address] Dr. Scooby Irvin LYMPH # 1.3 103/ul Normal 1.2-3.8 [facility] Comment on above: Performed By: #### C BC #### [facility] [address] [place] [address] Dr. Scooby Irvin Lymphocytes/100 WBC (Bld) 13.2 % Critically low 20.5-60.0 [facility] Comment on above: Performed By: #### C BC #### [facility] [address] [place] [address] Dr. Scooby Irvin MANUAL DIFF REQ NO Normal [facility] Comment on above: Performed By: #### C BC #### [facility] [address] [place] [address] Dr. Scooby Irvin MCH (RBC) [Entitic mass] 30.0 pg Normal 26.7-34.0 [facility] Comment on above: Performed By: #### C BC #### [facility] [address] [place] [address] Dr. Scooby Irvin MCHC (RBC) [Mass/Vol] 32.0 g/dL Normal 29.9-35.2 [facility] Comment on above: Performed By: #### C BC #### [facility] [address] [place] [address] Dr. Scooby Irvin MCV (RBC) [Entitic vol] 93.8 fL Normal 81.0-99.0 [facility] Comment on above: Performed By: #### C BC #### [facility] [address] [place] [address] Dr. Scooby Irvin MONO # 0.7 103/ul Normal 0.3-0.8 [facility] Comment on above: Performed By: #### C BC #### [facility] [address] [place] [address] Dr. Scooby Irvin Monocytes/100 WBC (Bld) 7.2 % Normal 1.7-12.0 [facility] Comment on above: Performed By: #### C BC #### [facility] [address] [place] [address] Dr. Scooby Irvin NEUT # 7.5 103/ul Critically high 1.4-6.5 [facility] Comment on above: Performed By: #### C BC #### [facility] [address] [place] [address] Dr. Scooby Irvin Neutrophils/100 WBC (Bld) 78.5 % Critically high 43.0-75.0 [facility] Comment on above: Performed By: #### C BC #### [facility] [address] [place] [address] Dr. Scooby Irvin Platelet mean volume (Bld) [Entitic vol] 9.9 fL Normal 9.5-13.5 [facility] Comment on above: Performed By: #### C BC #### [facility] [address] [place] [address] Dr. Scooby Irvin PLT 230 103/ul Normal 150-450 [facility] Comment on above: Performed By: #### C BC #### [facility] [address] [place] [address] Dr. Scooby Irvin RBC 4.20 106/ul Normal 4.20-5.40 [facility] Comment on above: Performed By: #### C BC #### [facility] [address] [place] [address] Dr. Scooby Irvin WBC 9.5 103/ul Normal 4.0-11.0 [facility] Comment on above: Performed By: #### C BC #### [facility] [address] [place] [address] Dr. Scooby Irvin PROF 14(COMP METB)on 022 Albumin [Mass/Vol] 3.9 g/dL Normal 3.4-5.0 [facility] Comment on above: Performed By: #### C BC #### [facility] [address] [place] [address] Dr. Scooby Irvin Albumin/Globulin [Mass ratio] 1.0 {ratio} Normal [facility] Comment on above: Performed By: #### C BC #### [facility] [address] [place] [address] Dr. Scooby Irvin ALP [Catalytic activity/Vol] 87 U/L Normal 46-116 [facility] Comment on above: Performed By: #### C BC #### [facility] [address] [place] [address] Dr. Scooby Irvin ALT [Catalytic activity/Vol] 29 U/L Normal 14-59 [facility] Comment on above: Performed By: #### C BC #### [facility] [address] [address] [address] Scooby Irvin Anion gap [Moles/Vol] 14.1 mmol/L Normal [facility] Comment on above: Performed By: #### C BC #### [facility] [address] [address] [address] Scooby Irvin AST [Catalytic activity/Vol] 38 U/L Critically high 15-37 [facility] Comment on above: Performed By: #### C BC #### [facility] [address] [address] [address] Scooby Irvin Bilirubin [Mass/Vol] 0.5 mg/dL Normal 0.2-1.0 [facility] Comment on above: Performed By: #### C BC #### [facility] [address] [place] [address] Dr. Scooby Irvin Calcium [Mass/Vol] 9.2 mg/dL Normal 8.5-10.1 [facility] Comment on above: Performed By: #### C BC #### [facility] [address] [place] [address] Dr. Scooby Irvin Chloride [Moles/Vol] 102 mmol/L Normal 98-107 [facility] Comment on above: Performed By: #### C BC #### [facility] [address] [place] [address] Dr. Scooby Irvin CO2 [Moles/Vol] 25.7 mmol/L Normal 21.0-32.0 [facility] Comment on above: Performed By: #### C BC #### [facility] [address] [place] [address] Dr. Scooby Irvin Creatinine [Mass/Vol] 0.76 mg/dL Normal 0.55-1.02 [facility] Comment on above: Performed By: #### C BC #### [facility] [address] [place] [address] Dr. Scooby Irvin EGFR-AF MALTESE >60 Normal >=60 [facility] Comment on above: Performed By: #### C BC #### [facility] [address] [address] [address] Scooby Irvin EGFR-NON AF MALTESE >60 Normal >=60 [facility] Comment on above: Performed By: #### C BC #### [facility] [address] [address] [address] Scooby Irvin Globulin (S) [Mass/Vol] 3.8 g/dL Normal [facility] Comment on above: Performed By: #### C BC #### [facility] [address] [address] [address] Scooby Irvin Glucose [Mass/Vol] 104 mg/dL Normal 74-106 [facility] Comment on above: Performed By: #### C BC #### [facility] [address] [place] [address] Dr. Scooby Irvin Potassium [Moles/Vol] 4.8 mmol/L Normal 3.5-5.1 [facility] Comment on above: Performed By: #### C BC #### [facility] [address] [place] [address] Dr. Scooby Irvin Protein [Mass/Vol] 7.7 g/dL Normal 6.4-8.2 [facility] Comment on above: Performed By: #### C BC #### [facility] [address] [place] [address] Dr. Scooby Irvin Sodium [Moles/Vol] 137 mmol/L Normal 136-145 [facility] Comment on above: Performed By: #### C BC #### [facility] [address] [place] [address] Dr. Scooby Irvin Urea nitrogen [Mass/Vol] 9.0 mg/dL Normal 7.0-18.0 [facility] Comment on above: Performed By: #### C BC #### [facility] [address] [place] [address] Dr. Scooby Irvin Urea nitrogen/Creatinine [Mass ratio] 11.8 mg/mg Normal [facility] Comment on above: Performed By: #### C BC #### [facility] [address] [place] [address] Dr. Scooby Irvin LIPID PROFILEon 09-27-2021 CHOL-HDL RATIO NORM SEE BELOW Normal [facility] Comment on above: Result Comment: 3.3 - 4.4 LOW RISK 4.4 - 7.1 AVERAGE RISK 7.1 - 11.0 MODERATE RISK >11.0 HIGH RISK Performed By: #### C MP, LIPID #### [facility] [address] [address] [address] Scooby Irvin Cholesterol [Mass/Vol] 235 mg/dL Critically high <=200 [facility] Comment on above: Performed By: #### C MP, LIPID #### [facility] [address] [address] [address] Scooby Irvin Cholesterol in HDL [Mass/Vol] 65 mg/dL Critically high 40-60 [facility] Comment on above: Performed By: #### C MP, LIPID #### [facility] [address] [address] [address] Scooby Irvin Cholesterol in LDL [Mass/Vol] 156.8 mg/dL Normal [facility] Comment on above: Performed By: #### C MP, LIPID #### [facility] [address] [address] [address] Scooby Irivn Cholesterol.total/Ch olesterol in HDL [Mass ratio] 3.6 {ratio} Normal [facility] Comment on above: Performed By: #### C MP, LIPID #### [facility] [address] [address] [address] Scooby Irvin HDL NORMAL > or = 60 mg/dl - LO W CARDIOVASCULAR RISK <40 mg/dl - HIGH CARDIOVASCULAR RISK Normal [facility] Comment on above: Performed By: #### C MP, LIPID #### [facility] [address] [address] [address] Scooby Irvin LDL CALC NORMAL SEE BELOW Normal [facility] Comment on above: Result Comment: <100 mg/dl OPTIMAL 100 - 129 mg/dl NEAR OR ABOVE OPTIMAL 130 - 159 mg/dl BORDERLINE HIGH 160 - 189 mg/dl HIGH >190 mg/dl VERY HIGH Performed By: #### C MP, LIPID #### [facility] [address] [address] [address] Scooby Irvin Triglyceride [Mass/Vol] 66 mg/dL Normal <=150 [facility] Comment on above: Performed By: #### C MP, LIPID #### [facility] [address] [place] [address] Dr. Scooby Irvin VLDL CALC 13.2 mg/dL Normal [facility] Comment on above: Performed By: #### C MP, LIPID #### [facility] [address] [place] [address] Dr. Scooby Irvin PROF 14(COMP METB)on 022 Albumin [Mass/Vol] 3.9 g/dL Normal 3.4-5.0 [facility] Comment on above: Performed By: #### C MP, LIPID #### [facility] [address] [place] [address] Dr. Scooby Irvin Albumin/Globulin [Mass ratio] 1.1 {ratio} Normal [facility] Comment on above: Performed By: #### C MP, LIPID #### [facility] [address] [place] [address] Dr. Scooby Irvin ALP [Catalytic activity/Vol] 87 U/L Normal 46-116 [facility] Comment on above: Performed By: #### C MP, LIPID #### [facility] [address] [place] [address] Dr. Scooby Irvin ALT [Catalytic activity/Vol] 27 U/L Normal 14-59 [facility] Comment on above: Performed By: #### C MP, LIPID #### [facility] [address] [place] [address] Dr. Scooby Irvin Anion gap [Moles/Vol] 16.9 mmol/L Normal [facility] Comment on above: Performed By: #### C MP, LIPID #### [facility] [address] [place] [address] Dr. Scooby Irvin AST [Catalytic activity/Vol] 21 U/L Normal 15-37 [facility] Comment on above: Performed By: #### C MP, LIPID #### [facility] [address] [place] [address] Dr. Scooby Irvin Bilirubin [Mass/Vol] 0.4 mg/dL Normal 0.2-1.0 [facility] Comment on above: Performed By: #### C MP, LIPID #### [facility] [address] [place] [address] Dr. Scooby Irvin Calcium [Mass/Vol] 8.7 mg/dL Normal 8.5-10.1 [facility] Comment on above: Performed By: #### C MP, LIPID #### [facility] [address] [place] [address] Dr. Scooby Irvin Chloride [Moles/Vol] 102 mmol/L Normal 98-107 [facility] Comment on above: Performed By: #### C MP, LIPID #### [facility] [address] [place] [address] Dr. Scooby Irvin CO2 [Moles/Vol] 22.0 mmol/L Normal 21.0-32.0 [facility] Comment on above: Performed By: #### C MP, LIPID #### [facility] [address] [place] [address] Dr. Scooby Irvin Creatinine [Mass/Vol] 0.73 mg/dL Normal 0.55-1.02 [facility] Comment on above: Performed By: #### C MP, LIPID #### [facility] [address] [place] [address] Dr. Scooby Irvin EGFR-AF MALTESE >60 Normal >=60 [facility] Comment on above: Performed By: #### C MP, LIPID #### [facility] [address] [place] [address] Dr. Scooby Irvin EGFR-NON AF MALTESE >60 Normal >=60 [facility] Comment on above: Performed By: #### C MP, LIPID #### [facility] [address] [place] [address] Dr. Scooby Irvin Globulin (S) [Mass/Vol] 3.7 g/dL Normal [facility] Comment on above: Performed By: #### C MP, LIPID #### [facility] [address] [place] [address] Dr. Scooby Irvin Glucose [Mass/Vol] 105 mg/dL Normal 74-106 [facility] Comment on above: Performed By: #### C MP, LIPID #### [facility] [address] [address] [address] Scooby Irvin Potassium [Moles/Vol] 3.9 mmol/L Normal 3.5-5.1 [facility] Comment on above: Performed By: #### C MP, LIPID #### [facility] [address] [address] [address] Scooby Irvin Protein [Mass/Vol] 7.6 g/dL Normal 6.4-8.2 [facility] Comment on above: Performed By: #### C MP, LIPID #### [facility] [address] [place] [address] Dr. Scooby Irvin Sodium [Moles/Vol] 137 mmol/L Normal 136-145 [facility] Comment on above: Performed By: #### C MP, LIPID #### [facility] [address] [place] [address] Dr. Scooby Irvin Urea nitrogen [Mass/Vol] 11.0 mg/dL Normal 7.0-18.0 [facility] Comment on above: Performed By: #### C MP, LIPID #### [facility] [address] [place] [address] Dr. Scooby Irvin Urea nitrogen/Creatinine [Mass ratio] 15.1 mg/mg Normal [facility] Comment on above: Performed By: #### C MP, LIPID #### [facility] [address] [place] [address] Dr. Scooby Irvin TSHon 09-27-2021 TSH 2.198 uIU/mL Normal 0.358-3.74 0 [facility] Comment on above: Performed By: #### T SH #### [facility] [address] [place] [address] Dr. Scooby Irvin Covid-19 PCR (CVDTB)on 09-11 SARS-CoV-2 (COVID-19) RNA ADELITA+probe Ql (Unsp spec) Not detected Normal NOT DETECTED [facility] Comment on above: Result Comment: This test is not yet approved or cleared by the [place] FDA. When there are no FDA-approved or cleared tests available, and other criteria are met, FDA can make tests available under an emergency access mechanism called an Emergency Use Authorization (EUA). The EUA for this test is supported by the Superintendent Maintenance of Health and Human Service's (HHS's) declaration [...] SARS-CoV-2. Performed By: #### C BC #### [facility] [address] [place] [address] Dr. Scooyb Irvin TSHon 06-22-2021 TSH 2.326 uIU/mL Normal 0.358-3.74 0 [facility] Comment on above: Performed By: #### C BC #### [facility] [address] [place] [address] Dr. Scooby Irvin TSH RANGE SEE BELOW Normal [facility] Comment on above: Result Comment: <0.3 4 UIU/ml HYPERTHYROID 0.34-5.60 UIU/ml EUTHYROID >5.60 UIU/ml HYPOTHYROID Performed By: #### C BC #### [facility] [address] [place] [address] Dr. Scooby Irvin ABO/Rh Retypeon 05-31-2021 ABO/RH Recheck Result Positive Normal [facility] Comment on above: Result Comment: PERF ORMED BY: [facility] [address] [place] [address] PATHOLOGIST FLOOR COVERING INSTALLER TRICIA Yin 05-31-2021 L -------- -------- Specimen: Received: 05/31/21 Status: LIDIA Reyesduong Num: [id number] Spec Type: Surgical Subm Dr: Luis Gutierrez DO Tissues: A Parathyroid Gland (R/O PARATHYROID) B THYROID - Lobe (R SUBSTERNAL THYROID) Procedures: HE Stain/8, Gross/Micro L5, Gross/Micro L4 -------- Patient Age/Sex Location Account Attending Physician -------- Alexandra Cervantes 71/F [place] [id number] Luis Gutierrez DO -------- SPEC NUM: RECD: 05/31/21 STATUS: LIDIA GUCCI NUM: [id number] KATHY: 05/31/21- SUBM DR: Luis Gutierrez DO ENTERED: 05/31/[address] [facility] [address]: SPEC TYPE: Surgical DEPT: S ORDERED: [...] Sectioning of the sutured nodule -------- Specimen: [id number] Received: 05/31/21 Status: LIDIA Pineda Num: [id number] Spec Type: Surgical Subm Dr: Luis Gutierrez DO Tissues: A Parathyroid Gland (R/O PARATHYROID) B THYROID - Lobe (R SUBSTERNAL THYROID) Procedures: HE Stain/8, Gross/Micro L5, Gross/Micro L4 -------- Patient: Jey Cervantesha [id number] (Continued) -------- Specimen: Received: 05/31/21 (Continued) Gross Description (Continued) Signed (signature on file) Tricia Oshea MD 06/01/211912 -------- Specimen: Received: 05/31/21 Status: LIDIA Pineda Num: [id number] Spec Type: Surgical Subm Dr: Luis Gutierrez DO Tissues: A Parathyroid Gland (R/O PARATHYROID) B THYROID - Lobe (R SUBSTERNAL THYROID) Procedures: HE Stain/8, Gross/Micro L5, Gross/Micro L4 -------- Patient: AmyantoninaAlexandra [id number] (Continued) -------- Specimen: [id number] Received: 05/31/21 (Continued) Gross Description (Continued) demonstrates [...] microscopic findings support the above pathologic diagnosis. [id number], [id number], [id number] -------- -------- Specimen: Received: 04/ (more content not included)... Normal [facility] LeukoReduced RBCon 2 LeukoReduced RBC READY Normal [facility] Type and Screenon 05-31-2021 ABO and Rh group Nom (Bld) Blood group O Rh(D) positive Normal [facility] Comment on above: Order Comment: Trans fuse now? N Result Comment: PERF ORMED BY: [place] [address] PATHOLOGIST FLOOR COVERING INSTALLER TRICIA OSHEA M.D. Basic Metabolic Panelon 05-12 Calcium [Mass/Vol] 9.5 mg/dL Normal 8.2-10.2 [facility] Comment on above: Result Comment: PERF ORMED BY: [place] [address] PATHOLOGIST FLOOR COVERING INSTALLER TRICIA OSHEA M.D. Performed By: #### C BC, BMP #### [address] Chloride [Moles/Vol] 105 mmol/L Normal 95-114 [facility] Comment on above: Performed By: #### C BC, BMP #### [address] CO2 [Moles/Vol] 23.0 mmol/L Normal 22.0-30.0 [facility] Comment on above: Performed By: #### C BC, BMP #### [facility] [address] [place] [address] Creatinine [Mass/Vol] 0.66 mg/dL Normal 0.44-1.03 [facility] Comment on above: Performed By: #### C BC, BMP #### [facility] [address] [place] [address] [place] Estimated GFR ( Traci > 60 Normal [facility] Comment on above: Result Comment: GFR estimated reference range: According to KDOQI guidelines, <60 ml/min/1.73m2 is sufficient to diagnose a patient with chronic kidney disease. Performed By: #### C BC, BMP #### [address] [place] [address] [place] Estimated GFR (Non- Am > 60 Normal [facility] Comment on above: Performed By: #### C BC, BMP #### [facility] [address] Glucose [Mass/Vol] 89 mg/dL Normal 70-100 [facility] Comment on above: Result Comment: [place] Glucose Reference Range is dependent on time and content of last meal. Glucose of more than 200 mg/dL in a nonstressed, ambulatory subject supports the diagnosis of Diabetes Mellitus. ADA recommended reference range Performed By: #### C BC, BMP #### [facility] [address] Potassium [Moles/Vol] 4.0 mmol/L Normal 3.5-5.1 [facility] Comment on above: Performed By: #### C BC, BMP #### [facility] [address] Sodium [Moles/Vol] 137 mmol/L Normal 136-146 [facility] Comment on above: Performed By: #### C BC, BMP #### [facility] [address] Urea nitrogen [Mass/Vol] 10 mg/dL Normal 9-23 [facility] Comment on above: Performed By: #### C BC, BMP #### [address] Basophils Auto (Bld) [#/Vol] Ordered By: Luis Gutierrez on 05-26-2021 Basophils (Bld) [#/Vol] 0.1 10*3/uL 0.0-0.2 [facility] Basophils/100 WBC Auto (Bld) Ordered By: Luis Gutierrez on 05-26-2021 Basophils/100 WBC (Bld) 0.9 % [facility] Blood hemoglobin measurement (mass/volume)Ordered By: Luis Gutierrez on 05-26-2021 Hemoglobin (Bld) [Mass/Vol] 12.4 g/dL 11.8-15.4 [facility] Blood leukocytes automated c ount (number/volume)Ordered By: Luis Gutierrez on 05-26-2021 WBC (Bld) [#/Vol] 8.8 10*3/uL 4.5-11.0 [facility] SARS-CoV-2 (COVID-19) RNA ADELITA+probe Ql (Unsp spec) Negative Normal Negative [facility] Comment on above: Order Comment: Healt hcare Worker?: N Result Comment: Testing for SARS-CoV-2 by RT-PCR This test was developed and its performance characteristics determined by [employer] ([employer]) and validated at the [facility] [...] is terminated or revoked sooner. PERFORMED BY: [place] [address] PATHOLOGIST FLOOR COVERING INSTALLER TRICIA OSHEA M.D. Performed By: #### C OVID 19 [facility] #### [address] COVID-19 Positive/NegativeOr dered By: Luis Gutierrez on 05-26-2021 SARS-CoV-2 (COVID-19) N gene ADELITA+probe Ql (Resp) Negative Negative [facility] Comment on above: Testing for SARS-CoV -2 by RT-PCRThis test was developed and its performance characteristics determined by [employer] ([employer]) and validated at the [facility] [...] 05-26-2021 Calcium [Mass/Vol] 9.4 mg/dL Normal 8.2-10.2 [facility] Comment on above: Performed By: #### C A, TSH3, PTH #### [facility] [address] [place] [address] Complete Blood Count Auto Di ffon 05-26-2021 Basophils (Bld) [#/Vol] 0.1 10*3/uL Normal 0.0-0.2 [facility] Comment on above: Result Comment: PERF ORMED BY: [place] [address] PATHOLOGIST FLOOR COVERING INSTALLER TRICIA OSHEA M.D. Performed By: #### C BC, BMP #### [place] [address] [place] Basophils/100 WBC (Bld) 0.9 % Normal . [facility] Comment on above: Performed By: #### C BC, BMP #### [facility] [address] [place] [address] [place] Eosinophils (Bld) [#/Vol] 0.0 10*3/uL Normal 0.0-0.45 [facility] [facility] Comment on above: Performed By: #### C BC, BMP #### [place] [address] [place] Eosinophils/100 WBC (Bld) 0.2 % Normal . [facility] Comment on above: Performed By: #### C BC, BMP #### [facility] [address] Erythrocyte distribution width (RBC) [Ratio] 16.1 % High 11.9-15.3 [facility] Comment on above: Performed By: #### C BC, BMP #### [facility] [address] Hematocrit (Bld) [Volume fraction] 37.5 % Normal 34.0-46.4 [facility] Comment on above: Performed By: #### C BC, BMP #### [facility] [address] Hemoglobin (Bld) [Mass/Vol] 12.4 g/dL Normal 11.8-15.4 [facility] Comment on above: Performed By: #### C BC, BMP #### [address] Lymphocytes (Bld) [#/Vol] 1.4 10*3/uL Normal 1.00-4.8 [facility] Comment on above: Performed By: #### C BC, BMP #### [place] [address] [place] Lymphocytes/100 WBC (Bld) 15.8 % Normal . [facility] Comment on above: Performed By: #### C BC, BMP #### [facility] [address] MCH (RBC) [Entitic mass] 29.2 pg Normal 24.7-34.3 [facility] Comment on above: Performed By: #### C BC, BMP #### [facility] [address] [place] [address] [place] MCV (RBC) [Entitic vol] 88.3 fL Normal 80-100 [facility] Comment on above: Performed By: #### C BC, BMP #### [address] Mean Corpuscular HGB Conc 33.1 g/dL Normal 32.0-35.0 [facility] Comment on above: Performed By: #### C BC, BMP #### [facility] [address] [place] [address] [place] Monocytes (Bld) [#/Vol] 0.7 10*3/uL Normal 0.0-0.8 [facility] Comment on above: Performed By: #### C BC, BMP #### [facility] [address] [place] [address] [place] Monocytes/100 WBC (Bld) 7.7 % Normal . [facility] Comment on above: Performed By: #### C BC, BMP #### [facility] [address] [place] [address] [place] Neutrophils (Bld) [#/Vol] 6.7 10*3/uL Normal 1.8-7.7 [facility] Comment on above: Performed By: #### C BC, BMP #### [facility] [address] [place] [id number] [place] Neutrophils/100 WBC (Bld) 75.4 % Normal . [facility] Comment on above: Performed By: #### C BC, BMP #### [facility] [address] [place] [address] [place] Nucleated RBC/100 WBC (Bld) [Ratio] 0.1 % Normal 0-0.5 [facility] Comment on above: Performed By: #### C BC, BMP #### [facility] [address] [place] [id number] [place] Platelet mean volume (Bld) [Entitic vol] 8.6 fL Normal 6.3-10.7 [facility] Comment on above: Performed By: #### C BC, BMP #### [facility] [address] [place] [address] [place] Platelets (Bld) [#/Vol] 241 10*3/uL Normal 150-450 [facility] Comment on above: Performed By: #### C BC, BMP #### [facility] [address] [place] [address] [place] RBC (Bld) [#/Vol] 4.24 10*6/uL Normal 3.60-5.00 [facility] Comment on above: Performed By: #### C KELSEY, BMP #### [facility] [address] [place] [address] [place] WBC (Bld) [#/Vol] 8.8 10*3/uL Normal 4.5-11.0 [facility] Comment on above: Performed By: #### C BC, BMP #### [facility] [address] Creatinine and Glomerular fi ltration rate.predicted panel (S/P/Bld)Ordered By: Luis Gutierrez on 05-26-2021 Creatinine [Mass/Vol] 0.66 mg/dL 0.44-1.03 [facility] ECG 12 lead ECGon 05-26-2021 ECG 12 lead ECG [facility] [place] [address] [place] [address] Electrocardiograph Report Signed Patient: Alexandra Cervantes MR#: [id number] 2 : 1950 Acct:[id number] Age/Sex: 71 / F ADM Date: 05/26/21 Loc: Room: Type: [facility] Attending Dr: Luis Gutierrez DO Ordering [...] 8:48:58 AM Referred By: MATT Electronically Signed By:FREDI HAINES DO Transcribed By: MUS Signed By Fredi Haines DO 05/27 0848 Normal [facility] [...] 05-26-2021 MCHC (RBC) [Mass/Vol] 33.1 g/dL 32.0-35.0 [facility] MCV Auto (RBC) [Entitic vol] Ordered By: Luis Gutierrez on 05-26-2021 MCV (RBC) [Entitic vol] 88.3 fL 80-100 [facility] Monocytes Auto (Bld) [#/Vol] Ordered By: Luis Gutierrez on 05-26-2021 Monocytes (Bld) [#/Vol] 0.7 10*3/uL 0.0-0.8 [facility] Monocytes/100 WBC Auto (Bld) Ordered By: Luis Gutierrez on 05-26-2021 Monocytes/100 WBC (Bld) 7.7 % [facility] Neutrophils Auto (Bld) [#/Vo l]Ordered By: [...] on above: Result Comment: PERF ORMED BY: [place] [address] PATHOLOGIST FLOOR COVERING INSTALLER TRICIA OSHEA M.D. Performed By: #### C BC, BMP #### [address] Platelet mean volume Auto (B ld) [Entitic vol]Ordered By: Luis Gutierrez on 05-26-2021 Platelet mean volume (Bld) [Entitic vol] 8.6 fL 6.3-10.7 [facility] Platelets Auto (Bld) [#/Vol] Ordered By: Luis Gutierrez on 05-26-2021 Platelets (Bld) [#/Vol] 241 10*3/uL 150-450 [facility] RBC Auto (Bld) [#/Vol]Ordere d By: Luis Gutierrez on 05-26-2021 RBC (Bld) [#/Vol] 4.24 10*6/uL 3.60-5.00 [facility] Serum or plasma calcium joseph urement (mass/volume)Ordered By: Luis Gutierrez on 05-26-2021 Calcium [Mass/Vol] 9.4 mg/dL 8.2-10.2 [facility] Serum or plasma chloride liv surement (moles/volume)Ordered By: Luis Gutierrez on 05-26-2021 Chloride [Moles/Vol] 105 mmol/L 95-114 [facility] Serum or plasma glucose joseph urement (mass/volume)Ordered By: Lius Gutierrez on 05-26-2021 Glucose [Mass/Vol] 89 mg/dL 70-100 [facility] Comment on above: ADA recommended refe rence rangeRandom Glucose Reference Range is dependent on time and content of last meal. Glucose of more than 200 mg/dL in a nonstressed, ambulatory subject supports the diagnosis of Diabetes Mellitus. Serum or plasma intact parat hyroid hormone measurement (mass/volume)Ordered By: Luis Gutierrez on 05-26-2021 Parathyrin.intact [Mass/Vol] 31.2 pg/mL 12- [facility] Serum or plasma potassium me asurement (moles/volume)Ordered By: Luis Gutierrez on 05-26-2021 Potassium [Moles/Vol] 4.0 mmol/L 3.5-5.1 [facility] Serum or plasma sodium measu rement (moles/volume)Ordered By: Luis Gutierrez on 05-26-2021 Sodium [Moles/Vol] 137 mmol/L 136-146 [facility] Serum or plasma total carbon dioxide measurement (moles/volume)Ordered By: Luis Gutierrez on 05-26-2021 CO2 [Moles/Vol] 23.0 mmol/L 22.0-30.0 [facility] Serum or plasma urea nitroge n measurement (mass/volume)Ordered By: Luis Gutierrez on 05-26-2021 Urea nitrogen [Mass/Vol] 10 mg/dL 9-23 [facility] TSH DL <= 0.005 mIU/L QnOrde red By: Luis Gutierrez on 05-26-2021 TSH Qn 0.86 m[IU]/L 0.45-5.33 [facility] Thyroid Stimulating Hormoneo n 05-26-2021 TSH Qn 0.86 m[IU]/L Normal 0.45-5.33 [facility] Comment on above: Performed By: #### C A, TSH3, PTH #### [facility] [address] MG MAMM SCREEN 3D GEORGES CADon 05-22-2021 MG MAMM SCREEN 3D GEORGES CAD Patient: ALEXANDRA CERVANTES Exam Date: 05/22/2021 : 1950 Gender:F Ordering : DR LAURITA MORALES M.D. Admission #: [id number] Family : Order #: [id number] CLICK HERE TO VIEW EXAM RADIOLOGY REPORT [...] No Treatments None Family Cancers None LOCATION: [facility] BREAST COMPOSITION: Scattered areas fibroglandular density. [...] Killian MD on 05/22/2021 at 12:06 Normal [facility] CT Chest w/Contraston 2021 CT Chest w/Contrast Please see CT neck r eport dated: 05/17/2021. Report reported and signed by Fuentes Lion on 05/22/2021 [address] [facility] CT Soft Tissue Neck w/ [...] Lion on 05/22/2021 1528 Normal [facility] Specialist [place] esophaguson 05-04-2021 [place] esophagus [facility] [place] [address] Fluoroscopy Report Signed Patient: Alexandra Cervantes MR#: [id number] 2 : 1950 Acct:[id number] Age/Sex: 71 / F ADM Date: 05/04/21 Loc: Room: Type: [facility] Attending Dr: Cy Sears MD Ordering [...] Kitchen Jr., M.D.05/04/2021 3:37 PM Dictation Location: [place] [address] Transcribed By: [facility] 05/04/211536 Dictated By: Selvin Kitchen Jr, MD 05/04/211531 Signed By: 05/04/211536 [facility] CBC AUTO DIFFon 04-20-2021 BASO # 0.1 103/ul Normal 0.0-0.1 [facility] Comment on above: Performed By: #### C BC #### [facility] [address] [place] [address] Dr. Scooby Irvin Basophils/100 WBC (Bld) 0.4 % Normal 0.2-2.0 [facility] Comment on above: Performed By: #### C BC #### [facility] [address] [place] [address] Dr. Scooby Irvin EO # 0.0 103/ul Normal 0.0-0.7 [facility] Comment on above: Performed By: #### C BC #### [facility] [address] [place] [address] Dr. Scooby Irvin Eosinophils/100 WBC (Bld) 0.2 % Critically low 0.9-7.0 [facility] Comment on above: Performed By: #### C BC #### [facility] [address] [place] [address] Dr. Scooby Irvin Erythrocyte distribution width (RBC) [Ratio] 16.7 % Critically high 11.0-15.0 [facility] Comment on above: Performed By: #### C BC #### [facility] [address] [place] [address] Dr. Scooby Irvin Hematocrit (Bld) [Volume fraction] 37.6 % Normal 36.0-48.0 [facility] Comment on above: Performed By: #### C BC #### [facility] [address] [place] [address] Dr. Scooby Irvin Hemoglobin (Bld) [Mass/Vol] 12.0 g/dL Normal 12.0-16.0 [facility] Comment on above: Performed By: #### C BC #### [facility] [address] [place] [address] Dr. Scooby Irvin IG # 0.02 10e3/ul Normal 0.00-0.03 [facility] Comment on above: Performed By: #### C BC #### [facility] [address] [place] [address] Dr. Scooby Irvin IG % 0.2 % Normal 0.0-0.5 [facility] Comment on above: Performed By: #### C BC #### [facility] [address] [place] [address] Dr. Scooby Irvin LYMPH # 1.6 103/ul Normal 1.2-3.8 [facility] Comment on above: Performed By: #### C BC #### [facility] [address] [place] [address] Dr. Scooby Irvin Lymphocytes/100 WBC (Bld) 13.6 % Critically low 20.5-60.0 [facility] Comment on above: Performed By: #### C BC #### [facility] [address] [place] [address] Dr. Scooby Irvin MANUAL DIFF REQ NO Normal [facility] Comment on above: Performed By: #### C BC #### [facility] [address] [place] [address] Dr. Scooby Irvin MCH (RBC) [Entitic mass] 28.6 pg Normal 26.7-34.0 [facility] Comment on above: Performed By: #### C BC #### [facility] [address] [place] [address] Dr. Scooby Irvin MCHC (RBC) [Mass/Vol] 31.9 g/dL Normal 29.9-35.2 [facility] Comment on above: Performed By: #### C BC #### [facility] [address] [place] [address] Dr. Scooby Irvin MCV (RBC) [Entitic vol] 89.5 fL Normal 81.0-99.0 [facility] Comment on above: Performed By: #### C BC #### [facility] [address] [place] [address] Dr. Scooby Irvin MONO # 0.7 103/ul Normal 0.3-0.8 [facility] Comment on above: Performed By: #### C BC #### [facility] [address] [place] [address] Dr. Scooby Irvin Monocytes/100 WBC (Bld) 5.8 % Normal 1.7-12.0 [facility] Comment on above: Performed By: #### C BC #### [facility] [address] [place] [address] Dr. Scooby Irvin NEUT # 9.1 103/ul Critically high 1.4-6.5 [facility] Comment on above: Performed By: #### C BC #### [facility] [address] [place] [address] Dr. Scooby Irvin Neutrophils/100 WBC (Bld) 79.8 % Critically high 43.0-75.0 [facility] Comment on above: Performed By: #### C BC #### [facility] [address] [place] [address] Dr. Scooby Irvin Platelet mean volume (Bld) [Entitic vol] 10.2 fL Normal 9.5-13.5 [facility] Comment on above: Performed By: #### C BC #### [facility] [address] [place] [address] Dr. Scooby Irvin PLT 217 103/ul Normal 150-450 [facility] Comment on above: Performed By: #### C BC #### [facility] [address] [place] [address] Dr. Scooby Irvin RBC 4.20 106/ul Normal 4.20-5.40 [facility] Comment on above: Performed By: #### C BC #### [facility] [address] [place] [address] Dr. Scooby Irvin WBC 11.4 103/ul Critically high 4.0-11.0 [facility] Comment on above: Performed By: #### C BC #### [facility] [address] [place] [address] Dr. Scooby Irvin PROF 14(COMP METB)on 022 Albumin [Mass/Vol] 3.9 g/dL Normal 3.5-5.0 [facility] Comment on above: Performed By: #### C MP #### [facility] [address] [place] [address] Dr. Scooby Irvin Albumin/Globulin [Mass ratio] 1.1 {ratio} Normal [facility] Comment on above: Performed By: #### C MP #### [facility] [address] [place] [address] Dr. Scooby Irvin ALP [Catalytic activity/Vol] 72 U/L Normal 38-126 [facility] Comment on above: Performed By: #### C MP #### [facility] [address] [place] [address] Dr. Scooby Irvin ALT [Catalytic activity/Vol] 23 U/L Normal 9-52 [facility] Comment on above: Performed By: #### C MP #### [facility] [address] [place] [address] Dr. Scooby Irvin Anion gap [Moles/Vol] 10.2 mmol/L Normal [facility] Comment on above: Performed By: #### C MP #### [facility] [address] [place] [address] [address] Scooby Irvin AST [Catalytic activity/Vol] 20 U/L Normal 14-36 [facility] Comment on above: Performed By: #### C MP #### [facility] [address] [place] [address] [address] Scooby Irvin Bilirubin [Mass/Vol] 0.5 mg/dL Normal 0.2-1.3 [facility] Comment on above: Performed By: #### C MP #### [facility] [address] [place] [address] [address] Scooby Irvin Calcium [Mass/Vol] 8.8 mg/dL Normal 8.4-10.2 [facility] Comment on above: Performed By: #### C MP #### [facility] [address] [place] [address] Dr. Scooby Irvin Chloride [Moles/Vol] 104 mmol/L Normal 98-107 [facility] Comment on above: Performed By: #### C MP #### [facility] [address] [place] [address] [address] Scooby Irvin CO2 [Moles/Vol] 28.0 mmol/L Normal 22.0-30.0 [facility] Comment on above: Performed By: #### C MP #### [facility] [address] [place] [address] Dr. Scooby Irvin Creatinine [Mass/Vol] 0.87 mg/dL Normal 0.52-1.04 [facility] Comment on above: Performed By: #### C MP #### [facility] [address] [place] [address] [address] Scooby Irvin EGFR-AF MALTESE >60 Normal >=60 [facility] Comment on above: Performed By: #### C MP #### [facility] [address] [place] [address] Dr. Scooby Irvin EGFR-NON AF MALTESE >60 Normal >=60 [facility] Comment on above: Performed By: #### C MP #### [facility] [address] [place] [address] Dr. Scooby Irvin Globulin (S) [Mass/Vol] 3.5 g/dL Normal [facility] Comment on above: Performed By: #### C MP #### [facility] [address] [place] [address] Dr. Scooby Irvin Glucose [Mass/Vol] 93 mg/dL Normal 74-106 [facility] Comment on above: Performed By: #### C MP #### [facility] [address] [place] [address] Dr. Scooby Irvin Potassium [Moles/Vol] 4.2 mmol/L Normal 3.4-5.0 [facility] Comment on above: Performed By: #### C MP #### [facility] [address] [place] [address] Dr. Scooby Irvin Protein [Mass/Vol] 7.4 g/dL Normal 6.1-8.2 [facility] Comment on above: Performed By: #### C MP #### [facility] [address] [place] [address] Dr. Scooby Irvin Sodium [Moles/Vol] 138 mmol/L Normal 137-145 [facility] Comment on above: Performed By: #### C MP #### [facility] [address] [place] [address] Dr. Scooby Irvin Urea nitrogen [Mass/Vol] 15.0 mg/dL Normal 7.0-17.0 [facility] Comment on above: Performed By: #### C MP #### [facility] [address] [place] [address] Dr. Scooby Irvin Urea nitrogen/Creatinine [Mass ratio] 17.2 mg/mg Normal [facility] Comment on above: Performed By: #### C MP #### [facility] [address] [place] [address] Dr[address] Irvin PET CT SKULL BASE [...] by: FUENTES BARRETO Date: 2021-04-07 08:23 Normal [facility] CT LUNG CANCER SCREENINGon 0 03-23-2021 [...] FUENTES BARRETO Date: 2021-03-23 09:57 Normal [facility] CBC AUTO DIFFon 03-09-2021 BASO # 0.1 103/ul Normal 0.0-0.1 [facility] Comment on above: Performed By: #### C BC #### [facility] [address] [place] [address] Dr. Scooby Irvin Basophils/100 WBC (Bld) 1.2 % Normal 0.2-2.0 [facility] Comment on above: Performed By: #### C BC #### [facility] [address] [place] [address] Dr. Scooby Irvin EO # 0.1 103/ul Normal 0.0-0.7 [facility] Comment on above: Performed By: #### C BC #### [facility] [address] [place] [address] Dr. Scooby Irvin Eosinophils/100 WBC (Bld) 1.4 % Normal 0.9-7.0 [facility] Comment on above: Performed By: #### C BC #### [facility] [address] [place] [address] Dr. Scooby Irvin Erythrocyte distribution width (RBC) [Ratio] 16.3 % Critically high 11.0-15.0 [facility] Comment on above: Performed By: #### C BC #### [facility] [address] [place] [address] Dr. Scooby Irvin Hematocrit (Bld) [Volume fraction] 39.6 % Normal 36.0-48.0 [facility] Comment on above: Performed By: #### C BC #### [facility] [address] [place] [address] Dr. Scooby Irvin Hemoglobin (Bld) [Mass/Vol] 12.6 g/dL Normal 12.0-16.0 [facility] Comment on above: Performed By: #### C BC #### [facility] [address] [place] [address] Dr. Scooby Irvin IG # 0.01 10e3/ul Normal 0.00-0.03 [facility] Comment on above: Performed By: #### C BC #### [facility] [address] [place] [address] Dr. Scooby Irvin IG % 0.2 % Normal 0.0-0.5 [facility] Comment on above: Performed By: #### C BC #### [facility] [address] [place] [address] Dr. Scooby Irvin LYMPH # 1.6 103/ul Normal 1.2-3.8 [facility] Comment on above: Performed By: #### C BC #### [facility] [address] [place] [address] Dr. Scooby Irvin Lymphocytes/100 WBC (Bld) 30.7 % Normal 20.5-60.0 [facility] Comment on above: Performed By: #### C BC #### [facility] [address] [place] [address] Dr. Scooby Irvin MANUAL DIFF REQ NO Normal [facility] Comment on above: Performed By: #### C BC #### [facility] [address] [place] [address] Dr. Scooby Irvin MCH (RBC) [Entitic mass] 28.4 pg Normal 26.7-34.0 [facility] Comment on above: Performed By: #### C BC #### [facility] [address] [place] [address] Dr. Scooby Irvin MCHC (RBC) [Mass/Vol] 31.8 g/dL Normal 29.9-35.2 [facility] Comment on above: Performed By: #### C BC #### [facility] [address] [place] [address] Dr. Scooby Irvin MCV (RBC) [Entitic vol] 89.2 fL Normal 81.0-99.0 [facility] Comment on above: Performed By: #### C BC #### [facility] [address] [place] [address] Dr. Scooby Irvin MONO # 0.6 103/ul Normal 0.3-0.8 [facility] Comment on above: Performed By: #### C BC #### [facility] [address] [place] [address] Dr. Scooby Irvin Monocytes/100 WBC (Bld) 11.5 % Normal 1.7-12.0 [facility] Comment on above: Performed By: #### C BC #### [facility] [address] [place] [address] Dr. Scooby Irvin NEUT # 2.8 103/ul Normal 1.4-6.5 [facility] Comment on above: Performed By: #### C BC #### [facility] [address] [place] [address] Dr. Scooby Irvin Neutrophils/100 WBC (Bld) 55.0 % Normal 43.0-75.0 [facility] Comment on above: Performed By: #### C BC #### [facility] [address] [place] [address] Dr. Scooby Irvin Platelet mean volume (Bld) [Entitic vol] 10.3 fL Normal 9.5-13.5 [facility] Comment on above: Performed By: #### C BC #### [facility] [address] [place] [address] Dr. Scooby Irvin PLT 208 103/ul Normal 150-450 [facility] Comment on above: Performed By: #### C BC #### [facility] [address] [place] [address] Dr. Scooby Irvin RBC 4.44 106/ul Normal 4.20-5.40 [facility] Comment on above: Performed By: #### C BC #### [facility] [address] [place] [address] Dr. Scooby Irvin WBC 5.1 103/ul Normal 4.0-11.0 [facility] Comment on above: Performed By: #### C BC #### [facility] [address] [place] [address] [address] Scooby Irvin FREE T4on 03-09-2021 Free T4 [Mass/Vol] 1.15 ng/dL Normal 0.78-2.19 [facility] Comment on above: Performed By: #### C BC #### [facility] [address] [place] [address] [address] Scooby Irvin LIPID PROFILEon 03-09-2021 CHOL-HDL RATIO NORM SEE BELOW Normal [facility] Comment on above: Result Comment: 3.3 - 4.4 LOW RISK 4.4 - 7.1 AVERAGE RISK 7.1 - 11.0 MODERATE RISK >11.0 HIGH RISK Performed By: #### L IPID, CMP, TSH #### [facility] [address] [place] [address] [address] Scooby Irvin Cholesterol [Mass/Vol] 227 mg/dL Critically high <=200 [facility] Comment on above: Performed By: #### L IPID, CMP, TSH #### [facility] [address] [place] [address] [address] Scooby Irvin Cholesterol in HDL [Mass/Vol] 65 mg/dL Normal [facility] Comment on above: Performed By: #### L IPID, CMP, TSH #### [facility] [address] [place] [address] [address] Scooby Irvin Cholesterol in LDL [Mass/Vol] 142.6 mg/dL Normal [facility] Comment on above: Performed By: #### L IPID, CMP, TSH #### [facility] [address] [place] [address] [address] Scooby Irvin Cholesterol.total/Ch olesterol in HDL [Mass ratio] 3.5 {ratio} Normal [facility] Comment on above: Performed By: #### L IPID, CMP, TSH #### [facility] [address] [place] [address] [address] Scooby Irvin HDL NORMAL > or = 60 mg/dl - LO W CARDIOVASCULAR RISK <40 mg/dl - HIGH CARDIOVASCULAR RISK Normal [facility] Comment on above: Performed By: #### L IPID, CMP, TSH #### [facility] [address] [place] [address] [address] Scooby Irvin LDL CALC NORMAL SEE BELOW Normal [facility] Comment on above: Result Comment: <100 mg/dl OPTIMAL 100 - 129 mg/dl NEAR OR ABOVE OPTIMAL 130 - 159 mg/dl BORDERLINE HIGH 160 - 189 mg/dl HIGH >190 mg/dl VERY HIGH Performed By: #### L IPID, CMP, TSH #### [facility] [address] [place] [address] [address] Scooby Irvin Triglyceride [Mass/Vol] 97 mg/dL Normal <=150 [facility] Comment on above: Performed By: #### L IPID, CMP, TSH #### [facility] [address] [place] [address] Dr. Scooby Irvin VLDL CALC 19.4 mg/dL Normal [facility] Comment on above: Performed By: #### L IPID, CMP, TSH #### [facility] [address] [place] [address] Dr. Scooby Irvin PROF 14(COMP METB)on 022 Albumin [Mass/Vol] 4.0 g/dL Normal 3.5-5.0 [facility] Comment on above: Performed By: #### L IPID, CMP, TSH #### [facility] Laboratory [address] [place] [address] Dr. Scooby Irvin Albumin/Globulin [Mass ratio] 1.1 {ratio} Normal [facility] Comment on above: Performed By: #### L IPID, CMP, TSH #### [facility] [address] [address] [address] Scooby Irvin ALP [Catalytic activity/Vol] 80 U/L Normal 38-126 [facility] Comment on above: Performed By: #### L IPID, CMP, TSH #### [facility] [address] [address] [address] Scooby Irvin ALT [Catalytic activity/Vol] 35 U/L Normal 9-52 [facility] Comment on above: Performed By: #### L IPID, CMP, TSH #### [facility] [address] [address] [address] Scooby Irvin Anion gap [Moles/Vol] 11.8 mmol/L Normal [facility] Comment on above: Performed By: #### L IPID, CMP, TSH #### [facility] [address] [address] [address] Scooby Irvin AST [Catalytic activity/Vol] 24 U/L Normal 14-36 [facility] Comment on above: Performed By: #### L IPID, CMP, TSH #### [facility] [address] [address] [address] Scooby Irvin Bilirubin [Mass/Vol] 0.5 mg/dL Normal 0.2-1.3 [facility] Comment on above: Performed By: #### L IPID, CMP, TSH #### [facility] [address] [address] [address] Scooby Irvin Calcium [Mass/Vol] 9.3 mg/dL Normal 8.4-10.2 [facility] Comment on above: Performed By: #### L IPID, CMP, TSH #### [facility] [address] [address] [address] Scooby Irvin Chloride [Moles/Vol] 105 mmol/L Normal 98-107 [facility] Comment on above: Performed By: #### L IPID, CMP, TSH #### [facility] [address] [address] [address] Scooby Irvin CO2 [Moles/Vol] 26.2 mmol/L Normal 22.0-30.0 [facility] Comment on above: Performed By: #### L IPID, CMP, TSH #### [facility] [address] [address] [address] Scooby Irvin Creatinine [Mass/Vol] 0.83 mg/dL Normal 0.52-1.04 [facility] Comment on above: Performed By: #### L IPID, CMP, TSH #### [facility] [address] [address] [address] Scooby Irvin EGFR-AF MALTESE >60 Normal >=60 [facility] Comment on above: Performed By: #### L IPID, CMP, TSH #### [facility] [address] [address] [address] Scooby Irvin EGFR-NON AF MALTESE >60 Normal >=60 [facility] Comment on above: Performed By: #### L IPID, CMP, TSH #### [facility] [address] [address] [address] Scooby Irvin Globulin (S) [Mass/Vol] 3.8 g/dL Normal [facility] Comment on above: Performed By: #### L IPID, CMP, TSH #### [facility] [address] [place] [address] Dr. Scooby Irvin Glucose [Mass/Vol] 112 mg/dL Critically high 74-106 [facility] Comment on above: Performed By: #### L IPID, CMP, TSH #### [facility] [address] [place] [address] Dr. Scooby Irvin Potassium [Moles/Vol] 4.0 mmol/L Normal 3.4-5.0 [facility] Comment on above: Performed By: #### L IPID, CMP, TSH #### [facility] [address] [place] [address] Dr. Scooby Irvin Protein [Mass/Vol] 7.8 g/dL Normal 6.1-8.2 [facility] Comment on above: Performed By: #### L IPID, CMP, TSH #### [facility] [address] [place] [address] Dr. Scooby Irvin Sodium [Moles/Vol] 139 mmol/L Normal 137-145 [facility] Comment on above: Performed By: #### L IPID, CMP, TSH #### [facility] [address] [place] [address] Dr. Scooby Irvin Urea nitrogen [Mass/Vol] 15.0 mg/dL Normal 7.0-17.0 [facility] Comment on above: Performed By: #### L IPID, CMP, TSH #### [facility] [address] [place] [address] Dr. Scooby Irvin Urea nitrogen/Creatinine [Mass ratio] 18.1 mg/mg Normal [facility] Comment on above: Performed By: #### L IPID, CMP, TSH #### [facility] [address] [address] [address] Scooby Irvin TSHon 03-09-2021 TSH 2.761 uIU/mL Normal 0.470-4.68 0 [facility] Comment on above: Performed By: #### L IPID, CMP, TSH #### [facility] [address] [address] [address] Scooby Irvin TSH RANGE SEE BELOW Normal [facility] Comment on above: Result Comment: <0.3 4 UIU/ml HYPERTHYROID 0.34-5.60 UIU/ml EUTHYROID >5.60 UIU/ml HYPOTHYROID Performed By: #### L IPID, CMP, TSH #### [facility] [address] [place] [address] Dr. Scooby Irvin Vital Signs Date Time Vital Sign Value Performing Clinician Facility 04-21-2024 08:53-0400 Body height 140.97 cm [facility] 04-21-2024 08:53-0400 Body mass index (BMI) [Ratio] 36.5 kg/m2 [facility] 04-21-2024 08:53-0400 Body weight 72.57 kg [facility] 04-21-2024 08:53-0400 Diastolic blood pressure 70 mm[Hg] [facility] 04-21-2024 08:53-0400 Heart rate 80 /min [facility] 04-21-2024 08:53-0400 Systolic blood pressure 128 mm[Hg] [facility] 03-20-2024 10:54-0500 Blood Pressure Location Salazar Sarmini [facility] 03-20-2024 10:54-0500 Diastolic blood pressure 74 mm[Hg] Salazar Sarmini [facility] 03-20-2024 10:54-0500 Heart rate 71 /min Salazar Sarmini [facility] 03-20-2024 10:54-0500 Systolic blood pressure 129 mm[Hg] Salazar Sarmini [facility] 01-30-2024 13:46-0500 Diastolic blood pressure 82 mm[Hg] Salazar Sarmini [facility] 01-30-2024 13:46-0500 Mean blood pressure 104 mm[Hg] Salazar Sarmini [facility] 01-30-2024 13:46-0500 Systolic blood pressure 148 mm[Hg] Salazar Sarmini [facility] 01-30-2024 13:41-0500 Blood Pressure Location Salazar Sarmini [facility] 01-30-2024 13:41-0500 Diastolic blood pressure 85 mm[Hg] Salazar Sarmini [facility] 01-30-2024 13:41-0500 Heart rate 80 /min Salazar Sarmini [facility] 01-30-2024 13:41-0500 Systolic blood pressure 157 mm[Hg] Salazar Sarmini [facility] 01-15-2024 13:25-0500 Diastolic blood pressure 86 mm[Hg] Salazar Sarmini [facility] 01-15-2024 13:25-0500 Heart rate 79 /min Salazar Sarmini [facility] 01-15-2024 13:25-0500 Mean blood pressure 108 mm[Hg] Salazar Sarmini [facility] 01-15-2024 13:25-0500 Respiratory rate 17 /min Salazar Sarmini [facility] 01-15-2024 13:25-0500 SaO2% (BldA) [Mass fraction] 96 % Salazar Sarmini [facility] 01-15-2024 13:25-0500 Systolic blood pressure 153 mm[Hg] Salazar Sarmini [facility] 01-15-2024 13:15-0500 Diastolic blood pressure 81 mm[Hg] Salazar Sarmini [facility] 01-15-2024 13:15-0500 Heart rate 79 /min Salazar Sarmini [facility] 01-15-2024 13:15-0500 Mean blood pressure 103 mm[Hg] Salazar Sarmini [facility] 01-15-2024 13:15-0500 Respiratory rate 17 /min Salazar Sarmini [facility] 01-15-2024 13:15-0500 SaO2% (BldA) [Mass fraction] 96 % Salazar Sarmini [facility] 01-15-2024 13:15-0500 Systolic blood pressure 148 mm[Hg] Salazar Sarmini [facility] 01-15-2024 13:00-0500 Diastolic blood pressure 70 mm[Hg] Salazar Sarmini [facility] 01-15-2024 13:00-0500 Heart rate 72 /min Salazar Sarmini [facility] 01-15-2024 13:00-0500 Mean blood pressure 93 mm[Hg] Salazar Sarmini [facility] 01-15-2024 13:00-0500 SaO2% (BldA) [Mass fraction] 97 % Salazar Sarmini [facility] 01-15-2024 13:00-0500 Systolic blood pressure 140 mm[Hg] Salazar Sarmini [facility] 01-15-2024 12:50-0500 Body temperature 98.24 [degF] Salazar Sarmini [facility] 01-15-2024 12:44-0500 Respiratory rate 18 /min Salazar Sarmini [facility] 01-15-2024 12:40-0500 Respiratory rate 19 /min Salazar Sarmini [facility] 01-15-2024 12:35-0500 Respiratory rate 19 /min Salazar Sarmini [facility] 01-15-2024 10:59-0500 Blood Pressure Location Salazar Sarmini [facility] 01-15-2024 10:59-0500 Body temperature 98.24 [degF] Salazar Sarmini [facility] 12-04-2023 08:58-0400 Blood Pressure Location Salazar Sarmini [facility] 12-04-2023 08:58-0400 Diastolic blood pressure 84 mm[Hg] Salazar Sarmini [facility] 12-04-2023 08:58-0400 Heart rate 84 /min Salazar Sarmini [facility] 12-04-2023 08:58-0400 Respiratory rate 16 /min Salazar Sarmini [facility] 12-04-2023 08:58-0400 Systolic blood pressure 156 mm[Hg] Salazar Sarmini [facility] 12-04-2023 08:49-0400 Blood Pressure Location Salazar Sarmini [facility] 12-04-2023 08:49-0400 Respiratory rate 16 /min Salazar Sarmini [facility] 09-04-2022 09:00-0400 Body height 140.97 cm Laurita Morales Other [email or web address] [facility] [employer] Other 09-04-2022 09:00-0400 Body mass index (BMI) [Ratio] 36.74 kg/m2 Laurita Morales Other [email or web address] [facility] [employer] Other 09-04-2022 09:00-0400 Body weight 73.03 kg Laurita Morales Other [employer] Other 09-04-2022 09:00-0400 Diastolic blood pressure 78 mm[Hg] Laurita Morales Other [email or web address] [facility] [employer] Other 09-04-2022 09:00-0400 SaO2% (BldA) [Mass fraction] 97 % Laurita Morales Other [employer] Other 09-04-2022 09:00-0400 Systolic blood pressure 132 mm[Hg] Laurita Morales Other [employer] Other 03-01-2022 10:30-0500 Body height 140.97 cm Laurita Morales Other [employer] Other 03-01-2022 10:30-0500 Body mass index (BMI) [Ratio] 36.06 kg/m2 Laurita Morales Other [employer] Other 03-01-2022 10:30-0500 Body weight 71.67 kg Laurita Morales Other [employer] Other 03-01-2022 10:30-0500 Diastolic blood pressure 84 mm[Hg] Laurita Morales Other [employer] Other 03-01-2022 10:30-0500 SaO2% (BldA) [Mass fraction] 98 % Laurita Morales Other [employer] Other 03-01-2022 10:30-0500 Systolic blood pressure 132 mm[Hg] Laurita Morales Other [employer] Other 11-08-2021 10:17-0400 Diastolic blood pressure 74 mm[Hg] Farooq SALAM [facility] 11-08-2021 10:17-0400 Mean blood pressure 99 mm[Hg] Farooq SALAM [facility] 11-08-2021 10:17-0400 Systolic blood pressure 148 mm[Hg] Farooq SALAM [facility] 11-08-2021 10:15-0400 Blood Pressure Location Farooq SALAM [facility] 11-08-2021 10:15-0400 Diastolic blood pressure 95 mm[Hg] Farooq SALAM [facility] 11-08-2021 10:15-0400 Heart rate 78 /min Farooq SALAM [facility] 11-08-2021 10:15-0400 Respiratory rate 16 /min Farooq SALAM [facility] 11-08-2021 10:15-0400 Systolic blood pressure 159 mm[Hg] Farooq SALAM [facility] 05-10-2021 11:11-0400 Diastolic blood pressure 90 mm[Hg] Farooq SALAM [facility] 05-10-2021 11:11-0400 Systolic blood pressure 180 mm[Hg] Farooq SALAM [facility] Encounters Encounter Date Encounter Type Care Provider Facility Start: 04-21-2024 End: 04-21-2024 ambulatory [facility] Work Phone: Start: 04-21-2024 End: 04-21-2024 Patient encounter procedure [facility] Phys[facility] Work Phone: Start: 04-15-2024 End: 04-15-2024 Office outpatient visit 25 minutes Jr. Larissa Guerrero DO Work Phone: [facility] Comment on above: Acute pain of left k nee (Primary Dx); Acute pain of right knee; Acute medial meniscus tear of right knee, initial encounter Start: 04-15-2024 End: 04-15-2024 Bambonina flowsheet Jr. Larissa Guerrero DO Work Phone: [facility] Start: 04-15-2024 End: 04-15-2024 Bamboo flowsheet Jr. Larissa Guerrero DO Work Phone: [facility] Start: 04-15-2024 End: 04-15-2024 ambulatory LARISSA CABRERA Not Available Start: 03-20-2024 End: 03-20-2024 ambulatory Martin Tatum Facility:[facility] Start: 03-20-2024 End: 03-20-2024 Patient encounter procedure Martin Felicinaoal Levymini [facility] Start: 03-18-2024 End: 03-18-2024 Office outpatient visit 15 minutes Jr. Larissa Guerrero DO Work Phone: [facility] Comment on above: Left knee pain, unsp ecified chronicity (Primary Dx); Internal derangement of left knee; Arthritis of left knee Start: 03-18-2024 End: 03-18-2024 ambulatory LARISSA CABRERA Not Available Start: 03-02-2024 End: 03-02-2024 Telephone encounter Adali Giordano [employer] Work Phone: [facility] Comment on above: MRI Start: 02-17-2024 End: 02-17-2024 Bamboo flowsheet Adali Pompa Apling [employer]TRASONIC SOLDERER Work Phone: [facility] Start: 02-17-2024 End: 02-17-2024 Bamboo flowsheet Adali Pompa Apling [employer]TR[employer]IC [employer] Work Phone: [facility] Start: 02-17-2024 End: 02-17-2024 Office outpatient visit 15 minutes Adali Malcolming [employer]TR[employer]IC [employer]DER[employer] Work Phone: [facility] Comment on above: S/P left knee arthro scopy (Primary Dx); Left knee pain, unspecified chronicity; Arthritis of left knee; Internal derangement of left knee Start: 02-17-2024 End: 02-17-2024 ambulatory ADALI Pompa APLING Not Available Start: 01-30-2024 End: 01-30-2024 ambulatory Salazar Talal Levymini Facility:[facility] Start: 01-30-2024 End: 01-30-2024 Patient encounter procedure Martin Felicianoal Levymini [facility] Start: 01-20-2024 End: 01-20-2024 Bamboo flowsheet Adali Giordano [employer]TR[employer]IC [employer]ER Work Phone: [facility] Start: 01-20-2024 End: 01-20-2024 Bamboo flowsheet Adali Giordano [employer]TR[employer]IC SOL[employer] Work Phone: [facility] Start: 01-20-2024 End: 01-20-2024 Office outpatient visit 25 minutes Adali Pompa Pasquale [employer]TR[employer]ONIC SOLDERER Work Phone: [facility] Comment on above: S/P left knee arthro scopy (Primary Dx); Left knee pain, unspecified chronicity; Arthritis of left knee Start: 01-20-2024 End: 01-20-2024 ambulatory ADALI Pompa ALEXGAUTAM Not Available Start: 01-15-2024 End: 01-15-2024 Patient encounter procedure Salazar Talal Sarmini [facility] Start: 12-31-2023 End: 12-31-2023 Bamboo flowsheet Abhi Ramires [employer]TRAS[employer]IC SOLDERER Work Phone: [facility] Start: 12-31-2023 End: 12-31-2023 Bamboo flowsheet Abhi Ramires [employer]TR[employer]IC [employer] Work Phone: [facility] Start: 12-31-2023 End: 12-31-2023 Postop follow up visit related to original px Abhi Ramires [employer]TR[employer] Work Phone: [facility] Comment on above: S/P left knee arthro scopy (Primary Dx); Left knee pain, unspecified chronicity Start: 12-31-2023 End: 12-31-2023 ambulatory ABHI RAMIRES Not Available Start: 12-06-2023 End: 12-06-2023 ambulatory Salazar Talal Sarmini Facility[facility] Start: 12-06-2023 End: 12-06-2023 Lab Drop off Salazar Talal Sarmini [facility] Start: 12-04-2023 End: 12-04-2023 ambulatory Salazar Talal Sarmini Facility:[facility] Start: 12-04-2023 End: 12-04-2023 Patient encounter procedure Salazar Talal Sarmini [facility] Start: 12-04-2023 ambulatory Salazar Talal Sarmini Facility:[facility] Start: 12-04-2023 End: 12-04-2023 Patient encounter procedure Salazar Talal Sarmini [facility] Start: 11-26-2023 ambulatory Salazar Sarmini Facili ty:[facility] Start: 11-13-2023 End: 11-13-2023 Bamboo flowsheet Adali B Apling ULTRASONIC SOLDERER Work Phone: [facility] Start: 11-13-2023 End: 11-13-2023 Bamboo flowsheet Adali B Apling [employer]TRASONIC SOLDERER Work Phone: [facility] Start: 11-13-2023 End: 11-13-2023 Postop follow up visit related to original px Adali B Apling [employer]TR[employer]IC [employer]DERER Work Phone: [facility] Comment on above: Arthritis of left kn ee (Primary Dx); S/P left knee arthroscopy Start: 11-13-2023 End: 11-13-2023 ambulatory ADALI B APLING Not Available Start: 10-16-2023 End: 10-16-2023 Bamboo flowsheet Adali B Apling ULTRASONIC SOLDERER Work Phone: [facility] Start: 10-16-2023 End: 10-16-2023 Bamboo flowsheet Adali B Apling ULTRASONIC SOLDERER Work Phone: [facility] Start: 10-16-2023 End: 10-16-2023 Postop follow up visit related to original px Adali B Apling [employer]TR[employer]IC [employer]ER Work Phone: [facility] Comment on above: Arthritis of left kn ee (Primary Dx); S/P left knee arthroscopy Start: 10-16-2023 End: 10-16-2023 ambulatory ADALI Peña APLING Not Available Start: 10-08-2023 End: 10-08-2023 Debra Ramires [employer]TR[employer]IC SOLDERER Work Phone: [facility] Comment on above: Post-op pain (Primar y Dx) Start: 09-10-2023 End: 09-10-2023 ambulatory DANIELLE Fish JOHN Not Available Start: 09-09-2023 Patient encounter procedure [facility] Start: 08-26-2023 End: 08-26-2023 ambulatory ADALI Peña APLING Not Available Start: 03-07-2023 End: 03-07-2023 ambulatory Laurita Morales Other [employer] Other Start: 03-07-2023 Office outpatient vi sit 15 minutes Laurita Morales [facility] Start: 09-20-2022 End: 09-20-2022 ambulatory Laurita Morales Other [employer] Other Start: 09-20-2022 Telephone encounter Laurita Morales [facility] Start: 09-04-2022 End: 09-04-2022 ambulatory Laurita Morales Other [employer] Other Start: 09-04-2022 Patient encounter procedure Laurita Morales [facility] Start: 04-19-[address] LAURITA MORALES Facil ity:[facility] Start: 03-01-2022 End: 03-01-2022 ambulatory Laurita Morales Other [employer] Other Start: 03-01-2022 Office outpatient vi sit 15 minutes Laurita Morales [facility] Start: 01-18-2022 End: 01-19-[address] LAURITA MORALES Facility:[facility] Start: 11-21-2021 End: 11-22-2021 ambulatory CAPRI FULLER Facility:[facility] Start: 11-08-2021 End: 11-08-2021 Patient encounter procedure Capri FULLER [facility] Start: 10-19-2021 End: 10-20-[address] LAURITA MORALES Facility:[facility] Start: 09-27-2021 End: 09-28-[address] LAURITA MORALES Facility:[facility] Start: 09-26-2021 End: 09-26-[address] LAURITA MORALES Facility:[facility] Start: 09-25-2021 Encounter for preprocedural laboratory examination DR RADHA IRAHETA [facility] Start: 09-22-2021 End: 09-23-[address] LAURITA MORALES Facility:[facility] Start: 09-22-2021 End: 09-23-2021 Encounter for preprocedural laboratory examination DR LAURITA MORALES Facility:[facility] Start: 09-11-[address] LAURITA MORALES Facil ity:[facility] Start: 09-06-2021 End: 09-07-2021 ambulatory ROBERTO MCNALLY Facility:[facility] Start: 08-30-2021 Adult health examination Malia Morales Other [employer] Other Start: 06-22-2021 End: 06-23-2021 ambulatory CAPRI FULLER Facility:[facility] Start: 05-31-2021 End: 05-31-2021 ambulatory Luis Gutierrez Facility:[facility] Start: 05-26-2021 End: 05-26-2021 ambulatory Laurita Morales Facility:[facility] Start: 05-26-2021 End: 05-26-2021 Patient encounter procedure MD Cy Sears Work Phone: [facility] Start: 05-22-2021 End: 05-23-[address] LAURITA MORALES Facility:[facility] Start: 05-10-2021 End: 05-10-2021 Patient encounter procedure Capri FULLER [facility] Start: 05-04-2021 End: 05-04-2021 ambulatory Cy Sears Facility:[facility] Start: 05-04-2021 End: 05-04-2021 Patient encounter procedure MD Cy Sears Work Phone: [facility] Start: 04-20-2021 End: 04-21-2021 [facility] Start: 04-01-2021 End: 04-02-[address] LAURITA MORALES Facility:[facility] Start: 03-23-2021 End: 03-24-[address] LAURITA MORALES Facility:[facility] Start: 03-09-2021 End: 03-10-[address] LAURITA MORALES Facility: Procedures Date Procedure Procedure Detail Performing Clinician Start: 04-15-2024 Radiologic examination knee 1/2 views Jr. Larissa Guerrero DO Work Phone: Start: 01-15-2024 Colonoscopy Adali Giordano NP Work Phone: Start: 01-15-2024 Colonoscopy Salazar Levymini Start: 01-15-2024 Esophagogastroduodenoscopy Martin Huff ini Start: 09-12-2023 Tear of meniscus of knee (disorder) Salazar Sarmini Start: 09-04-2023 History of thyroidectomy Status post total thyroidectomy Abhi Ramires NP Work Phone: Start: 05-31-2021 Antibody screen Luis Matt Comment on above: Order Comment: Transfuse now? N Result Comment: PERF ORMED BY: [facility] [address] [place] [address] PATHOLOGIST FLOOR COVERING INSTALLER TRICIA OSHEA M.D. Start: 02-16-2020 Colonoscopy Abhi Ramires NP Work Phone: Start: 02-16-2020 Colonoscopy w/biopsy single/multiple Farooq SALAM Colonoscopy Farooq SALAM History of appendectomy Muandrez mmad Sarmini History of thyroidectomy Tari Tatum Screening for malign ant neoplasm of breast Laurita Morales Other Plan of Treatment Date Care Activity Detail Author Start: 01-14-2034 Screening for malignant neoplasm of colon [facility] Start: 02-15-2030 Screening for malignant neoplasm of colon [facility] Start: 05-13-2024 End: 05-13-2024 Patient encounter procedure [facility] Start: 04-15-2024 End: 04-15-2024 Patient encounter procedure 04/15/2024 2:15 PM EST Office Visit [facility] [address] [place] [address] Jr. Larissa Guerrero DO [address] [place] [address] Acute pain of left knee [facility] Comment on above: Acute pain of left k nee Start: 02-17-2024 End: 02-16-2025 MR Knee - left WO contrast MR knee left wo IV contrast Imaging Routine Internal derangement of left knee Expected: 02/17/2024 (Approximate), Expires: 02/16/2025 [facility] Work Phone: Comment on above: Expected: 02/17/2024 (Approximate), Expires: 02/16/2025 Start: 02-17-2024 End: 02-17-2024 Patient encounter procedure 02/17/2024 9:45 AM EST Office Visit [facility] [address] [place] [id number] Adali Giordano, [employer]TR[employer]IC [employer]DERER [address] [place] [address] S/P left knee arthroscopy (Primary Dx); Left knee pain, unspecified chronicity; Arthritis of left knee [facility] Comment on above: S/P left knee arthro scopy (Primary Dx); Left knee pain, unspecified chronicity; Arthritis of left knee Start: 01-20-2024 End: 01-20-2024 Patient encounter procedure [facility] Comment on above: S/P left knee arthro scopy (Primary Dx); Left knee pain, unspecified chronicity; Arthritis of left knee Start: 12-31-2023 End: 12-31-2023 Patient encounter procedure 12/31/2023 10:45 AM EST Office Visit [facility] [address] [place] [id number] Abhi Ramires, MACI [address] [place] [address] Arrived [facility] Comment on above: Arrived Start: 11-13-2023 End: 11-13-2023 Patient encounter procedure [facility] Comment on above: Arthritis of left kn ee (Primary Dx); S/P left knee arthroscopy Start: 10-16-2023 End: 10-16-2023 Patient encounter procedure [facility] Comment on above: Arrived Start: 10-13-2023 Influenza vaccination Influenza Vacc ine (#1) [facility] Start: 10-09-2023 End: 10-09-2023 Patient encounter procedure 10/09/2023 11:30 AM EDT Procedure Visit [facility] Danielle Curran DO [address] [place] [address] [facility] Start: 1950 Screening for malignant neoplasm of colon [facility] Immunizations Immunization Date Immunization Notes Care Provider Fa cility 11-13-2023 influenza virus vaccine, unspecified formulation Martin Tatum [facility] 12-03-2022 ABRYSVO - Respirator y syncytial virus (RSV), vaccine, bivalent, protein subunit RSV prefusion F, diluent reconstituted, 0.5 mL, PF Abhi Ramires [employer] Work Phone: [facility] 12-03-2022 SARS-COV-2 (COVID-19 ) vaccine, mRNA, spike protein, LNP, PF, 50 mcg/0.5 mL Abhi Ramires [employer]DER[employer] Work Phone: [facility] 11-07-2022 Influenza, Seasonal, Quadrivalent, Adjuvanted Abhi Ramires [employer]IC SOLDER[employer] Work Phone: [facility] 11-07-2022 influenza virus vaccine, unspecified formulation Abhi Ramires ULTRASONIC SOLDERER Work Phone: [facility] 10-01-2022 zoster vaccine recombinant Abhi Ramires [employer]TR[employer] SOLDER[employer] Work Phone: [facility] 07-18-2022 zoster vaccine recombinant Abhi Ramires [employer]TRASONIC SOLDERER Work Phone: [facility] 11-21-2021 influenza virus vaccine, unspecified formulation Martin Segurai [facility] 11-21-2021 Seasonal trivalent influenza vaccine, adjuvanted, preservative free Abhi Ramires [employer] SOLDER[employer] Work Phone: [facility] 10-27-2021 SARS-CoV-2 (COVID-19 ) [id number] Salazar Sarmini [facility] Comment on above: Result Comment: 2023: [id number] 12-09-2020 COVID-19 mRNA-1273 (Moderna) MD Cy Sears Work Phone: [facility] Comment on above: Result Comment: 2023: [id number] 11-15-2020 influenza virus vaccine, split virus (incl. purified surface antigen) Laurita Morales Other [employer] Other 11-15-2020 influenza virus vaccine, unspecified formulation Abhi Ramires [employer]TRASONIC SOLDERER Work Phone: [facility] 11-11-2020 influenza virus vaccine, unspecified formulation Capri FULLER [facility] 04-26-2020 COVID-19 mRNA-1273 (Moderna) MD Cy Sears Work Phone: [facility] 03-31-2020 SARS-CoV-2 (COVID-19 ) mRNA-1273 vaccine Salazar Sarmini [facility] 03-23-2020 COVID-19 mRNA-1273 (Moderna) MD Cy Sears Work Phone: [facility] 11-20-2019 influenza virus vaccine, split virus (incl. purified surface antigen) Laurita Morales Other [facility] [employer] Other 11-20-2019 influenza virus vaccine, unspecified formulation Abhi Katie [employer]IC SOLDERER Work Phone: [facility] 07-09-2018 zoster vaccine, live Abhi O sonalen [employer]IC SOLDER[employer] Work Phone: [facility] 11-20-2017 pneumococcal polysaccharide vaccine, 23 valent Abhi Ramires [employer] SOLDERER Work Phone: [facility] 11-14-2017 influenza virus vaccine, unspecified formulation Salazar Sarmini [facility] 11-14-2017 pneumococcal polysaccharide vaccine, 23 valent Abhi Ramires [employer]IC SOLDERER Work Phone: [facility] 11-14-2017 Seasonal trivalent influenza vaccine, adjuvanted, preservative free Abhi Ramires [employer]TRAS[employer]IC SOLDERER Work Phone: [facility] 10-24-2016 influenza virus vaccine, split virus (incl. purified surface antigen) Laurita Morales Other [facility] [employer] Other 10-24-2016 influenza virus vaccine, unspecified formulation Salazar Sarmini [facility] 10-24-2016 influenza, high dose seasonal, preservative-free Abhi Ramires [employer]DERER Work Phone: [facility] 10-24-2016 pneumococcal conjuga te vaccine, 13 valent Laurita Morales Other [facility] [employer] Other 11-08-2015 influenza virus vaccine, unspecified formulation Salazar Sarmini [facility] 11-08-2015 Seasonal trivalent influenza vaccine, adjuvanted, preservative free Abhi Ramires NP Work Phone: [facility] 11-16-2014 influenza virus vaccine, unspecified formulation Martin Tatum [facility] 11-16-2014 influenza, seasonal, injectable, preservative free Abhi Ramires [employer] SOLDERER Work Phone: [facility] 08-31-2014 tetanus and diphther ia toxoids, adsorbed, preservative free, for adult use (5 Lf of tetanus toxoid and 2 Lf of diphtheria toxoid) Abhi Ramires NP Work Phone: [facility] 08-31-2014 tetanus toxoid, reduced diphtheria toxoid, and acellular pertussis vaccine, adsorbed Laurita Morales Other [email or web address] [facility] [employer] Other 11-30-2013 pneumococcal polysaccharide vaccine, 23 valent Laurita Morales Other [facility] [employer] Other 03-24-2013 zoster vaccine, live Abhi Nina daly NP Work Phone: [facility] 11-11-2012 influenza virus vaccine, unspecified formulation Martin Segurameera [facility] 11-11-2012 influenza, seasonal, injectable Abhi Ramires NP Work Phone: [facility] 01-29-2003 hepatitis B vaccine, adult dosage Abhi Ramires NP Work Phone: [facility] 08-10-2002 hepatitis B vaccine, adult dosage Abhi Ramires NP Work Phone: [facility] 07-08-2002 hepatitis B vaccine, adult dosage Abhi Ramires NP Work Phone: [facility] 07-08-2002 TD(adult) unspecifie d formulation; Translations: [Td(adult) unspecified formulation] Abhi Ramires NP Work Phone: [facility] NEGATED: Highlighted row has not occurred!11-08-2021 influenza virus vaccine, unspecified formulation Capri FULLER [facility] Payers Date Payer Category Payer Self-pay [id number] 2021 Private Health Insurance [id number] 2021 Private Health Insurance CLI [id number] 2013 Medicare [id number] 1959 Medicare [id number] 1959 Unknown [id number] 1948 Unknown [id number] 2.16.84 0.1.656825.3.579.2.593 1948 Unknown [id number] 2.16.84 0.1.870441.3.579.2.593 1948 Unknown [id number] 2.16.84 0.1.778473.3.579.2.593 1948 Unknown [id number] 2.16.84 0.1.897982.3.579.2.593 1948 Unknown [id number] 2.16.84 0.1.725057.3.579.2.593 1948 Unknown [id number] 2.16.84 0.1.300747.3.579.2.593 1948 Unknown [id number] 2.16.84 0.1.778440.3.579.2.593 1948 Unknown [id number] 2.16.84 0.1.460561.3.579.2.593 1948 Unknown [id number] 2.16.84 0.1.400408.3.579.2.593 1948 Unknown [id number] 2.16.84 0.1.844901.3.579.2.593 1948 Unknown [id number] 2.16.84 0.1.279974.3.579.2.593 1948 Unknown [id number] 2.16.84 0.1.146809.3.579.2.593 1948 Unknown [id number] 2.16.84 0.1.059706.3.579.2.593 1948 Unknown [id number] 2.16.84 0.1.405445.3.579.2.593 1948 Unknown [id number] 2.16.84 0.1.937171.3.579.2.593 1948 Unknown [id number] 2.16.84 0.1.141250.3.579.2.593 1948 Unknown [id number] 2.16.84 0.1.224825.3.579.2.593 1948 Unknown [id number] 2.16.8 40.1.745735.3.579.2.727 1948 Unknown [id number] 2.16.8 40.1.705468.3.579.2.727 1948 Unknown [id number] 2.16.8 40.1.826584.3.579.2.727 1948 Unknown [id number] 2.16.8 40.1.773751.3.579.2.727 1948 Unknown [id number] 2.16.84 0.1.078349.3.579.2.1259 1948 Unknown [id number] 2.16.84 0.1.114771.3.579.2.1259 1948 Unknown [id number] 2.16.84 0.1.021553.3.579.2.125 1948 Unknown [id number] 2.16.84 0.1.908647.3.579.2.9 1948 Unknown [id number] 2.16.84 0.1.838008.3.579.2.1258 1948 Unknown [id number] 2.16.84 0.1.738823.3.579.2.125 1948 Unknown [id number] 2.16.84 0.1.864696.3.579.2.1258 1948 Unknown [id number] 2.16.84 0.1.114765.3.579.2.1259 1948 Unknown [id number] 2.16.84 0.1.748977.3.579.2.1258 1948 Unknown [id number] 2.16.84 0.1.411621.3.579.2.1259 1948 Unknown [id number] 2.16.84 0.1.341745.3.579.2.1259 Medicare [id number] Unknown [id number] 2.16.8 40.1.854087.3.579.2.531 Unknown [id number] 2.16.8 40.1.042570.3.579.2.531 Unknown [id number] 2.16.8 40.1.573700.3.579.2.531 Social History Date Type Detail Facility [facility] Work Phone: Start: 1950 Sex Assigned At Female F [facility] Start: 05-10-2021 End: 03-20-2024 Tobacco smoking status Heavy tobacco smoker (finding) [facility] Start: 09-10-2023 End: 03-18-2024 Sex Assigned At Female [facility] Start: 05-26-2021 Tobacco smoking stat [facility] Smoker (finding) [facility] Start: 08-26-2023 Tobacco smoking stat [facility] Smokes tobacco daily [facility] History of tobacco use Cigarette Smoker [facility] Start: 08-26-2023 Tobacco use and exposure Smokeless tobacco non-user [facility] Start: 09-10-2023 End: 03-18-2024 Alcoholic beverage intake Current drinker of alcohol (finding) [facility] Start: 09-10-2023 End: 03-18-2024 History of Social function [facility] Start: 1950 Sex assigned at Not on file [facility] Tobacco smoking status Never [facility] Start: 03-12-2023 Tobacco smoking stat [facility] Ex-smoker (finding) [facility] Start: 04-21-2024 Sex Female (finding) [facility] Functional Status Date Assessment Result Facility 03-20-2024 Functional Status N/A [facility] 01-30-2024 Functional Status N/A [facility] 01-15-2024 Functional Status N/A [facility] 12-04-2023 Functional Status N/A [facility] 11-08-2021 Functional Status N/A [facility] Clinical Notes 01-24-2021 to 03-18-2024 Jr. Larissa Guerrero, DO - 03/18/2024 10:45 AM ESTTelephone Encounter - Tyrajamil Feliz - 03/02/2024 10:12 AM ESTTelephone Encounter - Tyra Feliz - 03/02/2024 10:12 AM ESTLaboratory Note Date & Type Note Facility 03-18-2024 History of Presen t illness Narrative Images from the original note were not included. HISTORY OF PRESENT ILLNESS: EST PT Alexandra Cervantes is an 74 y.o. @ female. (EST PT) (LAST APPT WITH [facility]) - RECHECK (L) KNEE S/P MRI @[facility] (02/25/24) ; S/P (L) KNEE SCOPE (DR. CURRAN) (10/09/23) (5 MONTHS, 1 WK, 1 DAY) XRAY B/L KNEE 08/26/23 IN EPIC XRAY (L) KNEE (02/09/23) IN CHANGE MRI @[facility] 02/25/24 MDP 12/31/23 (50% IMPROVEMENT) CORTISONE INJ (01/20/24) (70-80% IMPROVEMENT) NO PT PAIN MANAGEMENT @ [facility] (BACK) STATES INJECTION 01/20/24 ONLY [...] requiring urgent evaluation. documented in this encounter [facility] 03-02-2024 Miscellaneous Notes Patient called and left vm requesting a call for here MRI results. documented in this encounter [facility] 03-02-2024 Telephone encounter Note Patient called and left vm requesting a call for here MRI results. [facility] 02-17-2024 History of Presen t illness [...] f/u s/p MRI to be done at [facility] documented in this encounter [facility] 01-30-2024 Evaluation + Plan note Future Scheduled TestsCalprotectin, Fecal 01/30/24Calprotectin, Fecal 03/17/24Clostridium Difficile PCR 03/17/24Quantiferon-TB Plus (Client Incubated) 03/17/24Enteric Panel by PCR 03/17/24CBC w/ Auto Diff 03/20/24CBC w/ Auto Diff 03/17/24Comprehensive Metabolic Panel 03/20/24Comprehensive Metabolic Panel 03/17/24C-Reactive Protein 03/20/24C-Reactive Protein 03/17/24Hepatitis B Surface Antibody 03/17/24Hepatitis B Surface Antigen 03/17/24 [facility] 01-20-2024 History of Presen [...] she understands this. documented in this encounter [facility] 01-15-2024 Hospital Discharg e instructions Patient Education 01/15/2024 13:05:31 Gastritis, Adult, Juuy-qd-Hvhr Gastritis, Adult Gastritis is irritation and swelling [...] Follow these instructions at home: Medicines Take tker-gms-jfjksqo and prescription medicines only as told by [...] provider. Document Revised: 06/03/2021 Document Reviewed: 06/03/2021 [employer] Patient Education 2023 [employer] 01/15/2024 13:05:27 Endoscopy, Care After Procedure [facility] Endoscopy Care After Procedure Please read the [...] blood. Document Released: 09/11/2004 Document Re-Released: 07/22/2006 [facility] Patient Information [employer] 01/15/2024 13:05:22 Hemorrhoids, Dbvw-qw-Qfxg Hemorrhoids Hemorrhoids are swollen veins that may [...] Follow these instructions at home: Medicines Take rybw-vkz-ikesiiu and prescription medicines only as told by [...] provider. Document Revised: 10/10/2022 Document Reviewed: 10/10/2022 [employer] Patient Education 2023 [employer] 01/15/2024 13:05:13 Ulcerative Colitis, Adult Ulcerative Colitis, [...] instructions at home: Medicines and vitamins Take owgi-klz-loilaun and prescription medicines only as told by [...] and water are not available, use hand tech ed/woodshop teacher. Stay up to date on your vaccinations, [...] information about ulcerative colitis at the [employer] [place] of Diabetes and Digestive and Kidney Diseases [...] provider. Document Revised: 10/04/2020 Document Reviewed: 10/04/2020 [employer] Patient Education 2023 [employer]. 01/15/2024 13:05:09 Colonoscopy, Care After Surgery Salam [...] severe or gets worse throughout the day. [facility] 01-15-2024 Evaluation + Plan note Extrac javier from: Title:ANES Post-operative Note---General Author: Danielle Garcia MD. Date:01/15/24 Plan Transfer/Discharge: Transfer/Discharge Discharge when meets criteria ( To home ). Extracted from: Title:ANES Pre-operative Note 2022 Author:Danielle Ha Date:01/15/24 Plan [place] [employer]esthesi[employer] (ASA) physical status classification: Class II. Anesthetic Preoperative Plan: Anesthesia General. Extracted from: Title:1Preop H&P Author:Martin Tatum MD Date:01/15/24 Impression and Plan Impression: Ulcerative colitis, chronic diarrhea Plan: -EGD and Colonoscopy Future Appointments Appointment Date:01/30/2024 01:45:00 PM Scheduled Provider:Martin Tatum MD Location:[facility] Appointment Type:[facility] Follow Up Diagnostic Tests Pending * Enteric Panel by PCR 01/15/24 * Clostridium Difficile PCR 01/15/24 * Hep B Core Ab, Tot 01/15/24 * Hepatitis B Surface Antibody 01/15/24 * Hepatitis B Surface Antigen 01/15/24 * Quantiferon-TB Plus (Client Incubated) 01/15/24 [facility] 11-19-2024 History of Present illness Narrative* Abhi Ramires [...] develop for requiring urgent evaluation. Abhi Ramires APRN-[employer] documented in this encounterS[facility] [id number] History of Present illness Narrative* Adali Giordano [...] do activities as tolerated. documented in this encounterSoutheast [facility] [id number] History of Present illness Narrative* Adali Giordano [...] as tolerated, f/U prn documented in this encounterSoutheast [facility] [id number] History of Present illness Narrative* Larissa Mei Guerrero, - 04/15/2024 2:15 PM EST Images from the original note were not included. HISTORY OF PRESENT ILLNESS: EST PT Alexandra Cervantes is an 74 y.o. @ female. (EST PT) - RECHECK (L) KNEE ; S/P (L) KNEE SCOPE (DR. CURRAN) (10/09/23) (6 MONTHS, 6 DAYS) ; HERE TO DISCUSS OPTIONS ; S/P INJECTION 01/20/24 (3 MONTHS, 2 DAYS) RECENT INJURY: (R) KNEE BUCKLED ~ 1 MONTH AGO XRAY TODAY, 04/15/24 IN EPIC XRAY B/L KNEE 08/26/23 IN EPIC XRAY (L) KNEE (02/09/23) IN CHANGE MRI @[facility] 02/25/24 MDP 12/31/23 (50% IMPROVEMENT) CORTISONE INJ (01/20/24) (70-80% IMPROVEMENT) NO PT PAIN MGMT @[facility] (BACK) (L) KNEE S/P CORTISONE INJ - ONLY LASTED 2-3 WKS. PAIN ANTERIOR AND POSTERIOR - MORE SEVERE POSTERIORLY. WORSE AFTER PROLONGED WALKING / USE. DENIES RADIATION. DENIES GIVING OUT / POPPING / CLICKING / GRINDING. DENIES N/T. UNSURE OF SWELLING. DOES NOT WAKE AT HS. ALEVE PRN / TYL DAILY - SOME RELIEF. DENIES H EATING. ICING POSTERIORLY - WITH SOME RELIEF. ADMITS ELEVATING. USES ARTHRITIS TOPICAL BID - SOME RELIEF. (R) KNEE (NEW INJURY) DISCOMFORT AROUND PATELLA / POSTERIOR. UNSURE OF SWELLING. DENIES SYMPTOMS PRIOR TO INJURY. RADIATING INTO THIGH AND LOWER LEG. DENIES N/T. DENIES GIVING OUT SINCE INJURY. DENIES POPPING / CLICKING /GRINDING. ADMITS HEATING - SOME RELIEF. ALEVE PRN / TYL DAILY - SOME RELIEF. USES ARTHRITIS TOPICALBID - SOME RELIEF. RONDA: 12/22/23, WENT ON VACATION AND WALKED [...] MG tablets Follow schedule on package instructions methylPREDNISolone (Medrol Dospak) 4 MG tablets Follow [...] AT BEDTIME PHYSICAL EXAM: Knee Musculoskeletal Exam Gait Gait is normal. Antalgic: right Inspection Leg length disparity: no discrepancy Right Erythema: none Effusion: mild Edema: none Ecchymosis: none Deformity: none Alignment: normal Palpation Right Increased warmth: none Masses: none Tenderness: present Medial joint line: moderate Range of Motion Right Right knee range of motion is normal and full. Active extension: 0 Passive extension: 0 Active flexion: 120 Passive flexion: 125 Range of motion additional comments: + PAIN ON TERMINAL FLEXION AND EXTENSION Strength Right Right knee strength is normal. Extension: 5/5. Extension is affected by pain. Flexion: 5/5. Flexion is affected by pain. Instability Right Instability signs: none - stable Varus stress grade: normal Valgus stress grade: normal Anterior drawer: normal Medial Celestine test: positive Neurovascular Right Right knee neurovascular exam is normal. Pulses - PT: normal Posterior tibial: 2+ Capillary refill: warm and well-perfused Special Signs Right Right knee special signs are normal. Patellar apprehension: none General Constitutional: appears stated age Labored breathing: no Psychiatric: normal mood and affect Neurological: alert Skin: intact Lymphadenopathy: none Vitals: There is no height or weight on file to calculate BMI. Tobacco Use: High Risk (03/18/2024) Patient History Smoking Tobacco Use: Every Day Smokeless Tobacco Use: Never Passive Exposure: Not on file Alcohol Use: Not on file IMAGING: XR knee 1 or 2 views left Imaging Result: X-rays AP and lateral of left knee show mild degenerative changes with mild flattening of the articular surfaces to the medial joint line with decreased joint space height to the medial joint line. Lateral joint line appeared to be well preserved there was subchondral sclerosis noted at the medial joint line and patellofemoral joint. There is no evidence of fracture or dislocation. Bony structures visualized appeared to be adequately ossified. Procedures Orders Placed This Encounter Procedures XR knee 1 or 2 views left Order Specific Question: Views Answer: AP Order Specific Question: Views Answer: Lateral Order Specific Question: Reason for exam: Answer: PAIN ASSESSMENT: ICD-10-CM 1. Acute pain of left knee M25.562 XR knee 1 or 2 views left methylPREDNISolone (Medrol Dospak) 4 MG tablets 2. Acute pain of right knee M25.561 3. Acute medial meniscus tear of right knee, initial encounter S83.241A PLAN: We have discussed her x-rays today. Her left knee is nearly completely asymptomatic her right knee is the more symptomatic of the 2 knees. Right knee is consistent with a medial meniscus tear. We have recommended a Medrol Dosepak We have discussed her restrictions for home exercise program will seeher back in 1 month with her MRI of her right knee. Questions answered in laymen terms at the bedside. The diagnosis, home exercise plan and any ongoing restrictions/ recommendations reviewed. If unable to be reached in office, I recommend evaluation at nearest Emergency Room if any symptoms worsened or new symptoms develop for requiring urgent evaluation. documented in this encounterSoutheast Missouri HospitalKrghkofygt23-74-8464 Telephone encounter Note* Telephone Encounter - Abhi Ramires NP - 10/08/2023 3:02 PM EDT Post op pain rx. PDMP reviewed [facility] [id number] Miscellaneous Notes* Telephone Encounter - Abhi Ramires NP - 10/08/2023 3:02 PM EDT Post op pain rx. PDMP reviewed documented in this encounterSoutheast [facility] [id number] Evaluation note* Encounter Date Diagnosis Assessment Notes [...] continue to monitor through routine blood work [employer] Other 08-10-2023 Evaluation note* Encounter Date Diagnosis Assessment Notes Treatment Notes Treatment Clinical Notes Sep, Right foot pain (ICD-10 - M79.671) [place] [employer] Other 07-25-2023 Evaluation note* Encounter Date Diagnosis [...] - E03.9) Chronic problem due for labs. [employer] Other 01-19-2023 Evaluation note* Encounter Date Diagnosis [...] - E78.5) Due for labs in summer. [employer] Other 12-08-2022 NoteCONSULTATION PROCEDURE DATE: 01/18/2022 PREOPERATIVE [...] will be followed up in the office.[id number] NoteCONSULTATION CONSULTATION DATE: 01/18/2022 HISTORY OF PRESENT [...] in three months' time, unless otherwise indicated.[facility] [id number] Evaluation + Plan note Diagnostic Tests Pending * CBC w/ Auto Diff 11/08/21 * Comprehensive Metabolic Panel 11/08/21 [facility] 09-08-2022 NoteCONSULTATION PROCEDURE DATE: [...] will be followed up in the office.[facility] 10-19-2021 NoteCONSULTATION CONSULTATION DATE: 10/19/2021 This [...] in three months' time unless otherwise indicated.[facility] [id number] NoteCONSULTATION CONSULTATION DATE: 09/06/2021 HISTORY OF PRESENT [...] 8/10. She has been following up with [facility] and had a benign fibroid tumor [...] procedure, and patient agrees to move forward.[facility] HealthCisrthse73-73-2923 NoteCONSULTATION PAIN MANAGEMENT CONSULTATION HISTORY: This is [...] of care and will call when needed. [facility] Signed and Approved by: ROBERTO MCNALLY . 04/27/2021 12:41:00[facility]12-14-2021 Hospital Discharge instructions Follow Up Care 01/24/2021 10:04:31 With:JANINA ALARCON, LENORE Farooq, [facility] Address: [facility] [address] [place] [address] [place], [place] [address]- When:6 months [facility] Evaluation + Plan note Future Appointments Appointment Date:11/08/2021 10:15:00 AM Scheduled Provider:Capri FULLER MD Location:[facility] Appointment Type:[facility] Follow Up Future Scheduled Tests Laboratory* CBC w/ Indices 07/25/20 * Comprehensive Metabolic Panel 07/25/20 [facility] Evaluation + Plan note Future Appointments Appointment Date:01/15/2024 12:00:00 PM Scheduled Provider: Location:[facility] Appointment Type:Surgery FT Appointment Date:01/30/2024 01:45:00 PM Scheduled Provider:Martin Tatum MD Location:[facility] Appointment Type:[facility] Follow Up Future Scheduled Tests Laboratory* O & P Exam, Routine 12/04/23 * Clostridium Difficile PCR 12/04/23 * Enteric Panel by PCR 12/04/23 [facility] Evaluation + Plan note Future Appointments Appointment Date:01/15/2024 12:00:00 PM Scheduled Provider: Location:[facility] Appointment Type:Surgery FT Appointment Date:01/30/2024 01:45:00 PM Scheduled Provider:Martin Tatum MD Location:[facility] Appointment Type:[facility] Follow Up Diagnostic Tests Pending * Celiac Disease Comprehensive 12/04/23 Future Scheduled Tests Laboratory* O & P Exam, Routine 12/04/23 * Clostridium Difficile PCR 12/04/23 * Enteric Panel by PCR 12/04/23 [facility] evaluation + Plan note Future Appointments Appointment Date:01/15/2024 12:00:00 PM Scheduled Provider: Location:[facility] Appointment Type:Surgery FT Appointment Date:01/30/2024 01:45:00 PM Scheduled Provider:Martin Tatmu MD Location:[facility] Appointment Type:[facility] Follow Up Diagnostic Tests Pending * O & P Exam, Routine 12/06/23 [facility] evaluation + Plan note Future Appointments Appointment Date:04/29/2024 09:15:00 AM Scheduled Provider:Martin Tatum MD Location:[facility] Appointment Type:BAD Follow Up Future Scheduled Tests Laboratory* Calprotectin, Fecal 01/30/24 [facility] evaluckndj noteNo assessment information available [facility] Work Phone: evaluation note* Diagnosis Arthritis of left knee- Primary [...] [facility] Diagnosis Acute pain of left knee- Primary Acute pain of right knee Acute medial meniscus tear of right knee, initial encounter documented [facility] this encounter [facility]* Diagnosis Onset Date Resolution Status Admit Date Anxiety acute April 21 8:49am Ulcerative (chronic) pancoli tis without complications acute April 8:49am [facility] Work Phone: History general Narrative - Reported* Type Description Date Medical History GERD Medical History Hypothyroid Medical History Depression Surgical History Appendectomy Surgical History Tubal Ligation Surgical History Right carpal tunnel Surgical History Right finger Surgical History 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 Hospitalization History See past surgical hx [employer] Other Hospital course Narrative No data available for this section [facility] Hospital Discharge instructions No data available for this section [facility] Progress note No data available for this section [facility] Chief Complaint and Reason for Visit Chief Complaint Esophageal Mass Chief Complaint Esophageal Mass Right Substernal Thyroid Goiter Chief Complaint Admit Date 6 month f/u April 21, 2024 8:4 9am Reason for Visit Admit Date Anxiety April 21, 2024 8:4 9am Ulcerative (chronic) pancolitis without complications April 21, 2024 8:49am Advance Directives Advance Directive Response Recorded Date/ Time Advance Directives No May 03 9:14am Summary Purpose Family History Relationship Condition Age at Onset Recorded Date/T michelle father Diabetes mellitus Unknown Cerebrovascular accident (CVA) Unknown Relationship Condition Age at Onset Recorded Date/T michelle father Diabetes mellitus Unknown Cerebrovascular accident (CVA) Unknown Unknown mother Unknown Reason for Referral Reason *FU 09/27 R foot p ain. Had Xray Diagnosis 1 Right foot pain (M79 .671) Referral Organization [facility] Referring Provider First Name Laurita Referring Provider Last Name Carmen Referring Provider Specialty Family [facility] Referred Organization [facility] Referred Provider Seymour Johnson Referred Address [address] [place], [place],[address] Referred Provider Specialty Podiatry - S urgical [...] Active Luis Gutierrez DO Attending Provider Active Customer Equipment Engineer Relationship Specialty Start Date End Date Laurita Morales MD [address] [facility] [place] [address] PCP - General Family Medicine 08/26/23 Customer Equipment Engineer Relationship Specialty Start Date End Date Laurita Morales MD [address] [facility] [place] [address] PCP - General Family Medicine 08/26/23 Customer Equipment Engineer Relationship Specialty Start Date End Date Laurita Morales MD [address] [facility] [place] [address] PCP - General Family Medicine 08/26/23 Customer Equipment Engineer Relationship Specialty Start Date End Date Laurita Morales MD [address] [facility] [place] [id number] PCP - General Family Medicine 08/26/23 Customer Equipment Engineer Relationship Specialty Start Date End Date Laurita Morales MD [address] [facility] [place] [address] PCP - General Family Medicine 08/26/23 Customer Equipment Engineer Relationship Specialty Start Date End Date Laurita Morales MD [address] [facility] [place] [address] PCP - General Family Medicine 08/26/23 Customer Equipment Engineer Relationship Specialty Start Date End Date Laurita Morales MD [address] [facility] [place] [address] PCP - General Family Medicine 08/26/23 Customer Equipment Engineer Relationship Specialty Start Date End Date Laurita Morales MD [address] [facility] [place] [address] PCP - General Family Medicine 08/26/23 Customer Equipment Engineer Relationship Specialty Start Date End Date Laurita Morales MD [address] [facility] [place] [address] PCP - General Family Medicine 08/26/23 Customer Equipment Engineer Relationship Specialty Start Date End Date Laurita Morales MD [address] [facility] [place] [address] PCP - General Family Medicine 08/26/23 Customer Equipment Engineer Relationship Specialty Start Date End Date Laurita Morales MD [address] [facility] [place] [address] PCP - General Family Medicine 08/26/23 Customer Equipment Engineer Relationship Specialty Start Date End Date Laurita Morales MD [address] [facility] [place] [address] PCP - General Family Medicine 08/26/23 Team Status: Inactive Member Role Status Dates Laurita Morales MD Primary Care Provide r, Attending Provider Active Start: April 21, 2024 End: April 21, 2024 Goals (unrecognized section and content) Goals may [...] this section No data available for this sectionGoals may be documented in an alternate section INFORMATION SOURCE (unrecogn ized section and content) DATE CREATED AUTHOR 05/23/2021 [facility] dical Specialist DATE CREATED AUTHOR AUTHOR'S ORGANIZ ATION 01/23/2022 [facility] DATE CREATED AUTHOR AUTHOR'S ORGANIZ ATION 03/17/2022 [facility] DATE CREATED AUTHOR AUTHOR'S ORGANIZ ATION 12/03/2023 [facility] DATE CREATED AUTHOR AUTHOR'S ORGANIZ ATION 12/08/2023 [facility] DATE CREATED AUTHOR AUTHOR'S ORGANIZ ATION 12/10/2023 [facility] DATE CREATED AUTHOR AUTHOR'S ORGANIZ ATION 12/12/2023 [facility] DATE CREATED AUTHOR AUTHOR'S ORGANIZ ATION 01/23/2024 [facility] DATE CREATED AUTHOR AUTHOR'S ORGANIZ ATION 01/25/2024 [facility] DATE CREATED AUTHOR AUTHOR'S ORGANIZ ATION 02/03/2024 [facility] DATE CREATED AUTHOR AUTHOR'S ORGANIZ ATION 03/26/2024 [facility] DATE CREATED AUTHOR AUTHOR'S ORGANIZ ATION 04/20/2024 [facility] dical Specialists EPIC REASON FOR VISIT (unrecogniz [...] BE BASED ON THE PRIMARY CLINICAL RECORDS. [facility]. provides no warranty or guarantee of the accuracy or completeness of information in this document.
== END 2024-04-24 09:34 | disposition home or self-care (01) ==
LOC: MRI 09:33
PROVIDERS: PCP Family Medicine; Visit Provider Orthopaedic Surgery
DX: S83.241A Other tear of medial meniscus, current injury, right knee, initial encounter (principal); M25.461 Effusion, right knee; M71.21 Synovial cyst of popliteal space [Baker], right knee; S83.271A Complex tear of lateral meniscus, current injury, right knee, initial encounter
CPT/HCPCS: 73721

== ENCOUNTER 2024-05-04 10:21 | Day surgery (SDC) | payer OTHER, SELFPAY ==
[2024-05-04 10:39] VITALS: BP 176/91; PULSE 90; TEMP 36.4; O2SAT 94
[2024-05-04 11:15] VITALS: BP 189/60; PULSE 81; O2SAT 95
[2024-05-04 11:17] VITALS: BP 203/92; PULSE 81; O2SAT 95
[2024-05-04] MEDS: 0.9 % SODIUM CHLORIDE 10 ML SYRINGE - SALINE FLUSH INJ (11:20)
--- NOTE | 2024-05-04 11:20 | P.ON_ITS ---
Date of procedure: 05/04/24 Pre-op diagnosis: Pain due to lumbar stenosis with neurogenic claudication Post-op diagnosis: same as pre-op Procedure: Procedure: Right L4-5, L5-S1 transforaminal epidural steroid injection Medications: Bupivacaine 0.25% 2cc, lidocaine 2% 1cc, depomedrol 80mg The patient was seen and examined in the preoperative holding area.? Informed consent was obtained and placed on the chart.? Patient was brought to the medical procedure unit and placed in the prone position where a timeout was completed verifying the correct patient, procedure site, position, and planned special equipment using sterile aseptic technique.? Under direct fluoroscopic visualization a 25-gauge Quincke tipped spinal needle was advanced to the designated neural foramen where contrast dye was injected to show adequate spread.? The needle was inserted at level right L4-5. There was no evidence of vascular or adverse uptake.? Epidural spread was appreciated.? The above- mentioned injectate was then placed in a 1.5 mL aliquot preceded by negative aspiration.? The needle was removed. The needle was inserted and the procedure repeated at level right L5-S1.? The surgery site was covered.? Patient was taken to the postprocedural recovery area and monitored for an appropriate length of time before found suitable for discharge in the accompaniment of a responsible adult. Anesthesia: Local Surgeon: Zulay Cook Pathology: none sent Condition: stable Disposition: no change
[2024-05-04] MEDS: LIDOCAINE HCL 2% 400 MG/20 ML MDV 3 ML INJ (11:21)
[2024-05-04] MEDS: METHYLPREDNISOLONE ACETATE 80 MG/ML VIAL INJ (11:21)
[2024-05-04] MEDS: IOHEXOL 240 MG/ML - 10 ML VIAL 12 MG INJ (11:21)
[2024-05-04] MEDS: BUPIVACAINE HCL 0.25% PF 25 MG/10 ML VIAL INJ (11:21)
== END 2024-05-04 11:27 | disposition home or self-care (01) ==
LOC: SURGOUT 10:21
PROVIDERS: PCP Family Medicine; Visit Provider Anesthesiology
DX: M48.062 Spinal stenosis, lumbar region with neurogenic claudication (principal); M54.50 Low back pain, unspecified
CPT/HCPCS: 64483; 64484; J0665; J1010; Q9966

== ENCOUNTER 2024-05-14 09:02 | Outpatient (OUT) | payer MEDICARE, OTHER, SELFPAY ==
--- NOTE | 2024-05-14 09:39 | P.CN_ITS ---
Consult Note: HPI Data of Consult Patient: known to practice within the last 3 years Requesting Physician: Renee Bernal NP Primary Care Provider: Danyell Kelly MD Consult Narrative Reason for consult: right foot pain Narrative: Tisha Cervantes a pleasant 74 year old female presents for evaluation of chronic right foot pain secondary to lumbar radiculopathy. Patient has failed to benefit from >6 weeks of PT, tylenol, nsaids, and topical voltaren cream. Patient currently utilizing aleve and baclofen PRN. Pain today 02/20 increasing with s tanding, walking, housework and activity. Pain improved with sitting lying and sleep. recent right L4-5 L5-S1 TFESI providing >90% improvement ongoing cc:: CC: Renee Bernal NP Review of Systems ROS Status of ROS 10 or more systems reviewed and unremark able except as noted in history and below Musculoskeletal Reports: extremity pain PFSH [facility] Medical History (Updated 11/29/23 @ 11:35 by Nhi Jane MD) Hypothyroid ?E03.9 - Hypothyroidism, unspecified (ICD-10) Acid reflux ?K21.9 - Gastro-esophageal reflux disease without esophagitis (ICD-10) Tumor, thyroid ?D49.7 - Neoplasm of unspecified behavior of endocrine glands and other parts of nervous system (ICD-10) Carpal tunnel syndrome ?G56.00 - Carpal tunnel syndrome, unspecified upper limb (ICD-10) Sleep apnea ?G47.30 - Sleep apnea, unspecified (ICD-10) Surgical History History of tubal ligation ?Z98.51 - Tubal ligation status (ICD-10) History of appendectomy ?Z90.49 - Acquired absence of other specified parts of digestive tract (ICD- 10) History of carpal tunnel release ?Z98.890 - Other specified postprocedural states (ICD-10) Social History Little interest or pleasure in doing things: not at all Feeling down, depressed, or hopeless: not at all Meds Home Medications and Allergies Home Medications ?Medication ?Instructions ?Recorded ?Confirmed ?Type alprazolam 0.5 mg tablet 0.5 mg PO DAILY 09/10/23 05/04/24 History escitalopram oxalate 20 mg tablet 20 mg PO DAILY 09/10/23 05/04/24 History ibuprofen 400 mg tablet 400 mg PO TID 09/10/23 05/04/24 History levothyroxine 75 mcg tablet 75 mcg PO DAILY 09/10/23 05/04/24 History omeprazole 40 mg capsule,delayed 40 mg PO DAILY 09/10/23 05/04/24 History release simvastatin 40 mg tablet 40 mg PO DAILY 09/10/23 05/04/24 History sulfasalazine 500 mg tablet 0.5 g PO DAILY 09/10/23 05/04/24 History zonisamide 50 mg capsule 50 mg PO DAILY 09/10/23 05/04/24 History magnesium oxide 400 mg PO DAILY #7 caps 11/29/23 05/04/24 Rx Allergies Allergy/AdvReac Type Severity Reaction Status Date / Time No Known Drug Allergies Allergy Verified 05/04/24 10:41 Exam Constitutional Documenting provider has reviewed patient's vital signs: yes Common normals: no apparent distress, oriented x3, healthy appearing, alert and well nourished General appearance: cooperative HENMT Common normals: normocephalic, hearing grossly normal bilaterally and moist oral mucous membranes Head and scalp: normocephalic Eye Common normals: PERRL Pupil: PERRL Neck & C-Spine Common normals: full ROM General: normal visual inspection Chest Common normals: inspection of chest normal Respiratory Common normals: normal respiratory effort, no retractions and no use of accessory muscles Back & Pelvis Lumbar spine/lower back: ROM limited and straight leg raise negative bilaterally; no pain with ROM Sacroiliac joints: SI joints normal Neuro Common normals: oriented x3, CN's II-XII intact bilaterally, moves all extremities, no focal motor deficits, no sensory deficits noted and deep tendon reflexes 2+ bilaterally Sensorium/orientation: alert Motor exam: strength 5/5 throughout and no movement abnormalities noted Psych Common normals: mental status grossly normal, thought process normal, cooperative, affect normal, speech normal and activity/motor behavior normal Speech: normal speech Thought process: normal thought process Results Additional Findings Additional findings: If on a controlled substance or opioids, I have checked an [place]AR[place] report on this patient and there are no aberrancies noted in the prescribing history.??If on a controlled substance or opioid a drug screen was completed and reviewed within the last year, and if there has not been a drug screen completed we ordered one today to monitor higher risk, state monitored pain medication use. As part of providing excellent, safe, comprehensive care, the following was completed at our patient's visit: 1. A medication reconciliation and review to ensure accurate knowledge of current/active medications, including asking our patients to inform us about any [id number] medications or herbal remedies/nutritional supplements/alternative remedies. 2. A review to specifically ensure our patients have had annual screening for screening for depression, screening for tobacco use, and screening for unhealthy alcohol use. For concerning screenings had a discussion with the patient, provided patient education, and recommended follow-up with primary care provider when appropriate. If patient noted with a risk of falling, they received education on strength, gait, and balance training to prevent future risk of falling. Portions of this note may have been carried over from the previous visit and updated as appropriate. Please note this office utilizes paper charting in addition to the electronic medical record. A list of current medications, vitals, and PMH is available there as the clinical staff outside of myself do not have access to [employer] charting during the clinic day operations. As part of providing quality comprehensive care the current medications, vitals, and PMH were reviewed in the paper chart. Assessment and Plan Assessment and Plan (1) Lumbar radiculopathy: (2) Lumbar degenerative disc disease: (3) Spondylolisthesis: Plan right L4-5 L5-S1 TFESI providing significant ongoing relief continue HEP as tolerated continue current medications f/u 3 months, sooner if needed
== END 2024-05-14 09:03 | disposition home or self-care (01) ==
LOC: PM 09:02
PROVIDERS: PCP Family Medicine; Visit Provider Nurse Practitioner
DX: M54.16 Radiculopathy, lumbar region (principal); M51.369 Other intervertebral disc degeneration, lumbar region without mention of lumbar back pain or lower extremity pain; M43.16 Spondylolisthesis, lumbar region
CPT/HCPCS: G0463

== ENCOUNTER 2024-06-24 11:27 | Outpatient (OUT) | payer MEDICARE, OTHER, SELFPAY ==
[2024-06-24 12:07] LABS: BUN Creatinine Ratio 14.7; Calcium 9.4 mg/dL (8.5-10.1); Carbon Dioxide 30.4 mmol/L (21.0-32.0); Chloride 103 mmol/L (98-107); Estimated GFR (African America >60 (>=60 mL/min/1.73m^2); Estimated GFR (Non-African Ame >60 (>=60 mL/min/1.73m^2); Glucose 91 mg/dL (74-106); Potassium 4.4 mmol/L (3.5-5.1); Sodium 137 mmol/L (136-145)
== END 2024-06-24 11:28 | disposition home or self-care (01) ==
LOC: LAB 11:32
PROVIDERS: PCP Family Medicine; Visit Provider Personal Emergency Response Attendant
DX: Z01.818 Encounter for other preprocedural examination (principal)
CPT/HCPCS: 36415; 80048

== ENCOUNTER 2024-08-05 10:42 | Outpatient (OUT) | payer MEDICARE, OTHER, SELFPAY ==
--- NOTE | 2024-08-05 11:16 | PM.CN ---
Consult Note: HPI Data of Consult Patient: known to practice within the last 3 years Requesting Physician: Renee Bernal NP Primary Care Provider: Danyell Kelly MD Consult Narrative Reason for consult: right foot pain Narrative: Tisha Cervantes a pleasant 74 year old female presents for evaluation of chronic right foot pain secondary to lumbar radiculopathy, sciatica, lumbar stenosis, and lumbar ddd. Patient has failed to benefit from >6 weeks of PT, tylenol, nsaids, and topical voltaren cream. previously failed zonegran and baclofen. Patient currently utilizing aleve and tylenol PRN. Pain today 8/10 increasing with standing, walking, housework and activity. pt reports last right L4-5 L5-S1 TFESI helped for less than 1 month, she cannot remember when her pain worsened. denies falls of injury since last visit. cc:: CC: Renee Bernal NP Review of Systems ROS Status of ROS 10 or more systems reviewed and unremarkable except as noted in history and below Musculoskeletal Reports: extremity pain PFSH PFSH Medical History (Updated 08/05/24 @ 11:19 by Renee Bernal NP) Hypothyroid ?E03.9 - Hypothyroidism, unspecified (ICD-10) Acid reflux ?K21.9 - Gastro-esophageal reflux disease without esophagitis (ICD-10) Tumor, thyroid ?D49.7 - Neoplasm of unspecified behavior of endocrine glands and other parts of nervous system (ICD-10) Carpal tunnel syndrome ?G56.00 - Carpal tunnel syndrome, unspecified upper limb (ICD-10) Sleep apnea ?G47.30 - Sleep apnea, unspecified (ICD-10) Surgical History History of tubal ligation ?Z98.51 - Tubal ligation status (ICD-10) History of appendectomy ?Z90.49 - Acquired absence of other specified parts of digestive tract (ICD-10) History of carpal tunnel release ?Z98.890 - Other specified postprocedural states (ICD-10) Social History Little interest or pleasure in doing things: not at all Feeling down, depressed, or hopeless: not at all Meds Home Medications and Allergies Home Medications ?Medication ?Instructions ?Recorded ?Confirmed ?Type alprazolam 0.5 mg tablet 0.5 mg PO DAILY 09/10/23 05/04/24 History escitalopram oxalate 20 mg tablet 20 mg PO DAILY 09/10/23 05/04/24 History ibuprofen 400 mg tablet 400 mg PO TID 09/10/23 05/04/24 History levothyroxine 75 mcg tablet 75 mcg PO DAILY 09/10/23 05/04/24 History omeprazole 40 mg capsule,delayed 40 mg PO DAILY 09/10/23 05/04/24 History release simvastatin 40 mg tablet 40 mg PO DAILY 09/10/23 05/04/24 History sulfasalazine 500 mg tablet 0.5 g PO DAILY 09/10/23 05/04/24 History zonisamide 50 mg capsule 50 mg PO DAILY 09/10/23 05/04/24 History magnesium oxide 400 mg PO DAILY #7 caps 11/29/23 05/04/24 Rx Allergies Allergy/AdvReac Type Severity Reaction Status Date / Time No Known Drug Allergies Allergy Verified 05/04/24 10:41 Exam Constitutional Documenting provider has reviewed patient's vital signs: yes Common normals: no apparent distress, oriented x3, healthy appearing, alert and well nourished General appearance: cooperative HENGA Common normals: normocephalic, hearing grossly normal bilaterally and moist oral mucous membranes Head and scalp: normocephalic Eye Common normals: PERRL Pupil: PERRL Neck & C-Spine Common normals: full ROM General: normal visual inspection Chest Common normals: inspection of chest normal Respiratory Common normals: normal respiratory effort, no retractions and no use of accessory muscles Back & Pelvis Lumbar spine/lower back: ROM limited, pain with ROM and straight leg raise positive right Sacroiliac joints: SI joints normal Other: positive facet loading strength 5/5 in BLE altered sensation to right L5,S1 Neuro Common normals: oriented x3 and CN's II-XII intact bilaterally Sensorium/orientation: alert Motor exam: strength 5/5 throughout and no movement abnormalities noted Psych Common normals: mental status grossly normal, thought process normal, cooperative, affect normal, speech normal and activity/motor behavior normal Speech: normal speech Thought process: normal thought process Results Additional Findings Additional findings: If on a controlled substance or opioids, I have checked an [place]ARRS report on this patient and there are no aberrancies noted in the prescribing history.??If on a controlled substance or opioid a drug screen was completed and reviewed within the last year, and if there has not been a drug screen completed we ordered one today to monitor higher risk, state monitored pain medication use. As part of providing excellent, safe, comprehensive care, the following was completed at our patient's visit: 1. A medication reconciliation and review to ensure accurate knowledge of current/active medications, including asking our patients to inform us about any bonh-ogt-kzbvulk medications or herbal remedies/nutritional supplements/alternative remedies. 2. A review to specifically ensure our patients have had annual screening for screening for depression, screening for tobacco use, and screening for unhealthy alcohol use. For concerning screenings had a discussion with the patient, provided patient education, and recommended follow-up with primary care provider when appropriate. If patient noted with a risk of falling, they received education on strength, gait, and balance training to prevent future risk of falling. Portions of this note may have been carried over from the previous visit and updated as appropriate. Please note this office utilizes paper charting in addition to the electronic medical record. A list of current medications, vitals, and PMH is available there as the clinical staff outside of myself do not have access to [employer] charting during the clinic day operations. As part of providing quality comprehensive care the current medications, vitals, and PMH were reviewed in the paper chart. Assessment and Plan Assessment and Plan (1) Sciatica: Assessment and Plan: The patient has had over 3 months of moderate to severe right foot and low back pain with functional impairment and inadequate response to conservative care including NSAIDS (unless there are contraindication such as concurrent blood thinners), multiple oral or topical pain medications, and home exercise program/physical therapy.? Patient has completed >6 weeks of guided home exercise program and/or formal physical therapy program without relief of their symptoms.? The Oswestry Disability Index was completed, and the patient scored a 49%.? The patient noted the following:?? moderate to severe pain impacting ADLs, sitting, standing, walking, sleeping, social life, and travel ? We discussed the risks and benefits of the procedure with the patient, and we are NOT planning on using sedation as outlined in the guidelines from Medicare unless there is a documented reason that sedation would be strongly recommended.?? ?The procedure will be completed with fluoroscopic guidance.? (2) Lumbar radiculopathy: (3) Lumbar degenerative disc disease: (4) Spondylolisthesis: (5) Degenerative disc disease (DDD) of lumbar region with discogenic back pain and leg pain: Plan 74 year old female with chronic low back and right foot pain presents for evaluation. has failed to benefit from > 6 weeks of PT/HEP, heat, ice, tylenol, NSAIDs. historically pt has declined NS consultation, pt does not recall this. pt does not recall prior medications she has trialed. pt does not recall discussing spinal cord stimulation. at this time will start gabapentin 100mg BID, risks vs benefits reviewed caution higher doses. proceed with right sciatic nerve block under fluoroscopy. update lumbar MRI without contrast, will refer to NS at [facility] for further evaluation once resulted. f/u with our office 1-2 weeks after injection.
== END 2024-08-05 10:43 | disposition home or self-care (01) ==
PROVIDERS: PCP Family Medicine; Visit Provider Nurse Practitioner
DX: M54.31 Sciatica, right side (principal); M54.16 Radiculopathy, lumbar region; M51.369 Other intervertebral disc degeneration, lumbar region without mention of lumbar back pain or lower extremity pain; M43.10 Spondylolisthesis, site unspecified
CPT/HCPCS: G0463

== ENCOUNTER 2024-08-10 07:57 | Day surgery (SDC) | payer MEDICARE, OTHER, SELFPAY ==
--- OUTSIDE RECORDS SUMMARY | 2023-06-04 07:30 | XMS_ITS ---
Author Organization The [facility] [place] Address [address] [place] [address] Care Team Providers Care Construction Lineman Name Role Phone Danyell Kelly Primary Care Provider Seymour Zavala Unavailable [phone] Allergies Allergen (clinical drug ingredient) Drug/Non Drug Allergy documented on EMR Reaction Allergy Type Onset Date Status varenicline Chantix Unknown Drug Allergy Activ e Results Component Value Reference Range Notes XR Foot RT (3 views) * Reviewed date:06/07/2023 10:50:58 AM Interpretation: Performing Lab: Notes/Report: XR Ankle RT (3 views) * (161 ) Reviewed date:06/07/2023 11:16:00 AM Interpretation: Performing Lab: Notes/Report: Reason For Referral Reason evaluate and treat - - see order for details Diagnosis 1 Peroneal tendinitis, right leg (M76.71) Referral Organization [facility] (PODIATRY) Referring Provider First Name Seymour Referring Provider Last Name Alex Referring Provider Speciality Podiatry Referred Provider TB, Physical Therap y Referred Provider Specialty Physical Med icine and Rehabilitation Referral Priority Routine Referral Appointment Date 06/10/2023 REASON FOR VISIT RT foot pain Medications Medication SIG (Take, Route, Frequency, Duration) Notes Start Date End Date Status sulfaSALAzine 500 MG 1 tablet Orally Onc e a day Active predniSONE 10 MG 1 tablet Orally as directed for 9 days Take 30mg daily for 3 days, then take 20mg daily for 3 days, then take 10mg daily for 3 days. 06/04/2023 Active Simvastatin 40 MG 1 tablet in the even ing Orally Once a day Active ALPRAZolam 0.5 MG 1 tablet Orally Twic e a day Active Escitalopram Oxalate 20 MG 1 tablet Oral ly Once a day Active Omeprazole 20 MG 1 capsule 30 minutes before morning meal Orally Once a day Active Levothyroxine Sodium 75 MCG 1 tablet in the morning on an empty stomach Orally Once a day Active Social History Tobacco Use: Social History Observation Description Date Details (start date - stop date) Former Smoker NA - NA Tobacco Use/Smoking Question Answer Notes Patient is a former smoker Vital Signs Weight 160 lbs 06/04/2023 Height 55.5 in 06/04/2023 Temperature 97 degrees Fahrenheit 06/04/2023 Heart Rate 80 /min 06/04/2023 BMI 36.52 kg/m2 06/04/2023 Encounters Encounter Location Date Provider Diagnosis [facility] (PODIATRY) [address] [place] [address] [place] [address] [facility] foot M79.671 ; Peroneal tendinitis, right leg M76.71 ; Right ankle pain M25.571 and Other specified joint disorders, right ankle and foot M25.871 Assessments Encounter Date Diagnosis (ICD Code) Assessment Notes Treatment Notes Treatment Clinical Notes Section Notes 06/04/2023 Pain in right foot (ICD-10 - M79.671) 06/04/2023 Peroneal tendinitis, right leg (ICD-10 - M76.71) Patient was seen and evaluated. Patient education was provided and all questions were answered to satisfaction.1. Imaging reviewed with the patient2. Prescriptions:prednisone taper for nine days3. physical therapyprescriptionwas provided - patient also relates to its lateral hip knee and back pain. No distal to strengthening, balance training and range of motion I recommended pool therapy4.ASO ankle brace is fitted and dispensed5.rice therapy discussed and recommended Follow-up:six weeksImaging to obtain at f/u: none 06/04/2023 Right ankle pain (ICD-10 - M25.571) 06/04/2023 Other specified joint disorders, right ankle and foot (ICD-10 - M25.871) Plan Of Treatment Medication Medication Name Sig Start Date Stop Date Notes predniSONE 10 MG 1 tablet Orally as directed for 9 days Treatment Notes Assessment Notes Peroneal tendinitis, right leg Patient was seen and evaluated. Patient education was provided and all questions were answered to satisfaction.1. Imaging reviewed with the patient2. Prescriptions:prednisone taper for nine days3. physical therapyprescriptionwas provided - patient also relates to its lateral hip knee and back pain. No distal to strengthening, balance training and range of motion I recommended pool therapy4.ASO ankle brace is fitted and dispensed5.rice therapy discussed and recommended Follow-up:six weeksImaging to obtain at f/u: none Referrals Referral Date Details 06/04/2023 06/04/2023, evaluate and treat -- see order for details, Physical Therapy [facility] Progress Notes * Tisha CERVANTESDOB:1950 (73 yo F)Acc No.[id number]:06/04/2023 Follow Up Patient: Tisha CONSTANTINO Provider: Will Johnson DPM, MS :1950 A ge:73 Y S ex:Female Date:06/04/2023 Address:[address] [place], [place] [id number] Pcp:Danyell Kelly Check In:11:15 AM ESTCheck O ut:12:06 PM EST Subjective: * Chief Complaints: * R T foot pain * HPI: G eneral: pt is having a lot of pain in her right foot and ankle. The pain started in [facility]. She has been seeing [facility] due to arthritis in her knee and had injections. She has tried a brace which helps at times. She noticed swelling due to her shoes feeling tighter. She is unable to walk her dog due to the pain. She is wearing tennis shoes, and she isnt wearing crocs anymore. She does the at home excerises as much as she can . She is trying to stretching and that is bothering her. She has tried a lot of the over the counter rubs and different medications for this. She tried heat and ice. * ROS: G eneral/Constitutional: Chills d enies. F ever d enies. W eight gain?denies. W eight loss d enies. S kin: Skin Ulcers d enies. S kin lesion(s) d enies. ? C ardiovascular: Difficulty breathing on exertion d enies. L eg cramps?denies. E mishel d enies. C hest pain d enies. R espiratory: Difficulty breathing d enies. D yspnea d enies.?Cough d enies. G astrointestinal: Diarrhea d enies. N ausea d enies. V omiting?denies. M usculoskeletal: Bone/Joint Symptoms d enies. C half-way Pain d enies.?Leg cramps d enies. N eurologic: Numbness d enies. T ingling d enies . G ait abnormality d enies. ? H ematology: Anemia D enies. E asy bruising d enies. ? A ll Other Systems: Review of Systems (ROS) S ee HPI for details,All others negative except those mentioned in HPI. 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 M other: . * Social History: T obacco Use: T obacco Use/Smoking P atient is a f ormer smoker * Medications: T akingALPRAZolam 0.5 MG Tablet 1 tablet Orally Twice a day Escitalopram Oxalate 20 MG Tablet 1 tablet Orally Once a day Levothyroxine Sodium 75 MCG Tablet 1 tablet in the morning on an empty stomach Orally Once a day Omeprazole 20 MG Capsule Delayed Release 1 capsule 30 minutes before morning meal Orally Once a day Simvastatin 40 MG Tablet 1 tablet in the evening Orally Once a day sulfaSALAzine 500 MG Tablet 1 tablet Orally Once a day Medication List reviewed and reconciled with the patientTaking ALPRAZolam 0.5 MG Tablet 1 tablet Orally Twice a day Taking Escitalopram Oxalate 20 MG Tablet 1 tablet Orally Once a day Taking Levothyroxine Sodium 75 MCG Tablet 1 tablet in the morning on an empty stomach Orally Once a day Taking Omeprazole 20 MG Capsule Delayed Release 1 capsule 30 minutes before morning meal Orally Once a day Taking Simvastatin 40 MG Tablet 1 tablet in the evening Orally Once a day Taking sulfaSALAzine 500 MG Tablet 1 tablet Orally Once a day Medication List reviewed and reconciled with the patient * Allergies: C isaiahjenn[Allergies Verified] Objective: * Vitals: W t:160lbs, Ht: 55.5 in, Temp:97F, HR:80/min, BMI:36.52Index, Pain scale:51-10, Ht-cm: 140.97 cm, Wt-k.57 kg. * Examination: P odiatry Examination: SKIN: s kin intact, n o sign of infection. MUSCULOSKELETAL: P OP along the peroneal tendonsposterior to the fibular malleolus. Negative anterior drawer. No pain over the bony prominences or the foot. Ankle range of motion is without crepitus and limited to zero degrees of dorsiflexion. NEUROLOGICAL: l ight touch sensation intact, n egative tinel's sign. VASCULAR: P edal pulses palpable, C apillaryrefill is brisk to toe. X -rays: x-rays were obtained & reviewed in my office. There is no evidence of fracture or trauma. Small anterior osteophyte noted on lateral projection on anterior tibia. Joint spaces are preserved in the ankle and hindfoot. Assessment: * Assessment: 1. P eroneal tendinitis, right leg - M76.71 (Primary) 2 . P ain in right foot - M79.671?3. R ight ankle pain - M25.571 4 . O ther specified joint disorders, right ankle and foot - M25.871 Plan: * Treatment: 2. P ain in right foot I maging: XR Foot RT (3 views) * 3. R ight ankle pain I maging: XR Ankle RT (3 views) * (161) * Procedure Codes: * * Sign off status: Completed Visit Status: C HK (Check Out) true * Provider: Will Johnson DPM, MS Date: 0 06/04/2023 Generated for Charleen milligan/Faxing/eTransmitting on: 0 08/10/2024 07:59 AM EDT History and Physical Notes * Examination Category Sub-Category Detail Notes Category Not es Podiatry Examination SKIN: skin intact, no sign of infection X-rays: x-rays were obtained & reviewed in my office. There is no evidence of fracture or trauma. Small anterior osteophyte noted on lateral projection on anterior tibia. Joint spaces are preserved in the ankle and hindfoot MUSCULOSKELETAL: POP along the perone al tendonsposterior to the fibular malleolus. Negative anterior drawer. No pain over the bony prominences or the foot. Ankle range of motion is without crepitus and limited to zero degrees of dorsiflexion NEUROLOGICAL: light touch sensatio n intact, negative tinel's sign VASCULAR: Pedal pulses palpable, Capillary refill is brisk to toe Consultation Request Notes Referral Date Referring Provider Referred Provider Not es 06/04/2023 Seymour Johnson [facility], Physical Therapy e valuate and treat -- see order for details
--- OUTSIDE RECORDS SUMMARY | 2023-08-06 10:45 | XMS_ITS ---
Author Organization [facility] in [place] Address [address] [place] [address] Care Team Providers Care Operations Research Analyst Name Role Phone Danyell Kelly Primary Care Provider Seymour Zavala [phone] Allergies Allergen (clinical drug ingredient) Drug/Non Drug Allergy documented on EMR Reaction Allergy Type Onset Date Status varenicline Chantix Unknown Drug Allergy Activ e Results Component Value Reference Range Notes MRI Ankle RT w/o contrast (H ind Foot) Reviewed date:09/10/2023 09:29:31 AM Interpretation: Performing Lab: Notes/Report: REASON FOR VISIT 6 week f/u Medications Medication SIG (Take, Route, Frequency, Duration) Notes Start Date End Date Status Levothyroxine Sodium 75 MCG 1 tablet in the morning on an empty stomach Orally Once a day Active Escitalopram Oxalate 20 MG 1 tablet Oral ly Once a day Active ALPRAZolam 0.5 MG 1 tablet Orally Twic e a day Active Omeprazole 20 MG 1 capsule 30 minutes before morning meal Orally Once a day Active Aleve 220 MG 1 tablet with food o r milk as needed Orally every 12 hrs Active Simvastatin 40 MG 1 tablet in the even ing Orally Once a day Active Advil 200 MG 1 tablet with food o r milk as needed Orally Three times a day Active sulfaSALAzine 500 MG 1 tablet Orally Onc e a day Active Social History Tobacco Use: Social History Observation Description Date Details (start date - stop date) Former Smoker NA - NA Tobacco Use/Smoking Question Answer Notes Patient is a former smoker Vital Signs Height 55.5 in 08/06/2023 Temperature 97.6 degrees Fahrenheit 08/06/19 Heart Rate 80 /min 08/06/2023 Respiratory Rate 16 /min 08/06/2023 Oximetry 97 % 08/06/2023 Encounters Encounter Location Date Provider Diagnosis [facility] (PODIATRY) [address] [place] [address] [place] [address] 08/06/2023 Seymour Johnson Peroneal tendinitis, right leg M76.71 ; Radiculopathy, lumbar region M54.16 and Right ankle pain M25.571 Assessments Encounter Date Diagnosis (ICD Code) Assessment Notes Treatment Notes Treatment Clinical Notes Section Notes 08/06/2023 Peroneal tendinitis, right leg (ICD-10 - M76.71) The patient is a 73-year-old female who presents for reevaluation of right ankle and leg pain that has been present for greater than 6 months. No injury at onset.The patient states the ankle brace sometimes helps, but sometimes provides no relief in symptoms.At last evaluation, the patient had tenderness over the peroneal tendons, consistent with tendinitis. She does not have pain at this location today, rather she reports anterior ankle and lower leg pain that radiates up to her right anterior thigh.The patient was advised that her symptoms are concerning for lumbar radiculopathy. She could also have peroneal tendon or other ankle issues concurrently.I recommend we obtain an MRI of the ankle to further assess the peroneal tendons and ATFL.If the ankle MRI is negative we will consider referral to pain management. The patient is agreeable. 08/06/2023 Radiculopathy, lumbar region (ICD-10 - M54.16) 08/06/2023 Right ankle pain (ICD-10 - M25.571) Plan Of Treatment Treatment Notes Assessment Notes Peroneal tendinitis, right leg The patie nt is a 73-year-old female who presents for reevaluation of right ankle and leg pain that has been present for greater than 6 months. No injury at onset.The patient states the ankle brace sometimes helps, but sometimes provides no relief in symptoms.At last evaluation, the patient had tenderness over the peroneal tendons, consistent with tendinitis. She does not have pain at this location today, rather she reports anterior ankle and lower leg pain that radiates up to her right anterior thigh.The patient was advised that her symptoms are concerning for lumbar radiculopathy. She could also have peroneal tendon or other ankle issues concurrently.I recommend we obtain an MRI of the ankle to further assess the peroneal tendons and ATFL.If the ankle MRI is negative we will consider referral to pain management. The patient is agreeable. Progress Notes * Tisha CERVANTESDOB:1950 (73 yo F)Acc No.[id number]:08/06/2023 Follow Up Patient: Tisha CONSTANTINO Provider: Will Johnson DPM, MS :1950 A ge:73 Y S ex:Female Date:08/06/2023 Address:[address] [place] [address], [phone] Pcp:Danyell Kelly Check In:02:20 PM ESTCheck O ut:03:16 PM EST Subjective: * Chief Complaints: * 6 week f/u * HPI: G eneral: Patient continues to have pain in her right dorsal ankle that radiates up her anterior garcia. The pain started in 2022. She has been seeing Dr. Marino due to arthritis in her knee and had injections. She has tried a brace which helps at times but at other times it causes more pain. She is wearing tennis shoes but would like to go barefoot. She does the at home excerises as much as she can . She tried heat and ice. Currently states that she gets needles, tingling, achy symptoms. Currently pain is 7/10. She takes aleve or advil as needed. * ROS: G eneral/Constitutional: Chills d enies. [...] Family History: F ather: , diagnosed with Diabetes mellitus without mention of complication, type II or unspecified type, not stated as uncontrolled. M other: . * Social History: T obacco Use: T obacco Use/Smoking P atient is a f ormer smoker * Medications: T akingAdvil(Ibuprofen) 200 MG Tablet 1 tablet with food or milk as needed Orally Three times a day Aleve(Naproxen Sodium) 220 MG Tablet 1 tablet with food or milk as needed Orally every 12 hrs ALPRAZolam 0.5 MG Tablet 1 tablet Orally [...] 1 tablet Orally Once a day Taking Advil(Ibuprofen) 200 MG Tablet 1 tablet with food or milk as needed Orally Three times a day Taking Aleve(Naproxen Sodium) 220 MG Tablet 1 tablet with food or milk as needed Orally every 12 hrs Taking ALPRAZolam 0.5 MG Tablet 1 tablet Orally [...] Tablet 1 tablet Orally Once a day DiscontinuedpredniSONE 10 MG Tablet 1 tablet Orally as directed Take 30mg daily for 3 days, then take 20mg daily for 3 days, then take 10mg daily for 3 days.Medication List reviewed and reconciled with the patientDiscontinued predniSONE 10 MG Tablet 1 tablet Orally as directed Take 30mg daily for 3 days, then take 20mg daily for 3 days, then take 10mg daily for 3 days.Medication List reviewed and reconciled with the patient * Allergies: Mei issa[Allergies Verified] Objective: * Vitals: H t: 55.5 in, Temp:97.6F, HR:80/min, RR:16/min, Pain scale:71-10, Oxygen sat %:97%, Ht-cm: 140.97 cm. * Examination: P odiatry Examination: SKIN: s kin intact, n o sign of infection. MUSCULOSKELETAL: R ight foot and ankle are rectusNo pain with palpation of the peroneal tendons or ATFLStrength 5/5 in all planesPain elicited with dorsiflexion against resistanceRange of motion of the ankle and hindfoot is within normal limits. NEUROLOGICAL: L ight touch sensation is intact in all nerve distributions, Positive Tinel's sign with percussion over the common peroneal nerve. VASCULAR: P alpable pedal pulses, Mild ankle swelling, No calf pain on squeeze. Assessment: * Assessment: 1. P eroneal tendinitis, right leg - M76.71 (Primary) 2 . R adiculopathy, lumbar region - M54.16 3 . R ight ankle pain - M25.571 Plan: * Treatment: 2. R ight ankle pain I maging: MRI Ankle RT w/o contrast * Procedure Codes: * * Sign off status: Completed Visit Status: C HK (Check Out) true * Provider: Will Johnson DPM, MS Date: 0 08/06/2023 Generated for Charleen milligan/Brant/eTransmitting on: 0 08/10/2024 08:00 AM EDT History and Physical Notes * Examination Category Sub-Category Detail Notes Category Not es Podiatry Examination SKIN: skin intact, no sign of infection MUSCULOSKELETAL: Right foot and ankle are rectusNo pain with palpation of the peroneal tendons or ATFLStrength 5/5 in all planesPain elicited with dorsiflexion against resistanceRange of motion of the ankle and hindfoot is within normal limits NEUROLOGICAL: Light touch sensatio n is intact in all nerve distributions, Positive Tinel's sign with percussion over the common peroneal nerve VASCULAR: Palpable pedal pulse s, Mild ankle swelling, No calf pain on squeeze
--- OUTSIDE RECORDS SUMMARY | 2023-08-21 05:45 | XMS_ITS ---
Author Organization [facility] in [place] Address [address] [place] [address] Care Team Providers Care Pin Inserter Name Role Phone Danyell Kelly Primary Care Provider Seymour Zavala Unavailable [phone] Allergies Allergen (clinical drug ingredient) Drug/Non Drug Allergy documented on EMR Reaction Allergy Type Onset Date Status varenicline Chantix Unknown Drug Allergy Activ e Reason For Referral Reason Pain Management [facility] Diagnosis 1 Radiculopathy, lumba r region (M54.16) Referral Organization [facility] (PODIATRY) Referring Provider First Name Seymour Referring Provider Last Name Alex Referring Provider Speciality Podiatry Referred Provider Specialty Pain Medicin e Referral Priority Routine Reason referral to Dr. Sherif neal Diagnosis 1 Left knee pain (M25. 562) Referral Organization [facility] (PODIAT[facility]) Referring Provider First Name Seymour Referring [...] former smoker Vital Signs Weight 160 lbs 08/21/2023 Height 55.5 in 08/21/2023 Temperature 97.2 degrees Fahrenheit 08/21/19 24 Heart Rate 84 /min 08/21/2023 Respiratory Rate 16 /min 08/21/2023 BMI 36.52 kg/m2 08/21/2023 Encounters Encounter Location Date Provider Diagnosis [facility] (PODIAT[facility]) [address] [place] [address] [place] [address] 08/21/2023 Peter Mauriander Right ankle pain M25.571 [...] Date Details 08/23/2023 08/23/2023, Pain Man agement [facility] 08/23/2023 08/23/2023, referral to Dr. Curran Progress Notes * Tisha CERVANTESDOB:1950 (73 yo F)Acc No.[id number]:08/21/2023 Follow Up Patient: Tisha CONSTANTINO Provider: Will Johnson DPM, MS :1950 A ge:73 Y S ex:Female Date:08/21/2023 Address:[address] [place], [place] [address] , [place], [id number] Pcp:Danyell Kelly Check In:09:31 AM ESTCheck O [...] lumbar region Referral To:Pain Medicine Reason:Pain Management [facility] 3. O thers Referral To:Orthopedic Surgery Reason:referral to Dr. Curran * Procedure Codes: * * Sign off status: Completed Visit Status: C HK (Check Out) true * Provider: Will Johnson DPM, MS Date: 08/21/2023 Generated for Charleen milligan/Brant/Augustusitting on: 08/10/2024 07:59 AM EDT History and Physical [...]
--- OUTSIDE RECORDS SUMMARY | 2024-08-10 07:59 | XMS_ITS | Encounter Summary ---
Author Organization [facility] Address [address] [place] [address] Care Team Providers Care Geospatial Imagery Intelligence Analyst Name Role Phone Danyell Kelly MD Primary Care Provider Danyell Kelly MD Primary Care Provider [phone] Encounter Details Date Type Department Care Team ([facility] [address] Contact Info) Description 06/24/2024 Results Follow-Up [facility] [address] [place] [phone] Montana Veras PA [address] [facility] 150 [place], [place] [phone] Social History Tobacco Use Types Packs/Day Years Used Date Smoking Tobacco: Every Day Cigarettes Smokeless Tobacco: Never Alcohol Use Standard Drinks/Week Comments Yes 0 (1 standard drink = 0.6 oz pur e alcohol) Occationally Comments Unknown Sex and Gender Information Value Date Recorded Sex Assigned at Not on file Legal Sex Female 7:27 PM EDT Gender Identity Not on file Sexual Orientation Not on file documented as of this encounter Plan of Treatment Upcoming Encounters Date Type Department Care Team ([facility] [address] Contact Info) Description 08/20/2024 9:30 AM EDT Office Visit [facility] [address] [facility] [address] [place] [address] Montana Veras PA 112 [facility] 150 [place] [address] documented as of this encounter Visit Diagnoses Not on filedocumented in this encounter Care Teams Geospatial Imagery Intelligence Analyst Relationship Specialty Start Date End Date Danyell Kelly MD PCP - General Family Medicine 08/26/23 07/15/24 Danyell Kelly MD [address] [place] [phone] PCP - General Family Medicine 07/16/24 documented as of this encounter
--- OUTSIDE RECORDS SUMMARY | 2024-08-10 07:59 | XMS_ITS | Encounter Summary ---
Author Organization [facility] Address [address] [place] [address] Care Team Providers Care District Wildlife Manager Name Role Phone Danyell Kelly MD Primary Care Provider [phone] Danyell Kelly MD Primary Care Provider [phone] Encounter Details Date Type Department Care Team (Late Contact Info) Description 03/18/2024 Orders Only [facility] [address] [facility] 150 [place] [phone] Teressa Elizondo MA Internal derangement of left knee Social History Tobacco Use Types Packs/Day Years Used Date Smoking Tobacco: Every Day Cigarettes Smokeless Tobacco: Never Alcohol Use Standard Drinks/Week Comments Yes 0 (1 standard drink = 0.6 oz pur e alcohol) Comments Unknown Sex and Gender Information Value Date Recorded Sex Assigned at Not on file Legal Sex Female 7:27 PM EDT Gender Identity Not on file Sexual Orientation Not on file documented as of this encounter Plan of Treatment Upcoming Encounters Date Type Department Care Team (Late Contact Info) Description 08/20/2024 9:30 AM EDT Office Visit [facility] [address] [facility] 110 [place] [address] Montana Veras PA [address] [facility] 150 [place] [address] documented as of this encounter Procedures Procedure Name Priority Date/Time Associated Diagnosis Comments MR KNEE LEFT WO IV CONTRAST Routine 03/18/2024 8:08 AM EST Internal derangement of left knee documented in this encounter Results * MR knee left wo IV contrast (03/18/2024 8:08 AM EST) us Adali Giordano FORECLOSURE SPECIALIST IMG MRI PROCEDURES Final Resul t documented in this encounter Visit Diagnoses Diagnosis Internal derangement of left knee documented in this encounter Care Teams District Wildlife Manager Relationship Specialty Start Date End Date Danyell Kelly MD PCP - General Family Medicine 08/26/23 07/15/24 Danyell Kelly MD [address] [place] [phone] PCP - General Family Medicine 07/16/24 documented as of this encounter
--- OUTSIDE RECORDS SUMMARY | 2024-08-10 08:00 | XMS_ITS | Clinical Summary ---
Author Organization [facility] Address [address] [place] [address] Care Team Providers Care Early Childhood Coordinator Name Role Phone Danyell Kelly MD Primary Care Provider [phone] Allergies Active Allergy Reactions Criticality Noted Date Comments Varenicline 08/26/2023 Bad dreams Medications ALPRAZolam (Xanax) 0.5 MG tablet Take 0.5 mg by mouth as needed at bedtime 4 Active escitalopram (Lexapro) 20 MG tablet Take 20 mg by mouth Daily Active sulfaSALAzine (Azulfidine) 500 MG tablet Take 500 mg by mouth 1 (one) time each day at the same time Active omeprazole (PriLOSEC) [address] capsule 4 Active levothyroxine (Synthroid, Levoxyl) 75 MCG tablet 1 (one) time each day at the same time Active ibuprofen (Advil) 200 MG tablet every 8 (eight) hours Active zonisamide (Zonegran) 50 MG capsule TAKE TWO CAPSULES BY MOUTH DAILY AT BEDTIME 4 Active simvastatin (Zocor) 40 MG tablet Take 40 mg by mouth at bedtime 4 Active mesalamine (Lialda) 1.2 g EC tablet 4 Active busPIRone (Buspar) 15 MG tablet Take 15 mg by mouth in the morning and 15 mg before bedtime. 5 Active Misc. Devices miscIndications: Pre-op examination Dispense: Front Wheeled walker use 90 days. Ht: 4'11 Weight: 159lb 1 Units 5 Active Active Problems Problem Noted Date Diagnosed Date Anxiety 09/04/2023 Chronic ulcerative pancolitis 09/04/2023 Hyperlipidemia, unspecified 09/04/2023 Hypothyroid 09/04/2023 Obstructive sleep apnea 09/04/2023 Status post total thyroidectomy 09/04/2023 Encounters Date Type Department Care Team Description 07/22/2024 11:15 AM EDT Office Visit [facility] [address] [place] [phone] Montana Veras, PA S/P right knee arthroscopy (Primary Dx) 07/22/2024 Bamboo flowsheet [facility] [address] [place] [phone] Montana Veras PA 07/22/2024 Travel 07/03/2024 [place]ill [place] [phone] Tenzin [place], LUBRICATING ENGINEER Acute medial meniscus tear of right knee, initial encounter (Primary Dx) 06/30/2024 9:30 AM EDT Evaluation [facility] [address] [place] [address] Sofia Bull, PT Pre-op examination (Primary Dx); Localized osteoarthritis of right knee 06/30/2024 Plan of Care Documentation [facility] [address] [place] [address] 06/30/2024 Bamboo flowsheet [facility] [address] [place] [address] Sofia Bull, PT 06/30/2024 Travel 06/24/2024 Telephone [facility] [address] [place] [phone] Jr. Raphael Guerrero DO Walker 06/24/2024 Results Follow-Up [facility] [place] [phone] Montana Veras PA 06/24/2024 Clinisync Result Encounter [facility] External Department Unsolicited Montana Veras PA 06/23/2024 1:30 PM EDT Office Visit [facility] [address] [place] [address] Montana Veras PA Pre-op examination (Primary Dx) 06/23/2024 Bamboo flowsheet [facility] [address] [place] [phone] Montana Veras PA 06/23/2024 Travel 05/13/2024 9:00 AM EDT Office Visit [facility] [address] [place] [address] Jr. Raphael Guerrero, Acute pain of right knee (Primary Dx); Acute medial meniscus tear of right knee, initial encounter 05/13/2024 Bamboo flowsheet [facility] [address] [place] [phone] Jr. Raphael Guerrero, 05/13/2024 Travel from Last 3 Months Immunizations Immunization Administration Dates Next Due ABRYSVO - Respiratory syncyt ial virus (RSV), vaccine, bivalent, protein subunit RSV prefusion F, diluent reconstituted, 0.5 mL, PF 12/03/2022 Hep B, adult 01/29/2003,08/10/2002,07/08/2002 Influenza, High Dose Seasona l, Preservative Free 10/24/2016 Influenza, Seasonal, Quadriv alent, Adjuvanted 11/07/2022 Influenza, Unspecified 11/15/2020,11/20/2019 Influenza, seasonal, injectable 11/11/2012 Influenza, seasonal, injecta ble, preservative free 11/16/2014 Influenza, trivalent, adjuvanted 11/21/2021,05/2017,11/08/2015 Pneumococcal Conjugate PCV 13 10/24/2016 Pneumococcal Polysaccharide PPSV23 11/20/2017,,11/30/2013 SARS-COV-2 (COVID-19) vaccin e, mRNA, spike protein, LNP, PF, 50 mcg/0.5 mL 12/03/2022 Td (adult), 5 Lf tetanus tox oid, preservative free, adsorbed 08/31/2014 Td (adult), unspecified 07/08/2002 Zoster, Recombinant 10/01/2022,07/18/2022 Zoster, live 07/09/2018,03/24/2013 Family History Medical History Relation Name Comments Diabetes Father Stroke Father Relation Name Status Comments Father Mother Social History Tobacco Use Types Packs/Day Years Used Date Smoking Tobacco: Every Day Cigarettes Smokeless Tobacco: Never Tobacco Cessation:Ready to Q uit: Not Asked; Counseling Given: Not Answered Alcohol Use Standard Drinks/Week Comments Yes 0 (1 standard drink = 0.6 oz pur e alcohol) Occationally Comments Unknown Sex and Gender Information Value Date Recorded Sex Assigned at Not on file Legal Sex Female 7:27 PM EDT Gender Identity Not on file Sexual Orientation Not on file Last Filed Vital Signs Vital Sign Reading Time Taken Comments Blood Pressure 158/70 07/09/2018 12:00 PM EDT Pulse - - Temperature - - Respiratory Rate - - Oxygen Saturation - - Inhaled Oxygen Concentration - - Weight 72.1 kg (159 lb) 06/23/2024 1:30 PM EDT Height 149.9 cm (4' 11 ) 06/23/2024 1:30 PM EDT Body Mass Index 32.11 06/23/2024 1:30 PM EDT Plan of Treatment Upcoming Encounters Date Type Department Care Team (Late st Contact Info) Description 08/20/2024 9:30 AM EDT Office Visit [facility] [address] [place] [address] Montana Veras PA [address] [facility] 150 [place] [address] Health Maintenance Due Date Last Done Comments Pneumococcal Vaccine: 65+ Years Completed 11/20/2017, 11/14/2017, 10/24/2016, Additional history exists Influenza Vaccine Completed 11/13/2023, , 11/21/2021, Additional history exists Colonoscopy Discontinued 01/15/2024, 02/16/2020 Colorectal Cancer Screening Discontinued CT Colonography Discontinued FIT-DNA Discontinued FIT Discontinued FOBT Discontinued Sigmoidoscopy Discontinued Procedures Procedure Name Priority Date/Time Associated Diagnosis Comments ALL BASIC METABOLIC PANEL Routine 06/24/2024 11:47 AM EDT from Last 3 Months Results * ALL BASIC METABOLIC PANEL (06/24/2024 11:47 AM EDT) SODIUM 137 136 - 145 mmol/L [facility] POTASSIUM 4.4 3.5 - 5.1 mmol/L [facility] CHLORIDE 103 98 - 107 mmol/L [facility] CARBON DIOXIDE 30.4 21.0 - 32.0 mmol/L [facility] ANION GAP 8.0 [facility] GLUCOSE 91 74 - 106 mg/dL [facility] BLOOD UREA NITROGEN 11.0 7.0 - 18.0 mg/dL [facility] CREATININE 0.75 0.55 - 1.02 mg/dL [facility] EGFR-AF URUGUAYAN >60 >=60 mL/min/1.7 3m 2 [facility] EGFR-NON AF URUGUAYAN >60 >=60 mL/min/1.7 3m 2 [facility] BUN CREATININE RATIO 14.7 [facility] CALCIUM 9.4 8.5 - 10.1 mg/dL [facility] 06/24/2024 11:4 7 AM EDT 06/24/2024 11:48 AM EDT Narrative [facility] - 06/24/2024 12:27 PM EDT [place] [facility] Final Result [facility] from Last 3 Months Insurance MEDICARE T Care Teams Early Childhood Coordinator Relationship Specialty Start Date End Date Danyell Kelly MD [address] [place] [phone] PCP - General Family Medicine 07/16/24
--- OUTSIDE RECORDS SUMMARY | 2024-08-10 08:00 | XMS_ITS | Patient Health Record ---
Author Organization [facility] [place] Address [address] [place] [address] Care Team Providers Care Rn Iv Therapy Name Role Phone Danyell Kelly Primary Care Provider Seymour Zavala [phone] Allergies Allergen (clinical drug ingredient) Drug/Non Drug Allergy documented on EMR Reaction Allergy Type Onset Date Status varenicline Chantix Unknown Drug Allergy Activ e Results Component Value Reference Range Notes MR ankle RT wo con (Not yet reviewed by provider) Interpretation: Performing Lab: Notes/Report: Source Facility: [place] [address] Magnetic Resonance Report Signed Patient: ALEXANDRA CERVANTES MR#: [id number] : 1950 Acct:[id number] Age/Sex: 73 / F ADM Date: 08/19/23 Loc: MRI Attending Dr: Amy Gage Ordering Physician: Amy Gage Date of Service: 08/19/23 Procedure(s): MR ankle RT wo con Accession Number(s): [id number] cc: Danyell Kelly M.D.; Amy Gage [address] [address] Patient Name: ALEXANDRA CERVANTES MRN: [id number] date: 1950 Sex: F Assigned Patient Location: MRI Current Patient Location: Accession/Order Number: [id number] Exam Date: 08/19/2023 09:03 Report Date: 08/20/2023 13:01 At the request of: AMY GAGE Procedure: MR ankle RT wo con EXAM: MR ankle RT wo con HISTORY: Right Peroneal Tendonitis COMPARISON: 06/04/2023 TECHNIQUE: MRI images obtained with multiple sequences. MRI of the right ankle without contrast. Sequences obtained by standard department protocol. FINDINGS: Mild degeneration of the second, third and fourth tarsometatarsal joints. No significant degeneration of the ankle joint or subtalar joint. Achilles tendon and plantar fascia are intact. No ankle joint effusion. No acute fracture or dislocation. Extensor, flexor and peroneal tendons are intact. Anterior and posterior syndesmotic ligaments are intact. Anterior talofibular, posterior talofibular and calcaneofibular ligaments are intact. Deltoid ligament fibers are intact. No abnormal signal of the plantar musculature. MR/MR ankle RT wo con IMPRESSION: 1. No acute tendinous or ligamentous abnormality. 2. Achilles tendon is intact. 3. Mild degeneration at the second through fourth tarsometatarsal joints. Electronically authenticated by: JACQUES BUSTILLO Date: 08/20/2023 13:01 Dictated By: Jacques Bustillo M.D. Signed By: 08/20/23 1304 DD/ 1301 TD/TT: Relief Map Modeler: [place] [address] Magnetic Resonance Report Signed Patient: SARAH CERVANTES MR#: [id number] : 1950 Acct:[id number] Age/Sex: 73 / F ADM Date: 08/19/23 Loc: MRI Attending Dr: Amy Gage Ordering Physician: Aym Gage Date of Service: 08/19/23 Procedure(s): MR keli riggs RT wo con Accession Number(s): [id number] cc: Danyell Kelly; Amy Gage [address] [address] Patient Name: ALEXANDRA CERVANTES MRN: [id number] date: 1950 Sex: F Assigned Patient Location: MRI Current Patient Location: Accession/Order Numb er: [id number] Exam Date: 08/19/2023 09:03 Report Date: 08/20/2023 13:01 At the request of: AMY GAGE Procedure: MR ankle RT wo con EXAM: MR ankle RT wo con HISTORY: Right Peron eal Tendonitis COMPARISON: 06/04/2023 TECHNIQUE: MRI image s obtained with multiple sequences. MRI of the right ankle without contrast. Se quences obtained by standard department protocol. FINDINGS: Mild degeneration of the second, third and fourth tarsometatarsal joints. No significant degen eration of the ankle joint or subtalar joint. Achilles tendon and plantar fascia are intact. No ankle joint effusion. No acute fracture or dislocation. Extensor, flexor and peroneal tendons are intact. Anterior and posteri or syndesmotic ligaments are intact. Anterior talofibular, posterior talofibula r and calcaneofibular ligaments are intact. Deltoid ligament fib ers are intact. No abnormal signal o f the plantar musculature. M R/MR ankle RT wo con IMPRESSION: 1. No acute tendinou s or ligamentous abnormality. 2. Achilles tendon is intact. 3. Mild degeneration at the second through fourth tarsometatarsal joints. Electronically authe nticated by: JACQUES BUSTILLO Date: 08/20/2023 13:01 Dictated By: Jacques Bustillo M.D. Signed By: 08/20/23 1304 DD/ 1301 TD/TT: Relief Map Modeler: Reason For Referral Reason Pain Management TB Diagnosis 1 Radiculopathy, lumba r region (M54.16) Referral Organization [facility] (PODIATRY) Referring Provider First Name Seymour Referring Provider Last Name [facility] Referring Provider Speciality Podiatry Referred Provider Specialty Pain Medicin e Referral Priority Routine Reason referral to Dr. Sherif neal Diagnosis 1 Left knee pain (M25. 562) Referral Organization [facility] (PODIATRY) Referring Provider First Name Seymour Referring Provider Last Name [facility] Referring Provider Speciality Podiatry Referred Provider Specialty Orthopedic S urgery Referral Priority Routine Medications Medication SIG (Take, Route, Frequency, Duration) Notes Start Date End Date Status Advil 200 MG 1 tablet with food o r milk as needed Orally Three times a day Active Aleve 220 MG 1 tablet with food o r milk as needed Orally every 12 hrs Active Levothyroxine Sodium 75 MCG 1 tablet in the morning on an empty stomach Orally Once a day Active Omeprazole 20 MG 1 capsule 30 minutes before morning meal Orally Once a day Active ALPRAZolam 0.5 MG 1 tablet Orally Twic e a day Active Escitalopram Oxalate 20 MG 1 tablet Oral ly Once a day Active Simvastatin 40 MG 1 tablet in the even ing Orally Once a day Active sulfaSALAzine 500 MG 1 tablet Orally Onc e a day Active Social History Tobacco Use: Social History Observation Description Date Details (start date - stop date) Former Smoker NA - NA Tobacco Use/Smoking Question Answer Notes Patient is a former smoker Problems Problem Type SNOMED Code ICD Code Onset Dates Problem Status W/U Status Risk Notes Problem 0769594 Tinea pedis (B35.3) Active confirmed Problem 7882488834609160 Primary osteoarthrit is, right ankle and foot (M19.071) Active confirmed Problem 755976314181598 Pain in right foot (M79.671) Active confirmed Problem Right ankle pain (M25.571) Active confirmed Vital Signs Heart Rate 84 /min 08/21/2023 Temperature 97.2 degrees Fahrenheit 08/21/2023 Respiratory Rate 16 /min 08/21/2023 Height 55.5 in 08/21/2023 Weight 160 lbs 08/21/2023 BMI 36.52 kg/m2 08/21/2023 Encounters Encounter Location Date Provider Diagnosis [facility] (PODIATRY) [address] [place] [address] [place] [address] 08/21/[address] [facility] Right ankle pain M25.571 and Radiculopathy, lumbar [...] region (ICD-10 - M54.16) Plan Of Treatment Pending Test Test Name Order Date MR ankle RT wo con 08/20/2023 Insurance Providers Payer Name Payer Address Payer Phone Subscriber Number Group Number Insured Name Patient Relationship to Insured Coverage Start Date Coverage End Date MEDICARE [place] [address] [phone] [id number] Alexandra Cervantes Self - patient is the insured [facility] [employer] [address] [address] [place] [address] [id number] Alexandra Cervantes Self - patient is the insured Medical (General) History Medical History History ICD Code GERD (gastroesophageal reflux disease) K 21.9 Hypothyroid E03.9 Depression F32.9 Surgical History Surgery Date(Month/Year) appendectomy tubal ligation right carpal tunnel right 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
--- OUTSIDE RECORDS SUMMARY | 2024-08-10 08:00 | XMS_ITS | Patient Health Record ---
Author Organization [facility] Address [address] [place] [address] Care Team Providers Care Chief Of Surgery Name Role Phone Danyell Kelly M.D. Primary Care Provider Bucky Valente Godinez Unavailable [phone] Allergies No Known Allergies Reason For Referral No Information Medications Medication SIG (Take, Route, Fr equency, Duration) Notes Start Date End Date Status ALPRAZolam Active levothyroxine Active escitalopram Active simvastatin Active omeprazole Active Eye Multivitamin Act dimitri diclofenac sodium 75 mg 1 tab(s) orally 2 times a day for 30 day(s) 05/08/2023 Active Calcium 600+D Active diclofenac sodium 75 mg 1 tab(s) orally 2 times a day for 30 day(s) 02/18/2023 Active Glucosamine Chondroitin Active multivitamin Active Social History Tobacco Use: Social History Observation Description Date Details (start date - stop date) Current Smoker NA - NA Smoking History Question Answer Notes Smoking Status Current Smoker Problems Problem Type SNOMED Code ICD Code Onset Dates Problem Status W/U Status Risk Notes Problem 162635069486610 Primary osteoarthritis of left knee (M17.12) Active confirmed Problem 6771548926450954 Other chondrocalcinosis , left knee (M11.262) Active confirmed Problem 315940044 Bilateral primar y osteoarthritis of knee (M17.0) Active confirmed Problem 419990809302775 Primary osteoarthritis of right knee (M17.11) Active confirmed Problem 452157148 NSAID long-term use (Z79.1) Active confirmed Plan Of Treatment No Information Insurance Providers Payer Name Payer Address Payer Phone Subscriber Number Group Number Insured Name Patient Relationship to Insured Coverage Start Date Coverage End Date Medicare [address] [phone] [id number] ALEXANDRA GARDNER Self - patient is the insured [employer] Senior Supplemental Insurance [address] [address] [facility] [place], [place] [phone] [id number] ALEXANDRA GARDNER Self - patient is the insured Medical (General) History Medical History History ICD Code Depression Anxiety Sleep apnea Surgical History Surgery Date(Month/Year) thyroid 3 yrs ago
--- OUTSIDE RECORDS SUMMARY | 2024-08-10 08:00 | XMS_ITS | Encounter Summary ---
Author Organization [facility] Address [address] [place] [address] Care Team Providers Care Buzzle Buffer Name Role Phone Danyell Kelly MD Primary Care Provider [phone] Danyell Kelly MD Primary Care Provider [phone] Encounter Details Date Type Department Care Team (Late Contact Info) Description 09/10/2023 Orders Only [facility] [address] [facility] [address] [place] [address] Adali Giordano NP Internal derangement of left knee Social History [...] Office Visit [facility] [address] [facility] 110 [place] [address] Montana Veras PA [address] [facility] 150 [place] [address] documented as of this encounter Procedures Procedure Name Priority Date/Time Associated Diagnosis Comments MR KNEE LEFT WO IV CONTRAST Routine 09/10/2023 8:34 AM EDT Internal derangement of left knee documented in this encounter Results * MR knee left wo IV contrast (09/10/2023 8:34 AM EDT) Adali Giordano DISTRICT RESOURCE OFFICER IMG MRI PROCEDURES Final Resul t documented in this encounter Visit Diagnoses Diagnosis Internal derangement of left knee documented in this encounter Care Teams Buzzle Buffer Relationship Specialty Start Date End Date Danyell Kelly MD PCP - General Family Medicine 08/26/23 07/15/24 Danyell Kelly MD [address] [place] [phone] PCP - General Family Medicine 07/16/24 documented as of this encounter
[2024-08-10 08:29] VITALS: BP 154/75; PULSE 79; TEMP 36.4; O2SAT 96
[2024-08-10 09:04] VITALS: BP 170/77; PULSE 73; O2SAT 94
[2024-08-10] MEDS: 0.9 % SODIUM CHLORIDE 10 ML SYRINGE - SALINE FLUSH INJ (09:04)
[2024-08-10] MEDS: BUPIVACAINE HCL 0.25% PF 25 MG/10 ML VIAL 2 ML INJ (09:05)
[2024-08-10] MEDS: IOHEXOL 240 MG/ML - 50 ML VIAL INJ (09:05)
[2024-08-10] MEDS: METHYLPREDNISOLONE ACETATE 80 MG/ML VIAL INJ (09:06)
[2024-08-10] MEDS: LIDOCAINE HCL 2% PF 100 MG/5 ML VIAL 2 ML INJ (09:06)
[2024-08-10 09:07] VITALS: BP 186/79; PULSE 72; O2SAT 93
--- NOTE | 2024-08-10 09:07 | P.ON_ITS ---
Date of procedure: 08/10/24 Pre-op diagnosis: Pain due to right sciatica Post-op diagnosis: same as pre-op Procedure: Procedure: Right sciatic nerve block Medications: Bupivacaine 0.25% 4cc, depomedrol 40mg The patient was seen and examined in the preoperative holding area.? The site was marked.? Informed consent was obtained and placed on the chart.? The patient was brought to the medical procedures unit and placed in the prone position when a timeout was completed verifying correct patient, procedure, site, positioning, and planned special equipment.? The area overlying the right femoral neck of the appropriate side was prepped and draped using aseptic equipment.? A 22-gauge, 6- inch Stimuplex needle was advanced through a skin wheal of 2% lidocaine, emitting 2 mA of current at 2 Hz.? The needle tip was advanced under fluoroscopic visualization until plantarflexion was achieved at which point Omnipaque dye was injected.? This showed adequate spread.? There was no evidence of neurovascular uptake.? The above-mentioned injectate was placed in two 2.5 mL aliquots preceded by negative aspiration without sequelae.? The needle was removed.? The insertion site was covered.? The patient was taken to the postprocedural recovery area where the patient was monitored for the appropriate length of time before being found suitable for discharge in the accompaniment of a responsible adult. Anesthesia: Local Surgeon: Zulay Cook Pathology: none sent Condition: stable Disposition: no change
== END 2024-08-10 09:11 | disposition home or self-care (01) ==
LOC: SURGOUT 07:58
PROVIDERS: PCP Family Medicine; Visit Provider Anesthesiology
DX: M54.31 Sciatica, right side (principal)
CPT/HCPCS: 64445; J0665; J1010; Q9966

== ENCOUNTER 2024-08-13 09:33 | Outpatient (OUT) | payer MEDICARE, OTHER, SELFPAY ==
--- NOTE | 2024-08-13 09:38 | MR_ITS ---
[address] [address] Patient Name: ALEXANDRA GARDNER MRN: [id number] date: 1950 Sex: F Assigned Patient Location: [facility] Current Patient Location: [facility] Accession/Order Number: [id number] Exam Date: 08/13/2024 13:19 Report Date: 08/13/2024 13:25 At the request of: GAMALIEL REEVES NP Procedure: MR lumbar spine wo con EXAMINATION: MRI LUMBAR SPINE WITHOUT IV CONTRAST CLINICAL HISTORY: Spinal stenosis, lumbar region with neurogenic claudication COMPARISON: MRI lumbar spine 09/17/2023 TECHNIQUE: Multiecho imaging was performed in the sagittal and axial planes without contrast administration. FINDINGS: Vertebral body heights appear maintained. Diffuse disc desiccation. Spinal cord terminates in normal position without abnormal cord signal. No paraspinal mass. Visualized retroperitoneum demonstrates no acute findings. Cholelithiasis. At T12-L1: 3 mm retrolisthesis. Diffuse broad-based disc bulge is present. Facet joint degenerative changes. No significant canal stenosis. No significant neural foraminal stenosis. At L1-L2: 3 mm retrolisthesis. Endplate irregularity with Modic changes. Diffuse broad-based disc bulge is present with facet joint degenerative changes. No significant canal stenosis. Moderate bilateral neural foraminal stenosis. At L2-L3: Diffuse broad-based disc bulge with facet joint degenerative changes causing mild canal and bilateral neural foraminal stenosis. At L3-L4: No posterior disc pathology. Facet joint degenerative changes. No significant canal or neural foraminal stenosis. At L4-L5: 3 mm of anterolisthesis. Diffuse broad-based disc bulge is present with facet joint degenerative changes. No significant canal stenosis. Moderate bilateral neural foraminal stenosis. At L5-S1: 3 mm of anterolisthesis. Facet joint degenerative changes. No significant canal stenosis. Moderate bilateral neural foraminal stenosis. MR/MR lumbar spine wo con IMPRESSION: Multilevel degenerative disease as described above without significant canal stenosis. No significant change in spine findings compared to the prior study from 2023. Impression dictated by: Pa Osullivan Jr. DEttaOEtta 08/13/2024 1:25 PM Dictation Location: [place] [address] Electronically authenticated by: [id number] Y Date: 08/13/2024 13:25
== END 2024-08-13 09:34 | disposition home or self-care (01) ==
LOC: MRI 09:33
PROVIDERS: PCP Family Medicine; Visit Provider Nurse Practitioner
DX: M48.062 Spinal stenosis, lumbar region with neurogenic claudication (principal); M51.369 Other intervertebral disc degeneration, lumbar region without mention of lumbar back pain or lower extremity pain
CPT/HCPCS: 72148

== ENCOUNTER 2024-08-19 08:35 | Outpatient (OUT) | payer MEDICARE, OTHER, SELFPAY ==
--- OUTSIDE RECORDS SUMMARY | 2023-06-04 07:30 | XMS_ITS ---
Author Organization [facility] in [place] Address [address] [place] [address] Care Team Providers Care Retrieval Specialist Name Role Phone Danyell Kelly Primary Care Provider Seymour Zavala Unavailable [phone] Allergies Allergen (clinical drug ingredient) Drug/Non Drug [...] right leg (M76.71) Referral Organization [facility] (PODIATRY) Referring Provider First Name Seymour Referring [...] Location Date Provider Diagnosis [facility] (PODIATRY) [address] [place] [address] [place] [address] [facility] in [facility] M79.671 ; Peroneal [...] -- see order for details, Physical Therapy [facility] Progress Notes * Tisha CERVANTESDOB:1950 (73 yo F)Acc No.[id number]:06/04/2023 Follow Up Patient: Tisha CONSTANTINO Provider: Will Johnson DPM, MS :1950 A ge:73 Y S ex:Female Date:06/04/2023 Address:[address] [place], [place] [id number] Pcp:Danyell Kelly Check In:11:15 AM ESTCheck O ut:12:06 PM EST Subjective: * Chief Complaints: * R T foot pain * HPI: G eneral: pt is having a lot of pain in her right foot and ankle. The pain started in [facility]. She has been seeing [facility] due to arthritis in her knee and [...] M usculoskeletal: Bone/Joint Symptoms d enies. C snf Pain d enies.?Leg cramps d enies. N [...] 06/04/2023 Generated for Charleen milligan/Faxing/eTransmitting on: 0 08/19/2024 08:38 AM EDT History and Physical Notes * [...] Referred Provider Not es 06/04/2023 Seymour Johnson [facility], Physical Therapy e valuate and treat -- see order for details
--- OUTSIDE RECORDS SUMMARY | 2023-08-06 10:45 | XMS_ITS ---
Author Organization [facility] in [place] Address [address] [place] [address] Care Team Providers Care Budget Engineer Name Role Phone Danyell Kelly Primary Care Provider Seymour Zavala [phone] Allergies Allergen (clinical drug ingredient) Drug/Non Drug [...] Encounters Encounter Location Date Provider Diagnosis [facility] (PODIATRY) [address] [place] [address] [place] [address] 08/06/2023 Seymour Johnson Peroneal tendinitis, right leg [...] Notes * Tisha CERVANTESDOB:1950 (73 yo F)Acc No.[id number]:08/06/2023 Follow Up Patient: Tisha CONSTANTINO Provider: Will Johnson DPM, MS :1950 A ge:73 Y S ex:Female Date:08/06/2023 Address:[address] [place] [address], [place], [phone] Pcp:Danyell Kelly Check In:02:20 PM ESTCheck O [...] M usculoskeletal: Bone/Joint Symptoms d enies. C chcf Pain d enies.?Leg cramps d enies. N [...] 08/06/2023 Generated for Charleen milligan/Brant/eTransmitting on: 0 08/19/2024 08:38 AM EDT History [...]
--- OUTSIDE RECORDS SUMMARY | 2023-08-21 05:45 | XMS_ITS ---
Author Organization [facility] [place] Address [address] [place] [address] Care Team Providers Care Builder Beam Name Role Phone Danyell Kelly Primary Care Provider Seymour Zavala Unavailable [phone] Allergies Allergen (clinical drug ingredient) Drug/Non Drug Allergy documented on EMR Reaction Allergy Type Onset Date Status varenicline Chantix Unknown Drug Allergy Activ e Reason For Referral Reason Pain Management [facility] Diagnosis 1 Radiculopathy, lumba r region (M54.16) Referral Organization [facility] (PODIATRY) Referring Provider First Name Seymour Referring Provider Last Name Alex Referring Provider Speciality Podiatry Referred Provider Specialty Pain Medicin e Referral Priority Routine Reason referral to Dr. Sherif neal Diagnosis 1 Left knee pain (M25. 562) Referral Organization [facility] (PODIATRY) Referring Provider First Name Seymour [...] Encounters Encounter Location Date Provider Diagnosis [facility] (PODI[facility]) [address] [place] [address] [place] [id number] 08/21/2023 Peter Mauriander Right ankle pain M25.571 [...] Date Details 08/23/2023 08/23/2023, Pain Man agement [facility] 08/23/2023 08/23/2023, referral to Dr. Curran Progress Notes * Tisha CERVANTESDOB:1950 (73 yo F)Acc No.[id number]:08/21/2023 Follow Up Patient: Tisha CONSTANTINO Provider: Will Johnson DPM, MS :1950 A ge:73 Y S ex:Female Date:08/21/2023 Address:[address] [place], [place] [address] , [place], [id number] Pcp:Danyell Kelly Check In:09:31 AM ESTCheck O [...] M usculoskeletal: Bone/Joint Symptoms d enies. C intermediate Pain d enies.?Leg cramps d enies. N [...] lumbar region Referral To:Pain Medicine Reason:Pain Management [facility] 3. O thers Referral To:Orthopedic Surgery Reason:referral to Dr. Curran * Procedure Codes: * * Sign off status: Completed Visit Status: C HK (Check Out) true * Provider: Will Johnson DPM, MS Date: 0 08/21/2023 Generated for Charleen milligan/Brant/Augustusitting on: 08/19/2024 08:38 AM EDT History and Physical [...]
--- OUTSIDE RECORDS SUMMARY | 2024-08-19 08:38 | XMS_ITS | Encounter Summary ---
Author Organization [facility] Address [address] [place] [address] Care Team Providers Care Hotel Or Motel Room Service Supervisor Name Role Phone Danyell Kelly MD Primary Care Provider [phone] Danyell eKlly MD Primary Care Provider [phone] Encounter Details Date Type Department Care Team (Late Contact Info) Description 03/18/2024 Orders Only [facility] [address] [facility] [address] [place] [phone] Teressa Elizondo MA Internal derangement of left [...] Office Visit [facility] [address] [facility] 110 [place] [address] Montana Veras PA [address] [facility] 150 [place] [address] documented as of this encounter Procedures Procedure Name Priority Date/Time Associated Diagnosis Comments MR KNEE LEFT WO IV CONTRAST Routine 03/18/2024 8:08 AM EST Internal derangement of left knee documented in this encounter Results * MR knee left wo IV contrast (03/18/2024 8:08 AM EST) us Adali Giordano [facility] IMG MRI PROCEDURES Final Resul t documented in this encounter Visit Diagnoses Diagnosis Internal derangement of left knee documented in this encounter Care Teams Hotel Or Motel Room Service Supervisor Relationship Specialty Start Date End Date Danyell Kelly MD PCP - General Family Medicine 08/26/23 07/15/24 Danyell Kelly MD [address] [place] [phone] PCP - General Family Medicine 07/16/24 documented as of this encounter
--- OUTSIDE RECORDS SUMMARY | 2024-08-19 08:38 | XMS_ITS | Encounter Summary ---
Author Organization [facility] Address [address] [place] [address] Care Team Providers Care Activity Aide Name Role Phone Danyell Kelly MD Primary Care Provider [phone] Danyell Kelly MD Primary Care Provider [phone] Encounter Details Date Type Department Care Team (Late Contact Info) Description 09/10/2023 Orders Only [facility] [address] [facility] [address] [place] [address] Adali Giordano NP Internal derangement of left [...] Office Visit [facility] [address] [facility] 110 [place] [address] Montana Veras PA [address] [facility] 150 [place] [address] documented as of this encounter Procedures Procedure Name Priority Date/Time Associated Diagnosis Comments MR KNEE LEFT WO IV CONTRAST Routine 09/10/2023 8:34 AM EDT Internal derangement of left knee documented in this encounter Results * MR knee left wo IV contrast (09/10/2023 8:34 AM EDT) Adali Giordano REGISTERED DIETETIC TECHNICIAN IMG MRI PROCEDURES Final Resul t documented in this encounter Visit Diagnoses Diagnosis Internal derangement of left knee documented in this encounter Care Teams Activity Aide Relationship Specialty Start Date End Date Danyell Kelly MD PCP - General Family Medicine 08/26/23 07/15/24 Danyell Kelly MD [address] [place] [phone] PCP - General Family Medicine 07/16/24 documented as of this encounter
--- OUTSIDE RECORDS SUMMARY | 2024-08-19 08:38 | XMS_ITS | Encounter Summary ---
Author Organization [facility] Address [address] [place] [address] Care Team Providers Care Redipper Name Role Phone Danyell Kelly MD Primary Care Provider [phone] Danyell Kelly MD Primary Care Provider [phone] Encounter Details Date Type Department Care Team ([facility] Contact Info) Description 06/24/2024 Results Follow-Up [facility] [address] [place] [phone] Montana Veras PA [address] [facility] 150 [place], [place] [phone] Social History Tobacco Use Types Packs/Day Years [...] Upcoming Encounters Date Type Department Care Team ([facility] Contact Info) Description 08/20/2024 9:30 AM EDT Office Visit [facility] [address] [facility] [address] [place] [address] Montana Veras PA [address] [facility] 150 [place] [address] documented as of this encounter Visit Diagnoses Not on filedocumented in this encounter Care Teams Redipper Relationship Specialty Start Date End Date Danyell Kelly MD PCP - General Family Medicine 08/26/23 07/15/24 Danyell Kelly MD [address] [place] [phone] PCP - General Family Medicine 07/16/24 documented as of this encounter
--- OUTSIDE RECORDS SUMMARY | 2024-08-19 08:38 | XMS_ITS | Patient Health Record ---
Author Organization [facility] Address [address] [place] [address] Care Team Providers Care Gis Professor Name Role Phone Danyell Kelly Primary Care Provider Seymour Zavala [phone] Allergies Allergen (clinical drug ingredient) Drug/Non Drug Allergy documented on EMR Reaction Allergy Type Onset Date Status varenicline Chantix Unknown Drug Allergy Activ e Results Component Value Reference Range Notes MR ankle RT wo con (Not yet reviewed by provider) Interpretation: Performing Lab: Notes/Report: Source Facility: [place] [address] Magnetic Resonance Report Signed Patient: ALEXANDRA CERVANTES MR#: [id number] : 1950 Acct:[id number] Age/Sex: 73 / F ADM Date: 08/19/23 Loc: MRI Attending Dr: Amy Gage Ordering Physician: Amy Gage Date of Service: 08/19/23 Procedure(s): MR ankle RT wo con Accession Number(s): [id number] cc: Danyell Kelly M.D.; Amy Gage [address] [address] Patient Name: ALEXANDRA CERVANTES MRN: [id number] date: 1950 Sex: F Assigned Patient Location: MRI Current Patient Location: Accession/Order Number: [id number] Exam Date: 08/19/2023 09:03 Report Date: 08/20/2023 [...] Signed By: 08/20/23 1304 DD/ 1301 TD/TT: [employer] Architect: [place] [address] Magnetic Resonance Report Signed Patient: SARAH CERVANTES MR#: [id number] : 1950 Acct:[id number] Age/Sex: 73 / F ADM Date: 08/19/23 Loc: MRI Attending Dr: Amy Gage Ordering Physician: Amy Gage Date of Service: 08/19/23 Procedure(s): MR keli riggs RT wo con Accession Number(s): [id number] cc: Danyell Kelly; Amy Gage [address] [address] Patient Name: ALEXANDRA CERVANTES MRN: [id number] date: 1950 Sex: F Assigned Patient Location: MRI Current Patient Location: Accession/Order Numb er: [id number] Exam Date: 08/19/2023 09:03 Report Date: 08/20/2023 [...] Signed By: 08/20/23 1304 DD/ 1301 TD/TT: [employer] Architect: Reason For Referral Reason Pain Management TB Diagnosis 1 Radiculopathy, lumba r region (M54.16) Referral Organization [facility] (PODIATRY) Referring Provider First Name Seymour Referring Provider Last Name [facility] Referring Provider Speciality Podiatry Referred Provider Specialty Pain Medicin e Referral Priority Routine Reason referral to Dr. Sherif neal Diagnosis 1 Left knee pain (M25. 562) Referral Organization [facility] (PODIATRY) Referring Provider First Name Seymour Referring Provider Last Name [facility] Referring Provider Speciality Podiatry Referred Provider Specialty [...] Problem Status W/U Status Risk Notes Problem 3247165 Tinea pedis (B35.3) Active confirmed Problem [id number] Primary osteoarthrit is, right ankle and foot (M19.071) Active confirmed Problem 638254460021203 Pain in right foot (M79.671) Active confirmed Problem Right ankle pain (M25.571) Active confirmed Vital Signs Heart Rate 84 /min 08/21/2023 Temperature 97.2 degrees Fahrenheit 08/21/2023 Respiratory Rate 16 /min 08/21/2023 Height 55.5 in 08/21/2023 Weight 160 lbs 08/21/2023 BMI 36.52 kg/m2 08/21/2023 Encounters Encounter Location Date Provider Diagnosis [facility] (PODIATRY) [address] [place] [address] [place] [address] 08/21/2023 Seymour [facility] Right ankle pain M25.571 and Radiculopathy, lumbar [...] MEDICARE [place] [address] [address] [id number] Alexandra Cervantes Self - patient is the insured [facility] [employer] INSURANCE [address] [address] [place] [address] [id number] Alexandra Cervantes Self - patient is the insured Medical (General) History Medical History History ICD Code GERD (gastroesophageal reflux disease) K 21.9 Hypothyroid E03.9 Depression F32.9 Surgical History Surgery Date(Month/Year) appendectomy tubal ligation right carpal tunnel right 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
--- OUTSIDE RECORDS SUMMARY | 2024-08-19 08:38 | XMS_ITS | Clinical Summary ---
Author Organization [facility] Address [address] [place] [address] Care Team Providers Care Spinning Frame Cleaner Name Role Phone Danyell Kelly MD Primary Care Provider [phone] Allergies Active Allergy Reactions Criticality Noted Date [...] Office Visit [facility] [address] [place] [phone] [place] Veras, PA S/P right knee arthroscopy (Primary Dx) 07/22/2024 Bamboo flowsheet [facility] [address] [place] [phone] [place] Veras PA 07/22/2024 Travel 07/03/2024 Refill [place] [place] [phone] Tenzin Wilson, ROD GREASER Acute medial meniscus tear of right knee, initial encounter (Primary Dx) 06/30/2024 9:30 AM EDT Evaluation [facility] [address] [place] [address] Sofia Bull, PT Pre-op examination (Primary Dx); Localized osteoarthritis of right knee 06/30/2024 Plan of Care Documentation [facility] [address] [place] [address] 06/30/2024 Bamboo flowsheet [facility] [address] [place] [address] Sofia Bull, PT 06/30/2024 Travel 06/24/2024 Telephone [facility] [address] [place] [phone] Jr. Raphael Guerrero DO Walker 06/24/2024 Results Follow-Up [facility] [place] [phone] Montana Veras PA 06/24/2024 Clinisync Result Encounter [facility] Unsolicited [place] Veras PA 06/23/2024 1:30 PM EDT Office Visit [facility] [address] [place] [address] Montana Veras PA Pre-op examination (Primary Dx) 06/23/2024 Bamboo flowsheet [facility] [address] [place] [address] Montana Veras PA 06/23/2024 Travel from Last 3 Months Immunizations Immunization [...] [facility] [address] [place] [address] Montana Veras PA [address] [place] [address] Health Maintenance Due Date Last Done Comments Influenza Vaccine (#1) 2024 4, 11/07/2022, 11/21/2021, Additional history exists Pneumococcal Vaccine: 65+ Years Completed 11/20/2017, 11/14/2017, 10/24/2016, Additional history exists Colonoscopy Discontinued 01/15/2024, 02/16/2020 [...] 0.55 - 1.02 mg/dL [facility] TB[facility] EGFR-AF NIGERIEN >60 >=60 mL/min/1.7 3m 2 TB[facility] EGFR-NON AF NIGERIEN >60 >=60 mL/min/1.7 3m 2 [facility] BUN CREATININE RATIO 14.7 TBH CALCIUM 9.4 8.5 - 10.1 mg/dL [facility] 06/24/2024 11:4 7 AM EDT 06/24/2024 11:48 AM EDT Narrative [facility] - 06/24/2024 12:27 PM EDT us [place] [facility] Final Result [facility] from Last 3 Months Insurance MEDICARE AET Care Teams Spinning Frame Cleaner Relationship Specialty Start Date End Date Danyell Kelly MD [address] [place] [phone] PCP - General Family Medicine 07/16/24
--- OUTSIDE RECORDS SUMMARY | 2024-08-19 08:39 | XMS_ITS | Patient Health Record ---
Author Organization [facility] Address [address] [place] [address] Care Team Providers Care Zoning Technician Name Role Phone Danyell Kelly M.D. Primary Care Provider Bucky Valente Godinez Unavailable [phone] Allergies No Known Allergies Reason For Referral [...] Problem Status W/U Status Risk Notes Problem [id number] Primary osteoarthritis of left knee (M17.12) Active confirmed Problem 2159742777969041 Other chondrocalcinosis , left knee (M11.262) Active confirmed Problem 850065187 Bilateral primar y osteoarthritis of knee (M17.0) Active confirmed Problem 912974035311567 Primary osteoarthritis of right knee (M17.11) Active confirmed Problem 201652211 NSAID long-term use (Z79.1) Active confirmed Plan Of Treatment No Information Insurance Providers Payer Name Payer Address Payer Phone Subscriber Number Group Number Insured Name Patient Relationship to Insured Coverage Start Date Coverage End Date Medicare [address] [phone] [id number] ALEXANDRA GARDNER Self - patient is the insured [employer] Senior Supplemental Insurance [address] [address] [facility] [place], [place] [phone] [id number] ALEXANDRA GARDNER Self - patient is the insured Medical (General) History Medical History History ICD Code Depression Anxiety Sleep apnea Surgical History Surgery Date(Month/Year) thyroid 3 yrs ago
--- NOTE | 2024-08-19 08:49 | PM.CN ---
Consult Note: HPI Data of Consult Patient: known to practice within the last 3 years Consult date: 08/19/24 Requesting Physician: Renee Bernal NP Primary Care Provider: Danyell Kelly MD Consult Narrative Reason for consult: right foot pain Narrative: Tisha guerra pleasant 74 year old female presents for evaluation of chronic right foot pain secondary to lumbar radiculopathy, sciatica, lumbar stenosis, and lumbar ddd. Patient has failed to benefit from >6 weeks of PT, tylenol, nsaids, and topical voltaren cream. previously failed zonegran and baclofen. Patient currently utilizing aleve and tylenol PRN, as well as gabapentin 100mg BID with minimal relief. Pain today 4-5/10 increasing with standing, walking, housework and activity. pt reports prior right L4-5 L5-S1 TFESI helped for less than 1 month, recently underwent right sciatic nerve block with no improvement. cc:: CC: Renee Bernal NP Review of Systems ROS Status of ROS 10 or more systems reviewed and unremarkable except as noted in history and below Musculoskeletal Reports: extremity pain PFSH PFSH Medical History (Updated 08/05/24 @ 11:19 by Renee Bernal NP) Hypothyroid ?E03.9 - Hypothyroidism, unspecified (ICD-10) Acid reflux ?K21.9 - Gastro-esophageal reflux disease without esophagitis (ICD-10) Tumor, thyroid ?D49.7 - Neoplasm of unspecified behavior of endocrine glands and other parts of nervous system (ICD-10) Carpal tunnel syndrome ?G56.00 - Carpal tunnel syndrome, unspecified upper limb (ICD-10) Sleep apnea ?G47.30 - Sleep apnea, unspecified (ICD-10) Surgical History History of tubal ligation ?Z98.51 - Tubal ligation status (ICD-10) History of appendectomy ?Z90.49 - Acquired absence of other specified parts of digestive tract (ICD-10) History of carpal tunnel release ?Z98.890 - Other specified postprocedural states (ICD-10) Social History Little interest or pleasure in doing things: not at all Feeling down, depressed, or hopeless: not at all Meds Home Medications and Allergies Home Medications ?Medication ?Instructions ?Recorded ?Confirmed ?Type alprazolam 0.5 mg tablet 0.5 mg PO DAILY 09/10/23 08/10/24 History escitalopram oxalate 20 mg tablet 20 mg PO DAILY 09/10/23 08/10/24 History ibuprofen 400 mg tablet 400 mg PO TID 09/10/23 08/10/24 History levothyroxine 75 mcg tablet 75 mcg PO DAILY 09/10/23 08/10/24 History omeprazole 40 mg capsule,delayed 40 mg PO DAILY 09/10/23 08/10/24 History release simvastatin 40 mg tablet 40 mg PO DAILY 09/10/23 08/10/24 History sulfasalazine 500 mg tablet 0.5 g PO DAILY 09/10/23 08/10/24 History magnesium oxide 400 mg PO DAILY #7 caps 11/29/23 08/10/24 Rx gabapentin 100 mg capsule 100 mg PO BID #60 caps 08/05/24 08/10/24 Rx Allergies Allergy/AdvReac Type Severity Reaction Status Date / Time No Known Drug Allergies Allergy Verified 08/10/24 08:21 Exam Constitutional Documenting provider has reviewed patient's vital signs: yes Common normals: no apparent distress, oriented x3, healthy appearing, alert and well nourished General appearance: cooperative HENMT Common normals: normocephalic, hearing grossly normal bilaterally and moist oral mucous membranes Head and scalp: normocephalic Eye Common normals: PERRL Pupil: PERRL Neck & C-Spine Common normals: full ROM General: normal visual inspection Chest Common normals: inspection of chest normal Respiratory Common normals: normal respiratory effort, no retractions and no use of accessory muscles Back & Pelvis Lumbar spine/lower back: ROM limited, pain with ROM and straight leg raise positive right Sacroiliac joints: SI joints normal Other: positive facet loading strength 5/5 in BLE altered sensation to right L5,S1 Neuro Common normals: oriented x3 Sensorium/orientation: alert Motor exam: strength 5/5 throughout and no movement abnormalities noted Psych Common normals: mental status grossly normal, thought process normal, cooperative, affect normal, speech normal and activity/motor behavior normal Speech: normal speech Thought process: normal thought process Results Imaging lumbar MRI : Attestation: I have reviewed the pertinent imaging results. Radiologist's impression: FINDINGS: Vertebral body heights appear maintained. Diffuse disc desiccation. Spinal cord terminates in normal position without abnormal cord signal. No paraspinal mass. Visualized retroperitoneum demonstrates no acute findings. Cholelithiasis. At T12-L1: 3 mm retrolisthesis. Diffuse broad-based disc bulge is present. Facet joint degenerative changes. No significant canal stenosis. No significant neural foraminal stenosis. At L1-L2: 3 mm retrolisthesis. Endplate irregularity with Modic changes. Diffuse broad-based disc bulge is present with facet joint degenerative changes. No significant canal stenosis. Moderate bilateral neural foraminal stenosis. At L2-L3: Diffuse broad-based disc bulge with facet joint degenerative changes causing mild canal and bilateral neural foraminal stenosis. At L3-L4: No posterior disc pathology. Facet joint degenerative changes. No significant canal or neural foraminal stenosis. At L4-L5: 3 mm of anterolisthesis. Diffuse broad-based disc bulge is present with facet joint degenerative changes. No significant canal stenosis. Moderate bilateral neural foraminal stenosis. At L5-S1: 3 mm of anterolisthesis. Facet joint degenerative changes. No significant canal stenosis. Moderate bilateral neural foraminal stenosis. Additional Findings Additional findings: If on a controlled substance or opioids, I have checked an OARRS report on this patient and there are no aberrancies noted in the prescribing history.??If on a controlled substance or opioid a drug screen was completed and reviewed within the last year, and if there has not been a drug screen completed we ordered one today to monitor higher risk, state monitored pain medication use. As part of providing excellent, safe, comprehensive care, the following was completed at our patient's visit: 1. A medication reconciliation and review to ensure accurate knowledge of current/active medications, including asking our patients to inform us about any olha-uhy-hswfmtj medications or herbal remedies/nutritional supplements/alternative remedies. 2. A review to specifically ensure our patients have had annual screening for screening for depression, screening for tobacco use, and screening for unhealthy alcohol use. For concerning screenings had a discussion with the patient, provided patient education, and recommended follow-up with primary care provider when appropriate. If patient noted with a risk of falling, they received education on strength, gait, and balance training to prevent future risk of falling. Portions of this note may have been carried over from the previous visit and updated as appropriate. Please note this office utilizes paper charting in addition to the electronic medical record. A list of current medications, vitals, and PMH is available there as the clinical staff outside of myself do not have access to [employer] charting during the clinic day operations. As part of providing quality comprehensive care the current medications, vitals, and PMH were reviewed in the paper chart. Assessment and Plan Assessment and Plan (1) Sciatica: Assessment and Plan: The patient has had over 3 months of moderate to severe right foot and low back pain with functional impairment and inadequate response to conservative care including NSAIDS (unless there are contraindication such as concurrent blood thinners), multiple oral or topical pain medications, and home exercise program/physical therapy.? Patient has completed >6 weeks of guided home exercise program and/or formal physical therapy program without relief of their symptoms.? The Oswestry Disability Index was completed, and the patient scored a 38%.? The patient noted the following:?? moderate to severe pain impacting ADLs, sitting, standing, walking, sleeping, social life, and travel (2) Lumbar radiculopathy: (3) Lumbar degenerative disc disease: (4) Spondylolisthesis: (5) Degenerative disc disease (DDD) of lumbar region with discogenic back pain and leg pain: Plan 74 year old female with chronic low back and right foot pain presents for evaluation. has failed to benefit from > 6 weeks of PT/HEP, heat, ice, tylenol, NSAIDs. lumbar MRI reviewed with pt, continues to declining scs trial for lumbar radiculopathy. will refer to [facility] for evaluation of surgical intervention, historically pt has declined but is now interested as shes not benefitting from interventional therapy. pt recently started on gabapentin 100mg bid with no improvement, denies side effects. increase gabapentin 300mg BID, risks vs benefits reviewed. f/u 1 month to evaluate medication changes
== END 2024-08-19 08:36 | disposition home or self-care (01) ==
LOC: PM 08:36
PROVIDERS: PCP Family Medicine; Visit Provider Nurse Practitioner
DX: M54.31 Sciatica, right side (principal); M54.16 Radiculopathy, lumbar region; M51.369 Other intervertebral disc degeneration, lumbar region without mention of lumbar back pain or lower extremity pain; M43.16 Spondylolisthesis, lumbar region
CPT/HCPCS: G0463

== ENCOUNTER 2024-09-16 08:33 | Outpatient (OUT) | payer MEDICARE, OTHER, SELFPAY ==
--- NOTE | 2024-09-16 09:02 | PM.CN ---
Consult Note: HPI Data of Consult Patient: known to practice within the last 3 years Consult date: 08/19/24 Requesting Physician: Renee Bernal NP Primary Care Provider: Danyell Kelly MD Consult Narrative Reason for consult: right foot pain Narrative: Tisha guerra pleasant 74 year old female presents for evaluation of chronic right foot pain secondary to lumbar radiculopathy, sciatica, lumbar stenosis, and lumbar ddd. Patient has failed to benefit from >6 weeks of PT, tylenol, nsaids, and topical voltaren cream. previously failed zonegran and baclofen. Patient currently utilizing aleve and tylenol PRN, as well as gabapentin 600mg BID with minimal relief. Pain today 5/10 increasing with standing, walking, housework and activity. pt reports prior right L4-5 L5-S1 TFESI helped for less than 1 month at initial f/u she was noting 95% improvement, recently underwent right sciatic nerve block with no improvement. denies side effects with current medications. continues to decline scs trial as she does not want to go 1 week without showering. cc:: CC: Renee Bernal NP Review of Systems ROS Status of ROS 10 or more systems reviewed and unremarkable except as noted in history and below Musculoskeletal Reports: extremity pain PFSH PFSH Medical History (Updated 08/05/24 @ 11:19 by Renee Bernal NP) Hypothyroid ?E03.9 - Hypothyroidism, unspecified (ICD-10) Acid reflux ?K21.9 - Gastro-esophageal reflux disease without esophagitis (ICD-10) Tumor, thyroid ?D49.7 - Neoplasm of unspecified behavior of endocrine glands and other parts of nervous system (ICD-10) Carpal tunnel syndrome ?G56.00 - Carpal tunnel syndrome, unspecified upper limb (ICD-10) Sleep apnea ?G47.30 - Sleep apnea, unspecified (ICD-10) Surgical History History of tubal ligation ?Z98.51 - Tubal ligation status (ICD-10) History of appendectomy ?Z90.49 - Acquired absence of other specified parts of digestive tract (ICD-10) History of carpal tunnel release ?Z98.890 - Other specified postprocedural states (ICD-10) Social History Little interest or pleasure in doing things: not at all Feeling down, depressed, or hopeless: not at all Meds Home Medications and Allergies Home Medications ?Medication ?Instructions ?Recorded ?Confirmed ?Type alprazolam 0.5 mg tablet 0.5 mg PO DAILY 09/10/23 08/10/24 History escitalopram oxalate 20 mg tablet 20 mg PO DAILY 09/10/23 08/10/24 History levothyroxine 75 mcg tablet 75 mcg PO DAILY 09/10/23 08/10/24 History omeprazole 40 mg capsule,delayed 40 mg PO DAILY 09/10/23 08/10/24 History release simvastatin 40 mg tablet 40 mg PO DAILY 09/10/23 08/10/24 History sulfasalazine 500 mg tablet 0.5 g PO DAILY 09/10/23 08/10/24 History magnesium oxide 400 mg PO DAILY #7 caps 11/29/23 08/10/24 Rx gabapentin 100 mg capsule 100 mg PO BID #60 caps 08/05/24 08/10/24 Rx naproxen sodium 220 mg capsule 220 mg PO BID PRN pain 08/19/24 08/19/24 History (Aleve) Allergies Allergy/AdvReac Type Severity Reaction Status Date / Time No Known Drug Allergies Allergy Verified 08/10/24 08:21 Exam Constitutional Documenting provider has reviewed patient's vital signs: yes Common normals: no apparent distress, oriented x3, healthy appearing, alert and well nourished General appearance: cooperative [facility] Common normals: normocephalic, hearing grossly normal bilaterally and moist oral mucous membranes Head and scalp: normocephalic Eye Common normals: PERRL Pupil: PERRL Neck & C-Spine Common normals: full ROM General: normal visual inspection Chest Common normals: inspection of chest normal Respiratory Common normals: normal respiratory effort, no retractions and no use of accessory muscles Back & Pelvis Lumbar spine/lower back: ROM limited, pain with ROM and straight leg raise positive right Sacroiliac joints: SI joints normal Other: positive facet loading strength 5/5 in BLE altered sensation to right L5,S1 Neuro Common normals: oriented x3 Sensorium/orientation: alert Motor exam: strength 5/5 throughout and no movement abnormalities noted Psych Common normals: mental status grossly normal, thought process normal, cooperative, affect normal, speech normal and activity/motor behavior normal Speech: normal speech Thought process: normal thought process Results Imaging lumbar MRI : Attestation: I have reviewed the pertinent imaging results. Radiologist's impression: FINDINGS: Vertebral body heights appear maintained. Diffuse disc desiccation. Spinal cord terminates in normal position without abnormal cord signal. No paraspinal mass. Visualized retroperitoneum demonstrates no acute findings. Cholelithiasis. At T12-L1: 3 mm retrolisthesis. Diffuse broad-based disc bulge is present. Facet joint degenerative changes. No significant canal stenosis. No significant neural foraminal stenosis. At L1-L2: 3 mm retrolisthesis. Endplate irregularity with Modic changes. Diffuse broad-based disc bulge is present with facet joint degenerative changes. No significant canal stenosis. Moderate bilateral neural foraminal stenosis. At L2-L3: Diffuse broad-based disc bulge with facet joint degenerative changes causing mild canal and bilateral neural foraminal stenosis. At L3-L4: No posterior disc pathology. Facet joint degenerative changes. No significant canal or neural foraminal stenosis. At L4-L5: 3 mm of anterolisthesis. Diffuse broad-based disc bulge is present with facet joint degenerative changes. No significant canal stenosis. Moderate bilateral neural foraminal stenosis. At L5-S1: 3 mm of anterolisthesis. Facet joint degenerative changes. No significant canal stenosis. Moderate bilateral neural foraminal stenosis. Additional Findings Additional findings: If on a controlled substance or opioids, I have checked an [place] report on this patient and there are no aberrancies noted in the prescribing history.??If on a controlled substance or opioid a drug screen was completed and reviewed within the last year, and if there has not been a drug screen completed we ordered one today to monitor higher risk, state monitored pain medication use. As part of providing excellent, safe, comprehensive care, the following was completed at our patient's visit: 1. A medication reconciliation and review to ensure accurate knowledge of current/active medications, including asking our patients to inform us about any [id number] medications or herbal remedies/nutritional supplements/alternative remedies. 2. A review to specifically ensure our patients have had annual screening for screening for depression, screening for tobacco use, and screening for unhealthy alcohol use. For concerning screenings had a discussion with the patient, provided patient education, and recommended follow-up with primary care provider when appropriate. If patient noted with a risk of falling, they received education on strength, gait, and balance training to prevent future risk of falling. Portions of this note may have been carried over from the previous visit and updated as appropriate. Please note this office utilizes paper charting in addition to the electronic medical record. A list of current medications, vitals, and PMH is available there as the clinical staff outside of myself do not have access to [employer] charting during the clinic day operations. As part of providing quality comprehensive care the current medications, vitals, and PMH were reviewed in the paper chart. Assessment and Plan Assessment and Plan (1) Sciatica: Assessment and Plan: The patient has had over 3 months of moderate to severe right foot and low back pain with functional impairment and inadequate response to conservative care including NSAIDS (unless there are contraindication such as concurrent blood thinners), multiple oral or topical pain medications, and home exercise program/physical therapy.? Patient has completed >6 weeks of guided home exercise program and/or formal physical therapy program without relief of their symptoms.? The Oswestry Disability Index was completed, and the patient scored a 49%.? The patient noted the following:?? moderate to severe pain impacting ADLs, sitting, standing, walking, sleeping, social life, and travel (2) Lumbar radiculopathy: (3) Lumbar degenerative disc disease: (4) Spondylolisthesis: (5) Degenerative disc disease (DDD) of lumbar region with discogenic back pain and leg pain: Plan 74 year old female with chronic low back and right foot pain presents for evaluation. has failed to benefit from > 6 weeks of PT/HEP, heat, ice, tylenol, NSAIDs. lumbar MRI reviewed with pt at prior visit and again today per pt request, continues to declining scs trial for lumbar radiculopathy. pending consultation NS for evaluation of surgical intervention, upcoming appointment 09/30/24. increase gabapentin 900mg TID, risks vs benefits reviewed. f/u 1 month to evaluate response to medication regimen. pt could consider podiatry referral but with significant response to prior lumbar TFESI i recommend a spinal cord stimulator trial.
== END 2024-09-16 08:34 | disposition home or self-care (01) ==
LOC: PM 08:33
PROVIDERS: PCP Family Medicine; Visit Provider Nurse Practitioner
DX: M54.31 Sciatica, right side (principal); M54.16 Radiculopathy, lumbar region; M51.369 Other intervertebral disc degeneration, lumbar region without mention of lumbar back pain or lower extremity pain; M43.16 Spondylolisthesis, lumbar region
CPT/HCPCS: G0463

== ENCOUNTER 2024-10-14 08:12 | Outpatient (OUT) | payer MEDICARE, OTHER, SELFPAY ==
--- OUTSIDE RECORDS SUMMARY | 2024-10-14 08:26 | XMS_ITS | CCD ---
Author Organization [facility] CliniSynv Care Team Providers Care Gluing Machine Operator Automatic Name Role Phone MD Cy Sears Attending Provider MD Laurita Morales Primary Care Provider [phone] LAURITA MORALES Primary Care Physician [phone] DO Luis Gutierrez Attending Provider [phone] CARMEN, DR LAURITA Solis Attending Unavailable MORALES, [...] Admitting Unavailable ROBERTO MCNALLY Consulting Unavailable SALAM, FAROOQ Admitting Unavailable MORALES, DR LAURITA Solis Primary Care Unavailable SALAM, FAROOQ Attending Unavailable DR LUIS GUTIERREZ Consulting Unavailable MORALES, DR LAURITA Solis Primary Care Unavailable MORALES, DR LAURITA Solis Admitting Unavailable MORALES, DR LAURITA Solis Attending Unavailable MASON, DR LONNY Wiggins Consulting Unavailable MORALES, DR LAURITA Solis Consulting Unavailable MORALES, DR LAURITA Solis Primary Care Unavailable IRAHETA, DR RADHA Whitfield Attending Unavailable IRAHETA, DR RADHA Whitfield Consulting Unavailable ESEQUIEL, DR RADHA Whitfield Admitting Unavailable SBAINA STONE Consulting Unavailable MORALES, DR LAURITA Solis [...] Unavailable ESEQUIEL, DR RADHA Whitfield Attending Unavailable ESEQUEIL, DR RADHA Whitfield Admitting Unavailable MORALES, DR LAURITA Solis Primary Care Unavailable IRAHETA, DR RADHA Whitfield Attending Unavailable IRAHETA, DR RADHA Whitfield Admitting Unavailable SALAM, FAROOQ Admitting Unavailable MORALES, DR LAURITA Solis Primary Care Unavailable SALAM, FAROOQ Attending Unavailable SALAM, FAROOQ Consulting Unavailable MORALES, DR LAURITA Solis Primary Care Unavailable MISC, DR HIDALGO Admitting Unavailable MISC, DR HIDALGO Attending Unavailable MISC, DR HIDALGO Consulting Unavailable Luis Gutierrez Admitting Unavailable Laurita Morales Primary Care Unavailable MurLuis humphrey Attending Unavailable DeRiso, Cy Attending Unavailable DeRiso Cy Admitting Unavailable Morales, Laurita Solis Primary Care Unavailable Morales, Laurita Solis Primary Care Unavailable MurLuis humphrey Attending Unavailable MurLuis humphrey Admitting Unavailable Laurita Morales Unavailable Laurita Morales MD Primary Care Provider [phone] Martin Tatum Attending Unavaila ble Sarmini, Martin Talal Admitting Unavaila ble Sarminmeera, Martin Talal Attending Unavaila ble Sarminmeera, Martin Talal Attending Unavaila ble Levyminmeera, Martin Talal Admitting Unavaila ble Levyminmeera, Martin Felicianoal Attending Unavaila ble Levyminmeera, Martin Talal Admitting Unavaila ble Sarminmeera, Martin Talal Attending Unavaila Laurita Fontenot MD Primary Care Provider Laurita Morales MD Primary Care Provider [phone] Martin Tatum Attending Unavaila pato GUERRERO JR., LARISSA Hurley Attending Unavaila pato GUERRERO JR., LARISSA Hurley Attending Unavaila pato GUERRERO JR., LARISSA Hurley Referring Unavaila pato GUERRERO JR., LARISSA Hurley Attending Unavaila ble DOLLY VERAS Attending Unavailable SOFIA BULL Attending Unavailable DOLLY VERAS Referring Unavailable APLGAUTAM, ADALI Pompa Attending Unavailable APLGAUTAM, ADALI Pompa Referring Unavailable DANIELLE CURRAN Attending Unavailable APLING, ADALI Pompa Attending Unavailable APLING, ADALI Pompa Attending Unavailable ABHI RAMIRES Attending Unavailable DOLLY VERAS Attending Unavailable DOLLY VERAS Attending Unavailable APLGAUTAM, ADALI Pompa Attending Unavailable APLGAUTAM, ADALI Pompa Attending Unavailable Joyce ALARCON, Zulay Lynch Attending Unavailable Joyce ALARCON, Zulay Lynch Attending Unavailable Carmen ALARCON, Laurita Solis Primary Care Provider Nasim Segal DO Attending Provider Allergies Allergy Classification Reported Allergen(s) Allergy Type Date of Onset Reaction(s) Facility (20 sources) varenicline; Translations: [varenicline] Drug Allergy 08-25-2023 Unknown [facility] Comment on above: Outside Source Comme nt: Other Reaction(s): Unknown Medications Current Medications Medication Drug Class(es) Dates Sig (Normalized) Sig (Original) acetaminophen 325 mg / HYDROcodone bitartrate 5 mg oral tablet (2 sources) Opioid Agonist Start: 07-06-2024 End: 07-09-2024 take 1 tablet by mouth every six hours for pain HYDROcodone-aceta minophen (Dennison) 5-325 MG tablet Indications: Acute medial meniscus tear of right knee, initial encounter Take 1 tablet by mouth every 6 (six) hours if needed for severe pain for up to 3 days 12 tablet 07/06/2024 07/09/2024 Active Start: 10-08-2023 End: 10-11-2023 take 1 tablet by mouth every six hours for pain HYDROcodone-acetaminophen (Dennison) 5-325 MG tablet Indications: Post-op pain Take [...] mg oral tablet (20 sources) Benzodiazepine Start: 05-27-2024 End: 08-19-2024 take 0.25 mg by mouth twice daily Alprazolam 0.5 mg tablet Active 0.25 MG PO Twice daily August 19, 2024 12:34pm Complies with drug therapy Start: 05-26-2021 End: 05-27-2024 take 1 tablet by mouth twice daily as needed for anxiety Alprazolam 0.5 mg tablet Discontinued 0.5 MG PO Twice daily as needed for anxiety 50 April 21, 2024 9:17am May 27, 2024 1:18pm Start: 01-28-2020 alprazolam Ora l, Refills(s) 0, [...] Ordered busPIRone hydrochloride 15 mg oral tablet (20 sources) Start: 02-19-2024 take 1 tablet by mouth in the morning busPIRone (Buspar) 15 MG tablet Take 15 mg by mouth in the morning and 15 mg before bedtime. 02/19/2024 Active Start: 02-18-2024 End: 08-19-2024 take 1 tablet by mouth twice daily Buspirone 15 mg tablet Active 0 .ROUTE .COMPLEX August 19, 2024 12:34pm TAKE ONE TABLET BY MOUTH TWICE A DAY Complies with drug therapy Start: 01-20-2024 End: 02-18-2024 take 1 tablet [...] 0, Prophylaxis Start Date: 01/28/20 Status: Ordered escitalopram 20 mg oral tablet (20 sources) Serotonin Reuptake Inhibitor Start: 01-22-2024 take 1 tablet by mouth once daily Escitalopram Oxalate 20 mg tablet Active 0 .ROUTE .COMPLEX January 22, 2024 9:32am TAKE ONE TABLET BY MOUTH DAILY 30 Complies with drug therapy Start: 05-26-2021 End: 01-22-2024 take 1 tablet by mouth once daily in the morning Escitalopram Oxalate 20 mg tablet Discontinued 20 MG PO Every morning May 26, 2021 12:00am January 22, 2024 9:32am Start: 01-28-2020 escitalopram O ral, Daily, Refills(s) 0 Start Date: 01/28/20 Status: Ordered End: 06-23-2024 take 1 tablet by mouth once daily escitalopram (Lexapro) 10 MG tablet Take 10 mg by mouth Daily 06/23/2024 Discontinued (Therapy completed) Eye Vitamin (3 sources) Start: 05-26-2021 take 1 tablet by maia th once daily Eye Vitamin Active 1 TAB PO Daily May 26, 2021 2:53pm Start: 05-26-2021 take 1 tablet by mouth once da katia Eye Vitamin Active 1 TAB PO Daily May 26, 2021 12:00am Complies with drug therapy Start: 05-26-2021 take 1 tablet by mouth [...] Weight Dosing Start Date: 07/25/20 Status: Ordered gabapentin 300 mg oral capsule (1 source) Anti-epilepti c Agent Start: 09-30-2024 take 3 capsules by mouth three times daily Gabapentin 300 mg capsule Active 900 MG PO Three times daily September 30, 2024 12:00am Complies with drug therapy Glucoamine (3 sources) Start: 05-26-2021 take 1 mg by mouth twice daily Glucoamine Active MG PO Twice daily May 26, 2021 2:53pm Start: 05-26-2021 take 1 mg by mouth twice daily Glucoamine Active MG PO Twice daily May 26, 2021 12:00am Complies with drug therapy Start: 05-26-2021 take 1 mg by mouth [...] mg oral tablet (20 sources) l-Thyroxine Start: 02-20-2024 take 1 tablet by mouth once daily Levothyroxine 75 mcg tablet Active 0 .ROUTE .COMPLEX February 20, 2024 9:23am TAKE ONE TABLET BY MOUTH ONCE DAILY Start: 09-27-2023 End: 08-19-2024 take 1 tablet by mouth once daily Levothyroxine 75 mcg tablet Active 0 .ROUTE .COMPLEX August 19, 2024 12:34pm TAKE ONE TABLET BY MOUTH ONCE DAILY Complies with drug therapy Start: 05-26-2021 End: 09-27-2023 take 1 tablet by mouth once daily in the morning Levothyroxine 75 mcg tablet Discontinued 75 MCG PO Every morning May 26, 2021 12:00am September 27, 2023 7:50am Start: 01-28-2020 levothyroxine Daily, Refills(s) 0, Thyroid Start Date: 01/28/20 Status: Ordered Start: 01-28-2020 levothyroxine Daily, Refills(s) 0 Start Date: 01/28/20 Status: Ordered take 1 tablet by maia once daily Levothyroxine Sodium 75 MCG TAKE ONE TABLET BY MOUTH ONCE DAILY for 30 Active Magnesium (3 sources) Start: 05-26-2021 take 400 mg by mouth once daily Magnesium Active 400 MG PO Daily May 26, 2021 2:53pm Start: 05-26-2021 End: 07-03-2023 take 2 tablets by mouth once daily Magnesium 200 mg Tablet Discontinued 400 MG PO Daily May 26, 2021 12:00am July 03, 2023 9:06am mesalamine 1200 mg delayed release oral tablet (20 sources) Aminosalicylate Start: 01-31-2024 mesalamine (Li ambar) 1.2 g EC tablet 01/31/2024 Active Start: 01-31-2024 take 4 tablets by mo [facility] once daily mesalamine (Lialda) 1.2 g EC tablet TAKE FOUR TABLETS BY MOUTH DAILY 01/31/2024 Active methocarbamol 750 mg oral tablet (1 source) Muscle Relaxant Methocarbamol 75 0 MG Orally Four times a day Active Misc. Devices misc (12 sources) Start: 5 Misc. Devices misc Indications: Pre-op examination Dispense: Front Wheeled walker use 90 days. Ht: 4'11 Weight: 159lb 1 Units 06/23/2024 Active Multivitamin (Multi-Day) Tablet (1 source) Start: 2 take 1 tablet by mouth once daily Multivitamin (Multi-Day) Tablet Active 1 TAB PO Daily May 26, 2021 2:53pm Multivitamin Tablet (2 sources) Start: 2 take 1 tablet by mouth once daily Multivitamin Tablet Active 1 TAB PO Daily May 26, 2021 12:00am Complies with drug therapy Start: 05-26-2021 take 1 tablet by maia th once daily Multivitamin Tablet Active 1 TAB PO Daily May 26, 2021 12:00am Aleve (1 source) Nonsteroidal Anti-inflammatory Drug Start: 03-20-2024 take 1 mg by mouth every twelve hours Aleve mg, Oral, q12hr, Refills(s) 0 Start Date: 03/20/24 Status: Ordered NuLYTELY [place] oral powder for reconstitution (1 source) Start: 01-28-2020 take 1 dose by mouth once NuLYTELY [place] oral powder for reconstitution See Instructions, 1 EA, Refill(s) 0, PER PHYS INSRTUCTIONS, [facility], 150, cm, 01/28/20 10:49:00 EST, Height/Length Dosing, 69.9, kg, 01/28/20 10:49:00 EST, Weight Dosing Start Date: 01/28/20 Status: Ordered omeprazole 40 mg delayed release oral capsule (20 sources) Proton Pump Inhibitor Start: 05-26-2021 End: 06-19-2024 take 1 capsule by mouth once daily Omeprazole 40 mg capsule,delayed release(DR/EC) Active 40 MG PO Daily June 19, 2024 1:02pm Complies with drug therapy Start: 01-28-2020 omeprazole Ora l, Daily, Refills(s) 0, Control of stomach acid Start Date: 01/28/20 Status: Ordered End: 06-23-2024 omeprazole (PriLOSEC) [address] capsule 1 (one) time each day at the same time 06/23/2024 Discontinued (Therapy completed) polyethylene glycol 3350 [id number] mg / potassium chloride 1480 mg / sodium bicarbonate 5720 mg / sodium chloride 41019 mg powder for oral solution (1 source) Osmotic Laxative Start: 01-28-2020 take 1 dose by mouth once NuLYTELY [place] oral powder for reconstitution See Instructions, 1 [...] TABLET BY MOUTH ONCE DAILY AT BEDTIME Complies with drug therapy Start: 05-26-2021 End: 12-26-2023 take 1 tablet by mouth once daily at bedtime Simvastatin 40 mg Tablet Discontinued 40 MG PO Daily at bedtime May 26, 2021 12:00am December 26, 2023 2:15pm Start: 01-28-2020 simvastatin Or al, Refills(s) 0, High cholesterol Start Date: 01/28/20 Status: Ordered sulfaSALAzine 500 mg oral tablet (20 sources) Aminosalicylate Start: 03-20-2024 End: 03-15-2025 take 2 tablets by mouth three times daily sulfasalazine 500 mg Tab 1,000 mg = 2 tab(s), Oral, TID, X 90 day(s), # 540 tab(s), Refills(s) 3, Pharmacy: [facility], 150, cm, 03/20/24 11:03:00 EST, Height/Length Dosing, 74.6, kg, 03/20/24 11:03:00 EST, Weight Dosing Start Date: 03/20/24 Stop Date: 03/15/25 Status: Ordered Start: 05-26-2021 End: 07-03-2023 take 1 tablet by mouth four times daily Sulfasalazine 500 mg tablet Discontinued 500 MG PO Four times daily May 26, 2021 12:00am July 03, 2023 9:07am Start: 05-10-2021 take 2 tablets by mo [facility] three times daily sulfasalazine 500 mg Tab 1,000 mg = 2 tab(s), Oral, TID, # 180 tab(s), Refills(s) 11, Pharmacy: [facility]/pharmacy #[id number], 150, cm, 05/10/21 11:13:00 EDT, Height/Length Dosing, 71, kg, 05/10/21 11:13:00 EDT, Weight Dosing Start Date: 05/10/21 Status: [facility] sulfaSALAzine (Azulfidine) 500 MG tablet Take 500 mg by mouth 1 (one) time each day at the same time Active Vitamin D And Calcium (3 sources) Start: 05-26-2021 Vitamin D And Calcium Active PO Twice daily May 26, 2021 2:53pm Start: 05-26-2021 Vitamin D And Calcium Active PO Twice daily May 26, 2021 12:00am Complies with drug therapy Start: 05-26-2021 Vitamin D And Calcium Active PO Twice daily May 26, 2021 12:00am zonisamide 50 mg oral capsule (20 sources) Anti-epileptic Agent Start: 10-25-2023 take 2 capsules by mouth once daily at bedtime zonisamide (Zonegran) 50 MG capsule TAKE TWO CAPSULES BY MOUTH DAILY AT BEDTIME 10/25/2023 Active Completed/Discontinued Medications Medication Drug Class(es) Dates Sig (Normalized) Sig (Original) baclofen 10 mg oral tablet (20 sources) gamma-Aminobutyri c Acid-ergic Agonist Start: 09-09-2023 End: 06-23-2024 take 1 tablet by mouth once daily [...] DAY NEEDED Start: 05-26-2021 End: 05-06-2023 take 1 tablet by mouth twice daily as needed for pain Baclofen 10 mg Tablet Discontinued 10 MG PO Twice daily as needed for Pain May 26, 2021 12:00am May 06, 2023 4:38pm Start: 01-28-2020 baclofen Oral, TID, Refills(s) 0, [...] a day for 10 day(s) Sep, Not-Taking diclofenac sodium 75 mg delayed release oral tablet (4 sources) Nonsteroidal Anti-inflammatory Drug Start: 05-26-2021 End: 07-03-2023 take 1 tablet by mouth twice daily as needed for pain Diclofenac Sodium 75 mg tablet,delayed release (DR/EC) Discontinued 75 MG PO Twice daily as needed for Pain May 26, 2021 12:00am July 03, 2023 9:08am On Hold: Resume on 06/02/21. take 1 tablet by maia th twice daily at mealtime as needed Diclofenac Potassium 50 MG 1 tablet with food or milk as needed Orally Twice a day Active methylPREDNISolone (20 sources) Corticosteroid Start: 04-15-2024 End: 06-23-2024 methylPREDNISolone (Medrol Dospak) 4 MG tablets Indications: Acute pain of left knee Follow schedule on package instructions 21 tablet 04/15/2024 06/23/2024 Discontinued (Therapy completed) Start: 04-15-2024 methylPREDNISo lone (Medrol Dospak) 4 MG tablets Indications: Acute pain of left knee Follow schedule on package instructions 21 tablet 04/15/2024 Active Start: 12-31-2023 End: 06-23-2024 methylPREDNISolone (Medrol D ospak) 4 MG tablets Indications: S/P left knee arthroscopy , Left knee pain, unspecified chronicity Follow schedule on package instructions 21 tablet 12/31/2023 06/23/2024 Discontinued (Therapy completed) Start: 12-31-2023 methylPREDNISo lone (Medrol Dospak) 4 MG tablets Indications: S/P left knee arthroscopy , Left knee pain, unspecified chronicity Follow schedule on package instructions 21 tablet 12/31/2023 Active predniSONE 5 mg oral tablet (18 sources) Start: 01-16-2024 End: 06-23-2024 predniSONE (Deltasone) 5 MG tablet START WITH 40MG (8 TABS) BY MOUTH FOR 7 DAYS, THEN DECREASE BY 5MG (1 TAB) EVERY 7 DAYS UNTIL FINISHED 01/16/2024 06/23/2024 Discontinued (Therapy completed) Start: 01-16-2024 predniSONE 5 m g Tab See Instructions, Start with 40mg x1 week and decrease by 5mg every week until finished, # 252 tab(s), Refills(s) 0, Pharmacy: [facility], 69, kg, 01/15/24 9:14:00 EST, Weight Dosing Start Date: 01/16/24 Status: Ordered Problems Active Problems Problem Classification Problem Date [...] 02-17-2024 Chronic Joint disorders and dislocations; trauma-related (5 sources) Acute tear of medial meniscus of [...] signs and symptoms in breast] Episodic Osteoarthritis (20 sources) Osteoarthritis; Translations: [Unspecified osteoarthritis, unspecified site] Onset: 02-13-2018 11-06-2023 Chronic Other circulatory disease (3 sources) Elevated blood-pressure reading without diagnosis of hypertension; Translations: [Elevated blood-pressure reading, without diagnosis of hypertension] Episodic Other connective tissue disease (4 sources) Other muscle spasm; Translations: [OTHER MUSCLE SPASM] Onset: 01-18-2022 Episodic Other connective tissue disease (5 sources) Pain in right foot; Translations: [Pain in right foot] Onset: 02-13-2018 07-03-2023 Episodic Other connective tissue disease (2 sources) [...] leg] 12-31-2023 Episodic Other non-traumatic joint disorders (4 sources) Pain in right knee; Translations: [Pain [...] conditions (not mental disorders or infectious disease) (7 sources) Encounter for screening mammogram for malignant [...] Translations: [Other specified postprocedural states] 11-06-2023 Episodic Residual codes; unclassified (4 sources) History of arthroscopy of knee joint; Translations: [Other specified postprocedural states] 07-22-2024 Episodic Spondylosis; intervertebral disc disorders; other back problems (6 sources) Spondylosis without myelopathy or radiculopathy, lumbar region; Translations: [Other intervertebral disc degeneration, lumbar region] Onset: 09-06-2021 Chronic Spondylosis; intervertebral disc disorders; other back problems (14 sources) Muscle spasm of back; Translations: [Low back pain] Onset: 02-13-2018 Episodic Substance-related disorders (7 sources) Nicotine dependence, cigarettes, [...] - Disease of esophagus, unspecified] Onset: 05-04-2021 Unclassified (2 sources) Preprocedural examination done 06-23-2024 Unclassified (1 source) M54.16 - Radiculopathy, lumbar region Past or Other Problems Problem Classification Problem Date Documented Date Episodic/Chronic Other circulatory disease (3 sources) Orthostatic hypotension; Translations: [Orthostatic hypotension] Onset: 02-13-2018 Episodic Other lower respiratory disease [...] sources) Tobacco user Onset: 03-23-2021 12-03-2023 Episodic Unclassified (1 source) LOW BACK PAIN, UNSPECIFIED; Translations: [LOW BACK PAIN, UNSPECIFIED] Onset: 09-26-2021 Results Test Name Value Interpretation Reference Range Facility Reminderson 08-11-2024 Reminders Reminders From: Radha Dominguez To: Radha Dominguez; Ramonita Keller; Sent: 03/24/2024 12:57:41 EST Show up: 05/22/2024 13:57:00 EDT Subject: Ambulatory Reminder Due Date/Time: 06/21/2024 13:57:00 EDT Reminder Please call the patient in May to schedule her colonoscopy late May/June, with Dr Tatum CONTACTED PATIENT TO SCHEDULE. SHE WOULD LIKE TO HOLD OFF UNTIL AFTER HER KNEE SURGERY JULY 07. I WILL CALL HER EARLY JULY. ALSO QUESTIONING IF MEDICARE WILL COVER SINCE IT HAS NOT BEEN A YEAR. I talked to patient she isn't ready to schedule. I offered her to call us when she is ready. She stated you will never here from me. I place a reminder for November. Normal [facility] ALL BASIC METABOLIC PANELon 06-24-2024 Anion gap [Moles/Vol] 8 mmol/L [facility] Calcium [Mass/Vol] 9.4 mg/dL 8.5 - 10. 1 mg/dL [facility] Chloride [Moles/Vol] 103 mmol/L 98 - 10 7 mmol/L [facility] CO2 [Moles/Vol] 30.4 mmol/L 21.0 - 32.0 mmol/L [facility] Creatinine [Mass/Vol] 0.75 mg/dL 0.55 - 1.02 mg/dL [facility] GFR/1.73 sq M.predicted CKD-EPI (S/P/Bld) [Vol rate/Area] >60 >=60 mL/min/1.7 3m 2 [facility] Glucose [Mass/Vol] 91 mg/dL 74 - 106 mg/dL [facility] Potassium [Moles/Vol] 4.4 mmol/L 3.5 - 5.1 mmol/L [facility] Sodium [Moles/Vol] 137 mmol/L 136 - 145 mmol/L [facility] TBH EGFR-NON AF [place] >60 >=60 mL/min/1.7 3m 2 [facility] Urea nitrogen [Mass/Vol] 11 mg/dL 7.0 - 18.0 mg/dL [facility] Urea nitrogen/Creatinine [Mass ratio] 14.7 mg/mg [facility] XR Knee - left 1 or 2 [...] structures visualized appeared to be adequately ossified. [facility] Radiology Study observation (narrative) [facility] Gastroenterology Office/Clin ic Noteon 03-20-2024 Gastroenterology [...] fL (01/15/24) Chloride: 100 mmol/L Low (01/15/24) Mills Absolute: 1.1 E9/L High (01/15/24) CO2: 23 mmol/L (01/15/24) [place] Auto: 10.6 % (01/15/24) Creatinine: 0.6 mg/dL [...] years, pereira (more content not included)... Normal [facility] Comment on above: Result Comment: Elec tronically Signed By: Martin Tatum MD\.br\Date and Time Signed: 03/20/24 11:30 EST\.br\Electronically Co-Signed By: Jacquie Gauthier MA\.br\Date and Time Co-Signed: 03/20/24 11:29 EST Ambulatory Visit Summaryon 1 04-01-2023 Ambulatory Visit Summary Ambulatory Visit Summary SHAUNNAALEXANDRA ARZATE Karthik :1950 Visit Date:01/30/2024 Ambulatory Visit Instructions [...] EDT With: Deepti ALARCON, Martin Khan Where: [facility] [address] [place], [place] [id number]- You Need to Complete the Following Calprotectin, [...] choosing us for your care. Normal [facility] Gastroenterology Office/Clin ic Noteon 01-30-2024 Gastroenterology [...] for h (more content not included)... Normal [facility] Comment on above: Result Comment: Elec tronically Signed By: Deepti ALARCON, Martin Khan\.br\Date and Time Signed: 01/30/24 14:13 EST Surgical Pathology Reporton 01-22-2024 Surgical Pathology Report [facility] [address] [place] [address]- Surgical Pathology Report Collected Date/Time: 01/15/2024 12:33 [...] Deepti ALARCON, Martin Tatum MD, Martin Khan Gross Description [...] characteristics were determined by the Laboratory of [facility] Surgical Pathology. They have not been cleared or approved by the US Food and Drug Administration. The FDA has determined that such clearance or approval is not necessary. These tests are used for clinical purposes. They should not be regarded as investigational or for research. Appropriate positive and negative controls are performed and are acceptable. Normal [facility] Comment on above: Performed By: #### [id number] #### [facility] Laboratory [address] [place] [id number] Quantiferon-TB Plus (Client Incubated)on 01-17-2024 Gamma interferon background IA Qn (Bld) 0.02 International_Unit/mL Invalid Interpretation Code [facility] Comment on above: Performed By: #### 1 [id number] #### [facility] [address] [place] [address] M. tuberculosis stim IFN-g by CD4+ CD8+ T-cells corrected for background Qn (Bld) 0.05 International_Unit/mL Invalid Interpretation Code [facility] Comment on above: Performed By: #### 1 [id number] #### [facility] [address] [place] [address] M. tuberculosis stim IFN-g by CD4+ T-cells corrected for background Qn (Bld) 0.02 International_Unit/mL Invalid Interpretation Code [facility] Comment on above: Performed By: #### 1 [id number] #### [facility] [address] [place] [address] M. tuberculosis stim IFN-g Ql (Bld) [Interp] Negative Invalid Interpretation Code Negative [facility] Comment on above: Result Comment: No r [...] interferon gamma. Chemiluminescence immunoassay methodology Performed at: [facility] [id number] PhD Kirk Cm Performed By: #### 1 [id number] #### [facility] [address] [place] [id number] Mitogen stimulated gamma interferon corrected for background Qn (Bld) >10.00 Invalid Interpretation Code [facility] Comment on above: Performed By: #### 1 [id number] #### [facility] [facility] [address] [place] [id number] Service comment (Unsp spec) [Interp] Comment Invalid Interpretation Code [facility] Comment on above: Result Comment: Terry [id number] [...] for the test. Performed By: #### 1 [id number] #### [facility] [address] [place] [id number] Enteric Panel by PCRon 01-15 Enteric Panel by PCR Shiga Tox Interp Negative for Shiga Toxin producing E. coli Normal [facility] CHEMISTRYOrdered By: SYSTEM SYSTEM on 01-15-2024 Albumin [...] samples in close time sequence. Normal Negative [facility] Comment on above: Result Comment: This test result should be correlated with clinical presentations and medical history by a healthcare provider to determine its clinical significance.\.br\.br\ Other Comment: Order added by Discern Expert. Clostridium difficile by PCR Negative Normal Negative [facility] Comment on above: Order Comment: Order added by Discern Expert. Result Comment: This test result should be correlated with clinical presentations and medical history by a healthcare provider to determine its clinical significance. Performed By: #### 4 [id number] #### [facility] [address] [place] [address] CDiff PCRon 12-06-2023 C. difficile toxin A+B Ql (Stl) No, PCR to follow Normal [facility] Comment on above: Performed By: #### 3 [id number] #### [facility] [address] [place] [address] CDiff PCR Order Cancelled Specimen has been found to be acceptable for C. difficile testing. Normal [facility] Enteric Panel by PCRon 12-05 C. coli+jejuni+upsalien sis DNA ADELITA+non-probe Ql (Stl) Not detected Normal [facility] Comment on above: Result Comment: Test ing was performed utilizing reverse minister of religion (RT), polymerase chain reaction (PCR), and array [...] nulcleic acid test. Performed By: #### 1 [id number] #### [facility] [address] [place] [address] E. coli stx1+stx2 genes ADELITA+non-probe Ql (Stl) Negative Normal [facility] Comment on above: Performed By: #### 1 [id number] #### [facility] [address] [place] [address] Enteric Panel by PCR Shiga Tox Interp Negative for Shiga Toxin producing E. coli Normal [facility] Enteric Panel Intrl QC Pass Normal [facility] Comment on above: Result Comment: Test ing was performed utilizing reverse minister of religion (RT), polymerase chain reaction (PCR), and array [...] 1 and 2. Performed By: #### 1 [id number] #### [facility] [address] [place] [address] Norovirus genogroup I+II RNA ADELITA+non-probe Ql (Stl) Not detected [facility] Comment on above: Performed By: #### 1 [id number] #### [facility] [address] [place] [address] Rotavirus A RNA ADELITA+non-probe Ql (Stl) Not detected Normal [facility] Comment on above: Performed By: #### 1 [id number] #### [facility] [address] [place] [address] S. enterica+bongori DNA ADELITA+non-probe Ql (Stl) Not detected Normal [facility] Comment on above: Result Comment: This test result should be correlated with clinical presentations and medical history by a healthcare provider to determine its clinical significance. Performed By: #### 1 [id number] #### [facility] [address] [place] [address] Shigella species+EIEC invasion plasmid antigen H ipaH gene ADELITA+non-probe Ql (Stl) Not detected Normal [facility] Comment on above: Performed By: #### 1 [id number] #### [facility] [address] [place] [address] V. cholerae+parahaemoly ticus+vulnificus DNA ADELITA+non-probe Ql (Stl) Not detected Normal [facility] Comment on above: Performed By: #### 1 [id number] #### [facility] [address] [place] [address] Y. enterocolitica DNA ADELITA+non-probe Ql (Stl) Not detected Normal [facility] Comment on above: Performed By: #### 1 [id number] #### [facility] [address] [place] [address] Celiac Disease Comprehensive on 12-05-2023 Endomysium IgA Ql (S) Negative Invalid Interpretation Code Negative [facility] Comment on above: Performed By: #### 1 [id number] #### [facility] [address] [place] [address] Gliadin peptide IgA Qn (S) 4 unit(s) Invalid Interpretation Code 0-19 [facility] Comment on above: Result Comment: Nega tive 0 - 19 Weak Positive 20 - 30 Moderate to Strong Positive >30 Performed By: #### 1 [id number] #### [facility] [address] [place] [address] Gliadin peptide IgG Qn (S) 3 unit(s) Invalid Interpretation Code 0-19 [facility] Comment on above: Result Comment: Nega tive 0 - 19 Weak Positive 20 - 30 Moderate to Strong Positive >30 Performed By: #### 1 [id number] #### [facility] [address] [place] [address] IgA [Mass/Vol] 248 mg/dL Invalid Interpretation Code 64-422 [facility] Comment on above: Result Comment: Perf ormed at: [facility] [address] [id number] PhD Kirk Cm Performed By: #### 1 [id number] #### [facility] [address] [place] [address] tTG IgA Qn (S) <2 Invalid Interpretation Code 0-3 [facility] Comment on above: Result Comment: Nega tive 0 - 3 Weak Positive 4 - 10 Positive >10 Tissue Transglutaminase (tTG) has been identified as the endomysial antigen. Studies have demonstr- ated that endomysial IgA antibodies have over 99% specificity for gluten sensitive enteropathy. Performed By: #### 1 [id number] #### [facility] [address] [place] [address] tTG IgG Qn (S) 5 unit/mL Invalid Interpretation Code 0-5 [facility] Comment on above: Result Comment: Nega tive 0 - 5 Weak Positive 6 - 9 Positive >9 Performed By: #### 1 [id number] #### [facility] [address] [place] [address] CHEMISTRYOrdered By: SYSTEM SYSTEM on 12-04-2023 TSH Qn 1.76 m[IU]/L Normal 0.34 - 5.60 mcIU/mL Remisol Chem TSHon 12-04-2023 TSH Qn 1.76 m[IU]/L Normal 0.34-5.60 [facility] Comment on above: Performed By: #### 2 [id number] #### [facility] [address] [place] [address] CBC AUTO DIFFon 11-21-2021 BASO # 0.1 103/ul Normal 0.0-0.1 [facility] Comment on above: Performed By: #### C BC #### [facility] [address] [address] [address] Scooby Irvin Basophils/100 WBC (Bld) 0.5 % Normal 0.2-2.0 [facility] Comment on above: Performed By: #### C BC #### [facility] [address] [address] [address] Scooby Irvin EO # 0.0 103/ul Normal 0.0-0.7 [facility] Comment on above: Performed By: #### C BC #### [facility] [address] [place] [address] Dr. Scooby Irvin Eosinophils/100 WBC (Bld) 0.1 % Critically low 0.9-7.0 [facility] Comment on above: Performed By: #### C BC #### [facility] [address] [address] [address] Scooby Irvin Erythrocyte distribution width (RBC) [Ratio] 15.1 % Critically high 11.0-15.0 [facility] Comment on above: Performed By: #### C BC #### [facility] [address] [place] [address] Dr. Scooby Irvin Hematocrit (Bld) [Volume fraction] 39.4 % Normal 36.0-48.0 [facility] Comment on above: Performed By: #### C BC #### [facility] [address] [address] [address] Scooby Irvin Hemoglobin (Bld) [Mass/Vol] 12.6 g/dL Normal 12.0-16.0 [facility] Comment on above: Performed By: #### C BC #### [facility] [address] [address] [address] Scooby Irvin IG # 0.05 10e3/ul Critically high 0.00-0.03 [facility] Comment on above: Performed By: #### C BC #### [facility] [address] [place] [address] Dr. Scooby Irvin IG % 0.5 % Normal 0.0-0.5 [facility] Comment on above: Performed By: #### C BC #### [facility] [address] [place] [address] Dr. Scooby Irvin LYMPH # 1.3 103/ul Normal 1.2-3.8 [facility] Comment on above: Performed By: #### C BC #### [facility] [address] [place] [address] Dr. Scooby Irvin Lymphocytes/100 WBC (Bld) 13.2 % Critically low 20.5-60.0 [facility] Comment on above: Performed By: #### C BC #### [facility] [address] [place] [address] Dr. Scooby Irvin MANUAL DIFF REQ NO Normal [facility] Comment on above: Performed By: #### C BC #### [facility] [address] [place] [address] Dr. Scooby Irvin MCH (RBC) [Entitic mass] 30.0 pg Normal 26.7-34.0 [facility] Comment on above: Performed By: #### C BC #### [facility] [address] [place] [address] Dr. Scooby Irvin MCHC (RBC) [Mass/Vol] 32.0 g/dL Normal 29.9-35.2 [facility] Comment on above: Performed By: #### C BC #### [facility] [address] [place] [address] Dr. Scooby Irvin MCV (RBC) [Entitic vol] 93.8 fL Normal 81.0-99.0 [facility] Comment on above: Performed By: #### C BC #### [facility] [address] [place] [address] Dr. Scooby Irvin MONO # 0.7 103/ul Normal 0.3-0.8 [facility] Comment on above: Performed By: #### C BC #### [facility] [address] [place] [address] Dr. Scooby Irvin Monocytes/100 WBC (Bld) 7.2 % Normal 1.7-12.0 [facility] Comment on above: Performed By: #### C BC #### [facility] [address] [place] [address] Dr. Scooby Irvin NEUT # 7.5 103/ul Critically high 1.4-6.5 [facility] Comment on above: Performed By: #### C BC #### [facility] [address] [address] [address] Scooby Irvin Neutrophils/100 WBC (Bld) 78.5 % Critically high 43.0-75.0 [facility] Comment on above: Performed By: #### C BC #### [facility] [address] [place] [address] Dr. Scooby Irvin Platelet mean volume (Bld) [Entitic vol] 9.9 fL Normal 9.5-13.5 [facility] Comment on above: Performed By: #### C BC #### [facility] [address] [place] [address] Dr. Socoby Irvin PLT 230 103/ul Normal 150-450 [facility] Comment on above: Performed By: #### C BC #### [facility] [address] [place] [address] Dr. Scooby Irvin RBC 4.20 106/ul Normal 4.20-5.40 [facility] Comment on above: Performed By: #### C BC #### [facility] [address] [place] [address] Dr. Scooby Irvin WBC 9.5 103/ul Normal 4.0-11.0 [facility] Comment on above: Performed By: #### C BC #### [facility] [address] [place] [address] Dr. Scooby Irvin PROF 14(COMP METB)on 022 Albumin [Mass/Vol] 3.9 g/dL Normal 3.4-5.0 [facility] Comment on above: Performed By: #### C BC #### [facility] [address] [place] [address] Dr. Scooby Irvin Albumin/Globulin [Mass ratio] 1.0 {ratio} Normal [facility] Comment on above: Performed By: #### C BC #### [facility] [address] [place] [address] Dr. Scooby Irvin ALP [Catalytic activity/Vol] 87 U/L Normal 46-116 [facility] Comment on above: Performed By: #### C BC #### [facility] [address] [place] [address] Dr. Scooby Irvin ALT [Catalytic activity/Vol] 29 U/L Normal 14-59 [facility] Comment on above: Performed By: #### C BC #### [facility] [address] [place] [address] Dr. Scooby Irvin Anion gap [Moles/Vol] 14.1 mmol/L Normal [facility] Comment on above: Performed By: #### C BC #### [facility] [address] [place] [address] Dr. Scooby Irvin AST [Catalytic activity/Vol] 38 U/L Critically high 15-37 [facility] Comment on above: Performed By: #### C BC #### [facility] [address] [place] [address] Dr. Scooby Irvin Bilirubin [Mass/Vol] 0.5 mg/dL Normal 0.2-1.0 [facility] Comment on above: Performed By: #### C BC #### [facility] [address] [place] [address] Dr. Scooby Irvin Calcium [Mass/Vol] 9.2 mg/dL Normal 8.5-10.1 [facility] Comment on above: Performed By: #### C BC #### [facility] [address] [place] [address] Dr. Scooby Irvin Chloride [Moles/Vol] 102 mmol/L Normal 98-107 [facility] Comment on above: Performed By: #### C BC #### [facility] [address] [place] [address] Dr. Scooby Irvin CO2 [Moles/Vol] 25.7 mmol/L Normal 21.0-32.0 [facility] Comment on above: Performed By: #### C BC #### [facility] [address] [place] [address] Dr. Scooby Irvin Creatinine [Mass/Vol] 0.76 mg/dL Normal 0.55-1.02 [facility] Comment on above: Performed By: #### C BC #### [facility] [address] [place] [address] Dr. Scooby Irvin EGFR-AF NORWEGIAN >60 Normal >=60 [facility] Comment on above: Performed By: #### C BC #### [facility] [address] [place] [address] Dr. Scooby Irvin EGFR-NON AF NORWEGIAN >60 Normal >=60 [facility] Comment on above: Performed By: #### C BC #### [facility] [address] [place] [address] Dr. Scooby Irvin Globulin (S) [Mass/Vol] 3.8 g/dL Normal [facility] Comment on above: Performed By: #### C BC #### [facility] [address] [place] [address] Dr. Scooby Irvin Glucose [Mass/Vol] 104 mg/dL Normal 74-106 [facility] Comment on above: Performed By: #### C BC #### [facility] [address] [place] [address] Dr. Scooby Irvin Potassium [Moles/Vol] 4.8 mmol/L Normal 3.5-5.1 [facility] Comment on above: Performed By: #### C BC #### [facility] [address] [place] [address] Dr. Scooby Irvin Protein [Mass/Vol] 7.7 g/dL Normal 6.4-8.2 [facility] Comment on above: Performed By: #### C BC #### [facility] [address] [place] [address] Dr. Scooby Irvin Sodium [Moles/Vol] 137 mmol/L Normal 136-145 [facility] Comment on above: Performed By: #### C BC #### [facility] [address] [address] [address] Scooby Irvin Urea nitrogen [Mass/Vol] 9.0 mg/dL Normal 7.0-18.0 [facility] Comment on above: Performed By: #### C BC #### [facility] [address] [address] [address] Scooby Irvin Urea nitrogen/Creatinine [Mass ratio] 11.8 mg/mg Normal [facility] Comment on above: Performed By: #### C BC #### [facility] [address] [address] [address] Scooby Irvin LIPID PROFILEon 09-27-2021 CHOL-HDL RATIO NORM SEE BELOW Normal [facility] Comment on above: Result Comment: 3.3 - 4.4 LOW RISK 4.4 - 7.1 AVERAGE RISK 7.1 - 11.0 MODERATE RISK >11.0 HIGH RISK Performed By: #### C MP, LIPID #### [facility] [address] [place] [address] Dr. Scooby Irvin Cholesterol [Mass/Vol] 235 mg/dL Critically high <=200 [facility] Comment on above: Performed By: #### C MP, LIPID #### [facility] [address] [place] [address] Dr. Scooby Irvin Cholesterol in HDL [Mass/Vol] 65 mg/dL Critically high 40-60 [facility] Comment on above: Performed By: #### C MP, LIPID #### [facility] [address] [address] [address] Scooby Irvin Cholesterol in LDL [Mass/Vol] 156.8 mg/dL Normal [facility] Comment on above: Performed By: #### C MP, LIPID #### [facility] [address] [id number] Scooby Irvin Cholesterol.total/Ch olesterol in HDL [Mass ratio] 3.6 {ratio} Normal [facility] Comment on above: Performed By: #### C MP, LIPID #### [facility] [address] [address] [address] Scooby Irvin HDL NORMAL > or = 60 mg/dl - LO W CARDIOVASCULAR RISK <40 mg/dl - HIGH CARDIOVASCULAR RISK Normal [facility] Comment on above: Performed By: #### C MP, LIPID #### [facility] [address] [place] [address] Dr. Scooby Irvin LDL CALC NORMAL SEE BELOW Normal [facility] Comment on above: Result Comment: <100 mg/dl OPTIMAL 100 - 129 mg/dl NEAR OR ABOVE OPTIMAL 130 - 159 mg/dl BORDERLINE HIGH 160 - 189 mg/dl HIGH >190 mg/dl VERY HIGH Performed By: #### C MP, LIPID #### [facility] [address] [place] [address] Dr. Scooby Irvin Triglyceride [Mass/Vol] 66 mg/dL Normal <=150 [facility] Comment on above: Performed By: #### C MP, LIPID #### [facility] [address] [place] [address] Dr. Scooby Irvin VLDL CALC 13.2 mg/dL Normal [facility] Comment on above: Performed By: #### C MP, LIPID #### [facility] [address] [place] [address] Dr. Scooby Irvin PROF 14(COMP METB)on 022 Albumin [Mass/Vol] 3.9 g/dL Normal 3.4-5.0 [facility] Comment on above: Performed By: #### C MP, LIPID #### [facility] [address] [place] [address] Dr. Scooby Irvin Albumin/Globulin [Mass ratio] 1.1 {ratio} Normal [facility] Comment on above: Performed By: #### C MP, LIPID #### [facility] [address] [place] [address] Dr. Scooby Irvin ALP [Catalytic activity/Vol] 87 U/L Normal 46-116 [facility] Comment on above: Performed By: #### C MP, LIPID #### [facility] [address] [place] [address] Dr. Scooby Irvin ALT [Catalytic activity/Vol] 27 U/L Normal 14-59 [facility] Comment on above: Performed By: #### C MP, LIPID #### [facility] [address] [address] [address] Scooby Irvin Anion gap [Moles/Vol] 16.9 mmol/L Normal [facility] Comment on above: Performed By: #### C MP, LIPID #### [facility] [address] [address] [address] Scooby Irvin AST [Catalytic activity/Vol] 21 U/L Normal 15-37 [facility] Comment on above: Performed By: #### C MP, LIPID #### [facility] [address] [place] [address] Dr. Scooby Irvin Bilirubin [Mass/Vol] 0.4 mg/dL Normal 0.2-1.0 [facility] Comment on above: Performed By: #### C MP, LIPID #### [facility] [address] [place] [address] Dr. Scooby Irvin Calcium [Mass/Vol] 8.7 mg/dL Normal 8.5-10.1 [facility] Comment on above: Performed By: #### C MP, LIPID #### [facility] [address] [place] [address] Dr. Scooby Irvin Chloride [Moles/Vol] 102 mmol/L Normal 98-107 [facility] Comment on above: Performed By: #### C MP, LIPID #### [facility] [address] [place] [address] Dr. Scooby Irvin CO2 [Moles/Vol] 22.0 mmol/L Normal 21.0-32.0 [facility] Comment on above: Performed By: #### C MP, LIPID #### [facility] [address] [place] [address] Dr. Scooby Irvin Creatinine [Mass/Vol] 0.73 mg/dL Normal 0.55-1.02 [facility] Comment on above: Performed By: #### C MP, LIPID #### [facility] [address] [place] [address] Dr. Scooby Irvin EGFR-AF NORWEGIAN >60 Normal >=60 [facility] Comment on above: Performed By: #### C MP, LIPID #### [facility] [address] [place] [address] Dr. Scooby Irvin EGFR-NON AF NORWEGIAN >60 Normal >=60 [facility] Comment on above: Performed By: #### C MP, LIPID #### [facility] [address] [place] [address] Dr. Scooby Irvin Globulin (S) [Mass/Vol] 3.7 g/dL Normal [facility] Comment on above: Performed By: #### C MP, LIPID #### [facility] [address] [place] [address] Dr. Scooby Irvin Glucose [Mass/Vol] 105 mg/dL Normal 74-106 [facility] Comment on above: Performed By: #### C MP, LIPID #### [facility] [address] [place] [address] Dr. Scooby Irvin Potassium [Moles/Vol] 3.9 mmol/L Normal 3.5-5.1 [facility] Comment on above: Performed By: #### C MP, LIPID #### [facility] [address] [place] [address] Dr. Scooby Irvin Protein [Mass/Vol] 7.6 g/dL Normal 6.4-8.2 [facility] Comment on above: Performed By: #### C MP, LIPID #### [facility] [address] [place] [address] Dr. Scooby Irvin Sodium [Moles/Vol] 137 mmol/L Normal 136-145 [facility] Comment on above: Performed By: #### C MP, LIPID #### [facility] [address] [place] [address] Dr. Scooby Irvin Urea nitrogen [Mass/Vol] 11.0 mg/dL Normal 7.0-18.0 [facility] Comment on above: Performed By: #### C MP, LIPID #### [facility] [address] [place] [address] Dr. Scooby Irvin Urea nitrogen/Creatinine [Mass ratio] 15.1 mg/mg Normal [facility] [facility] Comment on above: Performed By: #### C MP, LIPID #### [facility] [address] [place] [address] Dr. Scooby Irvin TSHon 09-27-2021 TSH 2.198 uIU/mL Normal 0.358-3.74 0 [facility] Comment on above: Performed By: #### T SH #### [facility] [address] [place] [address] Dr. Scooby Irvin Covid-19 PCR ([facility])on 09-11 SARS-CoV-2 (COVID-19) RNA ADELITA+probe Ql (Unsp spec) Not detected Normal NOT DETECTED [facility] Comment on above: Result Comment: This test is not yet approved or cleared by the [place] FDA. When there are no FDA-approved or cleared tests available, and other criteria are met, FDA can make tests available under an emergency access mechanism called an Emergency Use Authorization (EUA). The EUA for this test is supported by the [place] of Health and Human Service's (HHS's) declaration [...] Performed By: #### C BC #### [facility] [address] [place] [address] Dr. Scooby Irvin TSHon 06-22-2021 TSH 2.326 uIU/mL Normal 0.358-3.74 0 [facility] Comment on above: Performed By: #### C BC #### [facility] [address] [place] [address] Dr. Scooby Irvin TSH RANGE SEE BELOW Normal [facility] Comment on above: Result Comment: <0.3 4 UIU/ml HYPERTHYROID 0.34-5.60 UIU/ml EUTHYROID >5.60 UIU/ml HYPOTHYROID Performed By: #### C BC #### [facility] [address], [place] [address] Dr. Scooby Irvin ABO/Rh Retypeon 05-31-2021 ABO/RH Recheck Result Positive Normal [facility] Comment on above: Result Comment: PERF ORMED BY: [facility] [address] [address] PATHOLOGIST POLE FRAMER TRICIA Yin 05-31-2021 L -------- -------- Specimen: [id number] Received: 05/31/21 Status: LIDIA Duckworth Num: [id number] Spec Type: Surgical Subm Dr: Luis Gutierrez DO Tissues: A Parathyroid Gland (R/O PARATHYROID) B THYROID - Lobe (R SUBSTERNAL THYROID) Procedures: HE Stain/8, Gross/Micro L5, Gross/Micro L4 -------- Patient Age/Sex Location Account Attending Physician -------- Alexandra Cervantes 71/F [place] [id number] Luis Gutierrez DO -------- SPEC NUM: [id number] RECD: 05/31/21 STATUS: LIDIA DUCKWORTH NUM: [id number] KATHY: 05/31/21- SUBM DR: Luis Gutierrez DO ENTERED: 05/31/21 [facility] DR: LANCE TYPE: Surgical DEPT: S ORDERED: [...] Sectioning of the sutured nodule -------- Specimen: Received: 05/31/21 Status: LIDIA Duckworth Num: [id number] Spec Type: Surgical Subm Dr: Luis Gutierrez DO Tissues: A Parathyroid Gland (R/O PARATHYROID) B THYROID - Lobe (R SUBSTERNAL THYROID) Procedures: HE Stain/8, Gross/Micro L5, Gross/Micro L4 -------- Patient: Alexandra Cervantes [id number] (Continued) -------- Specimen: Received: 05/31/21 (Continued) Gross Description (Continued) Signed (signature on file) Tricia Oshea MD 06/01/211912 -------- Specimen: Received: 05/31/21 Status: LIDIA Duckworth Num: [id number] Spec Type: Surgical Subm Dr: Luis Gutierrez Tissues: A Parathyroid Gland (R/O PARATHYROID) B THYROID - Lobe (R SUBSTERNAL THYROID) Procedures: HE Stain/8, Gross/Micro L5, Gross/Micro L4 -------- Patient: Alexandra Cervantes [id number] (Continued) -------- Specimen: [id number] Received: 05/31/21-105 (Continued) Gross Description (Continued) demonstrates piedra-pink, gelatinous [...] microscopic findings support the above pathologic diagnosis. [id number], [id number], [id number] -------- -------- Specimen: [id number] Received: (more content not included)... Normal [facility] LeukoReduced RBCon LeukoReduced RBC READY Normal [facility] Type and Screenon 05-31-2021 ABO and Rh group Nom (Bld) Blood group O Rh(D) positive Normal [facility] Comment on above: Order Comment: Trans fuse now? N Result Comment: PERF ORMED BY: [place] [address] PATHOLOGIST POLE FRAMER TRICIA OSHEA M.D. Basic Metabolic Panelon 05-12 Calcium [Mass/Vol] 9.5 mg/dL Normal 8.2-10.[address] [facility] Comment on above: Result Comment: PERF ORMED BY: [facility] [address] [place] [address] PATHOLOGIST POLE FRAMER TRICIA OSHEA M.D. Performed By: #### C BC, BMP #### [facility] [address] [place] [address] [place] Chloride [Moles/Vol] 105 mmol/L Normal 95-114 [facility] Comment on above: Performed By: #### C BC, BMP #### [facility] [address] [place] [id number] [place] CO2 [Moles/Vol] 23.0 mmol/L Normal 22.0-30.0 [facility] Comment on above: Performed By: #### C BC, BMP #### [address] Creatinine [Mass/Vol] 0.66 mg/dL Normal 0.44-1.03 [facility] Comment on above: Performed By: #### C BC, BMP #### [address] Estimated GFR ( Traci > 60 Normal [facility] Comment on above: Result Comment: GFR estimated reference range: According to KDOQI guidelines, <60 ml/min/1.73m2 is sufficient to diagnose a patient with chronic kidney disease. Performed By: #### C KELSEY, BMP #### [address] Estimated GFR (Non- Am > 60 Normal [facility] Comment on above: Performed By: #### C BC, BMP #### [address] Glucose [Mass/Vol] 89 mg/dL Normal 70-[address] [facility] Comment on above: Result Comment: [place] Glucose Reference Range is dependent on time and content of last meal. Glucose of more than 200 mg/dL in a nonstressed, ambulatory subject supports the diagnosis of Diabetes Mellitus. ADA recommended reference range Performed By: #### C BC, BMP #### [address] Potassium [Moles/Vol] 4.0 mmol/L Normal 3.5-5.1 [facility] Comment on above: Performed By: #### C BC, BMP #### [address] Sodium [Moles/Vol] 137 mmol/L Normal 136-[address] [facility] Comment on above: Performed By: #### C BC, BMP #### [address] Urea nitrogen [Mass/Vol] 10 mg/dL Normal 9-23 [facility] Comment on above: Performed By: #### C BC, BMP #### [place] [address] [place] Basophils Auto (Bld) [#/Vol] Ordered By: Luis Dengkam on 05-26-2021 Basophils (Bld) [#/Vol] 0.1 10*3/uL 0.0-0.2 [facility] Basophils/100 WBC Auto (Bld) Ordered By: Luis Arreagaziggy on 05-26-2021 Basophils/100 WBC (Bld) 0.9 % [facility] Blood hemoglobin measurement (mass/volume)Ordered By: Luis Dengkam on 05-26-2021 Hemoglobin (Bld) [Mass/Vol] 12.4 g/dL 11.8-15.4 [facility] Blood leukocytes automated c ount (number/volume)Ordered By: Luis Dengkam on 05-26-2021 WBC (Bld) [#/Vol] 8.8 10*3/uL 4.5-11.[address] [facility] COVID-19 FRMCon 05-26-2021 SARS-CoV-2 (COVID-19) RNA ADELITA+probe Ql (Unsp spec) Negative Normal Negative [facility] Comment on above: Order Comment: Healt hcare Worker?: N Result Comment: Testing for SARS-CoV-2 by RT-PCR This test was developed and its performance characteristics determined by [employer] and validated at the [facility]. This test has not been FDA cleared [...] is terminated or revoked sooner. PERFORMED BY: [place] [address] PATHOLOGIST POLE FRAMER TRICIA OSHEA M.D. Performed By: #### C OVID 19 [facility] #### [facility] [address] [place] [address] COVID-19 Positive/NegativeOr dered By: Luis Gutierrez on 05-26-2021 SARS-CoV-2 (COVID-19) N gene ADELITA+probe Ql (Resp) Negative Negative [facility] Comment on above: Testing for SARS-CoV -2 by RT-PCRThis test was developed and its performance characteristics determined by [employer] and validated at the [facility]. This test has not been FDA cleared [...] [Mass/Vol] 9.4 mg/dL Normal 8.2-10.[address] [facility] Comment on above: Performed By: #### C A, TSH3, PTH #### [address] Complete Blood Count Auto Di ffon 05-26-2021 Basophils (Bld) [#/Vol] 0.1 10*3/uL Normal 0.0-0.2 [facility] Comment on above: Result Comment: PERF ORMED BY: [place] [address] PATHOLOGIST POLE FRAMER TRICIA OSHEA M.D. Performed By: #### C BC, BMP #### [address] Basophils/100 WBC (Bld) 0.9 % Normal . [facility] Comment on above: Performed By: #### C BC, BMP #### [address] Eosinophils (Bld) [#/Vol] 0.0 10*3/uL Normal 0.0-0.45 [facility] Comment on above: Performed By: #### C BC, BMP #### [address] Eosinophils/100 WBC (Bld) 0.2 % Normal . [facility] Comment on above: Performed By: #### C KELSEY, BMP #### [address] Erythrocyte distribution width (RBC) [Ratio] 16.1 % High 11.9-15.3 [facility] Comment on above: Performed By: #### C BC, BMP #### [address] Hematocrit (Bld) [Volume fraction] 37.5 % Normal 34.0-46.4 [facility] Comment on above: Performed By: #### C BC, BMP #### [address] Hemoglobin (Bld) [Mass/Vol] 12.4 g/dL Normal 11.8-15.4 [facility] Comment on above: Performed By: #### C BC, BMP #### [address] Lymphocytes (Bld) [#/Vol] 1.4 10*3/uL Normal 1.00-4.8 [facility] Comment on above: Performed By: #### C BC, BMP #### [address] Lymphocytes/100 WBC (Bld) 15.8 % Normal . [facility] Comment on above: Performed By: #### C BC, BMP #### [address] MCH (RBC) [Entitic mass] 29.2 pg Normal 24.7-34.3 [facility] Comment on above: Performed By: #### C BC, BMP #### [address] MCV (RBC) [Entitic vol] 88.3 fL Normal 80-100 [facility] Comment on above: Performed By: #### C BC, BMP #### [address] Mean Corpuscular HGB Conc 33.1 g/dL Normal 32.0-35.0 [facility] Comment on above: Performed By: #### C KELSEY, BMP #### [address] Monocytes (Bld) [#/Vol] 0.7 10*3/uL Normal 0.0-0.8 [facility] Comment on above: Performed By: #### C KELSEY, BMP #### [address] Monocytes/100 WBC (Bld) 7.7 % Normal . [facility] Comment on above: Performed By: #### C KELSEY, BMP #### [address] Neutrophils (Bld) [#/Vol] 6.7 10*3/uL Normal 1.8-7.7 [facility] Comment on above: Performed By: #### C BC, BMP #### [address] Neutrophils/100 WBC (Bld) 75.4 % Normal . [facility] Comment on above: Performed By: #### C BC, BMP #### [address] Nucleated RBC/100 WBC (Bld) [Ratio] 0.1 % Normal 0-0.5 [facility] Comment on above: Performed By: #### C BC, BMP #### [address] Platelet mean volume (Bld) [Entitic vol] 8.6 fL Normal 6.3-10.7 [facility] Comment on above: Performed By: #### C BC, BMP #### [facility] [address] Platelets (Bld) [#/Vol] 241 10*3/uL Normal 150-450 [facility] Comment on above: Performed By: #### C KELSEY, BMP #### [facility] [address] RBC (Bld) [#/Vol] 4.24 10*6/uL Normal 3.60-5.00 [facility] Comment on above: Performed By: #### C KELSEY, BMP #### [facility] [address] WBC (Bld) [#/Vol] 8.8 10*3/uL Normal 4.5-11.[address] [facility] Comment on above: Performed By: #### C BC, BMP #### [facility] [address] Creatinine and Glomerular fi ltration rate.predicted panel (S/P/Bld)Ordered By: Luis Gutierrez on 05-26-2021 Creatinine [Mass/Vol] 0.66 mg/dL 0.44-1.03 [facility] ECG 12 lead ECGon 05-26-2021 ECG 12 lead ECG [facility] Main [place] [address] [place] [address] Electrocardiograph Report Signed Patient: Alexandra Cervantes MR#: [id number] 2 : 1950 Acct:[id number] Age/Sex: 71 / F ADM Date: 05/26/21 Loc: PS [facility]: [facility] Att[facility] Dr: Luis Gutierrez DO Ordering [...] By Fredi Haines DO 05/27 0848 Normal [facility] Eosinophils Auto (Bld) [#/Vo l]Ordered By: Luis Gutierrez on 05-26-2021 Eosinophils (Bld) [#/Vol] 0.0 10*3/uL 0.0-0.45 [facility] Eosinophils/100 WBC Auto (Bl d)Ordered By: Luis Gutierrez on 05-26-2021 Eosinophils/100 WBC (Bld) 0.2 % [facility] Erythrocyte distribution wid th Auto (RBC) [Ratio]Ordered By: Luis Gutierrez on 05-26-2021 Erythrocyte distribution width (RBC) [Ratio] 16.1 % 11.9-15.3 [facility] Estimated glomerular filtrat ion rate (GFR) non- AmericanOrdered By: Luis Gutierrez on 05-26-2021 GFR/1.73 sq M.predicted among non-blacks MDRD (S/P/Bld) [Vol rate/Area] > 60 mL/Min [facility] Hematocrit Auto (Bld) [Volum e fraction]Ordered By: Luis Gutierrez on 05-26-2021 Hematocrit (Bld) [Volume fraction] 37.5 % 34.0-46.4 [facility] Laboratory - Hematology and Cell countsOrdered By: Luis Gutierrez on 05-26-2021 Nucleated RBC/100 WBC (Bld) [Ratio] 0.1 % 0-0.5 [facility] Lymphocytes Auto (Bld) [#/Vo l]Ordered By: Luis Gutierrez on 05-26-2021 Lymphocytes (Bld) [#/Vol] 1.4 10*3/uL 1.00-4.8 [facility] Lymphocytes/100 WBC Auto (Bl d)Ordered By: Luis Gutierrez on 05-26-2021 Lymphocytes/100 WBC (Bld) 15.8 % [facility] MCH Auto (RBC) [Entitic mass ]Ordered By: Luis Gutierrez on 05-26-2021 MCH (RBC) [Entitic mass] 29.2 pg 24.7-34.3 [facility] MCHC Auto (RBC) [Mass/Vol]Or dered By: Luis Gutierrez on 05-26-2021 MCHC (RBC) [Mass/Vol] 33.1 g/dL 32.0-35.0 [facility] MCV Auto (RBC) [Entitic vol] Ordered By: Luis Gutierrez on 05-26-2021 MCV (RBC) [Entitic vol] 88.3 fL 80-100 [facility] Monocytes Auto (Bld) [#/Vol] Ordered By: Luis Gutierrez on 05-26-2021 Monocytes (Bld) [#/Vol] 0.7 10*3/uL 0.0-0.8 [facility] Monocytes/100 WBC Auto (Bld) Ordered By: Luis Gutierrez on 05-26-2021 Monocytes/100 WBC (Bld) 7.7 % [facility] Neutrophils Auto (Bld) [#/Vo l]Ordered By: Luis Gutierrez on 05-26-2021 Neutrophils (Bld) [#/Vol] 6.7 10*3/uL 1.8-7.7 [facility] Neutrophils/100 WBC Auto (Bl d)Ordered By: Luis Gutierrez on 05-26-2021 Neutrophils/100 WBC (Bld) 75.4 % [facility] No Panel InformationOrdered By: Luis Gutierrez on 05-26-2021 Estimated GFR () > 60 mL/Min [facility] Comment on above: GFR estimated refere nce range: According to KDOQI guidelines, <60 ml/min/1.73m2 is sufficient to diagnose a patient with chronic kidney disease. Pharmacy Creatinine Clearance (Chem N/A [facility] Parathyroid Hormone Intacton 05-26-2021 Parathyroid Hormone Intact 31.2 pg/mL Normal 12-88 [facility] Comment on above: Result Comment: PERF ORMED BY: [facility] [address] [place] [address] PATHOLOGIST POLE FRAMER TRICIA OSHEA M.D. Performed By: #### C BC, BMP #### [facility] [address] Platelet mean volume Auto (B ld) [Entitic vol]Ordered By: Luis Gutierrez on 05-26-2021 Platelet mean volume (Bld) [Entitic vol] 8.6 fL 6.3-10.7 [facility] Platelets Auto (Bld) [#/Vol] Ordered By: Luis Gutierrez on 05-26-2021 Platelets (Bld) [#/Vol] 241 10*3/uL 150-450 [facility] RBC Auto (Bld) [#/Vol]Ordere d By: Luis Gutierrez on 05-26-2021 RBC (Bld) [#/Vol] 4.24 10*6/uL 3.60-5.00 [facility] Serum or plasma calcium joseph urement (mass/volume)Ordered By: Luis Gutierrez on 05-26-2021 Calcium [Mass/Vol] 9.4 mg/dL 8.2-10.[address] [facility] Serum or plasma chloride liv surement (moles/volume)Ordered By: Luis Gutierrez on 05-26-2021 Chloride [Moles/Vol] 105 mmol/L 95-114 [facility] Serum or plasma glucose joseph urement (mass/volume)Ordered By: Luis Gutierrez on 05-26-2021 Glucose [Mass/Vol] 89 mg/dL 70-[address] [facility] Comment on above: ADA recommended refe rence rangeRandom Glucose Reference Range is dependent on time and content of last meal. Glucose of more than 200 mg/dL in a nonstressed, ambulatory subject supports the diagnosis of Diabetes Mellitus. Serum or plasma intact parat hyroid hormone measurement (mass/volume)Ordered By: Luis Gutierrez on 05-26-2021 Parathyrin.intact [Mass/Vol] 31.2 pg/mL 12-88 [facility] Serum or plasma potassium me asurement (moles/volume)Ordered By: Luis Gutierrez on 05-26-2021 Potassium [Moles/Vol] 4.0 mmol/L 3.5-5.1 [facility] Serum or plasma sodium measu rement (moles/volume)Ordered By: Luis Gutierrez on 05-26-2021 Sodium [Moles/Vol] 137 mmol/L 136-[address] [facility] Serum or plasma total carbon dioxide measurement (moles/volume)Ordered By: Luis Gutierrez on 05-26-2021 CO2 [Moles/Vol] 23.0 mmol/L 22.0-30.0 [facility] Serum or plasma urea nitroge n measurement (mass/volume)Ordered By: Luis Gutierrez on 05-26-2021 Urea nitrogen [Mass/Vol] 10 mg/dL 9- [facility] TSH DL <= 0.005 mIU/L QnOrde red By: Luis Gutierrez on 05-26-2021 TSH Qn 0.86 m[IU]/L 0.45-5.33 [facility] Thyroid Stimulating Hormoneo n 05-26-2021 TSH Qn 0.86 m[IU]/L Normal 0.45-5.33 [facility] Comment on above: Performed By: #### C A, TSH3, PTH #### [address] MG MAMM SCREEN 3D GEORGES CADon 05-22-2021 MG MAMM SCREEN 3D GEOR[place]ES CAD Patient: ALEXANDRA CERVANTES Exam Date: 05/22/2021 : 1950 Gender:F Ordering : DR LAURITA MORALES M.D. Admission #: [id number] Family : Order #: [id number] CLICK HERE TO VIEW EXAM RADIOLOGY REPORT [...] No Treatments None Family Cancers None LOCATION: [facility] BREAST COMPOSITION: Scattered areas fibroglandular [...] on 05/22/2021 at 12:06 Normal [facility] CT Chest w/Contraston 2021 CT Chest w/Contrast Please see CT neck r eport dated: 05/17/2021. Report reported and signed by Fuentes Lion on 05/22/2021 1528 Normal [facility] CT Soft Tissue Neck w/ Contr [...] by Fuentes Lion on 05/22/2021 1528 Normal [facility] Specialist [place] esophaguson 05-04-2021 [place] esophagus [facility] Main [address] [address] Fluoroscopy Report Signed Patient: Alexandra Cervantes MR#: [id number] 2 : 1950 Acct:[id number] Age/Sex: 71 / F ADM Date: 05/04/21 Loc: XD Room: Type: [facility] Attending Dr: Cy Sears MD Ordering Provider: [...] Kitchen Jr., M.D.05/04/2021 3:37 PM Dictation Location: [place] [address] Transcribed By: [facility] 05/04/211536 Dictated By: Selvin Kitchen Jr, MD 05/04/211531 Signed By: 05/04/21 153 [facility] CBC AUTO DIFFon 04-20-2021 BASO # 0.1 103/ul Normal 0.0-0.1 [facility] Comment on above: Performed By: #### C #### [facility] [address] [place] [address] Dr. Scooby Irvin Basophils/100 WBC (Bld) 0.4 % Normal 0.2-2.0 [facility] Comment on above: Performed By: #### C BC #### [facility] [address] [place] [address] Dr. Scooby Irvin EO # 0.0 103/ul Normal 0.0-0.7 [facility] Comment on above: Performed By: #### C BC #### [facility] [address] [place] [address] Dr. Scooby Irvin Eosinophils/100 WBC (Bld) 0.2 % Critically low 0.9-7.0 [facility] Comment on above: Performed By: #### C BC #### [facility] [address] [place] [address] Dr. Scooby Irvin Erythrocyte distribution width (RBC) [Ratio] 16.7 % Critically high 11.0-15.0 [facility] Comment on above: Performed By: #### C BC #### [facility] [address] [place] [address] Dr. Scooby Irvin Hematocrit (Bld) [Volume fraction] 37.6 % Normal 36.0-48.0 [facility] Comment on above: Performed By: #### C BC #### [facility] [address] [place] [address] Dr. Scooby Irvin Hemoglobin (Bld) [Mass/Vol] 12.0 g/dL Normal 12.0-16.0 [facility] Comment on above: Performed By: #### C BC #### [facility] [address] [place] [address] Dr. Scooby Irvin IG # 0.02 10e3/ul Normal 0.00-0.03 [facility] Comment on above: Performed By: #### C BC #### [facility] [address] [place] [address] Dr. Scooby Irvin IG % 0.2 % Normal 0.0-0.5 [facility] Comment on above: Performed By: #### C BC #### [facility] [address] [place] [address] Dr. Scooby Irvin LYMPH # 1.6 103/ul Normal 1.2-3.8 [facility] Comment on above: Performed By: #### C BC #### [facility] [address] [place] [address] Dr. Scooby Irvin Lymphocytes/100 WBC (Bld) 13.6 % Critically low 20.5-60.0 [facility] Comment on above: Performed By: #### C BC #### [facility] [address] [place] [address] Dr. Scooby Irvin MANUAL DIFF REQ NO Normal [facility] Comment on above: Performed By: #### C BC #### [facility] [address] [place] [address] Dr. Scooby Irvin MCH (RBC) [Entitic mass] 28.6 pg Normal 26.7-34.0 [facility] Comment on above: Performed By: #### C BC #### [facility] [address] [place] [address] Dr. Scooby Irvin MCHC (RBC) [Mass/Vol] 31.9 g/dL Normal 29.9-35.2 [facility] Comment on above: Performed By: #### C BC #### [facility] [address] [place] [address] Dr. Scooby Irvin MCV (RBC) [Entitic vol] 89.5 fL Normal 81.0-99.0 [facility] Comment on above: Performed By: #### C BC #### [facility] [address] [place] [address] Dr. Scooby Irvin MONO # 0.7 103/ul Normal 0.3-0.8 [facility] Comment on above: Performed By: #### C BC #### [facility] [address] [place] [address] Dr. Scooby Irvin Monocytes/100 WBC (Bld) 5.8 % Normal 1.7-12.0 [facility] Comment on above: Performed By: #### C BC #### [facility] [address] [address] [address] Scooby Irvin NEUT # 9.1 103/ul Critically high 1.4-6.5 [facility] Comment on above: Performed By: #### C BC #### [facility] [address] [place] [address] Dr. Scooby Irvin Neutrophils/100 WBC (Bld) 79.8 % Critically high 43.0-75.0 [facility] Comment on above: Performed By: #### C BC #### [facility] [address] [place] [address] Dr. Scooby Irvin Platelet mean volume (Bld) [Entitic vol] 10.2 fL Normal 9.5-13.5 [facility] Comment on above: Performed By: #### C BC #### [facility] [address] [place] [address] Dr. Scooby Irvin PLT 217 103/ul Normal 150-450 [facility] Comment on above: Performed By: #### C BC #### [facility] [address] [place] [address] Dr. Scooby Irvin RBC 4.20 106/ul Normal 4.20-5.40 [facility] Comment on above: Performed By: #### C BC #### [facility] [address] [place] [address] Dr. Scooby Irvin WBC 11.4 103/ul Critically high 4.0-11.0 [facility] Comment on above: Performed By: #### C BC #### [facility] [address] [place] [address] Dr. Scooby Irvin PROF 14(COMP METB)on 022 Albumin [Mass/Vol] 3.9 g/dL Normal 3.5-5.0 [facility] Comment on above: Performed By: #### C MP #### [facility] [address] [place] [address] Dr. Scooby Irvin Albumin/Globulin [Mass ratio] 1.1 {ratio} Normal [facility] Comment on above: Performed By: #### C MP #### [facility] [address] [place] [address] Dr. Scooby Irvin ALP [Catalytic activity/Vol] 72 U/L Normal 38-126 [facility] Comment on above: Performed By: #### C MP #### [facility] [address] [place] [address] Dr. Scooby Irvin ALT [Catalytic activity/Vol] 23 U/L Normal 9-52 [facility] Comment on above: Performed By: #### C MP #### [facility] [address] [place] [address] Dr. Scooby Irvin Anion gap [Moles/Vol] 10.2 mmol/L Normal [facility] Comment on above: Performed By: #### C MP #### [facility] [address] [place] [address] Dr. Scooby Irvin AST [Catalytic activity/Vol] 20 U/L Normal 14-36 [facility] Comment on above: Performed By: #### C MP #### [facility] [address] [place] [address] Dr. Scooby Irvin Bilirubin [Mass/Vol] 0.5 mg/dL Normal 0.2-1.3 [facility] Comment on above: Performed By: #### C MP #### [facility] [address] [place] [address] Dr. Scooby Irvin Calcium [Mass/Vol] 8.8 mg/dL Normal 8.4-10.2 [facility] Comment on above: Performed By: #### C MP #### [facility] [address] [place] [address] Dr. Scooby Irvin Chloride [Moles/Vol] 104 mmol/L Normal 98-107 [facility] Comment on above: Performed By: #### C MP #### [facility] [address] [place] [address] Dr. Scooby Irvin CO2 [Moles/Vol] 28.0 mmol/L Normal 22.0-30.0 [facility] Comment on above: Performed By: #### C MP #### [facility] [address] [place] [address] Dr. Scooby Irvin Creatinine [Mass/Vol] 0.87 mg/dL Normal 0.52-1.04 [facility] Comment on above: Performed By: #### C MP #### [facility] [address] [address] [address] Scooby Irvin EGFR-AF NORWEGIAN >60 Normal >=60 [facility] Comment on above: Performed By: #### C MP #### [facility] [address] [address] [address] Scooby Irvin EGFR-NON AF NORWEGIAN >60 Normal >=60 [facility] Comment on above: Performed By: #### C MP #### [facility] [address] [address] [address] Scooby Ivrin Globulin (S) [Mass/Vol] 3.5 g/dL Normal [facility] Comment on above: Performed By: #### C MP #### [facility] [address] [place] [address] Dr. Scooby Irvin Glucose [Mass/Vol] 93 mg/dL Normal 74-106 [facility] Comment on above: Performed By: #### C MP #### [facility] [address] [place] [address] Dr. Scooby Irvin Potassium [Moles/Vol] 4.2 mmol/L Normal 3.4-5.0 [facility] Comment on above: Performed By: #### C MP #### [facility] [address] [place] [address] Dr. Scooby Irvin Protein [Mass/Vol] 7.4 g/dL Normal 6.1-8.2 [facility] Comment on above: Performed By: #### C MP #### [facility] [address] [place] [address] Dr. Scooby Irvin Sodium [Moles/Vol] 138 mmol/L Normal 137-145 [facility] Comment on above: Performed By: #### C MP #### [facility] [address] [place] [address] Dr. Scooby Irvin Urea nitrogen [Mass/Vol] 15.0 mg/dL Normal 7.0-17.0 [facility] Comment on above: Performed By: #### C MP #### [facility] [address], [place] [address] Dr. Scooby Irvin Urea nitrogen/Creatinine [Mass ratio] 17.2 mg/mg Normal [facility] Comment on above: Performed By: #### C JARED #### [facility] [address], [place] [address] Dr[address] Sc[address] Irvin PET CT SKULL BASE [...] by: FUENTES BARRETO Date: 2021-04-07 08:23 Normal [facility] CT LUNG CANCER SCREENINGon 0 [...] BARRETO Date: 2021-03-23 09:57 Normal [facility] CBC AUTO DIFFon 03-09-2021 BASO # 0.1 103/ul Normal 0.0-0.1 [facility] Comment on above: Performed By: #### C BC #### [facility] [address] [address] [address] Scooby Irvin Basophils/100 WBC (Bld) 1.2 % Normal 0.2-2.0 [facility] Comment on above: Performed By: #### C BC #### [facility] [address] [address] [address] Scooby Irvin EO # 0.1 103/ul Normal 0.0-0.7 [facility] Comment on above: Performed By: #### C BC #### [facility] [address] [address] [address] Scooby Irvin Eosinophils/100 WBC (Bld) 1.4 % Normal 0.9-7.0 [facility] Comment on above: Performed By: #### C BC #### [facility] [address] [place] [address] Dr. Scooby Irvin Erythrocyte distribution width (RBC) [Ratio] 16.3 % Critically high 11.0-15.0 [facility] Comment on above: Performed By: #### C BC #### [facility] [address] [place] [address] Dr. Scooby Irvin Hematocrit (Bld) [Volume fraction] 39.6 % Normal 36.0-48.0 [facility] Comment on above: Performed By: #### C BC #### [facility] [address] [place] [address] Dr. Scooby Irvin Hemoglobin (Bld) [Mass/Vol] 12.6 g/dL Normal 12.0-16.0 [facility] Comment on above: Performed By: #### C BC #### [facility] [address] [place] [address] Dr. Scooby Irvin IG # 0.01 10e3/ul Normal 0.00-0.03 [facility] Comment on above: Performed By: #### C BC #### [facility] [address] [place] [address] Dr. Scooby Irvin IG % 0.2 % Normal 0.0-0.5 [facility] Comment on above: Performed By: #### C BC #### [facility] [address] [place] [address] Dr. Scooby Irvin LYMPH # 1.6 103/ul Normal 1.2-3.8 [facility] Comment on above: Performed By: #### C BC #### [facility] [address] [place] [address] Dr. Scooby Irvin Lymphocytes/100 WBC (Bld) 30.7 % Normal 20.5-60.0 [facility] Comment on above: Performed By: #### C BC #### [facility] [address] [place] [address] Dr. Scooby Irvin MANUAL DIFF REQ NO Normal [facility] Comment on above: Performed By: #### C BC #### [facility] [address] [address] [address] Scooby Irvin MCH (RBC) [Entitic mass] 28.4 pg Normal 26.7-34.0 [facility] Comment on above: Performed By: #### C BC #### [facility] [address] [place] [address] Dr. Scooby Irvin MCHC (RBC) [Mass/Vol] 31.8 g/dL Normal 29.9-35.2 [facility] Comment on above: Performed By: #### C BC #### [facility] [address] [place] [address] Dr. Scooby Irvin MCV (RBC) [Entitic vol] 89.2 fL Normal 81.0-99.0 [facility] Comment on above: Performed By: #### C BC #### [facility] [address] [place] [address] Dr. Scooby Irvin MONO # 0.6 103/ul Normal 0.3-0.8 [facility] Comment on above: Performed By: #### C BC #### [facility] [address] [place] [address] Dr. Scooby Irvin Monocytes/100 WBC (Bld) 11.5 % Normal 1.7-12.0 [facility] Comment on above: Performed By: #### C BC #### [facility] [address] [place] [address] Dr. Scooby Irvin NEUT # 2.8 103/ul Normal 1.4-6.5 [facility] Comment on above: Performed By: #### C BC #### [facility] [address] [place] [address] Dr. Scooby Irvin Neutrophils/100 WBC (Bld) 55.0 % Normal 43.0-75.0 [facility] Comment on above: Performed By: #### C BC #### [facility] [address] [place] [address] Dr. Scooby Irvin Platelet mean volume (Bld) [Entitic vol] 10.3 fL Normal 9.5-13.5 [facility] Comment on above: Performed By: #### C BC #### [facility] [address] [place] [address] Dr. Scooby Irvin PLT 208 103/ul Normal 150-450 [facility] Comment on above: Performed By: #### C BC #### [facility] [address] [place], [place] [id number] Dr. Scooby Irvin RBC 4.44 106/ul Normal 4.20-5.40 [facility] Comment on above: Performed By: #### C BC #### [facility] [address] [place] [address] Dr. Scooby Irvin WBC 5.1 103/ul Normal 4.0-11.0 [facility] Comment on above: Performed By: #### C BC #### [facility] [address] [place] [address] Dr. Scooby Irvin FREE T4on 03-09-2021 Free T4 [Mass/Vol] 1.15 ng/dL Normal 0.78-2.19 [facility] Comment on above: Performed By: #### C BC #### [facility] [address] [place] [address] Dr. Scooby Irvin LIPID PROFILEon 03-09-2021 CHOL-HDL RATIO NORM SEE BELOW Normal [facility] Comment on above: Result Comment: 3.3 - 4.4 LOW RISK 4.4 - 7.1 AVERAGE RISK 7.1 - 11.0 MODERATE RISK >11.0 HIGH RISK Performed By: #### L IPID, CMP, TSH #### [facility] [address] [place] [address] Dr. Scooby Irvin Cholesterol [Mass/Vol] 227 mg/dL Critically high <=200 [facility] Comment on above: Performed By: #### L IPID, CMP, TSH #### [facility] [address] [place] [address] Dr. Scooby Irvin Cholesterol in HDL [Mass/Vol] 65 mg/dL Normal [facility] Comment on above: Performed By: #### L IPID, CMP, TSH #### [facility] [address] [place] [address] Dr. Scooby Irvin Cholesterol in LDL [Mass/Vol] 142.6 mg/dL Normal [facility] Comment on above: Performed By: #### L IPID, CMP, TSH #### [facility] [address] [address] [address] Scooby Irvin Cholesterol.total/Ch olesterol in HDL [Mass ratio] 3.5 {ratio} Normal [facility] Comment on above: Performed By: #### L IPID, CMP, TSH #### [facility] [address] [address] [address] Scooby Irvin HDL NORMAL > or = 60 mg/dl - LO W CARDIOVASCULAR RISK <40 mg/dl - HIGH CARDIOVASCULAR RISK Normal [facility] Comment on above: Performed By: #### L IPID, CMP, TSH #### [facility] [address] [place] [address] Dr. Scooby Irvin LDL CALC NORMAL SEE BELOW Normal [facility] Comment on above: Result Comment: <100 mg/dl OPTIMAL 100 - 129 mg/dl NEAR OR ABOVE OPTIMAL 130 - 159 mg/dl BORDERLINE HIGH 160 - 189 mg/dl HIGH >190 mg/dl VERY HIGH Performed By: #### L IPID, CMP, TSH #### [facility] [address] [address] [address] Scooby Irvin Triglyceride [Mass/Vol] 97 mg/dL Normal <=150 [facility] Comment on above: Performed By: #### L IPID, CMP, TSH #### [facility] [address] [place] [address] Dr. Scooby Irvin VLDL CALC 19.4 mg/dL Normal [facility] Comment on above: Performed By: #### L IPID, CMP, TSH #### [facility] [address] [address] [address] Scooby Irvin PROF 14(COMP METB)on 022 Albumin [Mass/Vol] 4.0 g/dL Normal 3.5-5.0 [facility] Comment on above: Performed By: #### L IPID, CMP, TSH #### [facility] [address] [address] [address] Scooby Irvin Albumin/Globulin [Mass ratio] 1.1 {ratio} Normal [facility] Comment on above: Performed By: #### L IPID, CMP, TSH #### [facility] [address] [place] [address] Dr. Scooby Irvin ALP [Catalytic activity/Vol] 80 U/L Normal 38-126 [facility] Comment on above: Performed By: #### L IPID, CMP, TSH #### [facility] [address] [place] [address] Dr. Scooby Irvin ALT [Catalytic activity/Vol] 35 U/L Normal 9-52 [facility] Comment on above: Performed By: #### L IPID, CMP, TSH #### [facility] [address] [place] [address] Dr. Scooby Irvin Anion gap [Moles/Vol] 11.8 mmol/L Normal [facility] Comment on above: Performed By: #### L IPID, CMP, TSH #### [facility] [address] [place] [address] Dr. Scooby Irvin AST [Catalytic activity/Vol] 24 U/L Normal 14-36 [facility] Comment on above: Performed By: #### L IPID, CMP, TSH #### [facility] [address] [place] [address] Dr. Scooby Irvin Bilirubin [Mass/Vol] 0.5 mg/dL Normal 0.2-1.3 [facility] Comment on above: Performed By: #### L IPID, CMP, TSH #### [facility] [address] [place] [address] Dr. Scooby Irvin Calcium [Mass/Vol] 9.3 mg/dL Normal 8.4-10.2 [facility] Comment on above: Performed By: #### L IPID, CMP, TSH #### [facility] [address] [place] [address] Dr. Scooby Irvin Chloride [Moles/Vol] 105 mmol/L Normal 98-107 [facility] Comment on above: Performed By: #### L IPID, CMP, TSH #### [facility] [address] [place] [address] Dr. Scooby Irvin CO2 [Moles/Vol] 26.2 mmol/L Normal 22.0-30.0 [facility] Comment on above: Performed By: #### L IPID, CMP, TSH #### [facility] [address] [address] [address] Scooby Irvin Creatinine [Mass/Vol] 0.83 mg/dL Normal 0.52-1.04 [facility] Comment on above: Performed By: #### L IPID, CMP, TSH #### [facility] [address] [address] [address] Scooby Irvin EGFR-AF NORWEGIAN >60 Normal >=60 [facility] Comment on above: Performed By: #### L IPID, CMP, TSH #### [facility] [address] [address] [address] Scooby Irvin EGFR-NON AF NORWEGIAN >60 Normal >=60 [facility] Comment on above: Performed By: #### L IPID, CMP, TSH #### [facility] [address] [address] [address] Scooby Irvni Globulin (S) [Mass/Vol] 3.8 g/dL Normal [facility] Comment on above: Performed By: #### L IPID, CMP, TSH #### [facility] [address] [address] [address] Scooby Irvin Glucose [Mass/Vol] 112 mg/dL Critically high 74-106 [facility] Comment on above: Performed By: #### L IPID, CMP, TSH #### [facility] [address] [address] [address] Scooby Irvin Potassium [Moles/Vol] 4.0 mmol/L Normal 3.4-5.0 [facility] Comment on above: Performed By: #### L IPID, CMP, TSH #### [facility] [address] [address] [address] Scooby Irvin Protein [Mass/Vol] 7.8 g/dL Normal 6.1-8.2 [facility] Comment on above: Performed By: #### L IPID, CMP, TSH #### [facility] [address] [address] [address] Scooby Irvin Sodium [Moles/Vol] 139 mmol/L Normal 137-145 [facility] Comment on above: Performed By: #### L IPID, CMP, TSH #### [facility] [address] [address] [address] Scooby Irvin Urea nitrogen [Mass/Vol] 15.0 mg/dL Normal 7.0-17.0 [facility] Comment on above: Performed By: #### L IPID, CMP, TSH #### [facility] [address] [address] [address] Scooby Irvin Urea nitrogen/Creatinine [Mass ratio] 18.1 mg/mg Normal [facility] Comment on above: Performed By: #### L IPID, CMP, TSH #### [facility] [address] [place] [address] Dr. Scooby Irvin TSHon 03-09-2021 TSH 2.761 uIU/mL Normal 0.470-4.68 0 [facility] Comment on above: Performed By: #### L IPID, CMP, TSH #### [facility] [address] [place] [address] Dr. Scooby Irvin TSH RANGE SEE BELOW Normal [facility] Comment on above: Result Comment: <0.3 4 UIU/ml HYPERTHYROID 0.34-5.60 UIU/ml EUTHYROID >5.60 UIU/ml HYPOTHYROID Performed By: #### L IPID, CMP, TSH #### [facility] [address] [place] [address] Dr. Scooby Irvin Vital Signs Date Time Vital Sign Value Performing Clinician Facility 09-30-2024 09:54-0400 Body height 140.97 cm Laurita Morales MD Work Phone: [facility] 09-30-2024 09:54-0400 Body mass index (BMI) [Ratio] 37.5 kg/m2 Laurita Morales MD Work Phone: [facility] 09-30-2024 09:54-0400 Body weight 74.6 kg Laurita Morales MD Work Phone: [facility] 06-23-2024 13:30-0400 Body height 149.9 cm Dolly ORR Work Phone: [facility] 06-23-2024 13:30-0400 Body mass index (BMI) [Ratio] 32.11 kg/m2 Dolly ORR Work Phone: [facility] 06-23-2024 13:30-0400 Body weight 72.12 kg Dolly ORR Work Phone: [facility] 04-21-2024 08:53-0400 Body height 140.97 cm [facility] 04-21-2024 08:53-0400 Body mass index (BMI) [Ratio] 36.5 kg/m2 [facility] 04-21-2024 08:53-0400 Body weight 72.57 kg [facility] 04-21-2024 08:53-0400 Diastolic blood pressure 70 mm[Hg] [facility] 04-21-2024 08:53-0400 Heart rate 80 /min [facility] 04-21-2024 08:53-0400 Systolic blood pressure 128 mm[Hg] [facility] 03-20-2024 10:54-0500 Blood Pressure Location [facility] 03-20-2024 10:54-0500 Diastolic blood pressure 74 mm[Hg] [facility] 03-20-2024 10:54-0500 Heart rate 71 /min [facility] 03-20-2024 10:54-0500 Systolic blood pressure 129 mm[Hg] [facility] 01-30-2024 13:46-0500 Diastolic blood pressure 82 mm[Hg] [facility] 01-30-2024 13:46-0500 Mean blood pressure 104 mm[Hg] [facility] 01-30-2024 13:46-0500 Systolic blood pressure 148 mm[Hg] [facility] 01-30-2024 13:41-0500 Blood Pressure Location [facility] 01-30-2024 13:41-0500 Diastolic blood pressure 85 mm[Hg] [facility] 01-30-2024 13:41-0500 Heart rate 80 /min [facility] 01-30-2024 13:41-0500 Systolic blood pressure 157 mm[Hg] [facility] 01-15-2024 13:25-0500 Diastolic blood pressure 86 mm[Hg] [facility] 01-15-2024 13:25-0500 Heart rate 79 /min [facility] 01-15-2024 13:25-0500 Mean blood pressure 108 mm[Hg] [facility] 01-15-2024 13:25-0500 Respiratory rate 17 /min [facility] 01-15-2024 13:25-0500 SaO2% (BldA) [Mass fraction] 96 % [facility] 01-15-2024 13:25-0500 Systolic blood pressure 153 mm[Hg] [facility] 01-15-2024 13:15-0500 Diastolic blood pressure 81 mm[Hg] [facility] 01-15-2024 13:15-0500 Heart rate 79 /min [facility] 01-15-2024 13:15-0500 Mean blood pressure 103 mm[Hg] [facility] 01-15-2024 13:15-0500 Respiratory rate 17 /min [facility] 01-15-2024 13:15-0500 SaO2% (BldA) [Mass fraction] 96 % [facility] 01-15-2024 13:15-0500 Systolic blood pressure 148 mm[Hg] [facility] 01-15-2024 13:00-0500 Diastolic blood pressure 70 mm[Hg] [facility] 01-15-2024 13:00-0500 Heart rate 72 /min [facility] 01-15-2024 13:00-0500 Mean blood pressure 93 mm[Hg] [facility] 01-15-2024 13:00-0500 SaO2% (BldA) [Mass fraction] 97 % [facility] 01-15-2024 13:00-0500 Systolic blood pressure 140 mm[Hg] [facility] 01-15-2024 12:50-0500 Body temperature 98.24 [degF] [facility] 01-15-2024 12:44-0500 Respiratory rate 18 /min [facility] 01-15-2024 12:40-0500 Respiratory rate 19 /min [facility] 01-15-2024 12:35-0500 Respiratory rate 19 /min [facility] 01-15-2024 10:59-0500 Blood Pressure Location [facility] 01-15-2024 10:59-0500 Body temperature 98.24 [degF] [facility] 12-04-2023 08:58-0400 Blood Pressure Location [facility] 12-04-2023 08:58-0400 Diastolic blood pressure 84 mm[Hg] [facility] 12-04-2023 08:58-0400 Heart rate 84 /min [facility] 12-04-2023 08:58-0400 Respiratory rate 16 /min [facility] 12-04-2023 08:58-0400 Systolic blood pressure 156 mm[Hg] [facility] 12-04-2023 08:49-0400 Blood Pressure Location [facility] 12-04-2023 08:49-0400 Respiratory rate 16 /min [facility] 09-04-2022 09:00-0400 Body height 140.97 cm Laurita Morales Other [facility] Other 09-04-2022 09:00-0400 Body mass index (BMI) [Ratio] 36.74 kg/m2 Laurita Morales Other [facility] 09-04-2022 09:00-0400 Body weight 73.03 kg Laurita Morales Other [facility] 09-04-2022 09:00-0400 Diastolic blood pressure 78 mm[Hg] Laurita Morales Other [facility] 09-04-2022 09:00-0400 SaO2% (BldA) [Mass fraction] 97 % Laurita Morales Other [facility] 09-04-2022 09:00-0400 Systolic blood pressure 132 mm[Hg] Laurita Morales Other [facility] 03-01-2022 10:30-0500 Body height 140.97 cm Laurita Morales Other [employer] Other 03-01-2022 10:30-0500 Body mass index (BMI) [Ratio] 36.06 kg/m2 Laurita Morales Other [employer] Other 03-01-2022 10:30-0500 Body weight 71.67 kg Laurita Morales Other [employer] Other 03-01-2022 10:30-0500 Diastolic blood pressure 84 mm[Hg] Laurita Morales Other [employer] Other 03-01-2022 10:30-0500 SaO2% (BldA) [Mass fraction] 98 % Laurita Morales Other [employer] Other 03-01-2022 10:30-0500 Systolic blood pressure 132 mm[Hg] Laurita Morales Other [employer] Other 11-08-2021 10:17-0400 Diastolic blood pressure 74 mm[Hg] Farooq SALAM [facility] 11-08-2021 10:17-0400 Mean blood pressure 99 mm[Hg] Farooq SALAM [facility] 11-08-2021 10:17-0400 Systolic blood pressure 148 mm[Hg] Farooq SALAM [facility] 11-08-2021 10:15-0400 Blood Pressure Location Farooq SALAM [facility] 11-08-2021 10:15-0400 Diastolic blood pressure 95 mm[Hg] Farooq SALAM [facility] 11-08-2021 10:15-0400 Heart rate 78 /min Farooq SALAM [facility] 11-08-2021 10:15-0400 Respiratory rate 16 /min Farooq SALAM [facility] 11-08-2021 10:15-0400 Systolic blood pressure 159 mm[Hg] Farooq SALAM [facility] 05-10-2021 11:11-0400 Diastolic blood pressure 90 mm[Hg] Farooq SALAM [facility] 05-10-2021 11:11-0400 Systolic blood pressure 180 mm[Hg] Farooq SALAM [facility] Encounters Encounter Date Encounter Type Care Provider Facility Start: 09-30-2024 End: 09-30-2024 ambulatory Laurita Morales MD Work Phone: [facility] Work Phone: Start: 09-30-2024 End: 09-30-2024 Patient encounter procedure Nasim Segal [facility] Work Phone: Start: 08-20-2024 End: 08-20-2024 Bamboo flowsheet Dolly ORR Work Phone: [facility] Start: 08-20-2024 End: 08-20-2024 Bamboo flowsheet Dolly ORR Work Phone: [facility] Start: 08-20-2024 End: 08-20-2024 Postop follow up visit related to original px Dolly ORR Work Phone: [facility] Comment on above: S/P right knee arthr oscopy (Primary Dx) Start: 08-20-2024 End: 08-20-2024 ambulatory DOLLY VERAS Not Available Start: 08-10-2024 End: 08-10-2024 ambulatory Zulay Cook MD Facility:[facility] Start: 07-22-2024 End: 07-22-2024 Bamboo flowsheet Dolly ORR Work Phone: [facility] Start: 07-22-2024 End: 07-22-2024 Bamboo flowsheet Dolly Veras PA Work Phone: [facility] Start: 07-22-2024 End: 07-22-2024 Postop follow up visit related to original px Dolly ORR Work Phone: [facility] Comment on above: S/P right knee arthr oscopy (Primary Dx) Start: 07-22-2024 End: 07-22-2024 ambulatory DOLLY VERAS Not Available Start: 07-03-2024 End: 07-06-2024 Refill Abhi Ramires FINANCIAL ENGINEER Work Phone: [facility] Comment on above: Acute medial meniscu s tear of right knee, initial encounter (Primary Dx) Start: 06-30-2024 End: 06-30-2024 Bamboo flowsheet Sofia Bull PT [facility] Start: 06-30-2024 End: 06-30-2024 Bamboo flowsheet Sofia Bull PT [facility] Start: 06-30-2024 End: 06-30-2024 ambulatory Sofia Bull PT [facility] Comment on above: Pre-op examination ( Primary Dx); Localized osteoarthritis of right knee Start: 06-30-2024 End: 06-30-2024 Preprocedural examination done Sofia Jorgito PT [facility] Start: 06-24-2024 End: 06-24-2024 Clinisync Result Encounter Dolly ORR Work Phone: [facility] External Department Unsolicited Start: 06-24-2024 End: 06-24-2024 Clinisync Result Encounter Dolly ORR Work Phone: [facility] External Department Unsolicited Start: 06-23-2024 End: 06-23-2024 Bamboo flowsheet Dolly ORR Work Phone: [facility] Start: 06-23-2024 End: 06-23-2024 Bamboo flowsheet Dolly ORR Work Phone: [facility] Start: 06-23-2024 End: 06-23-2024 Patient encounter procedure Dolly ORR Work Phone: [facility] Comment on above: Pre-op examination ( Primary Dx) Start: 06-23-2024 End: 06-23-2024 Preprocedural examination done Dolly ORR Work Phone: [facility] Start: 06-23-2024 End: 06-23-2024 ambulatory DOLLY VERAS Not Available Start: 05-13-2024 End: 05-13-2024 Bamboo flowsheet JrEtta Hurley Stepanic DO Work Phone: [facility] Start: 05-13-2024 End: 05-13-2024 Bamboo flowsheet JrEtta Hurlye Stepanic DO Work Phone: [facility] Start: 05-13-2024 End: 05-13-2024 Office outpatient visit 25 minutes Jr. Larissa Hurley Steppedro DO Work Phone: [facility] Comment on above: Acute pain of right knee (Primary Dx); Acute medial meniscus tear of right knee, initial encounter Start: 05-13-2024 End: 05-13-2024 ambulatory LARISSA CABRERA Not Available Start: 05-04-2024 End: 05-04-2024 ambulatory Zulay Cook MD Facility: [facility] Start: 04-21-2024 End: 04-21-2024 ambulatory [facility] Work Phone: Start: 04-21-2024 End: 04-21-2024 Patient encounter procedure [facility] Work Phone: Start: 04-15-2024 End: 04-15-2024 Office outpatient visit 25 minutes Jr. Larissa Guerrero DO Work Phone: [facility] Comment on above: Acute pain of left k nee (Primary Dx); Acute pain of right knee; Acute medial meniscus tear of right knee, initial encounter Start: 04-15-2024 End: 04-15-2024 Bamboo flowsheet Jr. Larissa Hurley Stepanic DO Work Phone: [facility] Start: 04-15-2024 End: 04-15-2024 Bamboo flowsheet Jr. Larissa Guerrero DO Work Phone: [facility] Start: 04-15-2024 End: 04-15-2024 ambulatory LARISSA CABRERA Not Available Start: 03-20-2024 End: 03-20-2024 ambulatory Salazar Talal Sarmini Facility:[facility] Start: 03-20-2024 End: 03-20-2024 Patient encounter procedure Salazar Bradenal Sarmini [facility] Start: 03-18-2024 End: 03-18-2024 Office outpatient visit 15 minutes Jr. Larissa Guerrero DO Work Phone: [facility] Comment on above: Left knee pain, unsp ecified chronicity (Primary Dx); Internal derangement of left knee; Arthritis of left knee Start: 03-18-2024 End: 03-18-2024 ambulatory LARISSA CABRERA Not Available Start: 03-02-2024 End: 03-02-2024 Telephone encounter Adali Giordano FINANCIAL ENGINEER Work Phone: [facility] Comment on above: MRI Start: 02-17-2024 End: 02-17-2024 Bamboo flowsheet Adali Pompa Apling FINANCIAL ENGINEER Work Phone: [facility] Start: 02-17-2024 End: 02-17-2024 Bamboo flowsheet Adali Pompa Apling FINANCIAL ENGINEER Work Phone: [facility] Start: 02-17-2024 End: 02-17-2024 Office outpatient visit 15 minutes Adali Pompa Apling FINANCIAL ENGINEER Work Phone: [facility] Comment on above: S/P left knee arthro scopy (Primary Dx); Left knee pain, unspecified chronicity; Arthritis of left knee; Internal derangement of left knee Start: 02-17-2024 End: 02-17-2024 ambulatory ADALI B APLING Not Available Start: 01-30-2024 End: 01-30-2024 ambulatory Salazar Talal Sarmini Facility:[facility] Start: 01-30-2024 End: 01-30-2024 Patient encounter procedure Martin Felicianoal Deepti [facility] Start: 01-20-2024 End: 01-20-2024 Bamboo flowsheet Adali Giordano FINANCIAL ENGINEER Work Phone: [facility] Start: 01-20-2024 End: 01-20-2024 Bamboo flowsheet Adali Giordano FINANCIAL ENGINEER Work Phone: [facility] Start: 01-20-2024 End: 01-20-2024 Office outpatient visit 25 minutes Adali Giordano FINANCIAL ENGINEER Work Phone: [facility] Comment on above: S/P left knee arthro scopy (Primary Dx); Left knee pain, unspecified chronicity; Arthritis of left knee Start: 01-20-2024 End: 01-20-2024 ambulatory ADALI GIORDANO Not Available Start: 01-15-2024 End: 01-15-2024 Patient encounter procedure Martin Tatum [facility] Start: 12-31-2023 End: 12-31-2023 Bamboo flowsheet Abhi Ramires FINANCIAL ENGINEER Work Phone: [facility] Start: 12-31-2023 End: 12-31-2023 Bamboo flowsheet Abhi Ramires FINANCIAL ENGINEER Work Phone: [facility] Start: 12-31-2023 End: 12-31-2023 Postop follow up visit related to original px Abhi Ramires FINANCIAL ENGINEER Work Phone: [facility] Comment on above: S/P left knee arthro scopy (Primary Dx); Left knee pain, unspecified chronicity Start: 12-31-2023 End: 12-31-2023 ambulatory ABHI RAMIRES Not Available Start: 12-06-2023 End: 12-06-2023 ambulatory Salazar Talal Sarmini Facility[facility] Start: 12-06-2023 End: 12-06-2023 Lab Drop off Salazar Talal Levymini [facility] Start: 12-04-2023 End: 12-04-2023 ambulatory Salazar Talal Sarmini Facility[facility] Start: 12-04-2023 End: 12-04-2023 Patient encounter procedure Salazar Talal Sarmini [facility] Start: 12-04-2023 ambulatory Salazar Talal Levymini Facility:[facility] Start: 12-04-2023 End: 12-04-2023 Patient encounter procedure Salazar Talal Sarmini [facility] Start: 11-26-2023 ambulatory Salazar Levymini Facili ty:[facility] Start: 11-13-2023 End: 11-13-2023 Bamboo flowsheet Adali Giordano FINANCIAL ENGINEER Work Phone: [facility] Start: 11-13-2023 End: 11-13-2023 Bamboo flowsheet Adali Giordano FINANCIAL ENGINEER Work Phone: [facility] Start: 11-13-2023 End: 11-13-2023 Postop follow up visit related to original px Adali Giordano FINANCIAL ENGINEER Work Phone: [facility] Comment on above: Arthritis of left kn ee (Primary Dx); S/P left knee arthroscopy Start: 11-13-2023 End: 11-13-2023 ambulatory ADALI GIORDANO Not Available Start: 10-16-2023 End: 10-16-2023 Bamboo flowsheet Adali Giordano FINANCIAL ENGINEER Work Phone: [facility] Start: 10-16-2023 End: 10-16-2023 Bamboo flowsheet Adali Giordano FINANCIAL ENGINEER Work Phone: [facility] Start: 10-16-2023 End: 10-16-2023 Postop follow up visit related to original px Adali Giordano FINANCIAL ENGINEER Work Phone: [facility] Comment on above: Arthritis of left kn ee (Primary Dx); S/P left knee arthroscopy Start: 10-16-2023 End: 10-16-2023 ambulatory ADALI GIORDANO Not Available Start: 10-08-2023 End: 10-08-2023 Refill Abhi Ramires FINANCIAL ENGINEER Work Phone: [facility] Comment on above: Post-op pain (Primar y Dx) Start: 09-10-2023 End: 09-10-2023 ambulatory DANIELLE Fish JOHN Not Available Start: 09-09-2023 Patient encounter procedure [facility] Start: 08-26-2023 End: 08-26-2023 ambulatory ADALI Pompa ANNETTE Not Available Start: 03-07-2023 End: 03-07-2023 ambulatory Laurita Morales Other [employer] Other Start: 03-07-2023 Office outpatient vi sit 15 minutes Laurita Morales [facility] Start: 09-20-2022 End: 09-20-2022 ambulatory Laurita Morales Other [employer] Other Start: 09-20-2022 Telephone encounter Laurita Morales [facility] Start: 09-04-2022 End: 09-04-2022 ambulatory Laurita Morales Other [employer] Other Start: 09-04-2022 Patient encounter procedure Laurita Morales [facility] Start: 04-19-[address] LAURITA MORALES Facil ity:[facility] Start: 03-01-2022 End: 03-01-2022 ambulatory Laurita Morales Other [employer] Other Start: 03-01-2022 Office outpatient vi sit 15 minutes Laurita Morales [facility] Start: 01-18-2022 End: 01-19-[address] LAURITA MORALES Facility:[facility] Start: 11-21-2021 End: 11-22-2021 ambulatory CAPRI FULLER Facility:[facility] Start: 11-08-2021 End: 11-08-2021 Patient encounter procedure Capri FULLER [facility] Start: 10-19-2021 End: 10-20-[address] LAURITA MORALES Facility:[facility] Start: 09-27-2021 End: 09-28-[address] LAURITA MORALES Facility:[facility] Start: 09-26-2021 End: 09-26-[address] LAURITA MORALES Facility:[facility] Start: 09-25-2021 Encounter for preprocedural laboratory examination DR RADHA IRAHETA [facility] Start: 09-22-2021 End: 09-23-[address] LAURITA MORALES Facility:[facility] Start: 09-22-2021 End: 09-23-2021 Encounter for preprocedural laboratory examination DR LAURITA MORALES Facility:[facility] Start: 09-11-[address] LAURITA MORALES Facil ity:[facility] Start: 09-06-2021 End: 09-07-2021 ambulatory ROBERTO MCNALLY Facility:[facility] Start: 08-30-2021 Adult health examination Malia Morales Other [employer] Other Start: 06-22-2021 End: 06-23-2021 ambulatory CAPRI FULLER Facility:[facility] Start: 05-31-2021 End: 05-31-2021 ambulatory Luis Gutierrez Facility:[facility] Start: 05-26-2021 End: 05-26-2021 ambulatory Laurita Morales Facility:[facility] Start: 05-26-2021 End: 05-26-2021 Patient encounter procedure MD Cy Sears Work Phone: [facility] Start: 05-22-2021 End: 05-23-[address] LAURITA MORALES Facility:[facility] Start: 05-10-2021 End: 05-10-2021 Patient encounter procedure Farooq SALAM [facility] Start: 05-04-2021 End: 05-04-2021 ambulatory Cy Sears Facility:[facility] Start: 05-04-2021 End: 05-04-2021 Patient encounter procedure MD Cy Sears Work Phone: [facility] [place] Start: 04-20-2021 End: 04-21-2021 ambulatory CAPRI FULLER Facility:[facility] Start: 04-01-2021 End: 04-02-[address] LAURITA MORALES Facility:[facility] Start: 03-23-2021 End: 03-24-[address] ALURITA MROALES Facility:[facility] Start: 03-09-2021 End: 03-10-[address] LAURITA MORALES Facility:[facility] Procedures Date Procedure Procedure Detail Performing Clinician Start: 06-24-2024 ALL BASIC METABOLIC PANEL Dolly ORR Work Phone: Start: 04-15-2024 Radiologic examination knee 1/2 views JrEtta Guerrero DO Work Phone: Start: 01-15-2024 Colonoscopy Adali Giordano NP Work Phone: Start: 01-15-2024 Colonoscopy Salazar [facility] Start: 01-15-2024 Esophagogastroduodenoscopy Martin Huff ini Start: 09-12-2023 Tear of meniscus of knee (disorder) Salazar [facility] Start: 09-04-2023 History of thyroidectomy Status post total thyroidectomy Abhi Ramires NP Work Phone: Start: 05-31-2021 Antibody screen Luis Gutierrez Comment on above: Order Comment: Transfuse now? N Result Comment: PERF ORMED BY: [facility] [address] [place] [address] PATHOLOGIST POLE FRAMER TRICIA OSHEA M.D. Start: 02-16-2020 Colonoscopy Abhi Ramires NP Work Phone: Start: 02-16-2020 Colonoscopy w/biopsy single/multiple Capri FULLER Colonoscopy Capri FULLER History of appendectomy Muha mmad [facility]ym[facility] History of thyroidectomy [facility] ammad Levymini Screening for malign ant neoplasm of breast Laurita Morales Other Plan of Treatment Date Care Activity Detail Author Start: 01-14-2034 Screening for malignant neoplasm of colon [facility] Start: 02-15-2030 Screening for malignant neoplasm of colon [facility] Start: 10-12-2024 Influenza vaccination Influenza Vacc ine (#1) [facility] Start: 09-30-2024 Patient referral [facility] Work Phone: Start: 08-20-2024 End: 08-20-2024 Patient encounter procedure [facility] Comment on above: S/P right knee arthr oscopy (Primary Dx) Start: 07-22-2024 End: 07-22-2024 Patient encounter procedure [facility] Comment on above: S/P right knee arthr oscopy (Primary Dx) Start: 07-21-2024 End: 07-21-2024 Patient encounter procedure 07/21/2024 11:15 AM EDT Office Visit [facility] [address] [place] [address] Dolly Veras PA [address] [place] [address] [facility] Start: 06-30-2024 End: 06-30-2024 ambulatory 06/30/2024 9:30 AM EDT Evaluation [facility] [address] [place] [id number] Sofia Bull, PT [facility] Start: 06-23-2024 End: 06-23-2025 Basic metabolic 1998 panel - Serum or Plasma Basic metabolic panel Lab Routine Pre-op examination Expected: 06/23/2024 (Approximate), Expires: 06/23/2025 [facility] Work Phone: Comment on above: Expected: 06/23/2024 (Approximate), Expires: 06/23/2025 Start: 06-23-2024 End: 06-23-2024 Patient encounter procedure [facility] Comment on above: Pre-op examination ( Primary Dx) Start: 05-13-2024 End: 05-13-2024 Patient encounter procedure [facility] Comment on above: Arrived Start: 04-15-2024 End: 04-15-2024 Patient encounter procedure 04/15/2024 2:15 PM EST Office Visit [facility] [address] [place] [address] Jr. Larissa Guerrero DO [address] [place] [address] Acute pain of left knee [facility] Comment on above: Acute pain of left k nee Start: 02-17-2024 End: 02-16-2025 MR Knee - left WO contrast MR knee left wo IV contrast Imaging Routine Internal derangement of left knee Expected: 02/17/2024 (Approximate), Expires: 02/16/2025 [facility] Work Phone: Comment on above: Expected: 02/17/2024 (Approximate), Expires: 02/16/2025 Start: 02-17-2024 End: 02-17-2024 Patient encounter procedure 02/17/2024 9:45 AM EST Office Visit [facility] [address] [place] [id number] Adali Giordano NP [address] [place] [address] S/P left knee arthroscopy (Primary Dx); Left knee pain, unspecified chronicity; Arthritis of left knee [facility] Comment on above: S/P [...] [facility] [address] [place] [phone] Abhi Ramires, FINANCIAL ENGINEER [address] [place] [address] Arrived [facility] Comment on above: Arrived Start: 11-13-2023 End: 11-13-2023 Patient encounter procedure [facility] Comment on above: Arthritis of left kn ee (Primary Dx); S/P left knee arthroscopy Start: 10-16-2023 End: 10-16-2023 Patient encounter procedure [facility] Comment on above: Arrived Start: 10-13-2023 Influenza vaccination Influenza Vacc ine (#1) [facility] Start: 10-09-2023 End: 10-09-2023 Patient encounter procedure 10/09/2023 11:30 AM EDT Procedure Visit [facility] Danielle Curran DO [address] [place] [address] [facility] Start: 1950 Screening for malignant neoplasm of colon [facility] Patient referral [facility] Work Phone: XR Lumbar spine Views [facility] Immunizations Immunization Date Immunization Notes Care Provider Fa anibal 11-13-2023 influenza virus vaccine, unspecified formulation Martin Tatum [facility] 12-03-2022 ABRYSVO - Respirator y syncytial virus (RSV), vaccine, bivalent, protein subunit RSV prefusion F, diluent reconstituted, 0.5 mL, PF Abhi Katie FINANCIAL ENGINEER Work Phone: [facility] 12-03-2022 SARS-COV-2 (COVID-19 ) vaccine, mRNA, spike protein, LNP, PF, 50 mcg/0.5 mL Abhi Ramires FINANCIAL ENGINEER Work Phone: [facility] 11-07-2022 Influenza, Seasonal, Quadrivalent, Adjuvanted Abhi Katie FINANCIAL ENGINEER Work Phone: [facility] 11-07-2022 influenza virus vaccine, unspecified formulation Abhi Katie FINANCIAL ENGINEER Work Phone: [facility] 10-01-2022 zoster vaccine recombinant Abhi Katie FINANCIAL ENGINEER Work Phone: [facility] 07-18-2022 zoster vaccine recombinant Abhi Ramires FINANCIAL ENGINEER Work Phone: [facility] 11-21-2021 influenza virus vaccine, unspecified formulation Salazar Levylucero [facility] 11-21-2021 Seasonal trivalent influenza vaccine, adjuvanted, preservative free Abhi Katie FINANCIAL ENGINEER Work Phone: [facility] 10-27-2021 SARS-CoV-2 (COVID-19 ) [id number] Martin Tatum [facility] Comment on above: Result Comment: 2023: [id number] 12-09-2020 COVID-19 mRNA-[id number] (Moderna) MD Cy Sears Work Phone: [facility] Comment on above: Result Comment: 2023: [id number] 11-15-2020 influenza virus vaccine, split virus (incl. purified surface antigen) Laurita Morales Other [employer] Other 11-15-2020 influenza virus vaccine, unspecified formulation Abhi Ramires FINANCIAL ENGINEER Work Phone: [facility] 11-11-2020 influenza virus vaccine, unspecified formulation Capri FULLER [facility] 04-26-2020 COVID-19 mRNA-[id number] (Moderna) MD Cy Sears Work Phone: [facility] 03-31-2020 SARS-CoV-2 (COVID-19 ) mRNA-1273 vaccine Salazar Sarmini [facility] 03-23-2020 COVID-19 mRNA-1273 (Moderna) MD Cy Sears Work Phone: [facility] 11-20-2019 influenza virus vaccine, split virus (incl. purified surface antigen) Laurita Morales Other [employer] Other 11-20-2019 influenza virus vaccine, unspecified formulation Abhi Ramires FINANCIAL ENGINEER Work Phone: [facility] 07-09-2018 zoster vaccine, live Abhi O sonalen FINANCIAL ENGINEER Work Phone: [facility] 11-20-2017 pneumococcal polysaccharide vaccine, 23 valent Abhi Katie FINANCIAL ENGINEER Work Phone: [facility] 11-14-2017 influenza virus vaccine, unspecified formulation Salazar Sarmini [facility] 11-14-2017 pneumococcal polysaccharide vaccine, 23 valent Abhi Katie FINANCIAL ENGINEER Work Phone: [facility] 11-14-2017 Seasonal trivalent influenza vaccine, adjuvanted, preservative free Abhi Ramires FINANCIAL ENGINEER Work Phone: [facility] 10-24-2016 influenza virus vaccine, split virus (incl. purified surface antigen) Laurita Morales Other [employer] Other 10-24-2016 influenza virus vaccine, unspecified formulation Salazar Sarmini [facility] 10-24-2016 influenza, high dose seasonal, preservative-free Abhi Ramires FINANCIAL ENGINEER Work Phone: [facility] 10-24-2016 pneumococcal conjuga te vaccine, 13 valent Laurita Morales Other [facility] [employer] Other 11-08-2015 influenza virus vaccine, unspecified formulation Salazar Sarmini [facility] 11-08-2015 Seasonal trivalent influenza vaccine, adjuvanted, preservative free Abhi Ramires NP Work Phone: [facility] 11-16-2014 influenza virus vaccine, unspecified formulation Salazar Sarmini [facility] 11-16-2014 influenza, seasonal, injectable, preservative free Abhi Ramires NP Work Phone: [facility] 08-31-2014 tetanus and diphther ia toxoids, adsorbed, preservative free, for adult use (5 Lf of tetanus toxoid and 2 Lf of diphtheria toxoid) Abhi Ramires NP Work Phone: [facility] 08-31-2014 tetanus toxoid, reduced diphtheria toxoid, and acellular pertussis vaccine, adsorbed Laurita Morales Other [facility] [employer] Other 11-30-2013 pneumococcal polysaccharide vaccine, 23 valent Laurita Morales Other [facility] [employer] Other 03-24-2013 zoster vaccine, live Abhi daly NP Work Phone: [facility] 11-11-2012 influenza virus vaccine, unspecified formulation Salazar Levymini [facility] 11-11-2012 influenza, seasonal, injectable Abhi Ramires NP Work Phone: [facility] 01-29-2003 hepatitis B vaccine, adult dosage Abhi Ramires NP Work Phone: [facility] 08-10-2002 hepatitis B vaccine, adult dosage Abhi Ramires NP Work Phone: [facility] 07-08-2002 hepatitis B vaccine, adult dosage Abhi Ramires NP Work Phone: [facility] 07-08-2002 TD(adult) unspecifie d formulation; Translations: [Td(adult) unspecified formulation] Abhi Ramires FINANCIAL ENGINEER Work Phone: [facility] NEGATED: Highlighted row has not occurred!11-08-2021 influenza virus vaccine, unspecified formulation [facility] Payers Date Payer Category Payer Self-pay [id number] 2021 Private Health Insurance [id number] 2021 Private Health Insurance CLI [id number] 2013 Medicare [id number] 1959 Medicare [id number] 1959 Unknown [id number] 1948 Unknown [id number] 2.16.84 0.1.374525.3.579.2.593 1948 Unknown [id number] 2.16.84 0.1.682636.3.579.2.593 1948 Unknown [id number] 2.16.84 0.1.389632.3.579.2.593 1948 Unknown [id number] 2.16.84 0.1.704312.3.579.2.593 1948 Unknown [id number] 2.16.84 0.1.828169.3.579.2.593 1948 Unknown [id number] 2.16.84 0.1.172291.3.579.2.593 1948 Unknown [id number] 2.16.84 0.1.533934.3.579.2.593 1948 Unknown [id number] 2.16.84 0.1.812242.3.579.2.593 1948 Unknown [id number] 2.16.84 0.1.198049.3.579.2.593 1948 Unknown [id number] 2.16.84 0.1.233328.3.579.2.593 1948 Unknown [id number] 2.16.84 0.1.601306.3.579.2.593 1948 Unknown [id number] 2.16.84 0.1.755497.3.579.2.593 1948 Unknown [id number] 2.16.84 0.1.112941.3.579.2.593 1948 Unknown [id number] 2.16.84 0.1.187809.3.579.2.593 1948 Unknown [id number] 2.16.84 0.1.829529.3.579.2.593 1948 Unknown [id number] 2.16.84 0.1.919612.3.579.2.593 1948 Unknown [id number] 2.16.84 0.1.248018.3.579.2.593 1948 Unknown [id number] 2.16.8 40.1.686661.3.579.2.727 1948 Unknown [id number] 2.16.8 40.1.555330.3.579.2.727 1948 Unknown [id number] 2.16.8 40.1.870136.3.579.2.727 1948 Unknown [id number] 2.16.8 40.1.061203.3.579.2.727 1948 Unknown [id number] 2.16.8 40.1.081312.3.579.2.1259 1948 Unknown [id number] 2.16.8 40.1.561651.3.579.2.1259 1948 Unknown [id number] 2.16.84 0.1.410164.3.579.2.125 1948 Unknown [id number] 2.16.84 0.1.224650.3.579.2.1259 1948 Unknown [id number] 2.16.84 0.1.724739.3.579.2.9 1948 Unknown [id number] 2.16.84 0.1.525307.3.579.2.1259 1948 Unknown [id number] 2.16.84 0.1.442866.3.579.2.1258 1948 Unknown [id number] 2.16.84 0.1.410883.3.579.2.1259 1948 Unknown [id number] 2.16.84 0.1.736194.3.579.2.1258 1948 Unknown [id number] 2.16.84 0.1.994672.3.579.2.1259 1948 Unknown [id number] 2.16.84 0.1.620706.3.579.2.125 1948 Unknown [id number] 2.16.84 0.1.099134.3.579.2.1259 1948 Unknown [id number] 2.16.84 0.1.038937.3.579.2.1258 1948 Unknown [id number] 2.16.84 0.1.582808.3.579.2.1259 1948 Unknown [id number] 2.16.84 0.1.047144.3.579.2.1258 1948 Unknown [id number] 2.16.84 0.1.684695.3.579.2.1259 1948 Unknown [id number] 2.16. 840.1.684199.3.579.2.196 1948 Unknown [id number] 2.16. 840.1.572909.3.579.2.196 Medicare [id number] Unknown [id number] 2.16.8 40.1.931711.3.579.2.531 Unknown [id number] 2.16.8 40.1.219685.3.579.2.531 Unknown [id number] 2.16.8 40.1.441882.3.579.2.531 Social History Date Type Detail Facility Tobacco smoking stat [facility] Unknown if ever smoked [facility] Work Phone: Start: 1950 Sex Assigned At Female [facility] Start: 05-10-2021 End: 03-20-2024 Tobacco smoking status Heavy tobacco smoker (finding) [facility] Start: 09-10-2023 End: 07-22-2024 Sex Assigned At Female [facility] Start: 05-26-2021 [facility] Start: 08-26-2023 End: 09-30-2024 Tobacco smoking status NMIS Smokes tobacco daily [facility] History of tobacco use Cigarette Smoker [facility] Start: 08-26-2023 Tobacco use and exposure Smokeless tobacco non-user [facility] Start: 09-10-2023 End: 08-20-2024 Alcoholic beverage intake Current drinker of alcohol (finding) [facility] Start: 09-10-2023 End: 07-22-2024 History of Social function [facility] Start: 1950 Sex assigned at Not on file [facility] Tobacco smoking status Never [facility] Start: 03-12-2023 Tobacco smoking stat us [facility] Ex-smoker (finding) [facility] Start: 04-21-2024 Sex Female (finding) [facility] Start: 06-23-2024 Alcohol Comment Occationally [facility] Functional Status Date Assessment Result Facility 03-20-2024 Functional Status N/A [facility] 01-30-2024 Functional Status N/A [facility] 01-15-2024 Functional Status N/A [facility] 12-04-2023 Functional Status N/A [facility] 11-08-2021 Functional Status N/A [facility] Clinical Notes 01-24-2021 to 08-20-2024 DOMINGA Monroy - 08/20/2024 9:30 AM EDTMattDOMINGA Hernández - 07/22/2024 11:15 AM EDTPatient InstructionsTelephone Encounter - Abhi Ramires NP - 07/03/2024 7:17 AM EDTLaboratory Note Date & Type Note Facility 08-20-2024 History of Present illness Narrative Images from the original note were not included. Orthopedic Office note: NAME: Alexandra Cervantes : 1950 (EST PT) - P/O (R) KNEE SCOPE @[facility] 07/07/24 (6 WKS, 2 DAYS) DENIES DISCOMFORT - POSTERIOR DISCOMFORT HAS RESOLVED. NO HEP. CAN BUCKLE - ADMITS INSTABILITY. DENIES WEAKNESS. ADMITS STIFFNESS AFTER PROLONGED SITTING / RESTING. DENIES N/T / SWELLING. DENIES WAKING HS. DENIES POPPING / GRINDING. GABAPENTIN (FOOT PAIN). DENIES ICING / HEATING. ADMITS ONGOING (R) FOOT DISCOMFORT - STATES SHE WENT TO PAIN MGMT - HAD A LOW BACK INJECTION - DENIES IMPROVEMENT. WAS REFERRED TO ORTHOPEDIC SX / PLACED ON GABAPENTIN 200MG. Knee Musculoskeletal Exam Gait Gait is normal. Inspection Leg length disparity: no discrepancy Right Erythema: none Effusion: none Edema: none Ecchymosis: none Deformity: none Alignment: normal Previous incision: arthroscopic portals Incision: well-healed Palpation Right Right knee palpation is unremarkable. Increased warmth: none Masses: none Tenderness: none Range of Motion Right Right knee range of motion is normal and full. Active extension: 0 Passive extension: 0 Active flexion: 125 Passive flexion: 125 Strength Right Right knee strength is normal. Extension: 5/5. Flexion: 5/5. Instability Right Instability signs: none - stable Varus stress grade: normal Valgus stress grade: normal Anterior drawer: normal Medial Celestine test: negative Lateral Celestine test: negative Neurovascular Right Right knee neurovascular exam is normal. Pulses - PT: normal Posterior tibial: 2+ Capillary refill: warm and well-perfused Special Signs Right Right knee special signs are normal. Patellar apprehension: none General Constitutional: appears stated age Labored breathing: no Psychiatric: normal mood and affect Neurological: alert Skin: intact Lymphadenopathy: none No orders of the defined types were placed in this encounter. Procedures Results ICD-10-CM 1. S/P right knee arthroscopy Z98.890 S/p TPHMM, TPHLM, CPMFC-2, CPLFC-3, CDFT-2 Assessment & Plan Status post right knee arthroscopy She is doing well post-surgery, walking without significant pain or discomfort. She is very pleased with the outcome of her surgery. She will contact us for any follow-up needs if symptoms arise. Possible pinched nerve in the back She has appointments coming up with neurosurgery to discuss a possible pinched nerve in her back causing her ankle and foot pain. She has pain in the top part of her foot that radiates up into her garcia. She has been treated for this issue for approximately 1 year, seeing Dr. Marino and podiatry in [place] before being diagnosed with a pinched nerve in her back and seeing pain management. A consultation with podiatry was discussed as a potential next step. Follow-up: She will contact us for any follow-up needs if symptoms arise. PROCEDURE Procedure Performed Right knee arthroscopy Questions answered in laymen terms at the bedside. The diagnosis, home exercise plan and any ongoing restrictions/ recommendations reviewed. If unable to be reached in office, I recommend evaluation at nearest Emergency Room if any symptoms worsened or new symptoms develop for requiring urgent evaluation. Visit was preformed using [employer]-engine pilot speech recognition. documented in this encounter [facility] 07-22-2024 History of Present illness Narrative Images from the original note were not included. Orthopedic Office note: NAME: Alexandra Cervantes : 1950 1ST PO RT KNEE SCOPE 07/07/24 (2 WKS 1 DAY) @ [facility]. PAIN POSTERIOR KNEE, MOST OF THE TIME. +ALEVE. DOING SOME HEP. +ICE. DENIES N/T, SWELLING. DENIES POPPING, GRINDING. DENIES GIVING OUT, BUT STATES SHE IS CAREFUL. DOES NOT WAKE AT HS. DENIES DRAINAGE. STITCHES INTACT, REMOVED TODAY. INCISIONS HEALING WELL. HAS BEEN HAVING RT FOOT PAIN FOR THE LAST 2 YRS. HAS BEEN GOING TO PAIN MGMT, THEY SAY IT IS HER BACK. WONDERING IF SHE CAN GET DIRECTION ON WHERE TO GO. Right Knee Exam Right knee exam is normal. Tenderness Right knee tenderness location: Compartments soft. Range of Motion The patient has normal right knee ROM. Right knee flexion: tightness on terminal flexion. Other Erythema: absent Scars: present (Portals well healing, sutures removed, no erythema, drainge or discharge, no dehisence) Sensation: normal Pulse: present Swelling: mild Effusion: effusion (consistent with surgery) present Comments: Operative lower extremity was noted to be neurovascularly intact. Patient was able to motor feet, toes and ankles in all anatomic planes bilaterally with 5 out of 5 strength. Operative knee's patellar tracking was optimal and quad/ham strength was 5 out of 5 to operative lower extremity. There was no varus valgus, anterior-posterior, or rotatory instability noted to the operative knee. Swelling was well controlled, patella was not ballotable and compartments were soft to the operative lower extremity. Dorsalis pedis and posterior tibial pulses were present and equal bilaterally. There was no evidence of infection or ascending lymphangitis to operative lower extremity. Sensation to light touch was intact to all dermatomes to bilateral lower extremities. Negative Homans and negative Biju were noted bilaterally to lower extremities. Incision was healing without evidence of infection No orders of the defined types were placed in this encounter. Procedures Results ICD-10-CM 1. S/P right knee arthroscopy Z98.890 S/p TPHMM, TPHLM, CPMFC-2, CPLFC-3, CDFT-2 Assessment & Plan Postoperative status following right knee arthroscopy. She had debridement of medial and lateral meniscus tears. Her symptoms include mild discomfort likely from postoperative effusion that is consistent with arthroscopy. There are no signs or symptoms of infection. She spends more time discussing nerve pain that runs down her leg with prolonged standing and gives her pain in the bottom or on the top of her foot. She has had prior pain management injections in her back with relief of this symptom. We are encouraging her to go back to pain management to discuss additional treatment options. Follow-up: The patient will follow up in 3 weeks to reassess her knee progress. PROCEDURE Procedure Performed Right knee arthroscopy with debridement of medial and lateral meniscus tears. Questions answered in laymen terms at the bedside. The diagnosis, home exercise plan and any ongoing restrictions/ recommendations reviewed. If unable to be reached in office, I recommend evaluation at nearest Emergency Room if any symptoms worsened or new symptoms develop for requiring urgent evaluation. Visit was preformed using [employer]-engine pilot speech recognition. documented in this encounter [facility] 07-22-2024 Instructions DOMINGA Monroy - 07/22/2024 11:15 AM EDT Discussed surgery for knee arthroscopy: Recommend no deep squatting, no pivoting or rotation... Recommend no running, jumping or high impact.. Avoid kneeling Cont with ice and elevation, 20 minutes on and 20 minutes off for 1 hour 2-3 times day. Be mindful of swelling pending increasing activities... consider sleeve or kt wrap if up for more than 10 mins documented in this encounter [facility] 07-03-2024 Telephone encounter Note Post op pain rx. PDMP reviewed [facility] 07-03-2024 Miscellaneous Notes Post op pain rx. PDMP reviewed documented in this encounter [address]13-2025 History of Present illness Narrative Images from the original note were not included. GENERAL HISTORY AND PHYSICAL: NAME: Alexandra Cervantes : 1950 HISTORY OF PRESENT ILLNESS: Alexandra Cervantes is an 74 y.o. @ female. Here for surgery instructions right knee scope July 07 @ [facility]. PAST MEDICAL HISTORY: Past Medical History: Diagnosis Date Depression (CMS/HCC) GERD (gastroesophageal reflux disease) Hypercholesterolemia (CMS/HCC) Hypothyroid (CMS/HCC) PAST SURGICAL HISTORY: Past Surgical History: Procedure Laterality Date APPENDECTOMY CARPAL TUNNEL RELEASE Bilateral COLONOSCOPY 01/15/24 KNEE ARTHROSCOPY W/ DEBRIDEMENT Left MAXWELL OTHER SURGICAL HISTORY Right TAMICA CORONA PUT IN PINKY FINGER TUBAL LIGATION SOCIAL HISTORY: Social History Occupational History Not on file Tobacco Use Smoking status: Every Day Types: Cigarettes Smokeless tobacco: Never Substance and Sexual Activity Alcohol use: Yes Comment: Occationally Drug use: Never Sexual activity: Not on file ALLERGIES: Allergies Allergen Reactions Varenicline Bad dreams MEDICATIONS: Current Outpatient Medications Medication Instructions ALPRAZolam (XANAX) 0.5 mg, Nightly PRN busPIRone (BUSPAR) 15 mg, 2 times daily escitalopram (LEXAPRO) 20 mg, Daily ibuprofen (Advil) 200 MG tablet Every 8 hours levothyroxine (Synthroid, Levoxyl) 75 MCG tablet Every 24 hours mesalamine (Lialda) 1.2 g EC tablet Misc. Devices misc Dispense: Front Wheeled walker use 90 days. Ht: 4'11 Weight: 159lb omeprazole (PriLOSEC) [address] capsule simvastatin (ZOCOR) 40 mg, Nightly sulfaSALAzine (AZULFIDINE) 500 mg, Every 24 hours zonisamide (Zonegran) 50 MG capsule TAKE TWO CAPSULES BY MOUTH DAILY AT BEDTIME REVIEW OF SYSTEMS: Review of Systems Constitutional: Negative for fatigue, fever and unexpected weight change. Eyes: Negative for redness and visual disturbance. Gastrointestinal: Negative for abdominal pain. Denies Indigestion Musculoskeletal: See note: Skin: Negative for color change and rash. Neurological: Negative for light-headedness and numbness. Vitals: Body mass index is 32.11 kg/m . PHYSICAL EXAM: Physical Exam Constitutional: General: She is not in acute distress. Appearance: Normal appearance. HENT: Head: Normocephalic and atraumatic. Right Ear: External ear normal. Left Ear: External ear normal. Nose: Nose normal. No rhinorrhea. Mouth/Throat: Mouth: Mucous membranes are moist. Pharynx: No posterior oropharyngeal erythema. Eyes: Extraocular Movements: Extraocular movements intact. Conjunctiva/sclera: Conjunctivae normal. Cardiovascular: Rate and Rhythm: Normal rate and regular rhythm. Pulses: Normal pulses. Heart sounds: No murmur heard. Pulmonary: Effort: Pulmonary effort is normal. No respiratory distress. Breath sounds: Normal breath sounds. No wheezing or rhonchi. Abdominal: Palpations: Abdomen is soft. Tenderness: There is no abdominal tenderness. Musculoskeletal: Cervical back: Normal range of motion and neck supple. Lymphadenopathy: Cervical: No cervical adenopathy. Skin: General: Skin is warm and dry. Findings: No erythema or rash. Neurological: General: No focal deficit present. Mental Status: She is alert and oriented to person, place, and time. Psychiatric: Mood and Affect: Mood normal. Behavior: Behavior normal. Orders Placed This Encounter Procedures Basic metabolic panel Standing Status: Future Number of Occurrences: 1 Expected Date: 06/23/2024 Expiration Date: 06/23/2025 Print requisition?: No Ambulatory referral to Physical Therapy PRE HAB FOR RT KNEE SCOPE 07/07/24 - HAS NOT USED WALKER BEFORE Standing Status: Future Expected Date: 06/23/2024 Expiration Date: 12/24/2024 Referral Priority: Routine Referral Type: Consultation Referral Reason: Consult and Treat Referred to Provider: Jason Gifford PT Requested Specialty: Physical Therapy Number of Visits Requested: 1 ASSESSMENT: ICD-10-CM 1. Pre-op examination Z01.818 Basic metabolic [facility] Ambulatory referral to Physical Therapy Discussed patient's need for a front wheel walker: The patient has mobility limitations that significantly impair their ability to participate in activities of daily living without the risk of fall. The patient would benefit from this walker to reasonably complete activities of daily living such as prepping and cooking meals, grocery shopping , getting too and from the bathroom in an acceptable timeframe given current limitations. To prevent risk of fall patient can not use crutches safely as an alternative. As the patient is considered a fall risk, the utilization of a front-wheeled walker would mitigate the risk for height morbidity and mortality secondary to the possibility of fall. After further discussion at bedside the patient is able to safely use a walker in the benefit of walker use would improve her functional mobility to resolve deficit discussed above in her diagnosis. PLAN:This patient presents for preadmission testing for upcoming surgery. Complete history with medical, surgery, and current allergy and medication list obtained. Consent for surgery signed and witnessed after verbal consent to perform surgery received. All questions answered and proposed surgery scheduled. WALKER SENT TO [employer] [facility] [facility] [place] [facility] WORK SENT TO [facility] PRE AUTH MEDICARE APPROVED Follow up in about 4 weeks (around 07/21/2024) for Post-Op July 22 @ 11:15 in the [place] location with Dolly Veras. documented in this encounter [facility] 05-13-2024 History of Present illness Narrative Images from the original note were not included. Jennifer appreciatedHISTORY OF PRESENT ILLNESS: EST PT Alexandra Cervantes is an 74 y.o. @ female. (EST PT) - RECHECK (R) KNEE ; S/P MDP 04/15/24 ; S/P [facility] 04[facility]24/[facility] : ADMITS B/L KNEE PAIN - R>L XRAY B/L KNEE 08/26/23 IN EPIC MRI @[facility] 04/24/24 MDP 04/15/24 NO CORTISONE INJ NO PT PAIN MGMT @[facility] (BACK) (R) KNEE: S/P MDP - WITH RELIEF - HAS WORN OFF SINCE FINISHING RX. DISCOMFORT AROUND PATELLA / POSTERIOR. UNSURE OF SWELLING. DENIES SYMPTOMS PRIOR TO INJURY. RADIATING INTO THIGH AND LOWER LEG. DENIES N/T. ADMITS STIFFNESS / TIGHTNESS AT THE END OF THE DAY. DENIES WAKING HS D/T KNEE PAIN - TROUBLE SLEEPING IN GENERAL. DENIES POPPING / CLICKING / GRINDING / GIVING OUT. ADMITS HEATING PRN - SOME RELIEF. ALEVE PRN / TYL PRN - SOME RELIEF. VOLTAREN - NO RELIEF. ICY HOT - SOME RELIEF. ADMITS STILL HAVING ACHING DISCOMFORT TO THE (L) KNEE. RONDA: 03/2024 - (R) KNEE BUCKLED HX (L) KNEE SCOPE 10/09/23 (DR. CURRAN) [...] none Tenderness: present Medial joint line: moderate Medial retinaculum: mild Range of Motion Right Right knee range [...] to calculate BMI. Tobacco Use: High Risk (05/13/2024) Patient History Smoking Tobacco Use: Every Day Smokeless Tobacco Use: Never Passive Exposure: Not on file Alcohol Use: Not on file IMAGING: Procedures No orders of the defined types were placed in this encounter. ASSESSMENT: No diagnosis found. PLAN: Complex tear anterior Horn of medial meniscus noted on MRI from [facility]. Questions answered in laymen terms at the bedside. The diagnosis, home exercise plan and any ongoing restrictions/ recommendations reviewed. If unable to be reached in office, I recommend evaluation at nearest Emergency Room if any symptoms worsened or new symptoms develop for requiring urgent evaluation. documented in this encounter [facility] 03-18-2024 History of Present illness Narrative Images from the original note were not included. HISTORY OF PRESENT ILLNESS: EST PT Alexandra Cervantes is an 74 y.o. @ female. (EST PT) (LAST APPT WITH TUNRER) - RECHECK (L) KNEE S/P MRI @[facility] (02/25/24) ; S/P (L) KNEE SCOPE (DR. CURRAN) (10/09/23) (5 MONTHS, 1 WK, 1 DAY) XRAY B/L KNEE 08/26/23 IN EPIC XRAY (L) KNEE (02/09/23) IN CHANGE MRI @[facility] 02/25/24 MDP 12/31/23 (50% IMPROVEMENT) CORTISONE INJ (01/20/24) (70-80% IMPROVEMENT) NO PT PAIN MANAGEMENT @ [facility] (BACK) STATES INJECTION 01/20/24 ONLY LASTED 2-3 [...] requiring urgent evaluation. documented in this encounter [facility] 03-02-2024 Miscellaneous Notes Patient called and left requesting a call for here MRI results. documented in this encounter [facility] 03-02-2024 Telephone encounter Note Patient called and left requesting a call for here MRI results. [facility] 02-17-2024 History of Present illness Narrative HISTORY OF PRESENT ILLNESS: Alexandra [...] f/u s/p MRI to be done at [facility] documented in this encounter [facility] 01-30-2024 Evaluation + Plan note Future Scheduled TestsCalprotectin, Fecal 01/30/24Calprotectin, Fecal 03/17/24Clostridium Difficile PCR 03/17/24Quantiferon-TB Plus (Client Incubated) 03/17/24Enteric Panel by PCR 03/17/24CBC w/ Auto Diff 03/20/24CBC w/ Auto Diff 03/17/24Comprehensive Metabolic Panel 03/20/24Comprehensive Metabolic Panel 03/17/24C-Reactive Protein 03/20/24C-Reactive Protein 03/17/24Hepatitis B Surface Antibody 03/17/24Hepatitis B Surface Antigen 03/17/24 [facility] 01-20-2024 History of Present illness Narrative HISTORY OF PRESENT ILLNESS: Alexandra [...] she understands this. documented in this encounter [facility] 01-15-2024 Hospital Discharge instructions Patient Education 01/15/2024 13:05:31 Gastritis, Adult, Hbtr-wd-Acyu Gastritis, Adult Gastritis is irritation and swelling [...] Follow these instructions at home: Medicines Take wgvy-cur-qcaljzd and prescription medicines only as told by [...] provider. Document Revised: 06/03/2021 Document Reviewed: 06/03/2021 [employer] Patient Education 2023 [employer]. 01/15/2024 13:05:27 Endoscopy, Care After Procedure [facility] Endoscopy Care After Procedure Please read the [...] blood. Document Released: 09/11/2004 Document Re-Released: 07/22/2006 [facility] Patient Information 2010 [employer]. 01/15/2024 13:05:22 Hemorrhoids, Jaow-he-Kvrq Hemorrhoids Hemorrhoids are swollen veins that may [...] Follow these instructions at home: Medicines Take nepf-rsv-pyoxkhy and prescription medicines only as told by [...] provider. Document Revised: 10/10/2022 Document Reviewed: 10/10/2022 [employer] Patient Education 2023 [employer]. 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 Stay up to date on your vaccinations, [...] information about ulcerative colitis at the National [place] of Diabetes and Digestive and Kidney Diseases [...] provider. Document Revised: 10/04/2020 Document Reviewed: 10/04/2020 [employer] Patient Education 2023 [employer]. 01/15/2024 13:05:09 Colonoscopy, Care After Surgery Salam [...] severe or gets worse throughout the day. [facility] 01-15-2024 Evaluation + Plan note Extrac javier from: Title:ANES Post-operative Note---General Author: Danielle Garcia MD. Date:01/15/24 Plan Transfer/Discharge: Transfer/Discharge Discharge when meets criteria ( To home ). Extracted from: Title:ANES Pre-operative Note 2022 Author:Danielle Ha Date:01/15/24 Plan [place] [employer]hes[employer] (ASA) physical status classification: Class II. Anesthetic Preoperative Plan: Anesthesia General. Extracted from: Title:1Preop H&P Author:Martin Tatum MD Date:01/15/24 Impression and Plan Impression: Ulcerative colitis, chronic diarrhea Plan: -EGD and Colonoscopy Future Appointments Appointment Date:01/30/2024 01:45:00 PM Scheduled Provider:Martin Tatum MD Location[facility]ment Type:[facility] Follow Up Diagnostic Tests Pending * Enteric Panel by PCR 01/15/24 * Clostridium Difficile PCR 01/15/24 * Hep B Core Ab, Tot 01/15/24 * Hepatitis B Surface Antibody 01/15/24 * Hepatitis B Surface Antigen 01/15/24 * Quantiferon-TB Plus (Client Incubated) 01/15/24 [facility] [id number] History of Present illness Narrative* Abhi Ramires, [...] develop for requiring urgent evaluation. 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 documented in this [facility]08-28-2024 History of Present illness Narrative* Adali Giordano [...] as tolerated, f/U prn documented in this [facility]08-28-2024 History of Present illness Narrative* Jr. Larissa Guerrero DO - 04/15/2024 2:15 PM EST Images from [...] XRAY (L) KNEE (02/09/23) IN CHANGE MRI @[facility] 02/25/24 [facility]DP 12/31/23 (50% IMPROVEMENT) CORTISONE INJ [...] for requiring urgent evaluation. documented in this [facility]08-27-2024 Telephone encounter Note* Telephone Encounter - Abhi Ramires NP - 10/08/2023 3:02 PM EDT Post op pain rx. PDMP reviewed [id number] Miscellaneous Notes* Telephone Encounter - Abhi Ramires NP - 10/08/2023 3:02 PM EDT Post op pain rx. PDMP reviewed documented in this [facility]01-25-2024 Evaluation note* Encounter Date Diagnosis Assessment Notes [...] continue to monitor through routine blood work [facility] 08-10-2023 Evaluation note* Encounter Date Diagnosis Assessment Notes Treatment Notes Treatment Clinical Notes Sep, Right foot pain (ICD-10 - M79.671) [facility] 07-25-2023 Evaluation note* Encounter Date Diagnosis [...] - E03.9) Chronic problem due for labs. [facility] 01-19-2023 Evaluation note* Encounter Date Diagnosis [...] - E78.5) Due for labs in summer. [facility] [id number] NoteCONSULTATION PROCEDURE DATE: 01/18/2022 PREOPERATIVE DIAGNOSIS: Left [...] be followed up in the office.[facility] [id number] NoteCONSULTATION CONSULTATION DATE: 01/18/2022 HISTORY OF PRESENT [...] three months' time, unless otherwise indicated.[facility] [id number] Evaluation + Plan note Diagnostic Tests Pending * CBC w/ Auto Diff 11/08/21 * Comprehensive Metabolic Panel 11/08/21 [facility] 09-08-2022 NoteCONSULTATION PROCEDURE DATE: 11/16/2021 [...] be followed up in the office.[facility] 10-19-2021 NoteCONSULTATION CONSULTATION DATE: 10/19/2021 This [...] three months' time unless otherwise indicated.[facility] [id number] NoteCONSULTATION CONSULTATION DATE: 09/06/2021 HISTORY OF PRESENT [...] and patient agrees to move forward.[facility] [id number] NoteCONSULTATION PAIN MANAGEMENT CONSULTATION HISTORY: This is [...] of care and will call when needed. [facility] Signed and Approved by: ROBERTO MCNALLY . 04/27/2021 12:41:00[facility]12-14-2021 Hospital Discharge instructions Follow Up Care 01/24/2021 10:04:31 With:JANINA ALARCON, LENORE Farooq, [facility] Address: [facility] [address] [place], [place] [address]dict [place] [address]- When:6 months [facility] Evaluation + Plan note Future Appointments Appointment Date:11/08/2021 10:15:00 AM Scheduled Provider:Capri FULLER MD Location[place] Appointment Type:BAD Follow Up Future Scheduled Tests Laboratory* CBC w/ Indices 07/25/20 * Comprehensive Metabolic Panel 07/25/20 [facility] evaluation + Plan note Future Appointments Appointment Date:01/15/2024 12:00:00 PM Scheduled Provider: Location:[facility] Appointment Type:Surgery FT Appointment Date:01/30/2024 01:45:00 PM Scheduled Provider:Martin Tatum MD Location:[facility] Appointment Type:BAD Follow Up Future Scheduled Tests Laboratory* O & P Exam, Routine 12/04/23 * Clostridium Difficile PCR 12/04/23 * Enteric Panel by PCR 12/04/23 [facility] evaluation + Plan note Future Appointments Appointment Date:01/15/2024 12:00:00 PM Scheduled Provider: Location:[facility] Appointment Type:Surgery FT Appointment Date:01/30/2024 01:45:00 PM Scheduled Provider:Martin Tatum MD Location:[facility] Appointment Type:[facility] Follow Up Diagnostic Tests Pending * Celiac Disease Comprehensive 12/04/23 Future Scheduled Tests Laboratory* O & P Exam, Routine 12/04/23 * Clostridium Difficile PCR 12/04/23 * Enteric Panel by PCR 12/04/23 [facility] evaluation + Plan note Future Appointments Appointment Date:01/15/2024 12:00:00 PM Scheduled Provider: Location:[facility] Appointment Type:Surgery FT Appointment Date:01/30/2024 01:45:00 PM Scheduled Provider:Martin Tatum MD Location[place] Appointment Type:BAD Follow Up Diagnostic Tests Pending * O & P Exam, Routine 12/06/23 [facility] evaluation + Plan note Future Appointments Appointment Date:04/29/2024 09:15:00 AM Scheduled Provider:Martin Tatum MD Location[place] Appointment Type:[facility] Follow Up Future Scheduled Tests Laboratory* Calprotectin, Fecal 01/30/24 [facility] Evaluation noteNo assessment information available [facility] [place] [facility] Work Phone: Evaluation note* Diagnosis Arthritis of [...] pancoli tis without complications acute April 8:49am [facility] Work Phone: Evaluation note* Diagnosis Acute pain of right knee- Primary Acute medial meniscus tear of right knee, initial encounter [facility] Diagnosis Pre-op examination- Primary [facility]* Diagnosis Pre-op examination- Primary Localized osteoarthritis of right knee [facility]* Diagnosis Acute medial meniscus tear of right knee, initial encounter- Primary [facility]* Diagnosis S/P right knee arthroscopy- Primary [facility]* Diagnosis S/P right knee arthroscopy- Primary documented in this encounter [facility]* Diagnosis Onset Date Resolution Status Admit Date Right foot pain acute September 302024 9:36am [facility] Work Phone: History general Narrative - Reported* Type Description Date Medical History GERD Medical History Hypothyroid Medical History Depression Surgical History Appendectomy Surgical History Tubal Ligation Surgical History Right carpal tunnel Surgical History Right finger Surgical History 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 Hospitalization History See past surgical hx [facility] Hospital course Narrative No data available for this section [facility] Hospital Discharge instructions No data available for this section [facility] Hospital Discharge instructionsAmbulatory Orders* Referral to Neurology Time Frame: 09/30/24, Location: None Selected [facility] Work Phone: Progress note No data available for this section [facility] Reason for visit Narrative* Consultation (Routine) - Authorized Specialty Diagnoses / Procedures Referred By Rosi wilson Referred To Contact Physical Therapy Diagnoses Pre-op examination Procedures WA OFFICE/OUTPATIENT [facility] MDM 60 MINUTES Dolly Veras PA [address] [address] Phone: tel: fax: Sofia Bull PT Referral ID Status Reason Start Date Expiration Date Visits Requested Visits Authorized [id number] Authorized Consult and Treat 06/23/2024 12/20/2024 10 10 [facility] Chief Complaint and Reason for Visit Chief Complaint Esophageal Mass Chief Complaint Esophageal Mass Right Substernal Thyroid Goiter Chief Complaint Admit Date 6 month f/u April 21, 2024 8:4 9am Reason for Visit Admit Date Anxiety April 21, 2024 8:4 9am Ulcerative (chronic) pancolitis without complications April 21, 2024 8:49am Chief Complaint Admit Date SCIATICA -RIGHT SIDE September 30, 2024 9 :36am Reason for Visit Admit Date Right foot pain September 30, 2024 9: 36am Advance Directives Advance Directive Response Recorded Date/ Time Advance Directives No May 03, 9:14am Advance Directive Response Recorded Date/ Time Advance Directives No August 26 11:31am Summary Purpose Family History Relationship Condition Age at Onset Recorded Date/T michelle father Diabetes mellitus Unknown Cerebrovascular accident (CVA) Unknown Relationship Condition Age at Onset Recorded Date/T michelle father Diabetes mellitus Unknown Cerebrovascular accident (CVA) Unknown Unknown mother Unknown Reason for Referral Reason *FU 09/27 R foot p ain. Had Xray Diagnosis 1 Right foot pain (M79 .671) Referral Organization [facility] Referring Provider First Name Laurita Referring Provider Last Name Carmen Referring Provider Specialty Family [facility] Referred Organization [facility] Referred Provider Seymour Johnson Referred Address [address] [place], [place],[address] Referred Provider Specialty Podiatry - S urgical [...] Active Luis Gutierrez DO Attending Provider Active Gluing Machine Operator Automatic Relationship Specialty Start Date End Date Laurita Morales MD [address] [place] [phone] PCP - General Family Medicine 08/26/23 Gluing Machine Operator Automatic Relationship Specialty [place] [address] [place] [phone] PCP - General Family Medicine 08/26/23 Gluing Machine Operator Automatic Relationship Specialty Start [place] [address] [place] [phone] PCP - General Family Medicine 08/26/23 Gluing Machine Operator Automatic Relationship Specialty Start Date End Date Laurita Morales MD [address] [facility] [place] [address] PCP - General Family Medicine 08/26/23 Gluing Machine Operator Automatic Relationship Specialty Start Date End Date Laurita Morales MD [address] [facility] [place] [address] PCP - General Family Medicine 08/26/23 Gluing Machine Operator Automatic Relationship Specialty Start Date End Date Laurita Morales MD [address] [facility] [place] [address] PCP - General Family Medicine 08/26/23 Gluing Machine Operator Automatic Relationship Specialty Start Date End Date Laurita Morales MD [address] [facility] [place] [address] PCP - General Family Medicine 08/26/23 Gluing Machine Operator Automatic Relationship Specialty Start Date End Date Laurita Morales MD [address] [facility] [place] [address] PCP - General Family Medicine 08/26/23 Gluing Machine Operator Automatic Relationship Specialty Start Date End Date Laurita Morales MD [address] [facility] [place] [address] PCP - General Family Medicine 08/26/23 Gluing Machine Operator Automatic Relationship Specialty Start Date End Date Laurita Morales MD [address] [facility] [place] [address] PCP - General Family Medicine 08/26/23 Gluing Machine Operator Automatic Relationship Specialty Start Date End Date Laurita Morales MD [address] [place] [address] PCP - General Family Medicine 08/26/23 Gluing Machine Operator Automatic Relationship Specialty Start Date End Date Laurita Morales MD [address] [place] [address] PCP - General Family Medicine 08/26/23 Team Status: Inactive Member Role Status Dates Laurita Morales MD Primary Care Provide r, Attending Provider Active Start: April 21, 2024 End: April 21, 2024 Gluing Machine Operator Automatic Relationship Specialty Start Date End Date Laurita Morales MD [address] [place] [address] PCP - General Family Medicine 08/26/23 Gluing Machine Operator Automatic Relationship Specialty Start Date End Date Laurita Morales MD [address] [place] [address] PCP - General Family Medicine 08/26/23 Gluing Machine Operator Automatic Relationship Specialty Start Date End Date Laurita Morales MD PCP - General Family Medicine 08/26/23 Gluing Machine Operator Automatic Relationship Specialty Start Date End Date Laurita Morales MD PCP - General Family Medicine 08/26/23 Gluing Machine Operator Automatic Relationship Specialty Start Date End Date Laurita Morales MD PCP - General Family Medicine 08/26/23 Gluing Machine Operator Automatic Relationship Specialty Start Date End Date Laurita Morales MD PCP - General Family Medicine 08/26/23 Gluing Machine Operator Automatic Relationship Specialty Start Date End Date Laurita Morales MD PCP - General Family Medicine 08/26/23 Gluing Machine Operator Automatic Relationship Specialty Start Date End Date Laurita Morales MD PCP - General Family Medicine 08/26/23 Gluing Machine Operator Automatic Relationship Specialty Start Date End Date Laurita Morales MD [address] [facility] [place] [address] PCP - General Family Medicine 07/16/24 Gluing Machine Operator Automatic Relationship Specialty Start Date End Date Laurita Morales MD [address] [place] [address] PCP - General Family Medicine 07/16/24 Gluing Machine Operator Automatic Relationship Specialty Start Date End Date Laurita Morales MD [address] [place] [address] PCP - General Family Medicine 07/16/24 Team Status: Inactive Member Role Status Dates Laurita Morales MD Primary Care Provider Active Start: September 30, 2024 End: September 30, 2024 Nasim Segal DO Attending Provider Active S tart: September 30, 2024 End: September 30, 2024 Goals (unrecognized section and content) Goals [...] sectionGoals may be documented in an alternate sectionGoals may be documented in an alternate section INFORMATION SOURCE (unrecogn ized section and content) DATE CREATED AUTHOR 05/23/2021 [facility] DATE CREATED AUTHOR AUTHOR'S ORGANIZ ATION 01/23/2022 [facility] DATE CREATED AUTHOR AUTHOR'S ORGANIZ ATION 03/17/2022 [facility] DATE CREATED AUTHOR AUTHOR'S ORGANIZ ATION 12/03/2023 [facility] DATE CREATED AUTHOR AUTHOR'S ORGANIZ ATION 12/08/2023 [facility] DATE CREATED AUTHOR AUTHOR'S ORGANIZ ATION 12/10/2023 [facility] DATE CREATED AUTHOR AUTHOR'S ORGANIZ ATION 12/12/2023 [facility] DATE CREATED AUTHOR AUTHOR'S ORGANIZ ATION 01/23/2024 [facility] DATE CREATED AUTHOR AUTHOR'S ORGANIZ ATION 01/25/2024 [facility] DATE CREATED AUTHOR AUTHOR'S ORGANIZ ATION 02/03/2024 [facility] DATE CREATED AUTHOR AUTHOR'S ORGANIZ ATION 08/13/2024 [facility] DATE CREATED AUTHOR AUTHOR'S ORGANIZ ATION 08/24/2024 [facility] EPIC DATE CREATED AUTHOR AUTHOR'S ORGANIZ ATION 08/28/2024 [facility] REASON FOR VISIT (unrecogniz ed section and content) Reason Comments Follow-up Reason Comments Pain Reason Comments Follow-up Reason Onset Date Comments MRI 03/02/2024 Reason Comments Pre-op Exam Reason Comments Post-op FOR RECORDS PERTAINING TO PATIENTS WHO ARE [...] BE BASED ON THE PRIMARY CLINICAL RECORDS. [facility] [employer] provides no warranty or guarantee of the accuracy or completeness of information in this document.
--- NOTE | 2024-10-14 08:42 | PM.CN ---
Consult Note: HPI Data of Consult Patient: known to practice within the last 3 years Consult date: 08/19/24 Requesting Physician: Renee Bernal NP Primary Care Provider: Danyell Kelly MD Consult Narrative Reason for consult: right foot pain Narrative: Tisha guerra pleasant 74 year old female presents for evaluation of chronic right foot pain secondary to lumbar radiculopathy, sciatica, lumbar stenosis, and lumbar ddd. Patient has failed to benefit from >6 weeks of PT, tylenol, nsaids, and topical voltaren cream. previously failed zonegran and baclofen. Patient currently utilizing aleve and tylenol PRN, as well as gabapentin 900mg TID with minimal relief. Pain today6-08/20 increasing with standing, walking, housework and activity. pt following with NS Dr Segal at this time for further workup, previously we recommended scs trial which pt declind. cc:: CC: Renee Bernal NP Review of Systems ROS Status of ROS 10 or more systems reviewed and unremarkable except as noted in history and below Musculoskeletal Reports: extremity pain PFSH PFSH Medical History (Updated 08/05/24 @ 11:19 by Rneee Bernal NP) Hypothyroid ?E03.9 - Hypothyroidism, unspecified (ICD-10) Acid reflux ?K21.9 - Gastro-esophageal reflux disease without esophagitis (ICD-10) Tumor, thyroid ?D49.7 - Neoplasm of unspecified behavior of endocrine glands and other parts of nervous system (ICD-10) Carpal tunnel syndrome ?G56.00 - Carpal tunnel syndrome, unspecified upper limb (ICD-10) Sleep apnea ?G47.30 - Sleep apnea, unspecified (ICD-10) Surgical History History of tubal ligation ?Z98.51 - Tubal ligation status (ICD-10) History of appendectomy ?Z90.49 - Acquired absence of other specified parts of digestive tract (ICD-10) History of carpal tunnel release ?Z98.890 - Other specified postprocedural states (ICD-10) Social History Little interest or pleasure in doing things: not at all Feeling down, depressed, or hopeless: not at all Meds Home Medications and Allergies Home Medications ?Medication ?Instructions ?Recorded ?Confirmed ?Type alprazolam 0.5 mg tablet 0.5 mg PO DAILY 09/10/23 08/10/24 History escitalopram oxalate 20 mg tablet 20 mg PO DAILY 09/10/23 08/10/24 History levothyroxine 75 mcg tablet 75 mcg PO DAILY 09/10/23 08/10/24 History omeprazole 40 mg capsule,delayed 40 mg PO DAILY 09/10/23 08/10/24 History release simvastatin 40 mg tablet 40 mg PO DAILY 09/10/23 08/10/24 History sulfasalazine 500 mg tablet 0.5 g PO DAILY 09/10/23 08/10/24 History magnesium oxide 400 mg PO DAILY #7 caps 11/29/23 08/10/24 Rx gabapentin 100 mg capsule 100 mg PO BID #60 caps 08/05/24 08/10/24 Rx naproxen sodium 220 mg capsule 220 mg PO BID PRN pain 08/19/24 08/19/24 History (Aleve) gabapentin 600 mg tablet 900 mg (1.5 x 600 mg) PO TID #135 09/16/24 Rx tabs Allergies Allergy/AdvReac Type Severity Reaction Status Date / Time No Known Drug Allergies Allergy Verified 08/10/24 08:21 Exam Constitutional Documenting provider has reviewed patient's vital signs: yes Common normals: no apparent distress, oriented x3, healthy appearing, alert and well nourished General appearance: cooperative HENNC Common normals: normocephalic, hearing grossly normal bilaterally and moist oral mucous membranes Head and scalp: normocephalic Eye Common normals: PERRL Pupil: PERRL Neck & C-Spine Common normals: full ROM General: normal visual inspection Chest Common normals: inspection of chest normal Respiratory Common normals: normal respiratory effort, no retractions and no use of accessory muscles Back & Pelvis Lumbar spine/lower back: ROM limited, pain with ROM and straight leg raise positive right Sacroiliac joints: SI joints normal Other: positive facet loading strength 5/5 in BLE altered sensation to right L4,L5,S1 Neuro Common normals: oriented x3 Sensorium/orientation: alert Motor exam: strength 5/5 throughout and no movement abnormalities noted Psych Common normals: mental status grossly normal, thought process normal, cooperative, affect normal, speech normal and activity/motor behavior normal Speech: normal speech Thought process: normal thought process Results Imaging lumbar MRI : Attestation: I have reviewed the pertinent imaging results. Radiologist's impression: FINDINGS: Vertebral body heights appear maintained. Diffuse disc desiccation. Spinal cord terminates in normal position without abnormal cord signal. No paraspinal mass. Visualized retroperitoneum demonstrates no acute findings. Cholelithiasis. At T12-L1: 3 mm retrolisthesis. Diffuse broad-based disc bulge is present. Facet joint degenerative changes. No significant canal stenosis. No significant neural foraminal stenosis. At L1-L2: 3 mm retrolisthesis. Endplate irregularity with Modic changes. Diffuse broad-based disc bulge is present with facet joint degenerative changes. No significant canal stenosis. Moderate bilateral neural foraminal stenosis. At L2-L3: Diffuse broad-based disc bulge with facet joint degenerative changes causing mild canal and bilateral neural foraminal stenosis. At L3-L4: No posterior disc pathology. Facet joint degenerative changes. No significant canal or neural foraminal stenosis. At L4-L5: 3 mm of anterolisthesis. Diffuse broad-based disc bulge is present with facet joint degenerative changes. No significant canal stenosis. Moderate bilateral neural foraminal stenosis. At L5-S1: 3 mm of anterolisthesis. Facet joint degenerative changes. No significant canal stenosis. Moderate bilateral neural foraminal stenosis. Additional Findings Additional findings: If on a controlled substance or opioids, I have checked an [place]AR[place] report on this patient and there are no aberrancies noted in the prescribing history.??If on a controlled substance or opioid a drug screen was completed and reviewed within the last year, and if there has not been a drug screen completed we ordered one today to monitor higher risk, state monitored pain medication use. As part of providing excellent, safe, comprehensive care, the following was completed at our patient's visit: 1. A medication reconciliation and review to ensure accurate knowledge of current/active medications, including asking our patients to inform us about any [id number] medications or herbal remedies/nutritional supplements/alternative remedies. 2. A review to specifically ensure our patients have had annual screening for screening for depression, screening for tobacco use, and screening for unhealthy alcohol use. For concerning screenings had a discussion with the patient, provided patient education, and recommended follow-up with primary care provider when appropriate. If patient noted with a risk of falling, they received education on strength, gait, and balance training to prevent future risk of falling. Portions of this note may have been carried over from the previous visit and updated as appropriate. Please note this office utilizes paper charting in addition to the electronic medical record. A list of current medications, vitals, and PMH is available there as the clinical staff outside of myself do not have access to [employer] charting during the clinic day operations. As part of providing quality comprehensive care the current medications, vitals, and PMH were reviewed in the paper chart. Assessment and Plan Assessment and Plan (1) Lumbar radiculopathy: Assessment and Plan: The patient has had over 3 months of moderate to severe right foot and low back pain with functional impairment and inadequate response to conservative care including NSAIDS (unless there are contraindication such as concurrent blood thinners), multiple oral or topical pain medications, and home exercise program/physical therapy.? Patient has completed >6 weeks of guided home exercise program and/or formal physical therapy program without relief of their symptoms.? The Oswestry Disability Index was completed, and the patient scored a 38%.? The patient noted the following:?? moderate to severe pain impacting ADLs, sitting, standing, walking, sleeping, social life, and travel (2) Lumbar degenerative disc disease: (3) Spondylolisthesis: (4) Sciatica: (5) Degenerative disc disease (DDD) of lumbar region with discogenic back pain and leg pain: Plan 74 year old female with chronic low back and right foot pain presents for evaluation. has failed to benefit from > 6 weeks of PT/HEP, heat, ice, tylenol, NSAIDs. continues to declining scs trial for lumbar radiculopathy. continue f/u with NS for further workup. at this time wean off of gabapentin due to ineffectiveness, can decrease to 600mg TID for 2 days then 600mg BID for 2-3 days as tolerated then 600mg daily and stop. once off of gabapentin can start pregabalin 50mg TID. risks vs benefits reviewed. f/u 3 weeks, continue to titrate lyrica as needed
== END 2024-10-14 08:13 | disposition home or self-care (01) ==
LOC: PM 08:12
PROVIDERS: PCP Family Medicine; Visit Provider Nurse Practitioner
DX: M54.16 Radiculopathy, lumbar region (principal); M51.369 Other intervertebral disc degeneration, lumbar region without mention of lumbar back pain or lower extremity pain; M43.10 Spondylolisthesis, site unspecified; M54.30 Sciatica, unspecified side
CPT/HCPCS: G0463

== ENCOUNTER 2024-10-19 10:06 | Outpatient (OUT) | payer MEDICARE, OTHER, SELFPAY ==
--- OUTSIDE RECORDS SUMMARY | 2023-05-14 09:01 | XMS_ITS ---
Author Organization The [facility] [place] Address [address] [place] [address] Care Team Providers Care President Practicing Urologist Name Role Phone Danyell Kelly Primary Care Provider Seymour Zavala [facility] [phone] Encounters Encounter Location Date Provider Diagnosis [facility] (PODIATRY) [address] [place] [address] [place] [address] 05/14/2023 Seymour Johnson Plan Of Treatment No Information Progress Notes * Tisha CERVANTESDOB:1950 (73 yo F)Acc No.[id number]:05/14/2023 Patient: Jey CONSTANTINOha :1950 A ge:73 Y S ex:Female Address:[address] [place] [address] * true * Date: Generated for Printi ng/Faxing/eTransmitting on: 0 10/19/2024 10:10 AM EDT
--- OUTSIDE RECORDS SUMMARY | 2023-06-04 07:30 | XMS_ITS ---
Author Organization [facility] in [place] Address [address] [place] [address] Care Team Providers Care Ground Instructor Basic Name Role Phone Danyell Kelly Primary Care Provider Seymour Zavala Unavailable [phone] Allergies Allergen (clinical drug ingredient) Drug/Non Drug Allergy documented on EMR Reaction Allergy Type Onset Date Status varenicline Chantix Unknown Drug Allergy Activ e Results Component Value Reference Range Notes XR Ankle RT (3 views) * (161 ) Reviewed date:06/07/2023 11:16:00 AM Interpretation: Performing Lab: Notes/Report: XR Foot RT (3 views) * Reviewed date:06/07/2023 10:50:58 AM Interpretation: Performing Lab: Notes/Report: Reason For Referral Reason evaluate and treat - - see order for details Diagnosis 1 Peroneal tendinitis, right leg (M76.71) Referral Organization [facility] (P[facility]AT[facility]) Referring Provider First Name Seymour Referring [...] Patient is a former smoker Vital Signs Temperature 97 degrees Fahrenheit 06/04/2023 Heart Rate 80 /min 06/04/2023 Height 55.5 in 06/04/2023 Weight 160 lbs 06/04/2023 BMI 36.52 kg/m2 06/04/2023 Encounters Encounter Location Date Provider Diagnosis [facility] (PODIATRY) [address] [place] [address] [place] [address] [facility] M79.671 [...] -- see order for details, Physical Therapy [facility] Progress Notes * Tisha CERVANTESDOB:1950 (73 yo F)Acc No.[id number]:06/04/2023 Follow Up Patient: Tisha CONSTANTINO Provider: Will Johnson DPM, MS :1950 A ge:73 Y S ex:Female Date:06/04/2023 Address:[address] [place], [place] [id number] Pcp:Danyell Kelly Check In:11:15 AM ESTCheck O ut:12:06 PM EST Subjective: * Chief Complaints: * R T foot pain * HPI: G eneral: pt is having a lot of pain in her right foot and ankle. The pain started in [facility]. She has been seeing rhodell due to arthritis in her knee and [...] M usculoskeletal: Bone/Joint Symptoms d enies. C ranjit Pain d enies.?Leg cramps d enies. N [...] 06/04/2023 Generated for Charleen milligan/Faxing/eTransmitting on: 0 10/19/2024 10:10 AM EDT History and Physical Notes * [...] Referred Provider Not es 06/04/2023 Seymour Johnson [facility], Physical Therapy e valuate and treat -- see order for details
--- OUTSIDE RECORDS SUMMARY | 2023-08-06 10:45 | XMS_ITS ---
Author Organization [facility] in [place] Address [address] [place] [address] Care Team Providers Care Management Information Systems Director Name Role Phone Danyell Kelly Primary Care Provider Seymour Zavala [phone] Allergies Allergen (clinical drug ingredient) Drug/Non Drug [...] is a former smoker Vital Signs Temperature 97.6 degrees Fahrenheit 08/06/19 24 Heart Rate 80 /min 08/06/2023 Respiratory Rate 16 /min 08/06/2023 Height 55.5 in 08/06/2023 Oximetry 97 % 08/06/2023 Encounters Encounter Location Date Provider Diagnosis [facility] (PODIATRY) [address] [place] [address] [place] [address] 08/06/2023 Seymour Johnson Peroneal tendinitis, right leg [...] Notes * Tisha CERVANTESDOB:1950 (73 yo F)Acc No.[id number]:08/06/2023 Follow Up Patient: Tisha CONSTANTINO Provider: Will Johnson DPM, MS :1950 A ge:73 Y S ex:Female Date:08/06/2023 Address:[address] [place] [address], [place], [phone] Pcp:Danyell Kelly Check In:02:20 PM ESTCheck O [...] M usculoskeletal: Bone/Joint Symptoms d enies. C [facility] Pain d enies.?Leg cramps d enies. N [...] 08/06/2023 Generated for Charleen milligan/Brant/eTransmitting on: 0 10/19/2024 10:10 AM EDT History [...]
--- OUTSIDE RECORDS SUMMARY | 2024-10-19 10:10 | XMS_ITS | Clinical Summary ---
Author Organization [facility] Address [address] [place] [address] Care Team Providers Care Gastroenterology Nurse Name Role Phone Danyell Kelly MD Primary Care Provider [phone] Allergies Active Allergy Reactions Criticality Noted Date [...] Encounters Date Type Department Care Team Description 08/20/2024 9:30 AM EDT Office Visit [facility] [address] [facility] [address] [place] [address] Montana Veras, PA S/P right knee arthroscopy (Primary Dx) 08/20/2024 Bamboo flowsheet [facility] [address] [facility] [address] [place] [address] Montana Veras PA 08/20/2024 Travel 07/22/2024 11:15 AM EDT Office Visit [facility] [address] [place] [address] Montana Veras, PA S/P right knee arthroscopy (Primary Dx) 07/22/2024 Bamboo flowsheet [facility] [address] [place] [address] Montana Veras PA 07/22/2024 Travel from Last 3 Months Immunizations Immunization [...] 06/23/2024 1:30 PM EDT Plan of Treatment Health Maintenance Due Date Last Done Comments Influenza Vaccine (#1) 2024 , 11/07/2022, 11/21/2021, Additional history exists Pneumococcal Vaccine: 65+ Years Completed 11/20/2017, 11/14/2017, 10/24/2016, Additional history exists Colonoscopy Discontinued 01/15/2024, 02/16/2020 Colorectal Cancer Screening Discontinued CT Colonography Discontinued FIT-DNA Discontinued FIT Discontinued FOBT Discontinued Sigmoidoscopy Discontinued Insurance MEDICARE [employer]ET[employer] Care Teams Gastroenterology Nurse Relationship Specialty Start Date End Date Danyell Kelly MD [address] [place] [address] PCP - General Family Medicine 07/16/24
--- OUTSIDE RECORDS SUMMARY | 2024-10-19 10:10 | XMS_ITS | Encounter Summary ---
Author Organization [facility] Address [address] [place] [address] Care Team Providers Care Unisaw Operator Name Role Phone Danyell Kelly MD Primary Care Provider [phone] Danyell Kelly MD Primary Care Provider [phone] Encounter Details Date Type Department Care Team (Late st Contact Info) Description 03/18/2024 Orders Only [facility] [address] [place] [address] Teressa Elizondo MA Internal derangement of left [...] as of this encounter Plan of Treatment Not on file documented as of this encounter Procedures Procedure Name Priority Date/Time Associated Diagnosis Comments MR KNEE LEFT WO IV CONTRAST Routine 03/18/2024 8:08 AM EST Internal derangement of left knee documented in this encounter Results * MR knee left wo IV contrast (03/18/2024 8:08 AM EST) us Adali B Apling SENIOR ENGINEERING MANAGER IMG MRI PROCEDURES Final Resul t documented in this encounter Visit Diagnoses Diagnosis Internal derangement of left knee documented in this encounter Care Teams Unisaw Operator Relationship Specialty Start Date End Date Danyell Kelly MD PCP - General Family Medicine 08/26/23 07/15/24 Danyell Kelly MD [address] [facility] [place] [address] PCP - General Family Medicine 07/16/24 documented as of this encounter
--- OUTSIDE RECORDS SUMMARY | 2024-10-19 10:10 | XMS_ITS | Encounter Summary ---
Author Organization [facility] Address [address] [facility] [place] [address] Care Team Providers Care Sport Internship Name Role Phone Danyell Kelly MD Primary Care Provider [phone] Danyell Kelly MD Primary Care Provider Encounter Details Date Type Department Care Team (Late st Contact Info) Description 06/24/2024 Results Follow-Up [facility] [address] [place] [address] Montana Veras PA [address] [place] [address] ALL BASIC METABOLIC PANEL Social History Tobacco Use Types Packs/Day Years [...] on file documented as of this encounter Visit Diagnoses Not on filedocumented in this encounter Care Teams Sport Internship Relationship Specialty Start Date End Date Danyell Kelly MD PCP - General Family Medicine 08/26/23 07/15/24 Danyell Kelly MD [address] [place] [id number] PCP - General Family Medicine 07/16/24 documented as of this encounter
--- OUTSIDE RECORDS SUMMARY | 2024-10-19 10:10 | XMS_ITS | Patient Health Record ---
Author Organization [facility] [place] Address [address] [place] [address] Care Team Providers Care Maori Liaison Adviser Name Role Phone Danyell Kelly Primary Care Provider Unavailabl e Allergies Allergen (clinical drug ingredient) Drug/Non Drug Allergy documented on EMR Reaction Allergy Type Onset Date Status varenicline Chantix Unknown Drug Allergy Activ e Reason For Referral No Information Medications Medication SIG (Take, Route, Frequency, Duration) [...] Problem Status W/U Status Risk Notes Problem 8516161 Tinea pedis (B35.3) Active confirmed Problem [id number] Primary osteoarthri tis, right ankle and foot (M19.071) Active confirmed Problem [id number] Pain in right foot (M79.671) Active confirmed Problem Arthralgia of the ankle and/or foot (526028688) Right ankle pain (M25.571) Active confirmed Plan Of Treatment Pending Test Test Name Order Date ankle RT wo con 08/20/2023 Insurance Providers Payer Name Payer Address Payer Phone Subscriber Number Group Number Insured Name Patient Relationship to Insured Coverage Start Date Coverage End Date MEDICARE [place] [address] [phone] [id number] SammyJey persaudha Self - patient is the insured [facility] [employer] [address] [address] [place] [address] [id number] Tisha Cervantes Self - patient is the insured Medical (General) History Medical History History ICD Code GERD (gastroesophageal reflux disease) K 21.9 Hypothyroid E03.9 Depression F32.9 Surgical History Surgery Date(Month/Year) appendectomy tubal ligation right carpal tunnel right 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
--- OUTSIDE RECORDS SUMMARY | 2024-10-19 10:10 | XMS_ITS | Encounter Summary ---
Author Organization [facility] Address [address] [place] [address] Care Team Providers Care Ice Platform Supervisor Name Role Phone Danyell Kelly MD Primary Care Provider [phone] Danyell Kelly MD Primary Care Provider [phone] Encounter Details Date Type Department Care Team (Late st Contact Info) Description 09/10/2023 Orders Only [facility] [address] [place] [address] Adali Giordano NP Internal derangement of left [...] contrast (09/10/2023 8:34 AM EDT) Adali Giordano NP IMG MRI PROCEDURES Final Resul t documented in this encounter Visit Diagnoses Diagnosis Internal derangement of left knee documented in this encounter Care Teams Ice Platform Supervisor Relationship Specialty Start Date End Date Danyell Kelly MD PCP - General Family Medicine 08/26/23 07/15/24 Danyell Kelly MD [facility] [place] [id number] PCP - General Family Medicine 07/16/24 documented as of this encounter
--- OUTSIDE RECORDS SUMMARY | 2024-10-19 10:11 | XMS_ITS | Patient Health Record ---
Author Organization [facility] Address [address] [place] [address] Care Team Providers Care Restaurant Hospitality Manager Name Role Phone Danyell Kelly M.D. Primary Care Provider Bucky Valente Godinez Unavailable [phone] Allergies No Known Allergies Reason For Referral [...] Problem Status W/U Status Risk Notes Problem [id number] Primary osteoarthritis of right knee (M17.11) Active confirmed Problem 661276726 NSAID long-term use (Z79.1) Active confirmed Problem 443575098 Bilateral primar y osteoarthritis of knee (M17.0) Active confirmed Problem [id number] Primary osteoarthritis of left knee (M17.12) Active confirmed Problem 8906274795380441 Other chondrocalcinosis , left knee (M11.262) Active confirmed Plan Of Treatment No Information Insurance Providers Payer Name Payer Address Payer Phone Subscriber Number Group Number Insured Name Patient Relationship to Insured Coverage Start Date Coverage End Date Medicare [address] [phone] [id number] ALEXANDRA GARDNER Self - patient is the insured [employer] Senior Supplemental Insurance [address] [address] [facility] [place] [phone] [id number] ALEXANDRA GARDNER Self - patient is the insured Medical (General) History Medical History History ICD Code Depression Anxiety Sleep apnea Surgical History Surgery Date(Month/Year) thyroid 3 yrs ago
--- OUTSIDE RECORDS SUMMARY | 2024-10-19 10:14 | XMS_ITS | CCD ---
Author Organization [facility] CliniSyin Care Team Providers Care 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 Name Role Phone MD Cy Sears Attending Provider MD Laurita Morales Primary Care Provider LAURITA MORALES Primary Care Physician [phone] DO Luis Gutierrez Attending Provider [phone] CARMEN, DR LAURITA Solis Attending Unavailable MORALES, [...] Primary Care Unavailable SALAM, FAROOQ Attending Unavailable SHANKAR, DR SCHRADER Consulting Unavailable MORALES, DR LAURITA Solis Primary Care Unavailable MORALES, DR LAURITA Solis Admitting Unavailable MORALES, DR LAURITA Solis Attending Unavailable PERRYSBURG, DR LONNY Wiggins Consulting Unavailable MORALES, DR [...] Unavaila Laurita Fontenot MD Primary Care Provider [phone] Laurita Morales MD Primary Care Provider Martin Tatum Attending Unavaila pato GUERRERO JR., [...] Care Provider Nasim Segal DO Attending Provider [phone] Allergies Allergy Classification Reported Allergen(s) Allergy Type [...] every six hours for pain HYDROcodone-aceta minophen ([place]) 5-325 MG tablet Indications: Acute medial meniscus tear of right knee, initial encounter Take 1 tablet by mouth every 6 (six) hours if needed for severe pain for up to 3 days 12 tablet 07/06/2024 07/09/2024 Active Start: 10-08-2023 End: 10-11-2023 take 1 tablet by mouth every six hours for pain HYDROcodone-acetaminophen ([place]) 5-325 MG tablet Indications: Post-op pain Take [...] Start: 01-31-2024 take 4 tablets by mo [facility] once daily mesalamine ([place]) 1.2 g EC [...] 0 Start Date: 03/20/24 Status: Ordered NuLYTELY Howell oral powder for reconstitution (1 source) Start: 01-28-2020 take 1 dose by mouth once NuLYTELY Howell oral powder for reconstitution See Instructions, 1 [...] 06/23/2024 Discontinued (Therapy completed) polyethylene glycol 3350 009424 mg / potassium chloride 1480 mg / sodium bicarbonate 5720 mg / sodium chloride 53657 mg powder for oral solution (1 source) Osmotic Laxative Start: 01-28-2020 take 1 dose by mouth once NuLYTELY Howell oral powder for reconstitution See Instructions, 1 [...] day(s), # 540 tab(s), Refills(s) 3, Pharmacy: [facility] [id number], 150, cm, 03/20/24 11:03:00 EST, Height/Length Dosing, 74.6, kg, 03/20/24 11:03:00 EST, Weight Dosing Start Date: 03/20/24 Stop Date: 03/15/25 Status: Ordered Start: 05-26-2021 End: 07-03-2023 take 1 tablet by mouth four times daily Sulfasalazine 500 mg tablet Discontinued 500 MG PO Four times daily May 26, 2021 12:00am July 03, 2023 9:07am Start: 05-10-2021 take 2 tablets by mo [facility] three times daily sulfasalazine 500 mg Tab 1,000 mg = 2 tab(s), Oral, TID, # 180 tab(s), Refills(s) 11, Pharmacy: [facility] #[id number], 150, cm, 05/10/21 11:13:00 EDT, Height/Length Dosing, 71, kg, 05/10/21 11:13:00 EDT, Weight Dosing Start Date: 05/10/21 Status: [facility] sulfaSALAzine (Azulfidine) 500 MG tablet [...] I place a reminder for November. Normal [facility] ALL BASIC METABOLIC PANELon 06-24-2024 Anion gap [Moles/Vol] 8 mmol/L [facility] Calcium [Mass/Vol] 9.4 mg/dL 8.5 - 10. 1 mg/dL [facility] Chloride [Moles/Vol] 103 mmol/L 98 - 10 7 mmol/L [facility] CO2 [Moles/Vol] 30.4 mmol/L 21.0 - 32.0 mmol/L [facility] Creatinine [Mass/Vol] 0.75 mg/dL 0.55 - 1.02 mg/dL [facility] GFR/1.73 sq M.predicted CKD-EPI (S/P/Bld) [Vol rate/Area] >60 >=60 mL/min/1.7 3m 2 [facility] Glucose [Mass/Vol] 91 mg/dL 74 - 106 mg/dL [facility] Potassium [Moles/Vol] 4.4 mmol/L 3.5 - 5.1 mmol/L [facility] Sodium [Moles/Vol] 137 mmol/L 136 - 145 mmol/L [facility] TBH EGFR-NON AF FAROESE >60 >=60 mL/min/1.7 3m 2 [facility] Urea nitrogen [Mass/Vol] 11 mg/dL 7.0 - 18.0 mg/dL [facility] Urea nitrogen/Creatinine [Mass ratio] 14.7 mg/mg [facility]INISYNC [facility] XR Knee - left 1 or [...] structures visualized appeared to be adequately ossified. [facility] Radiology Study observation (narrative) [facility] Gastroenterology Office/Clin ic Noteon 03-20-2024 Gastroenterology [...] fL (01/15/24) Chloride: 100 mmol/L Low (01/15/24) [place] Absolute: 1.1 E9/L High (01/15/24) CO2: 23 mmol/L (01/15/24) [place] Auto: 10.6 % (01/15/24) Creatinine: 0.6 mg/dL [...] years, pereira (more content not included)... Normal [facility] Comment on above: Result Comment: [...] EDT With: Deepti ALARCON, Martin Khan Where: [facility] [address] [place], [place] [id number]- You Need to Complete the Following Calprotectin, [...] us for your care. Normal [facility] Gastroenterology Office/Clin ic Noteon 01-30-2024 Gastroenterology [...] for h (more content not included)... Normal [facility] Comment on above: Result Comment: Elec tronically Signed By: Deepti ALARCON, Martin Khan\.br\Date and Time Signed: 01/30/24 14:13 EST Surgical Pathology Reporton 01-22-2024 Surgical Pathology Report [facility] [address] [place] [address]- Surgical Pathology Report Collected Date/Time: 01/15/2024 12:33 [...] characteristics were determined by the [facility] Surgical Pathology. They have not been cleared or approved by the [place] Food and Drug Administration. The FDA has determined that such clearance or approval is not necessary. These tests are used for clinical purposes. They should not be regarded as investigational or for research. Appropriate positive and negative controls are performed and are acceptable. Normal [facility] Comment on above: Performed By: #### 4 [id number] #### [facility] [address] [place] [id number] Quantiferon-TB Plus (Client Incubated)on 01-17-2024 Gamma interferon background IA Qn (Bld) 0.02 International_Unit/mL Invalid Interpretation Code [facility] Comment on above: Performed By: #### 1 [id number] #### [facility] [address] [place] [address] M. tuberculosis stim IFN-g by CD4+ CD8+ T-cells corrected for background Qn (Bld) 0.05 International_Unit/mL Invalid Interpretation Code [facility] Comment on above: Performed By: #### 1 [id number] #### [facility] [address] [place] [address] M. tuberculosis stim IFN-g by CD4+ T-cells corrected for background Qn (Bld) 0.02 International_Unit/mL Invalid Interpretation Code [facility] Comment on above: Performed By: #### 1 [id number] #### [facility] [address] [place] [address] M. tuberculosis stim IFN-g Ql (Bld) [Interp] Negative Invalid Interpretation Code Negative [facility] Comment on above: Result Comment: [...] interferon gamma. Chemiluminescence immunoassay methodology Performed at: [employer] [facility] [id number] PhD Kirk Cm Performed By: #### 1 [id number] #### [facility] [address] [place] [address] Mitogen stimulated gamma interferon corrected for background Qn (Bld) >10.00 Invalid Interpretation Code [facility] Comment on above: Performed By: #### 1 [id number] #### [facility] [address] [place] [id number] Service comment (Unsp spec) [Interp] Comment Invalid Interpretation Code [facility] Comment on above: Result Comment: [...] for the test. Performed By: #### 1 [id number] #### [facility] [address] [place] [address] Enteric Panel by PCRon 01-15 Enteric Panel by PCR Shiga Tox Interp Negative for Shiga Toxin producing E. coli Normal [facility] CHEMISTRYOrdered By: SYSTEM SYSTEM on [...] samples in close time sequence. Normal Negative [facility] Comment on above: Result Comment: This test result should be correlated with clinical presentations and medical history by a healthcare provider to determine its clinical significance.\.br\.br\ Other Comment: Order added by Discern Expert. Clostridium difficile by PCR Negative Normal Negative [facility] Comment on above: Order Comment: Order added by Discern Expert. Result Comment: This test result should be correlated with clinical presentations and medical history by a healthcare provider to determine its clinical significance. Performed By: #### 4 [id number] #### [facility] [address] [place] [address] CDiff PCRon 12-06-2023 C. difficile toxin A+B Ql (Stl) No, PCR to follow Normal [facility] Comment on above: Performed By: #### 3 [id number] #### [facility] [address] [place] [address] CDiff PCR Order Cancelled Specimen has been found to be acceptable for C. difficile testing. Normal [facility] Enteric Panel by PCRon 12-05 C. coli+jejuni+upsalien sis DNA ADELITA+non-probe Ql (Stl) Not detected Normal [facility] Comment on above: Result Comment: Test ing was performed utilizing reverse preconstruction manager (RT), polymerase chain reaction (PCR), and array [...] nulcleic acid test. Performed By: #### 1 [id number] #### [facility] [address] [place] [address] E. coli stx1+stx2 genes ADELITA+non-probe Ql (Stl) Negative Normal [facility] Comment on above: Performed By: #### 1 [id number] #### [facility] [address] [place] [address] Enteric Panel by PCR Shiga Tox Interp Negative for Shiga Toxin producing E. coli Normal [facility] Enteric Panel Intrl QC Pass Normal [facility] Comment on above: Result Comment: Test ing was performed utilizing reverse preconstruction manager (RT), polymerase chain reaction (PCR), and array [...] 1 and 2. Performed By: #### 1 [id number] #### [facility] [address] [place] [address] Norovirus genogroup I+II RNA ADELITA+non-probe Ql (Stl) Not detected [facility] Comment on above: Performed By: #### 1 [id number] #### [facility] [address] [place] [address] Rotavirus A RNA ADELITA+non-probe Ql (Stl) Not detected Normal [facility] Comment on above: Performed By: #### 1 [id number] #### [facility] [address] [place] [address] S. enterica+bongori DNA ADELITA+non-probe Ql (Stl) Not detected Normal [facility] Comment on above: Result Comment: This test result should be correlated with clinical presentations and medical history by a healthcare provider to determine its clinical significance. Performed By: #### 1 [id number] #### [facility] [address] [place] [address] Shigella species+EIEC invasion plasmid antigen H ipaH gene ADELITA+non-probe Ql (Stl) Not detected Normal [facility] Comment on above: Performed By: #### 1 [id number] #### [facility] [address] [place] [address] V. cholerae+parahaemoly ticus+vulnificus DNA ADELITA+non-probe Ql (Stl) Not detected Normal [facility] Comment on above: Performed By: #### 1 [id number] #### [facility] [address] [place] [address] Y. enterocolitica DNA ADELITA+non-probe Ql (Stl) Not detected Normal [facility] Comment on above: Performed By: #### 1 [id number] #### [facility] [address] [place] [address] Celiac Disease Comprehensive on 12-05-2023 Endomysium IgA Ql (S) Negative Invalid Interpretation Code Negative [facility] Comment on above: Performed By: #### 1 [id number] #### [facility] [address] [place] [address] Gliadin peptide IgA Qn (S) 4 unit(s) Invalid Interpretation Code 0-19 [facility] Comment on above: Result Comment: Nega tive 0 - 19 Weak Positive 20 - 30 Moderate to Strong Positive >30 Performed By: #### 1 [id number] #### [facility] [address] [place] [address] Gliadin peptide IgG Qn (S) 3 unit(s) Invalid Interpretation Code 0-19 [facility] Comment on above: Result Comment: Nega tive 0 - 19 Weak Positive 20 - 30 Moderate to Strong Positive >30 Performed By: #### 1 [id number] #### [facility] [address] [place] [address] IgA [Mass/Vol] 248 mg/dL Invalid Interpretation Code 64-422 [facility] Comment on above: Result Comment: Perf ormed at: [facility] [address] [id number] PhD Kirk Cm Performed By: #### 1 [id number] #### [facility] [address] [place] [address] tTG IgA Qn (S) <2 Invalid Interpretation Code 0-3 [facility] Comment on above: Result Comment: Nega tive 0 - 3 Weak Positive 4 - 10 Positive >10 Tissue Transglutaminase (tTG) has been identified as the endomysial antigen. Studies have demonstr- ated that endomysial IgA antibodies have over 99% specificity for gluten sensitive enteropathy. Performed By: #### 1 [id number] #### [facility] [address] [place] [address] tTG IgG Qn (S) 5 unit/mL Invalid Interpretation Code 0-5 [facility] Comment on above: Result Comment: Nega tive 0 - 5 Weak Positive 6 - 9 Positive >9 Performed By: #### 1 [id number] #### [facility] [address] [place] [address] CHEMISTRYOrdered By: SYSTEM SYSTEM on 12-04-2023 TSH Qn 1.76 m[IU]/L Normal 0.34 - 5.60 mcIU/mL Remisol Chem TSHon 12-04-2023 TSH Qn 1.76 m[IU]/L Normal 0.34-5.60 [facility] Comment on above: Performed By: #### 2 [id number] #### [facility] [address] [place] [address] CBC AUTO DIFFon 11-21-2021 BASO # 0.1 103/ul Normal 0.0-0.1 [facility] Comment on above: Performed By: #### C BC #### [facility] [address] [address] [address] Scooby Irvin Basophils/100 WBC (Bld) 0.5 % Normal 0.2-2.0 [facility] Comment on above: Performed By: #### C BC #### [facility] [address] [address] [address] Scooby Irvin EO # 0.0 103/ul Normal 0.0-0.7 [facility] Comment on above: Performed By: #### C BC #### [facility] [address] [place] [address] Dr. Scooby Irvin Eosinophils/100 WBC (Bld) 0.1 % Critically low 0.9-7.0 [facility] Comment on above: Performed By: #### C BC #### [facility] [address] [address] [address] Scooby Irvin Erythrocyte distribution width (RBC) [Ratio] 15.1 % Critically high 11.0-15.0 [facility] Comment on above: Performed By: #### C BC #### [facility] [address] [place] [address] Dr. Scooby Irvin Hematocrit (Bld) [Volume fraction] 39.4 % Normal 36.0-48.0 [facility] Comment on above: Performed By: #### C BC #### [facility] [address] [address] [address] Scooby Irvin Hemoglobin (Bld) [Mass/Vol] 12.6 g/dL Normal 12.0-16.0 [facility] Comment on above: Performed By: #### C BC #### [facility] [address] [address] [address] Scooby Irvin IG # 0.05 10e3/ul Critically high 0.00-0.03 [facility] Comment on above: Performed By: #### C BC #### [facility] [address] [place] [address] Dr. Scooby Irvin IG % 0.5 % Normal 0.0-0.5 [facility] Comment on above: Performed By: #### C BC #### [facility] [address] [place] [address] Dr. Scooby Irvin LYMPH # 1.3 103/ul Normal 1.2-3.[address] [facility] Comment on above: Performed By: #### C BC #### [facility] [address] [place] [address] Dr. Scooby Irvin Lymphocytes/100 WBC (Bld) 13.2 % Critically low 20.5-60.[address] [facility] Comment on above: Performed By: #### C BC #### [facility] [address] [place] [address] Dr. Scooby Irvin MANUAL DIFF REQ NO Normal [facility] Comment on above: Performed By: #### C BC #### [facility] [address] [place] [address] Dr. Scooby Irvin MCH (RBC) [Entitic mass] 30.0 pg Normal 26.7-34.0 [facility] Comment on above: Performed By: #### C BC #### [facility] [address] [place] [address] Dr. Scooby Irvin MCHC (RBC) [Mass/Vol] 32.0 g/dL Normal 29.9-35.[address] [facility] Comment on above: Performed By: #### C BC #### [facility] [address] [place] [address] Dr. Scooby Irvin MCV (RBC) [Entitic vol] 93.8 fL Normal 81.0-99.[address] [facility] Comment on above: Performed By: #### C BC #### [facility] [address] [place] [address] Dr. Scooby Irvin MONO # 0.7 103/ul Normal 0.3-0.[address] [facility] Comment on above: Performed By: #### C BC #### [facility] [address] [place] [address] Dr. Scooby Irvin Monocytes/100 WBC (Bld) 7.2 % Normal 1.7-12.0 [facility] Comment on above: Performed By: #### C BC #### [facility] [address] [place] [address] Dr. Scooby Irvin NEUT # 7.5 103/ul Critically high 1.4-6.5 [facility] Comment on above: Performed By: #### C BC #### [facility] [address] [address] [address] Scooby Irvin Neutrophils/100 WBC (Bld) 78.5 % Critically high 43.0-75.0 [facility] Comment on above: Performed By: #### C BC #### [facility] [address] [place] [address] Dr. Scooby Irvin Platelet mean volume (Bld) [Entitic vol] 9.9 fL Normal 9.5-13.[address] [facility] Comment on above: Performed By: #### C BC #### [facility] [address] [place] [address] Dr. Scooby Irvin PLT 230 103/ul Normal 150-[address] [facility] Comment on above: Performed By: #### C BC #### [facility] [address] [place] [address] Dr. Scooby Irvin RBC 4.20 106/ul Normal 4.20-5.[address] [facility] Comment on above: Performed By: #### C BC #### [facility] [address] [place] [address] Dr. Scooby Irvin WBC 9.5 103/ul Normal 4.0-11.[address] [facility] Comment on above: Performed By: #### C BC #### [facility] [address] [place] [address] Dr. Scooby Irvin PROF 14(COMP METB)on 022 Albumin [Mass/Vol] 3.9 g/dL Normal 3.4-5.0 [facility] Comment on above: Performed By: #### C BC #### [facility] [address] [place] [address] Dr. Scooby Irvin Albumin/Globulin [Mass ratio] 1.0 {ratio} Normal [facility] Comment on above: Performed By: #### C BC #### [facility] [address] [place] [address] Dr. Scooby Irvin ALP [Catalytic activity/Vol] 87 U/L Normal 46-[address] [facility] Comment on above: Performed By: #### C BC #### [facility] [address] [place] [address] Dr. Scooby Irvin ALT [Catalytic activity/Vol] 29 U/L Normal 14-59 [facility] Comment on above: Performed By: #### C BC #### [facility] [address] [place] [address] Dr. Scooby Irvin Anion gap [Moles/Vol] 14.1 mmol/L Normal [facility] Comment on above: Performed By: #### C BC #### [facility] [address] [place] [address] Dr. Scooby Irvin AST [Catalytic activity/Vol] 38 U/L Critically high 15-37 [facility] Comment on above: Performed By: #### C BC #### [facility] [address] [place] [address] Dr. Scooby Irvin Bilirubin [Mass/Vol] 0.5 mg/dL Normal 0.2-1.0 [facility] Comment on above: Performed By: #### C BC #### [facility] [address] [place] [address] Dr. Scooby Irvin Calcium [Mass/Vol] 9.2 mg/dL Normal 8.5-10.[address] [facility] Comment on above: Performed By: #### C BC #### [facility] [address] [place] [address] Dr. Scooby Irvin Chloride [Moles/Vol] 102 mmol/L Normal 98-[address] [facility] Comment on above: Performed By: #### C BC #### [facility] [address] [place] [address] Dr. Scooby Irvin CO2 [Moles/Vol] 25.7 mmol/L Normal 21.0-32.0 [facility] Comment on above: Performed By: #### C BC #### [facility] [address] [place] [address] Dr. Scooby Irvin Creatinine [Mass/Vol] 0.76 mg/dL Normal 0.55-1.02 [facility] Comment on above: Performed By: #### C BC #### [facility] [address] [place] [address] Dr. Scooby Irvin EGFR-AF FAROESE >60 Normal >=[address] [facility] Comment on above: Performed By: #### C BC #### [facility] [address] [place] [address] Dr. Scooby Irvin EGFR-NON AF FAROESE >60 Normal >=60 [facility] Comment on above: Performed By: #### C BC #### [facility] [address] [place] [address] Dr. Scooby Irvin Globulin (S) [Mass/Vol] 3.8 g/dL Normal [facility] Comment on above: Performed By: #### C BC #### [facility] [address] [place] [address] Dr. Scooby Irvin Glucose [Mass/Vol] 104 mg/dL Normal 74-[address] [facility] Comment on above: Performed By: #### C BC #### [facility] [address] [place] [address] Dr. Scooby Irvin Potassium [Moles/Vol] 4.8 mmol/L Normal 3.5-5.[address] [facility] Comment on above: Performed By: #### C BC #### [facility] [address] [place] [address] Dr. Scooby Irvin Protein [Mass/Vol] 7.7 g/dL Normal 6.4-8.[address] [facility] Comment on above: Performed By: #### C BC #### [facility] [address] [place] [address] Dr. Scooby Irvin Sodium [Moles/Vol] 137 mmol/L Normal 136-[address] [facility] Comment on above: Performed By: #### C BC #### [facility] [address] [address] [address] Scooby Irvin Urea nitrogen [Mass/Vol] 9.0 mg/dL Normal 7.0-18.0 [facility] Comment on above: Performed By: #### C BC #### [facility] [address] [address] [address] Scooby Irvin Urea nitrogen/Creatinine [Mass ratio] 11.8 mg/mg Normal [facility] Comment on above: Performed By: #### C BC #### [facility] [address] [address] [address] Scooby Irvin LIPID PROFILEon 09-27-2021 CHOL-HDL RATIO NORM SEE BELOW Normal [facility] Comment on above: Result Comment: 3.3 - 4.4 LOW RISK 4.4 - 7.1 AVERAGE RISK 7.1 - 11.0 MODERATE RISK >11.0 HIGH RISK Performed By: #### C MP, LIPID #### [facility] [address] [place] [address] Dr. Scooby Irvin Cholesterol [Mass/Vol] 235 mg/dL Critically high <=[address] [facility] Comment on above: Performed By: #### C MP, LIPID #### [facility] [address] [place] [address] Dr. Scooby Irvin Cholesterol in HDL [Mass/Vol] 65 mg/dL Critically high 40-60 [facility] Comment on above: Performed By: #### C MP, LIPID #### [facility] [address] [address] [address] Scooby Irvin Cholesterol in LDL [Mass/Vol] 156.8 mg/dL Normal [facility] Comment on above: Performed By: #### C MP, LIPID #### [facility] [id number] Scooby Irvin Cholesterol.total/Ch olesterol in HDL [Mass ratio] 3.6 {ratio} Normal [facility] Comment on above: Performed By: #### C MP, LIPID #### [facility] [address] [address] [address] Scooby Irvin HDL NORMAL > or = 60 mg/dl - LO W CARDIOVASCULAR RISK <40 mg/dl - HIGH CARDIOVASCULAR RISK Normal [facility] Comment on above: Performed By: #### C MP, LIPID #### [facility] [address] [place] [address] Dr. Scooby Irvin LDL CALC NORMAL SEE BELOW Normal [facility] Comment on above: Result Comment: <100 mg/dl OPTIMAL 100 - 129 mg/dl NEAR OR ABOVE OPTIMAL 130 - 159 mg/dl BORDERLINE HIGH 160 - 189 mg/dl HIGH >190 mg/dl VERY HIGH Performed By: #### C MP, LIPID #### [facility] [address] [place] [address] Dr. Scooby Irvin Triglyceride [Mass/Vol] 66 mg/dL Normal <=150 [facility] Comment on above: Performed By: #### C MP, LIPID #### [facility] [address] [place] [address] Dr. Scooby Irvin VLDL CALC 13.2 mg/dL Normal [facility] Comment on above: Performed By: #### C MP, LIPID #### [facility] [address] [place] [address] Dr. Scooby Irvin PROF 14(COMP METB)on 022 Albumin [Mass/Vol] 3.9 g/dL Normal 3.4-5.0 [facility] Comment on above: Performed By: #### C MP, LIPID #### [facility] [address] [place] [address] Dr. Scooby Irvin Albumin/Globulin [Mass ratio] 1.1 {ratio} Normal [facility] Comment on above: Performed By: #### C MP, LIPID #### [facility] [address] [place] [address] Dr. Scooby Irvin ALP [Catalytic activity/Vol] 87 U/L Normal 46-[address] [facility] Comment on above: Performed By: #### C MP, LIPID #### [facility] [address] [place] [address] Dr. Scooby Irvin ALT [Catalytic activity/Vol] 27 U/L Normal 14-59 [facility] Comment on above: Performed By: #### C MP, LIPID #### [facility] [address] [address] [address] Scooby Irvin Anion gap [Moles/Vol] 16.9 mmol/L Normal [facility] Comment on above: Performed By: #### C MP, LIPID #### [facility] [address] [address] [address] Scooby Irvin AST [Catalytic activity/Vol] 21 U/L Normal 15-[address] [facility] Comment on above: Performed By: #### C MP, LIPID #### [facility] [address] [place] [address] Dr. Scooby Irvin Bilirubin [Mass/Vol] 0.4 mg/dL Normal 0.2-1.[address] [facility] Comment on above: Performed By: #### C MP, LIPID #### [facility] [address] [place] [address] Dr. Scooby Irvin Calcium [Mass/Vol] 8.7 mg/dL Normal 8.5-10.[address] [facility] Comment on above: Performed By: #### C MP, LIPID #### [facility] [address] [place] [address] Dr. Scooby Irvin Chloride [Moles/Vol] 102 mmol/L Normal 98-[address] [facility] Comment on above: Performed By: #### C MP, LIPID #### [facility] [address] [place] [address] Dr. Scooby Irvin CO2 [Moles/Vol] 22.0 mmol/L Normal 21.0-32.[address] [facility] Comment on above: Performed By: #### C MP, LIPID #### [facility] [address] [place] [address] Dr. Scooby Irvin Creatinine [Mass/Vol] 0.73 mg/dL Normal 0.55-1.[address] [facility] Comment on above: Performed By: #### C MP, LIPID #### [facility] [address] [place] [address] Dr. Scooby Irvin EGFR-AF FAROESE >60 Normal >=[address] [facility] Comment on above: Performed By: #### C MP, LIPID #### [facility] [address] [place] [address] Dr. Scooby Irvin EGFR-NON AF FAROESE >60 Normal >=[address] [facility] Comment on above: Performed By: #### C MP, LIPID #### [facility] [address] [place] [address] Dr. Scooby Irvin Globulin (S) [Mass/Vol] 3.7 g/dL Normal [facility] Comment on above: Performed By: #### C MP, LIPID #### [facility] [address] [place] [address] Dr. Scooby Irvin Glucose [Mass/Vol] 105 mg/dL Normal 74-[address] [facility] Comment on above: Performed By: #### C MP, LIPID #### [facility] [address] [place] [address] Dr. Scooby Irvin Potassium [Moles/Vol] 3.9 mmol/L Normal 3.5-5.[address] [facility] Comment on above: Performed By: #### C MP, LIPID #### [facility] [address] [place] [address] Dr. Scooby Irvin Protein [Mass/Vol] 7.6 g/dL Normal 6.4-8.[address] [facility] Comment on above: Performed By: #### C MP, LIPID #### [facility] [address] [place] [address] Dr. Scooby Irvin Sodium [Moles/Vol] 137 mmol/L Normal 136-[address] [facility] Comment on above: Performed By: #### C MP, LIPID #### [facility] [address] [place] [address] Dr. Scooby Irvin Urea nitrogen [Mass/Vol] 11.0 mg/dL Normal 7.0-18.[address] [facility] Comment on above: Performed By: #### C MP, LIPID #### [facility] [address] [place] [address] Dr. Scooby Irvin Urea nitrogen/Creatinine [Mass ratio] 15.1 mg/mg Normal [facility] Comment on above: Performed By: #### C MP, LIPID #### [facility] [address] [place] [address] Dr. Scooby Irvin TSHon 09-27-2021 TSH 2.198 uIU/mL Normal 0.358-3.74 0 [facility] Comment on above: Performed By: #### T SH #### [facility] [address] [place] [address] Dr. Scooby Irvin Covid-19 PCR ([facility])on 09-11 SARS-CoV-2 (COVID-19) RNA ADELITA+probe Ql (Unsp spec) Not detected Normal NOT DETECTED [facility] Comment on above: Result Comment: This test is not yet approved or cleared by the [place] FDA. When there are no FDA-approved or cleared tests available, and other criteria are met, FDA can make tests available under an emergency access mechanism called an Emergency Use Authorization (EUA). The EUA for this test is supported by the [place] of Health and Human Service's (HHS's) declaration [...] By: #### C BC #### [facility] [address] [place] [address] Dr. Scooby Irvin TSHon 06-22-2021 TSH 2.326 uIU/mL Normal 0.358-3.74 0 [facility] Comment on above: Performed By: #### C BC #### [facility] [address] [place] [address] Dr. Scooby Irvin TSH RANGE SEE BELOW Normal [facility] Comment on above: Result Comment: <0.3 4 UIU/ml HYPERTHYROID 0.34-5.60 UIU/ml EUTHYROID >5.60 UIU/ml HYPOTHYROID Performed By: #### C BC #### [facility] [address] [place], [place] [address] Dr. Scooby Irvin ABO/Rh Retypeon 05-31-2021 ABO/RH Recheck Result Positive Normal [facility] Comment on above: Result Comment: PERF ORMED BY: [facility] [address] [address] PATHOLOGIST CALENDER LET OFF HELPER TRICIA Yin 05-31-2021 L -------- -------- Specimen: [id number] Received: 05/31/21 Status: LIDIA Duckworth Num: [id number] Spec Type: Surgical Subm Dr: Luis Gutierrez DO Tissues: A Parathyroid Gland (R/O PARATHYROID) B THYROID - Lobe (R SUBSTERNAL THYROID) Procedures: HE Stain/8, Gross/Micro L5, Gross/Micro L4 -------- Patient Age/Sex Location Account Attending Physician -------- Alexandra Cervantes 71/F [place] [id number] Luis Gutierrez DO -------- SPEC NUM: [id number] RECD: 05/31/21 STATUS: LIDIA DUCKWORTH NUM: [id number] KATHY: 05/31/21- SUBM DR: Luis Gutierrez DO ENTERED: 05/31/[address] [facility] [address]: LANCE TYPE: Surgical DEPT: S [...] Specimen: Received: 05/31/21 Status: LIDIA Duckworth Num: [id number] Spec Type: Surgical Subm Dr: Luis Gutierrez DO Tissues: A Parathyroid Gland (R/O PARATHYROID) B THYROID - Lobe (R SUBSTERNAL THYROID) Procedures: HE Stain/8, Gross/Micro L5, Gross/Micro L4 -------- Patient: Alexandra Cervantes [id number] (Continued) -------- Specimen: Received: 05/31/21 (Continued) Gross Description (Continued) Signed (signature on file) Tricia Oshea MD 06/01/211912 -------- Specimen: Received: 05/31/21 Status: LIDIA Duckworth Num: [id number] Spec Type: Surgical Subm Dr: Luis Gutierrez Tissues: A Parathyroid Gland (R/O PARATHYROID) B THYROID - Lobe (R SUBSTERNAL THYROID) Procedures: HE Stain/8, Gross/Micro L5, Gross/Micro L4 -------- Patient: Alexandra Cervantes [id number] (Continued) -------- Specimen: [id number] Received: 05/31/21-105 (Continued) Gross Description (Continued) demonstrates [...] microscopic findings support the above pathologic diagnosis. [id number], [id number], [id number] -------- -------- Specimen: [id number] Received: (more content not included)... Normal [facility] LeukoReduced RBCon LeukoReduced RBC READY Normal [facility] Type and Screenon 05-31-2021 ABO and Rh group Nom (Bld) Blood group O Rh(D) positive Normal [facility] Comment on above: Order Comment: Trans fuse now? N Result Comment: PERF ORMED BY: [place] [address] PATHOLOGIST CALENDER LET OFF HELPER TRICIA OSHEA M.D. Basic Metabolic Panelon 05-12 Calcium [Mass/Vol] 9.5 mg/dL Normal 8.2-10.2 [facility] Comment on above: Result Comment: PERF ORMED BY: [facility] [address] [place] [address] PATHOLOGIST CALENDER LET OFF HELPER TRICIA OSHEA M.D. Performed By: #### C BC, BMP #### [facility] [address] [place] [address] [place] Chloride [Moles/Vol] 105 mmol/L Normal 95-114 [facility] Comment on above: Performed By: #### C BC, BMP #### [facility] [address] [id number] [place] CO2 [Moles/Vol] 23.0 mmol/L Normal 22.0-30.0 [facility] Comment on above: Performed By: #### C BC, BMP #### [address] Creatinine [Mass/Vol] 0.66 mg/dL Normal 0.44-1.03 [facility] Comment on above: Performed By: #### C BC, BMP #### [address] Estimated GFR ( Traci > 60 Normal [facility] Comment on above: Result Comment: GFR estimated reference range: According to KDOQI guidelines, <60 ml/min/1.73m2 is sufficient to diagnose a patient with chronic kidney disease. Performed By: #### C KELSEY, BMP #### [address] Estimated GFR (Non- Am > 60 Normal [facility] Comment on above: Performed By: #### C BC, BMP #### [address] Glucose [Mass/Vol] 89 mg/dL Normal 70-100 [facility] Comment on above: Result Comment: [place] Glucose Reference Range is dependent on time and content of last meal. Glucose of more than 200 mg/dL in a nonstressed, ambulatory subject supports the diagnosis of Diabetes Mellitus. ADA recommended reference range Performed By: #### C BC, BMP #### [address] Potassium [Moles/Vol] 4.0 mmol/L Normal 3.5-5.1 [facility] Comment on above: Performed By: #### C BC, BMP #### [address] Sodium [Moles/Vol] 137 mmol/L Normal 136-146 [facility] Comment on above: Performed By: #### C BC, BMP #### [address] Urea nitrogen [Mass/Vol] 10 mg/dL Normal 9-23 [facility] Comment on above: Performed By: #### C BC, BMP #### [place] [address] [place] Basophils Auto (Bld) [#/Vol] Ordered By: Luis Dengkam on 05-26-2021 Basophils (Bld) [#/Vol] 0.1 10*3/uL 0.0-0.2 [facility] Basophils/100 WBC Auto (Bld) Ordered By: Luis Arreagaziggy on 05-26-2021 Basophils/100 WBC (Bld) 0.9 % [facility] Blood hemoglobin measurement (mass/volume)Ordered By: Luis Dengkam on 05-26-2021 Hemoglobin (Bld) [Mass/Vol] 12.4 g/dL 11.8-15.4 [facility] Blood leukocytes automated c ount (number/volume)Ordered By: Luis Dengkam on 05-26-2021 WBC (Bld) [#/Vol] 8.8 10*3/uL 4.5-11.0 [facility] COVID-19 FRMCon 05-26-2021 SARS-CoV-2 (COVID-19) RNA ADELITA+probe Ql (Unsp spec) Negative Normal Negative [facility] Comment on above: Order Comment: Healt hcare Worker?: N Result Comment: Testing for SARS-CoV-2 by RT-PCR This test was developed and its performance characteristics determined by [employer]) and validated at the [facility] [...] is terminated or revoked sooner. PERFORMED BY: [facility] [place] [address] PATHOLOGIST CALENDER LET OFF HELPER TRICIA OSHEA M.D. Performed By: #### C OVID 19 [facility] #### [facility] [address] [place] [address] COVID-19 Positive/NegativeOr dered By: Luis Gutierrez on 05-26-2021 SARS-CoV-2 (COVID-19) N gene ADELITA+probe Ql (Resp) Negative Negative [facility] Comment on above: Testing for SARS-CoV -2 by RT-PCRThis test was developed and its performance characteristics determined by [employer] ([employer]) and validated at the [facility] [...] 05-26-2021 Calcium [Mass/Vol] 9.4 mg/dL Normal 8.2-10.2 [facility] Comment on above: Performed By: #### C A, TSH3, PTH #### [address] Complete Blood Count Auto Di ffon 05-26-2021 Basophils (Bld) [#/Vol] 0.1 10*3/uL Normal 0.0-0.2 [facility] Comment on above: Result Comment: PERF ORMED BY: [place] [address] PATHOLOGIST CALENDER LET OFF HELPER TRICIA OSHEA M.D. Performed By: #### C BC, BMP #### [address] Basophils/100 WBC (Bld) 0.9 % Normal . [facility] Comment on above: Performed By: #### C BC, BMP #### [address] Eosinophils (Bld) [#/Vol] 0.0 10*3/uL Normal 0.0-0.45 [facility] Comment on above: Performed By: #### C BC, BMP #### [address] Eosinophils/100 WBC (Bld) 0.2 % Normal . [facility] Comment on above: Performed By: #### C KELSEY, BMP #### [address] Erythrocyte distribution width (RBC) [Ratio] 16.1 % High 11.9-15.3 [facility] Comment on above: Performed By: #### C BC, BMP #### [address] Hematocrit (Bld) [Volume fraction] 37.5 % Normal 34.0-46.4 [facility] Comment on above: Performed By: #### C BC, BMP #### [address] Hemoglobin (Bld) [Mass/Vol] 12.4 g/dL Normal 11.8-15.4 [facility] Comment on above: Performed By: #### C BC, BMP #### [address] Lymphocytes (Bld) [#/Vol] 1.4 10*3/uL Normal 1.00-4.8 [facility] Comment on above: Performed By: #### C BC, BMP #### [address] Lymphocytes/100 WBC (Bld) 15.8 % Normal . [facility] Comment on above: Performed By: #### C BC, BMP #### [address] MCH (RBC) [Entitic mass] 29.2 pg Normal 24.7-34.3 [facility] Comment on above: Performed By: #### C BC, BMP #### [address] MCV (RBC) [Entitic vol] 88.3 fL Normal 80-100 [facility] Comment on above: Performed By: #### C BC, BMP #### [address] Mean Corpuscular HGB Conc 33.1 g/dL Normal 32.0-35.0 [facility] Comment on above: Performed By: #### C KELSEY, BMP #### [address] Monocytes (Bld) [#/Vol] 0.7 10*3/uL Normal 0.0-0.8 [facility] Comment on above: Performed By: #### C KELSEY, BMP #### [address] Monocytes/100 WBC (Bld) 7.7 % Normal . [facility] Comment on above: Performed By: #### C KELSEY, BMP #### [address] Neutrophils (Bld) [#/Vol] 6.7 10*3/uL Normal 1.8-7.7 [facility] Comment on above: Performed By: #### C BC, BMP #### [address] Neutrophils/100 WBC (Bld) 75.4 % Normal . [facility] Comment on above: Performed By: #### C BC, BMP #### [address] Nucleated RBC/100 WBC (Bld) [Ratio] 0.1 % Normal 0-0.5 [facility] Comment on above: Performed By: #### C BC, BMP #### [address] Platelet mean volume (Bld) [Entitic vol] 8.6 fL Normal 6.3-10.7 [facility] Comment on above: Performed By: #### C BC, BMP #### [facility] [address] Platelets (Bld) [#/Vol] 241 10*3/uL Normal 150-450 [facility] Comment on above: Performed By: #### C KELSEY, BMP #### [facility] [address] RBC (Bld) [#/Vol] 4.24 10*6/uL Normal 3.60-5.00 [facility] Comment on above: Performed By: #### C KELSEY, BMP #### [facility] [address] WBC (Bld) [#/Vol] 8.8 10*3/uL Normal 4.5-11.0 [facility] Comment on above: Performed By: #### C BC, BMP #### [facility] [address] Creatinine and Glomerular fi ltration rate.predicted panel (S/P/Bld)Ordered By: Luis Gutierrez on 05-26-2021 Creatinine [Mass/Vol] 0.66 mg/dL 0.44-1.03 [facility] ECG 12 lead ECGon 05-26-2021 ECG 12 lead ECG [facility] [place] [address] [place] [address] Electrocardiograph Report Signed Patient: Alexandra Cervantes MR#: [id number] 2 : 1950 Acct:[id number] Age/Sex: 71 / F ADM Date: 05/26/21 Loc: [facility]: Luis Gutierrez DO Ordering [...] No previous ECGs available Confirmed by FREDI HAIENS DO ([id number]) on 05/27/2021 8:48:58 AM Referred [...] 05-26-2021 MCHC (RBC) [Mass/Vol] 33.1 g/dL 32.0-35.0 [facility] MCV Auto (RBC) [Entitic vol] Ordered By: Luis Gutierrez on 05-26-2021 MCV (RBC) [Entitic vol] 88.3 fL 80-100 [facility] Monocytes Auto (Bld) [#/Vol] Ordered By: Luis Gutierrez on 05-26-2021 Monocytes (Bld) [#/Vol] 0.7 10*3/uL 0.0-0.8 [facility] Monocytes/100 WBC Auto (Bld) Ordered By: Luis Gutierrez on 05-26-2021 Monocytes/100 WBC (Bld) 7.7 % [facility] Neutrophils Auto (Bld) [#/Vo l]Ordered By: Luis [...] Parathyroid Hormone Intact 31.2 pg/mL Normal 12-88 [facility] Comment on above: Result Comment: PERF ORMED BY: [facility] [address] [place] [address] PATHOLOGIST CALENDER LET OFF HELPER TRICIA OSHEA M.D. Performed By: #### C BC, BMP #### [facility] [address] Platelet mean volume Auto (B ld) [...] 05-26-2021 RBC (Bld) [#/Vol] 4.24 10*6/uL 3.60-5.00 [facility] Serum or plasma calcium joseph urement (mass/volume)Ordered By: Luis Gutierrez on 05-26-2021 Calcium [Mass/Vol] 9.4 mg/dL 8.2-10.2 [facility] Serum or plasma chloride liv surement (moles/volume)Ordered By: Luis Gutierrez on 05-26-2021 Chloride [Moles/Vol] 105 mmol/L 95-114 [facility] Serum or plasma glucose joseph urement (mass/volume)Ordered By: Luis Gutierrez on 05-26-2021 Glucose [Mass/Vol] 89 mg/dL 70-100 [facility] Comment on above: ADA recommended refe rence rangeRandom Glucose Reference Range is dependent on time and content of last meal. Glucose of more than 200 mg/dL in a nonstressed, ambulatory subject supports the diagnosis of Diabetes Mellitus. Serum or plasma intact parat hyroid hormone measurement (mass/volume)Ordered By: Luis Gutierrez on 05-26-2021 Parathyrin.intact [Mass/Vol] 31.2 pg/mL 12-88 [facility] Serum or plasma potassium me asurement (moles/volume)Ordered By: Luis Gutierrez on 05-26-2021 Potassium [Moles/Vol] 4.0 mmol/L 3.5-5.1 [facility] Serum or plasma sodium measu rement (moles/volume)Ordered By: Luis Gutierrez on 05-26-2021 Sodium [Moles/Vol] 137 mmol/L 136-146 [facility] Serum or plasma total carbon dioxide measurement (moles/volume)Ordered By: Luis Gutierrez on 05-26-2021 CO2 [Moles/Vol] 23.0 mmol/L 22.0-30.0 [facility] Serum or plasma urea nitroge n measurement (mass/volume)Ordered By: Luis Gutierrez on 05-26-2021 Urea nitrogen [Mass/Vol] 10 mg/dL 9- [facility] TSH DL <= 0.005 mIU/L QnOrde red By: Luis Gutierrez on 05-26-2021 TSH Qn 0.86 m[IU]/L 0.45-5.33 [facility] Thyroid Stimulating Hormoneo n 05-26-2021 TSH Qn 0.86 m[IU]/L Normal 0.45-5.33 [facility] Comment on above: Performed By: #### C A, TSH3, PTH #### [address] MG MAMM SCREEN 3D GEORGES CADon 05-22-2021 MG MAMM SCREEN 3D GEOR[place]ES CAD Patient: ALEXANDRA CERVANTES Exam Date: 05/22/2021 : 1950 Gender:F Ordering : DR LAURITA MORALES M.D. Admission #: [id number] Family : Order #: [id number] CLICK HERE TO VIEW EXAM RADIOLOGY REPORT [...] No Treatments None Family Cancers None LOCATION: [facility] BREAST COMPOSITION: Scattered areas fibroglandular density. [...] MD on 05/22/2021 at 12:06 Normal [facility] CT Chest w/Contraston 2021 CT [...] Fuentes Lion on 05/22/2021 1528 Normal [facility] Specialist [place] esophaguson 05-04-2021 [place] esophagus [facility] Main [address] [address] Fluoroscopy Report Signed Patient: Alexandra Cervantes MR#: [id number] 2 : 1950 Acct:[id number] Age/Sex: 71 / F ADM Date: 05/04/21 Loc: XD Room: Type: [facility] Attending Dr: Cy Sears MD Ordering [...] Kitchen Jr., M.D.05/04/2021 3:37 PM Dictation Location: [place] [address] Transcribed By: [facility] 05/04/211536 Dictated By: Selvin Kitchen Jr, MD 05/04/211531 Signed By: 05/04/[address] [facility] CBC AUTO DIFFon 04-20-2021 BASO # 0.1 103/ul Normal 0.0-0.[address] [facility] Comment on above: Performed By: #### C #### [facility] [address] [place] [address] Dr. Scooby Irvin Basophils/100 WBC (Bld) 0.4 % Normal 0.2-2.0 [facility] Comment on above: Performed By: #### C BC #### [facility] [address] [place] [address] Dr. Scooby Irvin EO # 0.0 103/ul Normal 0.0-0.[address] [facility] Comment on above: Performed By: #### C BC #### [facility] [address] [place] [address] Dr. Scooby Irvin Eosinophils/100 WBC (Bld) 0.2 % Critically low 0.9-7.0 [facility] Comment on above: Performed By: #### C BC #### [facility] [address] [place] [address] Dr. Scooby Irvin Erythrocyte distribution width (RBC) [Ratio] 16.7 % Critically high 11.0-15.0 [facility] Comment on above: Performed By: #### C BC #### [facility] [address] [place] [address] Dr. Scooby Irvin Hematocrit (Bld) [Volume fraction] 37.6 % Normal 36.0-48.0 [facility] Comment on above: Performed By: #### C BC #### [facility] [address] [place] [address] Dr. Scooby Irvin Hemoglobin (Bld) [Mass/Vol] 12.0 g/dL Normal 12.0-16.[address] [facility] Comment on above: Performed By: #### C BC #### [facility] [address] [place] [address] Dr. Scooby Irvin IG # 0.02 10e3/ul Normal 0.00-0.[address] [facility] Comment on above: Performed By: #### C BC #### [facility] [address] [place] [address] Dr. Scooby Irvin IG % 0.2 % Normal 0.0-0.[address] [facility] Comment on above: Performed By: #### C BC #### [facility] [address] [place] [address] Dr. Scooby Irvin LYMPH # 1.6 103/ul Normal 1.2-3.[address] [facility] Comment on above: Performed By: #### C BC #### [facility] [address] [place] [address] Dr. Scooby Irvin Lymphocytes/100 WBC (Bld) 13.6 % Critically low 20.5-60.0 [facility] Comment on above: Performed By: #### C BC #### [facility] [address] [place] [address] Dr. Scooby Irvin MANUAL DIFF REQ NO Normal [facility] Comment on above: Performed By: #### C BC #### [facility] [address] [place] [address] Dr. Scooby Irvin MCH (RBC) [Entitic mass] 28.6 pg Normal 26.7-34.0 [facility] Comment on above: Performed By: #### C BC #### [facility] [address] [place] [address] Dr. Scooby Irvin MCHC (RBC) [Mass/Vol] 31.9 g/dL Normal 29.9-35.2 [facility] Comment on above: Performed By: #### C BC #### [facility] [address] [place] [address] Dr. Scooby Irvin MCV (RBC) [Entitic vol] 89.5 fL Normal 81.0-99.0 [facility] Comment on above: Performed By: #### C BC #### [facility] [address] [place] [address] Dr. Scooby Irvin MONO # 0.7 103/ul Normal 0.3-0.[address] [facility] Comment on above: Performed By: #### C BC #### [facility] [address] [place] [address] Dr. Scooby Irvin Monocytes/100 WBC (Bld) 5.8 % Normal 1.7-12.[address] [facility] Comment on above: Performed By: #### C BC #### [facility] [address] [address] [address] Scooby Irvin NEUT # 9.1 103/ul Critically high 1.4-6.5 [facility] Comment on above: Performed By: #### C BC #### [facility] [address] [place] [address] Dr. Scooby Irvin Neutrophils/100 WBC (Bld) 79.8 % Critically high 43.0-75.0 [facility] Comment on above: Performed By: #### C BC #### [facility] [address] [place] [address] Dr. Scooby Irvin Platelet mean volume (Bld) [Entitic vol] 10.2 fL Normal 9.5-13.[address] [facility] Comment on above: Performed By: #### C BC #### [facility] [address] [place] [address] Dr. Scooby Irvin PLT 217 103/ul Normal 150-[address] [facility] Comment on above: Performed By: #### C BC #### [facility] [address] [place] [address] Dr. Scooby Irvin RBC 4.20 106/ul Normal 4.20-5.[address] [facility] Comment on above: Performed By: #### C BC #### [facility] [address] [place] [address] Dr. Scooby Irvin WBC 11.4 103/ul Critically high 4.0-11.[address] [facility] Comment on above: Performed By: #### C BC #### [facility] [address] [place] [address] Dr. Scooby Irvin PROF 14(COMP METB)on 022 Albumin [Mass/Vol] 3.9 g/dL Normal 3.5-5.[address] [facility] Comment on above: Performed By: #### C MP #### [facility] [address] [place] [address] Dr. Scooby Irvin Albumin/Globulin [Mass ratio] 1.1 {ratio} Normal [facility] Comment on above: Performed By: #### C MP #### [facility] [address] [place] [address] Dr. Scooyb Irvin ALP [Catalytic activity/Vol] 72 U/L Normal 38-[address] [facility] Comment on above: Performed By: #### C MP #### [facility] [address] [place] [address] Dr. Scooby Irvin ALT [Catalytic activity/Vol] 23 U/L Normal 9-52 [facility] Comment on above: Performed By: #### C MP #### [facility] [address] [place] [address] Dr. Scooby Irvin Anion gap [Moles/Vol] 10.2 mmol/L Normal [facility] Comment on above: Performed By: #### C MP #### [facility] [address] [place] [address] Dr. Scooby Irvin AST [Catalytic activity/Vol] 20 U/L Normal 14-36 [facility] Comment on above: Performed By: #### C MP #### [facility] [address] [place] [address] Dr. Scooby Irvin Bilirubin [Mass/Vol] 0.5 mg/dL Normal 0.2-1.[address] [facility] Comment on above: Performed By: #### C MP #### [facility] [address] [place] [address] Dr. Scooby Irvin Calcium [Mass/Vol] 8.8 mg/dL Normal 8.4-10.[address] [facility] Comment on above: Performed By: #### C MP #### [facility] [address] [place] [address] Dr. Scooby Irvin Chloride [Moles/Vol] 104 mmol/L Normal 98-[address] [facility] Comment on above: Performed By: #### C MP #### [facility] [address] [place] [address] Dr. Scooby Irvin CO2 [Moles/Vol] 28.0 mmol/L Normal 22.0-30.[address] [facility] Comment on above: Performed By: #### C MP #### [facility] [address] [place] [address] Dr. Scooby Irvin Creatinine [Mass/Vol] 0.87 mg/dL Normal 0.52-1.04 [facility] Comment on above: Performed By: #### C MP #### [facility] [address] [address] [address] Scooby Irvin EGFR-AF FAROESE >60 Normal >=[address] [facility] Comment on above: Performed By: #### C MP #### [facility] [address] [address] [address] Scooby Irvin EGFR-NON AF FAROESE >60 Normal >=[address] [facility] Comment on above: Performed By: #### C MP #### [facility] [address] [address] [address] Scooby Irvin Globulin (S) [Mass/Vol] 3.5 g/dL Normal [facility] Comment on above: Performed By: #### C MP #### [facility] [address] [place] [address] Dr. Scooby Irvin Glucose [Mass/Vol] 93 mg/dL Normal 74-106 [facility] Comment on above: Performed By: #### C MP #### [facility] [address] [place] [address] Dr. Scooby Irvin Potassium [Moles/Vol] 4.2 mmol/L Normal 3.4-5.0 [facility] Comment on above: Performed By: #### C MP #### [facility] [address] [place] [address] Dr. Scooby Irvin Protein [Mass/Vol] 7.4 g/dL Normal 6.1-8.[address] [facility] Comment on above: Performed By: #### C MP #### [facility] [address] [place] [address] Dr. Scooby Irvin Sodium [Moles/Vol] 138 mmol/L Normal 137-[address] [facility] Comment on above: Performed By: #### C MP #### [facility] [address] [place] [address] Dr. Scooby Irvin Urea nitrogen [Mass/Vol] 15.0 mg/dL Normal 7.0-17.[address] [facility] Comment on above: Performed By: #### C MP #### [facility] [address] [place], [place] [address] Dr. Scooby Irvin Urea nitrogen/Creatinine [Mass ratio] 17.2 mg/mg Normal [facility] Comment on above: Performed By: #### C JARED #### [facility] [address] [place], [place] [address] Dr[address] CT SKULL BASE [...] FUENTES BARRETO Date: 2021-04-07 08:23 Normal [facility] CT LUNG CANCER SCREENINGon 0 03-23-2021 CT [...] Date: 2021-03-23 09:57 Normal [facility] CBC AUTO DIFFon 03-09-2021 BASO # 0.1 103/ul Normal 0.0-0.1 [facility] Comment on above: Performed By: #### C BC #### [facility] [address] [address] [address] Scooby Irvin Basophils/100 WBC (Bld) 1.2 % Normal 0.2-2.[address] [facility] Comment on above: Performed By: #### C BC #### [facility] [address] [address] [address] Scooby Irvin EO # 0.1 103/ul Normal 0.0-0.7 [facility] Comment on above: Performed By: #### C BC #### [facility] [address] [address] [address] Scooby Irvin Eosinophils/100 WBC (Bld) 1.4 % Normal 0.9-7.0 [facility] Comment on above: Performed By: #### C BC #### [facility] [address] [place] [address] Dr. Scooby Irvin Erythrocyte distribution width (RBC) [Ratio] 16.3 % Critically high 11.0-15.0 [facility] Comment on above: Performed By: #### C BC #### [facility] [address] [place] [address] Dr. Scooby Irvin Hematocrit (Bld) [Volume fraction] 39.6 % Normal 36.0-48.0 [facility] Comment on above: Performed By: #### C BC #### [facility] [address] [place] [address] Dr. Scooby Irvin Hemoglobin (Bld) [Mass/Vol] 12.6 g/dL Normal 12.0-16.0 [facility] Comment on above: Performed By: #### C BC #### [facility] [address] [place] [address] Dr. Scooby Irvin IG # 0.01 10e3/ul Normal 0.00-0.03 [facility] Comment on above: Performed By: #### C BC #### [facility] [address] [place] [address] Dr. Scooby Irvin IG % 0.2 % Normal 0.0-0.5 [facility] Comment on above: Performed By: #### C BC #### [facility] [address] [place] [address] Dr. Scooby Irvin LYMPH # 1.6 103/ul Normal 1.2-3.[address] [facility] Comment on above: Performed By: #### C BC #### [facility] [address] [place] [address] Dr. Scooby Irvin Lymphocytes/100 WBC (Bld) 30.7 % Normal 20.5-60.0 [facility] Comment on above: Performed By: #### C BC #### [facility] [address] [place] [address] Dr. Scooby Irvin MANUAL DIFF REQ NO Normal [facility] Comment on above: Performed By: #### C BC #### [facility] [address] [address] [address] Scooby Irvin MCH (RBC) [Entitic mass] 28.4 pg Normal 26.7-34.[address] [facility] Comment on above: Performed By: #### C BC #### [facility] [address] [place] [address] Dr. Scooby Irvin MCHC (RBC) [Mass/Vol] 31.8 g/dL Normal 29.9-35.[address] [facility] Comment on above: Performed By: #### C BC #### [facility] [address] [place] [address] Dr. Scooby Irvin MCV (RBC) [Entitic vol] 89.2 fL Normal 81.0-99.[address] [facility] Comment on above: Performed By: #### C BC #### [facility] [address] [place] [address] Dr. Scooby Irvin MONO # 0.6 103/ul Normal 0.3-0.[address] [facility] Comment on above: Performed By: #### C BC #### [facility] [address] [place] [address] Dr. Scooby Irvin Monocytes/100 WBC (Bld) 11.5 % Normal 1.7-12.0 [facility] Comment on above: Performed By: #### C BC #### [facility] [address] [place] [address] Dr. Scooby Irvin NEUT # 2.8 103/ul Normal 1.4-6.[address] [facility] Comment on above: Performed By: #### C BC #### [facility] [address] [place] [address] Dr. Scooby Irvin Neutrophils/100 WBC (Bld) 55.0 % Normal 43.0-75.[address] [facility] Comment on above: Performed By: #### C BC #### [facility] [address] [place] [address] Dr. Scooby Irvin Platelet mean volume (Bld) [Entitic vol] 10.3 fL Normal 9.5-13.[address] [facility] Comment on above: Performed By: #### C BC #### [facility] [address] [place] [address] Dr. Scooby Irvin PLT 208 103/ul Normal 150-[address] [facility] Comment on above: Performed By: #### C BC #### [facility] [address] [place], [place] [id number] Dr. Scooby Irvin RBC 4.44 106/ul Normal 4.20-5.40 [facility] Comment on above: Performed By: #### C BC #### [facility] [address] [place] [address] Dr. Scooby Irvin WBC 5.1 103/ul Normal 4.0-11.0 [facility] Comment on above: Performed By: #### C BC #### [facility] [address] [place] [address] Dr. Scooby Irvin FREE T4on 03-09-2021 Free T4 [Mass/Vol] 1.15 ng/dL Normal 0.78-2.19 [facility] Comment on above: Performed By: #### C BC #### [facility] [address] [place] [address] Dr. Scooby Irvin LIPID PROFILEon 03-09-2021 CHOL-HDL RATIO NORM SEE BELOW Normal [facility] Comment on above: Result Comment: 3.3 - 4.4 LOW RISK 4.4 - 7.1 AVERAGE RISK 7.1 - 11.0 MODERATE RISK >11.0 HIGH RISK Performed By: #### L IPID, CMP, TSH #### [facility] [address] [place] [address] Dr. Scooby Irvin Cholesterol [Mass/Vol] 227 mg/dL Critically high <=[address] [facility] Comment on above: Performed By: #### L IPID, CMP, TSH #### [facility] [address] [place] [address] Dr. Scooby Irvin Cholesterol in HDL [Mass/Vol] 65 mg/dL Normal [facility] Comment on above: Performed By: #### L IPID, CMP, TSH #### [facility] [address] [place] [address] Dr. Scooby Irvin Cholesterol in LDL [Mass/Vol] 142.6 mg/dL Normal [facility] Comment on above: Performed By: #### L IPID, CMP, TSH #### [facility] [address] [address] [address] Scooby Irvin Cholesterol.total/Ch olesterol in HDL [Mass ratio] 3.5 {ratio} Normal [facility] Comment on above: Performed By: #### L IPID, CMP, TSH #### [facility] [address] [address] [address] Scooby Irvin HDL NORMAL > or = 60 mg/dl - LO W CARDIOVASCULAR RISK <40 mg/dl - HIGH CARDIOVASCULAR RISK Normal [facility] Comment on above: Performed By: #### L IPID, CMP, TSH #### [facility] [address] [place] [address] Dr. Scooby Irvin LDL CALC NORMAL SEE BELOW Normal [facility] Comment on above: Result Comment: <100 mg/dl OPTIMAL 100 - 129 mg/dl NEAR OR ABOVE OPTIMAL 130 - 159 mg/dl BORDERLINE HIGH 160 - 189 mg/dl HIGH >190 mg/dl VERY HIGH Performed By: #### L IPID, CMP, TSH #### [facility] [address] [address] [address] Scooby Irvin Triglyceride [Mass/Vol] 97 mg/dL Normal <=150 [facility] Comment on above: Performed By: #### L IPID, CMP, TSH #### [facility] [address] [place] [address] Dr. Scooby Irvin VLDL CALC 19.4 mg/dL Normal [facility] Comment on above: Performed By: #### L IPID, CMP, TSH #### [facility] [address] [address] [address] Scooby Irvin PROF 14(COMP METB)on 022 Albumin [Mass/Vol] 4.0 g/dL Normal 3.5-5.0 [facility] Comment on above: Performed By: #### L IPID, CMP, TSH #### [facility] [address] [address] [address] Scooby Irvin Albumin/Globulin [Mass ratio] 1.1 {ratio} Normal [facility] Comment on above: Performed By: #### L IPID, CMP, TSH #### [facility] [address] [place] [address] Dr. Scooby Irvin ALP [Catalytic activity/Vol] 80 U/L Normal 38-126 [facility] Comment on above: Performed By: #### L IPID, CMP, TSH #### [facility] [address] [place] [address] Dr. Scooby Irvin ALT [Catalytic activity/Vol] 35 U/L Normal 9-52 [facility] Comment on above: Performed By: #### L IPID, CMP, TSH #### [facility] [address] [place] [address] Dr. Scooby Irvin Anion gap [Moles/Vol] 11.8 mmol/L Normal [facility] Comment on above: Performed By: #### L IPID, CMP, TSH #### [facility] [address] [place] [address] Dr. Scooby Irvin AST [Catalytic activity/Vol] 24 U/L Normal 14-36 [facility] Comment on above: Performed By: #### L IPID, CMP, TSH #### [facility] [address] [place] [address] Dr. Scooby Irvin Bilirubin [Mass/Vol] 0.5 mg/dL Normal 0.2-1.3 [facility] Comment on above: Performed By: #### L IPID, CMP, TSH #### [facility] [address] [place] [address] Dr. Scooby Irvin Calcium [Mass/Vol] 9.3 mg/dL Normal 8.4-10.[address] [facility] Comment on above: Performed By: #### L IPID, CMP, TSH #### [facility] [address] [place] [address] Dr. Scooby Irvin Chloride [Moles/Vol] 105 mmol/L Normal 98-[address] [facility] Comment on above: Performed By: #### L IPID, CMP, TSH #### [facility] [address] [place] [address] Dr. Scooby Irvin CO2 [Moles/Vol] 26.2 mmol/L Normal 22.0-30.0 [facility] Comment on above: Performed By: #### L IPID, CMP, TSH #### [facility] [address] [address] [address] Scooby Irvin Creatinine [Mass/Vol] 0.83 mg/dL Normal 0.52-1.04 [facility] Comment on above: Performed By: #### L IPID, CMP, TSH #### [facility] [address] [address] [address] Scooby Irvin EGFR-AF FAROESE >60 Normal >=60 [facility] Comment on above: Performed By: #### L IPID, CMP, TSH #### [facility] [address] [address] [address] Scooby Irvin EGFR-NON AF FAROESE >60 Normal >=60 [facility] Comment on above: Performed By: #### L IPID, CMP, TSH #### [facility] [address] [address] [address] Scooby Irvin Globulin (S) [Mass/Vol] 3.8 g/dL Normal [facility] Comment on above: Performed By: #### L IPID, CMP, TSH #### [facility] [address] [address] [address] Scooby Irvin Glucose [Mass/Vol] 112 mg/dL Critically high 74-106 [facility] Comment on above: Performed By: #### L IPID, CMP, TSH #### [facility] [address] [address] [address] Scooby Irvin Potassium [Moles/Vol] 4.0 mmol/L Normal 3.4-5.0 [facility] Comment on above: Performed By: #### L IPID, CMP, TSH #### [facility] [address] [address] [address] Scooby Irvin Protein [Mass/Vol] 7.8 g/dL Normal 6.1-8.2 [facility] Comment on above: Performed By: #### L IPID, CMP, TSH #### [facility] [address] [address] [address] Scooby Irvin Sodium [Moles/Vol] 139 mmol/L Normal 137-145 [facility] Comment on above: Performed By: #### L IPID, CMP, TSH #### [facility] [address] [address] [address] Scooby Irvin Urea nitrogen [Mass/Vol] 15.0 mg/dL Normal 7.0-17.0 [facility] Comment on above: Performed By: #### L IPID, CMP, TSH #### [facility] [address] [address] [address] Scooby Irvin Urea nitrogen/Creatinine [Mass ratio] 18.1 mg/mg Normal [facility] Comment on above: Performed By: #### L IPID, CMP, TSH #### [facility] [address] [place] [address] Dr. Scooby Irvin TSHon 03-09-2021 TSH 2.761 uIU/mL Normal 0.470-4.68 0 [facility] Comment on above: Performed By: #### L IPID, CMP, TSH #### [facility] [address] [place] [address] Dr. Scooby Irvin TSH RANGE SEE BELOW Normal [facility] Comment on above: Result Comment: <0.3 4 UIU/ml HYPERTHYROID 0.34-5.60 UIU/ml EUTHYROID >5.60 UIU/ml HYPOTHYROID Performed By: #### L IPID, CMP, TSH #### [facility] [address] [place] [address] Dr. Scooby Irvin Vital Signs Date Time Vital Sign Value Performing Clinician Facility 09-30-2024 09:54-0400 Body height 140.97 cm Laurita Morales MD Work Phone: [facility] 09-30-2024 09:54-0400 Body mass index (BMI) [Ratio] 37.5 kg/m2 Laurita Morales MD Work Phone: [facility] 09-30-2024 09:54-0400 Body weight 74.6 kg Laurita Morales MD Work Phone: [facility] 06-23-2024 13:30-0400 Body height 149.9 cm Dolly ORR Work Phone: [facility] 06-23-2024 13:30-0400 Body mass index (BMI) [Ratio] 32.11 kg/m2 Dolly ORR Work Phone: [facility] 06-23-2024 13:30-0400 Body weight 72.12 kg Dolly ORR Work Phone: [facility] 04-21-2024 08:53-0400 Body height 140.97 cm [facility] 04-21-2024 08:53-0400 Body mass index (BMI) [Ratio] 36.5 kg/m2 [facility] 04-21-2024 08:53-0400 Body weight 72.57 kg [facility] 04-21-2024 08:53-0400 Diastolic blood pressure 70 mm[Hg] [facility] 04-21-2024 08:53-0400 Heart rate 80 /min [facility] 04-21-2024 08:53-0400 Systolic blood pressure 128 mm[Hg] [facility] 03-20-2024 10:54-0500 Blood Pressure Location Salazar Sarmini [facility] 03-20-2024 10:54-0500 Diastolic blood pressure 74 mm[Hg] Salazar Sarmini [facility] 03-20-2024 10:54-0500 Heart rate 71 /min Salazar Sarmini [facility] 03-20-2024 10:54-0500 Systolic blood pressure 129 mm[Hg] Salazar Sarmini [facility] 01-30-2024 13:46-0500 Diastolic blood pressure 82 mm[Hg] Salazar Sarmini [facility] 01-30-2024 13:46-0500 Mean blood pressure 104 mm[Hg] Salazar Sarmini [facility] 01-30-2024 13:46-0500 Systolic blood pressure 148 mm[Hg] Salazar Sarmini [facility] 01-30-2024 13:41-0500 Blood Pressure Location Salazar Sarmini [facility] 01-30-2024 13:41-0500 Diastolic blood pressure 85 mm[Hg] [facility] [facility] 01-30-2024 13:41-0500 Heart rate 80 /min Salazar Sarmini [facility] 01-30-2024 13:41-0500 Systolic blood pressure 157 mm[Hg] Salazar Sarmini [facility] 01-15-2024 13:25-0500 Diastolic blood pressure 86 mm[Hg] Salazar Sarmini [facility] 01-15-2024 13:25-0500 Heart rate 79 /min Salazar Sarmini [facility] 01-15-2024 13:25-0500 Mean blood pressure 108 mm[Hg] Salazar Sarmini [facility] 01-15-2024 13:25-0500 Respiratory rate 17 /min Salazar Sarmini [facility] 01-15-2024 13:25-0500 SaO2% (BldA) [Mass fraction] 96 % Salazar Sarmini [facility] 01-15-2024 13:25-0500 Systolic blood pressure 153 mm[Hg] Salazar Sarmini [facility] 01-15-2024 13:15-0500 Diastolic blood pressure 81 mm[Hg] Salazar Sarmini [facility] 01-15-2024 13:15-0500 Heart rate 79 /min Salazar Sarmini [facility] 01-15-2024 13:15-0500 Mean blood pressure 103 mm[Hg] Salazar Sarmini [facility] 01-15-2024 13:15-0500 Respiratory rate 17 /min Salazar Sarmini [facility] 01-15-2024 13:15-0500 SaO2% (BldA) [Mass fraction] 96 % Salazar Sarmini [facility] 01-15-2024 13:15-0500 Systolic blood pressure 148 mm[Hg] Salazar Sarmini [facility] 01-15-2024 13:00-0500 Diastolic blood pressure 70 mm[Hg] Salazar Sarmini [facility] 01-15-2024 13:00-0500 Heart rate 72 /min Salazar Sarmini [facility] 01-15-2024 13:00-0500 Mean blood pressure 93 mm[Hg] Salazar Sarmini [facility] 01-15-2024 13:00-0500 SaO2% (BldA) [Mass fraction] 97 % Salazar Sarmini [facility] 01-15-2024 13:00-0500 Systolic blood pressure 140 mm[Hg] Salazar Sarmini [facility] 01-15-2024 12:50-0500 Body temperature 98.24 [degF] Salazar Sarmini [facility] 01-15-2024 12:44-0500 Respiratory rate 18 /min Salazar Sarmini [facility] 01-15-2024 12:40-0500 Respiratory rate 19 /min Salazar Sarmini [facility] 01-15-2024 12:35-0500 Respiratory rate 19 /min Salazar Sarmini [facility] 01-15-2024 10:59-0500 Blood Pressure Location Salazar Sarmini [facility] 01-15-2024 10:59-0500 Body temperature 98.24 [degF] Salazar Sarmini [facility] 12-04-2023 08:58-0400 Blood Pressure Location Salazar Sarmini [facility] 12-04-2023 08:58-0400 Diastolic blood pressure 84 mm[Hg] Salazar Sarmini [facility] 12-04-2023 08:58-0400 Heart rate 84 /min Salazar Sarmini [facility] 12-04-2023 08:58-0400 Respiratory rate 16 /min Salazar Sarmini [facility] 12-04-2023 08:58-0400 Systolic blood pressure 156 mm[Hg] Salazar Sarmini [facility] 12-04-2023 08:49-0400 Blood Pressure Location Martin Tatum [facility] 12-04-2023 08:49-0400 Respiratory rate 16 /min Martin Tatum [facility] 09-04-2022 09:00-0400 Body height 140.97 cm Laurita Morales Other [employer] Other 09-04-2022 09:00-0400 Body mass index (BMI) [Ratio] 36.74 kg/m2 Laurita Morales Other [employer] Other 09-04-2022 09:00-0400 Body weight 73.03 kg Laurita Morales Other [employer] Other 09-04-2022 09:00-0400 Diastolic blood pressure 78 mm[Hg] Laurita Morales Other [employer] Other 09-04-2022 09:00-0400 SaO2% (BldA) [Mass fraction] 97 % Laurita Morales Other [employer] Other 09-04-2022 09:00-0400 Systolic blood pressure 132 mm[Hg] Laurita Morales Other [employer] Other 03-01-2022 10:30-0500 Body height 140.97 cm Laurita Morales Other [employer] Other 03-01-2022 10:30-0500 Body mass index (BMI) [Ratio] 36.06 kg/m2 Laurita Morales Other [employer] Other 03-01-2022 10:30-0500 Body weight 71.67 kg Laurita Morales Other [employer] Other 03-01-2022 10:30-0500 Diastolic blood pressure 84 mm[Hg] Laurita Morales Other [employer] Other 03-01-2022 10:30-0500 SaO2% (BldA) [Mass fraction] 98 % Laurita Morales Other [employer] Other 03-01-2022 10:30-0500 Systolic blood pressure 132 mm[Hg] Laurita Morales Other [employer] Other 11-08-2021 10:17-0400 Diastolic blood pressure 74 mm[Hg] Farooq SALAM [facility] 11-08-2021 10:17-0400 Mean blood pressure 99 mm[Hg] Farooq SALAM [facility] 11-08-2021 10:17-0400 Systolic blood pressure 148 mm[Hg] Farooq SALAM [facility] 11-08-2021 10:15-0400 Blood Pressure Location Farooq SALAM [facility] 11-08-2021 10:15-0400 Diastolic blood pressure 95 mm[Hg] Farooq SALAM [facility] 11-08-2021 10:15-0400 Heart rate 78 /min Farooq SALAM [facility] 11-08-2021 10:15-0400 Respiratory rate 16 /min Farooq SALAM [facility] 11-08-2021 10:15-0400 Systolic blood pressure 159 mm[Hg] Farooq SALAM [facility] 05-10-2021 11:11-0400 Diastolic blood pressure 90 mm[Hg] Farooq SALAM [facility] 05-10-2021 11:11-0400 Systolic blood pressure 180 mm[Hg] Farooq SALAM [facility] Encounters Encounter Date Encounter Type Care Provider Facility Start: 09-30-2024 End: 09-30-2024 ambulatory Laurita Morales MD Work Phone: [facility] Work Phone: Start: 09-30-2024 End: 09-30-2024 Patient encounter procedure Nasim Segal [facility] Work Phone: Start: 08-20-2024 End: 08-20-2024 Bamboo flowsheet Dolly ORR Work Phone: [facility] Start: 08-20-2024 End: 08-20-2024 Bamboo flowsheet Dolly ORR Work Phone: [facility] Start: 08-20-2024 End: 08-20-2024 Postop follow up visit related to original px Dolly ORR Work Phone: [facility] Comment on above: S/P right knee arthr oscopy (Primary Dx) Start: 08-20-2024 End: 08-20-2024 ambulatory DOLYL VERAS Not Available Start: 08-10-2024 End: 08-10-2024 ambulatory Zulay Cook MD Facility:[facility] Start: 07-22-2024 End: 07-22-2024 Bamboo flowsheet Dolly ORR Work Phone: [facility] Start: 07-22-2024 End: 07-22-2024 Bamboo flowsheet Dolly Veras PA Work Phone: [facility] Start: 07-22-2024 End: 07-22-2024 Postop follow up visit related to original px Dolly ORR Work Phone: [facility] Comment on above: S/P right knee arthr oscopy (Primary Dx) Start: 07-22-2024 End: 07-22-2024 ambulatory DOLLY VERAS Not Available Start: 07-03-2024 End: 07-06-2024 Refill Abhi Ramires PRINTING MACHINIST Work Phone: [facility] Comment on above: Acute medial meniscu [...] Clinisync Result Encounter Dolly ORR Work Phone: [facility] External Department Unsolicited Start: 06-24-2024 End: 06-24-2024 Clinisync Result Encounter Dolly ORR Work Phone: [facility] External Department Unsolicited Start: 06-23-2024 End: 06-23-2024 Bamboo flowsheet Dolly ORR Work Phone: [facility] Start: 06-23-2024 End: 06-23-2024 Bamboo flowsheet Dolly ORR Work Phone: [facility] Start: 06-23-2024 End: 06-23-2024 Patient encounter procedure Dolly ORR Work Phone: [facility] Comment on above: Pre-op examination ( [...] Facility: [facility] Start: 04-21-2024 End: 04-21-2024 ambulatory [facility] Work Phone: Start: 04-21-2024 End: 04-21-2024 Patient encounter procedure [facility] Work Phone: Start: 04-15-2024 End: 04-15-2024 Office [...] 03-20-2024 End: 03-20-2024 ambulatory Salazar Talal Sarmini Facility:[facility] Start: 03-20-2024 End: 03-20-2024 Patient encounter procedure Salazar Bradenal Sarmini [facility] Start: 03-18-2024 End: 03-18-2024 Office outpatient visit 15 minutes Jr. Larissa Guerrero DO Work Phone: [facility] Comment on above: Left knee pain, unsp ecified chronicity (Primary Dx); Internal derangement of left knee; Arthritis of left knee Start: 03-18-2024 End: 03-18-2024 ambulatory LARISSA CABRERA Not Available Start: 03-02-2024 End: 03-02-2024 Telephone encounter Adali Giordano PRINTING MACHINIST Work Phone: [facility] Comment on above: MRI Start: 02-17-2024 End: 02-17-2024 Bamboo flowsheet Adali Pompa Apling PRINTING MACHINIST Work Phone: [facility] Start: 02-17-2024 End: 02-17-2024 Bamboo flowsheet Adali Pompa Apling PRINTING MACHINIST Work Phone: [facility] Start: 02-17-2024 End: 02-17-2024 Office outpatient visit 15 minutes Adali Pompa Apling PRINTING MACHINIST Work Phone: [facility] Comment on above: S/P left knee arthro scopy (Primary Dx); Left knee pain, unspecified chronicity; Arthritis of left knee; Internal derangement of left knee Start: 02-17-2024 End: 02-17-2024 ambulatory ADALI B APLING Not Available Start: 01-30-2024 End: 01-30-2024 ambulatory Salazar Talal Sarmini Facility:[facility] Start: 01-30-2024 End: 01-30-2024 Patient encounter procedure Martin Felicianoal Deepti [facility] Start: 01-20-2024 End: 01-20-2024 Bamboo flowsheet Adali Giordano PRINTING MACHINIST Work Phone: [facility] Start: 01-20-2024 End: 01-20-2024 Bamboo flowsheet Adali Giordano PRINTING MACHINIST Work Phone: [facility] Start: 01-20-2024 End: 01-20-2024 Office outpatient visit 25 minutes Adali Giordano PRINTING MACHINIST Work Phone: [facility] Comment on above: S/P left knee arthro scopy (Primary Dx); Left knee pain, unspecified chronicity; Arthritis of left knee Start: 01-20-2024 End: 01-20-2024 ambulatory ADALI GIORDANO Not Available Start: 01-15-2024 End: 01-15-2024 Patient encounter procedure Martin Tatum [facility] Start: 12-31-2023 End: 12-31-2023 Bamboo flowsheet Abhi Ramires PRINTING MACHINIST Work Phone: [facility] Start: 12-31-2023 End: 12-31-2023 Bamboo flowsheet Abhi Ramires PRINTING MACHINIST Work Phone: [facility] Start: 12-31-2023 End: 12-31-2023 Postop follow up visit related to original px Abhi Ramires PRINTING MACHINIST Work Phone: [facility] Comment on above: S/P left knee arthro scopy (Primary Dx); Left knee pain, unspecified chronicity Start: 12-31-2023 End: 12-31-2023 ambulatory ABHI RAMIRES Not Available Start: 12-06-2023 End: 12-06-2023 ambulatory Salazar Talal Sarmini Facility[facility] Start: 12-06-2023 End: 12-06-2023 Lab Drop off Salazar Talal [facility] Start: 12-04-2023 End: 12-04-2023 ambulatory Salazar Talal Sarmini Facility:[facility] Start: 12-04-2023 End: 12-04-2023 Patient encounter procedure Salazar Talal Sarmini [facility] Start: 12-04-2023 ambulatory Salazar Talal [facility] Facility:[facility] Start: 12-04-2023 End: 12-04-2023 Patient encounter procedure Salazar Talal Sarmini [facility] Start: 11-26-2023 ambulatory Salazar Levymini Facili ty:[facility] Start: 11-13-2023 End: 11-13-2023 Bamboo flowsheet Adali Giordano PRINTING MACHINIST Work Phone: [facility] Start: 11-13-2023 End: 11-13-2023 Bamboo flowsheet Adali Giordano PRINTING MACHINIST Work Phone: [facility] Start: 11-13-2023 End: 11-13-2023 Postop follow up visit related to original px Adali Giordano PRINTING MACHINIST Work Phone: [facility] Comment on above: Arthritis of left kn ee (Primary Dx); S/P left knee arthroscopy Start: 11-13-2023 End: 11-13-2023 ambulatory ADALI GIORDANO Not Available Start: 10-16-2023 End: 10-16-2023 Bamboo flowsheet Adali Giordano PRINTING MACHINIST Work Phone: [facility] Start: 10-16-2023 End: 10-16-2023 Bamboo flowsheet Adali Giordano PRINTING MACHINIST Work Phone: [facility] Start: 10-16-2023 End: 10-16-2023 Postop follow up visit related to original px Adali Giordano PRINTING MACHINIST Work Phone: [facility] Comment on above: Arthritis of left kn ee (Primary Dx); S/P left knee arthroscopy Start: 10-16-2023 End: 10-16-2023 ambulatory ADALI GIORDANO Not Available Start: 10-08-2023 End: 10-08-2023 Refill Abhi Ramires PRINTING MACHINIST Work Phone: [facility] Comment on above: Post-op pain (Primar y Dx) Start: 09-10-2023 End: 09-10-2023 ambulatory DANIELLE Fish JOHN Not Available Start: 09-09-2023 Patient encounter procedure [facility] Start: 08-26-2023 End: 08-26-2023 ambulatory ADALI Pompa ANNETTE Not Available Start: 03-07-2023 End: 03-07-2023 ambulatory Laurita Morales Other [employer] Other Start: 03-07-2023 Office outpatient vi sit 15 minutes Laurita Morales [facility] Start: 09-20-2022 End: 09-20-2022 ambulatory Laurita Morales Other [employer] Other Start: 09-20-2022 Telephone encounter Laurita Morales [facility] Start: 09-04-2022 End: 09-04-2022 ambulatory Laurita Morales Other [employer] Other Start: 09-04-2022 Patient encounter procedure Laurita Morales [facility] Start: 04-19-[address] LAURITA MORALES Facil ity:[facility] Start: 03-01-2022 End: 03-01-2022 ambulatory Laurita Morales Other [employer] Other Start: 03-01-2022 Office outpatient vi sit 15 minutes Laurita Morales [facility] Start: 01-18-2022 End: 01-19-[address] LAURITA MORALES Facility:[facility] Start: 11-21-2021 End: 11-22-2021 ambulatory CAPRI FULLER Facility:[facility] Start: 11-08-2021 End: 11-08-2021 Patient encounter procedure Capri FULLER [facility] Start: 10-19-2021 End: 10-20-[address] LAURITA MORALES Facility:[facility] Start: 09-27-2021 End: 09-28-[address] LAURITA MORALES Facility:[facility] Start: 09-26-2021 End: 09-26-[address] LAURITA MORALES Facility:[facility] Start: 09-25-2021 Encounter for preprocedural laboratory examination DR RADHA IRAHETA [facility] Start: 09-22-2021 End: 09-23-[address] LAURITA MORALES Facility:[facility] Start: 09-22-2021 End: 09-23-2021 Encounter for preprocedural laboratory examination DR LAURITA MOARLES Facility:[facility] Start: 09-11-[address] LAURITA MORALES Facil ity:[facility] Start: 09-06-2021 End: 09-07-2021 ambulatory ROBERTO MCNALLY Facility:[facility] Start: 08-30-2021 Adult health examination Malia Morales Other [employer] Other Start: 06-22-2021 End: 06-23-2021 ambulatory CAPRI FULLER Facility:[facility] Start: 05-31-2021 End: 05-31-2021 ambulatory Luis Gutierrez Facility:[facility] Start: 05-26-2021 End: 05-26-2021 ambulatory Laurita Morales Facility:[facility] Start: 05-26-2021 End: 05-26-2021 Patient encounter procedure MD Cy Sears Work Phone: [facility] Start: 05-22-2021 End: 05-23-[address] LAURITA MORALES Facility:[facility] Start: 05-10-2021 End: 05-10-2021 Patient encounter procedure Farooq SALAM [facility] Start: 05-04-2021 End: 05-04-2021 ambulatory Cy Sears Facility:[facility] Start: 05-04-2021 End: 05-04-2021 Patient encounter procedure MD Cy Sears Work Phone: [facility] [place] Start: 04-20-2021 End: 04-21-2021 ambulatory CAPRI FULLER [...] ORMED BY: [facility] [address] [place] [address] PATHOLOGIST CALENDER LET OFF HELPER TRICIA OSHEA M.D. Start: 02-16-2020 Colonoscopy Abhi Ramires NP Work Phone: Start: 02-16-2020 Colonoscopy w/biopsy single/multiple Capri FULLER Colonoscopy Capri FULLER History of appendectomy Muha mmad [facility] History of thyroidectomy [facility] ammad [facility] Screening for malign ant neoplasm of breast Laurita Morales Other Plan of Treatment Date Care Activity Detail Author Start: 01-14-2034 Screening for malignant neoplasm of colon [facility] Start: 02-15-2030 Screening for malignant neoplasm of colon [facility] Start: 10-12-2024 Influenza vaccination Influenza Vacc ine (#1) [facility] Start: 09-30-2024 Patient referral [facility] Work Phone: Start: 08-20-2024 End: 08-20-2024 Patient encounter procedure [facility] Comment on above: S/P right knee arthr oscopy (Primary Dx) Start: 07-22-2024 End: 07-22-2024 Patient encounter procedure [facility] Comment on above: S/P right knee arthr oscopy (Primary Dx) Start: 07-21-2024 End: 07-21-2024 Patient encounter procedure 07/21/2024 11:15 AM EDT Office Visit [facility] [address] [place] [address] Dolly Veras PA [address] [place] [address] [facility] Start: 06-30-2024 End: 06-30-2024 ambulatory 06/30/2024 9:30 AM EDT Evaluation [facility] [address] [place] [id number] Sofia Bull, PT [facility] Start: 06-23-2024 End: 06-23-2025 Basic metabolic 1998 panel - Serum or Plasma Basic metabolic panel Lab Routine Pre-op examination Expected: 06/23/2024 (Approximate), Expires: 06/23/2025 [facility] Work Phone: Comment on above: Expected: 06/23/2024 (Approximate), Expires: 06/23/2025 Start: 06-23-2024 End: 06-23-2024 Patient encounter procedure [facility] Comment on above: Pre-op examination ( Primary Dx) Start: 05-13-2024 End: 05-13-2024 Patient encounter procedure [facility] Comment on above: Arrived Start: 04-15-2024 End: 04-15-2024 Patient encounter procedure 04/15/2024 2:15 PM EST Office Visit [facility] [address] [place] [address] Jr. Larissa Guerrero DO [address] [place] [address] Acute pain of left knee [facility] [...] [facility]THOPAEDICS [address] [place] [id number] Adali Giordano NP [address] [place] [address] S/P left knee arthroscopy (Primary Dx); Left [...] [facility] [address] [place] [id number] Abhi Ramires, PRINTING MACHINIST [address] [place] [address] Arrived [facility] Comment on above: Arrived Start: 11-13-2023 End: 11-13-2023 Patient encounter procedure [facility] Comment on above: Arthritis of left kn ee (Primary Dx); S/P left knee arthroscopy Start: 10-16-2023 End: 10-16-2023 Patient encounter procedure [facility] Comment on above: Arrived Start: 10-13-2023 Influenza vaccination Influenza Vacc ine (#1) [facility] Start: 10-09-2023 End: 10-09-2023 Patient encounter procedure 10/09/2023 11:30 AM EDT Procedure Visit [facility] Danielle Curran DO [address] [place] [address] [facility] Start: 1950 Screening for malignant neoplasm of colon [facility] Patient referral [facility] Work Phone: XR Lumbar spine Views [facility] Immunizations Immunization Date Immunization Notes Care Provider Fa anibal 11-13-2023 influenza virus vaccine, unspecified formulation Martin Tatum [facility] 12-03-2022 ABRYSVO - Respirator y syncytial virus (RSV), vaccine, bivalent, protein subunit RSV prefusion F, diluent reconstituted, 0.5 mL, PF Abhi Katie PRINTING MACHINIST Work Phone: [facility] 12-03-2022 SARS-COV-2 (COVID-19 ) vaccine, mRNA, spike protein, LNP, PF, 50 mcg/0.5 mL Abhi Ramires PRINTING MACHINIST Work Phone: [facility] 11-07-2022 Influenza, Seasonal, Quadrivalent, Adjuvanted Abhi Katie PRINTING MACHINIST Work Phone: [facility] 11-07-2022 influenza virus vaccine, unspecified formulation Abhi Katie PRINTING MACHINIST Work Phone: [facility] 10-01-2022 zoster vaccine recombinant Abhi Katie PRINTING MACHINIST Work Phone: [facility] 07-18-2022 zoster vaccine recombinant Abhi Ramires PRINTING MACHINIST Work Phone: [facility] 11-21-2021 influenza virus vaccine, unspecified formulation Salazar Levylucero [facility] 11-21-2021 Seasonal trivalent influenza vaccine, adjuvanted, preservative free Abhi Katie PRINTING MACHINIST Work Phone: [facility] 10-27-2021 SARS-CoV-2 (COVID-19 ) [id number] Martin Tatum [facility] Comment on above: Result Comment: 2023: [id number] 12-09-2020 COVID-19 mRNA-[id number] (Moderna) MD Cy Sears Work Phone: [facility] Comment on above: Result Comment: 2023: [id number] 11-15-2020 influenza virus vaccine, split virus (incl. purified surface antigen) Laurita Morales Other [employer] Other 11-15-2020 influenza virus vaccine, unspecified formulation Abhi Ramires PRINTING MACHINIST Work Phone: [facility] 11-11-2020 influenza virus vaccine, unspecified formulation Capri FULLER [facility] 04-26-2020 COVID-19 mRNA-[id number] (Moderna) MD Cy Sears Work Phone: [facility] 03-31-2020 SARS-CoV-2 (COVID-19 ) mRNA-[id number] vaccine Salazar Sarmini [facility] 03-23-2020 COVID-19 mRNA-[id number] (Moderna) MD Cy Sears Work Phone: [facility] 11-20-2019 influenza virus vaccine, split virus (incl. purified surface antigen) Laurita Morales Other [employer] Other 11-20-2019 influenza virus vaccine, unspecified formulation Abhi Ramires PRINTING MACHINIST Work Phone: [facility] 07-09-2018 zoster vaccine, live Abhi O sonalen PRINTING MACHINIST Work Phone: [facility] 11-20-2017 pneumococcal polysaccharide vaccine, 23 valent Abhi Katie PRINTING MACHINIST Work Phone: [facility] 11-14-2017 influenza virus vaccine, unspecified formulation Salazar Sarmini [facility] 11-14-2017 pneumococcal polysaccharide vaccine, 23 valent Abhi Katie PRINTING MACHINIST Work Phone: [facility] 11-14-2017 Seasonal trivalent influenza vaccine, adjuvanted, preservative free Abhi Ramires PRINTING MACHINIST Work Phone: [facility] 10-24-2016 influenza virus vaccine, split virus (incl. purified surface antigen) Laurita Morales Other [employer] Other 10-24-2016 influenza virus vaccine, unspecified formulation Salazar Sarmini [facility] 10-24-2016 influenza, high dose seasonal, preservative-free Abhi Ramires PRINTING MACHINIST Work Phone: [facility] 10-24-2016 pneumococcal conjuga te vaccine, 13 valent Laurita Morales Other [facility] [employer] Other 11-08-2015 influenza virus vaccine, unspecified formulation Salazar Sarmini [facility] 11-08-2015 Seasonal trivalent influenza vaccine, adjuvanted, preservative free Abhi Ramires NP Work Phone: [facility] 11-16-2014 influenza virus vaccine, unspecified formulation Salazar Sarmini [facility] 11-16-2014 influenza, seasonal, injectable, preservative free Abhi Ramires NP Work Phone: [facility] 08-31-2014 tetanus and diphther ia toxoids, adsorbed, preservative free, for adult use (5 Lf of tetanus toxoid and 2 Lf of diphtheria toxoid) Abhi Ramires NP Work Phone: [facility] 08-31-2014 tetanus toxoid, reduced diphtheria toxoid, and acellular pertussis vaccine, adsorbed Laurita Morales Other [facility] [employer] Other 11-30-2013 pneumococcal polysaccharide vaccine, 23 valent Laurita Morales Other [facility] [employer] Other 03-24-2013 zoster vaccine, live Abhi daly NP Work Phone: [facility] 11-11-2012 influenza virus vaccine, unspecified formulation Salazar Levymini [facility] 11-11-2012 influenza, seasonal, injectable Abhi Ramires NP Work Phone: [facility] 01-29-2003 hepatitis B vaccine, adult dosage Abhi Ramires NP Work Phone: [facility] 08-10-2002 hepatitis B vaccine, adult dosage Abhi Ramires NP Work Phone: [facility] 07-08-2002 hepatitis B vaccine, adult dosage Abhi Ramires NP Work Phone: [facility] 07-08-2002 TD(adult) unspecifie d formulation; Translations: [Td(adult) unspecified formulation] Abhi Ramires PRINTING MACHINIST Work Phone: [facility] NEGATED: Highlighted row has not occurred!11-08-2021 influenza virus vaccine, unspecified formulation Capri FULLER [facility] Health Payers Date Payer Category Payer Self-pay [id number] 2021 Private Health Insurance [id number] 2021 Private Health Insurance CLI [id number] 2013 Medicare [id number] 1959 Medicare [id number] 1959 Unknown [id number] 1948 Unknown [id number] 2.16.84 0.1.203185.3.579.2.593 1948 Unknown [id number] 2.16.84 0.1.156243.3.579.2.593 1948 Unknown [id number] 2.16.84 0.1.430078.3.579.2.593 1948 Unknown [id number] 2.16.84 0.1.212579.3.579.2.593 1948 Unknown [id number] 2.16.84 0.1.441384.3.579.2.593 1948 Unknown [id number] 2.16.84 0.1.577135.3.579.2.593 1948 Unknown [id number] 2.16.84 0.1.837015.3.579.2.593 1948 Unknown [id number] 2.16.84 0.1.041958.3.579.2.593 1948 Unknown [id number] 2.16.84 0.1.410716.3.579.2.593 1948 Unknown [id number] 2.16.84 0.1.999517.3.579.2.593 1948 Unknown [id number] 2.16.84 0.1.527010.3.579.2.593 1948 Unknown [id number] 2.16.84 0.1.397082.3.579.2.593 1948 Unknown [id number] 2.16.84 0.1.068267.3.579.2.593 1948 Unknown [id number] 2.16.84 0.1.848890.3.579.2.593 1948 Unknown [id number] 2.16.84 0.1.534128.3.579.2.593 1948 Unknown [id number] 2.16.84 0.1.862912.3.579.2.593 1948 Unknown [id number] 2.16.84 0.1.704552.3.579.2.593 1948 Unknown [id number] 2.16.8 40.1.706681.3.579.2.727 1948 Unknown [id number] 2.16.8 40.1.998582.3.579.2.727 1948 Unknown [id number] 2.16.8 40.1.321302.3.579.2.727 1948 Unknown [id number] 2.16.8 40.1.885780.3.579.2.727 1948 Unknown [id number] 2.16.8 40.1.967013.3.579.2.1259 1948 Unknown [id number] 2.16.8 40.1.995395.3.579.2.1259 1948 Unknown [id number] 2.16.84 0.1.266537.3.579.2.125 1948 Unknown [id number] 2.16.84 0.1.657930.3.579.2.1259 1948 Unknown [id number] 2.16.84 0.1.209060.3.579.2.9 1948 Unknown [id number] 2.16.84 0.1.304070.3.579.2.1259 1948 Unknown [id number] 2.16.84 0.1.739015.3.579.2.1258 1948 Unknown [id number] 2.16.84 0.1.156138.3.579.2.1259 1948 Unknown [id number] 2.16.84 0.1.408553.3.579.2.1258 1948 Unknown [id number] 2.16.84 0.1.653644.3.579.2.1259 1948 Unknown [id number] 2.16.84 0.1.154109.3.579.2.125 1948 Unknown [id number] 2.16.84 0.1.805635.3.579.2.1259 1948 Unknown [id number] 2.16.84 0.1.638439.3.579.2.1258 1948 Unknown [id number] 2.16.84 0.1.517807.3.579.2.1259 1948 Unknown [id number] 2.16.84 0.1.344440.3.579.2.1258 1948 Unknown [id number] 2.16.84 0.1.296120.3.579.2.1259 1948 Unknown [id number] 2.16. 840.1.290900.3.579.2.196 1948 Unknown [id number] 2.16. 840.1.574983.3.579.2.196 Medicare [id number] Unknown [id number] 2.16.8 40.1.070429.3.579.2.531 Unknown [id number] 2.16.8 40.1.148774.3.579.2.531 Unknown [id number] 2.16.8 40.1.927433.3.579.2.531 Social History Date Type Detail Facility Tobacco smoking stat [facility] Unknown if ever smoked [facility] Work Phone: Start: 1950 Sex Assigned At Female [place] Start: 05-10-2021 End: 03-20-2024 Tobacco smoking status Heavy tobacco smoker (finding) [facility] Start: 09-10-2023 End: 07-22-2024 Sex Assigned At Female [facility] Start: 05-26-2021 [facility] Start: 08-26-2023 End: 09-30-2024 Tobacco smoking status LAIS Smokes tobacco daily [facility] History of [...] [facility] Tobacco smoking status Never [facility] Start: 03-12-2023 Tobacco smoking stat us [facility] Ex-smoker (finding) [facility] Start: 04-21-2024 Sex Female (finding) [facility] Start: 06-23-2024 Alcohol Comment Occationally [facility] Functional Status Date Assessment Result Facility 03-20-2024 Functional Status N/A [facility] 01-30-2024 Functional Status N/A [facility] 01-15-2024 Functional Status N/A [facility] 12-04-2023 Functional Status N/A [facility] 11-08-2021 Functional Status N/A [facility] Clinical Notes 01-24-2021 [...] year, seeing Dr. Marino and podiatry in [place] before being diagnosed with a pinched nerve [...] requiring urgent evaluation. Visit was preformed using [employer]-docking pilot speech recognition. documented in this encounter [facility] 07-22-2024 History of Present illness Narrative [...] requiring urgent evaluation. Visit was preformed using [employer]-docking pilot speech recognition. documented in this encounter [facility] 07-22-2024 Instructions DOMINGA Monroy - 07/22/2024 [...] than 10 mins documented in this encounter [facility] 07-03-2024 Telephone encounter Note Post op pain rx. PDMP reviewed [facility] 07-03-2024 Miscellaneous Notes Post op pain rx. PDMP reviewed documented in this encounter [address]13-2025 History of Present illness Narrative Images [...] COLONOSCOPY 01/15/24 KNEE ARTHROSCOPY W/ DEBRIDEMENT Left [place] OTHER SURGICAL HISTORY Right TAMICA CORONA PUT [...] Z01.818 Basic metabolic panel Basic metabolic panel [facility] Devices mis Ambulatory referral to Physical Therapy [...] and proposed surgery scheduled. WALKER SENT TO [facility] IN [place] LAB WORK SENT TO [facility] PRE AUTH MEDICARE APPROVED Follow up in about 4 weeks (around 07/21/2024) for Post-Op July 22 @ 11:15 in the [place] location with Dolly Veras. documented in this encounter [facility] 05-13-2024 History of Present illness Narrative Images from the original note were not included. Jennifer appreciatedHISTORY OF PRESENT ILLNESS: EST PT Alexandra Cervantes is an 74 y.o. @ female. (EST PT) - RECHECK (R) KNEE ; S/P MDP 04/15/24 ; S/P MRI @[facility] 04/24/24 : ADMITS B/L KNEE PAIN - R>L XRAY B/L KNEE 08/26/23 IN EPIC MRI @[facility] 04/24/24 MDP 04/15/24 NO CORTISONE INJ NO PT PAIN MGMT @[facility] (BACK) (R) KNEE: S/P MDP - WITH [...] of medial meniscus noted on MRI from [facility]. Questions answered in laymen terms at the bedside. The diagnosis, home exercise plan and any ongoing restrictions/ recommendations reviewed. If unable to be reached in office, I recommend evaluation at nearest Emergency Room if any symptoms worsened or new symptoms develop for requiring urgent evaluation. documented in this encounter [facility] 03-18-2024 History of Present illness Narrative Images from the original note were not included. HISTORY OF PRESENT ILLNESS: EST PT Alexandra Cervantes is an 74 y.o. @ female. (EST PT) (LAST APPT WITH [facility]) - RECHECK (L) KNEE S/P MRI @[facility] (02/25/24) ; S/P (L) KNEE SCOPE (DR. CURRAN) (10/09/23) (5 MONTHS, 1 WK, 1 DAY) XRAY B/L KNEE 08/26/23 IN EPIC XRAY (L) KNEE (02/09/23) IN CHANGE MRI @[facility] 02/25/24 MDP 12/31/23 (50% IMPROVEMENT) CORTISONE INJ (01/20/24) (70-80% IMPROVEMENT) NO PT PAIN MANAGEMENT @ [facility] (BACK) STATES INJECTION 01/20/24 ONLY LASTED 2-3 [...] requiring urgent evaluation. documented in this encounter [facility] 03-02-2024 Miscellaneous Notes Patient called and left requesting a call for here MRI results. documented in this encounter [facility] 03-02-2024 Telephone encounter Note Patient called and left requesting a call for here MRI results. [facility] 02-17-2024 History of Present illness Narrative [...] f/u s/p MRI to be done at [facility] documented in this encounter [facility] 01-30-2024 Evaluation + Plan note Future Scheduled TestsCalprotectin, Fecal 01/30/24Calprotectin, Fecal 03/17/24Clostridium Difficile PCR 03/17/24Quantiferon-TB Plus (Client Incubated) 03/17/24Enteric Panel by PCR 03/17/24CBC w/ Auto Diff 03/20/24CBC w/ Auto Diff 03/17/24Comprehensive Metabolic Panel 03/20/24Comprehensive Metabolic Panel 03/17/24C-Reactive Protein 03/20/24C-Reactive Protein 03/17/24Hepatitis B Surface Antibody 03/17/24Hepatitis B Surface Antigen 03/17/24 [facility] 01-20-2024 History of Present illness [...] she understands this. documented in this encounter [facility] 01-15-2024 Hospital Discharge instructions Patient Education 01/15/2024 13:05:31 Gastritis, Adult, Xjgu-zp-Ixkw Gastritis, Adult Gastritis is irritation and swelling [...] Follow these instructions at home: Medicines Take gwfl-pct-ajusshp and prescription medicines only as told by [...] provider. Document Revised: 06/03/2021 Document Reviewed: 06/03/2021 [employer] Patient Education 2023 ReplyBuy. 01/15/2024 13:05:27 Endoscopy, Care After Procedure [facility] Endoscopy Care After Procedure Please [...] blood. Document Released: 09/11/2004 Document Re-Released: 07/22/2006 [facility] Patient Information 2010 Shut Down. 01/15/2024 13:05:22 Hemorrhoids, Gaoe-gi-Aosb Hemorrhoids Hemorrhoids are swollen veins that may [...] Follow these instructions at home: Medicines Take zmyv-wrd-iatuoet and prescription medicines only as told by [...] provider. Document Revised: 10/10/2022 Document Reviewed: 10/10/2022 [employer] Patient Education 2023 ReplyBuy. 01/15/2024 13:05:13 Ulcerative Colitis, Adult Ulcerative Colitis, [...] instructions at home: Medicines and vitamins Take yqxj-hkw-drsiubg and prescription medicines only as told by [...] and water are not available, use hand planer feeder. Stay up to date on your vaccinations, [...] information about ulcerative colitis at the National [place] of Diabetes and Digestive and Kidney Diseases [...] provider. Document Revised: 10/04/2020 Document Reviewed: 10/04/2020 [employer] Patient Education 2023 ReplyBuy. 01/15/2024 13:05:09 Colonoscopy, Care After Surgery Salam [...] severe or gets worse throughout the day. [facility] 01-15-2024 Evaluation + Plan note Extrac javier from: Title:ANES Post-operative Note---General Author: Danielle Garcia MD. Date:01/15/24 Plan Transfer/Discharge: Transfer/Discharge Discharge when meets criteria ( To home ). Extracted from: Title:ANES Pre-operative Note 2022 Author:Danielle Ha Date:01/15/24 Plan [place] [employer] Anesthesiologists (ASA) physical status classification: Class II. Anesthetic Preoperative Plan: Anesthesia General. Extracted from: Title:1Preop H&P Author:Martin Tatum MD Date:01/15/24 Impression and Plan Impression: Ulcerative colitis, chronic diarrhea Plan: -EGD and Colonoscopy Future Appointments Appointment Date:01/30/2024 01:45:00 PM Scheduled Provider:Martin Tatum MD Location[facility] Appointment Type:[facility] Follow Up Diagnostic Tests Pending * Enteric Panel by PCR 01/15/24 * Clostridium Difficile PCR 01/15/24 * Hep B Core Ab, Tot 01/15/24 * Hepatitis B Surface Antibody 01/15/24 * Hepatitis B Surface Antigen 01/15/24 * Quantiferon-TB Plus (Client Incubated) 01/15/24 [facility] [id number] History of Present illness Narrative* Abhi Ramires, [...] develop for requiring urgent evaluation. Abhi Ramires APRN-SCRAP DROP CRANE OPERATOR documented in this [facility] [id number] History of Present illness Narrative* Adali Giordano [...] do activities as tolerated. documented in this [facility]08-28-2024 History of Present illness Narrative* Adali Giordano [...] as tolerated, f/U prn documented in this [facility]08-28-2024 History of Present illness Narrative* Jr. Larissa [...] for requiring urgent evaluation. documented in this [facility]08-27-2024 Telephone encounter Note* Telephone Encounter - Abhi Ramires NP - 10/08/2023 3:02 PM EDT Post op pain rx. PDMP reviewed [facility] [id number] Miscellaneous Notes* Telephone Encounter - Abhi Ramires NP - 10/08/2023 3:02 PM EDT Post op pain rx. PDMP reviewed documented in this [facility]01-25-2024 Evaluation note* Encounter Date Diagnosis Assessment Notes [...] continue to monitor through routine blood work [facility] 08-10-2023 Evaluation note* Encounter Date Diagnosis Assessment Notes Treatment Notes Treatment Clinical Notes Sep, Right foot pain (ICD-10 - M79.671) [facility] Other 07-25-2023 Evaluation note* Encounter Date Diagnosis [...] - E03.9) Chronic problem due for labs. [facility] Other 01-19-2023 Evaluation note* Encounter Date Diagnosis [...] - E78.5) Due for labs in summer. [facility] Other [id number] NoteCONSULTATION PROCEDURE DATE: 01/18/2022 PREOPERATIVE DIAGNOSIS: Left [...] followed up in the office.[facility] [id number] NoteCONSULTATION CONSULTATION DATE: 01/18/2022 HISTORY OF PRESENT [...] three months' time, unless otherwise indicated.[facility] [id number] Evaluation + Plan note Diagnostic Tests Pending * CBC w/ Auto Diff 11/08/21 * Comprehensive Metabolic Panel 11/08/21 [facility] 09-08-2022 NoteCONSULTATION PROCEDURE DATE: 11/16/2021 [...] followed up in the office.[facility] 10-19-2021 NoteCONSULTATION CONSULTATION DATE: 10/19/2021 [...] three months' time unless otherwise indicated.[facility] [id number] NoteCONSULTATION CONSULTATION DATE: 09/06/2021 HISTORY OF PRESENT [...] 8/10. She has been following up with [facility] and had a benign fibroid tumor removal [...] and patient agrees to move forward.[facility] [id number] NoteCONSULTATION PAIN MANAGEMENT CONSULTATION HISTORY: This is [...] of care and will call when needed. [facility] Signed and Approved by: ROBERTO MCNALLY . 04/27/2021 12:41:00[facility]12-14-2021 Hospital Discharge instructions Follow Up Care 01/24/2021 10:04:31 With:JANINA ALARCON, LENORE Farooq, [facility] Address: [facility] [address] [place], [place] [address]dict [place] [address]- When:6 months [facility] Evaluation + Plan note Future Appointments Appointment Date:11/08/2021 10:15:00 AM Scheduled Provider:Capri FULLER MD Location[facility] Appointment Type:BAD Follow Up Future Scheduled Tests Laboratory* CBC w/ Indices 07/25/20 * Comprehensive Metabolic Panel 07/25/20 [facility] evaluation + Plan note Future Appointments Appointment Date:01/15/2024 12:00:00 PM Scheduled Provider: Location:[facility] Appointment Type:Surgery FT Appointment Date:01/30/2024 01:45:00 PM Scheduled Provider:Martin Tatum MD Location:[facility] Appointment Type:BAD Follow Up Future Scheduled Tests Laboratory* O & P Exam, Routine 12/04/23 * Clostridium Difficile PCR 12/04/23 * Enteric Panel by PCR 12/04/23 [facility] evaluation + Plan note Future Appointments Appointment Date:01/15/2024 12:00:00 PM Scheduled Provider: Location:[facility] Appointment Type:Surgery FT Appointment Date:01/30/2024 01:45:00 PM Scheduled Provider:Martin Tatum MD Location:[facility] Appointment Type:[facility] Follow Up Diagnostic Tests Pending * Celiac Disease Comprehensive 12/04/23 Future Scheduled Tests Laboratory* O & P Exam, Routine 12/04/23 * Clostridium Difficile PCR 12/04/23 * Enteric Panel by PCR 12/04/23 [facility] evaluation + Plan note Future Appointments Appointment Date:01/15/2024 12:00:00 PM Scheduled Provider: Location:[facility] Appointment Type:Surgery FT Appointment Date:01/30/2024 01:45:00 PM Scheduled Provider:Martin Tatum MD Location:[facility] Appointment Type:BAD Follow Up Diagnostic Tests Pending * O & P Exam, Routine 12/06/23 [facility] evaluation + Plan note Future Appointments Appointment Date:04/29/2024 09:15:00 AM Scheduled Provider:Martin Tatum MD Location:[facility] Appointment Type:[facility] Follow Up Future Scheduled Tests Laboratory* Calprotectin, Fecal 01/30/24 [facility] Evaluation noteNo assessment information available [facility] Work Phone: Evaluation note* Diagnosis Arthritis of [...] pancoli tis without complications acute April 8:49am [facility] Work Phone: Evaluation note* Diagnosis Acute pain [...] knee arthroscopy- Primary documented in this encounter [facility] HealthcareEvaluation note* Diagnosis Onset Date Resolution Status Admit Date Right foot pain acute September 302024 9:36am [facility] Work Phone: History general Narrative - Reported* Type Description Date Medical History GERD Medical History Hypothyroid Medical History Depression Surgical History Appendectomy Surgical History Tubal Ligation Surgical History Right carpal tunnel Surgical History Right finger Surgical History 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 Hospitalization History See past surgical hx [facility] Other Hospital course Narrative No data available for this section [facility] Hospital Discharge instructions No data available for this section [facility] Hospital Discharge instructionsAmbulatory Orders* Referral to Neurology Time Frame: 09/30/24, Location: None Selected [facility] Work Phone: Progress note No data available for this section [facility] Reason for visit Narrative* Consultation (Routine) - Authorized Specialty Diagnoses / Procedures Referred By Rosi wilson Referred To Contact Physical Therapy Diagnoses Pre-op examination Procedures MA OFFICE/OUTPATIENT [facility] MDM 60 MINUTES Dolly Veras PA [address] [address] Phone: tel: fax: Sofia Bull PT Referral ID Status Reason Start Date Expiration Date Visits Requested Visits Authorized [id number] Authorized Consult and Treat 06/23/2024 12/20/2024 10 10 [facility] Chief Complaint and Reason for [...] Right foot pain (M79 .671) Referral Organization [facility] Referring Provider First Name Laurita Referring Provider Last Name Carmen Referring Provider Specialty Family [facility] Referred Organization [facility] Referred Provider Seymour Johnson Referred Address [address] [place], [place],[address] Referred Provider Specialty Podiatry - S urgical [...] Active Luis Gutierrez DO Attending Provider Active 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 Relationship Specialty Start Date End Date Laurita Morales MD [address] [place] [phone] PCP - General Family Medicine 08/26/23 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 Relationship Specialty [place] [address] [place] [phone] PCP - General Family Medicine 08/26/23 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 Relationship Specialty Start [place] [address] [place] [phone] PCP - General Family Medicine 08/26/23 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 Relationship Specialty Start Date End Date Laurita Morales MD [address] [facility] [place] [address] PCP - General Family Medicine 08/26/23 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 Relationship Specialty Start Date End Date Laurita Morales MD [address] [facility] [place] [address] PCP - General Family Medicine 08/26/23 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 Relationship Specialty Start Date End Date Laurita Morales MD [address] [facility] [address] PCP - General Family Medicine 08/26/23 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 Relationship Specialty Start Date End Date Laurita Morales MD [address] [facility] [place] [address] PCP - General Family Medicine 08/26/23 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 Relationship Specialty Start Date End Date Laurita Morales MD [address] [facility] [address] PCP - General Family Medicine 08/26/23 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 Relationship Specialty Start Date End Date Laurita Morales MD [address] [facility] [place] [address] PCP - General Family Medicine 08/26/23 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 Relationship Specialty Start Date End Date Laurita Morales MD [address] [facility] [place] [address] PCP - General Family Medicine 08/26/23 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 Relationship Specialty Start Date End Date Laurita Morales MD [address] [place] [facility] [address] PCP - General Family Medicine 08/26/23 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 Relationship Specialty Start Date End Date Laurita Morales MD [address] [place] [facility] [phone] PCP - General Family Medicine 08/26/23 Team Status: Inactive Member Role Status Dates Laurita Morales MD Primary Care Provide r, Attending Provider Active Start: April 21, 2024 End: April 21, 2024 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 Relationship Specialty Start Date End Date Laurita Morales MD [address] [place] [facility] [phone] PCP - General Family Medicine 08/26/23 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 Relationship Specialty Start Date End Date Laurita Morales MD [address] [place] [facility] [phone] PCP - General Family Medicine 08/26/23 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 Relationship Specialty Start Date End Date Laurita Morales MD PCP - General Family Medicine 08/26/23 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 Relationship Specialty Start Date End Date Laurita Morales MD PCP - General Family Medicine 08/26/23 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 Relationship Specialty Start Date End Date Laurita Morales MD PCP - General Family Medicine 08/26/23 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 Relationship Specialty Start Date End Date Laurita Morales MD PCP - General Family Medicine 08/26/23 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 Relationship Specialty Start Date End Date Laurita Morales MD PCP - General Family Medicine 08/26/23 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 Relationship Specialty Start Date End Date Laurita Morales MD PCP - General Family Medicine 08/26/23 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 Relationship Specialty Start Date End Date Laurita Morales MD [address] [place] [facility] [phone] PCP - General Family Medicine 07/16/24 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 Relationship Specialty Start Date End Date Laurita Morales MD [address] [place] [address] PCP - General Family Medicine 07/16/24 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 Relationship Specialty Start Date End Date Laurita Morales MD [address] [place] [address] PCP - General Family Medicine [...] and content) DATE CREATED AUTHOR 05/23/2021 [facility] DATE CREATED AUTHOR AUTHOR'S ORGANIZ ATION 01/23/2022 [facility] DATE CREATED AUTHOR AUTHOR'S ORGANIZ ATION 03/17/2022 [facility] DATE CREATED AUTHOR AUTHOR'S ORGANIZ ATION 12/03/2023 [facility] DATE CREATED AUTHOR AUTHOR'S ORGANIZ ATION 12/08/2023 [facility] DATE CREATED AUTHOR AUTHOR'S ORGANIZ ATION 12/10/2023 [facility] DATE CREATED AUTHOR AUTHOR'S ORGANIZ ATION 12/12/2023 [facility] DATE CREATED AUTHOR AUTHOR'S ORGANIZ ATION 01/23/2024 [facility] DATE CREATED AUTHOR AUTHOR'S ORGANIZ ATION 01/25/2024 [facility] DATE CREATED AUTHOR AUTHOR'S ORGANIZ ATION 02/03/2024 [facility] [facility] DATE CREATED AUTHOR AUTHOR'S ORGANIZ ATION 08/13/2024 [facility] DATE CREATED AUTHOR AUTHOR'S ORGANIZ ATION 08/24/2024 [facility] EPIC DATE CREATED AUTHOR AUTHOR'S ORGANIZ ATION 08/28/2024 [facility] REASON FOR VISIT (unrecogniz ed section [...] BE BASED ON THE PRIMARY CLINICAL RECORDS. [facility] [employer] provides no warranty or guarantee of the accuracy or completeness of information in this document.
--- NOTE | 2024-10-19 10:50 | XR_ITS ---
The [address] [address] Patient Name: ALEXANDRA GARDNER MRN: [id number] date: 1950 Sex: F Assigned Patient Location: [facility] Current Patient Location: [facility] Accession/Order Number: [id number] Exam Date: 10/19/2024 10:40 Report Date: 10/19/2024 11:20 At the request of: YVONNE DICKSON DO Procedure: XR lumbar spine 6V w bending CLINICAL DATA: Right dorsal foot pain and difficulty ambulating for years. Back pain on the left with radiculopathy. No reported injury. RIGHT FOOT - 3 views COMPARISON: 06/04/2023 AP, lateral and oblique views were obtained. There is no evidence of fracture or dislocation. A tiny bony ossicle is again seen along the medial margin of the first cuneiform. A plantar calcaneal spur is present. There are no significant soft tissue abnormalities. XR/XR lumbar spine 6V w bending IMPRESSION: NO ACUTE BONY FINDINGS. LUMBAR SPINE WITH FLEXION AND EXTENSION VIEWS - 6 views COMPARISON: 09/17/2023 plain films and MRI AP, lateral neutral, flexion and extension and oblique views were obtained. There is osteopenia. There is slight dextroscoliotic curvature. No acute compression fractures are visualized. There is approximately 8 mm anterolisthesis of L5 on S1. There is also approximately 7 mm retrolisthesis of L1 on L2. Alignment does not change significantly with flexion or extension. There is disc space narrowing L1-2, L4-5 and the lumbosacral junction with vacuum phenomenon. Endplate spurring and sclerosis are noted. Facet hypertrophy is also seen, greatest at the lumbosacral junction. No obvious pars defects are identified. The SI joints are intact. No paraspinal soft tissue abnormalities are seen. IMPRESSION: OSTEOPENIA, SCOLIOSIS AND DEGENERATIVE CHANGES, SIMILAR TO THE PRIOR. Impression dictated by: Giulia Villarreal M.D. 10/19/2024 11:20 AM Dictation Location: [employer] Electronically authenticated by: [id number] Y Date: 10/19/2024 11:20
== END 2024-10-19 10:07 | disposition home or self-care (01) ==
LOC: RAD 10:08
PROVIDERS: PCP Family Medicine; Visit Provider Neurological Surgery
DX: M54.16 Radiculopathy, lumbar region (principal)
CPT/HCPCS: 72114

== ENCOUNTER 2024-10-19 10:11 | Outpatient (OUT) | payer MEDICARE, OTHER, SELFPAY ==
--- OUTSIDE RECORDS SUMMARY | 2023-08-21 05:45 | XMS_ITS ---
Author Organization [facility] in [place] Address [address] [place] [address] Care Team Providers Care Drawer In Plain Loom Name Role Phone Danyell Kelly Primary Care Provider Seymour Zavala Unavailable [phone] Allergies Allergen (clinical drug ingredient) Drug/Non Drug Allergy documented on EMR Reaction Allergy Type Onset Date Status varenicline Chantix Unknown Drug Allergy Activ e Reason For Referral Reason Pain Management [facility] Diagnosis 1 Radiculopathy, lumba r region (M54.16) Referral Organization [facility] (PODIATRY) Referring Provider First Name Seymour Referring Provider Last Name Alex Referring Provider Speciality Podiatry Referred Provider Specialty Pain Medicin e Referral Priority Routine Reason referral to Dr. Sherif neal Diagnosis 1 Left knee pain (M25. 562) Referral Organization [facility] ([facility]) Referring Provider First Name Seymour Referring Provider Last Name Alex Referring Provider Speciality Podiatry Referred Provider Specialty Orthopedic S urgery Referral Priority Routine REASON FOR VISIT MRI REVIEW Medications Medication SIG (Take, Route, Frequency, Duration) Notes Start Date End Date Status Advil 200 MG 1 tablet with food o r milk as needed Orally Three times a day Active Aleve 220 MG 1 tablet with food o r milk as needed Orally every 12 hrs Active Omeprazole 20 MG 1 capsule 30 minutes before morning meal Orally Once a day Active Simvastatin 40 MG 1 tablet in the even ing Orally Once a day Active sulfaSALAzine 500 MG 1 tablet Orally Onc e a day Active Levothyroxine Sodium 75 MCG 1 tablet in the morning on an empty stomach Orally Once a day Active ALPRAZolam 0.5 MG 1 tablet Orally Twic e a day Active Escitalopram Oxalate 20 MG 1 tablet Oral ly Once a day Active Social History Tobacco Use: Social History Observation Description Date Details (start date - stop date) Former Smoker NA - NA Tobacco Use/Smoking Question Answer Notes Patient is a former smoker Vital Signs Temperature 97.2 degrees Fahrenheit 08/21/19 Heart Rate 84 /min 08/21/2023 Respiratory Rate 16 /min 08/21/2023 Height 55.5 in 08/21/2023 Weight 160 lbs 08/21/2023 BMI 36.52 kg/m2 08/21/2023 Encounters Encounter Location Date Provider Diagnosis [facility] (PODI[facility]) [address] [place] [address] [place] [address] 08/21/2023 Peter Mauriander Right ankle pain M25.571 and Radiculopathy, lumbar region M54.16 Assessments Encounter Date Diagnosis (ICD Code) Assessment Notes Treatment Notes Treatment Clinical Notes Section Notes 08/21/2023 Right ankle pain (ICD-10 - M25.571) Patient is has had consistent symptoms for over 6 months and her examinations have been inconsistent as to where she is having pain and if I am able to reproduce them. I did obtain an MRI which I reviewed with her today which shows no clear pathology which explains her symptoms therefore it is likely that she may be having some lumbar radiculopathy. I recommended referral to Dr. Thomas with pain management. In addition patient was requesting a second opinion regarding her left knee therefore I provided referral to Dr. Curran. She will follow-up with me as needed 08/21/2023 Radiculopathy, lumbar region (ICD-10 - M54.16) Plan Of Treatment Treatment Notes Assessment Notes Right ankle pain Patient is has had c onsistent symptoms for over 6 months and her examinations have been inconsistent as to where she is having pain and if I am able to reproduce them. I did obtain an MRI which I reviewed with her today which shows no clear pathology which explains her symptoms therefore it is likely that she may be having some lumbar radiculopathy. I recommended referral to Dr. Thomas with pain management. In addition patient was requesting a second opinion regarding her left knee therefore I provided referral to Dr. Curran. She will follow-up with me as needed Referrals Referral Date Details 08/23/2023 08/23/2023, Pain Man agement [facility] 08/23/2023 08/23/2023, referral to Dr. Curran Progress Notes * Tisha CERVANTESDOB:1950 (73 yo F)Acc No.[id number]:08/21/2023 Follow Up Patient: Tisha CONSTANTINO Provider: Will Johnson DPM, MS :1950 A ge:73 Y S ex:Female Date:08/21/2023 Address:[address] [place], [place] [address] , [id number] Pcp:Danyell Kelly Check In:09:31 AM ESTCheck O ut:10:00 AM EST Subjective: * Chief Complaints: * M RI REVIEW * HPI: G eneral: MRI review right ankle today. Denies any new issues since last visit. Pain has been there x 6 months . Rates pain 08/20 . * ROS: G eneral/Constitutional: Chills d enies. [...] Modified On:11/07/2022W/U Status:confirmed B35.3 Tinea pedis Modified On:09/26/2022W/U Status:confirmed M25.571 Right ankle pain Modified On:06/04/2023W/U Status:confirmed * Medical History: * Surgical History: [...] List reviewed and reconciled with the patientTaking Advil(Ibuprofen) 200 MG Tablet 1 tablet with [...] Allergies: Mei issa[Allergies Verified] Objective: * Vitals: W t:160lbs, Ht: 55.5 in, Temp:97.2F, HR:84/min, RR:16/min, BMI:36.52Index, Pain scale:71-10, Ht-cm: 140.97 cm, Wt-k.57 kg. * Examination: P odiatry Examination: SKIN: s kin intact, n o sign of infection. MUSCULOSKELETAL: N o pain on palpation around the ankle as I am unable to reproduce her symptoms. Negative anterior drawer. Able to fire all muscle groups.. NEUROLOGICAL: l ight touch sensation intact, n egative tinel's sign. VASCULAR: P edal pulses palpable, C apillaryrefill is brisk to toe, . M RI was reviewed with the patient I agree with radiologist rotation of no ligamentous or tendinous pathology there is mild tarsometatarsal joint arthritis. Assessment: * Assessment: 1. R ight ankle pain - M25.571 (Primary) 2 . R adiculopathy, lumbar region - M54.16? Plan: * Treatment: 2. R adiculopathy, lumbar region Referral To:Pain Medicine Reason:Pain Management [facility] 3. O thers Referral To:Orthopedic Surgery Reason:referral to Dr. Curran * Procedure Codes: * * Sign off status: Completed Visit Status: C HK (Check Out) true * Provider: Will Johnson DPM, MS Date: 0 08/21/2023 Generated for Charleen milligan/Brant/Augustusitting on: 0 10/19/2024 10:15 AM EDT History and Physical Notes * HPI (History of Present Illness) Category Sub-Category Detail Notes Category Not es General MRI review righ t ankle today. Denies any new issues since last visit. Pain has been there x 6 months . Rates pain 08/20 . 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 Negative anterior drawer. Able to fire all muscle groups. NEUROLOGICAL: light touch sensatio n intact, negative tinel's sign VASCULAR: Pedal pulses palpable, Capillary refill is brisk to toe, Consultation Request Notes Referral Date Referring Provider Referred Provider Not es 08/23/2023 Seymour Johnson , Pain Manag ement [facility] 08/23/2023 Seymour Johnson , referral t o Dr. Curran
--- OUTSIDE RECORDS SUMMARY | 2024-10-19 05:43 | XMS_ITS | Continuity of Care Document ---
Author Organization [facility] Address [address] [place] [address] Phone Care Team Providers Care Assistant Professor Of Surgery Name Role Phone Danyell Kelly MD Primary Care Provider Nasim Segal DO Attending Provider [phone] Danyell Kelly MD Attending Provider Care Teams Patient Care Team Team Status: Active Member Role Status Dates Danyell Kelly MD Primary Care Provider Active Visit Care Team Team Status: Inactive Member Role Status Dates Danyell Kelly MD Primary Care Provider Active Start: September 30, 2024 End: September 30, 2024 Nasim Segal DO Attending Provider Active S tart: September 30, 2024 End: September 30, 2024 Patient Care Team Team Status: Inactive Member Role Status Dates Danyell Kelly MD Primary Care Provider Active Start: October 19, 2024 End: October 19, 2024 Danyell Kelly MD Attending Provider Active St art: October 19, 2024 End: October 19, 2024 Chief Complaint and Reason for Visit Chief Complaint Admit Date SCIATICA -RIGHT SIDE September 30, 2024 9 :36am Wellness October 19, 2024 8:50am Reason for Visit Admit Date Right foot pain September 30, 2024 9: 36am Anxiety October 19, 2024 8:50am Hyperlipidemia, unspecified October 8:50am Hypothyroid October 19, 2024 8:50am Medicare annual wellness visit, subseque nt October 19, 2024 8:50am Right foot pain October 19, 2024 8:50am Reason for Referral Referring Provider Name Referring Provider Address Referring Provider Phone Referral Date Requested Appointment Date Referral Reason Nasim Segal [facility] Neurosurgery [address], [address] [facility] [address] Work Phone: September 30, 2024 M54.16 - Radiculopath y, lumbar region September 30, 2024 M54.16 - Radiculopath y, lumbar region Allergies, Adverse Reactions, Alerts Allergen Type Severity Reaction Last Updated Verified Status Comments No Known Allergies Allergy Unknown October 19, 2024 8:55am Yes Active NO BARIUM ALLERGY Social History Smoking Status Status Start Date End Date Date of Observa tion Smokes tobacco daily (finding) September 30, 2024 9:59am Observation Status Observation Response Date of Response Legal Sex Female (finding) Sex Assigned At Female February Family History Relationship Condition Age at Onset Recorded Date/T michelle father Diabetes mellitus Unknown Cerebrovascular accident (CVA) Unknown father Diabetes mellitus Unknown Unknown mother Unknown Problems Active Problems Medical Problem Onset Date Status Comments Medicare annual wellness vis it, subsequent Unknown Active Screening for colon cancer Unknown Active Ulcerative (chronic) pancoli tis without complications Unknown Active Anxiety Unknown Active Problem List cl karlos-up per request of Phys. EHR Cmte Hyperlipidemia, unspecified Unknown Active Hypothyroid Unknown Active Right foot pain Unknown Active Medications Medication Status Dose Units Route Directions Qty Days St art Date Stop Date End Date Instructions Adherence Alprazolam 0.5 mg tablet Discont inued 0.5 MG PO Twice daily as needed for anxiety 60 30 April 25, 2023 12:45p m June 27, 2023 10:48 am Baclofen 10 mg tablet Discont inued 0 .ROUTE .COMPLEX 90 May 06, 2023 4:38pm July 03, 2023 9:05a m TAKE ONE TABLET BY MOUTH THREE TIMES A DAY NEEDED Alprazolam 0.5 mg tablet Discont inued 0.5 MG PO Twice daily as needed for anxiety 30 June 27, 2023 10:48a m July 30, 2023 1:50p m Alprazolam 0.5 mg tablet Discont inued 0.5 MG PO Twice daily as needed for anxiety 30 July 30, 2023 1:50pm July 30, 2023 1:51p m Alprazolam 0.5 mg tablet Discont inued 0.5 MG PO Twice daily as needed for anxiety 50 July 30, 2023 1:50pm August 27, 2023 3:49p m Alprazolam 0.5 mg tablet Discont inued 0.5 MG PO Twice daily as needed for anxiety 50 30 August 27, 2023 3:49pm Septe mber 2023 7:35a m Levothyroxi ne 75 mcg tablet Discont inued 0 .ROUTE .COMPLEX 30 September 27, 2023 7:50am Febua ry 2024 9:23a m TAKE ONE TABLET BY MOUTH ONCE DAILY Alprazolam 0.5 mg tablet Discont inued 0.5 MG PO Twice daily as needed for anxiety 50 30 Septem myles 2023 7:35am Decem myles 2023 9:39a m Simvastatin 40 mg tablet Active 0 .ROUTE .COMPLEX 30 [facility] er 2023 2:15pm TAKE ONE TABLET BY MOUTH ONCE DAILY AT BEDTIME Complies with drug therapy Alprazolam 0.5 mg tablet Discont inued 0.5 MG PO Twice daily as needed for anxiety 50 30 [facility] 2023 9[facility]39am [facility] 5:[facility] Escitalopra m Oxalate 20 mg tablet Active 0 .ROUTE .COMPLEX 30 [facility] er 2023 9:32am TAKE ONE TABLET BY MOUTH DAILY 30 Complies with drug therapy Omeprazole 40 mg capsule,del ayed release(DR/ EC) Discont inued 40 MG PO Daily [facility] er 2023 1:00am [facility] myles 2023 12:01 pm Omeprazole 40 mg capsule,del ayed release(DR/ EC) Discont inued 40 MG PO Daily 30 30 [facility] er 2023 12:00p m June 19, 2024 1:02p m Buspirone 15 mg tablet Discont inued 0 .ROUTE .COMPLEX 60 Febuar y 2024 9:46am June 15, 2024 3:16p m TAKE ONE TABLET BY MOUTH TWICE A DAY Levothyroxi ne 75 mcg tablet Discont inued 0 .ROUTE .COMPLEX 30 Febuar y 2024 9:23am August 19, 2024 12:34 pm TAKE ONE TABLET BY MOUTH ONCE DAILY Alprazolam 0.5 mg tablet Discont inued 0.5 MG PO Twice daily as needed for anxiety 50 30 2024 5:15pm April 21, 2024 9:29a m Alprazolam 0.5 mg tablet Discont inued 0.25 MG PO Twice daily May 27, 2024 1:17pm July 14, 2024 1:26p m Buspirone 15 mg tablet Discont inued 0 .ROUTE .COMPLEX June 15, 2024 3:16pm August 19, 2024 12:34 pm TAKE ONE TABLET BY MOUTH TWICE A DAY Omeprazole 40 mg capsule,del ayed release(DR/ EC) Active 40 MG PO Daily June 19, 2024 1:02pm Complies with drug therapy Alprazolam 0.5 mg tablet Discont inued 0.25 MG PO Twice daily July 14, 2024 1:26pm August 19, 2024 12:34 pm Buspirone 15 mg tablet Active 0 .ROUTE .COMPLEX August 19, 2024 12:34p m TAKE ONE TABLET BY MOUTH TWICE A DAY Complies with drug therapy Levothyroxi ne 75 mcg tablet Active 0 .ROUTE .COMPLEX August 19, 2024 12:34p m TAKE ONE TABLET BY MOUTH ONCE DAILY Complies with drug therapy Alprazolam 0.5 mg tablet Discont inued 0.25 MG PO Twice daily August 19, 2024 12:34p m Augus t 2024 1:52p m Alprazolam 0.5 mg tablet Active 0.25 MG PO Twice daily October 01, 2024 1:52pm Complies with drug therapy Multivitami n Tablet Active 1 TAB PO Daily May 26, 2021 12:00a m Complies with drug therapy Sulfasalazi ne 500 mg tablet Discont inued 500 MG PO Four times daily May 26, 2021 12:00a m July 03, 2023 9:07a m Omeprazole 40 mg capsule,del ayed release(DR/ EC) Discont inued 40 MG PO Daily at bedtime May 26, 2021 12:00a m September 09, 2023 9:07a m Simvastatin 40 mg Tablet Discont inued 40 MG PO Daily at bedtime May 26, 2021 12:00a m Novem 2023 2:15p m Levothyroxi ne 75 mcg tablet Discont inued 75 MCG PO Every morning May 26, 2021 12:00a m Augus t 2023 7:50a m Alprazolam 0.5 mg tablet Discont inued 0.5 MG PO Twice daily May 26, 2021 12:00a m April 25, 2023 12:46 pm Baclofen 10 mg Tablet Discont inued 10 MG PO Twice daily as needed for Pain May 26, 2021 12:00a m May 06, 2023 4:38p m Diclofenac Sodium 75 mg tablet,morgan yed release (DR/EC) Discont inued 75 MG PO Twice daily as needed for Pain May 26, 2021 12:00a m July 03, 2023 9:08a m On Hold: Resume on 06/02/21. Magnesium 200 mg Tablet Discont inued 400 MG PO Daily May 26, 2021 12:00a m July 03, 2023 9:06a m Escitalopra m Oxalate 20 mg tablet Discont inued 20 MG PO Every morning May 26, 2021 12:00a m Decem myles 2023 9:32a m Eye Vitamin Active 1 TAB PO Daily May 26, 2021 12:00a m Complies with drug therapy Glucoamine Active MG PO Twice daily A pril 2021 12:00a m Complies with drug therapy Vitamin D And Calcium Active PO Twice daily May 26, 2021 12:00a m Complies with drug therapy Alprazolam 0.5 mg tablet Discont inued 0.5 MG PO Twice daily as needed for anxiety 50 30 April 21, 2024 9:17am May 27, 2024 1:18p m Buspirone 15 mg tablet Discont inued 15 MG PO Twice daily 60 Decemb er 2023 1:00am Janua ry 2024 9:46a m Gabapentin 300 mg capsule Active 900 MG PO Three times daily September 30, 2024 12:00a m Complies with drug therapy Baclofen 10 mg tablet Discont inued 10 MG PO Daily as needed September 09, 2023 12:00a m Decem myles 2023 2:04p m Immunizations Immunization Event Date Not Given Reason Dose Number Nascar Racer Lot Number Vaccine Information Statement (VIS) Detail Administration Location [facility] mRNA-1273 (Moderna) March 23, 2020 COVID-19 mRNA-1273 (Moderna) April 26, 2020 COVID-19 mRNA-1273 (Moderna) December 09, 2020 Fluzone TIV High-Dose 65YR+ October 19, 2024 [id number] [facility] influenza, unspecified formulation October 24, 2016 influenza, unspecified formulation November 20, 2019 influenza, unspecified formulation November 15, 2020 Pneumococcal Conjugate Vaccine, 13 valent October 24, 2016 Pneumococcal Polysacc. Vaccine, 23 valent November 30, 2013 Tetanus, Diphtheria adult, 5 Lf pres free abs August 31, 2014 Vital Signs Vital Reading Result Reference Range Collection Date/Time Height 55.5 [in_i] September 30 9:54am Weight 74.60 kg September 30 9:54am BMI (Body Mass Index) 37.5 kg/m2 September 30, 2024 9:54am Height 55 [in_i] October 19, 2024 8:54am Weight 74.38 kg October 19, 2024 8:54am Heart Rate 77 /min 60-100 October 19, 2024 8:54am BP Systolic 132 mm[Hg] 100-140 October 19, 2024 9:24am BP Diastolic 78 mm[Hg] 60-100 October 19, 2024 9:24am BMI (Body Mass Index) 38.1 kg/m2 2024 8:54am Advance Directives Advance Directive Response Recorded Date/ Time Advance Directives No August 26 11:31am Insurance Providers Guarantor Tisha Cervantes Address [address] [facility] [address] Contact Info. Home Phone: Payer Policy Id Subscriber's Name Subscriber Id Effectiv e Date Expiration Date Medicare [id number] Tisha Cervantes [id number] Medicare Outpatient [id number] Encounters Encounter Location(s) Arrival/Admit Date Discharge/Depart Date Provider(s) Departed Physician/Prov ider Office Visit -[facility] September 30, 2024 9:36am September 30, 2024 11:01am Nasim Segal DO Departed Physician/Prov ider Office Visit -[facility] October 19, 2024 8:50am October 19, 2024 9:42am Danyell Kelly MD Recent Diagnosis Onset Date Admit Date Right foot pain Unknown September 30 9:36am Anxiety Unknown October 19 8:50am Hyperlipidemia, unspecified Unknown Sept emb2024 8:50am Hypothyroid Unknown October 19 8:50am Medicare annual wellness visit, subsequent Unkno wn October 19, 2024 8:50am Right foot pain Unknown October 19 8:50am Assessments Diagnosis Onset Date Resolution Status Admit Date Right foot pain acute September 302024 9:36am Anxiety acute October 19, 2024 8:50am Hyperlipidemia, unspecified acute October 19, 2024 8:50am Hypothyroid acute October 8:50am Medicare annual wellness visit, subsequent acute October 19, 2024 8:50am Right foot pain acute October 19, 2024 8:50am Plan of Treatment Author Nasim Segal [facility] Authored September 30, 2024 10 :44am In summary is patient is a [age]-year-old female presents to clinic today with chief complaints of right lower some radiculopathy describing over the anterior garcia to the top of her foot. Time independent reviewed an MRI from August 13, 2024. I have shown her the MRI where she does have significant right L5-S1 and to lesser L4-5 neuroforaminal stenosis. I then enumerated the symptoms of radiculopathy to which she states is mostly over the anterior garcia to the top of her foot which is atypical for an L5 and L4 dermatomal distribution. And so for that I recommend an EMG of the bilateral extremities. She also does have an L5-S1 spondylolisthesis as well as at L4-5 and therefore do want obtain flexion-extension films as her films are [id number]. Once the EMG and the x-rays are done like to see her back for continued session of her symptom complex. All questions were answered to the satisfaction of the patient she is in agreement the above plan. Future Tests Future scheduled test information is unavailable Pending Tests Test Name Ordered Date Scheduled Date XR lumbar spine 6V w bending September 30, 2024 1 0:41am Comprehensive Metabolic Panel October 19 9:22am XR foot RT min 3V* October 19, 2024 9:19am Future Visits Future appointment information is unavailable Referrals to Other Providers Reason for Referral Referral Start Date Provider Provider Contact Information Provider Address M54.16 - Radiculopathy, lumbar region September 30, 2024 [facility] [address] [address] Future Procedures Procedure Name Ordered Date Scheduled Date Complete Blood Count Auto Diff October 19 9:22am Lipid Panel October 19, 2024 9:22am Free T4 (Free Thyroxine) October 19, 2024 9:2 2am Thyroid Stim Hormone w/Rflx October 19, 2024 9:22am Future Medications Future medication information is unavailable Patient Instructions Patient instructions are unavailable
--- OUTSIDE RECORDS SUMMARY | 2024-10-19 10:25 | XMS_ITS | CCD ---
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 Maker Name Role Phone MD Cy Sears Attending Provider MD Laurita Morales Primary Care Provider LAURITA MORALES Primary Care Physician [phone] DO Luis Gutierrez Attending Provider [phone] CARMEN, DR LAURITA Solis Attending Unavailable MORALES, [...] Unavailable MORALES, DR LAURITA Solis Attending Unavailable OLYMPIA, DR LONNY Wiggins Consulting Unavailable MORALES, DR [...] Unavailable Laurita Morales MD Primary Care Provider [phone] Martin Tatum Attending Unavaila ble Sarmini, Martin Talal Admitting Unavaila ble Sarminmeera, Martin Talal Attending Unavaila ble Sarminmeera, Martin Talal Attending Unavaila ble Levyminmeera, Martin Talal Admitting Unavaila ble Levyminmeera, Martin Felicianoal Attending Unavaila ble Levyminmeera, Martin Talal Admitting Unavaila ble Sarminmeera, Martin Talal Attending Unavaila Laurita Fontenot MD Primary Care Provider Laurita Morales MD Primary Care Provider Martin [...] Carmen ALARCON, Laurita Solis Primary Care Provider [phone] Nasim Segal DO Attending Provider Allergies Allergy [...] every six hours for pain HYDROcodone-aceta minophen ([place]) 5-325 MG tablet Indications: Acute medial meniscus tear of right knee, initial encounter Take 1 tablet by mouth every 6 (six) hours if needed for severe pain for up to 3 days 12 tablet 07/06/2024 07/09/2024 Active Start: 10-08-2023 End: 10-11-2023 take 1 tablet by mouth every six hours for pain HYDROcodone-acetaminophen ([place]) 5-325 MG tablet Indications: Post-op pain Take [...] Start: 01-31-2024 take 4 tablets by mo [facility] once daily mesalamine ([place]) 1.2 g [...] 0 Start Date: 03/20/24 Status: Ordered [facility] oral powder for reconstitution (1 source) Start: 01-28-2020 take 1 dose by mouth once [facility] oral powder for reconstitution See Instructions, 1 [...] 06/23/2024 Discontinued (Therapy completed) polyethylene glycol 3350 976333 mg / potassium chloride 1480 mg / sodium bicarbonate 5720 mg / sodium chloride 62342 mg powder for oral solution (1 source) Osmotic Laxative Start: 01-28-2020 take 1 dose by mouth once [facility] oral powder for reconstitution See Instructions, 1 [...] day(s), # 540 tab(s), Refills(s) 3, Pharmacy: [facility] [id number], 150, cm, 03/20/24 11:03:00 EST, Height/Length Dosing, 74.6, kg, 03/20/24 11:03:00 EST, Weight Dosing Start Date: 03/20/24 Stop Date: 03/15/25 Status: Ordered Start: 05-26-2021 End: 07-03-2023 take 1 tablet by mouth four times daily Sulfasalazine 500 mg tablet Discontinued 500 MG PO Four times daily May 26, 2021 12:00am July 03, 2023 9:07am Start: 05-10-2021 take 2 tablets by mo [facility] three times daily sulfasalazine 500 mg Tab 1,000 mg = 2 tab(s), Oral, TID, # 180 tab(s), Refills(s) 11, Pharmacy: [facility]/pharmacy #[id number], 150, cm, 05/10/21 11:13:00 EDT, Height/Length Dosing, 71, kg, 05/10/21 11:13:00 EDT, Weight Dosing Start Date: 05/10/21 Status: [facility] sulfaSALAzine (Azulfidine) 500 MG [...] I place a reminder for November. Normal [facility] ALL BASIC METABOLIC PANELon 06-24-2024 Anion gap [Moles/Vol] 8 mmol/L [facility] Calcium [Mass/Vol] 9.4 mg/dL 8.5 - 10. 1 mg/dL [facility] Chloride [Moles/Vol] 103 mmol/L 98 - 10 7 mmol/L [facility] CO2 [Moles/Vol] 30.4 mmol/L 21.0 - 32.0 mmol/L [facility] Creatinine [Mass/Vol] 0.75 mg/dL 0.55 - 1.02 mg/dL [facility] GFR/1.73 sq M.predicted CKD-EPI (S/P/Bld) [Vol rate/Area] >60 >=60 mL/min/1.7 3m 2 [facility] Glucose [Mass/Vol] 91 mg/dL 74 - 106 mg/dL [facility] Potassium [Moles/Vol] 4.4 mmol/L 3.5 - 5.1 mmol/L [facility] Sodium [Moles/Vol] 137 mmol/L 136 - 145 mmol/L [facility] TBH EGFR-NON AF NIGERIEN >60 >=60 mL/min/1.7 3m 2 [facility] Urea nitrogen [Mass/Vol] 11 mg/dL 7.0 - 18.0 mg/dL [facility] Urea nitrogen/Creatinine [Mass ratio] 14.7 mg/mg [facility] XR Knee - left 1 or 2 [...] structures visualized appeared to be adequately ossified. [facility] Radiology Study observation (narrative) [facility] Gastroenterology Office/Clin ic Noteon 03-20-2024 Gastroenterology Office/Clinic [...] fL (01/15/24) Chloride: 100 mmol/L Low (01/15/24) [place] Absolute: 1.1 E9/L High (01/15/24) CO2: 23 mmol/L (01/15/24) [place] Auto: 10.6 % (01/15/24) Creatinine: 0.6 mg/dL [...] years, pereira (more content not included)... Normal [facility] Comment on above: Result Comment: [...] EDT With: Deepti ALARCON, Martin Khan Where: [facility] [address] [place], [place] [id number]- You Need to Complete the Following Calprotectin, [...] long time Last colonoscopy [address] Fullre took Covid vaccine ~ a month ago [...] for h (more content not included)... Normal [facility] Comment on above: Result Comment: Elec tronically Signed By: Deepti ALARCON, Martin Khan\.br\Date and Time Signed: 01/30/24 14:13 EST Surgical Pathology Reporton 01-22-2024 Surgical Pathology Report [facility] [address] [place] [address]- Surgical Pathology Report Collected Date/Time: 01/15/2024 12:33 [...] characteristics were determined by the Laboratory of [facility] Surgical Pathology. They have not been cleared or approved by the US Food and Drug Administration. The FDA has determined that such clearance or approval is not necessary. These tests are used for clinical purposes. They should not be regarded as investigational or for research. Appropriate positive and negative controls are performed and are acceptable. Normal [facility] Comment on above: Performed By: #### 4 [id number] #### [facility] [address] [place] [address] Quantiferon-TB Plus (Client Incubated)on 01-17-2024 Gamma interferon background IA Qn (Bld) 0.02 International_Unit/mL Invalid Interpretation Code [facility] Comment on above: Performed By: #### 1 [id number] #### [facility] [address] [place] [address] M. tuberculosis stim IFN-g by CD4+ CD8+ T-cells corrected for background Qn (Bld) 0.05 International_Unit/mL Invalid Interpretation Code [facility] Comment on above: Performed By: #### 1 [id number] #### [facility] [address] [place] [address] M. tuberculosis stim IFN-g by CD4+ T-cells corrected for background Qn (Bld) 0.02 International_Unit/mL Invalid Interpretation Code [facility] Comment on above: Performed By: #### 1 [id number] #### [facility] [address] [place] [address] M. tuberculosis stim IFN-g Ql (Bld) [Interp] Negative Invalid Interpretation Code Negative [facility] Comment on above: Result Comment: No [...] interferon gamma. Chemiluminescence immunoassay methodology Performed at: [facility] [employer] [id number] PhD Kirk Cm Performed By: #### 1 [id number] #### [facility] [address] [place] [address] Mitogen stimulated gamma interferon corrected for background Qn (Bld) >10.00 Invalid Interpretation Code [facility] Comment on above: Performed By: #### 1 [id number] #### [facility] [address] [place] [address] Service comment (Unsp spec) [Interp] Comment Invalid Interpretation Code [facility] Comment on above: Result Comment: Terry [...] for the test. Performed By: #### 1 [id number] #### [facility] [address] [place] [address] Enteric Panel by PCRon 01-15 Enteric Panel by PCR Shiga Tox Interp Negative for Shiga Toxin producing E. coli Normal [facility] CHEMISTRYOrdered By: SYSTEM SYSTEM on 01-15-2024 [...] samples in close time sequence. Normal Negative [facility] Comment on above: Result Comment: This test result should be correlated with clinical presentations and medical history by a healthcare provider to determine its clinical significance.\.br\.br\ Other Comment: Order added by Discern Expert. Clostridium difficile by PCR Negative Normal Negative [facility] Comment on above: Order Comment: Order added by Discern Expert. Result Comment: This test result should be correlated with clinical presentations and medical history by a healthcare provider to determine its clinical significance. Performed By: #### 4 [id number] #### [facility] [address] [place] [address] CDiff PCRon 12-06-2023 C. difficile toxin A+B Ql (Stl) No, PCR to follow Normal [facility] Comment on above: Performed By: #### 3 [id number] #### [facility] [address] [place] [address] CDiff PCR Order Cancelled Specimen has been found to be acceptable for C. difficile testing. Normal [facility] Enteric Panel by PCRon 12-05 C. coli+jejuni+upsalien sis DNA ADELITA+non-probe Ql (Stl) Not detected Normal [facility] Comment on above: Result Comment: Test ing was performed utilizing reverse academic specialist (RT), polymerase chain reaction (PCR), and array [...] nulcleic acid test. Performed By: #### 1 [id number] #### [facility] [address] [place] [address] E. coli stx1+stx2 genes ADELITA+non-probe Ql (Stl) Negative Normal [facility] Comment on above: Performed By: #### 1 [id number] #### [facility] [address] [place] [address] Enteric Panel by PCR Shiga Tox Interp Negative for Shiga Toxin producing E. coli Normal [facility] Enteric Panel Intrl QC Pass Normal [facility] Comment on above: Result Comment: Test ing was performed utilizing reverse academic specialist (RT), polymerase chain reaction (PCR), and array [...] 1 and 2. Performed By: #### 1 [id number] #### [facility] [address] [place] [address] Norovirus genogroup I+II RNA ADELITA+non-probe Ql (Stl) Not detected [facility] Comment on above: Performed By: #### 1 [id number] #### [facility] [address] [place] [address] Rotavirus A RNA ADELITA+non-probe Ql (Stl) Not detected Normal [facility] Comment on above: Performed By: #### 1 [id number] #### [facility] [address] [place] [address] S. enterica+bongori DNA ADELITA+non-probe Ql (Stl) Not detected Normal [facility] Comment on above: Result Comment: This test result should be correlated with clinical presentations and medical history by a healthcare provider to determine its clinical significance. Performed By: #### 1 [id number] #### [facility] [address] [place] [address] Shigella species+EIEC invasion plasmid antigen H ipaH gene ADELITA+non-probe Ql (Stl) Not detected Normal [facility] Comment on above: Performed By: #### 1 [id number] #### [facility] [address] [place] [address] V. cholerae+parahaemoly ticus+vulnificus DNA ADELITA+non-probe Ql (Stl) Not detected Normal [facility] Comment on above: Performed By: #### 1 [id number] #### [facility] [address] [place] [address] Y. enterocolitica DNA ADELITA+non-probe Ql (Stl) Not detected Normal [facility] Comment on above: Performed By: #### 1 [id number] #### [facility] [address] [place] [address] Celiac Disease Comprehensive on 12-05-2023 Endomysium IgA Ql (S) Negative Invalid Interpretation Code Negative [facility] Comment on above: Performed By: #### 1 [id number] #### [facility] [address] [place] [address] Gliadin peptide IgA Qn (S) 4 unit(s) Invalid Interpretation Code 0-19 [facility] Comment on above: Result Comment: Nega tive 0 - 19 Weak Positive 20 - 30 Moderate to Strong Positive >30 Performed By: #### 1 [id number] #### [facility] [address] [place] [address] Gliadin peptide IgG Qn (S) 3 unit(s) Invalid Interpretation Code 0-19 [facility] Comment on above: Result Comment: Nega tive 0 - 19 Weak Positive 20 - 30 Moderate to Strong Positive >30 Performed By: #### 1 [id number] #### [facility] [address] [place] [address] IgA [Mass/Vol] 248 mg/dL Invalid Interpretation Code 64-422 [facility] Comment on above: Result Comment: Perf ormed at: [facility] [address] [id number] PhD Kirk Cm Performed By: #### 1 [id number] #### [facility] [address] [place] [address] tTG IgA Qn (S) <2 Invalid Interpretation Code 0-3 [facility] Comment on above: Result Comment: Nega tive 0 - 3 Weak Positive 4 - 10 Positive >10 Tissue Transglutaminase (tTG) has been identified as the endomysial antigen. Studies have demonstr- ated that endomysial IgA antibodies have over 99% specificity for gluten sensitive enteropathy. Performed By: #### 1 [id number] #### [facility] [address] [place] [address] tTG IgG Qn (S) 5 unit/mL Invalid Interpretation Code 0-5 [facility] Comment on above: Result Comment: Nega tive 0 - 5 Weak Positive 6 - 9 Positive >9 Performed By: #### 1 [id number] #### [facility] [address] [place] [address] CHEMISTRYOrdered By: SYSTEM SYSTEM on 12-04-2023 TSH Qn 1.76 m[IU]/L Normal 0.34 - 5.60 mcIU/mL Remisol Chem TSHon 12-04-2023 TSH Qn 1.76 m[IU]/L Normal 0.34-5.60 [facility] Comment on above: Performed By: #### 2 [id number] #### [facility] [address] [place] [address] CBC AUTO DIFFon 11-21-2021 BASO # 0.1 103/ul Normal 0.0-0.1 [facility] Comment on above: Performed By: #### C BC #### [facility] [address] [address] [address] Scooby Irvin Basophils/100 WBC (Bld) 0.5 % Normal 0.2-2.0 [facility] Comment on above: Performed By: #### C BC #### [facility] [address] [address] [address] Scooby Irvin EO # 0.0 103/ul Normal 0.0-0.7 [facility] Comment on above: Performed By: #### C BC #### [facility] [address] [place] [address] Dr. Scooby Irvin Eosinophils/100 WBC (Bld) 0.1 % Critically low 0.9-7.0 [facility] Comment on above: Performed By: #### C BC #### [facility] [address] [address] [address] Scooby Irvin Erythrocyte distribution width (RBC) [Ratio] 15.1 % Critically high 11.0-15.0 [facility] Comment on above: Performed By: #### C BC #### [facility] [address] [place] [address] Dr. Scooby Irvin Hematocrit (Bld) [Volume fraction] 39.4 % Normal 36.0-48.0 [facility] Comment on above: Performed By: #### C BC #### [facility] [address] [address] [address] Scooby Irvin Hemoglobin (Bld) [Mass/Vol] 12.6 g/dL Normal 12.0-16.0 [facility] Comment on above: Performed By: #### C BC #### [facility] [address] [address] [address] Scooby Irvin IG # 0.05 10e3/ul Critically high 0.00-0.03 [facility] Comment on above: Performed By: #### C BC #### [facility] [address] [place] [address] Dr. Scooby Irvin IG % 0.5 % Normal 0.0-0.5 [facility] Comment on above: Performed By: #### C BC #### [facility] [address] [place] [address] Dr. Scooby Irvin LYMPH # 1.3 103/ul Normal 1.2-3.8 [facility] Comment on above: Performed By: #### C BC #### [facility] [address] [place] [address] Dr. Scooby Irvin Lymphocytes/100 WBC (Bld) 13.2 % Critically low 20.5-60.0 [facility] Comment on above: Performed By: #### C BC #### [facility] [address] [place] [address] Dr. Scooby Irvin MANUAL DIFF REQ NO Normal [facility] Comment on above: Performed By: #### C BC #### [facility] [address] [place] [address] Dr. Scooby Irvin MCH (RBC) [Entitic mass] 30.0 pg Normal 26.7-34.0 [facility] Comment on above: Performed By: #### C BC #### [facility] [address] [place] [address] Dr. Scooby Irvin MCHC (RBC) [Mass/Vol] 32.0 g/dL Normal 29.9-35.2 [facility] Comment on above: Performed By: #### C BC #### [facility] [address] [place] [address] Dr. Scooby Irvin MCV (RBC) [Entitic vol] 93.8 fL Normal 81.0-99.0 [facility] Comment on above: Performed By: #### C BC #### [facility] [address] [place] [address] Dr. Scooby Irvin MONO # 0.7 103/ul Normal 0.3-0.8 [facility] Comment on above: Performed By: #### C BC #### [facility] [address] [place] [address] Dr. Scooby Irvin Monocytes/100 WBC (Bld) 7.2 % Normal 1.7-12.0 [facility] Comment on above: Performed By: #### C BC #### [facility] [address] [place] [address] Dr. Scooby Irvin NEUT # 7.5 103/ul Critically high 1.4-6.5 [facility] Comment on above: Performed By: #### C BC #### [facility] [address] [address] [address] Scooby Irvin Neutrophils/100 WBC (Bld) 78.5 % Critically high 43.0-75.0 [facility] Comment on above: Performed By: #### C BC #### [facility] [address] [place] [address] Dr. Scooby Irvin Platelet mean volume (Bld) [Entitic vol] 9.9 fL Normal 9.5-13.5 [facility] Comment on above: Performed By: #### C BC #### [facility] [address] [place] [address] Dr. Scooby Irvin PLT 230 103/ul Normal 150-450 [facility] Comment on above: Performed By: #### C BC #### [facility] [address] [place] [address] Dr. Scooby Irvin RBC 4.20 106/ul Normal 4.20-5.40 [facility] Comment on above: Performed By: #### C BC #### [facility] [address] [place] [address] Dr. Scooby Irvin WBC 9.5 103/ul Normal 4.0-11.0 [facility] Comment on above: Performed By: #### C BC #### [facility] [address] [place] [address] Dr. Scooby Irvin PROF 14(COMP METB)on 022 Albumin [Mass/Vol] 3.9 g/dL Normal 3.4-5.0 [facility] Comment on above: Performed By: #### C BC #### [facility] [address] [place] [address] Dr. Scooby Irvin Albumin/Globulin [Mass ratio] 1.0 {ratio} Normal [facility] Comment on above: Performed By: #### C BC #### [facility] [address] [place] [address] Dr. Scooby Irvin ALP [Catalytic activity/Vol] 87 U/L Normal 46-116 [facility] Comment on above: Performed By: #### C BC #### [facility] [address] [place] [address] Dr. Scooby Irvin ALT [Catalytic activity/Vol] 29 U/L Normal 14-59 [facility] Comment on above: Performed By: #### C BC #### [facility] [address] [place] [address] Dr. Scooby Irvin Anion gap [Moles/Vol] 14.1 mmol/L Normal [facility] Comment on above: Performed By: #### C BC #### [facility] [address] [place] [address] Dr. Scooby Irvin AST [Catalytic activity/Vol] 38 U/L Critically high 15-37 [facility] Comment on above: Performed By: #### C BC #### [facility] [address] [place] [address] Dr. Scooby Irvin Bilirubin [Mass/Vol] 0.5 mg/dL Normal 0.2-1.0 [facility] Comment on above: Performed By: #### C BC #### [facility] [address] [place] [address] Dr. Scooby Irvin Calcium [Mass/Vol] 9.2 mg/dL Normal 8.5-10.1 [facility] Comment on above: Performed By: #### C BC #### [facility] [address] [place] [address] Dr. Scooby Irvin Chloride [Moles/Vol] 102 mmol/L Normal 98-107 [facility] Comment on above: Performed By: #### C BC #### [facility] [address] [place] [address] Dr. Scooby Irvin CO2 [Moles/Vol] 25.7 mmol/L Normal 21.0-32.0 [facility] Comment on above: Performed By: #### C BC #### [facility] [address] [place] [address] Dr. Scooby Irvin Creatinine [Mass/Vol] 0.76 mg/dL Normal 0.55-1.02 [facility] Comment on above: Performed By: #### C BC #### [facility] [address] [place] [address] Dr. Scooby Irvin EGFR-AF NIGERIEN >60 Normal >=60 [facility] Comment on above: Performed By: #### C BC #### [facility] [address] [place] [address] Dr. Scooby Irvin EGFR-NON AF NIGERIEN >60 Normal >=60 [facility] Comment on above: Performed By: #### C BC #### [facility] [address] [place] [address] Dr. Scooby Irvin Globulin (S) [Mass/Vol] 3.8 g/dL Normal [facility] Comment on above: Performed By: #### C BC #### [facility] [address] [place] [address] Dr. Scooby Irvin Glucose [Mass/Vol] 104 mg/dL Normal 74-106 [facility] Comment on above: Performed By: #### C BC #### [facility] [address] [place] [address] Dr. Scooby Irvin Potassium [Moles/Vol] 4.8 mmol/L Normal 3.5-5.1 [facility] Comment on above: Performed By: #### C BC #### [facility] [address] [place] [address] Dr. Scooby Irvin Protein [Mass/Vol] 7.7 g/dL Normal 6.4-8.2 [facility] Comment on above: Performed By: #### C BC #### [facility] [address] [place] [address] Dr. Scooby Irvin Sodium [Moles/Vol] 137 mmol/L Normal 136-145 [facility] Comment on above: Performed By: #### C BC #### [facility] [address] [address] [address] Scooby Irvin Urea nitrogen [Mass/Vol] 9.0 mg/dL Normal 7.0-18.0 [facility] Comment on above: Performed By: #### C BC #### [facility] [address] [address] [address] Scooby Irvin Urea nitrogen/Creatinine [Mass ratio] 11.8 mg/mg Normal [facility] Comment on above: Performed By: #### C BC #### [facility] [address] [address] [address] Scooby Irvin LIPID PROFILEon 09-27-2021 CHOL-HDL RATIO NORM SEE BELOW Normal [facility] Comment on above: Result Comment: 3.3 - 4.4 LOW RISK 4.4 - 7.1 AVERAGE RISK 7.1 - 11.0 MODERATE RISK >11.0 HIGH RISK Performed By: #### C MP, LIPID #### [facility] [address] [place] [address] Dr. Scooby Irvin Cholesterol [Mass/Vol] 235 mg/dL Critically high <=200 [facility] Comment on above: Performed By: #### C MP, LIPID #### [facility] [address] [place] [address] Dr. Scooby Irvin Cholesterol in HDL [Mass/Vol] 65 mg/dL Critically high 40-60 [facility] Comment on above: Performed By: #### C MP, LIPID #### [facility] [facility] [address] [address] [address] Scooby Irvin Cholesterol in LDL [Mass/Vol] 156.8 mg/dL Normal [facility] Comment on above: Performed By: #### C MP, LIPID #### [facility] [id number] Scooby Irvin Cholesterol.total/Ch olesterol in HDL [Mass ratio] 3.6 {ratio} Normal [facility] Comment on above: Performed By: #### C MP, LIPID #### [facility] [address] [address] [address] Scooby Irvin HDL NORMAL > or = 60 mg/dl - LO W CARDIOVASCULAR RISK <40 mg/dl - HIGH CARDIOVASCULAR RISK Normal [facility] Comment on above: Performed By: #### C MP, LIPID #### [facility] [address] [place] [address] Dr. Scooby Irvin LDL CALC NORMAL SEE BELOW Normal [facility] Comment on above: Result Comment: <100 mg/dl OPTIMAL 100 - 129 mg/dl NEAR OR ABOVE OPTIMAL 130 - 159 mg/dl BORDERLINE HIGH 160 - 189 mg/dl HIGH >190 mg/dl VERY HIGH Performed By: #### C MP, LIPID #### [facility] [address] [place] [address] Dr. Scooby Irvin Triglyceride [Mass/Vol] 66 mg/dL Normal <=150 [facility] Comment on above: Performed By: #### C MP, LIPID #### [facility] [address] [place] [address] Dr. Scooby Irvin VLDL CALC 13.2 mg/dL Normal [facility] Comment on above: Performed By: #### C MP, LIPID #### [facility] [address] [place] [address] Dr. Scooby Irvin PROF 14(COMP METB)on 022 Albumin [Mass/Vol] 3.9 g/dL Normal 3.4-5.0 [facility] Comment on above: Performed By: #### C MP, LIPID #### [facility] [address] [place] [address] Dr. Scooby Irvin Albumin/Globulin [Mass ratio] 1.1 {ratio} Normal [facility] Comment on above: Performed By: #### C MP, LIPID #### [facility] [address] [place] [address] Dr. Scooby Irvin ALP [Catalytic activity/Vol] 87 U/L Normal 46-116 [facility] Comment on above: Performed By: #### C MP, LIPID #### [facility] [address] [place] [address] Dr. Scooby Irvin ALT [Catalytic activity/Vol] 27 U/L Normal 14-59 [facility] Comment on above: Performed By: #### C MP, LIPID #### [facility] [address] [address] [address] Scooby Irvin Anion gap [Moles/Vol] 16.9 mmol/L Normal [facility] Comment on above: Performed By: #### C MP, LIPID #### [facility] [address] [address] [address] Scooby Irvin AST [Catalytic activity/Vol] 21 U/L Normal 15-37 [facility] Comment on above: Performed By: #### C MP, LIPID #### [facility] [address] [place] [address] Dr. Scooby Irvin Bilirubin [Mass/Vol] 0.4 mg/dL Normal 0.2-1.0 [facility] Comment on above: Performed By: #### C MP, LIPID #### [facility] [address] [place] [address] Dr. cSooby Irvin Calcium [Mass/Vol] 8.7 mg/dL Normal 8.5-10.1 [facility] Comment on above: Performed By: #### C MP, LIPID #### [facility] [address] [place] [address] Dr. Scooby Irvin Chloride [Moles/Vol] 102 mmol/L Normal 98-107 [facility] Comment on above: Performed By: #### C MP, LIPID #### [facility] [address] [place] [address] Dr. Scooby Irvin CO2 [Moles/Vol] 22.0 mmol/L Normal 21.0-32.0 [facility] Comment on above: Performed By: #### C MP, LIPID #### [facility] [address] [place] [address] Dr. Scooby Irvin Creatinine [Mass/Vol] 0.73 mg/dL Normal 0.55-1.02 [facility] Comment on above: Performed By: #### C MP, LIPID #### [facility] [address] [place] [address] Dr. Scooby Irvin EGFR-AF NIGERIEN >60 Normal >=60 [facility] Comment on above: Performed By: #### C MP, LIPID #### [facility] [address] [place] [address] Dr. Scooby Irvin EGFR-NON AF NIGERIEN >60 Normal >=60 [facility] Comment on above: Performed By: #### C MP, LIPID #### [facility] [address] [place] [address] Dr. Scooby Irvin Globulin (S) [Mass/Vol] 3.7 g/dL Normal [facility] Comment on above: Performed By: #### C MP, LIPID #### [facility] [address] [place] [address] Dr. Scooby Irvin Glucose [Mass/Vol] 105 mg/dL Normal 74-106 [facility] Comment on above: Performed By: #### C MP, LIPID #### [facility] [address] [place] [address] Dr. Scooby Irvin Potassium [Moles/Vol] 3.9 mmol/L Normal 3.5-5.1 [facility] Comment on above: Performed By: #### C MP, LIPID #### [facility] [address] [place] [address] Dr. Scooby Irvin Protein [Mass/Vol] 7.6 g/dL Normal 6.4-8.2 [facility] Comment on above: Performed By: #### C MP, LIPID #### [facility] [address] [place] [address] Dr. Scooby Irvin Sodium [Moles/Vol] 137 mmol/L Normal 136-145 [facility] Comment on above: Performed By: #### C MP, LIPID #### [facility] [address] [place] [address] Dr. Scooby Irvin Urea nitrogen [Mass/Vol] 11.0 mg/dL Normal 7.0-18.0 [facility] Comment on above: Performed By: #### C MP, LIPID #### [facility] [address] [place] [address] Dr. Scooby Irvin Urea nitrogen/Creatinine [Mass ratio] 15.1 mg/mg Normal [facility] Comment on above: Performed By: #### C MP, LIPID #### [facility] [address] [place] [address] Dr. Scooby Irvin TSHon 09-27-2021 TSH 2.198 uIU/mL Normal 0.358-3.74 0 [facility] Comment on above: Performed By: #### T SH #### [facility] [address] [place] [address] Dr. Scooby Irvin Covid-19 PCR ([facility])on 09-11 SARS-CoV-2 (COVID-19) RNA ADELITA+probe Ql (Unsp spec) Not detected Normal NOT DETECTED [facility] Comment on above: Result Comment: This test is not yet approved or cleared by the [place] FDA. When there are no FDA-approved or cleared tests available, and other criteria are met, FDA can make tests available under an emergency access mechanism called an Emergency Use Authorization (EUA). The EUA for this test is supported by the [place] of Health and Human Service's (HHS's) declaration [...] SARS-CoV-2. Performed By: #### C BC #### [facility] [address] [place] [address] Dr. Scooby Irvin TSHon 06-22-2021 TSH 2.326 uIU/mL Normal 0.358-3.74 0 [facility] Comment on above: Performed By: #### C BC #### [facility] [address] [place] [address] Dr. Scooby Irvin TSH RANGE SEE BELOW Normal [facility] Comment on above: Result Comment: <0.3 4 UIU/ml HYPERTHYROID 0.34-5.60 UIU/ml EUTHYROID >5.60 UIU/ml HYPOTHYROID Performed By: #### C BC #### [facility] [address] [place], [place] [address] Dr. Scooby Irvin ABO/Rh Retypeon 05-31-2021 ABO/RH Recheck Result Positive Normal [facility] Comment on above: Result Comment: PERF ORMED BY: [facility] [address] [address] PATHOLOGIST TEACHER [employer] TRICIA Yin 05-31-2021 L -------- -------- Specimen: [id number] Received: 05/31/21 Status: LIDIA Duckworth Num: [id number] Spec Type: Surgical Subm Dr: Luis Gutierrez DO Tissues: A Parathyroid Gland (R/O PARATHYROID) B THYROID - Lobe (R SUBSTERNAL THYROID) Procedures: HE Stain/8, Gross/Micro L5, Gross/Micro L4 -------- Patient Age/Sex Location Account Attending Physician -------- Alexandra Cervantes 71/F [place] [id number] Luis Gutierrez DO -------- SPEC NUM: [id number] RECD: 05/31/21 STATUS: LIDIA DUCKWORTH NUM: [id number] KATHY: 05/31/21- SUBM DR: Luis Gutierrez DO ENTERED: 05/31/[address] [facility] [address]: LANCE TYPE: Surgical DEPT: S [...] Specimen: Received: 05/31/21 Status: LIDIA Duckworth Num: [id number] Spec Type: Surgical Subm Dr: Luis Gutierrez DO Tissues: A Parathyroid Gland (R/O PARATHYROID) B THYROID - Lobe (R SUBSTERNAL THYROID) Procedures: HE Stain/8, Gross/Micro L5, Gross/Micro L4 -------- Patient: Alexandra Cervantes [id number] (Continued) -------- Specimen: Received: 05/31/21 (Continued) Gross Description (Continued) Signed (signature on file) Tricia Oshea MD 06/01/211912 -------- Specimen: Received: 05/31/21 Status: LIDIA Duckworth Num: [id number] Spec Type: Surgical Subm Dr: Luis Gutierrez Tissues: A Parathyroid Gland (R/O PARATHYROID) B THYROID - Lobe (R SUBSTERNAL THYROID) Procedures: HE Stain/8, Gross/Micro L5, Gross/Micro L4 -------- Patient: Alexandra Cervantes [id number] (Continued) -------- Specimen: [id number] Received: 05/31/21-105 (Continued) Gross Description (Continued) demonstrates [...] microscopic findings support the above pathologic diagnosis. [address], [address], [address] -------- -------- Specimen: [id number] Received: (more content not included)... Normal [facility] LeukoReduced RBCon LeukoReduced RBC READY Normal [facility] Type and Screenon 05-31-2021 ABO and Rh group Nom (Bld) Blood group O Rh(D) positive Normal [facility] Comment on above: Order Comment: Trans fuse now? N Result Comment: PERF ORMED BY: [place] [address] PATHOLOGIST TE[employer] TRICIA OSHEA M.D. Basic Metabolic Panelon 05-12 Calcium [Mass/Vol] 9.5 mg/dL Normal 8.2-10.2 [facility] Comment on above: Result Comment: PERF ORMED BY: [facility] [address] [place] [address] PATHOLOGIST TEACH[employer] TRICIA OSHEA M.D. Performed By: #### C BC, BMP #### [facility] [address] [place] [address] [place] Chloride [Moles/Vol] 105 mmol/L Normal 95-114 [facility] Comment on above: Performed By: #### C BC, BMP #### [facility] [address] [id number] [place] CO2 [Moles/Vol] 23.0 mmol/L Normal 22.0-30.0 [facility] Comment on above: Performed By: #### C BC, BMP #### [address] Creatinine [Mass/Vol] 0.66 mg/dL Normal 0.44-1.03 [facility] Comment on above: Performed By: #### C BC, BMP #### [address] Estimated GFR ( Traci > 60 Normal [facility] Comment on above: Result Comment: GFR estimated reference range: According to KDOQI guidelines, <60 ml/min/1.73m2 is sufficient to diagnose a patient with chronic kidney disease. Performed By: #### C KELSEY, BMP #### [address] Estimated GFR (Non- Am > 60 Normal [facility] Comment on above: Performed By: #### C BC, BMP #### [address] Glucose [Mass/Vol] 89 mg/dL Normal 70-100 [facility] Comment on above: Result Comment: [place] Glucose Reference Range is dependent on time and content of last meal. Glucose of more than 200 mg/dL in a nonstressed, ambulatory subject supports the diagnosis of Diabetes Mellitus. ADA recommended reference range Performed By: #### C BC, BMP #### [address] Potassium [Moles/Vol] 4.0 mmol/L Normal 3.5-5.1 [facility] Comment on above: Performed By: #### C BC, BMP #### [address] Sodium [Moles/Vol] 137 mmol/L Normal 136-146 [facility] Comment on above: Performed By: #### C BC, BMP #### [address] Urea nitrogen [Mass/Vol] 10 mg/dL Normal 9-23 [facility] Comment on above: Performed By: #### C BC, BMP #### [place] [address] [place] Basophils Auto (Bld) [#/Vol] Ordered By: Luis Dengkam on 05-26-2021 Basophils (Bld) [#/Vol] 0.1 10*3/uL 0.0-0.2 [facility] Basophils/100 WBC Auto (Bld) Ordered By: Luis Arreagaziggy on 05-26-2021 Basophils/100 WBC (Bld) 0.9 % [facility] Blood hemoglobin measurement (mass/volume)Ordered By: Luis Dengkam on 05-26-2021 Hemoglobin (Bld) [Mass/Vol] 12.4 g/dL 11.8-15.4 [facility] Blood leukocytes automated c ount (number/volume)Ordered By: Luis Dengkam on 05-26-2021 WBC (Bld) [#/Vol] 8.8 10*3/uL 4.5-11.0 [facility] COVID-19 FRMCon 05-26-2021 SARS-CoV-2 (COVID-19) RNA ADELITA+probe Ql (Unsp spec) Negative Normal Negative [facility] Comment on above: Order Comment: Healt hcare Worker?: N Result Comment: Testing for SARS-CoV-2 by RT-PCR This test was developed and its performance characteristics determined by [employer] and validated at the [facility]. This test has not been FDA [...] is terminated or revoked sooner. PERFORMED BY: [facility] [place] [address] PATHOLOGIST TEACH[employer] TRICIA OSHEA M.D. Performed By: #### C OVID 19 [facility] #### [facility] [address] [place] [address] COVID-19 Positive/NegativeOr dered By: Luis Gutierrez on 05-26-2021 SARS-CoV-2 (COVID-19) N gene ADELITA+probe Ql (Resp) Negative Negative [facility] Comment on above: Testing for SARS-CoV -2 by RT-PCRThis test was developed and its performance characteristics determined by [employer] and validated at the [facility]. This test has not been FDA [...] 05-26-2021 Calcium [Mass/Vol] 9.4 mg/dL Normal 8.2-10.2 [facility] Comment on above: Performed By: #### C A, TSH3, PTH #### [address] Complete Blood Count Auto Di ffon 05-26-2021 Basophils (Bld) [#/Vol] 0.1 10*3/uL Normal 0.0-0.2 [facility] Comment on above: Result Comment: PERF ORMED BY: [place] [address] PATHOLOGIST TE[employer] TRICIA OSHEA M.D. Performed By: #### C BC, BMP #### [address] Basophils/100 WBC (Bld) 0.9 % Normal . [facility] Comment on above: Performed By: #### C BC, BMP #### [address] Eosinophils (Bld) [#/Vol] 0.0 10*3/uL Normal 0.0-0.45 [facility] Comment on above: Performed By: #### C BC, BMP #### [address] Eosinophils/100 WBC (Bld) 0.2 % Normal . [facility] Comment on above: Performed By: #### C KELSEY, BMP #### [address] Erythrocyte distribution width (RBC) [Ratio] 16.1 % High 11.9-15.3 [facility] Comment on above: Performed By: #### C BC, BMP #### [address] Hematocrit (Bld) [Volume fraction] 37.5 % Normal 34.0-46.4 [facility] Comment on above: Performed By: #### C BC, BMP #### [address] Hemoglobin (Bld) [Mass/Vol] 12.4 g/dL Normal 11.8-15.4 [facility] Comment on above: Performed By: #### C BC, BMP #### [address] Lymphocytes (Bld) [#/Vol] 1.4 10*3/uL Normal 1.00-4.8 [facility] Comment on above: Performed By: #### C BC, BMP #### [address] Lymphocytes/100 WBC (Bld) 15.8 % Normal . [facility] Comment on above: Performed By: #### C BC, BMP #### [address] MCH (RBC) [Entitic mass] 29.2 pg Normal 24.7-34.3 [facility] Comment on above: Performed By: #### C BC, BMP #### [address] MCV (RBC) [Entitic vol] 88.3 fL Normal 80-100 [facility] Comment on above: Performed By: #### C BC, BMP #### [address] Mean Corpuscular HGB Conc 33.1 g/dL Normal 32.0-35.0 [facility] Comment on above: Performed By: #### C KELSEY, BMP #### [address] Monocytes (Bld) [#/Vol] 0.7 10*3/uL Normal 0.0-0.8 [facility] Comment on above: Performed By: #### C KELSEY, BMP #### [address] Monocytes/100 WBC (Bld) 7.7 % Normal . [facility] Comment on above: Performed By: #### C KELSEY, BMP #### [address] Neutrophils (Bld) [#/Vol] 6.7 10*3/uL Normal 1.8-7.7 [facility] Comment on above: Performed By: #### C BC, BMP #### [address] Neutrophils/100 WBC (Bld) 75.4 % Normal . [facility] Comment on above: Performed By: #### C BC, BMP #### [address] Nucleated RBC/100 WBC (Bld) [Ratio] 0.1 % Normal 0-0.5 [facility] Comment on above: Performed By: #### C BC, BMP #### [address] Platelet mean volume (Bld) [Entitic vol] 8.6 fL Normal 6.3-10.7 [facility] Comment on above: Performed By: #### C BC, BMP #### [facility] [address] Platelets (Bld) [#/Vol] 241 10*3/uL Normal 150-450 [facility] Comment on above: Performed By: #### C KELSEY, BMP #### [facility] [address] RBC (Bld) [#/Vol] 4.24 10*6/uL Normal 3.60-5.00 [facility] Comment on above: Performed By: #### C KELSEY, BMP #### [facility] [address] WBC (Bld) [#/Vol] 8.8 10*3/uL Normal 4.5-11.0 [facility] Comment on above: Performed By: #### C BC, BMP #### [facility] [address] Creatinine and Glomerular fi ltration rate.predicted panel (S/P/Bld)Ordered By: Luis Gutierrez on 05-26-2021 Creatinine [Mass/Vol] 0.66 mg/dL 0.44-1.03 [facility] ECG 12 lead ECGon 05-26-2021 ECG 12 lead ECG [facility] [place] [address] [place] [address] Electrocardiograph Report Signed Patient: Alexandra Cervantes MR#: [id number] 2 : 1950 Acct:[id number] Age/Sex: 71 / F ADM Date: 05/26/21 Loc: [facility]: Luis Gutierrez DO Ordering [...] By Fredi Haines DO 05/27 0848 Normal [facility] Eosinophils Auto (Bld) [#/Vo l]Ordered By: Luis Gutierrez on 05-26-2021 Eosinophils (Bld) [#/Vol] 0.0 10*3/uL 0.0-0.45 [facility] Eosinophils/100 WBC Auto (Bl d)Ordered By: Luis Gutierrez on 05-26-2021 Eosinophils/100 WBC (Bld) 0.2 % [facility] Erythrocyte distribution wid th Auto (RBC) [Ratio]Ordered By: Luis Gutierrez on 05-26-2021 Erythrocyte distribution width (RBC) [Ratio] 16.1 % 11.9-15.3 [facility] Estimated glomerular filtrat ion rate (GFR) non- AmericanOrdered By: Luis Gutierrez on 05-26-2021 GFR/1.73 sq M.predicted among non-blacks MDRD (S/P/Bld) [Vol rate/Area] > 60 mL/Min [facility] Hematocrit Auto (Bld) [Volum e fraction]Ordered By: Luis Gutierrez on 05-26-2021 Hematocrit (Bld) [Volume fraction] 37.5 % 34.0-46.4 [facility] - Hematology and Cell countsOrdered By: Luis Gutierrez on 05-26-2021 Nucleated RBC/100 WBC (Bld) [Ratio] 0.1 % 0-0.5 [facility] Lymphocytes Auto (Bld) [#/Vo l]Ordered By: Luis Gutierrez on 05-26-2021 Lymphocytes (Bld) [#/Vol] 1.4 10*3/uL 1.00-4.8 [facility] Lymphocytes/100 WBC Auto (Bl d)Ordered By: Luis Gutierrez on 05-26-2021 Lymphocytes/100 WBC (Bld) 15.8 % [facility] MCH Auto (RBC) [Entitic mass ]Ordered By: Luis Gutierrez on 05-26-2021 MCH (RBC) [Entitic mass] 29.2 pg 24.7-34.3 [facility] MCHC Auto (RBC) [Mass/Vol]Or dered By: Luis Gutierrez on 05-26-2021 MCHC (RBC) [Mass/Vol] 33.1 g/dL 32.0-35.0 [facility] MCV Auto (RBC) [Entitic vol] Ordered By: Luis Gutierrez on 05-26-2021 MCV (RBC) [Entitic vol] 88.3 fL 80-100 [facility] Monocytes Auto (Bld) [#/Vol] Ordered By: Luis Gutierrez on 05-26-2021 Monocytes (Bld) [#/Vol] 0.7 10*3/uL 0.0-0.8 [facility] Monocytes/100 WBC Auto (Bld) Ordered By: Luis Gutierrez on 05-26-2021 Monocytes/100 WBC (Bld) 7.7 % [facility] Neutrophils Auto (Bld) [#/Vo l]Ordered By: Luis Gutierrez on 05-26-2021 Neutrophils (Bld) [#/Vol] 6.7 10*3/uL 1.8-7.7 [facility] Neutrophils/100 WBC Auto (Bl d)Ordered By: Luis Gutierrez on 05-26-2021 Neutrophils/100 WBC (Bld) 75.4 % [facility] No Panel InformationOrdered By: Luis Gutierrez on 05-26-2021 Estimated GFR () > 60 mL/Min [facility] Comment on above: GFR estimated refere nce range: According to KDOQI guidelines, <60 ml/min/1.73m2 is sufficient to diagnose a patient with chronic kidney disease. Pharmacy Creatinine Clearance (Chem N/A [facility] Parathyroid Hormone Intacton 05-26-2021 Parathyroid Hormone Intact 31.2 pg/mL Normal 12-88 [facility] Comment on above: Result Comment: PERF ORMED BY: [facility] [address] [place] [address] PATHOLOGIST TE[employer] TRICIA OSHEA M.D. Performed By: #### C BC, BMP #### [facility] [address] Platelet mean volume Auto (B ld) [Entitic vol]Ordered By: Luis Gutierrez on 05-26-2021 Platelet mean volume (Bld) [Entitic vol] 8.6 fL 6.3-10.7 [facility] Platelets Auto (Bld) [#/Vol] Ordered By: Luis Gutierrez on 05-26-2021 Platelets (Bld) [#/Vol] 241 10*3/uL 150-450 [facility] RBC Auto (Bld) [#/Vol]Ordere d By: Luis Gutierrez on 05-26-2021 RBC (Bld) [#/Vol] 4.24 10*6/uL 3.60-5.00 [facility] Serum or plasma calcium joseph urement (mass/volume)Ordered By: Luis Gutierrez on 05-26-2021 Calcium [Mass/Vol] 9.4 mg/dL 8.2-10.2 [facility] Serum or plasma chloride liv surement (moles/volume)Ordered By: Luis Gutierrez on 05-26-2021 Chloride [Moles/Vol] 105 mmol/L 95-114 [facility] Serum or plasma glucose joseph urement (mass/volume)Ordered By: Luis Gutierrez on 05-26-2021 Glucose [Mass/Vol] 89 mg/dL 70-100 [facility] Comment on above: ADA recommended refe rence rangeRandom Glucose Reference Range is dependent on time and content of last meal. Glucose of more than 200 mg/dL in a nonstressed, ambulatory subject supports the diagnosis of Diabetes Mellitus. Serum or plasma intact parat hyroid hormone measurement (mass/volume)Ordered By: Luis Gutierrez on 05-26-2021 Parathyrin.intact [Mass/Vol] 31.2 pg/mL 12-88 [facility] Serum or plasma potassium me asurement (moles/volume)Ordered By: Luis Gutierrez on 05-26-2021 Potassium [Moles/Vol] 4.0 mmol/L 3.5-5.1 [facility] Serum or plasma sodium measu rement (moles/volume)Ordered By: Luis Gutierrez on 05-26-2021 Sodium [Moles/Vol] 137 mmol/L 136-146 [facility] Serum or plasma total carbon dioxide measurement (moles/volume)Ordered By: Luis Gutierrez on 05-26-2021 CO2 [Moles/Vol] 23.0 mmol/L 22.0-30.0 [facility] Serum or plasma urea nitroge n measurement (mass/volume)Ordered By: Luis Gutierrez on 05-26-2021 Urea nitrogen [Mass/Vol] 10 mg/dL 9- [facility] TSH DL <= 0.005 mIU/L QnOrde red By: Luis Gutierrez on 05-26-2021 TSH Qn 0.86 m[IU]/L 0.45-5.33 [facility] Thyroid Stimulating Hormoneo n 05-26-2021 TSH Qn 0.86 m[IU]/L Normal 0.45-5.33 [facility] Comment on above: Performed By: #### C A, TSH3, PTH #### [address] MG MAMM SCREEN 3D GEORGES CADon 05-22-2021 MG MAMM SCREEN 3D GEOR[place]ES CAD Patient: ALEXANDRA CERVANTES Exam Date: 05/22/2021 : 1950 Gender:F Ordering : DR LAURITA MORALES M.D. Admission #: [id number] Family : Order #: [id number] CLICK HERE TO VIEW EXAM RADIOLOGY REPORT [...] No Treatments None Family Cancers None LOCATION: [facility] BREAST COMPOSITION: [...] MD on 05/22/2021 at 12:06 Normal [facility] CT Chest w/Contraston 2021 CT Chest w/Contrast Please see CT neck r eport dated: 05/17/2021. Report reported and signed by Fuentes Lion on 05/22/[address] [facility] CT Soft Tissue Neck w/ Contr ast*on [...] by Fuentes Lion on 05/22/2021 1528 Normal [facility] Specialist [place] esophaguson 05-04-2021 [place] esophagus [facility] Main [address] [address] Fluoroscopy Report Signed Patient: Alexandra Cervantes MR#: [id number] 2 : 1950 Acct:[id number] Age/Sex: 71 / F ADM Date: 05/04/21 [...] Kitchen Jr., M.D.05/04/2021 3:37 PM Dictation Location: [place] [address] Transcribed By: [facility] 05/04/211536 Dictated By: Selvin Kitchen Jr, MD 05/04/211531 Signed By: 05/04/21 153 [facility] CBC AUTO DIFFon 04-20-2021 BASO # 0.1 103/ul Normal 0.0-0.1 [facility] Comment on above: Performed By: #### C #### [facility] [address] [place] [address] Dr. Scooby Irvin Basophils/100 WBC (Bld) 0.4 % Normal 0.2-2.0 [facility] Comment on above: Performed By: #### C BC #### [facility] [address] [place] [address] Dr. Scooby Irvin EO # 0.0 103/ul Normal 0.0-0.7 [facility] Comment on above: Performed By: #### C BC #### [facility] [address] [place] [address] Dr. Scooby Irvin Eosinophils/100 WBC (Bld) 0.2 % Critically low 0.9-7.0 [facility] Comment on above: Performed By: #### C BC #### [facility] [address] [place] [address] Dr. Scooby Irvin Erythrocyte distribution width (RBC) [Ratio] 16.7 % Critically high 11.0-15.0 [facility] Comment on above: Performed By: #### C BC #### [facility] [address] [place] [address] Dr. Scooby Irvin Hematocrit (Bld) [Volume fraction] 37.6 % Normal 36.0-48.0 [facility] Comment on above: Performed By: #### C BC #### [facility] [address] [place] [address] Dr. Scooby Irvin Hemoglobin (Bld) [Mass/Vol] 12.0 g/dL Normal 12.0-16.0 [facility] Comment on above: Performed By: #### C BC #### [facility] [address] [place] [address] Dr. Scooby Irvin IG # 0.02 10e3/ul Normal 0.00-0.03 [facility] Comment on above: Performed By: #### C BC #### [facility] [address] [place] [address] Dr. Scooby Irvin IG % 0.2 % Normal 0.0-0.5 [facility] Comment on above: Performed By: #### C BC #### [facility] [address] [place] [address] Dr. Scooby Irvin LYMPH # 1.6 103/ul Normal 1.2-3.8 [facility] Comment on above: Performed By: #### C BC #### [facility] [address] [place] [address] Dr. Scooby Irvin Lymphocytes/100 WBC (Bld) 13.6 % Critically low 20.5-60.0 [facility] Comment on above: Performed By: #### C BC #### [facility] [address] [place] [address] Dr. Scooby Irvin MANUAL DIFF REQ NO Normal [facility] Comment on above: Performed By: #### C BC #### [facility] [address] [place] [address] Dr. Scooby Irvin MCH (RBC) [Entitic mass] 28.6 pg Normal 26.7-34.0 [facility] Comment on above: Performed By: #### C BC #### [facility] [address] [place] [address] Dr. Scooby Irvin MCHC (RBC) [Mass/Vol] 31.9 g/dL Normal 29.9-35.2 [facility] Comment on above: Performed By: #### C BC #### [facility] [address] [place] [address] Dr. Scooby Irvin MCV (RBC) [Entitic vol] 89.5 fL Normal 81.0-99.0 [facility] Comment on above: Performed By: #### C BC #### [facility] [address] [place] [address] Dr. Scooby Irvin MONO # 0.7 103/ul Normal 0.3-0.8 [facility] Comment on above: Performed By: #### C BC #### [facility] [address] [place] [address] Dr. Scooby Irvin Monocytes/100 WBC (Bld) 5.8 % Normal 1.7-12.0 [facility] Comment on above: Performed By: #### C BC #### [facility] [address] [address] [address] Scooby Irvin NEUT # 9.1 103/ul Critically high 1.4-6.5 [facility] Comment on above: Performed By: #### C BC #### [facility] [address] [place] [address] Dr. Scooby Irvin Neutrophils/100 WBC (Bld) 79.8 % Critically high 43.0-75.0 [facility] Comment on above: Performed By: #### C BC #### [facility] [address] [place] [address] Dr. Scooby Irvin Platelet mean volume (Bld) [Entitic vol] 10.2 fL Normal 9.5-13.5 [facility] Comment on above: Performed By: #### C BC #### [facility] [address] [place] [address] Dr. Scooby Irvin PLT 217 103/ul Normal 150-450 [facility] Comment on above: Performed By: #### C BC #### [facility] [address] [place] [address] Dr. Scooby Irvin RBC 4.20 106/ul Normal 4.20-5.40 [facility] Comment on above: Performed By: #### C BC #### [facility] [address] [place] [address] Dr. Scooby Irvin WBC 11.4 103/ul Critically high 4.0-11.0 [facility] Comment on above: Performed By: #### C BC #### [facility] [address] [place] [address] Dr. Scooby Irvin PROF 14(COMP METB)on 022 Albumin [Mass/Vol] 3.9 g/dL Normal 3.5-5.0 [facility] Comment on above: Performed By: #### C MP #### [facility] [address] [place] [address] Dr. Scooby Irvin Albumin/Globulin [Mass ratio] 1.1 {ratio} Normal [facility] Comment on above: Performed By: #### C MP #### [facility] [address] [place] [address] Dr. Scooby Irvin ALP [Catalytic activity/Vol] 72 U/L Normal 38-126 [facility] Comment on above: Performed By: #### C MP #### [facility] [address] [place] [address] Dr. Scooby Irvin ALT [Catalytic activity/Vol] 23 U/L Normal 9-52 [facility] Comment on above: Performed By: #### C MP #### [facility] [address] [place] [address] Dr. Scooby Irvin Anion gap [Moles/Vol] 10.2 mmol/L Normal [facility] Comment on above: Performed By: #### C MP #### [facility] [address] [place] [address] Dr. Scooby Irvin AST [Catalytic activity/Vol] 20 U/L Normal 14-36 [facility] Comment on above: Performed By: #### C MP #### [facility] [address] [place] [address] Dr. Scooby Irvin Bilirubin [Mass/Vol] 0.5 mg/dL Normal 0.2-1.3 [facility] Comment on above: Performed By: #### C MP #### [facility] [address] [place] [address] Dr. Scooby Irvin Calcium [Mass/Vol] 8.8 mg/dL Normal 8.4-10.2 [facility] Comment on above: Performed By: #### C MP #### [facility] [address] [place] [address] Dr. Scooby Irvin Chloride [Moles/Vol] 104 mmol/L Normal 98-107 [facility] Comment on above: Performed By: #### C MP #### [facility] [address] [place] [address] Dr. Scooby Irvin CO2 [Moles/Vol] 28.0 mmol/L Normal 22.0-30.0 [facility] Comment on above: Performed By: #### C MP #### [facility] [address] [place] [address] Dr. Scooby Irvin Creatinine [Mass/Vol] 0.87 mg/dL Normal 0.52-1.04 [facility] Comment on above: Performed By: #### C MP #### [facility] [address] [address] [address] Scooby Irvin EGFR-AF NIGERIEN >60 Normal >=60 [facility] Comment on above: Performed By: #### C MP #### [facility] [address] [address] [address] Scooby Irvin EGFR-NON AF NIGERIEN >60 Normal >=60 [facility] Comment on above: Performed By: #### C MP #### [facility] [address] [address] [address] Scooby Irvin Globulin (S) [Mass/Vol] 3.5 g/dL Normal [facility] Comment on above: Performed By: #### C MP #### [facility] [address] [place] [address] Dr. Scooby Irvin Glucose [Mass/Vol] 93 mg/dL Normal 74-106 [facility] Comment on above: Performed By: #### C MP #### [facility] [address] [place] [address] Dr. Scooby Irvin Potassium [Moles/Vol] 4.2 mmol/L Normal 3.4-5.0 [facility] Comment on above: Performed By: #### C MP #### [facility] [address] [place] [address] Dr. Scooby Irvin Protein [Mass/Vol] 7.4 g/dL Normal 6.1-8.2 [facility] Comment on above: Performed By: #### C MP #### [facility] [address] [place] [address] Dr. Scooby Irvin Sodium [Moles/Vol] 138 mmol/L Normal 137-145 [facility] Comment on above: Performed By: #### C MP #### [facility] [address] [place] [address] Dr. Scooby Irvin Urea nitrogen [Mass/Vol] 15.0 mg/dL Normal 7.0-17.0 [facility] Comment on above: Performed By: #### C MP #### [facility] [address] [place], [place] [address] Dr. Scooby Irvin Urea nitrogen/Creatinine [Mass ratio] 17.2 mg/mg Normal [facility] Comment on above: Performed By: #### C JARED #### [facility] [address] [place], [place] [address] Dr[address] Scooby Irvin PET CT SKULL BASE [...] FUENTES BARRETO Date: 2021-04-07 08:23 Normal [facility] CT LUNG CANCER SCREENINGon 0 03-23-2021 CT [...] FUENTES BARRETO Date: 2021-03-23 09:57 Normal [facility] CBC AUTO DIFFon 03-09-2021 BASO # 0.1 103/ul Normal 0.0-0.1 [facility] Comment on above: Performed By: #### C BC #### [facility] [address] [address] [address] Scooby Irvin Basophils/100 WBC (Bld) 1.2 % Normal 0.2-2.0 [facility] Comment on above: Performed By: #### C BC #### [facility] [address] [address] [address] Scooby Irvin EO # 0.1 103/ul Normal 0.0-0.7 [facility] Comment on above: Performed By: #### C BC #### [facility] [address] [address] [address] Scooby Irvin Eosinophils/100 WBC (Bld) 1.4 % Normal 0.9-7.0 [facility] Comment on above: Performed By: #### C BC #### [facility] [address] [place] [address] Dr. Scooby Irvin Erythrocyte distribution width (RBC) [Ratio] 16.3 % Critically high 11.0-15.0 [facility] Comment on above: Performed By: #### C BC #### [facility] [address] [place] [address] Dr. Scooby Irvin Hematocrit (Bld) [Volume fraction] 39.6 % Normal 36.0-48.0 [facility] Comment on above: Performed By: #### C BC #### [facility] [address] [place] [address] Dr. Scooby Irvin Hemoglobin (Bld) [Mass/Vol] 12.6 g/dL Normal 12.0-16.0 [facility] Comment on above: Performed By: #### C BC #### [facility] [address] [place] [address] Dr. Scooby Irvin IG # 0.01 10e3/ul Normal 0.00-0.03 [facility] Comment on above: Performed By: #### C BC #### [facility] [address] [place] [address] Dr. Scooby Irvin IG % 0.2 % Normal 0.0-0.5 [facility] Comment on above: Performed By: #### C BC #### [facility] [address] [place] [address] Dr. Scooby Irvin LYMPH # 1.6 103/ul Normal 1.2-3.8 [facility] Comment on above: Performed By: #### C BC #### [facility] [address] [place] [address] Dr. Scooby Irvin Lymphocytes/100 WBC (Bld) 30.7 % Normal 20.5-60.0 [facility] Comment on above: Performed By: #### C BC #### [facility] [address] [place] [address] Dr. Scooby Irvin MANUAL DIFF REQ NO Normal [facility] Comment on above: Performed By: #### C BC #### [facility] [address] [address] [address] Scooby Irvin MCH (RBC) [Entitic mass] 28.4 pg Normal 26.7-34.0 [facility] Comment on above: Performed By: #### C BC #### [facility] [address] [place] [address] Dr. Scooby Irvin MCHC (RBC) [Mass/Vol] 31.8 g/dL Normal 29.9-35.2 [facility] Comment on above: Performed By: #### C BC #### [facility] [address] [place] [address] Dr. Scooby Irvin MCV (RBC) [Entitic vol] 89.2 fL Normal 81.0-99.0 [facility] Comment on above: Performed By: #### C BC #### [facility] [address] [place] [address] Dr. Scooby Irvin MONO # 0.6 103/ul Normal 0.3-0.8 [facility] Comment on above: Performed By: #### C BC #### [facility] [address] [place] [address] Dr. Scooby Irvin Monocytes/100 WBC (Bld) 11.5 % Normal 1.7-12.0 [facility] Comment on above: Performed By: #### C BC #### [facility] [address] [place] [address] Dr. Scooby Irvin NEUT # 2.8 103/ul Normal 1.4-6.5 [facility] Comment on above: Performed By: #### C BC #### [facility] [address] [place] [address] Dr. Scooby Irvin Neutrophils/100 WBC (Bld) 55.0 % Normal 43.0-75.0 [facility] Comment on above: Performed By: #### C BC #### [facility] [address] [place] [address] Dr. Scooby Irvin Platelet mean volume (Bld) [Entitic vol] 10.3 fL Normal 9.5-13.5 [facility] Comment on above: Performed By: #### C BC #### [facility] [address] [place] [address] Dr. Scooby Irvin PLT 208 103/ul Normal 150-450 [facility] Comment on above: Performed By: #### C BC #### [facility] [address] [place], [place] [id number] Dr. Scooby Irvin RBC 4.44 106/ul Normal 4.20-5.40 [facility] Comment on above: Performed By: #### C BC #### [facility] [address] [place] [address] Dr. Scooby Irvin WBC 5.1 103/ul Normal 4.0-11.0 [facility] Comment on above: Performed By: #### C BC #### [facility] [address] [place] [address] Dr. Scooby Irvin FREE T4on 03-09-2021 Free T4 [Mass/Vol] 1.15 ng/dL Normal 0.78-2.19 [facility] Comment on above: Performed By: #### C BC #### [facility] [address] [place] [address] Dr. Scooby Irvin LIPID PROFILEon 03-09-2021 CHOL-HDL RATIO NORM SEE BELOW Normal [facility] Comment on above: Result Comment: 3.3 - 4.4 LOW RISK 4.4 - 7.1 AVERAGE RISK 7.1 - 11.0 MODERATE RISK >11.0 HIGH RISK Performed By: #### L IPID, CMP, TSH #### [facility] [address] [place] [address] Dr. Scooby Irvin Cholesterol [Mass/Vol] 227 mg/dL Critically high <=200 [facility] Comment on above: Performed By: #### L IPID, CMP, TSH #### [facility] [address] [place] [address] Dr. Scooby Irvin Cholesterol in HDL [Mass/Vol] 65 mg/dL Normal [facility] Comment on above: Performed By: #### L IPID, CMP, TSH #### [facility] [address] [place] [address] Dr. Scooby Irvin Cholesterol in LDL [Mass/Vol] 142.6 mg/dL Normal [facility] Comment on above: Performed By: #### L IPID, CMP, TSH #### [facility] [address] [address] [address] Scooby Irvin Cholesterol.total/Ch olesterol in HDL [Mass ratio] 3.5 {ratio} Normal [facility] Comment on above: Performed By: #### L IPID, CMP, TSH #### [facility] [address] [address] [address] Scooby Irvin HDL NORMAL > or = 60 mg/dl - LO W CARDIOVASCULAR RISK <40 mg/dl - HIGH CARDIOVASCULAR RISK Normal [facility] Comment on above: Performed By: #### L IPID, CMP, TSH #### [facility] [address] [place] [address] Dr. Scooby Irvin LDL CALC NORMAL SEE BELOW Normal [facility] Comment on above: Result Comment: <100 mg/dl OPTIMAL 100 - 129 mg/dl NEAR OR ABOVE OPTIMAL 130 - 159 mg/dl BORDERLINE HIGH 160 - 189 mg/dl HIGH >190 mg/dl VERY HIGH Performed By: #### L IPID, CMP, TSH #### [facility] [address] [address] [address] Scooby Irvin Triglyceride [Mass/Vol] 97 mg/dL Normal <=150 [facility] Comment on above: Performed By: #### L IPID, CMP, TSH #### [facility] [address] [place] [address] Dr. Scooby Irvin VLDL CALC 19.4 mg/dL Normal [facility] Comment on above: Performed By: #### L IPID, CMP, TSH #### [facility] [address] [address] [address] Scooby Irvin PROF 14(COMP METB)on 022 Albumin [Mass/Vol] 4.0 g/dL Normal 3.5-5.0 [facility] Comment on above: Performed By: #### L IPID, CMP, TSH #### [facility] [address] [address] [address] Scooby Irvin Albumin/Globulin [Mass ratio] 1.1 {ratio} Normal [facility] Comment on above: Performed By: #### L IPID, CMP, TSH #### [facility] [address] [place] [address] Dr. Scooby Irvin ALP [Catalytic activity/Vol] 80 U/L Normal 38-126 [facility] Comment on above: Performed By: #### L IPID, CMP, TSH #### [facility] [address] [place] [address] Dr. Scooby Irvin ALT [Catalytic activity/Vol] 35 U/L Normal 9-52 [facility] Comment on above: Performed By: #### L IPID, CMP, TSH #### [facility] [address] [place] [address] Dr. Scooby Irvin Anion gap [Moles/Vol] 11.8 mmol/L Normal [facility] Comment on above: Performed By: #### L IPID, CMP, TSH #### [facility] [address] [place] [address] Dr. Scooby Irvin AST [Catalytic activity/Vol] 24 U/L Normal 14-36 [facility] Comment on above: Performed By: #### L IPID, CMP, TSH #### [facility] [address] [place] [address] Dr. Scooby Irvin Bilirubin [Mass/Vol] 0.5 mg/dL Normal 0.2-1.3 [facility] Comment on above: Performed By: #### L IPID, CMP, TSH #### [facility] [address] [place] [address] Dr. Scooby Irvin Calcium [Mass/Vol] 9.3 mg/dL Normal 8.4-10.2 [facility] Comment on above: Performed By: #### L IPID, CMP, TSH #### [facility] [address] [place] [address] Dr. Scooby Irvin Chloride [Moles/Vol] 105 mmol/L Normal 98-107 [facility] Comment on above: Performed By: #### L IPID, CMP, TSH #### [facility] [address] [place] [address] Dr. Scooby Irvin CO2 [Moles/Vol] 26.2 mmol/L Normal 22.0-30.0 [facility] Comment on above: Performed By: #### L IPID, CMP, TSH #### [facility] [address] [address] [address] Scooby Irvin Creatinine [Mass/Vol] 0.83 mg/dL Normal 0.52-1.04 [facility] Comment on above: Performed By: #### L IPID, CMP, TSH #### [facility] [address] [address] [address] Scooby Irvin EGFR-AF NIGERIEN >60 Normal >=60 [facility] Comment on above: Performed By: #### L IPID, CMP, TSH #### [facility] [address] [address] [address] Scooby Irvin EGFR-NON AF NIGERIEN >60 Normal >=60 [facility] Comment on above: Performed By: #### L IPID, CMP, TSH #### [facility] [address] [address] [address] Scooby Irvin Globulin (S) [Mass/Vol] 3.8 g/dL Normal [facility] Comment on above: Performed By: #### L IPID, CMP, TSH #### [facility] [address] [address] [address] Scooby Irvin Glucose [Mass/Vol] 112 mg/dL Critically high 74-106 [facility] Comment on above: Performed By: #### L IPID, CMP, TSH #### [facility] [address] [address] [address] Scooby Irvin Potassium [Moles/Vol] 4.0 mmol/L Normal 3.4-5.0 [facility] Comment on above: Performed By: #### L IPID, CMP, TSH #### [facility] [address] [address] [address] Scooby Irvin Protein [Mass/Vol] 7.8 g/dL Normal 6.1-8.2 [facility] Comment on above: Performed By: #### L IPID, CMP, TSH #### [facility] [address] [address] [address] Scooby Irvin Sodium [Moles/Vol] 139 mmol/L Normal 137-145 [facility] Comment on above: Performed By: #### L IPID, CMP, TSH #### [facility] [address] [address] [address] Scooby Irvin Urea nitrogen [Mass/Vol] 15.0 mg/dL Normal 7.0-17.0 [facility] Comment on above: Performed By: #### L IPID, CMP, TSH #### [facility] [address] [address] [address] Scooby Irvin Urea nitrogen/Creatinine [Mass ratio] 18.1 mg/mg Normal [facility] Comment on above: Performed By: #### L IPID, CMP, TSH #### [facility] [address] [place] [address] Dr. Scooby Irvin TSHon 03-09-2021 TSH 2.761 uIU/mL Normal 0.470-4.68 0 [facility] Comment on above: Performed By: #### L IPID, CMP, TSH #### [facility] [address] [place] [address] Dr. Scooby Irvin TSH RANGE SEE BELOW Normal [facility] Comment on above: Result Comment: <0.3 4 UIU/ml HYPERTHYROID 0.34-5.60 UIU/ml EUTHYROID >5.60 UIU/ml HYPOTHYROID Performed By: #### L IPID, CMP, TSH #### [facility] [address] [place] [address] Dr. Scooby Irvin Vital Signs Date Time Vital Sign Value Performing Clinician Facility 09-30-2024 09:54-0400 Body height 140.97 cm Laurita Morales MD Work Phone: [facility] 09-30-2024 09:54-0400 Body mass index (BMI) [Ratio] 37.5 kg/m2 Laurita Morales MD Work Phone: [facility] 09-30-2024 09:54-0400 Body weight 74.6 kg Laurita Morales MD Work Phone: [facility] 06-23-2024 13:30-0400 Body height 149.9 cm Dolly ORR Work Phone: [facility] 06-23-2024 13:30-0400 Body mass index (BMI) [Ratio] 32.11 kg/m2 Dolly ORR Work Phone: [facility] 06-23-2024 13:30-0400 Body weight 72.12 kg Dolly ORR Work Phone: [facility] 04-21-2024 08:53-0400 Body height 140.97 cm [facility] 04-21-2024 08:53-0400 Body mass index (BMI) [Ratio] 36.5 kg/m2 [facility] 04-21-2024 08:53-0400 Body weight 72.57 kg [facility] 04-21-2024 08:53-0400 Diastolic blood pressure 70 mm[Hg] [facility] 04-21-2024 08:53-0400 Heart rate 80 /min [facility] 04-21-2024 08:53-0400 Systolic blood pressure 128 mm[Hg] [facility] 03-20-2024 10:54-0500 Blood Pressure Location Salazar Sarmini [facility] 03-20-2024 10:54-0500 Diastolic blood pressure 74 mm[Hg] Salazar Sarmini [facility] 03-20-2024 10:54-0500 Heart rate 71 /min Salazar Sarmini [facility] 03-20-2024 10:54-0500 Systolic blood pressure 129 mm[Hg] Salazar Sarmini [facility] 01-30-2024 13:46-0500 Diastolic blood pressure 82 mm[Hg] Salazar Sarmini [facility] 01-30-2024 13:46-0500 Mean blood pressure 104 mm[Hg] Salazar Sarmini [facility] 01-30-2024 13:46-0500 Systolic blood pressure 148 mm[Hg] Salazar Sarmini [facility] 01-30-2024 13:41-0500 Blood Pressure Location Salazar Sarmini [facility] 01-30-2024 13:41-0500 Diastolic blood pressure 85 mm[Hg] Salazar Sarmini [facility] 01-30-2024 13:41-0500 Heart rate 80 /min Salazar Sarmini [facility] 01-30-2024 13:41-0500 Systolic blood pressure 157 mm[Hg] Salazar Sarmini [facility] 01-15-2024 13:25-0500 Diastolic blood pressure 86 mm[Hg] Salazar Sarmini [facility] 01-15-2024 13:25-0500 Heart rate 79 /min Salazar Sarmini [facility] 01-15-2024 13:25-0500 Mean blood pressure 108 mm[Hg] Salazar Sarmini [facility] 01-15-2024 13:25-0500 Respiratory rate 17 /min Salazar Sarmini [facility] 01-15-2024 13:25-0500 SaO2% (BldA) [Mass fraction] 96 % Salazar Sarmini [facility] 01-15-2024 13:25-0500 Systolic blood pressure 153 mm[Hg] Salazar Sarmini [facility] 01-15-2024 13:15-0500 Diastolic blood pressure 81 mm[Hg] Salazar Sarmini [facility] 01-15-2024 13:15-0500 Heart rate 79 /min Salazar Sarmini [facility] 01-15-2024 13:15-0500 Mean blood pressure 103 mm[Hg] Salazar Sarmini [facility] 01-15-2024 13:15-0500 Respiratory rate 17 /min Salazar Sarmini [facility] 01-15-2024 13:15-0500 SaO2% (BldA) [Mass fraction] 96 % Salazar Sarmini [facility] 01-15-2024 13:15-0500 Systolic blood pressure 148 mm[Hg] Salazar Sarmini [facility] 01-15-2024 13:00-0500 Diastolic blood pressure 70 mm[Hg] Salazar Sarmini [facility] 01-15-2024 13:00-0500 Heart rate 72 /min Salazar Sarmini [facility] 01-15-2024 13:00-0500 Mean blood pressure 93 mm[Hg] Salazar Sarmini [facility] 01-15-2024 13:00-0500 SaO2% (BldA) [Mass fraction] 97 % Salazar Sarmini [facility] 01-15-2024 13:00-0500 Systolic blood pressure 140 mm[Hg] Salazar Sarmini [facility] 01-15-2024 12:50-0500 Body temperature 98.24 [degF] Salazar Sarmini [facility] 01-15-2024 12:44-0500 Respiratory rate 18 /min Salazar Sarmini [facility] 01-15-2024 12:40-0500 Respiratory rate 19 /min Salazar Sarmini [facility] 01-15-2024 12:35-0500 Respiratory rate 19 /min Salazar Sarmini [facility] 01-15-2024 10:59-0500 Blood Pressure Location Salazar Sarmini [facility] 01-15-2024 10:59-0500 Body temperature 98.24 [degF] Salazar Sarmini [facility] 12-04-2023 08:58-0400 Blood Pressure Location Salazar Sarmini [facility] 12-04-2023 08:58-0400 Diastolic blood pressure 84 mm[Hg] Salazar Sarmini [facility] 12-04-2023 08:58-0400 Heart rate 84 /min Salazar Sarmini [facility] 12-04-2023 08:58-0400 Respiratory rate 16 /min Salazar Sarmini [facility] 12-04-2023 08:58-0400 Systolic blood pressure 156 mm[Hg] Salazar Sarmini [facility] 12-04-2023 08:49-0400 Blood Pressure Location Martin Tatum [facility] 12-04-2023 08:49-0400 Respiratory rate 16 /min Martin Tatum [facility] 09-04-2022 09:00-0400 Body height 140.97 cm Laurita Morales Other [facility] Other 09-04-2022 09:00-0400 Body mass index (BMI) [Ratio] 36.74 kg/m2 Laurita Morales Other [facility] Other 09-04-2022 09:00-0400 Body weight 73.03 kg Laurita Morales Other [facility] Other 09-04-2022 09:00-0400 Diastolic blood pressure 78 mm[Hg] Laurita Morales Other [facility] Other 09-04-2022 09:00-0400 SaO2% (BldA) [Mass fraction] 97 % Laurita Morales Other [facility] Other 09-04-2022 09:00-0400 Systolic blood pressure 132 mm[Hg] Laurita Morales Other [facility] Other 03-01-2022 10:30-0500 Body height 140.97 cm Laurita Morales Other [facility] Other 03-01-2022 10:30-0500 Body mass index (BMI) [Ratio] 36.06 kg/m2 Laurita Morales Other [facility] Other 03-01-2022 10:30-0500 Body weight 71.67 kg Laurita Morales Other [facility] Other 03-01-2022 10:30-0500 Diastolic blood pressure 84 mm[Hg] Laurita Morales Other [facility] Other 03-01-2022 10:30-0500 SaO2% (BldA) [Mass fraction] 98 % Laurita Morales Other [facility] Other 03-01-2022 10:30-0500 Systolic blood pressure 132 mm[Hg] Laurita Morales Other [facility] Other 11-08-2021 10:17-0400 Diastolic blood pressure 74 mm[Hg] Farooq SALAM [facility] 11-08-2021 10:17-0400 Mean blood pressure 99 mm[Hg] Farooq SALAM [facility] 11-08-2021 10:17-0400 Systolic blood pressure 148 mm[Hg] Farooq SALAM [facility] 11-08-2021 10:15-0400 Blood Pressure Location Farooq SALAM [facility] 11-08-2021 10:15-0400 Diastolic blood pressure 95 mm[Hg] Farooq SALAM [facility] 11-08-2021 10:15-0400 Heart rate 78 /min Farooq SALAM [facility] 11-08-2021 10:15-0400 Respiratory rate 16 /min Farooq SALAM [facility] 11-08-2021 10:15-0400 Systolic blood pressure 159 mm[Hg] Farooq SALAM [facility] 05-10-2021 11:11-0400 Diastolic blood pressure 90 mm[Hg] Farooq SALAM [facility] 05-10-2021 11:11-0400 Systolic blood pressure 180 mm[Hg] Farooq SALAM [facility] Encounters Encounter Date Encounter Type Care Provider Facility Start: 09-30-2024 End: 09-30-2024 ambulatory Laurita Morales MD Work Phone: [facility] Work Phone: Start: 09-30-2024 End: 09-30-2024 Patient encounter procedure Nasim Segal [facility] Work Phone: Start: 08-20-2024 End: 08-20-2024 Bamboo [...] 08-10-2024 End: 08-10-2024 ambulatory Zulay Cook MD Facility:[facility] Start: 07-22-2024 End: 07-22-2024 Bamboo flowsheet Dolly ORR Work Phone: [facility] Start: 07-22-2024 End: 07-22-2024 Bamboo flowsheet Dolly Veras PA Work Phone: [facility] Start: 07-22-2024 End: 07-22-2024 Postop follow up visit related to original px Dolly ORR Work Phone: [facility] Comment on above: S/P right knee arthr oscopy (Primary Dx) Start: 07-22-2024 End: 07-22-2024 ambulatory DOLLY VERAS Not Available Start: 07-03-2024 End: 07-06-2024 Refill Abhi Ramires NON DESTRUCTIVE EVALUATION MANAGER Work Phone: [facility] Comment on above: Acute [...] Clinisync Result Encounter Dolly ORR Work Phone: [facility] External Department Unsolicited Start: 06-24-2024 End: 06-24-2024 Clinisync Result Encounter Dolly ORR Work Phone: [facility] External Department Unsolicited Start: 06-23-2024 End: 06-23-2024 Bamboo flowsheet Dolly ORR Work Phone: [facility] Start: 06-23-2024 End: 06-23-2024 Bamboo flowsheet Dolly ORR Work Phone: [facility] Start: 06-23-2024 End: 06-23-2024 Patient encounter procedure Dolly ORR Work Phone: [facility] Comment on above: Pre-op [...] Facility: [facility] Start: 04-21-2024 End: 04-21-2024 ambulatory [facility] Work Phone: Start: 04-21-2024 End: 04-21-2024 Patient encounter procedure [facility] Work Phone: Start: 04-15-2024 End: 04-15-2024 [...] 03-20-2024 End: 03-20-2024 ambulatory Salazar Talal Sarmini Facility:[facility] Start: 03-20-2024 End: 03-20-2024 Patient encounter procedure Salazar Bradenal Sarmini [facility] Start: 03-18-2024 End: 03-18-2024 Office outpatient visit 15 minutes Jr. Larissa Guerrero DO Work Phone: [facility] Comment on above: Left knee pain, unsp ecified chronicity (Primary Dx); Internal derangement of left knee; Arthritis of left knee Start: 03-18-2024 End: 03-18-2024 ambulatory LARISSA CABRERA Not Available Start: 03-02-2024 End: 03-02-2024 Telephone encounter Adali Giordano NON DESTRUCTIVE EVALUATION MANAGER Work Phone: [facility] Comment on above: MRI Start: 02-17-2024 End: 02-17-2024 Bamboo flowsheet Adali Pompa Apling NON DESTRUCTIVE EVALUATION MANAGER Work Phone: [facility] Start: 02-17-2024 End: 02-17-2024 Bamboo flowsheet Adali Pompa Apling NON DESTRUCTIVE EVALUATION MANAGER Work Phone: [facility] Start: 02-17-2024 End: 02-17-2024 Office outpatient visit 15 minutes Adali Pompa Apling NON DESTRUCTIVE EVALUATION MANAGER Work Phone: [facility] Comment on above: S/P left knee arthro scopy (Primary Dx); Left knee pain, unspecified chronicity; Arthritis of left knee; Internal derangement of left knee Start: 02-17-2024 End: 02-17-2024 ambulatory ADALI B APLING Not Available Start: 01-30-2024 End: 01-30-2024 ambulatory Salazar Talal Sarmini Facility:[facility] Start: 01-30-2024 End: 01-30-2024 Patient encounter procedure Martin Felicianoal Deepti [facility] Start: 01-20-2024 End: 01-20-2024 Bamboo flowsheet Adali Giordano NON DESTRUCTIVE EVALUATION MANAGER Work Phone: [facility] Start: 01-20-2024 End: 01-20-2024 Bamboo flowsheet Adali Giordano NON DESTRUCTIVE EVALUATION MANAGER Work Phone: [facility] Start: 01-20-2024 End: 01-20-2024 Office outpatient visit 25 minutes Adali Giordano NON DESTRUCTIVE EVALUATION MANAGER Work Phone: [facility] Comment on above: S/P left knee arthro scopy (Primary Dx); Left knee pain, unspecified chronicity; Arthritis of left knee Start: 01-20-2024 End: 01-20-2024 ambulatory ADALI GIORDANO Not Available Start: 01-15-2024 End: 01-15-2024 Patient encounter procedure Martin Tatum [facility] Start: 12-31-2023 End: 12-31-2023 Bamboo flowsheet Abhi Ramires NON DESTRUCTIVE EVALUATION MANAGER Work Phone: [facility] Start: 12-31-2023 End: 12-31-2023 Bamboo flowsheet Abhi Ramires NON DESTRUCTIVE EVALUATION MANAGER Work Phone: [facility] Start: 12-31-2023 End: 12-31-2023 Postop follow up visit related to original px Abhi Ramires NON DESTRUCTIVE EVALUATION MANAGER Work Phone: [facility] Comment on above: S/P left knee arthro scopy (Primary Dx); Left knee pain, unspecified chronicity Start: 12-31-2023 End: 12-31-2023 ambulatory ABHI RAMIRES Not Available Start: 12-06-2023 End: 12-06-2023 ambulatory Salazar Talal Sarmini Facility:[facility] Start: 12-06-2023 End: 12-06-2023 Lab Drop off Salazar Talal Levymini [facility] Start: 12-04-2023 End: 12-04-2023 ambulatory Salazar Talal Sarmini Facility:[facility] Start: 12-04-2023 End: 12-04-2023 Patient encounter procedure Salazar Talal Sarmini [facility] Start: 12-04-2023 ambulatory Salazar Talal Levymini Facility:[facility] Start: 12-04-2023 End: 12-04-2023 Patient encounter procedure Salazar Talal Sarmini [facility] Start: 11-26-2023 ambulatory Salazar Levymini Facili ty:[facility] Start: 11-13-2023 End: 11-13-2023 Bamboo flowsheet Adali Giordano NON DESTRUCTIVE EVALUATION MANAGER Work Phone: [facility] Start: 11-13-2023 End: 11-13-2023 Bamboo flowsheet Adali Giordano NON DESTRUCTIVE EVALUATION MANAGER Work Phone: [facility] Start: 11-13-2023 End: 11-13-2023 Postop follow up visit related to original px Adali Giordano NON DESTRUCTIVE EVALUATION MANAGER Work Phone: [facility] Comment on above: Arthritis of left kn ee (Primary Dx); S/P left knee arthroscopy Start: 11-13-2023 End: 11-13-2023 ambulatory ADALI GIORDANO Not Available Start: 10-16-2023 End: 10-16-2023 Bamboo flowsheet Adali Giordano NON DESTRUCTIVE EVALUATION MANAGER Work Phone: [facility] Start: 10-16-2023 End: 10-16-2023 Bamboo flowsheet Adali Giordano NON DESTRUCTIVE EVALUATION MANAGER Work Phone: [facility] Start: 10-16-2023 End: 10-16-2023 Postop follow up visit related to original px Adali Giordano NON DESTRUCTIVE EVALUATION MANAGER Work Phone: [facility] Comment on above: Arthritis of left kn ee (Primary Dx); S/P left knee arthroscopy Start: 10-16-2023 End: 10-16-2023 ambulatory ADALI GIORDANO Not Available Start: 10-08-2023 End: 10-08-2023 Refill Abhi Ramires NON DESTRUCTIVE EVALUATION MANAGER Work Phone: [facility] Comment on above: Post-op pain (Primar y Dx) Start: 09-10-2023 End: 09-10-2023 ambulatory DANIELLE Fish JOHN Not Available Start: 09-09-2023 Patient encounter procedure [facility] Start: 08-26-2023 End: 08-26-2023 ambulatory ADALI Pompa ANNETTE Not Available Start: 03-07-2023 End: 03-07-2023 ambulatory Laurita Morales Other [facility] Other Start: 03-07-2023 Office outpatient vi sit 15 minutes Laurita Morales [facility] Start: 09-20-2022 End: 09-20-2022 ambulatory Laurita Morales Other [facility] [employer] Other Start: 09-20-2022 Telephone encounter Laurita Morales [facility] Start: 09-04-2022 End: 09-04-2022 ambulatory Laurita Morales Other [facility] Other Start: 09-04-2022 Patient encounter procedure Laurita Morales [facility] Start: 04-19-[address] LAURITA MORALES Facil ity:[facility] Start: 03-01-2022 End: 03-01-2022 ambulatory Laurita Morales Other [facility] [employer] Other Start: 03-01-2022 Office outpatient vi sit 15 minutes Laurita Morales [facility] Start: 01-18-2022 End: 01-19-[address] LAURITA MORALES Facility:[facility] Start: 11-21-2021 End: 11-22-2021 ambulatory CAPRI FULLER Facility:[facility] Start: 11-08-2021 End: 11-08-2021 Patient encounter procedure Capri FULLER [facility] Start: 10-19-2021 End: 10-20-[address] LAURITA MORALES Facility:[facility] Start: 09-27-2021 End: 09-28-[address] LAURITA MORALES Facility:[facility] Start: 09-26-2021 End: 09-26-[address] LAURITA MORALES Facility:[facility] Start: 09-25-2021 Encounter for preprocedural laboratory examination DR RADHA IRAHETA [facility] Start: 09-22-2021 End: 09-23-[address] LAURITA MORALES Facility:[facility] Start: 09-22-2021 End: 09-23-2021 Encounter for preprocedural laboratory examination DR LAURITA MORALES Facility:[facility] Start: 09-11-[address] LAURITA MORALES Facil ity:[facility] Start: 09-06-2021 End: 09-07-2021 ambulatory ROBERTO MCNALLY Facility:[facility] Start: 08-30-2021 Adult health examination Malia Morales Other [facility] [employer] Other Start: 06-22-2021 End: 06-23-2021 ambulatory CAPRI FULLER Facility:[facility] Start: 05-31-2021 End: 05-31-2021 ambulatory Luis Gutierrez Facility:[facility] Start: 05-26-2021 End: 05-26-2021 ambulatory Laurita Morales Facility:[facility] Start: 05-26-2021 End: 05-26-2021 Patient encounter procedure MD Cy Sears Work Phone: [facility] Start: 05-22-2021 End: 05-23-[address] LAURITA MORALES Facility:[facility] Start: 05-10-2021 End: 05-10-2021 Patient encounter procedure Farooq SALAM [facility] Start: 05-04-2021 End: 05-04-2021 ambulatory Cy Sears Facility:[facility] Start: 05-04-2021 End: 05-04-2021 Patient encounter procedure MD Cy Sears Work Phone: [facility] [place] Start: 04-20-2021 End: 04-21-2021 ambulatory CAPRI FULLER [...] Work Phone: Start: 05-31-2021 Antibody screen Luis Gtuierrez Comment on above: Order Comment: Transfuse now? N Result Comment: PERF ORMED BY: [facility] [address] [place] [address] PATHOLOGIST TEACHER [employer] TRICIA OSHEA M.D. Start: 02-16-2020 Colonoscopy Abhi Ramires NP Work Phone: Start: 02-16-2020 Colonoscopy w/biopsy single/multiple Capri FULLER Colonoscopy Capri FULLER History of appendectomy Muha mmad Levymini History of thyroidectomy [facility] ammad Levymini Screening for malign ant neoplasm of breast Laurita Morales Other Plan of Treatment Date Care Activity Detail Author Start: 01-14-2034 Screening for malignant neoplasm of colon [facility] Start: 02-15-2030 Screening for malignant neoplasm of colon [facility] Start: 10-12-2024 Influenza vaccination Influenza Vacc ine (#1) [facility] Start: 09-30-2024 Patient referral [facility] Work Phone: Start: 08-20-2024 End: 08-20-2024 Patient encounter procedure [facility] Comment on above: S/P right knee arthr oscopy (Primary Dx) Start: 07-22-2024 End: 07-22-2024 Patient encounter procedure [facility] Comment on above: S/P right knee arthr oscopy (Primary Dx) Start: 07-21-2024 End: 07-21-2024 Patient encounter procedure 07/21/2024 11:15 AM EDT Office Visit [facility] [address] [place] [address] Dolly Veras PA [address] [place] [address] [facility] Start: 06-30-2024 End: 06-30-2024 ambulatory 06/30/2024 9:30 AM EDT Evaluation [facility] [address] [place] [id number] Sofia Bull, PT [facility] Start: 06-23-2024 End: 06-23-2025 Basic metabolic 1998 panel - Serum or Plasma Basic metabolic panel Lab Routine Pre-op examination Expected: 06/23/2024 (Approximate), Expires: 06/23/2025 [facility] Work Phone: Comment on above: Expected: 06/23/2024 (Approximate), Expires: 06/23/2025 Start: 06-23-2024 End: 06-23-2024 Patient encounter procedure [facility] Comment on above: Pre-op examination ( Primary Dx) Start: 05-13-2024 End: 05-13-2024 Patient encounter procedure [facility] Comment on above: Arrived Start: 04-15-2024 End: 04-15-2024 Patient encounter procedure 04/15/2024 2:15 PM EST Office Visit [facility] [address] [place] [address] Jr. Larissa Guerrero DO [address] [place] [address] Acute pain of left knee [facility] [...] ORTHOPAEDICS [address] [place] [id number] Adali Giordano NP [address] [place] [address] S/P left knee arthroscopy (Primary Dx); Left [...] [facility] [address] [place] [id number] Abhi Ramires, NON DESTRUCTIVE EVALUATION MANAGER [address] [place] [address] Arrived [facility] Comment on above: Arrived Start: 11-13-2023 End: 11-13-2023 Patient encounter procedure [facility] Comment on above: Arthritis of left kn ee (Primary Dx); S/P left knee arthroscopy Start: 10-16-2023 End: 10-16-2023 Patient encounter procedure [facility] Comment on above: Arrived Start: 10-13-2023 Influenza vaccination Influenza Vacc ine (#1) [facility] Start: 10-09-2023 End: 10-09-2023 Patient encounter procedure 10/09/2023 11:30 AM EDT Procedure Visit [facility] Danielle Curran DO [address] [place] [address] [facility] Start: 1950 Screening for malignant neoplasm of colon [facility] Patient referral [facility] Work Phone: XR Lumbar spine Views [facility] Immunizations Immunization Date Immunization Notes Care Provider Fa anibal 11-13-2023 influenza virus vaccine, unspecified formulation Martin Tatum [facility] 12-03-2022 ABRYSVO - Respirator y syncytial virus (RSV), vaccine, bivalent, protein subunit RSV prefusion F, diluent reconstituted, 0.5 mL, PF Abhi Katie NON DESTRUCTIVE EVALUATION MANAGER Work Phone: [facility] 12-03-2022 SARS-COV-2 (COVID-19 ) vaccine, mRNA, spike protein, LNP, PF, 50 mcg/0.5 mL Abhi Ramires NON DESTRUCTIVE EVALUATION MANAGER Work Phone: [facility] 11-07-2022 Influenza, Seasonal, Quadrivalent, Adjuvanted Abhi Katie NON DESTRUCTIVE EVALUATION MANAGER Work Phone: [facility] 11-07-2022 influenza virus vaccine, unspecified formulation Abhi Katie NON DESTRUCTIVE EVALUATION MANAGER Work Phone: [facility] 10-01-2022 zoster vaccine recombinant Abhi Katie NON DESTRUCTIVE EVALUATION MANAGER Work Phone: [facility] 07-18-2022 zoster vaccine recombinant Abhi Ramires NON DESTRUCTIVE EVALUATION MANAGER Work Phone: [facility] 11-21-2021 influenza virus vaccine, unspecified formulation Salazar Levylucero [facility] 11-21-2021 Seasonal trivalent influenza vaccine, adjuvanted, preservative free Abhi Katie NON DESTRUCTIVE EVALUATION MANAGER Work Phone: [facility] 10-27-2021 SARS-CoV-2 (COVID-19 ) [id number] Martin Tatum [facility] Comment on above: Result Comment: 2023: [id number] 12-09-2020 COVID-19 mRNA-1273 (Moderna) MD Cy Sears Work Phone: [facility] Comment on above: Result Comment: 2023: [id number] 11-15-2020 influenza virus vaccine, split virus (incl. purified surface antigen) Laurita Morales Other [employer] Other 11-15-2020 influenza virus vaccine, unspecified formulation Abhi Ramires NON DESTRUCTIVE EVALUATION MANAGER Work Phone: [facility] 11-11-2020 influenza virus vaccine, unspecified formulation Capri FULLER [facility] 04-26-2020 COVID-19 mRNA-1273 (Moderna) MD Cy Sears Work Phone: [facility] 03-31-2020 SARS-CoV-2 (COVID-19 ) mRNA-1273 vaccine Salazar Sarmini [facility] 03-23-2020 COVID-19 mRNA-1273 (Moderna) MD Cy Sears Work Phone: [facility] 11-20-2019 influenza virus vaccine, split virus (incl. purified surface antigen) Laurita Morales Other [employer] Other 11-20-2019 influenza virus vaccine, unspecified formulation Abhi Ramires NON DESTRUCTIVE EVALUATION MANAGER Work Phone: [facility] 07-09-2018 zoster vaccine, live Abhi O sonalen NON DESTRUCTIVE EVALUATION MANAGER Work Phone: [facility] 11-20-2017 pneumococcal polysaccharide vaccine, 23 valent Abhi Katie NON DESTRUCTIVE EVALUATION MANAGER Work Phone: [facility] 11-14-2017 influenza virus vaccine, unspecified formulation Salazar Sarmini [facility] 11-14-2017 pneumococcal polysaccharide vaccine, 23 valent Abhi Katie NON DESTRUCTIVE EVALUATION MANAGER Work Phone: [facility] 11-14-2017 Seasonal trivalent influenza vaccine, adjuvanted, preservative free Abhi Ramires NON DESTRUCTIVE EVALUATION MANAGER Work Phone: [facility] 10-24-2016 influenza virus vaccine, split virus (incl. purified surface antigen) Laurita Morales Other [employer] Other 10-24-2016 influenza virus vaccine, unspecified formulation Salazar Sarmini [facility] 10-24-2016 influenza, high dose seasonal, preservative-free Abhi Ramires NON DESTRUCTIVE EVALUATION MANAGER Work Phone: [facility] 10-24-2016 pneumococcal conjuga te vaccine, 13 valent Laurita Morales Other [facility] [employer] Other 11-08-2015 influenza virus vaccine, unspecified formulation Salazar Sarmini [facility] 11-08-2015 Seasonal trivalent influenza vaccine, adjuvanted, preservative free Abhi Ramires NP Work Phone: [facility] 11-16-2014 influenza virus vaccine, unspecified formulation Salazar Sarmini [facility] 11-16-2014 influenza, seasonal, injectable, preservative free Abhi Ramires NP Work Phone: [facility] 08-31-2014 tetanus and diphther ia toxoids, adsorbed, preservative free, for adult use (5 Lf of tetanus toxoid and 2 Lf of diphtheria toxoid) Abhi Ramires NP Work Phone: [facility] 08-31-2014 tetanus toxoid, reduced diphtheria toxoid, and acellular pertussis vaccine, adsorbed Laurita Morales Other [facility] [employer] Other 11-30-2013 pneumococcal polysaccharide vaccine, 23 valent Laurita Morales Other [facility] [employer] Other 03-24-2013 zoster vaccine, live Abhi daly NP Work Phone: [facility] 11-11-2012 influenza virus vaccine, unspecified formulation Salazar Levymini [facility] 11-11-2012 influenza, seasonal, injectable Abhi Ramires NP Work Phone: [facility] 01-29-2003 hepatitis B vaccine, adult dosage Abhi Ramires NP Work Phone: [facility] 08-10-2002 hepatitis B vaccine, adult dosage Abhi Ramires NP Work Phone: [facility] 07-08-2002 hepatitis B vaccine, adult dosage Abhi Ramires NP Work Phone: [facility] 07-08-2002 TD(adult) unspecifie d formulation; Translations: [Td(adult) unspecified formulation] Abhi Ramires NON DESTRUCTIVE EVALUATION MANAGER Work Phone: [facility] NEGATED: Highlighted row has not occurred!11-08-2021 influenza virus vaccine, unspecified formulation Capri FULLER [facility] Payers Date Payer Category Payer Self-pay [id number] 2021 Private Health Insurance [id number] 2021 Private Health Insurance CLI [id number] 2013 Medicare [id number] 1959 Medicare [id number] 1959 Unknown [id number] 1948 Unknown [id number] 2.16.84 0.1.515854.3.579.2.593 1948 Unknown [id number] 2.16.84 0.1.057284.3.579.2.593 1948 Unknown [id number] 2.16.84 0.1.056926.3.579.2.593 1948 Unknown [id number] 2.16.84 0.1.818691.3.579.2.593 1948 Unknown [id number] 2.16.84 0.1.128481.3.579.2.593 1948 Unknown [id number] 2.16.84 0.1.244438.3.579.2.593 1948 Unknown [id number] 2.16.84 0.1.496726.3.579.2.593 1948 Unknown [id number] 2.16.84 0.1.366498.3.579.2.593 1948 Unknown [id number] 2.16.84 0.1.477418.3.579.2.593 1948 Unknown [id number] 2.16.84 0.1.925666.3.579.2.593 1948 Unknown [id number] 2.16.84 0.1.234061.3.579.2.593 1948 Unknown [id number] 2.16.84 0.1.414775.3.579.2.593 1948 Unknown [id number] 2.16.84 0.1.450880.3.579.2.593 1948 Unknown [id number] 2.16.84 0.1.751166.3.579.2.593 1948 Unknown [id number] 2.16.84 0.1.849443.3.579.2.593 1948 Unknown [id number] 2.16.84 0.1.536353.3.579.2.593 1948 Unknown [id number] 2.16.84 0.1.644413.3.579.2.593 1948 Unknown [id number] 2.16.8 40.1.573774.3.579.2.727 1948 Unknown [id number] 2.16.8 40.1.131130.3.579.2.727 1948 Unknown [id number] 2.16.8 40.1.840860.3.579.2.727 1948 Unknown [id number] 2.16.8 40.1.958345.3.579.2.727 1948 Unknown [id number] 2.16.8 40.1.370926.3.579.2.1259 1948 Unknown [id number] 2.16.8 40.1.259874.3.579.2.1259 1948 Unknown [id number] 2.16.84 0.1.354904.3.579.2.125 1948 Unknown [id number] 2.16.84 0.1.091589.3.579.2.1259 1948 Unknown [id number] 2.16.84 0.1.710966.3.579.2.9 1948 Unknown [id number] 2.16.84 0.1.580197.3.579.2.1259 1948 Unknown [id number] 2.16.84 0.1.588927.3.579.2.1258 1948 Unknown [id number] 2.16.84 0.1.062001.3.579.2.1259 1948 Unknown [id number] 2.16.84 0.1.002964.3.579.2.1258 1948 Unknown [id number] 2.16.84 0.1.978967.3.579.2.1259 1948 Unknown [id number] 2.16.84 0.1.659875.3.579.2.125 1948 Unknown [id number] 2.16.84 0.1.016212.3.579.2.1259 1948 Unknown [id number] 2.16.84 0.1.905954.3.579.2.1258 1948 Unknown [id number] 2.16.84 0.1.682866.3.579.2.1259 1948 Unknown [id number] 2.16.84 0.1.140203.3.579.2.1258 1948 Unknown [id number] 2.16.84 0.1.303691.3.579.2.1259 1948 Unknown [id number] 2.16. 840.1.815339.3.579.2.196 1948 Unknown [id number] 2.16. 840.1.142315.3.579.2.196 Medicare [id number] Unknown [id number] 2.16.8 40.1.168538.3.579.2.531 Unknown [id number] 2.16.8 40.1.263307.3.579.2.531 Unknown [id number] 2.16.8 40.1.742957.3.579.2.531 Social History Date Type Detail Facility Tobacco smoking stat [facility] Unknown if ever smoked [facility] Work Phone: Start: 1950 Sex Assigned At Female [facility] Start: 05-10-2021 End: 03-20-2024 Tobacco smoking status Heavy tobacco smoker (finding) [facility] Start: 09-10-2023 End: 07-22-[address] Female [facility] Start: 05-26-2021 [facility] Start: 08-26-2023 End: 09-30-2024 Tobacco smoking status SCIS Smokes tobacco daily [facility] History of [...] [facility] Tobacco smoking status Never [facility] Start: 03-12-2023 Tobacco smoking stat us [facility] Ex-smoker (finding) [facility] Start: 04-21-2024 Sex Female (finding) [facility] Start: 06-23-2024 Alcohol Comment Occationally [facility] Functional Status Date Assessment Result Facility 03-20-2024 Functional Status N/A [facility] 01-30-2024 Functional Status N/A [facility] 01-15-2024 Functional Status N/A [facility] 12-04-2023 Functional Status N/A [facility] 11-08-2021 Functional Status N/A [facility] Clinical Notes 01-24-2021 [...] year, seeing Dr. Marino and podiatry in [place] before being diagnosed with a pinched nerve [...] requiring urgent evaluation. Visit was preformed using [employer] Co-master pilot speech recognition. documented in this encounter [facility] 07-22-2024 History of Present illness Narrative Images [...] requiring urgent evaluation. Visit was preformed using [employer]-master pilot speech recognition. documented in this encounter [facility] 07-22-2024 Instructions DOMINGA Monroy - 07/22/2024 11:15 [...] than 10 mins documented in this encounter [facility] 07-03-2024 Telephone encounter Note Post op pain rx. PDMP reviewed [facility] 07-03-2024 Miscellaneous Notes Post op pain rx. PDMP reviewed documented in this encounter [address]13-2025 History of Present illness Narrative Images [...] COLONOSCOPY 01/15/24 KNEE ARTHROSCOPY W/ DEBRIDEMENT Left SOLVANG OTHER SURGICAL HISTORY Right TAMICA CORONA PUT [...] Z01.818 Basic metabolic panel Basic metabolic panel [facility] Devices mis Ambulatory referral to Physical Therapy [...] and proposed surgery scheduled. WALKER SENT TO [facility] [place] [facility] WORK SENT TO [facility] PRE AUTH MEDICARE APPROVED Follow up in about 4 weeks (around 07/21/2024) for Post-Op July 22 @ 11:15 in the [place] location with Dolly Veras. documented in this encounter [facility] 05-13-2024 History of Present illness Narrative Images from the original note were not included. Jennifer appreciatedHISTORY OF PRESENT ILLNESS: EST PT Alexandra Cervantes is an 74 y.o. @ female. (EST PT) - RECHECK (R) KNEE ; S/P MDP 04/15/24 ; S/P MRI @[facility] 04/24/24 : ADMITS B/L KNEE PAIN - R>L XRAY B/L KNEE 08/26/23 IN EPIC MRI @[facility] 04/24/24 MDP 04/15/24 NO CORTISONE INJ NO PT PAIN MGMT @[facility] (BACK) (R) KNEE: S/P MDP - WITH [...] of medial meniscus noted on MRI from [facility]. Questions answered in laymen terms at the bedside. The diagnosis, home exercise plan and any ongoing restrictions/ recommendations reviewed. If unable to be reached in office, I recommend evaluation at nearest Emergency Room if any symptoms worsened or new symptoms develop for requiring urgent evaluation. documented in this encounter [facility] 03-18-2024 History of Present illness Narrative Images from the original note were not included. HISTORY OF PRESENT ILLNESS: EST PT Alexandra Cervantes is an 74 y.o. @ female. (EST PT) (LAST APPT WITH [facility]) - RECHECK (L) KNEE S/P MRI @[facility] (02/25/24) ; S/P (L) KNEE SCOPE (DR. CURRAN) (10/09/23) (5 MONTHS, 1 WK, 1 DAY) XRAY B/L KNEE 08/26/23 IN EPIC XRAY (L) KNEE (02/09/23) IN CHANGE MRI @[facility] 02/25/24 MDP 12/31/23 (50% IMPROVEMENT) CORTISONE INJ (01/20/24) (70-80% IMPROVEMENT) NO PT PAIN MANAGEMENT @ [facility] (BACK) STATES INJECTION 01/20/24 ONLY LASTED 2-3 [...] requiring urgent evaluation. documented in this encounter [facility] 03-02-2024 Miscellaneous Notes Patient called and left requesting a call for here MRI results. documented in this encounter [facility] 03-02-2024 Telephone encounter Note Patient called and left requesting a call for here MRI results. [facility] 02-17-2024 History of Present illness Narrative HISTORY [...] [facility] documented in this encounter [facility] 01-30-2024 Evaluation + Plan note Future Scheduled TestsCalprotectin, Fecal 01/30/24Calprotectin, Fecal 03/17/24Clostridium Difficile PCR 03/17/24Quantiferon-TB Plus (Client Incubated) 03/17/24Enteric Panel by PCR 03/17/24CBC w/ Auto Diff 03/20/24CBC w/ Auto Diff 03/17/24Comprehensive Metabolic Panel 03/20/24Comprehensive Metabolic Panel 03/17/24C-Reactive Protein 03/20/24C-Reactive Protein 03/17/24Hepatitis B Surface Antibody 03/17/24Hepatitis B Surface Antigen 03/17/24 [facility] 01-20-2024 History of Present illness [...] she understands this. documented in this encounter [facility] 01-15-2024 Hospital Discharge instructions Patient Education 01/15/2024 13:05:31 Gastritis, Adult, Qgqj-ct-Zsdq Gastritis, Adult Gastritis is irritation and swelling [...] Follow these instructions at home: Medicines Take aeoz-kuk-siiwizs and prescription medicines only as told by [...] provider. Document Revised: 06/03/2021 Document Reviewed: 06/03/2021 [employer] Patient Education 2023 [employer]. 01/15/2024 13:05:27 Endoscopy, Care After Procedure [facility] Endoscopy Care After Procedure Please [...] blood. Document Released: 09/11/2004 Document Re-Released: 07/22/2006 [facility] Patient Information 2010 [employer]. 01/15/2024 13:05:22 Hemorrhoids, Tsln-da-Ywqo Hemorrhoids Hemorrhoids are swollen veins that may [...] Follow these instructions at home: Medicines Take njye-lcy-vcecssn and prescription medicines only as told by [...] provider. Document Revised: 10/10/2022 Document Reviewed: 10/10/2022 [employer] Patient Education 2023 [employer]. 01/15/2024 13:05:13 Ulcerative Colitis, Adult Ulcerative Colitis, [...] instructions at home: Medicines and vitamins Take wbcs-gzr-ggfmhft and prescription medicines only as told by [...] and water are not available, use hand climbing guide. Stay up to date on your vaccinations, [...] information about ulcerative colitis at the National [place] of Diabetes and Digestive and Kidney Diseases [...] provider. Document Revised: 10/04/2020 Document Reviewed: 10/04/2020 [employer] Patient Education 2023 [employer]. 01/15/2024 13:05:09 Colonoscopy, Care After Surgery Salam [...] severe or gets worse throughout the day. [facility] 01-15-2024 Evaluation + Plan note Extrac javier from: Title:ANES Post-operative Note---General Author: Danielle Garcia MD. Date:01/15/24 Plan Transfer/Discharge: Transfer/Discharge Discharge when meets criteria ( To home ). Extracted from: Title:ANES Pre-operative Note 2022 Author:Danielle Ha Date:01/15/24 Plan [place] [employer] Anesthesiologists (ASA) physical status classification: Class II. Anesthetic Preoperative Plan: Anesthesia General. Extracted from: Title:1Preop H&P Author:Martin Tatum MD Date:01/15/24 Impression and Plan Impression: Ulcerative colitis, chronic diarrhea Plan: -EGD and Colonoscopy Future Appointments Appointment Date:01/30/2024 01:45:00 PM Scheduled Provider:Martin Tatum MD Location:[facility] Appointment Type:[facility] Follow Up Diagnostic Tests Pending * Enteric Panel by PCR 01/15/24 * Clostridium Difficile PCR 01/15/24 * Hep B Core Ab, Tot 01/15/24 * Hepatitis B Surface Antibody 01/15/24 * Hepatitis B Surface Antigen 01/15/24 * Quantiferon-TB Plus (Client Incubated) 01/15/24 [facility] [id number] History of Present illness Narrative* Abhi Ramires, MCAI - 12/31/2023 10:45 AM EST Images from [...] develop for requiring urgent evaluation. Abhi Ramires APRN-GROUND OPERATIONS CREW MEMBER [id number] History of Present illness Narrative* Adali Giordano [...] do activities as tolerated. documented in this [facility]08-28-2024 History of Present illness Narrative* Adali Giordano [...] as tolerated, f/U prn documented in this [facility]08-28-2024 History of Present illness Narrative* Jr. Larissa [...] for requiring urgent evaluation. documented in this [facility]08-27-2024 Telephone encounter Note* Telephone Encounter - Abhi Ramires NP - 10/08/2023 3:02 PM EDT Post op pain rx. PDMP reviewed [id number] Miscellaneous Notes* Telephone Encounter - Abhi Ramires NP - 10/08/2023 3:02 PM EDT Post op pain rx. PDMP reviewed documented in this [facility]01-25-2024 Evaluation note* Encounter Date Diagnosis Assessment [...] continue to monitor through routine blood work [facility] 08-10-2023 Evaluation note* Encounter Date Diagnosis Assessment Notes Treatment Notes Treatment Clinical Notes Sep, Right foot pain (ICD-10 - M79.671) [facility] 07-25-2023 Evaluation note* Encounter Date Diagnosis [...] - E03.9) Chronic problem due for labs. [facility] Other 01-19-2023 Evaluation note* Encounter Date Diagnosis [...] - E78.5) Due for labs in summer. [facility] Other [id number] NoteCONSULTATION PROCEDURE DATE: 01/18/2022 PREOPERATIVE DIAGNOSIS: Left [...] will be followed up in the office.[id number] NoteCONSULTATION CONSULTATION DATE: 01/18/2022 HISTORY OF PRESENT [...] in three months' time, unless otherwise indicated.[facility] [id number] Evaluation + Plan note Diagnostic Tests Pending * CBC w/ Auto Diff 11/08/21 * Comprehensive Metabolic Panel 11/08/21 [facility] 09-08-2022 NoteCONSULTATION PROCEDURE DATE: [...] will be followed up in the office.[facility] 10-19-2021 NoteCONSULTATION CONSULTATION DATE: 10/19/2021 This is [...] in three months' time unless otherwise indicated.[facility] [id number] NoteCONSULTATION CONSULTATION DATE: 09/06/2021 HISTORY OF PRESENT [...] 8/10. She has been following up with [facility] and had a benign fibroid tumor [...] procedure, and patient agrees to move forward.[facility] [id number] NoteCONSULTATION PAIN MANAGEMENT CONSULTATION HISTORY: This is [...] of care and will call when needed. [facility] Signed and Approved by: ROBERTO MCNALLY . 04/27/2021 12:41:00[facility]12-14-2021 Hospital Discharge instructions Follow Up Care 01/24/2021 10:04:31 With:JANINA ALARCON, LENORE Farooq, [facility] Address: [facility] [address] [place], [place] [address]dict [place] [address]- When:6 months [facility] Evaluation + Plan note Future Appointments Appointment Date:11/08/2021 10:15:00 AM Scheduled Provider:Capri FULLER MD Location[facility]ive [facility] Appointment Type:BAD Follow Up Future Scheduled Tests Laboratory* CBC w/ Indices 07/25/20 * Comprehensive Metabolic Panel 07/25/20 [facility] evaluation + Plan note Future Appointments Appointment Date:01/15/2024 12:00:00 PM Scheduled Provider: Location:[facility] Appointment Type:Surgery FT Appointment Date:01/30/2024 01:45:00 PM Scheduled Provider:Martin Tatum MD Location:[facility] Appointment Type:BAD Follow Up Future Scheduled Tests Laboratory* O & P Exam, Routine 12/04/23 * Clostridium Difficile PCR 12/04/23 * Enteric Panel by PCR 12/04/23 [facility] evaluation + Plan note Future Appointments Appointment Date:01/15/2024 12:00:00 PM Scheduled Provider: Location:[facility] Appointment Type:Surgery FT Appointment Date:01/30/2024 01:45:00 PM Scheduled Provider:Martin Tatum MD Location:[facility] Appointment Type:[facility] Follow Up Diagnostic Tests Pending * Celiac Disease Comprehensive 12/04/23 Future Scheduled Tests Laboratory* O & P Exam, Routine 12/04/23 * Clostridium Difficile PCR 12/04/23 * Enteric Panel by PCR 12/04/23 [facility] evaluation + Plan note Future Appointments Appointment Date:01/15/2024 12:00:00 PM Scheduled Provider: Location:[facility] Appointment Type:Surgery FT Appointment Date:01/30/2024 01:45:00 PM Scheduled Provider:Martin Tatum MD Location:[facility] Appointment Type:BAD Follow Up Diagnostic Tests Pending * O & P Exam, Routine 12/06/23 [facility] evaluation + Plan note Future Appointments Appointment Date:04/29/2024 09:15:00 AM Scheduled Provider:Martin Tatum MD Location:[facility] Appointment Type:[facility] Follow Up Future Scheduled Tests Laboratory* Calprotectin, Fecal 01/30/24 [facility] Evaluation noteNo assessment information available [facility] Work Phone: Evaluation note* Diagnosis Arthritis [...] pancoli tis without complications acute April 8:49am [facility] Work Phone: Evaluation note* Diagnosis Acute [...] knee arthroscopy- Primary documented in this encounter [facility] 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 Hospitalization History See past surgical hx [facility] Other Hospital course Narrative No data available for this section [facility] Hospital Discharge instructions No data available for this section [facility] Hospital Discharge instructionsAmbulatory Orders* Referral to Neurology Time Frame: 09/30/24, Location: None Selected [facility] Work Phone: Progress note No data available for this section [facility] Reason for visit Narrative* Consultation (Routine) - Authorized Specialty Diagnoses / Procedures Referred By Rosi wilson Referred To Contact Physical Therapy Diagnoses Pre-op examination Procedures [place] OFFICE/OUTPATIENT [facility] MDM 60 MINUTES Dolly Veras PA [address] [address] Phone: tel: fax: Sofia Bull PT Referral ID Status Reason Start Date Expiration Date Visits Requested Visits Authorized [id number] Authorized Consult and Treat 06/23/2024 12/20/2024 10 10 [facility] 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 Maker Relationship Specialty Start Date End Date Laurita Morales MD [address] [place] [phone] PCP - General Family Medicine 08/26/23 Plastic Tool Maker Relationship Specialty [place] [address] [place] [phone] PCP - General Family Medicine 08/26/23 Plastic Tool Maker Relationship Specialty Start [place] [address] [place] [address] [phone] PCP - General Family Medicine 08/26/23 Plastic Tool Maker Relationship Specialty Start Date End Date Laurita Morales MD [address] [facility] [place] [address] PCP - General Family Medicine 08/26/23 Plastic Tool Maker Relationship Specialty Start Date End Date Laurita Morales MD [address] [facility] [place] [address] PCP - General Family Medicine 08/26/23 Plastic Tool Maker Relationship Specialty Start Date End Date Laurita Morales MD [address] [facility] [place] [address] PCP - General Family Medicine 08/26/23 Plastic Tool Maker Relationship Specialty Start Date End Date Laurita Morales MD [address] [facility] [place] [address] PCP - General Family Medicine 08/26/23 Plastic Tool Maker Relationship Specialty Start Date End Date Laurita Morales MD [address] [facility] [place] [address] PCP - General Family Medicine 08/26/23 Plastic Tool Maker Relationship Specialty Start Date End Date Laurita Morales MD [address] [facility] [place] [address] PCP - General Family Medicine 08/26/23 Plastic Tool Maker Relationship Specialty Start Date End Date Laurita Morales MD [address] [facility] [place] [address] PCP - General Family Medicine 08/26/23 Plastic Tool Maker Relationship Specialty Start Date End Date Laurita Morales MD [address] [facility] [place] [address] PCP - General Family Medicine 08/26/23 Plastic Tool Maker Relationship Specialty Start Date End Date Laurita Morales MD [address] [facility] [place] [address] PCP - General Family Medicine 08/26/23 Team Status: Inactive Member Role Status Dates Laurita Morales MD Primary Care Provide r, Attending Provider Active Start: April 21, 2024 End: April 21, 2024 Plastic Tool Maker Relationship Specialty Start Date End Date Laurita Morales MD [address] [facility] [place] [address] PCP - General Family Medicine 08/26/23 Plastic Tool Maker Relationship Specialty Start Date End Date Laurita Morales MD [address] [facility] [place] [address] PCP - General Family Medicine 08/26/23 Plastic Tool Maker Relationship Specialty Start Date End Date Laurita Morales MD PCP - General Family Medicine 08/26/23 Plastic Tool Maker Relationship Specialty Start Date End Date Laurita Morales MD PCP - General Family Medicine 08/26/23 Plastic Tool Maker Relationship Specialty Start Date End Date Laurita Morales MD PCP - General Family Medicine 08/26/23 Plastic Tool Maker Relationship Specialty Start Date End Date Laurita Morales MD PCP - General Family Medicine 08/26/23 Plastic Tool Maker Relationship Specialty Start Date End Date Laurita Morales MD PCP - General Family Medicine 08/26/23 Plastic Tool Maker Relationship Specialty Start Date End Date Laurita Morales MD PCP - General Family Medicine 08/26/23 Plastic Tool Maker Relationship Specialty Start Date End Date Laurita Morales MD [address] [facility] [place] [address] PCP - General Family Medicine 07/16/24 Plastic Tool Maker Relationship Specialty Start Date End Date Laurita Morales MD [address] [place] [address] PCP - General Family Medicine 07/16/24 Plastic Tool Maker Relationship Specialty Start Date End Date Laurita Morales MD [address] [place] [address] PCP - General Family Medicine [...] and content) DATE CREATED AUTHOR 05/23/2021 [facility] DATE CREATED AUTHOR AUTHOR'S ORGANIZ ATION 01/23/2022 [facility] DATE CREATED AUTHOR AUTHOR'S ORGANIZ ATION 03/17/2022 [facility] DATE CREATED AUTHOR AUTHOR'S ORGANIZ ATION 12/03/2023 [facility] DATE CREATED AUTHOR AUTHOR'S ORGANIZ ATION 12/08/2023 [facility] DATE CREATED AUTHOR AUTHOR'S ORGANIZ ATION 12/10/2023 [facility] DATE CREATED AUTHOR AUTHOR'S ORGANIZ ATION 12/12/2023 [facility] DATE CREATED AUTHOR AUTHOR'S ORGANIZ ATION 01/23/2024 [facility] DATE CREATED AUTHOR AUTHOR'S ORGANIZ ATION 01/25/2024 [facility] DATE CREATED AUTHOR AUTHOR'S ORGANIZ ATION 02/03/2024 [facility] DATE CREATED AUTHOR AUTHOR'S ORGANIZ ATION 08/13/2024 [facility] DATE CREATED AUTHOR AUTHOR'S ORGANIZ ATION 08/24/2024 [facility] DATE CREATED AUTHOR AUTHOR'S ORGANIZ ATION 08/28/2024 [facility] REASON FOR VISIT (unrecogniz ed section [...] BE BASED ON THE PRIMARY CLINICAL RECORDS. [facility] [employer] provides no warranty or guarantee of the accuracy or completeness of information in this document.
--- NOTE | 2024-10-19 10:50 | XR_ITS ---
The [address] [address] Patient Name: ALEXANDRA GARDNER MRN: [id number] date: 1950 Sex: F Assigned Patient Location: [facility] Current Patient Location: [facility] Accession/Order Number: [id number] Exam Date: 10/19/2024 10:40 Report Date: 10/19/2024 11:20 At the request of: LAURITA MORALES MD Procedure: XR lumbar spine 6V w bending CLINICAL DATA: Right dorsal foot pain and difficulty ambulating for years. Back pain on the left with radiculopathy. No reported injury. RIGHT FOOT - 3 views COMPARISON: 06/04/2023 AP, lateral and oblique views were obtained. There is no evidence of fracture or dislocation. A tiny bony ossicle is again seen along the medial margin of the first cuneiform. A plantar calcaneal spur is present. There are no significant soft tissue abnormalities. XR/XR foot RT min 3V IMPRESSION: NO ACUTE BONY FINDINGS. LUMBAR SPINE WITH FLEXION AND EXTENSION VIEWS - 6 views COMPARISON: 09/17/2023 plain films and MRI AP, lateral neutral, flexion and extension and oblique views were obtained. There is osteopenia. There is slight dextroscoliotic curvature. No acute compression fractures are visualized. There is approximately 8 mm anterolisthesis of L5 on S1. There is also approximately 7 mm retrolisthesis of L1 on L2. Alignment does not change significantly with flexion or extension. There is disc space narrowing L1-2, L4-5 and the lumbosacral junction with vacuum phenomenon. Endplate spurring and sclerosis are noted. Facet hypertrophy is also seen, greatest at the lumbosacral junction. No obvious pars defects are identified. The SI joints are intact. No paraspinal soft tissue abnormalities are seen. IMPRESSION: OSTEOPENIA, SCOLIOSIS AND DEGENERATIVE CHANGES, SIMILAR TO THE PRIOR. Impression dictated by: Giulia Villarreal M.D. 10/19/2024 11:20 AM Dictation Location: [employer] Electronically authenticated by: [id number] Y Date: 10/19/2024 11:20
== END 2024-10-19 10:12 | disposition home or self-care (01) ==
LOC: RAD 10:12
PROVIDERS: PCP Family Medicine; Visit Provider Family Medicine
DX: M79.671 Pain in right foot (principal); M54.16 Radiculopathy, lumbar region
CPT/HCPCS: 72114; 73630

== ENCOUNTER 2024-10-20 08:30 | Outpatient (OUT) | payer MEDICARE, OTHER, SELFPAY ==
--- OUTSIDE RECORDS SUMMARY | 2024-10-20 08:35 | XMS_ITS | CCD ---
Author Organization [facility] Care Team Providers Care Customer Care Manager Name Role Phone MD Cy Sears Attending Provider [phone] MD Laurita Morales Primary Care Provider [phone] LAURITA MORALES Primary Care Physician DO Luis Gutierrez Attending Provider CARMEN, DR LAURITA Solis Attending Unavailable MORALES, [...] DR LAURITA Solis Attending Unavailable MORALES, DR LAUIRTA Solis Primary Care Unavailable SEEQUIEL, DR RADHA Whitfield Admitting Unavailable ESEQUIEL, DR [...] Unavailable MORALES, DR LAURITA Solis Attending Unavailable SOMERSET, DR LONNY Wiggins Consulting Unavailable MORALES, DR [...] every six hours for pain HYDROcodone-aceta minophen (Benzonia) 5-325 MG tablet Indications: Acute medial meniscus tear of right knee, initial encounter Take 1 tablet by mouth every 6 (six) hours if needed for severe pain for up to 3 days 12 tablet 07/06/2024 07/09/2024 Active Start: 10-08-2023 End: 10-11-2023 take 1 tablet by mouth every six hours for pain HYDROcodone-acetaminophen (Benzonia) 5-325 MG tablet Indications: Post-op pain Take [...] Start: 01-31-2024 take 4 tablets by mo [facility] once daily mesalamine (Lialda) 1.2 g [...] 0 Start Date: 03/20/24 Status: Ordered NuLYTELY Quay oral powder for reconstitution (1 source) Start: 01-28-2020 take 1 dose by mouth once NuLYTELY Quay oral powder for reconstitution See Instructions, 1 [...] 06/23/2024 Discontinued (Therapy completed) polyethylene glycol [id number] [id number] mg / potassium chloride 1480 mg / sodium bicarbonate 5720 mg / sodium chloride 44168 mg powder for oral solution (1 source) Osmotic Laxative Start: 01-28-2020 take 1 dose by mouth once NuLYTELY Quay oral powder for reconstitution See Instructions, 1 [...] day(s), # 540 tab(s), Refills(s) 3, Pharmacy: [facility] [id number], 150, cm, 03/20/24 11:03:00 EST, Height/Length Dosing, 74.6, kg, 03/20/24 11:03:00 EST, Weight Dosing Start Date: 03/20/24 Stop Date: 03/15/25 Status: Ordered Start: 05-26-2021 End: 07-03-2023 take 1 tablet by mouth four times daily Sulfasalazine 500 mg tablet Discontinued 500 MG PO Four times daily May 26, 2021 12:00am July 03, 2023 9:07am Start: 05-10-2021 take 2 tablets by mo [facility] three times daily sulfasalazine 500 mg Tab 1,000 mg = 2 tab(s), Oral, TID, # 180 tab(s), Refills(s) 11, Pharmacy: [facility]/pharmacy #[id number], 150, cm, 05/10/21 11:13:00 EDT, Height/Length Dosing, 71, kg, 05/10/21 11:13:00 EDT, Weight Dosing Start Date: 05/10/21 Status: [facility] sulfaSALAzine (Azulfidine) 500 MG tablet [...] I place a reminder for November. Normal [facility] ALL BASIC METABOLIC PANELon 06-24-2024 Anion gap [Moles/Vol] 8 mmol/L [facility] Calcium [Mass/Vol] 9.4 mg/dL 8.5 - 10. 1 mg/dL [facility] Chloride [Moles/Vol] 103 mmol/L 98 - 10 7 mmol/L [facility] CO2 [Moles/Vol] 30.4 mmol/L 21.0 - 32.0 mmol/L [facility] Creatinine [Mass/Vol] 0.75 mg/dL 0.55 - 1.02 mg/dL [facility] GFR/1.73 sq M.predicted CKD-EPI (S/P/Bld) [Vol rate/Area] >60 >=60 mL/min/1.7 3m 2 [facility] Glucose [Mass/Vol] 91 mg/dL 74 - 106 mg/dL [facility] Potassium [Moles/Vol] 4.4 mmol/L 3.5 - 5.1 mmol/L [facility] Sodium [Moles/Vol] 137 mmol/L 136 - 145 mmol/L [facility] TBH EGFR-NON AF CENTRAL AFRICAN >60 >=60 mL/min/1.7 3m 2 [facility] Urea nitrogen [Mass/Vol] 11 mg/dL 7.0 - 18.0 mg/dL [facility] Urea nitrogen/Creatinine [Mass ratio] 14.7 mg/mg [facility] XR Knee - left 1 or 2 [...] structures visualized appeared to be adequately ossified. [facility] Radiology Study observation (narrative) [facility] Gastroenterology Office/Clin ic Noteon 03-20-2024 Gastroenterology Office/Clinic [...] fL (01/15/24) Chloride: 100 mmol/L Low (01/15/24) [place] Absolute: 1.1 E9/L High (01/15/24) CO2: 23 mmol/L (01/15/24) [place] Auto: 10.6 % (01/15/24) Creatinine: 0.6 mg/dL [...] years, pereira (more content not included)... Normal [facility] Comment on above: Result Comment: Elec [...] EDT With: Deepti ALARCON, Martin Khan Where: [facility] [address] [place], [place] [id number]- You Need to Complete the Following Calprotectin, [...] choosing us for your care. Normal [facility] Gastroenterology Office/Clin ic Noteon 01-30-2024 Gastroenterology Office/Clinic [...] for h (more content not included)... Normal [facility] Comment on above: Result Comment: Elec tronically Signed By: Deepti ALARCON, Martin Khan\.br\Date and Time Signed: 01/30/24 14:13 EST Surgical Pathology Reporton 01-22-2024 Surgical Pathology Report [facility] [address] [place] [address]- Surgical Pathology Report Collected Date/Time: 01/15/2024 12:33 [...] characteristics were determined by the [facility] Surgical Pathology. They have not been cleared or approved by the US Food and Drug Administration. The FDA has determined that such clearance or approval is not necessary. These tests are used for clinical purposes. They should not be regarded as investigational or for research. Appropriate positive and negative controls are performed and are acceptable. Normal [facility] Comment on above: Performed By: #### 4 [id number] #### [facility] [address] [place] [address] Quantiferon-TB Plus (Client Incubated)on 01-17-2024 Gamma interferon background IA Qn (Bld) 0.02 International_Unit/mL Invalid Interpretation Code [facility] Comment on above: Performed By: #### 1 [id number] #### [facility] [address] [place] [address] M. tuberculosis stim IFN-g by CD4+ CD8+ T-cells corrected for background Qn (Bld) 0.05 International_Unit/mL Invalid Interpretation Code [facility] Comment on above: Performed By: #### 1 [id number] #### [facility] [address] [place] [address] M. tuberculosis stim IFN-g by CD4+ T-cells corrected for background Qn (Bld) 0.02 International_Unit/mL Invalid Interpretation Code [facility] Comment on above: Performed By: #### 1 [id number] #### [facility] [address] [place] [address] M. tuberculosis stim IFN-g Ql (Bld) [Interp] Negative Invalid Interpretation Code Negative [facility] Comment on above: Result Comment: No [...] interferon gamma. Chemiluminescence immunoassay methodology Performed at: [facility] [id number] PhD Kirk Cm Performed By: #### 1 [id number] #### [facility] [address] [place] [address] Mitogen stimulated gamma interferon corrected for background Qn (Bld) >10.[address] [facility] Comment on above: Performed By: #### 1 [id number] #### [facility] [address] [place] [address] Service comment (Unsp spec) [Interp] Comment Invalid Interpretation Code [facility] Comment on above: Result Comment: Terry [...] for the test. Performed By: #### 1 [id number] #### [facility] [address] [place] [address]696 Enteric Panel by PCRon 01-15 Enteric Panel by PCR Shiga Tox Interp Negative for Shiga Toxin producing E. coli Normal [facility] CHEMISTRYOrdered By: SYSTEM SYSTEM on 01-15-2024 [...] samples in close time sequence. Normal Negative [facility] Comment on above: Result Comment: This test result should be correlated with clinical presentations and medical history by a healthcare provider to determine its clinical significance.\.br\.br\ Other Comment: Order added by Discern Expert. Clostridium difficile by PCR Negative Normal Negative [facility] Comment on above: Order Comment: Order added by Discern Expert. Result Comment: This test result should be correlated with clinical presentations and medical history by a healthcare provider to determine its clinical significance. Performed By: #### 4 [id number] #### [facility] [address] [place] [address] CDiff PCRon 12-06-2023 C. difficile toxin A+B Ql (Stl) No, PCR to follow Normal [facility] Comment on above: Performed By: #### 3 [id number] #### [facility] [address] [place] [address] CDiff PCR Order Cancelled Specimen has been found to be acceptable for C. difficile testing. Normal [facility] Enteric Panel by PCRon 12-05 C. coli+jejuni+upsalien sis DNA ADELITA+non-probe Ql (Stl) Not detected Normal [facility] Comment on above: Result Comment: Test ing was performed utilizing reverse sandblaster glass (RT), polymerase chain reaction (PCR), and array [...] nulcleic acid test. Performed By: #### 1 [id number] #### [facility] [address] [place] [address] E. coli stx1+stx2 genes ADELITA+non-probe Ql (Stl) Negative Normal [facility] Comment on above: Performed By: #### 1 [id number] #### [facility] [address] [place] [address] Enteric Panel by PCR Shiga Tox Interp Negative for Shiga Toxin producing E. coli Normal [facility] Enteric Panel Intrl QC Pass Normal [facility] Comment on above: Result Comment: Test ing was performed utilizing reverse sandblaster glass (RT), polymerase chain reaction (PCR), and array [...] 1 and 2. Performed By: #### 1 [id number] #### [facility] [address] [place] [address] Norovirus genogroup I+II RNA ADELITA+non-probe Ql (Stl) Not detected [facility] Comment on above: Performed By: #### 1 [id number] #### [facility] [address] [place] [address] Rotavirus A RNA ADELITA+non-probe Ql (Stl) Not detected Normal [facility] Comment on above: Performed By: #### 1 [id number] #### [facility] [address] [place] [address] S. enterica+bongori DNA ADELITA+non-probe Ql (Stl) Not detected Normal [facility] Comment on above: Result Comment: This test result should be correlated with clinical presentations and medical history by a healthcare provider to determine its clinical significance. Performed By: #### 1 [id number] #### [facility] [address] [place] [address] Shigella species+EIEC invasion plasmid antigen H ipaH gene ADELITA+non-probe Ql (Stl) Not detected Normal [facility] Comment on above: Performed By: #### 1 [id number] #### [facility] [address] [place] [address] V. cholerae+parahaemoly ticus+vulnificus DNA ADELITA+non-probe Ql (Stl) Not detected Normal [facility] Comment on above: Performed By: #### 1 [id number] #### [facility] [address] [place] [address] Y. enterocolitica DNA ADELITA+non-probe Ql (Stl) Not detected Normal [facility] Comment on above: Performed By: #### 1 [id number] #### [facility] [address] [place] [address] Celiac Disease Comprehensive on 12-05-2023 Endomysium IgA Ql (S) Negative Invalid Interpretation Code Negative [facility] Comment on above: Performed By: #### 1 [id number] #### [facility] [address] [place] [address] Gliadin peptide IgA Qn (S) 4 unit(s) Invalid Interpretation Code 0-19 [facility] Comment on above: Result Comment: Nega tive 0 - 19 Weak Positive 20 - 30 Moderate to Strong Positive >30 Performed By: #### 1 [id number] #### [facility] [address] [place] [address] Gliadin peptide IgG Qn (S) 3 unit(s) Invalid Interpretation Code 0-19 [facility] Comment on above: Result Comment: Nega tive 0 - 19 Weak Positive 20 - 30 Moderate to Strong Positive >30 Performed By: #### 1 [id number] #### [facility] [address] [place] [address] IgA [Mass/Vol] 248 mg/dL Invalid Interpretation Code 64-422 [facility] Comment on above: Result Comment: Perf ormed at: [facility] [address] [id number] PhD Kirk Cm Performed By: #### 1 [id number] #### [facility] [address] [place] [address] tTG IgA Qn (S) <2 Invalid Interpretation Code 0-3 [facility] Comment on above: Result Comment: Nega tive 0 - 3 Weak Positive 4 - 10 Positive >10 Tissue Transglutaminase (tTG) has been identified as the endomysial antigen. Studies have demonstr- ated that endomysial IgA antibodies have over 99% specificity for gluten sensitive enteropathy. Performed By: #### 1 [id number] #### [facility] [address] [place] [address] tTG IgG Qn (S) 5 unit/mL Invalid Interpretation Code 0-5 [facility] Comment on above: Result Comment: Nega tive 0 - 5 Weak Positive 6 - 9 Positive >9 Performed By: #### 1 [id number] #### [facility] [address] [place] [address] CHEMISTRYOrdered By: SYSTEM SYSTEM on 12-04-2023 TSH Qn 1.76 m[IU]/L Normal 0.34 - 5.60 mcIU/mL Remisol Chem TSHon 12-04-2023 TSH Qn 1.76 m[IU]/L Normal 0.34-5.60 [facility] Comment on above: Performed By: #### 2 [id number] #### [facility] [address] [place] [address] CBC AUTO DIFFon 11-21-2021 BASO # 0.1 103/ul Normal 0.0-0.1 [facility] Comment on above: Performed By: #### C BC #### [facility] [address] [address] [address] Scooby Irvin Basophils/100 WBC (Bld) 0.5 % Normal 0.2-2.0 [facility] Comment on above: Performed By: #### C BC #### [facility] [address] [address] [address] Scooby Irvin EO # 0.0 103/ul Normal 0.0-0.7 [facility] Comment on above: Performed By: #### C BC #### [facility] [address] [place] [address] Dr. Scooby Irvin Eosinophils/100 WBC (Bld) 0.1 % Critically low 0.9-7.0 [facility] Comment on above: Performed By: #### C BC #### [facility] [address] [address] [address] Scooby Irvin Erythrocyte distribution width (RBC) [Ratio] 15.1 % Critically high 11.0-15.0 [facility] Comment on above: Performed By: #### C BC #### [facility] [address] [place] [address] Dr. Scooby Irvin Hematocrit (Bld) [Volume fraction] 39.4 % Normal 36.0-48.0 [facility] Comment on above: Performed By: #### C BC #### [facility] [address] [address] [address] Scooby Irvin Hemoglobin (Bld) [Mass/Vol] 12.6 g/dL Normal 12.0-16.0 [facility] Comment on above: Performed By: #### C BC #### [facility] [address] [address] [address] Scooby Irvin IG # 0.05 10e3/ul Critically high 0.00-0.03 [facility] Comment on above: Performed By: #### C BC #### [facility] [address] [place] [address] Dr. Scooby Irvin IG % 0.5 % Normal 0.0-0.5 [facility] Comment on above: Performed By: #### C BC #### [facility] [address] [place] [address] Dr. Scooby Irvin LYMPH # 1.3 103/ul Normal 1.2-3.8 [facility] Comment on above: Performed By: #### C BC #### [facility] [address] [place] [address] Dr. Scooby Irvin Lymphocytes/100 WBC (Bld) 13.2 % Critically low 20.5-60.0 [facility] Comment on above: Performed By: #### C BC #### [facility] [address] [place] [address] Dr. Scooby Irvin MANUAL DIFF REQ NO Normal [facility] Comment on above: Performed By: #### C BC #### [facility] [address] [place] [address] Dr. Scooby Irvin MCH (RBC) [Entitic mass] 30.0 pg Normal 26.7-34.0 [facility] Comment on above: Performed By: #### C BC #### [facility] [address] [place] [address] Dr. Scooby Irvin MCHC (RBC) [Mass/Vol] 32.0 g/dL Normal 29.9-35.2 [facility] Comment on above: Performed By: #### C BC #### [facility] [address] [place] [address] Dr. Scooby Irvin MCV (RBC) [Entitic vol] 93.8 fL Normal 81.0-99.0 [facility] Comment on above: Performed By: #### C BC #### [facility] [address] [place] [address] Dr. Scooby Irvin MONO # 0.7 103/ul Normal 0.3-0.8 [facility] Comment on above: Performed By: #### C BC #### [facility] [address] [place] [address] Dr. Scooby Irvin Monocytes/100 WBC (Bld) 7.2 % Normal 1.7-12.0 [facility] Comment on above: Performed By: #### C BC #### [facility] [address] [place] [address] Dr. Scooby Irvin NEUT # 7.5 103/ul Critically high 1.4-6.5 [facility] Comment on above: Performed By: #### C BC #### [facility] [address] [address] [address] Scooby Irvin Neutrophils/100 WBC (Bld) 78.5 % Critically high 43.0-75.0 [facility] Comment on above: Performed By: #### C BC #### [facility] [address] [place] [address] Dr. Scooby Irvin Platelet mean volume (Bld) [Entitic vol] 9.9 fL Normal 9.5-13.5 [facility] Comment on above: Performed By: #### C BC #### [facility] [address] [place] [address] Dr. Scooby Irvin PLT 230 103/ul Normal 150-450 [facility] Comment on above: Performed By: #### C BC #### [facility] [address] [place] [address] Dr. Scooby Irvin RBC 4.20 106/ul Normal 4.20-5.40 [facility] Comment on above: Performed By: #### C BC #### [facility] [address] [place] [address] Dr. Scooby Irvin WBC 9.5 103/ul Normal 4.0-11.0 [facility] Comment on above: Performed By: #### C BC #### [facility] [address] [place] [address] Dr. Scooby Irvin PROF 14(COMP METB)on 022 Albumin [Mass/Vol] 3.9 g/dL Normal 3.4-5.0 [facility] Comment on above: Performed By: #### C BC #### [facility] [address] [place] [address] Dr. Scooby Irvin Albumin/Globulin [Mass ratio] 1.0 {ratio} Normal [facility] Comment on above: Performed By: #### C BC #### [facility] [address] [place] [address] Dr. Scooby Irvin ALP [Catalytic activity/Vol] 87 U/L Normal 46-116 [facility] Comment on above: Performed By: #### C BC #### [facility] [address] [place] [address] Dr. Scooby Irvin ALT [Catalytic activity/Vol] 29 U/L Normal 14-59 [facility] Comment on above: Performed By: #### C BC #### [facility] [address] [place] [address] Dr. Scooby Irvin Anion gap [Moles/Vol] 14.1 mmol/L Normal [facility] Comment on above: Performed By: #### C BC #### [facility] [address] [place] [address] Dr. Scooby Irvin AST [Catalytic activity/Vol] 38 U/L Critically high 15-37 [facility] Comment on above: Performed By: #### C BC #### [facility] [address] [place] [address] Dr. Scooby Irvin Bilirubin [Mass/Vol] 0.5 mg/dL Normal 0.2-1.0 [facility] Comment on above: Performed By: #### C BC #### [facility] [address] [place] [address] Dr. Scooby Irvin Calcium [Mass/Vol] 9.2 mg/dL Normal 8.5-10.1 [facility] Comment on above: Performed By: #### C BC #### [facility] [address] [place] [address] Dr. Scooby Irvin Chloride [Moles/Vol] 102 mmol/L Normal 98-107 [facility] Comment on above: Performed By: #### C BC #### [facility] [address] [place] [address] Dr. Scooby Irvin CO2 [Moles/Vol] 25.7 mmol/L Normal 21.0-32.0 [facility] Comment on above: Performed By: #### C BC #### [facility] [address] [place] [address] Dr. Scooby Irvin Creatinine [Mass/Vol] 0.76 mg/dL Normal 0.55-1.02 [facility] Comment on above: Performed By: #### C BC #### [facility] [address] [place] [address] Dr. Scooby Irvin EGFR-AF CENTRAL AFRICAN >60 Normal >=60 [facility] Comment on above: Performed By: #### C BC #### [facility] [address] [place] [address] Dr. Scooby Irvin EGFR-NON AF CENTRAL AFRICAN >60 Normal >=60 [facility] Comment on above: Performed By: #### C BC #### [facility] [address] [place] [address] Dr. Scooby Irvin Globulin (S) [Mass/Vol] 3.8 g/dL Normal [facility] Comment on above: Performed By: #### C BC #### [facility] [address] [place] [address] Dr. Scooby Irvin Glucose [Mass/Vol] 104 mg/dL Normal 74-106 [facility] Comment on above: Performed By: #### C BC #### [facility] [address] [place] [address] Dr. Scooby Irvin Potassium [Moles/Vol] 4.8 mmol/L Normal 3.5-5.1 [facility] Comment on above: Performed By: #### C BC #### [facility] [address] [place] [address] Dr. Scooby Irvin Protein [Mass/Vol] 7.7 g/dL Normal 6.4-8.2 [facility] Comment on above: Performed By: #### C BC #### [facility] [address] [place] [address] Dr. Scooby Irvin Sodium [Moles/Vol] 137 mmol/L Normal 136-145 [facility] Comment on above: Performed By: #### C BC #### [facility] [address] [address] [address] Scooby Irvin Urea nitrogen [Mass/Vol] 9.0 mg/dL Normal 7.0-18.0 [facility] Comment on above: Performed By: #### C BC #### [facility] [address] [address] [address] Scooby Irvin Urea nitrogen/Creatinine [Mass ratio] 11.8 mg/mg Normal [facility] Comment on above: Performed By: #### C BC #### [facility] [address] [address] [address] Scooby Irvin LIPID PROFILEon 09-27-2021 CHOL-HDL RATIO NORM SEE BELOW Normal [facility] Comment on above: Result Comment: 3.3 - 4.4 LOW RISK 4.4 - 7.1 AVERAGE RISK 7.1 - 11.0 MODERATE RISK >11.0 HIGH RISK Performed By: #### C MP, LIPID #### [facility] [address] [place] [address] Dr. Scooby Irvin Cholesterol [Mass/Vol] 235 mg/dL Critically high <=200 [facility] Comment on above: Performed By: #### C MP, LIPID #### [facility] [address] [place] [address] Dr. Scooby Irvin Cholesterol in HDL [Mass/Vol] 65 mg/dL Critically high 40-60 [facility] Comment on above: Performed By: #### C MP, LIPID #### [facility] [address] [address] [address] Scooby Irvin Cholesterol in LDL [Mass/Vol] 156.8 mg/dL Normal [facility] Comment on above: Performed By: #### C MP, LIPID #### [facility] [address] [id number] Scooby Irvin Cholesterol.total/Ch olesterol in HDL [Mass ratio] 3.6 {ratio} Normal [facility] Comment on above: Performed By: #### C MP, LIPID #### [facility] [address] [address] [address] Scooby Irvin HDL NORMAL > or = 60 mg/dl - LO W CARDIOVASCULAR RISK <40 mg/dl - HIGH CARDIOVASCULAR RISK Normal [facility] Comment on above: Performed By: #### C MP, LIPID #### [facility] [address] [place] [address] Dr. Scooby Irvin LDL CALC NORMAL SEE BELOW Normal [facility] Comment on above: Result Comment: <100 mg/dl OPTIMAL 100 - 129 mg/dl NEAR OR ABOVE OPTIMAL 130 - 159 mg/dl BORDERLINE HIGH 160 - 189 mg/dl HIGH >190 mg/dl VERY HIGH Performed By: #### C MP, LIPID #### [facility] [address] [place] [address] Dr. Scooby Irvin Triglyceride [Mass/Vol] 66 mg/dL Normal <=150 [facility] Comment on above: Performed By: #### C MP, LIPID #### [facility] [address] [place] [address] Dr. Scooby Irvin VLDL CALC 13.2 mg/dL Normal [facility] Comment on above: Performed By: #### C MP, LIPID #### [facility] [address] [place] [address] Dr. Scooby Irvin PROF 14(COMP METB)on 022 Albumin [Mass/Vol] 3.9 g/dL Normal 3.4-5.0 [facility] Comment on above: Performed By: #### C MP, LIPID #### [facility] [address] [place] [address] Dr. Scooby Irvin Albumin/Globulin [Mass ratio] 1.1 {ratio} Normal [facility] Comment on above: Performed By: #### C MP, LIPID #### [facility] [address] [place] [address] Dr. Scooby Irvin ALP [Catalytic activity/Vol] 87 U/L Normal 46-116 [facility] Comment on above: Performed By: #### C MP, LIPID #### [facility] [address] [place] [address] Dr. Scooby Irvin ALT [Catalytic activity/Vol] 27 U/L Normal 14-59 [facility] Comment on above: Performed By: #### C MP, LIPID #### [facility] [address] [address] [address] Scooby Irvin Anion gap [Moles/Vol] 16.9 mmol/L Normal [facility] Comment on above: Performed By: #### C MP, LIPID #### [facility] [address] [address] [address] Scooby Irvin AST [Catalytic activity/Vol] 21 U/L Normal 15-37 [facility] Comment on above: Performed By: #### C MP, LIPID #### [facility] [address] [place] [address] Dr. Scooby Irvin Bilirubin [Mass/Vol] 0.4 mg/dL Normal 0.2-1.0 [facility] Comment on above: Performed By: #### C MP, LIPID #### [facility] [address] [place] [address] Dr. Scooby Irvin Calcium [Mass/Vol] 8.7 mg/dL Normal 8.5-10.1 [facility] Comment on above: Performed By: #### C MP, LIPID #### [facility] [address] [place] [address] Dr. Scooby Irvin Chloride [Moles/Vol] 102 mmol/L Normal 98-107 [facility] Comment on above: Performed By: #### C MP, LIPID #### [facility] [address] [place] [address] Dr. Scooby Irvin CO2 [Moles/Vol] 22.0 mmol/L Normal 21.0-32.0 [facility] Comment on above: Performed By: #### C MP, LIPID #### [facility] [address] [place] [address] Dr. Scooby Irvin Creatinine [Mass/Vol] 0.73 mg/dL Normal 0.55-1.02 [facility] Comment on above: Performed By: #### C MP, LIPID #### [facility] [address] [place] [address] Dr. Scooby Irvin EGFR-AF CENTRAL AFRICAN >60 Normal >=60 [facility] Comment on above: Performed By: #### C MP, LIPID #### [facility] [address] [place] [address] Dr. Scooby Irvin EGFR-NON AF CENTRAL AFRICAN >60 Normal >=60 [facility] Comment on above: Performed By: #### C MP, LIPID #### [facility] [address] [place] [address] Dr. Scooby Irivn Globulin (S) [Mass/Vol] 3.7 g/dL Normal [facility] Comment on above: Performed By: #### C MP, LIPID #### [facility] [address] [place] [address] Dr. Scooby Irvin Glucose [Mass/Vol] 105 mg/dL Normal 74-106 [facility] Comment on above: Performed By: #### C MP, LIPID #### [facility] [address] [place] [address] Dr. Scooby Irvin Potassium [Moles/Vol] 3.9 mmol/L Normal 3.5-5.1 [facility] Comment on above: Performed By: #### C MP, LIPID #### [facility] [address] [place] [address] Dr. Scooby Irvin Protein [Mass/Vol] 7.6 g/dL Normal 6.4-8.2 [facility] Comment on above: Performed By: #### C MP, LIPID #### [facility] [address] [place] [address] Dr. Scooby Irvin Sodium [Moles/Vol] 137 mmol/L Normal 136-145 [facility] Comment on above: Performed By: #### C MP, LIPID #### [facility] [address] [place] [address] Dr. Scooby Irvin Urea nitrogen [Mass/Vol] 11.0 mg/dL Normal 7.0-18.0 [facility] Comment on above: Performed By: #### C MP, LIPID #### [facility] [address] [place] [address] Dr. Scooby Irvin Urea nitrogen/Creatinine [Mass ratio] 15.1 mg/mg Normal [facility] Comment on above: Performed By: #### C MP, LIPID #### [facility] [address] [place] [address] Dr. Scooby Irvin TSHon 09-27-2021 TSH 2.198 uIU/mL Normal 0.358-3.74 0 [facility] Comment on above: Performed By: #### T SH #### [facility] [address] [place] [address] Dr. Scooby Irvin Covid-19 PCR ([facility])on 09-11 SARS-CoV-2 (COVID-19) RNA ADELITA+probe Ql (Unsp spec) Not detected Normal NOT DETECTED [facility] Comment on above: Result Comment: This test is not yet approved or cleared by the [place] FDA. When there are no FDA-approved or cleared tests available, and other criteria are met, FDA can make tests available under an emergency access mechanism called an Emergency Use Authorization (EUA). The EUA for this test is supported by the [place] of Health and Human Service's (HHS's) declaration [...] SARS-CoV-2. Performed By: #### C BC #### [facility] [address] [place] [address] Dr. Scooby Irvin TSHon 06-22-2021 TSH 2.326 uIU/mL Normal 0.358-3.74 0 [facility] Comment on above: Performed By: #### C BC #### [facility] [address] [place] [address] Dr. Scooby Irvin TSH RANGE SEE BELOW Normal [facility] Comment on above: Result Comment: <0.3 4 UIU/ml HYPERTHYROID 0.34-5.60 UIU/ml EUTHYROID >5.60 UIU/ml HYPOTHYROID Performed By: #### C BC #### [facility] [address] [place], [place] [address] Dr. Scooby Irvni ABO/Rh Retypeon 05-31-2021 ABO/RH Recheck Result Positive Normal [facility] Comment on above: Result Comment: PERF ORMED BY: [facility] [address] [address] PATHOLOGIST AIRFRAME TECHNICIAN TRICIA Yin 05-31-2021 L -------- -------- Specimen: [id number] Received: 05/31/21 Status: LIDIA Duckworth Num: [id number] Spec Type: Surgical Subm Dr: Luis Gutierrez DO Tissues: A Parathyroid Gland (R/O PARATHYROID) B THYROID - Lobe (R SUBSTERNAL THYROID) Procedures: HE Stain/8, Gross/Micro L5, Gross/Micro L4 -------- Patient Age/Sex Location Account Attending Physician -------- Alexandra Cervantes 71/F [place] [id number] Luis Gutierrez DO -------- SPEC NUM: [id number] RECD: 05/31/21 STATUS: LIDIA DUCKWORTH NUM: [id number] KATHY: 05/31/21- SUBM DR: Luis Gutierrez DO ENTERED: 05/31/[address]: LANCE TYPE: Surgical DEPT: S ORDERED: [...] Specimen: Received: 05/31/21 Status: LIDIA Duckworth Num: [id number] Spec Type: Surgical Subm Dr: Luis Gutierrez DO Tissues: A Parathyroid Gland (R/O PARATHYROID) B THYROID - Lobe (R SUBSTERNAL THYROID) Procedures: HE Stain/8, Gross/Micro L5, Gross/Micro L4 -------- Patient: Alexandra Cervantes [id number] (Continued) -------- Specimen: Received: 05/31/21 (Continued) Gross Description (Continued) Signed (signature on file) Tricia Oshea MD 06/01/211912 -------- Specimen: Received: 05/31/21 Status: LIDIA Duckworth Num: [id number] Spec Type: Surgical Subm Dr: Luis Gutierrez Tissues: A Parathyroid Gland (R/O PARATHYROID) B THYROID - Lobe (R SUBSTERNAL THYROID) Procedures: HE Stain/8, Gross/Micro L5, Gross/Micro L4 -------- Patient: Alexandra Cervantes [id number] (Continued) -------- Specimen: [id number] Received: 05/31/21-105 (Continued) Gross Description (Continued) demonstrates [...] microscopic findings support the above pathologic diagnosis. 19507, 70311, [address] -------- -------- Specimen: [id number] Received: (more content not included)... Normal [facility] LeukoReduced RBCon LeukoReduced RBC READY Normal [facility] Type and Screenon 05-31-2021 ABO and Rh group Nom (Bld) Blood group O Rh(D) positive Normal [facility] Comment on above: Order Comment: Trans fuse now? N Result Comment: PERF ORMED BY: [place] [address] PATHOLOGIST AIRFRAME TECHNICIAN TRICIA OSHEA M.D. Basic Metabolic Panelon 05-12 Calcium [Mass/Vol] 9.5 mg/dL Normal 8.2-10.2 [facility] Comment on above: Result Comment: PERF ORMED BY: [facility] [address] [place] [address] PATHOLOGIST AIRFRAME TECHNICIAN TRICIA OSHEA M.D. Performed By: #### C BC, BMP #### [facility] [address] [place] [address] [place] Chloride [Moles/Vol] 105 mmol/L Normal 95-114 [facility] Comment on above: Performed By: #### C BC, BMP #### [facility] [address] [place] [id number] [place] CO2 [Moles/Vol] 23.0 mmol/L Normal 22.0-30.0 [facility] Comment on above: Performed By: #### C BC, BMP #### [address] Creatinine [Mass/Vol] 0.66 mg/dL Normal 0.44-1.03 [facility] Comment on above: Performed By: #### C BC, BMP #### [address] Estimated GFR ( Traci > 60 Normal [facility] Comment on above: Result Comment: GFR estimated reference range: According to KDOQI guidelines, <60 ml/min/1.73m2 is sufficient to diagnose a patient with chronic kidney disease. Performed By: #### C KELSEY, BMP #### [address] Estimated GFR (Non- Am > 60 Normal [facility] Comment on above: Performed By: #### C BC, BMP #### [address] Glucose [Mass/Vol] 89 mg/dL Normal 70-100 [facility] Comment on above: Result Comment: [place] Glucose Reference Range is dependent on time and content of last meal. Glucose of more than 200 mg/dL in a nonstressed, ambulatory subject supports the diagnosis of Diabetes Mellitus. ADA recommended reference range Performed By: #### C BC, BMP #### [address] Potassium [Moles/Vol] 4.0 mmol/L Normal 3.5-5.1 [facility] Comment on above: Performed By: #### C BC, BMP #### [address] Sodium [Moles/Vol] 137 mmol/L Normal 136-146 [facility] Comment on above: Performed By: #### C BC, BMP #### [address] Urea nitrogen [Mass/Vol] 10 mg/dL Normal 9-23 [facility] Comment on above: Performed By: #### C BC, BMP #### [place] [address] [place] Basophils Auto (Bld) [#/Vol] Ordered By: Luis Dengkam on 05-26-2021 Basophils (Bld) [#/Vol] 0.1 10*3/uL 0.0-0.2 [facility] Basophils/100 WBC Auto (Bld) Ordered By: Luis Arreagaziggy on 05-26-2021 Basophils/100 WBC (Bld) 0.9 % [facility] Blood hemoglobin measurement (mass/volume)Ordered By: Luis Dengkam on 05-26-2021 Hemoglobin (Bld) [Mass/Vol] 12.4 g/dL 11.8-15.4 [facility] Blood leukocytes automated c ount (number/volume)Ordered By: Luis Dengkam on 05-26-2021 WBC (Bld) [#/Vol] 8.8 10*3/uL 4.5-11.0 [facility] COVID-19 FRMCon 05-26-2021 SARS-CoV-2 (COVID-19) RNA ADELITA+probe Ql (Unsp spec) Negative Normal Negative [facility] Comment on above: Order Comment: Healt hcare Worker?: N Result Comment: Testing for SARS-CoV-2 by RT-PCR This test was developed and its performance characteristics determined by [employer]) and validated at the [facility]. This [...] is terminated or revoked sooner. PERFORMED BY: [facility] [place] [address] PATHOLOGIST AIRFRAME TECHNICIAN TRICIA OSHEA M.D. Performed By: #### C OVID 19 [facility] #### [facility] [address] [place] [address] COVID-19 Positive/NegativeOr dered By: Luis Gutierrez on 05-26-2021 SARS-CoV-2 (COVID-19) N gene ADELITA+probe Ql (Resp) Negative Negative [facility] Comment on above: Testing for SARS-CoV -2 by RT-PCRThis test was developed and its performance characteristics determined by [employer]) and validated at the [facility]. This [...] 05-26-2021 Calcium [Mass/Vol] 9.4 mg/dL Normal 8.2-10.2 [facility] Comment on above: Performed By: #### C A, TSH3, PTH #### [address] Complete Blood Count Auto Di ffon 05-26-2021 Basophils (Bld) [#/Vol] 0.1 10*3/uL Normal 0.0-0.2 [facility] Comment on above: Result Comment: PERF ORMED BY: [place] [address] PATHOLOGIST AIRFRAME TECHNICIAN TRICIA OSHEA M.D. Performed By: #### C BC, BMP #### [address] Basophils/100 WBC (Bld) 0.9 % Normal . [facility] Comment on above: Performed By: #### C BC, BMP #### [address] Eosinophils (Bld) [#/Vol] 0.0 10*3/uL Normal 0.0-0.45 [facility] Comment on above: Performed By: #### C BC, BMP #### [address] Eosinophils/100 WBC (Bld) 0.2 % Normal . [facility] Comment on above: Performed By: #### C KELSEY, BMP #### [address] Erythrocyte distribution width (RBC) [Ratio] 16.1 % High 11.9-15.3 [facility] Comment on above: Performed By: #### C BC, BMP #### [address] Hematocrit (Bld) [Volume fraction] 37.5 % Normal 34.0-46.4 [facility] Comment on above: Performed By: #### C BC, BMP #### [address] Hemoglobin (Bld) [Mass/Vol] 12.4 g/dL Normal 11.8-15.4 [facility] Comment on above: Performed By: #### C BC, BMP #### [address] Lymphocytes (Bld) [#/Vol] 1.4 10*3/uL Normal 1.00-4.8 [facility] Comment on above: Performed By: #### C BC, BMP #### [address] Lymphocytes/100 WBC (Bld) 15.8 % Normal . [facility] Comment on above: Performed By: #### C BC, BMP #### [address] MCH (RBC) [Entitic mass] 29.2 pg Normal 24.7-34.3 [facility] Comment on above: Performed By: #### C BC, BMP #### [address] MCV (RBC) [Entitic vol] 88.3 fL Normal 80-100 [facility] Comment on above: Performed By: #### C BC, BMP #### [address] Mean Corpuscular HGB Conc 33.1 g/dL Normal 32.0-35.0 [facility] Comment on above: Performed By: #### C KELSEY, BMP #### [address] Monocytes (Bld) [#/Vol] 0.7 10*3/uL Normal 0.0-0.8 [facility] Comment on above: Performed By: #### C KELSEY, BMP #### [address] Monocytes/100 WBC (Bld) 7.7 % Normal . [facility] Comment on above: Performed By: #### C KELSEY, BMP #### [address] Neutrophils (Bld) [#/Vol] 6.7 10*3/uL Normal 1.8-7.7 [facility] Comment on above: Performed By: #### C BC, BMP #### [address] Neutrophils/100 WBC (Bld) 75.4 % Normal . [facility] Comment on above: Performed By: #### C BC, BMP #### [address] Nucleated RBC/100 WBC (Bld) [Ratio] 0.1 % Normal 0-0.5 [facility] Comment on above: Performed By: #### C BC, BMP #### [address] Platelet mean volume (Bld) [Entitic vol] 8.6 fL Normal 6.3-10.7 [facility] Comment on above: Performed By: #### C BC, BMP #### [facility] [address] Platelets (Bld) [#/Vol] 241 10*3/uL Normal 150-450 [facility] Comment on above: Performed By: #### C KELSEY, BMP #### [facility] [address] RBC (Bld) [#/Vol] 4.24 10*6/uL Normal 3.60-5.00 [facility] Comment on above: Performed By: #### C KELSEY, BMP #### [facility] [address] WBC (Bld) [#/Vol] 8.8 10*3/uL Normal 4.5-11.0 [facility] Comment on above: Performed By: #### C BC, BMP #### [facility] [address] Creatinine and Glomerular fi ltration rate.predicted panel (S/P/Bld)Ordered By: Luis Gutierrez on 05-26-2021 Creatinine [Mass/Vol] 0.66 mg/dL 0.44-1.03 [facility] ECG 12 lead ECGon 05-26-2021 ECG 12 lead ECG [facility] [place] [address] [place] [address] Electrocardiograph Report Signed Patient: Alexandra Cervantes MR#: [id number] 2 : 1950 Acct:[id number] Age/Sex: 71 / F ADM Date: 05/26/21 Loc: PS [facility]: [facility] Attending Dr: Luis Gutierrez DO Ordering Provider: Lius Gutierrez DO Date of Service: 05/26/21 ECG/ECG [...] on above: Result Comment: PERF ORMED BY: [facility] [address] [place] [address] PATHOLOGIST AIRFRAME TECHNICIAN TRICIA OSHEA M.D. Performed By: #### C BC, BMP #### [facility] [address] Platelet mean volume Auto (B ld) [Entitic vol]Ordered By: Luis Gutierrez on 05-26-2021 Platelet mean volume (Bld) [Entitic vol] 8.6 fL 6.3-10.7 [facility] Platelets Auto (Bld) [#/Vol] Ordered By: Luis Gutierrez on 05-26-2021 Platelets (Bld) [#/Vol] 241 10*3/uL 150-450 [facility] RBC Auto (Bld) [#/Vol]Ordere d By: Luis Guiterrez on 05-26-2021 RBC (Bld) [#/Vol] 4.24 10*6/uL 3.60-5.00 [facility] Serum or plasma calcium joseph urement (mass/volume)Ordered By: Luis Gutierrez on 05-26-2021 Calcium [Mass/Vol] 9.4 mg/dL 8.2-10.2 [facility] Serum or plasma chloride liv surement (moles/volume)Ordered By: Luis Gutierrez on 05-26-2021 Chloride [Moles/Vol] 105 mmol/L 95-114 [facility] Serum or plasma glucose joseph urement (mass/volume)Ordered By: Luis Gutierrez on 05-26-2021 Glucose [Mass/Vol] 89 mg/dL 70-100 [facility] Comment on above: ADA recommended refe [...] on 05-26-2021 Sodium [Moles/Vol] 137 mmol/L 136-146 [facility] Serum or plasma total carbon dioxide measurement (moles/volume)Ordered By: Luis Gutierrez on 05-26-2021 CO2 [Moles/Vol] 23.0 mmol/L 22.0-30.0 [facility] Serum or plasma urea nitroge [...] By: #### C A, TSH3, PTH #### [address] MG MAMM SCREEN 3D GEORGES CADon 05-22-2021 MG MAMM SCREEN 3D GEORGES CAD Patient: ALEXANDRA CERVANTES Exam Date: 05/22/2021 : 1950 Gender:F Ordering : DR LAURITA MORALES M.D. Admission #: [id number] Family : Order #: [id number] CLICK HERE TO VIEW EXAM RADIOLOGY REPORT [...] No Treatments None Family Cancers None LOCATION: [facility] BREAST COMPOSITION: Scattered areas fibroglandular density. FINDINGS: [...] MD on 05/22/2021 at 12:06 Normal [facility] CT Chest w/Contraston 2021 CT Chest w/Contrast Please see CT neck r eport dated: 05/17/2021. Report reported and signed by Fuentes Lion on 05/22/2021 [address] [facility] CT Soft Tissue Neck w/ [...] by Fuentes Lion on 05/22/2021 1528 Normal [facility] Specialist [place] esophaguson 05-04-2021 [place] esophagus [facility] [address] [address] Fluoroscopy Report Signed Patient: Alexandra Cervantes MR#: [id number] 2 : 1950 Acct:[id number] Age/Sex: 71 / F ADM Date: 05/04/21 Loc: XD Room: Type: [facility] Attending Dr: Cy Sears MD Ordering [...] Kitchen Jr., M.D.05/04/2021 3:37 PM Dictation Location: [place] [address] Transcribed By: [facility] 05/04/211536 Dictated By: Selvin Kitchen Jr, MD 05/04/211531 Signed By: 05/04/21 153 [facility] CBC AUTO DIFFon 04-20-2021 BASO # 0.1 103/ul Normal 0.0-0.1 [facility] Comment on above: Performed By: #### C #### [facility] [address] [place] [address] Dr. Scooby Irvin Basophils/100 WBC (Bld) 0.4 % Normal 0.2-2.0 [facility] Comment on above: Performed By: #### C BC #### [facility] [address] [place] [address] Dr. Scooby Irvin EO # 0.0 103/ul Normal 0.0-0.7 [facility] Comment on above: Performed By: #### C BC #### [facility] [address] [place] [address] Dr. Scooby Irvin Eosinophils/100 WBC (Bld) 0.2 % Critically low 0.9-7.0 [facility] Comment on above: Performed By: #### C BC #### [facility] [address] [place] [address] Dr. Scooby Irvin Erythrocyte distribution width (RBC) [Ratio] 16.7 % Critically high 11.0-15.0 [facility] Comment on above: Performed By: #### C BC #### [facility] [address] [place] [address] Dr. Scooby Irvin Hematocrit (Bld) [Volume fraction] 37.6 % Normal 36.0-48.0 [facility] Comment on above: Performed By: #### C BC #### [facility] [address] [place] [address] Dr. Scooby Irvin Hemoglobin (Bld) [Mass/Vol] 12.0 g/dL Normal 12.0-16.0 [facility] Comment on above: Performed By: #### C BC #### [facility] [address] [place] [address] Dr. Scooby Irvin IG # 0.02 10e3/ul Normal 0.00-0.03 [facility] Comment on above: Performed By: #### C BC #### [facility] [address] [place] [address] Dr. Scooby Irvin IG % 0.2 % Normal 0.0-0.5 [facility] Comment on above: Performed By: #### C BC #### [facility] [address] [place] [address] Dr. Scooby Irvin LYMPH # 1.6 103/ul Normal 1.2-3.8 [facility] Comment on above: Performed By: #### C BC #### [facility] [address] [place] [address] Dr. Scooby Irvin Lymphocytes/100 WBC (Bld) 13.6 % Critically low 20.5-60.0 [facility] Comment on above: Performed By: #### C BC #### [facility] [address] [place] [address] Dr. Scooby Irvin MANUAL DIFF REQ NO Normal [facility] Comment on above: Performed By: #### C BC #### [facility] [address] [place] [address] Dr. Scooby Irvin MCH (RBC) [Entitic mass] 28.6 pg Normal 26.7-34.0 [facility] Comment on above: Performed By: #### C BC #### [facility] [address] [place] [address] Dr. Scooby Irvin MCHC (RBC) [Mass/Vol] 31.9 g/dL Normal 29.9-35.2 [facility] Comment on above: Performed By: #### C BC #### [facility] [address] [place] [address] Dr. Scooby Irvin MCV (RBC) [Entitic vol] 89.5 fL Normal 81.0-99.0 [facility] Comment on above: Performed By: #### C BC #### [facility] [address] [place] [address] Dr. Scooby Irvin MONO # 0.7 103/ul Normal 0.3-0.8 [facility] Comment on above: Performed By: #### C BC #### [facility] [address] [place] [address] Dr. Scooby Irvin Monocytes/100 WBC (Bld) 5.8 % Normal 1.7-12.0 [facility] Comment on above: Performed By: #### C BC #### [facility] [address] [address] [address] Scooby Irvin NEUT # 9.1 103/ul Critically high 1.4-6.5 [facility] Comment on above: Performed By: #### C BC #### [facility] [address] [place] [address] Dr. Scooby Irvin Neutrophils/100 WBC (Bld) 79.8 % Critically high 43.0-75.0 [facility] Comment on above: Performed By: #### C BC #### [facility] [address] [place] [address] Dr. Scooby Irvin Platelet mean volume (Bld) [Entitic vol] 10.2 fL Normal 9.5-13.5 [facility] Comment on above: Performed By: #### C BC #### [facility] [address] [place] [address] Dr. Scooby Irvin PLT 217 103/ul Normal 150-450 [facility] Comment on above: Performed By: #### C BC #### [facility] [address] [place] [address] Dr. Scooby Irvin RBC 4.20 106/ul Normal 4.20-5.40 [facility] Comment on above: Performed By: #### C BC #### [facility] [address] [place] [address] Dr. Scooby Irvin WBC 11.4 103/ul Critically high 4.0-11.0 [facility] Comment on above: Performed By: #### C BC #### [facility] [address] [place] [address] Dr. Scooby Irvin PROF 14(COMP METB)on 022 Albumin [Mass/Vol] 3.9 g/dL Normal 3.5-5.0 [facility] Comment on above: Performed By: #### C MP #### [facility] [address] [place] [address] Dr. Scooby Irvin Albumin/Globulin [Mass ratio] 1.1 {ratio} Normal [facility] Comment on above: Performed By: #### C MP #### [facility] [address] [place] [address] Dr. Scooby Irvin ALP [Catalytic activity/Vol] 72 U/L Normal 38-126 [facility] Comment on above: Performed By: #### C MP #### [facility] [address] [place] [address] Dr. Scooby Irvin ALT [Catalytic activity/Vol] 23 U/L Normal 9-52 [facility] Comment on above: Performed By: #### C MP #### [facility] [address] [place] [address] Dr. Scooby Irvin Anion gap [Moles/Vol] 10.2 mmol/L Normal [facility] Comment on above: Performed By: #### C MP #### [facility] [address] [place] [address] Dr. Scooby Irvin AST [Catalytic activity/Vol] 20 U/L Normal 14-36 [facility] Comment on above: Performed By: #### C MP #### [facility] [address] [place] [address] Dr. Scooby Irvin Bilirubin [Mass/Vol] 0.5 mg/dL Normal 0.2-1.3 [facility] Comment on above: Performed By: #### C MP #### [facility] [address] [place] [address] Dr. Scooby Irvin Calcium [Mass/Vol] 8.8 mg/dL Normal 8.4-10.2 [facility] Comment on above: Performed By: #### C MP #### [facility] [address] [place] [address] Dr. Scooby Irvin Chloride [Moles/Vol] 104 mmol/L Normal 98-107 [facility] Comment on above: Performed By: #### C MP #### [facility] [address] [place] [address] Dr. Scooby Irvin CO2 [Moles/Vol] 28.0 mmol/L Normal 22.0-30.0 [facility] Comment on above: Performed By: #### C MP #### [facility] [address] [place] [address] Dr. Scooby Irvin Creatinine [Mass/Vol] 0.87 mg/dL Normal 0.52-1.04 [facility] Comment on above: Performed By: #### C MP #### [facility] [address] [address] [address] Scooby Irvin EGFR-AF CENTRAL AFRICAN >60 Normal >=60 [facility] Comment on above: Performed By: #### C MP #### [facility] [address] [address] [address] Scooby Irvin EGFR-NON AF CENTRAL AFRICAN >60 Normal >=60 [facility] Comment on above: Performed By: #### C MP #### [facility] [address] [address] [address] Scooby Irvin Globulin (S) [Mass/Vol] 3.5 g/dL Normal [facility] Comment on above: Performed By: #### C MP #### [facility] [address] [place] [address] Dr. Scooby Irvin Glucose [Mass/Vol] 93 mg/dL Normal 74-106 [facility] Comment on above: Performed By: #### C MP #### [facility] [address] [place] [address] Dr. Scooby Irvin Potassium [Moles/Vol] 4.2 mmol/L Normal 3.4-5.0 [facility] Comment on above: Performed By: #### C MP #### [facility] [address] [place] [address] Dr. Scooby Irvin Protein [Mass/Vol] 7.4 g/dL Normal 6.1-8.2 [facility] Comment on above: Performed By: #### C MP #### [facility] [address] [place] [address] Dr. Scooby Irvin Sodium [Moles/Vol] 138 mmol/L Normal 137-145 [facility] Comment on above: Performed By: #### C MP #### [facility] [address] [place] [address] Dr. Scooby Irvin Urea nitrogen [Mass/Vol] 15.0 mg/dL Normal 7.0-17.0 [facility] Comment on above: Performed By: #### C MP #### [facility] [address] [place], [place] [address] Dr. Scooby Irvin Urea nitrogen/Creatinine [Mass ratio] 17.2 mg/mg Normal [facility] Comment on above: Performed By: #### C JARED #### [facility] [address] [place], [place] [address] SKULL BASE [...] FUENTES BARRETO Date: 2021-04-07 08:23 Normal [facility] CT LUNG CANCER SCREENINGon 0 03-23-2021 [...] FUENTES BARRETO Date: 2021-03-23 09:57 Normal [facility] CBC AUTO DIFFon 03-09-2021 BASO # 0.1 103/ul Normal 0.0-0.1 [facility] Comment on above: Performed By: #### C BC #### [facility] [address] [address] [address] Scooby Irvin Basophils/100 WBC (Bld) 1.2 % Normal 0.2-2.0 [facility] Comment on above: Performed By: #### C BC #### [facility] [address] [address] [address] Scooby Irvin EO # 0.1 103/ul Normal 0.0-0.7 [facility] Comment on above: Performed By: #### C BC #### [facility] [address] [address] [address] Scooby Irvin Eosinophils/100 WBC (Bld) 1.4 % Normal 0.9-7.0 [facility] Comment on above: Performed By: #### C BC #### [facility] [address] [place] [address] Dr. Scooby Irvin Erythrocyte distribution width (RBC) [Ratio] 16.3 % Critically high 11.0-15.0 [facility] Comment on above: Performed By: #### C BC #### [facility] [address] [place] [address] Dr. Scooby Irvin Hematocrit (Bld) [Volume fraction] 39.6 % Normal 36.0-48.0 [facility] Comment on above: Performed By: #### C BC #### [facility] [address] [place] [address] Dr. Scooby Irvin Hemoglobin (Bld) [Mass/Vol] 12.6 g/dL Normal 12.0-16.0 [facility] Comment on above: Performed By: #### C BC #### [facility] [address] [place] [address] Dr. Scooby Irvin IG # 0.01 10e3/ul Normal 0.00-0.03 [facility] Comment on above: Performed By: #### C BC #### [facility] [address] [place] [address] Dr. Scooby Irvin IG % 0.2 % Normal 0.0-0.5 [facility] Comment on above: Performed By: #### C BC #### [facility] [address] [place] [address] Dr. Scooby Irvin LYMPH # 1.6 103/ul Normal 1.2-3.8 [facility] Comment on above: Performed By: #### C BC #### [facility] [address] [place] [address] Dr. Scooby Irvin Lymphocytes/100 WBC (Bld) 30.7 % Normal 20.5-60.0 [facility] Comment on above: Performed By: #### C BC #### [facility] [address] [place] [address] Dr. Scooby Irvin MANUAL DIFF REQ NO Normal [facility] Comment on above: Performed By: #### C BC #### [facility] [address] [address] [address] Scooby Irvin MCH (RBC) [Entitic mass] 28.4 pg Normal 26.7-34.0 [facility] Comment on above: Performed By: #### C BC #### [facility] [address] [place] [address] Dr. Scooby Irvin MCHC (RBC) [Mass/Vol] 31.8 g/dL Normal 29.9-35.2 [facility] Comment on above: Performed By: #### C BC #### [facility] [address] [place] [address] Dr. Scooby Irvin MCV (RBC) [Entitic vol] 89.2 fL Normal 81.0-99.0 [facility] Comment on above: Performed By: #### C BC #### [facility] [address] [place] [address] Dr. Scooby Irvin MONO # 0.6 103/ul Normal 0.3-0.8 [facility] Comment on above: Performed By: #### C BC #### [facility] [address] [place] [address] Dr. Scooby Irvin Monocytes/100 WBC (Bld) 11.5 % Normal 1.7-12.0 [facility] Comment on above: Performed By: #### C BC #### [facility] [address] [place] [address] Dr. Scooby Irvin NEUT # 2.8 103/ul Normal 1.4-6.5 [facility] Comment on above: Performed By: #### C BC #### [facility] [address] [place] [address] Dr. Scooby Irvin Neutrophils/100 WBC (Bld) 55.0 % Normal 43.0-75.0 [facility] Comment on above: Performed By: #### C BC #### [facility] [address] [place] [address] Dr. Scooby Irvin Platelet mean volume (Bld) [Entitic vol] 10.3 fL Normal 9.5-13.5 [facility] Comment on above: Performed By: #### C BC #### [facility] [address] [place] [address] Dr. Scooby Irvin PLT 208 103/ul Normal 150-450 [facility] Comment on above: Performed By: #### C BC #### [facility] [address] [place], [place] [id number] Dr. Scooby Irvin RBC 4.44 106/ul Normal 4.20-5.40 [facility] Comment on above: Performed By: #### C BC #### [facility] [address] [place] [address] Dr. Scooby Irvin WBC 5.1 103/ul Normal 4.0-11.0 [facility] Comment on above: Performed By: #### C BC #### [facility] [address] [place] [address] Dr. Scooby Irvin FREE T4on 03-09-2021 Free T4 [Mass/Vol] 1.15 ng/dL Normal 0.78-2.19 [facility] Comment on above: Performed By: #### C BC #### [facility] [address] [place] [address] Dr. Scooby Irvin LIPID PROFILEon 03-09-2021 CHOL-HDL RATIO NORM SEE BELOW Normal [facility] Comment on above: Result Comment: 3.3 - 4.4 LOW RISK 4.4 - 7.1 AVERAGE RISK 7.1 - 11.0 MODERATE RISK >11.0 HIGH RISK Performed By: #### L IPID, CMP, TSH #### [facility] [address] [place] [address] Dr. Scooby Irvin Cholesterol [Mass/Vol] 227 mg/dL Critically high <=200 [facility] Comment on above: Performed By: #### L IPID, CMP, TSH #### [facility] [address] [place] [address] Dr. Scooby Irvin Cholesterol in HDL [Mass/Vol] 65 mg/dL Normal [facility] Comment on above: Performed By: #### L IPID, CMP, TSH #### [facility] [address] [place] [address] Dr. Scooby Irvin Cholesterol in LDL [Mass/Vol] 142.6 mg/dL Normal [facility] Comment on above: Performed By: #### L IPID, CMP, TSH #### [facility] [address] [address] [address] Scooby Irvin Cholesterol.total/Ch olesterol in HDL [Mass ratio] 3.5 {ratio} Normal [facility] Comment on above: Performed By: #### L IPID, CMP, TSH #### [facility] [address] [address] [address] Scooby Irvin HDL NORMAL > or = 60 mg/dl - LO W CARDIOVASCULAR RISK <40 mg/dl - HIGH CARDIOVASCULAR RISK Normal [facility] Comment on above: Performed By: #### L IPID, CMP, TSH #### [facility] [address] [place] [address] Dr. Scooby Irvin LDL CALC NORMAL SEE BELOW Normal [facility] Comment on above: Result Comment: <100 mg/dl OPTIMAL 100 - 129 mg/dl NEAR OR ABOVE OPTIMAL 130 - 159 mg/dl BORDERLINE HIGH 160 - 189 mg/dl HIGH >190 mg/dl VERY HIGH Performed By: #### L IPID, CMP, TSH #### [facility] [address] [address] [address] Scooby Irvin Triglyceride [Mass/Vol] 97 mg/dL Normal <=150 [facility] Comment on above: Performed By: #### L IPID, CMP, TSH #### [facility] [address] [place] [address] Dr. Scooby Irvin VLDL CALC 19.4 mg/dL Normal [facility] Comment on above: Performed By: #### L IPID, CMP, TSH #### [facility] [address] [address] [address] Scooby Irvin PROF 14(COMP METB)on 022 Albumin [Mass/Vol] 4.0 g/dL Normal 3.5-5.0 [facility] Comment on above: Performed By: #### L IPID, CMP, TSH #### [facility] [address] [address] [address] Scooby Irvin Albumin/Globulin [Mass ratio] 1.1 {ratio} Normal [facility] Comment on above: Performed By: #### L IPID, CMP, TSH #### [facility] [address] [place] [address] Dr. Scooby Irvin ALP [Catalytic activity/Vol] 80 U/L Normal 38-126 [facility] Comment on above: Performed By: #### L IPID, CMP, TSH #### [facility] [address] [place] [address] Dr. Scooby Irvin ALT [Catalytic activity/Vol] 35 U/L Normal 9-52 [facility] Comment on above: Performed By: #### L IPID, CMP, TSH #### [facility] [address] [place] [address] Dr. Scooby Irvin Anion gap [Moles/Vol] 11.8 mmol/L Normal [facility] Comment on above: Performed By: #### L IPID, CMP, TSH #### [facility] [address] [place] [address] Dr. Scooby Irvin AST [Catalytic activity/Vol] 24 U/L Normal 14-36 [facility] Comment on above: Performed By: #### L IPID, CMP, TSH #### [facility] [address] [place] [address] Dr. Scooby Irvin Bilirubin [Mass/Vol] 0.5 mg/dL Normal 0.2-1.3 [facility] Comment on above: Performed By: #### L IPID, CMP, TSH #### [facility] [address] [place] [address] Dr. Scooby Irvin Calcium [Mass/Vol] 9.3 mg/dL Normal 8.4-10.2 [facility] Comment on above: Performed By: #### L IPID, CMP, TSH #### [facility] [address] [place] [address] Dr. Scooby Irvin Chloride [Moles/Vol] 105 mmol/L Normal 98-107 [facility] Comment on above: Performed By: #### L IPID, CMP, TSH #### [facility] [address] [place] [address] Dr. Scooby Irvin CO2 [Moles/Vol] 26.2 mmol/L Normal 22.0-30.0 [facility] Comment on above: Performed By: #### L IPID, CMP, TSH #### [facility] [address] [address] [address] Scooby Irvin Creatinine [Mass/Vol] 0.83 mg/dL Normal 0.52-1.04 [facility] Comment on above: Performed By: #### L IPID, CMP, TSH #### [facility] [address] [address] [address] Scooby Irvin EGFR-AF CENTRAL AFRICAN >60 Normal >=60 [facility] Comment on above: Performed By: #### L IPID, CMP, TSH #### [facility] [address] [address] [address] Scooby Irvin EGFR-NON AF CENTRAL AFRICAN >60 Normal >=60 [facility] Comment on above: Performed By: #### L IPID, CMP, TSH #### [facility] [address] [address] [address] Scooby Irvin Globulin (S) [Mass/Vol] 3.8 g/dL Normal [facility] Comment on above: Performed By: #### L IPID, CMP, TSH #### [facility] [address] [address] [address] Scooby Irvin Glucose [Mass/Vol] 112 mg/dL Critically high 74-106 [facility] Comment on above: Performed By: #### L IPID, CMP, TSH #### [facility] [address] [address] [address] Scooby Irvin Potassium [Moles/Vol] 4.0 mmol/L Normal 3.4-5.0 [facility] Comment on above: Performed By: #### L IPID, CMP, TSH #### [facility] [address] [address] [address] Scooby Irvin Protein [Mass/Vol] 7.8 g/dL Normal 6.1-8.2 [facility] Comment on above: Performed By: #### L IPID, CMP, TSH #### [facility] [address] [address] [address] Scooby Irvin Sodium [Moles/Vol] 139 mmol/L Normal 137-145 [facility] Comment on above: Performed By: #### L IPID, CMP, TSH #### [facility] [address] [address] [address] Scooby Irvin Urea nitrogen [Mass/Vol] 15.0 mg/dL Normal 7.0-17.0 [facility] Comment on above: Performed By: #### L IPID, CMP, TSH #### [facility] [address] [address] [address] Scooby Irvin Urea nitrogen/Creatinine [Mass ratio] 18.1 mg/mg Normal [facility] Comment on above: Performed By: #### L IPID, CMP, TSH #### [facility] [address] [place] [address] Dr. Scooby Irvin TSHon 03-09-2021 TSH 2.761 uIU/mL Normal 0.470-4.68 0 [facility] Comment on above: Performed By: #### L IPID, CMP, TSH #### [facility] [address] [place] [address] Dr. Scooby Irvin TSH RANGE SEE BELOW Normal [facility] Comment on above: Result Comment: <0.3 4 UIU/ml HYPERTHYROID 0.34-5.60 UIU/ml EUTHYROID >5.60 UIU/ml HYPOTHYROID Performed By: #### L IPID, CMP, TSH #### [facility] [address] [place] [address] Dr. Scooby Irvin Vital Signs Date Time Vital Sign Value Performing Clinician Facility 09-30-2024 09:54-0400 Body height 140.97 cm Laurita Morales MD Work Phone: [facility] 09-30-2024 09:54-0400 Body mass index (BMI) [Ratio] 37.5 kg/m2 Laurita Morales MD Work Phone: [facility] 09-30-2024 09:54-0400 Body weight 74.6 kg Laurita Morales MD Work Phone: [facility] 06-23-2024 13:30-0400 Body height 149.9 cm Dolly ORR Work Phone: [facility] 06-23-2024 13:30-0400 Body mass index (BMI) [Ratio] 32.11 kg/m2 Dolly ORR Work Phone: [facility] 06-23-2024 13:30-0400 Body weight 72.12 kg Dolly ORR Work Phone: [facility] 04-21-2024 08:53-0400 Body height 140.[address] [facility] 04-21-2024 08:53-0400 Body mass index (BMI) [Ratio] 36.5 kg/m2 [facility] 04-21-2024 08:53-0400 Body weight 72.[address] [facility] 04-21-2024 08:53-0400 Diastolic blood pressure 70 mm[Hg] [facility] 04-21-2024 08:53-0400 Heart rate 80 /min [facility] 04-21-2024 08:53-0400 Systolic blood pressure 128 mm[Hg] [facility] 03-20-2024 10:54-0500 Blood Pressure Location Salazar Sarmini [facility] 03-20-2024 10:54-0500 Diastolic blood pressure 74 mm[Hg] Salazar Sarmini [facility] 03-20-2024 10:54-0500 Heart rate 71 /min Salazar Sarmini [facility] 03-20-2024 10:54-0500 Systolic blood pressure 129 mm[Hg] Salazar Sarmini [facility] 01-30-2024 13:46-0500 Diastolic blood pressure 82 mm[Hg] Salazar Sarmini [facility] 01-30-2024 13:46-0500 Mean blood pressure 104 mm[Hg] Salazar Sarmini [facility] 01-30-2024 13:46-0500 Systolic blood pressure 148 mm[Hg] Salazar Sarmini [facility] 01-30-2024 13:41-0500 Blood Pressure Location Salazar Sarmini [facility] 01-30-2024 13:41-0500 Diastolic blood pressure 85 mm[Hg] Salazar Sarmini [facility] 01-30-2024 13:41-0500 Heart rate 80 /min Salazar Sarmini [facility] 01-30-2024 13:41-0500 Systolic blood pressure 157 mm[Hg] Salazar Sarmini [facility] 01-15-2024 13:25-0500 Diastolic blood pressure 86 mm[Hg] Salazar Sarmini [facility] 01-15-2024 13:25-0500 Heart rate 79 /min Salazar Sarmini [facility] 01-15-2024 13:25-0500 Mean blood pressure 108 mm[Hg] Salazar Sarmini [facility] 01-15-2024 13:25-0500 Respiratory rate 17 /min Salazar Sarmini [facility] 01-15-2024 13:25-0500 SaO2% (BldA) [Mass fraction] 96 % Salazar Sarmini [facility] 01-15-2024 13:25-0500 Systolic blood pressure 153 mm[Hg] Salazar Sarmini [facility] 01-15-2024 13:15-0500 Diastolic blood pressure 81 mm[Hg] Salazar Sarmini [facility] 01-15-2024 13:15-0500 Heart rate 79 /min Salazar Sarmini [facility] 01-15-2024 13:15-0500 Mean blood pressure 103 mm[Hg] Salazar Sarmini [facility] 01-15-2024 13:15-0500 Respiratory rate 17 /min Salazar Sarmini [facility] 01-15-2024 13:15-0500 SaO2% (BldA) [Mass fraction] 96 % Salazar Sarmini [facility] 01-15-2024 13:15-0500 Systolic blood pressure 148 mm[Hg] Salzaar Sarmini [facility] 01-15-2024 13:00-0500 Diastolic blood pressure 70 mm[Hg] Salazar Sarmini [facility] 01-15-2024 13:00-0500 Heart rate 72 /min Salazar Sarmini [facility] 01-15-2024 13:00-0500 Mean blood pressure 93 mm[Hg] Salazar Sarmini [facility] 01-15-2024 13:00-0500 SaO2% (BldA) [Mass fraction] 97 % Salazar Sarmini [facility] 01-15-2024 13:00-0500 Systolic blood pressure 140 mm[Hg] Salazar Sarmini [facility] 01-15-2024 12:50-0500 Body temperature 98.24 [degF] Salazar Sarmini [facility] 01-15-2024 12:44-0500 Respiratory rate 18 /min Salazar Sarmini [facility] 01-15-2024 12:40-0500 Respiratory rate 19 /min Salazar Sarmini [facility] 01-15-2024 12:35-0500 Respiratory rate 19 /min Salazar Sarmini [facility] 01-15-2024 10:59-0500 Blood Pressure Location Saalzar Sarmini [facility] 01-15-2024 10:59-0500 Body temperature 98.24 [degF] Salazar Sarmini [facility] 12-04-2023 08:58-0400 Blood Pressure Location Salazar Sarmini [facility] 12-04-2023 08:58-0400 Diastolic blood pressure 84 mm[Hg] Salazar Sarmini [facility] 12-04-2023 08:58-0400 Heart rate 84 /min Salazar Sarmini [facility] 12-04-2023 08:58-0400 Respiratory rate 16 /min Salazar Sarmini [facility] 12-04-2023 08:58-0400 Systolic blood pressure 156 mm[Hg] Salazar Sarmini [facility] 12-04-2023 08:49-0400 Blood Pressure Location [facility] 12-04-2023 08:49-0400 Respiratory rate 16 /min [facility] 09-04-2022 09:00-0400 Body height 140.97 cm Laurita Morales Other [facility] Other 09-04-2022 09:00-0400 Body mass index (BMI) [Ratio] 36.74 kg/m2 Laurita Morales Other [facility] Other 09-04-2022 09:00-0400 Body weight 73.03 kg Laurita Morales Other [facility] Other 09-04-2022 09:00-0400 Diastolic blood pressure 78 mm[Hg] Laurita Morales Other [facility] Other 09-04-2022 09:00-0400 SaO2% (BldA) [Mass fraction] 97 % Laurita Morales Other [facility] Other 09-04-2022 09:00-0400 Systolic blood pressure 132 mm[Hg] Laurita Morales Other [facility] Other 03-01-2022 10:30-0500 Body height 140.97 cm Laurita Morales Other [facility] Other 03-01-2022 10:30-0500 Body mass index (BMI) [Ratio] 36.06 kg/m2 Laurita Morales Other [facility] Other 03-01-2022 10:30-0500 Body weight 71.67 kg Laurita Morales Other [facility] Other 03-01-2022 10:30-0500 Diastolic blood pressure 84 mm[Hg] Laurita Morales Other [facility] Other 03-01-2022 10:30-0500 SaO2% (BldA) [Mass fraction] 98 % Laurita Morales Other [facility] Other 03-01-2022 10:30-0500 Systolic blood pressure 132 mm[Hg] Laurita Morales Other [facility] Other 11-08-2021 10:17-0400 Diastolic blood pressure 74 mm[Hg] Farooq SALAM [facility] 11-08-2021 10:17-0400 Mean blood pressure 99 mm[Hg] Farooq SALAM [facility] 11-08-2021 10:17-0400 Systolic blood pressure 148 mm[Hg] Farooq SALAM [facility] 11-08-2021 10:15-0400 Blood Pressure Location Farooq SALAM [facility] 11-08-2021 10:15-0400 Diastolic blood pressure 95 mm[Hg] Farooq SALAM [facility] 11-08-2021 10:15-0400 Heart rate 78 /min Farooq SALAM [facility] 11-08-2021 10:15-0400 Respiratory rate 16 /min Farooq SALAM [facility] 11-08-2021 10:15-0400 Systolic blood pressure 159 mm[Hg] Farooq SALAM [facility] 05-10-2021 11:11-0400 Diastolic blood pressure 90 mm[Hg] Farooq SALAM [facility] 05-10-2021 11:11-0400 Systolic blood pressure 180 mm[Hg] Farooq SALAM [facility] Encounters Encounter Date Encounter Type Care Provider Facility Start: 09-30-2024 End: 09-30-2024 ambulatory Laurita Morales MD Work Phone: [facility] Work Phone: Start: 09-30-2024 End: 09-30-2024 Patient encounter procedure [facility] Work Phone: Start: 08-20-2024 End: 08-20-2024 Bamboo [...] 08-10-2024 End: 08-10-2024 ambulatory Zulay Cook MD Facility:[facility] Start: 07-22-2024 End: 07-22-2024 Bamboo flowsheet Dolly ORR Work Phone: [facility] Start: 07-22-2024 End: 07-22-2024 Bamboo flowsheet Dolly Veras PA Work Phone: [facility] Start: 07-22-2024 End: 07-22-2024 Postop follow up visit related to original px Dolly ORR Work Phone: [facility] Comment on above: S/P right knee arthr oscopy (Primary Dx) Start: 07-22-2024 End: 07-22-2024 ambulatory DOLLY VERAS Not Available Start: 07-03-2024 End: 07-06-2024 Refill Abhi Ramires [employer] Work Phone: [facility] Comment on above: Acute medial [...] Clinisync Result Encounter Dolly ORR Work Phone: [facility] External Department Unsolicited Start: 06-24-2024 End: 06-24-2024 Clinisync Result Encounter Dolly ORR Work Phone: [facility] External Department Unsolicited Start: 06-23-2024 End: 06-23-2024 Bamboo flowsheet Dolly ORR Work Phone: [facility] Start: 06-23-2024 End: 06-23-2024 Bamboo flowsheet Dolly ORR Work Phone: [facility] Start: 06-23-2024 End: 06-23-2024 Patient encounter procedure Dolly ORR Work Phone: [facility] Comment on above: Pre-op examination [...] Facility: [facility] Start: 04-21-2024 End: 04-21-2024 ambulatory [facility] Work Phone: Start: 04-21-2024 End: 04-21-2024 Patient encounter procedure [facility] Work Phone: Start: 04-15-2024 End: [...] 03-20-2024 End: 03-20-2024 ambulatory Salazar Talal Sarmini Facility:[facility] Start: 03-20-2024 End: 03-20-2024 Patient encounter procedure Salazar Bradenal Sarmini [facility] Start: 03-18-2024 End: 03-18-2024 Office outpatient visit 15 minutes Jr. Larissa Guerrero DO Work Phone: [facility] Comment on above: Left knee pain, unsp ecified chronicity (Primary Dx); Internal derangement of left knee; Arthritis of left knee Start: 03-18-2024 End: 03-18-2024 ambulatory LARISSA CABRERA Not Available Start: 03-02-2024 End: 03-02-2024 Telephone encounter Adali Giordano [employer] Work Phone: [facility] Comment on above: MRI Start: 02-17-2024 End: 02-17-2024 Bamboo flowsheet Adali Pompa Apling [employer] Work Phone: [facility] Start: 02-17-2024 End: 02-17-2024 Bamboo flowsheet Adali Pompa Apling [employer] Work Phone: [facility] Start: 02-17-2024 End: 02-17-2024 Office outpatient visit 15 minutes Adali Pompa Apling [employer] Work Phone: [facility] Comment on above: S/P left knee arthro scopy (Primary Dx); Left knee pain, unspecified chronicity; Arthritis of left knee; Internal derangement of left knee Start: 02-17-2024 End: 02-17-2024 ambulatory ADALI B APLING Not Available Start: 01-30-2024 End: 01-30-2024 ambulatory Salazar Talal Sarmini Facility:[facility] Start: 01-30-2024 End: 01-30-2024 Patient encounter procedure Martin Felicianoal Deepti [facility] Start: 01-20-2024 End: 01-20-2024 Bamboo flowsheet Adali Giordano PRISON GUARD Work Phone: [facility] Start: 01-20-2024 End: 01-20-2024 Bamboo flowsheet Adali Giordano PRISON GUARD Work Phone: [facility] Start: 01-20-2024 End: 01-20-2024 Office outpatient visit 25 minutes Adali Giordano [employer] Work Phone: [facility] Comment on above: S/P left knee arthro scopy (Primary Dx); Left knee pain, unspecified chronicity; Arthritis of left knee Start: 01-20-2024 End: 01-20-2024 ambulatory ADALI GIORDANO Not Available Start: 01-15-2024 End: 01-15-2024 Patient encounter procedure Martin Tatum [facility] Start: 12-31-2023 End: 12-31-2023 Bamboo flowsheet Abhi Ramires PRISON GUARD Work Phone: [facility] Start: 12-31-2023 End: 12-31-2023 Bamboo flowsheet Abhi Ramires PRISON GUARD Work Phone: [facility] Start: 12-31-2023 End: 12-31-2023 Postop follow up visit related to original px Abhi Ramires PRISON GUARD Work Phone: [facility] Comment on above: S/P left knee arthro scopy (Primary Dx); Left knee pain, unspecified chronicity Start: 12-31-2023 End: 12-31-2023 ambulatory ABHI RAMIRES Not Available Start: 12-06-2023 End: 12-06-2023 ambulatory Salazar Talal Sarmini Facility:[facility] Start: 12-06-2023 End: 12-06-2023 Lab Drop off Salazar Talal Levymini [facility] Start: 12-04-2023 End: 12-04-2023 ambulatory Salazar Talal Sarmini Facility:[facility] Start: 12-04-2023 End: 12-04-2023 Patient encounter procedure Salazar Talal Sarmini [facility] Start: 12-04-2023 ambulatory Salazar Talal Levymini Facility:[facility] Start: 12-04-2023 End: 12-04-2023 Patient encounter procedure Salazar Talal Sarmini [facility] Start: 11-26-2023 ambulatory Salazar Levymini Facili ty:[facility] Start: 11-13-2023 End: 11-13-2023 Bamboo flowsheet Adali Giordano PRISON GUARD Work Phone: [facility] Start: 11-13-2023 End: 11-13-2023 Bamboo flowsheet Adlai Giordano PRISON GUARD Work Phone: [facility] Start: 11-13-2023 End: 11-13-2023 Postop follow up visit related to original px Adali Giordano PRISON GUARD Work Phone: [facility] Comment on above: Arthritis of left kn ee (Primary Dx); S/P left knee arthroscopy Start: 11-13-2023 End: 11-13-2023 ambulatory ADALI GIORDANO Not Available Start: 10-16-2023 End: 10-16-2023 Bamboo flowsheet Adali Giordano PRISON GUARD Work Phone: [facility] Start: 10-16-2023 End: 10-16-2023 Bamboo flowsheet Adali Giordano PRISON GUARD Work Phone: [facility] Start: 10-16-2023 End: 10-16-2023 Postop follow up visit related to original px Adali Giordano PRISON GUARD Work Phone: [facility] Comment on above: Arthritis of left kn ee (Primary Dx); S/P left knee arthroscopy Start: 10-16-2023 End: 10-16-2023 ambulatory ADALI GIORDANO Not Available Start: 10-08-2023 End: 10-08-2023 Refill Abhi Ramires PRISON GUARD Work Phone: [facility] Comment on above: Post-op pain (Primar y Dx) Start: 09-10-2023 End: 09-10-2023 ambulatory DANIELLE Fish JOHN Not Available Start: 09-09-2023 Patient encounter procedure [facility] Start: 08-26-2023 End: 08-26-2023 ambulatory ADALI Pompa ANNETTE Not Available Start: 03-07-2023 End: 03-07-2023 ambulatory Laurita Morales Other [facility] Other Start: 03-07-2023 Office outpatient vi sit 15 minutes Laurita Morales [facility] Start: 09-20-2022 End: 09-20-2022 ambulatory Laurita Morales Other [facility] Other Start: 09-20-2022 Telephone encounter Laurita Morales [facility] Start: 09-04-2022 End: 09-04-2022 ambulatory Laurita Morales Other [facility] Other Start: 09-04-2022 Patient encounter procedure Laurita Morales [facility] Start: 04-19-[address] LAURITA MORALES Facil ity:[facility] Start: 03-01-2022 End: 03-01-2022 ambulatory Laurita Morales Other [facility] Other Start: 03-01-2022 Office outpatient vi sit 15 minutes Laurita Morales [facility] Start: 01-18-2022 End: 01-19-[address] LAURITA MORALES Facility:[facility] Start: 11-21-2021 End: 11-22-2021 ambulatory CAPRI FULLER Facility:[facility] Start: 11-08-2021 End: 11-08-2021 Patient encounter procedure Capri FULLER [facility] Start: 10-19-2021 End: 10-20-[address] LAURITA MORALES Facility:[facility] Start: 09-27-2021 End: 09-28-[address] LAURITA MORALES Facility:[facility] Start: 09-26-2021 End: 09-26-[address] LAURITA MORALES Facility:[facility] Start: 09-25-2021 Encounter for preprocedural laboratory examination DR RADHA IRAHETA [facility] Start: 09-22-2021 End: 09-23-[address] LAURITA MORALES Facility:[facility] Start: 09-22-2021 End: 09-23-2021 Encounter for preprocedural laboratory examination DR LAURITA MORALES Facility:[facility] Start: 09-11-[address] LAURITA MORALES Facil ity:[facility] Start: 09-06-2021 End: 09-07-2021 ambulatory ROBERTO MCNALLY Facility:[facility] Start: 08-30-2021 Adult health examination Malia Morales Other [facility] Other Start: 06-22-2021 End: 06-23-2021 ambulatory CAPRI FULLER Facility:[facility] Start: 05-31-2021 End: 05-31-2021 ambulatory Luis Gutierrez Facility:[facility] Start: 05-26-2021 End: 05-26-2021 ambulatory Laurita Morales Facility:[facility] Start: 05-26-2021 End: 05-26-2021 Patient encounter procedure MD Cy Sears Work Phone: [facility] Start: 05-22-2021 End: 05-23-[address] LAURITA MORALES Facility:[facility] Start: 05-10-2021 End: 05-10-2021 Patient encounter procedure Farooq SALAM [facility] Start: 05-04-2021 End: 05-04-2021 ambulatory Cy Sears Facility:[facility] Start: 05-04-2021 End: 05-04-2021 Patient encounter procedure MD Cy Sears Work Phone: [facility] [place] Start: 04-20-2021 End: 04-21-2021 ambulatory CAPRI FULLER [...] now? N Result Comment: PERF ORMED BY: [facility] [address] [place] [address] PATHOLOGIST AIRFRAME TECHNICIAN TRICIA OSHEA M.D. Start: 02-16-2020 Colonoscopy Abhi Ramires NP Work Phone: Start: 02-16-2020 Colonoscopy w/biopsy single/multiple Capri FULLER Colonoscopy Capri FULLER History of appendectomy Muha mmad [facility] History of thyroidectomy [facility] ammad [facility] Screening for malign ant neoplasm of breast Laurita Morales Other Plan of Treatment Date Care Activity Detail Author Start: 01-14-2034 Screening for malignant neoplasm of colon [facility] Start: 02-15-2030 Screening for malignant neoplasm of colon [facility] Start: 10-12-2024 Influenza vaccination Influenza Vacc ine (#1) [facility] Start: 09-30-2024 Patient referral [facility] Work Phone: Start: 08-20-2024 End: 08-20-2024 Patient encounter procedure [facility] Comment on above: S/P right knee arthr oscopy (Primary Dx) Start: 07-22-2024 End: 07-22-2024 Patient encounter procedure [facility] Comment on above: S/P right knee arthr oscopy (Primary Dx) Start: 07-21-2024 End: 07-21-2024 Patient encounter procedure 07/21/2024 11:15 AM EDT Office Visit [facility] [address] [place] [address] Dolly Veras PA [address] [place] [address] [facility] Start: 06-30-2024 End: 06-30-2024 ambulatory 06/30/2024 9:30 AM EDT Evaluation [facility] [address] [place] [id number] Sofia Bull, PT [facility] Start: 06-23-2024 End: 06-23-2025 Basic metabolic 1998 panel - Serum or Plasma Basic metabolic panel Lab Routine Pre-op examination Expected: 06/23/2024 (Approximate), Expires: 06/23/2025 [facility] Work Phone: Comment on above: Expected: 06/23/2024 (Approximate), Expires: 06/23/2025 Start: 06-23-2024 End: 06-23-2024 Patient encounter procedure [facility] Comment on above: Pre-op examination ( Primary Dx) Start: 05-13-2024 End: 05-13-2024 Patient encounter procedure [facility] Comment on above: Arrived Start: 04-15-2024 End: 04-15-2024 Patient encounter procedure 04/15/2024 2:15 PM EST Office Visit [facility] [address] [place] [address] Jr. Larissa Guerrero DO [address] [place] [address] Acute pain of left knee [facility] [...] ORTHOPAEDICS [address] [place] [id number] Adali Giordano NP [address] [place] [address] S/P left knee arthroscopy (Primary Dx); Left [...] [facility] [address] [place] [address] Abhi Ramires, PRISON GUARD [address] [place] [address] Arrived [facility] Comment on above: Arrived Start: 11-13-2023 End: 11-13-2023 Patient encounter procedure [facility] Comment on above: Arthritis of left kn ee (Primary Dx); S/P left knee arthroscopy Start: 10-16-2023 End: 10-16-2023 Patient encounter procedure [facility] Comment on above: Arrived Start: 10-13-2023 Influenza vaccination Influenza Vacc ine (#1) [facility] Start: 10-09-2023 End: 10-09-2023 Patient encounter procedure 10/09/2023 11:30 AM EDT Procedure Visit [facility] Danielle Curran DO [address] [place] [address] [facility] Start: 1950 Screening for malignant neoplasm of colon [facility] Patient referral [facility] Work Phone: XR Lumbar spine Views [facility] Immunizations Immunization Date Immunization Notes Care Provider Fa anibal 11-13-2023 influenza virus vaccine, unspecified formulation Martin Tatum [facility] 12-03-2022 ABRYSVO - Respirator y syncytial virus (RSV), vaccine, bivalent, protein subunit RSV prefusion F, diluent reconstituted, 0.5 mL, PF Abhi Katie PRISON GUARD Work Phone: [facility] 12-03-2022 SARS-COV-2 (COVID-19 ) vaccine, mRNA, spike protein, LNP, PF, 50 mcg/0.5 mL Abhi Ramires PRISON GUARD Work Phone: [facility] 11-07-2022 Influenza, Seasonal, Quadrivalent, Adjuvanted Abhi Katie PRISON GUARD Work Phone: [facility] 11-07-2022 influenza virus vaccine, unspecified formulation Abhi Katie PRISON GUARD Work Phone: [facility] 10-01-2022 zoster vaccine recombinant Abhi Katie PRISON GUARD Work Phone: [facility] 07-18-2022 zoster vaccine recombinant Abhi Ramires PRISON GUARD Work Phone: [facility] 11-21-2021 influenza virus vaccine, unspecified formulation Salazar Levylucero [facility] 11-21-2021 Seasonal trivalent influenza vaccine, adjuvanted, preservative free Abhi Katie PRISON GUARD Work Phone: [facility] 10-27-2021 SARS-CoV-2 (COVID-19 ) [id number] Martin Tatum [facility] Comment on above: Result Comment: 2023: [id number] 12-09-2020 COVID-19 mRNA-1273 (Moderna) MD Cy Sears Work Phone: [facility] Comment on above: Result Comment: 2023: TPV70 11-15-2020 influenza virus vaccine, split virus (incl. purified surface antigen) Laurita Morales Other [facility] Other 11-15-2020 influenza virus vaccine, unspecified formulation Abhi Ramires PRISON GUARD Work Phone: [facility] 11-11-2020 influenza virus vaccine, unspecified formulation Capri FULLER [facility] 04-26-2020 COVID-19 mRNA-1273 (Moderna) MD Cy Sears Work Phone: [facility] 03-31-2020 SARS-CoV-2 (COVID-19 ) mRNA-1273 vaccine Salazar Sarmini [facility] 03-23-2020 COVID-19 mRNA-1273 (Moderna) MD Cy Sears Work Phone: [facility] 11-20-2019 influenza virus vaccine, split virus (incl. purified surface antigen) Laurita Morales Other [facility] Other 11-20-2019 influenza virus vaccine, unspecified formulation Abhi Ramires PRISON GUARD Work Phone: [facility] 07-09-2018 zoster vaccine, live Abhi O sonalen PRISON GUARD Work Phone: [facility] 11-20-2017 pneumococcal polysaccharide vaccine, 23 valent Abhi Katie PRISON GUARD Work Phone: [facility] 11-14-2017 influenza virus vaccine, unspecified formulation Salazar Sarmini [facility] 11-14-2017 pneumococcal polysaccharide vaccine, 23 valent Abhi Katie PRISON GUARD Work Phone: [facility] 11-14-2017 Seasonal trivalent influenza vaccine, adjuvanted, preservative free Abhi Ramires PRISON GUARD Work Phone: [facility] 10-24-2016 influenza virus vaccine, split virus (incl. purified surface antigen) Laurita Morales Other [facility] Other 10-24-2016 influenza virus vaccine, unspecified formulation Salazar Sarmini [facility] 10-24-2016 influenza, high dose seasonal, preservative-free Abhi Ramires PRISON GUARD Work Phone: [facility] 10-24-2016 pneumococcal conjuga te vaccine, 13 valent Laurita Morales Other [facility] Other 11-08-2015 influenza virus vaccine, unspecified formulation Salazar Sarmini [facility] 11-08-2015 Seasonal trivalent influenza vaccine, adjuvanted, preservative free Abhi Ramires NP Work Phone: [facility] 11-16-2014 influenza virus vaccine, unspecified formulation Salazar Sarmini [facility] 11-16-2014 influenza, seasonal, injectable, preservative free Abhi Ramires NP Work Phone: [facility] 08-31-2014 tetanus and diphther ia toxoids, adsorbed, preservative free, for adult use (5 Lf of tetanus toxoid and 2 Lf of diphtheria toxoid) Abhi Ramires NP Work Phone: [facility] 08-31-2014 tetanus toxoid, reduced diphtheria toxoid, and acellular pertussis vaccine, adsorbed Laurita Morales Other [facility] Other 11-30-2013 pneumococcal polysaccharide vaccine, 23 valent Laurita Morales Other [facility] Other 03-24-2013 zoster vaccine, live Abhi daly NP Work Phone: [facility] 11-11-2012 influenza virus vaccine, unspecified formulation Salazar Levymini [facility] 11-11-2012 influenza, seasonal, injectable Abhi Ramires NP Work Phone: [facility] 01-29-2003 hepatitis B vaccine, adult dosage Abhi Ramires NP Work Phone: [facility] 08-10-2002 hepatitis B vaccine, adult dosage Abhi Ramires NP Work Phone: [facility] 07-08-2002 hepatitis B vaccine, adult dosage Abhi Ramires NP Work Phone: [facility] 07-08-2002 TD(adult) unspecifie d formulation; Translations: [Td(adult) unspecified formulation] Abhi Ramires PRISON GUARD Work Phone: [facility] NEGATED: Highlighted row has not occurred!11-08-2021 influenza virus vaccine, unspecified formulation Capri FULLER [facility] Payers Date Payer Category Payer Self-pay [id number] 2021 Private Health Insurance [id number] 2021 Private Health Insurance CLI [id number] 2013 Medicare [id number] 1959 Medicare [id number] 1959 Unknown [id number] 1948 Unknown [id number] 2.16.84 0.1.573500.3.579.2.593 1948 Unknown [id number] 2.16.84 0.1.464271.3.579.2.593 1948 Unknown [id number] 2.16.84 0.1.025542.3.579.2.593 1948 Unknown [id number] 2.16.84 0.1.871963.3.579.2.593 1948 Unknown [id number] 2.16.84 0.1.485476.3.579.2.593 1948 Unknown [id number] 2.16.84 0.1.843781.3.579.2.593 1948 Unknown [id number] 2.16.84 0.1.510177.3.579.2.593 1948 Unknown [id number] 2.16.84 0.1.937241.3.579.2.593 1948 Unknown [id number] 2.16.84 0.1.710178.3.579.2.593 1948 Unknown [id number] 2.16.84 0.1.617613.3.579.2.593 1948 Unknown [id number] 2.16.84 0.1.651268.3.579.2.593 1948 Unknown [id number] 2.16.84 0.1.744871.3.579.2.593 1948 Unknown [id number] 2.16.84 0.1.283464.3.579.2.593 1948 Unknown [id number] 2.16.84 0.1.535264.3.579.2.593 1948 Unknown [id number] 2.16.84 0.1.272224.3.579.2.593 1948 Unknown [id number] 2.16.84 0.1.831769.3.579.2.593 1948 Unknown [id number] 2.16.84 0.1.455856.3.579.2.593 1948 Unknown [id number] 2.16.8 40.1.563110.3.579.2.727 1948 Unknown [id number] 2.16.8 40.1.685730.3.579.2.727 1948 Unknown [id number] 2.16.8 40.1.970738.3.579.2.727 1948 Unknown [id number] 2.16.8 40.1.282429.3.579.2.727 1948 Unknown [id number] 2.16.8 40.1.095410.3.579.2.1259 1948 Unknown [id number] 2.16.8 40.1.628536.3.579.2.1259 1948 Unknown [id number] 2.16.84 0.1.158780.3.579.2.125 1948 Unknown [id number] 2.16.84 0.1.119876.3.579.2.1259 1948 Unknown [id number] 2.16.84 0.1.348084.3.579.2.9 1948 Unknown [id number] 2.16.84 0.1.180090.3.579.2.1259 1948 Unknown [id number] 2.16.84 0.1.257506.3.579.2.1258 1948 Unknown [id number] 2.16.84 0.1.575135.3.579.2.1259 1948 Unknown [id number] 2.16.84 0.1.694494.3.579.2.1258 1948 Unknown [id number] 2.16.84 0.1.096862.3.579.2.1259 1948 Unknown [id number] 2.16.84 0.1.770207.3.579.2.125 1948 Unknown [id number] 2.16.84 0.1.018300.3.579.2.1259 1948 Unknown [id number] 2.16.84 0.1.668261.3.579.2.1258 1948 Unknown [id number] 2.16.84 0.1.895284.3.579.2.1259 1948 Unknown [id number] 2.16.84 0.1.643622.3.579.2.1258 1948 Unknown [id number] 2.16.84 0.1.142193.3.579.2.1259 1948 Unknown [id number] 2.16. 840.1.114532.3.579.2.196 1948 Unknown [id number] 2.16. 840.1.282707.3.579.2.196 Medicare [id number] Unknown [id number] 2.16.8 40.1.082947.3.579.2.531 Unknown [id number] 2.16.8 40.1.223526.3.579.2.531 Unknown [id number] 2.16.8 40.1.282801.3.579.2.531 Social History Date Type Detail Facility Tobacco smoking stat [facility] Unknown if ever smoked [facility] Work Phone: Start: 1950 Sex Assigned At Female [facility] Start: 05-10-2021 End: 03-20-2024 Tobacco smoking status Heavy tobacco smoker (finding) [facility] Start: 09-10-2023 End: 07-22-2024 Sex Assigned At Female [facility] Start: 05-26-2021 [facility] Start: 08-26-2023 End: 09-30-2024 Tobacco smoking status MIIS Smokes tobacco daily [facility] History of [...] [facility] Tobacco smoking status Never [facility] Start: 03-12-2023 Tobacco smoking stat us NHIS Ex-smoker (finding) [facility] Start: 04-21-2024 Sex Female (finding) [facility] Start: 06-23-2024 Alcohol Comment Occationally [facility] Functional Status Date Assessment Result Facility 03-20-2024 Functional Status N/A [facility] 01-30-2024 Functional Status N/A [facility] 01-15-2024 Functional Status N/A [facility] 12-04-2023 Functional Status N/A [facility] 11-08-2021 Functional Status N/A [facility] Clinical Notes 01-24-2021 to [...] year, seeing Dr. Marino and podiatry in [place] before being diagnosed with a pinched nerve [...] requiring urgent evaluation. Visit was preformed using [employer]-pilot plant research technician speech recognition. documented in this encounter [facility] 07-22-2024 History of Present illness Narrative Images [...] requiring urgent evaluation. Visit was preformed using [employer]-pilot plant research technician speech recognition. documented in this encounter [facility] 07-22-2024 Instructions DOMINGA Monroy - 07/22/2024 11:15 [...] than 10 mins documented in this encounter [facility] 07-03-2024 Telephone encounter Note Post op pain rx. PDMP reviewed [facility] 07-03-2024 Miscellaneous Notes Post op pain rx. PDMP reviewed documented in this encounter [address]13-2025 History of Present illness Narrative Images [...] COLONOSCOPY 01/15/24 KNEE ARTHROSCOPY W/ DEBRIDEMENT Left ESKDALE OTHER SURGICAL HISTORY Right TAMICA CORONA PUT [...] Z01.818 Basic metabolic panel [facility] Ambulatory referral to Physical [...] and proposed surgery scheduled. WALKER SENT TO [facility] IN [place] LAB WORK SENT TO [facility] PRE AUTH MEDICARE APPROVED Follow up in about 4 weeks (around 07/21/2024) for Post-Op July 22 @ 11:15 in the [place] location with Dolly Veras. documented in this encounter [facility] 05-13-2024 History of Present illness Narrative Images from the original note were not included. Jennifer appreciatedHISTORY OF PRESENT ILLNESS: EST PT Alexandra Cervantes is an 74 y.o. @ female. (EST PT) - RECHECK (R) KNEE ; S/P MDP 04/15/24 ; S/P MRI @[facility] 04/24/24 : ADMITS B/L KNEE PAIN - R>L XRAY B/L KNEE 08/26/23 IN EPIC MRI @[facility] 04/24/24 MDP 04/15/24 NO CORTISONE INJ NO PT PAIN MGMT @[facility] (BACK) (R) KNEE: S/P MDP - WITH [...] of medial meniscus noted on MRI from [facility]. Questions answered in laymen terms at the bedside. The diagnosis, home exercise plan and any ongoing restrictions/ recommendations reviewed. If unable to be reached in office, I recommend evaluation at nearest Emergency Room if any symptoms worsened or new symptoms develop for requiring urgent evaluation. documented in this encounter [facility] 03-18-2024 History of Present illness Narrative Images from the original note were not included. HISTORY OF PRESENT ILLNESS: EST PT Alexandra Cervantes is an 74 y.o. @ female. (EST PT) (LAST APPT WITH [facility]) - RECHECK (L) KNEE S/P MRI @[facility] (02/25/24) ; S/P (L) KNEE SCOPE (DR. CURRAN) (10/09/23) (5 MONTHS, 1 WK, 1 DAY) XRAY B/L KNEE 08/26/23 IN EPIC XRAY (L) KNEE (02/09/23) IN CHANGE MRI @[facility] 02/25/24 MDP 12/31/23 (50% IMPROVEMENT) CORTISONE INJ (01/20/24) (70-80% IMPROVEMENT) NO PT PAIN MANAGEMENT @ [facility] (BACK) STATES INJECTION 01/20/24 ONLY LASTED [...] requiring urgent evaluation. documented in this encounter [facility] 03-02-2024 Miscellaneous Notes Patient called and left requesting a call for here MRI results. documented in this encounter [facility] 03-02-2024 Telephone encounter Note Patient called and left requesting a call for here MRI results. [facility] 02-17-2024 History of Present illness Narrative HISTORY [...] f/u s/p MRI to be done at [facility] documented in this encounter [facility] 01-30-2024 Evaluation + Plan note Future Scheduled TestsCalprotectin, Fecal 01/30/24Calprotectin, Fecal 03/17/24Clostridium Difficile PCR 03/17/24Quantiferon-TB Plus (Client Incubated) 03/17/24Enteric Panel by PCR 03/17/24CBC w/ Auto Diff 03/20/24CBC w/ Auto Diff 03/17/24Comprehensive Metabolic Panel 03/20/24Comprehensive Metabolic Panel 03/17/24C-Reactive Protein 03/20/24C-Reactive Protein 03/17/24Hepatitis B Surface Antibody 03/17/24Hepatitis B Surface Antigen 03/17/24 [facility] 01-20-2024 History of Present illness [...] she understands this. documented in this encounter [facility] 01-15-2024 Hospital Discharge instructions Patient Education 01/15/2024 13:05:31 Gastritis, Adult, Vytq-hs-Jisq Gastritis, Adult Gastritis is irritation and swelling [...] Follow these instructions at home: Medicines Take lljw-fgn-oxirfgs and prescription medicines only as told by [...] provider. Document Revised: 06/03/2021 Document Reviewed: 06/03/2021 Social IQ (Social Influence Quotient) Patient Education 2023 [employer]. 01/15/2024 13:05:27 Endoscopy, Care After Procedure [facility] Endoscopy Care After Procedure Please read [...] blood. Document Released: 09/11/2004 Document Re-Released: 07/22/2006 [facility] Patient Information 2010 [employer]. 01/15/2024 13:05:22 Hemorrhoids, Vykl-iz-Ajxa Hemorrhoids Hemorrhoids are swollen veins that may [...] Follow these instructions at home: Medicines Take mhfv-lwc-gksktgw and prescription medicines only as told by [...] provider. Document Revised: 10/10/2022 Document Reviewed: 10/10/2022 Social IQ (Social Influence Quotient) Patient Education 2023 [employer]. 01/15/2024 13:05:13 Ulcerative Colitis, Adult Ulcerative Colitis, [...] instructions at home: Medicines and vitamins Take qijb-vuc-fbqdnka and prescription medicines only as told by [...] and water are not available, use hand junior accounting clerk. Stay up to date on your vaccinations, [...] information about ulcerative colitis at the National [place] of Diabetes and Digestive and Kidney Diseases [...] provider. Document Revised: 10/04/2020 Document Reviewed: 10/04/2020 Social IQ (Social Influence Quotient) Patient Education 2023 [employer]. 01/15/2024 13:05:09 Colonoscopy, Care After Surgery Salam [...] severe or gets worse throughout the day. [facility] 01-15-2024 Evaluation + Plan note Extrac javier from: Title:ANES Post-operative Note---General Author: Danielle Garcia MD. Date:01/15/24 Plan Transfer/Discharge: Transfer/Discharge Discharge when meets criteria ( To home ). Extracted from: Title:ANES Pre-operative Note 2022 Author:Danielle Ha Date:01/15/24 Plan [employer] Society of Anesthesiologists (ASA) physical status classification: Class II. Anesthetic Preoperative Plan: Anesthesia General. Extracted from: Title:1Preop H&P Author:Martin Tatum MD Date:01/15/24 Impression and Plan Impression: Ulcerative colitis, chronic diarrhea Plan: -EGD and Colonoscopy Future Appointments Appointment Date:01/30/2024 01:45:00 PM Scheduled Provider:Martin Tatum MD Location:[facility] Appointment Type:[facility] Follow Up Diagnostic Tests Pending * Enteric Panel by PCR 01/15/24 * Clostridium Difficile PCR 01/15/24 * Hep B Core Ab, Tot 01/15/24 * Hepatitis B Surface Antibody 01/15/24 * Hepatitis B Surface Antigen 01/15/24 * Quantiferon-TB Plus (Client Incubated) 01/15/24 [facility] [id number] History of Present illness Narrative* Abhi Ramires, [...] develop for requiring urgent evaluation. Abhi Ramires APRN-EDUCATION PROGRAM ASSOCIATE documented in this encounter[facility] [id number] History of Present illness Narrative* Adali Giordano [...] do activities as tolerated. documented in this [facility]08-28-2024 History of Present illness Narrative* Adali Giordano [...] as tolerated, f/U prn documented in this [facility]08-28-2024 History of Present illness Narrative* Jr. Larissa [...] for requiring urgent evaluation. documented in this [facility]08-27-2024 Telephone encounter Note* Telephone Encounter - Abhi Ramires NP - 10/08/2023 3:02 PM EDT Post op pain rx. PDMP reviewed [facility] Miscellaneous Notes* Telephone Encounter - Abhi Ramires NP - 10/08/2023 3:02 PM EDT Post op pain rx. PDMP reviewed documented in this [facility]01-25-2024 Evaluation note* Encounter Date Diagnosis Assessment Notes [...] continue to monitor through routine blood work [facility] 08-10-2023 Evaluation note* Encounter Date Diagnosis Assessment Notes Treatment Notes Treatment Clinical Notes Sep, Right foot pain (ICD-10 - M79.671) [facility] 07-25-2023 Evaluation note* Encounter Date Diagnosis [...] - E03.9) Chronic problem due for labs. [facility] Other 01-19-2023 Evaluation note* Encounter Date Diagnosis [...] - E78.5) Due for labs in summer. [facility] Other [id number] NoteCONSULTATION PROCEDURE DATE: 01/18/2022 PREOPERATIVE DIAGNOSIS: Left [...] will be followed up in the office.[id number] NoteCONSULTATION CONSULTATION DATE: 01/18/2022 HISTORY OF PRESENT [...] in three months' time, unless otherwise indicated.[facility] [id number] Evaluation + Plan note Diagnostic Tests Pending * CBC w/ Auto Diff 11/08/21 * Comprehensive Metabolic Panel 11/08/21 [facility] 09-08-2022 NoteCONSULTATION PROCEDURE [...] will be followed up in the office.[facility] 10-19-2021 NoteCONSULTATION CONSULTATION DATE: 10/19/2021 This [...] in three months' time unless otherwise indicated.[facility] [id number] NoteCONSULTATION CONSULTATION DATE: 09/06/2021 HISTORY OF PRESENT [...] 8/10. She has been following up with [facility] and had a benign fibroid tumor [...] procedure, and patient agrees to move forward.[facility] [id number] NoteCONSULTATION PAIN MANAGEMENT CONSULTATION HISTORY: This is [...] of care and will call when needed. [facility] Signed and Approved by: ROBERTO MCNALLY . 04/27/2021 12:41:00[facility]12-14-2021 Hospital Discharge instructions Follow Up Care 01/24/2021 10:04:31 With:JANINA ALARCON, LENORE Farooq, [facility] Address: [facility] [address] [place], [place] [address]dict [place] [address]- When:6 months [facility] Evaluation + Plan note Future Appointments Appointment Date:11/08/2021 10:15:00 AM Scheduled Provider:Capri FULLER MD Location:[facility] Digestive [facility] Appointment Type:BAD Follow Up Future Scheduled Tests Laboratory* CBC w/ Indices 07/25/20 * Comprehensive Metabolic Panel 07/25/20 [facility] evaluation + Plan note Future Appointments Appointment Date:01/15/2024 12:00:00 PM Scheduled Provider: Location:[facility] Appointment Type:Surgery FT Appointment Date:01/30/2024 01:45:00 PM Scheduled Provider:Martin Tatum MD Location:[facility] Appointment Type:BAD Follow Up Future Scheduled Tests Laboratory* O & P Exam, Routine 12/04/23 * Clostridium Difficile PCR 12/04/23 * Enteric Panel by PCR 12/04/23 [facility] evaluation + Plan note Future Appointments Appointment Date:01/15/2024 12:00:00 PM Scheduled Provider: Location:[facility] Appointment Type:Surgery FT Appointment Date:01/30/2024 01:45:00 PM Scheduled Provider:Martin Tatum MD Location:[facility] Appointment Type:[facility] Follow Up Diagnostic Tests Pending * Celiac Disease Comprehensive 12/04/23 Future Scheduled Tests Laboratory* O & P Exam, Routine 12/04/23 * Clostridium Difficile PCR 12/04/23 * Enteric Panel by PCR 12/04/23 [facility] evaluation + Plan note Future Appointments Appointment Date:01/15/2024 12:00:00 PM Scheduled Provider: Location:[facility] Appointment Type:Surgery FT Appointment Date:01/30/2024 01:45:00 PM Scheduled Provider:Martin Tatum MD Location:[facility] Digestive [facility] Appointment Type:BAD Follow Up Diagnostic Tests Pending * O & P Exam, Routine 12/06/23 [facility] evaluation + Plan note Future Appointments Appointment Date:04/29/2024 09:15:00 AM Scheduled Provider:Martin Tatum MD Location:[facility] Appointment Type:[facility] Follow Up Future Scheduled Tests Laboratory* Calprotectin, Fecal 01/30/24 [facility] Evaluation noteNo assessment information available [facility] Work Phone: Evaluation note* Diagnosis Arthritis [...] pancoli tis without complications acute April 8:49am [facility] Work Phone: Evaluation note* Diagnosis Acute [...] knee arthroscopy- Primary documented in this encounter [facility] HealthcareEvaluation note* Diagnosis Onset Date Resolution Status Admit Date Right foot pain acute September 302024 9:36am [facility] Work Phone: History general Narrative - Reported* Type Description Date Medical History GERD Medical History Hypothyroid Medical History Depression Surgical History Appendectomy Surgical History Tubal Ligation Surgical History Right carpal tunnel Surgical History Right finger Surgical History 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 Hospitalization History See past surgical hx [facility] Other Hospital course Narrative No data available for this section [facility] Hospital Discharge instructions No data available for this section [facility] Hospital Discharge instructionsAmbulatory Orders* Referral to Neurology Time Frame: 09/30/24, Location: None Selected [facility] Work Phone: Progress note No data available for this section [facility] Reason for visit Narrative* Consultation (Routine) - Authorized Specialty Diagnoses / Procedures Referred By Rosi wilson Referred To Contact Physical Therapy Diagnoses Pre-op examination Procedures [place] OFFICE/OUTPATIENT [facility] MDM 60 MINUTES Dolly Veras PA [address] [address] Phone: tel: fax: Sofia Bull PT Referral ID Status Reason Start Date Expiration Date Visits Requested Visits Authorized [id number] Authorized Consult and Treat 06/23/2024 12/20/2024 10 10 [facility] Healthcare Chief Complaint and Reason for [...] Right foot pain (M79 .671) Referral Organization [facility] Referring Provider First Name Laurita Referring Provider Last Name Carmen Referring Provider Specialty [facility] Referred Organization [facility] Referred Provider Seymour Johnson Referred Address [address] [place], [place],[address] Referred Provider Specialty Podiatry - S urgical [...] Luis Gutierrez DO Attending Provider Active Customer Care Manager Relationship Specialty Start Date End Date Laurita Morales MD [address] [place] [address] PCP - General Family Medicine 08/26/23 Customer Care Manager Relationship Specialty [place] [address] [place] [phone] PCP - General Family Medicine 08/26/23 Customer Care Manager Relationship Specialty Start [place] [address] [place] [phone] PCP - General Family Medicine 08/26/23 Customer Care Manager Relationship Specialty Start Date End Date Laurita Morales MD [address] [facility] [address] PCP - General Family Medicine 08/26/23 Customer Care Manager Relationship Specialty Start Date End Date Laurita Morales MD [address] [facility] [place] [address] PCP - General Family Medicine 08/26/23 Customer Care Manager Relationship Specialty Start Date End Date Laurita Morales MD [address] [facility] [place] [address] PCP - General Family Medicine 08/26/23 Customer Care Manager Relationship Specialty Start Date End Date Laurita Morales MD [address] [facility] [place] [address] PCP - General Family Medicine 08/26/23 Customer Care Manager Relationship Specialty Start Date End Date Laurita Morales MD [address] [facility] [place] [address] PCP - General Family Medicine 08/26/23 Customer Care Manager Relationship Specialty Start Date End Date Laurita Morales MD [address] [facility] [place] [address] PCP - General Family Medicine 08/26/23 Customer Care Manager Relationship Specialty Start Date End Date Laurita Morales MD [address] [facility] [place] [address] PCP - General Family Medicine 08/26/23 Customer Care Manager Relationship Specialty Start Date End Date Laurita Morales MD [address] [facility] [place] [address] PCP - General Family Medicine 08/26/23 Customer Care Manager Relationship Specialty Start Date End Date Laurita Morales MD [address] [facility] [place] [address] PCP - General Family Medicine 08/26/23 Team Status: Inactive Member Role Status Dates Laurita Morales MD Primary Care Provide r, Attending Provider Active Start: April 21, 2024 End: April 21, 2024 Customer Care Manager Relationship Specialty Start Date End Date Laurita Morales MD [address] [facility] [place] [address] PCP - General Family Medicine 08/26/23 Customer Care Manager Relationship Specialty Start Date End Date Laurita Morales MD [address] [facility] [place] [address] PCP - General Family Medicine 08/26/23 Customer Care Manager Relationship Specialty Start Date End Date Laurita Morales MD PCP - General Family Medicine 08/26/23 Customer Care Manager Relationship Specialty Start Date End Date Laurita Morales MD PCP - General Family Medicine 08/26/23 Customer Care Manager Relationship Specialty Start Date End Date Laurita Morales MD PCP - General Family Medicine 08/26/23 Customer Care Manager Relationship Specialty Start Date End Date Laurita Morales MD PCP - General Family Medicine 08/26/23 Customer Care Manager Relationship Specialty Start Date End Date Laurita Morales MD PCP - General Family Medicine 08/26/23 Customer Care Manager Relationship Specialty Start Date End Date Laurita Morales MD PCP - General Family Medicine 08/26/23 Customer Care Manager Relationship Specialty Start Date End Date Laurita Morales MD [address] [facility] [place] [address] PCP - General Family Medicine 07/16/24 Customer Care Manager Relationship Specialty Start Date End Date Laurita Morales MD [address] [place] [address] PCP - General Family Medicine 07/16/24 Customer Care Manager Relationship Specialty Start Date End Date Laurita Morales MD [address] [place] [address] PCP - General Family Medicine [...] and content) DATE CREATED AUTHOR 05/23/2021 [facility] DATE CREATED AUTHOR AUTHOR'S ORGANIZ ATION 01/23/2022 [facility] DATE CREATED AUTHOR AUTHOR'S ORGANIZ ATION 03/17/[address] [facility] DATE CREATED AUTHOR AUTHOR'S ORGANIZ ATION 12/03/2023 [facility] DATE CREATED AUTHOR AUTHOR'S ORGANIZ ATION 12/08/2023 [facility] DATE CREATED AUTHOR AUTHOR'S ORGANIZ ATION 12/10/2023 [facility] DATE CREATED AUTHOR AUTHOR'S ORGANIZ ATION 12/12/2023 [facility] DATE CREATED AUTHOR AUTHOR'S ORGANIZ ATION 01/23/2024 [facility] DATE CREATED AUTHOR AUTHOR'S ORGANIZ ATION 01/25/2024 [facility] DATE CREATED AUTHOR AUTHOR'S ORGANIZ ATION 02/03/2024 [facility] DATE CREATED AUTHOR AUTHOR'S ORGANIZ ATION 08/13/2024 [facility] DATE CREATED AUTHOR AUTHOR'S ORGANIZ ATION 08/24/2024 [facility] EPIC DATE CREATED AUTHOR AUTHOR'S ORGANIZ ATION 08/28/2024 [facility] REASON FOR VISIT (unrecogniz ed section [...] BE BASED ON THE PRIMARY CLINICAL RECORDS. [facility] [employer] provides no warranty or guarantee of the accuracy or completeness of information in this document.
[2024-10-20 08:49] LABS: Hematocrit 40.0 % (36.0-48.0); Hemoglobin 13.0 g/dL (12.0-16.0); Immature Granulocytes Abs Auto 0.01 10^3/uL (0.00-0.03); Immature Granulocytes Pct Auto 0.2 % (0.0-0.5); Lymphocytes Absolute Auto 1.1 10^3/uL (1.2-3.8); Mean Corpuscular HGB Conc 32.5 g/dL (29.9-35.2); Mean Corpuscular Hemoglobin 30.7 pg (26.7-34.0); Mean Corpuscular Volume 94.6 fL (81.0-99.0); Platelet Count 243 10^3/uL (150-450); Red Blood Count 4.23 10^6/uL (4.20-5.40); White Blood Count 6.5 10^3/uL (4.0-11.0)
[2024-10-20 11:24] LABS: Anion Gap 15.1; Carbon Dioxide 25.2 mmol/L (21.0-32.0); Chloride 101 mmol/L (98-107); Potassium 4.3 mmol/L (3.5-5.1); Sodium 137 mmol/L (136-145)
[2024-10-20 11:25] LABS: Alanine Aminotransferase 27 U/L (14-59); Albumin Globulin Ratio 1.1; Albumin Level 4.2 g/dL (3.4-5.0); Alkaline Phosphatase 82 U/L (46-116); Aspartate Amino Transferase 24 U/L (15-37); Blood Urea Nitrogen 11.0 mg/dL (7.0-18.0); Calcium 9.4 mg/dL (8.5-10.1); Estimated GFR (African America >60 (>=60 mL/min/1.73m^2); Estimated GFR (Non-African Ame >60 (>=60 mL/min/1.73m^2); Globulin 3.9 g/dL; Glucose 113 mg/dL (74-106); Total Protein 8.1 g/dL (6.4-8.2)
[2024-10-20 11:26] LABS: Cholesterol 249 mg/dL (<=200); HDL Cholesterol 78 mg/dL (40-60); Thyroid Stimulating Hormone 4.153 uIU/mL (0.358-3.740); Triglycerides 129 mg/dL (<=150); VLDL CHOLESTEROL 25.8 mg/dL
== END 2024-10-20 08:31 | disposition home or self-care (01) ==
LOC: LAB 08:30
PROVIDERS: PCP Family Medicine; Visit Provider Family Medicine
DX: Z00.00 Encounter for general adult medical examination without abnormal findings (principal); E03.9 Hypothyroidism, unspecified; E78.2 Mixed hyperlipidemia
CPT/HCPCS: 36415; 80053; 80061; 84439; 84443; 85025

== ENCOUNTER 2024-11-13 08:19 | Outpatient (OUT) | payer MEDICARE, OTHER, SELFPAY ==
--- OUTSIDE RECORDS SUMMARY | 2024-11-13 08:22 | XMS_ITS | Patient Health Record ---
Author Organization [facility] Address [address] [place] [address] Care Team Providers Care Tallier Name Role Phone Danyell Kelly M.D. Primary Care Provider Bucky Valente Godinez Unavailable [phone] Allergies No Known Allergies Reason For Referral [...] Problem Status W/U Status Risk Notes Problem 134516872974118 Primary osteoarthritis of left knee (M17.12) Active confirmed Problem [id number] Other chondrocalcinosis , left knee (M11.262) Active confirmed Problem [id number] Bilateral primar y osteoarthritis of knee (M17.0) Active confirmed Problem 113609394214630 Primary osteoarthritis of right knee (M17.11) Active confirmed Problem 341036345 NSAID long-term use (Z79.1) Active confirmed Plan Of Treatment No Information Insurance Providers Payer Name Payer Address Payer Phone Subscriber Number Group Number Insured Name Patient Relationship to Insured Coverage Start Date Coverage End Date Medicare [address] [phone] [id number] ALEXANDRA GARDNER Self - patient is the insured [employer] Senior Supplemental Insurance [address] [address] [facility] [place], [place] [id number] [phone] [id number] ALEXANDRA GARDNER Self - patient is the insured Medical (General) History Medical History History ICD Code Depression Anxiety Sleep apnea Surgical History Surgery Date(Month/Year) thyroid 3 yrs ago
--- OUTSIDE RECORDS SUMMARY | 2024-11-13 08:22 | XMS_ITS | Clinical Summary ---
Author Organization [facility] Address [address] [place] [address] Care Team Providers Care Roller Varnisher Name Role Phone Danyell Kelly MD Primary Care Provider [phone] Allergies Active Allergy Reactions Criticality Noted Date [...] Description 08/20/2024 9:30 AM EDT [facility] [address] [place] [address] Montana Veras, PA S/P right knee arthroscopy (Primary Dx) 08/20/2024 Bamboo flowsheet [facility] [address] [place] [address] Montana Veras, PA 08/20/2024 Travel from Last 3 Months Immunizations Immunization [...] ble, preservative free 11/16/2014 Influenza, trivalent, adjuvanted 11/21/2021,1005/2017,11/08/2015 Pneumococcal Conjugate PCV 13 10/24/2016 Pneumococcal Polysaccharide [...] Discontinued FOBT Discontinued Sigmoidoscopy Discontinued Insurance MEDICARE [facility] Care Teams Roller Varnisher Relationship Specialty [place] [address] [place] [address] PCP - General Family Medicine 07/16/24
--- OUTSIDE RECORDS SUMMARY | 2024-11-13 08:22 | XMS_ITS | Patient Health Record ---
Author Organization [facility] [place] Address [address] [place] [address] Care Team Providers Care Service Center Assistant Name Role Phone Danyell Kelly Primary Care [...] Problem Status W/U Status Risk Notes Problem Tinea pedis (4334936) Tinea pedis (B35.3) Active confirmed Problem Localized, primary osteoarthritis of the ankle and/or foot (170996139) Primary osteoarthrit is, right ankle and foot (M19.071) Active confirmed Problem Pain in right foot (392299527421539) Pain in right foot (M79.671) Active confirmed Problem Arthralgia of the ankle and/or foot (642354586) Right ankle pain (M25.571) Active confirmed Plan Of Treatment Pending Test Test Name Order Date MR ankle RT wo con 08/20/2023 Insurance Providers Payer Name Payer Address Payer Phone Subscriber Number Group Number Insured Name Patient Relationship to Insured Coverage Start Date Coverage End Date MEDICARE [place] [address] [phone] [id number] Tisha Cervantes Self - patient is the insured [facility] true[x] Media INSURANCE [address] [address] [place] [address] [id number] Tisha Cervantes Self - patient is the insured Medical (General) History Medical History History ICD Code GERD (gastroesophageal reflux disease) K 21.9 Hypothyroid E03.9 Depression F32.9 Surgical History Surgery Date(Month/Year) appendectomy tubal ligation right carpal tunnel right 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
--- OUTSIDE RECORDS SUMMARY | 2024-11-13 08:22 | XMS_ITS | Encounter Summary ---
Author Organization [facility] Address [address] [place] [address] Care Team Providers Care Carbon Setter Name Role Phone Danyell Kelly MD Primary Care Provider [phone] Danyell Kelly MD Primary Care Provider [phone] Encounter Details Date Type Department Care Team (Late st Contact Info) Description 03/18/2024 Orders Only [facility] [address] [place] [address] Teressa Elizondo MA Internal derangement of left [...] 8:08 AM EST) us Adali B Apling ORTHO TECH IMG MRI PROCEDURES Final Resul t documented in this encounter Visit Diagnoses Diagnosis Internal derangement of left knee documented in this encounter Care Teams Carbon Setter Relationship Specialty Start Date End Date Danyell Kelly MD PCP - General Family Medicine 08/26/23 07/15/24 Danyell Kelly MD [address] [facility] [place] [address] PCP - General Family Medicine 07/16/24 documented as of this encounter
--- OUTSIDE RECORDS SUMMARY | 2024-11-13 08:22 | XMS_ITS | Encounter Summary ---
Author Organization [facility] Address [address] [place] [facility] [address] Care Team Providers Care Rubber Roller Grinder Name Role Phone Danyell Kelly MD Primary Care Provider Danyell Kelly MD Primary Care Provider Encounter Details Date Type Department Care Team (Late st Contact Info) Description 06/24/2024 Results Follow-Up [facility] [address] [place] [address] Montana Veras PA [address] [place] [address] ALL BASIC METABOLIC PANEL Social [...] on filedocumented in this encounter Care Teams Rubber Roller Grinder Relationship Specialty Start Date End Date Danyell Kelly MD PCP - General Family Medicine 08/26/23 07/15/24 Danyell Kelly MD [address] [place] [address] PCP - General Family Medicine 07/16/24 documented as of this encounter
--- OUTSIDE RECORDS SUMMARY | 2024-11-13 08:22 | XMS_ITS | Encounter Summary ---
Author Organization [facility] Address [address] [place] [address] Care Team Providers Care Bill Cutter Name Role Phone Danyell Kelly MD Primary Care Provider [phone] Danyell Kelly MD Primary Care Provider [phone] Encounter Details Date Type Department Care Team (Late st Contact Info) Description 09/10/2023 Orders Only [facility] [address] [place] [address] Adali Giordano NP Internal derangement of left [...] knee documented in this encounter Care Teams Bill Cutter Relationship Specialty Start Date End Date Danyell Kelly MD PCP - General Family Medicine 08/26/23 07/15/24 Danyell Kelly MD [facility] [place] [phone] PCP - General Family Medicine 07/16/24 documented as of this encounter
--- OUTSIDE RECORDS SUMMARY | 2024-11-13 08:23 | XMS_ITS | CCD ---
Author Organization [facility] CliniSynv Care Team Providers Care Ground Wood Supervisor Name Role Phone MD Cy Sears Attending Provider MD Laurita Morales Primary Care Provider LAURITA MORALES Primary Care Physician DO Luis Gutierrez Attending Provider [phone] CARMEN, DR LAURITA Solis Attending Unavailable MORALES, [...] Unavailable MORALES, DR LAURITA Solis Attending Unavailable OMRALES, DR LAURITA Solis Primary Care Unavailable ESEQUIEL, DR RADHA Whitfield Admitting Unavailable ESEQUIEL, DR RADHA Whitfield Attending Unavailable ESEQUIEL, DR RADHA Whitfield Consulting Unavailable MORALES, DR LAURITA Solis Attending Unavailable MORALES, DR LAURITA Solis Admitting Unavailable MORALES, DR LAURITA Solis Consulting Unavailable MORALES, DR LAURITA Solis Primary Care Unavailable OMRALES, DR LAURITA Solis Primary Care Unavailable ESEQUIEL, DR RADHA Whitfield Attending Unavailable ESEQUIEL, DR RADHA Whitfield Admitting Unavailable ROBERTO MCNALLY Consulting Unavailable SALAM, FAROOQ Admitting Unavailable MORALES, DR LAURITA Solis Primary Care Unavailable SALAM, FAROOQ Attending Unavailable MATT, DR SCHRADER Consulting Unavailable MORALES, DR LAURITA Solis Primary Care Unavailable MORALES, DR LAURITA Solis Admitting Unavailable MORALES, DR LAURITA Solis Attending Unavailable MINDEN, DR LONNY Wiggins Consulting Unavailable MORALES, DR [...] Consulting Unavailable MCNALLY, ROBERTO Consulting Unavailable MCNALLY, ROEBRTO Consulting Unavailable MORALES, DR LAURITA Solis Primary [...] BULL Attending Unavailable DOLLY VERAS Referring Unavailable APLING, ADALI Pompa Attending Unavailable APLING, ADALI Pompa Referring Unavailable DANIELLE CURRAN Attending Unavailable APLING, ADALI Pompa Attending Unavailable APLING, ADALI Pompa Attending Unavailable ABHI RAMIRES Attending Unavailable DOLLY VERAS Attending Unavailable DOLLY VERAS Attending Unavailable APLING, ADALI Pompa Attending Unavailable APLGAUTAM, ADALI Pompa Attending Unavailable Joyce ALARCON, Zulay Lynch Attending Unavailable Joyce ALARCON, Zulay Lynch Attending Unavailable Laurita Morales MD Primary Care Provider [phone] Nasim Segal DO Attending Provider Laurita Morales MD Attending Provider Sin Bernard DO Attending Provider Allergies Allergy Classification Reported [...] every six hours for pain HYDROcodone-aceta minophen ([place]) 5-325 MG tablet Indications: Acute medial meniscus tear of right knee, initial encounter Take 1 tablet by mouth every 6 (six) hours if needed for severe pain for up to 3 days 12 tablet 07/06/2024 07/09/2024 Active Start: 10-08-2023 End: 10-11-2023 take 1 tablet by mouth every six hours for pain HYDROcodone-acetaminophen ([place]) 5-325 MG tablet Indications: Post-op pain Take [...] Refill(s) 0 Start Date: 12/04/23 Status: Ordered Ascorbic Acid / Beta Carotene / cuprous oxide / Lutein / sodium selenate / Vitamin E / Zinc Oxide (6 sources) Vitamin C Start: 12-04-2023 Ocuvite Adult 50+ Refill(s) 0, Prophylaxis Start Date: 12/04/23 Status: Ordered Start: 12-04-2023 Ocuvite Adult 50+ Refill(s) 0 Start Date: 12/04/23 Status: Ordered calcium citrate 950 mg oral tablet (8 [...] Daily 06/23/2024 Discontinued (Therapy completed) Eye Vitamin (5 sources) Start: 05-26-2021 take 1 tablet by maia th once daily Eye Vitamin Active 1 TAB PO Daily May 26, 2021 2:53pm Start: 05-26-2021 take 1 tablet by mouth once da katia Start: 05-26-2021 take 1 tablet by mouth [...] Daily, # 30 tab(s), Refills(s) 0, Pharmacy: [facility] 1155, 150, cm, 07/25/20 14:29:00 EDT, Height/Length Dosing, 69.9, kg, 07/25/20 14:29:00 EDT, Weight Dosing Start Date: 07/25/20 Status: Ordered Glucoamine (5 sources) Start: 05-26-2021 take 1 mg by mouth twice daily Glucoamine Active MG PO Twice daily May 26, 2021 2:53pm Start: 05-26-2021 take 1 mg by mouth twice daily Start: 05-26-2021 take 1 mg by mouth [...] MG tablet every 8 (eight) hours Active Magnesium (5 sources) Start: 05-26-2021 take 400 mg by [...] Start: 01-31-2024 take 4 tablets by mo uth once daily mesalamine (Lialda) 1.2 g EC tablet TAKE FOUR TABLETS BY MOUTH DAILY 01/31/2024 Active methocarbamol 750 mg oral tablet (1 source) Muscle Relaxant Methocarbamol 75 0 MG Orally Four times a day Active Misc. Devices misc (12 sources) Start: Misc. Devices misc Indications: Pre-op examination Dispense: Front Wheeled walker use 90 days. Ht: 4'11 Weight: 159lb 1 Units 06/23/2024 Active Multivitamin (Multi-Day) Tablet (1 source) Start: 2 take 1 tablet by mouth once daily Multivitamin (Multi-Day) Tablet Active 1 TAB PO Daily May 26, 2021 2:53pm Multivitamin Tablet (4 sources) Start: 2 take 1 tablet by mouth once daily Start: 05-26-2021 take 1 tablet by maia [...] 0 Start Date: 03/20/24 Status: Ordered NuLYTELY [place] oral powder for reconstitution (1 source) Start: 01-28-2020 take 1 dose by mouth once NuLYTELY [place] oral powder for reconstitution See Instructions, 1 EA, Refill(s) 0, PER PHYS INSRTUCTIONS, [facility], 150, cm, 01/28/20 10:49:00 EST, Height/Length Dosing, 69.9, kg, 01/28/20 10:49:00 EST, Weight Dosing Start Date: 01/28/20 Status: Ordered polyethylene glycol 3350 459231 mg / potassium chloride 1480 mg / sodium bicarbonate 5720 mg / sodium chloride 02279 mg powder for oral solution (1 source) Osmotic Laxative Start: 01-28-2020 take 1 dose by mouth once NuLYTELY [place] oral powder for reconstitution See Instructions, 1 EA, Refill(s) 0, PER PHYS INSRTUCTIONS, [facility], 150, cm, 01/28/20 10:49:00 EST, Height/Length Dosing, 69.9, kg, 01/28/20 10:49:00 EST, Weight Dosing Start Date: 01/28/20 Status: Ordered pregabalin 50 mg oral capsule (1 source) Start: 11-04-2024 take 1 capsule by mouth three times daily Pregabalin (Lyrica) 50 mg capsule Active 50 MG PO Three times daily November 04, 2024 12:00am Complies with drug therapy simvastatin 40 mg oral tablet (20 sources) [...] day(s), # 540 tab(s), Refills(s) 3, Pharmacy: [facility] 1155, 150, cm, 03/20/24 11:03:00 EST, Height/Length Dosing, 74.6, kg, 03/20/24 11:03:00 EST, Weight Dosing Start Date: 03/20/24 Stop Date: 03/15/25 Status: Ordered Start: 05-26-2021 End: 07-03-2023 take 1 tablet by mouth four times daily Sulfasalazine 500 mg tablet Discontinued 500 MG PO Four times daily May 26, 2021 12:00am July 03, 2023 9:07am Start: 05-10-2021 take 2 tablets by mo ut three times daily sulfasalazine 500 mg Tab [...] same time Active Vitamin D And Calcium (5 sources) Start: 05-26-2021 Vitamin D And Calcium Active PO Twice daily May 26, 2021 2:53pm Start: 05-26-2021 Start: 05-26-2021 Vitamin D And Calcium Active [...] Sig (Original) ALPRAZolam 0.5 mg oral tablet (20 sources) Benzodiazepine Start: 05-27-2024 End: 10-01-2024 take 0.25 mg by mouth twice daily Alprazolam 0.5 mg tablet Discontinued 0.25 MG PO Twice daily 30 August 19, 2024 12:34pm October 01, 2024 1:52pm Start: 05-26-2021 End: 05-27-2024 take 1 tablet [...] tablet (20 sources) gamma-Aminobutyric Acid-ergic Agonist Start: 09-09-2023 End: 06-23-2024 take [...] for cough for 5 days Sep, Not-Taking busPIRone hydrochloride 15 mg oral tablet (20 sources) Start: 02-19-2024 take 1 tablet by mouth in the morning busPIRone (Buspar) 15 MG tablet Take 15 mg by mouth in the morning and 15 mg before bedtime. 02/19/2024 Active Start: 02-18-2024 End: 08-19-2024 take 1 tablet by mouth twice daily Buspirone 15 mg tablet Discontinued 0 .ROUTE .COMPLEX June 15, 2024 3:16pm August 19, 2024 12:34pm TAKE ONE TABLET BY MOUTH TWICE A DAY Start: 01-20-2024 End: 02-18-2024 take 1 tablet by mouth twice daily Buspirone 15 mg tablet Discontinued 15 MG PO Twice daily January 20, 2024 1:00am February 18, 2024 9:46am clarithromycin 500 mg oral tablet (1 source) Macrolide Antimicrobial Start: 09-19-2013 take 1 tablet by mouth twice daily Biaxin 500 MG 1 tablet Orally Twice a day for 10 day(s) Sep, Not-Taking diclofenac sodium 75 mg delayed release oral tablet (6 sources) Nonsteroidal Anti-inflammatory Drug Start: 05-26-2021 End: [...] as needed Orally Twice a day Active gabapentin 300 mg oral capsule (3 sources) Anti-epileptic Agent Start: 09-30-2024 End: 11-04-2024 take 3 capsules by mouth three times daily Gabapentin 300 mg capsule Discontinued 900 MG PO Three times daily September 30, 2024 12:00am November 04, 2024 11:14am levothyroxine sodium 0.075 mg oral tablet (20 sources) l-Thyroxine Start: 02-20-2024 take 1 tablet by mouth once daily Levothyroxine 75 mcg tablet Active 0 .ROUTE .COMPLEX February 20, 2024 9:23am TAKE ONE TABLET BY MOUTH ONCE DAILY Start: 09-27-2023 End: 08-19-2024 take 1 tablet by mouth once daily Levothyroxine 75 mcg tablet Discontinued 0 .ROUTE .COMPLEX February 20, 2024 9:23am August 19, 2024 12:34pm TAKE ONE TABLET BY MOUTH ONCE DAILY Start: 05-26-2021 End: 09-27-2023 take 1 tablet [...] BY MOUTH ONCE DAILY for 30 Active methylPREDNISolone (20 sources) Corticosteroid Start: 04-15-2024 [...] on package instructions 21 tablet 12/31/2023 Active omeprazole 40 mg delayed release oral capsule (20 sources) Proton Pump Inhibitor Start: 05-26-2021 End: 06-19-2024 take 1 capsule by mouth once daily Omeprazole 40 mg capsule,delayed release(DR/EC) Discontinued 40 MG PO Daily January 24, 2024 12:00pm June 19, 2024 1:02pm Start: 01-28-2020 omeprazole Ora l, Daily, Refills(s) 0, Control of stomach acid Start Date: 01/28/20 Status: Ordered End: 06-23-2024 omeprazole (PriLOSEC) [address] capsule 1 (one) time each day at the same time 06/23/2024 Discontinued (Therapy completed) predniSONE 5 mg oral tablet (18 sources) [...] finished, # 252 tab(s), Refills(s) 0, Pharmacy: [facility] 1155, 69, kg, 01/15/24 9:14:00 EST, Weight [...] Onset: 01-18-2022 Episodic Other connective tissue disease (11 sources) Pain in right foot; Translations: [Pain [...] conditions (not mental disorders or infectious disease) (9 sources) Encounter for screening mammogram for malignant [...] Spondylosis; intervertebral disc disorders; other back problems (19 sources) Muscle spasm of back; Translations: [Low [...] (2 sources) Preprocedural examination done 06-23-2024 Unclassified (2 sources) M54.16 - Radiculopathy, lumbar region Past or [...] Test Name Value Interpretation Reference Range Facility Basophils Auto (Bld) [#/Vol] Ordered By: Laurita Morales on 10-20-2024 Basophils (Bld) [#/Vol] 0.0 10 3/uL 0.0-0.1 [facility] Basophils/100 WBC Auto (Bld) Ordered By: Laurita Morales on 10-20-2024 Basophils/100 WBC (Bld) 0.6 % 0.2-2.0 [facility] Cholesterol in LDL Calc [Mas s/Vol]Ordered By: Laurita Morales on 10-20-2024 Cholesterol in LDL [Mass/Vol] 146.0 mg/dL [facility] Comment on above: <100 mg/dl [id number] 0-129 mg/dl NEAR OR ABOVE [id number] mg/dl BORDERLINE [id number] mg/dl HIGH>190 mg/dl VERY HIGH Cholesterol in VLDL Calc [Ma ss/Vol]Ordered By: Laurita Moraels on 10-20-2024 Cholesterol in VLDL [Mass/Vol] 25.8 mg/dL [facility] Eosinophils/100 WBC Auto (Bl d)Ordered By: Laurita Morales on 10-20-2024 Eosinophils/100 WBC (Bld) 0.3 % Low 0.9-7.0 [facility] Erythrocyte distribution wid th Auto (RBC) [Ratio]Ordered By: Laurita Morales on 10-20-2024 Erythrocyte distribution width (RBC) [Ratio] 14.0 % 11.0-15.0 [facility] Globulin Calc (S) [Mass/Vol] Ordered By: Laurita Morales on 10-20-2024 Globulin (S) [Mass/Vol] 3.9 g/dL [facility] Glomerular filtration rate ( GFR) estimation in non- AmericanOrdered By: Laurita Morales on 10-20-2024 GFR/1.73 sq M.predicted among non-blacks MDRD (S/P/Bld) [Vol rate/Area] mL/min/{1.73_m2} >=60 mL/min/1.7 3m 2 [facility] Hematocrit Auto (Bld) [Volum e fraction]Ordered By: Laurita Morales on 10-20-2024 Hematocrit (Bld) [Volume fraction] 40.0 % 36.0-48.0 [facility] Hemoglobin [Mass/volume] in BloodOrdered By: Laurita Morales on 10-20-2024 Hemoglobin (Bld) [Mass/Vol] 13.0 g/dL 12.0-16.0 [facility] Laboratory - Chemistry and C hemistry - challengeOrdered By: Laurita Morales on 10-20-2024 Albumin [Mass/Vol] 4.2 g/dL 3.4-5.0 [facility] ALP [Catalytic activity/Vol] 82 U/L 46-116 [facility] ALT [Catalytic activity/Vol] 27 U/L 14-59 [facility] AST [Catalytic activity/Vol] 24 U/L 15-37 [facility] Bilirubin [Mass/Vol] 0.6 mg/dL 0.2-1.0 [facility] Calcium [Mass/Vol] 9.4 mg/dL 8.5-10.1 [facility] Chloride [Moles/Vol] 101 mmol/L 98-107 [facility] Cholesterol [Mass/Vol] 249 mg/dL High <=200 [facility] Cholesterol in HDL [Mass/Vol] 78 mg/dL High 40-60 [facility] Comment on above: > or =60 mg/dl - LOW CARDIOVASCULAR RISK<40 mg/dl - HIGH CARDIOVASCULAR RISK CO2 [Moles/Vol] 25.2 mmol/L 21.0-32.0 [facility] Creatinine [Mass/Vol] 0.70 mg/dL 0.55-1.02 [facility] Free T4 [Mass/Vol] 1.16 ng/dL 0.76-1.46 [facility] GFR/1.73 sq M.predicted MDRD (S/P/Bld) [Vol rate/Area] mL/min/{1.73_m2} >=60 mL/min/1.7 3m 2 [facility] Glucose [Mass/Vol] 113 mg/dL High 74-106 [facility] Potassium [Moles/Vol] 4.3 mmol/L 3.5-5.1 [facility] Protein [Mass/Vol] 8.1 g/dL 6.4-8.2 [facility] Sodium [Moles/Vol] 137 mmol/L 136-145 [facility] Triglyceride [Mass/Vol] 129 mg/dL <=150 [facility] TSH Qn 4.153 m[IU]/L High 0.358-3.74 0 [facility] Urea nitrogen [Mass/Vol] 11.0 mg/dL 7.0-18.0 [facility] Urea nitrogen/Creatinine [Mass ratio] 15.7 mg/mg [facility] Laboratory - Hematology and Cell countsOrdered By: Laurita Morales on 10-20-2024 Immature granulocytes/100 WBC (Bld) 0.2 % 0.0-0.5 [facility] Leukocytes [#/volume] correc javier for nucleated erythrocytes in Blood by Automated counOrdered By: Laurita Morales on 10-20-2024 WBC corrected for nucl RBC Auto (Bld) [#/Vol] 6.5 10 3/uL 4.0-11.0 [facility] Lymphocytes Auto (Bld) [#/Vo l]Ordered By: Laurita Morales on 10-20-2024 Lymphocytes (Bld) [#/Vol] 1.1 10 3/uL Low 1.2-3.8 [facility] Lymphocytes/100 WBC Auto (Bl d)Ordered By: Laurita Morales on 10-20-2024 Lymphocytes/100 WBC (Bld) 16.9 % Low 20.5-60.0 [facility] MCH Auto (RBC) [Entitic mass ]Ordered By: Laurita Morales on 10-20-2024 MCH (RBC) [Entitic mass] 30.7 pg 26.7-34.0 [facility] MCHC Auto (RBC) [Mass/Vol]Or dered By: Laurita Morales on 10-20-2024 MCHC (RBC) [Mass/Vol] 32.5 g/dL 29.9-35.2 [facility] MCV Auto (RBC) [Entitic vol] Ordered By: Laurita Morales on 10-20-2024 MCV (RBC) [Entitic vol] 94.6 fL 81.0-99.0 [facility] Monocytes Auto (Bld) [#/Vol] Ordered By: Laurita Morales on 10-20-2024 Monocytes (Bld) [#/Vol] 0.7 10 3/uL 0.3-0.8 [facility] Monocytes/100 WBC Auto (Bld) Ordered By: Laurita Morales on 10-20-2024 Monocytes/100 WBC (Bld) 11.2 % 1.7-12.0 [facility] Neutrophils Auto (Bld) [#/Vo l]Ordered By: Laurita Morales on 10-20-2024 Neutrophils (Bld) [#/Vol] 4.6 10 3/uL 1.4-6.5 [facility] Neutrophils/100 WBC Auto (Bl d)Ordered By: Laurita Morales on 10-20-2024 Neutrophils/100 WBC (Bld) 70.8 % 43.0-75.0 [facility] No Panel InformationOrdered By: Laurita Morales on 10-20-2024 Eosinophils # (Auto) 0.0 10 3/uL 0.0-0.7 [facility] Immature Granulocyte # (Auto) 0.01 10 3/uL 0.00-0.03 [facility] Platelet mean volume Auto (B ld) [Entitic vol]Ordered By: Laurita Morales on 10-20-2024 Platelet mean volume (Bld) [Entitic vol] 9.9 fL 9.5-13.5 [facility] Platelets Auto (Bld) [#/Vol] Ordered By: Laurita Morales on 10-20-2024 Platelets (Bld) [#/Vol] 243 10 3/uL 150-450 [facility] RBC Auto (Bld) [#/Vol]Ordere d By: Laurita Morales on 10-20-2024 RBC (Bld) [#/Vol] 4.23 10 6/uL 4.20-5.40 [facility] Serum or plasma albumin/glob ulin mass ratioOrdered By: Laurita Morales on 10-20-2024 Albumin/Globulin [Mass ratio] 1.1 {ratio} [facility] Serum or plasma anion gap de terminationOrdered By: Laurita Morales on 10-20-2024 Anion gap [Moles/Vol] 15.1 mmol/L [facility] Serum or plasma total choles terol/high density lipoprotein (HDL) cholesterol mass ratOrdered By: Laurita Morales on 10-20-2024 Cholesterol.total/Chol esterol in HDL [Mass ratio] 3.2 {ratio} [facility] Comment on above: 3.3 - 4.4 LOW RISK4. 4 - 7.1 AVERAGE RISK7.1 - 11.0 MODERATE RISK>11.0 HIGH RISK Reminderson 08-11-2024 Reminders Reminders From: Radha Dominguez To: Radha Dominguez; Ramonita Keller; Sent: 03/24/2024 12:57:41 EST Show up: 05/22/2024 13:57:00 EDT Subject: Ambulatory Reminder Due Date/Time: 06/21/2024 13:57:00 EDT Reminder Please call the patient in May to schedule her colonoscopy late , with Dr Tatum CONTACTED PATIENT TO SCHEDULE. [...] I place a reminder for November. Normal [facility] ALL BASIC METABOLIC PANELon 06-24-2024 Anion gap [Moles/Vol] 8 mmol/L [facility] Calcium [Mass/Vol] 9.4 mg/dL 8.5 - 10. 1 mg/dL [facility] Chloride [Moles/Vol] 103 mmol/L 98 - 10 7 mmol/L [facility] CO2 [Moles/Vol] 30.4 mmol/L 21.0 - 32.0 mmol/L [facility] Creatinine [Mass/Vol] 0.75 mg/dL 0.55 - 1.02 mg/dL [facility] GFR/1.73 sq M.predicted CKD-EPI (S/P/Bld) [Vol rate/Area] >60 >=60 mL/min/1.7 3m 2 [facility] Glucose [Mass/Vol] 91 mg/dL 74 - 106 mg/dL [facility] Potassium [Moles/Vol] 4.4 mmol/L 3.5 - 5.1 mmol/L [facility] Sodium [Moles/Vol] 137 mmol/L 136 - 145 mmol/L [facility] TBH EGFR-NON AF SERBIAN >60 >=60 mL/min/1.7 3m 2 [facility] Urea nitrogen [Mass/Vol] 11 mg/dL 7.0 - 18.0 mg/[facility] Urea nitrogen/Creatinine [Mass ratio] 14.7 mg/mg [facility]INIS[facility]NC [facility] XR Knee - left 1 or [...] structures visualized appeared to be adequately ossified. Replaced by [facility] Radiology Study observation (narrative) [facility] Gastroenterology Office/Clin ic Noteon 03-20-2024 Gastroenterology [...] fL (01/15/24) Chloride: 100 mmol/L Low (01/15/24) [place] Absolute: 1.1 E9/L High (01/15/24) CO2: 23 mmol/L (01/15/24) [place] Auto: 10.6 % (01/15/24) Creatinine: 0.6 mg/dL [...] years, pereira (more content not included)... Normal [facility] Comment on above: Result Comment: Elec [...] AM EDT With: Martin Tatum MD Where: [facility] [address] [place] [address]- You Need to Complete the Following Calprotectin, [...] choosing us for your care. Lyndsey Lawrence [facility] Gastroenterology Office/Clin ic Noteon 01-30-2024 Gastroenterology Office/Clinic [...] for h (more content not included)... Normal [facility] Comment on above: Result Comment: Elec tronically Signed By: Deepti ALARCON, Martin Khan\.br\Date and Time Signed: 01/30/24 14:13 EST Surgical Pathology Reporton 01-22-2024 Surgical Pathology Report [facility] [address] [place] [address]- Surgical Pathology Report Collected Date/Time: 01/15/2024 12:33 [...] characteristics were determined by the [facility] Surgical Pathology. They have not been cleared or approved by the [place] Food and Drug Administration. The FDA has determined that such clearance or approval is not necessary. These tests are used for clinical purposes. They should not be regarded as investigational or for research. Appropriate positive and negative controls are performed and are acceptable. Normal [facility] Comment on above: Performed By: #### 4 [id number] #### [facility] [address] [place] [address] Quantiferon-TB Plus (Client Incubated)on 01-17-2024 Gamma interferon background IA Qn (Bld) 0.02 International_Unit/mL Invalid Interpretation Code [facility] Comment on above: Performed By: #### 1 [id number] #### [facility] [address] [place] [address] M. tuberculosis stim IFN-g by CD4+ CD8+ T-cells corrected for background Qn (Bld) 0.05 International_Unit/mL Invalid Interpretation Code [facility] Comment on above: Performed By: #### 1 [id number] #### [facility] [address] [place] [address] M. tuberculosis stim IFN-g by CD4+ T-cells corrected for background Qn (Bld) 0.02 International_Unit/mL Invalid Interpretation Code [facility] Comment on above: Performed By: #### 1 [id number] #### [facility] [address] [place] [id number] M. tuberculosis stim IFN-g Ql (Bld) [Interp] Negative Invalid Interpretation Code Negative [facility] Comment on above: Result Comment: No [...] interferon gamma. Chemiluminescence immunoassay methodology Performed at: [id number] [id number] PhD Kirk Cm Performed By: #### 1 [id number] #### [facility] [address] [place] [id number] Mitogen stimulated gamma interferon corrected for background Qn (Bld) >10.00 Invalid Interpretation Code [facility] Comment on above: Performed By: #### 1 [id number] #### [facility] [address] [place] [address] Service comment (Unsp spec) [Interp] Comment Invalid Interpretation Code [facility] Comment on above: Result Comment: Terry [...] for the test. Performed By: #### 1 [id number] #### [facility] [address] [place] [address] Enteric Panel by PCRon 01-15 Enteric Panel by PCR Shiga Tox Interp Negative for Shiga Toxin producing E. coli Normal [facility] CHEMISTRYOrdered By: SYSTEM SYSTEM on 01-15-2024 [...] samples in close time sequence. Normal Negative [facility] Comment on above: Result Comment: This test result should be correlated with clinical presentations and medical history by a healthcare provider to determine its clinical significance.\.br\.br\ Other Comment: Order added by Discern Expert. Clostridium difficile by PCR Negative Normal Negative [facility] Comment on above: Order Comment: Order added by Discern Expert. Result Comment: This test result should be correlated with clinical presentations and medical history by a healthcare provider to determine its clinical significance. Performed By: #### 4 [id number] #### [facility] [address] [place] [id number] CDiff PCRon 12-06-2023 C. difficile toxin A+B Ql (Stl) No, PCR to follow Normal [facility] Comment on above: Performed By: #### 3 [id number] #### [facility] [address] [place] [address] CDiff PCR Order Cancelled Specimen has been found to be acceptable for C. difficile testing. Normal [facility] Enteric Panel by PCRon 12-05 C. coli+jejuni+upsaliensi s DNA ADELITA+non-probe Ql (Stl) Not detected Normal [facility] Comment on above: Result Comment: Test ing was performed utilizing reverse buckle sewer machine (RT), polymerase chain reaction (PCR), and array [...] nulcleic acid test. Performed By: #### 1 [id number] #### [facility] [address] [place] [id number] E. coli stx1+stx2 genes ADELITA+non-probe Ql (Stl) Negative Normal [facility] Comment on above: Performed By: #### 1 [id number] #### [facility] [address] [place] [address] Enteric Panel by PCR Shiga Tox Interp Negative for Shiga Toxin producing E. coli Normal [facility] Enteric Panel Intrl QC Pass Normal [facility] Comment on above: Result Comment: Test ing was performed utilizing reverse buckle sewer machine (RT), polymerase chain reaction (PCR), and array [...] 1 and 2. Performed By: #### 1 [id number] #### [facility] [address] [place] [address] Norovirus genogroup I+II RNA ADELITA+non-probe Ql (Stl) Not detected Normal [facility] Comment on above: Performed By: #### 1 [id number] #### [facility] [address] [place] [address] Rotavirus A RNA ADELITA+non-probe Ql (Stl) Not detected Normal [facility] Comment on above: Performed By: #### 1 [id number] #### [facility] [address] [id number] S. enterica+bongori DNA ADELITA+non-probe Ql (Stl) Not detected Normal [facility] Comment on above: Result Comment: This test result should be correlated with clinical presentations and medical history by a healthcare provider to determine its clinical significance. Performed By: #### 1 [id number] #### [facility] [address] [place] [address] Shigella species+EIEC invasion plasmid antigen H ipaH gene ADELITA+non-probe Ql (Stl) Not detected Normal [facility] Comment on above: Performed By: #### 1 [id number] #### [facility] [address] [place] [address] V. cholerae+parahaemolyti cus+vulnificus DNA ADELITA+non-probe Ql (Stl) Not detected Normal [facility] Comment on above: Performed By: #### 1 [id number] #### [facility] [address] [place] [address] Y. enterocolitica DNA ADELITA+non-probe Ql (Stl) Not detected Normal [facility] Comment on above: Performed By: #### 1 [id number] #### [facility] [address] [place] [address] Celiac Disease Comprehensive on 12-05-2023 Endomysium IgA Ql (S) Negative Invalid Interpretation Code Negative [facility] Comment on above: Performed By: #### 1 [id number] #### [facility] [address] [place] [address] Gliadin peptide IgA Qn (S) 4 unit(s) Invalid Interpretation Code 0-19 [facility] Comment on above: Result Comment: Nega tive 0 - 19 Weak Positive 20 - 30 Moderate to Strong Positive >30 Performed By: #### 1 [id number] #### [facility] [address] [place] [address] Gliadin peptide IgG Qn (S) 3 unit(s) Invalid Interpretation Code 0-19 [facility] Comment on above: Result Comment: Nega tive 0 - 19 Weak Positive 20 - 30 Moderate to Strong Positive >30 Performed By: #### 1 [id number] #### [facility] [address] [place] [address] IgA [Mass/Vol] 248 mg/dL Invalid Interpretation Code 64-422 [facility] Comment on above: Result Comment: Perf ormed at: [facility] [address] [place], [place] [id number] PhD Kirk Cm Performed By: #### 1 [id number] #### [facility] [address] [place] [address] tTG IgA Qn (S) <2 Invalid Interpretation Code 0-3 [facility] Comment on above: Result Comment: Nega tive 0 - 3 Weak Positive 4 - 10 Positive >10 Tissue Transglutaminase (tTG) has been identified as the endomysial antigen. Studies have demonstr- ated that endomysial IgA antibodies have over 99% specificity for gluten sensitive enteropathy. Performed By: #### 1 [id number] #### [facility] [address] [place] [address] tTG IgG Qn (S) 5 unit/mL Invalid Interpretation Code 0-5 [facility] Comment on above: Result Comment: Nega tive 0 - 5 Weak Positive 6 - 9 Positive >9 Performed By: #### 1 [id number] #### [facility] [address] [place] [address] CHEMISTRYOrdered By: SYSTEM SYSTEM on 12-04-2023 TSH Qn 1.76 m[IU]/L Normal 0.34 - 5.60 mcIU/mL Remisol Chem TSHon 12-04-2023 TSH Qn 1.76 m[IU]/L Normal 0.34-5.60 [facility] Comment on above: Performed By: #### 2 [id number] #### [facility] [address] [place] [address] CBC AUTO DIFFon 11-21-2021 BASO # 0.1 103/ul Normal 0.0-0.1 [facility] Comment on above: Performed By: #### C BC #### [facility] [address] [place] [address] Dr. Scooby Irvin Basophils/100 WBC (Bld) 0.5 % Normal 0.2-2.0 [facility] Comment on above: Performed By: #### C BC #### [facility] [address] [place] [address] Dr. Scooby Irvin EO # 0.0 103/ul Normal 0.0-0.7 [facility] Comment on above: Performed By: #### C BC #### [facility] [address] [place] [address] Dr. Scooby Irvin Eosinophils/100 WBC (Bld) 0.1 % Critically low 0.9-7.0 [facility] Comment on above: Performed By: #### C BC #### [facility] [address] [place] [address] Dr. Scooby Irvin Erythrocyte distribution width (RBC) [Ratio] 15.1 % Critically high 11.0-15.0 [facility] Comment on above: Performed By: #### C BC #### [facility] [address] [place] [address] Dr. Scooby Irvin Hematocrit (Bld) [Volume fraction] 39.4 % Normal 36.0-48.0 [facility] Comment on above: Performed By: #### C BC #### [facility] [address] [place] [address] Dr. Scooby Irvin Hemoglobin (Bld) [Mass/Vol] 12.6 g/dL Normal 12.0-16.0 [facility] Comment on above: Performed By: #### C BC #### [facility] [address] [place] [address] Dr. Scooby Irvin IG # 0.05 10e3/ul Critically high 0.00-0.03 [facility] Comment on above: Performed By: #### C BC #### [facility] [address] [place] [address] Dr. Scooby Irvin IG % 0.5 % Normal 0.0-0.5 [facility] Comment on above: Performed By: #### C BC #### [facility] [address] [place] [address] Dr. Scooby Irvin LYMPH # 1.3 103/ul Normal 1.2-3.8 [facility] Comment on above: Performed By: #### C BC #### [facility] [address] [place] [address] Dr. Scooby Irvin Lymphocytes/100 WBC (Bld) 13.2 % Critically low 20.5-60.0 [facility] Comment on above: Performed By: #### C BC #### [facility] [address] [place] [address] Dr. Scooby Irvin MANUAL DIFF REQ NO Normal [facility] Comment on above: Performed By: #### C BC #### [facility] [address] [place] [address] Dr. Scooby Irvin MCH (RBC) [Entitic mass] 30.0 pg Normal 26.7-34.0 [facility] Comment on above: Performed By: #### C BC #### [facility] [address] [place] [address] Dr. Scooby Irvin MCHC (RBC) [Mass/Vol] 32.0 g/dL Normal 29.9-35.2 [facility] Comment on above: Performed By: #### C BC #### [facility] [address] [address] [address] Scooby Irvin MCV (RBC) [Entitic vol] 93.8 fL Normal 81.0-99.0 [facility] Comment on above: Performed By: #### C BC #### [facility] [address] [place] [address] Dr. Scooby Irvin MONO # 0.7 103/ul Normal 0.3-0.8 [facility] Comment on above: Performed By: #### C BC #### [facility] [address] [place] [address] Dr. Scooby Irvin Monocytes/100 WBC (Bld) 7.2 % Normal 1.7-12.0 [facility] Comment on above: Performed By: #### C BC #### [facility] [address] [place] [address] Dr. Scooby Irvin NEUT # 7.5 103/ul Critically high 1.4-6.5 [facility] Comment on above: Performed By: #### C BC #### [facility] [address] [place] [address] Dr. Scooby Irvin Neutrophils/100 WBC (Bld) 78.5 % Critically high 43.0-75.0 [facility] Comment on above: Performed By: #### C BC #### [facility] [address] [place] [address] Dr. Scooby Irvin Platelet mean volume (Bld) [Entitic vol] 9.9 fL Normal 9.5-13.5 [facility] Comment on above: Performed By: #### C BC #### [facility] [address] [place] [address] Dr. Scooby Irvin PLT 230 103/ul Normal 150-450 [facility] Comment on above: Performed By: #### C BC #### [facility] [address] [place] [address] Dr. Scooby Irvin RBC 4.20 106/ul Normal 4.20-5.40 [facility] Comment on above: Performed By: #### C BC #### [facility] [address] [place] [address] Dr. Scooby Irvin WBC 9.5 103/ul Normal 4.0-11.0 [facility] Comment on above: Performed By: #### C BC #### [facility] [address] [place] [address] Dr. Scooby Irvin PROF 14(COMP METB)on 022 Albumin [Mass/Vol] 3.9 g/dL Normal 3.4-5.0 [facility] Comment on above: Performed By: #### C BC #### [facility] [address] [place] [address] Dr. Scooby Irvin Albumin/Globulin [Mass ratio] 1.0 {ratio} Normal [facility] Comment on above: Performed By: #### C BC #### [facility] [address] [place] [address] Dr. Scooby Irvin ALP [Catalytic activity/Vol] 87 U/L Normal 46-116 [facility] Comment on above: Performed By: #### C BC #### [facility] [address] [place] [address] Dr. Scooby Irvin ALT [Catalytic activity/Vol] 29 U/L Normal 14-59 [facility] Comment on above: Performed By: #### C BC #### [facility] [address] [place] [address] Dr. Scooby Irvin Anion gap [Moles/Vol] 14.1 mmol/L Normal [facility] Comment on above: Performed By: #### C BC #### [facility] [address] [place] [address] Dr. Scooby Irvin AST [Catalytic activity/Vol] 38 U/L Critically high 15-37 [facility] Comment on above: Performed By: #### C BC #### [facility] [address] [address] [address] Scooby Irvin Bilirubin [Mass/Vol] 0.5 mg/dL Normal 0.2-1.0 [facility] Comment on above: Performed By: #### C BC #### [facility] [address] [address] [address] Scooby Irvin Calcium [Mass/Vol] 9.2 mg/dL Normal 8.5-10.1 [facility] Comment on above: Performed By: #### C BC #### [facility] [address] [address] [address] Scooby Irvin Chloride [Moles/Vol] 102 mmol/L Normal 98-107 [facility] Comment on above: Performed By: #### C BC #### [facility] [address] [place] [address] Dr. Scooby Irvin CO2 [Moles/Vol] 25.7 mmol/L Normal 21.0-32.0 [facility] Comment on above: Performed By: #### C BC #### [facility] [address] [place] [address] Dr. Scooby Irvin Creatinine [Mass/Vol] 0.76 mg/dL Normal 0.55-1.02 [facility] Comment on above: Performed By: #### C BC #### [facility] [address] [place] [address] Dr. Scooby Irvin EGFR-AF SERBIAN >60 Normal >=60 [facility] Comment on above: Performed By: #### C BC #### [facility] [address] [place] [address] Dr. Scooby Irvin EGFR-NON AF SERBIAN >60 Normal >=60 [facility] Comment on above: Performed By: #### C BC #### [facility] [address] [place] [address] Dr. Scooby Irvin Globulin (S) [Mass/Vol] 3.8 g/dL Normal [facility] Comment on above: Performed By: #### C BC #### [facility] [address] [address] [address] Scooby Irvin Glucose [Mass/Vol] 104 mg/dL Normal 74-106 [facility] Comment on above: Performed By: #### C BC #### [facility] [address] [address] [address] Scooby Irvin Potassium [Moles/Vol] 4.8 mmol/L Normal 3.5-5.1 [facility] Comment on above: Performed By: #### C BC #### [facility] [address] [address] [address] Scooby Irvin Protein [Mass/Vol] 7.7 g/dL Normal 6.4-8.2 [facility] Comment on above: Performed By: #### C BC #### [facility] [address] [address] [address] Scooby Irvin Sodium [Moles/Vol] 137 mmol/L Normal 136-145 [facility] Comment on above: Performed By: #### C BC #### [facility] [address] [address] [address] Scooby Irvin Urea nitrogen [Mass/Vol] 9.0 mg/dL Normal 7.0-18.0 [facility] Comment on above: Performed By: #### C BC #### [facility] [address] [address] [address] Scooby Irvin Urea nitrogen/Creatinine [Mass ratio] 11.8 mg/mg Normal [facility] Comment on above: Performed By: #### C BC #### [facility] [address] [address] [address] Scooby Irvin LIPID PROFILEon 09-27-2021 CHOL-HDL RATIO NORM SEE BELOW Normal [facility] Comment on above: Result Comment: 3.3 - 4.4 LOW RISK 4.4 - 7.1 AVERAGE RISK 7.1 - 11.0 MODERATE RISK >11.0 HIGH RISK Performed By: #### C MP, LIPID #### [facility] [address] [address] [address] Scooby Irvin Cholesterol [Mass/Vol] 235 mg/dL Critically high <=200 [facility] Comment on above: Performed By: #### C MP, LIPID #### [facility] [address] [address] [address] Scooby Irvin Cholesterol in HDL [Mass/Vol] 65 mg/dL Critically high 40-60 [facility] Comment on above: Performed By: #### C MP, LIPID #### [facility] [address] [address] [address] Scooby Irvin Cholesterol in LDL [Mass/Vol] 156.8 mg/dL Normal [facility] Comment on above: Performed By: #### C MP, LIPID #### [facility] [address] [address] [address] Scooby Irvin Cholesterol.total/Chol esterol in HDL [Mass ratio] 3.6 {ratio} Normal [facility] Comment on above: Performed By: #### C MP, LIPID #### [facility] [address] [place] [address] Dr. Scooby Irvin HDL NORMAL > or = 60 mg/dl - LO W CARDIOVASCULAR RISK <40 mg/dl - HIGH CARDIOVASCULAR RISK Normal [facility] Comment on above: Performed By: #### C MP, LIPID #### [facility] [address] [place] [address] Dr. Scooby Irvin LDL CALC NORMAL SEE BELOW Normal [facility] Comment on above: Result Comment: <100 mg/dl OPTIMAL 100 - 129 mg/dl NEAR OR ABOVE OPTIMAL 130 - 159 mg/dl BORDERLINE HIGH 160 - 189 mg/dl HIGH >190 mg/dl VERY HIGH Performed By: #### C MP, LIPID #### [facility] [address] [place] [address] Dr. Scooby Irvin Triglyceride [Mass/Vol] 66 mg/dL Normal <=150 [facility] Comment on above: Performed By: #### C MP, LIPID #### [facility] [address] [place] [address] Dr. Scooby Irvin VLDL CALC 13.2 mg/dL Normal [facility] Comment on above: Performed By: #### C MP, LIPID #### [facility] [address] [place] [address] Dr. Scooby Irvin PROF 14(COMP METB)on 022 Albumin [Mass/Vol] 3.9 g/dL Normal 3.4-5.0 [facility] Comment on above: Performed By: #### C MP, LIPID #### [facility] [address] [address] [address] Scooby Irvin Albumin/Globulin [Mass ratio] 1.1 {ratio} Normal [facility] Comment on above: Performed By: #### C MP, LIPID #### [facility] [address] [address] [address] Scooby Irvin ALP [Catalytic activity/Vol] 87 U/L Normal 46-116 [facility] Comment on above: Performed By: #### C MP, LIPID #### [facility] [address] [place] [address] Dr. Scooby Irvin ALT [Catalytic activity/Vol] 27 U/L Normal 14-59 [facility] Comment on above: Performed By: #### C MP, LIPID #### [facility] [address] [place] [address] Dr. Scooby Irvin Anion gap [Moles/Vol] 16.9 mmol/L Normal [facility] Comment on above: Performed By: #### C MP, LIPID #### [facility] [address] [place] [address] Dr. Scooby Irvin AST [Catalytic activity/Vol] 21 U/L Normal 15-37 [facility] Comment on above: Performed By: #### C MP, LIPID #### [facility] [address] [address] [address] Scooby Irvin Bilirubin [Mass/Vol] 0.4 mg/dL Normal 0.2-1.0 [facility] Comment on above: Performed By: #### C MP, LIPID #### [facility] [address] [address] [address] Scooby Irvin Calcium [Mass/Vol] 8.7 mg/dL Normal 8.5-10.1 [facility] Comment on above: Performed By: #### C MP, LIPID #### [facility] [address] [address] [address] Scooby Irvin Chloride [Moles/Vol] 102 mmol/L Normal 98-107 [facility] Comment on above: Performed By: #### C MP, LIPID #### [facility] [address] [place] [address] Dr. Scooby Irvin CO2 [Moles/Vol] 22.0 mmol/L Normal 21.0-32.0 [facility] Comment on above: Performed By: #### C MP, LIPID #### [facility] [address] [place] [address] Dr. Scooby Irvin Creatinine [Mass/Vol] 0.73 mg/dL Normal 0.55-1.02 [facility] Comment on above: Performed By: #### C MP, LIPID #### [facility] [address] [place] [address] Dr. Scooby Irvin EGFR-AF SERBIAN >60 Normal >=60 [facility] Comment on above: Performed By: #### C MP, LIPID #### [facility] [address] [place] [address] Dr. Scooby Irvin EGFR-NON AF SERBIAN >60 Normal >=60 [facility] Comment on above: Performed By: #### C MP, LIPID #### [facility] [address] [place] [address] Dr. Scooby Irvin Globulin (S) [Mass/Vol] 3.7 g/dL Normal [facility] Comment on above: Performed By: #### C MP, LIPID #### [facility] [address] [place] [address] Dr. Scooby Irvin Glucose [Mass/Vol] 105 mg/dL Normal 74-106 [facility] Comment on above: Performed By: #### C MP, LIPID #### [facility] [address] [place] [address] Dr. Scooby Irvin Potassium [Moles/Vol] 3.9 mmol/L Normal 3.5-5.1 [facility] Comment on above: Performed By: #### C MP, LIPID #### [facility] [address] [place] [address] Dr. Scooby Irvin Protein [Mass/Vol] 7.6 g/dL Normal 6.4-8.2 [facility] Comment on above: Performed By: #### C MP, LIPID #### [facility] [address] [place] [address] Dr. Scooby Irvin Sodium [Moles/Vol] 137 mmol/L Normal 136-145 [facility] Comment on above: Performed By: #### C MP, LIPID #### [facility] [address] [place] [address] Dr. Scooby Irvin Urea nitrogen [Mass/Vol] 11.0 mg/dL Normal 7.0-18.0 [facility] Comment on above: Performed By: #### C MP, LIPID #### [facility] [address] [place] [address] Dr. Scooby Irvin Urea nitrogen/Creatinine [Mass ratio] 15.1 mg/mg Normal [facility] Comment on above: Performed By: #### C MP, LIPID #### [facility] [address] [place] [address] Dr. Scooby Irvin TSHon 09-27-2021 TSH 2.198 uIU/mL Normal 0.358-3.74 0 [facility] Comment on above: Performed By: #### T SH #### [facility] [address] [place] [address] Dr. Scooby Irvin [facility] SARS-CoV-2 (COVID-19) RNA ADELITA+probe Ql (Unsp spec) Not detected Normal NOT DETECTED [facility] Comment on above: Result Comment: This test is not yet approved or cleared by the [place] FDA. When there are no FDA-approved or cleared tests available, and other criteria are met, FDA can make tests available under an emergency access mechanism called an Emergency Use Authorization (EUA). The EUA for this test is supported by the Reservations And Ticketing Agent of Health and Human Service's (HHS's) declaration [...] By: #### C BC #### [facility] [address] [address] [address] Scooby Irvin TSHon 06-22-2021 TSH 2.326 uIU/mL Normal 0.358-3.74 0 [facility] Comment on above: Performed By: #### C BC #### [facility] [address] [place] [address] Dr. Scooby Irvin TSH RANGE SEE BELOW Normal [facility] Comment on above: Result Comment: <0.3 4 UIU/ml HYPERTHYROID 0.34-5.60 UIU/ml EUTHYROID >5.60 UIU/ml HYPOTHYROID Performed By: #### C BC #### [facility] [address] [place] [address] Dr. Scooby Irvin ABO/Rh Retypeon 05-31-2021 ABO/RH Recheck Result Positive Normal [facility] Comment on above: Result Comment: PERF ORMED BY: [facility] [address] [place] [address] PATHOLOGIST COBBLER APPRENTICE TRICIA Yin 05-31-2021 L ------- Specimen: [id number] Received: 05/31/21 Status: LIDIA Duckworth Num: [id number] Spec Type: Surgical Subm Dr: Luis Gutierrez, Tissues: A Parathyroid Gland (R/O PARATHYROID) B THYROID - Lobe (R SUBSTERNAL THYROID) Procedures: HE Stain/8, Gross/Micro L5, Gross/Micro L4 Patient Age/Sex Location Account Attending Physician Alexandra Cervantes 71/F [place] [id number] Luis Gutierrez DO SPEC NUM: [id number] RECD: 05/31/21 STATUS: LIDIA DUCKWORTH NUM: [id number] KATHY: 05/31/21- SUBM DR: Luis Gutierrez DO ENTERED: 05/31/21 [facility] DR: LANCE TYPE: Surgical DEPT: [...] blue. Sectioning of the sutured nodule Specimen: [id number] Received: 05/31/21 Status: LIDIA Duckworth Num: [id number] Spec Type: Surgical Subm Dr: Luis Gutierrez DO Tissues: A Parathyroid Gland (R/O PARATHYROID) B THYROID - Lobe (R SUBSTERNAL THYROID) Procedures: HE Stain/8, Gross/Micro L5, Gross/Micro L4 Patient: SammyhungAlexandra [id number] (Continued) Specimen: Received: 05/31/21 (Continued) Gross Description (Continued) Signed (signature on file) Tricia Oshea MD 06/01/211912 Specimen: Received: 05/31/21 Status: LIDIA Duckworth Num: [id number] Spec Type: Surgical Subm Dr: Luis Gutierrez DO Tissues: A Parathyroid Gland (R/O PARATHYROID) B THYROID - Lobe (R SUBSTERNAL THYROID) Procedures: HE Stain/8, Gross/Micro L5, Gross/Micro L4 Patient: Alexandra Cervantes [id number] (Continued) Specimen: Received: 05/31/21 (Continued) Gross Description [...] microscopic findings support the above pathologic diagnosis. [id number], [id number], [id number] Specimen: [id number] Received: (more content not included)... Normal [facility] LeukoReduced RBCon 2 LeukoReduced RBC READY Normal [facility] Type and Screenon 05-31-2021 ABO and Rh group Nom (Bld) Blood group O Rh(D) positive Normal [facility] Comment on above: Order Comment: Trans fuse now? N Result Comment: PERF ORMED BY: [facility] [address] PATHOLOGIST COBBLER APPRENTICE TRICIA OSHEA M.D. Basic Metabolic Panelon 04- Calcium [Mass/Vol] 9.5 mg/dL Normal 8.2-10.2 [facility] Comment on above: Result Comment: PERF ORMED BY: [place] [address] PATHOLOGIST COBBLER APPRENTICE TRICIA OSHEA M.D. Performed By: #### C BC, BMP #### [facility] [address] [place] [address] [place] Chloride [Moles/Vol] 105 mmol/L Normal 95-114 [facility] Comment on above: Performed By: #### C BC, BMP #### [address] CO2 [Moles/Vol] 23.0 mmol/L Normal 22.0-30.0 [facility] Comment on above: Performed By: #### C BC, BMP #### [facility] [address] Creatinine [Mass/Vol] 0.66 mg/dL Normal 0.44-1.03 [facility] Comment on above: Performed By: #### C BC, BMP #### [facility] [address] Estimated GFR ( Traci > 60 [facility] Comment on above: Result Comment: GFR estimated reference range: According to KDOQI guidelines, <60 ml/min/1.73m2 is sufficient to diagnose a patient with chronic kidney disease. Performed By: #### C BC, BMP #### [facility] [address] [place] [address] [place] Estimated GFR (Non- Am > 60 [facility] Comment on above: Performed By: #### C BC, BMP #### [facility] [address] [place] [address] [place] Glucose [Mass/Vol] 89 mg/dL Normal 70-100 [facility] Comment on above: Result Comment: [place] Glucose Reference Range is dependent on time and content of last meal. Glucose of more than 200 mg/dL in a nonstressed, ambulatory subject supports the diagnosis of Diabetes Mellitus. ADA recommended reference range Performed By: #### C BC, BMP #### [facility] [address] Potassium [Moles/Vol] 4.0 mmol/L Normal 3.5-5.1 [facility] Comment on above: Performed By: #### C BC, BMP #### [facility] [address] Sodium [Moles/Vol] 137 mmol/L Normal 136-146 [facility] Comment on above: Performed By: #### C KELSEY, BMP #### [facility] [address] Urea nitrogen [Mass/Vol] 10 mg/dL Normal 9-23 [facility] Comment on above: Performed By: #### C KELSEY, BMP #### [facility] [address] Basophils Auto (Bld) [#/Vol] Ordered By: Luis Gutierrez on 05-26-2021 Basophils (Bld) [#/Vol] 0.1 10*3/uL 0.0-0.2 [facility] Basophils/100 WBC Auto (Bld) Ordered By: Luis Gutierrez on 05-26-2021 Basophils/100 WBC (Bld) 0.9 % [facility] Blood hemoglobin measurement (mass/volume)Ordered By: Luis Gutierrez on 05-26-2021 Hemoglobin (Bld) [Mass/Vol] 12.4 g/dL 11.8-15.4 [facility] Blood leukocytes automated c ount (number/volume)Ordered By: Luis Gutierrez on 05-26-2021 WBC (Bld) [#/Vol] 8.8 10*3/uL 4.5-11.0 [facility] COVID-19 FRMCon 05-26-2021 SARS-CoV-2 (COVID-19) RNA ADELITA+probe Ql (Unsp spec) Negative Normal Negative [facility] Comment on above: Order Comment: Healt hcare Worker?: N Result Comment: Testing for SARS-CoV-2 by RT-PCR This test was developed and its performance characteristics determined by [employer] ([employer]) and validated at the [facility]. This test has not been FDA [...] is terminated or revoked sooner. PERFORMED BY: [place] [address] PATHOLOGIST COBBLER APPRENTICE TRICIA OSHEA M.D. Performed By: #### C OVID 19 [facility] #### [address] COVID-19 Positive/NegativeOr dered By: Luis Gutierrez on 05-26-2021 SARS-CoV-2 (COVID-19) N gene ADELITA+probe Ql (Resp) Negative Negative [facility] Comment on above: Testing for SARS-CoV -2 by RT-PCRThis test was developed and its performance characteristics determined by [employer] ([employer]) and validated at the [facility]. This test has not been FDA [...] 05-26-2021 Calcium [Mass/Vol] 9.4 mg/dL Normal 8.2-10.2 [facility] Comment on above: Performed By: #### C A, TSH3, PTH #### [address] Complete Blood Count Auto Di ffon 05-26-2021 Basophils (Bld) [#/Vol] 0.1 10*3/uL Normal 0.0-0.2 [facility] Comment on above: Result Comment: PERF ORMED BY: [place] [address] PATHOLOGIST COBBLER APPRENTICE TRICIA OSHEA M.D. Performed By: #### C BC, BMP #### [address] Basophils/100 WBC (Bld) 0.9 % Normal . [facility] Comment on above: Performed By: #### C BC, BMP #### [address] Eosinophils (Bld) [#/Vol] 0.0 10*3/uL Normal 0.0-0.45 [facility] Comment on above: Performed By: #### C BC, BMP #### [address] Eosinophils/100 WBC (Bld) 0.2 % Normal . [facility] Comment on above: Performed By: #### C BC, BMP #### [address] Erythrocyte distribution width (RBC) [Ratio] 16.1 % High 11.9-15.3 [facility] Comment on above: Performed By: #### C BC, BMP #### [address] Hematocrit (Bld) [Volume fraction] 37.5 % Normal 34.0-46.4 [facility] Comment on above: Performed By: #### C BC, BMP #### [address] Hemoglobin (Bld) [Mass/Vol] 12.4 g/dL Normal 11.8-15.4 [facility] Comment on above: Performed By: #### C BC, BMP #### [address] Lymphocytes (Bld) [#/Vol] 1.4 10*3/uL Normal 1.00-4.8 [facility] Comment on above: Performed By: #### C BC, BMP #### [address] Lymphocytes/100 WBC (Bld) 15.8 % Normal . [facility] Comment on above: Performed By: #### C BC, BMP #### [address] MCH (RBC) [Entitic mass] 29.2 pg Normal 24.7-34.3 [facility] Comment on above: Performed By: #### C BC, BMP #### [address] MCV (RBC) [Entitic vol] 88.3 fL Normal 80-100 [facility] Comment on above: Performed By: #### C BC, BMP #### [address] Mean Corpuscular HGB Conc 33.1 g/dL Normal 32.0-35.0 [facility] Comment on above: Performed By: #### C BC, BMP #### [address] Monocytes (Bld) [#/Vol] 0.7 10*3/uL Normal 0.0-0.8 [facility] Comment on above: Performed By: #### C BC, BMP #### [address] Monocytes/100 WBC (Bld) 7.7 % Normal . [facility] Comment on above: Performed By: #### C BC, BMP #### [facility] [address] [place] [address] [place] Neutrophils (Bld) [#/Vol] 6.7 10*3/uL Normal 1.8-7.7 [facility] Comment on above: Performed By: #### C BC, BMP #### [facility] [address] [place] [id number] [place] Neutrophils/100 WBC (Bld) 75.4 % Normal . [facility] Comment on above: Performed By: #### C BC, BMP #### [facility] [address] [place] [address] [place] Nucleated RBC/100 WBC (Bld) [Ratio] 0.1 % Normal 0-0.5 [facility] Comment on above: Performed By: #### C BC, BMP #### [facility] [address] [place] [address] [place] Platelet mean volume (Bld) [Entitic vol] 8.6 fL Normal 6.3-10.7 [facility] Comment on above: Performed By: #### C BC, BMP #### [facility] [address] [place] [address] [place] Platelets (Bld) [#/Vol] 241 10*3/uL Normal 150-450 [facility] Comment on above: Performed By: #### C BC, BMP #### [facility] [address] [place] [address] [place] RBC (Bld) [#/Vol] 4.24 10*6/uL Normal 3.60-5.00 [facility] Comment on above: Performed By: #### C BC, BMP #### [facility] [address] [place] [address] [place] WBC (Bld) [#/Vol] 8.8 10*3/uL Normal 4.5-11.0 [facility] Comment on above: Performed By: #### C BC, BMP #### [facility] [address] [place] [address] [place] Creatinine and Glomerular fi ltration rate.predicted panel (S/P/Bld)Ordered By: Luis Gutierrez on 05-26-2021 Creatinine [Mass/Vol] 0.66 mg/dL 0.44-1.03 [facility] ECG 12 lead ECGon 05-26-2021 ECG 12 lead ECG [place] [address] Electrocardiograph Report Signed Patient: Alexandra Cervantes MR#: [id number] 2 : 1950 Acct:[id number] Age/Sex: 71 / F ADM Date: 05/26/21 [facility]: [facility]: [facility] Att[facility]: Luis Gutierrez DO Ordering [...] By Fredi Haines DO 05/27 0848 Normal [facility] Eosinophils Auto (Bld) [#/Vo l]Ordered By: Luis Gutierrez on 05-26-2021 Eosinophils (Bld) [#/Vol] 0.0 10*3/uL 0.0-0.45 [facility] Eosinophils/100 WBC Auto (Bl d)Ordered By: Luis Gutierrez on 05-26-2021 Eosinophils/100 WBC (Bld) 0.2 % [facility] Erythrocyte distribution wid th Auto (RBC) [Ratio]Ordered By: Luis Gutierrez on 05-26-2021 Erythrocyte distribution width (RBC) [Ratio] 16.1 % 11.9-15.3 [facility] Estimated glomerular filtrat ion rate (GFR) non- AmericanOrdered By: Luis Gutierrez on 05-26-2021 GFR/1.73 sq M.predicted among non-blacks MDRD (S/P/Bld) [Vol rate/Area] > 60 mL/Min [facility] Hematocrit Auto (Bld) [Volum e fraction]Ordered By: Luis Gutierrez on 05-26-2021 Hematocrit (Bld) [Volume fraction] 37.5 % 34.0-46.4 [facility] Laboratory - Hematology and Cell countsOrdered By: Luis Gutierrez on 05-26-2021 Nucleated RBC/100 WBC (Bld) [Ratio] 0.1 % 0-0.5 [facility] Lymphocytes Auto (Bld) [#/Vo l]Ordered By: Luis Gutierrez on 05-26-2021 Lymphocytes (Bld) [#/Vol] 1.4 10*3/uL 1.00-4.8 [facility] Lymphocytes/100 WBC Auto (Bl d)Ordered By: Luis Gutierrez on 05-26-2021 Lymphocytes/100 WBC (Bld) 15.8 % [facility] MCH Auto (RBC) [Entitic mass ]Ordered By: Luis Gutierrez on 05-26-2021 MCH (RBC) [Entitic mass] 29.2 pg 24.7-34.3 [facility] MCHC Auto (RBC) [Mass/Vol]Or dered By: Luis Gutierrez on 05-26-2021 MCHC (RBC) [Mass/Vol] 33.1 g/dL 32.0-35.0 [facility] MCV Auto (RBC) [Entitic vol] Ordered By: Luis Gutierrez on 05-26-2021 MCV (RBC) [Entitic vol] 88.3 fL 80-100 [facility] Monocytes Auto (Bld) [#/Vol] Ordered By: Luis Gutierrez on 05-26-2021 Monocytes (Bld) [#/Vol] 0.7 10*3/uL 0.0-0.8 [facility] Monocytes/100 WBC Auto (Bld) Ordered By: Luis Gutierrez on 05-26-2021 Monocytes/100 WBC (Bld) 7.7 % [facility] Neutrophils Auto (Bld) [#/Vo l]Ordered By: Luis Gutierrez on 05-26-2021 Neutrophils (Bld) [#/Vol] 6.7 10*3/uL 1.8-7.7 [facility] Neutrophils/100 WBC Auto (Bl d)Ordered By: Luis Gutierrez on 05-26-2021 Neutrophils/100 WBC (Bld) 75.4 % [facility] No Panel InformationOrdered By: Luis Gutierrez on 05-26-2021 Estimated GFR () > 60 mL/Min [facility] Comment on above: GFR estimated refere nce range: According to KDOQI guidelines, <60 ml/min/1.73m2 is sufficient to diagnose a patient with chronic kidney disease. Pharmacy Creatinine Clearance (Chem N/A [facility] Parathyroid Hormone Intacton 05-26-2021 Parathyroid Hormone Intact 31.2 pg/mL Normal 12-88 [facility] Comment on above: Result Comment: PERF ORMED BY: [place] [address] PATHOLOGIST COBBLER APPRENTICE TRICIA OSHEA M.D. Performed By: #### C BC, BMP #### [address] Platelet mean volume Auto (B ld) [Entitic vol]Ordered By: Luis Gutierrez on 05-26-2021 Platelet mean volume (Bld) [Entitic vol] 8.6 fL 6.3-10.7 [facility] Platelets Auto (Bld) [#/Vol] Ordered By: Luis Gutierrez on 05-26-2021 Platelets (Bld) [#/Vol] 241 10*3/uL 150-450 [facility] RBC Auto (Bld) [#/Vol]Ordere d By: Luis Gutierrez on 05-26-2021 RBC (Bld) [#/Vol] 4.24 10*6/uL 3.60-5.00 [facility] Serum or plasma calcium joseph urement (mass/volume)Ordered By: Luis Gutierrez on 05-26-2021 Calcium [Mass/Vol] 9.4 mg/dL 8.2-10.2 [facility] Serum or plasma chloride liv surement (moles/volume)Ordered By: Luis Gutierrez on 05-26-2021 Chloride [Moles/Vol] 105 mmol/L 95-114 [facility] Serum or plasma glucose joseph urement (mass/volume)Ordered By: Luis Gutierrez on 05-26-2021 Glucose [Mass/Vol] 89 mg/dL 70-100 [facility] Comment on above: ADA recommended refe rence rangeRandom Glucose Reference Range is dependent on time and content of last meal. Glucose of more than 200 mg/dL in a nonstressed, ambulatory subject supports the diagnosis of Diabetes Mellitus. Serum or plasma intact parat hyroid hormone measurement (mass/volume)Ordered By: Luis Gutierrez on 05-26-2021 Parathyrin.intact [Mass/Vol] 31.2 pg/mL 12 [facility] Serum or plasma potassium me asurement (moles/volume)Ordered By: Luis Gutierrez on 05-26-2021 Potassium [Moles/Vol] 4.0 mmol/L 3.5-5.1 [facility] Serum or plasma sodium measu rement (moles/volume)Ordered By: Luis Gutierrez on 05-26-2021 Sodium [Moles/Vol] 137 mmol/L 136-146 [facility] Serum or plasma total carbon dioxide measurement (moles/volume)Ordered By: Luis Gutierrez on 05-26-2021 CO2 [Moles/Vol] 23.0 mmol/L 22.0-30.0 [facility] Serum or plasma urea nitroge n measurement (mass/volume)Ordered By: Luis Gutierrez on 05-26-2021 Urea nitrogen [Mass/Vol] 10 mg/dL 11-03 [facility] TSH DL <= 0.005 mIU/L QnOrde red By: Luis Gutierrez on 05-26-2021 TSH Qn 0.86 m[IU]/L 0.45-5.33 [facility] Thyroid Stimulating Hormoneo n 05-26-2021 TSH Qn 0.86 m[IU]/L Normal 0.45-5.33 [facility] Comment on above: Performed By: #### C A, TSH3, PTH #### [facility] [address] MG MAMM SCREEN 3D GEORGES CADon 05-22-2021 MG MAMM SCREEN 3D GEORGES CAD Patient: ALEXANDRA CERVANTES Exam Date: 05/22/2021 : 1950 Gender:F Ordering : DR LAURITA MORALES M.D. Admission #: [id number] Family : Order #: [id number] CLICK HERE TO VIEW EXAM RADIOLOGY REPORT [...] No Treatments None Family Cancers None LOCATION: [facility] BREAST COMPOSITION: Scattered areas fibroglandular density. [...] Killian MD on 05/22/2021 at 12:06 Normal [facility] CT Chest w/Contraston 2021 CT Chest w/Contrast Please see CT neck r eport dated: 05/17/2021. 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 CT Soft Tissue Neck w/ Contr [...] by Fuentes Lion on 05/22/2021 1528 Normal [facility] [place] esophaguson 05-04-2021 ID esophagus [place] [address] Fluoroscopy Report Signed Patient: Alexandra Cervantes MR#: [id number] 2 : 1950 Acct:[id number] Age/Sex: 71 / F ADM Date: 05/04/21 Loc: XD Room: Type: [facility] Attending Dr: Cy Sears MD Ordering [...] Kitchen Jr., M.D.05/04/2021 3:37 PM Dictation Location: [place] [address] Transcribed By: [facility] 05/04/211536 Dictated By: Selvin Kitchen Jr, MD 05/04/211531 Signed By: 05/04/211536 [facility] CBC AUTO DIFFon 04-20-2021 BASO # 0.1 103/ul Normal 0.0-0.1 [facility] Comment on above: Performed By: #### C BC #### [facility] [address] [place] [address] Dr. Scooby Irvin Basophils/100 WBC (Bld) 0.4 % Normal 0.2-2.0 [facility] Comment on above: Performed By: #### C BC #### [facility] [address] [place] [address] Dr. Scooby Irvin EO # 0.0 103/ul Normal 0.0-0.7 [facility] Comment on above: Performed By: #### C BC #### [facility] [address] [place] [address] Dr. Scooby Irvin Eosinophils/100 WBC (Bld) 0.2 % Critically low 0.9-7.0 [facility] Comment on above: Performed By: #### C BC #### [facility] [address] [place] [address] Dr. Scooby Irvin Erythrocyte distribution width (RBC) [Ratio] 16.7 % Critically high 11.0-15.0 [facility] Comment on above: Performed By: #### C BC #### [facility] [address] [place] [address] Dr. Scooby Irvin Hematocrit (Bld) [Volume fraction] 37.6 % Normal 36.0-48.0 [facility] Comment on above: Performed By: #### C BC #### [facility] [address] [place] [address] Dr. Scooby Irvin Hemoglobin (Bld) [Mass/Vol] 12.0 g/dL Normal 12.0-16.0 [facility] Comment on above: Performed By: #### C BC #### [facility] [address] [place] [address] Dr. Scooby Irvin IG # 0.02 10e3/ul Normal 0.00-0.03 [facility] Comment on above: Performed By: #### C BC #### [facility] [address] [place] [address] Dr. Scooby Irvin IG % 0.2 % Normal 0.0-0.5 [facility] Comment on above: Performed By: #### C BC #### [facility] [address] [place] [address] Dr. Scooby Irvin LYMPH # 1.6 103/ul Normal 1.2-3.8 [facility] Comment on above: Performed By: #### C BC #### [facility] [address] [place] [address] Dr. Scooby Irvin Lymphocytes/100 WBC (Bld) 13.6 % Critically low 20.5-60.0 [facility] Comment on above: Performed By: #### C BC #### [facility] [address] [place] [address] Dr. Scooby Irvin MANUAL DIFF REQ NO Normal [facility] Comment on above: Performed By: #### C BC #### [facility] [address] [place] [address] Dr. Scooby Irvin MCH (RBC) [Entitic mass] 28.6 pg Normal 26.7-34.0 [facility] Comment on above: Performed By: #### C BC #### [facility] [address] [place] [address] Dr. Scooby Irvin MCHC (RBC) [Mass/Vol] 31.9 g/dL Normal 29.9-35.2 [facility] Comment on above: Performed By: #### C BC #### [facility] [address] [place] [address] Dr. Scooby Irvin MCV (RBC) [Entitic vol] 89.5 fL Normal 81.0-99.0 [facility] Comment on above: Performed By: #### C BC #### [facility] [address] [place] [address] Dr. Scooby Irvin MONO # 0.7 103/ul Normal 0.3-0.8 [facility] Comment on above: Performed By: #### C BC #### [facility] [address] [place] [address] Dr. Scooby Irvin Monocytes/100 WBC (Bld) 5.8 % Normal 1.7-12.0 [facility] Comment on above: Performed By: #### C BC #### [facility] [address] [place] [address] Dr. Scooby Irvin NEUT # 9.1 103/ul Critically high 1.4-6.5 [facility] Comment on above: Performed By: #### C BC #### [facility] [address] [place] [address] Dr. Scooby Irvin Neutrophils/100 WBC (Bld) 79.8 % Critically high 43.0-75.0 [facility] Comment on above: Performed By: #### C BC #### [facility] [address] [place] [address] Dr. Scooby Irvin Platelet mean volume (Bld) [Entitic vol] 10.2 fL Normal 9.5-13.5 [facility] Comment on above: Performed By: #### C BC #### [facility] [address] [place] [address] Dr. Scooby Irvin PLT 217 103/ul Normal 150-450 [facility] Comment on above: Performed By: #### C BC #### [facility] [address] [place] [address] Dr. Scooby Irvin RBC 4.20 106/ul Normal 4.20-5.40 [facility] Comment on above: Performed By: #### C BC #### [facility] [address] [place] [address] Dr. Scooby Irvin WBC 11.4 103/ul Critically high 4.0-11.0 [facility] Comment on above: Performed By: #### C BC #### [facility] [address] [place] [address] Dr. Scooby Irvin PROF 14(COMP METB)on 022 Albumin [Mass/Vol] 3.9 g/dL Normal 3.5-5.0 [facility] Comment on above: Performed By: #### C MP #### [facility] [address] [place] [address] Dr. Scooby Irvin Albumin/Globulin [Mass ratio] 1.1 {ratio} Normal [facility] Comment on above: Performed By: #### C MP #### [facility] [address] [place] [address] Dr. Scooby Irvin ALP [Catalytic activity/Vol] 72 U/L Normal 38-126 [facility] Comment on above: Performed By: #### C MP #### [facility] [address] [place] [address] Dr. Scooby Irvin ALT [Catalytic activity/Vol] 23 U/L Normal 9-52 [facility] Comment on above: Performed By: #### C MP #### [facility] [address] [place] [address] Dr. Scooby Irvin Anion gap [Moles/Vol] 10.2 mmol/L Normal [facility] Comment on above: Performed By: #### C MP #### [facility] [address] [place] [address] Dr. Scooby Irvin AST [Catalytic activity/Vol] 20 U/L Normal 14-36 [facility] Comment on above: Performed By: #### C MP #### [facility] [address] [place] [address] Dr. Scooby Irvin Bilirubin [Mass/Vol] 0.5 mg/dL Normal 0.2-1.3 [facility] Comment on above: Performed By: #### C MP #### [facility] [address] [place] [address] Dr. Scooby Irvin Calcium [Mass/Vol] 8.8 mg/dL Normal 8.4-10.2 [facility] Comment on above: Performed By: #### C MP #### [facility] [address] [place] [address] Dr. Scooby Irvin Chloride [Moles/Vol] 104 mmol/L Normal 98-107 [facility] Comment on above: Performed By: #### C MP #### [facility] [address] [place] [address] Dr. Scooby Irvin CO2 [Moles/Vol] 28.0 mmol/L Normal 22.0-30.0 [facility] Comment on above: Performed By: #### C MP #### [facility] [address] [place] [address] Dr. Scooby Irvin Creatinine [Mass/Vol] 0.87 mg/dL Normal 0.52-1.04 [facility] Comment on above: Performed By: #### C MP #### [facility] [address] [place] [address] Dr. Scooby Irvin EGFR-AF SERBIAN >60 Normal >=60 [facility] Comment on above: Performed By: #### C MP #### [facility] [address] [place] [address] Dr. Scooby Irvin EGFR-NON AF SERBIAN >60 Normal >=60 [facility] Comment on above: Performed By: #### C MP #### [facility] [address] [place] [address] Dr. Scooby Irvin Globulin (S) [Mass/Vol] 3.5 g/dL Normal [facility] Comment on above: Performed By: #### C MP #### [facility] [address] [place] [address] Dr. Scooby Irvin Glucose [Mass/Vol] 93 mg/dL Normal 74-106 [facility] Comment on above: Performed By: #### C MP #### [facility] [address] [place] [address] [address] Scooby Irvin Potassium [Moles/Vol] 4.2 mmol/L Normal 3.4-5.0 [facility] Comment on above: Performed By: #### C MP #### [facility] [address] [place] [address] [address] Scooby Irvin Protein [Mass/Vol] 7.4 g/dL Normal 6.1-8.2 [facility] Comment on above: Performed By: #### C MP #### [facility] [address] [place] [address] [address] Scooby Irvin Sodium [Moles/Vol] 138 mmol/L Normal 137-145 [facility] Comment on above: Performed By: #### C MP #### [facility] [address] [place] [address] [address] Scooby Irvin Urea nitrogen [Mass/Vol] 15.0 mg/dL Normal 7.0-17.0 [facility] Comment on above: Performed By: #### C MP #### [facility] [address] [place] [address] [address] Scooby Irvin Urea nitrogen/Creatinine [Mass ratio] 17.2 mg/mg Normal [facility] Comment on above: Performed By: #### C MP #### [facility] [address] [place] [address] [address] Scooby Irvin PET CT SKULL BASE MID THIGHo n 04-07-[address] SKULL BASE MID THIGH EXAMINATION: PET CT SKULL BASE MID THIGH HISTORY: Lung field abnormal COMPARISON: [facility] TECHNIQUE: After obtaining the patient's consent, F-[id number] [...] by: FUENTES BARRETO Date: 2021-04-07 08:23 Normal [facility] CT LUNG CANCER SCREENINGon 0 03-23-2021 [...] FUENTES BARRETO Date: 2021-03-23 09:57 Normal [facility] CBC AUTO DIFFon 03-09-2021 BASO # 0.1 103/ul Normal 0.0-0.1 [facility] Comment on above: Performed By: #### C BC #### [facility] [address] [place] [address] [address] Scooby Irvin Basophils/100 WBC (Bld) 1.2 % Normal 0.2-2.0 [facility] Comment on above: Performed By: #### C BC #### [facility] [address] [place] [address] [address] Scooby Irvin EO # 0.1 103/ul Normal 0.0-0.7 [facility] Comment on above: Performed By: #### C BC #### [facility] [address] [place] [address] Dr. Scooby Irvin Eosinophils/100 WBC (Bld) 1.4 % Normal 0.9-7.0 [facility] Comment on above: Performed By: #### C BC #### [facility] [address] [place] [address] [address] Scooby Irvin Erythrocyte distribution width (RBC) [Ratio] 16.3 % Critically high 11.0-15.0 [facility] Comment on above: Performed By: #### C BC #### [facility] [address] [place] [address] Dr. Scooby Irvin Hematocrit (Bld) [Volume fraction] 39.6 % Normal 36.0-48.0 [facility] Comment on above: Performed By: #### C BC #### [facility] [address] [address] [address] Scooby Irvin Hemoglobin (Bld) [Mass/Vol] 12.6 g/dL Normal 12.0-16.0 [facility] Comment on above: Performed By: #### C BC #### [facility] [address] [address] [address] Scooby Irvin IG # 0.01 10e3/ul Normal 0.00-0.03 [facility] Comment on above: Performed By: #### C BC #### [facility] [address] [place] [address] Dr. Scooby Irvin IG % 0.2 % Normal 0.0-0.5 [facility] Comment on above: Performed By: #### C BC #### [facility] [address] [place] [address] Dr. Scooby Irvin LYMPH # 1.6 103/ul Normal 1.2-3.8 [facility] Comment on above: Performed By: #### C BC #### [facility] [address] [place] [address] Dr. Scooby Irvin Lymphocytes/100 WBC (Bld) 30.7 % Normal 20.5-60.0 [facility] Comment on above: Performed By: #### C BC #### [facility] [address] [place] [address] Dr. Scooby Irvin MANUAL DIFF REQ NO Normal [facility] Comment on above: Performed By: #### C BC #### [facility] [address] [place] [address] Dr. Scooby Irvin MCH (RBC) [Entitic mass] 28.4 pg Normal 26.7-34.0 [facility] Comment on above: Performed By: #### C BC #### [facility] [address] [place] [address] Dr. Scooby Irvin MCHC (RBC) [Mass/Vol] 31.8 g/dL Normal 29.9-35.2 [facility] Comment on above: Performed By: #### C BC #### [facility] [address] [place] [address] Dr. Scooby Irvin MCV (RBC) [Entitic vol] 89.2 fL Normal 81.0-99.0 [facility] Comment on above: Performed By: #### C BC #### [facility] [address] [place] [address] Dr. Scooby Irvin MONO # 0.6 103/ul Normal 0.3-0.8 [facility] Comment on above: Performed By: #### C BC #### [facility] [address] [place] [address] Dr. Scooby Irvin Monocytes/100 WBC (Bld) 11.5 % Normal 1.7-12.0 [facility] Comment on above: Performed By: #### C BC #### [facility] [address] [place] [address] Dr. Scooby Irvin NEUT # 2.8 103/ul Normal 1.4-6.5 [facility] Comment on above: Performed By: #### C BC #### [facility] [address] [place] [address] Dr. Scooby Irvin Neutrophils/100 WBC (Bld) 55.0 % Normal 43.0-75.0 [facility] Comment on above: Performed By: #### C BC #### [facility] [address] [place] [address] Dr. Scooby Irvin Platelet mean volume (Bld) [Entitic vol] 10.3 fL Normal 9.5-13.5 [facility] Comment on above: Performed By: #### C BC #### [facility] [address] [place] [address] Dr. Scooby Irvin PLT 208 103/ul Normal 150-450 [facility] Comment on above: Performed By: #### C BC #### [facility] [address] [place] [address] Dr. Scooby Irvin RBC 4.44 106/ul Normal 4.20-5.40 [facility] Comment on above: Performed By: #### C BC #### [facility] [address] [place] [address] Dr. Scooby Irvin WBC 5.1 103/ul Normal 4.0-11.0 [facility] Comment on above: Performed By: #### C BC #### [facility] [address] [place] [address] Dr. Scooby Irvin FREE T4on 03-09-2021 Free T4 [Mass/Vol] 1.15 ng/dL Normal 0.78-2.19 [facility] Comment on above: Performed By: #### C BC #### [facility] [address] [place] [address] Dr. Scooby Irvin LIPID PROFILEon 03-09-2021 CHOL-HDL RATIO NORM SEE BELOW Normal [facility] Comment on above: Result Comment: 3.3 - 4.4 LOW RISK 4.4 - 7.1 AVERAGE RISK 7.1 - 11.0 MODERATE RISK >11.0 HIGH RISK Performed By: #### L IPID, CMP, TSH #### [facility] [address] [address] [address] Scooby Irvin Cholesterol [Mass/Vol] 227 mg/dL Critically high <=200 [facility] Comment on above: Performed By: #### L IPID, CMP, TSH #### [facility] [address] [place] [address] Dr. Scooby Irvin Cholesterol in HDL [Mass/Vol] 65 mg/dL Normal [facility] Comment on above: Performed By: #### L IPID, CMP, TSH #### [facility] [address] [place] [address] Dr. Scooby Irvin Cholesterol in LDL [Mass/Vol] 142.6 mg/dL Normal [facility] Comment on above: Performed By: #### L IPID, CMP, TSH #### [facility] [address] [place] [address] Dr. Scooby Irvin Cholesterol.total/Chol esterol in HDL [Mass ratio] 3.5 {ratio} Normal [facility] Comment on above: Performed By: #### L IPID, CMP, TSH #### [facility] [address] [place] [address] Dr. Scooby Irvin HDL NORMAL > or = 60 mg/dl - LO W CARDIOVASCULAR RISK <40 mg/dl - HIGH CARDIOVASCULAR RISK Normal [facility] Comment on above: Performed By: #### L IPID, CMP, TSH #### [facility] [address] [place] [address] Dr. Scooby Irvin LDL CALC NORMAL SEE BELOW Normal [facility] Comment on above: Result Comment: <100 mg/dl OPTIMAL 100 - 129 mg/dl NEAR OR ABOVE OPTIMAL 130 - 159 mg/dl BORDERLINE HIGH 160 - 189 mg/dl HIGH >190 mg/dl VERY HIGH Performed By: #### L IPID, CMP, TSH #### [facility] [address] [address] [address] Scooby Irvin Triglyceride [Mass/Vol] 97 mg/dL Normal <=150 [facility] Comment on above: Performed By: #### L IPID, CMP, TSH #### [facility] [address] [place] [address] Dr. Scooby Irvin VLDL CALC 19.4 mg/dL Normal [facility] Comment on above: Performed By: #### L IPID, CMP, TSH #### [facility] [address] [place] [address] Dr. Scooby Irvin PROF 14(COMP METB)on 022 Albumin [Mass/Vol] 4.0 g/dL Normal 3.5-5.0 [facility] Comment on above: Performed By: #### L IPID, CMP, TSH #### [facility] [address] [place] [address] Dr. Scooby Irvin Albumin/Globulin [Mass ratio] 1.1 {ratio} Normal [facility] Comment on above: Performed By: #### L IPID, CMP, TSH #### [facility] [address] [place] [address] Dr. Scooby Irvin ALP [Catalytic activity/Vol] 80 U/L Normal 38-126 [facility] Comment on above: Performed By: #### L IPID, CMP, TSH #### [facility] [address] [place] [address] Dr. Scooby Irvin ALT [Catalytic activity/Vol] 35 U/L Normal 9-52 [facility] Comment on above: Performed By: #### L IPID, CMP, TSH #### [facility] [address] [place] [address] Dr. Scooby Irvin Anion gap [Moles/Vol] 11.8 mmol/L Normal [facility] Comment on above: Performed By: #### L IPID, CMP, TSH #### [facility] [address] [place] [address] Dr. Scooby Irvin AST [Catalytic activity/Vol] 24 U/L Normal 14-36 [facility] Comment on above: Performed By: #### L IPID, CMP, TSH #### [facility] [address] [place] [address] Dr. Scooby Irvin Bilirubin [Mass/Vol] 0.5 mg/dL Normal 0.2-1.3 [facility] Comment on above: Performed By: #### L IPID, CMP, TSH #### [facility] [address] [place] [address] Dr. Scooby Irvin Calcium [Mass/Vol] 9.3 mg/dL Normal 8.4-10.2 [facility] Comment on above: Performed By: #### L IPID, CMP, TSH #### [facility] [address] [place] [address] Dr. Scooby Irvin Chloride [Moles/Vol] 105 mmol/L Normal 98-107 [facility] Comment on above: Performed By: #### L IPID, CMP, TSH #### [facility] [address] [place] [address] Dr. Scooby Irvin CO2 [Moles/Vol] 26.2 mmol/L Normal 22.0-30.0 [facility] Comment on above: Performed By: #### L IPID, CMP, TSH #### [facility] [address] [place] [address] Dr. Scooby Irvin Creatinine [Mass/Vol] 0.83 mg/dL Normal 0.52-1.04 [facility] Comment on above: Performed By: #### L IPID, CMP, TSH #### [facility] [address] [place] [address] Dr. Scooby Irvin EGFR-AF SERBIAN >60 Normal >=60 [facility] Comment on above: Performed By: #### L IPID, CMP, TSH #### [facility] [address] [place] [address] Dr. Scooby Irvin EGFR-NON AF SERBIAN >60 Normal >=60 [facility] Comment on above: Performed By: #### L IPID, CMP, TSH #### [facility] [address] [place] [address] Dr. Scooby Irvin Globulin (S) [Mass/Vol] 3.8 g/dL Normal [facility] Comment on above: Performed By: #### L IPID, CMP, TSH #### [facility] [address] [address] [address] Scooby Irvin Glucose [Mass/Vol] 112 mg/dL Critically high 74-106 [facility] Comment on above: Performed By: #### L IPID, CMP, TSH #### [facility] [address] [place] [address] Dr. Scooby Irvin Potassium [Moles/Vol] 4.0 mmol/L Normal 3.4-5.0 [facility] Comment on above: Performed By: #### L IPID, CMP, TSH #### [facility] [address] [place] [address] Dr. Scooby Irvin Protein [Mass/Vol] 7.8 g/dL Normal 6.1-8.2 [facility] Comment on above: Performed By: #### L IPID, CMP, TSH #### [facility] [address] [place] [address] Dr. Scooby Irvin Sodium [Moles/Vol] 139 mmol/L Normal 137-145 [facility] Comment on above: Performed By: #### L IPID, CMP, TSH #### [facility] [address] [place] [address] Dr. Scooby Irvin Urea nitrogen [Mass/Vol] 15.0 mg/dL Normal 7.0-17.0 [facility] Comment on above: Performed By: #### L IPID, CMP, TSH #### [facility] [address] [place] [address] Dr. Scooby Irvin Urea nitrogen/Creatinine [Mass ratio] 18.1 mg/mg Normal [facility] Comment on above: Performed By: #### L IPID, CMP, TSH #### [facility] [address] [place] [address] Dr. Scooby Irvin TSHon 03-09-2021 TSH 2.761 uIU/mL Normal 0.470-4.68 0 [facility] Comment on above: Performed By: #### L IPID, CMP, TSH #### [facility] [address] [place], [place] [address] Dr. Scooby Irvin TSH RANGE SEE BELOW Normal [facility] Comment on above: Result Comment: <0.3 4 UIU/ml HYPERTHYROID 0.34-5.60 UIU/ml EUTHYROID >5.60 UIU/ml HYPOTHYROID Performed By: #### L IPID, CMP, TSH #### [facility] [address] [place], [place] [address] Dr. Scooby Irvin Vital Signs Date Time Vital Sign Value Performing Clinician Facility 11-04-2024 11:12-0400 Body weight 75.5 kg Laurita Morales MD Work Phone: [facility] 10-19-2024 09:24-0400 Diastolic blood pressure 78 mm[Hg] Laurita Morales MD Work Phone: [facility] 10-19-2024 09:24-0400 Systolic blood pressure 132 mm[Hg] Laurita Morales MD Work Phone: [facility] 10-19-2024 08:54-0400 Body height 139.7 cm Laurita Morales MD Work Phone: [facility] 10-19-2024 08:54-0400 Body mass index (BMI) [Ratio] 38.1 kg/m2 Laurita Morales MD Work Phone: [facility] 10-19-2024 08:54-0400 Body weight 74.38 kg Laurita Morales MD Work Phone: [facility] 10-19-2024 08:54-0400 Heart rate 77 /min Laurita Morales MD Work Phone: [facility] 09-30-2024 09:54-0400 Body height 140.97 cm Lauriat Morales MD Work Phone: [facility] 09-30-2024 09:54-0400 Body mass index (BMI) [Ratio] 37.5 kg/m2 Laurita Morales MD Work Phone: [facility] 09-30-2024 09:54-0400 Body weight 74.6 kg Laurita Morales MD Work Phone: [facility] 06-23-2024 13:30-0400 Body height 149.9 cm Dolly ORR Work Phone: [facility] 06-23-2024 13:30-0400 Body mass index (BMI) [Ratio] 32.11 kg/m2 Dolly ORR Work Phone: [facility] 06-23-2024 13:30-0400 Body weight 72.12 kg Dolly ORR Work Phone: [facility] 04-21-2024 08:53-0400 Body height 140.97 cm [facility] 04-21-2024 08:53-0400 Body mass index (BMI) [Ratio] 36.5 kg/m2 [facility] 04-21-2024 08:53-0400 Body weight 72.57 kg [facility] 04-21-2024 08:53-0400 Diastolic blood pressure 70 mm[Hg] [facility] 04-21-2024 08:53-0400 Heart rate 80 /min [facility] 04-21-2024 08:53-0400 Systolic blood pressure 128 mm[Hg] [facility] 03-20-2024 10:54-0500 Blood Pressure Location Salazar Sarmini [facility] 03-20-2024 10:54-0500 Diastolic blood pressure 74 mm[Hg] Salazar Sarmini [facility] 03-20-2024 10:54-0500 Heart rate 71 /min Salazar Sarmini [facility] 03-20-2024 10:54-0500 Systolic blood pressure 129 mm[Hg] Salazar Sarmini [facility] 01-30-2024 13:46-0500 Diastolic blood pressure 82 mm[Hg] Salazar Sarmini [facility] 01-30-2024 13:46-0500 Mean blood pressure 104 mm[Hg] Salazar Sarmini [facility] 01-30-2024 13:46-0500 Systolic blood pressure 148 mm[Hg] Salazar Sarmini [facility] 01-30-2024 13:41-0500 Blood Pressure Location Salazar Sarmini [facility] 01-30-2024 13:41-0500 Diastolic blood pressure 85 mm[Hg] Salazar Sarmini [facility] 01-30-2024 13:41-0500 Heart rate 80 /min Salazar Sarmini [facility] 01-30-2024 13:41-0500 Systolic blood pressure 157 mm[Hg] Salazar Sarmini [facility] 01-15-2024 13:25-0500 Diastolic blood pressure 86 mm[Hg] Salazar Sarmini [facility] 01-15-2024 13:25-0500 Heart rate 79 /min Salazar Sarmini [facility] 01-15-2024 13:25-0500 Mean blood pressure 108 mm[Hg] Salazar Sarmini [facility] 01-15-2024 13:25-0500 Respiratory rate 17 /min Salazar Sarmini [facility] 01-15-2024 13:25-0500 SaO2% (BldA) [Mass fraction] 96 % Salazar Sarmini [facility] 01-15-2024 13:25-0500 Systolic blood pressure 153 mm[Hg] Salazar Sarmini [facility] 01-15-2024 13:15-0500 Diastolic blood pressure 81 mm[Hg] Salazar Sarmini [facility] 01-15-2024 13:15-0500 Heart rate 79 /min Salazar Sarmini [facility] 01-15-2024 13:15-0500 Mean blood pressure 103 mm[Hg] Salazar Sarmini [facility] 01-15-2024 13:15-0500 Respiratory rate 17 /min Salazar Sarmini [facility] 01-15-2024 13:15-0500 SaO2% (BldA) [Mass fraction] 96 % Salazar Sarmini [facility] 01-15-2024 13:15-0500 Systolic blood pressure 148 mm[Hg] Salazar Sarmini [facility] 01-15-2024 13:00-0500 Diastolic blood pressure 70 mm[Hg] Salazar Sarmini [facility] 01-15-2024 13:00-0500 Heart rate 72 /min Salazar Sarmini [facility] 01-15-2024 13:00-0500 Mean blood pressure 93 mm[Hg] Salazar Sarmini [facility] 01-15-2024 13:00-0500 SaO2% (BldA) [Mass fraction] 97 % Salazar Sarmini [facility] 01-15-2024 13:00-0500 Systolic blood pressure 140 mm[Hg] Salazar Sarmini [facility] 01-15-2024 12:50-0500 Body temperature 98.24 [degF] Salazar Sarmini [facility] 01-15-2024 12:44-0500 Respiratory rate 18 /min Salazar Sarmini [facility] 01-15-2024 12:40-0500 Respiratory rate 19 /min Salazar Sarmini [facility] 01-15-2024 12:35-0500 Respiratory rate 19 /min Salazar Sarmini [facility] 01-15-2024 10:59-0500 Blood Pressure Location Salazar Sarmini [facility] 01-15-2024 10:59-0500 Body temperature 98.24 [degF] Salazar Sarmini [facility] 12-04-2023 08:58-0400 Blood Pressure Location Salazar Sarmini [facility] 12-04-2023 08:58-0400 Diastolic blood pressure 84 mm[Hg] Salazar Sarmini [facility] 12-04-2023 08:58-0400 Heart rate 84 /min Salazar Sarmini [facility] 12-04-2023 08:58-0400 Respiratory rate 16 /min Salazar Sarmini [facility] 12-04-2023 08:58-0400 Systolic blood pressure 156 mm[Hg] Salazar Sarmini [facility] 12-04-2023 08:49-0400 Blood Pressure Location Martin Tatum [facility] 12-04-2023 08:49-0400 Respiratory rate 16 /min Martin Tatum [facility] 09-04-2022 09:00-0400 Body height 140.97 cm Laurita Morales Other [employer] [facility] [employer] Other 09-04-2022 09:00-0400 Body mass index (BMI) [Ratio] 36.74 kg/m2 Laurita Morales Other [employer] Other 09-04-2022 09:00-0400 Body weight 73.03 kg Laurita Morales Other [employer] Other 09-04-2022 09:00-0400 Diastolic blood pressure 78 mm[Hg] Laurita Morales Other [employer] Other 09-04-2022 09:00-0400 SaO2% (BldA) [Mass fraction] 97 % Laurita Morales Other [employer] Other 09-04-2022 09:00-0400 Systolic blood pressure 132 mm[Hg] Laurita Morales Other [employer] Other 03-01-2022 10:30-0500 Body height 140.97 cm Laurita Morales Other [employer] Other 03-01-2022 10:30-0500 Body mass index (BMI) [Ratio] 36.06 kg/m2 Laurita Morales Other [employer] Other 03-01-2022 10:30-0500 Body weight 71.67 kg Laurita Morales Other [employer] Other 03-01-2022 10:30-0500 Diastolic blood pressure 84 mm[Hg] Laurita Morales Other [employer] Other 03-01-2022 10:30-0500 SaO2% (BldA) [Mass fraction] 98 % Laurita Morales Other [employer] Other 03-01-2022 10:30-0500 Systolic blood pressure 132 mm[Hg] Laurita Morales Other [employer] Other 11-08-2021 10:17-0400 Diastolic blood pressure 74 mm[Hg] Farooq SALAM [facility] 11-08-2021 10:17-0400 Mean blood pressure 99 mm[Hg] Farooq SALAM [facility] 11-08-2021 10:17-0400 Systolic blood pressure 148 mm[Hg] Farooq SALAM [facility] 11-08-2021 10:15-0400 Blood Pressure Location Farooq SALAM [facility] 11-08-2021 10:15-0400 Diastolic blood pressure 95 mm[Hg] Farooq SALAM [facility] 11-08-2021 10:15-0400 Heart rate 78 /min Farooq SALAM [facility] 11-08-2021 10:15-0400 Respiratory rate 16 /min Farooq SALAM [facility] 11-08-2021 10:15-0400 Systolic blood pressure 159 mm[Hg] Farooq SALAM [facility] 05-10-2021 11:11-0400 Diastolic blood pressure 90 mm[Hg] Farooq SALAM [facility] 05-10-2021 11:11-0400 Systolic blood pressure 180 mm[Hg] Farooq SALAM [facility] Encounters Encounter Date Encounter Type Care Provider Facility Start: 11-04-2024 End: 11-04-2024 ambulatory Laurita Morales MD Work Phone: [facility] Work Phone: Start: 11-04-2024 End: 11-04-2024 [facility] Start: 10-28-2024 End: 10-28-2024 ambulatory Laurita Morales MD Work Phone: [facility] Work Phone: Start: 10-28-2024 End: 10-28-2024 Patient encounter procedure Sin Alvarez DO -[facility] [place] Work Phone: Start: 10-20-2024 Non-patient / Non-visit Laurita willis MD -[facility] Work Phone: Start: 10-19-2024 End: 10-19-2024 Patient encounter procedure Laurita Morales MD -[facility] Work Phone: Start: 09-30-2024 End: 09-30-2024 ambulatory Laurita Morales MD Work Phone: [facility] Work Phone: Start: 09-30-2024 End: 09-30-2024 Patient encounter procedure Nasim Segal [facility] Work Phone: Start: 08-20-2024 End: 08-20-2024 Bamboo flowsheet Dolly Powell Rito PA Work Phone: [facility] Start: 08-20-2024 End: 08-20-2024 Bamboo flowsheet Dolly Powell Rito PA Work Phone: [facility] Start: 08-20-2024 End: 08-20-2024 Postop follow up visit related to original px Dolly Powell Rito PA Work Phone: [facility] Comment on above: S/P right knee arthr oscopy (Primary Dx) Start: 08-20-2024 End: 08-20-2024 ambulatory DOLLY VERAS Not Available Start: 08-10-2024 End: 08-10-2024 ambulatory Zulay Cook MD Facility:[facility] Start: 07-22-2024 End: 07-22-2024 Bamboo flowsheet Dolly Veras PA Work Phone: [facility] Start: 07-22-2024 End: 07-22-2024 Bamboo flowsheet Dolly Powell Rito PA Work Phone: [facility] Start: 07-22-2024 End: 07-22-2024 Postop follow up visit related to original px Dolly Powell Rito PA Work Phone: [facility] Comment on above: S/P right knee arthr oscopy (Primary Dx) Start: 07-22-2024 End: 07-22-2024 ambulatory DOLLY VERAS Not Available Start: 07-03-2024 End: 07-06-2024 Refill Abhi Ramires 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: [facility] Comment on above: Acute medial meniscu [...] 06-30-2024 End: 06-30-2024 Preprocedural examination done Sofia Bull PT [facility] Start: 06-24-2024 End: 06-24-2024 Clinisync Result Encounter Dolly ORR Work Phone: [facility] External Department Unsolicited Start: 06-24-2024 End: 06-24-2024 Clinisync Result Encounter Dolly Andre Veras PA Work Phone: [facility] External Department Unsolicited Start: 06-23-2024 End: 06-23-2024 Bamboo flowsheet Dolly Veras PA Work Phone: [facility] Start: 06-23-2024 End: 06-23-2024 Bamboo flowsheet Dolly Veras PA Work Phone: [facility] Start: 06-23-2024 End: 06-23-2024 Patient encounter procedure Dolly Veras PA Work Phone: [facility] Comment on above: Pre-op examination ( Primary Dx) Start: 06-23-2024 End: 06-23-2024 Preprocedural examination done Dolly Veras PA Work Phone: [facility] Start: 06-23-2024 End: 06-23-2024 ambulatory DOLLY VERAS Not Available Start: 05-13-2024 End: 05-13-2024 Bamboo flowsbridget Hurley Stepanic DO Work Phone: [facility] Start: 05-13-2024 End: 05-13-2024 Vito Hurley Stepanic DO Work Phone: [facility] Start: 05-13-2024 End: 05-13-2024 Office outpatient visit 25 minutes Jr. Larissa Hurley Stepanic DO Work Phone: [facility] Comment on above: Acute pain of right knee (Primary Dx); Acute medial meniscus tear of right knee, initial encounter Start: 05-13-2024 End: 05-13-2024 ambulatory LARISSA CABRERA Not Available Start: 05-04-2024 End: 05-04-2024 ambulatory Zulay Cook MD Facility: [facility] Start: 04-21-2024 End: 04-21-2024 ambulatory [facility] Work Phone: Start: 04-21-2024 End: 04-21-2024 [facility] Work [facility]: Start: 04-15-2024 End: 04-15-2024 Office outpatient visit 25 minutes JrEtta Guerrero DO Work Phone: [facility] Comment on above: Acute pain of left k nee (Primary Dx); Acute pain of right knee; Acute medial meniscus tear of right knee, initial encounter Start: 04-15-2024 End: 04-15-2024 Bamboo flowsheet Jr. Larissa Hurley Stepanic DO Work Phone: [facility] Start: 04-15-2024 End: 04-15-2024 Bamboo flowsheet JrEtta Hurley Stepanic DO Work Phone: [facility] Start: 04-15-2024 End: 04-15-2024 ambulatory LARISSA CABRERA Not Available Start: 03-20-2024 End: 03-20-2024 ambulatory Salazar Talal Sarmini Facility:[facility] Start: 03-20-2024 End: 03-20-2024 [facility] Start: 03-18-2024 End: 03-18-2024 Office outpatient visit 15 minutes JrEtta Guerrero DO Work Phone: [facility] Comment on above: Left knee pain, unsp ecified chronicity (Primary Dx); Internal derangement of left knee; Arthritis of left knee Start: 03-18-2024 End: 03-18-2024 ambulatory LARISSA CABRERA Not Available Start: 03-02-2024 End: 03-02-2024 Telephone encounter Adali Peña Giordano 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: [facility] Comment on above: MRI Start: 02-17-2024 End: 02-17-2024 Bamboo flowsheet Adali Peña Apling 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: [facility] Start: 02-17-2024 End: 02-17-2024 Bamboo flowsheet Adali Peña Malcolming 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: [facility] Start: 02-17-2024 End: 02-17-2024 Office outpatient visit 15 minutes Adali Giordano 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: [facility] Comment on above: S/P left knee arthro scopy (Primary Dx); Left knee pain, unspecified chronicity; Arthritis of left knee; Internal derangement of left knee Start: 02-17-2024 End: 02-17-2024 ambulatory ADALI GIORDANO Not Available Start: 01-30-2024 End: 01-30-2024 ambulatory [facility] Start: 01-30-2024 End: 01-30-2024 [facility] Start: 01-20-2024 End: 01-20-2024 Bamboo flowsheet Adali Peña Giordano 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: [facility] Start: 01-20-2024 End: 01-20-2024 Bamboo flowsheet Adali Malcolming 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: [facility] Start: 01-20-2024 End: 01-20-2024 Office outpatient visit 25 minutes Adali Giordano 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: [facility] Comment on above: S/P left knee arthro scopy (Primary Dx); Left knee pain, unspecified chronicity; Arthritis of left knee Start: 01-20-2024 End: 01-20-2024 ambulatory ADALI GIORDANO Not Available Start: 01-15-2024 End: 01-15-2024 Patient encounter procedure Salazar Talal Sarmini [facility] Start: 12-31-2023 End: 12-31-2023 Bamboo flowsheet Abhi Ramires 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: [facility] Start: 12-31-2023 End: 12-31-2023 Bamboo flowsheet Abhi Ramires 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: [facility] Start: 12-31-2023 End: 12-31-2023 Postop follow up visit related to original px Abhi Ramires NP Work Phone: [facility] Comment on above: S/P left knee arthro scopy (Primary Dx); Left knee pain, unspecified chronicity Start: 12-31-2023 End: 12-31-2023 ambulatory ABHI RAMIRES Not Available Start: 12-06-2023 End: 12-06-2023 ambulatory Salazar Talal Sarmini Facility:[facility] Start: 12-06-2023 End: 12-06-2023 Lab Drop off Salazar Talal Sarmini [facility] Start: 12-04-2023 End: 12-04-2023 ambulatory Salazar Talal Sarmini Facility:[facility] Start: 12-04-2023 End: 12-04-2023 Patient encounter procedure Salazar Talal Sarmini [facility] Start: 12-04-2023 ambulatory Salazar Talal Sarmini Facility:[facility] Start: 12-04-2023 End: 12-04-2023 Patient encounter procedure Salazar Talal Sarmini [facility] Start: 11-26-2023 ambulatory Martin Skinner ty:ASHOK Varma Start: 11-13-2023 End: 11-13-2023 Bamboo flowsheet Adali B Apling 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: [facility] Start: 11-13-2023 End: 11-13-2023 Bamboo flowsheet Adali B Apling 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: [facility] Start: 11-13-2023 End: 11-13-2023 Postop follow up visit related to original px Adali B Apling 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: [facility] Comment on above: Arthritis of left kn ee (Primary Dx); S/P left knee arthroscopy Start: 11-13-2023 End: 11-13-2023 ambulatory ADALI B APLING Not Available Start: 10-16-2023 End: 10-16-2023 Bamboo flowsheet Adali B Apling 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: [facility] Start: 10-16-2023 End: 10-16-2023 Bamboo flowsheet Adali B Apling 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: [facility] Start: 10-16-2023 End: 10-16-2023 Postop follow up visit related to original px Adali B Apling 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: [facility] Comment on above: Arthritis of left kn ee (Primary Dx); S/P left knee arthroscopy Start: 10-16-2023 End: 10-16-2023 ambulatory ADALI B APLING Not Available Start: 10-08-2023 End: 10-08-2023 Refill Abhi Ramires 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: [facility] Comment on above: Post-op pain (Primar y Dx) Start: 09-10-2023 End: 09-10-2023 ambulatory DANIELLE CURRAN Not Available Start: 09-09-2023 Patient encounter procedure [facility] Start: 08-26-2023 End: 08-26-2023 ambulatory ADALI GIORDANO Not Available Start: 03-07-2023 End: 03-07-2023 ambulatory Laurita Morales Other [employer] Other Start: 03-07-2023 Office outpatient vi sit 15 minutes Laurita Morales [facility] Start: 09-20-2022 End: 09-20-2022 ambulatory Laurita Morales Other [employer] Other Start: 09-20-2022 Telephone encounter Laurita Morales [facility] Start: 09-04-2022 End: 09-04-2022 ambulatory Laurita Morales Other [employer] Other Start: 09-04-2022 Patient encounter procedure Laurita Morales [facility] Start: 04-19-[address] [facility] ity:[facility] Start: 03-01-2022 End: 03-01-2022 ambulatory Laurita Morales Other [employer] Other Start: 03-01-2022 Office outpatient vi sit 15 minutes Laurita Morales [facility] Start: 01-18-2022 End: 01-19-[address] LAURITA MORALES Facility:[facility] Start: 11-21-2021 End: 11-22-2021 ambulatory CAPRI FULLER Facility:[facility] Start: 11-08-2021 End: 11-08-2021 Patient encounter procedure Capri FULLER [facility] Start: 10-19-2021 End: 10-20-[address] LAURITA MORALES Facility:[facility] Start: 09-27-2021 End: 09-28-[address] LAURITA MORALES Facility:[facility] Start: 09-26-2021 End: 09-26-[address] LAURITA MORALES Facility:[facility] Start: 09-25-2021 Encounter for preprocedural laboratory examination DR RADHA IRAHETA [facility] Start: 09-22-2021 End: 09-23-[address] LAURITA MORALES Facility:[facility] Start: 09-22-2021 End: 09-23-2021 Encounter for preprocedural laboratory examination DR LAURITA MORALES Facility:[facility] Start: 09-11-[address] LAURITA MORALES Facil ity:[facility] Start: 09-06-2021 End: 09-07-2021 ambulatory ROBERTO MCNALLY Facility:[facility] Start: 08-30-2021 Adult health examination Malia Morales Other [facility] [employer] Other Start: 06-22-2021 End: 06-23-2021 ambulatory CAPRI FULLER Facility:[facility] Start: 05-31-2021 End: 05-31-2021 ambulatory Luis Gutierrez Facility:[facility] Start: 05-26-2021 End: 05-26-2021 ambulatory Laurita Morales Facility:[facility] Start: 05-26-2021 End: 05-26-2021 Patient encounter procedure MD Cy Sears Work Phone: [facility] Start: 05-22-2021 End: 05-23-[address] LAURITA MORALES Facility:[facility] Start: 05-10-2021 End: 05-10-2021 Patient encounter procedure Capri FULLER [facility] Start: 05-04-2021 End: 05-04-2021 ambulatory Cy Sears Facility:[facility] Start: 05-04-2021 End: 05-04-2021 Patient encounter procedure MD Cy Sears Work Phone: [facility] [place] Start: 04-20-2021 End: 04-21-2021 ambulatory CAPRI FULLER [...] Giordano NP Work Phone: Start: 01-15-2024 Colonoscopy Martin Lockettmini Start: 01-15-2024 Esophagogastroduodenoscopy Salazar Sarm ini Start: 09-12-2023 Tear of meniscus of knee (disorder) Salazar Sarmini Start: 09-04-2023 History of thyroidectomy Status post total thyroidectomy Abhi Ramires NP Work Phone: Start: 05-31-2021 Antibody screen Luis Matt Comment on above: Order Comment: Transfuse now? N Result Comment: PERF ORMED BY: [address] [place] [address] PATHOLOGIST COBBLER APPRENTICE TRICIA OSHEA M.D. Start: 02-16-2020 Colonoscopy Abhi Ramires NP Work Phone: Start: 02-16-2020 Colonoscopy w/biopsy single/multiple Farooq SALAM Colonoscopy Farooq SALAM History of appendectomy Muha mmad Sarmini History of thyroidectomy [facility] ammad Sarmini Screening for malign ant neoplasm of breast Laurita Morales Other Plan of Treatment Date Care Activity Detail Author Start: 01-14-2034 Screening for malign ant neoplasm of colon [facility] Start: 02-15-2030 Screening for malign ant neoplasm of colon [facility] Start: 10-12-2024 Influenza vaccination Influenza Vacc ine (#1) [facility] Start: 09-30-2024 Patient referral [facility] Work Phone: Start: 08-20-2024 End: 08-20-2024 Patient encounter procedure [facility] Comment on above: S/P right knee arthr oscopy (Primary Dx) Start: 07-22-2024 End: 07-22-2024 Patient encounter procedure [facility] Comment on above: S/P right knee arthr oscopy (Primary Dx) Start: 07-21-2024 End: 07-21-2024 Patient encounter procedure 07/21/2024 11:15 AM EDT Office Visit [facility] [address] [place] [address] Dolly Veras, PA [address] [place] [address] [facility] Start: 06-30-2024 End: 06-30-2024 ambulatory 06/30/2024 9:30 AM EDT Evaluation [facility] [address] [facility] [address] [place] [phone] Sofia Bull, PT [facility] Start: 06-23-2024 End: 06-23-2025 Basic metabolic 1998 panel - Serum or Plasma Basic metabolic panel Lab Routine Pre-op examination Expected: 06/23/2024 (Approximate), Expires: 06/23/2025 [facility] Work Phone: Comment on above: Expected: 06/23/2024 (Approximate), Expires: 06/23/2025 Start: 06-23-2024 End: 06-23-2024 Patient encounter procedure [facility] Comment on above: Pre-op examination ( Primary Dx) Start: 05-13-2024 End: 05-13-2024 Patient encounter procedure [facility] Comment on above: Arrived Start: 04-15-2024 End: 04-15-2024 Patient encounter procedure 04/15/2024 2:15 PM EST Office Visit [facility] [address] [place] [address] Jr. Larissa Guerrero DO [address] [place] [address] Acute pain of left knee [facility] [...] [facility] [address] [place] [phone] Adali Giordano NP [address] [place] [address] S/P left knee arthroscopy (Primary Dx); Left [...] ORTHOPAEDICS [address] [place] [phone] Abhi Ramires, 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 TRUCK DRIVER [address] [place] [address] Arrived [facility] Comment on above: Arrived Start: 11-13-2023 End: 11-13-2023 Patient encounter procedure [facility] Comment on above: Arthritis of left kn ee (Primary Dx); S/P left knee arthroscopy Start: 10-16-2023 End: 10-16-2023 Patient encounter procedure [facility] Comment on above: Arrived Start: 10-13-2023 Influenza vaccination Influenza Vacc ine (#1) [facility] Start: 10-09-2023 End: 10-09-2023 Patient encounter procedure 10/09/2023 11:30 AM EDT Procedure Visit [facility] EX[facility] DEP Danielle Curran, [address] [facility] [address] [place] [address] [facility] Start: 1950 Screening for malign ant neoplasm of colon [facility] Comprehensive metabo lic 2000 panel - Serum or Plasma [facility] CT Lumbar spine WO contrast [facility] DXA Skeletal system.axial Views for bone density [facility] Patient referral [facility] Work Phone: XR Foot - right GE 3 Views [facility] XR Lumbar spine Views [facility] Immunizations Immunization Date Immunization Notes Care Provider Fa [facility] 10-19-2024 influenza, high dose seasonal, preservative-free Laurita Morales MD Work Phone: [facility] 11-13-2023 influenza virus vaccine, unspecified formulation Martin Tatum [facility] 12-03-2022 ABRYSVO - Respirator y syncytial virus (RSV), vaccine, bivalent, protein subunit RSV prefusion F, diluent reconstituted, 0.5 mL, PF Abhi Ramires 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: [facility] 12-03-2022 SARS-COV-2 (COVID-19 ) vaccine, mRNA, spike protein, LNP, PF, 50 mcg/0.5 mL Abhi Ramires 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: [facility] 11-07-2022 Influenza, Seasonal, Quadrivalent, Adjuvanted Abhi Ramires NP Work Phone: [facility] 11-07-2022 influenza virus vaccine, unspecified formulation Abhi Ramires 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: [facility] 10-01-2022 zoster vaccine recombinant Abhi Katie 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: [facility] 07-18-2022 zoster vaccine recombinant Abhi Katie 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: [facility] 11-21-2021 influenza virus vaccine, unspecified formulation Salazar Sarmini [facility] 11-21-2021 Seasonal trivalent influenza vaccine, adjuvanted, preservative free Abhi Ramires 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: [facility] 10-27-2021 SARS-CoV-2 (COVID-19 ) [id number] Salazar Levymini [facility] Comment on above: Result Comment: 2023: [id number] 12-09-2020 COVID-19 mRNA-1273 (Chicho) MD Cy Sears Work Phone: [facility] Comment on above: Result Comment: 2023: TPV70 11-15-2020 influenza virus vaccine, split virus (incl. purified surface antigen) Laurita Morales Other [employer] Other 11-15-2020 influenza virus vaccine, unspecified formulation Abhi Ramires 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: [facility] 11-11-2020 influenza virus vaccine, unspecified formulation Capri FULLER [facility] 04-26-2020 COVID-19 mRNA-1273 (Chicho) MD Cy Sears Work Phone: [facility] 03-31-2020 SARS-CoV-2 (COVID-19 ) mRNA-1273 vaccine Salazar Levymini [facility] 03-23-2020 COVID-19 mRNA-1273 (Moderna) MD Cy Sears Work Phone: [facility] 11-20-2019 influenza virus vaccine, split virus (incl. purified surface antigen) Laurita Morales Other [employer] Other 11-20-2019 influenza virus vaccine, unspecified formulation Abhi Katie 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: [facility] 07-09-2018 zoster vaccine, live Abhi O sonalen 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: [facility] 11-20-2017 pneumococcal polysaccharide vaccine, 23 valent Abhi Ramires 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: [facility] 11-14-2017 influenza virus vaccine, unspecified formulation Salazar Sarmini [facility] 11-14-2017 pneumococcal polysaccharide vaccine, 23 valent Abhi Katie 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: [facility] 11-14-2017 Seasonal trivalent influenza vaccine, adjuvanted, preservative free Abhi Katie 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: [facility] 10-24-2016 influenza virus vaccine, split virus (incl. purified surface antigen) Laurita Morales Other [employer] Other 10-24-2016 influenza virus vaccine, unspecified formulation Salazar Sarmini [facility] 10-24-2016 influenza, high dose seasonal, preservative-free Abhi Katie 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: [facility] 10-24-2016 pneumococcal conjuga te vaccine, 13 valent Laurita Morales Other [facility] [employer] Other 11-08-2015 influenza virus vaccine, unspecified formulation Salazar Sarmini [facility] 11-08-2015 Seasonal trivalent influenza vaccine, adjuvanted, preservative free Abhi Ramires 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: [facility] 11-16-2014 influenza virus vaccine, unspecified formulation Martin Tatum [facility] 11-16-2014 influenza, seasonal, injectable, preservative free Abhi Ramires 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: [facility] 08-31-2014 tetanus and diphther ia toxoids, adsorbed, preservative free, for adult use (5 Lf of tetanus toxoid and 2 Lf of diphtheria toxoid) Abhi Ramires 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: [facility] 08-31-2014 tetanus toxoid, reduced diphtheria toxoid, and acellular pertussis vaccine, adsorbed Laurita Morales Other [facility] [employer] Other 11-30-2013 pneumococcal polysaccharide vaccine, 23 valent Laurita Morales Other [facility] [employer] Other 03-24-2013 zoster vaccine, live Abhi daly 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: [facility] 11-11-2012 influenza virus vaccine, unspecified formulation Martin Tatum [facility] 11-11-2012 influenza, seasonal, injectable Abih Ramires 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: [facility] 01-29-2003 hepatitis B vaccine, adult dosage Abhi Ramires NP Work Phone: [facility] 08-10-2002 hepatitis B vaccine, adult dosage Abhi Ramires 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: [facility] 07-08-2002 hepatitis B vaccine, adult dosage Abhi Ramires 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: [facility] 07-08-2002 TD(adult) unspecifie d formulation; Translations: [Td(adult) unspecified formulation] Abih Ramires 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: [facility] NEGATED: Highlighted row has not occurred!11-08-2021 influenza virus vaccine, unspecified formulation Capri FULLER [facility] Payers Date Payer Category Payer Self-pay [id number] 2021 Private Health Insurance [id number] 2021 Private Health Insurance CLI [id number] 2013 Medicare [id number] 1959 Medicare [id number] 1959 Unknown [id number] 1948 Unknown [id number] 2.16.84 0.1.692786.3.579.2.593 1948 Unknown [id number] 2.16.84 0.1.363824.3.579.2.593 1948 Unknown [id number] 2.16.84 0.1.462221.3.579.2.593 1948 Unknown [id number] 2.16.84 0.1.424265.3.579.2.593 1948 Unknown [id number] 2.16.84 0.1.239692.3.579.2.593 1948 Unknown [id number] 2.16.84 0.1.604839.3.579.2.593 1948 Unknown [id number] 2.16.84 0.1.508482.3.579.2.593 1948 Unknown [id number] 2.16.84 0.1.774648.3.579.2.593 1948 Unknown [id number] 2.16.84 0.1.022590.3.579.2.593 1948 Unknown [id number] 2.16.84 0.1.810230.3.579.2.593 1948 Unknown [id number] 2.16.84 0.1.767879.3.579.2.593 1948 Unknown [id number] 2.16.84 0.1.961190.3.579.2.593 1948 Unknown [id number] 2.16.84 0.1.460456.3.579.2.593 1948 Unknown [id number] 2.16.84 0.1.012111.3.579.2.593 1948 Unknown [id number] 2.16.84 0.1.966841.3.579.2.593 1948 Unknown [id number] 2.16.84 0.1.135113.3.579.2.593 1948 Unknown [id number] 2.16.84 0.1.407420.3.579.2.593 1948 Unknown [id number] 2.16.8 40.1.486933.3.579.2.727 1948 Unknown [id number] 2.16.8 40.1.071915.3.579.2.727 1948 Unknown [id number] 2.16.8 40.1.621046.3.579.2.727 1948 Unknown [id number] 2.16.8 40.1.540945.3.579.2.727 1948 Unknown [id number] 2.16.8 40.1.187577.3.579.2.1259 1948 Unknown [id number] 2.16.8 40.1.926967.3.579.2.1259 1948 Unknown [id number] 2.16.84 0.1.947386.3.579.2.1259 1948 Unknown [id number] 2.16.84 0.1.055516.3.579.2.1259 1948 Unknown [id number] 2.16.84 0.1.208213.3.579.2.1259 1948 Unknown [id number] 2.16.84 0.1.931600.3.579.2.9 1948 Unknown [id number] 2.16.84 0.1.894528.3.579.2.1258 1948 Unknown [id number] 2.16.84 0.1.563951.3.579.2.9 1948 Unknown [id number] 2.16.84 0.1.137982.3.579.2.1258 1948 Unknown [id number] 2.16.84 0.1.830577.3.579.2.1258 1948 Unknown [id number] 2.16.84 0.1.889710.3.579.2.1258 1948 Unknown [id number] 2.16.84 0.1.023819.3.579.2.1258 1948 Unknown [id number] 2.16.84 0.1.441459.3.579.2.9 1948 Unknown [id number] 2.16.84 0.1.780232.3.579.2.1258 1948 Unknown [id number] 2.16.84 0.1.080371.3.579.2.125 1948 Unknown [id number] 2.16.84 0.1.092092.3.579.2.1258 1948 Unknown [id number] 2.16. 840.1.871027.3.579.2.196 1948 Unknown [id number] 2.16. 840.1.922057.3.579.2.196 Medicare [id number] Unknown [id number] 2.16.8 40.1.683199.3.579.2.531 Unknown [id number] 2.16.8 40.1.419777.3.579.2.531 Unknown [id number] 2.16.8 40.1.454789.3.579.2.531 Social History Date Type Detail Facility Tobacco smoking stat [facility] Unknown if ever smoked [facility] Work Phone: Start: 1950 Sex Assigned At Female [facility] Start: 05-10-2021 End: 03-20-2024 Tobacco smoking status Heavy tobacco smoker (finding) [facility] Start: 09-10-2023 End: 07-22-2024 Sex Assigned At Female [facility] Start: 05-26-2021 [facility] Start: 08-26-2023 End: 09-30-2024 Tobacco smoking status PAIS Smokes tobacco daily [facility] History of [...] [facility] Tobacco smoking status Never [facility] Start: 03-12-2023 Tobacco smoking stat [facility] Ex-smoker (finding) [facility] Start: 04-21-2024 Sex Female (finding) [facility] Start: 06-23-2024 Alcohol Comment Occationally [facility] Functional Status Date Assessment Result Facility 03-20-2024 Functional Status N/A [facility] 01-30-2024 Functional Status N/A [facility] 01-15-2024 Functional Status N/A [facility] 12-04-2023 Functional Status N/A [facility] 11-08-2021 Functional Status N/A [facility] Clinical Notes 01-24-2021 to 09-30-2024 Note Date & Type Note Facility 09-30-2024 Evaluation note Diagnosis Onset Date Resolution Right foot pain acute September 302024 9:36am Anxiety acute October 19, 2024 8:50am Hyperlipidemia, unspecified acute October 19, 025 8:50am Hypothyroid acute October 8:50am Medicare annual wellness visit, subsequent acute October 19, 2024 8:50am Right foot pain acute October 19, 2024 8:50am Ulcerative (chronic) pancolitis without complications acute October 19 025 8:50am Lumbar radiculopathy acute Oct 8:45am [facility] Work Phone: 1(128) 158-398307-10-2025 History of Present illness Narrative* DOMINGA Monroy - 08/20/2024 9:30 AM EDT Images from the original note [...] significant pain or discomfort. She is very pleasedwith the outcome of her surgery. She will [...] year, seeing Dr. Marino and podiatry in [place] before being diagnosed with a pinched nerve [...] requiring urgent evaluation. Visit was preformed using [employer]-fixed wing pilot speech recognition. [id number] History of Present illness Narrative* DOMINGA Monroy - 07/22/2024 11:15 AM EDT Images from the original note [...] ballotable and compartments were soft to the operativelower extremity. Dorsalis pedis and posterior tibial pulses were present and equal bilaterally. There was no evidence of infection or ascending lymphangitis to operative lower extremity. Sensation tolight touch was intact to all dermatomes to [...] requiring urgent evaluation. Visit was preformed using [employer]-fixed wing pilot speech recognition. documented in this [facility]06-11-2025 Instructions* Patient Instructions* DOMINGA Monroy - 07/22/2024 11:15 AM EDT [...] more than 10 mins documented in this [facility]05-23-2025 Telephone encounter Note* Telephone Encounter - Abhi Ramires NP - 07/03/2024 7:17 AM EDT Post op pain rx. PDMP reviewed [id number] Miscellaneous Notes* Telephone Encounter - Abhi Ramires NP - 07/03/2024 7:17 AM EDT Post op pain rx. PDMP reviewed documented in this encounterI-70 Community [id number] History of Present illness Narrative* DOMINGA Monroy - 06/23/2024 1:30 PM EDT Images from the original note were [...] COLONOSCOPY 01/15/24 KNEE ARTHROSCOPY W/ DEBRIDEMENT Left [place] OTHER SURGICAL HISTORY Right TAMICA CORONA PUT [...] Z01.818 Basic metabolic panel Basic metabolic panel Misc. Devices misc Ambulatory referral to Physical Therapy Discussed patient's need for a front wheel walker: The patient has mobility limitations that significantly impair their ability to participate in activities of daily living without the risk of fall. The patient would benefit from this walker to reasonably complete activities of daily living such asprepping and cooking meals, grocery shopping , getting [...] and proposed surgery scheduled. WALKER SENT TO [facility] WORK SENT TO [facility] PRE AUTH MEDICARE APPROVED Follow up in about 4 weeks (around 07/21/2024) for Post-Op July 22 @ 11:15 in the [place] locationwith Dolly Veras. documented in this encounterI-70 Community [id number] History of Present illness Narrative* Jr. Larissa Guerrero, DO - 05/13/2024 9:00 AM EDT Images from the original note were not included. Jennifer appreciatedHISTORY OF PRESENT ILLNESS: EST PT Alexandra Cervantes is an 74 y.o. @ female. (EST PT) - RECHECK (R) KNEE ; S/P MDP 04/15/24 ; S/P MRI @[facility] 04/24/24 : ADMITS B/L KNEE PAIN - R>L XRAY B/L KNEE 08/26/23 IN EPIC MRI @[facility] 04/24/24 MDP 04/15/24 NO CORTISONE INJ NO PT PAIN MGMT @[facility] (BACK) (R) KNEE: S/P MDP - WITH [...] of medial meniscus noted on MRI from [facility]. Questions answered in laymen terms at the bedside. The diagnosis, home exercise plan and any ongoing restrictions/ recommendations reviewed. If unable to be reached in office, I recommend evaluation at nearest Emergency Room if any symptoms worsened or new symptoms develop for requiring urgent evaluation. documented in this encounterI-70 Community HospitalCjhydphhxl45-63-2576 History of Present illness Narrative* Jr. Larissa Guerrero DO - 03/18/2024 10:45 AM EST Images from the original note were not included. HISTORY OF PRESENT ILLNESS: EST PT Alexandra Cervantes is an 74 y.o. @ female. (EST PT) (LAST APPT WITH [facility]) - RECHECK (L) KNEE S/P MRI @[facility] (02/25/24) ; S/P (L) KNEE SCOPE (DR. CURRAN) (10/09/23) (5 MONTHS, 1 WK, 1 DAY) XRAY B/L KNEE 08/26/23 IN EPIC XRAY (L) KNEE (02/09/23) IN CHANGE MRI @[facility] 02/25/24 MDP 12/31/23 (50% IMPROVEMENT) CORTISONE INJ (01/20/24) (70-80% IMPROVEMENT) NO PT PAIN MANAGEMENT @ [facility] (BACK) STATES INJECTION 01/20/24 ONLY LASTED 2-3 [...] MRI results. We'll see her back in 8weeks. If her symptoms persist or worsen, we [...] for requiring urgent evaluation. documented in this [facility]01-20-2025 Miscellaneous Notes* Telephone Encounter - Tyra Feliz - 03/02/2024 10:12 AM EST Patient called and left requesting a call for here MRI results. documented in this [facility]01-20-2025 Telephone encounter Note* Telephone Encounter - Tyra Feliz - 03/02/2024 10:12 AM EST Patient called and left vm requesting a call for here MRI results. [facility] [id number] History of Present illness Narrative* Adali Giordano NP - 02/17/2024 9:45 AM EST HISTORY OF PRESENT ILLNESS: Alexandra Cervantes is [...] f/u s/p MRI to be done at [facility] documented in this encounterI-70 Community [id number] Evaluation + Plan note Future Scheduled Tests Laboratory* Calprotectin, Fecal 01/30/24 * Calprotectin, Fecal 03/17/24 * Clostridium Difficile PCR 03/17/24 * Quantiferon-TB Plus (Client Incubated) 03/17/24 * Enteric Panel by PCR 03/17/24 * CBC w/ Auto Diff 03/20/24 * CBC w/ Auto Diff 03/17/24 * Comprehensive Metabolic Panel 03/20/24 * Comprehensive Metabolic Panel 03/17/24 * C-Reactive Protein 03/20/24 * C-Reactive Protein 03/17/24 * Hepatitis B Surface Antibody 03/17/24 * Hepatitis B Surface Antigen 03/17/24 [facility] [id number] History of Present illness Narrative* Adali Giordano NP - 01/20/2024 10:15 AM EST HISTORY OF PRESENT ILLNESS: Alexandra Cervantes is [...] an injection, side effects of bleeding and infectiondiscussed, would like to proceed with the injection, using aspectic technique 40 mg of depo medrol was injected into the left lateral knee, pt tolerated well, bandaid applied, may do activities as tolerated, f/u in 3-4 weeks. We discussed if not much improvement would recommend an MRI and she understands this. documented in this encounterI-70 Community [id number] Hospital Discharge instructions Patient Education 01/15/2024 13:05:31 Gastritis, Adult, Nbvj-vu-Kkwi Gastritis, Adult Gastritis is irritation and swelling (inflammation) of the stomach. There are two kinds of gastritis: Acute gastritis. This kind develops quickly. Chronic gastritis. This kind is much more common. It develops slowly and lasts for a long time. It is important to get help for this condition. If you do not get help, your stomach can bleed, andyou can get sores (ulcers) in your stomach. [...] Follow these instructions at home: Medicines Take ticq-fgf-rkksrzm and prescription medicines only as told by [...] away. Call your local emergency services (911 inthe [place] Do not wait to see if [...] provider. Document Revised: 06/03/2021 Document Reviewed: 06/03/2021 [employer] Patient Education 2023 [employer] 01/15/2024 13:05:27 Endoscopy, Care After Procedure [facility] ([facility]) Endoscopy Care After Procedure Please read the instructions outlined below and refer to this sheet in the next few weeks. These discharge instructions provide you with general information on caring for yourself after you leave thespital. Your doctor may also give you specific [...] blood. Document Released: 09/11/2004 Document Re-Released: 07/22/2006 [facility] [place] Patient Information [employer]. 01/15/2024 13:05:22 Hemorrhoids, Icwz-am-Mgvg Hemorrhoids Hemorrhoids are swollen veins that may [...] Follow these instructions at home: Medicines Take rgiy-yvy-bqrnfst and prescription medicines only as told by [...] 3 4 times a day. You may dothis in a bathtub. You may also use [...] provider. Document Revised: 10/10/2022 Document Reviewed: 10/10/2022 [employer] Patient Education 2023 [employer] 01/15/2024 13:05:13 Ulcerative Colitis, Adult Ulcerative Colitis, [...] instructions at home: Medicines and vitamins Take vjvw-pmu-koopnvo and prescription medicines only as told by your health care provider. Do not take aspirin. If you were prescribed an antibiotic medicine, take it as told by your health care provider. Do notstop taking the antibiotic even if you start [...] you need help quitting, ask your health careprovider. If you drink alcohol: ?Limit how much [...] and water are not available, use hand deburrer machine. Stay up to date on your vaccinations, [...] information about ulcerative colitis at the [employer] of Diabetes and Digestive and Kidney Diseases [...] provider. Document Revised: 10/04/2020 Document Reviewed: 10/04/2020 [employer] Patient Education 2023 [employer]. 01/15/2024 13:05:09 Colonoscopy, Care After Surgery [facility] (CUSTOM) Colonoscopy Care After Surgery Please read the instructions outlined below and refer to this sheet in the next few weeks. These discharge instructions provide you with general information on caring for yourself after you leave thespital. Your doctor may also give you specific [...] Heavy or fried foods are harder to digestand may make you feel nauseated (sick to [...] severe or gets worse throughout the day. [facility] 12-04-2024 Evaluation + Plan noteExtracted from: Title:ANES Post-operative Note---General Author: Danielle Garcia MD. Date:01/15/24 Plan Transfer/Discharge: Transfer/Discharge Discharge when meets criteria ( To home ). Extracted from: Title:ANES Pre-operative Note 2022 Author:Danielle Ha Date:01/15/24 Plan [place] [employer] Anesthesiologists (ASA) physical status classification: Class II. Anesthetic Preoperative Plan: Anesthesia General. Extracted from: Title:1Preop H&P Author:Martin Tatum MD Date:01/15/24 Impression and Plan Impression: Ulcerative colitis, chronic diarrhea Plan: -EGD and Colonoscopy Future Appointments Appointment Date:01/30/2024 01:45:00 PM Scheduled Provider:Martin Tatum MD Location:[facility] Appointment Type:[facility] Follow Up Diagnostic Tests Pending * Enteric Panel by PCR 01/15/24 * Clostridium Difficile PCR 01/15/24 * Hep B Core Ab, Tot 01/15/24 * Hepatitis B Surface Antibody 01/15/24 * Hepatitis B Surface Antigen 01/15/24 * Quantiferon-TB Plus (Client Incubated) 01/15/24 [facility] 11-19-2024 History of Present illness Narrative* Abhi [...] develop for requiring urgent evaluation. Abhi Ramires APRN-COPPER PLATER documented in this encounterI-70 Community [id number] History of Present illness Narrative* Adali Giordano [...] do activities as tolerated. documented in this encounterI-70 Community [id number] History of Present illness Narrative* Adali Giordano [...] as tolerated, f/U prn documented in this encounterI-70 Community [id number] History of Present illness Narrative* Larissa Mei Guerrero, DO - 04/15/2024 2:15 PM EST Images [...] for requiring urgent evaluation. documented in this encounterI-70 Community HospitalOnycnjsoox59-80-3740 Telephone encounter Note* Telephone Encounter - Abhi Ramires NP - 10/08/2023 3:02 PM EDT Post op pain rx. PDMP reviewed [facility] HospitalRwscydgvdo28-72-1025 Miscellaneous Notes* Telephone Encounter - Abhi Ramires NP - 10/08/2023 3:02 PM EDT Post op pain rx. PDMP reviewed documented in this encounterI-70 Community HospitalNzstcprfdk65-85-3273 Evaluation note* Encounter Date Diagnosis Assessment Notes [...] continue to monitor through routine blood work [employer] Other 08-10-2023 Evaluation note* Encounter Date Diagnosis Assessment Notes Treatment Notes Treatment Clinical Notes Sep, Right foot pain (ICD-10 - M79.671) [facility] [employer] Other 07-25-2023 Evaluation note* Encounter Date Diagnosis [...] - E03.9) Chronic problem due for labs. [employer] Other 01-19-2023 Evaluation note* Encounter Date Diagnosis [...] - E78.5) Due for labs in summer. [employer] Other 12-08-2022 NoteCONSULTATION PROCEDURE DATE: 01/18/2022 PREOPERATIVE [...] followed up in the office.[id number] NoteCONSULTATION CONSULTATION DATE: 01/18/2022 HISTORY OF PRESENT [...] months' time, unless otherwise indicated.[facility] [id number] Evaluation + Plan note Diagnostic Tests Pending * CBC w/ Auto Diff 11/08/21 * Comprehensive Metabolic Panel 11/08/21 [facility] 09-08-2022 NoteCONSULTATION PROCEDURE DATE: 11/16/2021 [...] followed up in the office.[facility] 10-19-2021 NoteCONSULTATION CONSULTATION DATE: 10/19/2021 This is [...] months' time unless otherwise indicated.[facility] [id number] NoteCONSULTATION CONSULTATION DATE: 09/06/2021 HISTORY OF PRESENT [...] and increased pain. She rates her pain /. She has been following up with [facility] and had a benign [...] patient agrees to move forward.[facility] [id number] NoteCONSULTATION PAIN MANAGEMENT CONSULTATION HISTORY: This is [...] and Approved by: ROBERTO MCNALLY . 04/27/2021 12:41:00[facility]12-14-2021 Hospital Discharge instructions Follow Up Care 01/24/2021 10:04:31 With:JANINA ALARCON, LENORE Farooq, [facility] Address: [address] [place] [address]- When:6 months [facility] Evaluation + Plan note Future Appointments Appointment Date:11/08/2021 10:15:00 AM Scheduled Provider:Capri FULLER MD Location:[facility] Appointment Type:[facility] Follow Up Future Scheduled Tests Laboratory* CBC w/ Indices 07/25/20 * Comprehensive Metabolic Panel 07/25/20 [facility] Evaluation + Plan note Future Appointments Appointment Date:01/15/2024 12:00:00 PM Scheduled Provider: Location:[facility] Appointment Type:Surgery FT Appointment Date:01/30/2024 01:45:00 PM Scheduled Provider:Martin Tatum MD Location:[facility] Appointment Type:[facility] Follow Up Future Scheduled Tests Laboratory* O & P Exam, Routine 12/04/23 * Clostridium Difficile PCR 12/04/23 * Enteric Panel by PCR 12/04/23 [facility] Evaluation + Plan note Future Appointments Appointment Date:01/15/2024 12:00:00 PM Scheduled Provider: Location:[facility] Appointment Type:Surgery FT Appointment Date:01/30/2024 01:45:00 PM Scheduled Provider:Martin Tatum MD Location:[facility] Appointment Type:[facility] Follow Up Diagnostic Tests Pending * Celiac Disease Comprehensive 12/04/23 Future Scheduled Tests Laboratory* O & P Exam, Routine 12/04/23 * Clostridium Difficile PCR 12/04/23 * Enteric Panel by PCR 12/04/23 [facility] evaluation + Plan note Future Appointments Appointment Date:01/15/2024 12:00:00 PM Scheduled Provider: Location:[facility] Appointment Type:Surgery FT Appointment Date:01/30/2024 01:45:00 PM Scheduled Provider:Martin Tatum MD Location:[facility] Appointment Type:[facility] Follow Up Diagnostic Tests Pending * O & P Exam, Routine 12/06/23 [facility] evaluation + Plan note Future Appointments Appointment Date:04/29/2024 09:15:00 AM Scheduled Provider:Martin Tatum MD Location:[facility] Appointment Type:[facility] Follow Up Future Scheduled Tests Laboratory* Calprotectin, Fecal 01/30/24 [facility] Evaluvmkyh noteNo assessment information available [facility] Work Phone: Evalukahvp note* Diagnosis Arthritis of left knee- Primary [...] of left knee documented in this encounter [facility] HealthcareEvaluation note* Diagnosis Acute pain of left knee- Primary Acute pain of right knee Acute medial meniscus tear of right knee, initial encounter documented in this encounter [facility] HealthcareEvaluation note* Diagnosis Onset Date Resolution Status Admit Date Anxiety acute April 21 8:49am Ulcerative (chronic) pancoli tis without complications acute April 8:49am [facility] Work Phone: Evaluation note* Diagnosis Acute pain of right knee- Primary Acute medial meniscus tear of right knee, initial encounter documented in this encounter [facility] HealthcareEvaluation note* Diagnosis Pre-op examination- Primary documented in this encounter [facility] HealthcareEvaluation note* Diagnosis Pre-op examination- Primary Localized osteoarthritis of right knee documented in this encounter [facility] HealthcareEvaluation note* Diagnosis Acute medial meniscus tear of right knee, initial encounter- Primary documented in this encounter [facility] HealthcareEvaluation note* Diagnosis S/P right knee arthroscopy- Primary documented in this encounter [facility] HealthcareEvaluation note* Diagnosis S/P right knee arthroscopy- Primary documented in this encounter [facility] HealthcareEvaluation note* Diagnosis Onset Date Resolution Status Admit Date Right foot pain acute September 302024 9:36am [facility] Work Phone: History general Narrative - Reported* Type Description Date Medical History GERD Medical History Hypothyroid Medical History Depression Surgical History Appendectomy Surgical History Tubal Ligation Surgical History Right carpal tunnel Surgical History Right finger Surgical History 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 Hospitalization History See past surgical hx [employer] Other Hospital course Narrative No data available for this section [facility] Discharge instructions No data available for this section [facility] Discharge instructionsAmbulatory Orders* Referral to Neurology Time Frame: 09/30/24, Location: None Selected [facility] Work Phone: Progress note No data available for this section [facility] Reason for referral (narrative)No reason for referral information [facility]Firelands [facility] Work Phone: Reason for visit Narrative* Consultation (Routine) - Authorized Specialty Diagnoses / Procedures Referred By Rosi t Referred To Contact Physical Therapy Diagnoses Pre-op examination Procedures NE OFFICE/OUTPATIENT NEW HIGH MDM 60 MINUTES Dolly Veras PA [address] [place] [address] Phone: tel: fax: Sofia Bull PT Referral ID Status Reason Start Date Expiration Date Visits Requested Visits Authorized [id number] Authorized Consult and Treat 06/23/2024 12/20/2024 10 10 [facility] Chief Complaint and Reason for Visit [...] foot pain September 30, 2024 9: 36am Chief Complaint Admit Date SCIATICA -RIGHT SIDE September 30, 2024 9 :36am Wellness October 19, 2024 8:50am EMG BLE per Dr. Nasim Segal October 28, 2024 8:45am Reason for Visit Admit Date Right foot pain September 30, 2024 9: 36am Anxiety October 19, 2024 8:50am Hyperlipidemia, unspecified October 8:50am Hypothyroid October 19, 2024 8:50am Medicare annual wellness visit, subseque nt October 19, 2024 8:50am Right foot pain October 19, 2024 8:50am Ulcerative (chronic) pancolitis without complications October 19, 2024 8:50am Lumbar radiculopathy October 28 8:45am Chief Complaint Admit Date SCIATICA -RIGHT SIDE September 30, 2024 9 :36am Wellness October 19, 2024 8:50am EMG BLE per Dr. Nasim Segal October 28, 2024 8:45am emg results November 04, 2024 10:58am Advance Directives Advance Directive Response Recorded Date/ [...] Right foot pain (M79 .671) Referral Organization [facility] Medical linyannick Referring Provider First Name Laurita Referring Provider Last Name Carmen Referring Provider Specialty Family [facility] Referred Organization [facility] Referred Provider Seymour Johnson Referred Address [address], [place],[address] Referred Provider Specialty Podiatry - S urgical Chiropody Referral Priority Routine General Notes Torey Traci 03:01:16 PM >received today, attachments made, notes [...] Active Luis Gutierrez DO Attending Provider Active [employer] Supervisor Relationship Specialty Start Date End Date Laurita Morales MD [address] [place] [id number] PCP - General Family Medicine 08/26/23 [employer] Supervisor Relationship Specialty Start Date End Date Laurita Morales MD [address] [place] [address] PCP - General Family Medicine 08/26/23 [employer] Supervisor Relationship Specialty Start Date End Date Laurita Morales MD [address] [place] [address] PCP - General Family Medicine 08/26/23 [employer] Supervisor Relationship Specialty Start Date End Date Laurita Morales MD [address] [facility] [place] [address] PCP - General Family Medicine 08/26/23 [employer] Supervisor Relationship Specialty Start Date End Date Laurita Morales MD [address] [facility] [address] PCP - General Family Medicine 08/26/23 [employer] Supervisor Relationship Specialty Start Date End Date Laurita Morales MD [address] [facility] [place] [address] PCP - General Family Medicine 08/26/23 [employer] Supervisor Relationship Specialty Start Date End Date Laurita Morales MD [address] [facility] [place] [address] PCP - General Family Medicine 08/26/23 [employer] Supervisor Relationship Specialty Start Date End Date Laurita Morales MD [address] [facility] [place] [address] PCP - General Family Medicine 08/26/23 [employer] Supervisor Relationship Specialty Start Date End Date Laurita Morales MD [address] [facility] [place] [address] PCP - General Family Medicine 08/26/23 [employer] Supervisor Relationship Specialty Start Date End Date Laurita Morales MD [address] [facility] [place] [address] PCP - General Family Medicine 08/26/23 [employer] Supervisor Relationship Specialty Start Date End Date Laurita Morales MD [address] [facility] [place] [address] PCP - General Family Medicine 08/26/23 [employer] Supervisor Relationship Specialty Start Date End Date Laurita Morales MD [address] [facility] [place] [address] PCP - General Family Medicine 08/26/23 Team Status: Inactive Member Role Status Dates Laurita Morales MD Primary Care Provide r, Attending Provider Active Start: April 21, 2024 End: April 21, 2024 [employer] Supervisor Relationship Specialty Start Date End Date Laurita Morales MD [address] [facility] [place] [address] PCP - General Family Medicine 08/26/23 [employer] Supervisor Relationship Specialty Start Date End Date Laurita Morales MD [address] [facility] [place] [address] PCP - General Family Medicine 08/26/23 [employer] Supervisor Relationship Specialty Start Date End Date Laurita Morales MD PCP - General Family Medicine 08/26/23 [employer] Supervisor Relationship Specialty Start Date End Date Laurita Morales MD PCP - General Family Medicine 08/26/23 [employer] Supervisor Relationship Specialty Start Date End Date Laurita Morales MD PCP - General Family Medicine 08/26/23 [employer] Supervisor Relationship Specialty Start Date End Date Laurita Morales MD PCP - General Family Medicine 08/26/23 [employer] Supervisor Relationship Specialty Start Date End Date Laurita Morales MD PCP - General Family Medicine 08/26/23 [employer] Supervisor Relationship Specialty Start Date End Date Laurita Morales MD PCP - General Family Medicine 08/26/23 [employer] Supervisor Relationship Specialty Start Date End Date Laurita Morales MD [address] [facility] [place] [address] PCP - General Family Medicine 07/16/24 [employer] Supervisor Relationship Specialty Start Date End Date Laurita Morales MD [address] [facility] [place] [address] PCP - General Family Medicine 07/16/24 [employer] Supervisor Relationship Specialty Start Date End Date Laurita Morales MD [address] [facility] [place] [address] PCP - General Family Medicine 07/16/24 Team Status: Inactive Member Role Status Dates Laurita Morales MD Primary Care Provider Active Start: September 30, 2024 End: September 30, 2024 Nasim Segal DO Attending Provider Active S tart: September 30, 2024 End: September 30, 2024 Team Status: Inactive Member Role Status Dates Laurita Morales MD Primary Care Provider Active Start: October 19, 2024 End: October 19, 2024 Laurita Morales MD Attending Provider Active St art: October 19, 2024 End: October 19, 2024 Team Status: Active Member Role Status Dates Laurita Morales MD Primary Care Provider Active Start: October 20, 2024 Laurita Morales MD Attending Provider Active St art: October 20, 2024 Team Status: Inactive Member Role Status Dates Laurita Morales MD Primary Care Provider Active Start: October 28, 2024 End: October 28, 2024 Sin Bernard DO Attending Provider Active Start: October 28, 2024 End: October 28, 2024 Team Status: Inactive Member Role Status Dates Laurita Morales MD Primary Care Provider Active Start: November 04, 2024 End: November 04, 2024 Nasim Segal DO Attending Provider Active S tart: November 04, 2024 End: November 04, 2024 Goals (unrecognized section and content) Goals [...] section and content) DATE CREATED AUTHOR 05/23/2021 [facility] DATE CREATED AUTHOR AUTHOR'S ORGANIZ ATION 01/23/2022 [facility] DATE CREATED AUTHOR AUTHOR'S ORGANIZ ATION 03/17/2022 [facility] DATE CREATED AUTHOR AUTHOR'S ORGANIZ ATION 12/03/2023 [facility] DATE CREATED AUTHOR AUTHOR'S ORGANIZ ATION 12/08/2023 [facility] DATE CREATED AUTHOR AUTHOR'S ORGANIZ ATION 12/10/2023 [facility] DATE CREATED AUTHOR AUTHOR'S ORGANIZ ATION 12/12/2023 [facility] DATE CREATED AUTHOR AUTHOR'S ORGANIZ ATION 01/23/2024 [facility] DATE CREATED AUTHOR AUTHOR'S ORGANIZ ATION 01/25/2024 [facility] DATE CREATED AUTHOR AUTHOR'S ORGANIZ ATION 02/03/2024 [facility] DATE CREATED AUTHOR AUTHOR'S ORGANIZ ATION 08/13/2024 [facility] DATE CREATED AUTHOR AUTHOR'S ORGANIZ ATION 08/24/2024 [facility] Special[facility] DATE CREATED AUTHOR AUTHOR'S ORGANIZ ATION 08/28/2024 [facility] REASON FOR VISIT (unrecogniz ed section and [...] BE BASED ON THE PRIMARY CLINICAL RECORDS. [facility] [employer] provides no warranty or guarantee of the accuracy or completeness of information in this document.
--- NOTE | 2024-11-13 08:24 | CT_ITS ---
[facility] [place] [id number] Patient Name: ALEXANDRA GARDNER MRN: [id number] date: 1950 Sex: F Assigned Patient Location: CT Current Patient Location: CT Accession/Order Number: [id number] Exam Date: 11/13/2024 08:28 Report Date: 11/13/2024 14:09 At the request of: NON-STAFF PHYSICIAN MD Procedure: CT lumbar spine wo con CT lumbar spine wo con 11/13/2024 8:32 AM History:Lumbar radiculopathy. TECHNIQUE: Multi detector CT axial slices of the lumbar spine were obtained without IV contrast. Volumetric acquisition sagittal, coronal, and 3-D reconstructions were performed and reviewed on a separate workstation. CT was performed with one or more of the following dose reduction techniques: Automated exposure control, adjustment of the mA and/or kV according to patient size, or use of iterative reconstruction technique. COMPARISON: Lumbar spine 10/19/2024 FINDINGS: No fracture. Vertebral body heights appear maintained. Multilevel degenerative disease worst at L1-L2 and L5-S1. Diffuse endplate and facet joint degenerative changes with approximately 4 mm of retrolisthesis of L1 on L2 as well as 3 mm of anterolisthesis of L4 on L5 and 6 mm of anterolisthesis of L5 on S1. Transverse processes appear intact. SI joints demonstrate degenerative change. No paraspinal mass. Visualized retroperitoneum demonstrates right nephrolithiasis. CT/CT lumbar spine wo con IMPRESSION: Multilevel degenerative disc disease, worst at L1-L2 and L5-S1. Right nephrolithiasis. Impression dictated by: Pa Osullivan Jr., D.O. 11/13/2024 2:09 PM Dictation Location: [place] [id number] Electronically authenticated by: [id number] Y Date: 11/13/2024 14:09
== END 2024-11-13 08:20 | disposition home or self-care (01) ==
LOC: CT 08:20
PROVIDERS: PCP Family Medicine
DX: M54.16 Radiculopathy, lumbar region (principal); M81.0 Age-related osteoporosis without current pathological fracture; M51.369 Other intervertebral disc degeneration, lumbar region without mention of lumbar back pain or lower extremity pain; N20.0 Calculus of kidney
CPT/HCPCS: 72131; 76376; 77080

== ENCOUNTER 2024-12-23 06:38 | Observation (INO) | payer MEDICARE, SELFPAY ==
--- OUTSIDE RECORDS SUMMARY | 2024-12-10 08:29 | XMS_ITS | Continuity of Care Document ---
Author Organization [facility] Address [address] [place] [address] Phone Care Team Providers Care Yard Attendant Name Role Phone Danyell Kelly MD Primary Care Provider Nasim Segal DO Attending Provider Danyell Kelly MD Attending Provider [phone] Sin Bernard DO Attending Provider Nasim Segal DO Admit Provider Nasim Segal DO Other Provider Amy Victoria CMA Attending Provider Cory Kenny MD Attending Provider [phone] Care Teams Patient Care Team Team Status: Active Member Role/Relationship Status Dates Danyell Kelly MD Primary Care Provider Active Visit Care Team Team Status: Inactive Member Role/Relationship Status Dates Danyell Kelly MD Primary Care Provider Active Start: September 30, 2024 End: September 30, 2024Eric Alba Mazariegos ProviderActiveStart: September 30, 2024 End: September 30, 2024 Visit Care Team Team Status: Inactive Member Role/Relationship Status Dates Danyell Kelly MD Primary Care Provider Active Start: October 19, 2024 End: October 19, 2024Amelia Goel ProviderActiveStart: October 19, 2024 End: October 19, 2024 Visit Care Team Team Status: Active Member Role/Relationship Status Dates Danyell Kelly MD Primary Care Provider Active Start: October 20, 2024 Amelia Goel ProviderActiveStart: October 20, 2024 Visit Care Team Team Status: Inactive Member Role/Relationship Status Dates Danyell Kelly MD Primary Care Provider Active Start: October 28, 2024 End: October 28melissa Bernard DOAttending ProviderActive Start: October 28, 2024 End: October 28, 2024 Visit Care Team Team Status: Inactive Member Role/Relationship Status Dates Danyell Kelly MD Primary Care Provider Active Start: November 04, 2024 End: November 04, 2024Eric N Bialaski , DOAttending ProviderActiveStart: November 04, 2024 End: November 04, 2024 Visit Care Team Team Status: Inactive Member Role/Relationship Status Dates Danyell Kelly MD Primary Care Provider Active Start: November 12, 2024 End: November 12, 2024Eric N Bialaski , DOAttending ProviderActiveStart: November 12, 2024 End: November 12, 2024 Visit Care Team Team Status: Inactive Member Role/Relationship Status Dates Danyell Kelly MD Primary Care Provider Active Start: November 19, 2024 End: November 19, 2024Danyell Kelly MDAttending ProviderActiveStart: November 19, 2024 End: November 19, 2024 Visit Care Team Team Status: Inactive Member Role/Relationship Status Dates Danyell Kelly MD Primary Care Provider Active Start: November 20, 2024 End: November 20, 2024Eric N Bial[place]i , DOAttending ProviderActiveStart: November 20, 2024 End: November 20, 2024 Visit Care Team Team Status: Active Member Role/Relationship Status Dates Danyell Kelly MD Primary Care Provider Active Start: November 26, 2024 Nasim N Bial[place]i , DOAdmit ProviderActiveStart: November 26, 2024 Nasim N Bial[place]i , DOAttending ProviderActiveStart: November 26, 2024 Nasim N Bial[place]i , DOOther ProviderActiveStart: November 26, 2024 Patient Care Team Team Status: Active Member Role/Relationship Status Dates Danyell Kelly MD Primary Care Provider Active Start: November 30, 2024 Amy Victoria CMAAttending ProviderActiveStart: November 30, 2024 Patient Care Team Team Status: Active Member Role/Relationship Status Dates Danyell Kelly MD Primary Care Provider Active Start: December 03, 2024 Nasim Segal , DOAdmit ProviderActiveStart: December 03, 2024 Nasim Segal , DOOther ProviderActiveStart: December 03, 2024 Amelia Soria ProviderActiveStart: December 03, 2024 Patient Care Team Team Status: Inactive Member Role/Relationship Status Dates Danyell Kelly MD Primary Care Provider Active Start: December 10, 2024 End: December 10, 2024Nasim Segal DOAttending ProviderActiveStart: December 10, 2024 End: December 10, 2024 Chief Complaint and Reason for Visit Chief Complaint Admit Date SCIATICA -RIGHT SIDE September 30, 2024 9 :36am Wellness October 19, 2024 8:50am EMG BLE per Dr. Nasim Segal October 28, 2024 8:45am emg results November 04, 2024 10:58am Lumbar Radiculopathy November 12, 2024 9 :33am Surgical Clearance November 19, 2024 9: 37am discuss surgery November 20, 2024 9 :29am Lumbar Radiculopathy November 26, 2024 5:45am Amb Documentation November 30, 2024 2 :10pm Lumbar Radiculopathy December 03, 2024 12:00am 2 wk po December 10, 2024 1 2:58pm Reason for Visit Admit Date Right foot pain September 30, 2024 9: 36am Anxiety October 19, 2024 8:50am Hyperlipidemia, unspecified October 8:50am Hypothyroid October 19, 2024 8:50am Medicare annual wellness visit, subseque nt October 19, 2024 8:50am Right foot pain October 19, 2024 8:50am Ulcerative (chronic) pancolitis without complications October 19, 2024 8:50am Lumbar radiculopathy October 28 8:45am Lumbar radiculopathy November 04 10:58am Anxiety November 19, 2024 9: 37am Hyperlipidemia, unspecified November 19, 2024 9:37am Hypothyroid November 19, 2024 9: 37am Lumbar radiculopathy November 19, 2024 9 :37am Preoperative examination November 19 9:37am Lumbar radiculopathy November 20, 2024 9:29am Lumbar radiculopathy November 26, 2024 5:45am Lumbar radiculopathy December 10, 2024 12:58pm Reason for Referral Type Reason(s) Provider Provider Contact Information Will esuqeda Address Start Date Please call the office on Saturday to schedule a follow up appointment in 2 weeks Please call the office on Saturday to schedule a follow up appointment in 2 weeks Cara Kang Phone: [facility] [address] [place] [address], [address] [place] [address] Allergies, Adverse Reactions, Alerts Allergen Type Severity Reaction Last Updated Verified Status No Known Allergies Allergy Unknown December 10, 2024 1:00pmYesActive Social History Smoking Status Status Start Date End Date Date of Observa tion Smokes tobacco daily (finding) November 26, 2024 6:12am Observation Status Observation Response Date of Response Legal Sex Female (finding) [facility] 1950 Social History Assessments Assessment Value Date Recorded SDOH Follow up November 28, 2024 8:37amQuestionAnswerDate RecordedHas the SDOH screening changed since admission?NOctober 2024 8:37am Family History Relationship Condition Age at Onset Recorded Date/T michelle father Diabetes mellitus Unknown Cerebrovascular accident (CVA)UnknownDeceasedUnknownmotherDeceasedUnknown Problems Active Problems Problem Diagnosis/Recorded Date Onset Date Stat Medicare annual wellness vis it, subsequent September 09, 2023 9:29am Unknown Active Screening for colon cancer November 26, 2023 12:12pm Unknown Active Ulcerative (chronic) pancoli tis without complications April 21, 2024 9:14am Unknown Active Lumbar radiculopathy October 28, 2024 9:37am Unkno wn Active Anxiety May 26, 2021 2:40pm Unknown Acti ve Hyperlipidemia, unspecified July 03, 2023 9:32am Unkn own Active Hypothyroid June 28, 2023 11:27am Unknown Activ e Preoperative examination November 20, 2024 7:49pm Unk nown Active Right foot pain July 03, 2023 9:31am Unknown Act dimitri Medications Medication Status Dose Units Route Directions Qty Days Refills S tart Date Stop Date End Date Reason(s) Instructions Adherence Alprazolam 0.5 mg tablet Discontinued 0.5 MG PO Twice daily as needed for anxiety 60 30 0 April 25, 2023 12:45pm June 27, 2023 10:48amAnxiety Anxiety disorder, unspecifiedBaclofen 10 mg tabletDiscontinued0.ROUTE.KUDNFIL132 May 06, 2023 4:38pmMay 2023 9:05amTAKE ONE TABLET BY MOUTH THREE TIMES A DAY NEEDEDAlprazolam 0.5 mg tabletDiscontinued0.5MGPOTwice daily as needed for kddygyl27463Mnu 2023 10:48amJune 2023 1:50pmAnxiety Anxiety disorder, unspecifiedAlprazolam 0.5 mg tabletDiscontinued0.5MGPOTwice daily as needed for thmipvf13276Jkam 2023 1:50pmJune 2023 1:51pm Anxiety Anxiety disorder, unspecifiedAlprazolam 0.5 mg tabletDiscontinued0.5MGPOTwice daily as needed for frenwjp20372Fgai 2023 1:50pmJuly 2023 3:49pm Anxiety Anxiety disorder, unspecifiedAlprazolam 0.5 mg tabletDiscontinued0.5MGPOTwice daily as needed for umqvcib59879Uvse 2023 3:49pmSeptember 2023 7:35amAnxiety Anxiety disorder, unspecifiedLevothyroxine 75 mcg tabletDiscontinued0.ROUTE .DIFQGMZ690Srkifh 2023 7:50amJanuary 2024 9:23amTAKE ONE TABLET BY MOUTH ONCE DAILYAlprazolam 0.5 mg tabletDiscontinued0.5MGPOTwice daily as needed for lcshije84236Mtyyuonui 2023 7:35amDecember 2023 9:39amAnxiety Anxiety disorder, unspecifiedSimvastatin 40 mg tabletDiscontinued0.ROUTE.COMPLEX 3011November 2023 2:15pmOctober 2024 10:46amTAKE ONE TABLET BY MOUTH ONCE DAILY AT BEDTIMEAlprazolam 0.5 mg tabletDiscontinued0.5MGPOTwice daily as needed for blabinf13238Etdwghlo 2023 9:39amFebruary 2024 5:15pmAnxiety Anxiety disorder, unspecifiedEscitalopram Oxalate 20 mg tabletDiscontinued0 .ROUTE.JXNZOZD3026Btjojbpp 2023 9:32amOctober 2024 10:46amTAKE ONE TABLET BY MOUTH DAILY 30Omeprazole 40 mg capsule,delayed release(DR/EC) Fqkfhlltbyyf50NIGBYlbplPnapuhqd 2023 1:00amDecember 2023 12:01pm Omeprazole 40 mg capsule,delayed release(DR/EC)Xqcqnrodpory80JQEWSfcmz66491 January 24, 2024 12:00pmMay 2024 1:02pmBuspirone 15 mg tablet Discontinued0.ROUTE.DOUFIXS033Tqymawl2024 9:46amMay 2024 3:16pmTAKE ONE TABLET BY MOUTH TWICE A DAYLevothyroxine 75 mcg tabletDiscontinued0.ROUTE .UWNGVAJ058Ypcactf 9th, 2025 9:23amJuly 2024 12:34pmTAKE ONE TABLET BY MOUTH ONCE DAILYAlprazolam 0.5 mg tabletDiscontinued0.5MGPOTwice daily as needed for ngtqrgo72040Aeishnaa 2024 5:15pmMarch 2024 9:29amAnxiety Anxiety disorder, unspecifiedAlprazolam 0.5 mg tabletDiscontinued0.25MGPOTwice mbihg90974Dukrr 2024 1:17pmJune 2024 1:26pmAnxiety Anxiety disorder, unspecified anxietyBuspirone 15 mg tabletDiscontinued0.ROUTE.ZMOSBNZ122Ofg2024 3:16pm Brittaney 2024 12:34pmTAKE ONE TABLET BY MOUTH TWICE A DAYOmeprazole 40 mg capsule,delayed release(DR/EC)Hkgjxpixwbsm36ASWAZakyu40802Fug 9th, 2025 1:02pm November 12, 2024 10:46amAlprazolam 0.5 mg tabletDiscontinued0.25MGPOTwice daily 50871Tgot 2024 1:26pmJuly 2024 12:34pmAnxiety Anxiety disorder, unspecified anxietyBuspirone 15 mg tabletDiscontinued0.ROUTE.FKDUDWP782Dwqi 2024 12:34pmOctober 2024 10:46amTAKE ONE TABLET BY MOUTH TWICE A DAY Levothyroxine 75 mcg tabletDiscontinued0.ROUTE.UVISXFW034Ubko 2024 12:34pm November 12, 2024 10:46amTAKE ONE TABLET BY MOUTH ONCE DAILYAlprazolam 0.5 mg tabletDiscontinued0.25MGPOTwice dbmni82224Hojh 2024 12:34pmAugust 2024 1:52pmAnxiety Anxiety disorder, unspecified anxietyAlprazolam 0.5 mg tabletDiscontinued0.25MGPOTwice hepkk21626Sbakxf 2024 1:52pmSeptember 2024 8:13amAnxiety Anxiety disorder, unspecified anxietyAlprazolam 0.5 mg tabletDiscontinued0.25MGPOTwice qknky94846Rlmpiyytn 2024 8:13amOctober 2024 10:46amAnxiety Anxiety disorder, unspecified anxietyMultivitamin MrgskcUpufkr2BOXCPHtamt eveningApril 2021 12:00am Complies with drug therapySulfasalazine 500 mg arwvxaYssttdmvsqvd829LGDALnjx times dailyApril 2021 12:00amMay 2023 9:07amOmeprazole 40 mg capsule,delayed release(DR/EC)Kzouwydovxmi13ZCPKQqamk at bedtimeApril 2021 12:00amJuly 2023 9:07amSimvastatin 40 mg BqljtpXjubmciassnp35ONSUEdgpb at bedtimeApril 2021 12:00amNovember 2023 2:15pmLevothyroxine 75 mcg zmsdcwDeinorjhpbmi77AVZQDMlqyi morningApril 2021 12:00amAugust 2023 7:50amAlprazolam 0.5 mg tabletDiscontinued0.5MGPOTwice dailyApril 2021 12:00amMarch 2023 12:46pmBaclofen 10 mg AyuspmZeoqymkevtbf48DGZIMfrsb daily as needed for PainApril 2021 12:00amMarch 2023 4:38pm Diclofenac Sodium 75 mg tablet,delayed release (DR/EC)Muzemmtoqfgk15BLKERrifi daily as needed for PainApril 2021 12:00amMay 2023 9:08amOn Hold: Resume on 06/02/21.Magnesium 200 mg MaabwzVsnjukqmngbw287FFDFYkqqfYpgne 2021 12:00amMay 2023 9:06amEscitalopram Oxalate 20 mg sehvaeDcgwkygwxqea16 MGPOEvery morningApril 2021 12:00amDecember 2023 9:32amEye Vitamin Qjjghn0SYHGOCreip morningApril 2021 12:00amComplies with drug therapy GlucoamineDiscontinuedMGPOTwice dailyApril 2021 12:00amOctober 2024 10:38amVitamin D And JqhornaAynsbp5RMAXMChiiq morningApril 2021 12:00amOn Hold: Resume on 12/03/24.Complies with drug ywfisecPewcdtfdsphNcwxoy7QOGUODpzhv morningOctober 2024 12:00amComplies with drug therapySulfasalazine 500 mg mwmgjcCztsdq7055XSPFZjfkj times dailyOctober 2024 12:00amOn Hold: Resume on 12/10/24.Complies with drug therapyAllergy SibfftkrvtMhvrez4GOEARUkzaf as needed for allergic symptomsOctober 2024 12:00amOn Hold: Resume on 12/03/24. pt. unsure of what allergy med she takesComplies with drug therapyOmeprazole 40 mg capsule,delayed release(DR/EC)Mmomga21IUKWYxngw eveningOctober 2024 12:00amComplies with drug therapySimvastatin 40 mg bhmwohJeafip89FWCMObirw eveningOctober 2024 12:00amComplies with drug therapyLevothyroxine 75 mcg wcuzjhJnkahx35WXENYPrrvl morningOctober 2024 12:00amComplies with drug therapyAlprazolam 0.5 mg tabletActive0.25MGPOTwice daily as needed for anxiety November 12, 2024 12:00amComplies with drug therapyBuspirone 15 mg tabletActive 15MGPOTwice dailyOct2024 12:00amComplies with drug therapyEscitalopram Oxalate 20 mg olaatgJlzwhw13PCFHPcoaf morningOct2024 12:00amComplies with drug therapyCyclobenzaprine 10 mg btdbajCyyfbvbmqujo03TYOJIcitf times daily as needed for back vrribw862Wptmxrn 2024 12:00amOctober 2024 1:11pm Cephalexin 500 mg ztcuydqWmtenf357BGTZLnzok times vqpaz313Andboiz 2024 12:00amComplies with drug therapyOxycodone 5 mg fbynahKppwpqukazki5XYCJSHLFF 4-6 HOURS as needed for mfjw7335Jbbgiac 2024October 2024 1:11pmLumbar radiculopathy Radiculopathy, lumbar regionPrednisone 10 mg tablets,dose imooOlxsry38AKXPkve package glacbuoocg088Zsimwjq 2024 12:00amtake 4 tabs for 3 days then take 3 tabs for 3 days then take 2 tabs for 3 days then take 1 tab for 3 daysComplies with drug therapyAlprazolam 0.5 mg tablet Discontinued0.5MGPOTwice daily as needed for olirnnp46823Eefvo 2024 9:17am May 27, 2024 1:18pmAnxiety Anxiety disorder, unspecifiedBuspirone 15 mg vkppehYfczktjumfdc86NDZJSpxmj daily 600December 2023 1:00amJanuary 2024 9:46amGabapentin 300 mg capsule Lylvotolobga877POPHNrkax times dailyAugust 2024 12:00amSeptember 2024 11:14amOxycodone 5 mg mjaqgiNptvrv3ASATLCVPI 4-6 HOURS as needed for pain40 70October 2024Lumbar radiculopathy Radiculopathy, lumbar regionComplies with drug therapyCyclobenzaprine 10 mg nnuwqiVrszgk21XKIDWrqlg times daily as needed for back pmmnfg463Qgevsfe 2024 1:11pmComplies with drug therapyBaclofen 10 mg tpgswqDwqfifrbbxti88ZSXY Daily as neededJuly 2023 12:00amDecember 2023 2:04pmPregabalin (Lyrica) 50 mg vxyddzfWtscyeqjapym26IRSXAnkxr times dailySeptember 2024 12:00amOctober 2024 10:41am Immunizations Immunization Event Date Not Given Reason Dose Number [employer] Lot Number Reason(s) Given Vaccine Information Statement (VIS) Detail Administration Location COVID-19 mRNA-1273 (Moderna) March 23, 2020 COVID-19 mRNA-1273 (Moderna)April 26OVID-19 mRNA-1273 (Moderna)December 09, 2020Fluzone TIV High-Dose 65YR+October 19, 2024U8800CAFPG [facility], unspecified formulationSeptember 2016influenza, unspecified formulationOctober 2019influenza, unspecified formulation November 15neumococcal Conjugate Vaccine, 13 valentSeptember 2016 Pneumococcal Polysacc. Vaccine, 23 valentOctober 2013Tetanus, Diphtheria adult, 5 Lf pres free absJuly 2014 Medical Equipment Device Date Implanted Device Details Spinal fusion graft kit November 26, 2024 MY: ()[id number] Polymeric spinal fusion cage , non-sterile November 26, 2024 MY: ()[id number] Polymeric spinal fusion cage , non-sterile November 26, 2024 MY: ()[id number] Bone-screw internal spinal fixation system, non-sterile November 26, 2024 MY: +[id number] Bone-screw internal spinal fixation system, non-sterile November 26, 2024 MY: +[id number] Bone-screw internal spinal fixation system, non-sterile November 26, 2024 MY: +[id number] Bone-screw internal spinal fixation system, non-sterile November 26, 2024 MY: +[id number] Bone-screw internal spinal fixation system, non-sterile November 26, 2024 MY: +[id number] Bone-screw internal spinal fixation system, non-sterile November 26, 2024 MY: +[id number] Bone-screw internal spinal fixation system, non-sterile November 26, 2024 MY: +[id number] Bone-screw internal spinal fixation system, non-sterile November 26, 2024 MY: +[id number] Bone-screw internal spinal fixation system, non-sterile November 26, 2024 MY: +[id number] Bone-screw internal spinal fixation system, non-sterile November 26, 2024 MY: +[id number] Bone-screw internal spinal fixation system, non-sterile November 26, 2024 MY: +[id number] Bone-screw internal spinal fixation system, non-sterile November 26, 2024 MY: +[id number] Bone-screw internal spinal fixation system, non-sterile November 26, 2024 MY: +[id number] Bone-screw internal spinal fixation system, non-sterile November 26, 2024 MY: +[id number] Relevant Diagnostic Tests and/or Laboratory Data Laboratory Results Test Collection Date/Time Result Date/Time Result Interpretation Reference Range Result Comment Performing Site Thyroid Stimulating Hormone 3rd Gen October 20, 2024 8:42am October 20, 2024 8:42am 4.153 u[iU]/mL Above high normal 0.358-3.740 Cholesterol/HDL [facility]S2024 [facility] 8:42am3.23.3 - 4.4 LOW RISK4.4 - 7.1 AVERAGE RISK7.1 - 11.0 MODERATE RISK>11.0 HIGH RISKAnion GapS2024 8:42am[facility]2024 8:42am15.1Free Thyroxine October 20, 2024 8:42am[facility]2024 8:42am1.16 ng/dL0.76-1.46Basophils # (Auto)October 20, 2024 8:42am[facility]20[facility] 8:42am0.0 10 3/uL0.0-0.1 Cholesterol LevelSept2024 8:42amSept2024 8:20in173 mg/dL Above high normal<=200Albumin/Globulin RatioSept2024 8:42amSept2024 8:42am1.1Basophils (%) (Auto)October 20, 2024 8:42am[facility]20[facility] 8:42am0.6 %0.2-2.0HDL CholesterolSept2024 8:42amSept2024 8:42am78 mg/dLAbove high xauppu01-25> or =60 mg/dl - LOW CARDIOVASCULAR RISK<40 mg/dl - HIGH CARDIOVASCULAR RISKAlbuminSeptb[facility] 2024 8:42am October 20, 2024 8:42am4.2 g/dL3.4-5.0Eosinophils # (Auto)October 20, 2024 8:42am[facility] 2024 8:42am0.0 10 3/uL0.0-0.7LDL Cholesterol, Calculated October 20, 2024 8:42amSprom[facility] 2024 8:73hu796.0 mg/dL<100 mg/dl SCDNAAM850-225 mg/dl NEAR OR ABOVE DMCBOQF541-432 mg/dl BORDERLINE NBDV795-583 mg/dl HIGH>190 mg/dl VERY HIGHAlkaline PhosphataseSept2024 8:42am October 20, 2024 8:42am82 U/H21-772Yzedtnikibj (%) (Auto)October 20, 2024 8:42am[facility]20[facility] 8:42am0.3 %Below low normal0.9-7.0Triglycerides Level October 20, 2024 8:42[facility]20[facility] 8:00ly223 mg/dL<=150Alanine Aminotransferase (ALT/SGPT)October 20, 2024 8:42[facility]2024 8:42am 27 U/J45-30HcommsddayLqkbvatkk 9th, 2025 8:42[facility]2024 8:42am40.0 % 36.0-48.0VLDL CholesterolSept2024 8:42amSept2024 8:42am 25.8 mg/dLAspartate Amino Transf (AST/SGOT)October 20, 2024 8:42amSept2024 8:42am24 U/L48-99DruuzzszoiQaowdshth 9th, 2025 8:42amSept2024 8:42am13.0 g/dL12.0-16.0BUN/Creatinine RatioSept2024 8:42am October 20, 2024 8:42am15.7Immature Granulocyte # (Auto)October 20, 2024 8:42amSept2024 8:42am0.01 10 3/uL0.00-0.03Blood Urea Nitrogen October 20, 2024 8:42amSept2024 8:42am11.0 mg/dL7.0-18.0Immature Granulocyte % (Auto)October 20, 2024 8:42amSept2024 8:42am0.2 % 0.0-0.5Calcium LevelSept2024 8:42amSept2024 8:42am9.4 mg/dL8.5-10.1Lymphocytes # (Auto)October 20, 2024 8:42amSept2024 8:42am1.1 10 3/uLBelow low normal1.2-3.8Chloride LevelSept2024 8:42am October 20, 2024 8:60ce053 mmol/P77-294Kaqmtgaomtm (%) (Auto)October 20, 2024 8:42amSept2024 8:42am16.9 %Below low dhyotm86.5-60.0Carbon Dioxide LevelSept2024 8:42amSept2024 8:42am25.2 mmol/L 21.0-32.0Mean Corpuscular HemoglobinSept2024 8:42amSept2024 8:42am30.7 pg26.7-34.0CreatinineSept2024 8:42amSept2024 8:42am0.70 mg/dL0.55-1.02Mean Corpuscular Hemoglobin ConcentSept2024 8:42amSept2024 8:42am32.5 g/dL29.9-35.2Estimated GFR ()October 20, 2024 8:42amSept2024 8:42am>60>=60 mL/min/1.73m 2Mean Corpuscular VolumeSept2024 8:42amS[facility]20[facility] 8:42am94.6 fL81.0-99.0Estimated GFR (Non- AmericanSept2024 8:42am[facility]2024 8:42am>60>=60 mL/min/1.73m 2Monocytes # (Auto) October 20, 2024 8:42am[facility]20[facility] 8:42am0.7 10 3/uL0.3-0.8Globulin October 20, 2024 8:42amSept2024 8:42am3.9 g/dLMonocytes (%) (Auto) October 20, 2024 8:42amSept2024 8:42am11.2 %1.7-12.0Glucose Level October 20, 2024 8:42am[facility]20[facility] 8:55qo300 mg/dLAbove high normal 74-106Mean Platelet VolumeSept2024 8:42am[facility]20[facility] 8:42am 9.9 fL9.5-13.5Potassium LevelSept2024 8:42amSept2024 8:42am4.3 mmol/L3.5-5.1Neutrophils # (Auto)October 20, 2024 8:42amSept2024 8:42am4.6 10 3/uL1.4-6.5Sodium LevelSept2024 8:42am October 20, 2024 8:64mo961 mmol/Z961-036Nchlwceobsf (%) (Auto)October 20, 2024 8:42amSeptember 2024 8:42am70.8 %43.0-75.0Total BilirubinSept2024 8:42amSept2024 8:42am0.6 mg/dL0.2-1.0Platelet Count October 20, 2024 8:42amSept2024 8:48tv729 10 3/zQ312-241Irhpf ProteinSept2024 8:42amSeptember 2024 8:42am8.1 g/dL6.4-8.2Red Blood CountSept2024 8:42amSeptember 2024 8:42am4.23 10 6/uL 4.20-5.40Red Cell Distribution WidthSept2024 8:42amSept2024 8:42am14.0 %11.0-15.0Corrected White Blood CountSeptember 2024 8:42am October 20, 2024 8:42am6.5 10 3/uL4.0-11.0Corrected White Blood CountOctober 2024 10:15amOctober 2024 10:41am5.7 10*3/uL3.8-11.6F[facility] [id number] [address] [facility] [address]Orspgrnzdzo WBC CountOctober 2024 10:15amOctober 2024 10:41am5.7 10*3/uL3.8-11.6FSelect [facility] [id number] [address] [facility] [address]Hkj Blood CountOctober 2024 10:15amOctober 2024 10:41am4.27 10*6/uL3.60-5.00[facility] [id number] [address] [facility] [address]CvcnozolnjRvrefhc 2024 10:15amOctober 2024 10:41am 13.2 g/dL11.8-15.4FSelect [facility] [id number] [address] [facility] [address]GjshfqqdojZxjevcw 2024 10:15amOctober 2024 10:41am 39.4 %34.0-46.4F[facility] [id number] [address] [facility] [address]Zzmw Corpuscular VolumeOctober 2024 10:15amOctober 2024 10:41am92.2 zG58-883XffgpyofiPaulding County Hospital Ctr [id number] [address] [facility] [address]Ccun Corpuscular HemoglobinOctober 2024 10:15amOctober 2024 10:41am31.0 pg24.7-34.3F[facility] [id number] [address] [facility] [address]Cqpy Corpuscular Hemoglobin ConcentOctober 2024 10:15am November 12, 2024 10:41am33.6 g/dL32.0-35.0[facility] [id number] [address] [facility] [address]Sss Cell Distribution WidthOctober 2024 10:15amOctober 2024 10:41am14.5 %11.9-15.3F[facility] [id number] [address] [place] [address]Tkivgazz CountOctober 2024 10:15amOctober 2024 10:75ar627 10*3/hN382-100PzezyadquPaulding County Hospital Ctr [id number] [address] [place] [address]Tpwe Platelet VolumeOctober 2024 10:15amOctober 2024 10:41am8.2 fL6.3-10.7F[facility] [id number] [address] [facility] [address]Ewucstzxech (%) (Auto)November 12, 2024 10:15amOctober 2024 10:41am71.5 %.[facility] [id number] [address] [facility] [address]Avsloxbzhfv (%) (Auto)November 12, 2024 10:15amOctober 2024 10:41am18.7 %.[facility] [id number] [address] [facility] [address]Ymifgmrro (%) (Auto)November 12, 2024 10:15amOctober 2024 10:41am9.0 %.[facility] [id number] [address] [facility] [address]Huomsiwlqgb (%) (Auto)November 12, 2024 10:15amOctober 2024 10:41am0.2 %.[facility] [id number] [address] [place] [id number] (%) (Auto)November 12, 2024 10:15amOctober 2024 10:41am0.6 %.[facility] [id number] [address] [facility] [address]Tdtfypjcu RBC Relative Count (auto)November 12, 2024 10:15am November 12, 2024 10:41am0.1 /100{WBC}0-0.5FSelect [facility] [id number] [address] [place] [id number] # (Auto)November 12, 2024 10:15amOctober 2024 10:41am4.1 10*3/uL1.8-7.7F[facility] [id number] [address] [facility] [address]Nzvtolbnbgo # (Auto)November 12, 2024 10:15amOctober 2024 10:41am1.1 10*3/uL1.00-4.8[facility] [id number] [address] [facility] [address]Padmiaymd # (Auto)November 12, 2024 10:15amOctober 2024 10:41am0.5 10*3/uL0.0-0.8[facility] [id number] [address] [place] [id number] # (Auto)November 12, 2024 10:15amOctober 2024 10:41am0.0 10*3/uL0.0-0.45[facility] [id number] [address] [place] [id number] # (Auto)November 12, 2024 10:15amOctober 2024 10:41am0.0 10*3/uL0.0-0.2FSelect [facility] [id number] [address] [facility] [address]Zkhhgjsxvuf TimeOctober 2024 10:15amOct2024 10:58am11.5 s9.0-12.9A hematocrit value greater than 55% may lead to inaccurate results in coagulation testing. Patientshaving hematocrit values >55% require a special collection tube for coagulation studies. Please contact the laboratory at [phone] for redraw instructions.[facility] [id number] [address] [facility] [address]Drfwdqyxo Time International RatioOctober 2024 10:15am November 12, 2024 10:58am1.0INR Therapeutic Range A) Pre- and Peroperative OAT started two weeks before surgery. NOT HIP SURGERY: 1.5 - 2.5 HIP SURGERY: 2 - 3B) Primary and secondary prevention of venous THROMBOSIS: 2 - 3C) Active venous thrombosis, pulmonary embolismand prevention of recurrent venous thrombosis: 2 - 3D) Prevention of arterial thromboembolismincluding patients with mechanical heart valves: 3 - 4.5F[facility] [id number] [address] [facility] [address]Wrfoycyfp Partial Thromboplast TimeOctober 2024 10:15am November 12, 2024 10:58am28.7 s25.1-36.5A hematocrit value greater than 55% may lead to inaccurate results in coagulation testing. Patientshaving hematocrit values >55% require a special collection tube for coagulation studies. Please c ontact the laboratory at [phone] for redraw instructions.[facility] [id number] [address] [facility] [address]Giaetrx LevelOct2024 10:15amOct2024 11:30am 100 mg/qJ14-657MDP recommended reference rangeRandom Glucose Reference Range is dependent on time and content of last meal. Glucose of more than 200 mg/dL in a nonstressed, ambulatory subject supports the diagnosisof Diabetes Mellitus. [facility] [id number] [address] [facility] [address]Paiuz Urea NitrogenOct2024 10:15amOct2024 11:30am8 mg/dL7-25[facility] [id number] [address] [facility] [address]UplmsuiubfBjkdbtw 2024 10:15amOctober 2024 11:30am 0.62 mg/dL0.60-1.20[facility] [id number] [address] [facility] [address]Qpdbvqkfw GFR (CKD-EPI)November 12, 2024 10:15amOctober 2024 11:30am> 60.0 mL/MinPaulding County Hospital Ctr [id number] [address] [place] [id number] LevelOctober 2024 10:15amOctober 2024 11:30am 135 mmol/LBelow low zhjpex790-322XsgmqjodnPaulding County Hospital Ctr [id number] [address] [place] [id number] LevelOctober 2024 10:15amOctober 2024 11:30am4.0 mmol/L3.5-5.1FSelect [facility] [id number] [address] [place] [id number] LevelOctober 2024 10:15amOctober 2024 11:91kd127 mmol/T18-161KcdfkxfwpPaulding County Hospital Ctr [id number] [address] [place] [id number] Dioxide LevelOctober 2024 10:15amOctober 2024 11:30am26.7 mmol/L21.0-31.0[facility] [id number] [address] [facility] [address]Esapa GapOctober 2024 10:15amOctober 2024 11:30am12.3 mEq/L6.0-15.0[facility] [id number] [address] [place] [id number] LevelOctober 2024 10:15amOctober 2024 11:30am 9.2 mg/dL8.6-10.3FSelect [facility] [id number] [address] [place], [place] [id number] Creatinine Clearance (ChemOctober 2024 10:15am November 12, 2024 11:30amN/[facility] [id number] [address] [place] [address] Vital Signs Vital Reading Result Reference Range Collection Date/Time Height 55.5 [in_i] September 30, 2024 9:58jsOmatel10.60 kgAugust 2024 9:54amBMI (Body Mass Index)37.5 kg/f0Ulrcgq 2024 9:94fwGkifre18 [in_i]October 19, 2024 8:02afZirpeb15.38 kgSeptember 2024 8:54amHeart Rate77 /jqf09-578Xlkfttmru 8th, 2025 8:54amBP Jtwamofx242 mm[Hg]100-140Sept2024 9:24amBP Edzzlnjxj80 mm[Hg]60-100Sept2024 9:24amBMI (Body Mass Index)38.1 kg/h6Xxjqymisa2024 8:42lpJjpvzr29.50 kgSeptember 2024 11:12amHeight 55 [in_i]November 19, 2024 9:50veLrydwe36.48 kgOctober 2024 9:53amHeart Rate88 /vzf93-999Bswuomx 9th, 2025 10:00amBP Mxmvmraj915 mm[Hg]100-140October 2024 10:15amBP Eghgnttpc02 mm[Hg]60-100Oct2024 10:15amBMI (Body Mass Index)37.6 kg/b4TuqaqqtNovember 19, 2024 9:79pxLnqnor34 [in_i]November 20, 2024 9:08stCulrng79.40 kgOct2024 9:30amBMI (Body Mass Index)37.5 kg/m2 November 20, 2024 9:30gkSrqodz78 [in_i]November 26, 2024 6:55raKarbbj20.60 kg November 29, 2024 5:13amBody Udieglyxkov90.6 [degF]97.6-99.0November 29, 2024 11:11amHeart Rate77 /xzz76-915MhjiqlvNovember 29, 2024 11:11amRespiratory rate17 /min 12-24Oct2024 12:20pmOxygen saturation by Pulse muwfqlqh38 %95-100 November 29, 2024 11:11amBP Nomcqzjr346 mm[Hg]100-140Octhighlands ar[facility] 2024 11:11am BP Tpgksmxcs00 mm[Hg]60-100Octhighlands arh regional medical center 2024 11:11amInhaled oxygen flow rate1 L/minOct2024 12:40rdEmzdpx64.30 kgNovhighlands arh regional medical center 2024 12:58pm Advance Directives Advance Directive Response Recorded Date/ Time Advance Directives No August 26 11:31am Insurance Providers Guarantor Tisha Cervantes Address [address] [address]Dtwnhgx Info.Home Phone: Coverage Status Update:2024 Payer Group Member ID Coverage Type Subscriber Relationship to Subscriber Effective Date Expiration Date Medicare [id number] Amyantonina Id: [id number] [address] [address] Home Phone: Email: [email or web address] Outpatient [id number] Encounters Encounter Location(s) Arrival/Admit Date Discharge/Departure Date Discharge/Departure Disposition Provider(s) Departed Physician/ Provider Office Visit -[facility] September 30, 2024 9:36am September 30, 2024 11:01am Discharged to home care or self care (routine discharge) Nasim Segal DO Departed Physician/ Provider Office Visit -[facility] October 19, 2024 8:50am October 19, 2024 9:42am Discharged to home care or self care (routine discharge) Danyell Kelly MD Non-patient / Non-visit -[facility] 2024 8:42am NENA Goeleparted Physician/Provider Office Visit-[facility] Neurology [facility]2024 8:45amSept2024 9:50amDischarged to home care or self care (routine discharge)Kim Talamantes DODeparted Physician/Provider [facility] 10:58amSept2024 11:59amDischarged to home care or self care (routine discharge)JERMAINE Kangeparted Qiflhpgt-Dpn-Whhjtuyy Testing November 12, 2024 9:33amOctober 2024 9:34amDischarged to home care or self care (routine discharge)JERMAINE Kangeparted [facility] 9:37amOctober 2024 10:26am Discharged to home care or self care (routine discharge)Danyell Kelly MD [facility]arted [facility] 9:29amOctober 2024 10:24amDischarged to home care or self care (routine discharge)Giovanna Kang-patient / Gge-ckoin-ViobeljwuMarion General HospitalOcthigh[facility] 2024 5:45Giovanna Vieyra-patient / [facility] 2:10pmMartin Kwong- patient / Cwk-osxrf-VrkeqkzetMarion General HospitalOctober 2024 12:00amNENA Soriaeparted Physician/Provider [facility] 12:58pmOctober 2024 1:28pmDischarged to home care or self care (routine discharge)Nasim Segal , Recent Diagnosis Onset Date Admit Date Right foot pain Unknown September 30 9:36am Anxiety Unknown October 19 8:50am Hyperlipidemia, unspecified Unknown Oct 8:50am Hypothyroid Unknown October 19 8:50am Medicare annual wellness visit, subsequent Unkno wn October 19, 2024 8:50am Right foot pain Unknown October 19 8:50am Ulcerative (chronic) pancoli tis without complications Unknown October 19, 2024 8:50am Lumbar radiculopathy Unknown October 122024 8:45am Lumbar radiculopathy Unknown October 132024 10:58am Anxiety Unknown November 19 9:37am Hyperlipidemia, unspecified Unknown 2024 9:37am Hypothyroid Unknown November 19 9:37am Lumbar radiculopathy Unknown November 9:37am Preoperative examination Unknown November 19, 2024 9:37am Lumbar radiculopathy Unknown November 9:29am Lumbar radiculopathy Unknown November 5:45am Lumbar radiculopathy Unknown November 12:58pm Assessments Diagnosis Onset Date Resolution Status Admit Date Right foot pain acuteAugust 2024 9:36amAnxietyacuteSeptember 2024 8:50am Hyperlipidemia, unspecifiedacuteSept2024 8:50amHypothyroidacute October 19, 2024 8:50amMedicare annual wellness visit, subsequentacute October 19, 2024 8:50amRight foot painacuteSept2024 8:50am Ulcerative (chronic) pancolitis without complicationsacuteSept2024 8:50amLumbar radiculopathyacuteSeptember 2024 8:45amLumbar radiculopathy acuteSeptember 2024 10:58amAnxietyacuteOctober 2024 9:37am Hyperlipidemia, unspecifiedacuteOctober 2024 9:37amHypothyroidacuteOctober 2024 9:37amLumbar radiculopathyacuteOctober 2024 9:37amPreoperative examinationacuteOctober 2024 9:37amLumbar radiculopathyacuteOctober 2024 9:29amLumbar radiculopathyacuteOctober 2024 5:45amLumbar radiculopathyacuteOctober 2024 12:58pm Plan of Treatment Author Nasim Segal [facility] HospitalAuthoredAugust 2024 10:44amIn summary is patient is a 74-year-old female presents to clinic today with chief [...] obtain flexion-extension films as her films are glna-cmux-lns. Once the EMG and the x-rays are done like to see her back for continued session of her symptom complex. All questions were answered to the satisfaction of the patient she is in agreement the above plan. Author Nasim [facility] HospitalAuthoredOcthighlands arh [facility] 2024 10:17amIn summary is patient is a 74-year-old female present to clinic today with chief complaints of intractable right lower extremity radiculopathy having failed the nonoperative route. At this time I again reviewed the MRI with her. I demonstrate how she has not only spondylolisthesis at 4 5 and 5 1 but also significant foraminal stenosis most notable that the L5-S1 foramen. We discussed how last time she had a L5 radiculopathy to which she identified a dermatomal map and how her symptoms are most compatible without an L5 dermatomal distribution. We discussed operative and nonoperative treatments to which she tells me that her symptoms are intractable much that she does want a proceed with surgery. We therefore made her surgical recommendation is to proceed with L4-S1 TLIF. We described the surgery what it entails as well as what the recovery process will look like. We discussed the inherent risks to include but not limited bleeding infection paralysis spinal cord injury nerve root injury loss of function of her extremities loss of bowel or bowel function CSF leak vascular injury resulting in stroke coma and malposition and instrumentation pseudoarthrosis worsening condition and need for surgery. After all this was discussed the patient tells me that the symptoms are severe enough that she does want proceed with surgery. Plan moving forward with surgery in the form of the planned proposed procedure of an L4-S1 TLIF as discussed with the patient today. All questions were answered to the satisfaction of the patient she is in agreement the above plan. Author Nasim PalmSelect [facility] HospitalAuthoredOctober 2024 1:28pmIn summary this patient symptoms 4-year-old female known to me for having undergone L4-S1 TLIF secondary to intractable right lower extremity radiculopathy with resolution and improvement of the symptoms. At this time incision appears to be well-healed. Therefore we have discontinued the mee. We have instructed her to continue with her restrictions. She will follow-up with us in 4 weeks for her 6-week x-rays. All questions were answered to the satisfaction of the patient she is in agreement the above plan. Author Danyell Kelly [facility] 2024 10:57amcheck luis Reviewed [place]AR[place] and discussed medication with patient at great lengths. She states she uses half of the pill twice a day every day. She is also on BuSpar for her anxiety. We discussed that the plan would be to decrease and ultimately discontinue the Xanax. She declines any referral to psychiatry or counseling. She signed a controlled substance contract in April 2024. Followup in 3-6 months. Check labs, continue levothyroxine check labs, continue simvastatin. Personalized health advice was given to the beneficiary to health education of preventative counseling services or programs aimed at reducing identified risk factors and improving self-management or community-based lifestyle interventions to reduce health risks and promote self-management and wellness, including physical activity and nutrition. Continued followup w Dr. Tatum. Author Nasim Segal [facility] 2024 12:07pmIn summary patient is a 74-year-old female retired from working at [employer] comes in today with chief complaints of lower extremity radiculopathy in the right-hand side to which she states is mainly over the right anterior lateral garcia to the foot but occasion will be over the lateral thigh as well. She used a dermatomal map today identified her symptoms as following that of an L5 distribution. At this time I then discussed the EMG results with her I discussed that the EMG did states she has got chronic bilateral L5 radiculopathies. I then we went over the MRI with her where she does have significant stenosis as well as a spondylolisthesis at the L5-S1 segment causing foraminal stenosis. I did tell her that as she has failed the nonoperative route that if surgical recommendations would be rendered that unfortunate because of the slips that she has with the spondylolisthesis that she would require an L4-S1 transforaminal lumbar interbody fusion. I described the surgery what it entails as well as what the Cover process will look like. I described to her the inherent risks to include but not limited to bleeding infection paralysis spinal cord injury nerve root injury loss of function of her extremities loss of bowel or bowel function CSF leak vascular injury resulting in stroke coma and malpositioning instrumentation pseudoarthrosis worsening condition and need for future surgery. After all this was discussed the patient tells me that she cannot live this way and does want a proceed with surgery. That being said I did tell her that I do want to obtain a CAT scan of her lumbar spine as well as a DEXA to evaluate her bone quality and then will have her return for wellness surgical discussion. All questions were answered to the satisfaction of the patient she is in agreement the above plan. Author Danyell Kelly [facility] HospitalAuthoredOctober 2024 7:51pmBarring any concerning findings on upcoming preoperative testing, Tisha is able to proceed w the upcoming lumbar procedure. Continue present medications. Future Tests Future scheduled test information is unavailable Pending Tests Test Name Ordered Date Scheduled Date XR lumbar spine 6V w bending September 30, 2024 1 0:41am Comprehensive Metabolic PanelSeptember 2024 9:22amXR foot RT min 3V* October 19, 2024 9:19amXR dexa axial skeletonSeptember 2024 11:54amCT lumbar spine wo conSeptember 2024 11:54am Future Visits Future appointment information is unavailable Future Procedures Procedure Name Ordered Date Scheduled Date Initiate Home Health November 27, 2024 1:08pm Admit Status OrderOctober 2024 11:58amOctober 2024 2:51pmDischarge OrderOctober 2024 10:29amOctober 2024 10:29amLipid PanelSeptember 2024 9:22amThyroid Stim Hormone w/RflxSeptember 2024 9:22am Future Medications Future medication information is unavailable Patient Instructions Instruction Admit Date Know your Meds November 26, 2024 5 :45am
[2024-12-23] VITALS (31 sets, daily range): BP systolic 148–197; BP diastolic 57–85; PULSE 76–95; TEMP 36.8–37; O2SAT 92–98; BMI 37.6; BMI 32.3
--- NOTE | 2024-12-23 07:08 | ECG_ITS ---
[facility] Test Date: 2024-12-23 Pat Name: ALEXANDRA GARDNER Department: Room: - Gender: Female Checkroom Attendant: : 1950 Requested By: [id number] Order Number: [id number] Reading MD: RAFAELA RODRIGUEZ Measurements Intervals Marina Rate: 81 P: 51 FL: 144 QRS: -12 QRSD: 86 T: 37 QT: 386 QTc: 423 Interpretive Statements 1100 Sinus rhythm 9110 normal ECG Compared to ECG 11/29/2023 11:03:41 No significant changes Electronically Signed On 12-23-2024 12:26:15 EST by RAFAELA RODRIGUEZ
--- NOTE | 2024-12-23 07:14 | ED.GENADUL1 ---
HPI HPI - General Adult General Chief complaint: Weakness Stated complaint: WEAKNESS Time Seen by Provider: 12/23/24 07:01 Mode of arrival: ambulance History of Present Illness HPI narrative: Patient is a 74-year-old female, approximately 1 month postop from a lumbar fusion, presenting to the emergency department for diarrhea. Patient states she has chronic constipation. She was placed on multiple laxatives/stool softeners during hospitalization last month. Since then, she has been having diarrhea. Today she had another episode of diarrhea and felt generally unwell, so she decided come to the ED to get checked out. The diarrhea is brown, nonbloody. She has no vomiting. She is still tolerating diet without issues. She denies any numbness/tingling/weakness in the lower extremities. She states she is still able to walk to the bathroom without issues. She states she can still feel when she needs to go to the bathroom and denies loss of bladder function. She denies any saddle anesthesia. She has no chest pain or shortness of breath. Related Data Home Medications ?Medication ?Instructions ?Recorded ?Confirmed alprazolam 0.5 mg tablet 0.5 mg PO DAILY 09/10/23 12/23/24 escitalopram oxalate 20 mg tablet 20 mg PO DAILY 09/10/23 12/23/24 levothyroxine 75 mcg tablet 75 mcg PO DAILY 09/10/23 12/23/24 omeprazole 40 mg capsule,delayed 40 mg PO DAILY 09/10/23 12/23/24 release simvastatin 40 mg tablet 40 mg PO DAILY 09/10/23 12/23/24 naproxen sodium 220 mg capsule 220 mg PO BID PRN pain 08/19/24 12/23/24 (Aleve) buspirone 15 mg tablet 15 mg PO BID 12/23/24 12/23/24 Previous Rx's ?Medication ?Instructions ?Recorded gabapentin 600 mg tablet 900 mg (1.5 x 600 mg) PO TID #135 09/16/24 tabs pregabalin 50 mg capsule (Lyrica) 50 mg PO TID #90 caps 10/14/24 Allergies Allergy/AdvReac Type Severity Reaction Status Date / Time No Known Drug Allergies Allergy Verified 12/23/24 06:46 Opioid HPI Opioid Management Most Recent Opioid Data: Last Pain Scale 3 Today, 12:06 Last Pain Assessment Today, 12:06 Last ORT Total Score 1 Today, 11:24 Last ORT Risk Category Low Risk Today, 11:24 Review of Systems ROS Status of ROS 10 or more systems reviewed and unremarkable except as noted in history and [facility] (Updated 12/23/24 @ 09:47 by Sabas Nolasco DO) Hypothyroid ?E03.9 - Hypothyroidism, unspecified (ICD-10) Acid reflux ?K21.9 - Gastro-esophageal reflux disease without esophagitis (ICD-10) Tumor, thyroid ?D49.7 - Neoplasm of unspecified behavior of endocrine glands and other parts of nervous system (ICD-10) Carpal tunnel syndrome ?G56.00 - Carpal tunnel syndrome, unspecified upper limb (ICD-10) Sleep apnea ?G47.30 - Sleep apnea, unspecified (ICD-10) Surgical History (Updated 12/23/24 @ 12:28 by Tesha Vilchis) History of lumbar fusion ?Z98.1 - Arthrodesis status (ICD-10) History of tubal ligation ?Z98.51 - Tubal ligation status (ICD-10) History of appendectomy ?Z90.49 - Acquired absence of other specified parts of digestive tract (ICD-10) History of carpal tunnel release ?Z98.890 - Other specified postprocedural states (ICD-10) Social History (Updated 12/23/24 @ 12:29 by Tesha Vilchis) Within the past year, how often did you have a drink containing alcohol: monthly or less Within the past year, how often did you have six or more drinks on one occasion: never Smoking status: Current every day smoker Non-prescribed substance use: denies use Previous occupational history: Retired [employer] Work[employer] Highest level of school completed/degree received: some college, no degree Do you want help with school or training: No Are you now , , , , never or living with a partner: never In a typical week, how many times do you talk on the telephone with family, friends, or neighbors: twice per week How often do you get together with friends or relatives: twice per week How often do you attend anglican or restorationism services: never Do you belong to any clubs or organizations such as anglican groups unions, fraternal or athletic groups, or school groups: no Total score: 1 Score interpretation: A score of less than or equal to 1 indicates the most socially isolated. Little interest or pleasure in doing things: not at all Feeling down, depressed, or hopeless: not at all Feel stressed/tense/nervous/anxious/difficulty sleeping: not at all Due to disability, difficulty making decisions: No Do you think of yourself as: straight/heterosexual Gender Identity: female Exam Narrative Exam Narrative: CONSTITUTIONAL: Well-appearing, answering questions and following commands appropriately SKIN: Was warm and dry. EYES: Sclerae white. EARS, NOSE, THROAT: Moist oral mucosa. RESPIRATORY: Clear to auscultation bilaterally, no wheezes, crackles, or stridor, no use of accessory muscles CARDIOVASCULAR: Normal rate and regular rhythm. There is no S3, S4, murmur, rub. GASTROINTESTINAL: Abdomen is soft, nontender, nondistended. No rebound tenderness or guarding. MUSCULOSKELETAL: There is a midline surgical incision on the patient's lumbar spine. The incision is clean/dry/intact without dehiscence. There is no surrounding erythema induration, or infectious changes. NEUROLOGIC: Patient is awake and alert. Equal strength and sensation to light touch throughout the bilateral lower extremities. Patient is able to ambulate with a mildly antalgic gait. Constitutional Vital Signs, click to edit/add: Last Vital Signs Temp 98.6 F 12/23/24 11:24 Pulse 89 12/23/24 11:24 Resp 16 12/23/24 11:24 BP 157/71 H 12/23/24 11:24 Pulse Ox 95 12/23/24 11:24 O2 Del Method Room Air 12/23/24 11:24 Course Vital Signs Vital signs: Vital Signs Blood Pressure 156/69 H 12/23/24 06:45 Pulse Oximetry 94 L 12/23/24 06:45 Temperature 98.6 F 12/23/24 11:24 Pulse Rate 89 12/23/24 11:24 Respiratory Rate 16 12/23/24 11:24 Blood Pressure 157/71 H 12/23/24 11:24 Pulse Oximetry 95 12/23/24 11:24 Oxygen Delivery Method Room Air 12/23/24 11:24 Medical Decision Making MDM Narrative Medical decision making narrative: Patient is a 74-year-old female, 1 month postop from lumbar fusion, presenting to the emergency department for evaluation of diarrhea. Her vital signs on arrival are within normal limits. She is afebrile and hemodynamically stable. Examination was unremarkable. Her abdomen is soft and benign. Her incision site from her recent surgery is clean/dry/intact without infectious changes. She is neurovascularly intact in the lower extremity with good strength, sensation, and perfusion. She is able to ambulate well. My clinical impression of the patient's symptoms are secondary to diarrhea from overuse of laxatives/stool softeners. She has no vomiting and is tolerating diet, low concern for SBO. Patient's exam is not consistent with surgical etiologies of abdominal pain such as appendicitis, cholecystitis, or perforated viscus. IV was established laboratory studies were obtained to rule out atypical presentation for ACS and underlying electrolyte derangement. She was given 1 L bolus of normal saline for rehydration. 12 Lead EKG: Normal sinus rhythm at a rate of 81. Normal axis. No ST segment elevations. QRS, VA, and QTc interval within normal limits. Unchanged compared to prior EKG from 11/29/2023. Final impression: normal sinus rhythm without evidence of acute myocardial ischemia CT abdomen/pelvis independently reviewed and interpreted by myself and radiology demonstrated no acute intra-abdominal pathologies. Laboratory studies were unremarkable. No significant electrolyte or metabolic derangement. No evidence of acute kidney injury. No significant anemia, leukocytosis, or thrombocytopenia. No transaminitis or hyperbilirubinemia. Troponin nonelevated. Patient's workup was unremarkable. On further discussion with the patient, she lives alone. She is unable to take care of herself at home. She states that she is too weak to squat and use the toilet, therefore she has not defecated on herself. She feels too weak to get up and take her medications. I do believe she warrants admission to the hospital for placement to subacute rehab. The patient is agreeable to this as well. I discussed the patient with Dr. Jackson who accepted the patient to his service. FINAL IMPRESSION: #Acute diarrhea from laxative overuse #Admission for placement to a subacute rehab DISPOSITION: Admitted to the hospital CONDITION: Fair Medical Records Medical records reviewed: Yes I reviewed the patient's medical records Lab Data Lab results reviewed: Yes I reviewed the patient's lab results Labs: Lab Results 12/23/24 12/23/24 12/23/24 Range/Units 07:00 08:15 08:55 WBC 8.6 (4.0-11.0) 10^3/uL RBC 3.28 L (4.20-5.40) 10^6/uL Hgb 9.0 L (12.0-16.0) g/dL Hct 28.3 L (36.0-48.0) % MCV 86.3 (81.0-99.0) fL MCH 27.4 (26.7-34.0) pg MCHC 31.8 (29.9-35.2) g/dL RDW 16.0 H (11.0-15.0) % Plt Count 284 (150-450) 10^3/uL MPV 9.3 L (9.5-13.5) fL Neut % (Auto) 77.8 H (43.0-75.0) % Lymph % (Auto) 12.6 L (20.5-60.0) % Cavalier % (Auto) 8.5 (1.7-12.0) % Eos % (Auto) 0.6 L (0.9-7.0) % Baso % (Auto) 0.3 (0.2-2.0) % Neut # (Auto) 6.7 H (1.4-6.5) 10^3/uL Lymph # (Auto) 1.1 L (1.2-3.8) 10^3/uL Cavalier # (Auto) 0.7 (0.3-0.8) 10^3/uL Eos # (Auto) 0.1 (0.0-0.7) 10^3/uL Baso # (Auto) 0.0 (0.0-0.1) 10^3/uL Abs Immat Gran (auto) 0.02 (0.00-0.03) 10^3/uL Imm/Tot Granulo (auto) 0.2 (0.0-0.5) % Sodium 141 (136-145) mmol/L Potassium 3.6 (3.5-5.1) mmol/L Chloride 103 (98-107) mmol/L Carbon Dioxide 26.9 (21.0-32.0) mmol/L Anion Gap 14.7 BUN 10.0 (7.0-18.0) mg/dL Creatinine 0.65 (0.55-1.02) mg/dL Est GFR ( Amer) >60 (>=60 mL/min/1.73m^2) Est GFR (Non-Af Amer) >60 (>=60 mL/min/1.73m^2) BUN/Creatinine Ratio 15.4 Glucose 116 H (74-106) mg/dL Calcium 8.8 (8.5-10.1) mg/dL Total Bilirubin 0.4 (0.2-1.0) mg/dL AST 15 (15-37) U/L ALT 19 (14-59) U/L Alkaline Phosphatase 183 H (46-116) U/L Troponin I High Sens 5.3 (4.0-51.3) pg/mL Total Protein 6.8 (6.4-8.2) g/dL Albumin 2.8 L (3.4-5.0) g/dL Globulin 4.0 g/dL Albumin/Globulin Ratio 0.7 Urine Color Lt. yellow (YELLOW) Urine Clarity Clear (CLEAR) Urine pH 6.0 (5.0-9.0) Ur Specific [place] 1.010 (1.005-1.025) Urine Protein Negative (NEG/TRACE) mg/dL Urine Glucose (UA) Negative (NEGATIVE) mg/dL Urine Ketones 15 A (NEGATIVE) mg/dL Urine Occult Blood Negative (NEGATIVE) Urine Nitrite Negative (NEGATIVE) Urine Bilirubin Negative (NEGATIVE) Urine Urobilinogen 0.2 (0.2-1.0) EU/dL Ur Leukocyte Esterase Negative (NEGATIVE) Urine RBC 0-2 (0-2) #/HPF Urine WBC 0-2 A (NONE SEEN) #/HPF Ur Squamous Epith Cells Rare (NONE/RARE) #/LPF Urine Crystals None seen (None Seen) #/HPF Urine Bacteria Trace A (NONE SEEN) #/HPF Urine Casts None seen (NONE SEEN) #/LPF Urine Mucus Trace A (NONE SEEN) Stool Occult Blood Negative Imaging Data CT scan - abdomen: Attestation: I personally reviewed and interpreted this imaging study as follows: Radiologist's impression: ITS Impressions Abdomen/Pelvis CT 12/23/24 08:18 IMPRESSION: CHOLELITHIASIS AND SLIGHT GALLBLADDER WALL THICKENING. RIGHT RENAL CYSTS AND NEPHROLITHIASIS. NO BOWEL OR URINARY TRACT OBSTRUCTION. NO PROMINENT STOOL LOAD. INTERVAL LOWER LUMBAR LAMINECTOMY AND FUSION. NO OTHER ACUTE FINDINGS. Impression dictated by: Giulia Villarreal M.D. 12/23/2024 9:30 AM Dictation Location: [place] [address] Electronically authenticated by: [id number] Y Date: 12/23/2024 09:30 ECG Data Attestation: I personally reviewed and interpreted this ECG as follows: Discharge Plan Discharge Chief Complaint: Weakness Clinical Impression: Diarrhea Patient Disposition: Admitted As Inpatient Time of Disposition Decision: 09:47 Condition: Good Discharge Date/Time: 12/23/24 10:43
[2024-12-23] MEDS: 0.9 % SODIUM CHLORIDE 1,000 ML 1000 ML IV (07:24)
[2024-12-23 07:34] LABS: Hematocrit 28.3 % (36.0-48.0); Hemoglobin 9.0 g/dL (12.0-16.0); Immature Granulocytes Abs Auto 0.02 10^3/uL (0.00-0.03); Immature Granulocytes Pct Auto 0.2 % (0.0-0.5); Lymphocytes Absolute Auto 1.1 10^3/uL (1.2-3.8); Mean Corpuscular HGB Conc 31.8 g/dL (29.9-35.2); Mean Corpuscular Hemoglobin 27.4 pg (26.7-34.0); Mean Corpuscular Volume 86.3 fL (81.0-99.0); Platelet Count 284 10^3/uL (150-450); Red Blood Count 3.28 10^6/uL (4.20-5.40); White Blood Count 8.6 10^3/uL (4.0-11.0)
--- OUTSIDE RECORDS SUMMARY | 2024-12-23 07:51 | XMS_ITS | Clinical Summary ---
Author Organization [facility] Address [address] [place] [address] Care Team Providers Care Dianeticist Name Role Phone Danyell Kelly MD Primary Care Provider Allergies Active AllergyReactionsCriticalityNoted LkusTxsrhshjIxohbblrfmp02/15/2024 Bad dreams Medications MedicationSigDispense QuantityRefillsLast FilledStart DateEnd DateStatus ALPRAZolam (Xanax) 0.5 MG tablet Take 0.5 mg by mouth as needed at ifyhofg8206/27/2023ctive escitalopram (Lexapro) 20 MG tablet Take 20 mg by mouth DailyActive sulfaSALAzine (Azulfidine) 500 MG tablet Take 500 mg by mouth 1 (one) time each day at the same timeActive omeprazole (PriLOSEC) [address] capsule 08/22/2023ctive levothyroxine (Synthroid, Levoxyl) 75 MCG tablet 1 (one) time each day at the same timeActive ibuprofen (Advil) 200 MG tablet every 8 (eight) hoursActive zonisamide (Zonegran) 50 MG capsule TAKE TWO CAPSULES BY MOUTH DAILY AT VDUGXAN5310/25/2023ctive simvastatin (Zocor) 40 MG tablet Take 40 mg by mouth at lcgothx9710/24/2023ctive mesalamine (Lialda) 1.2 g EC tablet 01/31/2024ctive busPIRone (Buspar) 15 MG tablet Take 15 mg by mouth in the morning and 15 mg before bedtime.5Active Misc. Devices misc Indications:Pre-op examinationDispense: Front Wheeled walker use 90 days. Ht: 4'11 Weight: 159lb 1 Units 06/23/2024tive Active Problems ProblemNoted DateDiagnosed BogbZtyfswn62/24/2024hronic ulcerative pancolitis 09/04/2023Hyperlipidemia, yowwyywuthj35/24/2256Mcgniwrmpoe42/24/2024Obstructive sleep apnea09/04/2023Status post total wvwdbodzajssk53/24/2024 Immunizations ImmunizationAdministration DatesNext DueABRYSVO - Respiratory syncytial virus (RSV), vaccine, bivalent, protein subunit RSV prefusion F, diluent reconstituted, 0.5 mL, PF12/03/2022Hep B, adult01/29/2003,08/10/2002,07/08/2002 Influenza, High Dose Seasonal, Preservative Free10/24/2016Influenza, Seasonal, Quadrivalent, Uwhhustvht76/27/2023Influenza, Rscqkwvwfzi40/05/2021,11/20/2019 Influenza, seasonal, dxofyuulmd30/01/2013Influenza, seasonal, injectable, preservative free11/16/2014Influenza, trivalent, bhlnwjwoaz97/11/2022,11/14/2017 ,11/08/2015Pneumococcal Conjugate PCV 13010/24/2016Pneumococcal Polysaccharide JQPN0907,11/14/2017,11/30/20135005LUGN-NMQ-9 (COVID-19) vaccine, mRNA, spike protein, LNP, PF, 50 mcg/0.5 mL12/03/2022Td (adult), 5 Lf tetanus toxoid, preservative free, fczhzlki64/21/2015Td (adult), iglitzyvbcm11/28/2003Zoster, Gyikugtnunu99/21/2023,07/18/2022Zoster, live07/09/2018,03/24/2013 Family History Medical HistoryRelationNameCommentsDiabetesFatherStrokeFatherRelationNameStatus CommentsFatherDeceasedMotherDeceased Social History Tobacco UseTypesPacks/DayYears UsedDateSmoking Tobacco: Every DayCigarettes Smokeless Tobacco: Never Tobacco Cessation:Ready to Q uit: Not Asked; Counseling Given: Not Answered Alcohol UseStandard Drinks/WeekCommentsYes0 (1 standard drink = 0.6 oz pure alcohol)OccationallyCommentsUnknownSex and Gender InformationValueDate RecordedSex Assigned at BirthNot on fileLegal NcgKsuwnb70/15/2023 7:27 PM EDT Gender IdentityNot on fileSexual OrientationNot on file Last Filed Vital Signs Vital SignReadingTime TakenCommentsBlood Xqbjtdhd256/70007/09/2018 12:00 PM EDT Pulse--Temperature--Respiratory Rate--Oxygen Saturation--Inhaled Oxygen Concentration--Szxbnr14.1 kg (159 lb)06/23/2024 1:30 PM DMYLysgee506.9 cm (4' 11 )06/23/2024 1:30 PM EDTBody Mass Index32.11006/23/2024 1:30 PM EDT Plan of Treatment Health MaintenanceDue DateLast DoneCommentsCOVID-19 Vaccine ( season) 5010/27/2021, 12/09/2020, 04/26/2020, Additional history existsInfluenza Vaccine (#1), 11/07/2022, 11/21/2021, Additional history existsPneumococcal Vaccine: 65+ VfnqjKvxndlfcm14/10/2018, 11/14/2017, 10/24/2016, Additional history uavtvyOygcudyvdmpTighkwghzxnm14/04/2024, 02/16/2020olorectal Cancer ScreeningDiscontinuedCT ColonographyDiscontinued FIT-DNADiscontinuedFITDiscontinuedFOBTDiscontinuedSigmoidoscopyDiscontinued Insurance Care Teams Team MemberRelationshipSpecialtyStart [place] [address] [place] [phone] PCP - GeneralFamily Medicine07/16/24
--- OUTSIDE RECORDS SUMMARY | 2024-12-23 07:51 | XMS_ITS | Patient Health Record ---
Author Organization [facility] [place] Address [address] [place] [address] Care Team Providers Care Relay Adjuster Name Role Phone Danyell Kelly Primary Care Provider Unavailabl e Allergies Allergen (clinical drug ingredient) Drug/Non Drug Allergy documented on EMR Reaction Allergy Type Onset Date Status varenicline Chantix Unknown Drug Allergy Active Reason For Referral No Information Medications Medication SIG (Take, Route, Frequency, Duration) Notes Start Date End Date Status Advil 200 MG 1 tablet with food or milk as ne eded Orally Three times a day ActiveAleve 220 MG1 tablet with food or milk as needed Orally every 12 hrsActive Levothyroxine Sodium 75 MCG1 tablet in the morning on an empty stomach Orally Once a dayActiveOmeprazole 20 MG1 capsule 30 minutes before morning meal Orally Once a dayActiveALPRAZolam 0.5 MG1 tablet Orally Twice a dayActiveEscitalopram Oxalate 20 MG1 tablet Orally Once a dayActiveSimvastatin 40 MG1 tablet in the evening Orally Once a dayActivesulfaSALAzine 500 MG1 tablet Orally Once a day Active Social History Tobacco Use: Social History Observation Description Date Details (start date - stop date) Former Smoker NA - NA Tobacco Use/Smoking Question Answer Notes Patient is a former smoker Problems Problem Type SNOMED Code ICD Code Onset Dates Problem Status W/U Status Risk Notes Problem Tinea pedis (2469493) Tinea pedis (B35.3) ActiveconfirmedProblemLocalized, primary osteoarthritis of the ankle and/or foot (830553117)Primary osteoarthritis, right ankle and foot (M19.071)Activeconfirmed ProblemPain in right foot (530263643754643)Pain in right foot (M79.671)Active confirmedProblemArthralgia of the ankle and/or foot (442797955)Right ankle pain (M25.571)Activeconfirmed Plan Of Treatment Pending Test Test Name Order Date MR ankle RT wo con 08/20/2023 Insurance Providers Payer Name Payer Address Payer Phone Subscriber Number Group Number Insured Name Patient Relationship to Insured Coverage Start Date Coverage End Date [place]IC[place] [address] [place] [address] [id number] Destiny Cervantes - patient is the [facility] [facility]PO [address] [address] [place] [id number], MarthaSelf - patient is the insured Medical (General) History Medical History History ICD Code GERD (gastroesophageal reflux disease) K 21.9 Hypothyroid E03.9 Depression F32.9 Surgical History Surgery Date(Month/Year) appendectomy tubal ligationright carpal tunnelright fingerthyroid tumor removal04/2021 Hospitalization History Reason Date(Month/Year) see above
--- OUTSIDE RECORDS SUMMARY | 2024-12-23 07:51 | XMS_ITS | Patient Health Record ---
Author Organization [facility] Address [address] [place] [address] Care Team Providers Care Yeast Tender Name Role Phone Danyell Kelly M.D. Primary Care Provider Bucky Valente Godinez Unavailable [phone] Allergies No Known Allergies Reason For Referral No Information Medications Medication SIG (Take, Route, Frequency, Duration) Notes Start Date End Date Status ALPRAZolam ActivelevothyroxineActiveescitalopramActivesimvastatinActiveomeprazoleActiveEye MultivitaminActivediclofenac sodium 75 mg1 tab(s) orally 2 times a day; Duration: 30 day(s)4ActiveCalcium 600+DActivediclofenac sodium 75 mg1 tab(s) orally 2 times a day; Duration: 30 day(s)4ActiveGlucosamine ChondroitinActivemultivitaminActive Social History Tobacco Use: Social History Observation Description Date Details (start date - stop date) Current Smoker NA - NA Smoking History Question Answer Notes Smoking Status Current Smoker Problems Problem Type SNOMED Code ICD Code Onset Dates Problem Status W/U Status Risk Notes Problem Osteoarthritis of knee (58428690 7) Primary osteoarthritis of left knee (M17.12) ActiveconfirmedProblemChondrocalcinosis of knee joint (131281371)Other chondrocalcinosis, left knee (M11.262)ActiveconfirmedProblemOsteoarthritis of knee (349035861)Bilateral primary osteoarthritis of knee (M17.0)Activeconfirmed ProblemOsteoarthritis of knee (068150028)Primary osteoarthritis of right knee (M17.11)ActiveconfirmedProblemLong term current use of non-steroidal anti- inflammatory drug (038680499994872)NSAID long-term use (Z79.1)Activeconfirmed Plan Of Treatment No Information Insurance Providers Payer Name Payer Address Payer Phone Subscriber Number Group Number Insured Name Patient Relationship to Insured Coverage Start Date Coverage End [place] [address] [place] [address] [id number] Janna GARDNER - patient is the insuredQue[facility] CenterPO [address] [address] [place] [id number], MARTHASelf - patient is the insured Medical (General) History Medical History History ICD Code Depression AnxietySleep apneaSurgical History Surgery Date(Month/Year) thyroid 3 yrs ago
--- OUTSIDE RECORDS SUMMARY | 2024-12-23 07:53 | XMS_ITS | CCD ---
Author Organization [facility] Care Team Providers Care [employer] Professor Name Role Phone MD Cy Sears Attending [...] Unavailable MORALES, DR LAURITA Solis Attending Unavailable PLANO, DR LONNY Wiggins Consulting Unavailable MORALES, DR [...] Care Unavailable MISC, DOCTOR Admitting Unavailable MISC, DOCTOR Attending Unavailable MISC, DOCTOR Consulting Unavailable Carmen, Laurita Unavailable Laurita Morales MD Primary Care Provider Martin Tatum Attending Unavaila ble Sarmini, Martin Talal Admitting Unavaila ble Sarmini, Martin Talal Attending Unavaila ble Sarmini, Martin Khan Attending Unavaila ble Sarmini, Martin Talal Admitting Unavaila ble Sarmini, Martin Felicianoal Attending Unavaila ble Sarmini, Martin Talal Admitting Unavaila ble Sarmini, Martin Khan Attending UnavailLaurita Schultz MD Primary Care Provider Laurita Morales MD Primary Care Provider JR. ALESHIA, LARISSA Hurley Attending Unavaila pato GUERRERO JR., LARISSA Hurley Attending Unavaila pato GUERRERO JR., LARISSA Hurley Referring Unavaila pato GUERRERO JR., LARISSA Hurley Attending Unavaila DOLLY Reed Attending Unavailable SOFIA BULL Attending Unavailable DOLLY VERAS Referring Unavailable ADALI GIORDANO Attending Unavailable ADALI GIORDANO Referring Unavailable DANIELLE CURRAN Attending Unavailable ANNETTE, ADALI Pompa Attending Unavailable ANNETTE, ADALI Pompa Attending Unavailable ABHI RAMIRES Attending Unavailable DOLLY VERAS Attending Unavailable DOLLY VERAS Attending Unavailable ANNETTE, ADALI Pompa Attending Unavailable ANNETTE, ADALI Pompa Attending Unavailable Joyce ALARCON, Zulay Lynch Attending Unavailable Joyce ALARCON, Zulay Lynch Attending Unavailable Laurita Morales MD Primary Care Provider [phone] Nasim Segal DO Attending Provider [phone] Laurita Morales MD Attending Provider [phone] Sin Bernard DO Attending Provider Nasim Segal DO Admit Provider Nasim Segal DO Other Provider [phone] Amy Victoria CMA Attending Provider UnavailCory Schultz MD Attending Provider Martin Tatum Attending UnavailLaurita Schultz Primary Care Unavailable Nasim Segal Attending Unavailable Nasim Segal Admitting Unavailable Nasim Segal Admitting Unavailable Laurita Morales Primary Care Unavailable Nasim Segal Attending Unavailable Allergies Allergy ClassificationReported Allergen(s)Allergy TypeDate of OnsetReaction(s) Facility (20 sources)varenicline; Translations: [varenicline]Drug [id number] UnknownNONY HealthcareComment on above:Outside Source Comment: Other Reaction(s): Unknown Medications Current Medications MedicationDrug Class(es)DatesSig (Normalized)Sig (Original)acetaminophen 325 mg / HYDROcodone bitartrate 5 mg oral tablet (2 sources)Opioid AgonistStart: 07-06-2024 End: 81-64-5835occf 1 tablet by mouth every six hours for painHYDROcodone- acetaminophen (Blessing) 5-325 MG tablet Indications: Acute medial meniscus tear of right knee, initial encounter Take 1 tablet by mouth every 6 (six) hours if needed for severe pain for up to 3 days 12 tablet 07/06/2024 07/09/2024 Active Start: 10-08-2023 End: 26-77-1348lirf 1 tablet by mouth every six hours for painHYDROcodone- acetaminophen (Blessing) 5-325 MG tablet Indications: Post-op pain Take 1 tablet by mouth every 6 (six) hours if needed for severe pain for up to 3 days 12 tablet 10/08/2023 10/11/2023 ActiveAlive Women's 50+ Complete Multivitamin (6 sources)Start: 59-73-7418Yufwe Women's 50+ Complete Multivitamin Oral, Daily, Refill(s) 0, Prophylaxis Start Date: 12/04/23 Status: OrderedStart: 12-04-2023 Alive Women's 50+ Complete Multivitamin Oral, Daily, Refill(s) 0 Start Date: 12/04/23 Status: OrderedAllergy Medication (5 sources)Start: 82-42-2411mvpz 1 tablet by mouth once daily as neededAllergy Medication Active 1 TAB PO Daily as needed for allergic symptoms November 12, 2024 12:00am On Hold: Resume on 12/03/24. pt. unsure of what allergy med she takes Complies with drug therapyStart: 95-44-3183jlkg 1 tablet by mouth once daily as neededAllergy Medication Active 1 TAB PO Daily as needed for allergic symptoms November 12, 2024 12:00am pt. unsure of what allergy med she takes Complies with drug therapyStart: 45-80-0527cilc 1 tablet by mouth once daily as neededAscorbic Acid / Beta Carotene / cuprous oxide / Lutein / sodium selenate / Vitamin E / Zinc Oxide (6 sources)Vitamin CStart: 54-03-1881Qjcxrdb Adult 50+ Refill(s) 0, Prophylaxis Start Date: 12/04/23 Status: OrderedStart: 11-43-4700Mrjshsh Adult 50+ Refill(s) 0 Start Date: 12/04/23 Status: OrderedbusPIRone hydrochloride 15 mg oral tablet (20 sources)Start: 48-82-0800asqv 1 tablet by mouth twice dailyBuspirone 15 mg tablet Active 15 MG PO Twice daily November 12, 2024 12:00am Complies with drug therapyStart: 78-27-3827tbzg 1 tablet by mouth in the morningbusPIRone (Buspar) 15 MG tablet Take 15 mg by mouth in the morning and 15 mg before bedtime. 02/19/2024 ActiveStart: 02-18-2024 End: 47-42-1153hfde 1 tablet by mouth twice dailyBuspirone 15 mg tablet Discontinued 0 .ROUTE .COMPLEX 60 2 August 19, 2024 12:34pm November 12, 2024 10:46am TAKE ONE TABLET BY MOUTH TWICE A DAYStart: 01-20-2024 End: 08-27-7618pnrj 1 tablet by mouth twice dailyBuspirone 15 mg tablet Discontinued 15 MG PO Twice daily 60 0 January 20, 2024 1:00am February 18, 2024 9:46amcalcium citrate 950 mg oral tablet (8 sources)Start: 07-68-0253honv 1 mg by mouth twice dailycalcium (as calcium citrate) 200 mg oral tablet mg tab(s), Oral, BID, Refills(s) 0, Prophylaxis Star t Date: 01/28/20 Status: Orderedcephalexin 500 mg oral capsule (2 sources)Cephalosporin AntibacterialStart: 86-99-7720pacy 1 capsule by mouth three times dailyCephalexin 500 mg capsule Active 500 MG PO Three times daily 15 0 November 27, 2024 12:00am Complies with drug therapycyclobenzaprine hydrochloride 10 mg oral tablet (3 sources)Muscle RelaxantStart: 11-27-2024 End: 61-10-8800bwku 1 tablet by mouth three times daily as needed for muscle spasmsCyclobenzaprine 10 mg tablet Active 10 MG PO Three times daily as needed for back spasms 50 0 December 10, 2024 1:11pm Complies with drug therapy escitalopram 20 mg oral tablet (20 sources)Serotonin Reuptake InhibitorStart: 89-80-7142wfih 1 tablet by mouth once daily in the morningEscitalopram Oxalate 20 mg tablet Active 20 MG PO Every morning November 12, 2024 12:00am Complies with drug therapyStart: 01-22-2024 End: 52-13-8581ngtq 1 tablet by mouth once dailyEscitalopram Oxalate 20 mg tablet Discontinued 0 .ROUTE .COMPLEX 30 January 22, 2024 9:32am November 12, 2024 10:46am TAKE ONE TABLET BY MOUTH DAILY 30Start: 05-26-2021 End: 91-36-6231dmui 1 tablet by mouth once daily in the morningEscitalopram Oxalate 20 mg tablet Discontinued 20 MG PO Every morning May 26, 2021 12:00am January 22, 2024 9:32amStart: 47-27-1828lwjohsxzjlai Oral, Daily, Refills(s) 0 Start Date: 01/28/20 Status: Ordered End: 42-11-4109raur 1 tablet by mouth once dailyescitalopram (Lexapro) 10 MG tablet Take 10 mg by mouth Daily 06/23/2024 Discontinued (Therapy completed)Eye Vitamin (10 sources)Start: 89-88-9659rwpk 1 tablet by mouth once dailyEye Vitamin Active 1 TAB PO Daily May 26, 2021 2:53pmStart: 98-73-9809yrbp 1 tablet by mouth once daily in the morningEye Vitamin Active 1 TAB PO Every morning May 26, 2021 12:00am Complies with drug therapyStart: 89-74-8422wmvf 1 tablet by mouth once daily in the morningStart: 79-31-1815bsvg 1 tablet by mouth once daily Start: 60-36-9947lrna 1 tablet by mouth once dailyEye Vitamin Active 1 TAB PO Daily May 26, 2021 12:00am Complies with drug therapyStart: 77-94-3426vyhh 1 tablet by mouth once dailyEye Vitamin Active 1 TAB PO Daily May 26, 2021 12:00amfolic acid 1 mg oral tablet (2 sources)Start: 85-92-4526aocs 1 tablet by mouth once dailyFolate 1 mg Tab 1 mg = 1 tab(s), Oral, Daily, # 30 tab(s), Refills(s) 0, Pharmacy: [facility], 150, cm, 07/25/20 14:29:00 EDT, Height/Length Dosing, 69.9, kg, 07/25/20 14:29:00 EDT, Weight Dosing Start Date: 07/25/20 Status: OrderedGlucoamine (10 sources)Start: 27-16-5332clge 1 mg by mouth twice dailyGlucoamine Active MG PO Twice daily May 26, 2021 2:53pmStart: 05-26-2021 End: 97-29-9076vlzt 1 mg by mouth twice dailyGlucoamine Discontinued MG PO Twice daily May 26, 2021 12:00am November 12, 2024 10:38amStart: 03-92-7882gnhr 1 mg by mouth twice dailyStart: 30-89-0673odhb 1 mg by mouth twice daily Glucoamine Active MG PO Twice daily May 26, 2021 12:00am Complies with drug therapyStart: 94-67-0114wajd 1 mg by mouth twice dailyGlucoamine Active MG PO Twice daily May 26, 2021 12:00amGlucosamine (13 sources)Start: 87-30-7769qsnx 1 capsule by mouth once daily in the morning Glucosamine Active 1 CAP PO Every morning November 12, 2024 12:00am Complies with drug therapyStart: 77-50-9881nvkh 1 capsule by mouth once daily in the morningStart: 36-01-0626zfho 1 tablet by mouth three times dailyglucosamine 500 mg oral tablet 500 mg = 1 tab(s), Oral, TID, # 90 tab(s), Refills(s) 0 Start Date: 01/28/20 Status: Orderedibuprofen 200 mg oral capsule (20 sources)Nonsteroidal Anti-inflammatory DrugStart: 12-27-8131mwyq 1 mg by mouth every six hoursibuprofen 200 mg oral capsule mg cap(s), Oral, q6hr, Refills(s) 0 Start Date: 12/04/23 Status: Orderedibuprofen (Advil) 200 MG tablet every 8 (eight) hours Activelevothyroxine sodium 0.075 mg oral tablet (20 sources)l-ThyroxineStart: 67-30-0218mnxj 1 tablet by mouth once daily in the morningLevothyroxine 75 mcg tablet Active 75 MCG PO Every morning November 12, 2024 12:00am Complies with drug therapyStart: 32-42-2512eypy 1 tablet by mouth once dailyLevothyroxine 75 mcg tablet Active 0 .ROUTE .COMPLEX February 20, 2024 9:23am TAKE ONE TABLET BYMOUTH ONCE DAILYStart: 09-27-2023 End: 19-06-6948hhqq 1 tablet by mouth once dailyLevothyroxine 75 mcg tablet Discontinued 0 .ROUTE .COMPLEX 10 07August 19, 2024 12:34pm November 10:46am TAKE ONE TABLET BY MOUTH ONCE DAILYStart: 05-26-2021 End: 40-69-7583upvx 1 tablet by mouth once daily in the morningLevothyroxine 75 mcg tablet Discontinued 75 MCG PO Every morning May 26, 2021 12:00am September 27, 2023 7:50amStart: 19-63-4967ncwfzvjojjgka Daily, Refills(s) 0, Thyroid Start Date: 01/28/20 Status: OrderedStart: 50-75-7295xqrbjpfkuilia Daily, Refills(s) 0 Start Date: 01/28/20 Status: Orderedtake 1 tablet by mouth once dailyLevothyroxine Sodium 75 MCG TAKE ONE TABLET BY MOUTH ONCE DAILY for 30 ActiveMagnesium (10 sources)Start: 17-53-5194ltfn 400 mg by mouth once dailyMagnesium Active 400 MG PO Daily May 26, 2021 2:53pmStart: 05-26-2021 End: 13-70-0821lyzu 2 tablets by mouth once dailyMagnesium 200 mg Tablet Discontinued 400 MG PO Daily May 26, 2021 12:00am July 03, 2023 9:06am mesalamine 1200 mg delayed release oral tablet (20 sources)AminosalicylateStart: 59-80-2332drhwbanltb (Lialda) 1.2 g EC tablet 01/31/2024 ActiveStart: 47-15-9534hozc 4 tablets by mouth once dailymesalamine (Lialda) 1.2 g EC tablet TAKE FOUR TABLETS BY MOUTH DAILY 01/31/2024 Active methocarbamol 750 mg oral tablet (1 source)Muscle RelaxantMethocarbamol 750 MG Orally Four times a day Active Misc. Devices misc (12 sources)Start: 77-88-5389Xzms. Devices misc Indications: Pre-op examination Dispense: Front Wheeled walker use 90 days. Ht: 4'11 Weight: 159lb 1 Units 06/23/2024 ActiveMultivitamin (Multi-Day) Tablet (1 source)Start: 54-59-4251filq 1 tablet by mouth once dailyMultivitamin (Multi- Day) Tablet Active 1 TAB PO Daily May 26, 2021 2:53pmMultivitamin Tablet (9 sources)Start: 08-68-8922qdjk 1 tablet by mouth once daily in the evening Multivitamin Tablet Active 1 TAB PO Every evening May 26, 2021 12:00am Complies with drug therapyStart: 24-72-5710uezg 1 tablet by mouth once daily in the eveningStart: 21-41-4798cowq 1 tablet by mouth once dailyStart: 05-26-2021 take 1 tablet by mouth once dailyMultivitamin Tablet Active 1 TAB PO Daily May 26, 2021 12:00am Complies with drug therapyStart: 58-89-4019fpws 1 tablet by mouth once dailyMultivitamin Tablet Active 1 TAB PO Daily May 26, 2021 12:00amAleve (1 source)Nonsteroidal Anti-inflammatory DrugStart: 06-15-3051ilah 1 mg by mouth every twelve hoursAleve mg, Oral, q12hr, Refills(s) 0 Start Date: 03/20/24 Status: OrderedNuLYTELY [place] oral powder for reconstitution (1 source)Start: 05-56-4112ouwu 1 dose by mouth onceNuLYTELY [place] oral powder for reconstitution See Instructions, 1 EA, Refill(s) 0, PER PHYS INSRTUCTIONS, [facility], 150, cm, 01/28/20 10:49:00 EST, Height/Length Dosing, 69.9, kg, 01/28/20 10:49:00 EST, Weight Dosing Start Date: 01/28/20 Status: OrderedoxyCODONE hydrochloride 5 mg oral tablet (3 sources)Opioid AgonistStart: 23-48-3083psab 1 tablet by mouth every four to six hours as needed for painOxycodone 5 mg tablet Active 5 MG PO EVERY 4-6 HOURS as needed for pain 40 7 0 December 10, 2024 Lumbar radiculopathy Radiculopathy, lumbar region Complies with drug therapyStart: 11-27-2024 End: 09-14-4961zsti 1 tablet by mouth every four to six hours as needed for pain Oxycodone 5 mg tablet Discontinued 5 MG PO EVERY 4-6 HOURS as needed for pain 40 7 0 November 27, 2024 December 10, 2024 1:11pm Lumbar radiculopathy Radiculopathy, lumbar regionpolyethylene glycol 3350 421294 mg / potassium chloride 1480 mg / sodium bicarbonate 5720 mg / sodium chloride 90571 mg powder for oral solution (1 source)Osmotic LaxativeStart: 28-72-7393aanw 1 dose by mouth onceNuLYTELY [place] oral powder for reconstitution See Instructions, 1 EA, Refill(s) 0, PER PHYS INSRTUCTIONS, [facility], 150, cm, 01/28/20 10:49:00 EST, Height/Length Dosing, 69.9, kg, 01/28/20 10:49:00 EST, Weight Dosing Start Date: 01/28/20 Status: OrderedpredniSONE 10 mg oral tablet (20 sources)Start: 40-79-2230Igpqwafzsu 10 mg tablets,dose pack Active 10 MG PO per package directions November 27, 2024 12:00am take 4 tabs for 3 days then take 3 tabs for 3 days then take 2 tabs for 3 days then take 1 tab for 3 days Complies with drug therapyStart: 01-16-2024 End: 69-00-9182mmgiciTJEK (Deltasone) 5 MG tablet START WITH 40MG (8 TABS) BY MOUTH FOR 7 DAYS, THEN DECREASE BY 5MG (1 TAB) EVERY 7 DAYS UNTIL FINISHED 01/16/2024 06/23/2024 Discontinued (Therapy completed)Start: 01-16-2024 predniSONE 5 mg Tab See Instructions, Start with 40mg x1 week and decrease by 5mg every week until finished, # 252 tab(s), Refills(s) 0, Pharmacy: [place] [id number], 69, kg, 01/15/24 9:14:00 EST, Weight Dosing Start Date: 01/16/24 Status: Orderedsimvastatin 40 mg oral tablet (20 sources)HMG-CoA Reductase InhibitorStart: 61-39-3205qpux 1 tablet by mouth once daily in the eveningSimvastatin 40 mg tablet Active 40 MG PO Every evening November 12, 2024 12:00am Complies with drugtherapyStart: 12-26-2023 End: 48-96-6485brjg 1 tablet by mouth once daily at bedtimeSimvastatin 40 mg tablet Discontinued 0 .ROUTE .COMPLEX 30 December 26, 2023 2:15pm November 12, 2024 10:46am TAKE ONE TABLET BY MOUTH ONCE DAILY AT BEDTIMEStart: 05-26-2021 End: 78-39-4018fbeq 1 tablet by mouth once daily at bedtimeSimvastatin 40 mg Tablet Discontinued 40 MG PO Daily at bedtime May 26, 2021 12:00am December 26, 2023 2:15pmStart: 32-93-8488fkcuwjkznhc Oral, Refills(s) 0, High cholesterol Start Date: 01/28/20 Status: OrderedsulfaSALAzine 500 mg oral tablet (20 sources)AminosalicylateStart: 42-82-2690cfiz 1 tablet by mouth three times dailySulfasalazine 500 mg tablet Active 1000 MG PO Three times daily November 12, 2024 12:00am On Hold: Resume on 12/10/24. Complies with drug therapyStart: 03-20-2024 End: 27-79-7711aarx 2 tablets by mouth three times dailysulfasalazine 500 mg Tab 1,000 mg = 2 tab(s), Oral, TID, X 90 day(s), # 540 tab(s), Refills(s) 3, Ph armacy: [facility], 150, cm, 03/20/24 11:03:00 EST, Height/Length Dosing, 74.6, kg, 03/20/24 11:03:00 EST, Weight Dosing Start Date: 03/20/24 Stop Date: 03/15/25 Status: OrderedStart: 05-26-2021 End: 80-77-0716xvpq 1 tablet by mouth four times dailySulfasalazine 500 mg tablet Discontinued 500 MG PO Four times daily May 26, 2021 12:00am June, 2023 9:07amStart: 80-31-7435pwxz 2 tablets by mouth three times daily sulfasalazine 500 mg Tab 1,000 mg = 2 tab(s), Oral, TID, # 180 tab(s), Refills(s) 11, Pharmacy: [facility]/pharmacy #[id number], 150, cm, 05/10/21 11:13:00 EDT, Height/Length Dosing, 71, kg, 05/10/21 11:13:00 EDT, Weight Dosing Start Date: 05/10/21 Status: Orderedtake 1 tablet by mouth once dailysulfaSALAzine (Azulfidine) 500 MG tablet Take 500 mg by mouth 1 (one) time each day at the same time ActiveVitamin D And Calcium (10 sources)Start: 38-17-0357Dhvwuub D And Calcium Active PO Twice daily May 26, 2021 2:53pmStart: 59-24-7846lobb 1 tablet by mouth once daily in the morningVitamin D And Calcium Active 1 TAB PO Every morning May 26, 2021 12:00am On Hold: Resume on 12/03/24. Complies with drug therapyStart: 05-26-2021 take 1 tablet by mouth once daily in the morningVitamin D And Calcium Active 1 TAB PO Every morning May 26, 2021 12:00am Complies with drug therapyStart: 43-61-1676zfle 1 tablet by mouth once daily in the morningStart: 05-26-2021 Start: 99-34-6511Enhskgd D And Calcium Active PO Twice daily May 26, 2021 12:00am Complies with drug therapyStart: 61-39-8511Eaavbfq D And Calcium Active PO Twice daily May 26, 2021 12:00amzonisamide 50 mg oral capsule (20 sources)Anti-epileptic AgentStart: 25-70-8640znfx 2 capsules by mouth once daily at bedtimezonisamide (Zonegran) 50 MG capsule TAKE TWO CAPSULES BY MOUTH DAILY AT BEDTIME 10/25/2023 Active Completed/Discontinued Medications MedicationDrug Class(es)DatesSig (Normalized)Sig (Original)ALPRAZolam 0.5 mg oral tablet (20 sources)BenzodiazepineStart: 05-27-2024 End: 47-21-0969tise 0.25 mg by mouth twice dailyAlprazolam 0.5 mg tablet Discontinued 0.25 MG PO Twice daily 30 30 0 November 09, 2024 8:13am November 12, 2024 10:46am Anxiety Anxiety disorder, unspecified anxietyStart: 05-26-2021 End: 38-58-7290yapf 1 tablet by mouth twice daily as needed for anxiety Alprazolam 0.5 mg tablet Discontinued 0.5 MG PO Twice daily as needed for anxiety 50 30 0 April 21, 2024 9:17am May 27, 2024 1:18pm Anxiety Anxiety disorder, unspecifiedStart: 53-89-5771mmgbyfxqpn Oral, Refills(s) 0, Anxiety Start Date: 01/28/20 Status: OrderedStart: 67-56-4135bsxpjphtdu Oral, Refills(s) 0 Start Date: 01/28/20 Status: Orderedbaclofen 10 mg oral tablet (20 sources)gamma-Aminobutyric Acid-ergic AgonistStart: 09-09-2023 End: 35-85-8998siqg 1 tablet by mouth once daily as neededBaclofen 10 mg tablet Discontinued 10 MG PO Daily as needed September 09, 2023 12:00am January 20, 2024 2:04pmStart: 05-06-2023 End: 61-35-0794yssm 1 tablet by mouth three times daily as neededBaclofen 10 mg tablet Discontinued 0 .ROUTE .COMPLEX 90 0 May 06, 2023 4:38pm July 03, 2023 9:05am TAKE ONE TABLET BY MOUTH THREE TIMES A DAY NEEDEDStart: 05-26-2021 End: 95-36-9840xjvc 1 tablet by mouth twice daily as needed for painBaclofen 10 mg Tablet Discontinued 10 MG PO Twice daily as needed for Pain May 26, 2021 12:00amMa2023 4:38pmStart: 24-69-0014lqxdjhir Oral, TID, Refills(s) 0, Muscle pain Start Date: 01/28/20 Status: Orderedbenzonatate 100 mg oral capsule (1 source)Non-narcotic AntitussiveStart: 84-27-3582wqzq 1 capsule by mouth every eight hours as needed for coughBenzonatate 100 MG 1 capsule as needed Orally every 8 hours as needed for cough for 5 days Sep, Not-Taking clarithromycin 500 mg oral tablet (1 source)Macrolide AntimicrobialStart: 67-03-5392qilx 1 tablet by mouth twice dailyBiaxin 500 MG 1 tablet Orally Twice a day for 10 day(s) Sep, Not-Takingdiclofenac sodium 75 mg delayed release oral tablet (11 sources)Nonsteroidal Anti-inflammatory DrugStart: 05-26-2021 End: 56-70-1266spim 1 tablet by mouth twice daily as needed for painDiclofenac Sodium 75 mg tablet,delayed release (DR/EC) Discontinued 75 MG PO Twice daily as needed for Pain May 26, 2021 12:00am July 03, 2023 9:08am On Hold: Resume on 06/02/21.take 1 tablet by mouth twice daily at mealtime as neededDiclofenac Potassium 50 MG 1 tablet with food or milk as needed Orally Twice a day Active gabapentin 300 mg oral capsule (8 sources)Anti-epileptic AgentStart: 09-30-2024 End: 04-10-9063kpav 3 capsules by mouth three times dailyGabapentin 300 mg capsule Discontinued 900 MG PO Three times daily September 30, 2024 12:00am November 04, 2024 11:14ammethylPREDNISolone (20 sources)CorticosteroidStart: 04-15-2024 End: 33-75-3646ijpwbeVHMBCDMoefkq (Medrol Dospak) 4 MG tablets Indications: Acute pain of left knee Follow schedule on package instructions 21 tablet 04/15/2024 06/23/2024 Discontinued (Therapy completed)Start: 04-15-2024 methylPREDNISolone (Medrol Dospak) 4 MG tablets Indications: Acute pain of left knee Follow schedule on package instructions 21 tablet 04/15/2024 ActiveStart: 12-31-2023 End: 48-82-0270fgigvxANDTRVLyciaf (Medrol Dospak) 4 MG tablets Indications: S/P left knee arthroscopy , Left knee pain, unspecified chronicity Follow schedule on package instructions 21 tablet 12/31/2023 06/23/2024Discontinued (Therapy completed)Start: 21-90-1927zaeqdgDSZCITXwbsfk (Medrol Dospak) 4 MG tablets Indications: S/P left knee arthroscopy , Left knee pain, unspecified chronicity Follow schedule on package instructions 21 tablet 12/31/2023 Activeomeprazole 40 mg delayed release oral capsule (20 sources)Proton Pump InhibitorStart: 05-26-2021 End: 52-58-4485iwzt 1 capsule by mouth once dailyOmeprazole 40 mg capsule,delayed release(DR/EC) Discontinued 40 MG PO Daily 30 30 5 June 19, 2024 1:02pm November 12, 2024 10:46amStart: 70-64-5419ypqqwvjmcg Oral, Daily, Refills(s) 0, Control of stomach acid Start Date: 01/28/20 Status: Ordered End: 04-03-6892doiyuqtkmy (PriLOSEC) [address] capsule 1 (one) time each day at the same time 06/23/2024 Discontinued (Therapy completed)pregabalin 50 mg oral capsule (6 sources)Start: 11-04-2024 End: 48-76-6231lucy 1 capsule by mouth three times dailyPregabalin (Lyrica) 50 mg capsule Discontinued 50 MG PO Three times daily November 04, 2024 12:00am November 12, 2024 10:41am Problems Active Problems Problem ClassificationProblemDateDocumented DateEpisodic/ChronicAbdominal pain (9 sources)Abdominal pain; Translations: [Unspecified abdominal pain]12-03-2023 EpisodicAnxiety disorders (20 sources)Mixed anxiety and depressive disorder; Translations: [Other specified anxiety disorders]Onset: 22-67-1107IivvlqhHiafhsp on above:Problem List clean-up per request of Phys. EHR CmteDisorders of lipid metabolism (20 sources)Hyperlipidemia, unspecified; Translations: [Hyperlipoproteinemia] Onset: 08-72-1195ZtprwpgYvuqrnjzoh disorders (17 sources)Gastroesophageal reflux disease; Translations: [Gastro-esophageal reflux disease without esophagitis]Onset: 00-19-7131UeucwteUakom and electrolyte disorders (6 sources)Jtkorekrjkn41-85-2613EeyacediFilab disorders and dislocations; trauma-related (6 sources)Derangement of left knee; Translations: [Unspecified internal derangement of left knee]66-13-9332XmlvsszVqkar disorders and dislocations; trauma-related (5 sources)Acute tear of medial meniscus of right knee; Translations: [Other tear of medial meniscus, current injury, right knee, initial encounter] 14-92-2039KyureavxJyujvjjhq of unspecified nature or uncertain behavior (6 sources)Neoplasm of thyroid iloat83-00-2459CdulxstlOavxslunoxlph gastroenteritis (17 sources)Chronic diarrhea; Translations: [Noninfective gastroenteritis and colitis, unspecified]Onset: 39-78-7673RewqnmltBbmtrugkemsw breast conditions (3 sources)Breast signs and symptoms; Translations: [Other signs and symptoms in breast]EpisodicOsteoarthritis (20 sources)Osteoarthritis; Translations: [Unspecified osteoarthritis, unspecified site]Onset: [id number] circulatory disease (3 sources)Elevated blood-pressure reading without diagnosis of hypertension; Translations: [Elevated blood-pressure reading, without diagnosis of hypertension]EpisodicOther connective tissue disease (4 sources)Other muscle spasm; Translations: [OTHER MUSCLE SPASM]Onset: 70-90-2577DaggfkroEdhpq connective tissue disease (20 sources)Pain in right foot; Translations: [Pain in right foot]Onset: [id number] connective tissue disease (2 sources)Pain in right footEpisodicOther connective tissue disease (1 source)Iliotibial band syndrome, left legEpisodicOther connective tissue disease (1 source)Foot pain; Translations: [Pain in right foot]65-10-3128RfchheaeQwfpp lower respiratory disease (3 sources)Lung field abnormal; Translations: [Other nonspecific abnormal finding of lung field]EpisodicOther nervous system disorders (9 sources)Carpal tunnel syndrome; Translations: [Carpal tunnel syndrome, unspecified upper limb]Onset: [id number] non-traumatic joint disorders (10 sources)Pain in left knee; Translations: [Pain in joint, lower leg] 74-59-8334SpcuwusdDhzsw non-traumatic joint disorders (4 sources)Pain in right knee; Translations: [Pain in joint, lower leg] 67-28-3140DxspiogwKheeg nutritional; endocrine; and metabolic disorders (4 sources)Body mass index 30+ - obesity; Translations: [Body mass index (BMI) 35.0-35.9, adult]ChronicOther nutritional; endocrine; and metabolic disorders (9 sources)Obese class II; Translations: [Body mass index (BMI) 35.0-35.9, adult]12-15-5493FdmesfkCzzka nutritional; endocrine; and metabolic disorders (6 sources)Lmvmvnniifuqeu15-26-4329RfepzvoMnfko screening for suspected conditions (not mental disorders or infectious disease) (14 sources)Encounter for screening mammogram for malignant neoplasm of breast; Translations: [Patient encounter status]Onset: 81-79-2235FcsgjhkqEsksj upper respiratory disease (3 sources)Seasonal allergic rhinitis; Translations: [Other seasonal allergic rhinitis]Onset: 95-04-0362LkwuaulEfdudaif enteritis and ulcerative colitis (20 sources)Chronic ulcerative pancolitis; Translations: [Ulcerative (chronic) pancolitis without complications]Onset: 62-16-7560ZgdzmalTchghndo codes; unclassified (20 sources)Obstructive sleep apnea syndrome; Translations: [Obstructive sleep apnea (adult) (pediatric)]Onset: 475129-77-0334JwsjqitUjgaavad codes; unclassified (10 sources)History of arthroscopy of knee joint; Translations: [Other specified postprocedural states]41-36-0274IjeluflmWukdwnsv codes; unclassified (4 sources)History of arthroscopy of knee joint; Translations: [Other specified postprocedural states]15-33-1655KyzfypotNklwnkmsozf; intervertebral disc disorders; other back problems (6 sources)Spondylosis without myelopathy or radiculopathy, lumbar region; Translations: [Other intervertebraldisc degeneration, lumbar region]Onset: 51-14-5271SbytzvdBgkzyjviymd; intervertebral disc disorders; other back problems (20 sources)Muscle spasm of back; Translations: [Low back pain]Onset: 02-13-2018 EpisodicSubstance-related disorders (7 sources)Nicotine dependence, cigarettes, uncomplicated; Translations: [Tobacco user]Onset: 85-57-1281AawxwowEwzgspy disorders (20 sources)Nontoxic goiter, unspecified; Translations: [Hypothyroidism, unspecified]Onset: 15-75-5258YqqrzynZzrxpbwlqxgx (4 sources)LOW BACK PAIN, UNSPECIFIED; Translations: [LOW BACK PAIN, UNSPECIFIED]Onset: 63-82-8518Osfaxzgkchjv (1 source)CONTACT W/AND (SUSP) EXPOS COVID-19; Translations: [CONTACT W/AND (SUSP) EXPOS COVID-19]Onset: 94-34-3551Kjupfdjrurfm (2 sources)Preprocedural examination bcdl24-24-9524Tibetuldxzkh (2 sources)M54.16 - Radiculopathy, lumbar regionUnclassified (4 sources)Please call the office on Saturday to schedule a follow up appointment in 2 weeks Past or Other Problems Problem ClassificationProblemDateDocumented DateEpisodic/ChronicOther circulatory disease (3 sources)Orthostatic hypotension; Translations: [Orthostatic hypotension] Onset: 34-88-3328FntowvhkFezaj lower respiratory disease (4 sources)Other nonspecific abnormal finding of lung field; Translations: [OTH NONSPECIFIC ABN FIND LNG FIELD]Onset: 61-62-4807RacxgtrbLsjkr lower respiratory disease (9 sources)Dyspnea; Translations: [Other forms of dyspnea]Onset: 06-17-2018 10-81-7662HckeakuhXnzrf nervous system disorders (3 sources)Paresthesia; Translations: [Paresthesia of skin]Onset: 02-13-2018 EpisodicOther nervous system disorders (1 source)Postoperative pain ; Translations: [Other acute postprocedural pain] 02-33-7317CvkylyjiZltxh non-traumatic joint disorders (1 source)Pain in left hip; Translations: [PAIN IN LEFT HIP]Onset: 04-21-2021 EpisodicResidual codes; unclassified (6 sources)Tobacco userOnset: [id number] (1 source)LOW BACK PAIN, UNSPECIFIED; Translations: [LOW BACK PAIN, UNSPECIFIED] Onset: 09-26-2021 Results Test NameValueInterpretationReference RangeFacilityReminderson 12-15-2024 RemindersReminders From: Radha Dominguez To: Radha Dominguez; Ramonita [...] me. I place a reminder for November. Patient just had back surgery she will call us back when she is healed from that to schedule. I didtell her if it was after March she would have to be seen in the office again.[facility] Metabolic Panelon 09-24-4258Uvxzl gap [Moles/Vol]9.6 mmol/LNormal6.0-15.0The [facility] Physician GroupComment on above:Performed By: #### PTT, BMP, PT, CBC #### [place] [address] USACalcium [Mass/Vol]8.2 mg/dLLow8.6-10.3The [facility] Physician GroupComment on above:Performed By: #### PTT, BMP, PT, CBC #### [place] [address] USAChloride [Moles/Vol]103 mmol/XAfraed66-173Asz [facility] Physician GroupComment on above:Performed By: #### PTT, BMP, PT, CBC #### [place] [address] USACO2 [Moles/Vol]26.9 mmol/BZwvvjm75.0-31.0The [facility] Physician GroupComment on above:Performed By: #### PTT, BMP, PT, CBC #### [place] [address] USACreatinine [Mass/Vol]0.45 mg/dLLow0.60-1.20The [facility] Physician GroupComment on above:Performed By: #### PTT, BMP, PT, CBC #### [place] [address] USACreatinine Clr Calc Oalslepa70.10NormalThe [facility] Physician GroupComment on above:Result Comment: PERFORMED BY: [place] [address] PATHOLOGIST FRONT END DEVELOPER MEGAN BENDER M.D.Performed By: #### PTT, BMP, PT, CBC #### [place] [address] USAGFR/1.73 sq M.predicted MDRD (S/P/Bld) [Vol rate/Area] mL/min/{1.73_m2}NormalThe [facility] Physician GroupComment on above:Performed By: #### PTT, BMP, PT, CBC #### [place] [address] USAGlucose [Mass/Vol]127 mg/kCBitm43-656Jun [facility] Physician GroupComment on above:Result Comment: Random Glucose Reference Range is dependent on time and content of last meal. Glucose of more than 200 mg/dL in a nonstressed, ambulatory subject supports the diagnosis of Diabetes Mellitus. ADA recommended reference rangePerformed By: #### PTT, BMP, PT, CBC #### [place] [address] USAPotassium [Moles/Vol]3.5 mmol/LNormal3.5-5.1The [facility] Physician GroupComment on above:Performed By: #### PTT, BMP, PT, CBC #### [place] [address] USASodium [Moles/Vol]136 mmol/LTkxqgp934-835Ftt [facility] Physician GroupComment on above:Performed By: #### PTT, BMP, PT, CBC #### [place] [address] USAUrea nitrogen [Mass/Vol]7 mg/dLNormal7-25The [facility] Physician GroupComment on above:Performed By: #### PTT, BMP, PT, CBC #### [place] [address] USAComplete Blood Count Auto Diffon 63-40-3394Qugtvnjvx (Bld) [#/Vol]0.1 10*3/uLNormal0.0-0.2The [facility] Physician GroupComment on above: Result Comment: PERFORMED BY: [place] [address] PATHOLOGIST FRONT END DEVELOPER MEGAN BENDER M.D.Performed By: #### PTT, BMP, PT, CBC #### [place] [address] USABasophils/100 WBC (Bld)0.8 %Normal.The [facility] Physician GroupComment on above:Performed By: #### PTT, BMP, PT, CBC #### [place] [address] USAEosinophils (Bld) [#/Vol]0.0 10*3/uLNormal0.0-0.45The [facility] Physician GroupComment on above:Performed By: #### PTT, BMP, PT, CBC #### [place] [address] USAEosinophils/100 WBC (Bld)0.2 %Normal.The [facility] Physician GroupComment on above:Performed By: #### PTT, BMP, PT, CBC #### [place] [address] USAErythrocyte distribution width (RBC) [Ratio]15.1 %Normal 11.9-15.3The [facility] Physician GroupComment on above:Performed By: #### PTT, BMP, PT, CBC #### [place] [address] USAHematocrit (Bld) [Volume fraction]24.2 %Low34.0-46.4The [facility] Physician GroupComment on above:Performed By: #### PTT, BMP, PT, CBC #### [place] [address] USAHemoglobin (Bld) [Mass/Vol]8.1 g/dLLow11.8-15.4The [facility] Physician GroupComment on above:Performed By: #### PTT, BMP, PT, CBC #### [place] [address] USALymphocytes (Bld) [#/Vol]1.1 10*3/uLNormal1.00-4.8The [facility] Physician GroupComment on above:Performed By: #### PTT, BMP, PT, CBC #### [place] [address] USALymphocytes/100 WBC (Bld)12.7 %Normal.The [facility] Physician GroupComment on above:Performed By: #### PTT, BMP, PT, CBC #### [place] [address] USAMCH (RBC) [Entitic mass]30.8 tyJmklqe54.7-34.3The [facility] Physician GroupComment on above:Performed By: #### PTT, BMP, PT, CBC #### [place] [address] USAMCV (RBC) [Entitic vol]91.6 tPBxqssw09-408Bsf [facility] GroupComment on above:Performed By: #### PTT, BMP, PT, CBC #### [place] [address] USAMean Corpuscular HGB Conc33.7 g/kEXqkboi09.0-35.0The [facility] Physician GroupComment on above:Performed By: #### PTT, BMP, PT, CBC #### [place] [address] USAMonocytes (Bld) [#/Vol]0.9 10*3/uLHigh0.0-0.8The [facility] Physician GroupComment on above:Performed By: #### PTT, BMP, PT, CBC #### [place] [address] USAMonocytes/100 WBC (Bld)10.4 %Normal.The [facility] Physician GroupComment on above:Performed By: #### PTT, BMP, PT, CBC #### [place] [address] USANeutrophils (Bld) [#/Vol]6.5 10*3/uLNormal1.8-7.7The [facility] Physician GroupComment on above:Performed By: #### PTT, BMP, PT, CBC #### [place] [address] USANeutrophils/100 WBC (Bld)75.9 %Normal.The [facility] Physician GroupComment on above:Performed By: #### PTT, BMP, PT, CBC #### [place] [address] USANRBC%0.0 /100{WBC}Normal0-0.5The [facility] Comment on above:Performed By: #### PTT, BMP, PT, CBC #### [place] [address] USAPlatelet mean volume (Bld) [Entitic vol]8.2 fLNormal 6.3-10.7The [facility] Physician GroupComment on above:Performed By: #### PTT, BMP, PT, CBC #### [place] [address] USAPlatelets (Bld) [#/Vol]178 10*3/mARcwuaq223-511Rvf [facility] GroupComment on above:Performed By: #### PTT, BMP, PT, CBC #### [place] [address] USARBC (Bld) [#/Vol]2.64 10*6/uLLow3.60-5.00The [facility] Physician GroupComment on above:Performed By: #### PTT, BMP, PT, CBC #### [place] [address] USAWBC (Bld) [#/Vol]8.6 10*3/uLNormal3.8-11.6The [facility] Physician GroupComment on above:Performed By: #### PTT, BMP, PT, CBC #### [place] [address] USAWhite Blood Count8.6 [CFU]/mLNormal3.8-11.6The [facility] Physician GroupComment on above:Performed By: #### PTT, BMP, PT, CBC #### [place] [address] USABasic Metabolic Panelon 35-69-1798Qptzy gap [Moles/Vol]8.7 mmol/LNormal6.0-15.0The [facility] Physician GroupComment on above:Performed By: #### PTT, BMP, PT, CBC #### [place] [address] USACalcium [Mass/Vol]8.2 mg/dLLow8.6-10.3The [facility] Physician GroupComment on above:Performed By: #### PTT, BMP, PT, CBC #### [facility] [address] [place] [address] USAChloride [Moles/Vol]104 mmol/UIqecon75-389Hri [facility] Physician GroupComment on above:Performed By: #### PTT, BMP, PT, CBC #### [facility] [address] [place] [address] USACO2 [Moles/Vol]26.1 mmol/XJrmrtb05.0-31.0The [facility] Physician GroupComment on above:Performed By: #### PTT, BMP, PT, CBC #### [facility] [address] [place] [address] USACreatinine [Mass/Vol]0.54 mg/dLLow0.60-1.20The [facility] Physician GroupComment on above:Performed By: #### PTT, BMP, PT, CBC #### [place] [address] USACreatinine Clr Calc Ghkayatk41.10NormalThe [facility] Physician GroupComment on above:Result Comment: PERFORMED BY: [place] [address] PATHOLOGIST FRONT END DEVELOPER MEGAN BENDER M.D.Performed By: #### PTT, BMP, PT, CBC #### [place] [address] USAGFR/1.73 sq M.predicted MDRD (S/P/Bld) [Vol rate/Area] mL/min/{1.73_m2}NormalThe [facility] Physician GroupComment on above:Performed By: #### PTT, BMP, PT, CBC #### [place] [address] USAGlucose [Mass/Vol]154 mg/aPSade34-612Yjp [facility] Physician GroupComment on above:Result Comment: Random Glucose Reference Range is dependent on time and content of last meal. Glucose of more than 200 mg/dL in a nonstressed, ambulatory subject supports the diagnosis of Diabetes Mellitus. ADA recommended reference rangePerformed By: #### PTT, BMP, PT, CBC #### [place] [id number] USAPotassium [Moles/Vol]3.8 mmol/LNormal3.5-5.1The [facility] Physician GroupComment on above:Performed By: #### PTT, BMP, PT, CBC #### [place] [address] USASodium [Moles/Vol]135 mmol/QFln881-968Hih [facility] Physician GroupComment on above:Performed By: #### PTT, BMP, PT, CBC #### [place] [address] USAUrea nitrogen [Mass/Vol]8 mg/dLNormal7-25The [facility] Physician GroupComment on above:Performed By: #### PTT, BMP, PT, CBC #### [place] [address] USAComplete Blood Count Auto Diffon 23-62-5143Cxatsmfmk (Bld) [#/Vol]0.1 10*3/uLNormal0.0-0.2The [facility] Physician GroupComment on above: Result Comment: PERFORMED BY: [place] [address] PATHOLOGIST FRONT END DEVELOPER MEGAN BENDER M.D.Performed By: #### PTT, BMP, PT, CBC #### [place] [address] USABasophils/100 WBC (Bld)0.5 %Normal.The [facility] Physician GroupComment on above:Performed By: #### PTT, BMP, PT, CBC #### [place] [address] USAEosinophils (Bld) [#/Vol]0.0 10*3/uLNormal0.0-0.45The [facility] Physician GroupComment on above:Performed By: #### PTT, BMP, PT, CBC #### [place] [address] USAEosinophils/100 WBC (Bld)0.2 %Normal.The [facility] Physician GroupComment on above:Performed By: #### PTT, BMP, PT, CBC #### [place] [address] USAErythrocyte distribution width (RBC) [Ratio]14.8 %Normal 11.9-15.3The [facility] Physician GroupComment on above:Performed By: #### PTT, BMP, PT, CBC #### [place] [address] USAHematocrit (Bld) [Volume fraction]23.6 %Low34.0-46.4The [facility] Physician GroupComment on above:Performed By: #### PTT, BMP, PT, CBC #### [place] [address] USAHemoglobin (Bld) [Mass/Vol]7.9 g/dLLow11.8-15.4The [facility] Physician GroupComment on above:Performed By: #### PTT, BMP, PT, CBC #### [place] [address] USALymphocytes (Bld) [#/Vol]0.9 10*3/uLLow1.00-4.8The [facility] Physician GroupComment on above:Performed By: #### PTT, BMP, PT, CBC #### [place] [address] USALymphocytes/100 WBC (Bld)9.9 %Normal.The [facility] Physician GroupComment on above:Performed By: #### PTT, BMP, PT, CBC #### [place] [address] USAMCH (RBC) [Entitic mass]30.9 ndDwtbvf85.7-34.3The [facility] Physician GroupComment on above:Performed By: #### PTT, BMP, PT, CBC #### [place] [address] USAMCV (RBC) [Entitic vol]92.2 hIFjgivy97-018Hmy [facility] Physician GroupComment on above:Performed By: #### PTT, BMP, PT, CBC #### [place] [id number] USAMean Corpuscular HGB Conc33.5 g/bJJzuoii92.0-35.0The [facility] Physician GroupComment on above:Performed By: #### PTT, BMP, PT, CBC #### [place] [address] USAMonocytes (Bld) [#/Vol]0.9 10*3/uLHigh0.0-0.8The [facility] Physician GroupComment on above:Performed By: #### PTT, BMP, PT, CBC #### [place] [address] USAMonocytes/100 WBC (Bld)9.2 %Normal.The [facility] Physician GroupComment on above:Performed By: #### PTT, BMP, PT, CBC #### [place] [address] USANeutrophils (Bld) [#/Vol]7.7 10*3/uLNormal1.8-7.7The [facility] Physician GroupComment on above:Performed By: #### PTT, BMP, PT, CBC #### [place] [address] USANeutrophils/100 WBC (Bld)80.2 %Normal.The [facility] Physician GroupComment on above:Performed By: #### PTT, BMP, PT, CBC #### [place] [address] USANRBC%0.1 /100{WBC}Normal0-0.5The [facility] Comment on above:Performed By: #### PTT, BMP, PT, CBC #### [place] [address] USAPlatelet mean volume (Bld) [Entitic vol]8.6 fLNormal 6.3-10.7The [facility] Physician GroupComment on above:Performed By: #### PTT, BMP, PT, CBC #### [place] [address] USAPlatelets (Bld) [#/Vol]172 10*3/pLVtdjcd401-715Qsh [facility] GroupComment on above:Performed By: #### PTT, BMP, PT, CBC #### [facility] [address] [place] [address] USARBC (Bld) [#/Vol]2.56 10*6/uLLow3.60-5.00The [facility] Physician GroupComment on above:Performed By: #### PTT, BMP, PT, CBC #### [facility] [address] [place] [address] USAWBC (Bld) [#/Vol]9.6 10*3/uLNormal3.8-11.6The [facility] Physician GroupComment on above:Performed By: #### PTT, BMP, PT, CBC #### [place] [address] USAWhite Blood Count9.6 [CFU]/mLNormal3.8-11.6The [facility] Physician GroupComment on above:Performed By: #### PTT, BMP, PT, CBC #### [place] [address] USABasic Metabolic Panelon 29-73-5612Zenqo gap [Moles/Vol] 10.2 mmol/LNormal6.0-15.0The [facility] Physician GroupComment on above:Performed By: #### BMP, CBC #### [place] [address] USACalcium [Mass/Vol]7.9 mg/dLLow8.6-10.3The [facility] Physician GroupComment on above:Performed By: #### BMP, CBC #### [place] [address] USAChloride [Moles/Vol]105 mmol/SMpxgum46-124Vbv [facility] GroupComment on above:Performed By: #### BMP, CBC #### [place] [address] USACO2 [Moles/Vol]23.7 mmol/IWbtbfc07.0-31.0The [facility] Physician GroupComment on above:Performed By: #### BMP, CBC #### [address] [place] [address] USACreatinine [Mass/Vol]0.74 mg/dLNormal0.60-1.20The [facility] Physician GroupComment on above:Performed By: #### BMP, CBC #### [place] [address] USACreatinine Clr Calc Naozrauc28.46NormalThe [facility] Physician GroupComment on above:Result Comment: PERFORMED BY: [place] [address] PATHOLOGIST FRONT END DEVELOPER MEGAN BENDER M.D.Performed By: #### BMP, CBC #### [place] [address] USAGFR/1.73 sq M.predicted MDRD (S/P/Bld) [Vol rate/Area] mL/min/{1.73_m2}NormalThe [facility] Physician GroupComment on above:Performed By: #### BMP, CBC #### [place] [address] USAGlucose [Mass/Vol]129 mg/tEAhkt99-740Lce [facility] GroupComment on above:Result Comment: Random Glucose Reference Range is dependent on time and content of last meal. Glucose of more than 200 mg/dL in a nonstressed, ambulatory subject supports the diagnosis of Diabetes Mellitus. ADA recommended reference rangePerformed By: #### BMP, CBC #### [place] [address] USAPotassium [Moles/Vol]3.9 mmol/LNormal3.5-5.1The [facility] Physician GroupComment on above:Performed By: #### BMP, CBC #### [place] [address] USASodium [Moles/Vol]135 mmol/CTmq693-593Yma [facility] Physician GroupComment on above:Performed By: #### BMP, CBC #### [place] [address] USAUrea nitrogen [Mass/Vol]9 mg/dLNormal7-25The [facility] Physician GroupComment on above:Performed By: #### BMP, CBC #### [place] [address] USAComplete Blood Count Auto Diffon 28-94-9144Ogkxndqwm (Bld) [#/Vol]0.1 10*3/uLNormal0.0-0.2The [facility] Phys[facility] GroupComment on above: Result Comment: PERFORMED BY: [place] [address] PATHOLOGIST FRONT END DEVELOPER MEGAN BENDER M.D.Performed By: #### PTT, BMP, PT, CBC #### [place] [address] USABasophils/100 WBC (Bld)0.5 %Normal.The [facility] Physician GroupComment on above:Performed By: #### PTT, BMP, PT, CBC #### [place] [address] USAEosinophils (Bld) [#/Vol]0.0 10*3/uLNormal0.0-0.45The [facility] Physician GroupComment on above:Performed By: #### PTT, BMP, PT, CBC #### [place] [address] USAEosinophils/100 WBC (Bld)0.2 %Normal.The [facility] Physician GroupComment on above:Performed By: #### PTT, BMP, PT, CBC #### [place] [address] USAErythrocyte distribution width (RBC) [Ratio]14.7 %Normal 11.9-15.3The [facility] Physician GroupComment on above:Performed By: #### PTT, BMP, PT, CBC #### [place] [address] USAHematocrit (Bld) [Volume fraction]27.3 %Low34.0-46.4The [facility] Physician GroupComment on above:Performed By: #### PTT, BMP, PT, CBC #### [place] [address] USAHemoglobin (Bld) [Mass/Vol]9.0 g/dLLow11.8-15.4The [facility] GroupComment on above:Performed By: #### PTT, BMP, PT, CBC #### [place] [address] USALymphocytes (Bld) [#/Vol]1.2 10*3/uLNormal1.00-4.8The [facility] Physician GroupComment on above:Performed By: #### PTT, BMP, PT, CBC #### [place] [address] USALymphocytes/100 WBC (Bld)11.1 %Normal.The [facility] Physician GroupComment on above:Performed By: #### PTT, BMP, PT, CBC #### [place] [address] USAMCH (RBC) [Entitic mass]30.7 xnAleyxn95.7-34.3The [facility] GroupComment on above:Performed By: #### PTT, BMP, PT, CBC #### [place] [address] USAMCV (RBC) [Entitic vol]93.1 oKPftyny95-079Rfb [facility] GroupComment on above:Performed By: #### PTT, BMP, PT, CBC #### [place] [address] USAMean Corpuscular HGB Conc33.0 g/cHWlaprh02.0-35.0The [facility] GroupComment on above:Performed By: #### PTT, BMP, PT, CBC #### [place] [address] USAMonocytes (Bld) [#/Vol]1.2 10*3/uLHigh0.0-0.8The [facility] Phys[facility] GroupComment on above:Performed By: #### PTT, BMP, PT, CBC #### [place] [address] USAMonocytes/100 WBC (Bld)11.5 %Normal.The [facility] GroupComment on above:Performed By: #### PTT, BMP, PT, CBC #### [place] [address] USANeutrophils (Bld) [#/Vol]8.0 10*3/uLHigh1.8-7.7The [facility] GroupComment on above:Performed By: #### PTT, BMP, PT, CBC #### [place] [address] USANeutrophils/100 WBC (Bld)76.7 %Normal.The [facility] Physician GroupComment on above:Performed By: #### PTT, BMP, PT, CBC #### [place] [address] USANRBC%0.1 /100{WBC}Normal0-0.5The [facility] Comment on above:Performed By: #### PTT, BMP, PT, CBC #### [place] [address] USAPlatelet mean volume (Bld) [Entitic vol]8.6 fLNormal 6.3-10.7The [facility] GroupComment on above:Performed By: #### PTT, BMP, PT, CBC #### [place] [address] USAPlatelets (Bld) [#/Vol]196 10*3/wTTgxxrg394-161Jgs [facility] GroupComment on above:Performed By: #### PTT, BMP, PT, CBC #### [place] [address] USARBC (Bld) [#/Vol]2.93 10*6/uLLow3.60-5.00The [facility] GroupComment on above:Performed By: #### PTT, BMP, PT, CBC #### [place] [address] USAWBC (Bld) [#/Vol]10.4 10*3/uLNormal3.8-11.6The [facility] GroupComment on above:Performed By: #### PTT, BMP, PT, CBC #### [facility] [address] [place] [id number] USAWhite Blood Count10.4 [CFU]/mLNormal3.8-11.6The [facility] GroupComment on above:Performed By: #### PTT, BMP, PT, CBC #### [facility] [address] [place] [id number] USAXR lumbar spine 2-3V*on 81-63-8460PU lumbar spine 2-3V* [facility] [place] [address] [place] [address] XRay Report Signed Patient: Alexandra Cervantes MR#: [id number] 2 : 1950 Acct:[id number] Age/Sex: 74 / F ADM Date: 11/26/24 Loc: Room: [address] [place] [address] Type: ADM IN Attending Dr: Nasim Segal DO Copies to: Nasim Segal DO Ordering Provider: Nasim Segal DO Date of Service: 11/27/24 XR/XR lumbar spine 2-3V*: postop L4-S1 TLIF XR lumbar spine 2-3V* 11/27/2024 7:37 AM SIGNS AND SYMPTOMS: postop L4-S1 TLIF PROTOCOLS: 2 views of the lumbar spine COMPARISON: 04/12/1934 FINDINGS: The alignment, development and bony structures are normal. There is no fracture or destructive lesion. There is posterior and intervertebral fusion from L4 through S1 which is new when compared to the prior study. No hardware complication. Anterolisthesis is redemonstrated of L5 upon S1. This is unchanged. There is moderate disc height loss at T11-T12, T12-L1, and L1-L2. There is 6 mm of retrolisthesis of L1 upon L2. Skin mee are noted posteriorly overlying laminectomy site. The sacrum and sacroiliac joints are normal. XR/XR lumbar spine 2-3V* IMPRESSION: Posterior and intervertebral fusion is noted with posterior decompression from L4 through S1. No hardware complication. Similar degenerative changes are noted otherwise. Impression dictated by: Rad Jung M.D. 11/27/2024 8:35 AM Dictation Location: [id number] Transcribed By: [facility] 11/27/2435 Dictated By: Rad Jung II, MD 11/27/2433 Signed By: 11/27/24 0835[facility] Physician GroupXR lumbar spine 2-3V*on 40-44-3218EI lumbar spine 2-3V*[facility] Main [place] [address] [place] [address] XRay Report Signed Patient: Alexandra Cervantes MR#: [id number] 2 : 1950 Acct:[id number] Age/Sex: 74 / F ADM Date: 11/26/24 Loc: Room: [address] [place] [address] Type: ADM IN Attending Dr: Nasim Segal DO Copies to: Nasim Segal DO Ordering Provider: Nasim Segal DO Date of Service: 11/26/24 XR/XR lumbar spine 2-3V*: . Intraoperative study. Reason for exam: TLIF L4-S1 Findings: 194 images were obtained intraoperatively. Postoperative changes. Cumulative Air Kerma in mGy: 7.37 mGy XR/XR lumbar spine 2-3V* Impression: Intraoperative study. Impression dictated by: Pa Osullivan Jr., Elaine 11/26/2024 3:55 PM Dictation Location: RADIO-PC-22 Transcribed By: ERIC 11/26/24 155 Dictated By: Pa Osullivan Jr, DO 11/26/24 155 Signed By: 11/26/24 1555[facility] Physician [facility] HospitalBasic Metabolic Panelon 42-05-9216SLJ/1.73 sq M.predicted MDRD (S/P/Bld) [Vol rate/Area]mL/min/{1.73_m2} NormalThe Unc Health Nash Physician GroupComment on above:Performed By: #### PTT, BMP, PT, CBC #### [place] [address] USABasophils [#/volume] in Blood by Automated countOrdered By: Nasim Segal on 78-50-3461Fnrtcihfn (Bld) [#/Vol]0.0 10*3/uLNormal0.0-0.2 Berger HospitalComment on above:Result Comment: PERFORMED BY: [place] [address] PATHOLOGIST FRONT END DEVELOPER MEGAN BENDER M.D.Performed By: #### PTT, BMP, PT, CBC #### [facility] [address] [place] [address] USABasophils/100 leukocytes in Blood by Automated count Ordered By: Nasim Segal on 66-92-2490Ejrbwxzuz/100 WBC (Bld)0.6 %Normal. Berger HospitalComment on above:Performed By: #### PTT, BMP, PT, CBC #### [facility] [address] [place] [address] USACalcium [Mass/volume] in Serum or PlasmaOrdered By: Nasim Segal on 80-79-5704Ulzpuky [Mass/Vol]9.2 mg/dLNormal8.6-10.3FUniversity Hospitals Geauga Medical CenterComment on above:Result Comment: PERFORMED BY: [place] [address] PATHOLOGIST FRONT END DEVELOPER MEGAN BENDER M.D.Performed By: #### PTT, BMP, PT, CBC #### [facility] [address] [place], [place] [id number] USACarbon dioxide, total [Moles/volume] in Serum or Plasma Ordered By: Nasim Segal on 41-11-0362BL8 [Moles/Vol]26.7 mmol/ADpktxz75.0-31.0 Berger HospitalComment on above:Performed By: #### PTT, BMP, PT, CBC #### [facility] [address] [place] [address] USAChloride [Moles/volume] in Serum or PlasmaOrdered By: Nasim Segal on 70-12-4682Ighrcahz [Moles/Vol]100 mmol/IHngakm32-869DmsjmyjplBerger HospitalComment on above:Performed By: #### PTT, BMP, PT, CBC #### [facility] [address] [place] [address] USAComplete Blood Count Auto Diffon 20-52-3579Awvx Corpuscular HGB Conc33.6 g/vZAhsmxj27.0-35.0The [facility] Nash Physician GroupComment on above:Performed By: #### PTT, BMP, PT, CBC #### [facility] [address] [place] [address] USANRBC%0.1 /100{WBC}Normal0-0.5The [facility] Comment on above:Performed By: #### PTT, BMP, PT, CBC #### [place] [address] USAWhite Blood Count5.7 [CFU]/mLNormal3.8-11.6The [facility] Physician [place]oula HospitalComment on above:Performed By: #### PTT, BMP, PT, CBC #### [place] [address] USACreatinine [Mass/volume] in Serum or PlasmaOrdered By: Nasim Segal on 73-20-3768Lvujzfpxge [Mass/Vol]0.62 mg/dLNormal0.60-1.20 Berger HospitalComment on above:Performed By: #### PTT, BMP, PT, CBC #### [place] [address] USAECG 12 lead ECGon 04-70-4746HUX 12 lead [facility] [place] [address] [place] [address] Electrocardiograph Report Signed Patient: Alexandra Cervantes MR#: [id number] 2 : 1950 Acct:[id number] Age/Sex: 74 / F ADM Date: 11/12/24 Loc: PS Room: Type: [facility] Attending Dr: Nasim Segal DO Ordering Provider: Nasim Segal DO Date of Service: 11/12/2404/07/942 ECG/ECG 12 lead ECG: pre-op Copies to: Test Reason : Blood Pressure : */* mmHG Vent. Rate : 80 BPM Atrial Rate : 80 BPM P-R Int : 148 ms QRS Dur : 80 ms QT Int : 414 ms P-R-T Axes : 48 -32 45 degrees QTcB Int : 477 ms Normal sinus rhythm Left axis deviation Abnormal ECG When compared with ECG of 26-May-2021 13:55, QRS axis shifted left Confirmed by Larissa Chao ([id number]) on 11/13/2024 10:43:41 PM Referred By: Electronically Signed By: Larissa Chao Transcribed By: MUS Signed By Larissa Chao MD 11/13/[address] [place] [address] Physician GroupEosinophils [#/volume] in Blood by Automated countOrdered By: Nasim Segal on 91-90-7997Uesvxpbykso (Bld) [#/Vol]0.0 10*3/uLNormal0.0-0.45Berger HospitalComment on above:Performed By: #### PTT, BMP, PT, CBC #### [facility] [address] [place] [address] USAEosinophils/100 leukocytes in Blood by Automated count Ordered By: Nasim Segal on 06-03-9881Vpwnvajupma/100 WBC (Bld)0.2 %Normal. Berger HospitalComment on above:Performed By: #### PTT, BMP, PT, CBC #### [facility] [address] [place] [address] USAErythrocyte distribution width [Ratio] by Automated count Ordered By: Nasim Segal on 79-95-6047Rzkeollklve distribution width (RBC) [Ratio]14.5 %Nhbnan56.9-15.3FUniversity Hospitals Geauga Medical CenterComment on above: Performed By: #### PTT, BMP, PT, CBC #### [facility] [address] [place] [id number] USAErythrocytes [#/volume] in Blood by Automated countOrdered By: Nasim Segal on 44-44-3415LGJ (Bld) [#/Vol]4.27 10*6/uLNormal3.60-5.00 Berger HospitalComment on above:Performed By: #### PTT, BMP, PT, CBC #### [facility] [address] [place] [address] USAGlomerular filtration rate [Volume Rate/Area] in Serum, Plasma or Blood by CreatinineOrdered By: Nasim Segal on 43-64-4541Ihgwkhfzro filtration rate [Volume Rate/Area] in Serum, Plasma or Blood by Creatinine> 60.0 mL/MinBerger HospitalGlucose [Mass/volume] in Serum or Plasma Ordered By: Nasim Segal on 09-99-8902Ludlmuj [Mass/Vol]100 mg/xJPkdorw55-522 Berger HospitalComment on above:ADA recommended reference rangeRandom Glucose Reference Range is dependent on time and content of last meal. Glucose of more than 200 mg/dL in a nonstressed, ambulatory subject supports the diagnosisof Diabetes Mellitus.Result Comment: Random Glucose Reference Range is dependent on time and content of last meal. Glucose of more than 200 mg/dL in a nonstressed, ambulatory subject supports the diagnosis of Diabetes Mellitus. ADA recommended reference rangePerformed By: #### PTT, BMP, PT, CBC #### [facility] [address] [place] [address] USAHematocrit [Volume Fraction] of Blood by Automated count Ordered By: Nasim Segal on 66-44-2321Bgmzzrtcvl (Bld) [Volume fraction]39.4 % Opwdoo79.0-46.4FUniversity Hospitals Geauga Medical CenterComment on above:Performed By: #### PTT, BMP, PT, CBC #### [facility] [address] [place] [address] USAHemoglobin [Mass/volume] in BloodOrdered By: Nasim Segal on 33-75-4590Ihisnujfxz (Bld) [Mass/Vol]13.2 g/pICfrsle36.8-15.4FUniversity Hospitals Geauga Medical CenterComment on above:Performed By: #### PTT, BMP, PT, CBC #### [facility] [address] [place] [address] USAINR in Platelet poor plasma by Coagulation assayOrdered By: Nasim Segal on 94-10-0846GLD Coag (PPP) [Relative time]1.0 {INR}Normal Berger HospitalComment on above:INR Therapeutic Range A) Pre- and Peroperative OAT started two weeks before surgery. NOT HIP SURGERY: 1.5 - 2.5 HIP SURGERY: 2 - 3B) Primary and secondary prevention of venous THROMBOSIS: 2 - 3C) Active venous thrombosis, pulmonary embolismand prevention of recurrent venous thrombosis: 2 - 3D) Prevention of arterial thromboembolismincluding patients with mechanical heart valves: 3 - 4.5Result Comment: INR Therapeutic Range A) Pre- and Peroperative OAT started two weeks before surgery. NOT HIP SURGERY: 1.5 - 2.5 HIP SURGERY: 2 - 3 B) Primary and secondary prevention of venous THROMBOSIS: 2 - 3 C) Active venous thrombosis, pulmonary embolism and prevention of recurrent venous thrombosis: 2 - 3 D) Prevention of arterial thromboembolism including patients with mechanical heart valves: 3 - 4.5Performed By: #### PTT, BMP, PT, CBC #### [facility] [address] [place] [address] USALeukocytes [#/volume] corrected for nucleated erythrocytes in Blood by Automated counOrdered By: Nasim Segal on 78-38-5384QID corrected for nucl RBC Auto (Bld) [#/Vol]5.7 10*3/uL3.8-11.6FUniversity Hospitals Geauga Medical CenterLeukocytes [#/volume] in Blood by Automated countOrdered By: Nasim Segal on 20-39-6226VIV (Bld) [#/Vol]5.7 10*3/uLNormal3.8-11.6FUniversity Hospitals Geauga Medical CenterComment on above:Performed By: #### PTT, BMP, PT, CBC #### [facility] [address] [place] [address] USALymphocytes [#/volume] in Blood by Automated countOrdered By: Nasim Segal on 72-05-2206Qbmfojoxmcl (Bld) [#/Vol]1.1 10*3/uLNormal 1.00-4.8Berger HospitalComment on above:Performed By: #### PTT, BMP, PT, CBC #### [facility] [address] [place] [address] USALymphocytes/100 leukocytes in Blood by Automated count Ordered By: Nasim Segal on 99-59-6400Zxkjcsrkcom/100 WBC (Bld)18.7 %Normal. Berger HospitalComment on above:Performed By: #### PTT, BMP, PT, CBC #### [facility] [address] [Entitic mass] by Automated countOrdered By: Nasim Segal on 78-53-2607QAQ (RBC) [Entitic mass]31.0 fwWdjmsi28.7-34.3FUniversity Hospitals Geauga Medical CenterComment on above:Performed By: #### PTT, BMP, PT, CBC #### [address] Auto (RBC) [Mass/Vol]Ordered By: Nasim Segal on 12-97-2830PKIF (RBC) [Mass/Vol]33.6 g/dL32.0-35.0Sycamore Medical CenterV [Entitic volume] by Automated countOrdered By: Nasim Segal on 20-41-0743NRP (RBC) [Entitic vol]92.2 qLQoovwi51-728VpdumbtzaBerger HospitalComment on above:Performed By: #### PTT, BMP, PT, CBC #### [facility] [address] [place] [address] USAMonocytes [#/volume] in Blood by Automated countOrdered By: Nasim Segal on 35-18-6516Kzjovyqcu (Bld) [#/Vol]0.5 10*3/uLNormal0.0-0.8 Berger HospitalComment on above:Performed By: #### PTT, BMP, PT, CBC #### [facility] [address] [place] [id number] USAMonocytes/100 leukocytes in Blood by Automated count Ordered By: Nasim Segal on 75-03-6129Kxlrddkzt/100 WBC (Bld)9.0 %Normal. Berger HospitalComment on above:Performed By: #### PTT, BMP, PT, CBC #### [facility] [address] [place] [address] USANeutrophils [#/volume] in Blood by Automated countOrdered By: Nasim Segal on 33-90-4758Ypvgqocynll (Bld) [#/Vol]4.1 10*3/uLNormal1.8-7.7 Berger HospitalComment on above:Performed By: #### PTT, BMP, PT, CBC #### [facility] [address] [place] [address] USANeutrophils/100 leukocytes in Blood by Automated count Ordered By: Nasim Segal on 40-53-1971Peaiffiiazi/100 WBC (Bld)71.5 %Normal. Berger HospitalComment on above:Performed By: #### PTT, BMP, PT, CBC #### [facility] [address] [place] [address] USANo Panel InformationOrdered By: Nasim Segal on 10-04-1588Fgsbkstn Creatinine Clearance (ChemN/The Bellevue HospitalNucleated erythrocytes [Presence] in Blood by Automated countOrdered By: Nasim Segal on 16-31-3892Abcjtxeqt RBC Auto Ql (Bld)0.1 /100{WBC}0-0.5 Berger HospitalPST Type and Screenon 14-20-3930WGR and Rh group Nom (Bld)Blood group O Rh(D) positiveNormalThe [facility]ician Group Comment on above:Order Comment: Date of Surgery: [id number] Thromboplastin Timeon 65-96-0289rCHA Coag (Bld) [Time]28.7 cUtluyx13.1-36.5The [facility] Nash Physician GroupComment on above:Result Comment: A hematocrit value greater than 55% may lead to inaccurate results in coagulation testing. Patients having hematocrit values >55% require a special collection tube for coagulation studies. Please contact the laboratory at [phone] for redraw instructions. PERFORMED BY: [place] [address] PATHOLOGIST FRONT END DEVELOPER MEGAN S YULIA M.D.Performed By: #### PTT, BMP, PT, CBC #### [facility] [address] [place] [address] USAPlatelet mean volume [Entitic volume] in Blood by Automated countOrdered By: Nasim Segal on 00-90-8559Ifbyhaeu mean volume (Bld) [Entitic vol]8.2 fLNormal6.3-10.7FUniversity Hospitals Geauga Medical CenterComment on above:Performed By: #### PTT, BMP, PT, CBC #### [facility] [address] [place] [address] USAPlatelets [#/volume] in Blood by Automated countOrdered By: Nasim Segal on 16-44-1577Nhwpbiifq (Bld) [#/Vol]244 10*3/dAIpgqiw875-998 Berger HospitalComment on above:Performed By: #### PTT, BMP, PT, CBC #### [place] [address] USAPotassium [Moles/volume] in Serum or PlasmaOrdered By: Nasim Segal on 91-60-5610Jxhqduaxl [Moles/Vol]4.0 mmol/LNormal3.5-5.1FUniversity Hospitals Geauga Medical CenterComment on above:Performed By: #### PTT, BMP, PT, CBC #### [place] [address] USAProthrombin time (PT)Ordered By: Nasim Segal on 70-32-6573ZT Coag (PPP) [Time]11.5 sNormal9.0-12.9Berger HospitalComment on above:A hematocrit value greater than 55% may lead to inaccurate results in coagulation testing. Patientshaving hematocrit values >55% require a special collection tube for coagulation studies. Please contact the laboratory at [phone] for redraw instructions.Result Comment: A hematocrit value greater than 55% may lead to inaccurate results in coagulation testing. Patients having hematocrit values >55% require a special collection tube for coagulation studies. Please contact the laboratory at [phone] for redraw instructions.Performed By: #### PTT, BMP, PT, CBC #### [facility] [address] [place] [address] USASerum or plasma anion gap determinationOrdered By: Nasim Segal on 19-99-8772Kyhqo gap [Moles/Vol]12.3 mmol/LNormal6.0-15.0Berger HospitalComment on above:Performed By: #### PTT, BMP, PT, CBC #### [facility] [address] [place] [address] USASodium [Moles/volume] in Serum or PlasmaOrdered By: Nasim Segal on 69-60-6651Izwrxm [Moles/Vol]135 mmol/RRdc510-338NtxzpkrzcBerger HospitalComment on above:Performed By: #### PTT, BMP, PT, CBC #### [facility] [address] [place] [address] USAUrea nitrogen [Mass/volume] in Serum or PlasmaOrdered By: Nasim Segal on 94-72-0891Nvmc nitrogen [Mass/Vol]8 mg/dLNormal7-25Berger HospitalComment on above:Performed By: #### PTT, BMP, PT, CBC #### [facility] [address] [place] [address] USAaPTT in Platelet poor plasma by Coagulation assayOrdered By: Nasim Segal on 58-55-0712sLFV Coag (PPP) [Time]28.7 s25.1-36.5FUniversity Hospitals Geauga Medical CenterComment on above:A hematocrit value greater than 55% may lead to inaccurate results in coagulation testing. Patientshaving hematocrit values >55% require a special collection tube for coagulation studies. Please c ontact the laboratory at [phone] for redraw instructions.Basophils Auto (Bld) [#/Vol]Ordered By: Laurita Morales on 77-34-8176Tckwdgeaa (Bld) [#/Vol]0.0 10 3/uL0.0-0.1FUniversity Hospitals Geauga Medical CenterBasophils/100 WBC Auto (Bld)Ordered By: Laurita Morales on 88-55-0779Olctkokym/100 WBC (Bld)0.6 %0.2-2.0Berger HospitalCholesterol in LDL Calc [Mass/Vol]Ordered By: Laurita Morales on 15-31-6861Iiaogpgqzvy in LDL [Mass/Vol]146.0 mg/dLBerger HospitalComment on above:<100 mg/dl BYWWUPY842-786 mg/dl NEAR OR ABOVE RPVTHOL654-658 mg/dl BORDERLINE VGKW949-458 mg/dl HIGH>190 mg/dl VERY HIGH Cholesterol in VLDL Calc [Mass/Vol]Ordered By: Laurita Morales on 10-20-2024 Cholesterol in VLDL [Mass/Vol]25.8 mg/dLBerger Hospital Eosinophils/100 WBC Auto (Bld)Ordered By: Laurita Morales on 10-20-2024 Eosinophils/100 WBC (Bld)0.3 %Low0.9-7.0[facility] Erythrocyte distribution width Auto (RBC) [Ratio]Ordered By: Laurita Morales on 91-91-1767Bariilrgbgw distribution width (RBC) [Ratio]14.0 %11.0-15.0Berger HospitalGlobulin Calc (S) [Mass/Vol]Ordered By: Laurita Morales on 61-50-9050Okpdkxku (S) [Mass/Vol]3.9 g/dLBerger Hospital Glomerular filtration rate (GFR) estimation in non- AmericanOrdered By: Laurita Morales on 37-13-3436SQS/1.73 sq M.predicted among non-blacks MDRD (S/P/Bld) [Vol rate/Area]mL/min/{1.73_m2}>=60 mL/min/1.73m 2FUniversity Hospitals Geauga Medical CenterHematocrit Auto (Bld) [Volume fraction]Ordered By: Laurita Morales on 24-31-1625Qqwkixlmqh (Bld) [Volume fraction]40.0 %36.0-48.0Berger HospitalHemoglobin [Mass/volume] in BloodOrdered By: Laurita Morales on 12-95-5840Uszzumhibr (Bld) [Mass/Vol]13.0 g/dL12.0-16.0Berger HospitalLaboratory - Chemistry and Chemistry - challengeOrdered By: Laurita Morales on 72-02-5561Xivuthp [Mass/Vol]4.2 g/dL3.4-5.0Berger HospitalALP [Catalytic activity/Vol]82 U/L51-993UyqoniupcBerger Hospital ALT [Catalytic activity/Vol]27 U/O13-91FvhfpnyzaBerger HospitalAST [Catalytic activity/Vol]24 U/J65-90ZjolajviiBerger HospitalBilirubin [Mass/Vol]0.6 mg/dL0.2-1.0Berger HospitalCalcium [Mass/Vol]9.4 mg/dL8.5-10.1FUniversity Hospitals Geauga Medical CenterChloride [Moles/Vol]101 mmol/L 98-107Berger HospitalCholesterol [Mass/Vol]249 mg/dLHigh<=200 Berger HospitalCholesterol in HDL [Mass/Vol]78 mg/bMEbcx02-66 Berger HospitalComment on above:> or =60 mg/dl - LOW CARDIOVASCULAR RISK<40 mg/dl - HIGH CARDIOVASCULAR RISKCO2 [Moles/Vol]25.2 mmol/L21.0-32.0Berger HospitalCreatinine [Mass/Vol]0.70 mg/dL 0.55-1.02Berger HospitalFree T4 [Mass/Vol]1.16 ng/dL0.76-1.46 Berger HospitalGFR/1.73 sq M.predicted MDRD (S/P/Bld) [Vol rate/Area]mL/min/{1.73_m2}>=60 mL/min/1.73m 2FUniversity Hospitals Geauga Medical Center Glucose [Mass/Vol]113 mg/vRMbpd03-900RyrgqqkxkBerger HospitalPotassium [Moles/Vol]4.3 mmol/L3.5-5.1FUniversity Hospitals Geauga Medical CenterProtein [Mass/Vol] 8.1 g/dL6.4-8.2FSelect Medical Specialty Hospital - Southeast Ohioodium [Moles/Vol]137 mmol/L 136-145Berger HospitalTriglyceride [Mass/Vol]129 mg/dL<=150 Berger HospitalTSH Qn4.153 m[IU]/LHigh0.358-3.740Berger HospitalUrea nitrogen [Mass/Vol]11.0 mg/dL7.0-18.0Berger HospitalUrea nitrogen/Creatinine [Mass ratio]15.7 mg/mgBerger HospitalLaboratory - Hematology and Cell countsOrdered By: Laurita Morales on 11-51-0696Glbiguth granulocytes/100 WBC (Bld)0.2 %0.0-0.5FUniversity Hospitals Geauga Medical CenterLeukocytes [#/volume] corrected for nucleated erythrocytes in Blood by Automated counOrdered By: Laurita Morales on 83-60-7930WXB corrected for nucl RBC Auto (Bld) [#/Vol]6.5 10 3/uL4.0-11.0Berger HospitalLymphocytes Auto (Bld) [#/Vol]Ordered By: Laurita Morales on 44-35-6889Chugktoporf (Bld) [#/Vol]1.1 10 3/uLLow1.2-3.8Berger HospitalLymphocytes/100 WBC Auto (Bld)Ordered By: Laurita Morales on 05-35-1649Rzlzjahjfxr/100 WBC (Bld)16.9 %Low20.5-60.0[facility] Auto (RBC) [Entitic mass]Ordered By: Laurita Morales on 54-76-3841BPP (RBC) [Entitic mass]30.7 pg26.7-34.0[facility] Medical CenterHC Auto (RBC) [Mass/Vol]Ordered By: Laurita Morales on 17-29-5007NGQX (RBC) [Mass/Vol]32.5 g/dL29.9-35.2FUniversity Hospitals Geauga Medical CenterMCV Auto (RBC) [Entitic vol] Ordered By: Laurita Morales on 11-87-3560WMC (RBC) [Entitic vol]94.6 fL81.0-99.0 Berger HospitalMonocytes Auto (Bld) [#/Vol]Ordered By: Laurita Morales on 83-17-4566Xgrfatcbf (Bld) [#/Vol]0.7 10 3/uL0.3-0.8Berger HospitalMonocytes/100 WBC Auto (Bld)Ordered By: Laurita Morales on 10-20-2024 Monocytes/100 WBC (Bld)11.2 %1.7-12.0[facility] Neutrophils Auto (Bld) [#/Vol]Ordered By: Laurita Morales on 81-47-7351Ggpkhflpbym (Bld) [#/Vol]4.6 10 3/uL1.4-6.5FUniversity Hospitals Geauga Medical CenterNeutrophils/100 WBC Auto (Bld)Ordered By: Laurita Morales on 99-60-3836Kmekmiwdqey/100 WBC (Bld) 70.8 %43.0-75.0Berger HospitalNo Panel InformationOrdered By: Laurita Morales on 26-08-4210Cwrpzrqfyoo # (Auto)0.0 10 3/uL0.0-0.7FUniversity Hospitals Geauga Medical CenterImmature Granulocyte # (Auto)0.01 10 3/uL0.00-0.03 Berger HospitalPlatelet mean volume Auto (Bld) [Entitic vol] Ordered By: Laurita Morales on 94-73-8967Xwqddzme mean volume (Bld) [Entitic vol] 9.9 fL9.5-13.5FUniversity Hospitals Geauga Medical CenterPlatelets Auto (Bld) [#/Vol] Ordered By: Laurita Morales on 22-53-6918Jxzfbtbxf (Bld) [#/Vol]243 10 3/zM764-635 Berger HospitalRBC Auto (Bld) [#/Vol]Ordered By: Laurita Morales on 22-32-5758DOY (Bld) [#/Vol]4.23 10 6/uL4.20-5.40K[facility]tering Health Main Campuserum or plasma albumin/globulin mass ratioOrdered By: Laurita Morales on 46-24-7926Adslfik/Globulin [Mass ratio]1.1 {ratio}[facility] Health Main Campuserum or plasma anion gap determinationOrdered By: Laurita Morales on 39-26-5980Wrbav gap [Moles/Vol]15.1 mmol/LFSelect Medical Specialty Hospital - Southeast Ohioerum or plasma total cholesterol/high density lipoprotein (HDL) cholesterol mass rat Ordered By: Laurita Morales on 44-30-4990Qfeyqufazbv.total/Cholesterol in HDL [Mass ratio]3.2 {ratio}Berger HospitalComment on above:3.3 - 4.4 LOW RISK4.4 - 7.1 AVERAGE RISK7.1 - 11.0 MODERATE RISK>11.0 HIGH RISKALL BASIC METABOLIC PANELon 64-98-2094Syhai gap [Moles/Vol]8 mmol/LNOMS HealthcareCalcium [Mass/Vol]9.4 mg/dL8.5 - 10.1 mg/dLNOMS HealthcareChloride [Moles/Vol]103 mmol/L 98 - 107 mmol/LNOMS HealthcareCO2 [Moles/Vol]30.4 mmol/L21.0 - 32.0 mmol/LNOMS HealthcareCreatinine [Mass/Vol]0.75 mg/dL0.55 - 1.02 mg/dLNOMercy Hospital Joplin GFR/1.73 sq M.predicted CKD-EPI (S/P/Bld) [Vol rate/Area]>60>=60 mL/min/1.73m 2 NOMS HealthcareGlucose [Mass/Vol]91 mg/dL74 - 106 mg/dLNONY HealthcarePotassium [Moles/Vol]4.4 mmol/L3.5 - 5.1 mmol/LNOMS HealthcareSodium [Moles/Vol]137 mmol/L 136 - 145 mmol/LNOMS HealthcareTBH EGFR-NON AF [place] ISLANDER>60>=60 mL/min/1.73m 2 NOMS HealthcareUrea nitrogen [Mass/Vol]11 mg/dL7.0 - 18.0 mg/dLNOMercy Hospital Joplin Urea nitrogen/Creatinine [Mass ratio]14.7 mg/mgNOMS HealthcareCLINISYNCNOMS HealthcareXR Knee - left 1 or 2 Viewson 71-02-8153Vegxgqy Result: X-rays AP and lateral of left [...] visualized appeared to be adequately ossified. [facility]oirRadiology Study observation (narrative)[facility] CareGastroenterology Office/Clinic Noteon 41-64-0604Xdadhtxzgnhhzdbe Office/Clinic NoteGastroenterology Office/Clinic Note Chief Complaint Checkup HPI Staff [...] fL (01/15/24) Chloride: 100 mmol/L Low (01/15/24) Brule Absolute: 1.1 E9/L High (01/15/24) CO2: 23 mmol/L (01/15/24) [place] Auto: 10.6 % (01/15/24) Creatinine: 0.6 mg/dL [...] > 30 years, pereira (more content not included)...[facility] MetroHealth SystemComment on above:Result Comment: Electronically Signed By: Deepti ALARCON, Martin Khan\.br\Date and Time Signed: 03/20/24 11:30 EST\.br\Electronically Co-Signed By: Jacquie Gauthier MA\.br\Date and Time Co- Signed: 03/20/24 11:29 ESTAmbulatory Visit Summaryon 22-47-0084Ttcfersoyh Visit SummaryAmbulatory Visit Summary ALEXANDRA CERVANTES :1950 Visit Date:01/30/2024 Ambulatory Visit Instructions Your Diagnosis Chronic pancolonic ulcerative colitis Chronic diarrhea Gastroesophageal reflux disease Your Care Team Attending Physician - Deepti ALARCON, Martin Khan Primary Care Physician - LAURITA MORALES MD [...] EDT With: Deepti ALARCON, Martin Khan Where: [facility] [address] [place] [phone]- You Need to Complete the Following Calprotectin, [...] (Ocuvite Adult 50+) Contact prescribing physician if questionsor concerns Unchanged omeprazole By Mouth Every day Contact prescribing physician if questions or concerns Unchanged predniSONE (predniSONE 5 mg Tab) See instructions Start with 40mg x1 week and decrease by5mg every week until finished Contact prescribing physician [...] you for choosing us for your care. [facility] SystemGastroenterology Office/Clinic Noteon 62-90-5604Mbflwhqwsahgkysm Office/Clinic NoteGastroenterology Office/Clinic Note Chief Complaint EGD and colonoscopy resutls. [facility] Staff Patient is a(n) 73 year old [...] immune for h (more content not included)... NormalFisher Burt Medical CenterComment on above:Result Comment: Electronically Signed By: Deepti ALARCON, Martin Khan\.br\Date and Time Signed: 01/30/24 14:13 ESTSurgical Pathology Reporton [id number] Pathology ReportMary Rutan Hospital [address] [place] [address]- Surgical Pathology Report Collected Date/Time: 01/15/2024 12:33 [...] is entirely submitted in one cassette. (DC) DC:[facility] Microscopic Description Microscopic examination performed unless gross only specified. The use of one or more reagents in the above tests is regulated as an analyte specific reagent (ASR). The test or tests are ordered following initial H&E microscopic examination. The performance characteristics were determined by the Laboratory of [facility]. They have not been cleared or approved by the US Food and Drug Administration. The FDA has determined that such clearance or approval is not necessary. These tests are used for clinical purposes. They should not be regarded as investigational or for research. Appropriate positive and negative controls are performed and are acceptable. The Metro[facility] SystemComment on above:Performed By: #### [id number] #### [facility] [address], [place] [address]Qtyxucfszio-VO Plus (Client Incubated)on 25-91-9935Ivrpx interferon background IA Qn (Bld)0.02 International_Unit/mLInvalid Interpretation [facility] HospitalComment on above:Performed By: #### [id number] #### [facility] [address], [place] [address]M. tuberculosis stim IFN-g by CD4+ CD8+ T-cells corrected for background Qn (Bld)0.05 International_Unit/mLInvalid Interpretation [facility] HospitalComment on above:Performed By: #### [id number] #### [facility] [address], [place] [address]E. tuberculosis stim IFN-g by CD4+ T-cells corrected for background Qn (Bld)0.02 International_Unit/mLInvalid Interpretation CodeMercy HospitalComment on above:Performed By: #### [id number] #### [facility] [address] [place] [address]T. tuberculosis stim IFN-g Ql (Bld) [Interp]NegativeInvalid Interpretation CodeNegativeMercy HospitalComment on above:Result Comment: No response to M tuberculosis antigens detected. Infection with [...] interferon gamma. Chemiluminescence immunoassay methodology Performed at: [facility] [id number] PhD Kirk Stuartformed By: #### [id number] #### [facility] [address] [place] [address]Xgiqufd stimulated gamma interferon corrected for background Qn (Bld)>10.00Invalid Interpretation [facility] HospitalComment on above:Performed By: #### [id number] #### [facility] [address] [place] [address]Mqtkqmg comment (Unsp spec) [Interp]CommentInvalid Interpretation CodeMercy HospitalComment on above:Result Comment: QuantiFERON-TB Gold Plus is a qualitative indirect test for M tuberculosis infection (including disease) and is intended for use in conjunction with risk assessment, radiography, and other medical and diagnostic evaluations. The QuantiFERON-TB Gold Plus result is determined by subtracting the Nil value from either TB antigen (Ag) value. The Mitogen tube serves as a control for the test.Performed By: #### [id number] #### [facility] [address] [place], [place] [address]Gptnwrq Panel by PCRon [id number] Panel by PCRShiga Tox Interp Negative for Shiga Toxin producing E. coliNormalFisher [facility] CHEMISTRYOrdered By: SYSTEM SYSTEM on 06-81-4971Vqtehvq [Mass/Vol]3.7 g/dLNormal 3.3 - 5.0 gm/dLRemisol ChemAlbumin/Globulin [Mass ratio]1.0 {ratio}Low1.1 - 2.2 Remisol ChemALP [Catalytic activity/Vol]84 [iU]/qMtpodu50 - 98 Int._Unit/L Remisol ChemALT No additional P-5'-P [Catalytic activity/Vol]15 [iU]/dNormal6 - 46 Int._Unit/LRemisol ChemAnion gap [Moles/Vol]15 mmol/LNormal6 - 16 mEq/L Remisol ChemAST [Catalytic activity/Vol]14 [iU]/dNormal5 - 43 Int._Unit/LRemisol ChemBilirubin [Mass/Vol]0.7 mg/dLNormal0.0 - 1.1 mg/dLRemisol ChemCalcium [Mass/Vol]9.2 mg/dLNormal8.9 - 11.1 mg/dLRemisol ChemChloride [Moles/Vol]100 mmol/OVkh914 - 111 mmol/LRemisol ChemCO2 [Moles/Vol]23 mmol/ZDwwybl64 - 31 mmol/LRemisol ChemCreatinine [Mass/Vol]0.6 mg/dLNormal0.5 - 1.3 mg/dLRemisol ChemCRP [Mass/Vol]6.0 mg/dLHigh<=1.9mg/dLRemisol QrkbnGDN76 mL/min/1.73 i3Bihxwl >=59mL/min/1.73 a3Icaunlf ChemGlobulin (S) [Mass/Vol]3.7 g/dLNormal1.4 - 4.0 gm/dLRemisol ChemGlucose [Mass/Vol]91 mg/yQIzmfyb84 - 199 mg/dLRemisol Chem Potassium [Moles/Vol]3.5 mmol/LNormal3.5 - 5.3 mmol/LRemisol ChemProtein [Mass/Vol]7.4 g/dLNormal6.0 - 7.8 gm/dLRemisol ChemSodium [Moles/Vol]134 mmol/L Uom344 - 145 mmol/LRemisol ChemUrea nitrogen [Mass/Vol]7 mg/dLNormal5 - 21 mg/dL Remisol ChemUrea nitrogen/Creatinine [Mass ratio]12 mg/bvJgbfwb68 - 20Remisol ChemHEMATOLOGYOrdered By: Fabian Silva on 05-30-7009Abfbfqbtz/100 WBC (Bld)0.5 % Normal0.0 - 2.0 %Remisol HemeBasophils/Leukocytes Auto (Bld) [Pure # fraction] 0.1 E9/LNormal0.0 - 0.2 E9/LRemisol HemeEosinophils (Bld) [#/Vol]0.1 E9/LNormal 0.0 - 0.5 E9/LRemisol HemeEosinophils/100 WBC (Bld)0.7 %Normal0.0 - 8.0 %Remisol HemeErythrocyte distribution width (RBC) [Ratio]18.3 %High10.9 - 14.2 %Remisol HemeHematocrit (Bld) [Volume fraction]36.7 %Rujtil92.0 - 46.0 %Remisol Heme Hemoglobin (Bld) [Mass/Vol]12.6 g/hMNesyxg43.0 - 16.0 gm/dLRemisol Heme Lymphocytes (Bld) [#/Vol]1.1 E9/LNormal1.0 - 4.0 E9/LRemisol HemeLymphocytes/100 WBC (Bld)11.0 %Low14.0 - 50.0 %Remisol HemeMCH (RBC) [Entitic mass]29.3 pg Wvgfxz53.0 - 34.0 pgRemisol HemeMCHC (RBC) [Mass/Vol]34.3 g/lTSfuljw07.4 - 36.0 gm/dLRemisol HemeMCV (RBC) [Entitic vol]85.6 yRWvmmhf83.0 - 100.0 fLRemisol Heme Monocytes (Bld) [#/Vol]1.1 E9/LHigh0.2 - 1.0 E9/LRemisol HemeMonocytes/100 WBC (Bld)10.6 %Normal4.0 - 14.0 %Remisol HemeNeutrophils (Bld) [#/Vol]7.7 E9/LHigh 2.0 - 7.5 E9/LRemisol HemeNeutrophils/100 WBC (Bld)77.2 %High36.0 - 75.0 % Remisol HemePlatelet mean volume (Bld) [Entitic vol]7.5 fLNormal6.4 - 10.8 fL Remisol HemePlatelets (Bld) [#/Vol]324.0 E9/QLofpql484.0 - 500.0 E9/LRemisol HemeRBC (Bld) [#/Vol]4.3 E12/LNormal4.3 - 5.9 E12/LRemisol HemeWBC corrected for nucl RBC Auto (Bld) [#/Vol]10.0 E9/LNormal4.0 - 11.0 E9/LRemisol HemeC. diff by PCRon 12-06-2023. diff by PCRClostridium difficile by PCR Specimen Negative for toxigenic C. difficile by DNA amplification. Duplicate specimens will not be accepted on this patient for the next 7 days. Published data on thesensitivity of molecular assays suggest there is no diagnostic value in repeat testing of samples in close time sequence.Normal NegativeMercy HospitalComment on above:Result Comment: This test result should be correlated with clinical presentations and medical history by a healthcare provider to determine its clinical significance.\.br\.br\Other Comment: Order added by Discern Expert.Clostridium difficile by PCRNegative NormalNegativeMercy HospitalComment on above:Order Comment: Order added by Discern Expert.Result Comment: This test result should be correlated with clinical presentations and medical history by a healthcare provider to determine its clinical significance.Performed By: #### [id number] #### [facility] [address] [place] [id number] PCRon 12-06-2023. difficile toxin A+B Ql (Stl)No, PCR to followNormalMercy HospitalComment on above:Performed By: #### [id number] #### [facility] [address], [place] [address]DSjsj PCROrder Cancelled Specimen has been found to be acceptable for C. difficile testing.The [facility] SystemEnteric Panel by PCRon 12-06-2023. coli+jejuni+upsaliensis DNA ADELITA+non-probe Ql (Stl)Not detectedNoGalion Community HospitalComment on above:Result Comment: Testing was performed utilizing reverse electromechanical engineer (RT), polymerase chain reaction (PCR), and array hybridization to detect specific gastrointestinal microbial nucleic acid gene sequences associated with the following pathogenic bacteria and viruses:Campylobacter Group (composed of C. coli, C. jejuni, and C. olimpia), Salmonella species, Shigella species (including S. dysenteriae,S. boydii, S. sonnei and S. flexneri), Vibrio Group (composed of V. cholera and V. parahaemolyticus), Yersinia enterocolitica, Norovirus GI/GII, and Rotavirus A. In addition, EPdetects Shiga toxin 1 gene and Shiga toxin 2 gene virulence markers. Shiga toxin producing E. coli (STEC) typically harborone or both genes that encode for Shiga toxins 1 and 2. Campylobacter group, Salmonella species, Shigella species, Vibrio group, Rotavirus A, Shiga Toxin 1, Shiga Toxin 2, Norovirus GI/GII, and Yersinia enterocolitica were tested by Verigene nulcleic acidtest.Performed By: #### [id number] #### [facility] [address], [place] [address]P. coli stx1+stx2 genes ADELITA+non-probe Ql (Stl)NegativeNormal Mercy HospitalComment on above:Performed By: #### [id number] #### [facility] [address], [place] [address]Rlayzwa Panel by PCRShiga Tox Interp Negative for Shiga Toxin producing E. coliNoGalion Community Hospital Enteric Panel Intrl QCPassNoGalion Community HospitalComment on above: Result Comment: Testing was performed utilizing reverse electromechanical engineer (RT), polymerase chain reaction (PCR), and array hybridization to detect specific gastrointestinal microbial nucleic acid gene sequences associated with the following pathogenic bacteria and viruses:Campylobacter Group (composed of C. coli, C. jejuni, and C. olimpia), Salmonella species, Shigella species (including S. dysenteriae,S. boydii, S. sonnei and S. flexneri), Vibrio Group (composed of V. cholera and V. parahaemolyticus), Yersinia enterocolitica, Norovirus GI/GII, and Rotavirus A. In addition, EPdetects Shiga toxin 1 gene and Shiga toxin 2 gene virulence markers. Shiga toxin producing E. coli (STEC) typically harborone or both genes that encode for Shiga toxins 1 and 2.Performed By: #### [id number] #### [facility] [address] [place] [address]Qqdtcpjfr genogroup I+II RNA ADELITA+non-probe Ql (Stl)Not detected The Metro[facility] SystemComment on above:Performed By: #### [id number] #### [facility] [address], [place] [address]Pwlzyabar A RNA ADELITA+non-probe Ql (Stl)Not detectedNoGalion Community HospitalComment on above:Performed By: #### [id number] #### [facility] [address] [place] [address]C. enterica+bongori DNA ADELITA+non-probe Ql (Stl)Not detected The [facility] SystemComment on above:Result Comment: This test result should be correlated with clinical presentations and medical history by a healthcare provider to determine its clinical significance.Performed By: #### [id number] #### [facility] [address], [place] [address]Pkjupvka species+EIEC invasion plasmid antigen H ipaH gene ADELITA+non-probe Ql (Stl)Not detectedNoGalion Community HospitalComment on above:Performed By: #### [id number] #### [facility] [address] [place] [address]L. cholerae+parahaemolyticus+vulnificus DNA ADELITA+non-probe Ql (Stl)Not detectedNormalMercy HospitalComment on above:Performed By: #### [id number] #### [facility] [address], [place] [address]L. enterocolitica DNA ADELITA+non-probe Ql (Stl)Not detectedNormal [facility]cy HospitalComment on above:Performed By: #### [id number] #### [facility] [address], [place] [address]Smvayk Disease Comprehensiveon 53-74-3321Jzhooyetim IgA Ql (S) NegativeInvalid Interpretation CodeNegativeMercy HospitalComment on above:Performed By: #### [id number] #### [facility] [address] [place] [address]Tnbvzsj peptide IgA Qn (S)4 unit(s)Invalid Interpretation Code 0-19Mercy HospitalComment on above:Result Comment: Negative 0 - 19 Weak Positive 20 - 30 Moderate to Strong Positive >30Performed By: #### [id number] #### [facility] [address] [place] [address]Wqwcvqg peptide IgG Qn (S)3 unit(s)Invalid Interpretation Code 0-19Mercy HospitalComment on above:Result Comment: Negative 0 - 19 Weak Positive 20 - 30 Moderate to Strong Positive >30Performed By: #### [id number] #### [facility] [address], [place] [address]XtA [Mass/Vol]248 mg/dLInvalid Interpretation Fiaf28-320KyeojjMercy HospitalComment on above:Result Comment: Performed at: [facility] [address] [place] [id number] PhD Kirk CmPerformed By: #### [id number] #### [facility] [address], [place] [address]zEI IgA Qn (S)<2Invalid Interpretation Code0-3FKnox Community HospitalComment on above:Result Comment: Negative 0 - 3 Weak Positive 4 - 10 Positive >10 Tissue Transglutaminase (tTG) has been identified as the endomysial antigen. Studies have demonstr- ated that endomysial IgA antibodies have over 99% specificity for gluten sensitive enteropathy.Performed By: #### [id number] #### [facility] [address], [place] [address]kEH IgG Qn (S)5 unit/mLInvalid Interpretation Code0-5Fisher [facility] Medical CenterComment on above:Result Comment: Negative 0 - 5 Weak Positive 6 - 9 Positive >9Performed By: #### [id number] #### [facility] [address] [place] [address]TBQSVKJQFHerjejj By: SYSTEM SYSTEM on 92-45-7716MJH Qn1.76 m[IU]/LNormal0.34 - 5.60 mcIU/mLRemisol ChemTSHon 24-42-0104MKD Qn1.76 m[IU]/L Normal0.34-5.60Fisher [facility] CenterComment on above:Performed By: #### [id number] #### [facility] [address], [place] [address]HYT AUTO DIFFon [id number] #0.1 103/ulNormal0.0-0.1[facility], IncComment on above:Performed By: #### CBC #### [facility] [address] [place] [address] Dr. Scooby Bazansophils/100 WBC (Bld)0.5 %Normal0.2-2.0The [facility] Comment on above:Performed By: #### CBC #### [facility] [address] [place] [address] Dr. Scooby Bynum #0.0 103/ulNormal0.0-0.7The [facility] HospitalComment on above: Performed By: #### CBC #### [facility] [address] [place] [address] Dr. Scooby Garciaosinophils/100 WBC (Bld)0.1 %Critically low0.9-7.0The [facility] HospitalComment on above:Performed By: #### CBC #### [facility] [address] [place] [address] Dr. Scooby Garciarythrocyte distribution width (RBC) [Ratio]15.1 %Critically high 11.0-15.0The [facility] HospitalComment on above:Performed By: #### CBC #### [facility] [address] [place] [address] Dr. Scooby IrvinHematocrit (Bld) [Volume fraction]39.4 %Ciiazb38.0-48.0The [facility] HospitalComment on above:Performed By: #### CBC #### [facility] [address] [place] [address] Dr. Scooby IrvinHemoglobin (Bld) [Mass/Vol]12.6 g/fHPjneyx98.0-16.0The [facility] HospitalComment on above:Performed By: #### CBC #### [facility] [address] [place] [address] Dr. Scooby Nicholson #0.05 10e3/ulCritically high0.00-0.03The [facility] Comment on above:Performed By: #### CBC #### [facility] [address] [place] [address] Dr. Scooby Nicholson %0.5 %Normal0.0-0.5The [facility] HospitalComment on above: Performed By: #### CBC #### [facility] [address] [place] [address] Dr. Scooby RolandH #1.3 103/ulNormal1.2-3.8The [facility] HospitalComment on above:Performed By: #### CBC #### [facility] [address] [place] [address] Dr. Scooby Laomphocytes/100 WBC (Bld)13.2 %Critically low20.5-60.0The [facility] HospitalComment on above:Performed By: #### CBC #### [facility] [address] [place] [address] Dr. Scooby Weiner DIFF REQNONormalThe [facility] HospitalComment on above: Performed By: #### CBC #### [facility] [address] [place] [address] Dr. Scooby Bob (RBC) [Entitic mass]30.0 dcZrpgux11.7-34.0The [facility] HospitalComment on above:Performed By: #### CBC #### [facility] [address] [place] [address] Dr. Scooby Bob (RBC) [Mass/Vol]32.0 g/jOWqaxku16.9-35.2The [facility] HospitalComment on above:Performed By: #### CBC #### [facility] [address] [place] [address] Dr. Scooby Bob (RBC) [Entitic vol]93.8 gSZuwrvf28.0-99.0The [facility] HospitalComment on above:Performed By: #### CBC #### [facility] [address] [place] [address] Dr. Scooby Page #0.7 103/ulNormal0.3-0.8The [facility] HospitalComment on above:Performed By: #### CBC #### [facility] [address] [place] [address] Dr. Scooby Arevaloocytes/100 WBC (Bld)7.2 %Normal1.7-12.0[facility] Comment on above:Performed By: #### CBC #### [facility] [address] [place] [address] Dr. Scooby Chino #7.5 103/ulCritically high1.4-6.5The [facility] Comment on above:Performed By: #### CBC #### [facility] [address] [place] [address] Dr. Scooby Lozanoutrophils/100 WBC (Bld)78.5 %Critically high43.0-75.0The [facility] HospitalComment on above:Performed By: #### CBC #### [facility] [address] [place] [address] Dr. Scooby Johnsonlet mean volume (Bld) [Entitic vol]9.9 fLNormal9.5-13.5The [facility] Hospital [facility] Columbusment on above:Performed By: #### CBC #### [facility] [address] [place] [address] Dr. Scooby IrvinPLT230 103/lxDrispb115-516Aqu [facility] HospitalComoaklawn hospital on above: Performed By: #### CBC #### [facility] [address] [place] [address] Dr. Scooby IrvinRBC4.20 106/ulNormal4.20-5.40The [facility] HospitalComoaklawn hospital on above:Performed By: #### CBC #### [facility] [address] [place] [address] Dr. Scooby IrvinWBC9.5 103/ulNormal4.0-11.0The [facility] HospitalComoaklawn hospital on above: Performed By: #### CBC #### [facility] [address] [place] [address] Dr. Scooby IrvinPROF 14(COMP METB)on 77-81-7199Dwphsng [Mass/Vol]3.9 g/dLNormal 3.4-5.0The [facility] on above:Performed By: #### CBC #### [facility] [address] [place] [address] Dr. Scooby IrvinAlbumin/Globulin [Mass ratio]1.0 {ratio}NormalThe [facility] HospitalComoaklawn hospital on above:Performed By: #### CBC #### [facility] [address] [place] [address] Dr. Scooby Veloz [Catalytic activity/Vol]87 U/TIihyfp03-607Tct [facility] on above:Performed By: #### CBC #### [facility] [address] [place] [address] Dr. Scooby Solorio [Catalytic activity/Vol]29 U/YGbwevy13-76Bim [facility] HospitalComoak[facility] on above:Performed By: #### CBC #### [facility] [address] [address] [address] Scooby Shultz gap [Moles/Vol]14.1 mmol/LNormalSelect [facility] Comment on above:Performed By: #### CBC #### [facility] [address] [address] [address] Scooby IrvinAST [Catalytic activity/Vol]38 U/LCritically ffup69-01Gjh [facility] HospitalComment on above:Performed By: #### CBC #### [facility] [address] [address] [address] Scooby IrvinBilirubin [Mass/Vol]0.5 mg/dLNormal0.2-1.0The [facility] Comment on above:Performed By: #### CBC #### [facility] [address] [address] [address] Scooby IrvinCalcium [Mass/Vol]9.2 mg/dLNormal8.5-10.1The [facility] Comment on above:Performed By: #### CBC #### [facility] [address] [address] [address] Scooby IrvinChloride [Moles/Vol]102 mmol/DRdfejm71-582Egm [facility] Comment on above:Performed By: #### CBC #### [facility] [address] [address] [address] Scooby IrvinCO2 [Moles/Vol]25.7 mmol/FYlxgsf34.0-32.0The [facility] Comment on above:Performed By: #### CBC #### [facility] [address] [place] [address] Dr. Scooby IrvinCreatinine [Mass/Vol]0.76 mg/dLNormal0.55-1.02The [facility] HospitalComment on above:Performed By: #### CBC #### [facility] [address] [address] [address] Scooby GarciaGFR-AF SOLOMON ISLANDER>60Normal>=60The [facility] HospitalComment on above:Performed By: #### CBC #### [facility] [address] [address] [address] Scooby GarciaGFR-NON AF SOLOMON ISLANDER>60Normal>=60The [facility] HospitalComment on above:Performed By: #### CBC #### [facility] [address] [address] [address] Scooby IrvinGlobulin (S) [Mass/Vol]3.8 g/dLNormSt. Anthony's HospitalComment on above:Performed By: #### CBC #### [facility] [address] [address] [address] Scooby IrvinGlucose [Mass/Vol]104 mg/vCDzcfpx96-579Bvx [facility] Comment on above:Performed By: #### CBC #### [facility] [address] [place] [address] Dr. Scooby IrvinPotassium [Moles/Vol]4.8 mmol/LNormal3.5-5.1The [facility] Comment on above:Performed By: #### CBC #### [facility] [address] [place] [address] Dr. Scooby IrvinProtein [Mass/Vol]7.7 g/dLNormal6.4-8.2The [facility] Comment on above:Performed By: #### CBC #### [facility] [address] [place] [address] Dr. Scooby IrvinSodium [Moles/Vol]137 mmol/PYzvekw995-880Nfm [facility] Comment on above:Performed By: #### CBC #### [facility] [address] [place] [address] Dr. Scooby IrvinUrea nitrogen [Mass/Vol]9.0 mg/dLNormal7.0-18.0The [facility] HospitalComment on above:Performed By: #### CBC #### [facility] [address] [place] [address] Dr. Scooby Arroyo nitrogen/Creatinine [Mass ratio]11.8 mg/mgNormSt. Anthony's HospitalComment on above:Performed By: #### CBC #### [facility] [address] [place] [address] Dr. Scooby IrvinLIPID PROFILEon 77-45-0805SNFF-HDL RATIO NORMSEE [facility] SouthComoaklawn hospital on above:Result Comment: 3.3 - 4.4 LOW RISK 4.4 - 7.1 AVERAGE RISK 7.1 - 11.0 MODERATE RISK >11.0 HIGH RISKPerformed By: #### CMP, LIPID #### [facility] [address] [address] [address] Scooby IrvinCholesterol [Mass/Vol]235 mg/dLCritically high<=200The [facility] on above:Performed By: #### CMP, LIPID #### [facility] [address] [address] [address] Scooby IrvinCholesterol in HDL [Mass/Vol]65 mg/dLCritically vuwy20-26AfgDayton VA Medical Center on above:Performed By: #### CMP, LIPID #### [facility] [address] [address] [address] Scooby IrvinCholesterol in LDL [Mass/Vol]156.8 mg/dLAshtabula County Medical CenterComoaklawn hospital on above:Performed By: #### CMP, LIPID #### [facility] [address] [place] [address] Dr. Scooby Lobatoesterlevi.total/Cholesterol in HDL [Mass ratio]3.6 {ratio} NormalDayton VA Medical Center on above:Performed By: #### CMP, LIPID #### [facility] [address] [address] [address] Scooby Maki NORMAL> or = 60 mg/dl - LOW CARDIOVASCULAR RISK <40 mg/dl - HIGH CARDIOVASCULAR RISKAshtabula County Medical CenterComoaklawn hospital on above:Performed By: #### CMP, LIPID #### [facility] [address] [address] [address] Scooby IrvinLDL CALC NORMALSEE [facility]Comoakla[facility] hospital on above:Result Comment: <100 mg/dl OPTIMAL 100 - 129 mg/dl NEAR OR ABOVE OPTIMAL 130 - 159 mg/dl BORDERLINE HIGH 160 - 189 mg/dl HIGH >190 mg/dl VERY HIGH Performed By: #### CMP, LIPID #### [facility] [address] [address] [address] Scooby IrvinTriglyceride [Mass/Vol]66 mg/dLNormal<=150[facility] Comment on above:Performed By: #### CMP, LIPID #### [facility] [address] [address] [address] Scooby IrvinVLDL CALC13.2 mg/dLNormalThe [facility] HospitalComment on above: Performed By: #### CMP, LIPID #### [facility] [address] [address] [address] Scooby IrvinPROF 14(COMP METB)on 77-54-6144Rfrxltx [Mass/Vol]3.9 g/dLNormal 3.4-5.0The [facility] HospitalComment on above:Performed By: #### CMP, LIPID #### [facility] [address] [place] [address] Dr. Scooby IrvinAlbumin/Globulin [Mass ratio]1.1 {ratio}NormalThe [facility] HospitalComment on above:Performed By: #### CMP, LIPID #### [facility] [address] [place] [address] Dr. Scooby Veloz [Catalytic activity/Vol]87 U/SSqcflo26-997Suc [facility] HospitalComment on above:Performed By: #### CMP, LIPID #### [facility] [address] [place] [address] Dr. Scooby Solorio [Catalytic activity/Vol]27 U/SLgrknc91-11Gtz [facility] HospitalComment on above:Performed By: #### CMP, LIPID #### [facility] [address] [place] [address] Dr. Scooby Shultz gap [Moles/Vol]16.9 mmol/LNormalThe [facility] Comment on above:Performed By: #### CMP, LIPID #### [facility] [address] [place] [address] Dr. Scooby IrvinAST [Catalytic activity/Vol]21 U/SQeznwt84-68Hir [facility] HospitalComment on above:Performed By: #### CMP, LIPID #### [facility] [address] [address] [address] Scooby IrvinBilirubin [Mass/Vol]0.4 mg/dLNormal0.2-1.0The [facility] Comment on above:Performed By: #### CMP, LIPID #### [facility] [address] [address] [address] Scooby IrvinCalcium [Mass/Vol]8.7 mg/dLNormal8.5-10.1The [facility] Comment on above:Performed By: #### CMP, LIPID #### [facility] [address] [address] [address] Scooby IrvinChloride [Moles/Vol]102 mmol/TUrnyrh07-053Rox [facility] Comment on above:Performed By: #### CMP, LIPID #### [facility] [address] [place] [address] Dr. Scooby IrvinCO2 [Moles/Vol]22.0 mmol/XBnvyvf30.0-32.0The [facility] Comment on above:Performed By: #### CMP, LIPID #### [facility] [address] [address] [address] Scooby IrvinCreatinine [Mass/Vol]0.73 mg/dLNormal0.55-1.02The [facility] HospitalComment on above:Performed By: #### CMP, LIPID #### [facility] [address] [address] [address] Scooby GarciaGFR-AF SOLOMON ISLANDER>60Normal>=60The [facility] HospitalComment on above:Performed By: #### CMP, LIPID #### [facility] [address] [place] [address] Dr. Scooby GarciaGFR-NON AF SOLOM[place] ISLANDER>60Normal>=60The [facility] HospitalComment on above:Performed By: #### CMP, LIPID #### [facility] [address] [address] [address] Scooby IrvinGlobulin (S) [Mass/Vol]3.7 g/dLNormalThe [facility] HospitalComment on above:Performed By: #### CMP, LIPID #### [facility] [address] [address] [address] Scooby IrvinGlucose [Mass/Vol]105 mg/mAMllilr80-786Hno [facility] Comment on above:Performed By: #### CMP, LIPID #### [facility] [address] [address] [address] Scooby IrvinPotassium [Moles/Vol]3.9 mmol/LNormal3.5-5.1The [facility] Comment on above:Performed By: #### CMP, LIPID #### [facility] [address] [place] [address] Dr. Scooby IrvinProtein [Mass/Vol]7.6 g/dLNormal6.4-8.2The [facility] Comment on above:Performed By: #### CMP, LIPID #### [facility] [address] [place] [address] Dr. Scooby IrvinSodium [Moles/Vol]137 mmol/OTayupa538-336Edg [facility] Comment on above:Performed By: #### CMP, LIPID #### [facility] [address] [place] [address] Dr. Scooby IrvinUrea nitrogen [Mass/Vol]11.0 mg/dLNormal7.0-18.0The [facility] HospitalComment on above:Performed By: #### CMP, LIPID #### [facility] [address] [place] [address] Dr. Scooby IrvinUrea nitrogen/Creatinine [Mass ratio]15.1 mg/mgNormalThe [facility] HospitalComment on above:Performed By: #### CMP, LIPID #### [facility] [address] [place] [address] Dr. Scooby Corral 91-96-9725WZY0.198 uIU/mLNormal0.358-3.740The [facility] HospitalComment on above:Performed By: #### TSH #### [facility] [address] [place] [address] Dr. Scooby Lassiterd-19 PCR (CVDTBH)on 52-47-9265OSSJ-CoV-2 (COVID-19) RNA ADELITA+probe Ql (Unsp spec)Not detectedNormalNOT DETECTEDThe [facility] Comment on above:Result Comment: This test is not yet approved or cleared by the [place] FDA. When there are no FDA-approved or cleared tests available, and other criteria are met, FDA can make tests available under an emergency access mechanism called an Emergency Use Authorization (EUA). The EUA for this test is supported by the Hearing Aide Technician of Health and Human Service's (HHS's) declaration that circumstances exist to justify the emergency use of in vitro diagnostics for the detection and/or diagnosis of the virus that causes COVID- 19. This EUA will remain in effect (meaning [...] of clinical signs and symptoms consistent with SARS-CoV-2.Performed By: #### CBC #### [facility] [address] [place] [address] Dr. Scooby Corral 51-06-9107ADB7.326 uIU/mLNormal0.358-3.740The [facility] HospitalComment on above:Performed By: #### CBC #### [facility] [address] [place] [address] Dr. Scooby Nguyễn [facility] HOSPITALNoKettering Health Greene MemorialComment on above: Result Comment: <0.34 UIU/ml HYPERTHYROID 0.34-5.60 UIU/ml EUTHYROID >5.60 UIU/ml HYPOTHYROIDPerformed By: #### CBC #### [facility] [address] [place] [address] Dr. Scooby IrvinBasophils Auto (Bld) [#/Vol]Ordered By: Luis Gutierrez on 36-80-2036Wouxrfvpc (Bld) [#/Vol]0.1 10*3/uL0.0-0.2FUniversity Hospitals Geauga Medical CenterBasophils/100 WBC Auto (Bld)Ordered By: Luis Gutierrez on 05-26-2021 Basophils/100 WBC (Bld)0.9 %[facility] HospitalBlood hemoglobin measurement (mass/volume)Ordered By: Luis Gutierrez on 81-46-2536Gmrpdzaezx (Bld) [Mass/Vol]12.4 g/dL11.8-15.4FUniversity Hospitals Geauga Medical CenterBlood leukocytes automated count (number/volume)Ordered By: Luis Gutierrez on 13-70-7321TET (Bld) [#/Vol]8.8 10*3/uL4.5-11.0[facility] COVID-19 Positive/NegativeOrdered By: Luis Gutierrez on 27-74-2716JJSX-CoV-2 (COVID-19) N gene ADELITA+probe Ql (Resp)NegativeNegativeBerger HospitalComment on above:Testing for SARS-CoV-2 by RT-PCRThis test was developed and its performance characteristics determined by [employer] and validated at the [facility]. This test has not been FDA [...] the authorization is terminated or revoked sooner. Creatinine and Glomerular filtration rate.predicted panel (S/P/Bld)Ordered By: Luis Gutierrez on 02-68-2082Mfcrudmtgv [Mass/Vol]0.66 mg/dL0.44-1.03[facility] HospitalEosinophils Auto (Bld) [#/Vol]Ordered By: Luis Gutierrez on 56-76-4185Nkwixlmrlnr (Bld) [#/Vol]0.0 10*3/uL0.0-0.45[facility] HospitalEosinophils/100 WBC Auto (Bld)Ordered By: Luis Gutierrez on 89-19-6056Ctwzvtnxgeo/100 WBC (Bld)0.2 %[facility] Erythrocyte distribution width Auto (RBC) [Ratio]Ordered By: Luis Gutierrez on 90-78-3623Txadjieuglf distribution width (RBC) [Ratio]16.1 %11.9-15.3FUniversity Hospitals Geauga Medical CenterEstimated glomerular filtration rate (GFR) non- AmericanOrdered By: Luis Gutierrez on 43-52-7078ZSS/1.73 sq M.predicted among non-blacks MDRD (S/P/Bld) [Vol rate/Area]> 60 mL/MinBerger HospitalHematocrit Auto (Bld) [Volume fraction]Ordered By: Luis Gutierrez on 82-76-7410Jbbcniwdfm (Bld) [Volume fraction]37.5 %34.0-46.4FUniversity Hospitals Geauga Medical CenterLaboratory - Hematology and Cell countsOrdered By: Luis Gutierrez on 04-05-5436Dyjhuyztx RBC/100 WBC (Bld) [Ratio]0.1 %0-0.5FUniversity Hospitals Geauga Medical CenterLymphocytes Auto (Bld) [#/Vol]Ordered By: Luis Gutierrez on 73-17-6879Sfunlblnidc (Bld) [#/Vol]1.4 10*3/uL1.00-4.8[facility] HospitalLymphocytes/100 WBC Auto (Bld)Ordered By: Luis Gutierrez on 05-26-2021 Lymphocytes/100 WBC (Bld)15.8 %[facility] Auto (RBC) [Entitic mass]Ordered By: Luis Gutierrez on 44-72-2273AXI (RBC) [Entitic mass] 29.2 pg24.7-34.3FUniversity Hospitals Geauga Medical CenterMCHC Auto (RBC) [Mass/Vol] Ordered By: Luis Gutierrez on 10-30-7039NXTT (RBC) [Mass/Vol]33.1 g/dL32.0-35.0 [facility] HospitalMCV Auto (RBC) [Entitic vol]Ordered By: Luis Gutierrez on 04-07-9121HZR (RBC) [Entitic vol]88.3 aB02-396TsccaayzmBerger HospitalMonocytes Auto (Bld) [#/Vol]Ordered By: Luis Gutierrez on 29-95-6779Lwcmjdcte (Bld) [#/Vol]0.7 10*3/uL0.0-0.8[facility] HospitalMonocytes/100 WBC Auto (Bld)Ordered By: Luis Gutierrez on 05-26-2021 Monocytes/100 WBC (Bld)7.7 %[facility] HospitalNeutrophils Auto (Bld) [#/Vol]Ordered By: Luis Gutierrez on 75-09-7113Plsbftfvqpw (Bld) [#/Vol] 6.7 10*3/uL1.8-7.7FUniversity Hospitals Geauga Medical CenterNeutrophils/100 WBC Auto (Bld)Ordered By: Luis Gutierrez on 58-33-1843Ruzrhusaiat/100 WBC (Bld)75.4 % [facility] HospitalNo Panel InformationOrdered By: Luis Gutierrez on 18-70-2354Mthyuneos GFR ()> 60 mL/MinBerger HospitalComment on above:GFR estimated reference range: According to KDOQI guidelines, <60 ml/min/1.73m2 is sufficient todiagnose a patient with chronic kidney disease.Pharmacy Creatinine Clearance (ChemN/The [facility]vue HospitalPlatelet mean volume Auto (Bld) [Entitic vol]Ordered By: Luis Gutierrez on 89-80-9209Xqqieajz mean volume (Bld) [Entitic vol]8.6 fL6.3-10.7FUniversity Hospitals Geauga Medical CenterPlatelets Auto (Bld) [#/Vol]Ordered By: Luis Guteirrez on 54-84-1249Ajxtjdszv (Bld) [#/Vol]241 10*3/bF582-191AdsnxqaaqBerger HospitalRBC Auto (Bld) [#/Vol]Ordered By: Luis Gutierrez on 75-38-4219JQS (Bld) [#/Vol]4.24 10*6/uL3.60-5.00K[facility]tering Health Main Campuserum or plasma calcium measurement (mass/volume)Ordered By: Luis Gutierrez on 05-26-2021 Calcium [Mass/Vol]9.4 mg/dL8.2-10.2FSelect Medical Specialty Hospital - Southeast Ohioerum or plasma chloride measurement (moles/volume)Ordered By: Lius Gutierrez on 89-49-8498Ywrqfcva [Moles/Vol]105 mmol/P65-838OiyalwycfBerger Hospital Serum or plasma glucose measurement (mass/volume)Ordered By: Luis Gutierrez on 13-42-6239Aexzrhi [Mass/Vol]89 mg/rC19-065KmvkenxvcBerger Hospital Comment on above:ADA recommended reference rangeRandom Glucose Reference Range is dependent on time and content of last meal. Glucose of more than 200 mg/dL in a nonstressed, ambulatory subject supports the diagnosisof Diabetes Mellitus. Serum or plasma intact parathyroid hormone measurement (mass/volume)Ordered By: Luis Gutierrez on 27-16-9691Edelxzvluc.intact [Mass/Vol]31.2 pg/mL12-88 [facility] Health Main Campuserum or plasma potassium measurement (moles/volume)Ordered By: Luis Gutierrez on 17-35-3936Velrczifi [Moles/Vol]4.0 mmol/L3.5-5.1FSelect Medical Specialty Hospital - Southeast Ohioerum or plasma sodium measurement (moles/volume)Ordered By: Luis Gutierrez on 75-04-5331Nsujop [Moles/Vol]137 mmol/E222-258OkngxkqufKettering Health Main Campuserum or plasma total carbon dioxide measurement (moles/volume)Ordered By: Luis Gutierrez on 04-23-9065IS3 [Moles/Vol]23.0 mmol/L22.0-30.0[facility] Health Main Campuserum or plasma urea nitrogen measurement (mass/volume)Ordered By: Luis Gutierrez on 05-26-2021 Urea nitrogen [Mass/Vol]10 mg/dL9-23Ber[facility] HospitalTS DL <= 0.005 mIU/L QnOrdered By: Luis Gutierrez on 88-27-6169FLH Qn0.86 m[IU]/L 0.45-5.33[facility] HospitalMG MAMM SCREEN 3D GEORGES CADon 05-22-2021 MG MAMM SCREEN 3D GEORGES CADPatient: ALEXANDRA CERVANTES Exam Date: 05/22/2021 : 1950 Gender:F Ordering : DR LAURITA MORALES M.D. Admission #: [id number] Family : Order #: [id number] CLICK HERE TO VIEW EXAM RADIOLOGY REPORT [...] Treatments None Family Cancers None LOCATION: [facility] BREAST COMPOSITION: Scattered areas fibroglandular density. [...] by: Lonny Killian MD on 05/22/2021 at 12:06[facility] CenterCT Chest w/Contraston [id number] Chest w/ContrastPlease see CT neck report dated: 05/17/2021. Report reported and signed by Fuentes Lion on 05/22/2021 1528NormalNortcobre valley regional medical centern [facility] ConnecticutCT Soft Tissue Neck w/ Contrast*on [id number] Soft Tissue Neck w/ Contrast*CLINICAL HISTORY: Mediastinal mass. COMPARISON: CT 04/01/2021 and [...] and signed by Fuentes Lion on 05/22/2021 1528NormalNorthern Washington Medical SpecialistCBC AUTO DIFFon 29-42-7231IECV #0.1 103/ulNormal0.0-0.1 The [facility] HospitalComment on above:Performed By: #### CBC #### [facility] [address] [address] [address] Scooby IrvinBasophils/100 WBC (Bld)0.4 %Normal0.2-2.0The [facility] Comment on above:Performed By: #### CBC #### [facility] [address] [address] [address] Scooby Bynum #0.0 103/ulNormal0.0-0.7The [facility] HospitalComment on above: Performed By: #### CBC #### [facility] [address] [address] [address] Scooby Garciaosinophils/100 WBC (Bld)0.2 %Critically low0.9-7.0The [facility] HospitalComment on above:Performed By: #### CBC #### [facility] [address] [place] [address] Dr. Scooby Garciarythrocyte distribution width (RBC) [Ratio]16.7 %Critically high 11.0-15.0The [facility] HospitalComment on above:Performed By: #### CBC #### [facility] [address] [place] [address] Dr. Scooby IrvinHematocrit (Bld) [Volume fraction]37.6 %Xebyhx40.0-48.0The [facility] HospitalComment on above:Performed By: #### CBC #### [facility] [address] [place] [address] Dr. Scooby IrvinHemoglobin (Bld) [Mass/Vol]12.0 g/sSGbynrb56.0-16.0The [facility] HospitalComment on above:Performed By: #### CBC #### [facility] [address] [place] [address] Dr. Scooby Nicholson #0.02 10e3/ulNormal0.00-0.03The [facility] HospitalComment on above:Performed By: #### CBC #### [facility] [address] [place] [address] Dr. Scooby Nicholson %0.2 %Normal0.0-0.5The [facility] HospitalComoaklawn hospital on above: Performed By: #### CBC #### [facility] [address] [place] [address] Dr. Scooby Mir #1.6 103/ulNormal1.2-3.8The [facility] HospitalComment on above:Performed By: #### CBC #### [facility] [address] [place] [address] Dr. Scooby Laomphocytes/100 WBC (Bld)13.6 %Critically low20.5-60.0The [facility] HospitalComment on above:Performed By: #### CBC #### [facility] [address] [place] [address] Dr. Scooby SeverinoUAL DIFF REQNONormalThe [facility] HospitalComment on above: Performed By: #### CBC #### [facility] [address] [address] [address] Scooby Bob (RBC) [Entitic mass]28.6 uiCnujbn02.7-34.0The [facility] HospitalComment on above:Performed By: #### CBC #### [facility] [address] [place] [address] Dr. Scooby Bob (RBC) [Mass/Vol]31.9 g/zSFiithy74.9-35.2The [facility] HospitalComment on above:Performed By: #### CBC #### [facility] [address] [place] [address] Dr. Scooby Bob (RBC) [Entitic vol]89.5 hZDgxdcb87.0-99.0The [facility] HospitalComment on above:Performed By: #### CBC #### [facility] [address] [place] [address] Dr. Scooby Page #0.7 103/ulNormal0.3-0.8The [facility] HospitalComment on above:Performed By: #### CBC #### [facility] [address] [place] [address] Dr. Scooby Arevaloocytes/100 WBC (Bld)5.8 %Normal1.7-12.0[facility] Comment on above:Performed By: #### CBC #### [facility] [address] [place] [address] Dr. Scooby Chino #9.1 103/ulCritically high1.4-6.5The [facility] Comment on above:Performed By: #### CBC #### [facility] [address] [place] [address] Dr. Scooby Lozanoutrophils/100 WBC (Bld)79.8 %Critically high43.0-75.0The [facility] HospitalComment on above:Performed By: #### CBC #### [facility] [address] [place] [address] Dr. Scooby Johnsonlet mean volume (Bld) [Entitic vol]10.2 fLNormal9.5-13.5The [facility] HospitalComment on above:Performed By: #### CBC #### [facility] [address] [place] [address] Dr. Scooby IrvinPLT217 103/mnQssrvu611-028Hiu [facility] HospitalComment on above: Performed By: #### CBC #### [facility] [address] [place] [address] Dr. Scooby IrvinRBC4.20 106/ulNormal4.20-5.40The [facility] HospitalComment on above:Performed By: #### CBC #### [facility] [address] [place] [address] Dr. Scooby IrvinWBC11.4 103/ulCritically high4.0-11.0The [facility] HospitalComment on above:Performed By: #### CBC #### [facility] [address] [place] [address] Dr. Scooby Malone 14(COMP METB)on 82-44-3909Tvstnnl [Mass/Vol]3.9 g/dLNormal 3.5-5.0The [facility] HospitalComment on above:Performed By: #### CMP #### [facility] [address] [place] [address] Dr. Scooby IrvinAlbumin/Globulin [Mass ratio]1.1 {ratio}NormalThe [facility] HospitalComment on above:Performed By: #### CMP #### [facility] [address] [place] [address] Dr. Scooby Veloz [Catalytic activity/Vol]72 U/PBkurnl41-346Osu [facility] HospitalComment on above:Performed By: #### CMP #### [facility] [address] [place] [address] Dr. Scooby Solorio [Catalytic activity/Vol]23 U/LNormal9-52The [facility] Comment on above:Performed By: #### CMP #### [facility] [address] [place] [address] Dr. Yilan ChangAnion gap [Moles/Vol]10.2 mmol/LNormalSelect Medical Special[facility] Comment on above:Performed By: #### CMP #### [facility] [address] [address] [address] Scooby IrvinAST [Catalytic activity/Vol]20 U/UYphglp71-48Gcn [facility] HospitalComment on above:Performed By: #### CMP #### [facility] [address] [address] [address] Scooby IrvinBilirubin [Mass/Vol]0.5 mg/dLNormal0.2-1.3TThe [facility] Comment on above:Performed By: #### CMP #### [facility] [address] [place] [address] Dr. cSooby IrvinCalcium [Mass/Vol]8.8 mg/dLNormal8.4-10.2[facility] Comment on above:Performed By: #### CMP #### [facility] [address] [place] [address] Dr. Scooby IrvinChloride [Moles/Vol]104 mmol/ESwykki21-435JipSelect Medical Specialty [facility] Comment on above:Performed By: #### CMP #### [facility] [address] [place] [address] Dr. Scooby IrvinCO2 [Moles/Vol]28.0 mmol/WNckaxu79.0-30.0[facility] Comment on above:Performed By: #### CMP #### [facility] [address] [place] [address] Dr. Scooby IrvinCreatinine [Mass/Vol]0.87 mg/dLNormal0.52-1.04The [facility] HospitalComment on above:Performed By: #### CMP #### [facility] [address] [place] [address] Dr. Scooby GarciaGFR-AF SOLOMON ISLANDER>60Normal>=60The [facility] HospitalComment on above:Performed By: #### CMP #### [facility] [address] [place] [address] Dr. Scooby GarciaGFR-NON AF SOLOM[place] ISLANDER>60Normal>=60The [facility] HospitalComment on above:Performed By: #### CMP #### [facility] [address] [address] [address] Scooby IrvinGlobulin (S) [Mass/Vol]3.5 g/dLNormSt. Anthony's HospitalComment on above:Performed By: #### CMP #### [facility] [address] [address] [address] Scooby IrvinGlucose [Mass/Vol]93 mg/xVKqlibg49-501Uyi [facility] Comment on above:Performed By: #### CMP #### [facility] [address] [address] [address] Scooby IrvinPotassium [Moles/Vol]4.2 mmol/LNormal3.4-5.0The [facility] Comment on above:Performed By: #### CMP #### [facility] [address] [address] [address] Scooby IrvinProtein [Mass/Vol]7.4 g/dLNormal6.1-8.2[facility] Comment on above:Performed By: #### CMP #### [facility] [address] [address] [address] Scooby IrvinSodium [Moles/Vol]138 mmol/CDgpoex545-652PjaSelect Medical Specialty Hospital [facility], [facility] Comment on above:Performed By: #### CMP #### [facility] [address] [address] [address] Scooby IrvinUrea nitrogen [Mass/Vol]15.0 mg/dLNormal7.0-17.0The [facility] HospitalComment on above:Performed By: #### CMP #### [facility] [address] [address] [address] Scooby IrvinUrea nitrogen/Creatinine [Mass ratio]17.2 mg/mgNormSt. Anthony's HospitalComment on above:Performed By: #### CMP #### [facility] [address] [address] [address]T [address] SKULL BASE MID THIGHon 59-51-4446EMB CT SKULL BASE MID THIGHEXAMINATION: PET CT SKULL BASE MID THIGH HISTORY: [...] Electronically authenticated by: FUENTES BARRETO Date: 2021-04-07 08:[address] [place] [address] LUNG CANCER SCREENINGon [id number] LUNG CANCER SCREENING EXAMINATION: CT LUNG CANCER [...] Electronically authenticated by: FUENTES BARRETO Date: 2021-03-23 09:[place] AUTO DIFFon 04-93-4659BEDT #0.1 103/ulNormal0.0-0.1[facility], IncComment on above:Performed By: #### CBC #### [facility] [address] [place] [address] Dr. Almodovar ChangBasophils/100 WBC (Bld)1.2 %Normal0.2-2.0[facility] Comment on above:Performed By: #### CBC #### [facility] [address] [place] [address] Dr. Scooby Bynum #0.1 103/ulNormal0.0-0.7ThOhioHealth Doctors HospitalComment on above: Performed By: #### CBC #### [facility] [address] [address] [address] Scooby Garciaosinophils/100 WBC (Bld)1.4 %Normal0.9-7.0[facility] Comment on above:Performed By: #### CBC #### [facility] [address] [place] [address] Dr. Scooby Garciarythrocyte distribution width (RBC) [Ratio]16.3 %Critically high 11.0-15.0[facility], IncComment on above:Performed By: #### CBC #### [facility] [address] [place] [address] Dr. Scooby IrvinHematocrit (Bld) [Volume fraction]39.6 %Zwuqbg83.0-48.0The [facility] HospitalComment on above:Performed By: #### CBC #### [facility] [facility] [address] [place] [address] Dr. Scooby IrvinHemoglobin (Bld) [Mass/Vol]12.6 g/cTCtblss88.0-16.0The [facility] HospitalComment on above:Performed By: #### CBC #### [facility] [address] [place] [address] Dr. Scooby IrvinIG #0.01 10e3/ulNormal0.00-0.03The [facility] HospitalComment on above:Performed By: #### CBC #### [facility] [address] [place] [address] Dr. Scooby IrvinIG %0.2 %Normal0.0-0.5The [facility] HospitalComment on above: Performed By: #### CBC #### [facility] [address] [place] [address] Dr. Scooby Mir #1.6 103/ulNormal1.2-3.8The [facility] HospitalComment on above:Performed By: #### CBC #### [facility] [address] [place] [address] Dr. Scooby Laomphocytes/100 WBC (Bld)30.7 %Kpxebn50.5-60.0The [facility] HospitalComment on above:Performed By: #### CBC #### [facility] [address] [place] [address] Dr. Scooby IrvinMANUAL DIFF REQNONormalThe [facility] HospitalComment on above: Performed By: #### CBC #### [facility] [address] [place] [address] Dr. Scooby Contreras (RBC) [Entitic mass]28.4 mtZockfe96.7-34.0The [facility] HospitalComment on above:Performed By: #### CBC #### [facility] [address] [place] [address] Dr. Scooby BobHC (RBC) [Mass/Vol]31.8 g/hVNzynrp77.9-35.2The [facility] HospitalComment on above:Performed By: #### CBC #### [facility] [address] [place] [address] Dr. Scooby BobV (RBC) [Entitic vol]89.2 yDJvgacj55.0-99.0The [facility] HospitalComment on above:Performed By: #### CBC #### [facility] [address] [place] [address] Dr. Scooby Page #0.6 103/ulNormal0.3-0.8The [facility] HospitalComment on above:Performed By: #### CBC #### [facility] [address] [place] [address] Dr. Scooby Arevaloocytes/100 WBC (Bld)11.5 %Normal1.7-12.0The [facility] Comment on above:Performed By: #### CBC #### [facility] [address] [place] [address] Dr. Scooby Chino #2.8 103/ulNormal1.4-6.5The [facility] HospitalComment on above:Performed By: #### CBC #### [facility] [address] [place] [address] Dr. Scooby Lozanoutrophils/100 WBC (Bld)55.0 %Rbashp25.0-75.0The [facility] HospitalComment on above:Performed By: #### CBC #### [facility] [address] [place] [address] Dr. Scooby Johnsonlet mean volume (Bld) [Entitic vol]10.3 fLNormal9.5-13.5The [facility] HospitalComment on above:Performed By: #### CBC #### [facility] [address] [place] [address] Dr. Scooby IrvinPLT208 103/bcTpgrak553-073Nlg [facility] HospitalComment on above: Performed By: #### CBC #### [facility] [address] [address] [address] Scooby IrvinRBC4.44 106/ulNormal4.20-5.40The [facility] HospitalComment on above:Performed By: #### CBC #### [facility] [address] [address] [address] Scooby IrvinWBC5.1 103/ulNormal4.0-11.0The [facility] HospitalComment on above: Performed By: #### CBC #### [facility] [address] [place] [address] Dr. Scooby IrvinFREE T4on 88-42-9255Blig T4 [Mass/Vol]1.15 ng/dLNormal0.78-2.19 The [facility] HospitalComment on above:Performed By: #### CBC #### [facility] [address] [place] [address] Dr. Scooby ThayerID PROFILEon [id number]-HDL RATIO NORMSEE [facility] SouthComment on above:Result Comment: 3.3 - 4.4 LOW RISK 4.4 - 7.1 AVERAGE RISK 7.1 - 11.0 MODERATE RISK >11.0 HIGH RISKPerformed By: #### LIPID, CMP, TSH #### [facility] [address] [place] [address] Dr. Scooby IrvinCholesterol [Mass/Vol]227 mg/dLCritically high<=200The [facility] HospitalComment on above:Performed By: #### LIPID, CMP, TSH #### [facility] [address] [place] [address] Dr. Scooby Lobatoesterol in HDL [Mass/Vol]65 mg/dLAshtabula County Medical Center Comment on above:Performed By: #### LIPID, CMP, TSH #### [facility] [address] [place] [address] Dr. Scooby Lobatoesterol in LDL [Mass/Vol]142.6 mg/dLAshtabula County Medical CenterComment on above:Performed By: #### LIPID, CMP, TSH #### [facility] [address] [address] [address] Scooby IrvinCholesterol.total/Cholesterol in HDL [Mass ratio]3.5 {ratio} NormalThe [facility] HospitalComment on above:Performed By: #### LIPID, CMP, TSH #### [facility] [address] [address] [address] Scooby Maki NORMAL> or = 60 mg/dl - LOW CARDIOVASCULAR RISK <40 mg/dl - HIGH CARDIOVASCULAR RISKAshtabula County Medical CenterComment on above:Performed By: #### LIPID, CMP, TSH #### [facility] [address] [address] [address] Scooby IrvinLDL CALC NORMALSEE BELOWAshtabula County Medical CenterComment on above:Result Comment: <100 mg/dl OPTIMAL 100 - 129 mg/dl NEAR OR ABOVE OPTIMAL 130 - 159 mg/dl BORDERLINE HIGH 160 - 189 mg/dl HIGH >190 mg/dl VERY HIGH Performed By: #### LIPID, CMP, TSH #### [facility] [address] [address] [address] Scooby IrvinTriglyceride [Mass/Vol]97 mg/dLNormal<=150The [facility] Comment on above:Performed By: #### LIPID, CMP, TSH #### [facility] [address] [place] [address] Dr. Scooby IrvinVLDL CALC19.4 mg/dLNoKettering Health Greene MemorialComment on above: Performed By: #### LIPID, CMP, TSH #### [facility] [address] [address] [address] Scooby IrvinPROF 14(COMP METB)on 52-60-2435Hbdeaxl [Mass/Vol]4.0 g/dLNormal 3.5-5.0The [facility] HospitalComment on above:Performed By: #### LIPID, CMP, TSH #### [facility] [address] [place] [address] Dr. Scooby IrvinAlbumin/Globulin [Mass ratio]1.1 {ratio}NormalThe [facility] HospitalComment on above:Performed By: #### LIPID, CMP, TSH #### [facility] [address] [address] [address] Scooby BlancoP [Catalytic activity/Vol]80 U/GZwhyqg50-128Vzk [facility] HospitalComment on above:Performed By: #### LIPID, CMP, TSH #### [facility] [address] [address] [address] Scooby Solorio [Catalytic activity/Vol]35 U/LNormal9-52The [facility] Comment on above:Performed By: #### LIPID, CMP, TSH #### [facility] [address] [address] [address] Scooby Lunaon gap [Moles/Vol]11.8 mmol/LNormalSelect [facility] Comment on above:Performed By: #### LIPID, CMP, TSH #### [facility] [address] [address] [address] Scooby IrvinAST [Catalytic activity/Vol]24 U/DEutnff08-55Eyt [facility] HospitalComment on above:Performed By: #### LIPID, CMP, TSH #### [facility] [address] [address] [address] Scooby IrvinBilirubin [Mass/Vol]0.5 mg/dLNormal0.2-1.3TThe [facility] Comment on above:Performed By: #### LIPID, CMP, TSH #### [facility] [address] [address] [address] Scooby IrvinCalcium [Mass/Vol]9.3 mg/dLNormal8.4-10.2[facility] Comment on above:Performed By: #### LIPID, CMP, TSH #### [facility] [address] [address] [address] Scooby IrvinChloride [Moles/Vol]105 mmol/VRspbet46-243Zxt [facility] Comment on above:Performed By: #### LIPID, CMP, TSH #### [facility] [address] [address] [address] Scooby IrvinCO2 [Moles/Vol]26.2 mmol/UKvhyak27.0-30.0The [facility] Comment on above:Performed By: #### LIPID, CMP, TSH #### [facility] [address] [address] [address] Scooby IrvinCreatinine [Mass/Vol]0.83 mg/dLNormal0.52-1.04The [facility] HospitalComment on above:Performed By: #### LIPID, CMP, TSH #### [facility] [address] [address] [address] Scooby GarciaGFR-AF SOLOM[place] ISLANDER>60Normal>=60The [facility] HospitalComment on above:Performed By: #### LIPID, CMP, TSH #### [facility] [address] [address] [address] Scooby GarciaGFR-NON AF [place]LANDER>60Normal>=60The [facility] HospitalComment on above:Performed By: #### LIPID, CMP, TSH #### [facility] [address] [address] [address] Scooby IrvinGlobulin (S) [Mass/Vol]3.8 g/dLNormalThe [facility] HospitalComment on above:Performed By: #### LIPID, CMP, TSH #### [facility] [address] [address] [address] Scooby IrvinGlucose [Mass/Vol]112 mg/dLCritically yazm74-205Zez [facility] Hospital [facility] Columbusment on above:Performed By: #### LIPID, CMP, TSH #### [facility] [address] [address] [address] Scooby IrvinPotassium [Moles/Vol]4.0 mmol/LNormal3.4-5.0The [facility] Comment on above:Performed By: #### LIPID, CMP, TSH #### [facility] [address] [address] [address] Scooby IrvinProtein [Mass/Vol]7.8 g/dLNormal6.1-8.2[facility] Comment on above:Performed By: #### LIPID, CMP, TSH #### [facility] [address] [address] [address] Scooby IrvinSodium [Moles/Vol]139 mmol/HTjqywq103-838NfnSelect [facility] Comment on above:Performed By: #### LIPID, CMP, TSH #### [facility] [address] [place] [address] Dr. Scooby Arroyo nitrogen [Mass/Vol]15.0 mg/dLNormal7.0-17.0[facility], IncComment on above:Performed By: #### LIPID, CMP, TSH #### [facility] [address] [place] [address] Dr. Scooby Arroyo nitrogen/Creatinine [Mass ratio]18.1 mg/mgNoKettering Health Greene MemorialComment on above:Performed By: #### LIPID, CMP, TSH #### [facility] [address] [place] [address] Dr. Scooby Corral 80-39-1973URK7.761 uIU/mLNormal0.470-4.680The [facility] HospitalComment on above:Performed By: #### LIPID, CMP, TSH #### [facility] [address] [place] [address] [address] [facility] HospitalComment on above: Result Comment: <0.34 UIU/ml HYPERTHYROID 0.34-5.60 UIU/ml EUTHYROID >5.60 UIU/ml HYPOTHYROIDPerformed By: #### LIPID, CMP, TSH #### [facility] [address] [place] [address] Dr. Scooby Irvin Vital Signs Date TimeVital SignValuePerforming DuntqtomyFkinngla52-69-2617 12:58-0400Body uqfcld30.3 kgLaurita Morales MD Work Phone: [facility]10-19-2025 12:20-0400 Respiratory rate17 /minLaurita Morales MD Work Phone: [facility]10-19-2025 11:11-0400 Body tpyvvatzjcl25.6 [degF]Laurita Morales MD Work Phone: [facility]10-19-2025 11:11-0400 Diastolic blood eakglgux66 mm[Hg]Laurita Morales MD Work Phone: 1(811)[address] [place], [place] 7375910-19-2025 11:11-0400 Heart rate77 /minLaurita Morales MD Work Phone: 1(252)[address] [place], [place] 7375910-19-2025 11:11-0400 SaO2% (BldA) [Mass fraction]94 %Laurita Morales MD Work Phone: [phone])[address] [place], [place] 7375910-19-2025 11:11-0400 Systolic blood rgqtxvey144 mm[Hg]Laurita Morales MD Work Phone: 1(607)[address] [place], [place] 7375910-19-2025 05:13-0400 Body lkiees94.6 kgLaurita Morales MD Work Phone: 1(522)[address] [place], [place] 7375910-18-2025 00:00-0400 Inhaled oxygen flow rate1 L/minLaurita Morales MD Work Phone: [phone])[address] [place], [place] 7375910-16-2025 06:05-0400 Body ucsztj558.32 cmLaurita Morales MD Work Phone: 1(016)[address] [place], [place] 7375910-10-2025 09:30-0400 Body .7 cmLaurita Morales MD Work Phone: 1(440)[address] [place], [place] 7375910-10-2025 09:30-0400 Body mass index (BMI) [Ratio]37.5 kg/i7UgwllxLaurita Morales MD Work Phone: [phone])[address] [place], [place] 7375910-10-2025 09:30-0400 Body uejzed17.4 kgLaurita Morales MD Work Phone: 1(684)[address] [place], [place] 7375910-09-2025 10:15-0400 Diastolic blood wbbrojvh47 mm[Hg]Laurita Morales MD Work Phone: 1(398)[address] [place], [place] 7375910-09-2025 10:15-0400 Systolic blood eoqrhgxp922 mm[Hg]Laurita Morales MD Work Phone: 1(426)[address] [place], [place] 7375910-09-2025 10:00-0400 Heart rate88 /Caridad Morales MD Work Phone: 1(076)[address] [place], [place] 7375910-09-2025 09:53-0400 Body tknesa997.7 cmLaurita Morales MD Work Phone: 1(999)[address] [place], [place] 7375910-09-2025 09:53-0400 Body mass index (BMI) [Ratio]37.6 kg/c1LwptcuLaurita Morales MD Work Phone: 1(508)[address] [place], [place] 7375910-09-2025 09:53-0400 Body dszazh50.48 kgLaurita Morales MD Work Phone: 1(696)[address] [place], [place] 7375909-24-2025 11:12-0400 Body fwtoky14.5 kgLaurita Morales MD Work Phone: 1(170)[address] [place], [place] 7375909-08-2025 09:24-0400 Diastolic blood arhsxzvk44 mm[Hg]Laurita Morales MD Work Phone: 1(750)[address] [place], [place] 7375909-08-2025 09:24-0400 Systolic blood kruukdrr757 mm[Hg]Laurita Morales MD Work Phone: 1(512)[address] [place], [place] 7375909-08-2025 08:54-0400 Body .7 cmLaurita Morales MD Work Phone: 1(064)[address] [place], [place] 7375909-08-2025 08:54-0400 Body mass index (BMI) [Ratio]38.1 kg/f3DatjifLaurita Morales MD Work Phone: 1(636)[address] [place], [place] 7375909-08-2025 08:54-0400 Body xszaoo81.38 kgLaurita Morales MD Work Phone: 1(151)[address] [place], [place] 7375909-08-2025 08:54-0400 Heart rate77 /Caridad Morales MD Work Phone: 1(634)[address] [place], [place] 7375908-20-2025 09:54-0400 Body .97 cmLaurita Morales MD Work Phone: 1(603)[address] [place], [place] 7375908-20-2025 09:54-0400 Body mass index (BMI) [Ratio]37.5 kg/v9BwcmpkLaurita Morales MD Work Phone: [facility]08-20-2025 09:54-0400 Body oalvdg57.6 kgLaurita Morales MD Work Phone: [facility]05-13-2025 13:30-0400 Body kwhayq098.9 cmMahumberto Veras PA Work Phone: [facility] CareNvvbgntmqx96-18-4592 13:30-0400Body mass index (BMI) [Ratio]32.11 kg/k8Ovtxiqnhumberto Veras PA Work Phone: [facility] CareNbliliwafc39-95-1030 13:30-0400Body evptly96.12 kgMahumberto Veras PA Work Phone: [facility] CareKxvwpfbrsp56-85-3543 08:53-0400Body mexvho103.97 [facility]03-[facility]-20[facility] 08:53-0400Body mass index (BMI) [Ratio]36.5 kg/c7UigyfyqrcBer[facility] Hospital03-11-2025 08:53-0400Body krqofs10.57 kg[facility]03-11-2025 08:53-0400Diastolic blood miuoxofb77 mm[Hg][facility]03-11-2025 08:53-0400 Heart rate80 /min[facility]03-11-2025 08:53-0400Systolic blood fsizzizx155 mm[Hg][facility]02-07-2025 10:54-0500 Blood Pressure LocationMuhammad Sarmini 204-2972Unjqdj-GlzkpKindred Healthcare02-07-2025 10:54-0500Diastolic blood jkeobwex63 mm[Hg]Salazar Sarmini 286-6629Pjugyx-FsiquKindred Healthcare02-07-2025 10:54-0500Heart rate71 /minMuhammad Sarmini 678-2561Ywmbxr-QgwchKindred Healthcare02-07-2025 10:54-0500Systolic blood mm[Hg]Salazar Sarmini 210-1004Mifbjv-Kvouw[address] [place], [place] 1306812-19-2024 13:46-0500Diastolic blood vrrurzvf76 mm[Hg]Salazar Sarmini 145-2277Tsekdb-Zjvcr[address] [place], [place] 1306812-19-2024 13:46-0500Mean blood wkgjcmka692 mm[Hg]Salazar Sarmini 218-8140Nzzrtt-Mtskr[address] [place], [place] 1306812-19-2024 13:46-0500Systolic blood vcnecfsa452 mm[Hg]Salazar Sarmini 274-7297Zoepyn-Ibxcj[address] [place], [place] 1306812-19-2024 13:41-0500Blood Pressure LocationMuhammad Sarmini 262-4728Mdueux-Fwaym[address] [place], [place] 1306812-19-2024 13:41-0500Diastolic blood gyfypfdp48 mm[Hg]Salazar Sarmini 196-7894Srpbzo-Fyogt[address] [place], [place] 1306812-19-2024 13:41-0500Heart rate80 /minMuhammad Sarmini [phone]-Kvhjf[address] [place], [place] 1306812-19-2024 13:41-0500Systolic blood enkkexdv528 mm[Hg]Salazar Sarmini 347-0754Juxuyn-Mzuxp[address] [place], [place] 1306812-04-2024 13:25-0500Diastolic blood abqitpgp02 mm[Hg]Salazar Sarmini [address] [place], [place] 8758212-04-2024 13:25-0500Heart rate79 /minMuhammad Sarmini [address] [place], [place] 8758212-04-2024 13:25-0500Mean blood mm[Hg]Salazar Sarmini [facility]12-04-2024 13:25-0500 Respiratory rate17 /minMuhammad Sarmini [facility]12-04-2024 13:25-7486UqK9% (BldA) [Mass fraction]96 %Salazar Sarmini [facility]12-04-2024 13:25-0500 Systolic blood gylascev383 mm[Hg]Salazar Sarmini [address] [place], [place] 8758212-04-2024 13:15-0500 Diastolic blood sbxtsuhw89 mm[Hg]Salazar Sarmini [address] [place], [place] 7354012-04-2024 13:15-0500Heart rate79 /minMuhammad Sarmini [address] [place], [place] 8758212-04-2024 13:15-0500Mean blood aqkijqbe376 mm[Hg]Salazar Sarmini [facility]12-04-2024 13:15-0500 Respiratory rate17 /minMuhammad Sarmini [facility]12-04-2024 13:15-7324ZaT6% (BldA) [Mass fraction]96 %Salazar Sarmini [facility]12-04-2024 13:15-0500 Systolic blood ybpmughv962 mm[Hg]Salazar Sarmini [facility]12-04-2024 13:00-0500 Diastolic blood plllputl67 mm[Hg]Salazar Sarmini [facility]12-04-2024 13:00-0500Heart rate72 /minMuhammad Sarmini [address] [place], [place] 8758212-04-2024 13:00-0500Mean blood mm[Hg]Salazar Sarmini [address] [place], [place] 8758212-04-2024 13:00-3888SgE0% (BldA) [Mass fraction]97 %Salazar Sarmini [address] [place], [place] 8758212-04-2024 13:00-0500 Systolic blood mm[Hg]Salazar Sarmini [address] [place], [place] 8758212-04-2024 12:50-0500Body gomnsmpmiws41.24 [degF]Salazar Sarmini [address]12-04-2024 12:44-0500 Respiratory rate18 /minMuhammad Sarmini [address] [place], [place] 8758212-04-2024 12:40-0500 Respiratory rate19 /minMuhammad Sarmini [address] [place], [place] 8758212-04-2024 12:35-0500 Respiratory rate19 /minMuhammad Sarmini [address] [place], [place] 8758212-04-2024 10:59-0500Blood Pressure LocationMuhammad Sarmini [address] [place], [place] 8758212-04-2024 10:59-0500Body xztahhnuarc45.24 [degF]Salazar Sarmini [address] [place], [place] 8758210-23-2024 08:58-0400Blood Pressure LocationMuhammad Sarmini [phone]-Codpo[address] [place] [address] Digestive Ahkfja99-14-0142 08:58-0400Diastolic blood mm[Hg]Salazar Sarmini 179-9807Bwpyos-BwzylKindred Healthcare10-23-2024 08:58-0400Heart rate84 /minMuhammad Sarmini 415-2506Nrtivb-QskxqKindred Healthcare10-23-2024 08:58-0400Respiratory rate16 /minMuhammad Sarmini 594-9301Zohbnw-YeideKindred Healthcare10-23-2024 08:58-0400Systolic blood tsaicbka462 mm[Hg]Salazar Sarmini [phone]-WpvhfKindred Healthcare10-23-2024 08:49-0400Blood Pressure LocationMuhammad Sarmini 272-8139Gktwxq-EybhdKindred Healthcare10-23-2024 08:49-0400Respiratory rate16 /minMuhammad Sarmini 230-8770Nxvdsx-ZlnqkKindred Healthcare07-25-2023 09:00-0400Body rkizuv445.97 cmLaurita Morales Other [employer] Other 07-25-2023 09:00-0400Body mass index (BMI) [Ratio] 36.74 kg/s7YwainiLaurita Morales Other [employer] Other 07-25-2023 09:00-0400Body mbyeii50.03 kgLaurita Morales Other [employer] Other 07-25-2023 09:00-0400Diastolic blood uxhmeder26 mm[Hg] Laurita Morales Other [employer] Other 07-25-2023 09:00-8873AeR1% (BldA) [Mass fraction]97 % Laurita Morales Other [employer] Other 07-25-2023 09:00-0400Systolic blood tmiawfhu806 mm[Hg] Laurita Morales Other [employer] Other 01-19-2023 10:30-0500Body prkvuv791.97 cmLaurita Carmen Other [employer] Other 01-19-2023 10:30-0500Body mass index (BMI) [Ratio] 36.06 kg/b8Igoctz Carmen Other [facility] [employer] Other 01-19-2023 10:30-0500Body nvzizd17.67 kgLaurita Carmen Other [employer] Other 01-19-2023 10:30-0500Diastolic blood idzjbjvq73 mm[Hg] Laurita Morales Other [place] [employer] Other 01-19-2023 10:30-0440MdL3% (BldA) [Mass fraction]98 % Laurita Morales Other [employer] Other 01-19-2023 10:30-0500Systolic blood mm[Hg] Laurita Morales Other [facility] [employer] Other 09-28-2022 10:17-0400Diastolic blood xpaenuep46 mm[Hg] Capri SYEDThoughtBox [phone]-SkjfgKindred Healthcare09-28-2022 10:17-0400Mean blood zpirgllw98 mm[Hg]Farooq Cloopen [phone]-LtcmoKindred Healthcare09-28-2022 10:17-0400Systolic blood umgqagoe353 mm[Hg]Farooq SALAM 386-7569Mvlolx-EiafrKindred Healthcare09-28-2022 10:15-0400Blood Pressure LocationMaher SALAM [phone]-LdyslKindred Healthcare09-28-2022 10:15-0400Diastolic blood gguvncuj03 mm[Hg]Farooq SALAM [phone]-HnorkKindred Healthcare09-28-2022 10:15-0400Heart rate78 /minMaher SALAM 026-7467Cktowk-MzwxiKindred Healthcare09-28-2022 10:15-0400Respiratory rate16 /minMaher SALAM [phone]-UcrbdKindred Healthcare09-28-2022 10:15-0400Systolic blood sruyqcfb159 mm[Hg]Farooq SALAM 805-3895Xkjanu-WrvptKindred Healthcare03-30-2022 11:11-0400Diastolic blood xkzypvgh95 mm[Hg]Farooq SALAM 135-8951Yaclpq-KfzdgOhiohealth [facility] Dig[facility]ive [facility] 340013-98-8461 11:11-0400Systolic blood mm[Hg] [facility] SALAM [phone]-HqrepKindred Healthcare Encounters Encounter DateEncounter TypeCare ProviderFacilityStart: 12-10-2024 End: 67-55-3824lepsvrhssjEmlosj E Braun MD Work Phone: 1([phone] 478-6920917-2172-[facility] NeurosurgeryStart: 12-10-2024 End: 78-35-9327Nuflehb encounter procedureEric Geri Segal DO-[facility] Neurosurgery Work Phone: start: 69-88-4709Ydq-patient / Non-visitCory Morales MD-[facility] Work Phone: start: 12-40-6818Uro-patient / Non-visitCatnoe Victoria CMAMarion [facility] Work Phone: Start: 66-15-5290Skg-patient / Non-visitEric N ArpitaCheyenne County Hospital Work Phone: start: 11-26-2024 End: 87-26-2234Jrkuaefxjc and management of inpatientEric N Luzma [facility]: 17-34-0698Ewbvqmztaecpl examination Akin Morales MD Work Phone: [facility] Camp[facility]art: 11-20-2024 End: 89-08-1110uhxqxlduqiOenydi E Braun MD Work Phone: [facility] Work Phone: Start: 11-20-2024 End: 50-05-8064Wjkfins encounter procedureEric [facility] Work Phone: start: 11-19-2024 End: 92-43-6572gaqndfrsylVbymfc E Braun MD Work Phone: [facility] Work Phone: Start: 11-19-2024 End: 09-28-6680Jvzerkd encounter procedureLaurita Morales MD-[facility] Work Phone: Start: 11-19-2024 End: 42-12-3360Jsllaydvelavy examination Akin Morales MDKettering Health Main Campustart: 11-12-2024 End: 47-67-1697Namrdyo encounter procedureEric Ector [facility] Work Phone: Start: 11-12-2024 End: 01-65-3950xjzwrtfskmNtfzpt E Braun MD Work Phone: [facility] Work Phone: Start: 97-22-2416Oflrkjgky for preprocedural laboratory examinationEric [facility] Physician GroupStart: 11-04-2024 End: 86-14-6547yrvrrnnthoJaarir E Braun MD Work Phone: [facility] Work Phone: Start: 11-04-2024 End: 70-33-6526Czezktk encounter procedureEric N [facility]pitaT[facility] Work Phone: start: 10-28-2024 End: 29-27-1495oviunuetnfNjnadt E Braun MD Work Phone: [facility] Work Phone: Start: 10-28-2024 End: 45-28-9485Gbkitja encounter procedureChristopher Joana Alvarez DO-[facility] Neurology [place] Work Phone: Start: 67-95-9479Mck-patient / Non-visitLaurita Morales MD-[facility] [place] Work Phone: Start: 10-19-2024 End: 76-40-9522Ffyoktt encounter procedureLaurita Morales MD-[facility] Work Phone: Start: 09-30-2024 End: 97-07-4483oviqqfvzjgZthmir E Braun MD Work Phone: [facility] Work Phone: Start: 09-30-2024 End: 93-55-2124Ntlmyfp encounter procedureEric N EctorGarfield [facility] Public [facility] Work Phone: start: 08-20-2024 End: 15-11-4259Qzwjtk flowsheetDolly ORR Work Phone: [facility] SWS ORTHOStart: 08-20-2024 End: 47-93-9894Wtywxx flowsDonny ORR Work Phone: [facility] SWS ORTHOStart: 08-20-2024 End: 45-50-6639Dwootr follow up visit related to original Keanu ORR Work Phone: [facility] SWS ORTHOComment on above:S/P right knee arthroscopy (Primary Dx)Start: 08-20-2024 End: 28-02-8636zldhzcxfncCJSXLYW J MEYERNot AvailableStart: 08-10-2024 End: 43-27-2622artrohjuyeKdzzkww Vytautas Giedraitis MDFacility:PM [place] Start: 07-22-2024 End: 22-93-0889Yurbwy flowsheetDolly ORR Work Phone: n[facility] FB ORTHOPAEDICSStart: 07-22-2024 End: 28-30-6389Pjsyta flowsDonny ORR Work Phone: n[facility] FB ORTHOPAEDICSStart: 07-22-2024 End: 36-61-3383Izwaht follow up visit related to original pxDolly ORR Work Phone: noms FB ORTHOPAEDICSComment on above:S/P right knee arthroscopy (Primary Dx)Start: 07-22-2024 End: 70-10-1589wafpymytplCBOXEBM J MEYERNot AvailableStart: 07-03-2024 End: 26-27-4079StyehqLeogt T Olsen NP Work Phone: noms FB ORTHOPAEDICSComment on above:Acute medial meniscus tear of right knee, initial encounter (Primary Dx)Start: 06-30-2024 End: 43-60-7584Reqsnv flowsheetSammantha Bull PTNOMS CI PTStart: 06-30-2024 End: 43-29-9637Dlmfjp flowsheetSammantha Bull PTNOMS CI PTStart: 06-30-2024 End: 94-84-8582lzjgudztroLhhmhhhps Bull PTNOMS CI PTComment on above:Pre-op examination (Primary Dx); Localized osteoarthritis of right kneeStart: 06-30-2024 End: 85-83-4081Tkebilqwkwujy examination doneSammantha Bull PTNOMS HealthcareStart: 06-24-2024 End: 31-98-6113Xsxoxqyvn Result EncounterMahumberto ORR Work Phone: noms External Department UnsolicitedStart: 06-24-2024 End: 87-58-4859Osfxbxyht Result EncounterMahumberto ORR Work Phone: noms External Department UnsolicitedStart: 06-23-2024 End: 46-30-0803Udvvve flowsheetDolly ORR Work Phone: noms FB ORTHOPAEDICSStart: 06-23-2024 End: 59-20-6307Ujoyln flowsheetDolly ORR Work Phone: noms FB ORTHOPAEDICSStart: 06-23-2024 End: 33-21-3341Nwxvrzl encounter procedureMahumberto ORR Work Phone: noms FB ORTHOPAEDICSComment on above:Pre-op examination (Primary Dx)Start: 06-23-2024 End: 85-24-7634Fpbgmohxuzvve examination doneDolly ORR Work Phone: noms HealthcareStart: 06-23-2024 End: 06-47-1795alscqebdsnTTIPYJK J MEYERNot AvailableStart: 05-13-2024 End: 67-05-2499Myupwq flowsheetJr. Larissa Guerrero DO Work Phone: [facility] ORTHOStart: 05-13-2024 End: 33-35-8472Knesxj flowsheetJr. Larissa Guerrero DO Work Phone: noms [facility] ORTHOStart: 05-13-2024 End: 85-06-1876Vyecdf outpatient visit 25 minutesJr. Larissa Guerrero DO Work Phone: noms [facility] ORTHOComment on above:Acute pain of right knee (Primary Dx); Acute medial meniscus tear of right knee, initial encounterStart: 05-13-2024 End: 63-83-2032pdqfjehnabDLLARISSA Quiles AvailableStart: 05-04-2024 End: 69-68-1137kzjhzntwixCqzfupg Vytautas Giedraitis MDFacility:PM [place] Start: 04-21-2024 End: 41-04-0447trwabulwabOozohrhrzProMedica [facility] Work Phone: Start: 04-21-2024 End: 38-54-9548Xcbwzru encounter procedureUnc [facility] GroupMar[facility] Work Phone: Start: 04-15-2024 End: 44-58-4137Sxcogx outpatient visit 25 minutesJr. Larissa Guerrero DO Work Phone: noms SWS ORTHOComment on above:Acute pain of left knee (Primary Dx); Acute pain of right knee; Acute medial meniscus tear of right knee, initial encounterStart: 04-15-2024 End: 42-78-1616Fezwrm flowsheetJr. Larissa Guerrero DO Work Phone: noms SWS ORTHOStart: 04-15-2024 End: 17-42-5664Hignau flowsheetJr. Larissa Guerrero DO Work Phone: noms SWS ORTHOStart: 04-15-2024 End: 71-21-8429fslvklcygnRG.LARISSA AvailableStart: 03-20-2024 End: 21-93-7126bvfupyxtpxVqyurmvw Talal SarminiFacility:[facility] DHStart: 03-20-2024 End: 92-18-5638Tlxwbyu encounter procedureMuhammad Talal Sarmini [phone]-GcqjuOhiohealth Riverside [facility] Start: 03-18-2024 End: 44-37-6155Mlumhb outpatient visit 15 minutesJr. Larissa Guerrero DO Work Phone: noms SWS ORTHOComment on above:Left knee pain, unspecified chronicity (Primary Dx); Internal derangement of left knee; Arthritis of left kneeStart: 03-18-2024 End: 27-14-5671aukjypbjcjFQLARISSA Quiles AvailableStart: 03-02-2024 End: 40-22-8270Pvpklchtk encounterMaria Peña Giordano [employer] I POLICE SERGEANT Work Phone: noms SWS ORTHOComment on above:MRIStart: 02-17-2024 End: 24-38-2245Klqtbg flowsheetMaria B Apling [employer]CIN[employer] POL[employer] SERGEANT Work Phone: noms CI ORTHOPAEDICSStart: 02-17-2024 End: 78-93-8892Zecqdc flowsheetMaria B Apling [employer]GEANT Work Phone: noms CI ORTHOPAEDICSStart: 02-17-2024 End: 24-16-1025Crrafq outpatient visit 15 minutesMaria B Apling [employer] POL[employer]GEANT Work Phone: noms CI ORTHOPAEDICSComment on above:S/P left knee arthroscopy (Primary Dx); Left knee pain, unspecified chronicity; Arthritis of left knee; Internal derangement of left kneeStart: 02-17-2024 End: 42-46-7281ccuukchalvEGMQK B APLINGNot AvailableStart: 01-30-2024 End: 87-66-6339kzaahnhpjqUzmhhdfs Talal SarminiFacility:[facility] DHStart: 01-30-2024 End: 45-55-3285Smxzoqs encounter procedureMuhammad Talal Sarmini [phone]-CekquSelect Medical Specialty [facility] Start: 01-20-2024 End: 29-40-2785Kvyppn flowsheetMaria B Apling [employer]CIN[employer] POLICE SERGEANT Work Phone: noms CI ORTHOPAEDICSStart: 01-20-2024 End: 58-66-6127Bgxubq flowsheetMaria B Apling [employer] POL[employer] SERGEANT Work Phone: noms CI ORTHOPAEDICSStart: 01-20-2024 End: 83-96-5292Sethtc outpatient visit 25 minutesMaria B Apling [employer] POLICE SERGEANT Work Phone: noms CI ORTHOPAEDICSComment on above:S/P left knee arthroscopy (Primary Dx); Left knee pain, unspecified chronicity; Arthritis of left kneeStart: 01-20-2024 End: 01-45-6956jvmxhdtrkxLNJUD B APLINGNot AvailableStart: 01-15-2024 End: 55-96-1023Geanzpf encounter procedureMuhammad Talal Sarmini [facility] Start: 12-31-2023 End: 38-30-6810Wjobkw flowsbridgetAbhi Yessi Katie [employer] POL[employer]GEANT Work Phone: noms CI ORTHOPAEDICSStart: 12-31-2023 End: 71-23-6993Ajkuyx flowsbridgetAbhi Ramires [employer]CIN[employer] I POLICE SERGEANT Work Phone: NOCV CI ORTHOPAEDICSStart: 12-31-2023 End: 68-65-5865Amhnec follow up visit related to original meliAbhi Yessi Katie [employer] POLICE SERGEANT Work Phone: noms CI ORTHOPAEDICSComment on above:S/P left knee arthroscopy (Primary Dx); Left knee pain, unspecified chronicityStart: 12-31-2023 End: 64-54-9478auksgjgafcPRVXA T OLSENNot AvailableStart: 12-06-2023 End: 30-96-3171pygiyacazkCcsrkngy Talal SarminiFacility:FTMCStart: 12-06-2023 End: 78-97-5084Ync Drop offMuhammad Talal Sarmini [facility] Start: 12-04-2023 End: 03-62-0802uagyrzikckFlbgsfgz Talal SarminiFacility:FTMCStart: 12-04-2023 End: 45-82-7137Fshenle encounter procedureMuhammad Talal Sarmini [facility] Start: 10-49-5548qmgrgcrnkrXyxjaavv Talal Sarmini Facility:[facility] DHStart: 12-04-2023 End: 70-65-3097Rjnfzus encounter procedureMuhammad Talal Sarmini [phone]-HtmmbOhiohealth Riverside [facility] Hospital Digestive Health Start: 98-82-0311lakzhvixusLzxssxec SarminiFacility:GS BellevueStart: 11-13-2023 End: 11-45-3995Ecpuet flowsheetMaria B Apling [employer] POL[employer] SERGEANT Work Phone: noMS CI ORTHOPAEDICSStart: 11-13-2023 End: 21-42-7046Owaejl flowsheetMaria B Apling [employer] SERGEANT Work Phone: noms CI ORTHOPAEDICSStart: 11-13-2023 End: 63-97-2938Xhwisf follow up visit related to original pxMaria B Apling [employer]CIN[employer] I POLICE SERGEANT Work Phone: NOKD CI ORTHOPAEDICSComment on above:Arthritis of left knee (Primary Dx); S/P left knee arthroscopyStart: 11-13-2023 End: 16-70-6840cqqxzwentnQJUQV B APLINGNot AvailableStart: 10-16-2023 End: 45-42-3283Eqtbtq flowsheetMaria B Apling [employer] I POLICE SERGEANT Work Phone: noms CI ORTHOPAEDICSStart: 10-16-2023 End: 33-29-1273Qlrsie flowsheetMaria B Apling [employer]CIN[employer] I POLICE SERGEANT Work Phone: noms CI ORTHOPAEDICSStart: 10-16-2023 End: 64-04-3402Ykrzyb follow up visit related to original pxMaria B Apling [employer]CIN[employer] I POLICE SERGEANT Work Phone: noms CI ORTHOPAEDICSComment on above:Arthritis of left knee (Primary Dx); S/P left knee arthroscopyStart: 10-16-2023 End: 38-67-9639cncijpnzjjAUAOS B APLINGNot AvailableStart: 10-08-2023 End: 90-95-4874YfisfzJzvhn T Olsen [employer]CIN[employer] I POLICE SERGEANT Work Phone: noms FB ORTHOPAEDICSComment on above:Post-op pain (Primary Dx)Start: 09-10-2023 End: 89-71-4909pwhmntirheWHMVF A HUDDLESTONNot AvailableStart: 39-15-5632Gdxelhx encounter procedureKettering Health Main Campustart: 08-26-2023 End: 98-81-4335zggzajfdptMPEIC B APLINGNot AvailableStart: 03-07-2023 End: 08-51-1957uoqgdtrlfqXuiqdf Morales Other [employer] Other Start: 95-54-0614Yitxsb outpatient visit 15 minutes Laurita Galarza [facility] ClinicStart: 09-20-2022 End: 69-11-4770zfagdnxtapRtwcxb Morales Other [employer] Other Start: 36-90-5935Zxavdrdae encounterMarsudhakar Turner [facility] ClinicStart: 09-04-2022 End: 33-29-6384wqzdekzykpDfswtk Morales Other [employer] Other Start: 63-08-2880Usfsaeu encounter procedureMarcimari MoralesBarney Children's Medical Center ClinicStart: 46-46-5074olpyfincwdVN LAURITA MORALES Facility:K5Cmvhu: 03-01-2022 End: 06-65-7435ngendlkbanEventi Morales Other [employer] Other Start: 47-35-3970Eothro outpatient visit 15 minutes Laurita Turner [facility] ClinicStart: 01-18-2022 End: 33-43-7236gujumavugnUU LAURITA MORALESFacility:P2Fwemd: 11-21-2021 End: 44-71-3445nfmphuwhfjXWBIK SALAMFacility:I1Ulqam: 11-08-2021 End: 00-32-5587Qdkbfxf encounter procedureMaher SALAM [phone]-BjafqOhiohealth Riverside [facility] Hospital [facility]est[facility] Health Start: 10-19-2021 End: 05-33-6804pxfokqevlgHM LAURITA MORALESFacility:U2Jomlx: 09-27-2021 End: 56-33-5729jlevgjjcvrUI LAURITA MORALESFacility:H0Iiltg: 09-26-2021 End: 45-99-7705nfjkyfxdbcNW LAURITA E BRAUNFacility:Y1Ripsc: 46-68-3954Qiryntevt for preprocedural laboratory examinationDR RADHA Whitfield [facility] Start: 09-22-2021 End: 89-76-7924mcjdelysxzOR LAURITA E BRAUNFacility:Z9Xfcdi: 09-22-2021 End: 38-42-7027Qadanhudv for preprocedural laboratory examinationDR LAURITA MORALESFacility:L4Dlcax: 79-34-3553khtpejffwiGK LAURITA E BRAUNFacility:F0Qcjyq: 09-06-2021 End: 69-55-6548sxvegzrmhcIPIG SOLISFacility:O4Qnwcg: 63-54-4614Boqro health examinationMlaiamari Carmen Other [employer] Other Start: 06-22-2021 End: 07-78-0866orzotkblvyACUKR SALAMFacility:C5Viryp: 05-26-2021 End: 38-71-0067Tkidiwj encounter procedureMD Cy DeRiso Work Phone: [facility] Start: 05-22-2021 End: 35-85-5040sjacxdtltnOS LAURITA E CARMENFacility:A0Cvhrd: 05-10-2021 End: 48-16-8256Oeoeqko encounter procedureMaher SALAM [phone]-SwzxtOhiohealth Riverside [facility] Hospital Digestive Health Start: 05-04-2021 End: 16-61-6001Xityrtd encounter procedureMD Cy DeRiso Work Phone: [facility] CampusStart: 04-20-2021 End: 62-19-9231zluyqhyqoxEFFZJ SALAMFacility:W2Islud: 04-01-2021 End: 25-53-0097dactpovknlQE LAURITA E CARMENFacility:R0Tnpfh: 03-23-2021 End: 42-35-3368txaxrvwcyaHJ LAURITA E CARMENFacility:H7Qkhvl: 03-09-2021 End: 16-81-8157ndudxpklcnRK LAURITA MORALESFacility:H1 Procedures DateProcedureProcedure DetailPerforming ClinicianStart: 25-40-9862Nqiaxocy screenMarfigueroaa CarmenComment on above:Order Comment: Date of Surgery: [id number] Result Comment: PERFORMED BY: [facility] [place] [address] PATHOLOGIST FRONT END DEVELOPER MEGAN BENDER M.D.Start: 78-44-9565IVU BASIC METABOLIC PANELMatthew Andre Veras PA Work Phone: Start: 52-75-7519Ajbnwbdcjl examination knee 1/2 views Jr. Larissa Hurley Stepanic DO Work Phone: Start: 35-71-9694BrcfugxrshtFnsus Apling [employer]ICE SERGEANT Work Phone: Start: 56-96-2974XrcvkzbiiffXnowehjl Sarmini Start: 60-44-6746MexsharprzqvdfumwmzgolleoySkzjkbrs Sarmini Start: 69-19-5853Uswo of meniscus of knee (disorder) Salazar Sarmini Start: 10-28-7526Xnzbvub of thyroidectomyStatus post total thyroidectomyGrant Katie [employer]ICE SERGEANT Work Phone: Start: 32-71-9127ZhmjvcmwasgKsgod Ramires [employer]CIN[employer] I POLICE SERGEANT Work Phone: Start: 32-12-4830Aapxfpmtdqo w/biopsy single/multiple Farooq SALAM ColonoscopyMaher SALAM History of appendectomyMuhammad Sarmini History of thyroidectomyMuhammad Sarmini Screening for malignant neoplasm of breastEmilycimari Morales Other Plan of Treatment DateCare ActivityDetailAuthorStart: 11-36-9563Klbypzazi for malignant neoplasm of colonNOMS HealthcareStart: 13-65-8207Zurcxgibp for malignant neoplasm of colonNOMS HealthcareStart: 82-52-4383BshzaltxhKettering Health Main Campustart: 68-75-4576Bskdbzdm admissionKettering Health Main Campustart: 10-12-2024 Influenza vaccinationInfluenza Vaccine (#1)[facility] HealthcareStart: 09-30-2024 [facility] Work Phone: Start: 08-20-2024 End: 49-71-9995Yvplcet encounter procedureNOMS SWS ORTHOComment on above:S/P right knee arthroscopy (Primary Dx)Start: 07-22-2024 End: 47-71-6896Kjpczgq encounter procedureNOMS FB ORTHOPAEDICSComment on above: S/P right knee arthroscopy (Primary Dx)Start: 07-21-2024 End: 42-30-2844Pinkpwm encounter ftzhfunxz07/10/2025 11:15 AM EDT Office Visit [facility] [address] [place] [address] Dolly Veras, PA [address] [facility] [address] [place] [address] N[facility] FB ORTHOPAEDICSStart: 06-30-2024 End: 79-63-5270wvbortvfil44/20/2025 9:30 AM EDT Evaluation [facility] [address] [facility] [address] [place] [id number] Sofia Bull PTNOMS CI PTStart: 06-23-2024 End: 30-65-9951Ascfd metabolic 1998 panel - Serum or PlasmaBasic metabolic panel Lab Routine Pre-op examination Expected: 06/23/2024 (Approximate), Expires: [facility] Work Phone: Comment on above:Expected: 06/23/2024 (Approximate), Expires: 06/23/2025Start: 06-23-2024 End: 20-07-9708Fwxmxpi encounter procedureNOMS FB ORTHOPAEDICSComment on above: Pre-op examination (Primary Dx)Start: 05-13-2024 End: 44-98-6689Utywyxk encounter procedureNOMS SWS ORTHOComment on above:Arrived Start: 04-15-2024 End: 51-54-1300Snonteg encounter /05/2025 2:15 PM EST Office Visit [facility] [address] [place] [address] Jr. Larissa Guerrero, [address] [place] [address] Acute pain of left kneeNOMS SWS ORTHO Comment on above:Acute pain of left kneeStart: 02-17-2024 End: 94-95-0034BQ Knee - left WO contrastMR knee left wo IV contrast Imaging Routine Internal derangement of left knee Expected: 02/17/2024 (Approximate), Expires: 02/16/2025[facility] Work Phone: Comment on above:Expected: 02/17/2024 (Approximate), Expires: 02/16/2025Start: 02-17-2024 End: 05-14-2160Uhtrvpk encounter wefkefxmd94/06/2025 9:45 AM EST Office Visit [facility] [address] [place] [address] Adali Giordano, MACI [address] [place] [address] S/P left knee arthroscopy (Primary Dx); Left knee pain, unspecified chronicity; Arthritis of left kneeNOMS CI ORTHOPAEDICSComment on above:S/P left knee arthroscopy (Primary Dx); Left knee pain, unspecified chronicity; Arthritis of left kneeStart: 01-20-2024 End: 87-56-2278Ondpswy encounter procedureNOMS CI ORTHOPAEDICSComment on above: S/P left knee arthroscopy (Primary Dx); Left knee pain, unspecified chronicity; Arthritis of left kneeStart: 12-31-2023 End: 67-22-3814Cjiuwro encounter tyzqjcigy08/19/2024 10:45 AM EST Office Visit [facility] [address] [place] [address] Abhi Ramires, PRECIN[employer] I POLICE SERGEANT [address] [place] [address] ArrivedNOMS CI ORTHOPAEDICSComment on above:Arrived Start: 11-13-2023 End: 51-61-5745Ixyaljj encounter procedureNOMS CI ORTHOPAEDICSComment on above: Arthritis of left knee (Primary Dx); S/P left knee arthroscopyStart: 10-16-2023 End: 04-36-6107Kzbrmfh encounter procedureNOMS CI ORTHOPAEDICSComment on above: ArrivedStart: 67-59-6908Envkxrudk vaccinationInfluenza Vaccine (#1)[facility] HealthcareStart: 10-09-2023 End: 44-63-3354Svnejaf encounter monpilbko49/28/2024 11:30 AM EDT Procedure Visit [facility] EXT DEP Danielle Curran DO [address] [place] [address] [facility]OMS EXT DEPStart: 1948 Screening for malignant neoplasm of colonNOMS HealthcareComprehensive metabolic 2000 panel - Serum or PlasmaBerger HospitalCT Lumbar spine WO contrastBerger HospitalDXA Skeletal system.axial Views for bone densityBerger HospitalPatient EducationKnow your [facility] Work Phone: [facility] referralSamaritan Hospital Work Phone: XR Foot - right GE 3 ViewsBerger HospitalXR Lumbar spine ViewsAdventHealth Carrollwood Immunizations Immunization DateImmunizationNotesCare GthuidwpSykthmvk11-73-0206wgujiinbn, high dose seasonal, preservative-freeLaurita Morales MD Work Phone: [facility]10-02-2024influenza virus vaccine, unspecified formulationMartin Tatum [phone]-LrsbiOhiohealth Riverside Methodist Hospital Digestive Bzcllm06-61-9981 ABRYSVO - Respiratory syncytial virus (RSV), vaccine, bivalent, protein subunit RSV prefusion F, diluent reconstituted, 0.5 mL, PFGrant Ramires [employer]CIN[employer] I POLICE SERGEANT Work Phone: [facility] CareOoioqoaivk63-72-7200UALA-LVT-6 (COVID-19) vaccine, mRNA, spike protein, LNP, PF, 50 mcg/0.5 mLGrant Ramires PRECINCT I POLICE SERGEANT Work Phone: [facility] CareEdwplzglwv86-20-7733Ezmpmbkbl, Seasonal, Quadrivalent, AdjuvantedGrant Ramires PRECINCT I POLICE SERGEANT Work Phone: [phone] Health CareDkpgzyeslw64-58-8728pgmhecmch virus vaccine, unspecified formulationGrant Ramires PRECINCT I POLICE SERGEANT Work Phone: Oqdxml-Cuhsv[address] [place] [address] Digestive Xjpeoc72-89-6004 zoster vaccine recombinantGrant Ramires PRECINCT I POLICE SERGEANT Work Phone: [facility] CareHqgwzsxvbq59-97-9905ivhilm vaccine recombinant Abhi Ramires PRECINCT I POLICE SERGEANT Work Phone: [facility] CareDvqnjrkjiw36-34-9715jzphrbcyb virus vaccine, unspecified formulationMuhammad Levymini [phone]-XpdhqOhiohealth Riverside [facility]estive Meopxg16-47-1713 Seasonal trivalent influenza vaccine, adjuvanted, preservative freeGrant Ramires PRECINCT I POLICE SERGEANT Work Phone: [facility] CareKzthyvxzgx92-31-3267APQB-HqE-0 (COVID-19) mRNAMUL.ORD!a19406Bpqepeht Sarmini [phone]-ThepfOhiohealth Riverside [facility] Hospital Digestive [facility] Medical CenterComment on above:Result Comment: 2023-12-03: [id number]-97 mRNA-1273 (Moderna)MD Cy Sears Work Phone: [facility] HospitalComment on above: Result Comment: 2023-12-03: [id number] virus vaccine, split virus (incl. purified surface antigen)Laurita Morales Other [phone] [employer] Other [id number] virus vaccine, unspecified formulationGrant Ramires PRECINCT I POLICE SERGEANT Work Phone: [facility] CareEjliudqjpv64-34-0639oesjzbbid virus vaccine, unspecified formulationMaher SALAM [phone]-GseipOhiohealth Riverside Methodist Hospital Digestive Health 413473-02-7401YONZT-07 mRNA-1273 (Moderna)MD Cy Sears Work Phone: [facility]02-18-2021SARS-CoV-2 (COVID-19) mRNA-1273 vaccineMuhammad Sarmini [phone]-BhpkaOhiohealth Riverside Methodist Hospital Digestive Qeymus08-91-6692 COVID-19 mRNA-1273 (Moderna)MD Cy Sears Work Phone: [facility]10-09-2020influenza virus vaccine, split virus (incl. purified surface antigen)Laurita Morales Other [facility] [employer] Other 10815180-05-3101rrefcyisr virus vaccine, unspecified formulationGrant Ramires PRECINCT I POLICE SERGEANT Work Phone: [facility] CareQjvqjzknjd89-19-5148tcktvl vaccine, liveGrant Ramires PRECINCT I POLICE SERGEANT Work Phone: [facility] CareSsxjkinfzm26-33-3999ywbznetzkzdu polysaccharide vaccine, 23 valentGrant Ramires PRECINCT I POLICE SERGEANT Work Phone: [facility] CareLzinoinqdb85-41-1452rgvdygvse virus vaccine, unspecified formulationMuhammad Sarmini [phone]-HjxwrOhiohealth Riverside [facility] Hospital Digestive Fxntvo70-34-8517 pneumococcal polysaccharide vaccine, 23 valentGrant Ramires PRECINCT I POLICE SERGEANT Work Phone: [facility] CareDtqvtfptxb77-07-0550Yimrdtbh trivalent influenza vaccine, adjuvanted, preservative freeGrant Katie PRECINCT I POLICE SERGEANT Work Phone: [facility] CareLwugmywppk71-88-9903cqmaviehh virus vaccine, split virus (incl. purified surface antigen)Laurita Carmen Other noM[employer] Other [id number] virus vaccine, unspecified formulationMuhammad Sarmini [phone]-YyhvzKindred Healthcare09-13-2017 influenza, high dose seasonal, preservative-freeFermint Katie PRECINCT I POLICE SERGEANT Work Phone: [facility] CareRpefbojxhz88-57-8401hgofmhtesuzh conjugate vaccine, 13 valentMarcia Morales Other [facility] [employer] Other 09109966-60-2265eoljknfwb virus vaccine, unspecified formulationMuhammad Sarmini [phone]-AqpktKindred Healthcare09-27-2016 Seasonal trivalent influenza vaccine, adjuvanted, preservative freeAbhi Ramires PRECINCT I POLICE SERGEANT Work Phone: [facility] CareVbolugmxfo38-04-6154fnrrjzhiu virus vaccine, unspecified formulationMuhammad Sarmini [phone]-OztxmKindred Healthcare10-06-2015 influenza, seasonal, injectable, preservative freeAbhi Ramires PRECINCT I POLICE SERGEANT Work Phone: noMercy Hospital JoplinEnqlecofat32-90-8426qwlklak and diphtheria toxoids, adsorbed, preservative free, for adult use (5 Lf of tetanus toxoid and 2 Lf of diphtheria toxoid)Abhi Ramires PRECINCT I POLICE SERGEANT Work Phone: [facility] CareXjbnbgyhsm36-36-0360fwwwpvz toxoid, reduced diphtheria toxoid, and acellular pertussis vaccine, adsorbedMarcia Morales Other [place] [employer] Other [phone]ot polysaccharide vaccine, 23 valentMarcia Morales Other [facility] [employer] Other [phone] vaccine, liveGrant Katie PRECINCT I POLICE SERGEANT Work Phone: [facility] CareLpbgydbeit03-77-9489ftxypijab virus vaccine, unspecified formulationMuhameverton Segurai [phone]-YmxonOhiohealth Riverside Methodist Hospital Digestive Pfxqcc93-24-8798 influenza, seasonal, injectableGrant Ramirse PRECINCT I POLICE SERGEANT Work Phone: noMercy Hospital JoplinXladugxwkk57-24-4117rebrilzsw B vaccine, adult dosageGrant Ramires PRECINCT I POLICE SERGEANT Work Phone: [facility] CareRrqdhulmnn02-23-6161rwgfimycv B vaccine, adult dosageGrant Ramires PRECINCT I POLICE SERGEANT Work Phone: [facility] CareRdnfwfwxhm71-11-5827ffhzsckjm B vaccine, adult dosageGrant Ramires PRECINCT I POLICE SERGEANT Work Phone: [facility] CareMawyxayffg90-59-6381PZ(adult) unspecified formulation; Translations: [Td(adult) unspecified formulation]Abhi Ramires [employer] Work Phone: [facility] Health CareNEGATED: Highlighted row has not occurred![id number] virus vaccine, unspecified formulationMaher KUNALAM [phone]-XptkwOhiohealth [facility] Payers DatePayer CategoryPayerPolicy [id number]-[id number] Health Insurance [id number]2-9836Wvoohbi Health Insurance [id number] [id number] 2014Medicare [id number] [id number] 2.16.840.1.338422.3.57[id number] 2.16.840.1.265136.3.57[id number] 2.16.840.1.424965.3.57[id number] 2.16840.1.169331.3.57[id number] 2.16840.1.666067.3.57[id number] 2.16840.1.118879.3.57[id number] 2.840.1.274879.3.579.2.47256-05-1177Dhzuhzw7839927 2.16840.1.398663.3.579.2.78928-56-3683Ybuicxs3622061 2.16840.1.715026.3.579.2.15875-22-5446Vvcpxjh1141288 2.840.1.652878.3.579.2.87716-99-6617Pxfxgbd9669520 2.840.1.030789.3.579.2.58574-03-9448Jhexlhj0097399 2.16840.1.203226.3.579.2.45362-44-8417Sbwlxkk4139163 2.16840.1.795260.3.579.2.91254-30-9187Nuhumgr0117194 2.16840.1.833381.3.579.2.25618-62-7620Dulqrxt1050316 2.16840.1.887673.3.579.2.69529-61-8544Jzmjozk9766258 2.16.840.1.733898.3.579.2.66184-96-5586Knbjfdz4416660 2.16.840.1.576750.3.579.2.76958-08-2084Qstmodf29592774 2.16840.1.220460.3.579.2.76351-08-0236Abzzdim01108951 2.16840.1.041221.3.579.2.29462-84-9903Znnvidz87527792 2.840.1.521181.3.579.2.53384-34-8202Owrvrtc70689363 2.840.1.476507.3.579.2.115738-35-4235Jjyylvr35393482 2.840.1.214044.3.579.2.542939-95-1927Cnjkrkw5720831 2.840.1.336436.3.579.2.678745-49-2747Pomzehu5074538 2.840.1.904957.3.579.2.082996-43-3129Ecvhzyb9817789 2.840.1.453050.3.579.2.863597-12-7412Skvizrh0308665 2.840.1.821557.3.579.2.976683-13-9172Snbxmoo8146641 2.840.1.689786.3.579.2.791359-68-0784Yggmpcz8548856 2.16840.1.137926.3.579.2.115746-15-9835Udmadan3928572 2.16840.1.518136.3.579.2.716498-66-2451Nepylni3729398 2..0.1.884827.3.579.2.189136-95-0372Vzquxvk0924328 2.0.1.005610.3.579.2.636813-51-2830Tsoiijr3068706 2.0.1.116148.3.579.2.393727-78-7444Azrzmut2388093 2.0.1.706941.3.579.2.298670-48-1066Smhhorx6446668 2.0.1.959401.3.579.2.879976-65-2303Kuxopbx7878312 2.0.1.745681.3.579.2.961207-31-1392Vcmnhns9557026 2.0.1.565594.3.579.2.429277-29-5231Xqwyvmz168490140 2.0.1.145781.3.579.2.37688-06-8042Kzssbxq250211225 2.0.1.155814.3.579.2.52618-25-3430Gcbjwms00540908 2.0.1.789834.3.579.2.727Medicare283424219A 030tq186-o9xh-9j89-684y-4s451v988h13Kstdudl85610835 2.0.1.428969.3.579.2.547Tjsfvpo23380576 2.0.1.774398.3.579.2.531 Social History DateTypeDetailFacilityTobacco smoking status NHISUnknown if ever smokedThe [facility] Work Phone: Start: 66-04-1216Tob Assigned At BirthFeClermont County Hospitaltart: 05-10-2021 End: 84-82-1959Fermtcb smoking statusHeavy tobacco smoker (finding)[facility] Start: 09-10-2023 End: 44-40-3598Met Assigned At BirthFemalK[facility] Start: 56-18-1978Vdxxvcu smoking status NHISSmoker (finding)[facility] Camp[facility]: 08-26-2023 End: 47-45-9939Smpgaly smoking status NHISSmokes tobacco dailyNOMS Healthcare History of tobacco useCigarette SmokerNOMS HealthcareStart: 15-96-5607Dcnvcwb use and exposureSmokeless tobacco non-userNOMS HealthcareStart: 09-10-2023 End: 85-37-3096Tolzwkpzs beverage intakeCurrent drinker of alcohol (finding)[facility] HealthcareStart: 09-10-2023 End: 77-70-3847Vomzaye of Social functionNOMS HealthcareStart: 29-12-2838Sra assigned at birthNot on fileNOMS HealthcareTobacco smoking statusNeverSelect Medical [facility] Digestive HealthStart: 20-09-7745Zsrjfcm smoking status NHISEx-smoker (finding)[facility] Campustart: 71-57-3145Iex Female (finding)[facility] Campustart: 43-46-3317Veegojk CommentOccationallyNOMS HealthcareStart: 22-55-4460QFTB Follow upSDOH Follow up [facility] Work Phone: Medical Equipment Procedure CodeEquipment CodeEquipment Original TextEquipment IdentifierDates Spinal fusion graft [id number] FDAStart: 08-50-5073Elai-screw internal spinal fixation system, non-sterile+[id number] FDAStart: 61-38-3289Ybxz-screw internal spinal fixation system, non-sterile +[id number] FDAStart: 63-23-4140Fbwy-screw internal spinal fixation system, non-sterile+[id number] FDAStart: 21-85-8880Ostn-screw internal spinal fixation system, non-sterile+[id number] FDAStart: 71-85-9648Khjxeezzl spinal fusion cage, non-sterile()[id number] FDAStart: 11-26-2024 Polymeric spinal fusion cage, non-sterile()[id number] FDA Start: 02-19-3491Gtof-screw internal spinal fixation system, non-sterile +[id number] FDAStart: 11-26-2024 Functional Status NefzDzmtcketxlClvgaoYebzjoli14-42-8463Spdhldykss StatusN/[facility] Yijtnk95-62-2608Olpavhwtyg StatusN/[facility]12-04-2024Functional StatusN/[facility] 35-53-4629Imdtgreujf StatusN/[facility] 56-70-6630Kqvvkxloyx StatusN/[facility] Clinical Notes 01-24-2021 to 11-27-2024 Note Date & PtqxRkeyEoqwcnfe81-65-1938 Hospital Discharge instructionsAmbulatory Orders* Initiate Home Health Time Frame: 11/27/24, Location: Determined By Patient Additional Instructions DISCHARGE INSTRUCTIONS FOR TRANSFORAMINAL LUMBAR INTERBODY FUSION DIET-regular home diet ACTIVITY - Wear brace when sitting and standing and out of bed - Activity as tolerated; No lifting over 5 pounds - Stairs as tolerated - Walk as much as possible - No driving until seen by physician; may ride in car -May shower Saturday. When taking first shower leave dressing on complete shower remove dressing dry the wound and apply small amount of antibiotic ointment to the wound 1 time daily thereafter - Keep incision clean and dry OTHER - Call your provider's office for any fever, chills, nausea, vomiting, headache, numbness, or tingling. - Call your providers office and make an appointment to see your provider in 2 weeks. Use ice as needed for back spasm 20 minutes every 1-2 hours Use the prednisone provided if the leg pain returns to a significant degree after surgery. If it does not do not use the prednisoneFirelands [facility]tr Work Phone: 1(455) 753-420908-20-2025 Evaluation note* Diagnosis Onset Date Resolution Status Admit Date Right foot pain acuteAugust 2024 9:36amAnxietyacuteSeptember 2024 8:50am Hyperlipidemia, unspecifiedacuteSeptember 2024 8:50amHypothyroidacute October 19, 2024 8:50amMedicare annual wellness visit, subsequentacute October 19, 2024 8:50amRight foot painacuteSeptember 2024 8:50am Ulcerative (chronic) pancolitis without complicationsacuteSept2024 8:50amLumbar radiculopathyacuteSeptember 2024 8:45am [facility] Work Phone: 1(599) 384-498008-20-2025 Evaluation note* Diagnosis Onset Date Resolution Status Admit Date Right foot pain acuteAugust 2024 9:36amAnxietyacuteSeptember 2024 8:50am Hyperlipidemia, unspecifiedacuteSept2024 8:50amHypothyroidacute October 19, 2024 8:50amMedicare annual wellness visit, subsequentacute October 19, 2024 8:50amRight foot painacuteSeptember 2024 8:50am Ulcerative (chronic) pancolitis without complicationsacuteSept2024 8:50amLumbar radiculopathyacuteSeptember 2024 8:45amLumbar radiculopathy acuteSeptember 2024 10:58am [facility] Work Phone: 1(936) 608-532608-20-2025 Evaluation note* Diagnosis Onset Date Resolution Status Admit Date Right foot pain acuteAugust 2024 9:36amAnxietyacuteSeptember 2024 8:50am Hyperlipidemia, unspecifiedacuteSeptember 2024 8:50amHypothyroidacute October 19, 2024 8:50amMedicare annual wellness visit, subsequentacute October 19, 2024 8:50amRight foot painacuteSeptember 2024 8:50am Ulcerative (chronic) pancolitis without complicationsacuteSept2024 8:50amLumbar radiculopathyacuteSeptember 2024 8:45amLumbar radiculopathy acuteSeptember 2024 10:58amLumbar radiculopathyacuteOctober 2024 9:29am [facility] Work Phone: 1(367) 515-937908-20-2025 Evaluation note* Diagnosis Onset Date Resolution Status Admit Date Right foot pain acuteAugust 2024 9:36amAnxietyacuteSeptember 2024 8:50am Hyperlipidemia, unspecifiedacuteSept2024 8:50amHypothyroidacute October 19, 2024 8:50amMedicare annual wellness visit, subsequentacute October 19, 2024 8:50amRight foot painacuteSeptember 2024 8:50am Ulcerative (chronic) pancolitis without complicationsacuteSept2024 8:50amLumbar radiculopathyacuteSeptember 2024 8:45amLumbar radiculopathy acuteSeptember 2024 10:58amAnxietyacuteOctober 2024 9:37am Hyperlipidemia, unspecifiedacuteOctober 2024 9:37amHypothyroidacuteOctober 2024 9:37amLumbar radiculopathyacuteOctober 2024 9:37amPreoperative examinationacuteOctober 2024 9:37amLumbar radiculopathyacuteOctober 2024 9:29amLumbar radiculopathyacuteOctober 2024 5:45am [facility] Work Phone: 1(805) 558-882108-20-2025 Evaluation note* Diagnosis Onset Date Resolution Status Admit Date Right foot pain acuteAugust 2024 9:36amAnxietyacuteSeptember 2024 8:50am Hyperlipidemia, unspecifiedacuteSept2024 8:50amHypothyroidacute October 19, 2024 8:50amMedicare annual wellness visit, subsequentacute October 19, 2024 8:50amRight foot painacuteSept2024 8:50am Ulcerative (chronic) pancolitis without complicationsacuteSeptember 2024 8:50amLumbar radiculopathyacuteSeptember 2024 8:45amLumbar radiculopathy acuteSeptember 2024 10:58amAnxietyacuteOctober 2024 9:37am Hyperlipidemia, unspecifiedacuteOctober 2024 9:37amHypothyroidacuteOctober 2024 9:37amLumbar radiculopathyacuteOctober 2024 9:37amPreoperative examinationacuteOctober 2024 9:37amLumbar radiculopathyacuteOctober 2024 9:29amLumbar radiculopathyacuteOctober 2024 5:45amLumbar radiculopathyacuteOctober 2024 12:58pm [facility] Work Phone: 1(148) 417-170107-10-2025 History of Present illness Narrative* DOMINGA Monroy [...] seeing Dr. Marino and podiatry in [place] before being diagnosed with a pinched nerve [...] requiring urgent evaluation. Visit was preformed using [employer]-helicopter pilot instructor speech recognition. documented in this encounterSSM Health CareFqckyiajmj50-14-8281 History of Present illness Narrative* DOMINGA Monroy [...] requiring urgent evaluation. Visit was preformed using [employer]-helicopter pilot instructor speech recognition. documented in this [facility]06-11-2025 Instructions* Patient Instructions* DOMINGA Monroy - 07/22/2024 [...] more than 10 mins documented in this [facility]05-23-2025 Telephone encounter Note* Telephone Encounter - Abhi Ramires NP - 07/03/2024 7:17 AM EDT Post op pain rx. PDMP reviewed [facility] CareOxzwdhgefv63-90-8313 Miscellaneous Notes* Telephone Encounter - Abhi Ramires NP - 07/03/2024 7:17 AM EDT Post op pain rx. PDMP reviewed documented in this encounterSSM Health CareMzbfnpkfjg84-01-0942 History of Present illness Narrative* DOMINGA Monroy [...] COLONOSCOPY 01/15/24 KNEE ARTHROSCOPY W/ DEBRIDEMENT Left PHILO OTHER SURGICAL HISTORY Right TAMICA CORONA PUT [...] Consult and Treat Referred to Provider: Jason Gifford, PT Requested Specialty: Physical Therapy Number of [...] and proposed surgery scheduled. WALKER SENT TO [facility] IN [place] LAB WORK SENT TO [facility] PRE AUTH MEDICARE APPROVED Follow up in about 4 weeks (around 07/21/2024) for Post-Op July 22 @ 11:15 in the [place] locationwith Dolly Veras. documented in this encounterSSM Health CareFjwfjzauoy44-60-7829 History of Present illness Narrative* Jr. Larissa Guerrero, DO - 05/13/2024 9:00 AM EDT Images from the original note were not included. Jennifer appreciatedHISTORY OF PRESENT ILLNESS: EST PT Alexandra Cervantes is an 74 y.o. @ female. (EST PT) - RECHECK (R) KNEE ; S/P MDP 04/15/24 ; S/P MRI @[facility] 04/24/24 : ADMITS B/L KNEE PAIN - R>L XRAY B/L KNEE 08/26/23 IN EPIC MRI @[facility] 04/24/24 MDP 04/15/24 NO CORTISONE INJ NO PT PAIN MGMT @[facility] (BACK) (R) KNEE: S/P MDP - [...] meniscus noted on MRI from [facility]. Questions answered in laymen terms at the bedside. The diagnosis, home exercise plan and any ongoing restrictions/ recommendations reviewed. If unable to be reached in office, I recommend evaluation at nearest Emergency Room if any symptoms worsened or new symptoms develop for requiring urgent evaluation. documented in this encounterSSM Health CareJbnchlotty82-73-9620 History of Present illness Narrative* Jr. Larissa Guerrero DO - 03/18/2024 10:45 AM EST Images from the original note were not included. HISTORY OF PRESENT ILLNESS: EST PT Alexandra Cervantes is an 74 y.o. @ female. (EST PT) (LAST APPT WITH [facility]) - RECHECK (L) KNEE S/P MRI @[facility] (02/25/24) ; S/P (L) KNEE SCOPE (DR. CURRAN) (10/09/23) (5 MONTHS, 1 WK, 1 DAY) XRAY B/L KNEE 08/26/23 IN EPIC XRAY (L) KNEE (02/09/23) IN CHANGE MRI @[facility] 02/25/24 MDP 12/31/23 (50% IMPROVEMENT) CORTISONE INJ (01/20/24) (70-80% IMPROVEMENT) NO PT PAIN MANAGEMENT @ [facility] (BACK) STATES INJECTION 01/20/24 ONLY LASTED [...] for requiring urgent evaluation. documented in this [facility]01-20-2025 Miscellaneous Notes* Telephone Encounter - Tyra Feliz - 03/02/2024 10:12 AM EST Patient called and left vm requesting a call for here MRI results. documented in this [facility]01-20-2025 Telephone encounter Note* Telephone Encounter - Tyra Feliz - 03/02/2024 10:12 AM EST Patient called and left vm requesting a call for here MRI results. [facility] [id number] History of Present illness Narrative* Adali Giordano [...] f/u s/p MRI to be done at documented in this encounterSSM Health CareXckxhglnxl27-44-4338 Evaluation + Plan note Future Scheduled Tests [...] 03/17/24 * Hepatitis B Surface Antigen 03/17/24 [facility] [id number] History of Present illness Narrative* Adali Giordano [...] and she understands this. documented in this encounterSSM Health CareNtgxfsvrhv93-14-9579 Hospital Discharge instructions Patient Education 01/15/2024 13:05:31 Gastritis, Adult, Ilmm-kz-Ybog Gastritis, Adult Gastritis is irritation and swelling [...] Follow these instructions at home: Medicines Take vboy-bta-shxnubi and prescription medicines only as told by [...] away. Call your local emergency services (911 int [place] Do not wait to see if [...] provider. Document Revised: 06/03/2021 Document Reviewed: 06/03/2021 [employer] Patient Education 2023 [employer] 01/15/2024 13:05:27 Endoscopy, Care After Procedure [facility] ([facility]) Endoscopy Care After Procedure Please read the instructions outlined below and refer to this sheet in the next few weeks. These discharge instructions provide you with general information on [facility] Your doctor may also give you specific [...] blood. Document Released: 09/11/2004 Document Re-Released: 07/22/2006 [facility] Patient Information [employer] 01/15/2024 13:05:22 Hemorrhoids, Ctga-gc-Dxkl Hemorrhoids Hemorrhoids are swollen veins that may [...] Follow these instructions at home: Medicines Take vvww-qkg-msfjjoo and prescription medicines only as told by [...] provider. Document Revised: 10/10/2022 Document Reviewed: 10/10/2022 [employer] Patient Education 2023 [employer] 01/15/2024 13:05:13 Ulcerative Colitis, Adult Ulcerative Colitis, [...] instructions at home: Medicines and vitamins Take oaxm-nlq-ggwfpyp and prescription medicines only as told by [...] and water are not available, use hand retail wireless associate. Stay up to date on your [...] information about ulcerative colitis at the National [place] of Diabetes and Digestive and Kidney Diseases [...] provider. Document Revised: 10/04/2020 Document Reviewed: 10/04/2020 [employer] Patient Education 2023 [employer] 01/15/2024 13:05:09 Colonoscopy, Care After Surgery [facility] (CUSTOM) Colonoscopy Care After Surgery Please read the instructions outlined below and refer to this sheet in the next few weeks. These discharge instructions provide you with general information on caring for yourself after you leave thehospital. Your doctor may also give you specific [...] severe or gets worse throughout the day. [facility] 12-04-2024 Evaluation + Plan noteExtracted from:Title: RAY Post-operative Note---GeneralAuthor:Jose ALARCON, Danielle CanoDate:01/15/24 Plan Transfer/Discharge: Transfer/Discharge Discharge when meets criteria ( To home ). Extracted from:Title:RAY Pre-operative Note uthor:Jose ALARCON, Danielle CanoDate: 01/15/24 Plan [place] [employer] Anesthesiologists (ASA) physical status classification: Class II. Anesthetic Preoperative Plan: Anesthesia General. Extracted from:Title:1Preop H&PAuthor:Martin Tatum MDate:01/15/24 Impression and Plan Impression: Ulcerative colitis, chronic diarrhea Plan: -EGD and Colonoscopy Future Appointments Appointment Date:01/30/2024 01:45:00 PM Scheduled Provider:Martin Tatum MD Location:[facility] Appointment Type:[facility] Follow Up Diagnostic Tests Pending * Enteric Panel by PCR 01/15/24 * Clostridium Difficile PCR 01/15/24 * Hep B Core Ab, Tot 01/15/24 * Hepatitis B Surface Antibody 01/15/24 * Hepatitis B Surface Antigen 01/15/24 * Quantiferon-TB Plus (Client Incubated) 01/15/24 [facility] 11-19-2024 History of Present illness Narrative* Abhi [...] develop for requiring urgent evaluation. 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 documented in this encounterSSM Health CareCwhjyczpcn89-72-1045 History of Present illness Narrative* Adali Giordano [...] as tolerated, f/U prn documented in this encounterSSM Health CareUxeiwetmgv94-29-0601 History of Present illness Narrative* Larissa Mei [...] for requiring urgent evaluation. documented in this encounterSSM Health CareAuovkmuezu53-24-7260 Telephone encounter Note* Telephone Encounter - Abhi Ramires NP - 10/08/2023 3:02 PM EDT Post op pain rx. PDMP reviewed [facility] CareOdbokywrje37-29-3158 Miscellaneous Notes* Telephone Encounter - Abhi Ramires NP - 10/08/2023 3:02 PM EDT Post op pain rx. PDMP reviewed documented in this encounterSSM Health CareBbxyzagqpj47-72-1205 Evaluation note* Encounter Date Diagnosis Assessment Notes [...] exercise as directed, and reduce fat intake. Feb,Hypothyroidism, unspecified (ICD-10 - E03.9)Asymptomatic at this time, Denies any unexplained weight change, hair loss or fatigue. Patient to co ntinue with above medication and we will continue to monitor through routine blood work [facility] Other 08-10-2023 Evaluation note* Encounter Date Diagnosis Assessment Notes Treatment Notes Treatment Clinical Notes Sep, Right foot pain (ICD-10 - M79.67 1) [facility] [employer] Other 07-25-2023 Evaluation note* Encounter Date Diagnosis [...] reviewed and amended by provider signed below. Aug,Right foot pain (ICD-10 - M79.671)Check xray to r/o stress fracture - consider podiatry referral. Aug,Iliotibial band syndrome, left leg (ICD-10 - M76.32)order given to pt for PT. Aug,Iliotibial band syndrome, left leg (ICD-10 - M76.32)order given to pt for PT. Aug,Iliotibial band syndrome, left leg (ICD-10 - M76.32)order given to pt for PT. Aug,Iliotibial band syndrome, left leg (ICD-10 - M76.32)order given to pt for PT. Aug, yslipidemia (ICD-10 - E78.5)Due for labs - continue present med Aug,Screening mammogram for breast cancer (ICD-10 - Z12.31) Feb,Hypothyroidism, unspecified (ICD-10 - E03.9)Chronic problem due for labs. 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 [facility] Other 12-08-2022 NoteCONSULTATION PROCEDURE DATE: 01/18/2022 PREOPERATIVE [...] followed up in the office.[facility] HospitalMmnzwkbu89-88-8914 NoteCONSULTATION CONSULTATION DATE: 01/18/2022 HISTORY OF PRESENT [...] months' time, unless otherwise indicated.[facility] HospitalTjosghej27-08-9273 Evaluation + Plan note Diagnostic Tests Pending * CBC w/ Auto Diff 11/08/21 * Comprehensive Metabolic Panel 11/08/21 [facility] 09-08-2022 NoteCONSULTATION [...] followed up in the office.[facility] 10-19-2021 NoteCONSULTATION CONSULTATION DATE: 10/19/2021 This [...] months' time unless otherwise indicated.[facility] HospitalEqjrctqz61-08-8833 NoteCONSULTATION CONSULTATION DATE: 09/06/2021 HISTORY OF PRESENT [...] 8/10. She has been following up with [facility] and had a benign fibroid tumor [...] patient agrees to move forward.[facility] HospitalFwwjednv48-04-6933 NoteCONSULTATION PAIN MANAGEMENT CONSULTATION HISTORY: This is [...] of care and will call when needed. IFC Signed and Approved by: ROBERTO MCNALLY . 04/27/2021 12:41:00[facility]12-14-2021 Hospital Discharge instructions Follow Up Care 01/24/2021 10:04:31 With:JANINA ALARCON, LENORE Farooq, [facility] Address: [facility] [address] [place] [address]- When:6 months [facility] Evaluation + Plan note Future Appointments Appointment Date:11/08/2021 10:15:00 AM Scheduled Provider:Capri FULLER MD Location:[facility] Appointment Type:[facility] Follow Up Future Scheduled Tests Laboratory* CBC w/ Indices 07/25/20 * Comprehensive Metabolic Panel 07/25/20 [facility] Evaluation + Plan note Future Appointments Appointment Date:01/15/2024 12:00:00 PM Scheduled Provider: Location:[facility] Appointment Type:Surgery FT Appointment Date:01/30/2024 01:45:00 PM Scheduled Provider:Martin Tatum MD Location:[facility] Appointment Type:[facility] Follow Up Future Scheduled Tests Laboratory* O & P Exam, Routine 12/04/23 * Clostridium Difficile PCR 12/04/23 * Enteric Panel by PCR 12/04/23 [facility] Evaluation + Plan note Future Appointments Appointment Date:01/15/2024 12:00:00 PM Scheduled Provider: Location:[facility] Appointment Type:Surgery FT Appointment Date:01/30/2024 01:45:00 PM Scheduled Provider:Martin Tatum MD Location:[facility] Appointment Type:[facility] Follow Up Diagnostic Tests Pending * Celiac Disease Comprehensive 12/04/23 Future Scheduled Tests Laboratory* O & P Exam, Routine 12/04/23 * Clostridium Difficile PCR 12/04/23 * Enteric Panel by PCR 12/04/23 [facility] evaluation + Plan note Future Appointments Appointment Date:01/15/2024 12:00:00 PM Scheduled Provider: Location:[facility] Appointment Type:Surgery FT Appointment Date:01/30/2024 01:45:00 PM Scheduled Provider:Martin Tatum MD Location:[facility] Appointment Type:BAD Follow Up Diagnostic Tests Pending * O & P Exam, Routine 12/06/23 [facility] evaluation + Plan note Future Appointments Appointment Date:04/29/2024 09:15:00 AM Scheduled Provider:Martin Tatum MD Location:[facility] Appointment Type:BAD Follow Up Future Scheduled Tests Laboratory* Calprotectin, Fecal 01/30/24 [facility] evaluhgatj noteNo assessment information available [facility] Work Phone: evalupwlhj note* Diagnosis Arthritis of left knee- Primary [...] of left knee documented in this encounter [facility] HealthcareEvaluation note* Diagnosis Acute pain of left knee- Primary Acute pain of right knee Acute medial meniscus tear of right knee, initial encounter documented in this encounter [facility] HealthcareEvaluation note* Diagnosis Onset Date Resolution Status Admit Date Anxiety acuteMarch 2024 8:49amUlcerative (chronic) pancolitis without complicationsacuteMarch 2024 8:49am [facility] Work Phone: Evaluation note* Diagnosis Acute pain of right knee- Primary Acute medial meniscus tear of right knee, initial encounter documented in this encounter [facility] HealthcareEvaluation note* Diagnosis Pre-op examination- Primary documented in this encounter [facility] HealthcareEvaluation note* Diagnosis Pre-op examination- Primary Localized osteoarthritis of right knee documented in this encounter [facility]* Diagnosis Acute medial meniscus tear of right knee, initial encounter- Primary documented in this encounter [facility] HealthcareEvaluation note* Diagnosis S/P right knee arthroscopy- Primary documented in this encounter [facility] note* Diagnosis S/P right knee arthroscopy- Primary documented in this encounter [facility] HealthcareEvaluation note* Diagnosis Onset Date Resolution Status Admit Date Right foot pain acuteAugust 2024 9:36am [facility] Work Phone: History general Narrative - Reported* Type Description Date Medical History GERD Medical HistoryHypothyroidMedical HistoryDepressionSurgical HistoryAppendectomy Surgical HistoryTubal LigationSurgical HistoryRight carpal tunnelSurgical HistoryRight fingerSurgical HistoryTumor removal right thyroid04/2021 Hospitalization HistorySee past surgical hx [facility] Other Hospital course Narrative No data available for this section [facility] Discharge instructions No data available for this section [facility] Discharge instructionsAmbulatory Orders* Referral to Neurology Time Frame: 09/30/24, Location: None Selected [facility] Work Phone: Progress note No data available for this section [facility] Reason for referral (narrative)No reason for referral information available[facility] Work Phone: Reason for visit Narrative* Consultation (Routine) - AuthorizedSpecialtyDiagnoses / ProceduresReferred By ContactReferred To ContactPhysical Therapy Diagnoses Pre-op examination Procedures ID [facility]ICE[facility]ES Dolly Veras PA [address] [facility] [address] [place] [address] Phone: tel: fax: Sofia Bull PT Referral IDStatusReasonStart DateExpiration DateVisits RequestedVisits [id number] Consult and Treat [facility] Chief Complaint and Reason for [...] 8:45am emg results November 04, 2024 10:58am Chief Complaint Admit Date SCIATICA -RIGHT SIDE September 30, 2024 9 :36am Wellness October 19, 2024 8:50am EMG BLE per Dr. Nasim Segal October 28, 2024 8:45am emg results November 04, 2024 10:58am Lumbar Radiculopathy November 12, 2024 9 :33am Reason for Visit Admit Date Right foot pain September 30, 2024 9: 36am Anxiety October 19, 2024 8:50am Hyperlipidemia, unspecified October 8:50am Hypothyroid October 19, 2024 8:50am Medicare annual wellness visit, [facility] October 19, 2024 8:50am Right foot pain October 19, 2024 8:50am Ulcerative (chronic) pancolitis without complications October 19, 2024 8:50am Lumbar radiculopathy October 28 8:45am Lumbar radiculopathy November 04 10:58am Chief Complaint Admit Date SCIATICA -RIGHT SIDE September 30, 2024 9 :36am Wellness October 19, 2024 8:50am EMG BLE per Dr. Nasim Segal October 28, 2024 8:45am emg results November 04, 2024 10:58am Lumbar Radiculopathy November 12, 2024 9 :33am Surgical Clearance November 19, 2024 9: 37am Chief Complaint Admit Date SCIATICA -RIGHT SIDE September 30, 2024 9 :36am Wellness October 19, 2024 8:50am EMG BLE per Dr. Nasim Segal October 28, 2024 8:45am emg results November 04, 2024 10:58am Lumbar Radiculopathy November 12, 2024 9 :33am Surgical Clearance November 19, 2024 9: 37am discuss surgery November 20, 2024 9 :29am Reason for Visit Admit Date Right foot pain September 30, 2024 9: 36am Anxiety October 19, 2024 8:50am Hyperlipidemia, unspecified October 8:50am Hypothyroid October 19, 2024 8:50am Medicare annual wellness visit, [facility] October 19, 2024 8:50am Right foot pain October 19, 2024 8:50am Ulcerative (chronic) pancolitis without complications October 19, 2024 8:50am Lumbar radiculopathy October 28 8:45am Lumbar radiculopathy November 04 10:58am Lumbar radiculopathy November 20, 2024 9:29am Chief Complaint Admit Date SCIATICA -RIGHT SIDE September 30, 2024 9 :36am Wellness October 19, 2024 8:50am EMG BLE per Dr. Nasim Segal October 28, 2024 8:45am emg results November 04, 2024 10:58am Lumbar Radiculopathy November 12, 2024 9 :33am Surgical Clearance November 19, 2024 9: 37am discuss surgery November 20, 2024 9 :29am Lumbar Radiculopathy November 26, 2024 5:45am Reason for Visit Admit Date Right foot pain September 30, 2024 9: 36am Anxiety October 19, 2024 8:50am Hyperlipidemia, unspecified October 8:50am Hypothyroid October 19, 2024 8:50am Medicare annual wellness visit, [facility] October 19, 2024 8:50am Right foot [...] 9:29am Lumbar radiculopathy November 26, 2024 5:45am Chief Complaint Admit Date SCIATICA -RIGHT SIDE [...] 5:45am Lumbar radiculopathy December 10, 2024 12:58pm Advance Directives No Advanced Directives Records Found Advance Directive Response Recorded Date/ Time Advance Directives No May 03, 022 9:14am Advance Directive Response Recorded Date/ Time Advance Directives No August 26 11:31am Summary Purpose Family History No Family History Records Found Relationship Condition Age at Onset Recorded Date/T michelle father Diabetes mellitus Unknown Cerebrovascular accident (CVA)Unknown Relationship Condition Age at Onset Recorded Date/T michelle father Diabetes mellitus Unknown Cerebrovascular accident (CVA)UnknownDeceasedUnknownmotherDeceasedUnknown Relationship Condition Age at Onset Recorded Date/T michelle father Diabetes mellitus Unknown Cerebrovascular accident (CVA)UnknownDeceasedUnknownmotherDeceasedUnknown Reason for Referral Reason *FU 09/27 R foot p ain. Had Xray Diagnosis 1 Right foot pain (M79 .671) Referral Organization [facility] Referring Provider First Name Laurita Referring Provider Last Name Carmen Referring Provider Specialty Family [facility] Referred Organization [facility] Referred Provider AlexSeymour Referred Address [address] [place], [place],[address] Referred Provider Specialty Podiatry - S urgical Chiropody Referral Priority Routine General Notes HuberTraci sidhu 03:01:16 PM >received today, attachments made, notes locked, referral faxed Additional Source Comments Care Teams (unrecognized sec tion and content) Team Status: Inactive Member Role Status Dates Cy Sears MD Attending Provider Active Nirmala Goel Care ProviderActive Team Status: Active Member Role Status Dates Laurita Morales MD Primary Care Provider Active Team Status: Inactive Member Role Status Dates Laurita Morales MD Primary Care Provider Active Luis Gutierrez , Attending ProviderActiveTeam MemberRelationshipSpecialty Start DateEnd Date Laurita Morales MD [address] [place] [address] [facility]/26/23Team MemberRelationshipSpecialtyStart DateEnd Date Laurita Morales MD [address] [place] [address] [facility] - [facility]08/26/23Team MemberRelationshipSpecialtyStart DateEnd Date Laurita Morales MD [address] [place] [address] [facility] - [facility]08/26/23Team MemberRelationshipSpecialtyStart DateEnd Date Laurita Morales MD [address] [place] [address] PCP - GeneralFamily Medicine08/26/23Team MemberRelationshipSpecialtyStart DateEnd Date Laurita Morales MD [address] [facility], [place] [address] PCP - GeneralFamily Medicine08/26/23Team MemberRelationshipSpecialtyStart DateEnd Date Laurita Morales MD [address] [facility], [place] [address] PCP - GeneralFamily Medicine08/26/23Team MemberRelationshipSpecialtyStart DateEnd Date Laurita Morales MD [address] [facility], [place] [address] PCP - GeneralFamily Medicine08/26/23Team MemberRelationshipSpecialtyStart DateEnd Date Laurita Morales MD [address] [facility], [place] [address] PCP - GeneralFamily Medicine08/26/23Team MemberRelationshipSpecialtyStart DateEnd Date Laurita Morales MD [address] [facility], [place] [address] PCP - GeneralFamily Medicine08/26/23Team MemberRelationshipSpecialtyStart DateEnd Date Laurita Morales MD [address] [facility], [place] [address] PCP - GeneralFamily Medicine08/26/23Team MemberRelationshipSpecialtyStart DateEnd Date Laurita Morales MD [address] [facility], [place] [phone] PCP - GeneralFamily Medicine08/26/23Team MemberRelationshipSpecialtyStart DateEnd Date Laurita Morales MD [address] [facility], [place] [address] PCP - GeneralFamily Medicine08/26/23 Team Status: Inactive Member Role Status Dates Laurita Morales MD Primary Care Provide r, Attending Provider Active Start: April 21, 2024 End: April 21, 2024Team MemberRelationshipSpecialtyStart DateEnd Date Laurita Morales MD [address] [facility], [place] [phone] PCP - GeneralFamily Medicine08/26/23Team MemberRelationshipSpecialtyStart DateEnd Date Laurita Morales MD [address] [facility], [place] [phone] PCP - GeneralFamily Medicine08/26/23Team MemberRelationshipSpecialtyStart DateEnd Date Laurita Morales MD PCP - GeneralFamily Medicine08/26/23Team MemberRelationshipSpecialtyStart DateEnd Date Laurita Morales MD PCP - GeneralFamily Medicine08/26/23Team MemberRelationshipSpecialtyStart DateEnd Date Laurita Morales MD PCP - GeneralFamily Medicine08/26/23Team MemberRelationshipSpecialtyStart DateEnd Date Laurita Morales MD PCP - GeneralFamily Medicine08/26/23Team MemberRelationshipSpecialtyStart DateEnd Date Laurita Morales MD PCP - GeneralFamily Medicine08/26/23Team MemberRelationshipSpecialtyStart DateEnd Date Laurita Morales MD PCP - GeneralFamily Medicine08/26/23Team MemberRelationshipSpecialtyStart DateEnd Date Laurita Morales MD [address] [facility], [place] [address] PCP - GeneralFamily Medicine07/16/24Team MemberRelationshipSpecialtyStart DateEnd Date Laurita Morales MD [address] [facility], [place] [address] [facility] - [facility]07/16/24Team MemberRelationshipSpecialtyStart DateEnd Date Laurita Morales MD [address] [facility], [place] [phone] PCP - Generalmi Medicine07/16/24 Team Status: Inactive Member Role Status Dates Laurita Morales MD Primary Care Provider Active Start: September 30, 2024 End: September 30, 2024Alba Kang ProviderActiveStart: September 30, 2024 End: September 30, 2024 Team Status: Inactive Member Role Status Dates Laurita Morales MD Primary Care Provider Active Start: October 19, 2024 End: October 19, 2024Laurita Morales MDAttarmando ProviderActiveStart: October 19, 2024 End: October 19, 2024 Team Status: Active Member Role Status Nataliia Morales MD Primary Care Provider Active Start: October 20, 2024 Amelia Goel ProviderActiveStart: October 20, 2024 Team Status: Inactive Member Role Status Nataliia Morales MD Primary Care Provider Active Start: October 28, 2024 End: October 28melissa Bernard DOAttending ProviderActive Start: October 28, 2024 End: October 28, 2024 Team Status: Inactive Member Role Status Nataliia Morales MD Primary Care Provider Active Start: November 04, 2024 End: November 04, 2024Eric N Luzma , DOAttending ProviderActiveStart: November 04, 2024 End: November 04, 2024 Team Status: Inactive Member Role Status Nataliia Morales MD Primary Care Provider Active Start: November 12, 2024 End: November 12, 2024Eric N Arpitaaski , DOAttending ProviderActiveStart: November 12, 2024 End: November 12, 2024 Team Status: Inactive Member Role Status Nataliia Morales MD Primary Care Provider Active Start: November 19, 2024 End: November 19, 2024Jo-Ann Goelending ProviderActiveStart: November 19, 2024 End: November 19, 2024 Team Status: Inactive Member Role Status Nataliia Morales MD Primary Care Provider Active Start: November 20, 2024 End: November 20, 2024Eric N Luzma , Attending ProviderActiveStart: November 20, 2024 End: November 20, 2024 Team Status: Active Member Role/Relationship Status Nataliia Morales MD Primary Care Provider Active Team Status: Inactive Member Role/Relationship Status Nataliia Morales MD Primary Care Provider Active Start: September 30, 2024 End: September 30, 2024Eric Geri Segal DOAttending ProviderActiveStart: September 30, 2024 End: September 30, 2024 Team Status: Inactive Member Role/Relationship Status Nataliia Morales MD Primary Care Provider Active Start: October 19, 2024 End: October 19, 2024Laurita Morales MDAttending ProviderActiveStart: October 19, 2024 End: October 19, 2024 Team Status: Active Member Role/Relationship Status Dates Laurita Morales MD Primary Care Provider Active Start: October 20, 2024 Laurita Morales MDAttending ProviderActiveStart: October 20, 2024 Team Status: Inactive Member Role/Relationship Status Dates Laurita Moralse MD Primary Care Provider Active Start: October 28, 2024 End: October 28melissa Bernard DOAttending ProviderActive Start: October 28, 2024 End: October 28, 2024 Team Status: Inactive Member Role/Relationship Status Dates Laurita Morales MD Primary Care Provider Active Start: November 04, 2024 End: November 04, 2024Eric N Bialaski , DOAttending ProviderActiveStart: November 04, 2024 End: November 04, 2024 Team Status: Inactive Member Role/Relationship Status Dates Laurita Morales MD Primary Care Provider Active Start: November 12, 2024 End: November 12, 2024Eric N Bial[place]i , DOAttending ProviderActiveStart: November 12, 2024 End: November 12, 2024 Team Status: Inactive Member Role/Relationship Status Dates Laurita Morales MD Primary Care Provider Active Start: November 19, 2024 End: November 19, 2024Laurita Morales MDAttending ProviderActiveStart: November 19, 2024 End: November 19, 2024 Team Status: Inactive Member Role/Relationship Status Dates Laurita Morales MD Primary Care Provider Active Start: November 20, 2024 End: November 20, 2024Eric N Bial[place]i , DOAttending ProviderActiveStart: November 20, 2024 End: November 20, 2024 Team Status: Active Member Role/Relationship Status Dates Laurita Morales MD Primary Care Provider Active Start: November 26, 2024 Nasim N Bialaski , DOAdmit ProviderActiveStart: November 26, 2024 Nasim N Bial[place]i , DOAttending ProviderActiveStart: November 26, 2024 Nasim N Bial[place]i , DOOther ProviderActiveStart: November 26, 2024 Team Status: Active Member Role/Relationship Status Dates Laurita Morales MD Primary Care Provider Active Start: November 30, 2024 Amy Victoria CMAAttending ProviderActiveStart: November 30, 2024 Team Status: Active Member Role/Relationship Status Dates Laurita Morales MD Primary Care Provider Active Start: December 03, 2024 Nasim Segal , DOAdmit ProviderActiveStart: December 03, 2024 Nasim Segal , DOOther ProviderActiveStart: December 03, 2024 Cory Morales MDAttending ProviderActiveStart: December 03, 2024 Team Status: Inactive Member Role/Relationship Status Dates Laurita Morales MD Primary Care Provider Active Start: December 10, 2024 End: December 10, 2024Nasim Segal , DOAttending ProviderActiveStart: December 10, 2024 End: December 10, 2024 Goals (unrecognized section and content) Goals [...] section and content) DATE CREATED AUTHOR 05/23/2021 [facility] DATE CREATED AUTHOR AUTHOR'S ORGANIZ ATION 01/23/2022 [facility] DATE CREATED AUTHOR AUTHOR'S ORGANIZ ATION 12/03/2023 [facility] DATE CREATED AUTHOR AUTHOR'S ORGANIZ ATION 12/08/2023 [facility] DATE CREATED AUTHOR AUTHOR'S ORGANIZ ATION 12/10/2023 [facility] DATE CREATED AUTHOR AUTHOR'S ORGANIZ ATION 12/12/2023 [facility] DATE CREATED AUTHOR AUTHOR'S ORGANIZ ATION 01/23/2024 [facility] DATE CREATED AUTHOR AUTHOR'S ORGANIZ ATION 01/25/2024 [facility] DATE CREATED AUTHOR AUTHOR'S ORGANIZ ATION 02/03/2024 [facility] DATE CREATED AUTHOR AUTHOR'S ORGANIZ ATION 08/24/2024 [facility] DATE CREATED AUTHOR AUTHOR'S ORGANIZ ATION 08/28/2024 [facility] DATE CREATED AUTHOR AUTHOR'S ORGANIZ ATION 12/16/2024 [facility] DATE CREATED AUTHOR AUTHOR'S ORGANIZ ATION 12/22/2024 [facility] REASON FOR VISIT (unrecogniz ed section and content) LoheruMcjealmfLaofye-kjYzwrttVhwbfbpqThynRkybxrYnkfhpnxUcopym-koIefaiyUqact Date EfxwsoxbWIC44/20/2025ReasonCommentsPre-op ExamReasonCommentsPost-op FOR RECORDS PERTAINING TO PATIENTS WHO ARE [...] BE BASED ON THE PRIMARY CLINICAL RECORDS. [facility]. provides no warranty or guarantee of the accuracy or completeness of information in this document.
[2024-12-23 07:55] LABS: Alanine Aminotransferase 19 U/L (14-59); Albumin Globulin Ratio 0.7; Albumin Level 2.8 g/dL (3.4-5.0); Alkaline Phosphatase 183 U/L (46-116); Anion Gap 14.7; Aspartate Amino Transferase 15 U/L (15-37); Blood Urea Nitrogen 10.0 mg/dL (7.0-18.0); Calcium 8.8 mg/dL (8.5-10.1); Carbon Dioxide 26.9 mmol/L (21.0-32.0); Chloride 103 mmol/L (98-107); Estimated GFR (African America >60 (>=60 mL/min/1.73m^2); Estimated GFR (Non-African Ame >60 (>=60 mL/min/1.73m^2); Globulin 4.0 g/dL; Glucose 116 mg/dL (74-106); Potassium 3.6 mmol/L (3.5-5.1); Sodium 141 mmol/L (136-145); Total Protein 6.8 g/dL (6.4-8.2)
--- NOTE | 2024-12-23 08:18 | CT_ITS ---
The [address] [address] Patient Name: ALEXANDRA GARDNER MRN: [id number] date: 1950 Sex: F Assigned Patient Location: ER Current Patient Location: Accession/Order Number: [id number] Exam Date: 12/23/2024 08:35 Report Date: 12/23/2024 09:30 At the request of: JANUSZ MARTIN DO Procedure: CT abdomen pelvis w con CT ABDOMEN AND PELVIS WITH CONTRAST COMPARISON: CT lumbar spine 11/13/2024 CLINICAL DATA: Generalized abdominal pain and constipation. Back surgery one week ago. Spiral images were obtained through the abdomen and pelvis following 100 mL of Omnipaque 300. This CT exam was performed using one or more following dose reduction techniques: Automated exposure control, adjustment of the mA and/or kV according to patient size, or use of iterative reconstruction technique. Limited cuts through the lung bases show minor atelectasis and/or scarring. There is a calcified left lower lobe granuloma. There are multiple tiny gallstones. The gallbladder wall is also slightly thickened. There is no significant pericholecystic inflammation. No intrahepatic masses are identified. There are calcified splenic granulomas. The pancreas and adrenal glands show no acute findings. There are symmetric renal nephrograms, without hydronephrosis. There is a punctate stone at the upper pole of the right kidney. Tiny cysts are also present on that side. Mild atherosclerotic plaque is seen at the aorta, iliac and some of the visceral arteries. There are no enlarged lymph nodes or ascites. Small bowel loops are not dilated. There is mild air and stool within the colon. There is dextroscoliotic curvature and degenerative changes at the spine, similar to the comparison. Patient is status post interval laminectomy and fusion at the lower lumbar spine with posterior rods, pedicle screws and interbody fusion devices extending from L4 through S1. There is improvement of the lumbosacral spondylolisthesis following surgery. Images through the pelvis show nondistended small bowel. The appendix is not definitely seen. There is air and only minimal stool at the distal colon. No diverticular disease is noted. The uterus is levoverted. There are no adnexal cysts. The urinary bladder is within normal limits. No ascites is noted. CT/CT abdomen pelvis w con IMPRESSION: CHOLELITHIASIS AND SLIGHT GALLBLADDER WALL THICKENING. RIGHT RENAL CYSTS AND NEPHROLITHIASIS. NO BOWEL OR URINARY TRACT OBSTRUCTION. NO PROMINENT STOOL LOAD. INTERVAL LOWER LUMBAR LAMINECTOMY AND FUSION. NO OTHER ACUTE FINDINGS. Impression dictated by: Giulia Villarreal M.D. 12/23/2024 9:30 AM Dictation Location: [place] [address] Electronically authenticated by: [id number] Y Date: 12/23/2024 09:30
[2024-12-23 09:07] LABS: Glucose Urine UA NEGATIVE (NEGATIVE)
[2024-12-23 09:41] LABS: Cast Seen? NONE SEEN #/LPF (NONE SEEN); Crystals Seen? None Seen #/HPF (None Seen)
--- OUTSIDE RECORDS SUMMARY | 2024-12-23 11:13 | XMS_ITS | CCD ---
Author Organization [facility] Care Team Providers Care Irrigationist Name Role Phone MD Cy Sears Attending Provider MD Laurita Morales Primary Care Provider LAURITA MORALES Primary Care Physician [phone] DO Luis Gutierrez Attending Provider CARMEN, DR [...] Unavailable MORALES, DR LAURITA Solis Attending Unavailable COLCHESTER, DR LONNY Wiggins Consulting Unavailable MORALES, DR LAURITA Solis Consulting Unavailable MORALES, DR LAURITA Solis Primary Care Unavailable ESEQUIEL, DR RADHA Whitfield Attending Unavailable ESEQUIEL, DR RADHA Whitfield Consulting Unavailable ESEQUIEL, DR RADHA Whitfield Admitting Unavailable SABINA STONE Consulting Unavailable MORALES, DR LAURITA Solis Primary Care Unavailable ESEQUIEL, DR RADHA Whitfield Admitting Unavailable ESEQUIEL, DR RADHA Whitfield Attending Unavailable MCNALLY, ROBERTO Consulting Unavailable MORALSE, DR LAURITA Solis Primary Care Unavailable ESEQUIEL, [...] Unavailable Laurita Morales MD Primary Care Provider [phone] Martin Tatum Attending Unavaila ble Sarmini, Martin Talal Admitting Unavaila ble Sarmini, Martin Talal Attending Unavaila ble Sarmini, Martin Khan Attending Unavaila ble Sarmini, Martin Talal Admitting Unavaila ble Sarmini, Martin Felicianoal Attending Unavaila ble Sarmini, Martin Talal Admitting Unavaila ble Sarmini, Martin Khan Attending UnavailLaurita Schultz MD Primary Care Provider Laurita Morales MD Primary Care Provider [phone] JR. ALESHIA, LARISSA Hurley Attending Unavaila pato [...] Laurita Morales MD Primary Care Provider [phone] Nasim Segal DO Attending Provider Laurita Morales MD Attending Provider [phone] Sin Bernard DO Attending Provider [phone] Nasim Segal DO Admit Provider Nasim Segal DO Other Provider Amy Victoria CMA Attending Provider UnavailCory Schultz MD Attending Provider Martin Tatum Attending UnavailLaurita Schultz Primary Care Unavailable Nasim Segal Attending Unavailable Nasim Segal Admitting Unavailable Nasim Segal Admitting Unavailable Laurita Morales Primary Care Unavailable Nasim Segal Attending Unavailable Allergies Allergy ClassificationReported Allergen(s)Allergy TypeDate of OnsetReaction(s) Facility (20 sources)varenicline; Translations: [varenicline]Drug [id number] UnknownNOKY HealthcareComment on above:Outside Source Comment: Other Reaction(s): Unknown Medications Current Medications MedicationDrug Class(es)DatesSig (Normalized)Sig (Original)acetaminophen 325 mg / HYDROcodone bitartrate 5 mg oral tablet (2 sources)Opioid AgonistStart: 07-06-2024 End: 44-42-4553cdbk 1 tablet by mouth every six hours for painHYDROcodone- acetaminophen (Maxwell) 5-325 MG tablet Indications: Acute medial meniscus tear of right knee, initial encounter Take 1 tablet by mouth every 6 (six) hours if needed for severe pain for up to 3 days 12 tablet 07/06/2024 07/09/2024 Active Start: 10-08-2023 End: 53-35-1934wdeo 1 tablet by mouth every six hours for painHYDROcodone- acetaminophen (Maxwell) 5-325 MG tablet Indications: Post-op pain Take 1 tablet by mouth every 6 (six) hours if needed for severe pain for up to 3 days 12 tablet 10/08/2023 10/11/2023 ActiveAlive Women's 50+ Complete Multivitamin (6 sources)Start: 24-98-2974Nknys Women's 50+ Complete Multivitamin Oral, Daily, Refill(s) 0, Prophylaxis Start Date: 12/04/23 Status: OrderedStart: 12-04-2023 Alive Women's 50+ Complete Multivitamin Oral, Daily, Refill(s) 0 Start Date: 12/04/23 Status: OrderedAllergy Medication (5 sources)Start: 86-19-6931bjrr 1 tablet by mouth once daily as neededAllergy Medication Active 1 TAB PO Daily as needed for allergic symptoms November 12, 2024 12:00am On Hold: Resume on 12/03/24. pt. unsure of what allergy med she takes Complies with drug therapyStart: 62-21-6535njan 1 tablet by mouth once daily as neededAllergy Medication Active 1 TAB PO Daily as needed for allergic symptoms November 12, 2024 12:00am pt. unsure of what allergy med she takes Complies with drug therapyStart: 79-09-7745abbw 1 tablet by mouth once daily as neededAscorbic Acid / Beta Carotene / cuprous oxide / Lutein / sodium selenate / Vitamin E / Zinc Oxide (6 sources)Vitamin CStart: 87-55-0249Gbfysmf Adult 50+ Refill(s) 0, Prophylaxis Start Date: 12/04/23 Status: OrderedStart: 99-47-6405Wonmojg Adult 50+ Refill(s) 0 Start Date: 12/04/23 Status: OrderedbusPIRone hydrochloride 15 mg oral tablet (20 sources)Start: 11-39-0837nyio 1 tablet by mouth twice dailyBuspirone 15 mg tablet Active 15 MG PO Twice daily November 12, 2024 12:00am Complies with drug therapyStart: 45-86-0653cqbg 1 tablet by mouth in the morningbusPIRone (Buspar) 15 MG tablet Take 15 mg by mouth in the morning and 15 mg before bedtime. 02/19/2024 ActiveStart: 02-18-2024 End: 89-75-7538rild 1 tablet by mouth twice dailyBuspirone 15 mg tablet Discontinued 0 .ROUTE .COMPLEX 60 2 August 19, 2024 12:34pm November 12, 2024 10:46am TAKE ONE TABLET BY MOUTH TWICE A DAYStart: 01-20-2024 End: 81-19-7304bfdm 1 tablet by mouth twice dailyBuspirone 15 mg tablet Discontinued 15 MG PO Twice daily 60 0 January 20, 2024 1:00am February 18, 2024 9:46amcalcium citrate 950 mg oral tablet (8 sources)Start: 84-14-6766ckxm 1 mg by mouth twice dailycalcium (as calcium citrate) 200 mg oral tablet mg tab(s), Oral, BID, Refills(s) 0, Prophylaxis Star t Date: 01/28/20 Status: Orderedcephalexin 500 mg oral capsule (2 sources)Cephalosporin AntibacterialStart: 53-28-5066oewp 1 capsule by mouth three times dailyCephalexin 500 mg capsule Active 500 MG PO Three times daily 15 0 November 27, 2024 12:00am Complies with drug therapycyclobenzaprine hydrochloride 10 mg oral tablet (3 sources)Muscle RelaxantStart: 11-27-2024 End: 43-80-1843nkkb 1 tablet by mouth three times daily as needed for muscle spasmsCyclobenzaprine 10 mg tablet Active 10 MG PO Three times daily as needed for back spasms 50 0 December 10, 2024 1:11pm Complies with drug therapy escitalopram 20 mg oral tablet (20 sources)Serotonin Reuptake InhibitorStart: 74-47-3295gqrx 1 tablet by mouth once daily in the morningEscitalopram Oxalate 20 mg tablet Active 20 MG PO Every morning November 12, 2024 12:00am Complies with drug therapyStart: 01-22-2024 End: 83-39-7276oxsd 1 tablet by mouth once dailyEscitalopram Oxalate 20 mg tablet Discontinued 0 .ROUTE .COMPLEX 30 January 22, 2024 9:32am November 12, 2024 10:46am TAKE ONE TABLET BY MOUTH DAILY 30Start: 05-26-2021 End: 71-60-8626swbg 1 tablet by mouth once daily in the morningEscitalopram Oxalate 20 mg tablet Discontinued 20 MG PO Every morning May 26, 2021 12:00am January 22, 2024 9:32amStart: 09-80-1097okumbpontyah Oral, Daily, Refills(s) 0 Start Date: 01/28/20 Status: Ordered End: 64-81-2452fpxt 1 tablet by mouth once dailyescitalopram (Lexapro) 10 MG tablet Take 10 mg by mouth Daily 06/23/2024 Discontinued (Therapy completed)Eye Vitamin (10 sources)Start: 67-41-6987kcsv 1 tablet by mouth once dailyEye Vitamin Active 1 TAB PO Daily May 26, 2021 2:53pmStart: 45-52-7044rtkb 1 tablet by mouth once daily in the morningEye Vitamin Active 1 TAB PO Every morning May 26, 2021 12:00am Complies with drug therapyStart: 98-05-4577elln 1 tablet by mouth once daily in the morningStart: 73-52-9678bwzu 1 tablet by mouth once daily Start: 33-56-3026rapl 1 tablet by mouth once dailyEye Vitamin Active 1 TAB PO Daily May 26, 2021 12:00am Complies with drug therapyStart: 52-57-1959ihun 1 tablet by mouth once dailyEye Vitamin Active 1 TAB PO Daily May 26, 2021 12:00amfolic acid 1 mg oral tablet (2 sources)Start: 13-74-7239jzyg 1 tablet by mouth once dailyFolate 1 mg Tab 1 mg = 1 tab(s), Oral, Daily, # 30 tab(s), Refills(s) 0, Pharmacy: [facility], 150, cm, 07/25/20 14:29:00 EDT, Height/Length Dosing, 69.9, kg, 07/25/20 14:29:00 EDT, Weight Dosing Start Date: 07/25/20 Status: OrderedGlucoamine (10 sources)Start: 17-69-8008assc 1 mg by mouth twice dailyGlucoamine Active MG PO Twice daily May 26, 2021 2:53pmStart: 05-26-2021 End: 16-44-1518syoc 1 mg by mouth twice dailyGlucoamine Discontinued MG PO Twice daily May 26, 2021 12:00am November 12, 2024 10:38amStart: 79-68-7811agiz 1 mg by mouth twice dailyStart: 04-82-4838uijq 1 mg by mouth twice daily Glucoamine Active MG PO Twice daily May 26, 2021 12:00am Complies with drug therapyStart: 94-29-7591oehh 1 mg by mouth twice dailyGlucoamine Active MG PO Twice daily May 26, 2021 12:00amGlucosamine (13 sources)Start: 17-70-5112hazd 1 capsule by mouth once daily in the morning Glucosamine Active 1 CAP PO Every morning November 12, 2024 12:00am Complies with drug therapyStart: 64-32-3676ywie 1 capsule by mouth once daily in the morningStart: 29-36-7666pimx 1 tablet by mouth three times dailyglucosamine 500 mg oral tablet 500 mg = 1 tab(s), Oral, TID, # 90 tab(s), Refills(s) 0 Start Date: 01/28/20 Status: Orderedibuprofen 200 mg oral capsule (20 sources)Nonsteroidal Anti-inflammatory DrugStart: 38-41-9577sshy 1 mg by mouth every six hoursibuprofen 200 mg oral capsule mg cap(s), Oral, q6hr, Refills(s) 0 Start Date: 12/04/23 Status: Orderedibuprofen (Advil) 200 MG tablet every 8 (eight) hours Activelevothyroxine sodium 0.075 mg oral tablet (20 sources)l-ThyroxineStart: 12-70-3196sfyu 1 tablet by mouth once daily in the morningLevothyroxine 75 mcg tablet Active 75 MCG PO Every morning November 12, 2024 12:00am Complies with drug therapyStart: 05-61-5511etzy 1 tablet by mouth once dailyLevothyroxine 75 mcg tablet Active 0 .ROUTE .COMPLEX February 20, 2024 9:23am TAKE ONE TABLET BYMOUTH ONCE DAILYStart: 09-27-2023 End: 93-55-4761hhvt 1 tablet by mouth once dailyLevothyroxine 75 mcg tablet Discontinued 0 .ROUTE .COMPLEX 10 07August 19, 2024 12:34pm November 10:46am TAKE ONE TABLET BY MOUTH ONCE DAILYStart: 05-26-2021 End: 52-75-6797ccff 1 tablet by mouth once daily in the morningLevothyroxine 75 mcg tablet Discontinued 75 MCG PO Every morning May 26, 2021 12:00am September 27, 2023 7:50amStart: 92-53-7027qwuksjmywfkfg Daily, Refills(s) 0, Thyroid Start Date: 01/28/20 Status: OrderedStart: 76-77-8722vofdzifvuccvo Daily, Refills(s) 0 Start Date: 01/28/20 Status: Orderedtake 1 tablet by mouth once dailyLevothyroxine Sodium 75 MCG TAKE ONE TABLET BY MOUTH ONCE DAILY for 30 ActiveMagnesium (10 sources)Start: 54-68-1410zlpk 400 mg by mouth once dailyMagnesium Active 400 MG PO Daily May 26, 2021 2:53pmStart: 05-26-2021 End: 53-62-9015sdqm 2 tablets by mouth once dailyMagnesium 200 mg Tablet Discontinued 400 MG PO Daily May 26, 2021 12:00am July 03, 2023 9:06am mesalamine 1200 mg delayed release oral tablet (20 sources)AminosalicylateStart: 89-05-8376ugalsjptlh (Lialda) 1.2 g EC tablet 01/31/2024 ActiveStart: 83-42-4536sxtd 4 tablets by mouth once dailymesalamine (Lialda) 1.2 g EC tablet TAKE FOUR TABLETS BY MOUTH DAILY 01/31/2024 Active methocarbamol 750 mg oral tablet (1 source)Muscle RelaxantMethocarbamol 750 MG Orally Four times a day Active Misc. Devices misc (12 sources)Start: 09-70-5361Xrut. Devices misc Indications: Pre-op examination Dispense: Front Wheeled walker use 90 days. Ht: 4'11 Weight: 159lb 1 Units 06/23/2024 ActiveMultivitamin (Multi-Day) Tablet (1 source)Start: 81-78-3051tuez 1 tablet by mouth once dailyMultivitamin (Multi- Day) Tablet Active 1 TAB PO Daily May 26, 2021 2:53pmMultivitamin Tablet (9 sources)Start: 21-02-1081buyf 1 tablet by mouth once daily in the evening Multivitamin Tablet Active 1 TAB PO Every evening May 26, 2021 12:00am Complies with drug therapyStart: 04-60-6913cafq 1 tablet by mouth once daily in the eveningStart: 88-65-7065cfrs 1 tablet by mouth once dailyStart: 05-26-2021 take 1 tablet by mouth once dailyMultivitamin Tablet Active 1 TAB PO Daily May 26, 2021 12:00am Complies with drug therapyStart: 10-54-3425yuyn 1 tablet by mouth once dailyMultivitamin Tablet Active 1 TAB PO Daily May 26, 2021 12:00amAleve (1 source)Nonsteroidal Anti-inflammatory DrugStart: 02-54-6166rzug 1 mg by mouth every twelve hoursAleve mg, Oral, q12hr, Refills(s) 0 Start Date: 03/20/24 Status: OrderedNuLYTELY [place] oral powder for reconstitution (1 source)Start: 47-20-1344tibn 1 dose by mouth onceNuLYTELY [place] oral powder for reconstitution See Instructions, 1 EA, Refill(s) 0, PER PHYS INSRTUCTIONS, [facility], 150, cm, 01/28/20 10:49:00 EST, Height/Length Dosing, 69.9, kg, 01/28/20 10:49:00 EST, Weight Dosing Start Date: 01/28/20 Status: OrderedoxyCODONE hydrochloride 5 mg oral tablet (3 sources)Opioid AgonistStart: 99-63-0889jjhe 1 tablet by mouth every four to six hours as needed for painOxycodone 5 mg tablet Active 5 MG PO EVERY 4-6 HOURS as needed for pain 40 7 0 December 10, 2024 Lumbar radiculopathy Radiculopathy, lumbar region Complies with drug therapyStart: 11-27-2024 End: 21-86-0566jhhe 1 tablet by mouth every four to six hours as needed for pain Oxycodone 5 mg tablet Discontinued 5 MG PO EVERY 4-6 HOURS as needed for pain 40 7 0 November 27, 2024 December 10, 2024 1:11pm Lumbar radiculopathy Radiculopathy, lumbar regionpolyethylene glycol 3350 692531 mg / potassium chloride 1480 mg / sodium bicarbonate 5720 mg / sodium chloride 39712 mg powder for oral solution (1 source)Osmotic LaxativeStart: 83-93-2670apva 1 dose by mouth onceNuLYTELY [place] oral powder for reconstitution See Instructions, 1 EA, Refill(s) 0, PER PHYS INSRTUCTIONS, [facility], 150, cm, 01/28/20 10:49:00 EST, Height/Length Dosing, 69.9, kg, 01/28/20 10:49:00 EST, Weight Dosing Start Date: 01/28/20 Status: OrderedpredniSONE 10 mg oral tablet (20 sources)Start: 95-82-6552Dgmvggdtsf 10 mg tablets,dose pack Active 10 MG PO per package directions November 27, 2024 12:00am take 4 tabs for 3 days then take 3 tabs for 3 days then take 2 tabs for 3 days then take 1 tab for 3 days Complies with drug therapyStart: 01-16-2024 End: 58-90-6698iqttfhQUCB (Deltasone) 5 MG tablet START WITH 40MG (8 TABS) BY MOUTH FOR 7 DAYS, THEN DECREASE BY 5MG (1 TAB) EVERY 7 DAYS UNTIL FINISHED 01/16/2024 06/23/2024 Discontinued (Therapy completed)Start: 01-16-2024 predniSONE 5 mg Tab See Instructions, Start with 40mg x1 week and decrease by 5mg every week until finished, # 252 tab(s), Refills(s) 0, Pharmacy: [place] [id number], 69, kg, 01/15/24 9:14:00 EST, Weight Dosing Start Date: 01/16/24 Status: Orderedsimvastatin 40 mg oral tablet (20 sources)HMG-CoA Reductase InhibitorStart: 70-48-7636geku 1 tablet by mouth once daily in the eveningSimvastatin 40 mg tablet Active 40 MG PO Every evening November 12, 2024 12:00am Complies with drugtherapyStart: 12-26-2023 End: 61-83-0826gtkg 1 tablet by mouth once daily at bedtimeSimvastatin 40 mg tablet Discontinued 0 .ROUTE .COMPLEX 30 December 26, 2023 2:15pm November 12, 2024 10:46am TAKE ONE TABLET BY MOUTH ONCE DAILY AT BEDTIMEStart: 05-26-2021 End: 49-16-9320uivw 1 tablet by mouth once daily at bedtimeSimvastatin 40 mg Tablet Discontinued 40 MG PO Daily at bedtime May 26, 2021 12:00am December 26, 2023 2:15pmStart: 49-05-1936kphaqikzurb Oral, Refills(s) 0, High cholesterol Start Date: 01/28/20 Status: OrderedsulfaSALAzine 500 mg oral tablet (20 sources)AminosalicylateStart: 62-26-1872plda 1 tablet by mouth three times dailySulfasalazine 500 mg tablet Active 1000 MG PO Three times daily November 12, 2024 12:00am On Hold: Resume on 12/10/24. Complies with drug therapyStart: 03-20-2024 End: 33-22-2438znsh 2 tablets by mouth three times dailysulfasalazine 500 mg Tab 1,000 mg = 2 tab(s), Oral, TID, X 90 day(s), # 540 tab(s), Refills(s) 3, Ph armacy: [facility], 150, cm, 03/20/24 11:03:00 EST, Height/Length Dosing, 74.6, kg, 03/20/24 11:03:00 EST, Weight Dosing Start Date: 03/20/24 Stop Date: 03/15/25 Status: OrderedStart: 05-26-2021 End: 46-38-6956tnno 1 tablet by mouth four times dailySulfasalazine 500 mg tablet Discontinued 500 MG PO Four times daily May 26, 2021 12:00am June, 2023 9:07amStart: 67-86-5424ucvf 2 tablets by mouth three times daily sulfasalazine 500 mg Tab 1,000 mg = 2 tab(s), Oral, TID, # 180 tab(s), Refills(s) 11, Pharmacy: [facility]/pharmacy #[id number], 150, cm, 05/10/21 11:13:00 EDT, Height/Length Dosing, 71, kg, 05/10/21 11:13:00 EDT, Weight Dosing Start Date: 05/10/21 Status: Orderedtake 1 tablet by mouth once dailysulfaSALAzine (Azulfidine) 500 MG tablet Take 500 mg by mouth 1 (one) time each day at the same time ActiveVitamin D And Calcium (10 sources)Start: 89-20-1422Xmlwnpd D And Calcium Active PO Twice daily May 26, 2021 2:53pmStart: 91-49-1022eyam 1 tablet by mouth once daily in the morningVitamin D And Calcium Active 1 TAB PO Every morning May 26, 2021 12:00am On Hold: Resume on 12/03/24. Complies with drug therapyStart: 05-26-2021 take 1 tablet by mouth once daily in the morningVitamin D And Calcium Active 1 TAB PO Every morning May 26, 2021 12:00am Complies with drug therapyStart: 68-60-1851lonb 1 tablet by mouth once daily in the morningStart: 05-26-2021 Start: 30-17-4284Mpecfsd D And Calcium Active PO Twice daily May 26, 2021 12:00am Complies with drug therapyStart: 14-55-7991Bsjgytp D And Calcium Active PO Twice daily May 26, 2021 12:00amzonisamide 50 mg oral capsule (20 sources)Anti-epileptic AgentStart: 22-12-3422csfk 2 capsules by mouth once daily at bedtimezonisamide (Zonegran) 50 MG capsule TAKE TWO CAPSULES BY MOUTH DAILY AT BEDTIME 10/25/2023 Active Completed/Discontinued Medications MedicationDrug Class(es)DatesSig (Normalized)Sig (Original)ALPRAZolam 0.5 mg oral tablet (20 sources)BenzodiazepineStart: 05-27-2024 End: 09-61-4013etsn 0.25 mg by mouth twice dailyAlprazolam 0.5 mg tablet Discontinued 0.25 MG PO Twice daily 30 30 0 November 09, 2024 8:13am November 12, 2024 10:46am Anxiety Anxiety disorder, unspecified anxietyStart: 05-26-2021 End: 13-30-3509yczp 1 tablet by mouth twice daily as needed for anxiety Alprazolam 0.5 mg tablet Discontinued 0.5 MG PO Twice daily as needed for anxiety 50 30 0 April 21, 2024 9:17am May 27, 2024 1:18pm Anxiety Anxiety disorder, unspecifiedStart: 54-05-2192qypeowjhgr Oral, Refills(s) 0, Anxiety Start Date: 01/28/20 Status: OrderedStart: 30-28-4364llijiscttf Oral, Refills(s) 0 Start Date: 01/28/20 Status: Orderedbaclofen 10 mg oral tablet (20 sources)gamma-Aminobutyric Acid-ergic AgonistStart: 09-09-2023 End: 50-15-4609bdib 1 tablet by mouth once daily as neededBaclofen 10 mg tablet Discontinued 10 MG PO Daily as needed September 09, 2023 12:00am January 20, 2024 2:04pmStart: 05-06-2023 End: 36-63-3642pmgp 1 tablet by mouth three times daily as neededBaclofen 10 mg tablet Discontinued 0 .ROUTE .COMPLEX 90 0 May 06, 2023 4:38pm July 03, 2023 9:05am TAKE ONE TABLET BY MOUTH THREE TIMES A DAY NEEDEDStart: 05-26-2021 End: 58-83-6479ildi 1 tablet by mouth twice daily as needed for painBaclofen 10 mg Tablet Discontinued 10 MG PO Twice daily as needed for Pain May 26, 2021 12:00amMa2023 4:38pmStart: 34-74-7260ytpogppm Oral, TID, Refills(s) 0, Muscle pain Start Date: 01/28/20 Status: Orderedbenzonatate 100 mg oral capsule (1 source)Non-narcotic AntitussiveStart: 97-58-1197hxvg 1 capsule by mouth every eight hours as needed for coughBenzonatate 100 MG 1 capsule as needed Orally every 8 hours as needed for cough for 5 days Sep, Not-Taking clarithromycin 500 mg oral tablet (1 source)Macrolide AntimicrobialStart: 21-40-2077ghyw 1 tablet by mouth twice dailyBiaxin 500 MG 1 tablet Orally Twice a day for 10 day(s) Sep, Not-Takingdiclofenac sodium 75 mg delayed release oral tablet (11 sources)Nonsteroidal Anti-inflammatory DrugStart: 05-26-2021 End: 23-07-3167znff 1 tablet by mouth twice daily as [...] oral capsule (8 sources)Anti-epileptic AgentStart: 09-30-2024 End: 25-45-3769pugi 3 capsules by mouth three times dailyGabapentin 300 mg capsule Discontinued 900 MG PO Three times daily September 30, 2024 12:00am November 04, 2024 11:14ammethylPREDNISolone (20 sources)CorticosteroidStart: 04-15-2024 End: 63-16-7218krudlhAFJZFISxghkz (Medrol Dospak) 4 MG tablets Indications: Acute pain of left knee Follow schedule on package instructions 21 tablet 04/15/2024 06/23/2024 Discontinued (Therapy completed)Start: 04-15-2024 methylPREDNISolone (Medrol Dospak) 4 MG tablets Indications: Acute pain of left knee Follow schedule on package instructions 21 tablet 04/15/2024 ActiveStart: 12-31-2023 End: 62-94-4142zoqrfkMRTVYFGcajrd (Medrol Dospak) 4 MG tablets Indications: S/P left knee arthroscopy , Left knee pain, unspecified chronicity Follow schedule on package instructions 21 tablet 12/31/2023 06/23/2024Discontinued (Therapy completed)Start: 02-68-8726iqbospGBHRLWDvvxdt (Medrol Dospak) 4 MG tablets Indications: S/P left knee arthroscopy , Left knee pain, unspecified chronicity Follow schedule on package instructions 21 tablet 12/31/2023 Activeomeprazole 40 mg delayed release oral capsule (20 sources)Proton Pump InhibitorStart: 05-26-2021 End: 45-66-5523csek 1 capsule by mouth once dailyOmeprazole 40 mg capsule,delayed release(DR/EC) Discontinued 40 MG PO Daily 30 30 5 June 19, 2024 1:02pm November 12, 2024 10:46amStart: 37-89-9235scsccysrsf Oral, Daily, Refills(s) 0, Control of stomach acid Start Date: 01/28/20 Status: Ordered End: 36-56-9450fraaknrwvq (PriLOSEC) [address] capsule 1 (one) time each day at the same time 06/23/2024 Discontinued (Therapy completed)pregabalin 50 mg oral capsule (6 sources)Start: 11-04-2024 End: 06-07-2625drzi 1 capsule by mouth three times dailyPregabalin (Lyrica) 50 mg capsule Discontinued 50 MG PO Three times daily November 04, 2024 12:00am November 12, 2024 10:41am Problems Active Problems Problem ClassificationProblemDateDocumented DateEpisodic/ChronicAbdominal pain (9 sources)Abdominal pain; Translations: [Unspecified abdominal pain]12-03-2023 EpisodicAnxiety disorders (20 sources)Mixed anxiety and depressive disorder; Translations: [Other specified anxiety disorders]Onset: 75-64-8494XpwqjiqKsoousi on above:Problem List clean-up per request of Phys. EHR CmteDisorders of lipid metabolism (20 sources)Hyperlipidemia, unspecified; Translations: [Hyperlipoproteinemia] Onset: 96-52-7694IegbbjbSasdqxdsoa disorders (17 sources)Gastroesophageal reflux disease; Translations: [Gastro-esophageal reflux disease without esophagitis]Onset: 82-33-8664RvwvbvcFmjos and electrolyte disorders (6 sources)Psbpqylminl74-52-4597NyxbedgoNilcg disorders and dislocations; trauma-related (6 sources)Derangement of left knee; Translations: [Unspecified internal derangement of left knee]81-90-3386AdorssmYxdwl disorders and dislocations; trauma-related (5 sources)Acute tear of medial meniscus of right knee; Translations: [Other tear of medial meniscus, current injury, right knee, initial encounter] 77-57-7499QnrelquyAmtrxxpjd of unspecified nature or uncertain behavior (6 sources)Neoplasm of thyroid cbaxv55-73-1803AllzbmzuWzirtfynkgyok gastroenteritis (17 sources)Chronic diarrhea; Translations: [Noninfective gastroenteritis and colitis, unspecified]Onset: 83-21-5843LkocnhcfHasmccnkmpeh breast conditions (3 sources)Breast signs and symptoms; Translations: [Other signs and symptoms in breast]EpisodicOsteoarthritis (20 sources)Osteoarthritis; Translations: [Unspecified osteoarthritis, unspecified site]Onset: 514673-03-5266WcqwhsdYsvaz circulatory disease (3 sources)Elevated blood-pressure reading without diagnosis of hypertension; Translations: [Elevated blood-pressure reading, without diagnosis of hypertension]EpisodicOther connective tissue disease (4 sources)Other muscle spasm; Translations: [OTHER MUSCLE SPASM]Onset: 70-80-5889JwuumdyrWqgxk connective tissue disease (20 sources)Pain in right foot; Translations: [Pain in right foot]Onset: 614828-90-7053NccoiqalFfdxu connective tissue disease (2 sources)Pain in right footEpisodicOther connective tissue disease (1 source)Iliotibial band syndrome, left legEpisodicOther connective tissue disease (1 source)Foot pain; Translations: [Pain in right foot]85-28-0002NfjdameeHshaj lower respiratory disease (3 sources)Lung field abnormal; Translations: [Other nonspecific abnormal finding of lung field]EpisodicOther nervous system disorders (9 sources)Carpal tunnel syndrome; Translations: [Carpal tunnel syndrome, unspecified upper limb]Onset: [id number] non-traumatic joint disorders (10 sources)Pain in left knee; Translations: [Pain in joint, lower leg] 94-17-7104BmynhgaqHmfcx non-traumatic joint disorders (4 sources)Pain in right knee; Translations: [Pain in joint, lower leg] 09-27-7693AvtbjwzjXrvis nutritional; endocrine; and metabolic disorders (4 sources)Body mass index 30+ - obesity; Translations: [Body mass index (BMI) 35.0-35.9, adult]ChronicOther nutritional; endocrine; and metabolic disorders (9 sources)Obese class II; Translations: [Body mass index (BMI) 35.0-35.9, adult]62-81-8392GiugynxTckpe nutritional; endocrine; and metabolic disorders (6 sources)Brysvyecomgdgs77-00-9830ZwzrtlvSzexx screening for suspected conditions (not mental disorders or infectious disease) (14 sources)Encounter for screening mammogram for malignant neoplasm of breast; Translations: [Patient encounter status]Onset: 75-03-4285UxjfngvkPohub upper respiratory disease (3 sources)Seasonal allergic rhinitis; Translations: [Other seasonal allergic rhinitis]Onset: 74-48-3812ZkaovlxPsktbnlj enteritis and ulcerative colitis (20 sources)Chronic ulcerative pancolitis; Translations: [Ulcerative (chronic) pancolitis without complications]Onset: 06-77-5555WxtfaitVsoejejo codes; unclassified (20 sources)Obstructive sleep apnea syndrome; Translations: [Obstructive sleep apnea (adult) (pediatric)]Onset: 827149-46-4362RzjmubcQkqsgtfb codes; unclassified (10 sources)History of arthroscopy of knee joint; Translations: [Other specified postprocedural states]31-75-4413BlymvekyIputsbey codes; unclassified (4 sources)History of arthroscopy of knee joint; Translations: [Other specified postprocedural states]17-67-8485RufkwkclAozwphfgsmm; intervertebral disc disorders; other back problems (6 sources)Spondylosis without myelopathy or radiculopathy, lumbar region; Translations: [Other intervertebraldisc degeneration, lumbar region]Onset: 10-91-9169LcliaghTcnfuoucjbg; intervertebral disc disorders; other back problems (20 sources)Muscle spasm of back; Translations: [Low back pain]Onset: 02-13-2018 EpisodicSubstance-related disorders (7 sources)Nicotine dependence, cigarettes, uncomplicated; Translations: [Tobacco user]Onset: 29-24-0002DitlfbdGzoobub disorders (20 sources)Nontoxic goiter, unspecified; Translations: [Hypothyroidism, unspecified]Onset: 98-70-8023EbohocjWvtiyhtuweun (4 sources)LOW BACK PAIN, UNSPECIFIED; Translations: [LOW BACK PAIN, UNSPECIFIED]Onset: 87-17-9450Vejixhmvthpf (1 source)CONTACT W/AND (SUSP) EXPOS COVID-19; Translations: [CONTACT W/AND (SUSP) EXPOS COVID-19]Onset: 35-20-9964Oapspkqarufa (2 sources)Preprocedural examination pngc63-31-7541Siztmzycrbad (2 sources)M54.16 - Radiculopathy, lumbar regionUnclassified (4 sources)Please call the office on Saturday to schedule a follow up appointment in 2 weeks Past or Other Problems Problem ClassificationProblemDateDocumented DateEpisodic/ChronicOther circulatory disease (3 sources)Orthostatic hypotension; Translations: [Orthostatic hypotension] Onset: 92-12-0430ZdxxrrnoXrtsn lower respiratory disease (4 sources)Other nonspecific abnormal finding of lung field; Translations: [OTH NONSPECIFIC ABN FIND LNG FIELD]Onset: 65-39-3424CphtphudEegcv lower respiratory disease (9 sources)Dyspnea; Translations: [Other forms of dyspnea]Onset: 06-17-2018 16-68-4060EngbrcqkWbuvt nervous system disorders (3 sources)Paresthesia; Translations: [Paresthesia of skin]Onset: 02-13-2018 EpisodicOther nervous system disorders (1 source)Postoperative pain ; Translations: [Other acute postprocedural pain] 19-62-3546EfyzhlypTvahh non-traumatic joint disorders (1 source)Pain in left hip; Translations: [PAIN IN LEFT HIP]Onset: 04-21-2021 EpisodicResidual codes; unclassified (6 sources)Tobacco userOnset: 216323-00-8649VsmngrnyHxsonnkzqtfb (1 source)LOW BACK PAIN, UNSPECIFIED; Translations: [LOW [...] have to be seen in the office again.[facility] Metabolic Panelon 31-06-9711Kgzah gap [Moles/Vol]9.6 mmol/LNormal6.0-15.0The [facility] Physician GroupComment on above:Performed By: #### PTT, BMP, PT, CBC #### [place] [address] USACalcium [Mass/Vol]8.2 mg/dLLow8.6-10.3The [facility] Physician GroupComment on above:Performed By: #### PTT, BMP, PT, CBC #### [place] [address] USAChloride [Moles/Vol]103 mmol/IAmhjfw26-912Puo [facility] Physician GroupComment on above:Performed By: #### PTT, BMP, PT, CBC #### [place] [address] USACO2 [Moles/Vol]26.9 mmol/GMiwfha68.0-31.0The [facility] Physician GroupComment on above:Performed By: #### PTT, BMP, PT, CBC #### [place] [address] USACreatinine [Mass/Vol]0.45 mg/dLLow0.60-1.20The [facility] Physician GroupComment on above:Performed By: #### PTT, BMP, PT, CBC #### [place] [address] USACreatinine Clr Calc Lbsiyyos79.10NormalThe [facility] Physician GroupComment on above:Result Comment: PERFORMED BY: [place] [address] PATHOLOGIST [employer]K OFFICER MEGAN BENDER M.D.Performed By: #### PTT, BMP, PT, CBC #### [place] [address] USAGFR/1.73 sq M.predicted MDRD (S/P/Bld) [Vol rate/Area] mL/min/{1.73_m2}NormalThe [facility] Physician GroupComment on above:Performed By: #### PTT, BMP, PT, CBC #### [place] [address] USAGlucose [Mass/Vol]127 mg/tLCanu91-693Pzl [facility] Physician GroupComment on above:Result Comment: Random Glucose Reference Range is dependent on time and content of last meal. Glucose of more than 200 mg/dL in a nonstressed, ambulatory subject supports the diagnosis of Diabetes Mellitus. ADA recommended reference rangePerformed By: #### PTT, BMP, PT, CBC #### [place] [address] USAPotassium [Moles/Vol]3.5 mmol/LNormal3.5-5.1The [facility] Physician GroupComment on above:Performed By: #### PTT, BMP, PT, CBC #### [place] [address] USASodium [Moles/Vol]136 mmol/DSucank673-126Zfs [facility] Physician GroupComment on above:Performed By: #### PTT, BMP, PT, CBC #### [place] [address] USAUrea nitrogen [Mass/Vol]7 mg/dLNormal7-25The [facility] Physician GroupComment on above:Performed By: #### PTT, BMP, PT, CBC #### [place] [address] USAComplete Blood Count Auto Diffon 98-17-6718Wqytlqzvr (Bld) [#/Vol]0.1 10*3/uLNormal0.0-0.2The [facility] Physician GroupComment on above: Result Comment: PERFORMED BY: [place] [address] PATHOLOGIST FLIGHT [employer]K OFFICER MEGAN BENDER M.D.Performed By: #### PTT, BMP, PT, CBC #### [place] [address] USABasophils/100 WBC (Bld)0.8 %Normal.The [facility] Physician GroupComment on above:Performed By: #### PTT, BMP, PT, CBC #### [place] [address] USAEosinophils (Bld) [#/Vol]0.0 10*3/uLNormal0.0-0.45The [facility] Physician GroupComment on above:Performed By: #### PTT, BMP, PT, CBC #### [place] [address] USAEosinophils/100 WBC (Bld)0.2 %Normal.The [facility] Physician GroupComment on above:Performed By: #### PTT, BMP, PT, CBC #### [place] [address] USAErythrocyte distribution width (RBC) [Ratio]15.1 %Normal 11.9-15.3The [facility] Physician GroupComment on above:Performed By: #### PTT, BMP, PT, CBC #### [place] [address] USAHematocrit (Bld) [Volume fraction]24.2 %Low34.0-46.4The [facility] Physician GroupComment on above:Performed By: #### PTT, BMP, PT, CBC #### [place] [address] USAHemoglobin (Bld) [Mass/Vol]8.1 g/dLLow11.8-15.4The [facility] Physician GroupComment on above:Performed By: #### PTT, BMP, PT, CBC #### [place] [address] USALymphocytes (Bld) [#/Vol]1.1 10*3/uLNormal1.00-4.8The [facility] Physician GroupComment on above:Performed By: #### PTT, BMP, PT, CBC #### [place] [address] USALymphocytes/100 WBC (Bld)12.7 %Normal.The [facility] Physician GroupComment on above:Performed By: #### PTT, BMP, PT, CBC #### [place] [address] USAMCH (RBC) [Entitic mass]30.8 onApxwcf43.7-34.3The [facility] Physician GroupComment on above:Performed By: #### PTT, BMP, PT, CBC #### [place] [address] USAMCV (RBC) [Entitic vol]91.6 bMHbxycs52-258Rzd [facility] Physician GroupComment on above:Performed By: #### PTT, BMP, PT, CBC #### [place] [address] USAMean Corpuscular HGB Conc33.7 g/tZZipyho78.0-35.0The [facility] Physician GroupComment on above:Performed By: #### PTT, BMP, PT, CBC #### [place] [address] USAMonocytes (Bld) [#/Vol]0.9 10*3/uLHigh0.0-0.8The [facility] Physician GroupComment on above:Performed By: #### PTT, BMP, PT, CBC #### [place] [address] USAMonocytes/100 WBC (Bld)10.4 %Normal.The [facility] Physician GroupComment on above:Performed By: #### PTT, BMP, PT, CBC #### [place] [address] USANeutrophils (Bld) [#/Vol]6.5 10*3/uLNormal1.8-7.7The [facility] Physician GroupComment on above:Performed By: #### PTT, BMP, PT, CBC #### [place] [address] USANeutrophils/100 WBC (Bld)75.9 %Normal.The [facility] Physician GroupComment on above:Performed By: #### PTT, BMP, PT, CBC #### [place] [address] USANRBC%0.0 /100{WBC}Normal0-0.5The [facility] Comment on above:Performed By: #### PTT, BMP, PT, CBC #### [place] [address] USAPlatelet mean volume (Bld) [Entitic vol]8.2 fLNormal 6.3-10.7The [facility] Physician GroupComment on above:Performed By: #### PTT, BMP, PT, CBC #### [place] [address] USAPlatelets (Bld) [#/Vol]178 10*3/wJRhgcyg761-032Rgr [facility] Physician GroupComment on above:Performed By: #### PTT, BMP, PT, CBC #### [place] [address] USARBC (Bld) [#/Vol]2.64 10*6/uLLow3.60-5.00The [facility] Physician GroupComment on above:Performed By: #### PTT, BMP, PT, CBC #### [place] [address] USAWBC (Bld) [#/Vol]8.6 10*3/uLNormal3.8-11.6The [facility] Physician GroupComment on above:Performed By: #### PTT, BMP, PT, CBC #### [place] [address] USAWhite Blood Count8.6 [CFU]/mLNormal3.8-11.6The [facility] Physician GroupComment on above:Performed By: #### PTT, BMP, PT, CBC #### [place] [address] USABasic Metabolic Panelon 44-37-0887Canks gap [Moles/Vol]8.7 mmol/LNormal6.0-15.0The [facility] Physician GroupComment on above:Performed By: #### PTT, BMP, PT, CBC #### [place] [address] USACalcium [Mass/Vol]8.2 mg/dLLow8.6-10.3The [facility] Physician GroupComment on above:Performed By: #### PTT, BMP, PT, CBC #### [facility] [address] [place] [address] USAChloride [Moles/Vol]104 mmol/DYsdzqs25-500Krm [facility] Physician GroupComment on above:Performed By: #### PTT, BMP, PT, CBC #### [facility] [address] [place] [address] USACO2 [Moles/Vol]26.1 mmol/MFkfwgu60.0-31.0The [facility] Physician GroupComment on above:Performed By: #### PTT, BMP, PT, CBC #### [facility] [address] [place] [address] USACreatinine [Mass/Vol]0.54 mg/dLLow0.60-1.20The [facility] Physician GroupComment on above:Performed By: #### PTT, BMP, PT, CBC #### [place] [address] USACreatinine Clr Calc Nzasnbqd14.10NormalThe [facility] Physician GroupComment on above:Result Comment: PERFORMED BY: [place] [address] PATHOLOGIST [employer] OFFICER MEGAN BENDER M.D.Performed By: #### PTT, BMP, PT, CBC #### [place] [address] USAGFR/1.73 sq M.predicted MDRD (S/P/Bld) [Vol rate/Area] mL/min/{1.73_m2}NormalThe [facility] Physician GroupComment on above:Performed By: #### PTT, BMP, PT, CBC #### [place] [address] USAGlucose [Mass/Vol]154 mg/nKJvwp01-822Kco [facility] Physician GroupComment on above:Result Comment: Random Glucose Reference Range is dependent on time and content of last meal. Glucose of more than 200 mg/dL in a nonstressed, ambulatory subject supports the diagnosis of Diabetes Mellitus. ADA recommended reference rangePerformed By: #### PTT, BMP, PT, CBC #### [place] [id number] USAPotassium [Moles/Vol]3.8 mmol/LNormal3.5-5.1The [facility] Physician GroupComment on above:Performed By: #### PTT, BMP, PT, CBC #### [place] [address] USASodium [Moles/Vol]135 mmol/IZrr193-818Vqp [facility] Physician GroupComment on above:Performed By: #### PTT, BMP, PT, CBC #### [place] [address] USAUrea nitrogen [Mass/Vol]8 mg/dLNormal7-25The [facility] Physician GroupComment on above:Performed By: #### PTT, BMP, PT, CBC #### [place] [address] USAComplete Blood Count Auto Diffon 83-92-2032Truiuvdrm (Bld) [#/Vol]0.1 10*3/uLNormal0.0-0.2The [facility] Physician GroupComment on above: Result Comment: PERFORMED BY: [place] [address] PATHOLOGIST [employer] OFFICER MEGAN BENDER M.D.Performed By: #### PTT, BMP, PT, CBC #### [place] [address] USABasophils/100 WBC (Bld)0.5 %Normal.The [facility] Physician GroupComment on above:Performed By: #### PTT, BMP, PT, CBC #### [place] [address] USAEosinophils (Bld) [#/Vol]0.0 10*3/uLNormal0.0-0.45The [facility] Physician GroupComment on above:Performed By: #### PTT, BMP, PT, CBC #### [place] [address] USAEosinophils/100 WBC (Bld)0.2 %Normal.The [facility] Physician GroupComment on above:Performed By: #### PTT, BMP, PT, CBC #### [place] [address] USAErythrocyte distribution width (RBC) [Ratio]14.8 %Normal 11.9-15.3The [facility] Physician GroupComment on above:Performed By: #### PTT, BMP, PT, CBC #### [place] [address] USAHematocrit (Bld) [Volume fraction]23.6 %Low34.0-46.4The [facility] Physician GroupComment on above:Performed By: #### PTT, BMP, PT, CBC #### [place] [address] USAHemoglobin (Bld) [Mass/Vol]7.9 g/dLLow11.8-15.4The [facility] Physician GroupComment on above:Performed By: #### PTT, BMP, PT, CBC #### [place] [address] USALymphocytes (Bld) [#/Vol]0.9 10*3/uLLow1.00-4.8The [facility] Physician GroupComment on above:Performed By: #### PTT, BMP, PT, CBC #### [place] [address] USALymphocytes/100 WBC (Bld)9.9 %Normal.The [facility] Physician GroupComment on above:Performed By: #### PTT, BMP, PT, CBC #### [place] [address] USAMCH (RBC) [Entitic mass]30.9 auHenppo72.7-34.3The [facility] Physician GroupComment on above:Performed By: #### PTT, BMP, PT, CBC #### [place] [address] USAMCV (RBC) [Entitic vol]92.2 wIXrbgxl60-207Ojc [facility] Physician GroupComment on above:Performed By: #### PTT, BMP, PT, CBC #### [place] [id number] USAMean Corpuscular HGB Conc33.5 g/fZZqcdeh86.0-35.0The [facility] Physician GroupComment on above:Performed By: #### PTT, BMP, PT, CBC #### [place] [address] USAMonocytes (Bld) [#/Vol]0.9 10*3/uLHigh0.0-0.8The [facility] Physician GroupComment on above:Performed By: #### PTT, BMP, PT, CBC #### [place] [address] USAMonocytes/100 WBC (Bld)9.2 %Normal.The [facility] Physician GroupComment on above:Performed By: #### PTT, BMP, PT, CBC #### [place] [address] USANeutrophils (Bld) [#/Vol]7.7 10*3/uLNormal1.8-7.7The [facility] Physician GroupComment on above:Performed By: #### PTT, BMP, PT, CBC #### [place] [address] USANeutrophils/100 WBC (Bld)80.2 %Normal.The [facility] Physician GroupComment on above:Performed By: #### PTT, BMP, PT, CBC #### [place] [address] USANRBC%0.1 /100{WBC}Normal0-0.5The [facility] Comment on above:Performed By: #### PTT, BMP, PT, CBC #### [place] [address] USAPlatelet mean volume (Bld) [Entitic vol]8.6 fLNormal 6.3-10.7The [facility] Physician GroupComment on above:Performed By: #### PTT, BMP, PT, CBC #### [place] [address] USAPlatelets (Bld) [#/Vol]172 10*3/lACaijcc749-935Uls [facility] Physician GroupComment on above:Performed By: #### PTT, BMP, PT, CBC #### [facility] [address] [place] [address] USARBC (Bld) [#/Vol]2.56 10*6/uLLow3.60-5.00The [facility] Physician GroupComment on above:Performed By: #### PTT, BMP, PT, CBC #### [facility] [address] [place] [address] USAWBC (Bld) [#/Vol]9.6 10*3/uLNormal3.8-11.6The [facility] Physician GroupComment on above:Performed By: #### PTT, BMP, PT, CBC #### [place] [address] USAWhite Blood Count9.6 [CFU]/mLNormal3.8-11.6The [facility] Physician GroupComment on above:Performed By: #### PTT, BMP, PT, CBC #### [place] [address] USABasic Metabolic Panelon 73-63-2513Jwinx gap [Moles/Vol] 10.2 mmol/LNormal6.0-15.0The [facility] Physician GroupComment on above:Performed By: #### BMP, CBC #### [place] [address] USACalcium [Mass/Vol]7.9 mg/dLLow8.6-10.3The [facility] Physician GroupComment on above:Performed By: #### BMP, CBC #### [place] [address] USAChloride [Moles/Vol]105 mmol/CLjuujg07-019Syk [facility] Physician GroupComment on above:Performed By: #### BMP, CBC #### [place] [address] USACO2 [Moles/Vol]23.7 mmol/GYuswea06.0-31.0The [facility] Physician GroupComment on above:Performed By: #### BMP, CBC #### [address] [place] [address] USACreatinine [Mass/Vol]0.74 mg/dLNormal0.60-1.20The [facility] Physician GroupComment on above:Performed By: #### BMP, CBC #### [place] [address] USACreatinine Clr Calc Jhwozeff90.46NormalThe [facility] Physician GroupComment on above:Result Comment: PERFORMED BY: [place] [address] PATHOLOGIST [employer] OFFICER MEGAN BENDER M.D.Performed By: #### BMP, CBC #### [place] [address] USAGFR/1.73 sq M.predicted MDRD (S/P/Bld) [Vol rate/Area] mL/min/{1.73_m2}NormalThe [facility] Physician GroupComment on above:Performed By: #### BMP, CBC #### [place] [address] USAGlucose [Mass/Vol]129 mg/bCKsch39-982Acm [facility] Physician GroupComment on above:Result Comment: Random Glucose Reference Range is dependent on time and content of last meal. Glucose of more than 200 mg/dL in a nonstressed, ambulatory subject supports the diagnosis of Diabetes Mellitus. ADA recommended reference rangePerformed By: #### BMP, CBC #### [place] [address] USAPotassium [Moles/Vol]3.9 mmol/LNormal3.5-5.1The [facility] Physician GroupComment on above:Performed By: #### BMP, CBC #### [place] [address] USASodium [Moles/Vol]135 mmol/ASkc089-124Jmg [facility] Physician GroupComment on above:Performed By: #### BMP, CBC #### [place] [address] USAUrea nitrogen [Mass/Vol]9 mg/dLNormal7-25The [facility] Physician GroupComment on above:Performed By: #### BMP, CBC #### [place] [address] USAComplete Blood Count Auto Diffon 39-78-9392Csbtjptcl (Bld) [#/Vol]0.1 10*3/uLNormal0.0-0.2The [facility] Physician GroupComment on above: Result Comment: PERFORMED BY: [place] [address] PATHOLOGIST FL[employer]K OFFICER MEGAN BENDER M.D.Performed By: #### PTT, BMP, PT, CBC #### [place] [address] USABasophils/100 WBC (Bld)0.5 %Normal.The [facility] Physician GroupComment on above:Performed By: #### PTT, BMP, PT, CBC #### [place] [address] USAEosinophils (Bld) [#/Vol]0.0 10*3/uLNormal0.0-0.45The [facility] Physician GroupComment on above:Performed By: #### PTT, BMP, PT, CBC #### [place] [address] USAEosinophils/100 WBC (Bld)0.2 %Normal.The [facility] Physician GroupComment on above:Performed By: #### PTT, BMP, PT, CBC #### [place] [address] USAErythrocyte distribution width (RBC) [Ratio]14.7 %Normal 11.9-15.3The [facility] Physician GroupComment on above:Performed By: #### PTT, BMP, PT, CBC #### [place] [address] USAHematocrit (Bld) [Volume fraction]27.3 %Low34.0-46.4The [facility] Physician GroupComment on above:Performed By: #### PTT, BMP, PT, CBC #### [place] [address] USAHemoglobin (Bld) [Mass/Vol]9.0 g/dLLow11.8-15.4The [facility] Physician GroupComment on above:Performed By: #### PTT, BMP, PT, CBC #### [place] [address] USALymphocytes (Bld) [#/Vol]1.2 10*3/uLNormal1.00-4.8The [facility] Physician GroupComment on above:Performed By: #### PTT, BMP, PT, CBC #### [place] [address] USALymphocytes/100 WBC (Bld)11.1 %Normal.The [facility] Physician GroupComment on above:Performed By: #### PTT, BMP, PT, CBC #### [place] [address] USAMCH (RBC) [Entitic mass]30.7 zxFgsmih44.7-34.3The [facility] Physician GroupComment on above:Performed By: #### PTT, BMP, PT, CBC #### [place] [address] USAMCV (RBC) [Entitic vol]93.1 vNHjrvvh78-143Icg [facility] Physician GroupComment on above:Performed By: #### PTT, BMP, PT, CBC #### [place] [address] USAMean Corpuscular HGB Conc33.0 g/rGQlanzj83.0-35.0The [facility] Physician GroupComment on above:Performed By: #### PTT, BMP, PT, CBC #### [place] [address] USAMonocytes (Bld) [#/Vol]1.2 10*3/uLHigh0.0-0.8The [facility] Physician GroupComment on above:Performed By: #### PTT, BMP, PT, CBC #### [place] [address] USAMonocytes/100 WBC (Bld)11.5 %Normal.The [facility] Physician GroupComment on above:Performed By: #### PTT, BMP, PT, CBC #### [place] [address] USANeutrophils (Bld) [#/Vol]8.0 10*3/uLHigh1.8-7.7The [facility] Physician GroupComment on above:Performed By: #### PTT, BMP, PT, CBC #### [place] [address] USANeutrophils/100 WBC (Bld)76.7 %Normal.The [facility] Physician GroupComment on above:Performed By: #### PTT, BMP, PT, CBC #### [place] [address] USANRBC%0.1 /100{WBC}Normal0-0.5The [facility] Comment on above:Performed By: #### PTT, BMP, PT, CBC #### [place] [address] USAPlatelet mean volume (Bld) [Entitic vol]8.6 fLNormal 6.3-10.7The [facility] Physician GroupComment on above:Performed By: #### PTT, BMP, PT, CBC #### [place] [address] USAPlatelets (Bld) [#/Vol]196 10*3/oBHmuydr760-808Uho [facility] Physician GroupComment on above:Performed By: #### PTT, BMP, PT, CBC #### [place] [address] USARBC (Bld) [#/Vol]2.93 10*6/uLLow3.60-5.00The [facility] Physician GroupComment on above:Performed By: #### PTT, BMP, PT, CBC #### [place] [address] USAWBC (Bld) [#/Vol]10.4 10*3/uLNormal3.8-11.6The [facility] Physician GroupComment on above:Performed By: #### PTT, BMP, PT, CBC #### [facility] [address] [place] [id number] USAWhite Blood Count10.4 [CFU]/mLNormal3.8-11.6The [facility] Physician GroupComment on above:Performed By: #### PTT, BMP, PT, CBC #### [facility] [address] [place] [id number] USAXR lumbar spine 2-3V*on [id number] lumbar spine 2-3V* [facility] [place] [address] [place] [address] XRay Report Signed Patient: Alexandra Cervantes MR#: [id number] 2 : 1950 Acct:[id number] Age/Sex: 74 / F ADM Date: 11/26/24 Loc: Room: [address] [place] [address] Type: ADM IN Attending Dr: Nasim Segal [...] 8:35 AM Dictation Location: RADIO-PC-23 Transcribed By: [facility] 11/27/2435 Dictated By: Rad Jung II, MD 11/27/2433 Signed By: 11/27/24 0835[facility] Physician GroupXR lumbar spine 2-3V*on [id number] lumbar spine 2-3V*[facility] [place] [address] [place] [address] XRay Report Signed Patient: Alexandra Cervantes MR#: [id number] 2 : 1950 Acct:[id number] Age/Sex: 74 / F ADM Date: 11/26/24 Loc: Room: [address] [place] [address] Type: ADM IN Attending Dr: Nasim Segal [...] Jr, DO 11/26/24 155 Signed By: 11/26/24 1555[facility]Basic Metabolic Panelon [id number]/1.73 sq M.predicted MDRD (S/P/Bld) [Vol rate/Area]mL/min/{1.73_m2} NormalThe Granville [facility] Center Physician GroupComment on above:Performed By: #### PTT, BMP, PT, CBC #### [place] [address] USABasophils [#/volume] in Blood by Automated countOrdered By: Nasim Segal on 52-15-6797Xojdwzedx (Bld) [#/Vol]0.0 10*3/uLNormal0.0-0.2 [facility] HospitalComment on above:Result Comment: PERFORMED BY: [place] [address] PATHOLOGIST FLIGHT DECK OFFICER MEGAN BENDER M.D.Performed By: #### PTT, BMP, PT, CBC #### [facility] [address] [place] [address] USABasophils/100 leukocytes in Blood by Automated count Ordered By: Nasim Segal on 09-10-0868Baokbxxea/100 WBC (Bld)0.6 %Normal. [facility] HospitalComment on above:Performed By: #### PTT, BMP, PT, CBC #### [facility] [address] [place] [address] USACalcium [Mass/volume] in Serum or PlasmaOrdered By: Nasim Segal on 28-71-1244Kuhhbsh [Mass/Vol]9.2 mg/dLNormal8.6-10.3FCommunity Memorial HospitalComment on above:Result Comment: PERFORMED BY: [place] [address] PATHOLOGIST FLIGHT DECK OFFICER MEGAN BENDER M.D.Performed By: #### PTT, BMP, PT, CBC #### [facility] [address] [place], [place] [id number] USACarbon dioxide, total [Moles/volume] in Serum or Plasma Ordered By: Nasim Segal on 13-72-0233HC4 [Moles/Vol]26.7 mmol/ZXdjdvg46.0-31.0 [facility] HospitalComment on above:Performed By: #### PTT, BMP, PT, CBC #### [facility] [address] [place] [address] USAChloride [Moles/volume] in Serum or PlasmaOrdered By: Nasim Segal on 35-31-7220Juuttlfd [Moles/Vol]100 mmol/FIkkwga66-929RpwlecibnAvita Health System Bucyrus HospitalComment on above:Performed By: #### PTT, BMP, PT, CBC #### [facility] [address] [place] [address] USAComplete Blood Count Auto Diffon 67-66-6764Ppzp Corpuscular HGB Conc33.6 g/hKHzvikc74.0-35.0The [facility] Physician GroupComment on above:Performed By: #### PTT, BMP, PT, CBC #### [facility] [address] [place] [address] USANRBC%0.1 /100{WBC}Normal0-0.5[facility] Comment on above:Performed By: #### PTT, BMP, PT, CBC #### [place] [address] USAWhite Blood Count5.7 [CFU]/mLNormal3.8-11.6[facility] Physician [facility] Memorial HospitalComment on above:Performed By: #### PTT, BMP, PT, CBC #### [place] [address] USACreatinine [Mass/volume] in Serum or PlasmaOrdered By: Nasim Segal on 94-97-1459Rmglfmywvk [Mass/Vol]0.62 mg/dLNormal0.60-1.20 [facility] HospitalComment on above:Performed By: #### PTT, BMP, PT, CBC #### [place] [address] USAECG 12 lead ECGon 66-80-9977RGC 12 lead ECGST. [facility] Main [place] [address] [place] [address] Electrocardiograph Report Signed Patient: Alexandra Cervantes MR#: [id number] 2 : 1950 Acct:[id number] Age/Sex: 74 / F ADM Date: 11/12/24 Loc: [place] Room: Type: [facility] Attending Dr: Nasim Segal DO Ordering Provider: [...] axis shifted left Confirmed by Larissa Chao ([id number]) on 11/13/2024 10:43:41 PM Referred By: Electronically Signed By: Larissa Chao Transcribed By: MUS Signed By Larissa Chao MD 11/13/[address] [place] [address] Physician GroupEosinophils [#/volume] in Blood by Automated countOrdered By: Nasim Segal on 82-18-0030Tvjnhwaptjd (Bld) [#/Vol]0.0 10*3/uLNormal0.0-0.45[facility] HospitalComment on above:Performed By: #### PTT, BMP, PT, CBC #### [facility] [address] [place] [address] USAEosinophils/100 leukocytes in Blood by Automated count Ordered By: Nasim Segal on 79-72-5376Rgjkrluwyqf/100 WBC (Bld)0.2 %Normal. [facility] HospitalComment on above:Performed By: #### PTT, BMP, PT, CBC #### [facility] [address] [place] [address] USAErythrocyte distribution width [Ratio] by Automated count Ordered By: Nasim Segal on 98-68-0645Xyycourovum distribution width (RBC) [Ratio]14.5 %Yfbcoz64.9-15.3FCommunity Memorial HospitalComment on above: Performed By: #### PTT, BMP, PT, CBC #### [facility] [address] [place] [id number] USAErythrocytes [#/volume] in Blood by Automated countOrdered By: Nasim Segal on 34-45-6975AKH (Bld) [#/Vol]4.27 10*6/uLNormal3.60-5.00 [facility] HospitalComment on above:Performed By: #### PTT, BMP, PT, CBC #### [facility] [address] [place] [address] USAGlomerular filtration rate [Volume Rate/Area] in Serum, Plasma or Blood by CreatinineOrdered By: Nasim Segal on 49-29-4249Sgrilrcgnb filtration rate [Volume Rate/Area] in Serum, Plasma or Blood by Creatinine> 60.0 mL/MinAvita Health System Bucyrus HospitalGlucose [Mass/volume] in Serum or Plasma Ordered By: Nasim Segal on 14-51-7978Ivbjsij [Mass/Vol]100 mg/zGNxayuu81-458 [facility] HospitalComment on above:ADA recommended reference rangeRandom Glucose [...] By: #### PTT, BMP, PT, CBC #### [facility] [address] [place] [address] USAHematocrit [Volume Fraction] of Blood by Automated count Ordered By: Nasim Segal on 36-45-6259Anerwvufgu (Bld) [Volume fraction]39.4 % Rxwrxe12.0-46.4FCommunity Memorial HospitalComment on above:Performed By: #### PTT, BMP, PT, CBC #### [facility] [address] [place] [address] USAHemoglobin [Mass/volume] in BloodOrdered By: Nasim Segal on 44-75-0896Xonqoticgq (Bld) [Mass/Vol]13.2 g/kGMmcwly77.8-15.4FCommunity Memorial HospitalComment on above:Performed By: #### PTT, BMP, PT, CBC #### [facility] [address] [place] [address] USAINR in Platelet poor plasma by Coagulation assayOrdered By: Nasim Segal on 38-19-4677EUZ Coag (PPP) [Relative time]1.0 {INR}Normal [facility] HospitalComment on above:INR Therapeutic Range A) Pre- [...] By: #### PTT, BMP, PT, CBC #### [facility] [address] [place] [address] USALeukocytes [#/volume] corrected for nucleated erythrocytes in Blood by Automated counOrdered By: Nasim Segal on 52-92-5159PGJ corrected for nucl RBC Auto (Bld) [#/Vol]5.7 10*3/uL3.8-11.6FCommunity Memorial HospitalLeukocytes [#/volume] in Blood by Automated countOrdered By: Nasim Segal on 48-32-5377JPL (Bld) [#/Vol]5.7 10*3/uLNormal3.8-11.6FCommunity Memorial HospitalComment on above:Performed By: #### PTT, BMP, PT, CBC #### [facility] [address] [place] [address] USALymphocytes [#/volume] in Blood by Automated countOrdered By: Nasim Segal on 96-49-9657Asjqyoemxrs (Bld) [#/Vol]1.1 10*3/uLNormal 1.00-4.8[facility] HospitalComment on above:Performed By: #### PTT, BMP, PT, CBC #### [facility] [address] [place] [address] USALymphocytes/100 leukocytes in Blood by Automated count Ordered By: Nasim Segal on 67-32-9494Nqyakoundcm/100 WBC (Bld)18.7 %Normal. [facility] HospitalComment on above:Performed By: #### PTT, BMP, PT, CBC #### [facility] [address] [Entitic mass] by Automated countOrdered By: Nasim Segal on 45-41-1079IJV (RBC) [Entitic mass]31.0 wyXercbg33.7-34.3FCommunity Memorial HospitalComment on above:Performed By: #### PTT, BMP, PT, CBC #### [address] Auto (RBC) [Mass/Vol]Ordered By: Nasim Segal on 19-10-0007KSIM (RBC) [Mass/Vol]33.6 g/dL32.0-35.0Guernsey Memorial HospitalV [Entitic volume] by Automated countOrdered By: Nasim Segal on 19-51-9814ATT (RBC) [Entitic vol]92.2 wSItjvng46-023CvkjqcbecAvita Health System Bucyrus HospitalComment on above:Performed By: #### PTT, BMP, PT, CBC #### [facility] [address] [place] [address] USAMonocytes [#/volume] in Blood by Automated countOrdered By: Nasim Segal on 49-77-3132Rftxgewjh (Bld) [#/Vol]0.5 10*3/uLNormal0.0-0.8 [facility] HospitalComment on above:Performed By: #### PTT, BMP, PT, CBC #### [facility] [address] [place] [id number] USAMonocytes/100 leukocytes in Blood by Automated count Ordered By: Nasim Segal on 98-97-3362Clomtolya/100 WBC (Bld)9.0 %Normal. [facility] HospitalComment on above:Performed By: #### PTT, BMP, PT, CBC #### [facility] [address] [place] [address] USANeutrophils [#/volume] in Blood by Automated countOrdered By: Nasim Segal on 59-92-6021Odkvszvfpqr (Bld) [#/Vol]4.1 10*3/uLNormal1.8-7.7 [facility] HospitalComment on above:Performed By: #### PTT, BMP, PT, CBC #### [facility] [address] [place] [id number] USANeutrophils/100 leukocytes in Blood by Automated count Ordered By: Nasim Segal on 40-37-9447Wfyhqlcptnm/100 WBC (Bld)71.5 %Normal. [facility] HospitalComment on above:Performed By: #### PTT, BMP, PT, CBC #### [facility] [address] [place] [id number] USANo Panel InformationOrdered By: Nasim Segal on 45-61-9507Dsaxokge Creatinine Clearance (ChemN/[facility] Memorial HospitalNucleated erythrocytes [Presence] in Blood by Automated countOrdered By: Nasim Segal on 11-27-8004Bnlvrlald RBC Auto Ql (Bld)0.1 /100{WBC}0-0.5 [facility] HospitalPST Type and Screenon 20-43-4868MEA and Rh group Nom (Bld)Blood group O Rh(D) positiveNormalThe [facility] Group Comment on above:Order Comment: Date of Surgery: [id number] Thromboplastin Timeon 56-96-5354fPNR Coag (Bld) [Time]28.7 eNpybfz50.1-36.5[facility] Physician GroupComment on above:Result Comment: A hematocrit value greater than 55% may lead to inaccurate results in coagulation testing. Patients having hematocrit values >55% require a special collection tube for coagulation studies. Please contact the laboratory at [phone] for redraw instructions. PERFORMED BY: [place] [address] PATHOLOGIST FLIGHT DECK OFFICER MEGAN S YULIA M.D.Performed By: #### PTT, BMP, PT, CBC #### [facility] [address] [place] [address] USAPlatelet mean volume [Entitic volume] in Blood by Automated countOrdered By: Nasim Segal on 04-03-7843Dkhkgozi mean volume (Bld) [Entitic vol]8.2 fLNormal6.3-10.7FCommunity Memorial HospitalComment on above:Performed By: #### PTT, BMP, PT, CBC #### [facility] [address] [place] [address] USAPlatelets [#/volume] in Blood by Automated countOrdered By: Nasim Segal on 68-32-7883Sexeuhfsq (Bld) [#/Vol]244 10*3/yHIsnoos211-982 [facility] HospitalComment on above:Performed By: #### PTT, BMP, PT, CBC #### [place] [address] USAPotassium [Moles/volume] in Serum or PlasmaOrdered By: Nasim Segal on 19-37-4798Eqhzqjulc [Moles/Vol]4.0 mmol/LNormal3.5-5.1FCommunity Memorial HospitalComment on above:Performed By: #### PTT, BMP, PT, CBC #### [place] [address] USAProthrombin time (PT)Ordered By: Nasim Segal on 39-76-6348HV Coag (PPP) [Time]11.5 sNormal9.0-12.9[facility] HospitalComment on above:A hematocrit value greater than 55% may lead to inaccurate results in coagulation testing. Patientshaving hematocrit values >55% require a special collection tube for coagulation studies. Please contact the laboratory at [phone] for redraw instructions.Result Comment: A hematocrit value greater than 55% may lead to inaccurate results in coagulation testing. Patients having hematocrit values >55% require a special collection tube for coagulation studies. Please contact the laboratory at [phone] for redraw instructions.Performed By: #### PTT, BMP, PT, CBC #### [facility] [address] [place] [address] USASerum or plasma anion gap determinationOrdered By: Nasim Segal on 62-62-9358Zblry gap [Moles/Vol]12.3 mmol/LNormal6.0-15.0[facility] HospitalComment on above:Performed By: #### PTT, BMP, PT, CBC #### [facility] [address] [place] [address] USASodium [Moles/volume] in Serum or PlasmaOrdered By: Nasim Segal on 41-10-8446Yijxya [Moles/Vol]135 mmol/JZno204-471BumgccagcAvita Health System Bucyrus HospitalComment on above:Performed By: #### PTT, BMP, PT, CBC #### [facility] [address] [place] [address] USAUrea nitrogen [Mass/volume] in Serum or PlasmaOrdered By: Nasim Segal on 24-59-0595Rmgy nitrogen [Mass/Vol]8 mg/dLNormal7-25[facility] HospitalComment on above:Performed By: #### PTT, BMP, PT, CBC #### [facility] [address] [place] [id number] USAaPTT in Platelet poor plasma by Coagulation assayOrdered By: Nasim Segal on 08-31-0607uRVG Coag (PPP) [Time]28.7 s25.1-36.5FCommunity Memorial HospitalComment on above:A hematocrit value greater than 55% may lead to inaccurate results in coagulation testing. Patientshaving hematocrit values >55% require a special collection tube for coagulation studies. Please c ontact the laboratory at [phone] for redraw instructions.Basophils Auto (Bld) [#/Vol]Ordered By: Laurita Morales on 70-56-5875Kjcbhylqi (Bld) [#/Vol]0.0 10 3/uL0.0-0.1FCommunity Memorial HospitalBasophils/100 WBC Auto (Bld)Ordered By: Laurita Morales on 34-09-9571Bufswngrz/100 WBC (Bld)0.6 %0.2-2.0[facility] HospitalCholesterol in LDL Calc [Mass/Vol]Ordered By: Laurita Morales on 66-33-5752Fonbcsjkvtd in LDL [Mass/Vol]146.0 mg/dLAvita Health System Bucyrus HospitalComment on above:<100 mg/dl XTGAYLZ216-405 mg/dl NEAR OR ABOVE HZCJGVK198-848 mg/dl BORDERLINE NTYM225-200 mg/dl HIGH>190 mg/dl VERY HIGH Cholesterol in VLDL Calc [Mass/Vol]Ordered By: Laurita Morales on 10-20-2024 Cholesterol in VLDL [Mass/Vol]25.8 mg/dLAvita Health System Bucyrus Hospital Eosinophils/100 WBC Auto (Bld)Ordered By: Laurita Morales on 10-20-2024 Eosinophils/100 WBC (Bld)0.3 %Low0.9-7.0[facility] Erythrocyte distribution width Auto (RBC) [Ratio]Ordered By: Laurita Morales on 50-05-0262Ctcpyceuobm distribution width (RBC) [Ratio]14.0 %11.0-15.0[facility] HospitalGlobulin Calc (S) [Mass/Vol]Ordered By: Laurita Morales on 46-15-6102Qiawwdzb (S) [Mass/Vol]3.9 g/dLAvita Health System Bucyrus Hospital Glomerular filtration rate (GFR) estimation in non- AmericanOrdered By: Laurita Morales on 74-38-9175WTA/1.73 sq M.predicted among non-blacks MDRD (S/P/Bld) [Vol rate/Area]mL/min/{1.73_m2}>=60 mL/min/1.73m 2FCommunity Memorial HospitalHematocrit Auto (Bld) [Volume fraction]Ordered By: Laurita Morales on 24-09-1451Svpwqdkmnt (Bld) [Volume fraction]40.0 %36.0-48.0[facility] HospitalHemoglobin [Mass/volume] in BloodOrdered By: Laurita Morales on 99-43-1056Tcwaupvetx (Bld) [Mass/Vol]13.0 g/dL12.0-16.0[facility] HospitalLaboratory - Chemistry and Chemistry - challengeOrdered By: Laurita Morales on 82-76-1679Bkdpzyi [Mass/Vol]4.2 g/dL3.4-5.0[facility] HospitalALP [Catalytic activity/Vol]82 U/J14-631AvkkajtllAvita Health System Bucyrus Hospital ALT [Catalytic activity/Vol]27 U/Q90-76GtrfvagwuAvita Health System Bucyrus HospitalAST [Catalytic activity/Vol]24 U/V72-16BhgbovkvyAvita Health System Bucyrus HospitalBilirubin [Mass/Vol]0.6 mg/dL0.2-1.0[facility] HospitalCalcium [Mass/Vol]9.4 mg/dL8.5-10.1FCommunity Memorial HospitalChloride [Moles/Vol]101 mmol/L 98-107[facility] HospitalCholesterol [Mass/Vol]249 mg/dLHigh<=200 [facility] HospitalCholesterol in HDL [Mass/Vol]78 mg/uYWlqx76-45 [facility] HospitalComment on above:> or =60 mg/dl - LOW CARDIOVASCULAR RISK<40 mg/dl - HIGH CARDIOVASCULAR RISKCO2 [Moles/Vol]25.2 mmol/L21.0-32.0[facility] HospitalCreatinine [Mass/Vol]0.70 mg/dL 0.55-1.02[facility] HospitalFree T4 [Mass/Vol]1.16 ng/dL0.76-1.46 [facility] HospitalGFR/1.73 sq M.predicted MDRD (S/P/Bld) [Vol rate/Area]mL/min/{1.73_m2}>=60 mL/min/1.73m 2FCommunity Memorial Hospital Glucose [Mass/Vol]113 mg/nIGamj62-256YprcvnjokAvita Health System Bucyrus HospitalPotassium [Moles/Vol]4.3 mmol/L3.5-5.1FCommunity Memorial HospitalProtein [Mass/Vol] 8.1 g/dL6.4-8.2FTriHealth Bethesda Butler Hospitalodium [Moles/Vol]137 mmol/L 136-145[facility] HospitalTriglyceride [Mass/Vol]129 mg/dL<=150 [facility] HospitalTSH Qn4.153 m[IU]/LHigh0.358-3.740[facility] HospitalUrea nitrogen [Mass/Vol]11.0 mg/dL7.0-18.0[facility] HospitalUrea nitrogen/Creatinine [Mass ratio]15.7 mg/mgAvita Health System Bucyrus HospitalLaboratory - Hematology and Cell countsOrdered By: Laurita Morales on 26-41-3969Sgrbkvzk granulocytes/100 WBC (Bld)0.2 %0.0-0.5FCommunity Memorial HospitalLeukocytes [#/volume] corrected for nucleated erythrocytes in Blood by Automated counOrdered By: Laurita Morales on 45-20-1343JXI corrected for nucl RBC Auto (Bld) [#/Vol]6.5 10 3/uL4.0-11.0[facility] HospitalLymphocytes Auto (Bld) [#/Vol]Ordered By: Laurita Morales on 18-40-6094Biibosvhvgy (Bld) [#/Vol]1.1 10 3/uLLow1.2-3.8[facility] HospitalLymphocytes/100 WBC Auto (Bld)Ordered By: Laurita Morales on 21-76-4472Bzxmjqsccxz/100 WBC (Bld)16.9 %Low20.5-60.0[facility] Auto (RBC) [Entitic mass]Ordered By: Laurita Morales on 55-99-5097CZZ (RBC) [Entitic mass]30.7 pg26.7-34.0[facility] Memorial HospitalHC Auto (RBC) [Mass/Vol]Ordered By: Laurita Morales on 52-98-9166WOIB (RBC) [Mass/Vol]32.5 g/dL29.9-35.2FCommunity Memorial HospitalMCV Auto (RBC) [Entitic vol] Ordered By: Laurita Morales on 01-23-3673JGO (RBC) [Entitic vol]94.6 fL81.0-99.0 [facility] HospitalMonocytes Auto (Bld) [#/Vol]Ordered By: Laurita Morales on 69-52-5926Utftfbjsw (Bld) [#/Vol]0.7 10 3/uL0.3-0.8[facility] HospitalMonocytes/100 WBC Auto (Bld)Ordered By: Laurita Morales on 10-20-2024 Monocytes/100 WBC (Bld)11.2 %1.7-12.0[facility] Neutrophils Auto (Bld) [#/Vol]Ordered By: Laurita Morales on 65-55-3787Uizkqptythg (Bld) [#/Vol]4.6 10 3/uL1.4-6.5FCommunity Memorial HospitalNeutrophils/100 WBC Auto (Bld)Ordered By: Laurita Morales on 70-12-6360Tpdgsmnyjxb/100 WBC (Bld) 70.8 %43.0-75.0[facility] HospitalNo Panel InformationOrdered By: Laurita Morales on 35-57-1996Frepplhsxzm # (Auto)0.0 10 3/uL0.0-0.7FCommunity Memorial HospitalImmature Granulocyte # (Auto)0.01 10 3/uL0.00-0.03 [facility] HospitalPlatelet mean volume Auto (Bld) [Entitic vol] Ordered By: Laurita Morales on 27-46-9305Qjbrktkl mean volume (Bld) [Entitic vol] 9.9 fL9.5-13.5FCommunity Memorial HospitalPlatelets Auto (Bld) [#/Vol] Ordered By: Laurita Morales on 96-01-6846Ngrawqfpt (Bld) [#/Vol]243 10 3/gC121-299 [facility] HospitalRBC Auto (Bld) [#/Vol]Ordered By: Laurita Morales on 26-70-8168MLZ (Bld) [#/Vol]4.23 10 6/uL4.20-5.40[facility] Medical Centererum or plasma albumin/globulin mass ratioOrdered By: Laurita Morales on 75-38-9884Dqcpbfc/Globulin [Mass ratio]1.1 {ratio}[facility] Medical Centererum or plasma anion gap determinationOrdered By: Laurita Morales on 03-29-7398Mcwqh gap [Moles/Vol]15.1 mmol/LFTriHealth Bethesda Butler Hospitalerum or plasma total cholesterol/high density lipoprotein (HDL) cholesterol mass rat Ordered By: Laurita Morales on 41-97-3127Kcpjcfixlax.total/Cholesterol in HDL [Mass ratio]3.2 {ratio}[facility] HospitalComment on above:3.3 - 4.4 LOW RISK4.4 - 7.1 AVERAGE RISK7.1 - 11.0 MODERATE RISK>11.0 HIGH RISKALL BASIC METABOLIC PANELon 82-87-1881Ztcup gap [Moles/Vol]8 mmol/LNOMS HealthcareCalcium [Mass/Vol]9.4 mg/dL8.5 - 10.1 mg/dLNOMS HealthcareChloride [Moles/Vol]103 mmol/L 98 - 107 mmol/LNOMS HealthcareCO2 [Moles/Vol]30.4 mmol/L21.0 - 32.0 mmol/LNOMS HealthcareCreatinine [Mass/Vol]0.75 mg/dL0.55 - 1.02 mg/dLNOMosaic Life Care at St. Joseph GFR/1.73 sq M.predicted CKD-EPI (S/P/Bld) [Vol rate/Area]>60>=60 mL/min/1.73m 2 NOMS HealthcareGlucose [Mass/Vol]91 mg/dL74 - 106 mg/dLNOKY HealthcarePotassium [Moles/Vol]4.4 mmol/L3.5 - 5.1 mmol/LNOMS HealthcareSodium [Moles/Vol]137 mmol/L 136 - 145 mmol/LNOMS HealthcareTBH EGFR-NON AF DUTCH>60>=60 mL/min/1.73m 2 NOMS HealthcareUrea nitrogen [Mass/Vol]11 mg/dL7.0 - 18.0 mg/dLNOMosaic Life Care at St. Joseph Urea nitrogen/Creatinine [Mass ratio]14.7 mg/mgNOMS HealthcareCLINISYNCNOMS HealthcareXR Knee - left 1 or 2 Viewson 13-68-2695Ekejpzq Result: X-rays AP and lateral of left [...] appeared to be adequately ossified. [facility]Rad[facility] observation (narrative)[facility] HospitalGastroenterology Office/Clinic Noteon 35-61-4310Hnqaxxeraywqttbm Office/Clinic NoteGastroenterology Office/Clinic Note Chief Complaint Checkup [...] fL (01/15/24) Chloride: 100 mmol/L Low (01/15/24) [place] Absolute: 1.1 E9/L High (01/15/24) CO2: 23 mmol/L (01/15/24) [place] Auto: 10.6 % (01/15/24) Creatinine: 0.6 mg/dL [...] > 30 years, pereira (more content not included)...[facility] HospitalComment on above:Result Comment: Electronically Signed By: Deepti ALARCON, Martin Khan\.br\Date and Time Signed: 03/20/24 11:30 EST\.br\Electronically Co-Signed By: Jacquie Gauthier MA\.br\Date and Time Co- Signed: 03/20/24 11:29 ESTAmbulatory Visit Summaryon 42-33-4178Zsbjydbqqc Visit SummaryAmbulatory Visit Summary ALEXANDRA CERVANTES :1950 [...] EDT With: Deepti ALARCON, Martin Khan Where: [facility] [address] [place] [address]- You Need to Complete the Following [...] you for choosing us for your care. [facility] HospitalGastroenterology Office/Clinic Noteon 36-59-3046Xvzeaidayzvgbqza Office/Clinic NoteGastroenterology Office/Clinic Note Chief Complaint EGD and colonoscopy resutls. [facility] Staff Patient is a(n) 73 year [...] Time Signed: 01/30/24 14:13 ESTSurgical Pathology Reporton 58-47-8141Zsrkglsv Pathology ReportGood Samaritan Hospital [address] [place] [address]- Surgical Pathology Report Collected Date/Time: 01/15/2024 12:33 [...] is entirely submitted in one cassette. (DC) DC:[facility] Microscopic Description Microscopic examination performed unless gross only specified. The use of one or more reagents in the above tests is regulated as an analyte specific reagent (ASR). The test or tests are ordered following initial H&E microscopic examination. The performance characteristics were determined by the [facility] of [facility] Surgical Pathology. They have not been cleared or approved by the US Food and Drug Administration. The FDA has determined that such clearance or approval is not necessary. These tests are used for clinical purposes. They should not be regarded as investigational or for research. Appropriate positive and negative controls are performed and are acceptable. [facility] HospitalComment on above:Performed By: #### [id number] #### [facility] [address] [place], [place] [address]Zwgykuuebjm-SL Plus (Client Incubated)on 17-90-6276Pbdqc interferon background IA Qn (Bld)0.02 International_Unit/mLInvalid Interpretation [facility] CenterComment on above:Performed By: #### [id number] #### [facility] [address] [place], [place] [address]X. tuberculosis stim IFN-g by CD4+ CD8+ T-cells corrected for background Qn (Bld)0.05 International_Unit/mLInvalid Interpretation [facility] CenterComment on above:Performed By: #### [id number] #### [facility] [address] [place], [place] [address]O. tuberculosis stim IFN-g by CD4+ T-cells corrected for background Qn (Bld)0.02 International_Unit/mLInvalid Interpretation CodeKettering Health MiamisburgComment on above:Performed By: #### [id number] #### [facility] [address] [place] [id number]. tuberculosis stim IFN-g Ql (Bld) [Interp]NegativeInvalid Interpretation CodeNegativeKettering Health MiamisburgComment on above:Result Comment: No response to M [...] interferon gamma. Chemiluminescence immunoassay methodology Performed at: [facility] [employer] [id number] PhD Kirk Stuartformed By: #### [id number] #### [facility] [address] [place] [id number] stimulated gamma interferon corrected for background Qn (Bld)>10.00Invalid Interpretation [facility] CenterComment on above:Performed By: #### [id number] #### [facility] [address] [place] [id number] comment (Unsp spec) [Interp]CommentInvalid Interpretation CodeKettering Health MiamisburgComment on above:Result Comment: QuantiFERON-TB Gold Plus is [...] a control for the test.Performed By: #### [id number] #### [facility] [address] [place], [place] [address]Sinclon Panel by PCRon [id number] Panel by PCRShiga Tox Interp Negative for Shiga Toxin producing E. coliNormalFisher [facility] CHEMISTRYOrdered By: SYSTEM SYSTEM on [id number] [Mass/Vol]3.7 g/dLNormal 3.3 - 5.0 gm/dLRemisol ChemAlbumin/Globulin [Mass ratio]1.0 {ratio}Low1.1 - 2.2 Remisol ChemALP [Catalytic activity/Vol]84 [iU]/gPxkuhk58 - 98 Int._Unit/L Remisol ChemALT No additional P-5'-P [Catalytic activity/Vol]15 [iU]/dNormal6 - 46 Int._Unit/LRemisol ChemAnion gap [Moles/Vol]15 mmol/LNormal6 - 16 mEq/L Remisol ChemAST [Catalytic activity/Vol]14 [iU]/dNormal5 - 43 Int._Unit/LRemisol ChemBilirubin [Mass/Vol]0.7 mg/dLNormal0.0 - 1.1 mg/dLRemisol ChemCalcium [Mass/Vol]9.2 mg/dLNormal8.9 - 11.1 mg/dLRemisol ChemChloride [Moles/Vol]100 mmol/CCfc081 - 111 mmol/LRemisol ChemCO2 [Moles/Vol]23 mmol/QZhwpbp53 - 31 mmol/LRemisol ChemCreatinine [Mass/Vol]0.6 mg/dLNormal0.5 - 1.3 mg/dLRemisol ChemCRP [Mass/Vol]6.0 mg/dLHigh<=1.9mg/dLRemisol XkggnLWD24 mL/min/1.73 k0Mwgnjg >=59mL/min/1.73 y1Glybwnh ChemGlobulin (S) [Mass/Vol]3.7 g/dLNormal1.4 - 4.0 gm/dLRemisol ChemGlucose [Mass/Vol]91 mg/kVGgtogb97 - 199 mg/dLRemisol Chem Potassium [Moles/Vol]3.5 mmol/LNormal3.5 - 5.3 mmol/LRemisol ChemProtein [Mass/Vol]7.4 g/dLNormal6.0 - 7.8 gm/dLRemisol ChemSodium [Moles/Vol]134 mmol/L Mjg065 - 145 mmol/LRemisol ChemUrea nitrogen [Mass/Vol]7 mg/dLNormal5 - 21 mg/dL Remisol ChemUrea nitrogen/Creatinine [Mass ratio]12 mg/utWkxqlk17 - 20Remisol ChemHEMATOLOGYOrdered By: Fabian Silva on [id number]/100 WBC (Bld)0.5 % Normal0.0 - 2.0 %Remisol HemeBasophils/Leukocytes Auto (Bld) [Pure # fraction] 0.1 E9/LNormal0.0 - 0.2 E9/LRemisol HemeEosinophils (Bld) [#/Vol]0.1 E9/LNormal 0.0 - 0.5 E9/LRemisol HemeEosinophils/100 WBC (Bld)0.7 %Normal0.0 - 8.0 %Remisol HemeErythrocyte distribution width (RBC) [Ratio]18.3 %High10.9 - 14.2 %Remisol HemeHematocrit (Bld) [Volume fraction]36.7 %Nixwab18.0 - 46.0 %Remisol Heme Hemoglobin (Bld) [Mass/Vol]12.6 g/hFYsnfdx24.0 - 16.0 gm/dLRemisol Heme Lymphocytes (Bld) [#/Vol]1.1 E9/LNormal1.0 - 4.0 E9/LRemisol HemeLymphocytes/100 WBC (Bld)11.0 %Low14.0 - 50.0 %Remisol HemeMCH (RBC) [Entitic mass]29.3 pg Lblhzk08.0 - 34.0 pgRemisol HemeMCHC (RBC) [Mass/Vol]34.3 g/xJZsybwf16.4 - 36.0 gm/dLRemisol HemeMCV (RBC) [Entitic vol]85.6 uVQmtnch21.0 - 100.0 fLRemisol Heme Monocytes (Bld) [#/Vol]1.1 E9/LHigh0.2 - 1.0 E9/LRemisol HemeMonocytes/100 WBC (Bld)10.6 %Normal4.0 - 14.0 %Remisol HemeNeutrophils (Bld) [#/Vol]7.7 E9/LHigh 2.0 - 7.5 E9/LRemisol HemeNeutrophils/100 WBC (Bld)77.2 %High36.0 - 75.0 % Remisol HemePlatelet mean volume (Bld) [Entitic vol]7.5 fLNormal6.4 - 10.8 fL Remisol HemePlatelets (Bld) [#/Vol]324.0 E9/XFposfn740.0 - 500.0 E9/LRemisol HemeRBC (Bld) [#/Vol]4.3 E12/LNormal4.3 [...] testing of samples in close time sequence.Normal NegativeKettering Health MiamisburgComment on above:Result Comment: This test result should be correlated with clinical presentations and medical history by a healthcare provider to determine its clinical significance.\.br\.br\Other Comment: Order added by Discern Expert.Clostridium difficile by PCRNegative NormalNegativeKettering Health MiamisburgComment on above:Order Comment: Order added by Discern Expert.Result Comment: This test result should be correlated with clinical presentations and medical history by a healthcare provider to determine its clinical significance.Performed By: #### [id number] #### [facility] [address] [place] [address] [id number] PCRon 12-06-2023. difficile toxin A+B Ql (Stl)No, PCR to followNormalKettering Health MiamisburgComment on above:Performed By: #### [id number] #### [facility] [address] [place], [place] [address]LDxap PCROrder Cancelled Specimen has been found to be acceptable for C. difficile testing.[facility] HospitalEnteric Panel by PCRon 12-06-2023. coli+jejuni+upsaliensis DNA ADELITA+non-probe Ql (Stl)Not detectedNoUniversity Hospitals Samaritan Medical CenterComment on above:Result Comment: Testing was performed utilizing reverse web content specialist (RT), polymerase chain reaction (PCR), and [...] tested by Verigene nulcleic acidtest.Performed By: #### [id number] #### [facility] [address] [place], [place] [address]O. coli stx1+stx2 genes ADELITA+non-probe Ql (Stl)NegativeNormal [facility] Health MiamisburgComment on above:Performed By: #### [id number] #### [facility] [address] [place], [place] [address]Cnqhkvk Panel by PCRShiga Tox Interp Negative for Shiga Toxin producing E. coliNoUniversity Hospitals Samaritan Medical Center Enteric Panel Intrl QCPassNoUniversity Hospitals Samaritan Medical CenterComment on above: Result Comment: Testing was performed utilizing reverse web content specialist (RT), polymerase chain reaction (PCR), and [...] Shiga toxins 1 and 2.Performed By: #### [id number] #### [facility] [address] [place] [address]Egkqpgugn genogroup I+II RNA ADELITA+non-probe Ql (Stl)Not detected [facility] HospitalComment on above:Performed By: #### [id number] #### [facility] [address] [place], [place] [address]Memhbcegj A RNA ADELITA+non-probe Ql (Stl)Not detectedNoUniversity Hospitals Samaritan Medical CenterComment on above:Performed By: #### [id number] #### [facility] [address] [place] [address]V. enterica+bongori DNA ADELITA+non-probe Ql (Stl)Not detected [facility] HospitalComment on above:Result Comment: This test result should be correlated with clinical presentations and medical history by a healthcare provider to determine its clinical significance.Performed By: #### [id number] #### [facility] [address] [place], [place] [address]Vgypwflu species+EIEC invasion plasmid antigen H ipaH gene ADELITA+non-probe Ql (Stl)Not detectedNoUniversity Hospitals Samaritan Medical CenterComment on above:Performed By: #### [id number] #### [facility] [address] [place] [address]A. cholerae+parahaemolyticus+vulnificus DNA ADELITA+non-probe Ql (Stl)Not detectedNormalKettering Health MiamisburgComment on above:Performed By: #### [id number] #### [facility] [address] [place], [place] [address]L. enterocolitica DNA ADELITA+non-probe Ql (Stl)Not detectedNormal [facility] Health MiamisburgComment on above:Performed By: #### [id number] #### [facility] [address] [place], [place] [address]Cjpgfv Disease Comprehensiveon 05-75-2786Goqrzklxjd IgA Ql (S) NegativeInvalid Interpretation CodeNegativeKettering Health MiamisburgComment on above:Performed By: #### [id number] #### [facility] [address] [place] [address]68[address]Idqwvll peptide IgA Qn (S)4 unit(s)Invalid Interpretation Code 0-19K[facility] Health MiamisburgComment on above:Result Comment: Negative 0 - 19 Weak Positive 20 - 30 Moderate to Strong Positive >30Performed By: #### [id number] #### [facility] [address] [place] [address] 345[address]Vvwpsjk peptide IgG Qn (S)3 unit(s)Invalid Interpretation Code 0-19K[facility] Health MiamisburgComment on above:Result Comment: Negative 0 - 19 Weak Positive 20 - 30 Moderate to Strong Positive >30Performed By: #### [id number] #### [facility] [address] [place], [place] [address]QuD [Mass/Vol]248 mg/dLInvalid Interpretation Lfkt36-059BkkugxKettering Health MiamisburgComment on above:Result Comment: Performed at: [facility] [address] [place] [id number] PhD Kirk CmPerformed By: #### [id number] #### [facility] [address] [place], [place] [address]sHY IgA Qn (S)<2Invalid Interpretation Code0-3FKettering Health – Soin Medical CenterComment on above:Result Comment: Negative 0 - 3 Weak Positive 4 - 10 Positive >10 Tissue Transglutaminase (tTG) has been identified as the endomysial antigen. Studies have demonstr- ated that endomysial IgA antibodies have over 99% specificity for gluten sensitive enteropathy.Performed By: #### [id number] #### [facility] [address] [place], [place] [address]ySF IgG Qn (S)5 unit/mLInvalid Interpretation Code0-5[facility] InstituteComment on above:Result Comment: Negative 0 - 5 Weak Positive 6 - 9 Positive >9Performed By: #### [id number] #### [facility] [address] [place] [address] [id number] By: SYSTEM SYSTEM on 95-06-6755EIX Qn1.76 m[IU]/LNormal0.34 - 5.60 mcIU/mLRemisol ChemTSHon 65-38-1783ZIS Qn1.76 m[IU]/L Normal0.34-5.60[facility] InstituteComment on above:Performed By: #### [id number] #### [facility] [address] [place], [place] [address]UBD AUTO DIFFon [id number] #0.1 103/ulNormal0.0-0.1Holzer Health SystemComment on above:Performed By: #### CBC #### [facility] [address] [place] [address] Dr. Scooby Bazansophils/100 WBC (Bld)0.5 %Normal0.2-2.0The [facility] Comment on above:Performed By: #### CBC #### [facility] [address] [place] [address] Dr. Scooby Bynum #0.0 103/ulNormal0.0-0.7The [facility] HospitalComment on above: Performed By: #### CBC #### [facility] [address] [place] [address] Dr. Scooby Garciaosinophils/100 WBC (Bld)0.1 %Critically low0.9-7.0The [facility] HospitalComment on above:Performed By: #### CBC #### [facility] [address] [place] [address] Dr. Scooby Garicarythrocyte distribution width (RBC) [Ratio]15.1 %Critically high 11.0-15.0The [facility] HospitalComment on above:Performed By: #### CBC #### [facility] [address] [place] [address] Dr. Scooby IrvinHematocrit (Bld) [Volume fraction]39.4 %Vwsahv13.0-48.0The [facility] HospitalComment on above:Performed By: #### CBC #### [facility] [address] [place] [address] Dr. Scooby IrvinHemoglobin (Bld) [Mass/Vol]12.6 g/cYTbfynj68.0-16.0The [facility] HospitalComment on above:Performed By: #### CBC #### [facility] [address] [place] [address] Dr. Scooby Nicholson #0.05 10e3/ulCritically high0.00-0.03The [facility] Comment on above:Performed By: #### CBC #### [facility] [address] [place] [address] Dr. Scooby Nicholson %0.5 %Normal0.0-0.5The [facility] HospitalComment on above: Performed By: #### CBC #### [facility] [address] [place] [address] Dr. Scooby oRlandH #1.3 103/ulNormal1.2-3.8The [facility] HospitalComment on above:Performed By: #### CBC #### [facility] [address] [place] [address] Dr. Scooby Laomphocytes/100 WBC (Bld)13.2 %Critically low20.5-60.0The [facility] HospitalComment on above:Performed By: #### CBC #### [facility] [address] [place] [address] Dr. Scooby Weiner DIFF REQNONormalThe German HospitalComment on above: Performed By: #### CBC #### [facility] [address] [place] [address] Dr. Scooby Bob (RBC) [Entitic mass]30.0 toLqdedp46.7-34.0The [facility] HospitalComment on above:Performed By: #### CBC #### [facility] [address] [place] [address] Dr. Scooby Bob (RBC) [Mass/Vol]32.0 g/qRApujlh58.9-35.2The [facility] HospitalComment on above:Performed By: #### CBC #### [facility] [address] [place] [address] Dr. Scooby Bob (RBC) [Entitic vol]93.8 bHRzicei05.0-99.0The [facility] HospitalComment on above:Performed By: #### CBC #### [facility] [address] [place] [address] Dr. Scooby Page #0.7 103/ulNormal0.3-0.8The [facility] HospitalComment on above:Performed By: #### CBC #### [facility] [address] [place] [address] Dr. Scooby Arevaloocytes/100 WBC (Bld)7.2 %Normal1.7-12.0[facility] Comment on above:Performed By: #### CBC #### [facility] [address] [place] [address] Dr. Scooby Chino #7.5 103/ulCritically high1.4-6.5The [facility] Comment on above:Performed By: #### CBC #### [facility] [address] [place] [address] Dr. Scooby Lozanoutrophils/100 WBC (Bld)78.5 %Critically high43.0-75.0The [facility] HospitalComment on above:Performed By: #### CBC #### [facility] [address] [place] [address] Dr. Scooby Johnsonlet mean volume (Bld) [Entitic vol]9.9 fLNormal9.5-13.5The [facility] Centerment on above:Performed By: #### CBC #### [facility] [address] [place] [address] Dr. Scooby IrvinPLT230 103/mrNiavqr662-799Wmp [facility] HospitalCommclaren [facility] region on above: Performed By: #### CBC #### [facility] [address] [place] [address] Dr. Scooby IrvinRBC4.20 106/ulNormal4.20-5.40The [facility] HospitalCommclaren [facility] region on above:Performed By: #### CBC #### [facility] [address] [place] [address] Dr. Scooby IrvinWBC9.5 103/ulNormal4.0-11.0The [facility] HospitalCommclaren [facility] region on above: Performed By: #### CBC #### [facility] [address] [place] [address] Dr. Scooby IrvinPROF 14(COMP METB)on 88-94-0459Qpnuxiy [Mass/Vol]3.9 g/dLNormal 3.4-5.0The [facility] on above:Performed By: #### CBC #### [facility] [address] [place] [address] Dr. Scooby IrvinAlbumin/Globulin [Mass ratio]1.0 {ratio}NormalThe [facility] HospitalCommclaren bay region on above:Performed By: #### CBC #### [facility] [address] [place] [address] Dr. Scooby Veolz [Catalytic activity/Vol]87 U/QXpinxp89-516Qma [facility] on above:Performed By: #### CBC #### [facility] [address] [place] [address] Dr. Scooby Solorio [Catalytic activity/Vol]29 U/ILjgdyh75-94Xhs [facility] HospitalCommclaren [facility] on above:Performed By: #### CBC #### [facility] [address] [address] [address] Scooby Shultz gap [Moles/Vol]14.1 mmol/LNormalHolzer Health System Comment on above:Performed By: #### CBC #### [facility] [address] [address] [address] Scooby IrvinAST [Catalytic activity/Vol]38 U/LCritically gnjs36-85Dfq [facility] HospitalComment on above:Performed By: #### CBC #### [facility] [address] [address] [address] Scooby IrvinBilirubin [Mass/Vol]0.5 mg/dLNormal0.2-1.0The [facility] Comment on above:Performed By: #### CBC #### [facility] [address] [address] [address] Scooby IrvinCalcium [Mass/Vol]9.2 mg/dLNormal8.5-10.1The [facility] Comment on above:Performed By: #### CBC #### [facility] [address] [address] [address] Scooby IrvinChloride [Moles/Vol]102 mmol/JJdgzmo95-352Ktu [facility] Comment on above:Performed By: #### CBC #### [facility] [address] [address] [address] Scooby IrvinCO2 [Moles/Vol]25.7 mmol/ZBkjhni53.0-32.0The [facility] Comment on above:Performed By: #### CBC #### [facility] [address] [place] [address] Dr. Scooby IrvinCreatinine [Mass/Vol]0.76 mg/dLNormal0.55-1.02The [facility] HospitalComment on above:Performed By: #### CBC #### [facility] [address] [address] [address] Scooby GarciaGFR-AF DUTCH>60Normal>=60The [facility] HospitalComment on above:Performed By: #### CBC #### [facility] [address] [address] [address] Scooby GarciaGFR-NON AF DUTCH>60Normal>=60The [facility] HospitalComment on above:Performed By: #### CBC #### [facility] [address] [address] [address] Scooby IrvinGlobulin (S) [Mass/Vol]3.8 g/dLNormThe [facility]vue HospitalComment on above:Performed By: #### CBC #### [facility] [address] [address] [address] Scooby IrvinGlucose [Mass/Vol]104 mg/lXJatauy43-183Eub [facility] Comment on above:Performed By: #### CBC #### [facility] [address] [place] [address] Dr. Scooby IvrinPotassium [Moles/Vol]4.8 mmol/LNormal3.5-5.1The [facility] Comment on above:Performed By: #### CBC #### [facility] [address] [place] [address] Dr. Scooby IrvinProtein [Mass/Vol]7.7 g/dLNormal6.4-8.2The [facility] Comment on above:Performed By: #### CBC #### [facility] [address] [place] [address] Dr. Scooby IrvinSodium [Moles/Vol]137 mmol/LYvsaty520-896Eou [facility] Comment on above:Performed By: #### CBC #### [facility] [address] [place] [address] Dr. Scooby IrvinUrea nitrogen [Mass/Vol]9.0 mg/dLNormal7.0-18.0The [facility] HospitalComment on above:Performed By: #### CBC #### [facility] [address] [place] [address] Dr. Scooby Arroyo nitrogen/Creatinine [Mass ratio]11.8 mg/mgNormThe [facility] HospitalComment on above:Performed By: #### CBC #### [facility] [address] [place] [address] Dr. Scooby IrvinLIPID PROFILEon 80-63-1021EVMR-HDL RATIO NORMSEE [facility] ToledoCommclaren [facility] on above:Result Comment: 3.3 - 4.4 LOW RISK 4.4 - 7.1 AVERAGE RISK 7.1 - 11.0 MODERATE RISK >11.0 HIGH RISKPerformed By: #### CMP, LIPID #### [facility] [address] [address] [address] Scooby IrvinCholesterol [Mass/Vol]235 mg/dLCritically high<=200The [facility] on above:Performed By: #### CMP, LIPID #### [facility] [address] [address] [address] Scooby IrvinCholesterol in HDL [Mass/Vol]65 mg/dLCritically xdhh14-45LphSelect Medical Specialty Hospital [facility] on above:Performed By: #### CMP, LIPID #### [facility] [address] [address] [address] Scooby IrvinCholesterol in LDL [Mass/Vol]156.8 mg/dLHolzer Medical Center – JacksonCommclaren bay region on above:Performed By: #### CMP, LIPID #### [facility] [address] [place] [address] Dr. Scooby Lobatoesterlevi.total/Cholesterol in HDL [Mass ratio]3.6 {ratio} NormalSelect Medical Specialty Hospital [facility] on above:Performed By: #### CMP, LIPID #### [facility] [address] [address] [address] Scooby Maki NORMAL> or = 60 mg/dl - LOW CARDIOVASCULAR RISK <40 mg/dl - HIGH CARDIOVASCULAR RISKHolzer Medical Center – JacksonCommclaren bay region on above:Performed By: #### CMP, LIPID #### [facility] [address] [address] [address] Scooby IrvinLDL CALC NORMALSEE [facility]edoCommclaren [facility] on above:Result Comment: <100 mg/dl OPTIMAL 100 - 129 mg/dl NEAR OR ABOVE OPTIMAL 130 - 159 mg/dl BORDERLINE HIGH 160 - 189 mg/dl HIGH >190 mg/dl VERY HIGH Performed By: #### CMP, LIPID #### [facility] [address] [address] [address] Scooby IrvinTriglyceride [Mass/Vol]66 mg/dLNormal<=150The [facility] Comment on above:Performed By: #### CMP, LIPID #### [facility] [address] [address] [address] Scooby IrvinVLDL CALC13.2 mg/dLNormalThe [facility] HospitalComment on above: Performed By: #### CMP, LIPID #### [facility] [address] [address] [address] Scooby IrvinPROF 14(COMP METB)on 54-25-2640Casivyh [Mass/Vol]3.9 g/dLNormal 3.4-5.0The [facility] HospitalComment on above:Performed By: #### CMP, LIPID #### [facility] [address] [place] [address] Dr. Scooby IrvinAlbumin/Globulin [Mass ratio]1.1 {ratio}NormalThe [facility] HospitalComment on above:Performed By: #### CMP, LIPID #### [facility] [address] [place] [address] Dr. Scooby Veloz [Catalytic activity/Vol]87 U/DSxdyyr02-179Zql [facility] HospitalComment on above:Performed By: #### CMP, LIPID #### [facility] [address] [place] [address] Dr. Scooby Solorio [Catalytic activity/Vol]27 U/OVxmzhj95-64Zdl [facility] HospitalComment on above:Performed By: #### CMP, LIPID #### [facility] [address] [place] [address] Dr. Scooby Shultz gap [Moles/Vol]16.9 mmol/LNormalThe [facility] Comment on above:Performed By: #### CMP, LIPID #### [facility] [address] [place] [address] Dr. Scooby IrvinAST [Catalytic activity/Vol]21 U/UXhdbsg07-79Qzl [facility] HospitalComment on above:Performed By: #### CMP, LIPID #### [facility] [address] [address] [address] Scooby IrvinBilirubin [Mass/Vol]0.4 mg/dLNormal0.2-1.0The [facility] Comment on above:Performed By: #### CMP, LIPID #### [facility] [address] [address] [address] Scooby IrvinCalcium [Mass/Vol]8.7 mg/dLNormal8.5-10.1The [facility] Comment on above:Performed By: #### CMP, LIPID #### [facility] [address] [address] [address] Scooby IrvinChloride [Moles/Vol]102 mmol/YIyxvbj59-691Wbc [facility] Comment on above:Performed By: #### CMP, LIPID #### [facility] [address] [place] [address] Dr. Scooby IrvinCO2 [Moles/Vol]22.0 mmol/UCokcyt79.0-32.0The [facility] Comment on above:Performed By: #### CMP, LIPID #### [facility] [address] [address] [address] Scooby IrvinCreatinine [Mass/Vol]0.73 mg/dLNormal0.55-1.02The [facility] HospitalComment on above:Performed By: #### CMP, LIPID #### [facility] [address] [address] [address] Scooby GarciaGFR-AF DUTCH>60Normal>=60The [facility] HospitalComment on above:Performed By: #### CMP, LIPID #### [facility] [address] [place] [address] Dr. Scooby GarciaGFR-NON AF DUTCH>60Normal>=60The [facility] HospitalComment on above:Performed By: #### CMP, LIPID #### [facility] [address] [address] [address] Scooby IrvinGlobulin (S) [Mass/Vol]3.7 g/dLNormalThe [facility] HospitalComment on above:Performed By: #### CMP, LIPID #### [facility] [address] [address] [address] Scooby IrvinGlucose [Mass/Vol]105 mg/qUHjqous73-901Foe [facility] Comment on above:Performed By: #### CMP, LIPID #### [facility] [address] [address] [address] Scooby IrvinPotassium [Moles/Vol]3.9 mmol/LNormal3.5-5.1The [facility] Comment on above:Performed By: #### CMP, LIPID #### [facility] [address] [place] [address] Dr. Scooby IrvinProtein [Mass/Vol]7.6 g/dLNormal6.4-8.2The [facility] Comment on above:Performed By: #### CMP, LIPID #### [facility] [address] [place] [address] Dr. Scooby IrvinSodium [Moles/Vol]137 mmol/SGmgzuh927-808Sya [facility] Comment on above:Performed By: #### CMP, LIPID #### [facility] [address] [place] [address] Dr. Scooby IrvinUrea nitrogen [Mass/Vol]11.0 mg/dLNormal7.0-18.0The [facility] HospitalComment on above:Performed By: #### CMP, LIPID #### [facility] [address] [place] [address] Dr. Scooby IrvinUrea nitrogen/Creatinine [Mass ratio]15.1 mg/mgNormalThe [facility] HospitalComment on above:Performed By: #### CMP, LIPID #### [facility] [address] [place] [address] Dr. Scooby Corral 45-99-6389PYD7.198 uIU/mLNormal0.358-3.740The [facility] HospitalComment on above:Performed By: #### TSH #### [facility] [address] [place] [address] Dr. Scooby Lassiterd-19 PCR (CVDTBH)on 26-11-7260HTSN-CoV-2 (COVID-19) RNA ADELITA+probe Ql (Unsp spec)Not detectedNormalNOT DETECTEDThe [facility] Comment on above:Result Comment: This test is not yet approved or cleared by the [place] FDA. When there are no FDA-approved or cleared tests available, and other criteria are met, FDA can make tests available under an emergency access mechanism called an Emergency Use Authorization (EUA). The EUA for this test is supported by the [employer] of Health and Human Service's (HHS's) declaration [...] consistent with SARS-CoV-2.Performed By: #### CBC #### [facility] [address] [place] [address] Dr. Scooby Corral 00-40-5841PJQ5.326 uIU/mLNormal0.358-3.740The German HospitalComment on above:Performed By: #### CBC #### [facility] [address] [place] [address] Dr. Scooby Nguyễn [facility] HOSPITALNoMercy Health Tiffin HospitalComment on above: Result Comment: <0.34 UIU/ml HYPERTHYROID 0.34-5.60 UIU/ml EUTHYROID >5.60 UIU/ml HYPOTHYROIDPerformed By: #### CBC #### [facility] [address] [place] [address] Dr. Scooby IrvinBasophils Auto (Bld) [#/Vol]Ordered By: Luis Gutierrez on 26-15-3221Onxorxaxn (Bld) [#/Vol]0.1 10*3/uL0.0-0.2FCommunity Memorial HospitalBasophils/100 WBC Auto (Bld)Ordered By: Luis Gutierrez on 05-26-2021 Basophils/100 WBC (Bld)0.9 %[facility] HospitalBlood hemoglobin measurement (mass/volume)Ordered By: Luis Gutierrez on 17-85-2068Rohjosvpja (Bld) [Mass/Vol]12.4 g/dL11.8-15.4FCommunity Memorial HospitalBlood leukocytes automated count (number/volume)Ordered By: Luis Gutierrez on 69-68-1119GKA (Bld) [#/Vol]8.8 10*3/uL4.5-11.0[facility] COVID-19 Positive/NegativeOrdered By: Luis Gutierrez on 45-05-7874TEIK-CoV-2 (COVID-19) N gene ADELITA+probe Ql (Resp)NegativeNegativeAvita Health System Bucyrus HospitalComment on above:Testing for SARS-CoV-2 by RT-PCRThis test was developed and its performance characteristics determined by [employer] and validated at the [facility]. This test has not been FDA [...] rate.predicted panel (S/P/Bld)Ordered By: Luis Gutierrez on 14-93-6900Nbwdvhwzzk [Mass/Vol]0.66 mg/dL0.44-1.03[facility] HospitalEosinophils Auto (Bld) [#/Vol]Ordered By: Luis Gutierrez on 05-74-3200Myhdzgsszfj (Bld) [#/Vol]0.0 10*3/uL0.0-0.45[facility] HospitalEosinophils/100 WBC Auto (Bld)Ordered By: Luis Gutierrez on 84-45-4869Svyekxauguz/100 WBC (Bld)0.2 %[facility] Erythrocyte distribution width Auto (RBC) [Ratio]Ordered By: Luis Gutierrez on 43-49-4470Xrmtouqjuwu distribution width (RBC) [Ratio]16.1 %11.9-15.3FCommunity Memorial HospitalEstimated glomerular filtration rate (GFR) non- AmericanOrdered By: Luis Gutierrez on 28-63-3806MVE/1.73 sq M.predicted among non-blacks MDRD (S/P/Bld) [Vol rate/Area]> 60 mL/MinAvita Health System Bucyrus HospitalHematocrit Auto (Bld) [Volume fraction]Ordered By: Luis Gutierrez on 22-79-7665Gfgfeuvonn (Bld) [Volume fraction]37.5 %34.0-46.4FCommunity Memorial HospitalLaboratory - Hematology and Cell countsOrdered By: Luis Gutierrez on 98-34-0993Okfneylcw RBC/100 WBC (Bld) [Ratio]0.1 %0-0.5FCommunity Memorial HospitalLymphocytes Auto (Bld) [#/Vol]Ordered By: Luis Gutierrez on 76-87-2187Pdkemyajkzf (Bld) [#/Vol]1.4 10*3/uL1.00-4.8[facility] HospitalLymphocytes/100 WBC Auto (Bld)Ordered By: Luis Gutierrez on 05-26-2021 Lymphocytes/100 WBC (Bld)15.8 %[facility] Auto (RBC) [Entitic mass]Ordered By: Luis Gutierrez on 39-11-0443MAX (RBC) [Entitic mass] 29.2 pg24.7-34.3FCommunity Memorial HospitalMCHC Auto (RBC) [Mass/Vol] Ordered By: Luis Gutierrez on 96-65-2027AXFP (RBC) [Mass/Vol]33.1 g/dL32.0-35.0 [facility] HospitalMCV Auto (RBC) [Entitic vol]Ordered By: Luis Gutierrez on 94-36-9113ELS (RBC) [Entitic vol]88.3 lN31-303WapesxyrnAvita Health System Bucyrus HospitalMonocytes Auto (Bld) [#/Vol]Ordered By: Luis Gutierrez on 88-54-6338Tasxcoyql (Bld) [#/Vol]0.7 10*3/uL0.0-0.8[facility] HospitalMonocytes/100 WBC Auto (Bld)Ordered By: Luis Gutierrez on 05-26-2021 Monocytes/100 WBC (Bld)7.7 %[facility] HospitalNeutrophils Auto (Bld) [#/Vol]Ordered By: Luis Gutierrez on 53-70-0139Jdshfxvljqx (Bld) [#/Vol] 6.7 10*3/uL1.8-7.7FCommunity Memorial HospitalNeutrophils/100 WBC Auto (Bld)Ordered By: Luis Gutierrez on 68-45-3220Jeudjcvngrd/100 WBC (Bld)75.4 % [facility] HospitalNo Panel InformationOrdered By: Luis Gutierrez on 73-25-9754Ietkkahgi GFR ()> 60 mL/MinAvita Health System Bucyrus HospitalComment on above:GFR estimated reference range: According to KDOQI guidelines, <60 ml/min/1.73m2 is sufficient todiagnose a patient with chronic kidney disease.Pharmacy Creatinine Clearance (ChemN/[facility] HospitalPlatelet mean volume Auto (Bld) [Entitic vol]Ordered By: Luis Gutierrez on 24-87-6277Ypndidfb mean volume (Bld) [Entitic vol]8.6 fL6.3-10.7FCommunity Memorial HospitalPlatelets Auto (Bld) [#/Vol]Ordered By: Luis Gutierrez on 38-51-4243Ajgmfonnt (Bld) [#/Vol]241 10*3/gA361-317YysrhqyxbAvita Health System Bucyrus HospitalRBC Auto (Bld) [#/Vol]Ordered By: Luis Gutierrez on 68-65-9653YSX (Bld) [#/Vol]4.24 10*6/uL3.60-5.00[facility] Medical Centererum or plasma calcium measurement (mass/volume)Ordered By: Luis Gutierrez on 05-26-2021 Calcium [Mass/Vol]9.4 mg/dL8.2-10.2FTriHealth Bethesda Butler Hospitalerum or plasma chloride measurement (moles/volume)Ordered By: Luis Gutierrez on 43-75-8330Oqewvjnl [Moles/Vol]105 mmol/E95-454FpfgwxiwzAvita Health System Bucyrus Hospital Serum or plasma glucose measurement (mass/volume)Ordered By: Luis Gutierrez on 89-63-7324Nnzviuj [Mass/Vol]89 mg/bS84-910VkcqvmyrbAvita Health System Bucyrus Hospital Comment on above:ADA recommended reference rangeRandom Glucose Reference Range is dependent on time and content of last meal. Glucose of more than 200 mg/dL in a nonstressed, ambulatory subject supports the diagnosisof Diabetes Mellitus. Serum or plasma intact parathyroid hormone measurement (mass/volume)Ordered By: Luis Gutierrez on 09-66-9800Dfrvtlvewq.intact [Mass/Vol]31.2 pg/mL12-88 [facility] Centererum or plasma potassium measurement (moles/volume)Ordered By: Luis Gutierrez on 00-82-0284Yopkmvrun [Moles/Vol]4.0 mmol/L3.5-5.1FTriHealth Bethesda Butler Hospitalerum or plasma sodium measurement (moles/volume)Ordered By: Luis Gutierrez on 88-61-6876Hsafth [Moles/Vol]137 mmol/S707-265NjkafdcteSouthview Medical Centererum or plasma total carbon dioxide measurement (moles/volume)Ordered By: Luis Gutierrez on 57-11-5460FP1 [Moles/Vol]23.0 mmol/L22.0-30.0[facility] Medical Centererum or plasma urea nitrogen measurement (mass/volume)Ordered By: Luis Gutierrez on 05-26-2021 Urea nitrogen [Mass/Vol]10 mg/dL9-23[facility] HospitalTS DL <= 0.005 mIU/L QnOrdered By: Luis Gutierrez on 52-90-1122MBY Qn0.86 m[IU]/L 0.45-5.33[facility] HospitalMG MAMM SCREEN 3D GEORGES CADon 05-22-2021 MG MAMM SCREEN 3D GEORGES CADPatient: ALEXANDRA CERVANTES Exam Date: 05/22/2021 : 1950 Gender:F Ordering : DR LAURITA MORALES M.D. Admission #: [id number] Family : Order #: [id number] CLICK HERE TO VIEW EXAM RADIOLOGY REPORT [...] Treatments None Family Cancers None LOCATION: [facility] BREAST COMPOSITION: Scattered areas fibroglandular density. [...] by: Lonny Killian MD on 05/22/2021 at 12:06[facility] JacksonCT Chest w/Contraston 70-71-3944TU Chest w/ContrastPlease see CT neck report dated: 05/17/2021. Report reported and signed by Fuentes Lion on 05/22/2021 1528NormalNortbarrow neurological instituten [facility] HospitalCT Soft Tissue Neck w/ Contrast*on 11-43-5151XC Soft Tissue Neck w/ Contrast*CLINICAL HISTORY: Mediastinal [...] signed by Fuentes Lion on 05/22/2021 1528NormalNorthern Florida Medical SpecialistCBC AUTO DIFFon 36-31-1655JIWQ #0.1 103/ulNormal0.0-0.1 The German HospitalComment on above:Performed By: #### CBC #### [facility] [address] [address] [address] Scooby IrvinBasophils/100 WBC (Bld)0.4 %Normal0.2-2.0[facility] Comment on above:Performed By: #### CBC #### [facility] [address] [address] [address] Scooby Bynum #0.0 103/ulNormal0.0-0.7The [facility] HospitalComment on above: Performed By: #### CBC #### [facility] [address] [address] [address] Scooby Garciaosinophils/100 WBC (Bld)0.2 %Critically low0.9-7.0The [facility] HospitalComment on above:Performed By: #### CBC #### [facility] [address] [place] [address] Dr. Scooby Garciarythrocyte distribution width (RBC) [Ratio]16.7 %Critically high 11.0-15.0The German HospitalComment on above:Performed By: #### CBC #### [facility] [address] [place] [address] Dr. Scooby IrvinHematocrit (Bld) [Volume fraction]37.6 %Pdprcm98.0-48.0The [facility] HospitalComment on above:Performed By: #### CBC #### [facility] [address] [place] [address] Dr. Scooby IrvinHemoglobin (Bld) [Mass/Vol]12.0 g/pKVaiqha19.0-16.0The [facility] HospitalComment on above:Performed By: #### CBC #### [facility] [address] [place] [address] Dr. Scooby Nicholson #0.02 10e3/ulNormal0.00-0.03The [facility] HospitalComment on above:Performed By: #### CBC #### [facility] [address] [place] [address] Dr. Scooby Nicholson %0.2 %Normal0.0-0.5The [facility] HospitalCommclaren bay region on above: Performed By: #### CBC #### [facility] [address] [place] [address] Dr. Scooby Mir #1.6 103/ulNormal1.2-3.8The [facility] HospitalComment on above:Performed By: #### CBC #### [facility] [address] [place] [address] Dr. Scooby Laomphocytes/100 WBC (Bld)13.6 %Critically low20.5-60.0The [facility] HospitalComment on above:Performed By: #### CBC #### [facility] [address] [place] [address] Dr. Scooby SeverinoUAL DIFF REQNONormalThe German HospitalComment on above: Performed By: #### CBC #### [facility] [address] [address] [address] Scooby Bob (RBC) [Entitic mass]28.6 fuFtmnci08.7-34.0The [facility] HospitalComment on above:Performed By: #### CBC #### [facility] [address] [place] [address] Dr. Scooby Bob (RBC) [Mass/Vol]31.9 g/yXPyxira89.9-35.2The [facility] HospitalComment on above:Performed By: #### CBC #### [facility] [address] [place] [address] Dr. Scooby Bob (RBC) [Entitic vol]89.5 mPVgoame11.0-99.0The [facility] HospitalComment on above:Performed By: #### CBC #### [facility] [address] [place] [address] Dr. Scooby Page #0.7 103/ulNormal0.3-0.8The [facility] HospitalComment on above:Performed By: #### CBC #### [facility] [address] [place] [address] Dr. Scooby Arevaloocytes/100 WBC (Bld)5.8 %Normal1.7-12.0[facility] Comment on above:Performed By: #### CBC #### [facility] [address] [place] [address] Dr. Scooby Chino #9.1 103/ulCritically high1.4-6.5[facility] Comment on above:Performed By: #### CBC #### [facility] [address] [place] [address] Dr. Scooby Lozanoutrophils/100 WBC (Bld)79.8 %Critically high43.0-75.0The [facility] HospitalComment on above:Performed By: #### CBC #### [facility] [address] [place] [address] Dr. Scooby Johnsonlet mean volume (Bld) [Entitic vol]10.2 fLNormal9.5-13.5The [facility] HospitalComment on above:Performed By: #### CBC #### [facility] [address] [place] [address] Dr. Scooby IrvinPLT217 103/fgGifbed353-015Gvi [facility] HospitalComment on above: Performed By: #### CBC #### [facility] [address] [place] [address] Dr. Scooby IrvinRBC4.20 106/ulNormal4.20-5.40The [facility] HospitalComment on above:Performed By: #### CBC #### [facility] [address] [place] [address] Dr. Scooby IrvinWBC11.4 103/ulCritically high4.0-11.0The [facility] HospitalComment on above:Performed By: #### CBC #### [facility] [address] [place] [address] Dr. Scooby Malone 14(COMP METB)on 69-35-4979Aqvkxyt [Mass/Vol]3.9 g/dLNormal 3.5-5.0The [facility] HospitalComment on above:Performed By: #### CMP #### [facility] [address] [place] [address] Dr. Scooby IrvinAlbumin/Globulin [Mass ratio]1.1 {ratio}NormalThe German HospitalComment on above:Performed By: #### CMP #### [facility] [address] [place] [address] Dr. Scooby Veloz [Catalytic activity/Vol]72 U/EVwrnts47-498Shm German HospitalComment on above:Performed By: #### CMP #### [facility] [address] [place] [address] Dr. Scooby Solorio [Catalytic activity/Vol]23 U/LNormal9-52[facility] Comment on above:Performed By: #### CMP #### [facility] [address] [place] [address] Dr. Yilan ChangAnion gap [Moles/Vol]10.2 mmol/LNormalHolzer Health System Comment on above:Performed By: #### CMP #### [facility] [address] [address] [address] Scooby IrvinAST [Catalytic activity/Vol]20 U/BUfafmo59-22Klc [facility] HospitalComment on above:Performed By: #### CMP #### [facility] [address] [address] [address] Scooby IrvinBilirubin [Mass/Vol]0.5 mg/dLNormal0.2-1.3TAccess Hospital Dayton Comment on above:Performed By: #### CMP #### [facility] [address] [place] [address] Dr. Scooby IrvinCalcium [Mass/Vol]8.8 mg/dLNormal8.4-10.2[facility] Comment on above:Performed By: #### CMP #### [facility] [address] [place] [address] Dr. Scooby IrvinChloride [Moles/Vol]104 mmol/LYmznce72-780BbzHolzer Health System Comment on above:Performed By: #### CMP #### [facility] [address] [place] [address] Dr. Scooby IrvinCO2 [Moles/Vol]28.0 mmol/BNcvlqx56.0-30.0[facility] Comment on above:Performed By: #### CMP #### [facility] [address] [place] [address] Dr. Scooby IrvinCreatinine [Mass/Vol]0.87 mg/dLNormal0.52-1.04The [facility] HospitalComment on above:Performed By: #### CMP #### [facility] [address] [place] [address] Dr. Scooby GarciaGFR-AF DUTCH>60Normal>=60The [facility] HospitalComment on above:Performed By: #### CMP #### [facility] [address] [place] [address] Dr. Scooby GarciaGFR-NON AF DUTCH>60Normal>=60The [facility] HospitalComment on above:Performed By: #### CMP #### [facility] [address] [address] [address] Scooby IrvinGlobulin (S) [Mass/Vol]3.5 g/dLNormThe [facility]vue HospitalComment on above:Performed By: #### CMP #### [facility] [address] [address] [address] Scooby IrvinGlucose [Mass/Vol]93 mg/tUEwmavf52-398Mbp [facility] Comment on above:Performed By: #### CMP #### [facility] [address] [address] [address] Scooby IrvinPotassium [Moles/Vol]4.2 mmol/LNormal3.4-5.0[facility] Comment on above:Performed By: #### CMP #### [facility] [address] [address] [address] Scooby IrvinProtein [Mass/Vol]7.4 g/dLNormal6.1-8.2[facility] Comment on above:Performed By: #### CMP #### [facility] [address] [address] [address] Scooby IrvinSodium [Moles/Vol]138 mmol/YBfrxrp863-584GmcHolzer Health System Comment on above:Performed By: #### CMP #### [facility] [address] [address] [address] Scooby IrvinUrea nitrogen [Mass/Vol]15.0 mg/dLNormal7.0-17.0The [facility] HospitalComment on above:Performed By: #### CMP #### [facility] [address] [address] [address] Scooby IrvinUrea nitrogen/Creatinine [Mass ratio]17.2 mg/mgNormThe [facility] HospitalComment on above:Performed By: #### CMP #### [facility] [address] [address] [address]T [address] SKULL BASE MID THIGHon 40-06-6737TIZ CT SKULL BASE MID THIGHEXAMINATION: PET CT [...] Electronically authenticated by: FUENTES BARRETO Date: 2021-04-07 08:[address] [place] [address] LUNG CANCER SCREENINGon 56-54-9578XW LUNG CANCER SCREENING EXAMINATION: CT LUNG CANCER [...] Electronically authenticated by: FUENTES BARRETO Date: 2021-03-23 09:57NoMer[facility] AUTO DIFFon 36-63-5118EAQD #0.1 103/ulNormal0.0-0.1[facility] SystemComment on above:Performed By: #### CBC #### [facility] [address] [place] [address] Dr. Almodovar ChangBasophils/100 WBC (Bld)1.2 %Normal0.2-2.0[facility] Comment on above:Performed By: #### CBC #### [facility] [address] [place] [address] Dr. Scooby Bynum #0.1 103/ulNormal0.0-0.7ThSouthview Medical CenterComment on above: Performed By: #### CBC #### [facility] [address] [address] [address] Scooby Garciaosinophils/100 WBC (Bld)1.4 %Normal0.9-7.0[facility] Comment on above:Performed By: #### CBC #### [facility] [address] [place] [address] Dr. Scooby Garciarythrocyte distribution width (RBC) [Ratio]16.3 %Critically high 11.0-15.0[facility] Health SystemComment on above:Performed By: #### CBC #### [facility] [address] [place] [address] Dr. Scooby IrvinHematocrit (Bld) [Volume fraction]39.6 %Vnlvhi68.0-48.0The [facility] HospitalComment on above:Performed By: #### CBC #### [facility] [address] [place] [address] Dr. Scooby IrvinHemoglobin (Bld) [Mass/Vol]12.6 g/vDOaruge67.0-16.0The [facility] HospitalComment on above:Performed By: #### CBC #### [facility] [address] [place] [address] Dr. Scooby IrvinIG #0.01 10e3/ulNormal0.00-0.03The [facility] HospitalComment on above:Performed By: #### CBC #### [facility] [address] [place] [address] Dr. Scooby IrvinIG %0.2 %Normal0.0-0.5The [facility] HospitalComment on above: Performed By: #### CBC #### [facility] [address] [place] [address] Dr. Scooby Mir #1.6 103/ulNormal1.2-3.8The [facility] HospitalComment on above:Performed By: #### CBC #### [facility] [address] [place] [address] Dr. Scooby Laomphocytes/100 WBC (Bld)30.7 %Frsubl43.5-60.0The [facility] HospitalComment on above:Performed By: #### CBC #### [facility] [address] [place] [address] Dr. Scooby IrvinMANUAL DIFF REQNONormalThe [facility] HospitalComment on above: Performed By: #### CBC #### [facility] [address] [place] [address] Dr. Scooby Contreras (RBC) [Entitic mass]28.4 ifSiefsm31.7-34.0The [facility] HospitalComment on above:Performed By: #### CBC #### [facility] [address] [place] [address] Dr. Scooby BobHC (RBC) [Mass/Vol]31.8 g/cZUivcom24.9-35.2The [facility] HospitalComment on above:Performed By: #### CBC #### [facility] [address] [place] [address] Dr. Scooby BobV (RBC) [Entitic vol]89.2 aPEqhcsa30.0-99.0The [facility] HospitalComment on above:Performed By: #### CBC #### [facility] [address] [place] [address] Dr. Scooby Page #0.6 103/ulNormal0.3-0.8The [facility] HospitalComment on above:Performed By: #### CBC #### [facility] [address] [place] [address] Dr. Scooby Arevaloocytes/100 WBC (Bld)11.5 %Normal1.7-12.0[facility] Comment on above:Performed By: #### CBC #### [facility] [address] [place] [address] Dr. Scooby Chino #2.8 103/ulNormal1.4-6.5The [facility] HospitalComment on above:Performed By: #### CBC #### [facility] [address] [place] [address] Dr. Scooby Lozanoutrophils/100 WBC (Bld)55.0 %Fupqia39.0-75.0The [facility] HospitalComment on above:Performed By: #### CBC #### [facility] [address] [place] [address] Dr. Scooby Johnsonlet mean volume (Bld) [Entitic vol]10.3 fLNormal9.5-13.5The [facility] HospitalComment on above:Performed By: #### CBC #### [facility] [address] [place] [address] Dr. Scooby IrvinPLT208 103/chFhvvmn926-666Ral [facility] HospitalComment on above: Performed By: #### CBC #### [facility] [address] [address] [address] Scooby IrvinRBC4.44 106/ulNormal4.20-5.40The [facility] HospitalComment on above:Performed By: #### CBC #### [facility] [address] [address] [address] Scooby IrvinWBC5.1 103/ulNormal4.0-11.0The [facility] HospitalComment on above: Performed By: #### CBC #### [facility] [address] [place] [address] Dr. Scooby IrvinFREE T4on 64-84-2635Xuna T4 [Mass/Vol]1.15 ng/dLNormal0.78-2.19 The [facility] HospitalComment on above:Performed By: #### CBC #### [facility] [address] [place] [address] Dr. Scooby ThayerID PROFILEon 62-63-6865PSEM-HDL RATIO NORMSEE [facility] Hospital ToledoComment on above:Result Comment: 3.3 - 4.4 LOW RISK 4.4 - 7.1 AVERAGE RISK 7.1 - 11.0 MODERATE RISK >11.0 HIGH RISKPerformed By: #### LIPID, CMP, TSH #### [facility] [address] [place] [address] Dr. Scooby IrvinCholesterol [Mass/Vol]227 mg/dLCritically high<=200The [facility] HospitalComment on above:Performed By: #### LIPID, CMP, TSH #### [facility] [address] [place] [address] Dr. Scooby Lobatoesterol in HDL [Mass/Vol]65 mg/dLHolzer Medical Center – Jackson Comment on above:Performed By: #### LIPID, CMP, TSH #### [facility] [address] [place] [address] Dr. Scooby Lobatoesterol in LDL [Mass/Vol]142.6 mg/dLHolzer Medical Center – JacksonComment on above:Performed By: #### LIPID, CMP, TSH #### [facility] [address] [address] [address] Scooby IrvinCholesterol.total/Cholesterol in HDL [Mass ratio]3.5 {ratio} NormalThe [facility] HospitalComment on above:Performed By: #### LIPID, CMP, TSH #### [facility] [address] [address] [address] Scooby Maki NORMAL> or = 60 mg/dl - LOW CARDIOVASCULAR RISK <40 mg/dl - HIGH CARDIOVASCULAR RISKHolzer Medical Center – JacksonComment on above:Performed By: #### LIPID, CMP, TSH #### [facility] [address] [address] [address] Scooby IrvinLDL CALC NORMALSEE BELOWHolzer Medical Center – JacksonComment on above:Result Comment: <100 mg/dl OPTIMAL 100 - 129 mg/dl NEAR OR ABOVE OPTIMAL 130 - 159 mg/dl BORDERLINE HIGH 160 - 189 mg/dl HIGH >190 mg/dl VERY HIGH Performed By: #### LIPID, CMP, TSH #### [facility] [address] [address] [address] Scooby IrvinTriglyceride [Mass/Vol]97 mg/dLNormal<=150[facility] Comment on above:Performed By: #### LIPID, CMP, TSH #### [facility] [address] [place] [address] Dr. Scooby IrvinVLDL CALC19.4 mg/dLNoMercy Health Tiffin HospitalComment on above: Performed By: #### LIPID, CMP, TSH #### [facility] [address] [address] [address] Scooby IrvinPROF 14(COMP METB)on 03-17-9407Lmbzdbm [Mass/Vol]4.0 g/dLNormal 3.5-5.0The [facility] HospitalComment on above:Performed By: #### LIPID, CMP, TSH #### [facility] [address] [place] [address] Dr. Scooby IrvinAlbumin/Globulin [Mass ratio]1.1 {ratio}NormalThe [facility] HospitalComment on above:Performed By: #### LIPID, CMP, TSH #### [facility] [address] [address] [address] Scooby BlancoP [Catalytic activity/Vol]80 U/HEjsiat89-836Qsr [facility] HospitalComment on above:Performed By: #### LIPID, CMP, TSH #### [facility] [address] [address] [address] Scooby Solorio [Catalytic activity/Vol]35 U/LNormal9-52[facility] Comment on above:Performed By: #### LIPID, CMP, TSH #### [facility] [address] [address] [address] Scooby Lunaon gap [Moles/Vol]11.8 mmol/LNormalHolzer Health System Comment on above:Performed By: #### LIPID, CMP, TSH #### [facility] [address] [address] [address] Scooby IrvinAST [Catalytic activity/Vol]24 U/OBpexqu59-74Odm [facility] HospitalComment on above:Performed By: #### LIPID, CMP, TSH #### [facility] [address] [address] [address] Scooby IrvinBilirubin [Mass/Vol]0.5 mg/dLNormal0.2-1.3TAccess Hospital Dayton Comment on above:Performed By: #### LIPID, CMP, TSH #### [facility] [address] [address] [address] Scooby IrvinCalcium [Mass/Vol]9.3 mg/dLNormal8.4-10.2[facility] Comment on above:Performed By: #### LIPID, CMP, TSH #### [facility] [address] [address] [address] Scooby IrvinChloride [Moles/Vol]105 mmol/JYnjfhw48-706Ixj [facility] Comment on above:Performed By: #### LIPID, CMP, TSH #### [facility] [address] [address] [address] Scooby IrvinCO2 [Moles/Vol]26.2 mmol/VJttnbh28.0-30.0[facility] Comment on above:Performed By: #### LIPID, CMP, TSH #### [facility] [address] [address] [address] Scooby IrvinCreatinine [Mass/Vol]0.83 mg/dLNormal0.52-1.04[facility] HospitalComment on above:Performed By: #### LIPID, CMP, TSH #### [facility] [address] [address] [address] Scooby GarciaGFR-AF DUTCH>60Normal>=60[facility] HospitalComment on above:Performed By: #### LIPID, CMP, TSH #### [facility] [address] [address] [address] Scooby GarciaGFR-NON AF DUTCH>60Normal>=60[facility] HospitalComment on above:Performed By: #### LIPID, CMP, TSH #### [facility] [address] [address] [address] Scooby IrvinGlobulin (S) [Mass/Vol]3.8 g/dLNormalThe German HospitalComment on above:Performed By: #### LIPID, CMP, TSH #### [facility] [address] [address] [address] Scooby IrvinGlucose [Mass/Vol]112 mg/dLCritically mlkt65-786Art [facility] Centerment on above:Performed By: #### LIPID, CMP, TSH #### [facility] [address] [address] [address] Scooby IrvinPotassium [Moles/Vol]4.0 mmol/LNormal3.4-5.0[facility] Comment on above:Performed By: #### LIPID, CMP, TSH #### [facility] [address] [address] [address] Scooby IrvinProtein [Mass/Vol]7.8 g/dLNormal6.1-8.2[facility] Comment on above:Performed By: #### LIPID, CMP, TSH #### [facility] [address] [address] [address] Scooby IrvinSodium [Moles/Vol]139 mmol/TQntiwr003-832PrxHolzer Health System Comment on above:Performed By: #### LIPID, CMP, TSH #### [facility] [address] [place] [address] Dr. Scooby Arroyo nitrogen [Mass/Vol]15.0 mg/dLNormal7.0-17.0[facility] SystemComment on above:Performed By: #### LIPID, CMP, TSH #### [facility] [address] [place] [address] Dr. Scooby Arroyo nitrogen/Creatinine [Mass ratio]18.1 mg/mgNoMercy Health Tiffin HospitalComment on above:Performed By: #### LIPID, CMP, TSH #### [facility] [address] [place] [address] Dr. Scooby Corral 91-82-2770VYK9.761 uIU/mLNormal0.470-4.680The [facility] HospitalComment on above:Performed By: #### LIPID, CMP, TSH #### [facility] [address] [place] [address] Dr. Scooby [facility] for RehabilitationComment on above: Result Comment: <0.34 UIU/ml HYPERTHYROID 0.34-5.60 UIU/ml EUTHYROID >5.60 UIU/ml HYPOTHYROIDPerformed By: #### LIPID, CMP, TSH #### [facility] [address] [place] [address] Dr. Scooby Irvin Vital Signs Date TimeVital SignValuePerforming NebxvtnyeXtdfhtod84-49-5790 12:58-0400Body cejmrd43.3 kgLaurita Morales MD Work Phone: [facility]10-19-2025 12:20-0400 Respiratory rate17 /minLaurita Morales MD Work Phone: [facility]10-19-2025 11:11-0400 Body mdtrgrfwvyq34.6 [degF]Laurita Morales MD Work Phone: [facility]10-19-2025 11:11-0400 Diastolic blood dahatyhe34 mm[Hg]Laurita Morales MD Work Phone: 1(456)[address] [place], [place] 9176110-19-2025 11:11-0400 Heart rate77 /minLaurita Morales MD Work Phone: 1(884)[address] [place], [place] 9176110-19-2025 11:11-0400 SaO2% (BldA) [Mass fraction]94 %Laurita Morales MD Work Phone: [phone])[address] [place], [place] 9176110-19-2025 11:11-0400 Systolic blood vxspibaw391 mm[Hg]Laurita Morales MD Work Phone: 1(666)[address] [place], [place] 9176110-19-2025 05:13-0400 Body jqmydk30.6 kgLaurita Morales MD Work Phone: 1(664)[address] [place], [place] 9176110-18-2025 00:00-0400 Inhaled oxygen flow rate1 L/minLaurita Morales MD Work Phone: [phone])[address] [place], [place] 9176110-16-2025 06:05-0400 Body hepczk062.32 cmLaurita Morales MD Work Phone: 1(150)[address] [place], [place] 9176110-10-2025 09:30-0400 Body ijtljf681.7 cmLaurita Morales MD Work Phone: 1(614)[address] [place], [place] 9176110-10-2025 09:30-0400 Body mass index (BMI) [Ratio]37.5 kg/h3DiekqlLaurita Morales MD Work Phone: [phone])[address] [place], [place] 9176110-10-2025 09:30-0400 Body ahvdwk63.4 kgLaurita Morales MD Work Phone: 1(686)[address] [place], [place] 9176110-09-2025 10:15-0400 Diastolic blood judlhhvd29 mm[Hg]Laurita Morales MD Work Phone: 1(178)[address] [place], [place] 9176110-09-2025 10:15-0400 Systolic blood jobpgxyz908 mm[Hg]Laurita Morales MD Work Phone: 1(306)[address] [place], [place] 9176110-09-2025 10:00-0400 Heart rate88 /Caridad Morales MD Work Phone: 1(086)[address] [place], [place] 9176110-09-2025 09:53-0400 Body mgeryi542.7 cmLaurita Morales MD Work Phone: 1(437)[address] [place], [place] 9176110-09-2025 09:53-0400 Body mass index (BMI) [Ratio]37.6 kg/o7ZlhfzlLaurita Morales MD Work Phone: 1(591)[address] [place], [place] 9176110-09-2025 09:53-0400 Body lylxjs20.48 kgLaurita Morales MD Work Phone: 1(649)[address] [place], [place] 9176109-24-2025 11:12-0400 Body ngpkga72.5 kgLaurita Morales MD Work Phone: 1(418)[address] [place], [place] 9176109-08-2025 09:24-0400 Diastolic blood xyshuxtv62 mm[Hg]Laurita Morales MD Work Phone: 1(097)[address] [place], [place] 9176109-08-2025 09:24-0400 Systolic blood qpytlogw903 mm[Hg]Laurita Morales MD Work Phone: 1(694)[address] [place], [place] 9176109-08-2025 08:54-0400 Body .7 cmLaurita Morales MD Work Phone: 1(645)[address] [place], [place] 9176109-08-2025 08:54-0400 Body mass index (BMI) [Ratio]38.1 kg/z5HazdnxLaurita Morales MD Work Phone: 1(357)[address] [place], [place] 9176109-08-2025 08:54-0400 Body jieevq91.38 kgLaurita Morales MD Work Phone: 1(673)[address] [place], [place] 9176109-08-2025 08:54-0400 Heart rate77 /Caridad Morales MD Work Phone: 1(596)[address] [place], [place] 9176108-20-2025 09:54-0400 Body deeuth361.97 cmLaurita Morales MD Work Phone: 1(360)[address] [place], [place] 9176108-20-2025 09:54-0400 Body mass index (BMI) [Ratio]37.5 kg/h3SoewaqLaurita Morales MD Work Phone: [facility]08-20-2025 09:54-0400 Body ewfxja59.6 kgLaurita Morales MD Work Phone: [facility]05-13-2025 13:30-0400 Body .9 cmMahumberto Veras PA Work Phone: [phone] 13:30-0400Body mass index (BMI) [Ratio]32.11 kg/w3Cryvhgfhumberto Veras PA Work Phone: [facility] HospitalQqhkvsktbf78-11-1086 13:30-0400Body pilgjr91.12 kgMahumberto Veras PA Work Phone: [facility] HospitalJanesvdaep28-68-1441 08:53-0400Body givbfh551.97 cmAv[facility]03-11-2025 08:53-0400Body mass index (BMI) [Ratio]36.5 kg/h0ZoxaocepzAvita Health System [facility]03-11-2025 08:53-0400Body bsmhea16.57 kgAv[facility]03-11-2025 08:53-0400Diastolic blood zblrsupx17 mm[Hg][facility]03-11-2025 08:53-0400 Heart rate80 /minAvita Health System [facility]03-11-2025 08:53-0400Systolic blood mm[Hg][facility]02-07-2025 10:54-0500 Blood Pressure LocationMuhammad Sarmini [phone]-VbozgMercy Health [facility]iffin Hospital02-07-2025 10:54-0500Diastolic blood smljsmup14 mm[Hg]Salazar Sarmini [phone]-ZqyjtMercy Health Tiffin Hospital02-07-2025 10:54-0500Heart rate71 /minMuhammad Sarmini 552-3608Inyqfz-SsiwvMercy Health Tiffin Hospital02-07-2025 10:54-0500Systolic blood mm[Hg]Salazar Sarmini [phone]-Hgmio[address] [place], [place] 0378512-19-2024 13:46-0500Diastolic blood bdlrdcra52 mm[Hg]Salazar Sarmini [phone]-Pfqbq[address] [place], [place] 0378512-19-2024 13:46-0500Mean blood ggibduml355 mm[Hg]Salazar Sarmini [phone]-Bqwsa[address] [place], [place] 0378512-19-2024 13:46-0500Systolic blood uaecfwgp500 mm[Hg]Salazar Sarmini [phone]-Vhyzf[address] [place], [place] 0378512-19-2024 13:41-0500Blood Pressure LocationMuhammad Sarmini 284-7944Niwglj-Ahlwx[address] [place], [place] 0[address]8512-19-2024 13:41-0500Diastolic blood kykrcklx25 mm[Hg]Salazar Sarmini [phone]-Zmhkb[address] [place], [place] 0378512-19-2024 13:41-0500Heart rate80 /minMuhammad Sarmini 153-8775Cpfklr-Felwr[address] [place], [place] 0[address]8512-19-2024 13:41-0500Systolic blood ngwjfnlo433 mm[Hg]Salazar Sarmini 436-8482Oxedsc-Aavyr[address] [place], [place] 0378512-04-2024 13:25-0500Diastolic blood mm[Hg]Salazar Sarmini [address] [place], [place] 7213412-04-2024 13:25-0500Heart rate79 /minMuhammad Sarmini [address] [place], [place] 7213412-04-2024 13:25-0500Mean blood qefgejkt826 mm[Hg]Salazar Sarmini [facility]12-04-2024 13:25-0500 Respiratory rate17 /minMuhammad Sarmini [facility]12-04-2024 13:25-9386XxF1% (BldA) [Mass fraction]96 %Salazar Sarmini [facility]12-04-2024 13:25-0500 Systolic blood ggovrkdb654 mm[Hg]Salazar Sarmini [address] [place], [place] 7213412-04-2024 13:15-0500 Diastolic blood anbuufns63 mm[Hg]Salazar Sarmini [address] [place], [place] 3508512-04-2024 13:15-0500Heart rate79 /minMuhammad Sarmini [address] [place], [place] 7213412-04-2024 13:15-0500Mean blood mm[Hg]Salazar Sarmini [facility]12-04-2024 13:15-0500 Respiratory rate17 /minMuhammad Sarmini [facility]12-04-2024 13:15-2642GqU0% (BldA) [Mass fraction]96 %Salazar Sarmini [facility]12-04-2024 13:15-0500 Systolic blood prtajumv603 mm[Hg]Salazar Sarmini [facility]12-04-2024 13:00-0500 Diastolic blood jhlbiffr43 mm[Hg]Salazar Sarmini [facility]12-04-2024 13:00-0500Heart rate72 /minMuhammad Sarmini [address] [place], [place] 7213412-04-2024 13:00-0500Mean blood mm[Hg]Salazar Sarmini [address] [place], [place] 7213412-04-2024 13:00-4304DmM9% (BldA) [Mass fraction]97 %Salazar Sarmini [address] [place], [place] 7213412-04-2024 13:00-0500 Systolic blood mm[Hg]Salazar Sarmini [address] [place], [place] 7213412-04-2024 12:50-0500Body dxngzceroqc55.24 [degF]Salazar Sarmini [address]12-04-2024 12:44-0500 Respiratory rate18 /minMuhammad Sarmini [address] [place], [place] 7213412-04-2024 12:40-0500 Respiratory rate19 /minMuhammad Sarmini [address] [place], [place] 7213412-04-2024 12:35-0500 Respiratory rate19 /minMuhammad Sarmini [address] [place], [place] 7213412-04-2024 10:59-0500Blood Pressure LocationMuhammad Sarmini [address] [place], [place] 7213412-04-2024 10:59-0500Body jcorueikiea64.24 [degF]Salazar Sarmini [address] [place], [place] 72[address]10-23-2024 08:58-0400Blood Pressure LocationMuhammad Sarmini [phone]-Czcem[address] [place] [address] Digestive Jqtqvg10-50-1292 08:58-0400Diastolic blood fmomndjj03 mm[Hg]Salazar Sarmini [phone]-QrsnvMercy Health Tiffin Hospital10-23-2024 08:58-0400Heart rate84 /minMuhammad Sarmini [phone]-KmvvkMercy Health Tiffin Hospital10-23-2024 08:58-0400Respiratory rate16 /minMuhammad Sarmini [phone]-MvugcMercy Health Tiffin Hospital10-23-2024 08:58-0400Systolic blood pqsotltu761 mm[Hg]Salazar Sarmini [phone]-WimsaMercy Health Tiffin Hospital10-23-2024 08:49-0400Blood Pressure LocationMuhammad Sarmini [phone]-KxptoMercy Health Tiffin Hospital10-23-2024 08:49-0400Respiratory rate16 /minMuhammad Sarmini [phone]-UtdtmMercy Health Tiffin Hospital07-25-2023 09:00-0400Body .97 cmLaurita Morales Other [employer] Other 07-25-2023 09:00-0400Body mass index (BMI) [Ratio] 36.74 kg/t2OricmlLaurita Morales Other [employer] Other 07-25-2023 09:00-0400Body detfak20.03 kgLaurita Morales Other [employer] Other 07-25-2023 09:00-0400Diastolic blood zzqbcjqi67 mm[Hg] Laurita Morales Other [employer] Other 07-25-2023 09:00-3415GzG4% (BldA) [Mass fraction]97 % Laurita Morales Other [employer] Other 07-25-2023 09:00-0400Systolic blood nltwiniy361 mm[Hg] Laurita Morales Other [email or web address] Other 01-19-2023 10:30-0500Body .97 cmLaurita Carmen Other [employer] Other 01-19-2023 10:30-0500Body mass index (BMI) [Ratio] 36.06 kg/z4Ofttyu Carmen Other [facility] [employer] Other 01-19-2023 10:30-0500Body .67 kgLaurita Carmen Other [employer] Other 01-19-2023 10:30-0500Diastolic blood chenapbj52 mm[Hg] Laurita Morales Other [employer] Other 01-19-2023 10:30-0360OtV0% (BldA) [Mass fraction]98 % Laurita Morales Other [employer] Other 01-19-2023 10:30-0500Systolic blood mm[Hg] Laurita Morales Other [facility] [employer] Other 09-28-2022 10:17-0400Diastolic blood uaxjawis34 mm[Hg] [employer] SYEDQuincy Biosc[employer] [phone]-AdcnuMercy Health Tiffin Hospital09-28-2022 10:17-0400Mean blood iopcrldh58 mm[Hg]Farooq Who@ 350-4446Dmddrt-XowffMercy Health Tiffin Hospital09-28-2022 10:17-0400Systolic blood vaiosyay335 mm[Hg]Farooq SALAM [phone]-UzwmiMercy Health Tiffin Hospital09-28-2022 10:15-0400Blood Pressure LocationMaher SALAM [phone]-YxncxMercy Health Tiffin Hospital09-28-2022 10:15-0400Diastolic blood ytxlyyzz48 mm[Hg]Farooq SALAM [phone]-PzuueMercy Health Tiffin Hospital09-28-2022 10:15-0400Heart rate78 /minMaher SALAM [phone]-VyxisMercy Health Tiffin Hospital09-28-2022 10:15-0400Respiratory rate16 /minMaher SALAM [phone]-KwkeyMercy Health Tiffin Hospital09-28-2022 10:15-0400Systolic blood npcfqeji536 mm[Hg]Farooq SALAM [phone]-LvbahMercy Health Tiffin Hospital03-30-2022 11:11-0400Diastolic blood rhbpuese15 mm[Hg]Farooq SALAM [phone]-VizlkWexner Medical Center Dig[facility]ive [facility] 974676-15-1366 11:11-0400Systolic blood iqsxugec648 mm[Hg] [facility] SALAM [phone]-JnuhjMercy Health Tiffin Hospital Encounters Encounter DateEncounter TypeCare ProviderFacilityStart: 12-10-2024 End: 26-18-4947nrgvgzmwyxQzgjhk E Braun MD Work Phone: 1([phone]-[facility]gebwkjom Health NeurosurgeryStart: 12-10-2024 End: 81-86-5394Wdukqem encounter procedureEric Geri Segal DO-[facility] Neuro[facility] Work Phone: start: 61-05-7285Fxs-patient / Non-visitCory Morales MD-[facility] Work Phone: start: 38-44-2421Tot-patient / Non-visitCatnoe Victoria [facility]ABarnesville [facility] Work Phone: Start: 66-78-0115Urj-patient / Non-visitEric N [facility]itaGr[facility] Work Phone: start: 11-26-2024 End: 28-36-2314Dlavmdcqir and management of inpatientEric N Luzma [facility]: 64-40-3856Aelljwfvdocpz examination Akin Morales MD Work Phone: [facility]: 11-20-2024 End: 68-46-6658bmgghwjhxfJexpop E Braun MD Work Phone: [facility] Work Phone: Start: 11-20-2024 End: 08-32-4087Lzoquqk encounter procedureEric [facility] Work Phone: start: 11-19-2024 End: 14-12-0878omkehhiqhnKvxajd E Braun MD Work Phone: [facility] Work Phone: Start: 11-19-2024 End: 32-24-3394Fkulcxy encounter procedureLaurita Morales MD-[facility] Work Phone: Start: 11-19-2024 End: 55-24-3300Dutnafbqdzcnf examination Akin Morales MDSouthview Medical Centertart: 11-12-2024 End: 91-05-1997Qyuitvu encounter procedureEric Ector [place] Work Phone: Start: 11-12-2024 End: 38-48-7085pqmfzbyxpaAhniyc E Braun MD Work Phone: [facility] Work Phone: Start: 30-45-7099Izpccikhe for preprocedural laboratory examinationEric [facility] Physician GroupStart: 11-04-2024 End: 93-16-0215gmxwulkcisYpdzdg E Braun MD Work Phone: [facility] Work Phone: Start: 11-04-2024 End: 05-07-6446Ckwxhzk encounter procedureEric N [facility] Work Phone: start: 10-28-2024 End: 98-44-4706ggfmfltofxNmvzyo E Braun MD Work Phone: [facility] Work Phone: Start: 10-28-2024 End: 97-50-5314Obsqtkg encounter procedureChristopher Joana Alvarez DO-[facility] Neurology [place] Work Phone: Start: 21-70-8288Baa-patient / Non-visitLaurita Morales MD-[facility] Work Phone: Start: 10-19-2024 End: 70-68-0204Siindtf encounter procedureLaurita Morales MD-[facility] Work Phone: Start: 09-30-2024 End: 39-58-1251pcpxuyzjjlWvopzt E Braun MD Work Phone: [facility] Work Phone: Start: 09-30-2024 End: 92-56-7705Hlrreem encounter procedureEric N EctorPe[facility]Health [facility] Work Phone: start: 08-20-2024 End: 83-51-1925Xfhnii flowsheetDolly ORR Work Phone: [facility] SWS ORTHOStart: 08-20-2024 End: 50-26-1389Prgmhb flowsDonny ORR Work Phone: [facility] SWS ORTHOStart: 08-20-2024 End: 25-13-8048Eqkxqw follow up visit related to original Keanu ORR Work Phone: [facility] SWS ORTHOComment on above:S/P right knee arthroscopy (Primary Dx)Start: 08-20-2024 End: 53-09-4315bqdpvhhzhvMDSRNXL J MEYERNot AvailableStart: 08-10-2024 End: 92-32-0573fzeajvkjenAmxaccv Vytautas Giedraitis MDFacility:[facility] [place] Start: 07-22-2024 End: 40-13-2029Dfqycy flowsheetDolly ORR Work Phone: [facility] FB ORTHOPAEDICSStart: 07-22-2024 End: 89-42-3637Ykkyka flowsDonny ORR Work Phone: [facility] FB ORTHOPAEDICSStart: 07-22-2024 End: 54-36-2076Mbbyku follow up visit related to original pxDolly ORR Work Phone: [facility] FB ORTHOPAEDICSComment on above:S/P right knee arthroscopy (Primary Dx)Start: 07-22-2024 End: 36-40-8863chtwmzyciyHKGPPZW J MEYERNot AvailableStart: 07-03-2024 End: 80-43-1158LumyijIusgp T Olsen NP Work Phone: [facility] FB ORTHOPAEDICSComment on above:Acute medial meniscus tear of right knee, initial encounter (Primary Dx)Start: 06-30-2024 End: 87-80-8419Pyuwse flowsheetSammantha Bull PTNOMS CI PTStart: 06-30-2024 End: 02-25-8993Trtifn flowsheetSammantha Bull PTNOMS CI PTStart: 06-30-2024 End: 37-39-3225hkyjxsegaoTsjznfqpf Bull PTNOMS CI PTComment on above:Pre-op examination (Primary Dx); Localized osteoarthritis of right kneeStart: 06-30-2024 End: 29-96-6799Vuoamgbwkavum examination doneSammantha Bull PTNOMS HealthcareStart: 06-24-2024 End: 73-75-7616Pztgihtlx Result EncounterMahumberto ORR Work Phone: [facility] External Department UnsolicitedStart: 06-24-2024 End: 60-24-4333Rarkvacjr Result EncounterMahumberto ORR Work Phone: [facility] External Department UnsolicitedStart: 06-23-2024 End: 24-64-4578Fbmoll flowsheetDolly ORR Work Phone: [facility] FB ORTHOPAEDICSStart: 06-23-2024 End: 05-96-2302Rhocee flowsheetDolly ORR Work Phone: [facility] FB ORTHOPAEDICSStart: 06-23-2024 End: 35-16-4636Fwdkorz encounter procedureMahumberto ORR Work Phone: [facility] FB ORTHOPAEDICSComment on above:Pre-op examination (Primary Dx)Start: 06-23-2024 End: 87-30-0002Tcvhygbuwmrtd examination doneDolly ORR Work Phone: noms HealthcareStart: 06-23-2024 End: 07-79-1258tjugvpebyfPQJEADR J MEYERNot AvailableStart: 05-13-2024 End: 15-57-5087Ggdiee flowsheetJr. Larissa Guerrero DO Work Phone: [facility] ORTHOStart: 05-13-2024 End: 75-38-9611Qzygik flowsheetJr. Larissa Guerrero DO Work Phone: [facility] ORTHOStart: 05-13-2024 End: 10-29-6764Aybpey outpatient visit 25 minutesJr. Larissa Guerrero DO Work Phone: noms [facility] ORTHOComment on above:Acute pain of right knee (Primary Dx); Acute medial meniscus tear of right knee, initial encounterStart: 05-13-2024 End: 14-05-8939hnmedpjnzdXKLARISSA Quiles AvailableStart: 05-04-2024 End: 99-98-9220ogathogjzaOfpomky Vytautas Giedraitis MDFacility:[facility] [place] Start: 04-21-2024 End: 83-87-6895wgcrljrswaQllglsuxnGreene Memorial Hospital Work Phone: Start: 04-21-2024 End: 64-03-0978Zlphyqo encounter procedureGranville Medical Center Physician GroupBarnesville Hospital Work Phone: Start: 04-15-2024 End: 88-11-8568Cgafru outpatient visit 25 minutesJr. Larissa Guerrero DO Work Phone: [facility] SWS ORTHOComment on above:Acute pain of left knee (Primary Dx); Acute pain of right knee; Acute medial meniscus tear of right knee, initial encounterStart: 04-15-2024 End: 24-89-1818Rnomva flowsheetJr. Larissa Guerrero DO Work Phone: [facility] SWS ORTHOStart: 04-15-2024 End: 15-52-2073Mhmsfd flowsheetJr. Larissa Guerrero DO Work Phone: [facility] SWS ORTHOStart: 04-15-2024 End: 08-92-5628ammxbtvydeCD.LARISSA AvailableStart: 03-20-2024 End: 43-14-1298rgxmurycjiTgmtmsej Talal SarminiFacility:[facility] DHStart: 03-20-2024 End: 90-45-7328Oxmyzxj encounter procedureMuhammad Talal Sarmini [phone]-TodiqWexner Medical Center [facility] Start: 03-18-2024 End: 37-97-6367Fcqgxo outpatient visit 15 minutesJr. Larissa Guerrero DO Work Phone: [facility] SWS ORTHOComment on above:Left knee pain, unspecified chronicity (Primary Dx); Internal derangement of left knee; Arthritis of left kneeStart: 03-18-2024 End: 91-11-7757uvjuzsrbsdBXLARISSA Quiles AvailableStart: 03-02-2024 End: 40-71-5719Ugitodsht encounterMaria Peña Giordano HEAVY TRUCK TECHNICIAN Work Phone: [facility] SWS ORTHOComment on above:MRIStart: 02-17-2024 End: 26-88-4551Mkfmms flowsheetMaria B Apling HEAVY TRUCK TECHNICIAN Work Phone: [facility] CI ORTHOPAEDICSStart: 02-17-2024 End: 45-09-1956Cluuof flowsheetMaria B Apling HEAVY TRUCK TECHNICIAN Work Phone: [facility] CI ORTHOPAEDICSStart: 02-17-2024 End: 15-66-5335Hgaesp outpatient visit 15 minutesMaria B Apling HEAVY TRUCK TECHNICIAN Work Phone: [facility] CI ORTHOPAEDICSComment on above:S/P left knee arthroscopy (Primary Dx); Left knee pain, unspecified chronicity; Arthritis of left knee; Internal derangement of left kneeStart: 02-17-2024 End: 62-54-1410eztlddjxkcDKPXC B APLINGNot AvailableStart: 01-30-2024 End: 66-07-6304izowniwsxwBblkzruy Talal SarminiFacility:[facility] DHStart: 01-30-2024 End: 74-11-0643Ffzcclt encounter procedureMuhammad Talal Sarmini [phone]-OemdtSamaritan North Health Center Health Start: 01-20-2024 End: 24-21-8964Knuuif flowsheetMaria B Apling HEAVY TRUCK TECHNICIAN Work Phone: [facility] CI ORTHOPAEDICSStart: 01-20-2024 End: 51-26-2518Bqkuel flowsheetMaria B Apling HEAVY TRUCK TECHNICIAN Work Phone: [facility] CI ORTHOPAEDICSStart: 01-20-2024 End: 29-57-8304Whmokq outpatient visit 25 minutesMaria B Apling HEAVY TRUCK TECHNICIAN Work Phone: n[facility] CI ORTHOPAEDICSComment on above:S/P left knee arthroscopy (Primary Dx); Left knee pain, unspecified chronicity; Arthritis of left kneeStart: 01-20-2024 End: 35-90-4056dintklhqytJUXFM B APLINGNot AvailableStart: 01-15-2024 End: 14-69-7491Kqhctfa encounter procedureMuhammad Talal Sarmini [facility] Start: 12-31-2023 End: 67-59-2383Lnbmfk flowsbridgetAbhi Yessi Katie HEAVY TRUCK TECHNICIAN Work Phone: [facility] CI ORTHOPAEDICSStart: 12-31-2023 End: 92-78-0803Mztqgq flowsbridgetAbhi Ramires HEAVY TRUCK TECHNICIAN Work Phone: NO[facility] CI ORTHOPA[facility]ICSStart: 12-31-2023 End: 87-74-7543Somcne follow up visit related to original meliAbhi Yessi Katie [employer]AV[employer] TR[employer] TECHNICIAN Work Phone: [facility] ORTHOPAEDICSComment on above:S/P left knee arthroscopy (Primary Dx); Left knee pain, unspecified chronicityStart: 12-31-2023 End: 04-87-4769nslbbowmowKURNA T OLSENNot AvailableStart: 12-06-2023 End: 53-05-2051jhvrvgouynNwpkvpqa Talal SarminiFacility:[facility]MCStart: 12-06-2023 End: 70-37-5137Nsu Drop offMuhammad Talal Sarmini [facility] Start: 12-04-2023 End: 45-42-2776jkjlvoeqffTwlpxtbr Talal SarminiFacility:[facility]MCStart: 12-04-2023 End: 97-45-5284Fkrjxpy encounter procedureMuhammad Talal Sarmini [facility] Start: 50-80-8226urrdxuyqgvUtmnelru Talal Sarmini [facility] DHStart: 12-04-2023 End: 71-12-1979Ryydsaf encounter procedureMuhammad Talal Sarmini [phone]-[facility]nnebW[facility] Start: 87-33-2528gphkamtxwiWkzuwavq SarminiFacility:[facility] [place]vueStart: 11-13-2023 End: 63-22-4784Idvsyk flowsheetMaria B Apling HEAVY TRUCK TECHNICIAN Work Phone: [facility]OPAEDICSStart: 11-13-2023 End: 50-53-2856Ixqpbc flowsheetMaria B Apling HEAVY TRUCK TECHNICIAN Work Phone: [facility]ICSStart: 11-13-2023 End: 33-74-3248Psjszh follow up visit related to original pxMaria B Apling HEAVY TRUCK TECHNICIAN Work Phone: [facility]OPAEDICSComment on above:Arthritis of left knee (Primary Dx); S/P left knee arthroscopyStart: 11-13-2023 End: 35-78-3574ebralbfgetVMPDF B APLINGNot AvailableStart: 10-16-2023 End: 36-04-9014Jxycye flowsheetMaria B Apling HEAVY TRUCK TECHNICIAN Work Phone: [facility]ICSStart: 10-16-2023 End: 33-56-5210Svzzli flowsheetMaria B Apling HEAVY TRUCK TECHNICIAN Work Phone: [facility]OPAEDICSStart: 10-16-2023 End: 45-28-8854Umwged follow up visit related to original pxMaria B Apling HEAVY TRUCK TECHNICIAN Work Phone: [facility] CI ORTHOPAEDICSComment on above:Arthritis of left knee (Primary Dx); S/P left knee arthroscopyStart: 10-16-2023 End: 01-97-2060ztzwxegbvwFXWHL B APLINGNot AvailableStart: 10-08-2023 End: 48-76-8913SwtclwOwavm T Olsen HEAVY TRUCK TECHNICIAN Work Phone: noms FB ORTHOPAEDICSComment on above:Post-op pain (Primary Dx)Start: 09-10-2023 End: 11-10-0422jtbsozkeroLNDPI A HUDDLESTONNot AvailableStart: 22-25-1735Iffbkfd encounter procedureSouthview Medical Centertart: 08-26-2023 End: 56-69-1669fmflngszhlUPLGY B APLINGNot AvailableStart: 03-07-2023 End: 74-92-9604dppefzagtoJjqgsm Morales Other [email or web address] Other Start: 41-32-4848Aoflzp outpatient visit 15 minutes [facility]ita Galarza [facility] ClinicStart: 09-20-2022 End: 73-57-3739tnpiaeennuTneijz Morales Other [employer] Other Start: 61-17-8407Bksjcfsvv encounterMarsudhakar [facility] ClinicStart: 09-04-2022 End: 50-18-7508arqacxourkIboluy Morales Other [employer] Other Start: 95-80-2137Nmquuxl encounter procedureMarcimari MoralesProMedica Fostoria [facility] ClinicStart: 00-04-7652mbtlfijzvkZJ LAURITA MORALES Facility:Y6Wuvji: 03-01-2022 End: 19-81-2634afpturgtqgPxuizp Morales Other [email or web address] Other Start: 87-70-7615Chtnxc outpatient visit 15 minutes [facility]ita [facility] ClinicStart: 01-18-2022 End: 90-91-0872knhdscmouaPC LAURITA MORALESFacility:K2Acyjx: 11-21-2021 End: 06-07-8927lxufsjbakzPMPWK SALAMFacility:G9Ljfst: 11-08-2021 End: 76-69-1269Zqjqigh encounter procedureMaher SALAM [phone]-FzdddW[facility] Start: 10-19-2021 End: 16-95-6947ucjsofnykjQN LAURITA MORALESFacility:A6Kunml: 09-27-2021 End: 18-03-5330hwqcxnwbnsLS LAURITA MORALESFacility:Z4Whvlz: 09-26-2021 End: 78-78-9231ojgoiazabxFB LAURITA E BRAUNFacility:Y3Pwmif: 07-53-1616Sikhsmvnl for preprocedural laboratory examinationDR RADHA [facility] Start: 09-22-2021 End: 50-45-6335apkppqidvcRS LAURITA E BRAUNFacility:C8Gfuvt: 09-22-2021 End: 80-81-1817Biidyzfqv for preprocedural laboratory examinationDR LAURITA MORALESFacility:Z5Xbfte: 13-89-5948hqlzvsdrjjSV LAURITA E BRAUNFacility:O9Houoq: 09-06-2021 End: 81-91-7634iffdsewikgCOSN SOLISFacility:L7Rnqsz: 90-86-2418Jxzue health examinationMaliamari Carmen Other [employer] Other Start: 06-22-2021 End: 64-79-5833oypzkmeldeIHKGQ SALAMFacility:D7Xvahs: 05-26-2021 End: 32-30-2558Czvbieu encounter procedureMD Cy DeRiso Work Phone: [facility] Start: 05-22-2021 End: 10-38-2765owgstskaiwQY LAURITA E CARMENFacility:X5Pxvcy: 05-10-2021 End: 67-35-8868Gliutte encounter procedureMaher SALAM [phone]-PmlwoWexner Medical Center [facility] Start: 05-04-2021 End: 00-77-6896Jtllgay encounter procedureMD Cy DeRiso Work Phone: [facility] Main CampusStart: 04-20-2021 End: 28-54-3372gearcwxtipBZECG SALAMFacility:Q9Tdcnv: 04-01-2021 End: 30-49-9526mjthfzdsgiDQ LAURITA E CARMENFacility:Z0Fabzk: 03-23-2021 End: 89-63-9564yokgmpsgexFQ LAURITA E CARMENFacility:I7Dajoi: 03-09-2021 End: 47-23-7219bznollvnfsMU LAURITA MORALESFacility:H1 Procedures DateProcedureProcedure DetailPerforming ClinicianStart: 71-09-6309Pdeonhex screenMarfigueroaa CarmenComment on above:Order Comment: Date of Surgery: [id number] Result Comment: PERFORMED BY: [facility] [place] [address] PATHOLOGIST FLIGHT DECK OFFICER MEGAN BENDER M.D.Start: 06-95-7082HCN BASIC METABOLIC PANELMatthew Andre Veras PA Work Phone: Start: 30-12-1767Wkwgvkasfa examination knee 1/2 views Jr. Larissa Hurley Stepanic DO Work Phone: Start: 85-08-7319GjddpjkkhfvUslzk Apling HEAVY TRUCK TECHNICIAN Work Phone: Start: 72-93-4058EhzxtlftdjvUeegetyr Sarmini Start: 27-49-5542BxagxrxeolcsnlwxeyfvsnbckkYowaqbjh Sarmini Start: 16-91-8358Zdgx of meniscus of knee (disorder) Salazar Sarmini Start: 42-51-8505Nrchaii of thyroidectomyStatus post total thyroidectomyGrant Katie HEAVY TRUCK TECHNICIAN Work Phone: Start: 02-39-5898UcinhzdswdcNjjie Ramires HEAVY TRUCK TECHNICIAN Work Phone: Start: 48-36-1967Oqbrrpokzzt w/biopsy single/multiple Farooq SALAM ColonoscopyMaher SALAM History of appendectomyMuhammad Sarmini History of thyroidectomyMuhammad Sarmini Screening for malignant neoplasm of breastEmilycimari Morales Other Plan of Treatment DateCare ActivityDetailAuthorStart: 69-56-2139Uqvxiclxc for malignant neoplasm of colonNOMS HealthcareStart: 70-11-0049Wcfeuspoi for malignant neoplasm of colonNOMS HealthcareStart: 71-54-5471JpnwuvfunSouthview Medical Centertart: 91-59-5480Igbefomz admissionSouthview Medical Centertart: 10-12-2024 Influenza vaccinationInfluenza Vaccine (#1)[facility] HealthcareStart: 09-30-2024 Patient referralSamaritan [facility] Health Center Work Phone: Start: 08-20-2024 End: 69-27-0756Olsyytc encounter procedureNOMS SWS ORTHOComment on above:S/P right knee arthroscopy (Primary Dx)Start: 07-22-2024 End: 90-72-5114Axzgwjv encounter procedureNOMS FB ORTHOPAEDICSComment on above: S/P right knee arthroscopy (Primary Dx)Start: 07-21-2024 End: 46-68-0573Xfhqdvp encounter tlzkovhvb68/10/2025 11:15 AM EDT Office Visit [facility] [address] [place] [address] Dolly Veras, PA [address] [facility] [address] [place] [address] [facility] FB ORTHOPAEDICSStart: 06-30-2024 End: 82-42-8977hjufeakfhr64/20/2025 9:30 AM EDT Evaluation [facility] [address] [facility] [address] [place] [id number] Sofia Bull PTNOMS CI PTStart: 06-23-2024 End: 44-89-4616Gyoqs metabolic 1998 panel - Serum or PlasmaBasic metabolic panel Lab Routine Pre-op examination Expected: 06/23/2024 (Approximate), Expires: [facility] Work Phone: Comment on above:Expected: 06/23/2024 (Approximate), Expires: 06/23/2025Start: 06-23-2024 End: 76-62-1175Poizvfa encounter procedureNOMS FB ORTHOPAEDICSComment on above: Pre-op examination (Primary Dx)Start: 05-13-2024 End: 27-29-1603Qfdsrwk encounter procedureNOMS SWS ORTHOComment on above:Arrived Start: 04-15-2024 End: 41-23-7851Fipjwne encounter squmdhxqt73/05/2025 2:15 PM EST Office Visit [facility] [address] [place] [address] Jr. Larissa Guerrero, [address] [place] [address] Acute pain of left kneeNOMS SWS ORTHO Comment on above:Acute pain of left kneeStart: 02-17-2024 End: 12-46-3751UH Knee - left WO contrastMR knee left wo IV contrast Imaging Routine Internal derangement of left knee Expected: 02/17/2024 (Approximate), Expires: 02/16/2025[facility] Work Phone: Comment on above:Expected: 02/17/2024 (Approximate), Expires: 02/16/2025Start: 02-17-2024 End: 53-64-0273Xpxmvxa encounter vkvohsakc67/06/2025 9:45 AM EST Office Visit [facility] [address] [place] [address] Adali Giordano, MACI [address] [place] [address] S/P left knee arthroscopy (Primary Dx); Left knee pain, unspecified chronicity; Arthritis of left kneeNOMS CI ORTHOPAEDICSComment on above:S/P left knee arthroscopy (Primary Dx); Left knee pain, unspecified chronicity; Arthritis of left kneeStart: 01-20-2024 End: 29-75-1349Jijnevz encounter procedureNOMS CI ORTHOPAEDICSComment on above: S/P left knee arthroscopy (Primary Dx); Left knee pain, unspecified chronicity; Arthritis of left kneeStart: 12-31-2023 End: 14-14-4965Brpvnku encounter lbmzqoqct42/19/2024 10:45 AM EST Office Visit [facility] [address] [place] [address] Abhi Ramires, HEAVY TRUCK TECHNICIAN [address] [place] [address] ArrivedNOMS CI ORTHOPAEDICSComment on above:Arrived Start: 11-13-2023 End: 03-41-7369Vxbiwxf encounter procedureNOMS CI ORTHOPAEDICSComment on above: Arthritis of left knee (Primary Dx); S/P left knee arthroscopyStart: 10-16-2023 End: 24-84-4824Kjtrkip encounter procedureNOMS CI ORTHOPAEDICSComment on above: ArrivedStart: 99-77-7727Ptrxldosi vaccinationInfluenza Vaccine (#1)[facility] HealthcareStart: 10-09-2023 End: 72-50-7471Slsmgoo encounter dkntxldog21/28/2024 11:30 AM EDT Procedure Visit [facility] EXT DEP Danielle Curran DO [address] [place] [address] [facility]OMS EXT DEPStart: 1950 Screening for malignant neoplasm of colonNOMS HealthcareComprehensive metabolic 2000 panel - Serum or PlasmaAvita Health System Bucyrus HospitalCT Lumbar spine WO contrastAvita Health System Bucyrus HospitalDXA Skeletal system.axial Views for bone densityAvita Health System Bucyrus HospitalPatient EducationKnow your [facility] Work Phone: Patient referralSamaritan North Health Center Work Phone: XR Foot - right GE 3 ViewsAvita Health System Bucyrus HospitalXR Lumbar spine ViewsBaptist Medical Center Immunizations Immunization DateImmunizationNotesCare QmlqowkmGpklkuye90-22-5926krxwakekf, high dose seasonal, preservative-freeLaurita Morales MD Work Phone: [facility]10-02-2024influenza virus vaccine, unspecified formulationMartin Tatum 155-4318Jwhugn-VxpcdWexner Medical Center Digestive Uhdgeb52-58-3285 ABRYSVO - Respiratory syncytial virus (RSV), vaccine, bivalent, protein subunit RSV prefusion F, diluent reconstituted, 0.5 mL, PFGrant Ramires HEAVY TRUCK TECHNICIAN Work Phone: [facility] HospitalUbpxgcgeao09-13-9773MDFL-VWZ-3 (COVID-19) vaccine, mRNA, spike protein, LNP, PF, 50 mcg/0.5 mLGrant Ramires HEAVY TRUCK TECHNICIAN Work Phone: [facility] HospitalWxtbyegfvh35-21-7590Menqyuscu, Seasonal, Quadrivalent, AdjuvantedGrant Ramires HEAVY TRUCK TECHNICIAN Work Phone: [phone] HospitalQbrucbiihd37-81-4267yrksfozti virus vaccine, unspecified formulationGrant Ramires HEAVY TRUCK TECHNICIAN Work Phone: Awvmhd-Cljok[address] [place] [address] Digestive Jzqgnf81-59-0051 zoster vaccine recombinantGrant Ramires HEAVY TRUCK TECHNICIAN Work Phone: [facility] HospitalMixpmuiioa90-92-3658dabqnl vaccine recombinant Abhi Ramires HEAVY TRUCK TECHNICIAN Work Phone: [facility] HospitalTklaxevblh56-39-0152bsbebksgl virus vaccine, unspecified formulationMuhammad Levymini 911-6714Ovbyyx-ZwliwWexner Medical Center [facility]est[facility] Ugafda23-46-9296 Seasonal trivalent influenza vaccine, adjuvanted, preservative freeGrant Ramires HEAVY TRUCK TECHNICIAN Work Phone: [facility] HospitalMpybtfoykb36-70-7274OFPX-ZcD-6 (COVID-19) mRNAMUL.ORD!g20360Jabvatdl Sarmini [phone]-KpcmuWexner Medical Center Digestive [facility] HospitalComment on above:Result Comment: 2023-12-03: WBA6018-38-5056FXSPL-68 mRNA-1273 (Moderna)MD Cy Sears Work Phone: [facility] HospitalComment on above: Result Comment: 2023-12-03: TVK4979-29-4713cwmlzeruh virus vaccine, split virus (incl. purified surface antigen)Laurita Morales Other [phone] Systems [employer] Other 10674985-79-6539dabtbshgf virus vaccine, unspecified formulationGrant Ramires HEAVY TRUCK TECHNICIAN Work Phone: [facility] HospitalBgdvugvbkt64-65-8621seliksfxn virus vaccine, unspecified formulationMaher SALAM 188-1066Mrphmk-NhzktWexner Medical Center Digestive Health 784530-23-4146SEDHP-59 mRNA-1273 (Moderna)MD Cy Sears Work Phone: [facility]02-18-2021SARS-CoV-2 (COVID-19) mRNA-1273 vaccineMuhammad Sarmini 299-4386Zelbjo-KntbaWexner Medical Center Digestive Psxpwu87-87-5073 COVID-19 mRNA-1273 (Moderna)MD Cy Sears Work Phone: [facility]10-09-2020influenza virus vaccine, split virus (incl. purified surface antigen)Laurita Morales Other [facility] [employer] Other 10011209-73-4080wwnhjupzd virus vaccine, unspecified formulationGrant Ramires HEAVY TRUCK TECHNICIAN Work Phone: [facility] HospitalFrqlhdybed96-50-7439bzhpby vaccine, liveGrant Ramires HEAVY TRUCK TECHNICIAN Work Phone: [facility] HospitalEpsdtcfixn41-70-2930cfszxmzkrzqz polysaccharide vaccine, 23 valentGrant Ramires HEAVY TRUCK TECHNICIAN Work Phone: [facility] HospitalGgtpphcinf13-57-1872ckuknqqis virus vaccine, unspecified formulationMuhammad Sarmini [phone]-AcmzmWexner Medical Center Digestive Tcdtih53-39-6393 pneumococcal polysaccharide vaccine, 23 valentGrant Ramires HEAVY TRUCK TECHNICIAN Work Phone: [facility] HospitalDrxhhfgdyd11-89-1404Gpjiqrbt trivalent influenza vaccine, adjuvanted, preservative freeGrant Katie HEAVY TRUCK TECHNICIAN Work Phone: [facility] HospitalZdyhoynsig90-90-0150oqwgumtjp virus vaccine, split virus (incl. purified surface antigen)Laurita Carmen Other noCert[employer] Other 09589353-28-8140tzcnxsrju virus vaccine, unspecified formulationMuhammad Sarmini 280-2173Viwthx-WfhdbMercy Health Tiffin Hospital09-13-2017 influenza, high dose seasonal, preservative-freeFermint Katie HEAVY TRUCK TECHNICIAN Work Phone: [facility] HospitalFpwdfvmvqd81-00-1990wtpgofcqcomh conjugate vaccine, 13 valentMarcia Morales Other [facility] [employer] Other 09868398-72-3031qpqggjgrm virus vaccine, unspecified formulationMuhammad Sarmini 688-9730Zdkcfu-RbxjcMercy Health Tiffin Hospital09-27-2016 Seasonal trivalent influenza vaccine, adjuvanted, preservative freeAbhi Ramires HEAVY TRUCK TECHNICIAN Work Phone: [facility] HospitalTkobpqcytt96-86-2658zvtjifqjw virus vaccine, unspecified formulationMuhammad Sarmini 357-7114Flakat-XzedcMercy Health Tiffin Hospital10-06-2015 influenza, seasonal, injectable, preservative freeAbhi Ramires HEAVY TRUCK TECHNICIAN Work Phone: noM[facility] St[facility] JosephBxoqecfgzd90-05-4699etbnvgn and diphtheria toxoids, adsorbed, preservative free, for adult use (5 Lf of tetanus toxoid and 2 Lf of diphtheria toxoid)Abhi Ramires HEAVY TRUCK TECHNICIAN Work Phone: [facility] HospitalTodloqcyde05-10-3798twoqani toxoid, reduced diphtheria toxoid, and acellular pertussis vaccine, adsorbedMarcia Morales Other [employer] Other 10-160569-18-7687tyyukxthbfqi polysaccharide vaccine, 23 valentMarcia Morales Other [facility] [employer] Other 02-627049-40-3028ftfmow vaccine, liveGrant Katie HEAVY TRUCK TECHNICIAN Work Phone: [facility] HospitalYgspmywdwc19-02-4166zicbvrmnd virus vaccine, unspecified formulationMuhameverton Segurai 438-9078Ggeeli-YojbzWexner Medical Center Digestive Qwacan87-37-1726 influenza, seasonal, injectableGrant Ramires HEAVY TRUCK TECHNICIAN Work Phone: noMosaic Life [facility] at St. JosephSqzobpuwan08-16-7229bepagapvm B vaccine, adult dosageGrant Ramires HEAVY TRUCK TECHNICIAN Work Phone: [facility] HospitalIwvuwpfytd66-59-2777cfdxxqtuv B vaccine, adult dosageGrant Ramires HEAVY TRUCK TECHNICIAN Work Phone: [facility] HospitalZfpxasdjfa67-25-0129tpiznmifn B vaccine, adult dosageGrant Ramires HEAVY TRUCK TECHNICIAN Work Phone: [facility] HospitalLpgygjkkxn00-70-6371DR(adult) unspecified formulation; Translations: [Td(adult) unspecified formulation]Abhi Ramires HEAVY TRUCK TECHNICIAN Work Phone: [facility] HospitalNEGATED: Highlighted row has not occurred!50-77-6960pfgzupmjl virus vaccine, unspecified formulationMaher KUNALAM [phone]-DinvnWexner Medical Center [facility]estive Health Payers DatePayer CategoryPayerPolicy [id number]-gev [id number] Health Insurance [id number] [id number] [id number] 2014Medicare [id number] [id number]-p3z8-boitm544671126-07-3067Kxjsdsh7811928 2.16.840.1.245140.3.579.2.11107-06-2652Ildfpwq7186241 2.16.840.1.408350.3.579.2.67474-62-1720Fhjckfu9373186 2.16.840.1.569377.3.579.2.12659-77-3159Zesmjam6060649 2.16840.1.356851.3.579.2.50933-94-6530Oqrvqfl3390688 2.16840.1.275425.3.579.2.08225-85-3537Hqnufgu9088171 2.16840.1.815434.3.579.2.97163-84-9628Xovdefh6069689 2.840.1.232573.3.579.2.59246-11-1181Cqhvsci9492300 2.16840.1.203208.3.579.2.92071-15-9735Pohfxmp9896085 2.16840.1.662080.3.579.2.73536-30-8146Wtotniw7473428 2.840.1.251065.3.579.2.92150-84-7102Tgpxheq6150926 2.840.1.714437.3.579.2.36927-71-5379Cehtnwm4408210 2.16840.1.472975.3.579.2.62807-82-0382Cxdpvix7048912 2.16840.1.131768.3.579.2.07944-63-5546Ltzvsvl0892173 2.16840.1.980993.3.579.2.99154-14-4678Fevezdd5175441 2.16840.1.675139.3.579.2.40988-04-4438Mpziurq1443592 2.16.840.1.671796.3.579.2.54794-51-0809Itxaznd3352487 2.16.840.1.671918.3.579.2.90699-99-9575Lwppulk17223138 2.16840.1.825586.3.579.2.84255-40-7705Mrwemqw75260646 2.16840.1.237160.3.579.2.50494-69-3445Hvhtpqz27687865 2.840.1.026225.3.579.2.39455-02-1391Nfwgfqe77763805 2.840.1.354286.3.579.2.089754-11-7407Bfotaul13396469 2.840.1.638618.3.579.2.520538-33-3771Wkueoap4074482 2.840.1.405343.3.579.2.303654-31-0416Oksidxl2727315 2.840.1.528296.3.579.2.279621-46-3853Qaqexuh4899607 2.840.1.000452.3.579.2.845423-06-1867Ubxxvyz9488686 2.840.1.617966.3.579.2.277927-77-5583Vjriaza1773932 2.840.1.751998.3.579.2.058917-42-4326Zzyyony5957980 2.16840.1.552313.3.579.2.504099-76-6500Umgfliu2313048 2.16840.1.843641.3.579.2.606249-04-0562Pzwhkml3831621 2..0.1.189820.3.579.2.102369-94-1681Aspzmzu0392009 2.0.1.842410.3.579.2.409426-62-2725Fphxsda6316141 2.0.1.443646.3.579.2.478585-49-6440Asnnoht8236103 2.0.1.231603.3.579.2.555148-09-2828Eppbnxd9802658 2.0.1.153513.3.579.2.465871-34-2741Uubutow1044188 2.0.1.217552.3.579.2.530370-28-7092Fqgnxdm6651695 2.0.1.691047.3.579.2.202310-32-2208Sobbbeg077948271 2.0.1.753109.3.579.2.89977-77-8306Lfduent007557660 2.0.1.319445.3.579.2.72217-17-4426Hmzaptc67311130 2.0.1.59[id number] 962ai495-a0ui-9l14-910i-7y950v605a38Hfcabhv63433886 2.0.1.746471.3.579.2.727Toimqkz65972677 2.0.1.490819.3.579.2.531 Social History DateTypeDetailFacilityTobacco smoking status NHISUnknown if ever smokedDoctors Hospital Work Phone: Start: 21-02-7957Orc Assigned At BirthFeTrinity Health Systemtart: 05-10-2021 End: 11-77-7576Rljldbi smoking statusHeavy tobacco smoker (finding)[facility] Start: 09-10-2023 End: 37-50-1236Xlf Assigned At BirthFemalKettering Health [facility] Start: 49-94-2000Ofwkdmx smoking status NHISSmoker (finding)[facility] Centertart: 08-26-2023 End: 24-72-8397Dfsbicp smoking status NHISSmokes tobacco dailyNOMS Healthcare History of tobacco useCigarette SmokerNOMS HealthcareStart: 24-29-1311Flynjty use and exposureSmokeless tobacco non-userNOMS HealthcareStart: 09-10-2023 End: 63-82-9147Wuccatmgm beverage intakeCurrent drinker of alcohol (finding)[facility] HealthcareStart: 09-10-2023 End: 90-66-5891Zbswvbd of Social functionNOMS HealthcareStart: 84-69-8272Unv assigned at birthNot on fileNOMS HealthcareTobacco smoking statusNeverEast [facility] Digestive HealthStart: 79-01-4873Fnndomp smoking status NHISEx-smoker (finding)[facility] Centertart: 46-56-5651Mpz Female (finding)[facility] Centertart: 51-76-5362Dufznjo CommentOccationallyNOMS HealthcareStart: 26-87-8185YLTN Follow upSDOH Follow up [facility] Work Phone: Medical Equipment Procedure CodeEquipment CodeEquipment Original TextEquipment IdentifierDates Spinal fusion graft [id number] FDAStart: 64-38-6639Erin-screw internal spinal fixation system, non-sterile+[id number] FDAStart: 10-36-6557Ymtg-screw internal spinal fixation system, non-sterile +[id number] FDAStart: 65-31-6242Szzs-screw internal spinal fixation system, non-sterile+[id number] FDAStart: 73-08-7147Dlrm-screw internal spinal fixation system, non-sterile+[id number] FDAStart: 78-54-9031Ztznrhmjd spinal fusion cage, non-sterile()[id number] FDAStart: 11-26-2024 Polymeric spinal fusion cage, non-sterile()[id number] FDA Start: 53-21-2064Ntze-screw internal spinal fixation system, non-sterile +[id number] FDAStart: 11-26-2024 Functional Status FpkcXbugpthsxbSdanfoWcnmlptt65-24-4631Xnizedqnqe StatusN/[facility] Iwyxve11-16-2295Yqbxqmgnnx StatusN/[facility]12-04-2024Functional StatusN/[facility] 75-34-0419Fxdhmhsato StatusN/[facility] 18-26-0527Hharvnwkfp StatusN/[facility] Clinical Notes 01-24-2021 to 11-27-2024 Note Date & ZputSmrtZkluttqv00-91-3823 Hospital Discharge instructionsAmbulatory Orders* Initiate Home Health [...] the prednisoneFirelands [facility] Work Phone: 1(602) 843-411608-20-2025 Evaluation note* Diagnosis Onset Date Resolution Status Admit Date Right foot pain acuteAugust 2024 9:36amAnxietyacuteSeptember 2024 8:50am Hyperlipidemia, unspecifiedacuteSeptember 2024 8:50amHypothyroidacute October 19, 2024 8:50amMedicare annual wellness visit, subsequentacute October 19, 2024 8:50amRight foot painacuteSeptember 2024 8:50am Ulcerative (chronic) pancolitis without complicationsacuteSept2024 8:50amLumbar radiculopathyacuteSeptember 2024 8:45am [facility] Work Phone: 1(370) 449-401608-20-2025 Evaluation note* Diagnosis Onset Date Resolution Status Admit Date Right foot pain acuteAugust 2024 9:36amAnxietyacuteSeptember 2024 8:50am Hyperlipidemia, unspecifiedacuteSept2024 8:50amHypothyroidacute October 19, 2024 8:50amMedicare annual wellness visit, subsequentacute October 19, 2024 8:50amRight foot painacuteSeptember 2024 8:50am Ulcerative (chronic) pancolitis without complicationsacuteSept2024 8:50amLumbar radiculopathyacuteSeptember 2024 8:45amLumbar radiculopathy acuteSeptember 2024 10:58am [facility] Work Phone: 1(304) 707-929208-20-2025 Evaluation note* Diagnosis Onset Date Resolution Status Admit Date Right foot pain acuteAugust 2024 9:36amAnxietyacuteSeptember 2024 8:50am Hyperlipidemia, unspecifiedacuteSeptember 2024 8:50amHypothyroidacute October 19, 2024 8:50amMedicare annual wellness visit, subsequentacute October 19, 2024 8:50amRight foot painacuteSeptember 2024 8:50am Ulcerative (chronic) pancolitis without complicationsacuteSept2024 8:50amLumbar radiculopathyacuteSeptember 2024 8:45amLumbar radiculopathy acuteSeptember 2024 10:58amLumbar radiculopathyacuteOctober 2024 9:29am [facility] Work Phone: 1(926) 977-323808-20-2025 Evaluation note* Diagnosis Onset Date Resolution Status [...] 9:37amLumbar radiculopathyacuteOctober 2024 9:29amLumbar radiculopathyacuteOctober 2024 5:45am [facility] Work Phone: 1(192) 974-839408-20-2025 Evaluation note* Diagnosis Onset Date Resolution Status [...] radiculopathyacuteOctober 2024 5:45amLumbar radiculopathyacuteOctober 2024 12:58pm [facility] Work Phone: 1(343) 666-670107-10-2025 History of Present illness Narrative* DOMINGA Monroy [...] year, seeing Dr. Marino and podiatry in [place] before being diagnosed with a pinched nerve [...] requiring urgent evaluation. Visit was preformed using [employer] pilot speech recognition. documented in this encounterS[facility] [id number] History of Present illness Narrative* DOMINGA Monroy [...] requiring urgent evaluation. Visit was preformed using [employer] pilot speech recognition. documented in this [facility]06-11-2025 Instructions* Patient Instructions* DOMINGA Monroy - 07/22/2024 [...] more than 10 mins documented in this [facility]05-23-2025 Telephone encounter Note* Telephone Encounter - Abhi Ramires NP - 07/03/2024 7:17 AM EDT Post op pain rx. PDMP reviewed [id number] Miscellaneous Notes* Telephone Encounter - Abhi Ramires NP - 07/03/2024 7:17 AM EDT Post op pain rx. PDMP reviewed documented in this encounterSac-[facility] [id number] History of Present illness Narrative* DOMINGA Monroy [...] COLONOSCOPY 01/15/24 KNEE ARTHROSCOPY W/ DEBRIDEMENT Left [place] OTHER SURGICAL HISTORY Right TAMICA CORONA PUT [...] and proposed surgery scheduled. [facility] [place] [facility] PRE AUTH MEDICARE APPROVED Follow up in about 4 weeks (around 07/21/2024) for Post[place]Op July [place]. documented in this encounterSac-Osage [id number] History of Present illness Narrative* Jr. Larissa Guerrero, DO - 05/13/2024 9:00 AM EDT Images from the original note were not included. Jennifer appreciatedHISTORY OF PRESENT ILLNESS: EST PT Alexandra Cervantes is an 74 y.o. @ female. (EST PT) - RECHECK (R) KNEE ; S/P MDP 04/15/24 ; S/P MRI @[facility] 04/24/24 : ADMITS B/L KNEE PAIN - R>L XRAY B/L KNEE 08/26/23 IN EPIC MRI @[facility] 04/24/24 MDP 04/15/24 NO CORTISONE INJ NO PT PAIN MGMT @[facility] (BACK) (R) KNEE: S/P MDP [...] of medial meniscus noted on MRI from [facility]. Questions answered in laymen terms at the bedside. The diagnosis, home exercise plan and any ongoing restrictions/ recommendations reviewed. If unable to be reached in office, I recommend evaluation at nearest Emergency Room if any symptoms worsened or new symptoms develop for requiring urgent evaluation. documented in this encounterSac-Osage [id number] History of Present illness Narrative* Jr. Larissa Guerrero DO - 03/18/2024 10:45 AM EST Images from the original note were not included. HISTORY OF PRESENT ILLNESS: EST PT Alexandra Cervantes is an 74 y.o. @ female. (EST PT) (LAST APPT WITH [facility]) - RECHECK (L) KNEE S/P MRI @[facility] (02/25/24) ; S/P (L) KNEE SCOPE (DR. CURRAN) (10/09/23) (5 MONTHS, 1 WK, 1 DAY) XRAY B/L KNEE 08/26/23 IN EPIC XRAY (L) KNEE (02/09/23) IN CHANGE MRI @[facility] 02/25/24 MDP 12/31/23 (50% IMPROVEMENT) CORTISONE INJ (01/20/24) (70-80% IMPROVEMENT) NO PT PAIN MANAGEMENT @ [facility] (BACK) STATES INJECTION 01/20/24 ONLY LASTED [...] evaluation. documented in this [facility]01-20-2025 Miscellaneous Notes* Telephone Encounter - Tyra Feliz - 03/02/2024 10:12 AM EST Patient called and left vm requesting a call for here MRI results. documented in this [facility]01-20-2025 Telephone encounter Note* Telephone Encounter - Tyra Feliz - 03/02/2024 10:12 AM EST Patient called and left vm requesting a call for here MRI results. [facility] [id number] History of Present illness Narrative* Adali Giordano [...] f/u s/p MRI to be done at [facility] documented in this encounterSac-Osage [id number] Evaluation + Plan note Future Scheduled Tests [...] 03/17/24 * Hepatitis B Surface Antigen 03/17/24 [facility] [id number] History of Present illness Narrative* Adali Giordano [...] and she understands this. documented in this encounterSac-Osage [id number] Hospital Discharge instructions Patient Education 01/15/2024 13:05:31 Gastritis, Adult, Owdu-rv-Jbdv Gastritis, Adult Gastritis is irritation and swelling [...] Follow these instructions at home: Medicines Take wlqk-sbn-dtwydnp and prescription medicines only as told by [...] provider. Document Revised: 06/03/2021 Document Reviewed: 06/03/2021 [facility] Patient Education 2023 [facility] [employer] 01/15/2024 13:05:27 Endoscopy, Care After Procedure [facility] ([facility]) Endoscopy Care After Procedure Please read the instructions outlined below and refer to this sheet in the next few weeks. These discharge instructions provide you with general information on caring for [facility] Your doctor may also give you specific [...] blood. Document Released: 09/11/2004 Document Re-Released: 07/22/2006 [facility] Patient Information [employer] 01/15/2024 13:05:22 Hemorrhoids, Ifqz-iq-Duvk Hemorrhoids Hemorrhoids are swollen veins that may [...] Follow these instructions at home: Medicines Take atzz-jgp-svofxnd and prescription medicines only as told by [...] provider. Document Revised: 10/10/2022 Document Reviewed: 10/10/2022 [facility] Patient Education 2023 [employer] 01/15/2024 13:05:13 Ulcerative Colitis, Adult Ulcerative Colitis, [...] instructions at home: Medicines and vitamins Take wdjl-tsg-pskamah and prescription medicines only as told by [...] and water are not available, use hand electroless plater. Stay up to date on your vaccinations, [...] information about ulcerative colitis at the National [place] of Diabetes and Digestive and Kidney Diseases [...] Document Reviewed: 10/04/2020 [employer] Patient Education 2023 [employer]. 01/15/2024 13:05:09 Colonoscopy, Care After Surgery Salam [...] severe or gets worse throughout the day. [facility] 12-04-2024 Evaluation + Plan noteExtracted from:Title: RAY Post-operative Note---GeneralAuthor:Jose ALARCON, Danielle CanoDate:01/15/24 Plan Transfer/Discharge: Transfer/Discharge Discharge when meets criteria ( To home ). Extracted from:Title:RAY Pre-operative Note uthor:Jose ALARCON, Danielle CanoDate: 01/15/24 Plan [place] [employer] Anesthesiologists (ASA) physical status classification: Class II. Anesthetic Preoperative Plan: Anesthesia General. Extracted from:Title:1Preop H&PAuthor:Martin Tatum MDate:01/15/24 Impression and Plan Impression: Ulcerative colitis, chronic diarrhea Plan: -EGD and Colonoscopy Future Appointments Appointment Date:01/30/2024 01:45:00 PM Scheduled Provider:Martin Tatum MD Location:[facility] Appointment Type:[facility] Follow Up Diagnostic Tests Pending * Enteric Panel by PCR 01/15/24 * Clostridium Difficile PCR 01/15/24 * Hep B Core Ab, Tot 01/15/24 * Hepatitis B Surface Antibody 01/15/24 * Hepatitis B Surface Antigen 01/15/24 * Quantiferon-TB Plus (Client Incubated) 01/15/24 [facility] 11-19-2024 History of Present illness Narrative* [...] develop for requiring urgent evaluation. Abhi Ramires PEDIATRIC NEUROLOGIST-COUNSELOR SUPERVISOR documented in this encounterSac-Osage [id number] History of Present illness Narrative* Adali Giordano [...] do activities as tolerated. documented in this encounterSac-Osage [id number] History of Present illness Narrative* Adali Giordano [...] as tolerated, f/U prn documented in this encounterSac-Osage [id number] History of Present illness Narrative* Larissa Mei [...] for requiring urgent evaluation. documented in this encounterSac-Osage [id number] Telephone encounter Note* Telephone Encounter - Abhi Ramires NP - 10/08/2023 3:02 PM EDT Post op pain rx. PDMP reviewed [facility] [id number] Miscellaneous Notes* Telephone Encounter - Abhi Ramires NP - 10/08/2023 3:02 PM EDT Post op pain rx. PDMP reviewed documented in this encounterSac-Osage HospitalObthomrspp40-06-1457 Evaluation note* Encounter Date Diagnosis Assessment Notes [...] continue to monitor through routine blood work [employer] Other 08-10-2023 Evaluation note* Encounter Date Diagnosis Assessment Notes Treatment Notes Treatment Clinical Notes Sep, Right foot pain (ICD-10 - M79.67 1) [employer] Other 07-25-2023 Evaluation note* Encounter Date Diagnosis [...] (ICD-10 - E03.9)Chronic problem due for labs. 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 [employer] Other 12-08-2022 NoteCONSULTATION PROCEDURE DATE: 01/18/2022 PREOPERATIVE [...] will be followed up in the office.[id number] NoteCONSULTATION CONSULTATION DATE: 01/18/2022 HISTORY OF PRESENT [...] in three months' time, unless otherwise indicated.[facility] [id number] Evaluation + Plan note Diagnostic Tests Pending * CBC w/ Auto Diff 11/08/21 * Comprehensive Metabolic Panel 11/08/21 [facility] 09-08-2022 NoteCONSULTATION PROCEDURE [...] will be followed up in the office.[facility] 10-19-2021 NoteCONSULTATION CONSULTATION DATE: 10/19/2021 This [...] in three months' time unless otherwise indicated.[facility] [id number] NoteCONSULTATION CONSULTATION DATE: 09/06/2021 HISTORY OF PRESENT [...] 8/10. She has been following up with [facility] and had a benign fibroid tumor [...] procedure, and patient agrees to move forward.[facility] [id number] NoteCONSULTATION PAIN MANAGEMENT CONSULTATION HISTORY: This is [...] and Approved by: ROBERTO MCNALLY . 04/27/2021 12:41:00[facility]12-14-2021 Hospital Discharge instructions Follow Up Care 01/24/2021 10:04:31 With:JANINA ALARCON, LENORE Farooq, [facility] Address: [facility] [address] [place] [address]- When:6 months [facility] Evaluation + Plan note Future Appointments Appointment Date:11/08/2021 10:15:00 AM Scheduled Provider:Capri FULLER MD Location:[facility] Appointment Type:[facility] Follow Up Future Scheduled Tests Laboratory* CBC w/ Indices 07/25/20 * Comprehensive Metabolic Panel 07/25/20 [facility] Evaluation + Plan note Future Appointments Appointment Date:01/15/2024 12:00:00 PM Scheduled Provider: Location:[facility] Appointment Type:Surgery FT Appointment Date:01/30/2024 01:45:00 PM Scheduled Provider:Martin Tatum MD Location:[facility] Appointment Type:[facility] Follow Up Future Scheduled Tests Laboratory* O & P Exam, Routine 12/04/23 * Clostridium Difficile PCR 12/04/23 * Enteric Panel by PCR 12/04/23 [facility] Evaluation + Plan note Future Appointments Appointment Date:01/15/2024 12:00:00 PM Scheduled Provider: Location:[facility] Appointment Type:Surgery FT Appointment Date:01/30/2024 01:45:00 PM Scheduled Provider:Martin Tatum MD Location:[facility] Appointment Type:[facility] Follow Up Diagnostic Tests Pending * Celiac Disease Comprehensive 12/04/23 Future Scheduled Tests Laboratory* O & P Exam, Routine 12/04/23 * Clostridium Difficile PCR 12/04/23 * Enteric Panel by PCR 12/04/23 [facility] evaluation + Plan note Future Appointments Appointment Date:01/15/2024 12:00:00 PM Scheduled Provider: Location:[facility] Appointment Type:Surgery FT Appointment Date:01/30/2024 01:45:00 PM Scheduled Provider:Martin Tatum MD Location:[facility] Appointment Type:BAD Follow Up Diagnostic Tests Pending * O & P Exam, Routine 12/06/23 [facility] evaluation + Plan note Future Appointments Appointment Date:04/29/2024 09:15:00 AM Scheduled Provider:Martin Tatum MD Location:[facility] Appointment Type:BAD Follow Up Future Scheduled Tests Laboratory* Calprotectin, Fecal 01/30/24 [facility] evaluyoeeu noteNo assessment information available [facility] Work Phone: evalungqgj note* Diagnosis Arthritis of left knee- Primary [...] of left knee documented in this encounter [facility] HealthcareEvaluation note* Diagnosis Acute pain of left knee- Primary Acute pain of right knee Acute medial meniscus tear of right knee, initial encounter documented in this encounter [facility] HealthcareEvaluation note* Diagnosis Onset Date Resolution Status Admit Date Anxiety acuteMarch 2024 8:49amUlcerative (chronic) pancolitis without complicationsacuteMarch 2024 8:49am [facility] Work Phone: Evaluation note* Diagnosis Acute pain of right knee- Primary Acute medial meniscus tear of right knee, initial encounter documented in this encounter [facility] HealthcareEvaluation note* Diagnosis Pre-op examination- Primary documented in this encounter [facility] HealthcareEvaluation note* Diagnosis Pre-op examination- Primary Localized osteoarthritis of right knee documented in this encounter [facility] HealthcareEvaluation note* Diagnosis Acute medial meniscus tear of right knee, initial encounter- Primary documented in this encounter [facility] HealthcareEvaluation note* Diagnosis S/P right knee arthroscopy- Primary documented in this encounter [facility] HealthcareEvaluation note* Diagnosis S/P right knee arthroscopy- Primary documented in this encounter [facility] HealthcareEvaluation note* Diagnosis Onset Date Resolution Status Admit Date Right foot pain acuteAugust 2024 9:36am [facility] Work Phone: History general Narrative - Reported* Type Description Date Medical History GERD Medical HistoryHypothyroidMedical HistoryDepressionSurgical HistoryAppendectomy Surgical HistoryTubal LigationSurgical HistoryRight carpal tunnelSurgical HistoryRight fingerSurgical HistoryTumor removal right thyroid04/2021 Hospitalization HistorySee past surgical hx [employer] Other Hospital course Narrative No data available for this section [facility] Hospital Discharge instructions No data available for this section [facility] Hospital Discharge instructionsAmbulatory Orders* Referral to Neurology Time Frame: 09/30/24, Location: None Selected [facility] Work Phone: Progress note No data available for this section [facility] Reason for referral (narrative)No reason for referral information availableSamaritan North Health Center Work Phone: Reason for visit Narrative* Consultation (Routine) - AuthorizedSpecialtyDiagnoses / ProceduresReferred By ContactReferred To ContactPhysical Therapy Diagnoses Pre-op examination Procedures NM OFFICE/OUTPATIENT [facility] 60 MINUTES Dolly Veras PA [address] [facility] [address] [place] [address] Phone: tel: fax: Sofia Bull PT Referral IDStatusReasonStart DateExpiration DateVisits RequestedVisits [id number] Consult and Treat [facility] Healthcare Chief Complaint and Reason for Visit [...] 19, 2024 8:50am Medicare annual [facility] October 19, 2024 8:50am Right foot [...] 19, 2024 8:50am [facility] October 19, 2024 8:50am Right foot [...] foot pain (M79 .671) Referral Organization [facility] [place] Referring Provider First Name Laurita Referring Provider Last Name Carmen Referring Provider Specialty Family [facility] Referred Organization [facility] Referred Provider AlexSeymour Referred Address [address] [place],[address] Referred Provider Specialty Podiatry - S urgical [...] DateEnd Date Laurita Morales MD [address] [place] [address] [facility] - [facility] Medicine08/26/23Team MemberRelationshipSpecialtyStart DateEnd Date Laurita Morales MD [address] [place] [address] [facility] - [facility] Medicine08/26/23Team MemberRelationshipSpecialtyStart DateEnd Date Laurita Morales MD [address] [place] [address] [facility] - [facility] Medicine08/26/23Team MemberRelationshipSpecialtyStart DateEnd Date Laurita Morales MD [address] [place] [address] PCP - GeneralFamily Medicine08/26/23Team MemberRelationshipSpecialtyStart DateEnd Date Laurita Morales MD [address] [facility] [place] [address] PCP - GeneralFamily Medicine08/26/23Team MemberRelationshipSpecialtyStart DateEnd Date Laurita Morales MD [address] [facility] [place] [address] PCP - GeneralFamily Medicine08/26/23Team MemberRelationshipSpecialtyStart DateEnd Date Laurita Morales MD [address] [facility] [place] [address] PCP - GeneralFamily Medicine08/26/23Team MemberRelationshipSpecialtyStart DateEnd Date Laurita Morales MD [address] [facility] [place] [address] PCP - GeneralFamily Medicine08/26/23Team MemberRelationshipSpecialtyStart DateEnd Date Laurita Morales MD [address] [facility] [place] [address] PCP - GeneralFamily Medicine08/26/23Team MemberRelationshipSpecialtyStart DateEnd Date Laurita Morales MD [address] [facility] [place] [address] PCP - GeneralFamily Medicine08/26/23Team MemberRelationshipSpecialtyStart DateEnd Date Laurita Morales MD [address] [facility] [place] [address] PCP - GeneralFamily Medicine08/26/23Team MemberRelationshipSpecialtyStart DateEnd Date Laurita Morales MD [address] [facility] [place] [address] PCP - GeneralFamily Medicine08/26/23 Team Status: Inactive Member Role Status Dates Laurita Morales MD Primary Care Provide r, Attending Provider Active Start: April 21, 2024 End: April 21, 2024Team MemberRelationshipSpecialtyStart DateEnd Date Laurita Morales MD [address] [place] [facility] [place] [address] PCP - GeneralFamily Medicine08/26/23Team MemberRelationshipSpecialtyStart DateEnd Date Laurita Morales MD [address] [facility] [place] [address] PCP - GeneralFamily Medicine08/26/23Team MemberRelationshipSpecialtyStart DateEnd Date [...] DateEnd Date Laurita Morales MD [address] [facility] [place] [address] PCP - GeneralFamily Medicine07/16/24Team MemberRelationshipSpecialtyStart DateEnd Date Laurita Morales MD [address] [facility] [place] [address] [facility] - [facility] Medicine07/16/24Team MemberRelationshipSpecialtyStart DateEnd Date Laurita Morales MD [address] [facility] [place] [address] PCP - Generalmi Medicine07/16/24 Team Status: Inactive [...] Care Provider Active Start: October 20, 2024 Laruita Morales MDAttending ProviderActiveStart: October 20, 2024 Team [...] Care Provider Active Start: November 30, 2024 Aym Victoria CMAAttending ProviderActiveStart: November 30, 2024 Team [...] section and content) DATE CREATED AUTHOR 05/23/2021 [facility] DATE CREATED AUTHOR AUTHOR'S ORGANIZ ATION 01/23/2022 [facility] DATE CREATED AUTHOR AUTHOR'S ORGANIZ ATION 12/03/2023 [facility] DATE CREATED AUTHOR AUTHOR'S ORGANIZ ATION 12/08/2023 [facility] DATE CREATED AUTHOR AUTHOR'S ORGANIZ ATION 12/10/2023 [facility] DATE CREATED AUTHOR AUTHOR'S ORGANIZ ATION 12/12/2023 [facility] DATE CREATED AUTHOR AUTHOR'S ORGANIZ ATION 01/23/2024 [facility] DATE CREATED AUTHOR AUTHOR'S ORGANIZ ATION 01/25/2024 [facility] DATE CREATED AUTHOR AUTHOR'S ORGANIZ ATION 02/03/2024 [facility] DATE CREATED AUTHOR AUTHOR'S ORGANIZ ATION 08/24/2024 [facility] DATE CREATED AUTHOR AUTHOR'S ORGANIZ ATION 08/28/2024 [facility] DATE CREATED AUTHOR AUTHOR'S ORGANIZ ATION 12/16/2024 [facility] DATE CREATED AUTHOR AUTHOR'S ORGANIZ ATION 12/22/2024 [facility] REASON FOR VISIT (unrecogniz ed section and content) BgigutZrmvusncMirpyp-qfEcatemFfydqophMqmtRmoebaYsqkockaXmajvq-zcIphvipBzelz Date FiphcpjzLHZ81/20/2025ReasonCommentsPre-op ExamReasonCommentsPost-op FOR RECORDS PERTAINING TO PATIENTS WHO [...] BE BASED ON THE PRIMARY CLINICAL RECORDS. [facility] [employer] [facility]. provides no warranty or guarantee of the accuracy or completeness of information in this document.
--- OUTSIDE RECORDS SUMMARY | 2024-12-23 13:40 | XMS_ITS | Clinical Summary ---
Author Organization [facility] Address [address] [place] [address] Care Team Providers Care Appliquer Zigzag Name Role Phone Danyell Kelly MD Primary Care Provider [phone] Allergies Active AllergyReactionsCriticalityNoted AkcgIwhefymaHwcoxbiziis01/15/2024 Bad dreams Medications MedicationSigDispense QuantityRefillsLast FilledStart DateEnd DateStatus ALPRAZolam (Xanax) 0.5 MG tablet Take 0.5 mg by mouth as needed at mqbxhfe2106/27/2023ctive escitalopram (Lexapro) 20 MG tablet Take 20 [...] TAKE TWO CAPSULES BY MOUTH DAILY AT UXOVKCH6410/25/2023ctive simvastatin (Zocor) 40 MG tablet Take 40 mg by mouth at jxitqgi2610/24/2023ctive mesalamine (Lialda) 1.2 g EC tablet 01/31/2024ctive busPIRone (Buspar) 15 MG tablet Take 15 mg by mouth in the morning and 15 mg before bedtime.5Active Misc. Devices misc Indications:Pre-op examinationDispense: Front Wheeled walker use 90 days. Ht: 4'11 Weight: 159lb 1 Units 06/23/2024tive Active Problems ProblemNoted DateDiagnosed QmibYspgwgg84/24/2024hronic ulcerative pancolitis 09/04/2023Hyperlipidemia, kxfzcxuxrhs96/24/2246Gzbjcfflogf08/24/2024Obstructive sleep apnea09/04/2023Status post total maoxndaarrqsl83/24/2024 Immunizations ImmunizationAdministration DatesNext DueABRYSVO - Respiratory syncytial virus (RSV), vaccine, bivalent, protein subunit RSV prefusion F, diluent reconstituted, 0.5 mL, PF12/03/2022Hep B, adult01/29/2003,08/10/2002,07/08/2002 Influenza, High Dose Seasonal, Preservative Free10/24/2016Influenza, Seasonal, Quadrivalent, Srnatbxowb44/27/2023Influenza, Oqekijqfrwn76/05/2021,11/20/2019 Influenza, seasonal, esooufyijo55/01/2013Influenza, seasonal, injectable, preservative free11/16/2014Influenza, trivalent, jwtlahjdsd66/11/2022,11/14/2017 ,11/08/2015Pneumococcal Conjugate PCV 13010/24/2016Pneumococcal Polysaccharide CXXV4637,11/14/2017,11/30/20134530KQOS-ZUG-6 (COVID-19) vaccine, mRNA, spike protein, LNP, PF, 50 mcg/0.5 mL12/03/2022Td (adult), 5 Lf tetanus toxoid, preservative free, pnduerjj48/21/2015Td (adult), gzhuutwvsua75/28/2003Zoster, Fwqfffhpulm31/21/2023,07/18/2022Zoster, live07/09/2018,03/24/2013 Family History Medical HistoryRelationNameCommentsDiabetesFatherStrokeFatherRelationNameStatus CommentsFatherDeceasedMotherDeceased Social History Tobacco UseTypesPacks/DayYears UsedDateSmoking Tobacco: Every DayCigarettes Smokeless Tobacco: Never Tobacco Cessation:Ready to Q uit: Not Asked; Counseling Given: Not Answered Alcohol UseStandard Drinks/WeekCommentsYes0 (1 standard drink = 0.6 oz pure alcohol)OccationallyCommentsUnknownSex and Gender InformationValueDate RecordedSex Assigned at BirthNot on fileLegal OutKilhsj57/15/2023 7:27 PM EDT Gender IdentityNot on fileSexual OrientationNot on file Last Filed Vital Signs Vital SignReadingTime TakenCommentsBlood Tftavvvw080/70007/09/2018 12:00 PM EDT Pulse--Temperature--Respiratory Rate--Oxygen Saturation--Inhaled Oxygen Concentration--Piqrxt19.1 kg (159 lb)06/23/2024 1:30 PM WWVWqfukj124.9 cm (4' 11 )06/23/2024 1:30 PM EDTBody Mass Index32.11006/23/2024 1:30 PM EDT Plan of Treatment Health MaintenanceDue DateLast DoneCommentsCOVID-19 Vaccine ( season) 5010/27/2021, 12/09/2020, 04/26/2020, Additional history existsInfluenza Vaccine (#1), 11/07/2022, 11/21/2021, Additional history existsPneumococcal Vaccine: 65+ MogzaWyxysltlz73/10/2018, 11/14/2017, 10/24/2016, Additional history vrlnwtGvxjojeneaaRxjdklxmcbsl43/04/2024, 02/16/2020olorectal Cancer ScreeningDiscontinuedCT ColonographyDiscontinued FIT-DNADiscontinuedFITDiscontinuedFOBTDiscontinuedSigmoidoscopyDiscontinued Insurance Care Teams Team MemberRelationshipSpecialtyStart [place] [address] [place] [phone] PCP - GeneralFamily Medicine07/16/24
--- NOTE | 2024-12-23 13:50 | SWNOTE1 ---
SW met with pt to discuss dc needs. SW to also find out if pt had a 3 day stay at another hospital prior to coming here. Pt may need placement for therapy. Pt's PCP is a [facility] doctor and not [facility] so can not use the SNF 3 day waiver. Unsure if pt would qualify for acute rehab. Pt was laying in bed when SW arrived. Pt lives at home by herself. She has friends that are like family that can assist as needed. Pt stated she was at [facility] back in November, she thinks November 26 through that Saturday which was the . She had lumbar surgery. She voiced she was doing well at home for awhile but recently having a harder time. When she left [facility] she thought she would be fine. No rehab was offered, no home health set up. She stated last night and this morning she was walking alright. She has been using a walker recently as well. SW did speak with pt about rehab for a short time due to her having a harder time getting around. Pt is in agreement. SW explained the difference between SNF and acute rehab. Pt unsure about the amount of therapy at acute rehab and if she could withstand. SW explained to pt that SW has to look in to her stay at [facility] and see if she had a 3 day inpt stay. Pt voiced she does think it was [address] Jackson came in to assess pt, SW updated Dr. Jackson. SW spoke to case management about the 3 day stay at [facility] and pt needing skilled. SW was able to get on [employer] and see she was at [facility] from 11/26-11/29, but unsure if she was inpt. For continuation of care, case management was able to reach out to case management at [facility] and confirm it was a 3 day inpt stay. CM updated Dr. Jackson. SW spoke to pt about rehab facilities. Pt lives in [place] and would like to stay in [place]. SW let her know that there is [facility] and the [facility]. Pt would like the [facility] and knows people who have been there. SW called the [facility] and spoke to SARA Burnham. SW updated her about the pt and she stated to send over the referral to review. Referral sent to Samantha.. Referral included face sheet, ED note, case management report, nursing notes, diagnostic imaging, and med list.
--- OUTSIDE RECORDS SUMMARY | 2024-12-23 13:55 | XMS_ITS | CCD ---
Author Organization [facility] Care Team Providers Care Manager Exchange Name Role Phone MD Cy Sears Attending [...] Unavailable SALAM, CAPRI Attending Unavailable MORALES, DR LUARITA Solis Primary Care Unavailable MORALES, DR LAURITA [...] Unavailable MORALES, DR LAURITA Solis Attending Unavailable PALMYRA, DR LONNY Wiggins Consulting Unavailable MORALES, DR [...] Unavailable Laurita Morales MD Primary Care Provider [phone] Nasim Segal DO Attending Provider [phone] Laurita Morales MD Attending Provider [phone] Sin Bernard DO Attending Provider Nasim Segal DO Admit Provider Nasim Segal DO Other Provider Amy Victoria CMA Attending Provider UnavailCory Schultz MD Attending Provider [phone] Martin Tatum Attending UnavailLaurita Schultz Primary Care Unavailable Nasim Segal Attending Unavailable Nasim Segal Admitting Unavailable Nasim Segal Admitting Unavailable Laurita Morales Primary Care Unavailable Nasim Segal Attending Unavailable Allergies Allergy ClassificationReported Allergen(s)Allergy TypeDate of OnsetReaction(s) Facility (20 sources)varenicline; Translations: [varenicline]Drug [id number] UnknownNOCT HealthcareComment on above:Outside Source Comment: Other Reaction(s): Unknown Medications Current Medications MedicationDrug Class(es)DatesSig (Normalized)Sig (Original)acetaminophen 325 mg / HYDROcodone bitartrate 5 mg oral tablet (2 sources)Opioid AgonistStart: 07-06-2024 End: 49-14-5252qtbe 1 tablet by mouth every six hours for painHYDROcodone- acetaminophen ([place]) 5-325 MG tablet Indications: Acute medial meniscus tear of right knee, initial encounter Take 1 tablet by mouth every 6 (six) hours if needed for severe pain for up to 3 days 12 tablet 07/06/2024 07/09/2024 Active Start: 10-08-2023 End: 67-47-7889ollu 1 tablet by mouth every six hours for painHYDROcodone- acetaminophen ([place]) 5-325 MG tablet Indications: Post-op pain Take 1 tablet by mouth every 6 (six) hours if needed for severe pain for up to 3 days 12 tablet 10/08/2023 10/11/2023 ActiveAlive Women's 50+ Complete Multivitamin (6 sources)Start: 22-69-2969Pgizc Women's 50+ Complete Multivitamin Oral, Daily, Refill(s) 0, Prophylaxis Start Date: 12/04/23 Status: OrderedStart: 12-04-2023 Alive Women's 50+ Complete Multivitamin Oral, Daily, Refill(s) 0 Start Date: 12/04/23 Status: OrderedAllergy Medication (5 sources)Start: 72-13-4106mhth 1 tablet by mouth once daily as neededAllergy Medication Active 1 TAB PO Daily as needed for allergic symptoms November 12, 2024 12:00am On Hold: Resume on 12/03/24. pt. unsure of what allergy med she takes Complies with drug therapyStart: 95-12-9028tuwe 1 tablet by mouth once daily as neededAllergy Medication Active 1 TAB PO Daily as needed for allergic symptoms November 12, 2024 12:00am pt. unsure of what allergy med she takes Complies with drug therapyStart: 71-99-6368zfhb 1 tablet by mouth once daily as neededAscorbic Acid / Beta Carotene / cuprous oxide / Lutein / sodium selenate / Vitamin E / Zinc Oxide (6 sources)Vitamin CStart: 92-48-1197Kebnjnk Adult 50+ Refill(s) 0, Prophylaxis Start Date: 12/04/23 Status: OrderedStart: 29-32-6673Nslomxk Adult 50+ Refill(s) 0 Start Date: 12/04/23 Status: OrderedbusPIRone hydrochloride 15 mg oral tablet (20 sources)Start: 64-82-6076oxel 1 tablet by mouth twice dailyBuspirone 15 mg tablet Active 15 MG PO Twice daily November 12, 2024 12:00am Complies with drug therapyStart: 77-81-8841srwf 1 tablet by mouth in the morningbusPIRone (Buspar) 15 MG tablet Take 15 mg by mouth in the morning and 15 mg before bedtime. 02/19/2024 ActiveStart: 02-18-2024 End: 02-19-4437cfis 1 tablet by mouth twice dailyBuspirone 15 mg tablet Discontinued 0 .ROUTE .COMPLEX 60 2 August 19, 2024 12:34pm November 12, 2024 10:46am TAKE ONE TABLET BY MOUTH TWICE A DAYStart: 01-20-2024 End: 39-46-0005yuih 1 tablet by mouth twice dailyBuspirone 15 mg tablet Discontinued 15 MG PO Twice daily 60 0 January 20, 2024 1:00am February 18, 2024 9:46amcalcium citrate 950 mg oral tablet (8 sources)Start: 10-10-2476bvkl 1 mg by mouth twice dailycalcium (as calcium citrate) 200 mg oral tablet mg tab(s), Oral, BID, Refills(s) 0, Prophylaxis Star t Date: 01/28/20 Status: Orderedcephalexin 500 mg oral capsule (2 sources)Cephalosporin AntibacterialStart: 82-54-0654emrf 1 capsule by mouth three times dailyCephalexin 500 mg capsule Active 500 MG PO Three times daily 15 0 November 27, 2024 12:00am Complies with drug therapycyclobenzaprine hydrochloride 10 mg oral tablet (3 sources)Muscle RelaxantStart: 11-27-2024 End: 41-91-3388pnkt 1 tablet by mouth three times daily as needed for muscle spasmsCyclobenzaprine 10 mg tablet Active 10 MG PO Three times daily as needed for back spasms 50 0 December 10, 2024 1:11pm Complies with drug therapy escitalopram 20 mg oral tablet (20 sources)Serotonin Reuptake InhibitorStart: 08-58-1592euiw 1 tablet by mouth once daily in the morningEscitalopram Oxalate 20 mg tablet Active 20 MG PO Every morning November 12, 2024 12:00am Complies with drug therapyStart: 01-22-2024 End: 58-30-3148kidq 1 tablet by mouth once dailyEscitalopram Oxalate 20 mg tablet Discontinued 0 .ROUTE .COMPLEX 30 January 22, 2024 9:32am November 12, 2024 10:46am TAKE ONE TABLET BY MOUTH DAILY 30Start: 05-26-2021 End: 37-04-6560azlf 1 tablet by mouth once daily in the morningEscitalopram Oxalate 20 mg tablet Discontinued 20 MG PO Every morning May 26, 2021 12:00am January 22, 2024 9:32amStart: 61-20-6689phqndhbhtcft Oral, Daily, Refills(s) 0 Start Date: 01/28/20 Status: Ordered End: 95-99-1853cgou 1 tablet by mouth once dailyescitalopram (Lexapro) 10 MG tablet Take 10 mg by mouth Daily 06/23/2024 Discontinued (Therapy completed)Eye Vitamin (10 sources)Start: 08-60-9897xpmr 1 tablet by mouth once dailyEye Vitamin Active 1 TAB PO Daily May 26, 2021 2:53pmStart: 75-18-0663iydd 1 tablet by mouth once daily in the morningEye Vitamin Active 1 TAB PO Every morning May 26, 2021 12:00am Complies with drug therapyStart: 67-24-1736zjwg 1 tablet by mouth once daily in the morningStart: 18-14-1342ldah 1 tablet by mouth once daily Start: 08-30-6812yypn 1 tablet by mouth once dailyEye Vitamin Active 1 TAB PO Daily May 26, 2021 12:00am Complies with drug therapyStart: 09-14-0592lycr 1 tablet by mouth once dailyEye Vitamin Active 1 TAB PO Daily May 26, 2021 12:00amfolic acid 1 mg oral tablet (2 sources)Start: 81-35-6479arca 1 tablet by mouth once dailyFolate 1 mg Tab 1 mg = 1 tab(s), Oral, Daily, # 30 tab(s), Refills(s) 0, Pharmacy: [facility], 150, cm, 07/25/20 14:29:00 EDT, Height/Length Dosing, 69.9, kg, 07/25/20 14:29:00 EDT, Weight Dosing Start Date: 07/25/20 Status: OrderedGlucoamine (10 sources)Start: 89-00-0651orol 1 mg by mouth twice dailyGlucoamine Active MG PO Twice daily May 26, 2021 2:53pmStart: 05-26-2021 End: 17-54-6303hvzv 1 mg by mouth twice dailyGlucoamine Discontinued MG PO Twice daily May 26, 2021 12:00am November 12, 2024 10:38amStart: 43-11-6607jlek 1 mg by mouth twice dailyStart: 43-81-7814uksp 1 mg by mouth twice daily Glucoamine Active MG PO Twice daily May 26, 2021 12:00am Complies with drug therapyStart: 44-68-6888lqck 1 mg by mouth twice dailyGlucoamine Active MG PO Twice daily May 26, 2021 12:00amGlucosamine (13 sources)Start: 13-48-0484khwa 1 capsule by mouth once daily in the morning Glucosamine Active 1 CAP PO Every morning November 12, 2024 12:00am Complies with drug therapyStart: 55-81-5570akaa 1 capsule by mouth once daily in the morningStart: 27-45-7070lrlv 1 tablet by mouth three times dailyglucosamine 500 mg oral tablet 500 mg = 1 tab(s), Oral, TID, # 90 tab(s), Refills(s) 0 Start Date: 01/28/20 Status: Orderedibuprofen 200 mg oral capsule (20 sources)Nonsteroidal Anti-inflammatory DrugStart: 49-56-7966xoft 1 mg by mouth every six hoursibuprofen 200 mg oral capsule mg cap(s), Oral, q6hr, Refills(s) 0 Start Date: 12/04/23 Status: Orderedibuprofen (Advil) 200 MG tablet every 8 (eight) hours Activelevothyroxine sodium 0.075 mg oral tablet (20 sources)l-ThyroxineStart: 28-41-5678ropd 1 tablet by mouth once daily in the morningLevothyroxine 75 mcg tablet Active 75 MCG PO Every morning November 12, 2024 12:00am Complies with drug therapyStart: 44-45-3152jrob 1 tablet by mouth once dailyLevothyroxine 75 mcg tablet Active 0 .ROUTE .COMPLEX February 20, 2024 9:23am TAKE ONE TABLET BYMOUTH ONCE DAILYStart: 09-27-2023 End: 27-47-3180cdap 1 tablet by mouth once dailyLevothyroxine 75 mcg tablet Discontinued 0 .ROUTE .COMPLEX 10 07August 19, 2024 12:34pm November 10:46am TAKE ONE TABLET BY MOUTH ONCE DAILYStart: 05-26-2021 End: 64-69-6656kwsy 1 tablet by mouth once daily in the morningLevothyroxine 75 mcg tablet Discontinued 75 MCG PO Every morning May 26, 2021 12:00am September 27, 2023 7:50amStart: 67-70-8507bjmjckzuylunz Daily, Refills(s) 0, Thyroid Start Date: 01/28/20 Status: OrderedStart: 27-70-3526xqcqmycehqzdg Daily, Refills(s) 0 Start Date: 01/28/20 Status: Orderedtake 1 tablet by mouth once dailyLevothyroxine Sodium 75 MCG TAKE ONE TABLET BY MOUTH ONCE DAILY for 30 ActiveMagnesium (10 sources)Start: 04-62-1464yocc 400 mg by mouth once dailyMagnesium Active 400 MG PO Daily May 26, 2021 2:53pmStart: 05-26-2021 End: 51-95-6862aaii 2 tablets by mouth once dailyMagnesium 200 mg Tablet Discontinued 400 MG PO Daily May 26, 2021 12:00am July 03, 2023 9:06am mesalamine 1200 mg delayed release oral tablet (20 sources)AminosalicylateStart: 81-08-8984qwzocoqwnl ([place]) 1.2 g EC tablet 01/31/2024 ActiveStart: 88-85-0925beup 4 tablets by mouth once dailymesalamine ([place]) 1.2 g EC tablet TAKE FOUR TABLETS BY MOUTH DAILY 01/31/2024 Active methocarbamol 750 mg oral tablet (1 source)Muscle RelaxantMethocarbamol 750 MG Orally Four times a day Active Misc. Devices misc (12 sources)Start: 89-68-4259Bowt. Devices misc Indications: Pre-op examination Dispense: Front Wheeled walker use 90 days. Ht: 4'11 Weight: 159lb 1 Units 06/23/2024 ActiveMultivitamin (Multi-Day) Tablet (1 source)Start: 44-23-7960lhha 1 tablet by mouth once dailyMultivitamin (Multi- Day) Tablet Active 1 TAB PO Daily May 26, 2021 2:53pmMultivitamin Tablet (9 sources)Start: 16-18-0771lauc 1 tablet by mouth once daily in the evening Multivitamin Tablet Active 1 TAB PO Every evening May 26, 2021 12:00am Complies with drug therapyStart: 34-66-5633flty 1 tablet by mouth once daily in the eveningStart: 46-39-1669cmwn 1 tablet by mouth once dailyStart: 05-26-2021 take 1 tablet by mouth once dailyMultivitamin Tablet Active 1 TAB PO Daily May 26, 2021 12:00am Complies with drug therapyStart: 68-88-4641xpvt 1 tablet by mouth once dailyMultivitamin Tablet Active 1 TAB PO Daily May 26, 2021 12:00amAleve (1 source)Nonsteroidal Anti-inflammatory DrugStart: 01-35-7396vtvg 1 mg by mouth every twelve hoursAleve mg, Oral, q12hr, Refills(s) 0 Start Date: 03/20/24 Status: OrderedNuLYTELY Eola oral powder for reconstitution (1 source)Start: 45-50-5713wcud 1 dose by mouth onceNuLYTELY [place]ola oral powder for reconstitution See Instructions, 1 EA, Refill(s) 0, PER PHYS INSRTUCTIONS, [facility], 150, cm, 01/28/20 10:49:00 EST, Height/Length Dosing, 69.9, kg, 01/28/20 10:49:00 EST, Weight Dosing Start Date: 01/28/20 Status: OrderedoxyCODONE hydrochloride 5 mg oral tablet (3 sources)Opioid AgonistStart: 36-68-3752jnsw 1 tablet by mouth every four to six hours as needed for painOxycodone 5 mg tablet Active 5 MG PO EVERY 4-6 HOURS as needed for pain 40 7 0 December 10, 2024 Lumbar radiculopathy Radiculopathy, lumbar region Complies with drug therapyStart: 11-27-2024 End: 88-61-7309vofb 1 tablet by mouth every four to six hours as needed for pain Oxycodone 5 mg tablet Discontinued 5 MG PO EVERY 4-6 HOURS as needed for pain 40 7 0 November 27, 2024 December 10, 2024 1:11pm Lumbar radiculopathy Radiculopathy, lumbar regionpolyethylene glycol 3350 559511 mg / potassium chloride 1480 mg / sodium bicarbonate 5720 mg / sodium chloride 54458 mg powder for oral solution (1 source)Osmotic LaxativeStart: 38-74-6975ecxg 1 dose by mouth onceNuLYTELY Eola oral powder for reconstitution See Instructions, 1 EA, Refill(s) 0, PER PHYS INSRTUCTIONS, [facility], 150, cm, 01/28/20 10:49:00 EST, Height/Length Dosing, 69.9, kg, 01/28/20 10:49:00 EST, Weight Dosing Start Date: 01/28/20 Status: OrderedpredniSONE 10 mg oral tablet (20 sources)Start: 89-89-9077Hdqbsuwozi 10 mg tablets,dose pack Active 10 MG PO per package directions November 27, 2024 12:00am take 4 tabs for 3 days then take 3 tabs for 3 days then take 2 tabs for 3 days then take 1 tab for 3 days Complies with drug therapyStart: 01-16-2024 End: 94-38-2357pvhzfkOCSA (Deltasone) 5 MG tablet START WITH 40MG (8 TABS) BY MOUTH FOR 7 DAYS, THEN DECREASE BY 5MG (1 TAB) EVERY 7 DAYS UNTIL FINISHED 01/16/2024 06/23/2024 Discontinued (Therapy completed)Start: 01-16-2024 predniSONE 5 mg Tab See Instructions, Start with 40mg x1 week and decrease by 5mg every week until finished, # 252 tab(s), Refills(s) 0, Pharmacy: [place] [id number], 69, kg, 01/15/24 9:14:00 EST, Weight Dosing Start Date: 01/16/24 Status: Orderedsimvastatin 40 mg oral tablet (20 sources)HMG-CoA Reductase InhibitorStart: 26-97-8816jupz 1 tablet by mouth once daily in the eveningSimvastatin 40 mg tablet Active 40 MG PO Every evening November 12, 2024 12:00am Complies with drugtherapyStart: 12-26-2023 End: 15-82-7927xqdm 1 tablet by mouth once daily at bedtimeSimvastatin 40 mg tablet Discontinued 0 .ROUTE .COMPLEX 30 December 26, 2023 2:15pm November 12, 2024 10:46am TAKE ONE TABLET BY MOUTH ONCE DAILY AT BEDTIMEStart: 05-26-2021 End: 58-74-3312xygi 1 tablet by mouth once daily at bedtimeSimvastatin 40 mg Tablet Discontinued 40 MG PO Daily at bedtime May 26, 2021 12:00am December 26, 2023 2:15pmStart: 31-84-8393eobruunzsth Oral, Refills(s) 0, High cholesterol Start Date: 01/28/20 Status: OrderedsulfaSALAzine 500 mg oral tablet (20 sources)AminosalicylateStart: 71-37-4865arie 1 tablet by mouth three times dailySulfasalazine 500 mg tablet Active 1000 MG PO Three times daily November 12, 2024 12:00am On Hold: Resume on 12/10/24. Complies with drug therapyStart: 03-20-2024 End: 73-01-1973cukc 2 tablets by mouth three times dailysulfasalazine 500 mg Tab 1,000 mg = 2 tab(s), Oral, TID, X 90 day(s), # 540 tab(s), Refills(s) 3, Ph armacy: [facility], 150, cm, 03/20/24 11:03:00 EST, Height/Length Dosing, 74.6, kg, 03/20/24 11:03:00 EST, Weight Dosing Start Date: 03/20/24 Stop Date: 03/15/25 Status: OrderedStart: 05-26-2021 End: 55-82-3761bvdj 1 tablet by mouth four times dailySulfasalazine 500 mg tablet Discontinued 500 MG PO Four times daily May 26, 2021 12:00am June, 2023 9:07amStart: 04-98-5726vcdc 2 tablets by mouth three times daily sulfasalazine 500 mg Tab 1,000 mg = 2 tab(s), Oral, TID, # 180 tab(s), Refills(s) 11, Pharmacy: [facility]/pharmacy #[id number], 150, cm, 05/10/21 11:13:00 EDT, Height/Length Dosing, 71, kg, 05/10/21 11:13:00 EDT, Weight Dosing Start Date: 05/10/21 Status: Orderedtake 1 tablet by mouth once dailysulfaSALAzine (Azulfidine) 500 MG tablet Take 500 mg by mouth 1 (one) time each day at the same time ActiveVitamin D And Calcium (10 sources)Start: 22-57-0684Rkvjlsn D And Calcium Active PO Twice daily May 26, 2021 2:53pmStart: 77-18-4594txxk 1 tablet by mouth once daily in the morningVitamin D And Calcium Active 1 TAB PO Every morning May 26, 2021 12:00am On Hold: Resume on 12/03/24. Complies with drug therapyStart: 05-26-2021 take 1 tablet by mouth once daily in the morningVitamin D And Calcium Active 1 TAB PO Every morning May 26, 2021 12:00am Complies with drug therapyStart: 28-20-6189gufx 1 tablet by mouth once daily in the morningStart: 05-26-2021 Start: 57-05-4190Vvuhmgu D And Calcium Active PO Twice daily May 26, 2021 12:00am Complies with drug therapyStart: 71-91-4247Mspxrdz D And Calcium Active PO Twice daily May 26, 2021 12:00amzonisamide 50 mg oral capsule (20 sources)Anti-epileptic AgentStart: 54-23-3506shzj 2 capsules by mouth once daily at bedtimezonisamide (Zonegran) 50 MG capsule TAKE TWO CAPSULES BY MOUTH DAILY AT BEDTIME 10/25/2023 Active Completed/Discontinued Medications MedicationDrug Class(es)DatesSig (Normalized)Sig (Original)ALPRAZolam 0.5 mg oral tablet (20 sources)BenzodiazepineStart: 05-27-2024 End: 81-51-5656khrj 0.25 mg by mouth twice dailyAlprazolam 0.5 mg tablet Discontinued 0.25 MG PO Twice daily 30 30 0 November 09, 2024 8:13am November 12, 2024 10:46am Anxiety Anxiety disorder, unspecified anxietyStart: 05-26-2021 End: 17-70-9847uerp 1 tablet by mouth twice daily as needed for anxiety Alprazolam 0.5 mg tablet Discontinued 0.5 MG PO Twice daily as needed for anxiety 50 30 0 April 21, 2024 9:17am May 27, 2024 1:18pm Anxiety Anxiety disorder, unspecifiedStart: 87-77-7364wqvpzmccoy Oral, Refills(s) 0, Anxiety Start Date: 01/28/20 Status: OrderedStart: 56-96-3878zceuqtkcqx Oral, Refills(s) 0 Start Date: 01/28/20 Status: Orderedbaclofen 10 mg oral tablet (20 sources)gamma-Aminobutyric Acid-ergic AgonistStart: 09-09-2023 End: 62-40-7104sumf 1 tablet by mouth once daily as neededBaclofen 10 mg tablet Discontinued 10 MG PO Daily as needed September 09, 2023 12:00am January 20, 2024 2:04pmStart: 05-06-2023 End: 05-31-4059exkg 1 tablet by mouth three times daily as neededBaclofen 10 mg tablet Discontinued 0 .ROUTE .COMPLEX 90 0 May 06, 2023 4:38pm July 03, 2023 9:05am TAKE ONE TABLET BY MOUTH THREE TIMES A DAY NEEDEDStart: 05-26-2021 End: 86-48-9747zaqm 1 tablet by mouth twice daily as needed for painBaclofen 10 mg Tablet Discontinued 10 MG PO Twice daily as needed for Pain May 26, 2021 12:00amMa2023 4:38pmStart: 04-34-4787dlprqvnl Oral, TID, Refills(s) 0, Muscle pain Start Date: 01/28/20 Status: Orderedbenzonatate 100 mg oral capsule (1 source)Non-narcotic AntitussiveStart: 75-62-4727mhqk 1 capsule by mouth every eight hours as needed for coughBenzonatate 100 MG 1 capsule as needed Orally every 8 hours as needed for cough for 5 days Sep, Not-Taking clarithromycin 500 mg oral tablet (1 source)Macrolide AntimicrobialStart: 55-18-4546eeyi 1 tablet by mouth twice dailyBiaxin 500 MG 1 tablet Orally Twice a day for 10 day(s) Sep, Not-Takingdiclofenac sodium 75 mg delayed release oral tablet (11 sources)Nonsteroidal Anti-inflammatory DrugStart: 05-26-2021 End: 84-28-4784twax 1 tablet by mouth twice daily as [...] oral capsule (8 sources)Anti-epileptic AgentStart: 09-30-2024 End: 46-18-3128sqmw 3 capsules by mouth three times dailyGabapentin 300 mg capsule Discontinued 900 MG PO Three times daily September 30, 2024 12:00am November 04, 2024 11:14ammethylPREDNISolone (20 sources)CorticosteroidStart: 04-15-2024 End: 17-45-9121odynuwDYPOSEDvtjol (Medrol Dospak) 4 MG tablets Indications: Acute pain of left knee Follow schedule on package instructions 21 tablet 04/15/2024 06/23/2024 Discontinued (Therapy completed)Start: 04-15-2024 methylPREDNISolone (Medrol Dospak) 4 MG tablets Indications: Acute pain of left knee Follow schedule on package instructions 21 tablet 04/15/2024 ActiveStart: 12-31-2023 End: 79-84-4749tccosiGOVTVYFqxypk (Medrol Dospak) 4 MG tablets Indications: S/P left knee arthroscopy , Left knee pain, unspecified chronicity Follow schedule on package instructions 21 tablet 12/31/2023 06/23/2024Discontinued (Therapy completed)Start: 54-39-1585kaxpgvWQKOYUCwmtkx (Medrol Dospak) 4 MG tablets Indications: S/P left knee arthroscopy , Left knee pain, unspecified chronicity Follow schedule on package instructions 21 tablet 12/31/2023 Activeomeprazole 40 mg delayed release oral capsule (20 sources)Proton Pump InhibitorStart: 05-26-2021 End: 21-46-8244zslv 1 capsule by mouth once dailyOmeprazole 40 mg capsule,delayed release(DR/EC) Discontinued 40 MG PO Daily 30 30 5 June 19, 2024 1:02pm November 12, 2024 10:46amStart: 99-79-1054yvbrhfauca Oral, Daily, Refills(s) 0, Control of stomach acid Start Date: 01/28/20 Status: Ordered End: 17-48-9090ltucwwcenj (PriLOSEC) [address] capsule 1 (one) time each day at the same time 06/23/2024 Discontinued (Therapy completed)pregabalin 50 mg oral capsule (6 sources)Start: 11-04-2024 End: 87-97-0448gcxg 1 capsule by mouth three times dailyPregabalin (Lyrica) 50 mg capsule Discontinued 50 MG PO Three times daily November 04, 2024 12:00am November 12, 2024 10:41am Problems Active Problems Problem ClassificationProblemDateDocumented DateEpisodic/ChronicAbdominal pain (9 sources)Abdominal pain; Translations: [Unspecified abdominal pain]12-03-2023 EpisodicAnxiety disorders (20 sources)Mixed anxiety and depressive disorder; Translations: [Other specified anxiety disorders]Onset: 04-79-5237LfvyognOikjwro on above:Problem List clean-up per request of Phys. EHR CmteDisorders of lipid metabolism (20 sources)Hyperlipidemia, unspecified; Translations: [Hyperlipoproteinemia] Onset: 46-62-1109GijmvqaSsaxvmycse disorders (17 sources)Gastroesophageal reflux disease; Translations: [Gastro-esophageal reflux disease without esophagitis]Onset: 18-78-1583WcfqxnzXhful and electrolyte disorders (6 sources)Iulikrtwlbk84-59-2723QdcxmzodJvqtf disorders and dislocations; trauma-related (6 sources)Derangement of left knee; Translations: [Unspecified internal derangement of left knee]54-06-1689GdfefthGotag disorders and dislocations; trauma-related (5 sources)Acute tear of medial meniscus of right knee; Translations: [Other tear of medial meniscus, current injury, right knee, initial encounter] 03-11-9290PezhlozkMswshrzbh of unspecified nature or uncertain behavior (6 sources)Neoplasm of thyroid hvhfi53-44-7909AwlwabegChqezvwfcafhr gastroenteritis (17 sources)Chronic diarrhea; Translations: [Noninfective gastroenteritis and colitis, unspecified]Onset: 39-88-2729BpqdyqkxPtkhjycnoifp breast conditions (3 sources)Breast signs and symptoms; Translations: [Other signs and symptoms in breast]EpisodicOsteoarthritis (20 sources)Osteoarthritis; Translations: [Unspecified osteoarthritis, unspecified site]Onset: 529454-41-6243PivzcttKzeiw circulatory disease (3 sources)Elevated blood-pressure reading without diagnosis of hypertension; Translations: [Elevated blood-pressure reading, without diagnosis of hypertension]EpisodicOther connective tissue disease (4 sources)Other muscle spasm; Translations: [OTHER MUSCLE SPASM]Onset: 63-73-3672YudkyuflHtgjw connective tissue disease (20 sources)Pain in right foot; Translations: [Pain in right foot]Onset: 016663-95-3171ClwocqubVlewo connective tissue disease (2 sources)Pain in right footEpisodicOther connective tissue disease (1 source)Iliotibial band syndrome, left legEpisodicOther connective tissue disease (1 source)Foot pain; Translations: [Pain in right foot]77-25-8988JcunesesQqrxq lower respiratory disease (3 sources)Lung field abnormal; Translations: [Other nonspecific abnormal finding of lung field]EpisodicOther nervous system disorders (9 sources)Carpal tunnel syndrome; Translations: [Carpal tunnel syndrome, unspecified upper limb]Onset: 714509-08-7633TcayhxjTgysk non-traumatic joint disorders (10 sources)Pain in left knee; Translations: [Pain in joint, lower leg] 68-17-0304PwrygoafRiimh non-traumatic joint disorders (4 sources)Pain in right knee; Translations: [Pain in joint, lower leg] 97-76-4638KhchxbckZeznw nutritional; endocrine; and metabolic disorders (4 sources)Body mass index 30+ - obesity; Translations: [Body mass index (BMI) 35.0-35.9, adult]ChronicOther nutritional; endocrine; and metabolic disorders (9 sources)Obese class II; Translations: [Body mass index (BMI) 35.0-35.9, adult]33-02-6106UyzslhsIfaor nutritional; endocrine; and metabolic disorders (6 sources)Lceboptjgkieyi86-41-3259XhqlgsbQwbjh screening for suspected conditions (not mental disorders or infectious disease) (14 sources)Encounter for screening mammogram for malignant neoplasm of breast; Translations: [Patient encounter status]Onset: 35-02-5131OpipnhiwOqyph upper respiratory disease (3 sources)Seasonal allergic rhinitis; Translations: [Other seasonal allergic rhinitis]Onset: 47-99-3297EqikrdqXyuyrxje enteritis and ulcerative colitis (20 sources)Chronic ulcerative pancolitis; Translations: [Ulcerative (chronic) pancolitis without complications]Onset: 53-04-8681FeoichwBsbdkebh codes; unclassified (20 sources)Obstructive sleep apnea syndrome; Translations: [Obstructive sleep apnea (adult) (pediatric)]Onset: 495098-11-3076YfwubpoHznjodfl codes; unclassified (10 sources)History of arthroscopy of knee joint; Translations: [Other specified postprocedural states]58-83-3381BtvluhqnOontirdo codes; unclassified (4 sources)History of arthroscopy of knee joint; Translations: [Other specified postprocedural states]11-76-3325QrzzooouKztwfslyvhj; intervertebral disc disorders; other back problems (6 sources)Spondylosis without myelopathy or radiculopathy, lumbar region; Translations: [Other intervertebraldisc degeneration, lumbar region]Onset: 03-30-9566FziaydjLxkifttnbeo; intervertebral disc disorders; other back problems (20 sources)Muscle spasm of back; Translations: [Low back pain]Onset: 02-13-2018 EpisodicSubstance-related disorders (7 sources)Nicotine dependence, cigarettes, uncomplicated; Translations: [Tobacco user]Onset: 87-57-5204CkpxqzfTygeivu disorders (20 sources)Nontoxic goiter, unspecified; Translations: [Hypothyroidism, unspecified]Onset: 50-25-1484TllnxkmIsjusvzhmmbr (4 sources)LOW BACK PAIN, UNSPECIFIED; Translations: [LOW BACK PAIN, UNSPECIFIED]Onset: 05-09-4494Etzdykvbmnyl (1 source)CONTACT W/AND (SUSP) EXPOS COVID-19; Translations: [CONTACT W/AND (SUSP) EXPOS COVID-19]Onset: 15-00-8482Nywxdadifshw (2 sources)Preprocedural examination ycdx68-86-3327Axeekjhkabzv (2 sources)M54.16 - Radiculopathy, lumbar regionUnclassified (4 sources)Please call the office on Saturday to schedule a follow up appointment in 2 weeks Past or Other Problems Problem ClassificationProblemDateDocumented DateEpisodic/ChronicOther circulatory disease (3 sources)Orthostatic hypotension; Translations: [Orthostatic hypotension] Onset: 66-16-1313OgwmhvskBhuaz lower respiratory disease (4 sources)Other nonspecific abnormal finding of lung field; Translations: [OTH NONSPECIFIC ABN FIND LNG FIELD]Onset: 62-78-7195FufhactiZglyx lower respiratory disease (9 sources)Dyspnea; Translations: [Other forms of dyspnea]Onset: 06-17-2018 96-31-2868LtjsmtgzBskkj nervous system disorders (3 sources)Paresthesia; Translations: [Paresthesia of skin]Onset: 02-13-2018 EpisodicOther nervous system disorders (1 source)Postoperative pain ; Translations: [Other acute postprocedural pain] 18-82-9341CzvgoxszIvmco non-traumatic joint disorders (1 source)Pain in left hip; Translations: [PAIN IN LEFT HIP]Onset: 04-21-2021 EpisodicResidual codes; unclassified (6 sources)Tobacco userOnset: [id number] (1 source)LOW BACK PAIN, UNSPECIFIED; Translations: [LOW [...] have to be seen in the office again.[facility] Metabolic Panelon 83-85-3183Uoyxo gap [Moles/Vol]9.6 mmol/LNormal6.0-15.0The [facility] Physician GroupComment on above:Performed By: #### PTT, BMP, PT, CBC #### [place] [address] USACalcium [Mass/Vol]8.2 mg/dLLow8.6-10.3The [facility] Physician GroupComment on above:Performed By: #### PTT, BMP, PT, CBC #### [place] [address] USAChloride [Moles/Vol]103 mmol/CQvmrnv25-648Lrv [facility] Physician GroupComment on above:Performed By: #### PTT, BMP, PT, CBC #### [place] [address] USACO2 [Moles/Vol]26.9 mmol/AMzcoxw33.0-31.0The [facility] Physician GroupComment on above:Performed By: #### PTT, BMP, PT, CBC #### [place] [address] USACreatinine [Mass/Vol]0.45 mg/dLLow0.60-1.20The Former[facility] Physician GroupComment on above:Performed By: #### PTT, BMP, PT, CBC #### [place] [address] USACreatinine Clr Calc Bdjyeajf08.10NormalThe Formerly [facility] Physician GroupComment on above:Result Comment: PERFORMED BY: [place] [address] PATHOLOGIST REPAIR WELDER MEGAN BENDER M.D.Performed By: #### PTT, BMP, PT, CBC #### [place] [address] USAGFR/1.73 sq M.predicted MDRD (S/P/Bld) [Vol rate/Area] mL/min/{1.73_m2}NormalThe Formerly [facility] Physician GroupComment on above:Performed By: #### PTT, BMP, PT, CBC #### [place] [address] USAGlucose [Mass/Vol]127 mg/oRKkdv96-525Nlv [facility] Physician GroupComment on above:Result Comment: Random Glucose Reference Range is dependent on time and content of last meal. Glucose of more than 200 mg/dL in a nonstressed, ambulatory subject supports the diagnosis of Diabetes Mellitus. ADA recommended reference rangePerformed By: #### PTT, BMP, PT, CBC #### [place] [address] USAPotassium [Moles/Vol]3.5 mmol/LNormal3.5-5.1The [facility] Physician GroupComment on above:Performed By: #### PTT, BMP, PT, CBC #### [place] [address] USASodium [Moles/Vol]136 mmol/MFmlsjs094-161Dzx [facility] Physician GroupComment on above:Performed By: #### PTT, BMP, PT, CBC #### [place] [address] USAUrea nitrogen [Mass/Vol]7 mg/dLNormal7-25The [facility] Physician GroupComment on above:Performed By: #### PTT, BMP, PT, CBC #### [place] [address] USAComplete Blood Count Auto Diffon 75-44-3351Fkimqtgtk (Bld) [#/Vol]0.1 10*3/uLNormal0.0-0.2The Former[facility] Physician GroupComment on above: Result Comment: PERFORMED BY: [place] [address] PATHOLOGIST REPAIR WELDER MEGAN BENDER M.D.Performed By: #### PTT, BMP, PT, CBC #### [place] [address] USABasophils/100 WBC (Bld)0.8 %Normal.The Former[facility] Physician GroupComment on above:Performed By: #### PTT, BMP, PT, CBC #### [place] [address] USAEosinophils (Bld) [#/Vol]0.0 10*3/uLNormal0.0-0.45The Former[facility] Physician GroupComment on above:Performed By: #### PTT, BMP, PT, CBC #### [place] [address] USAEosinophils/100 WBC (Bld)0.2 %Normal.The [facility] Physician GroupComment on above:Performed By: #### PTT, BMP, PT, CBC #### [place] [address] USAErythrocyte distribution width (RBC) [Ratio]15.1 %Normal 11.9-15.3The Former[facility] Physician GroupComment on above:Performed By: #### PTT, BMP, PT, CBC #### [place] [address] USAHematocrit (Bld) [Volume fraction]24.2 %Low34.0-46.4The Former[facility] Physician GroupComment on above:Performed By: #### PTT, BMP, PT, CBC #### [place] [address] USAHemoglobin (Bld) [Mass/Vol]8.1 g/dLLow11.8-15.4The Former[facility] Physician GroupComment on above:Performed By: #### PTT, BMP, PT, CBC #### [place] [address] USALymphocytes (Bld) [#/Vol]1.1 10*3/uLNormal1.00-4.8The [facility] Physician GroupComment on above:Performed By: #### PTT, BMP, PT, CBC #### [place] [address] USALymphocytes/100 WBC (Bld)12.7 %Normal.The [facility] Physician GroupComment on above:Performed By: #### PTT, BMP, PT, CBC #### [place] [address] USAMCH (RBC) [Entitic mass]30.8 vyPzycyd71.7-34.3The [facility] Physician GroupComment on above:Performed By: #### PTT, BMP, PT, CBC #### [place] [address] USAMCV (RBC) [Entitic vol]91.6 fKAzvcjz92-451Poc [facility] Physician GroupComment on above:Performed By: #### PTT, BMP, PT, CBC #### [place] [address] USAMean Corpuscular HGB Conc33.7 g/rCArdaay22.0-35.0The [facility] Physician GroupComment on above:Performed By: #### PTT, BMP, PT, CBC #### [place] [address] USAMonocytes (Bld) [#/Vol]0.9 10*3/uLHigh0.0-0.8The [facility] Physician GroupComment on above:Performed By: #### PTT, BMP, PT, CBC #### [place] [address] USAMonocytes/100 WBC (Bld)10.4 %Normal.The [facility] Physician GroupComment on above:Performed By: #### PTT, BMP, PT, CBC #### [place] [address] USANeutrophils (Bld) [#/Vol]6.5 10*3/uLNormal1.8-7.7The [facility] Physician GroupComment on above:Performed By: #### PTT, BMP, PT, CBC #### [place] [address] USANeutrophils/100 WBC (Bld)75.9 %Normal.The [facility] Physician GroupComment on above:Performed By: #### PTT, BMP, PT, CBC #### [place] [address] USANRBC%0.0 /100{WBC}Normal0-0.5The [facility] Comment on above:Performed By: #### PTT, BMP, PT, CBC #### [place] [address] USAPlatelet mean volume (Bld) [Entitic vol]8.2 fLNormal 6.3-10.7The [facility] Physician GroupComment on above:Performed By: #### PTT, BMP, PT, CBC #### [place] [address] USAPlatelets (Bld) [#/Vol]178 10*3/vNRbjomm796-870Cap [facility] Physician GroupComment on above:Performed By: #### PTT, BMP, PT, CBC #### [place] [address] USARBC (Bld) [#/Vol]2.64 10*6/uLLow3.60-5.00The [facility] Physician GroupComment on above:Performed By: #### PTT, BMP, PT, CBC #### [place] [address] USAWBC (Bld) [#/Vol]8.6 10*3/uLNormal3.8-11.6The [facility] Physician GroupComment on above:Performed By: #### PTT, BMP, PT, CBC #### [place] [address] USAWhite Blood Count8.6 [CFU]/mLNormal3.8-11.6The [facility] Physician GroupComment on above:Performed By: #### PTT, BMP, PT, CBC #### [place] [address] USABasic Metabolic Panelon 07-44-6342Dcbkw gap [Moles/Vol]8.7 mmol/LNormal6.0-15.0The [facility] Physician GroupComment on above:Performed By: #### PTT, BMP, PT, CBC #### [place] [address] USACalcium [Mass/Vol]8.2 mg/dLLow8.6-10.3The [facility] Physician GroupComment on above:Performed By: #### PTT, BMP, PT, CBC #### [facility] [address] [place] [address] USAChloride [Moles/Vol]104 mmol/RKrgddd45-840Wlq [facility] Physician GroupComment on above:Performed By: #### PTT, BMP, PT, CBC #### [facility] [address] [place] [address] USACO2 [Moles/Vol]26.1 mmol/GQwsdft66.0-31.0The [facility] Physician GroupComment on above:Performed By: #### PTT, BMP, PT, CBC #### [facility] [address] [place] [address] USACreatinine [Mass/Vol]0.54 mg/dLLow0.60-1.20The Former[facility] Physician GroupComment on above:Performed By: #### PTT, BMP, PT, CBC #### [place] [address] USACreatinine Clr Calc Tpxvbwip43.10NormalThe [facility] Physician GroupComment on above:Result Comment: PERFORMED BY: [place] [address] PATHOLOGIST REPAIR WELDER MEGAN BENDER M.D.Performed By: #### PTT, BMP, PT, CBC #### [place] [address] USAGFR/1.73 sq M.predicted MDRD (S/P/Bld) [Vol rate/Area] mL/min/{1.73_m2}NormalThe [facility] Physician GroupComment on above:Performed By: #### PTT, BMP, PT, CBC #### [place] [address] USAGlucose [Mass/Vol]154 mg/oVQddz38-595Oge [facility] Physician GroupComment on above:Result Comment: Random Glucose Reference Range is dependent on time and content of last meal. Glucose of more than 200 mg/dL in a nonstressed, ambulatory subject supports the diagnosis of Diabetes Mellitus. ADA recommended reference rangePerformed By: #### PTT, BMP, PT, CBC #### [place] [id number] USAPotassium [Moles/Vol]3.8 mmol/LNormal3.5-5.1The Former[facility] Physician GroupComment on above:Performed By: #### PTT, BMP, PT, CBC #### [place] [address] USASodium [Moles/Vol]135 mmol/YJay193-193Omq [facility] Physician GroupComment on above:Performed By: #### PTT, BMP, PT, CBC #### [place] [address] USAUrea nitrogen [Mass/Vol]8 mg/dLNormal7-25The [facility] Physician GroupComment on above:Performed By: #### PTT, BMP, PT, CBC #### [place] [address] USAComplete Blood Count Auto Diffon [id number] (Bld) [#/Vol]0.1 10*3/uLNormal0.0-0.2The Former[facility] Physician GroupComment on above: Result Comment: PERFORMED BY: [place] [address] PATHOLOGIST REPAIR WELDER MEGAN BENDER M.D.Performed By: #### PTT, BMP, PT, CBC #### [place] [address] USABasophils/100 WBC (Bld)0.5 %Normal.The [facility] Physician GroupComment on above:Performed By: #### PTT, BMP, PT, CBC #### [place] [address] USAEosinophils (Bld) [#/Vol]0.0 10*3/uLNormal0.0-0.45The Former[facility] Physician GroupComment on above:Performed By: #### PTT, BMP, PT, CBC #### [place] [address] USAEosinophils/100 WBC (Bld)0.2 %Normal.The [facility] Physician GroupComment on above:Performed By: #### PTT, BMP, PT, CBC #### [place] [address] USAErythrocyte distribution width (RBC) [Ratio]14.8 %Normal 11.9-15.3The [facility] Physician GroupComment on above:Performed By: #### PTT, BMP, PT, CBC #### [place] [address] USAHematocrit (Bld) [Volume fraction]23.6 %Low34.0-46.4The [facility] Physician GroupComment on above:Performed By: #### PTT, BMP, PT, CBC #### [place] [address] USAHemoglobin (Bld) [Mass/Vol]7.9 g/dLLow11.8-15.4The [facility] Physician GroupComment on above:Performed By: #### PTT, BMP, PT, CBC #### [place] [address] USALymphocytes (Bld) [#/Vol]0.9 10*3/uLLow1.00-4.8The Former[facility] Physician GroupComment on above:Performed By: #### PTT, BMP, PT, CBC #### [place] [address] USALymphocytes/100 WBC (Bld)9.9 %Normal.The [facility] Physician GroupComment on above:Performed By: #### PTT, BMP, PT, CBC #### [place] [address] USAMCH (RBC) [Entitic mass]30.9 geEyaxam40.7-34.3The [facility] Physician GroupComment on above:Performed By: #### PTT, BMP, PT, CBC #### [place] [address] USAMCV (RBC) [Entitic vol]92.2 hTDxqala05-681Poh [facility] Physician GroupComment on above:Performed By: #### PTT, BMP, PT, CBC #### [place] [id number] USAMean Corpuscular HGB Conc33.5 g/eVUtxwmz61.0-35.0The [facility] Physician GroupComment on above:Performed By: #### PTT, BMP, PT, CBC #### [place] [address] USAMonocytes (Bld) [#/Vol]0.9 10*3/uLHigh0.0-0.8The [facility] Physician GroupComment on above:Performed By: #### PTT, BMP, PT, CBC #### [place] [address] USAMonocytes/100 WBC (Bld)9.2 %Normal.The [facility] Physician GroupComment on above:Performed By: #### PTT, BMP, PT, CBC #### [place] [address] USANeutrophils (Bld) [#/Vol]7.7 10*3/uLNormal1.8-7.7The [facility] Physician GroupComment on above:Performed By: #### PTT, BMP, PT, CBC #### [place] [address] USANeutrophils/100 WBC (Bld)80.2 %Normal.The [facility] Physician GroupComment on above:Performed By: #### PTT, BMP, PT, CBC #### [place] [address] USANRBC%0.1 /100{WBC}Normal0-0.5The [facility] Comment on above:Performed By: #### PTT, BMP, PT, CBC #### [place] [address] USAPlatelet mean volume (Bld) [Entitic vol]8.6 fLNormal 6.3-10.7The [facility] Physician GroupComment on above:Performed By: #### PTT, BMP, PT, CBC #### [place] [address] USAPlatelets (Bld) [#/Vol]172 10*3/mSJediov487-457Dfo [facility] Physician GroupComment on above:Performed By: #### PTT, BMP, PT, CBC #### [facility] [address] [place] [address] USARBC (Bld) [#/Vol]2.56 10*6/uLLow3.60-5.00The Former[facility] Physician GroupComment on above:Performed By: #### PTT, BMP, PT, CBC #### [facility] [address] [place] [address] USAWBC (Bld) [#/Vol]9.6 10*3/uLNormal3.8-11.6The [facility] Physician GroupComment on above:Performed By: #### PTT, BMP, PT, CBC #### [place] [address] USAWhite Blood Count9.6 [CFU]/mLNormal3.8-11.6The [facility] Physician GroupComment on above:Performed By: #### PTT, BMP, PT, CBC #### [place] [address] USABasic Metabolic Panelon 59-84-1023Xhytf gap [Moles/Vol] 10.2 mmol/LNormal6.0-15.0The [facility] Physician GroupComment on above:Performed By: #### BMP, CBC #### [place] [address] USACalcium [Mass/Vol]7.9 mg/dLLow8.6-10.3The [facility] Physician GroupComment on above:Performed By: #### BMP, CBC #### [place] [address] USAChloride [Moles/Vol]105 mmol/ZCkpudi97-130Ctg [facility] Physician GroupComment on above:Performed By: #### BMP, CBC #### [place] [address] USACO2 [Moles/Vol]23.7 mmol/EFsfdss19.0-31.0The [facility] Physician GroupComment on above:Performed By: #### BMP, CBC #### [address] [place] [address] USACreatinine [Mass/Vol]0.74 mg/dLNormal0.60-1.20The [facility] Physician GroupComment on above:Performed By: #### BMP, CBC #### [place] [address] USACreatinine Clr Calc Bvolhult70.46NormalThe [facility] Physician GroupComment on above:Result Comment: PERFORMED BY: [place] [address] PATHOLOGIST REPAIR WELDER MEGAN BENDER M.D.Performed By: #### BMP, CBC #### [place] [address] USAGFR/1.73 sq M.predicted MDRD (S/P/Bld) [Vol rate/Area] mL/min/{1.73_m2}NormalThe [facility] Physician GroupComment on above:Performed By: #### BMP, CBC #### [place] [address] USAGlucose [Mass/Vol]129 mg/hRXrbb45-992Jaq [facility] Physician GroupComment on above:Result Comment: Random Glucose Reference Range is dependent on time and content of last meal. Glucose of more than 200 mg/dL in a nonstressed, ambulatory subject supports the diagnosis of Diabetes Mellitus. ADA recommended reference rangePerformed By: #### BMP, CBC #### [place] [address] USAPotassium [Moles/Vol]3.9 mmol/LNormal3.5-5.1The [facility] Physician GroupComment on above:Performed By: #### BMP, CBC #### [place] [address] USASodium [Moles/Vol]135 mmol/GYvt745-940Kvx [facility] Physician GroupComment on above:Performed By: #### BMP, CBC #### [place] [address] USAUrea nitrogen [Mass/Vol]9 mg/dLNormal7-25The [facility] Physician GroupComment on above:Performed By: #### BMP, CBC #### [place] [address] USAComplete Blood Count Auto Diffon 13-85-9136Pzugotujm (Bld) [#/Vol]0.1 10*3/uLNormal0.0-0.2The [facility] Physician GroupComment on above: Result Comment: PERFORMED BY: [place] [address] PATHOLOGIST REPAIR WELDER MEGAN BENDER M.D.Performed By: #### PTT, BMP, PT, CBC #### [place] [address] USABasophils/100 WBC (Bld)0.5 %Normal.The [facility] Physician GroupComment on above:Performed By: #### PTT, BMP, PT, CBC #### [place] [address] USAEosinophils (Bld) [#/Vol]0.0 10*3/uLNormal0.0-0.45The [facility] Physician GroupComment on above:Performed By: #### PTT, BMP, PT, CBC #### [place] [address] USAEosinophils/100 WBC (Bld)0.2 %Normal.The [facility] Physician GroupComment on above:Performed By: #### PTT, BMP, PT, CBC #### [place] [address] USAErythrocyte distribution width (RBC) [Ratio]14.7 %Normal 11.9-15.3The Former[facility] Physician GroupComment on above:Performed By: #### PTT, BMP, PT, CBC #### [place] [address] USAHematocrit (Bld) [Volume fraction]27.3 %Low34.0-46.4The [facility] Physician GroupComment on above:Performed By: #### PTT, BMP, PT, CBC #### [place] [address] USAHemoglobin (Bld) [Mass/Vol]9.0 g/dLLow11.8-15.4The [facility] Physician GroupComment on above:Performed By: #### PTT, BMP, PT, CBC #### [place] [address] USALymphocytes (Bld) [#/Vol]1.2 10*3/uLNormal1.00-4.8The [facility] Physician GroupComment on above:Performed By: #### PTT, BMP, PT, CBC #### [place] [address] USALymphocytes/100 WBC (Bld)11.1 %Normal.The [facility] Physician GroupComment on above:Performed By: #### PTT, BMP, PT, CBC #### [place] [address] USAMCH (RBC) [Entitic mass]30.7 ntGdywgw62.7-34.3The [facility] Physician GroupComment on above:Performed By: #### PTT, BMP, PT, CBC #### [place] [address] USAMCV (RBC) [Entitic vol]93.1 aVCoypdf79-546Ogn [facility] Physician GroupComment on above:Performed By: #### PTT, BMP, PT, CBC #### [place] [address] USAMean Corpuscular HGB Conc33.0 g/lYCtuttw97.0-35.0The [facility] Physician GroupComment on above:Performed By: #### PTT, BMP, PT, CBC #### [place] [address] USAMonocytes (Bld) [#/Vol]1.2 10*3/uLHigh0.0-0.8The [facility] Physician GroupComment on above:Performed By: #### PTT, BMP, PT, CBC #### [place] [address] USAMonocytes/100 WBC (Bld)11.5 %Normal.The [facility] Physician GroupComment on above:Performed By: #### PTT, BMP, PT, CBC #### [place] [address] USANeutrophils (Bld) [#/Vol]8.0 10*3/uLHigh1.8-7.7The [facility] Physician GroupComment on above:Performed By: #### PTT, BMP, PT, CBC #### [place] [address] USANeutrophils/100 WBC (Bld)76.7 %Normal.The [facility] Physician GroupComment on above:Performed By: #### PTT, BMP, PT, CBC #### [place] [address] USANRBC%0.1 /100{WBC}Normal0-0.5The [facility] Comment on above:Performed By: #### PTT, BMP, PT, CBC #### [place] [address] USAPlatelet mean volume (Bld) [Entitic vol]8.6 fLNormal 6.3-10.7The [facility] Physician GroupComment on above:Performed By: #### PTT, BMP, PT, CBC #### [place] [address] USAPlatelets (Bld) [#/Vol]196 10*3/vHBczxgb678-979Yhe [facility] Physician GroupComment on above:Performed By: #### PTT, BMP, PT, CBC #### [place] [address] USARBC (Bld) [#/Vol]2.93 10*6/uLLow3.60-5.00The [facility] Physician GroupComment on above:Performed By: #### PTT, BMP, PT, CBC #### [place] [address] USAWBC (Bld) [#/Vol]10.4 10*3/uLNormal3.8-11.6The [facility] Physician GroupComment on above:Performed By: #### PTT, BMP, PT, CBC #### [facility] [address] [place] [id number] USAWhite Blood Count10.4 [CFU]/mLNormal3.8-11.6The [facility] Physician GroupComment on above:Performed By: #### PTT, BMP, PT, CBC #### [facility] [address] [place] [id number] USAXR lumbar spine 2-3V*on 90-26-7769YT lumbar spine 2-3V* [facility] [address] [place] [address] XRay Report Signed Patient: Alexandra Cervantes MR#: [id number] 2 : 1950 Acct:[id number] Age/Sex: 74 / F ADM Date: 11/26/24 Loc: Room: [address] [place] [address] Type: ADM IN Attending Dr: Nasim Segal [...] 8:35 AM Dictation Location: RADIO-PC-23 Transcribed By: [facility] 11/27/2435 Dictated By: Rad Jung II, MD 11/27/2433 Signed By: 11/27/24 0835[facility] GroupXR lumbar spine 2-3V*on 90-77-0448KH lumbar spine 2-3V*[facility] [address] [place] [address] XRay Report Signed Patient: Alexandra Cervantes MR#: [id number] 2 : 1950 Acct:[id number] Age/Sex: 74 / F ADM Date: 11/26/24 Loc: Room: [address] [place] [address] Type: ADM IN Attending Dr: Nasim Segal [...] Jr, DO 11/26/24 155 Signed By: 11/26/24 1555[facility]antsBasic Metabolic Panelon 92-37-1930WUP/1.73 sq M.predicted MDRD (S/P/Bld) [Vol rate/Area]mL/min/{1.73_m2} NormalThe [facility] Physician GroupComment on above:Performed By: #### PTT, BMP, PT, CBC #### [place] [address] USABasophils [#/volume] in Blood by Automated countOrdered By: Nasim Segal on 35-63-0773Jlgoxxkni (Bld) [#/Vol]0.0 10*3/uLNormal0.0-0.2 [facility] CenterComment on above:Result Comment: PERFORMED BY: [place] [address] PATHOLOGIST REPAIR WELDER MEGAN BENDER M.D.Performed By: #### PTT, BMP, PT, CBC #### [facility] [address] [place] [address] USABasophils/100 leukocytes in Blood by Automated count Ordered By: Nasim Segal on 07-90-3784Ohmgiskim/100 WBC (Bld)0.6 %Normal. [facility] CenterComment on above:Performed By: #### PTT, BMP, PT, CBC #### [facility] [address] [place] [address] USACalcium [Mass/volume] in Serum or PlasmaOrdered By: Nasim Segal on 57-84-3574Jzfurrf [Mass/Vol]9.2 mg/dLNormal8.6-10.3FClermont County HospitalComment on above:Result Comment: PERFORMED BY: [place] [address] PATHOLOGIST REPAIR WELDER MEGAN BENDER M.D.Performed By: #### PTT, BMP, PT, CBC #### [facility] [address] [place], [place] [id number] USACarbon dioxide, total [Moles/volume] in Serum or Plasma Ordered By: Nasim Segal on 19-19-9571EM4 [Moles/Vol]26.7 mmol/IBohbre12.0-31.0 [facility] Beachwood Medical CenterComment on above:Performed By: #### PTT, BMP, PT, CBC #### [facility] [address] [place] [address] USAChloride [Moles/volume] in Serum or PlasmaOrdered By: Nasim Segal on 31-75-2934Kmegpkga [Moles/Vol]100 mmol/RIdzuju27-194HjyzmrotiUniversity Hospitals Beachwood Medical CenterComment on above:Performed By: #### PTT, BMP, PT, CBC #### [facility] [address] [place] [address] USAComplete Blood Count Auto Diffon 48-66-4036Vrhd Corpuscular HGB Conc33.6 g/rJNkbkrd78.0-35.0The [facility] Physician GroupComment on above:Performed By: #### PTT, BMP, PT, CBC #### [facility] [address] [place] [address] USANRBC%0.1 /100{WBC}Normal0-0.5[facility] Comment on above:Performed By: #### PTT, BMP, PT, CBC #### [place] [address] USAWhite Blood Count5.7 [CFU]/mLNormal3.8-11.6The [facility] Physician [facility] And InfantsComment on above:Performed By: #### PTT, BMP, PT, CBC #### [place] [address] USACreatinine [Mass/volume] in Serum or PlasmaOrdered By: Nasim Segal on 88-81-2621Cbsrgkrgkb [Mass/Vol]0.62 mg/dLNormal0.60-1.20 [facility] CenterComment on above:Performed By: #### PTT, BMP, PT, CBC #### [place] [address] USAECG 12 lead ECGon 14-58-3365UOY 12 lead ECGKETTERING [facility] [address] [place] [address] Electrocardiograph Report Signed Patient: Alexandra Cervantes MR#: [id number] 2 : 1950 Acct:[id number] Age/Sex: 74 / F ADM Date: 11/12/24 Loc: PS Room: Type: [facility] Attending Dr: Nasim Segal DO Ordering Provider: [...] axis shifted left Confirmed by Larissa Chao ([id number]) on 11/13/2024 10:43:41 PM Referred By: Electronically Signed By: Larissa Chao Transcribed By: MUS Signed By Larissa Chao MD 11/13/[address] [place] [address] Physician GroupEosinophils [#/volume] in Blood by Automated countOrdered By: Nasim Segal on 95-52-4621Wtrojakdtbw (Bld) [#/Vol]0.0 10*3/uLNormal0.0-0.45[facility] CenterComment on above:Performed By: #### PTT, BMP, PT, CBC #### [facility] [address] [place] [address] USAEosinophils/100 leukocytes in Blood by Automated count Ordered By: Nasim Segal on 41-27-0213Hhdpcxyxtwh/100 WBC (Bld)0.2 %Normal. [facility]wood Medical CenterComment on above:Performed By: #### PTT, BMP, PT, CBC #### [facility] [address] [place] [address] USAErythrocyte distribution width [Ratio] by Automated count Ordered By: Nasim Segal on 46-08-3243Hlyosvfpayr distribution width (RBC) [Ratio]14.5 %Jygjyk91.9-15.3FClermont County HospitalComment on above: Performed By: #### PTT, BMP, PT, CBC #### [facility] [address] [place] [id number] USAErythrocytes [#/volume] in Blood by Automated countOrdered By: Nasim Segal on 37-91-6284HTA (Bld) [#/Vol]4.27 10*6/uLNormal3.60-5.00 [facility] CenterComment on above:Performed By: #### PTT, BMP, PT, CBC #### [facility] [address] [place] [address] USAGlomerular filtration rate [Volume Rate/Area] in Serum, Plasma or Blood by CreatinineOrdered By: Nasim Segal on 92-22-6285Ypfjdehkzb filtration rate [Volume Rate/Area] in Serum, Plasma or Blood by Creatinine> 60.0 mL/MinUniversity Hospitals Beachwood Medical CenterGlucose [Mass/volume] in Serum or Plasma Ordered By: Nasim Segal on 95-02-7940Emnuxwf [Mass/Vol]100 mg/mGBsnyta66-603 [facility] CenterComment on above:ADA recommended reference rangeRandom Glucose Reference [...] By: #### PTT, BMP, PT, CBC #### [facility] [address] [place] [address] USAHematocrit [Volume Fraction] of Blood by Automated count Ordered By: Nasim Segal on 54-90-8438Qvmvzyxbxj (Bld) [Volume fraction]39.4 % Cpnhzk64.0-46.4FClermont County HospitalComment on above:Performed By: #### PTT, BMP, PT, CBC #### [facility] [address] [place] [address] USAHemoglobin [Mass/volume] in BloodOrdered By: Nasim Segal on 51-18-9223Jqtpeqwvmd (Bld) [Mass/Vol]13.2 g/iNBsqcsb16.8-15.4FClermont County HospitalComment on above:Performed By: #### PTT, BMP, PT, CBC #### [facility] [address] [place] [address] USAINR in Platelet poor plasma by Coagulation assayOrdered By: Nasim Segal on 83-79-7847DER Coag (PPP) [Relative time]1.0 {INR}Normal [facility] CenterComment on above:INR Therapeutic Range A) Pre- and [...] By: #### PTT, BMP, PT, CBC #### [facility] [address] [place] [address] USALeukocytes [#/volume] corrected for nucleated erythrocytes in Blood by Automated counOrdered By: Nasim Segal on 47-88-4934VZR corrected for nucl RBC Auto (Bld) [#/Vol]5.7 10*3/uL3.8-11.6FClermont County HospitalLeukocytes [#/volume] in Blood by Automated countOrdered By: Nasim Segal on 87-60-6401QQK (Bld) [#/Vol]5.7 10*3/uLNormal3.8-11.6FClermont County HospitalComment on above:Performed By: #### PTT, BMP, PT, CBC #### [facility] [address] [place] [address] USALymphocytes [#/volume] in Blood by Automated countOrdered By: Nasim Segal on 83-72-0696Nqsydzzlcak (Bld) [#/Vol]1.1 10*3/uLNormal 1.00-4.8[facility] CenterComment on above:Performed By: #### PTT, BMP, PT, CBC #### [facility] [address] [place] [address] USALymphocytes/100 leukocytes in Blood by Automated count Ordered By: Nasim Segal on 85-78-7231Ahnsiusroem/100 WBC (Bld)18.7 %Normal. [facility] CenterComment on above:Performed By: #### PTT, BMP, PT, CBC #### [facility] [address] [Entitic mass] by Automated countOrdered By: Nasim Segal on 44-15-2778VPD (RBC) [Entitic mass]31.0 ucZxbwfv35.7-34.3FClermont County HospitalComment on above:Performed By: #### PTT, BMP, PT, CBC #### [address] Auto (RBC) [Mass/Vol]Ordered By: Nasim Segal on 76-28-1854HHFT (RBC) [Mass/Vol]33.6 g/dL32.0-35.0Keenan Private HospitalV [Entitic volume] by Automated countOrdered By: Nasim Segal on 38-19-9531ENF (RBC) [Entitic vol]92.2 jSTgmgtr81-181LccclhoybUniversity Hospitals Beachwood Medical CenterComment on above:Performed By: #### PTT, BMP, PT, CBC #### [facility] [address] [place] [address] USAMonocytes [#/volume] in Blood by Automated countOrdered By: Nasim Segal on 72-68-2485Zmmqtwdqb (Bld) [#/Vol]0.5 10*3/uLNormal0.0-0.8 [facility] CenterComment on above:Performed By: #### PTT, BMP, PT, CBC #### [facility] [address] [place] [id number] USAMonocytes/100 leukocytes in Blood by Automated count Ordered By: Nasim Segal on 77-29-7785Mmjybrsyu/100 WBC (Bld)9.0 %Normal. [facility] CenterComment on above:Performed By: #### PTT, BMP, PT, CBC #### [facility] [address] [place] [address] USANeutrophils [#/volume] in Blood by Automated countOrdered By: Nasim Segal on 80-94-2181Nebutnxemom (Bld) [#/Vol]4.1 10*3/uLNormal1.8-7.7 [facility] CenterComment on above:Performed By: #### PTT, BMP, PT, CBC #### [facility] [address] [place] [id number] USANeutrophils/100 leukocytes in Blood by Automated count Ordered By: Nasim Segal on 25-22-4652Cirscbiaoov/100 WBC (Bld)71.5 %Normal. [facility] CenterComment on above:Performed By: #### PTT, BMP, PT, CBC #### [facility] [address] [place] [id number] USANo Panel InformationOrdered By: Nasim Segal on 93-31-2798Qdfrejgw Creatinine Clearance (ChemN/[facility]uff[facility] HospitalNucleated erythrocytes [Presence] in Blood by Automated countOrdered By: Nasim Segal on 19-73-8921Lsjrlacjx RBC Auto Ql (Bld)0.1 /100{WBC}0-0.5 [facility] Medical CenterPST Type and Screenon 44-97-6879SVB and Rh group Nom (Bld)Blood group O Rh(D) positiveNormalThe [facility] Comment on above:Order Comment: Date of Surgery: [id number] Thromboplastin Timeon 67-43-7176xQNK Coag (Bld) [Time]28.7 iCunncg93.1-36.5The [facility] Physician GroupComment on above:Result Comment: A hematocrit value greater than 55% may lead to inaccurate results in coagulation testing. Patients having hematocrit values >55% require a special collection tube for coagulation studies. Please contact the laboratory at [phone] for redraw instructions. PERFORMED BY: [place] [address] PATHOLOGIST REPAIR WELDER MEGAN S YULIA M.D.Performed By: #### PTT, BMP, PT, CBC #### [facility] [address] [place] [address] USAPlatelet mean volume [Entitic volume] in Blood by Automated countOrdered By: Nasim Segal on 91-60-7553Nqqcobgj mean volume (Bld) [Entitic vol]8.2 fLNormal6.3-10.7FClermont County HospitalComment on above:Performed By: #### PTT, BMP, PT, CBC #### [facility] [address] [place] [address] USAPlatelets [#/volume] in Blood by Automated countOrdered By: Nasim Segal on 36-88-5703Ufkdhfqnj (Bld) [#/Vol]244 10*3/wDNtjryq713-797 [facility] CenterComment on above:Performed By: #### PTT, BMP, PT, CBC #### [place] [address] USAPotassium [Moles/volume] in Serum or PlasmaOrdered By: Nasim Segal on 71-64-2803Ommajvlfj [Moles/Vol]4.0 mmol/LNormal3.5-5.1FClermont County HospitalComment on above:Performed By: #### PTT, BMP, PT, CBC #### [place] [address] USAProthrombin time (PT)Ordered By: Nasim Segal on 89-97-6315SC Coag (PPP) [Time]11.5 sNormal9.0-12.9[facility] CenterComment on above:A hematocrit value greater than 55% may lead to inaccurate results in coagulation testing. Patientshaving hematocrit values >55% require a special collection tube for coagulation studies. Please contact the laboratory at [phone] for redraw instructions.Result Comment: A hematocrit value greater than 55% may lead to inaccurate results in coagulation testing. Patients having hematocrit values >55% require a special collection tube for coagulation studies. Please contact the laboratory at [phone] for redraw instructions.Performed By: #### PTT, BMP, PT, CBC #### [facility] [address] [place] [address] USASerum or plasma anion gap determinationOrdered By: Nasim Segal on 12-33-0755Pjgif gap [Moles/Vol]12.3 mmol/LNormal6.0-15.0[facility] CenterComment on above:Performed By: #### PTT, BMP, PT, CBC #### [facility] [address] [place] [address] USASodium [Moles/volume] in Serum or PlasmaOrdered By: Naism Segal on 38-92-0690Rvlxqs [Moles/Vol]135 mmol/AZod003-837JurrzqfwqUniversity Hospitals Beachwood Medical CenterComment on above:Performed By: #### PTT, BMP, PT, CBC #### [facility] [address] [place] [address] USAUrea nitrogen [Mass/volume] in Serum or PlasmaOrdered By: Nasim Segal on 01-64-8146Nimo nitrogen [Mass/Vol]8 mg/dLNormal7-25[facility] CenterComment on above:Performed By: #### PTT, BMP, PT, CBC #### [facility] [address] [place] [id number] USAaPTT in Platelet poor plasma by Coagulation assayOrdered By: Nasim Segal on 70-42-8805cSXA Coag (PPP) [Time]28.7 s25.1-36.5FClermont County HospitalComment on above:A hematocrit value greater than 55% may lead to inaccurate results in coagulation testing. Patientshaving hematocrit values >55% require a special collection tube for coagulation studies. Please c ontact the laboratory at [phone] for redraw instructions.Basophils Auto (Bld) [#/Vol]Ordered By: Laurita Morales on 89-76-5745Pavoaogyl (Bld) [#/Vol]0.0 10 3/uL0.0-0.1FClermont County HospitalBasophils/100 WBC Auto (Bld)Ordered By: Laurita Morales on 08-70-2561Ullnxuren/100 WBC (Bld)0.6 %0.2-2.0[facility] Medical CenterCholesterol in LDL Calc [Mass/Vol]Ordered By: Laurita Morales on 78-33-8835Rsfrcfqyzie in LDL [Mass/Vol]146.0 mg/dLUniversity Hospitals Beachwood Medical CenterComment on above:<100 mg/dl NBITYXF624-357 mg/dl NEAR OR ABOVE YCCXKVU382-683 mg/dl BORDERLINE HWKM352-580 mg/dl HIGH>190 mg/dl VERY HIGH Cholesterol in VLDL Calc [Mass/Vol]Ordered By: Laurita Morales on 10-20-2024 Cholesterol in VLDL [Mass/Vol]25.8 mg/dLUniversity Hospitals Beachwood Medical Center Eosinophils/100 WBC Auto (Bld)Ordered By: Laurita Morales on 10-20-2024 Eosinophils/100 WBC (Bld)0.3 %Low0.9-7.0[facility] Erythrocyte distribution width Auto (RBC) [Ratio]Ordered By: Laurita Morales on 52-74-7084Mkksvgjkelb distribution width (RBC) [Ratio]14.0 %11.0-15.0[facility] Medical CenterGlobulin Calc (S) [Mass/Vol]Ordered By: Laurita Morales on 15-53-5989Xtvnerqp (S) [Mass/Vol]3.9 g/dLUniversity Hospitals Beachwood Medical Center Glomerular filtration rate (GFR) estimation in non- AmericanOrdered By: Laurita Morales on 88-77-6179UGO/1.73 sq M.predicted among non-blacks MDRD (S/P/Bld) [Vol rate/Area]mL/min/{1.73_m2}>=60 mL/min/1.73m 2FClermont County HospitalHematocrit Auto (Bld) [Volume fraction]Ordered By: Laurita Morales on 47-26-8228Vhmxvnqmvk (Bld) [Volume fraction]40.0 %36.0-48.0[facility] Medical CenterHemoglobin [Mass/volume] in BloodOrdered By: Laurita Morales on 93-42-5463Ylgwqixpkb (Bld) [Mass/Vol]13.0 g/dL12.0-16.0[facility] CenterLaboratory - Chemistry and Chemistry - challengeOrdered By: Laurita Morales on 20-54-8289Xnmexbv [Mass/Vol]4.2 g/dL3.4-5.0[facility] Medical CenterALP [Catalytic activity/Vol]82 U/A37-440VukymayvaUniversity Hospitals Beachwood Medical Center ALT [Catalytic activity/Vol]27 U/D00-62CareanowqUniversity Hospitals Beachwood Medical CenterAST [Catalytic activity/Vol]24 U/O85-37OmoedagiaUniversity Hospitals Beachwood Medical CenterBilirubin [Mass/Vol]0.6 mg/dL0.2-1.0[facility] Medical CenterCalcium [Mass/Vol]9.4 mg/dL8.5-10.1FClermont County HospitalChloride [Moles/Vol]101 mmol/L 98-107[facility] CenterCholesterol [Mass/Vol]249 mg/dLHigh<=200 [facility] CenterCholesterol in HDL [Mass/Vol]78 mg/rGVkws32-07 [facility] CenterComment on above:> or =60 mg/dl - LOW CARDIOVASCULAR RISK<40 mg/dl - HIGH CARDIOVASCULAR RISKCO2 [Moles/Vol]25.2 mmol/L21.0-32.0[facility] Medical CenterCreatinine [Mass/Vol]0.70 mg/dL 0.55-1.02[facility] Medical CenterFree T4 [Mass/Vol]1.16 ng/dL0.76-1.46 [facility] CenterGFR/1.73 sq M.predicted MDRD (S/P/Bld) [Vol rate/Area]mL/min/{1.73_m2}>=60 mL/min/1.73m 2FClermont County Hospital Glucose [Mass/Vol]113 mg/oOYkud37-265EsonyeuaxUniversity Hospitals Beachwood Medical CenterPotassium [Moles/Vol]4.3 mmol/L3.5-5.1FClermont County HospitalProtein [Mass/Vol] 8.1 g/dL6.4-8.2FWyandot Memorial Hospitalodium [Moles/Vol]137 mmol/L 136-145[facility] Medical CenterTriglyceride [Mass/Vol]129 mg/dL<=150 [facility] CenterTSH Qn4.153 m[IU]/LHigh0.358-3.740[facility] CenterUrea nitrogen [Mass/Vol]11.0 mg/dL7.0-18.0[facility] CenterUrea nitrogen/Creatinine [Mass ratio]15.7 mg/mgUniversity Hospitals Beachwood Medical CenterLaboratory - Hematology and Cell countsOrdered By: Laurita Morales on 72-56-5871Fkarombr granulocytes/100 WBC (Bld)0.2 %0.0-0.5FClermont County HospitalLeukocytes [#/volume] corrected for nucleated erythrocytes in Blood by Automated counOrdered By: Laurita Morales on 45-38-1556XFZ corrected for nucl RBC Auto (Bld) [#/Vol]6.5 10 3/uL4.0-11.0[facility] Medical CenterLymphocytes Auto (Bld) [#/Vol]Ordered By: Laurita Morales on 36-15-3628Giscdgnzprf (Bld) [#/Vol]1.1 10 3/uLLow1.2-3.8[facility] Medical CenterLymphocytes/100 WBC Auto (Bld)Ordered By: Laurita Morales on 04-21-4139Ejkohesazlw/100 WBC (Bld)16.9 %Low20.5-60.0[facility] Auto (RBC) [Entitic mass]Ordered By: Laurita Morales on 93-05-2453EWP (RBC) [Entitic mass]30.7 pg26.7-34.0[facility]an Private HospitalHC Auto (RBC) [Mass/Vol]Ordered By: Laurita Morales on 51-79-4689OSMB (RBC) [Mass/Vol]32.5 g/dL29.9-35.2FClermont County HospitalMCV Auto (RBC) [Entitic vol] Ordered By: Laurita Morales on 70-40-8488PKB (RBC) [Entitic vol]94.6 fL81.0-99.0 [facility] CenterMonocytes Auto (Bld) [#/Vol]Ordered By: Laurita Morales on 56-45-1101Nqlxwlryz (Bld) [#/Vol]0.7 10 3/uL0.3-0.8[facility] CenterMonocytes/100 WBC Auto (Bld)Ordered By: Laurita Morales on 10-20-2024 Monocytes/100 WBC (Bld)11.2 %1.7-12.0[facility] Neutrophils Auto (Bld) [#/Vol]Ordered By: Laurita Morales on 30-98-7333Bybcmqmlgjv (Bld) [#/Vol]4.6 10 3/uL1.4-6.5FClermont County HospitalNeutrophils/100 WBC Auto (Bld)Ordered By: Laurita Morales on 49-61-0533Bthjxdkbgqm/100 WBC (Bld) 70.8 %43.0-75.0[facility] CenterNo Panel InformationOrdered By: Laurita Morales on 13-74-5359Kzolckxcqbn # (Auto)0.0 10 3/uL0.0-0.7FClermont County HospitalImmature Granulocyte # (Auto)0.01 10 3/uL0.00-0.03 [facility] Medical CenterPlatelet mean volume Auto (Bld) [Entitic vol] Ordered By: Laurita Morales on 70-59-6230Eloownan mean volume (Bld) [Entitic vol] 9.9 fL9.5-13.5FClermont County HospitalPlatelets Auto (Bld) [#/Vol] Ordered By: Laurita Morales on 88-97-5645Jozrtghnb (Bld) [#/Vol]243 10 3/xC948-150 [facility] CenterRBC Auto (Bld) [#/Vol]Ordered By: Laurita Morales on 64-38-9068QKK (Bld) [#/Vol]4.23 10 6/uL4.20-5.40[facility] Medical Centererum or plasma albumin/globulin mass ratioOrdered By: Laurita Morales on 89-84-2296Ormdayl/Globulin [Mass ratio]1.1 {ratio}[facility] Medical Centererum or plasma anion gap determinationOrdered By: Laurita Morales on 01-88-9932Wvpjm gap [Moles/Vol]15.1 mmol/LFWyandot Memorial Hospitalerum or plasma total cholesterol/high density lipoprotein (HDL) cholesterol mass rat Ordered By: Laurita Morales on 36-94-6280Dqqswadmgrn.total/Cholesterol in HDL [Mass ratio]3.2 {ratio}[facility] CenterComment on above:3.3 - 4.4 LOW RISK4.4 - 7.1 AVERAGE RISK7.1 - 11.0 MODERATE RISK>11.0 HIGH RISKALL BASIC METABOLIC PANELon 54-34-6300Qecfv gap [Moles/Vol]8 mmol/LNOMS HealthcareCalcium [Mass/Vol]9.4 mg/dL8.5 - 10.1 mg/dLNOMS HealthcareChloride [Moles/Vol]103 mmol/L 98 - 107 mmol/LNOMS HealthcareCO2 [Moles/Vol]30.4 mmol/L21.0 - 32.0 mmol/LNOMS HealthcareCreatinine [Mass/Vol]0.75 mg/dL0.55 - 1.02 mg/dLNOKansas City VA Medical Center GFR/1.73 sq M.predicted CKD-EPI (S/P/Bld) [Vol rate/Area]>60>=60 mL/min/1.73m 2 NOMS HealthcareGlucose [Mass/Vol]91 mg/dL74 - 106 mg/dLNOCT HealthcarePotassium [Moles/Vol]4.4 mmol/L3.5 - 5.1 mmol/LNOMS HealthcareSodium [Moles/Vol]137 mmol/L 136 - 145 mmol/LNOMS HealthcareTBH EGFR-NON AF LATVIAN>60>=60 mL/min/1.73m 2 NOMS HealthcareUrea nitrogen [Mass/Vol]11 mg/dL7.0 - 18.0 mg/dLNOKansas City VA Medical Center Urea nitrogen/Creatinine [Mass ratio]14.7 mg/mgNOMS HealthcareCLINISYNCNOMS HealthcareXR Knee - left 1 or 2 Viewson 47-73-3677Ewgniad Result: X-rays AP and lateral of left [...] structures visualized appeared to be adequately ossified. [facility] DurhamRad[facility] Study observation (narrative)[facility] HospitalGastroenterology Office/Clinic Noteon 74-88-6557Lsxdptkxraptuxsl Office/Clinic NoteGastroenterology Office/Clinic Note Chief Complaint Checkup [...] fL (01/15/24) Chloride: 100 mmol/L Low (01/15/24) Emery Absolute: 1.1 E9/L High (01/15/24) CO2: 23 mmol/L (01/15/24) Emery Auto: 10.6 % (01/15/24) Creatinine: 0.6 mg/dL [...] > 30 years, pereira (more content not included)...[facility] ColumbusComment on above:Result Comment: Electronically Signed By: Deepti ALARCON, Martin Khan\.br\Date and Time Signed: 03/20/24 11:30 EST\.br\Electronically Co-Signed By: Jacquie Gauthier MA\.br\Date and Time Co- Signed: 03/20/24 11:29 ESTAmbulatory Visit Summaryon 29-75-2289Fghqcpagmg Visit SummaryAmbulatory Visit Summary ALEXANDRA CERVANTES :1950 [...] EDT With: Deepti ALARCON, Martin Khan Where: [facility] [address] [place] [address]- You Need to Complete the Following [...] you for choosing us for your care. [facility] ColumbusGastroenterology Office/Clinic Noteon 90-43-8430Csswcuiduyhdouvk Office/Clinic NoteGastroenterology Office/Clinic Note Chief Complaint EGD and colonoscopy resutls. [facility] Staff Patient is a(n) 73 year old [...] Time Signed: 01/30/24 14:13 ESTSurgical Pathology Reporton 50-22-3028Lawnxdio Pathology ReportPremier Health Upper [facility] [address] [place] [address]- Surgical Pathology Report Collected Date/Time: 01/15/2024 12:33 [...] is entirely submitted in one cassette. (DC) DC:[facility] Microscopic Description Microscopic examination performed unless gross only specified. The use of one or more reagents in the above tests is regulated as an analyte specific reagent (ASR). The test or tests are ordered following initial H&E microscopic examination. The performance characteristics were determined by the Laboratory of [facility] Surgical Pathology. They have not been cleared or approved by the US Food and Drug Administration. The FDA has determined that such clearance or approval is not necessary. These tests are used for clinical purposes. They should not be regarded as investigational or for research. Appropriate positive and negative controls are performed and are acceptable. [facility] Hospital [facility] ColumbusComment on above:Performed By: #### [id number] #### [facility] [address] [place], [place] [address]Pdtkekmdtad-GH Plus (Client Incubated)on 89-86-3800Xojgf interferon background IA Qn (Bld)0.02 International_Unit/mLInvalid Interpretation Madison HealthComment on above:Performed By: #### [id number] #### [facility] [address] [place], [place] [address]Y. tuberculosis stim IFN-g by CD4+ CD8+ T-cells corrected for background Qn (Bld)0.05 International_Unit/mLInvalid Interpretation [facility] HealthComment on above:Performed By: #### [id number] #### [facility] [address] [place], [place] [address]D. tuberculosis stim IFN-g by CD4+ T-cells corrected for background Qn (Bld)0.02 International_Unit/mLInvalid Interpretation CodeSelect Medical Specialty Hospital - CincinnatiComment on above:Performed By: #### [id number] #### [facility] [address] [place] [address]A. tuberculosis stim IFN-g Ql (Bld) [Interp]NegativeInvalid Interpretation CodeNegativeSelect Medical Specialty Hospital - CincinnatiComment on above:Result Comment: No response to M [...] interferon gamma. Chemiluminescence immunoassay methodology Performed at: [employer] [id number] PhD Kirk Stuartformed By: #### [id number] #### [facility] [address] [place] [address]Utqbweo stimulated gamma interferon corrected for background Qn (Bld)>10.00Invalid Interpretation [facility] HealthComment on above:Performed By: #### [id number] #### [facility] [address] [place] [address]Kqtwfok comment (Unsp spec) [Interp]CommentInvalid Interpretation CodeSelect Medical Specialty Hospital - CincinnatiComment on above:Result Comment: QuantiFERON-TB Gold Plus is [...] a control for the test.Performed By: #### [id number] #### [facility] [address] [place], [place] [address]Ncihqll Panel by PCRon 71-53-2789Wjdqvho Panel by PCRShiga Tox Interp Negative for Shiga Toxin producing E. coliNormalFisher [facility] CHEMISTRYOrdered By: SYSTEM SYSTEM on 62-81-7048Xyhqrer [Mass/Vol]3.7 g/dLNormal 3.3 - 5.0 gm/dLRemisol ChemAlbumin/Globulin [Mass ratio]1.0 {ratio}Low1.1 - 2.2 Remisol ChemALP [Catalytic activity/Vol]84 [iU]/oSpislq75 - 98 Int._Unit/L Remisol ChemALT No additional P-5'-P [Catalytic activity/Vol]15 [iU]/dNormal6 - 46 Int._Unit/LRemisol ChemAnion gap [Moles/Vol]15 mmol/LNormal6 - 16 mEq/L Remisol ChemAST [Catalytic activity/Vol]14 [iU]/dNormal5 - 43 Int._Unit/LRemisol ChemBilirubin [Mass/Vol]0.7 mg/dLNormal0.0 - 1.1 mg/dLRemisol ChemCalcium [Mass/Vol]9.2 mg/dLNormal8.9 - 11.1 mg/dLRemisol ChemChloride [Moles/Vol]100 mmol/EFea436 - 111 mmol/LRemisol ChemCO2 [Moles/Vol]23 mmol/ZMqhros66 - 31 mmol/LRemisol ChemCreatinine [Mass/Vol]0.6 mg/dLNormal0.5 - 1.3 mg/dLRemisol ChemCRP [Mass/Vol]6.0 mg/dLHigh<=1.9mg/dLRemisol CicjbAKW64 mL/min/1.73 a2Ldgvkn >=59mL/min/1.73 k3Hccfttl ChemGlobulin (S) [Mass/Vol]3.7 g/dLNormal1.4 - 4.0 gm/dLRemisol ChemGlucose [Mass/Vol]91 mg/fAFenwjq83 - 199 mg/dLRemisol Chem Potassium [Moles/Vol]3.5 mmol/LNormal3.5 - 5.3 mmol/LRemisol ChemProtein [Mass/Vol]7.4 g/dLNormal6.0 - 7.8 gm/dLRemisol ChemSodium [Moles/Vol]134 mmol/L Nmd979 - 145 mmol/LRemisol ChemUrea nitrogen [Mass/Vol]7 mg/dLNormal5 - 21 mg/dL Remisol ChemUrea nitrogen/Creatinine [Mass ratio]12 mg/qbEsqmsw22 - 20Remisol ChemHEMATOLOGYOrdered By: Fabian Silva on 22-00-0536Uxfcgxvyt/100 WBC (Bld)0.5 % Normal0.0 - 2.0 %Remisol HemeBasophils/Leukocytes Auto (Bld) [Pure # fraction] 0.1 E9/LNormal0.0 - 0.2 E9/LRemisol HemeEosinophils (Bld) [#/Vol]0.1 E9/LNormal 0.0 - 0.5 E9/LRemisol HemeEosinophils/100 WBC (Bld)0.7 %Normal0.0 - 8.0 %Remisol HemeErythrocyte distribution width (RBC) [Ratio]18.3 %High10.9 - 14.2 %Remisol HemeHematocrit (Bld) [Volume fraction]36.7 %Byleaw24.0 - 46.0 %Remisol Heme Hemoglobin (Bld) [Mass/Vol]12.6 g/kSFkshre54.0 - 16.0 gm/dLRemisol Heme Lymphocytes (Bld) [#/Vol]1.1 E9/LNormal1.0 - 4.0 E9/LRemisol HemeLymphocytes/100 WBC (Bld)11.0 %Low14.0 - 50.0 %Remisol HemeMCH (RBC) [Entitic mass]29.3 pg Ndjjnd90.0 - 34.0 pgRemisol HemeMCHC (RBC) [Mass/Vol]34.3 g/xVYcxeha82.4 - 36.0 gm/dLRemisol HemeMCV (RBC) [Entitic vol]85.6 gOXtedfk17.0 - 100.0 fLRemisol Heme Monocytes (Bld) [#/Vol]1.1 E9/LHigh0.2 - 1.0 E9/LRemisol HemeMonocytes/100 WBC (Bld)10.6 %Normal4.0 - 14.0 %Remisol HemeNeutrophils (Bld) [#/Vol]7.7 E9/LHigh 2.0 - 7.5 E9/LRemisol HemeNeutrophils/100 WBC (Bld)77.2 %High36.0 - 75.0 % Remisol HemePlatelet mean volume (Bld) [Entitic vol]7.5 fLNormal6.4 - 10.8 fL Remisol HemePlatelets (Bld) [#/Vol]324.0 E9/TKxuagq740.0 - 500.0 E9/LRemisol HemeRBC (Bld) [#/Vol]4.3 E12/LNormal4.3 [...] testing of samples in close time sequence.Normal NegativeSelect Medical Specialty Hospital - CincinnatiComment on above:Result Comment: This test result should be correlated with clinical presentations and medical history by a healthcare provider to determine its clinical significance.\.br\.br\Other Comment: Order added by Discern Expert.Clostridium difficile by PCRNegative NormalNegativeSelect Medical Specialty Hospital - CincinnatiComment on above:Order Comment: Order added by Discern Expert.Result Comment: This test result should be correlated with clinical presentations and medical history by a healthcare provider to determine its clinical significance.Performed By: #### [id number] #### [facility] [address] [place] [id number] PCRon 12-06-2023. difficile toxin A+B Ql (Stl)No, PCR to followNormalSelect Medical Specialty Hospital - CincinnatiComment on above:Performed By: #### [id number] #### [facility] [address], [place] [address]URgrt PCROrder Cancelled Specimen has been found to be acceptable for C. difficile testing.[facility] ColumbusEnteric Panel by PCRon 12-06-2023. coli+jejuni+upsaliensis DNA ADELITA+non-probe Ql (Stl)Not detectedNoWayne HospitalComment on above:Result Comment: Testing was performed utilizing reverse camera mechanic (RT), polymerase chain reaction (PCR), and array [...] tested by Verigene nulcleic acidtest.Performed By: #### [id number] #### [facility] [address], [place] [address]Y. coli stx1+stx2 genes ADELITA+non-probe Ql (Stl)NegativeNormal [facility] CincinnatiComment on above:Performed By: #### [id number] #### [facility] [address], [place] [address]Stgigzj Panel by PCRShiga Tox Interp Negative for Shiga Toxin producing E. coliNoWayne Hospital Enteric Panel Intrl QCPassNoWayne HospitalComment on above: Result Comment: Testing was performed utilizing reverse camera mechanic (RT), polymerase chain reaction (PCR), and array [...] Shiga toxins 1 and 2.Performed By: #### [id number] #### [facility] [address] [place] [address]Qktpmmtso genogroup I+II RNA ADELITA+non-probe Ql (Stl)Not detected [facility] ColumbusComment on above:Performed By: #### [id number] #### [facility] [address], [place] [address]Gthndzrui A RNA ADELITA+non-probe Ql (Stl)Not detectedNoWayne HospitalComment on above:Performed By: #### [id number] #### [facility] [address] [place] [address]A. enterica+bongori DNA ADELITA+non-probe Ql (Stl)Not detected [facility] ColumbusComment on above:Result Comment: This test result should be correlated with clinical presentations and medical history by a healthcare provider to determine its clinical significance.Performed By: #### [id number] #### [facility] [address], [place] [address]Nlspurxq species+EIEC invasion plasmid antigen H ipaH gene ADELITA+non-probe Ql (Stl)Not detectedNoWayne HospitalComment on above:Performed By: #### [id number] #### [facility] [address] [place] [address]C. cholerae+parahaemolyticus+vulnificus DNA ADELITA+non-probe Ql (Stl)Not detectedNormalSelect Medical Specialty Hospital - CincinnatiComment on above:Performed By: #### [id number] #### [facility] [address], [place] [address]T. enterocolitica DNA ADELITA+non-probe Ql (Stl)Not detectedNormal [facility] CincinnatiComment on above:Performed By: #### [id number] #### [facility] [address], [place] [address]Dbgcep Disease Comprehensiveon [id number] IgA Ql (S) NegativeInvalid Interpretation CodeNegativeSelect Medical Specialty Hospital - CincinnatiComment on above:Performed By: #### [id number] #### [facility] [address] [place] [address]Oexiywj peptide IgA Qn (S)4 unit(s)Invalid Interpretation Code 0-19[facility] - CincinnatiComment on above:Result Comment: Negative 0 - 19 Weak Positive 20 - 30 Moderate to Strong Positive >30Performed By: #### [id number] #### [facility] [address] [place] [address]Cjzglav peptide IgG Qn (S)3 unit(s)Invalid Interpretation Code 0-19[facility] - CincinnatiComment on above:Result Comment: Negative 0 - 19 Weak Positive 20 - 30 Moderate to Strong Positive >30Performed By: #### [id number] #### [facility] [address], [place] [address]GxF [Mass/Vol]248 mg/dLInvalid Interpretation [id number] Medical Specialty Hospital - CincinnatiComment on above:Result Comment: Performed at: [facility] [address] [place] [id number] PhD Kirk CmPerformed By: #### [id number] #### [facility] [address], [place] [address]kVE IgA Qn (S)<2Invalid Interpretation Code0-3FChildren's Hospital of ColumbusComment on above:Result Comment: Negative 0 - 3 Weak Positive 4 - 10 Positive >10 Tissue Transglutaminase (tTG) has been identified as the endomysial antigen. Studies have demonstr- ated that endomysial IgA antibodies have over 99% specificity for gluten sensitive enteropathy.Performed By: #### [id number] #### [facility] [address], [place] [address]gOG IgG Qn (S)5 unit/mLInvalid Interpretation Code0-5[facility] CenterComment on above:Result Comment: Negative 0 - 5 Weak Positive 6 - 9 Positive >9Performed By: #### [id number] #### [facility] [address] [place] [id number] By: SYSTEM SYSTEM on 49-33-1095DRN Qn1.76 m[IU]/LNormal0.34 - 5.60 mcIU/mLRemisol ChemTSHon [id number] Qn1.76 m[IU]/L Normal0.34-5.60[facility] CenterComment on above:Performed By: #### [id number] #### [facility] [address], [place] [address]BSO AUTO DIFFon 79-97-5688EICY #0.1 103/ulNormal0.0-0.1[facility]tering [facility] SpringfieldComment on above:Performed By: #### CBC #### [facility] [address] [place] [address] Dr. Scooby Bazansophils/100 WBC (Bld)0.5 %Normal0.2-2.0The [facility] Comment on above:Performed By: #### CBC #### [facility] [address] [place] [address] Dr. Scooby Bynum #0.0 103/ulNormal0.0-0.7The [facility] CenterComment on above: Performed By: #### CBC #### [facility] [address] [place] [address] Dr. Scooby Garciaosinophils/100 WBC (Bld)0.1 %Critically low0.9-7.0The [facility] CenterComment on above:Performed By: #### CBC #### [facility] [address] [place] [address] Dr. Scooby Garciarythrocyte distribution width (RBC) [Ratio]15.1 %Critically high 11.0-15.0The [facility] CenterComment on above:Performed By: #### CBC #### [facility] [address] [place] [address] Dr. Scooby IrvinHematocrit (Bld) [Volume fraction]39.4 %Vcuced40.0-48.0The [facility] CenterComment on above:Performed By: #### CBC #### [facility] [address] [place] [address] Dr. Scooby IrvinHemoglobin (Bld) [Mass/Vol]12.6 g/uUOkwrrs11.0-16.0The [facility] CenterComment on above:Performed By: #### CBC #### [facility] [address] [place] [address] Dr. Scooby Nicholson #0.05 10e3/ulCritically high0.00-0.03The [facility] Comment on above:Performed By: #### CBC #### [facility] [address] [place] [address] Dr. Scooby Nicholson %0.5 %Normal0.0-0.5The [facility] CenterComment on above: Performed By: #### CBC #### [facility] [address] [place] [address] Dr. Scooby RolandH #1.3 103/ulNormal1.2-3.8The [facility] CenterComment on above:Performed By: #### CBC #### [facility] [address] [place] [address] Dr. Scooby Laomphocytes/100 WBC (Bld)13.2 %Critically low20.5-60.0The [facility] CenterComment on above:Performed By: #### CBC #### [facility] [address] [place] [address] Dr. Scooby Weiner DIFF REQNONormalThe [facility] CenterComment on above: Performed By: #### CBC #### [facility] [address] [place] [address] Dr. Scooby Bob (RBC) [Entitic mass]30.0 zhUtunux57.7-34.0The [facility] CenterComment on above:Performed By: #### CBC #### [facility] [address] [place] [address] Dr. Scooby Bob (RBC) [Mass/Vol]32.0 g/kGIvfaus70.9-35.2The [facility] CenterComment on above:Performed By: #### CBC #### [facility] [address] [place] [address] Dr. Scooby Bob (RBC) [Entitic vol]93.8 fUEtyykh32.0-99.0The [facility] CenterComment on above:Performed By: #### CBC #### [facility] [address] [place] [address] Dr. Scooby Page #0.7 103/ulNormal0.3-0.8The [facility] CenterComment on above:Performed By: #### CBC #### [facility] [address] [place] [address] Dr. Scooby Arevaloocytes/100 WBC (Bld)7.2 %Normal1.7-12.0[facility] Comment on above:Performed By: #### CBC #### [facility] [address] [place] [address] Dr. Scooby Chino #7.5 103/ulCritically high1.4-6.5The [facility] Comment on above:Performed By: #### CBC #### [facility] [address] [place] [address] Dr. Scooby Lozanoutrophils/100 WBC (Bld)78.5 %Critically high43.0-75.0The [facility] CenterComment on above:Performed By: #### CBC #### [facility] [address] [place] [address] Dr. Scooby Johnsonlet mean volume (Bld) [Entitic vol]9.9 fLNormal9.5-13.5The [facility] Systemment on above:Performed By: #### CBC #### [facility] [address] [place] [address] Dr. Scooby IrvinPLT230 103/kkBgeivy416-809Vsd [facility] CenterCommclaren [facility] [place] on above: Performed By: #### CBC #### [facility] [address] [place] [address] Dr. Scooby IrvinRBC4.20 106/ulNormal4.20-5.40The [facility] CenterCommclaren [facility] [place] on above:Performed By: #### CBC #### [facility] [address] [place] [address] Dr. Scooby IrvinWBC9.5 103/ulNormal4.0-11.0The [facility] CenterCommclaren [facility] [place] on above: Performed By: #### CBC #### [facility] [address] [place] [address] Dr. Scooby IrvinPROF 14(COMP METB)on 75-37-7214Rhmnvwb [Mass/Vol]3.9 g/dLNormal 3.4-5.0The [facility] on above:Performed By: #### CBC #### [facility] [address] [place] [address] Dr. Scooby IrvinAlbumin/Globulin [Mass ratio]1.0 {ratio}NormalThe [facility] CenterCommclaren [facility] [place] on above:Performed By: #### CBC #### [facility] [address] [place] [address] Dr. Scooby Veloz [Catalytic activity/Vol]87 U/WOidwpl14-677Bku [facility] on above:Performed By: #### CBC #### [facility] [address] [place] [address] Dr. Scooby Solorio [Catalytic activity/Vol]29 U/GDtybrw93-07Kiy [facility] CenterCommclaren [facility] [place] on above:Performed By: #### CBC #### [facility] [address] [address] [address] Scooby Shultz gap [Moles/Vol]14.1 mmol/LNormalKettering Health Springfield Comment on above:Performed By: #### CBC #### [facility] [address] [address] [address] Scooby IrvinAST [Catalytic activity/Vol]38 U/LCritically fwzr95-89Yob [facility] CenterComment on above:Performed By: #### CBC #### [facility] [address] [address] [address] Scooby IrvinBilirubin [Mass/Vol]0.5 mg/dLNormal0.2-1.0The [facility] Comment on above:Performed By: #### CBC #### [facility] [address] [address] [address] Scooby IrvinCalcium [Mass/Vol]9.2 mg/dLNormal8.5-10.1The [facility] Comment on above:Performed By: #### CBC #### [facility] [address] [address] [address] Scooby IrvinChloride [Moles/Vol]102 mmol/ZSckbxh94-003Wgy [facility] Comment on above:Performed By: #### CBC #### [facility] [address] [address] [address] Scooby IrvinCO2 [Moles/Vol]25.7 mmol/JXmopfz67.0-32.0The [facility] Comment on above:Performed By: #### CBC #### [facility] [address] [place] [address] Dr. Scooby IrvinCreatinine [Mass/Vol]0.76 mg/dLNormal0.55-1.02The [facility] CenterComment on above:Performed By: #### CBC #### [facility] [address] [address] [address] Scooby GarciaGFR-AF LATVIAN>60Normal>=60The [facility] CenterComment on above:Performed By: #### CBC #### [facility] [address] [address] [address] Scooby GarciaGFR-NON AF LATVIAN>60Normal>=60The [facility] CenterComment on above:Performed By: #### CBC #### [facility] [address] [address] [address] Scooby IrvinGlobulin (S) [Mass/Vol]3.8 g/dLNormMercy Health St. Vincent Medical CenterComment on above:Performed By: #### CBC #### [facility] [address] [address] [address] Scooby IrvinGlucose [Mass/Vol]104 mg/fBLgdmxc65-730Qkg [facility] Comment on above:Performed By: #### CBC #### [facility] [address] [place] [address] Dr. Scooby IrvinPotassium [Moles/Vol]4.8 mmol/LNormal3.5-5.1The [facility] Comment on above:Performed By: #### CBC #### [facility] [address] [place] [address] Dr. Scooby IrvinProtein [Mass/Vol]7.7 g/dLNormal6.4-8.2The [facility] Comment on above:Performed By: #### CBC #### [facility] [address] [place] [address] Dr. Scooby IrvinSodium [Moles/Vol]137 mmol/JJzpbqa765-147Qfc [facility] Comment on above:Performed By: #### CBC #### [facility] [address] [place] [address] Dr. Scooby IrvinUrea nitrogen [Mass/Vol]9.0 mg/dLNormal7.0-18.0The [facility] CenterComment on above:Performed By: #### CBC #### [facility] [address] [place] [address] Dr. Scooby Arroyo nitrogen/Creatinine [Mass ratio]11.8 mg/mgNormMercy Health St. Vincent Medical CenterComment on above:Performed By: #### CBC #### [facility] [address] [place] [address] Dr. Scooby IrvinLIPID PROFILEon 86-79-9569QBFF-HDL RATIO NORMSEE [facility] AndersonCommclaren [facility] [place] on above:Result Comment: 3.3 - 4.4 LOW RISK 4.4 - 7.1 AVERAGE RISK 7.1 - 11.0 MODERATE RISK >11.0 HIGH RISKPerformed By: #### CMP, LIPID #### [facility] [address] [address] [address] Scooby IrvinCholesterol [Mass/Vol]235 mg/dLCritically high<=200The [facility] on above:Performed By: #### CMP, LIPID #### [facility] [address] [address] [address] Scooby IrvinCholesterol in HDL [Mass/Vol]65 mg/dLCritically olbq88-46SpgBarberton Citizens Hospital on above:Performed By: #### CMP, LIPID #### [facility] [address] [address] [address] Scooby IrvinCholesterol in LDL [Mass/Vol]156.8 mg/dLOhioHealth Southeastern Medical CenterCommclaren central [place] on above:Performed By: #### CMP, LIPID #### [facility] [address] [place] [address] Dr. Scooby Lobatoesterlevi.total/Cholesterol in HDL [Mass ratio]3.6 {ratio} NormalBarberton Citizens Hospital on above:Performed By: #### CMP, LIPID #### [facility] [address] [address] [address] Scooby Maki NORMAL> or = 60 mg/dl - LOW CARDIOVASCULAR RISK <40 mg/dl - HIGH CARDIOVASCULAR RISKOhioHealth Southeastern Medical CenterCommclaren [place] on above:Performed By: #### CMP, LIPID #### [facility] [address] [address] [address] Scooby IrvinLDL CALC NORMALSEE [facility]Commcl[facility] [place] on above:Result Comment: <100 mg/dl OPTIMAL 100 - 129 mg/dl NEAR OR ABOVE OPTIMAL 130 - 159 mg/dl BORDERLINE HIGH 160 - 189 mg/dl HIGH >190 mg/dl VERY HIGH Performed By: #### CMP, LIPID #### [facility] [address] [address] [address] Scooby IrvinTriglyceride [Mass/Vol]66 mg/dLNormal<=150The [facility] Comment on above:Performed By: #### CMP, LIPID #### [facility] [address] [address] [address] Scooby IrvinVLDL CALC13.2 mg/dLNormalThe [facility] CenterComment on above: Performed By: #### CMP, LIPID #### [facility] [address] [address] [address] Scooby IrvinPROF 14(COMP METB)on 04-96-4543Pwujwto [Mass/Vol]3.9 g/dLNormal 3.4-5.0The [facility] CenterComment on above:Performed By: #### CMP, LIPID #### [facility] [address] [place] [address] Dr. Scooby IrvinAlbumin/Globulin [Mass ratio]1.1 {ratio}NormalThe [facility] CenterComment on above:Performed By: #### CMP, LIPID #### [facility] [address] [place] [address] Dr. Scooby Veloz [Catalytic activity/Vol]87 U/BVhldse40-842Stw [facility] CenterComment on above:Performed By: #### CMP, LIPID #### [facility] [address] [place] [address] Dr. Scooby Solorio [Catalytic activity/Vol]27 U/XIjamzq11-74Bpt [facility] CenterComment on above:Performed By: #### CMP, LIPID #### [facility] [address] [place] [address] Dr. Scooby Shultz gap [Moles/Vol]16.9 mmol/LNormalThe [facility] Comment on above:Performed By: #### CMP, LIPID #### [facility] [address] [place] [address] Dr. Scooby IrivnAST [Catalytic activity/Vol]21 U/CNvawsh31-96Xmt [facility] CenterComment on above:Performed By: #### CMP, LIPID #### [facility] [address] [address] [address] Scooby IrvinBilirubin [Mass/Vol]0.4 mg/dLNormal0.2-1.0The [facility] Comment on above:Performed By: #### CMP, LIPID #### [facility] [address] [address] [address] Scooby IrvinCalcium [Mass/Vol]8.7 mg/dLNormal8.5-10.1The [facility] Comment on above:Performed By: #### CMP, LIPID #### [facility] [address] [address] [address] Scooby IrvinChloride [Moles/Vol]102 mmol/HRiykwl79-184Ilo [facility] Comment on above:Performed By: #### CMP, LIPID #### [facility] [address] [place] [address] Dr. Scooby IrvinCO2 [Moles/Vol]22.0 mmol/IRiroqt88.0-32.0The [facility] Comment on above:Performed By: #### CMP, LIPID #### [facility] [address] [address] [address] Scooby IrvinCreatinine [Mass/Vol]0.73 mg/dLNormal0.55-1.02The [facility] CenterComment on above:Performed By: #### CMP, LIPID #### [facility] [address] [address] [address] Scooby GarciaGFR-AF LATVIAN>60Normal>=60The [facility] CenterComment on above:Performed By: #### CMP, LIPID #### [facility] [address] [place] [address] Dr. Scooby GarciaGFR-NON AF LATVIAN>60Normal>=60The [facility] CenterComment on above:Performed By: #### CMP, LIPID #### [facility] [address] [address] [address] Scooby IrvinGlobulin (S) [Mass/Vol]3.7 g/dLNormalThe [facility] CenterComment on above:Performed By: #### CMP, LIPID #### [facility] [address] [address] [address] Scooby IrvinGlucose [Mass/Vol]105 mg/qWFllxbo34-802Euh [facility] Comment on above:Performed By: #### CMP, LIPID #### [facility] [address] [address] [address] Scooby IrvinPotassium [Moles/Vol]3.9 mmol/LNormal3.5-5.1The [facility] Comment on above:Performed By: #### CMP, LIPID #### [facility] [address] [place] [address] Dr. Scooby IrvinProtein [Mass/Vol]7.6 g/dLNormal6.4-8.2The [facility] Comment on above:Performed By: #### CMP, LIPID #### [facility] [address] [place] [address] Dr. Scooby IrvinSodium [Moles/Vol]137 mmol/MZozqbc375-805Atd [facility] Comment on above:Performed By: #### CMP, LIPID #### [facility] [address] [place] [address] Dr. Scooby IrvinUrea nitrogen [Mass/Vol]11.0 mg/dLNormal7.0-18.0The [facility] CenterComment on above:Performed By: #### CMP, LIPID #### [facility] [address] [place] [address] Dr. Scooby IrvinUrea nitrogen/Creatinine [Mass ratio]15.1 mg/mgNormalThe [facility] CenterComment on above:Performed By: #### CMP, LIPID #### [facility] [address] [place] [address] Dr. Scooby Corral 77-81-0946OIF7.198 uIU/mLNormal0.358-3.740The [facility] CenterComment on above:Performed By: #### TSH #### [facility] [address] [place] [address] Dr. Scooby Lassiterd-19 PCR (CVDTBH)on 57-31-2780VGZP-CoV-2 (COVID-19) RNA ADELITA+probe Ql (Unsp spec)Not detectedNormalNOT DETECTEDThe [facility] Comment on above:Result Comment: This test is not yet approved or cleared by the [place] FDA. When there are no FDA-approved or cleared tests available, and other criteria are met, FDA can make tests available under an emergency access mechanism called an Emergency Use Authorization (EUA). The EUA for this test is supported by the Electric Switch Repairer of Health and Human Service's (HHS's) declaration [...] consistent with SARS-CoV-2.Performed By: #### CBC #### [facility] [address] [place] [address] Dr. Scooby Corral 23-42-2721RZZ4.326 uIU/mLNormal0.358-3.740The [facility] CenterComment on above:Performed By: #### CBC #### [facility] [address] [place] [address] Dr. Scooby Nguyễn [facility] HOSPITALNoSt. Vincent HospitalComment on above: Result Comment: <0.34 UIU/ml HYPERTHYROID 0.34-5.60 UIU/ml EUTHYROID >5.60 UIU/ml HYPOTHYROIDPerformed By: #### CBC #### [facility] [address] [place] [address] Dr. Scooby IrvinBasophils Auto (Bld) [#/Vol]Ordered By: Luis Gutierrez on 59-18-3883Lzpbvhalu (Bld) [#/Vol]0.1 10*3/uL0.0-0.2FClermont County HospitalBasophils/100 WBC Auto (Bld)Ordered By: Luis Gutierrez on 05-26-2021 Basophils/100 WBC (Bld)0.9 %[facility] CenterBlood hemoglobin measurement (mass/volume)Ordered By: Luis Gutierrez on 16-27-2942Ptdfucpkjz (Bld) [Mass/Vol]12.4 g/dL11.8-15.4FClermont County HospitalBlood leukocytes automated count (number/volume)Ordered By: Luis Gutierrez on 97-17-6812FQW (Bld) [#/Vol]8.8 10*3/uL4.5-11.0[facility] COVID-19 Positive/NegativeOrdered By: Luis Gutierrez on 18-71-3543QDNP-CoV-2 (COVID-19) N gene ADELITA+probe Ql (Resp)NegativeNegativeUniversity Hospitals Beachwood Medical CenterComment on above:Testing for SARS-CoV-2 by RT-PCRThis test was developed and its performance characteristics determined by [employer] and validated at the [facility]. This test has not been [...] rate.predicted panel (S/P/Bld)Ordered By: Luis Gutierrez on 58-49-0557Zqkvdpfkvs [Mass/Vol]0.66 mg/dL0.44-1.03[facility] CenterEosinophils Auto (Bld) [#/Vol]Ordered By: Luis Gutierrez on 04-77-9621Xwzmbpdnysh (Bld) [#/Vol]0.0 10*3/uL0.0-0.45[facility] CenterEosinophils/100 WBC Auto (Bld)Ordered By: Luis Gutierrez on 87-85-0294Edvzfnsuluu/100 WBC (Bld)0.2 %[facility] Erythrocyte distribution width Auto (RBC) [Ratio]Ordered By: Luis Gutierrez on 47-41-9574Rnihiprwfgr distribution width (RBC) [Ratio]16.1 %11.9-15.3FClermont County HospitalEstimated glomerular filtration rate (GFR) non- AmericanOrdered By: Luis Gutierrez on 24-44-8115AEU/1.73 sq M.predicted among non-blacks MDRD (S/P/Bld) [Vol rate/Area]> 60 mL/MinUniversity Hospitals Beachwood Medical CenterHematocrit Auto (Bld) [Volume fraction]Ordered By: Luis Gutierrez on 22-41-4552Rmyhgkuwzf (Bld) [Volume fraction]37.5 %34.0-46.4FClermont County HospitalLaboratory - Hematology and Cell countsOrdered By: Luis Gutierrez on 01-15-2173Qjcvdiukh RBC/100 WBC (Bld) [Ratio]0.1 %0-0.5FClermont County HospitalLymphocytes Auto (Bld) [#/Vol]Ordered By: Luis Gutierrez on 73-25-0123Epodjitwtya (Bld) [#/Vol]1.4 10*3/uL1.00-4.8[facility] Medical CenterLymphocytes/100 WBC Auto (Bld)Ordered By: Luis Gutierrez on 05-26-2021 Lymphocytes/100 WBC (Bld)15.8 %[facility] Auto (RBC) [Entitic mass]Ordered By: Luis Gutierrez on 13-35-0086TIE (RBC) [Entitic mass] 29.2 pg24.7-34.3FClermont County HospitalMCHC Auto (RBC) [Mass/Vol] Ordered By: Luis Gutierrez on 31-52-6762UYKB (RBC) [Mass/Vol]33.1 g/dL32.0-35.0 [facility] Medical CenterMCV Auto (RBC) [Entitic vol]Ordered By: Luis Gutierrez on 22-56-8697MPL (RBC) [Entitic vol]88.3 wZ79-787AonicqekvUniversity Hospitals Beachwood Medical CenterMonocytes Auto (Bld) [#/Vol]Ordered By: Luis Gutierrez on 19-48-9263Zalffxher (Bld) [#/Vol]0.7 10*3/uL0.0-0.8[facility] Medical CenterMonocytes/100 WBC Auto (Bld)Ordered By: Luis Gutierrez on 05-26-2021 Monocytes/100 WBC (Bld)7.7 %[facility] Medical CenterNeutrophils Auto (Bld) [#/Vol]Ordered By: Luis Gutierrez on 53-37-0549Nrjdawmgnyo (Bld) [#/Vol] 6.7 10*3/uL1.8-7.7FClermont County HospitalNeutrophils/100 WBC Auto (Bld)Ordered By: Luis Gutierrez on 46-12-3483Imjkpfgykoy/100 WBC (Bld)75.4 % [facility] CenterNo Panel InformationOrdered By: Luis Gutierrez on 19-48-4293Vlfghgnfp GFR ()> 60 mL/MinUniversity Hospitals Beachwood Medical CenterComment on above:GFR estimated reference range: According to KDOQI guidelines, <60 ml/min/1.73m2 is sufficient todiagnose a patient with chronic kidney disease.Pharmacy Creatinine Clearance (ChemN/[facility] HospitalPlatelet mean volume Auto (Bld) [Entitic vol]Ordered By: Luis Gutierrez on 82-12-9587Ipsplaul mean volume (Bld) [Entitic vol]8.6 fL6.3-10.7FClermont County HospitalPlatelets Auto (Bld) [#/Vol]Ordered By: Luis Gutierrez on 46-18-9802Togfmyhvr (Bld) [#/Vol]241 10*3/iS326-635NenxzkcwfUniversity Hospitals Beachwood Medical CenterRBC Auto (Bld) [#/Vol]Ordered By: Luis Gutierrez on 83-37-7491SUN (Bld) [#/Vol]4.24 10*6/uL3.60-5.00[facility] Medical Centererum or plasma calcium measurement (mass/volume)Ordered By: Luis Gutierrez on 05-26-2021 Calcium [Mass/Vol]9.4 mg/dL8.2-10.2FWyandot Memorial Hospitalerum or plasma chloride measurement (moles/volume)Ordered By: Luis Gutierrez on 76-71-2632Zaarcwba [Moles/Vol]105 mmol/D12-688XblfchdldUniversity Hospitals Beachwood Medical Center Serum or plasma glucose measurement (mass/volume)Ordered By: Luis Gutierrez on 45-63-3778Qqfrtlt [Mass/Vol]89 mg/dX05-389WyrzjllcoUniversity Hospitals Beachwood Medical Center Comment on above:ADA recommended reference rangeRandom Glucose Reference Range is dependent on time and content of last meal. Glucose of more than 200 mg/dL in a nonstressed, ambulatory subject supports the diagnosisof Diabetes Mellitus. Serum or plasma intact parathyroid hormone measurement (mass/volume)Ordered By: Luis Gutierrez on 65-44-4010Zotgdistnw.intact [Mass/Vol]31.2 pg/mL12-88 [facility] Centererum or plasma potassium measurement (moles/volume)Ordered By: Luis Gutierrez on 98-02-1883Aahggyzgu [Moles/Vol]4.0 mmol/L3.5-5.1FWyandot Memorial Hospitalerum or plasma sodium measurement (moles/volume)Ordered By: Luis Gutierrez on 37-77-5199Rlnxkx [Moles/Vol]137 mmol/C456-733OdfvlpmibLakeHealth TriPoint Medical Centererum or plasma total carbon dioxide measurement (moles/volume)Ordered By: Luis Gutierrez on 82-26-0497VR0 [Moles/Vol]23.0 mmol/L22.0-30.0[facility] Medical Centererum or plasma urea nitrogen measurement (mass/volume)Ordered By: Luis Gutierrez on 05-26-2021 Urea nitrogen [Mass/Vol]10 mg/dL9-23[facility] CenterTS DL <= 0.005 mIU/L QnOrdered By: Luis Gutierrez on 28-40-8253DSY Qn0.86 m[IU]/L 0.45-5.33[facility] CenterMG MAMM SCREEN 3D GEORGES CADon 05-22-2021 MG MAMM SCREEN 3D GEORGES CADPatient: ALEXANDRA CERVANTES Exam Date: 05/22/2021 : 1950 Gender:F Ordering : DR LAURITA MORALES M.D. Admission #: [id number] Family : Order #: [id number] CLICK HERE TO VIEW EXAM RADIOLOGY REPORT PROCEDURE: MAMMOGRAM SCREENING 3D BILATERAL CAD COMPARISON: MG MAMM SCREEN GEROGES W CAD, 05/16/2017. MG MAMM SCREEN GEORGES W CAD, 05/19/2018. INDICATIONS: Screening mammography Calculator Name NCI Breast Cancer Risk Assessment Tool 5 Year Breast Cancer Risk 2.20% Lifetime Breast Cancer Risk 5.30% Personal Breast Cancer No Personal Ovarian Cancer No Treatments None Family Cancers None LOCATION: [facility] BREAST COMPOSITION: Scattered areas fibroglandular [...] by: Lonny Killian MD on 05/22/2021 at 12:06[facility] CenterCT Chest w/Contraston 32-84-8307AA Chest w/ContrastPlease see CT neck report dated: 05/17/2021. Report reported and signed by Fuentes Lion on 05/22/2021 1528NormalNortbenson hospitaln [facility]S Medical CenterCT Soft Tissue Neck w/ Contrast*on 61-37-7033SS Soft Tissue Neck w/ Contrast*CLINICAL HISTORY: Mediastinal [...] signed by Fuentes Lion on 05/22/2021 1528NormalNorthern Wisconsin Medical SpecialistCBC AUTO DIFFon 87-59-3986BFBA #0.1 103/ulNormal0.0-0.1 The [facility] CenterComment on above:Performed By: #### CBC #### [facility] [address] [address] [address] Scooby IrvinBasophils/100 WBC (Bld)0.4 %Normal0.2-2.0The [facility] Comment on above:Performed By: #### CBC #### [facility] [address] [address] [address] Scooby Bynum #0.0 103/ulNormal0.0-0.7The [facility] CenterComment on above: Performed By: #### CBC #### [facility] [address] [address] [address] Scooby Garciaosinophils/100 WBC (Bld)0.2 %Critically low0.9-7.0The [facility] CenterComment on above:Performed By: #### CBC #### [facility] [address] [place] [address] Dr. Scooby Garciarythrocyte distribution width (RBC) [Ratio]16.7 %Critically high 11.0-15.0The [facility] CenterComment on above:Performed By: #### CBC #### [facility] [address] [place] [address] Dr. Scooby IrvinHematocrit (Bld) [Volume fraction]37.6 %Oyszel62.0-48.0The [facility] CenterComment on above:Performed By: #### CBC #### [facility] [address] [place] [address] Dr. Scooby IrvinHemoglobin (Bld) [Mass/Vol]12.0 g/lDHitzkw86.0-16.0The [facility] CenterComment on above:Performed By: #### CBC #### [facility] [address] [place] [address] Dr. Scooby Nicholson #0.02 10e3/ulNormal0.00-0.03The [facility] CenterComment on above:Performed By: #### CBC #### [facility] [address] [place] [address] Dr. Scooby Nicholson %0.2 %Normal0.0-0.5The [facility] CenterCommclaren central [place] on above: Performed By: #### CBC #### [facility] [address] [place] [address] Dr. Scooby Mir #1.6 103/ulNormal1.2-3.8The [facility] CenterComment on above:Performed By: #### CBC #### [facility] [address] [place] [address] Dr. Scooyb Laomphocytes/100 WBC (Bld)13.6 %Critically low20.5-60.0The [facility] CenterComment on above:Performed By: #### CBC #### [facility] [address] [place] [address] Dr. Scooby SeverinoUAL DIFF REQNONormalThe [facility] CenterComment on above: Performed By: #### CBC #### [facility] [address] [address] [address] Scooby Bob (RBC) [Entitic mass]28.6 lhLniyqj46.7-34.0The [facility] CenterComment on above:Performed By: #### CBC #### [facility] [address] [place] [address] Dr. Scooby Bob (RBC) [Mass/Vol]31.9 g/pNJusqzu93.9-35.2The [facility] CenterComment on above:Performed By: #### CBC #### [facility] [address] [place] [address] Dr. Scooby Bob (RBC) [Entitic vol]89.5 sHXnjlmo67.0-99.0The [facility] CenterComment on above:Performed By: #### CBC #### [facility] [address] [place] [address] Dr. Scooby Page #0.7 103/ulNormal0.3-0.8The [facility] CenterComment on above:Performed By: #### CBC #### [facility] [address] [place] [address] Dr. Scooby Arevaloocytes/100 WBC (Bld)5.8 %Normal1.7-12.0[facility] Comment on above:Performed By: #### CBC #### [facility] [address] [place] [address] Dr. Scooby Chino #9.1 103/ulCritically high1.4-6.5The [facility] Comment on above:Performed By: #### CBC #### [facility] [address] [place] [address] Dr. Scooby Lozanoutrophils/100 WBC (Bld)79.8 %Critically high43.0-75.0The [facility] CenterComment on above:Performed By: #### CBC #### [facility] [address] [place] [address] Dr. Scooby Johnsonlet mean volume (Bld) [Entitic vol]10.2 fLNormal9.5-13.5The [facility] CenterComment on above:Performed By: #### CBC #### [facility] [address] [place] [address] Dr. Scooby IrvinPLT217 103/juJizdyu972-309Yfa [facility] CenterComment on above: Performed By: #### CBC #### [facility] [address] [place] [address] Dr. Scooby IrvinRBC4.20 106/ulNormal4.20-5.40The [facility] CenterComment on above:Performed By: #### CBC #### [facility] [address] [place] [address] Dr. Scooby IrvinWBC11.4 103/ulCritically high4.0-11.0The [facility] CenterComment on above:Performed By: #### CBC #### [facility] [address] [place] [address] Dr. Scooby Malone 14(COMP METB)on 24-47-2262Gpvunzu [Mass/Vol]3.9 g/dLNormal 3.5-5.0The [facility] CenterComment on above:Performed By: #### CMP #### [facility] [address] [place] [address] Dr. Scooby IrvinAlbumin/Globulin [Mass ratio]1.1 {ratio}NormalThe [facility] CenterComment on above:Performed By: #### CMP #### [facility] [address] [place] [address] Dr. Scooby Veloz [Catalytic activity/Vol]72 U/PMtephy81-894Hjt [facility] CenterComment on above:Performed By: #### CMP #### [facility] [address] [place] [address] Dr. Scooby Solorio [Catalytic activity/Vol]23 U/LNormal9-52The [facility] Comment on above:Performed By: #### CMP #### [facility] [address] [place] [address] Dr. Yilan ChangAnion gap [Moles/Vol]10.2 mmol/LNormalKettering Health [facility] Comment on above:Performed By: #### CMP #### [facility] [address] [address] [address] Scooby IrvinAST [Catalytic activity/Vol]20 U/BDfwodd08-68Nxx [facility] CenterComment on above:Performed By: #### CMP #### [facility] [address] [address] [address] Scooby IrvinBilirubin [Mass/Vol]0.5 mg/dLNormal0.2-1.3TSouthview Medical Center Comment on above:Performed By: #### CMP #### [facility] [address] [place] [address] Dr. Scooby IrvinCalcium [Mass/Vol]8.8 mg/dLNormal8.4-10.2[facility] Comment on above:Performed By: #### CMP #### [facility] [address] [place] [address] Dr. Scooby IrvinChloride [Moles/Vol]104 mmol/LPbzzom10-224KtlKettering Health Springfield Comment on above:Performed By: #### CMP #### [facility] [address] [place] [address] Dr. Scooby IrvinCO2 [Moles/Vol]28.0 mmol/DCkkpnj62.0-30.0[facility] Comment on above:Performed By: #### CMP #### [facility] [address] [place] [address] Dr. Scooby IrvinCreatinine [Mass/Vol]0.87 mg/dLNormal0.52-1.04The [facility] CenterComment on above:Performed By: #### CMP #### [facility] [address] [place] [address] Dr. Scooby GarciaGFR-AF LATVIAN>60Normal>=60The [facility] CenterComment on above:Performed By: #### CMP #### [facility] [address] [place] [address] Dr. Scooby GarciaGFR-NON AF LATVIAN>60Normal>=60The [facility] CenterComment on above:Performed By: #### CMP #### [facility] [address] [address] [address] Scooby IrvinGlobulin (S) [Mass/Vol]3.5 g/dLNormMercy Health St. Vincent Medical CenterComment on above:Performed By: #### CMP #### [facility] [address] [address] [address] Scooby IrvinGlucose [Mass/Vol]93 mg/mAMnretl51-022Bii [facility] Comment on above:Performed By: #### CMP #### [facility] [address] [address] [address] Scooby IrvinPotassium [Moles/Vol]4.2 mmol/LNormal3.4-5.0The [facility] Comment on above:Performed By: #### CMP #### [facility] [address] [address] [address] Scooby IrvinProtein [Mass/Vol]7.4 g/dLNormal6.1-8.2[facility] Comment on above:Performed By: #### CMP #### [facility] [address] [address] [address] Scooby IrvinSodium [Moles/Vol]138 mmol/DQpcfgy196-156ZvsKettering Health Springfield Comment on above:Performed By: #### CMP #### [facility] [address] [address] [address] Scooby IrvinUrea nitrogen [Mass/Vol]15.0 mg/dLNormal7.0-17.0The [facility] CenterComment on above:Performed By: #### CMP #### [facility] [address] [address] [address] Scooby IrvinUrea nitrogen/Creatinine [Mass ratio]17.2 mg/mgNormMercy Health St. Vincent Medical CenterComment on above:Performed By: #### CMP #### [facility] [address] [address] [address] SKULL BASE MID THIGHon 86-56-7193ULO CT SKULL BASE MID THIGHEXAMINATION: PET CT [...] Electronically authenticated by: FUENTES BARRETO Date: 2021-04-07 08:[address] [place] [address] LUNG CANCER SCREENINGon 40-06-4006AR LUNG CANCER SCREENING EXAMINATION: CT LUNG CANCER [...] Electronically authenticated by: FUENTES BARRETO Date: 2021-03-23 09:57NoCher[facility] AUTO DIFFon 90-15-7964JLFJ #0.1 103/ulNormal0.0-0.1[facility] SpringfieldComment on above:Performed By: #### CBC #### [facility] [address] [place] [address] Dr. Almodovar ChangBasophils/100 WBC (Bld)1.2 %Normal0.2-2.0[facility] Comment on above:Performed By: #### CBC #### [facility] [address] [place] [address] Dr. Scooby Bynum #0.1 103/ulNormal0.0-0.7ThFairfield Medical CenterComment on above: Performed By: #### CBC #### [facility] [address] [address] [address] Scooby Garciaosinophils/100 WBC (Bld)1.4 %Normal0.9-7.0[facility] Comment on above:Performed By: #### CBC #### [facility] [address] [place] [address] Dr. Scooby Garciarythrocyte distribution width (RBC) [Ratio]16.3 %Critically high 11.0-15.0[facility] SpringfieldComment on above:Performed By: #### CBC #### [facility] [address] [place] [address] Dr. Scooby IrvinHematocrit (Bld) [Volume fraction]39.6 %Uwtqbe71.0-48.0The [facility] CenterComment on above:Performed By: #### CBC #### [facility] [address] [place] [address] Dr. Scooby IrvinHemoglobin (Bld) [Mass/Vol]12.6 g/uPLddoiu28.0-16.0The [facility] CenterComment on above:Performed By: #### CBC #### [facility] [address] [place] [address] Dr. Scooby IrvinIG #0.01 10e3/ulNormal0.00-0.03The [facility] CenterComment on above:Performed By: #### CBC #### [facility] [address] [place] [address] Dr. Scooby IrvinIG %0.2 %Normal0.0-0.5The [facility] CenterComment on above: Performed By: #### CBC #### [facility] [address] [place] [address] Dr. Scooby Mir #1.6 103/ulNormal1.2-3.8The [facility] CenterComment on above:Performed By: #### CBC #### [facility] [address] [place] [address] Dr. Scooby Laomphocytes/100 WBC (Bld)30.7 %Ilhejz06.5-60.0The [facility] CenterComment on above:Performed By: #### CBC #### [facility] [address] [place] [address] Dr. Scooby IrvinMANUAL DIFF REQNONormalThe [facility] CenterComment on above: Performed By: #### CBC #### [facility] [address] [place] [address] Dr. Scooby Contreras (RBC) [Entitic mass]28.4 hvJndwoq37.7-34.0The [facility] CenterComment on above:Performed By: #### CBC #### [facility] [address] [place] [address] Dr. Scooby BobHC (RBC) [Mass/Vol]31.8 g/kPGfvmvq44.9-35.2The [facility] CenterComment on above:Performed By: #### CBC #### [facility] [address] [place] [address] Dr. Scooby BobV (RBC) [Entitic vol]89.2 aIDtenre54.0-99.0The [facility] CenterComment on above:Performed By: #### CBC #### [facility] [address] [place] [address] Dr. Scooby Page #0.6 103/ulNormal0.3-0.8The [facility] CenterComment on above:Performed By: #### CBC #### [facility] [address] [place] [address] Dr. Scooby Arevaloocytes/100 WBC (Bld)11.5 %Normal1.7-12.0The [facility] Comment on above:Performed By: #### CBC #### [facility] [address] [place] [address] Dr. Scooby Chino #2.8 103/ulNormal1.4-6.5The [facility] CenterComment on above:Performed By: #### CBC #### [facility] [address] [place] [address] Dr. Scooby Lozanoutrophils/100 WBC (Bld)55.0 %Qxwthn91.0-75.0The [facility] CenterComment on above:Performed By: #### CBC #### [facility] [address] [place] [address] Dr. Scooby Johnsonlet mean volume (Bld) [Entitic vol]10.3 fLNormal9.5-13.5The [facility] CenterComment on above:Performed By: #### CBC #### [facility] [address] [place] [address] Dr. Scooby IrvinPLT208 103/tmQesxwn469-737Dqt [facility] CenterComment on above: Performed By: #### CBC #### [facility] [address] [address] [address] Scooby IrvinRBC4.44 106/ulNormal4.20-5.40The [facility] CenterComment on above:Performed By: #### CBC #### [facility] [address] [address] [address] Scooby IrvinWBC5.1 103/ulNormal4.0-11.0The [facility] CenterComment on above: Performed By: #### CBC #### [facility] [address] [place] [address] Dr. Scooby IrvinFREE T4on 91-71-3355Ksmj T4 [Mass/Vol]1.15 ng/dLNormal0.78-2.19 The [facility] CenterComment on above:Performed By: #### CBC #### [facility] [address] [place] [address] Dr. Scooby ThayerID PROFILEon 43-86-7637HGFS-HDL RATIO NORMSEE [facility] Hospital - AndersonComment on above:Result Comment: 3.3 - 4.4 LOW RISK 4.4 - 7.1 AVERAGE RISK 7.1 - 11.0 MODERATE RISK >11.0 HIGH RISKPerformed By: #### LIPID, CMP, TSH #### [facility] [address] [place] [address] Dr. Scooby IrvinCholesterol [Mass/Vol]227 mg/dLCritically high<=200The [facility] CenterComment on above:Performed By: #### LIPID, CMP, TSH #### [facility] [address] [place] [address] Dr. Scooby Lobatoesterol in HDL [Mass/Vol]65 mg/dLOhioHealth Southeastern Medical Center Comment on above:Performed By: #### LIPID, CMP, TSH #### [facility] [address] [place] [address] Dr. Scooby Lobatoesterol in LDL [Mass/Vol]142.6 mg/dLOhioHealth Southeastern Medical CenterComment on above:Performed By: #### LIPID, CMP, TSH #### [facility] [address] [address] [address] Scooby IrvinCholesterol.total/Cholesterol in HDL [Mass ratio]3.5 {ratio} NormalThe [facility] CenterComment on above:Performed By: #### LIPID, CMP, TSH #### [facility] [address] [address] [address] Scooby Maki NORMAL> or = 60 mg/dl - LOW CARDIOVASCULAR RISK <40 mg/dl - HIGH CARDIOVASCULAR RISKOhioHealth Southeastern Medical CenterComment on above:Performed By: #### LIPID, CMP, TSH #### [facility] [address] [address] [address] Scooby IrvinLDL CALC NORMALSEE BELOWOhioHealth Southeastern Medical CenterComment on above:Result Comment: <100 mg/dl OPTIMAL 100 - 129 mg/dl NEAR OR ABOVE OPTIMAL 130 - 159 mg/dl BORDERLINE HIGH 160 - 189 mg/dl HIGH >190 mg/dl VERY HIGH Performed By: #### LIPID, CMP, TSH #### [facility] [address] [address] [address] Scooby IrvinTriglyceride [Mass/Vol]97 mg/dLNormal<=150The [facility] Comment on above:Performed By: #### LIPID, CMP, TSH #### [facility] [address] [place] [address] Dr. Scooby IrvinVLDL CALC19.4 mg/dLNoSt. Vincent HospitalComment on above: Performed By: #### LIPID, CMP, TSH #### [facility] [address] [address] [address] Scooby IrvinPROF 14(COMP METB)on 35-33-5612Mtqtfeg [Mass/Vol]4.0 g/dLNormal 3.5-5.0The [facility] CenterComment on above:Performed By: #### LIPID, CMP, TSH #### [facility] [address] [place] [address] Dr. Scooby IrvinAlbumin/Globulin [Mass ratio]1.1 {ratio}NormalThe [facility] CenterComment on above:Performed By: #### LIPID, CMP, TSH #### [facility] [address] [address] [address] Scooby BlancoP [Catalytic activity/Vol]80 U/CWvfcbv37-051Sha [facility] CenterComment on above:Performed By: #### LIPID, CMP, TSH #### [facility] [address] [address] [address] Scooby Solorio [Catalytic activity/Vol]35 U/LNormal9-52The [facility] Comment on above:Performed By: #### LIPID, CMP, TSH #### [facility] [address] [address] [address] Scooby Lunaon gap [Moles/Vol]11.8 mmol/LNormalKettering Health [facility] Comment on above:Performed By: #### LIPID, CMP, TSH #### [facility] [address] [address] [address] Scooby IrvinAST [Catalytic activity/Vol]24 U/XButlgz25-91Ztt [facility] CenterComment on above:Performed By: #### LIPID, CMP, TSH #### [facility] [address] [address] [address] Scooby IrvinBilirubin [Mass/Vol]0.5 mg/dLNormal0.2-1.3TSouth[facility] Comment on above:Performed By: #### LIPID, CMP, TSH #### [facility] [address] [address] [address] Scooby IrvinCalcium [Mass/Vol]9.3 mg/dLNormal8.4-10.2[facility] Comment on above:Performed By: #### LIPID, CMP, TSH #### [facility] [address] [address] [address] Scooby IrvinChloride [Moles/Vol]105 mmol/ADhorzb49-191Jcx [facility] Comment on above:Performed By: #### LIPID, CMP, TSH #### [facility] [address] [address] [address] Scooby IrvinCO2 [Moles/Vol]26.2 mmol/DMlobeo03.0-30.0The [facility] Comment on above:Performed By: #### LIPID, CMP, TSH #### [facility] [address] [address] [address] Scooby IrvinCreatinine [Mass/Vol]0.83 mg/dLNormal0.52-1.04The [facility] CenterComment on above:Performed By: #### LIPID, CMP, TSH #### [facility] [address] [address] [address] Scooby GarciaGFR-AF LATVIAN>60Normal>=60The [facility] CenterComment on above:Performed By: #### LIPID, CMP, TSH #### [facility] [address] [address] [address] Scooby GarciaGFR-NON AF LATVIAN>60Normal>=60The [facility] CenterComment on above:Performed By: #### LIPID, CMP, TSH #### [facility] [address] [address] [address] Scooby IrvinGlobulin (S) [Mass/Vol]3.8 g/dLNormalThe [facility] CenterComment on above:Performed By: #### LIPID, CMP, TSH #### [facility] [address] [address] [address] Scooby IrvinGlucose [Mass/Vol]112 mg/dLCritically nvst60-176Oog [facility] Systemment on above:Performed By: #### LIPID, CMP, TSH #### [facility] [address] [address] [address] Scooby IrvinPotassium [Moles/Vol]4.0 mmol/LNormal3.4-5.0The [facility] Comment on above:Performed By: #### LIPID, CMP, TSH #### [facility] [address] [address] [address] Scooby IrvinProtein [Mass/Vol]7.8 g/dLNormal6.1-8.2[facility] Comment on above:Performed By: #### LIPID, CMP, TSH #### [facility] [address] [address] [address] Scooby IrvinSodium [Moles/Vol]139 mmol/DNwkwtd088-066BodKettering Health Springfield Comment on above:Performed By: #### LIPID, CMP, TSH #### [facility] [address] [place] [address] Dr. Scooby Arroyo nitrogen [Mass/Vol]15.0 mg/dLNormal7.0-17.0[facility] SpringfieldComment on above:Performed By: #### LIPID, CMP, TSH #### [facility] [address] [place] [address] Dr. Scooby Arroyo nitrogen/Creatinine [Mass ratio]18.1 mg/mgNoSt. Vincent HospitalComment on above:Performed By: #### LIPID, CMP, TSH #### [facility] [address] [place] [address] Dr. Scooby Corral 69-41-4899HIQ9.761 uIU/mLNormal0.470-4.680The [facility] CenterComment on above:Performed By: #### LIPID, CMP, TSH #### [facility] [address] [place] [address] Dr. Scooby [facility]ễn Providence HospitalComment on above: Result Comment: <0.34 UIU/ml HYPERTHYROID 0.34-5.60 UIU/ml EUTHYROID >5.60 UIU/ml HYPOTHYROIDPerformed By: #### LIPID, CMP, TSH #### [facility] [address] [place] [address] Dr. Scooby Irvin Vital Signs Date TimeVital SignValuePerforming EqewqvzpuUroasybu89-35-5475 12:58-0400Body .3 kgLaurita Morales MD Work Phone: [facility]10-19-2025 12:20-0400 Respiratory rate17 /minLaurita Morales MD Work Phone: [facility]10-19-2025 11:11-0400 Body oxwxdbowoqu70.6 [degF]Laurita Morales MD Work Phone: [facility]10-19-2025 11:11-0400 Diastolic blood gykicuaf46 mm[Hg]Laurita Morales MD Work Phone: 1(460)[address] [place], [place] 6294210-19-2025 11:11-0400 Heart rate77 /minLaurita Morales MD Work Phone: 1(263)[address] [place], [place] 6294210-19-2025 11:11-0400 SaO2% (BldA) [Mass fraction]94 %Laurita Morales MD Work Phone: [phone])[address] [place], [place] 6294210-19-2025 11:11-0400 Systolic blood rxuuzscu522 mm[Hg]Laurita Morales MD Work Phone: 1(971)[address] [place], [place] 6294210-19-2025 05:13-0400 Body .6 kgLaurita Morales MD Work Phone: 1(527)[address] [place], [place] 6294210-18-2025 00:00-0400 Inhaled oxygen flow rate1 L/minLaurita Morales MD Work Phone: [phone])[address] [place], [place] 6294210-16-2025 06:05-0400 Body vgeaoy773.32 cmLaurita Morales MD Work Phone: 1(045)[address] [place], [place] 6294210-10-2025 09:30-0400 Body dbryev805.7 cmLaurita Morales MD Work Phone: 1(900)[address] [place], [place] 6294210-10-2025 09:30-0400 Body mass index (BMI) [Ratio]37.5 kg/r9JjnueyLaurita Morales MD Work Phone: [phone])[address] [place], [place] 6294210-10-2025 09:30-0400 Body zzdsoc89.4 kgLaurita Morales MD Work Phone: 1(094)[address] [place], [place] 6294210-09-2025 10:15-0400 Diastolic blood lptefxtc61 mm[Hg]Laurita Morales MD Work Phone: 1(819)[address] [place], [place] 629[address]10-09-2025 10:15-0400 Systolic blood xetbtlff816 mm[Hg]Laurita Morales MD Work Phone: 1(434)[address] [place], [place] 6294210-09-2025 10:00-0400 Heart rate88 /Caridad Morales MD Work Phone: 1(558)[address] [place], [place] 6294210-09-2025 09:53-0400 Body gfxewg581.7 cmLaurita Morales MD Work Phone: 1(756)[address] [place], [place] 629[address]10-09-2025 09:53-0400 Body mass index (BMI) [Ratio]37.6 kg/u5HlrzqjLaurita Morales MD Work Phone: 1(457)[address] [place], [place] 6294210-09-2025 09:53-0400 Body .48 kgLaurita Morales MD Work Phone: 1(603)[address] [place], [place] 6294209-24-2025 11:12-0400 Body .5 kgLaurita Morales MD Work Phone: 1(290)[address] [place], [place] 6294209-08-2025 09:24-0400 Diastolic blood ltgpvodz31 mm[Hg]Laurita Morales MD Work Phone: 1(022)[address] [place], [place] 6294209-08-2025 09:24-0400 Systolic blood mm[Hg]Laurita Morales MD Work Phone: 1(165)[address] [place], [place] 6294209-08-2025 08:54-0400 Body uckshp914.7 cmLaurita Morales MD Work Phone: 1(057)[address] [place], [place] 6294209-08-2025 08:54-0400 Body mass index (BMI) [Ratio]38.1 kg/y2GzhbmwLaurita Morales MD Work Phone: 1(166)[address] [place], [place] 6294209-08-2025 08:54-0400 Body zapgnt23.38 kgLaurita Morales MD Work Phone: 1(662)[address] [place], [place] 6294209-08-2025 08:54-0400 Heart rate77 /Caridad Morales MD Work Phone: 1(653)[address] [place], [place] 6294208-20-2025 09:54-0400 Body ogoiag123.97 cmLaurita Morales MD Work Phone: 1(180)[address] [place], [place] 6294208-20-2025 09:54-0400 Body mass index (BMI) [Ratio]37.5 kg/a8WxaimbLaurita Morales MD Work Phone: [facility]08-20-2025 09:54-0400 Body tlowbg39.6 kgLaurita Morales MD Work Phone: [facility]05-13-2025 13:30-0400 Body bdgdxa304.9 cmMahumberto Veras PA Work Phone: [facility] HospitalBwjvxfdijj15-99-1358 13:30-0400Body mass index (BMI) [Ratio]32.11 kg/o0Dhlkhomhumberto Veras PA Work Phone: [facility] HospitalMtmcqeqchz54-20-8427 13:30-0400Body wypxsd06.12 kgMahumberto Veras PA Work Phone: [facility] HospitalAvarbfhdit27-80-4824 08:53-0400Body mixagn070.97 cmUniversity [facility]als [facility]03-11-2025 08:53-0400Body mass index (BMI) [Ratio]36.5 kg/r5VoepfieirUniversity Hospitals Beachwood [facility] Center03-11-2025 08:53-0400Body .57 kgUniversity [facility]als [facility]03-11-2025 08:53-0400Diastolic blood yirqabpr54 mm[Hg][facility]03-11-2025 08:53-0400 Heart rate80 /minUniversity Hospitals Beachwood [facility] Center03-11-2025 08:53-0400Systolic blood wlyhkalk445 mm[Hg][facility]02-07-2025 10:54-0500 Blood Pressure LocationMuhammad Sarmini [phone]-GqchwKettering Health [facility]02-07-2025 10:54-0500Diastolic blood mm[Hg]Salazar Sarmini [phone]-JuoneKettering Health [facility]02-07-2025 10:54-0500Heart rate71 /minMuhammad Sarmini 466-3389Paywhq-RspbpKettering Health [facility]02-07-2025 10:54-0500Systolic blood rjrzlfxi880 mm[Hg]Salazar Sarmini [phone]-Fhilr[address] [place], [place] 5826212-19-2024 13:46-0500Diastolic blood mhhskaoj40 mm[Hg]Salazar Sarmini 494-3061Leiblb-Bqisv[address] [place], [place] 5826212-19-2024 13:46-0500Mean blood gckkelvr717 mm[Hg]Salazar Sarmini 725-5969Sbguil-Cjqlo[address] [place], [place] 5826212-19-2024 13:46-0500Systolic blood hzzilcja292 mm[Hg]Salazar Sarmini [phone]-Zoubh[address] [place], [place] 5826212-19-2024 13:41-0500Blood Pressure LocationMuhammad Sarmini 155-7355Smvnyk-Uccki[address] [place], [place] 5826212-19-2024 13:41-0500Diastolic blood mm[Hg]Salazar Sarmini 494-9401Peoydb-Qqmtz[address] [place], [place] 5826212-19-2024 13:41-0500Heart rate80 /minMuhammad Sarmini 612-2405Tolfzf-Gxamu[address] [place], [place] 5826212-19-2024 13:41-0500Systolic blood jvcyuimz970 mm[Hg]Salazar Sarmini [phone]-Yzbtw[address] [place], [place] 5826212-04-2024 13:25-0500Diastolic blood mm[Hg]Salazar Sarmini [address] [place], [place] 7412012-04-2024 13:25-0500Heart rate79 /minMuhammad Sarmini [address] [place], [place] 7412012-04-2024 13:25-0500Mean blood ribljisx681 mm[Hg]Salazar Sarmini [facility]12-04-2024 13:25-0500 Respiratory rate17 /minMuhammad Sarmini [facility]12-04-2024 13:25-3397PdY6% (BldA) [Mass fraction]96 %Salazar Sarmini [facility]12-04-2024 13:25-0500 Systolic blood owcynqpt361 mm[Hg]Salazar Sarmini [address] [place], [place] 7412012-04-2024 13:15-0500 Diastolic blood uzxzkqmj22 mm[Hg]Salazar Sarmini [address] [place], [place] 3911712-04-2024 13:15-0500Heart rate79 /minMuhammad Sarmini [address] [place], [place] 7412012-04-2024 13:15-0500Mean blood maujsqni300 mm[Hg]Salazar Sarmini [facility]12-04-2024 13:15-0500 Respiratory rate17 /minMuhammad Sarmini [facility]12-04-2024 13:15-2185CjG6% (BldA) [Mass fraction]96 %Salazar Sarmini [facility]12-04-2024 13:15-0500 Systolic blood oflapeku621 mm[Hg]Salazar Sarmini [facility]12-04-2024 13:00-0500 Diastolic blood sjtyyqms74 mm[Hg]Salazar Sarmini [facility]12-04-2024 13:00-0500Heart rate72 /minMuhammad Sarmini [address] [place], [place] 7412012-04-2024 13:00-0500Mean blood bovdkmyd20 mm[Hg]Salazar Sarmini [address] [place], [place] 7412012-04-2024 13:00-4685MyI5% (BldA) [Mass fraction]97 %Salazar Sarmini [address] [place], [place] 7412012-04-2024 13:00-0500 Systolic blood xoymasiq953 mm[Hg]Salazar Sarmini [address] [place], [place] 7412012-04-2024 12:50-0500Body vgfzfpnijzr18.24 [degF]Salazar Sarmini [address]12-04-2024 12:44-0500 Respiratory rate18 /minMuhammad Sarmini [address] [place], [place] 7412012-04-2024 12:40-0500 Respiratory rate19 /minMuhammad Sarmini [address] [place], [place] 7412012-04-2024 12:35-0500 Respiratory rate19 /minMuhammad Sarmini [address] [place], [place] 7412012-04-2024 10:59-0500Blood Pressure LocationMuhammad Sarmini [address] [place], [place] 7412012-04-2024 10:59-0500Body kcqpbvzhzuy89.24 [degF]Salazar Sarmini [address] [place], [place] 7412010-23-2024 08:58-0400Blood Pressure LocationMuhammad Sarmini [phone]-Olfhk[address] [place] [address] Digestive Ydmwwa92-35-1574 08:58-0400Diastolic blood jrktlgtu62 mm[Hg]Salazar Sarmini [phone]-AeigdKettering Health [facility]10-23-2024 08:58-0400Heart rate84 /minMuhammad Sarmini [phone]-CoxqfKettering Health Troy10-23-2024 08:58-0400Respiratory rate16 /minMuhammad Sarmini 305-1942Llqiuf-NxmbfKettering Health Troy10-23-2024 08:58-0400Systolic blood vkiqskuh880 mm[Hg]Salazar Sarmini [phone]-AapwnKettering Health Troy10-23-2024 08:49-0400Blood Pressure LocationMuhammad Sarmini [phone]-ThcxsKettering Health Troy10-23-2024 08:49-0400Respiratory rate16 /minMuhammad Sarmini [phone]-DimyzKettering Health Troy07-25-2023 09:00-0400Body evhzph583.97 cmLaurita Morales Other [employer] Other 07-25-2023 09:00-0400Body mass index (BMI) [Ratio] 36.74 kg/g6IidsjjLaurita Morales Other [employer] Other 07-25-2023 09:00-0400Body vdrjhi08.03 kgLaurita Morales Other [employer] Other 07-25-2023 09:00-0400Diastolic blood suaycaex70 mm[Hg] Laurita Morales Other [employer] Other 07-25-2023 09:00-5305VmC5% (BldA) [Mass fraction]97 % Laurita Morales Other [employer] Other 07-25-2023 09:00-0400Systolic blood uqvfjpvg732 mm[Hg] Laurita Morales Other [employer] Other 01-19-2023 10:30-0500Body .97 cmLaurita Carmen Other [employer] Other 01-19-2023 10:30-0500Body mass index (BMI) [Ratio] 36.06 kg/r4Mkuaes Carmen Other [employer] [facility] [employer] Other 01-19-2023 10:30-0500Body arxada36.67 kgLaurita Carmen Other [employer] Other 01-19-2023 10:30-0500Diastolic blood yrxgjeuv89 mm[Hg] Laurita Morales Other [employer] Other 01-19-2023 10:30-9552RzK3% (BldA) [Mass fraction]98 % Laurita Morales Other [employer] Other 01-19-2023 10:30-0500Systolic blood aaztbbhy984 mm[Hg] Laurita Morales Other [employer] [facility] [employer] Other 09-28-2022 10:17-0400Diastolic blood iabcgtfs73 mm[Hg] Capri SYEDFixstream Networks Inc [phone]-WrjkqKettering Health [facility]09-28-2022 10:17-0400Mean blood zikuuiim15 mm[Hg]Farooq [employer] [phone]-NqbznKettering Health Troy09-28-2022 10:17-0400Systolic blood mm[Hg]Farooq SALAM [phone]-QqnliKettering Health Troy09-28-2022 10:15-0400Blood Pressure LocationMaher SALAM [phone]-SanhgKettering Health Troy09-28-2022 10:15-0400Diastolic blood porwksib91 mm[Hg]Farooq SALAM [phone]-MbbddKettering Health Troy09-28-2022 10:15-0400Heart rate78 /minMaher SALAM 184-5581Fyodah-FeescKettering Health Troy09-28-2022 10:15-0400Respiratory rate16 /minMaher SALAM [phone]-OuimqKettering Health Troy09-28-2022 10:15-0400Systolic blood vebpmqai947 mm[Hg]Farooq SALAM [phone]-RhssvKettering Health Troy03-30-2022 11:11-0400Diastolic blood mm[Hg]Farooq SALAM [phone]-CfnmtShelby [facility] 598049-15-3393 11:11-0400Systolic blood pggxorqx902 mm[Hg] [facility] SALAM [phone]-MvuhaKettering Health Troy Encounters Encounter DateEncounter TypeCare ProviderFacilityStart: 12-10-2024 End: 34-38-3073wlcbylilztXjyarh E Braun MD Work Phone: [phone]-Rifygkxmd Health NeurosurgeryStart: 12-10-2024 End: 07-02-9461Cieqruv encounter procedureEric Geri Segal DO-[facility] Work Phone: start: 23-98-8903Hec-patient / Non-visitCory Morales MD-[facility] Work Phone: start: 28-75-9002Has-patient / Non-visitCatnoe Victoria CMAKettering Health Main Campus Work Phone: Start: 89-98-5461Fjc-patient / Non-visitEric N ArpitaRice [facility] Work Phone: start: 11-26-2024 End: 74-82-8917Uwdqcyumfn and management of inpatientEric N Luzma [facility]: 72-13-6313Qovdoxqfjijsc examination Akin Morales MD Work Phone: [facility]ertart: 11-20-2024 End: 77-77-0194cqaryiipvkHadzmr E Braun MD Work Phone: [facility] Work Phone: Start: 11-20-2024 End: 02-08-2244Fhwekrm encounter procedureEric [facility] Work Phone: start: 11-19-2024 End: 78-82-7918jtnltrjyhbQurjzc E Braun MD Work Phone: [facility] Work Phone: Start: 11-19-2024 End: 67-01-8162Pfilakg encounter procedureLaurita Morales MD-[facility] Work Phone: Start: 11-19-2024 End: 96-25-6903Tdojlvyvllhbt examination Akin Morales MDLakeHealth TriPoint Medical Centertart: 11-12-2024 End: 39-40-3834Zqtcdtn encounter procedureEric Ector RW-[facility] Work Phone: Start: 11-12-2024 End: 67-25-3210myyezophmaMfbyab E Braun MD Work Phone: [facility] Work Phone: Start: 81-75-8632Ptavemlxh for preprocedural laboratory examinationEric [facility] Physician GroupStart: 11-04-2024 End: 62-68-3387odlhiaztrbEijmyt E Braun MD Work Phone: [facility] Work Phone: Start: 11-04-2024 End: 80-92-0288Vglfjjf encounter procedureEric N ArpitaBayhealth Medical Center Neurosurgery Work Phone: start: 10-28-2024 End: 35-39-3673pdtzifrvzdRqypvi E Braun MD Work Phone: [facility] Work Phone: Start: 10-28-2024 End: 17-52-0797Kyxzkpd encounter procedureChristopher Joana Alvarez DO-[facility] [place] Work Phone: Start: 12-44-2668Ciy-patient / Non-visitLaurita Morales MD-[facility] Work Phone: Start: 10-19-2024 End: 51-84-5484Otajldq encounter procedureLaurita Morales MD-[facility] Work Phone: Start: 09-30-2024 End: 58-42-3566hhntmzuvncRybbzq E Braun MD Work Phone: [facility] Work Phone: Start: 09-30-2024 End: 50-23-4368Dvpieuy encounter procedureEric N [facility]ctorSt. [facility] Work Phone: start: 08-20-2024 End: 37-10-1113Joqooq flowsheetDolly ORR Work Phone: [facility] SWS ORTHOStart: 08-20-2024 End: 49-63-1164Uzuksh flowsDonny ORR Work Phone: [facility] SWS ORTHOStart: 08-20-2024 End: 21-40-0470Biflwv follow up visit related to original Keanu ORR Work Phone: [facility] SWS ORTHOComment on above:S/P right knee arthroscopy (Primary Dx)Start: 08-20-2024 End: 08-58-5785mxktlyjcouHTIDZBE J MEYERNot AvailableStart: 08-10-2024 End: 31-91-4397zdhzofxrulCpvnrux Vytautas Giedraitis MDFacility:PM [place] Start: 07-22-2024 End: 05-83-5763Hrufan flowsheetDolly ORR Work Phone: [facility] FB ORTHOPAEDICSStart: 07-22-2024 End: 43-72-3793Kutnzi flowsDonny ORR Work Phone: [facility] FB ORTHOPAEDICSStart: 07-22-2024 End: 83-62-1932Kfifgl follow up visit related to original pxDolly ORR Work Phone: [facility] FB ORTHOPAEDICSComment on above:S/P right knee arthroscopy (Primary Dx)Start: 07-22-2024 End: 44-96-1119zeeccjdejcRWNBBKM J MEYERNot AvailableStart: 07-03-2024 End: 50-64-7676YwyfzgGxhvv T Olsen NP Work Phone: [facility] FB ORTHOPAEDICSComment on above:Acute medial meniscus tear of right knee, initial encounter (Primary Dx)Start: 06-30-2024 End: 86-82-9137Outmcj flowsheetSammantha Bull PTNOMS CI PTStart: 06-30-2024 End: 21-69-1531Ajbgmh flowsheetSammantha Bull PTNOMS CI PTStart: 06-30-2024 End: 65-42-4887iynixytuulBkfuyirqx Bull PTNOMS CI PTComment on above:Pre-op examination (Primary Dx); Localized osteoarthritis of right kneeStart: 06-30-2024 End: 74-58-1377Gwcldnbhtshnn examination doneSammantha Bull PTNOMS HealthcareStart: 06-24-2024 End: 20-98-7605Kzehmjhel Result EncounterMahumberto ORR Work Phone: [facility] External Department UnsolicitedStart: 06-24-2024 End: 45-27-0201Nidshlghr Result EncounterMahumberto ORR Work Phone: [facility] External Department UnsolicitedStart: 06-23-2024 End: 34-46-5148Klxwvw flowsheetDolly ORR Work Phone: [facility] FB ORTHOPAEDICSStart: 06-23-2024 End: 96-03-3951Yxwfvs flowsheetDolly ORR Work Phone: [facility] FB ORTHOPAEDICSStart: 06-23-2024 End: 11-63-7397Qsamqte encounter procedureMahumberto ORR Work Phone: [facility] FB ORTHOPAEDICSComment on above:Pre-op examination (Primary Dx)Start: 06-23-2024 End: 62-66-8504Sspmmcellmkvk examination doneDolly ORR Work Phone: noms HealthcareStart: 06-23-2024 End: 37-14-2534gyypfprzqiOTUWNKE J MEYERNot AvailableStart: 05-13-2024 End: 32-96-2170Oowjet flowsheetJr. Larissa Guerrero DO Work Phone: [facility] ORTHOStart: 05-13-2024 End: 15-21-3891Kpoove flowsheetJr. Larissa Guerrero DO Work Phone: [facility] ORTHOStart: 05-13-2024 End: 67-41-7354Vgffqx outpatient visit 25 minutesJr. Larissa Guerrero DO Work Phone: noms [facility] ORTHOComment on above:Acute pain of right knee (Primary Dx); Acute medial meniscus tear of right knee, initial encounterStart: 05-13-2024 End: 10-57-8890mtkkklxjesSPLARISSA Quiles AvailableStart: 05-04-2024 End: 07-90-2430leqgmitcuiSetvqed Vytautas Giedraitis MDFacility:PM [facility] Start: 04-21-2024 End: 29-31-6290phehgtwwpkWuupfoebjUniversity [facility]als [facility] Work Phone: Start: 04-21-2024 End: 81-37-4246Awqblvm encounter procedureFormerly [facility] Physician GroupKettering Health [facility] Campus Work Phone: Start: 04-15-2024 End: 06-93-3583Qkqqzv outpatient visit 25 minutesJr. Larissa Guerrero DO Work Phone: [facility] ORTHOComment on above:Acute pain of left knee (Primary Dx); Acute pain of right knee; Acute medial meniscus tear of right knee, initial encounterStart: 04-15-2024 End: 54-80-6245Mxjhud flowsheetJr. Larissa Guerrero DO Work Phone: [facility] ORTHOStart: 04-15-2024 End: 83-59-5289Alrnxg flowsheetJr. Larissa Guerrero DO Work Phone: [facility] ORTHOStart: 04-15-2024 End: 91-29-7647hmjyqxmlmaWT.LARISSA AvailableStart: 03-20-2024 End: 40-38-0515angaysvvfqShcchddt Talal SarminiFacility:[facility] DHStart: 03-20-2024 End: 52-55-5109Fnvimcy encounter procedureMuhammad Talal Sarmini [phone]-CmawoS[facility] Start: 03-18-2024 End: 31-44-2995Znhjbs outpatient visit 15 minutesJr. Larissa Guerrero DO Work Phone: noms SWS ORTHOComment on above:Left knee pain, unspecified chronicity (Primary Dx); Internal derangement of left knee; Arthritis of left kneeStart: 03-18-2024 End: 22-38-4896acxztdvwmlAQLARISSA Quiles AvailableStart: 03-02-2024 End: 31-66-4557Ksynbphxh encounterMaria Peña Giordano WATCH ADJUSTER Work Phone: noms SWS ORTHOComment on above:MRIStart: 02-17-2024 End: 41-53-7274Colyjb flowsheetMaria B Apling WATCH ADJUSTER Work Phone: noms CI ORTHOPAEDICSStart: 02-17-2024 End: 66-36-4689Szjgml flowsheetMaria B Apling WATCH ADJUSTER Work Phone: noms CI ORTHOPAEDICSStart: 02-17-2024 End: 95-12-1275Rnkthl outpatient visit 15 minutesMaria B Apling WATCH ADJUSTER Work Phone: noms CI ORTHOPAEDICSComment on above:S/P left knee arthroscopy (Primary Dx); Left knee pain, unspecified chronicity; Arthritis of left knee; Internal derangement of left kneeStart: 02-17-2024 End: 09-50-1468fcsekkgxvbZHAGU B APLINGNot AvailableStart: 01-30-2024 End: 20-64-6896fyxvxhogqjKcopqltr Talal SarminiFacility:[facility] DHStart: 01-30-2024 End: 36-58-8343Ojdpdro encounter procedureMuhammad Talal Sarmini [phone]-JmaadOhiohealth Berger Hospital Health Start: 01-20-2024 End: 04-86-8046Dmwyib flowsheetMaria B Apling WATCH ADJUSTER Work Phone: noms CI ORTHOPAEDICSStart: 01-20-2024 End: 86-49-6520Ilwpzi flowsheetMaria B Apling WATCH ADJUSTER Work Phone: noms CI ORTHOPAEDICSStart: 01-20-2024 End: 67-10-5076Jomdyo outpatient visit 25 minutesMaria B Apling WATCH ADJUSTER Work Phone: noms CI ORTHOPAEDICSComment on above:S/P left knee arthroscopy (Primary Dx); Left knee pain, unspecified chronicity; Arthritis of left kneeStart: 01-20-2024 End: 33-02-0411lwtitkytmvLVMXR B APLINGNot AvailableStart: 01-15-2024 End: 97-71-6110Tkazxkt encounter procedureMuhammad Talal Sarmini [facility] Start: 12-31-2023 End: 83-92-6377Afvrit flowsbridgetAbhi Yessi Katie WATCH ADJUSTER Work Phone: noms CI ORTHOPAEDICSStart: 12-31-2023 End: 11-86-2099Lnhbbd flowsbridgetAbhi Ramires WATCH ADJUSTER Work Phone: NOXM CI ORTHOPAEDICSStart: 12-31-2023 End: 87-68-3242Snymbe follow up visit related to original meliAbhi Yessi Katie WATCH ADJUSTER Work Phone: noms CI ORTHOPAEDICSComment on above:S/P left knee arthroscopy (Primary Dx); Left knee pain, unspecified chronicityStart: 12-31-2023 End: 72-91-3485iucwokxhzuLWQHK T OLSENNot AvailableStart: 12-06-2023 End: 64-67-8366xqicdekedsJebvccba Talal SarminiFacility:FTMCStart: 12-06-2023 End: 74-56-7775Fjt Drop offMuhammad Talal Sarmini [facility] Start: 12-04-2023 End: 51-72-0402akeehwhwzdBypfsirj Talal SarminiFacility:FTMCStart: 12-04-2023 End: 77-02-5204Cvwonsg encounter procedureMuhammad Talal Sarmini [facility] Start: 26-18-3645ojaskxqmrmDomvmjvd Talal Sarmini Facility:[facility] DHStart: 12-04-2023 End: 53-71-9086Ozpkije encounter procedureMuhammad Talal Sarmini [phone]-DzwipShelby [facility] Hospital [facility] Start: 72-89-7707kcsiklpcwuCddvtoss SarminiFacility:[facility] BellevueStart: 11-13-2023 End: 81-55-9383Biadbt flowsheetMaria B Apling WATCH ADJUSTER Work Phone: noMS CI ORTHOPAEDICSStart: 11-13-2023 End: 76-81-9948Faahse flowsheetMaria B Apling WATCH ADJUSTER Work Phone: noms CI ORTHOPAEDICSStart: 11-13-2023 End: 37-62-1635Tkzojg follow up visit related to original pxMaria B Apling WATCH ADJUSTER Work Phone: NOAQ CI ORTHOPAEDICSComment on above:Arthritis of left knee (Primary Dx); S/P left knee arthroscopyStart: 11-13-2023 End: 32-27-2119nwawdalvglSOTBB B APLINGNot AvailableStart: 10-16-2023 End: 88-22-4124Cugeoq flowsheetMaria B Apling WATCH ADJUSTER Work Phone: noms CI ORTHOPAEDICSStart: 10-16-2023 End: 43-77-1133Qjkqxe flowsheetMaria B Apling WATCH ADJUSTER Work Phone: noms CI ORTHOPAEDICSStart: 10-16-2023 End: 08-43-8262Kbepbf follow up visit related to original pxMaria B Apling WATCH ADJUSTER Work Phone: noms CI ORTHOPAEDICSComment on above:Arthritis of left knee (Primary Dx); S/P left knee arthroscopyStart: 10-16-2023 End: 28-52-6687iikvfrqrjgYTMQJ B APLINGNot AvailableStart: 10-08-2023 End: 45-48-4207VkwdsbRrlvf T Olsen WATCH ADJUSTER Work Phone: noms FB ORTHOPAEDICSComment on above:Post-op pain (Primary Dx)Start: 09-10-2023 End: 09-37-4941ctarxokolaNDAJT A HUDDLESTONNot AvailableStart: 34-85-8288Qspdmyr encounter procedureLakeHealth TriPoint Medical Centertart: 08-26-2023 End: 90-51-7006ctosxkwjizDBJUH B APLINGNot AvailableStart: 03-07-2023 End: 33-07-6762wfqisflnmrXccwnj Morales Other [employer] Other Start: 50-26-6880Ytkvbb outpatient visit 15 minutes Laurita Gal[facility] ClinicStart: 09-20-2022 End: 71-62-5795ymsxwarjreBdsoqj Morales Other [employer] Other Start: 59-41-3123Wodtgjcbk encounterMarsudhakar [facility] ClinicStart: 09-04-2022 End: 05-75-6389esbbvjocggLwrglw Morales Other [employer] Other Start: 27-50-6694Blnxmrb encounter procedureMarcimari MoralesNewark Hospital ClinicStart: 68-69-4196udedazdeunFG LAURITA MORALES Facility:C6Wgbqs: 03-01-2022 End: 91-85-4156czzrnqpdcjWmitqd Morales Other [employer] Other Start: 11-23-2633Silojv outpatient visit 15 minutes Laurita [facility] ClinicStart: 01-18-2022 End: 16-34-6069sprvpsxoxaMV LAURITA MORALESFacility:Q8Xvuaw: 11-21-2021 End: 54-70-2088civrmsadnkOYKMS SALAMFacility:O1Aaukg: 11-08-2021 End: 38-23-2299Vnpjiti encounter procedureMaher SALAM [phone]-YldgaS[facility] Start: 10-19-2021 End: 60-50-0358ossfbyrkgnNP LAURITA MORALESFacility:X3Eaukz: 09-27-2021 End: 19-33-5263jvxwyaqjlrQK LAURITA MORALESFacility:N2Weldf: 09-26-2021 End: 26-49-5510thwxukinviKD LAURITA E BRAUNFacility:M9Yzclq: 20-57-6093Tldqmzofc for preprocedural laboratory examinationDR RADHA Whitfield [facility] Start: 09-22-2021 End: 65-05-3014ipaljbikecGH LAURITA E BRAUNFacility:X5Cdvdl: 09-22-2021 End: 59-97-0169Iyrzyqhky for preprocedural laboratory examinationDR LAURITA MORALESFacility:Y8Vgsrp: 23-69-0589iwgzqxdngiBP LAURITA E BRAUNFacility:W3Cjrdg: 09-06-2021 End: 78-37-6217qdvazieghyCFBQ SOLISFacility:G1Flhau: 85-36-6207Lyqve health examinationMaliamari Carmen Other [employer] Other Start: 06-22-2021 End: 81-80-5472odcedxegkqBSOYF SALAMFacility:P8Fqgpd: 05-26-2021 End: 43-74-9101Bcbflzt encounter procedureMD Cy DeRiso Work Phone: [facility] Start: 05-22-2021 End: 78-55-4862dswxxewcwtLP LAURITA E CARMENFacility:N0Wmfyj: 05-10-2021 End: 03-46-2026Qywkoka encounter procedureMaher SALAM [phone]-PmfoxShelby Memorial Hospital [facility] Start: 05-04-2021 End: 89-45-1197Zdhvzoi encounter procedureMD Cy DeRiso Work Phone: [facility] CampusStart: 04-20-2021 End: 95-15-1162vtsaxprbfwGXLXE SALAMFacility:V5Eqjal: 04-01-2021 End: 03-92-9272pbwappuxhuKJ LAURITA E CARMENFacility:J6Cxmwo: 03-23-2021 End: 00-52-1638nowyxvkocrYA LAURITA E CARMENFacility:I2Zgkfy: 03-09-2021 End: 52-89-8162hablsebugeMR LAURITA MORALESFacility:H1 Procedures DateProcedureProcedure DetailPerforming ClinicianStart: 00-96-8190Iiqnubii screenMarfigueroaa CarmenComment on above:Order Comment: Date of Surgery: [id number] Result Comment: PERFORMED BY: [facility] [place] [address] PATHOLOGIST REPAIR WELDER EMGAN BENDER M.D.Start: 58-21-4587JEU BASIC METABOLIC PANELMatthew Andre Veras PA Work Phone: Start: 33-82-4737Jojfqilatp examination knee 1/2 views Jr. Larissa Hurley Stepanic DO Work Phone: Start: 81-01-8777SuvzytopfjkOroui Apling WATCH ADJUSTER Work Phone: Start: 17-42-3647TyusrjkgcqaCgznhuqf Sarmini Start: 74-41-0628LotpzqumbmzjqaefrsvbrjygigAgqsovle Sarmini Start: 44-24-7871Jvbl of meniscus of knee (disorder) Salazar Sarmini Start: 07-42-7754Ogjzhvg of thyroidectomyStatus post total thyroidectomyGrant Katie WATCH ADJUSTER Work Phone: Start: 18-26-9918MybxjohhbuiUyyph Ramires WATCH ADJUSTER Work Phone: Start: 67-69-0440Jfwvnsmhmbh w/biopsy single/multiple Farooq SALAM ColonoscopyMaher SALAM History of appendectomyMuhammad Sarmini History of thyroidectomyMuhammad Sarmini Screening for malignant neoplasm of breastEmilycimari Morales Other Plan of Treatment DateCare ActivityDetailAuthorStart: 06-61-1372Iqvmfgbwd for malignant neoplasm of colonNOMS HealthcareStart: 18-46-2049Sbavocedt for malignant neoplasm of colonNOMS HealthcareStart: 93-72-9269PbasjfytjLakeHealth TriPoint Medical Centertart: 61-92-3049Qgwdhtmk admissionLakeHealth TriPoint Medical Centertart: 10-12-2024 Influenza vaccinationInfluenza Vaccine (#1)[facility] HealthcareStart: 09-30-2024 [facility] referralOhio[facility] Work Phone: Start: 08-20-2024 End: 60-47-6653Jzbvkst encounter procedureNOMS SWS ORTHOComment on above:S/P right knee arthroscopy (Primary Dx)Start: 07-22-2024 End: 19-39-1044Vidflug encounter procedureNOMS FB ORTHOPAEDICSComment on above: S/P right knee arthroscopy (Primary Dx)Start: 07-21-2024 End: 94-04-9149Vkpfbqo encounter ukxxqosbn01/10/2025 11:15 AM EDT Office Visit [facility] [address] [place] [address] Dolly Veras, [place] [address] [facility] [address] [place] [address] N[facility] FB ORTHOPAEDICSStart: 06-30-2024 End: 69-01-2795dqckiyhmrt82/20/2025 9:30 AM EDT Evaluation [facility] [address] [facility] [address] [place] [address] Sofia Bull PTNOMS CI PTStart: 06-23-2024 End: 00-48-2444Oyrgj metabolic 1998 panel - Serum or PlasmaBasic metabolic panel Lab Routine Pre-op examination Expected: 06/23/2024 (Approximate), Expires: [facility] Work Phone: Comment on above:Expected: 06/23/2024 (Approximate), Expires: 06/23/2025Start: 06-23-2024 End: 40-08-3697Keflgmn encounter procedureNOMS FB ORTHOPAEDICSComment on above: Pre-op examination (Primary Dx)Start: 05-13-2024 End: 92-35-2011Xemevxp encounter procedureNOMS SWS ORTHOComment on above:Arrived Start: 04-15-2024 End: 22-34-8110Bzekykw encounter fccgnoczh72/05/2025 2:15 PM EST Office Visit [facility] [address] [place] [address] Jr. Larissa Guerrero, [address] [place] [address] Acute pain of left kneeNOMS SWS ORTHO Comment on above:Acute pain of left kneeStart: 02-17-2024 End: 87-21-0030QB Knee - left WO contrastMR knee left wo IV contrast Imaging Routine Internal derangement of left knee Expected: 02/17/2024 (Approximate), Expires: 02/16/2025[facility] Work Phone: Comment on above:Expected: 02/17/2024 (Approximate), Expires: 02/16/2025Start: 02-17-2024 End: 73-85-6753Aevgbjd encounter afkgovumg62/06/2025 9:45 AM EST Office Visit [facility] [address] [place] [address] Adali Giordano, MACI [address] [place] [address] S/P left knee arthroscopy (Primary Dx); Left knee pain, unspecified chronicity; Arthritis of left kneeNOMS CI ORTHOPAEDICSComment on above:S/P left knee arthroscopy (Primary Dx); Left knee pain, unspecified chronicity; Arthritis of left kneeStart: 01-20-2024 End: 41-21-0922Jqeqqai encounter procedureNOMS CI ORTHOPAEDICSComment on above: S/P left knee arthroscopy (Primary Dx); Left knee pain, unspecified chronicity; Arthritis of left kneeStart: 12-31-2023 End: 23-63-4323Ldyicpy encounter rhyundppc08/19/2024 10:45 AM EST Office Visit [facility] [address] [place] [address] Abhi Ramires, WATCH ADJUSTER [address] [place] [address] ArrivedNOMS CI ORTHOPAEDICSComment on above:Arrived Start: 11-13-2023 End: 31-10-9772Zeyyxxt encounter procedureNOMS CI ORTHOPAEDICSComment on above: Arthritis of left knee (Primary Dx); S/P left knee arthroscopyStart: 10-16-2023 End: 66-60-1536Beskgam encounter procedureNOMS CI ORTHOPAEDICSComment on above: ArrivedStart: 45-12-3153Gxyzkiijr vaccinationInfluenza Vaccine (#1)[facility] HealthcareStart: 10-09-2023 End: 77-72-7430Prlkbee encounter jusegerwx98/28/2024 11:30 AM EDT Procedure Visit [facility] EX[facility] DEP Danielle Curran DO [address] [place] [address] [facility]OMS EXT DEPStart: 1950 Screening for malignant neoplasm of colonNOMS HealthcareComprehensive metabolic 2000 panel - Serum or PlasmaUniversity Hospitals Beachwood Medical CenterCT Lumbar spine WO contrastUniversity Hospitals Beachwood Medical CenterDXA Skeletal system.axial Views for bone densityUniversity Hospitals Beachwood Medical CenterPatient EducationKnow your [facility] Work Phone: Patient referralOhiohealth [facility] Medical Center Work Phone: XR Foot - right GE 3 ViewsUniversity Hospitals Beachwood Medical CenterXR Lumbar spine ViewsMelbourne Regional Medical Center Immunizations Immunization DateImmunizationNotesCare RamkxpcqDknacmft09-15-8764lcrosywcp, high dose seasonal, preservative-freeLaurita Morales MD Work Phone: [facility]10-02-2024influenza virus vaccine, unspecified formulationMartin Tatum 043-0105Cgwfsv-XtebxShelby Memorial Hospital Digestive Ugghhv64-08-3208 ABRYSVO - Respiratory syncytial virus (RSV), vaccine, bivalent, protein subunit RSV prefusion F, diluent reconstituted, 0.5 mL, PFGrant Ramires WATCH ADJUSTER Work Phone: [facility] HospitalCyxxcjimjw05-44-7842KYFQ-ZWP-3 (COVID-19) vaccine, mRNA, spike protein, LNP, PF, 50 mcg/0.5 mLGrant Ramires WATCH ADJUSTER Work Phone: [facility] HospitalOfjvqoluay21-54-0721Qhljhqggg, Seasonal, Quadrivalent, AdjuvantedGrant Ramires WATCH ADJUSTER Work Phone: [phone] HospitalPujzdhsppc13-08-5736camwwfadc virus vaccine, unspecified formulationGrant Ramires WATCH ADJUSTER Work Phone: [address] [place] [address] Digestive Mdnkyx26-48-2665 zoster vaccine recombinantGrant Ramires WATCH ADJUSTER Work Phone: [facility] HospitalKrzzrfunyj50-50-8075vpjlln vaccine recombinant Abhi Ramires WATCH ADJUSTER Work Phone: [facility] HospitalDgrfjjjtve93-98-3761mprzqdlrm virus vaccine, unspecified formulationMuhammad Levymini 087-1495Tqppxc-CyeheShelby Memorial Hospital Digestive Tcfuqu91-14-4139 Seasonal trivalent influenza vaccine, adjuvanted, preservative freeGrant Ramires WATCH ADJUSTER Work Phone: [facility] HospitalHcjxrfzngw59-83-7991QEMV-WjW-7 (COVID-19) mRNAMUL.ORD!m15234Tramgmth Sarmini [phone]-JcfheShelby Memorial Hospital Digestive [facility] HospitalComment on above:Result Comment: 2023-12-03: UDQ6629-58-2321JKSQN-60 mRNA-1273 (Moderna)MD Cy Sears Work Phone: [facility] Beachwood Medical CenterComment on above: Result Comment: 2023-12-03: YDH3297-74-5545yryyhocvj virus vaccine, split virus (incl. purified surface antigen)Laurita Morales Other [phone] Other 10297659-17-0269vwsnvxynf virus vaccine, unspecified formulationGrant Ramires WATCH ADJUSTER Work Phone: [facility] HospitalIgoymxyobk22-05-3222vrozboodu virus vaccine, unspecified formulationMaher SALAM [phone]-ZstafShelby Memorial Hospital Digestive Health 562585-49-1410ICHPH-30 mRNA-1273 (Moderna)MD Cy Sears Work Phone: [facility]02-18-2021SARS-CoV-2 (COVID-19) mRNA-1273 vaccineMuhammad Sarmini [phone]-BtcneShelby Memorial Hospital Digestive Ruosfp52-14-7191 COVID-19 mRNA-1273 (Moderna)MD Cy Sears Work Phone: [facility]10-09-2020influenza virus vaccine, split virus (incl. purified surface antigen)Laurita Morales Other [facility] [employer] Other 10137396-00-7039biqgqszmu virus vaccine, unspecified formulationGrant Ramires WATCH ADJUSTER Work Phone: [facility] HospitalVoumjeqzfy12-70-1838rlvncd vaccine, liveGrant Ramires WATCH ADJUSTER Work Phone: [facility] HospitalYspfmgactl24-42-3234vtltgajrkhtc polysaccharide vaccine, 23 valentGrant Ramires WATCH ADJUSTER Work Phone: [facility] HospitalUinqmogzjl27-14-8493tqszlloih virus vaccine, unspecified formulationMuhammad Sarmini [phone]-NmhlnShelby Memorial Hospital Digestive Uojbes21-53-4427 pneumococcal polysaccharide vaccine, 23 valentGrant Ramires WATCH ADJUSTER Work Phone: [facility] HospitalLkprozevss22-87-9033Sbjaaiwz trivalent influenza vaccine, adjuvanted, preservative freeGrant Katie WATCH ADJUSTER Work Phone: [facility] HospitalWgixjlovbb74-12-3195swztjnrpi virus vaccine, split virus (incl. purified surface antigen)Laurita Carmen Other [employer] Other 09561723-63-8312ojqxoddew virus vaccine, unspecified formulationMuhammad Sarmini 106-7328Uhljfl-ObflqKettering Health Troy09-13-2017 influenza, high dose seasonal, preservative-freeFermint Katie WATCH ADJUSTER Work Phone: [facility] HospitalPtuqwxvppj90-18-6681orshexswubih conjugate vaccine, 13 valentMarcia Morales Other [facility] [employer] Other 09777472-61-0916vwwrnpuab virus vaccine, unspecified formulationMuhammad Sarmini [phone]-TwroxKettering Health Troy09-27-2016 Seasonal trivalent influenza vaccine, adjuvanted, preservative freeAbhi Ramires WATCH ADJUSTER Work Phone: [facility] HospitalHezcoidxfh78-86-9078udbbxnmen virus vaccine, unspecified formulationMuhammad Sarmini [phone]-EvnsoKettering Health Troy10-06-2015 influenza, seasonal, injectable, preservative freeAbhi Ramires WATCH ADJUSTER Work Phone: noKansas City VA Medical CenterKzrznbvohs08-99-8946gnwybgt and diphtheria toxoids, adsorbed, preservative free, for adult use (5 Lf of tetanus toxoid and 2 Lf of diphtheria toxoid)Abhi Ramires WATCH ADJUSTER Work Phone: [facility] HospitalOtdqbchfkl52-80-5422jiokrat toxoid, reduced diphtheria toxoid, and acellular pertussis vaccine, adsorbedMarcia Morales Other nort [employer] Other 10-530798-24-9267hhuguxvqowhv polysaccharide vaccine, 23 valentMarcia Morales Other [facility] [employer] Other 02-629009-40-2610blgsex vaccine, liveGrant Katie WATCH ADJUSTER Work Phone: [facility] HospitalEoqwyxxodp02-09-3131gdwffihtg virus vaccine, unspecified formulationMuhameverton Segurai 479-1942Fvpkbp-SezjrShelby Memorial Hospital Digestive Pusoku60-18-3730 influenza, seasonal, injectableGrant Ramires WATCH ADJUSTER Work Phone: noKansas City VA Medical CenterYoshyjeayi32-67-5899xkdunjxpb B vaccine, adult dosageGrant Ramires WATCH ADJUSTER Work Phone: [facility] HospitalJycaqkvjdv57-51-3589tpnzpjcug B vaccine, adult dosageGrant Ramires WATCH ADJUSTER Work Phone: [facility] HospitalQtbqhecbex96-12-2721ikdnpqvwa B vaccine, adult dosageGrant Ramires WATCH ADJUSTER Work Phone: [facility] HospitalHbzyppcliv67-02-6573WO(adult) unspecified formulation; Translations: [Td(adult) unspecified formulation]Abhi Ramires WATCH ADJUSTER Work Phone: [facility] HospitalNEGATED: Highlighted row has not occurred!02-73-9852uciexnpva virus vaccine, unspecified formulationMaher KUNALAM [phone]-JodwcShelby Memorial Hospital Digestive Health Payers DatePayer CategoryPayerPolicy [id number] Health Insurance [id number] Health Insurance [id number] [id number] 2014Medicare [id number] [id number] [id number]-[id number] 2.16.840.1.046653.3.579.2.49517-88-5094Elslnyn7312944 2.16.840.1.922555.3.57[id number] 2.16.840.1.050202.3.579.2.46406-08-2762Sydpjkb4243787 2.16840.1.688319.3.579.2.87225-52-0911Qnlsmvz9942629 2.16840.1.816332.3.579.2.00385-48-0752Bliijnk2250804 2.16840.1.643383.3.579.2.85666-11-0286Vaucfdt8484826 2.840.1.420376.3.579.2.53997-43-5031Jhvfhaf6319915 2.16840.1.910642.3.579.2.17777-10-2945Znzrnxn9401210 2.16840.1.630174.3.579.2.85079-94-2902Guldreh6828872 2.840.1.486115.3.579.2.40812-17-1172Kbxvqga7061263 2.840.1.192559.3.579.2.23328-14-8110Lkgvvwv5481324 2.16840.1.316952.3.579.2.02291-46-4932Myrovfe5075091 2.16840.1.638170.3.579.2.97981-55-7763Xgqcpqx6039073 2.16840.1.108110.3.579.2.60417-68-2686Hopptnu0420016 2.16840.1.544384.3.579.2.77525-71-3095Oynzqwt9802635 2.16.840.1.801525.3.579.2.20684-56-9027Eypijzx7787956 2.16.840.1.782602.3.579.2.74881-62-3762Dpygrvp79332923 2.16840.1.365592.3.579.2.46946-38-9519Dnjbgol13228419 2.16840.1.487295.3.579.2.33178-72-1849Pdlkfha01210266 2.840.1.612498.3.579.2.18379-05-3751Ukgimtk48800972 2.840.1.878199.3.579.2.492352-44-2603Rmhtrmp82964660 2.840.1.257611.3.579.2.717837-96-2304Tblglgp2433642 2.840.1.578641.3.579.2.546511-68-3169Dxbgubb2039771 2.840.1.737328.3.579.2.956006-26-9265Otlvbvn1456787 2.840.1.733477.3.579.2.212968-11-1067Dvienvx0317440 2.840.1.622650.3.579.2.740196-77-3779Fbrdmbw9812056 2.840.1.782947.3.579.2.209323-64-3880Ypgmjtr5927276 2.16840.1.269972.3.579.2.940385-90-7673Iiwyybg0625733 2.16840.1.221688.3.579.2.843042-90-5293Mygrokh4532694 2..0.1.415106.3.579.2.129431-15-5043Jcjebbi4784703 2.0.1.848205.3.579.2.078216-96-8238Fornphw7989018 2.0.1.513442.3.579.2.136065-25-6164Wtxeamm0020112 2.0.1.004121.3.579.2.671001-28-1187Hsecizy4596213 2.0.1.384799.3.579.2.473980-77-8922Wlrnpbp4051587 2.0.1.259777.3.579.2.174202-94-1452Xstfaym7380335 2.0.1.312417.3.579.2.347595-90-5069Hdrbrra913989503 2.0.1.990084.3.579.2.04367-49-8578Kzpvjvq994670300 2.0.1.019102.3.579.2.41780-78-1064Zwgqvpq73764082 2.0.1.49[id number] 050ab080-k4ho-6w45-030v-7d556l355m98Jhtqsgv12279705 2.0.1.420656.3.579.2.993Ebhhhba28014125 2.0.1.781982.3.579.2.531 Social History DateTypeDetailFacilityTobacco smoking status NHISUnknown if ever smokedPeoples Hospital Work Phone: Start: 95-14-6716Rbe Assigned At BirthFeProtestant Hospitaltart: 05-10-2021 End: 90-62-2664Vfshxeo smoking statusHeavy tobacco smoker (finding)[facility] Start: 09-10-2023 End: 00-05-5116Qga Assigned At BirthFemalMadison Health Digestive Health Start: 39-69-3292Biwlcjn smoking status NHISSmoker (finding)[facility] Centertart: 08-26-2023 End: 19-62-7075Bsctoxe smoking status NHISSmokes tobacco dailyNOMS Healthcare History of tobacco useCigarette SmokerNOMS HealthcareStart: 12-86-6146Pjgdges use and exposureSmokeless tobacco non-userNOMS HealthcareStart: 09-10-2023 End: 96-88-8439Cwrymjvsl beverage intakeCurrent drinker of alcohol (finding)[facility] HealthcareStart: 09-10-2023 End: 42-15-9813Ugbtyym of Social functionNOMS HealthcareStart: 96-67-2482Ppr assigned at birthNot on fileNOMS HealthcareTobacco smoking statusNeverMemorial Health [facility] HealthStart: 13-27-0915Oaldrmq smoking status NHISEx-smoker (finding)[facility]: 72-90-7633Slg Female (finding)[facility]art: 62-23-4570Oudqgxd CommentOccationallyNOMS HealthcareStart: 87-11-7278SKIX Follow upSDOH [facility] Work Phone: Medical Equipment Procedure CodeEquipment CodeEquipment Original TextEquipment IdentifierDates Spinal fusion graft [id number] FDAStart: 73-91-1944Rgqy-screw internal spinal fixation system, non-sterile+[id number] FDAStart: 65-66-0099Hryf-screw internal spinal fixation system, non-sterile +[id number] FDAStart: 91-85-4368Vgsz-screw internal spinal fixation system, non-sterile+[id number] FDAStart: 92-53-0281Phmt-screw internal spinal fixation system, non-sterile+[id number] FDAStart: 98-52-2183Xeaqeeavc spinal fusion cage, non-sterile()[id number] FDAStart: 11-26-2024 Polymeric spinal fusion cage, non-sterile()[id number] FDA Start: 47-54-7140Rpmw-screw internal spinal fixation system, non-sterile +[id number] FDAStart: 11-26-2024 Functional Status IbgvSdoznkunvpBatrzmIizzeczp99-16-8672Qcfmrpfubd StatusN/[facility] Hmgxhk22-81-9331Jdjaedowif StatusN/[facility]12-04-2024Functional StatusN/[facility] 91-71-3508Weebhxnrep StatusN/[facility] 63-76-6302Yiujuclroo StatusN/[facility] Clinical Notes 01-24-2021 to 11-27-2024 Note Date & ByloYjwlZoqwdktg63-37-9708 Hospital Discharge instructionsAmbulatory Orders* Initiate Home Health [...] [facility] Phone: 1(507) 590-383408-20-2025 Evaluation note* Diagnosis Onset Date Resolution Status Admit Date Right foot pain acuteAugust 2024 9:36amAnxietyacuteSeptember 2024 8:50am Hyperlipidemia, unspecifiedacuteSeptember 2024 8:50amHypothyroidacute October 19, 2024 8:50amMedicare annual wellness visit, subsequentacute October 19, 2024 8:50amRight foot painacuteSeptember 2024 8:50am Ulcerative (chronic) pancolitis without complicationsacuteSept2024 8:50amLumbar radiculopathyacuteSeptember 2024 8:45am [facility] Work Phone: 1(969) 234-720008-20-2025 Evaluation note* Diagnosis Onset Date Resolution Status Admit Date Right foot pain acuteAugust 2024 9:36amAnxietyacuteSeptember 2024 8:50am Hyperlipidemia, unspecifiedacuteSept2024 8:50amHypothyroidacute October 19, 2024 8:50amMedicare annual wellness visit, subsequentacute October 19, 2024 8:50amRight foot painacuteSeptember 2024 8:50am Ulcerative (chronic) pancolitis without complicationsacuteSept2024 8:50amLumbar radiculopathyacuteSeptember 2024 8:45amLumbar radiculopathy acuteSeptember 2024 10:58am [facility] Work Phone: 1(951) 820-602908-20-2025 Evaluation note* Diagnosis Onset Date Resolution Status Admit Date Right foot pain acuteAugust 2024 9:36amAnxietyacuteSeptember 2024 8:50am Hyperlipidemia, unspecifiedacuteSeptember 2024 8:50amHypothyroidacute October 19, 2024 8:50amMedicare annual wellness visit, subsequentacute October 19, 2024 8:50amRight foot painacuteSeptember 2024 8:50am Ulcerative (chronic) pancolitis without complicationsacuteSept2024 8:50amLumbar radiculopathyacuteSeptember 2024 8:45amLumbar radiculopathy acuteSeptember 2024 10:58amLumbar radiculopathyacuteOctober 2024 9:29am [facility] Work Phone: 1(454) 475-963408-20-2025 Evaluation note* Diagnosis Onset Date Resolution Status [...] 9:37amLumbar radiculopathyacuteOctober 2024 9:29amLumbar radiculopathyacuteOctober 2024 5:45am [facility] Work Phone: 1(609) 320-490008-20-2025 Evaluation note* Diagnosis Onset Date Resolution Status [...] 9:29amLumbar radiculopathyacuteOctober 2024 5:45amLumbar radiculopathyacuteOctober 2024 12:58pm [facility] Work Phone: 1(534) 851-680607-10-2025 History of Present illness Narrative* DOMINGA Monroy [...] year, seeing Dr. Marino and podiatry in [place] before being diagnosed with a pinched nerve [...] requiring urgent evaluation. Visit was preformed using [employer]-lumber tying machine operator speech recognition. documented in this encounterSelect Specialty [id number] History of Present illness Narrative* DOMINGA Monroy [...] requiring urgent evaluation. Visit was preformed using [employer]-lumber tying machine operator speech recognition. documented in this [facility]06-11-2025 Instructions* Patient Instructions* DOMINGA Monroy [...] more than 10 mins documented in this [facility]05-23-2025 Telephone encounter Note* Telephone Encounter - Abhi Ramires NP - 07/03/2024 7:17 AM EDT Post op pain rx. PDMP reviewed [facility] [id number] Miscellaneous Notes* Telephone Encounter - Abih Ramires NP - 07/03/2024 7:17 AM EDT Post op pain rx. PDMP reviewed documented in this encounterSelect Specialty [id number] History of Present illness Narrative* DOMINGA Monroy [...] COLONOSCOPY 01/15/24 KNEE ARTHROSCOPY W/ [place] OTHER SURGICAL HISTORY Right TAMICA CORONA PUT [...] and proposed surgery scheduled. WALKER SENT TO [facility] [place] LAB WORK SENT TO [facility] PRE AUTH MEDICARE APPROVED Follow up in about 4 weeks (around 07/21/2024) for Post-Op July 22 @ 11:15 in the [place] locationwith Dolly Veras. documented in this encounterSelect Specialty [id number] History of Present illness Narrative* Jr. Larissa Guerrero, DO - 05/13/2024 9:00 AM EDT Images from the original note were not included. Jennifer appreciatedHISTORY OF PRESENT ILLNESS: EST PT Alexandra Cervantes is an 74 y.o. @ female. (EST PT) - RECHECK (R) KNEE ; S/P MDP 04/15/24 ; S/P MRI @[facility] 04/24/24 : ADMITS B/L KNEE PAIN - R>L XRAY B/L KNEE 08/26/23 IN EPIC MRI @[facility] 04/24/24 MDP 04/15/24 NO CORTISONE INJ NO PT PAIN MGMT @[facility] (BACK) (R) KNEE: S/P MDP [...] of medial meniscus noted on MRI from [facility]. Questions answered in laymen terms at the bedside. The diagnosis, home exercise plan and any ongoing restrictions/ recommendations reviewed. If unable to be reached in office, I recommend evaluation at nearest Emergency Room if any symptoms worsened or new symptoms develop for requiring urgent evaluation. documented in this encounterSelect Specialty [id number] History of Present illness Narrative* Jr. Larissa Guerrero DO - 03/18/2024 10:45 AM EST Images from the original note were not included. HISTORY OF PRESENT ILLNESS: EST PT Alexandra Cervantes is an 74 y.o. @ female. (EST PT) (LAST APPT WITH [facility]) - RECHECK (L) KNEE S/P MRI @[facility] (02/25/24) ; S/P (L) KNEE SCOPE (DR. CURRAN) (10/09/23) (5 MONTHS, 1 WK, 1 DAY) XRAY B/L KNEE 08/26/23 IN EPIC XRAY (L) KNEE (02/09/23) IN CHANGE MRI @[facility] 02/25/24 MDP 12/31/23 (50% IMPROVEMENT) CORTISONE INJ (01/20/24) (70-80% IMPROVEMENT) NO PT PAIN MANAGEMENT @ [facility] (BACK) STATES INJECTION 01/20/24 ONLY [...] for requiring urgent evaluation. documented in this [facility]01-20-2025 Miscellaneous Notes* Telephone Encounter - Tyra Feliz - 03/02/2024 10:12 AM EST Patient called and left vm requesting a call for here MRI results. documented in this [facility]01-20-2025 Telephone encounter Note* Telephone Encounter - Tyra Feliz - 03/02/2024 10:12 AM EST Patient called and left vm requesting a call for here MRI results. [facility] [id number] History of Present illness Narrative* Adali Giordano [...] f/u s/p MRI to be done at [facility] documented in this encounterSelect Specialty [id number] Evaluation + Plan note Future Scheduled Tests [...] 03/17/24 * Hepatitis B Surface Antigen 03/17/24 [facility] [id number] History of Present illness Narrative* Adali Giordano [...] and she understands this. documented in this encounterSelect Specialty HospitalOkbdpwvpkx75-46-8089 Hospital Discharge instructions Patient Education 01/15/2024 13:05:31 Gastritis, Adult, Lhxf-rm-Iugi Gastritis, Adult Gastritis is irritation and swelling [...] Follow these instructions at home: Medicines Take fyzd-bqp-grkmvxd and prescription medicines only as told by [...] provider. Document Revised: 06/03/2021 Document Reviewed: 06/03/2021 [employer] Patient Education 2023 [employer] 01/15/2024 13:05:27 Endoscopy, Care After Procedure [facility]) Endoscopy Care After Procedure Please read the instructions outlined below and refer to this sheet in the next few weeks. These discharge instructions provide you with general information on [facility] Your [facility] may also give you [...] blood. Document Released: 09/11/2004 Document Re-Released: 07/22/2006 [facility] Patient Information [employer] 01/15/2024 13:05:22 Hemorrhoids, Xqnk-rc-Cgus Hemorrhoids Hemorrhoids are swollen veins that may [...] Follow these instructions at home: Medicines Take qefp-vqn-craaprj and prescription medicines only as told by [...] provider. Document Revised: 10/10/2022 Document Reviewed: 10/10/2022 [employer] Patient Education 2023 [employer]. 01/15/2024 13:05:13 Ulcerative Colitis, Adult Ulcerative Colitis, [...] instructions at home: Medicines and vitamins Take kixb-kax-ksgxjyd and prescription medicines only as told by [...] and water are not available, use hand bellows filler. Stay up to date on your vaccinations, [...] information about ulcerative colitis at the National [place] of Diabetes and Digestive and Kidney Diseases [...] Document Reviewed: 10/04/2020 [employer] Patient Education 2023 [employer]. 01/15/2024 13:05:09 Colonoscopy, Care After Surgery Salam [...] severe or gets worse throughout the day. [facility] 12-04-2024 Evaluation + Plan noteExtracted from:Title: RAY Post-operative Note---GeneralAuthor:Jose ALARCON, Danielle CanoDate:01/15/24 Plan Transfer/Discharge: Transfer/Discharge Discharge when meets criteria ( To home ). Extracted from:Title:RAY Pre-operative Note uthor:Jose ALARCON, Danielle CanoDate: 01/15/24 Plan [place] [employer] Anesthesiologists (ASA) physical status classification: Class II. Anesthetic Preoperative Plan: Anesthesia General. Extracted from:Title:1Preop H&PAuthor:Martin Tatum MDate:01/15/24 Impression and Plan Impression: Ulcerative colitis, chronic diarrhea Plan: -EGD and Colonoscopy Future Appointments Appointment Date:01/30/2024 01:45:00 PM Scheduled Provider:Martin Tatum MD Location:[facility] Appointment Type:[facility] Follow Up Diagnostic Tests Pending * Enteric Panel by PCR 01/15/24 * Clostridium Difficile PCR 01/15/24 * Hep B Core Ab, Tot 01/15/24 * Hepatitis B Surface Antibody 01/15/24 * Hepatitis B Surface Antigen 01/15/24 * Quantiferon-TB Plus (Client Incubated) 01/15/24 [facility] 11-19-2024 History of Present illness [...] develop for requiring urgent evaluation. Abhi Ramires PLANNING ENGINEER-LINTER SAW SHARPENER documented in this encounterSelect Specialty [id number] History of Present illness Narrative* Adali Giordano [...] do activities as tolerated. documented in this encounterSelect Specialty HospitalXffioczlhg27-11-2813 History of Present illness Narrative* Adali Giordano [...] as tolerated, f/U prn documented in this encounterSelect Specialty [id number] History of Present illness Narrative* Larissa Mei [...] for requiring urgent evaluation. documented in this encounterSelect Specialty HospitalZphvyircau46-24-1162 Telephone encounter Note* Telephone Encounter - Abhi Ramires NP - 10/08/2023 3:02 PM EDT Post op pain rx. PDMP reviewed [facility] [id number] Miscellaneous Notes* Telephone Encounter - Abhi Ramires NP - 10/08/2023 3:02 PM EDT Post op pain rx. PDMP reviewed documented in this encounterSelect Specialty [id number] Evaluation note* Encounter Date Diagnosis Assessment Notes [...] continue to monitor through routine blood work [facility] Other 08-10-2023 Evaluation note* Encounter Date Diagnosis Assessment Notes Treatment Notes Treatment Clinical Notes Sep, Right foot pain (ICD-10 - M79.67 1) [facility] Other 07-25-2023 Evaluation note* Encounter Date Diagnosis [...] (ICD-10 - E03.9)Chronic problem due for labs. 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 [facility] Other 12-08-2022 NoteCONSULTATION PROCEDURE DATE: 01/18/2022 PREOPERATIVE [...] will be followed up in the office.[facility] [id number] NoteCONSULTATION CONSULTATION DATE: 01/18/2022 HISTORY OF PRESENT [...] in three months' time, unless otherwise indicated.[facility] [id number] Evaluation + Plan note Diagnostic Tests Pending * CBC w/ Auto Diff 11/08/21 * Comprehensive Metabolic Panel 11/08/21 [facility] 09-08-2022 NoteCONSULTATION PROCEDURE [...] will be followed up in the office.[facility] 10-19-2021 NoteCONSULTATION CONSULTATION DATE: 10/19/2021 [...] in three months' time unless otherwise indicated.[facility] [id number] NoteCONSULTATION CONSULTATION DATE: 09/06/2021 HISTORY OF PRESENT [...] 8/10. She has been following up with [facility] and had a benign [...] procedure, and patient agrees to move forward.[facility] [id number] NoteCONSULTATION PAIN MANAGEMENT CONSULTATION HISTORY: This is [...] by: ROBERTO MCNALLY . 04/27/2021 12:41:00[facility]12-14-2021 Hospital Discharge instructions Follow Up Care 01/24/2021 10:04:31 With:JANINA ALARCON, LENORE Farooq, [facility] Address: [facility] [address] [place] [address]- When:6 months [facility] Evaluation + Plan note Future Appointments Appointment Date:11/08/2021 10:15:00 AM Scheduled Provider:Capri FULLER MD Location:[facility] Appointment Type:[facility] Follow Up Future Scheduled Tests Laboratory* CBC w/ Indices 07/25/20 * Comprehensive Metabolic Panel 07/25/20 [facility] Evaluation + Plan note Future Appointments Appointment Date:01/15/2024 12:00:00 PM Scheduled Provider: Location:[facility] Services Appointment Type:Surgery FT Appointment Date:01/30/2024 01:45:00 PM Scheduled Provider:Martin Tatum MD Location:[facility] Appointment Type:[facility] Follow Up Future Scheduled Tests Laboratory* O & P Exam, Routine 12/04/23 * Clostridium Difficile PCR 12/04/23 * Enteric Panel by PCR 12/04/23 [facility] Evaluation + Plan note Future Appointments Appointment Date:01/15/2024 12:00:00 PM Scheduled Provider: Location:[facility] Appointment Type:Surgery FT Appointment Date:01/30/2024 01:45:00 PM Scheduled Provider:Martin Tatum MD Location:[facility] Appointment Type:[facility] Follow Up Diagnostic Tests Pending * Celiac Disease Comprehensive 12/04/23 Future Scheduled Tests Laboratory* O & P Exam, Routine 12/04/23 * Clostridium Difficile PCR 12/04/23 * Enteric Panel by PCR 12/04/23 [facility] evaluation + Plan note Future Appointments Appointment Date:01/15/2024 12:00:00 PM Scheduled Provider: Location:[facility] Services Appointment Type:Surgery FT Appointment Date:01/30/2024 01:45:00 PM Scheduled Provider:Martin Tatum MD Location:[facility] Appointment Type:BAD Follow Up Diagnostic Tests Pending * O & P Exam, Routine 12/06/23 [facility] evaluation + Plan note Future Appointments Appointment Date:04/29/2024 09:15:00 AM Scheduled Provider:Martin Tatum MD Location:[facility] Appointment Type:BAD Follow Up Future Scheduled Tests Laboratory* Calprotectin, Fecal 01/30/24 [facility] evalubgacw noteNo assessment information available [facility] Work Phone: evalufjbnb note* Diagnosis Arthritis of left knee- Primary [...] of left knee documented in this encounter [facility] HealthcareEvaluation note* Diagnosis Acute pain of left knee- Primary Acute pain of right knee Acute medial meniscus tear of right knee, initial encounter documented in this encounter [facility] HealthcareEvaluation note* Diagnosis Onset Date Resolution Status Admit Date Anxiety acuteMarch 2024 8:49amUlcerative (chronic) pancolitis without complicationsacuteMarch 2024 8:49am [facility] Work Phone: Evaluation note* Diagnosis Acute pain of right knee- Primary Acute medial meniscus tear of right knee, initial encounter documented in this encounter [facility] HealthcareEvaluation note* Diagnosis Pre-op examination- Primary documented in this encounter [facility] HealthcareEvaluation note* Diagnosis Pre-op examination- Primary Localized osteoarthritis of right knee documented in this encounter [facility] HealthcareEvaluation note* Diagnosis Acute medial meniscus tear of right knee, initial encounter- Primary documented in this encounter [facility] HealthcareEvaluation note* Diagnosis S/P right knee arthroscopy- Primary documented in this encounter [facility] HealthcareEvaluation note* Diagnosis S/P right knee arthroscopy- Primary documented in this encounter [facility] HealthcareEvaluation note* Diagnosis Onset Date Resolution Status Admit Date Right foot pain acuteAugust 2024 9:36am [facility] Work Phone: History general Narrative - Reported* Type Description Date Medical History GERD Medical HistoryHypothyroidMedical HistoryDepressionSurgical HistoryAppendectomy Surgical HistoryTubal LigationSurgical HistoryRight carpal tunnelSurgical HistoryRight fingerSurgical HistoryTumor removal right thyroid04/2021 Hospitalization HistorySee past surgical hx [facility] Other Hospital course Narrative No data available for this section [facility] Hospital Discharge instructions No data available for this section [facility] Hospital Discharge instructionsAmbulatory Orders* Referral to Neurology Time Frame: 09/30/24, Location: None Selected [facility] Work Phone: Progress note No data available for this section [facility] Reason for referral (narrative)No reason for referral information availableOhiohealth Grant Medical Center Work Phone: Reason for visit Narrative* Consultation (Routine) - AuthorizedSpecialtyDiagnoses / ProceduresReferred By ContactReferred To ContactPhysical Therapy Diagnoses Pre-op examination Procedures [place] OFFICE/OUTPATIENT [facility] 60 MINUTES Dolly Veras PA [address] [facility] [address] [place] [address] Phone: tel: fax: Sofia Bull PT Referral IDStatusReasonStart DateExpiration DateVisits RequestedVisits [id number] Consult and Treat [facility] Healthcare Chief Complaint and Reason for [...] 19, 2024 8:50am Medicare annual wellness visit, [facility] October 19, 2024 8:50am Right foot [...] 19, 2024 8:50am Medicare annual wellness visit, [facility] October 19, 2024 8:50am Right foot [...] pain (M79 .671) Referral Organization [facility] Referring Provider First Name Laurita Referring Provider Last Name Carmen Referring Provider [facility] Referred Organization [facility] Referred Provider AlexSeymour Referred Address [address] [place], [place],[address] Referred Provider Specialty Podiatry - S urgical [...] DateEnd Date Laurita Morales MD [address] [place] [address] [facility] - [facility]/23Team MemberRelationshipSpecialtyStart DateEnd Date Laurita Morales MD [address] [place] [address] [facility]08/26/23Team MemberRelationshipSpecialtyStart DateEnd Date Laurita Morales MD [address] [place] [address] [facility]08/26/23Team MemberRelationshipSpecialtyStart DateEnd Date Laurita Morales MD [address] [place] [address] PCP - GeneralFamily Medicine08/26/23Team MemberRelationshipSpecialtyStart DateEnd Date Laurita Morales MD [address] [place] [facility] [address] PCP - GeneralFamily Medicine08/26/23Team MemberRelationshipSpecialtyStart DateEnd Date Laurita Morales MD [address] [place] [facility] [address] PCP - GeneralFamily Medicine08/26/23Team MemberRelationshipSpecialtyStart DateEnd Date Laurita Morales MD [address] [place] [facility] [place] [address] PCP - GeneralFamily Medicine08/26/23Team MemberRelationshipSpecialtyStart DateEnd Date Laurita Morales MD [address] [place] [facility] [address] PCP - GeneralFamily Medicine08/26/23Team MemberRelationshipSpecialtyStart DateEnd Date Laurita Morales MD [address] [place] [facility] [place] [address] PCP - GeneralFamily Medicine08/26/23Team MemberRelationshipSpecialtyStart DateEnd Date Laurita Morales MD [address] [place] [facility] [place] [address] PCP - GeneralFamily Medicine08/26/23Team MemberRelationshipSpecialtyStart DateEnd Date Laurita Morales MD [address] [place] [facility] [place] [address] PCP - GeneralFamily Medicine08/26/23Team MemberRelationshipSpecialtyStart DateEnd Date Laurita Morales MD [address] [place] [facility] [place] [address] PCP - GeneralFamily Medicine08/26/23 Team Status: Inactive Member Role Status Dates Laurita Morales MD Primary Care Provide r, Attending Provider Active Start: April 21, 2024 End: April 21, 2024Team MemberRelationshipSpecialtyStart DateEnd Date Laurita Morales MD [address] [place] [facility] [place] [phone] PCP - GeneralFamily Medicine08/26/23Team MemberRelationshipSpecialtyStart DateEnd Date Laurita Morales MD [address] [place] [facility] [address] PCP - GeneralFamily Medicine08/26/23Team MemberRelationshipSpecialtyStart DateEnd Date [...] DateEnd Date Laurita Morales MD [address] [place] [facility] [place] [address] PCP - GeneralFamily Medicine07/16/24Team MemberRelationshipSpecialtyStart DateEnd Date Laurita Morales MD [address] [place] [facility] [place] [address] [facility] - [facility]07/16/24Team MemberRelationshipSpecialtyStart DateEnd Date Laurita Morales MD [address] [place] [facility] [place] [phone] PCP - Generalmi Medicine07/16/24 Team Status: Inactive [...] section and content) DATE CREATED AUTHOR 05/23/2021 [facility] DATE CREATED AUTHOR AUTHOR'S ORGANIZ ATION 01/23/2022 [facility] DATE CREATED AUTHOR AUTHOR'S ORGANIZ ATION 12/03/2023 [facility] DATE CREATED AUTHOR AUTHOR'S ORGANIZ ATION 12/08/2023 [facility] DATE CREATED AUTHOR AUTHOR'S ORGANIZ ATION 12/10/2023 [facility] DATE CREATED AUTHOR AUTHOR'S ORGANIZ ATION 12/12/2023 [facility] DATE CREATED AUTHOR AUTHOR'S ORGANIZ ATION 01/23/2024 [facility] DATE CREATED AUTHOR AUTHOR'S ORGANIZ ATION 01/25/2024 [facility] DATE CREATED AUTHOR AUTHOR'S ORGANIZ ATION 02/03/2024 [facility] DATE CREATED AUTHOR AUTHOR'S ORGANIZ ATION 08/24/2024 [facility] DATE CREATED AUTHOR AUTHOR'S ORGANIZ ATION 08/28/2024 [facility] DATE CREATED AUTHOR AUTHOR'S ORGANIZ ATION 12/16/2024 [facility] DATE CREATED AUTHOR AUTHOR'S ORGANIZ ATION 12/22/2024 [facility] REASON FOR VISIT (unrecogniz ed section and content) QgkjbjRhsbtcijNakfgi-syPwgmkhUsbmbvzrVeoeXpfpvzRocrsiavWeczlk-ijUimtpzBtfot Date PiowrwafDIY08/20/2025ReasonCommentsPre-op ExamReasonCommentsPost-op FOR RECORDS PERTAINING TO PATIENTS WHO [...] BE BASED ON THE PRIMARY CLINICAL RECORDS. [facility] [employer] [facility]. provides no warranty or guarantee of the accuracy or completeness of information in this document.
[2024-12-23] MEDS: ACETAMINOPHEN 325 MG TABLET 650 MG PO (13:57)
[2024-12-23] MEDS: ENOXAPARIN SODIUM 40 MG/0.4 ML SYRINGE SUBQ (13:57)
[2024-12-23] MEDS: GABAPENTIN 300 MG CAPSULE PO (13:59)
--- NOTE | 2024-12-23 14:59 | SWNOTE1 ---
[facility] able [facility] and [facility] can take her today. AMY let Dr. Jackson know. Discharge is complete. AMY faxed dc med rec to [facility]. AMY did ask [facility] if they had transport and they do not. [facility]Y called [facility] and they do not have availability. SW to set up stretcher transport. Pt did have recent lumbar fusion and has back pain. AMY updated the patient. She is going to call her friend and update her and her friend will take care of her pets at home. Pt is in agreement with any kind of transport. AMY called [facility] and transport is set for 16:10. AMY notified [facility] and pt's nurse of dc time. SW to let pt know. completed [facility] form and took packet out to med/surge.
--- NOTE | 2024-12-23 15:10 | SWNOTE1 ---
SW completed PAS[facility] online and sent results to [facility] and put copy in chart.
--- NOTE | 2024-12-23 16:09 | P.IMHP_ITS ---
Internal Medicine - H&P: HPI History of Present Illness Chief complaint: WEAKNESS [facility] Narrative: Miss Cervantes is a 74-year-old female with a past medical history of chronic painSecondary to what sounds like lumbar degenerative disc disease complicated with radiculopathy to the right leg. She has been seeing pain management for some time now had received numerous injections with no relief, medical therapy has not done much to improve her pain. Approximately 1 month ago she had surgery for what she tells me was a L2-L5 fusion, she says her radicular pain down the right leg has improved greatly since then, she was in the hospital for approximately 4 days for that surgery, she was subsequent discharged home, she has had some residual right hip pain and right lower back pain since the surgery which is well-controlled with her home dose of oxycodone 5 mg every 6 hours. She had a home health at home and help from a few other people, she felt like she was doing well initially however for over the past months she has slowly declined. Today she presents to the emergency room and she was covered in stool, she was dehydrated. She denies any falls at home since her surgery. Her biggest complaint for me today is pain when she goes from laying to sitting or sitting to standing or trying to sit back down. She says when she is actually up and ambulating she feels she can do okay. Review of Systems ROS Status of ROS 10 or more systems reviewed and unremark able except as noted in history and below 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 - Neoplasm of unspecified behavior of endocrine glands and other parts of nervous system (ICD-10) Carpal tunnel syndrome ?G56.00 - Carpal tunnel syndrome, unspecified upper limb (ICD-10) Sleep apnea ?G47.30 - Sleep apnea, unspecified (ICD-10) Surgical History (Updated 12/23/24 @ 12:28 by Tesha Vilchis) History of lumbar fusion ?Z98.1 - Arthrodesis status (ICD-10) History of tubal ligation ?Z98.51 - Tubal ligation status (ICD-10) History of appendectomy ?Z90.49 - Acquired absence of other specified parts of digestive tract (ICD- 10) History of carpal tunnel release ?Z98.890 - Other specified postprocedural states (ICD-10) Social History (Updated 12/23/24 @ 12:29 by Tesha Vilchis) Within the past year, how often did you have a drink containing alcohol: monthly or less Within the past year, how often did you have six or more drinks on one occasion: never Smoking status: Current every day smoker Non-prescribed substance use: denies use Previous occupational history: Retired [employer] Work[employer] Highest level of school completed/degree received: some college, no degree Do you want help with school or training: No Are you now , , , , never or living with a partner: never In a typical week, how many times do you talk on the telephone with family, friends, or neighbors: twice per week How often do you get together with friends or relatives: twice per week How often do you attend caodaism or sabianist services: never Do you belong to any clubs or organizations such as caodaism groups unions, [place] or athletic groups, or school groups: no Total score: 1 Score interpretation: A score of less than or equal to 1 indicates the most socially isolated. Little interest or pleasure in doing things: not at all Feeling down, depressed, or hopeless: not at all Feel stressed/tense/nervous/anxious/difficulty sleeping: not at all Due to disability, difficulty making decisions: No Do you think of yourself as: straight/heterosexual Gender Identity: female Meds Home Medications and Allergies Home Medications ?Medication ?Instructions ?Recorded ?Confirmed ?Type escitalopram oxalate 20 mg tablet 20 mg PO DAILY 09/0912/23/24 History levothyroxine 75 mcg tablet 75 mcg PO DAILY 09/10/23 1 02/23/24 History omeprazole 40 mg capsule,delayed 40 mg PO DAILY 12/23/24 History release simvastatin 40 mg tablet 40 mg PO DAILY 09/10/2312/12 History naproxen sodium 220 mg capsule 220 mg PO BID PRN pain 08/19/24 12/23/24 History (Aleve) acetaminophen 325 mg tablet 650 mg (2 x 325 mg) PO Q4H PRN 12/23/24 Rx (Tylenol) Pain 3 days #18 tabs buspirone 15 mg tablet 15 mg PO BID 12/23/24 History gabapentin 600 mg tablet 300 mg (1/2 x 600 mg) PO TID #135 12/23/24 Rx tabs oxycodone-acetaminophen 5 mg-325 1 tab PO Q4H PRN back /hip pain #18 12/23/24 Rx mg tablet tabs Allergies Allergy/AdvReac Type Severity Reaction Status Date / Time No Known Drug Allergies Allergy Verified 12/23/24 06:46 Exam Narrative Exam Narrative: General: Awake alert, no acute distress, laying in bed comfortably. HEENT: head atraumatic, normocephalic, moist mucous membranes Neck: supple no masses, no lymphadenopathy CVS: regular rate and rhythm, no murmurs or gallops Respiratory: clear to auscultation bilaterally, and attempts to listen to her lungs I tried to get her to sit up from laying down, she had a flare in her right lower back and she was unable to sit up without large amounts of assistance. GI: soft, nondistended, nontender, positive bowel sounds with no organomegaly Extremity: moves all extremities, no restrictions of movements, no calf tenderness, no edema Neuro: AOx3, CN II-VII intact. Moves all extremities in all planes of motion. Skin: dry, intact no rashes or lesions Constitutional Vital Signs, click to edit/add: Last Vital Signs Temp 98.2 F 12/23/24 15:09 Pulse 85 12/23/24 15:09 Resp 16 12/23/24 15:09 BP 159/66 H 12/23/24 15:09 Pulse Ox 96 12/23/24 15:09 O2 Del Method Room Air 12/23/24 15:09 Internal Medicine - H&P: Reslt Labs Labs: Short CBC 12/23/24 Range/Units 07:00 WBC 8.6 (4.0-11.0) 10^3/uL Hgb 9.0 L (12.0-16.0) g/dL Hct 28.3 L (36.0-48.0) % Plt Count 284 (150-450) 10^3/uL BMP 12/23/24 07:00 Sodium 141 Potassium 3.6 Chloride 103 Carbon Dioxide 26.9 BUN 10.0 Creatinine 0.65 Glucose 116 H Calcium 8.8 Liver Function 12/23/24 Range/Units 07:00 Total Bilirubin 0.4 (0.2-1.0) mg/dL AST 15 (15-37) U/L ALT 19 (14-59) U/L Alkaline Phosphatase 183 H (46-116) U/L Albumin 2.8 L (3.4-5.0) g/dL Urine 12/23/24 Range/Units 08:55 Urine Color Lt. yellow (YELLOW) Urine Clarity Clear (CLEAR) Urine pH 6.0 (5.0-9.0) Ur Specific [place] 1.010 (1.005-1.025) Urine Protein Negative (NEG/TRACE) mg/dL Urine Glucose (UA) Negative (NEGATIVE) mg/dL Urinary Catheter Management Urinary Catheter Management Straight: Cath placed during this visit: yes Urethral indwelling: No Insertion date: 12/23/24 Insertion time: 08:55 Assessment and Plan Assessment and Plan (1) Diarrhea: Assessment and Plan: She was taking a stool softener at home ? Has resolved this point in time (2) Degenerative disc disease (DDD) of lumbar region with discogenic back pain and leg pain: Assessment and Plan: ? Status post what seems to be L2-L5 fusion roughly 1 month prior with neurosurgery, I do not have access to these records ? PT OT ? She had a 3 to 4-day hospital stay in mid November ? She would likely benefit greatly from a penitentiary facility upon discharge ? CBC, BMP, urinalysis were completely normal in the emergency room. Plan Discharge to SNF later on today
--- NOTE | 2024-12-23 16:14 | P.DS_ITS ---
DS: Providers Provider Date of admission: 12/23/24 10:43 Primary care physician: Danyell Kelly MD Consults: 12/23/24 09:46 Occupational Therapy Eval and Treat Routine Reason for consultation: eval and treat Physical Therapy Eval and Treat Routine Reason for consultation: eval and treat Discharging clinician: RENEE TRAVIS Anticipated date of discharge: 12/23/24 DS: Diagnosis Discharge Diagnosis (1) Diarrhea: (2) Degenerative disc disease (DDD) of lumbar region with discogenic back pain and leg pain: DS: Summary Hospital Course Hospital Course: Miss Cervantes is a 74-year-old female with a past medical history of chronic painSecondary to what sounds like lumbar degenerative disc disease complicated with radiculopathy to the right leg. She has been seeing pain management for some time now had received numerous injections with no relief, medical therapy has not done much to improve her pain. Approximately 1 month ago she had surgery for what she tells me was a L2-L5 fusion, she says her radicular pain d own the right leg has improved greatly since then, she was in the hospital for approximately 4 days for that surgery, she was subsequent discharged home, she has had some residual right hip pain and right lower back pain since the surgery which is well-controlled with her home dose of oxycodone 5 mg every 6 hours. She had a home health at home and help from a few other people, she felt like she was doing well initially however for over the past months she has slowly declined. Today she presents to the emergency room and she was covered in stool, she was dehydrated. She denies any falls at home since her surgery. Her biggest complaint for me today is pain when she goes from laying to sitting or sitting to standing or trying to sit back down. She says when she is actually up and ambulating she feels she can do okay. SNF was contacted, they were able to accept her as a patient. Patient is hopeful for discharge for more therapy. She will be discharged today. She did have some elevated blood pressure here today this hospitalization highest was 197/73 however her discharge and blood pressure 159/66. I did speak with her briefly about some antihypertensives however she was not admitted to this hospital long enough for me to start anything. On chart review her pain medication regimen I believe is gabapentin 300 mg 3 times daily, oxycodone 5 mg every 4 to 6 hours, and acetaminophen. The plan from her pain management doctor was to slowly wean off of gabapentin and initiate pregabalin. I did not see any recent fill history for [facility]leball and so I do not believe this has been initiated yet. She would likely benefit from some antihypertensives which can be started at the nursing facility when they are monitoring her blood pressure daily. Time Spent with Patient Time attestation: Total time spent providing and/or coordinating discharge services: Exam Narrative Exam Narrative: General: Awake alert, no acute distress, laying in bed comfortably. HEENT: head atraumatic, normocephalic, moist mucous membranes Neck: supple no masses, no lymphadenopathy CVS: regular rate and rhythm, no murmurs or gallops Respiratory: clear to auscultation bilaterally, and attempts to listen to her lungs I tried to get her to sit up from laying down, she had a flare in her right lower back and she was unable to sit up without large amounts of assistance. GI: soft, nondistended, nontender, positive bowel sounds with no organomegaly Extremity: moves all extremities, no restrictions of movements, no calf tenderness, no edema Neuro: AOx3, CN II-VII intact. Moves all extremities in all planes of motion. Skin: dry, intact no rashes or lesions Constitutional Vital Signs, click to edit/add: Last Vital Signs Temp 98.2 F 12/23/24 15:09 Pulse 85 12/23/24 15:09 Resp 16 12/23/24 15:09 BP 159/66 H 12/23/24 15:09 Pulse Ox 96 12/23/24 15:09 O2 Del Method Room Air 12/23/24 15:09 DS: Data Data Completed and Pending Labs on day of discharge: Labs from last 24 hours 12/23/24 12/23/24 12/23/24 08:55 08:15 07:00 WBC 8.6 RBC 3.28 L Hgb 9.0 L Hct 28.3 L MCV 86.3 MCH 27.4 MCHC 31.8 RDW 16.0 H Plt Count 284 MPV 9.3 L Neut % (Auto) 77.8 H Lymph % (Auto) 12.6 L Noble % (Auto) 8.5 Eos % (Auto) 0.6 L Baso % (Auto) 0.3 Neut # (Auto) 6.7 H Lymph # (Auto) 1.1 L [place] # (Auto) 0.7 Eos # (Auto) 0.1 Baso # (Auto) 0.0 Abs Immat Gran (auto) 0.02 Imm/Tot Granulo (auto) 0.2 Sodium 141 Potassium 3.6 Chloride 103 Carbon Dioxide 26.9 Anion Gap 14.7 BUN 10.0 Creatinine 0.65 Est GFR ( Amer) >60 Est GFR (Non-Af Amer) >60 BUN/Creatinine Ratio 15.4 Glucose 116 H Calcium 8.8 Total Bilirubin 0.4 AST 15 ALT 19 Alkaline Phosphatase 183 H Troponin I High Sens 5.3 Total Protein 6.8 Albumin 2.8 L Globulin 4.0 Albumin/Globulin Ratio 0.7 Urine Color Lt. yellow Urine Clarity Clear Urine pH 6.0 Ur Specific [place] 1.010 Urine Protein Negative Urine Glucose (UA) Negative Urine Ketones 15 A Urine Occult Blood Negative Urine Nitrite Negative Urine Bilirubin Negative Urine Urobilinogen 0.2 Ur Leukocyte Esterase Negative Urine RBC 0-2 Urine WBC 0-2 A Ur Squamous Epith Cells Rare Urine Crystals None seen Urine Bacteria Trace A Urine Casts None seen Urine Mucus Trace A Stool Occult Blood Negative Discharge Plan Discharge Disposition: Xfer SNF Condition: Good Discharge Medications: New acetaminophen [Tylenol] 325 mg Tablet 650 mg PO Q4H PRN (Reason: Pain) 3 Days Qty: 18 0RF oxycodone-acetaminophen 5-325 mg tablet 1 tab PO Q4H PRN (Reason: back/hip pain) Qty: 18 0RF Continued buspirone 15 mg tablet 15 mg PO BID omeprazole 40 mg capsule,delayed release(DR/EC) 40 mg PO DAILY simvastatin 40 mg tablet 40 mg PO DAILY levothyroxine 75 mcg tablet 75 mcg PO DAILY escitalopram oxalate 20 mg tablet 20 mg PO DAILY naproxen sodium [Aleve] 220 mg capsule 220 mg PO BID PRN (Reason: pain) Changed gabapentin 600 mg tablet 300 mg PO TID Qty: 135 0RF Discontinued alprazolam 0.5 mg tablet 0.5 mg PO DAILY pregabalin [Lyrica] 50 mg capsule 50 mg PO TID Qty: 90 0RF Print Language: Armenian 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 Segal
--- NOTE | 2024-12-24 09:21 | SWNOTE1 ---
[facility] faxed H&P and discharge summary to [facility].
== END 2024-12-23 16:50 ==
LOC: ER 10:10 → MS 13:34
PROVIDERS: Admitting Provider Internal Medicine; Emergency Provider Student in an Organized Health Care Education/Training Program; PCP Family Medicine; Visit Provider Internal Medicine
DX: R19.7 Diarrhea, unspecified (principal); M51.362 Other intervertebral disc degeneration, lumbar region with discogenic back pain and lower extremity pain; E86.0 Dehydration; Z98.1 Arthrodesis status; G89.29 Other chronic pain; F17.210 Nicotine dependence, cigarettes, uncomplicated
CPT/HCPCS: 36415; 74177; 80053; 81001; 84484; 85025; 93005; 96372; 99285; 99406; G0328; G0378; J1650; Q9967